=== PATIENT | female | born 2000 | race Caucasian/White ===

== ENCOUNTER 2022-10-20 20:20 | Outpatient (REF) | payer OTHER, SELFPAY ==
[2022-10-23 16:09] LABS: Age Gdln ACOG Testing Note (.); IGP, rfx Aptima HPV ASCU Note (.)
== END 2022-10-20 20:21 | disposition home or self-care (01) ==
LOC: LAB 20:20
PROVIDERS: PCP Obstetrics & Gynecology; Visit Provider Obstetrics & Gynecology
DX: Z01.419 Encounter for gynecological examination (general) (routine) without abnormal findings (principal)
CPT/HCPCS: G0145

== ENCOUNTER 2022-12-20 08:44 | Outpatient (OUT) | payer OTHER, SELFPAY ==
[2022-12-20 10:04] LABS: Glucose 1 Hour 102 mg/dL
== END 2022-12-20 08:45 | disposition home or self-care (01) ==
LOC: LAB 08:44
PROVIDERS: PCP Obstetrics & Gynecology; Visit Provider Obstetrics & Gynecology
DX: Z34.92 Encounter for supervision of normal pregnancy, unspecified, second trimester (principal)
CPT/HCPCS: 36415; 82950

== ENCOUNTER 2023-01-12 08:31 | Outpatient (OUT) | payer OTHER, SELFPAY ==
--- NOTE | 2023-01-12 08:34 | US_ITS ---
The [address] [address] Patient Name: ANAND PERALES MRN: [id number] date: 2000 Sex: F Assigned Patient Location: US Current Patient Location: Accession/Order Number: [id number] Exam Date: 01/12/2023 08:35 Report Date: 01/12/2023 16:57 At the request of: SILAS VELIZ Procedure: US OB cervical length EXAMINATION: US OB cervical length HISTORY: HISTORY OF LABOR COMPARISON: No relevant comparison available. FINDINGS: position: Cephalic presentation, longitudinal lie Cervix: Closed, 4.2 cm US/US OB cervical length IMPRESSION: Closed cervix measuring 4.2 cm in length Electronically authenticated by: JESS NICOLE Date: 01/12/2023 16:57
== END 2023-01-12 08:32 | disposition home or self-care (01) ==
LOC: US 08:31
PROVIDERS: PCP Obstetrics & Gynecology; Visit Provider Obstetrics & Gynecology
DX: O09.899 Supervision of other high risk pregnancies, unspecified trimester (principal); Z3A.00 Weeks of gestation of pregnancy not specified
CPT/HCPCS: 76817

== ENCOUNTER 2023-01-26 10:23 | Outpatient (OUT) | payer OTHER, SELFPAY ==
--- NOTE | 2023-01-26 10:30 | US_ITS ---
[place] [id number] Patient Name: ANAND PERALES MRN: [id number] date: 2000 Sex: F Assigned Patient Location: US Current Patient Location: Accession/Order Number: [id number] Exam Date: 01/26/2023 10:30 Report Date: 01/26/2023 17:31 At the request of: SILAS VELIZ Procedure: US OB cervical length EXAMINATION: US OB cervical length HISTORY: HISTORY OF DELIVERY COMPARISON: 01/12/2023 FINDINGS: position: Cephalic presentation, longitudinal lie Cervix: 4.4 cm, closed US/US OB cervical length IMPRESSION: Closed cervix measuring 4.4 cm in length Electronically authenticated by: JESS NICOLE Date: 01/26/2023 17:31
== END 2023-01-26 10:24 | disposition home or self-care (01) ==
LOC: US 10:24
PROVIDERS: PCP Obstetrics & Gynecology; Visit Provider Obstetrics & Gynecology
DX: O09.899 Supervision of other high risk pregnancies, unspecified trimester (principal); Z3A.00 Weeks of gestation of pregnancy not specified
CPT/HCPCS: 76817

== ENCOUNTER 2023-02-01 11:30 | Outpatient (OUT) | payer OTHER, SELFPAY ==
[2023-02-01 11:41] VITALS: BP 124/75; PULSE 111
[2023-02-01 12:05] LABS: Bilirubin Urine NEGATIVE (NEGATIVE); Blood Urine TRACE-I (NEGATIVE); Clarity Urine CLEAR (CLEAR); Color Urine LT. YELLOW (YELLOW); Glucose Urine UA NEGATIVE (NEGATIVE); Ketones Urine NEGATIVE (NEGATIVE); Leukocyte Esterase Urine NEGATIVE (NEGATIVE); Nitrite Urine NEGATIVE (NEGATIVE); Protein Urine NEGATIVE (NEG/TRACE); Urobilinogen Urine 0.2 EU/dL (0.2-1.0)
[2023-02-01 12:09] LABS: Urine Microscopic Indicated YES
[2023-02-01 12:13] LABS: WBC Urine NONE SEEN #/HPF (NONE SEEN)
[2023-02-01 12:14] LABS: Bacteria Urine NONE SEEN #/HPF (NONE SEEN); Cast Seen? NONE SEEN #/LPF (NONE SEEN); Crystals Seen? None Seen #/HPF (None Seen); Mucus Urine TRACE (NONE SEEN); Squamous Epithelial Cell Urine RARE #/LPF (NONE/RARE); Urine Culture Indicated NO
--- NOTE | 2023-02-01 12:38 | US_ITS ---
[address] [address] Patient Name: ANAND PERALES MRN: [id number] date: 2000 Sex: F Assigned Patient Location: [facility] Current Patient Location: [facility] [place] Accession/Order Number: [id number] Exam Date: 02/01/2023 12:50 Report Date: 02/02/2023 02:20 At the request of: DOUG MENDOZA Procedure: US OB cervical length EXAMINATION: US OB placenta, US OB cervical length HISTORY: Bleeding COMPARISON: Ultrasound OB cervical length 01/26/2023 FINDINGS: PLACENTA: Posterior, grade 1. No evidence of abruption or subchorionic hematoma. No previa. CERVIX LENGTH: 4.1 cm in length, closed. HEART RATE: 154 bpm OTHER: None. GA: 30 weeks 4 days OTF: 04/08/2023 US/US OB cervical length IMPRESSION: 1. Single live intrauterine . 2. Unremarkable placenta. No acute or suspicious findings to account for patient's symptoms. 3. Closed cervix 4.1 cm in length. Electronically authenticated by: BILLIE SMITH Date: 02/02/2023 02:20
--- NOTE | 2023-02-01 12:38 | US_ITS ---
[address] [address] Patient Name: ANAND PERALES MRN: [id number] date: 2000 Sex: F Assigned Patient Location: [facility] [place] [facility] [place]Order Number: [id number] Exam Date: 02/01/2023 12:50 Report Date: 02/02/2023 02:20 At the request of: DOUG MENDOZA Procedure: US OB placenta EXAMINATION: US OB placenta, US OB cervical length HISTORY: Bleeding COMPARISON: Ultrasound OB cervical length 01/26/2023 FINDINGS: PLACENTA: Posterior, grade 1. No evidence of abruption or subchorionic hematoma. No previa. CERVIX LENGTH: 4.1 cm in length, closed. HEART RATE: 154 bpm OTHER: None. GA: 30 weeks 4 days OTF: 04/08/2023 US/US OB placenta IMPRESSION: 1. Single live intrauterine . 2. Unremarkable placenta. No acute or suspicious findings to account for patient's symptoms. 3. Closed cervix 4.1 cm in length. Electronically authenticated by: BILLIE SMITH Date: 02/02/2023 02:20
--- NOTE | 2023-02-01 12:38 | US_ITS ---
[address] [address] Patient Name: ANAND PERALES MRN: [id number] date: 2000 Sex: F Assigned Patient Location: [facility] Current Patient Location: Accession/Order Number: [id number] Exam Date: 02/01/2023 12:50 Report Date: 02/02/2023 02:16 At the request of: DOUG MENDOZA Procedure: US OB BPP w non-stress EXAMINATION: US OB BPP w non-stress HISTORY: Bleeding COMPARISON: Ultrasound OB cervical length 01/12/2023 TECHNIQUE: Ultrasound biophysical profile was performed in the radiology department. BREATHING MOVEMENTS: 2.0 GROSS BODY MOVEMENTS: 2.0 TONE: 2.0 QUALITATIVE AMNIOTIC FLUID VOLUME: 2.0 PRESENTATION: BREECH HEART RATE: 154.3 bpm bpm. AMNIOTIC FLUID VOLUME: 18.5 cm GESTATIONAL AGE: 30 weeks 4 days CONCLUSION: Total biophysical profile score 8.0. Electronically authenticated by: BILLIE SMITH Date: 02/02/2023 02:16
--- NOTE | 2023-02-01 13:13 | P.PN_ITS ---
Progress Note: Subjective Subjective Interval history: S/P DISCHARGE THURSDAY AFTER VAGINAL DELIVERY. SENT HOME ON NIFEDIPINE 10 MG TID. RETURNED TODAY FOR BLOOD PRESSURE CHECK. HAS HEADACHER 9 OUT OF 10. IMPROVED WITH MOTRIN. P:C RATIO .3. BLOOD PRESSURE 140'S 90's. HAVE SWITCHED HER BACK TO LABETALOL BECAUSE DOES NOT GET HEADACHES ON LABETALOL AND BELIEVES NIFEDIPINE WAS INITIATING HEADACHE. ALSO, BETTER BLOOD PRESSURE CONTROL ON LABETALOL. HAS SIGNIFICANT DEPENDENT EDEMA WHICH AGAIN CAN COME FROM NIFEDIPINE. EDEMA IMPROVED FROM YESTERDAY. WILL START 24 HOUR URINE FOR TOTAL PROTEIN AND CREATININE CLEARANCE TO DETERMINE IF HAS SIGNIFICANT PROTEINURIA REQUIRING NEPHROLOGY CONSULT IF PIH WORKUP NOW IS NEGATIVE. REFLEXES NORMAL. VISION NORMAL. NO RUQ PAIN. NO NON DEPENDENT EDEMA. IS PUMPING AND BABY GETTING EXCLUSIVELY BREAST MILK. Exam Constitutional Vital Signs, click to edit/add: Last Vital Signs Pulse 111 H 02/01/23 11:41 BP 124/75 02/01/23 11:41 Documenting provider has reviewed patient's vital signs: yes Common normals: no apparent distress, oriented x3, healthy appearing, alert and well nourished General appearance: cooperative and comfortable Nutritional appearance: overweight HENID Common normals: normocephalic and head/scalp atraumatic Eye Pupil: PERRL and accommodation reflex normal Neck & C-Spine Common normals: full ROM and supple Respiratory Common normals: normal respiratory effort Cardio Common normals: regular rate and regular rhythm GI Common normals: Normal to inspection, nondistended, normoactive bowel sounds present Common normals: no CVA tenderness Extremity Common normals: full ROM and no calf tenderness General: edema (DEPENDENT, SIGNIFICANT BUT IMPROVED SINCE YESTERDAY) Neuro Common normals: CN's II-XII intact bilaterally, moves all extremities, no focal motor deficits and no sensory deficits noted Psych Common normals: mental status grossly normal, thought process normal, cooperative and affect normal Progress Note: Objective Labs Labs: Urine 02/01/23 Range/Units 11:50 Urine Color Lt. yellow (YELLOW) Urine Clarity Clear (CLEAR) Urine pH 7.0 (5.0-9.0) Ur Specific [place] 1.010 (1.005-1.025) Urine Protein Negative (NEG/TRACE) mg/dL Urine Glucose (UA) Negative (NEGATIVE) mg/dL
== END 2023-02-01 13:40 | disposition home or self-care (01) ==
LOC: FBCO 11:35 → FBC 11:35
PROVIDERS: PCP Obstetrics & Gynecology; Visit Provider Obstetrics & Gynecology
DX: O26.853 Spotting complicating pregnancy, third trimester (principal); Z3A.30 30 weeks gestation of pregnancy
CPT/HCPCS: 59025; 76815; 76817; 76818; 80053; 81001; 83615; 84550; 85730

== ENCOUNTER 2023-02-09 12:43 | Outpatient (OUT) | payer OTHER, SELFPAY ==
--- NOTE | 2023-02-09 12:50 | US_ITS ---
[address] [address] Patient Name: ANAND PERALES MRN: [id number] date: 2000 Sex: F Assigned Patient Location: US Current Patient Location: US Accession/Order Number: [id number] Exam Date: 02/09/2023 13:00 Report Date: 02/09/2023 16:38 At the request of: SILAS VELIZ Procedure: US OB growth EXAMINATION: US OB growth HISTORY: SIZE INCONSISTENT WITH DATES COMPARISON: No relevant comparison available. FINDINGS: Heart Rate: 161.0 bpm Amniotic Fluid Volume: 18.0 cm Number: 1.0 Position: Cephalic presentation, longitudinal lie Maximum Vertical Pocket: 4.4 cm cm 4.9 cm cm 4.4 cm cm 4.3 cm cm BIOMETRY: BPD: 8.2 cm cm; 33 weeks 1 days; 80% HC: 30.0 cmcm; 33 weeks 2 days, 55% AC: 28.9 cm cm; 32 weeks 6 days, 80% FL: 6.2 cm cm; 32 weeks 2 days; 51.0 % % EFW: 2039.5 grams, 4 lbs. 8 oz., 73% FL/AC: 21.6 FL/BPD: 75.6 HC/AC: 1.0 GESTATIONAL AGE: Age by EDC: 31 weeks 5 days OTF by EDC: 04/08/2023 Age by US: 32 weeks 6 days OTF by US: 03/31/2023 US/US OB growth IMPRESSION: Normal interval growth Electronically authenticated by: JESS NICOLE Date: 02/09/2023 16:38
== END 2023-02-09 12:44 | disposition home or self-care (01) ==
LOC: US 12:43
PROVIDERS: PCP Obstetrics & Gynecology; Visit Provider Obstetrics & Gynecology
DX: O26.843 Uterine size-date discrepancy, third trimester (principal); Z3A.32 32 weeks gestation of pregnancy
CPT/HCPCS: 76816

== ENCOUNTER 2023-02-25 13:01 | Outpatient (OUT) | payer OTHER, SELFPAY ==
--- NOTE | 2023-02-25 13:10 | US_ITS ---
The [address] [address] Patient Name: ANAND PERALES MRN: [id number] date: 2000 Sex: F Assigned Patient Location: US Current Patient Location: Accession/Order Number: [id number] Exam Date: 02/25/2023 13:10 Report Date: 02/25/2023 16:51 At the request of: SILAS VELIZ Procedure: US OB cervical length EXAMINATION: US OB cervical length HISTORY: HISTORY OF PRE TERM DELIVERY COMPARISON: No relevant comparison available. FINDINGS: position: Cephalic Cervix: 3.4 cm, closed US/US OB cervical length IMPRESSION: The cervix measuring 3.4 cm in length Electronically authenticated by: JESS NICOLE Date: 02/25/2023 16:51
== END 2023-02-25 13:02 | disposition home or self-care (01) ==
LOC: US 13:02
PROVIDERS: PCP Obstetrics & Gynecology; Visit Provider Obstetrics & Gynecology
DX: O09.899 Supervision of other high risk pregnancies, unspecified trimester (principal)
CPT/HCPCS: 76817

== ENCOUNTER 2023-03-09 19:40 | Observation (INO) | payer OTHER, SELFPAY ==
[2023-03-09 19:54] VITALS: BP 127/68; PULSE 100
[2023-03-09 20:05] VITALS: TEMP 36.3
[2023-03-09 20:31] LABS: Bilirubin Urine NEGATIVE (NEGATIVE); Blood Urine NEGATIVE (NEGATIVE); Clarity Urine CLEAR (CLEAR); Color Urine LT. YELLOW (YELLOW); Glucose Urine UA NEGATIVE (NEGATIVE); Ketones Urine NEGATIVE (NEGATIVE); Leukocyte Esterase Urine SMALL (NEGATIVE); Nitrite Urine NEGATIVE (NEGATIVE); Protein Urine NEGATIVE (NEG/TRACE); Specific Gravity Urine <=1.005 (1.005-1.025); Urobilinogen Urine 0.2 EU/dL (0.2-1.0)
[2023-03-09 20:39] VITALS: BP 117/60; PULSE 83
[2023-03-09 20:39] LABS: Urine Microscopic Indicated YES
[2023-03-09 20:41] LABS: Bacteria Urine NONE SEEN #/HPF (NONE SEEN); Cast Seen? NONE SEEN #/LPF (NONE SEEN); Crystals Seen? None Seen #/HPF (None Seen); Mucus Urine NONE SEEN (NONE SEEN); RBC Urine 0-2 #/HPF (0-2); Squamous Epithelial Cell Urine RARE #/LPF (NONE/RARE); Urine Culture Indicated NO
[2023-03-09 21:00] LABS: Creatinine Urine Random 18.45 mg/dL (20.00-300.00); Protein Creatinine Ratio Urine 0.33; Total Protein Urine Random <6.0 mg/dL (<=11.9)
[2023-03-09 22:25] LABS: Basophils Percent Auto 0.3 % (0.2-2.0); Eosinophils Absolute Auto 0.1 10^3/uL (0.0-0.7); Eosinophils Percent Auto 0.8 % (0.9-7.0); Hematocrit 31.3 % (36.0-48.0); Hemoglobin 10.3 g/dL (12.0-16.0); Immature Granulocytes Abs Auto 0.04 10^3/uL (0.00-0.03); Immature Granulocytes Pct Auto 0.6 % (0.0-0.5); Lymphocytes Absolute Auto 1.1 10^3/uL (1.2-3.8); Lymphocytes Percent Auto 17.7 % (20.5-60.0); Mean Corpuscular HGB Conc 32.9 g/dL (29.9-35.2); Mean Corpuscular Hemoglobin 30.8 pg (26.7-34.0); Mean Corpuscular Volume 93.7 fL (81.0-99.0); Mean Platelet Volume 9.5 fL (9.5-13.5); Monocytes Absolute Auto 0.7 10^3/uL (0.3-0.8); Monocytes Percent Auto 10.4 % (1.7-12.0); Neutrophils Absolute Auto 4.4 10^3/uL (1.4-6.5); Neutrophils Percent Auto 70.2 % (43.0-75.0); Platelet Count 225 10^3/uL (150-450); Red Blood Count 3.34 10^6/uL (4.20-5.40); Red Cell Distribution Width 13.3 % (11.0-15.0); White Blood Count 6.3 10^3/uL (4.0-11.0)
[2023-03-09 22:35] LABS: Uric Acid 3.2 mg/dL (2.6-6.0)
[2023-03-09 22:38] LABS: Alanine Aminotransferase 21 U/L (14-59); Albumin Globulin Ratio 0.6; Albumin Level 2.5 g/dL (3.4-5.0); Alkaline Phosphatase 101 U/L (46-116); Anion Gap 10.5; Aspartate Amino Transferase 28 U/L (15-37); BUN Creatinine Ratio 6.8; Bilirubin Total 0.2 mg/dL (0.2-1.0); Calcium 9.1 mg/dL (8.5-10.1); Carbon Dioxide 24.9 mmol/L (21.0-32.0); Chloride 104 mmol/L (98-107); Estimated GFR (African America >60 (>=60); Estimated GFR (Non-African Ame >60 (>=60); Globulin 4.1 g/dL; Glucose 65 mg/dL (74-106); Potassium 3.4 mmol/L (3.5-5.1); Sodium 136 mmol/L (136-145); Total Protein 6.6 g/dL (6.4-8.2)
[2023-03-09 23:13] VITALS: BP 118/70; PULSE 81; RESP 18; TEMP 36.7
[2023-03-09] MEDS: ACETAMINOPHEN 500 MG TABLET 1000 MG PO (23:17)
[2023-03-09] MEDS: ZOLPIDEM TARTRATE 5 MG TABLET PO (23:17)
[2023-03-10 04:25] VITALS: BP 108/56; PULSE 88; RESP 16; TEMP 36.6
--- NOTE | 2023-03-10 07:26 | W.PC.ACHO ---
Registration Status: ADM [place] Primary Language: Preferred Language: Report given 0705 to Tarsha Sung RN. Active Medications Generic Name Dose Route Start Last Admin Trade Name Freq PRN Reason Stop Dose Admin Acetaminophen 1,000 mg 03/09/23 21:13 03/09/23 23:17 Acetaminophen 500 Mg Tablet PO 1,000 mg Q4H PRN Administration Pain Zolpidem Tartrate 5 mg 03/09/23 21:13 03/09/23 23:17 Zolpidem Tartrate 5 Mg Tablet PO 5 mg HS PRN Administration Sleep IV Insertion/Site Date of IV Line Insertion [ 03/09/23 Short PIV (<1.75 in) 20g right Hand] IV Insertion Time [Short PIV ( 22:00 <1.75 in) 20g right Hand]
--- NOTE | 2023-03-10 08:36 | US_ITS ---
[address] [address] Patient Name: ANAND PERALES MRN: [id number] date: 2000 Sex: F Assigned Patient Location: [facility] Current Patient Location: Accession/Order Number: [id number] Exam Date: 03/10/2023 08:45 Report Date: 03/10/2023 10:22 At the request of: SILAS VELIZ Procedure: US OB growth EXAMINATION: US OB growth HISTORY: h/o delivery, severe PRE-E COMPARISON: Ultrasound OB growth 02/09/2023 FINDINGS: Heart Rate: 135.7 bpm Number: 1.0 Position: CEPHALIC Amniotic Fluid Volume: 11.8 cm Maximum Vertical Pocket: 4.0 cm BIOMETRY: BPD: 9.3 cm cm; 37 weeks 5 days; 94% HC: 34.3 cmcm; 39 weeks 4 days ; 95% AC: 32.4 cm cm; 36 weeks 2 days; 73% FL: 6.8 cm cm; 34 weeks 6 days; 20% EFW: 2938.8 grams; 67% FL/AC: 20.9 FL/BPD: 73.1 HC/AC: 1.1 GESTATIONAL AGE: Age by EDC: 35 weeks 6 days OTF by EDC: 04/08/2023 Age by US: 37 weeks 1 day OTF by US: 03/30/2023 US/US OB growth IMPRESSION: 1. Single live intrauterine with growth detailed above. Electronically authenticated by: BILLIE SMITH Date: 03/10/2023 10:22
--- NOTE | 2023-03-10 08:36 | US_ITS ---
[place] [id number] Patient Name: ANAND PERALES MRN: [id number] date: 2000 Sex: F Assigned Patient Location: [facility] Current Patient Location: [facility] Accession/Order Number: [id number] Exam Date: 03/10/2023 08:45 Report Date: 03/10/2023 10:23 At the request of: SILAS VELIZ Procedure: US OB BPP wo non-stress EXAMINATION: US OB BPP wo non-stress HISTORY: h/o delivery, severe PRE-E COMPARISON: Ultrasound OB growth 02/09/2023 TECHNIQUE: Ultrasound biophysical profile was performed in the radiology department. BREATHING MOVEMENTS: 2.0 GROSS BODY MOVEMENTS: 2.0 TONE: 2.0 QUALITATIVE AMNIOTIC FLUID VOLUME: 2.0 PRESENTATION: CEPHALIC HEART RATE: 135.7 bpm bpm. AMNIOTIC FLUID VOLUME: 11.8 cm GESTATIONAL AGE: 35 weeks 6 days CONCLUSION: Total biophysical profile score 8.0. Electronically authenticated by: BILLIE SMITH Date: 03/10/2023 10:23
[2023-03-10] MEDS: BETAMETHASONE ACE/BETAMETHASONE SOD PHOS 30 MG/5 ML 12 MG IM (08:57)
--- OUTSIDE RECORDS SUMMARY | 2023-04-14 19:24 | XMS_ITS | CCD ---
Author Name Unknown Address [address] [address] [place] [address] Organization [facility] Care Team Providers Care Leak Inspector Name Role Phone Unavailable Primary Care Provider Unavailabl Baljit Grant Primary Care Physician Baljit Watts MD Primary Care Provider JC ., DR ROSEN Admitting Unavailable JC ., DR ROSEN Attending Unavailable JC ., DR ROSEN Consulting Unavailable ZieberBillie Consulting Unavailable REQUEST, DR MCGUIRE LISTED Consulting Unavaila ble JC ., DR ROSEN Consulting Unavailable JC ., DR ROSEN Admitting [facility] Primary Care Unavailable JC ., DR ROSEN Attending Unavailable ELCO, KELL Attending Unavailable Jc, Dr. Marco A Zavaleta Referring Unavail able UNKNOWN, PCP Primary Care Unavailable UNKNOWN, PCP Primary Care Unavailable Jc, Dr. Marco A Zavaleta Referring Unavail able Danielle, Dr. Jess Agee Attending Unav ailable Nakul Cannon Attending Unavailable Ozzy Martinez Attending Unavailable Ozzy Martinez Admitting Unavailable LATANYA GUNN Attending Unavailable VELIA, LATANYA Attending Unavailable LATANYA GUNN Attending Unavailable Medications Current Medications Medication Drug Class(es) Dates Sig (Normalized) Sig (Original) acetaminophen 325 mg oral tablet (1 source) Start: 04-26-2020 take 650 mg by mouth every six hours as needed for pain, then take 4000 mg by mouth every twenty-four hours as needed for pain 650 mg, Oral, EVERY 6 HOURS PRN, Pain Mild (1-3), Starting Vilma 04/26/20 at 0421 Maximum dose of acetaminophen is 4000 mg from all sources in 24 hours. amoxicillin 875 mg oral tablet (5 sources) Penicillin-class Antibacterial Start: 10-14-2022 End: 10-24-2022 take 1 tablet by mouth twice daily amoxicillin 875 mg Tab 875 mg = 1 tab(s), Oral, BID, X 10 day(s), # 20 tab(s), Refills(s) 0, Pharmacy: [facility]/pharmacy #[id number], 164, cm, 10/14/22 12:30:00 EDT, Height/Length Dosing, 66, kg, 10/14/22 12:30:00 EDT, Weight Dosing Start Date: 10/14/22 Stop Date: 10/24/22 Status: Ordered Start: 10-31-2021 take 1 capsule by [facility] every twelve hours amoxicillin 500 mg Cap 500 mg = 1 cap(s), Oral, q12hr, # 20 cap(s), Refills(s) 0, Pharmacy: [facility]/pharmacy #[id number], 165, cm, 10/31/21 12:19:00 EDT, Height/Length Dosing, 63, kg, 10/31/21 12:19:00 EDT, Weight Dosing Start Date: 10/31/21 Status: Ordered aspirin 81 mg chewable tablet (1 source) Platelet Aggregation Inhibitor, Nonsteroidal Anti-inflammatory Drug Start: 01-31-2023 take 1 tablet by mouth once daily aspirin 81 mg Chew Tab 81 mg = 1 tab(s), Oral, Daily, # 30 tab(s), Refills(s) 0 Start Date: 01/31/23 Status: Ordered calcium chloride 0.0014 meq/ml / potassium chloride 0.004 meq/ml / sodium chloride 0.103 meq/ml / sodium lactate 0.028 meq/ml injectable solution (2 sources) Start: 04-26-2020 lactated ringers infusion Start: 04-25-2020 End: 04-26-2020 Intravenous, at 125 mL/hr, C ONTINUOUS, Starting 04/25/20 at 1615 1 ml diphenhydrAMINE hydrochloride 50 mg/ml cartridge (1 source) Histamine-1 Receptor Antagonist Start: 04-26-2020 25 mg, Intravenous, EVERY 6 HOURS PRN, Itching, Hives, Starting Vilma 04/26/20 at 0421, docusate sodium 100 mg oral capsule (1 source) Start: 04-26-2020 take 100 mg by mouth twice daily as needed for constipation 100 mg, Oral, 2 TIMES DAILY PRN, Constipation, Starting Vilma 04/26/20 at 0421 Do not crush or break. ferrous sulfate 325 mg oral tablet (2 sources) Start: 04-28-2020 take 1 tablet by mouth twice daily at mealtime ferrous sulfate (IRON 325) 325 (65 Fe) MG tablet Take 1 tablet by mouth 2 times daily (with meals) 30 tablet 3 04/28/2020 Active Start: 04-26-2020 take 325 mg by mouth twice daily at mealtime 325 mg, Oral, 2 TIMES DAILY WITH MEALS, First dose on Vilma 04/26/20 at 0800 Start if Hgb less than 10. HYDROmorphone (DILAUDID) injection 0.25 mg (1 source) Start: 04-26-2020 HYDROmorphone (DILAUDID) injection 0.25 mg ibuprofen 600 mg oral tablet (2 sources) Nonsteroidal Anti-inflammatory Drug Start: 04-28-2020 take 1 tablet by mouth every six hours ibuprofen (ADVIL;MOTRIN) 600 MG tablet Take 1 tablet by mouth every 6 hours 120 tablet 3 04/28/2020 Active Start: 04-26-2020 take 600 mg by mouth every six hours 600 mg, Oral, EVERY 6 HOURS, First dose on Vilma 04/26/20 at 0445 Do not crush or chew. lansinoh lanolin ointment (1 source) Start: 04-26-2020 Topical, EVERY 1 HOUR PRN, Dry Skin, nipple discomfort, Starting Vilma 04/26/20 at 0421, lisdexamfetamine dimesylate 40 mg oral capsule (5 sources) Central Nervous System Stimulant Start: 01-31-2023 take 1 capsule by mouth once daily in the morning Vyvanse 40 mg oral capsule 40 mg = 1 cap(s), Oral, qAM, Refills(s) 0 Start Date: 01/31/23 Status: Ordered Start: 04-01-2020 take 1 capsule by mo uth once daily in the morning Vyvanse 60 mg oral capsule 60 mg = 1 cap(s), Oral, qAM, Refills(s) 0 Start Date: 04/01/20 Status: Ordered 24 hr NIFEdipine 30 mg extended release oral tablet (2 sources) Dihydropyridine Calcium Channel Scot Start: 04-29-2020 take 1 tablet by mouth once daily NIFEdipine (ADALAT CC) 30 MG extended release tablet Take 1 tablet by mouth daily 30 tablet 3 04/29/2020 Active Start: 04-26-2020 NIFEdipine (KS OCARDIA XL) extended release tablet 30 mg 2 ml ondansetron 2 mg/ml injection (1 source) Serotonin-3 Receptor Antagonist Start: 04-26-2020 4 mg, Intravenous, EVERY 6 HOURS PRN, Nausea, Starting Vilma 04/26/20 at 0421, oxyCODONE (1 source) Opioid Agonist Start: 04-26-2020 oxyCODONE (ROXICODONE) immediate release tablet 5 mg pantoprazole (1 source) Proton Pump Inhibitor Start: 01-31-2023 pantoprazole Refills(s) 0 Start Date: 01/31/23 Status: Ordered polyethylene glycol 3350 03205 mg powder for oral solution (1 source) Osmotic Laxative Start: 04-27-2020 polyethylene glycol (GLYCOLAX) packet 17 g PreNata 29-1 MG CHEW (1 source) take 1 tablet by mouth once daily PreNata 29-1 MG CHEW Take 1 tablet by mouth daily 0 Active Multivitamins (1 source) Start: 01-31-2023 take 1 tablet by mouth once daily Multivitamins 1 tab(s), Oral, Daily, Refill(s) 0 Start Date: 01/31/23 Status: Ordered Vit-Fe Fumarate-FA ( VITAMIN) 27-1 MG TABS tablet (1 source) Start: 04-28-2020 take 1 tablet by mouth once daily Vit-Fe Fumarate-FA ( VITAMIN) 27-1 MG TABS tablet Take 1 tablet by mouth daily 30 tablet 0 04/28/2020 Active vitamin 27-1 MG tablet 1 tablet (1 source) Start: 04-26-2020 take 1 tablet by mouth once daily 1 tablet, Oral, DAILY, First dose on Vilma 04/26/20 at 0900 Begin when normal bowel activity resumes. progesterone 200 mg vaginal suppository (1 source) Start: 01-31-2023 progesterone 200 mg vaginal suppository 200 mg = 1 supp, Vaginal, Daily, # 30 supp, Refills(s) 0 Start Date: 01/31/23 Status: Ordered simethicone 80 mg chewable tablet (1 source) Start: 04-26-2020 take 80 mg by mouth every six hours as needed 80 mg, Oral, EVERY 6 HOURS PRN, Cramping, Flatulence, Starting Vilma 04/26/20 at 0421, 3 ml sodium chloride 9 mg/ml injection (4 sources) Start: 04-26-2020 10 mL, Intravenous, EVERY 12 HOURS SCHEDULED (2 times per day), First dose on Vilma 04/26/20 at 0900, Start: 04-26-2020 take 10 mL intravenous route o nce 10 mL, Intravenous, PRN, Line Care, Starting Vilma 04/26/20 at 0421 After every IV line use Start: 04-26-2020 End: 04-27-2020 sodium chloride flush 0.9 % injection 10 mL sulfamethoxazole 800 mg / trimethoprim 160 mg oral tablet (1 source) Dihydrofolate Reductase Inhibitor Antibacterial, Sulfonamide Antimicrobial Start: 10-31-2021 End: 11-10-2021 Bactrim D.S. 800 mg-160 mg Tab 1 tab(s), Oral, BID for 10 day(s), 20 tab(s), Refill(s) 0, [facility]/pharmacy #[id number], 165, cm, 10/31/21 12:19:00 EDT, Height/Length Dosing, 63, kg, 10/31/21 12:19:00 EDT, Weight Dosing Start Date: 10/31/21 Stop Date: 11/10/21 Status: Ordered Completed/Discontinued Medications Medication Drug Class(es) Dates Sig (Normalized) Sig (Original) betamethasone 3 mg/ml / betamethasone acetate 3 mg/ml injectable suspension (1 source) Corticosteroid Start: 04-25-2020 End: 04-25-2020 betamethasone acetate-betamethason e sodium phosphate (CELESTONE) injection 12 mg Start: 04-25-2020 End: 04-25-2020 betamethasone acetate-betame thasone sodium phosphate (CELESTONE) injection 12 mg ceFAZolin 2000 mg injection (2 sources) Cephalosporin Antibacterial Start: 04-26-2020 End: 04-26-2020 ceFAZolin (ANCEF) 2 g in dextrose 4 % 100 mL IVPB (premix) Start: 04-25-2020 End: 04-26-2020 ceFAZolin (ANCEF) 2-4 GM/100 ML-% IVPB (premix) SOLN citric acid 66.8 mg/ml / sodium citrate 100 mg/ml oral solution (2 sources) Calculi Dissolution Agent, Anti-coagulant Start: 04-26-2020 End: 04-25-2020 citric acid-sodium citrate (BICITRA) solution 30 mL Start: 04-25-2020 End: 04-25-2020 citric acid-sodium citrate ( BICITRA) 500-334 MG/5ML solution 1 ml ketorolac tromethamine 30 mg/ml cartridge (2 sources) Nonsteroidal Anti-inflammatory Drug, Cyclooxygenase Inhibitor Start: 04-26-2020 End: 04-27-2020 30 mg, Intravenous, EVERY 6 HOURS, First dose on Vilma 04/26/20 at 0445, For 24 hours Do not administer for more than 5 days. First dose should be administered 6 hours after anesthesia's administered dose in OR or PACU. Do NOT give with ibuprofen. Start: 04-26-2020 End: 04-26-2020 ketorolac (TORADOL) injectio n 60 mg 100 ml magnesium sulfate 40 mg/ml injection (2 sources) Start: 04-25-2020 End: 04-25-2020 4 g, Intravenous, at 300 mL/ hr, Administer over 20 Minutes, ONCE, 04/25/20 at 1615, For 1 dose Pre-Infusion: Assess baseline vital signs, breath sounds, oxygen saturation level, intake and output, and neurologic status (deep tendon reflexes, presence or absence of clonus, and level of consciousness (LOC). Vitals to include baseline temperature. Temperature to be reassessed every 4 hours if membranes are intact or every 2 hours if membranes have ruptured. Loading Dose/Infusion: Stay with the patient during the loading dose to monitor for adverse drug reactions. - Monitor pulse oximetry continuously throughout the infusion - Monitor vital signs, deep tendon reflexes, and LOC every 15 minutes for one hour, then every 30 minutes for one hour, then hourly while infusing Notify care provider immediately of absent deep tendon reflexes, a urine output of less than 30 mL/hour, respirations of less than 12 breaths/minute, or an oxygen saturation level of less than 90%. Start: 04-25-2020 End: 04-26-2020 2 g/hr (50 mL/hr), Intraveno us, at 50 mL/hr, CONTINUOUS, Starting 04/25/20 at 1615, For 48 hours Pre-Infusion: Assess baseline vital signs, breath sounds, oxygen saturation level, intake and output, and neurologic status (deep tendon reflexes, presence or absence of clonus, and level of consciousness (LOC), presence of headaches or visual disturbances, presence or absence of epigastric pain. Vitals to include baseline temperature. Temperature to be reassessed every 4 hours if membranes are intact or every 2 hours if membranes have ruptured. Loading Dose/Infusion: Stay with the patient during the loading dose to monitor for adverse drug reactions. - Monitor pulse oximetry continuously throughout the infusion - Monitor vital signs, deep tendon reflexes, and LOC every 15 minutes for one hour, then every 30 minutes for one hour, then hourly while infusing Notify care provider immediately of absent deep tendon reflexes, a urine output of less than 30 mL/hour, respirations of less than 12 breaths/minute, or an oxygen saturation level of less than 90%. oxytocin (PITOCIN) 30 units in 500 mL infusion Override Pull (1 source) Start: 04-25-2020 End: 04-26-2020 oxytocin (PITOCIN) 30 units in 500 mL infusion Override Pull Oxytocin-Sodium Chloride 30-0.9 UT/500ML-% SOLN (1 source) Start: 04-26-2020 End: 04-26-2020 Oxytocin-Sodium Chloride 30-0.9 UT/500ML-% SOLN prednisoLONE acetate 10 mg/ml ophthalmic suspension (4 sources) Corticosteroid Start: 11-07-2021 prednisoLONE a cetate (PRED FORTE, ECONOPRED PLUS) 1 % ophthalmic suspension Use 1 Drop in both eyes every hour. 10 mL 1 11/07/2021 Active Start: 11-01-2021 prednisoLONE a cetate (PRED FORTE, ECONOPRED PLUS) 1 % ophthalmic suspension Use 1 Drop in both eyes four times daily. 0 11/01/2021 Active Comment on above: Use 1 Drop in both e yes four times daily. Use 1 Drop in both e yes every hour. predniSONE 20 mg oral tablet (3 sources) Start: 11-01-2021 take 1 tablet by mouth once daily predniSONE (DELTASONE) 20 mg tablet Take 20 mg by mouth once daily. 0 11/01/2021 Active Start: 11-01-2021 End: 11-06-2021 take 3 tablets by mouth once daily predniSONE 20 mg Tab 60 mg = 3 tab(s), Oral, Daily, X 5 day(s), # 15 tab(s), Refills(s) 0, Pharmacy: [facility]/pharmacy #[id number], 165, cm, 11/01/21 8:11:00 EDT, Height/Length Dosing, 63, kg, 11/01/21 8:11:00 EDT, Weight Dosing Start Date: 11/01/21 Stop Date: 11/06/21 Status: Ordered Comment on above: Take 20 mg by mouth once daily. tobramycin 3 mg/ml ophthalmic solution (2 sources) Aminoglycoside Antibacterial Start: 10-30-2021 take 0.3 drop(s) into the eye(s) three times daily tobramycin (TOBREX) 0.3 % ophthalmic solution Use 0.3 Drops in both eyes three times daily. 0 10/30/2021 Active Comment on above: Use 0.3 Drops in bot h eyes three times daily. Problems Problem Classification Problem Date Documented Da te Episodic/Chronic Allergic reactions (2 sources) Allergic disposition; Translations: [Allergy, unspecified, initial encounter] Onset: 11-01-2021 Episodic Deficiency and other anemia (2 sources) Anemia due to blood loss; Translations: [Acute on chronic blood loss anemia] Onset: 04-27-2020 04-27-2020 Chronic Deficiency and other anemia (5 sources) Iron deficiency anemia 01-20-2019 Episodic E Codes: Struck by; against (1 source) Struck by falling object; Translations: [Other cause of strike by thrown, projected or falling object, initial encounter] Episodic Early or threatened labor (2 sources) Threatened premature labor - not delivered ; Translations: [Threatened labor, antepartum] Onset: 04-25-2020 Resolved: 04-28-2020 04-28-2020 Episodic Gastrointestinal hemorrhage (5 sources) Rectal hemorrhage 01-20-2019 Episodic Hypertension complicating ; childbirth and the puerperium (2 sources) Pre-eclampsia; Translations: [Pre-eclampsia in third trimester] Resolved: 04-28-2020 04-28-2020 Episodic Inflammation; infection of eye (except that caused by tuberculosis or sexually transmitteddisease) (3 sources) Viral conjunctivitis; Translations: [Viral conjunctivitis, unspecified] Onset: 11-14-2021 Episodic Menstrual disorders (4 sources) Irregular menstruation, unspecified; Translations: [IRREGULAR MENSTRUATION UNSPECIFIED] Onset: 09-04-2022 Chronic Open wounds of extremities (1 source) Laceration of right foot; Translations: [Laceration without foreign body, right foot, initial encounter] Onset: 10-14-2022 Episodic Other complications of (1 source) Supervision of other high risk pregnancies, first trimester; Translations: [Supervision of other high risk pregnancies, first trimester] Onset: 09-26-2022 Episodic Other female genital disorders (1 source) Abnormal uterine bleeding; Translations: [Abnormal uterine and vaginal bleeding, unspecified] Onset: 12-19-2021 Chronic Other and delivery including normal (2 sources) Encounter for supervision of other normal , first trimester; Translations: [Encounter for supervision of normal , unspecified, first trimester] Onset: 08-20-2022 Episodic Other screening for suspected conditions (not mental disorders or infectious disease) (2 sources) Encounter for suspected anomaly ruled out; Translations: [Encounter for screening for nuchal translucency] Onset: 09-26-2022 Episodic Superficial injury; contusion (2 sources) Contusion of foot; Translations: [Contusion of left foot, initial encounter] Onset: 09-18-2021 Episodic Unclassified (6 sources) Onset: 10-06-2019 Resolved: 08-25-2020 09-07-2020 Results Test Name Value Interpretation Reference Range Facil ity Nursing Assessmenton 023 Nursing Assessment [id number] Normal [facility] C Urineon 02-02-2023 Bacteria identified Cx Nom (U) Microbiology PROCEDURE: Urine Culture [R1] SOURCE: U CleanCatch BODY SITE: COLLECTED DATE/TIME: 01/31/2023 23:04 EDT RECEIVED DATE/TIME: 01/31/2023 23:39 EDT START DATE/TIME: 01/31/2023 23:39 EDT FREE TEXT SOURCE: Michelle PRETTY, Ozzy Martinez MD, Ozzy Malin FINAL REPORTS Final Report [] Verified Date/Time: 02/02/2023 06:45 EDT 1,000 cfu/ml Mixed skin contaminants Performing Locations R1: This test was performed at: [facility], [address] [place] [address], [address] , , Normal [facility] Comment on above: Performed By: #### 1 [id number], [id number], [id number], [id number] ####[address] [place] [address] ABO/Rhon 02-01-2023 ABO/Rh Positive Invalid Interpretation Code [facility] Comment on above: Performed By: #### 1 [id number], [id number], [id number] ####[facility] [address] [place] [address] ABSCon 02-01-2023 ABSC Gel Interp Negative Normal [facility] Comment on above: Performed By: #### 1 [id number], [id number], 1237102 ####[facility] [address] [place] [address] BUNon 02-01-2023 Urea nitrogen [Mass/Vol] 9 mg/dL Normal 5-21 [facility] Comment on above: Performed By: #### 2 773972, 5791208, 8241898, 53853072, 64988714, 0290520, 33965269, 5939394, 2267082, 0657242 ####[facility] [address] [place] [address] Blood Bank ID#on 02-01-2023 BBID# [id number] Invalid Interpretation Code [facility] Comment on above: Performed By: #### 1 [id number], [id number], [id number] ####[facility] [address] [place] [address] Buprenorphine Scr Uron 02-01 U Suboxone Scr Negative Normal Negative [facility] Comment on above: Result Comment: Nega tive Cutoff: <10 ng/mL These drug screen results are to be used for medical (i.e., treatment) purposes only. Unconfirmed drug screening results must not be used for non-medical purposes (e.g., employment testing, legal testing). Performed By: #### 1 [id number], [id number], 2919433, 2846712 ####[facility] [address] [place] [address] CBC w/Indiceson 02-01-2023 Erythrocyte distribution wid th (RBC) [Ratio] 14.4 % High 10.9-14.2 [facility] Comment on above: Performed By: #### 2 300624, 7703044, 7030128, 61472436, 44777025, 8601266, 30884474, 9212634, 1206988, 9752019 ####[facility] [address] [place] [address] Hematocrit (Bld) [Volume fraction] 32.9 % Low 3 4.0-46.0 [facility] Comment on above: Performed By: #### 2 859383, 0018378, 5614945, 01302809, 12268375, 7352049, 43323215, 8429277, 3367995, 2548992 ####[facility] [address] [place] [address] Hemoglobin (Bld) [Mass/Vol] 11.1 g/dL Low 12.0-16. 0 [facility] Comment on above: Performed By: #### 2 523438, 8683614, 3709185, 59253767, 47233660, 2450939, 68345020, 3908864, 0620058, 4097274 ####[facility] [address] [place] [address] MCH (RBC) [Entitic mass] 30.4 pg Normal 27.0-34.0 [facility] Comment on above: Performed By: #### 2 652710, 6106177, 1445065, 82034663, 64999405, 6419935, 44226400, 7454533, 5889546, 4343794 ####[facility] [address] [place] [address] MCHC (RBC) [Mass/Vol] 33.7 g/dL Normal 31.4-36.0 [facility] Comment on above: Performed By: #### 2 846900, 9517328, 3463574, 11278773, 86743758, 0954437, 08150808, 5501025, 8831817, 1662560 ####[facility] [address] [place] [address] MCV (RBC) [Entitic vol] 90.4 fL Normal 80.0-100.0 [facility] Comment on above: Performed By: #### 2 932100, 4402414, 6922063, 05234825, 96765925, 6864119, 67573939, 2372874, 5381892, 2420136 ####[facility] [address] [place] [address] Platelet mean volume (Bld) [Entitic vol] 7.4 fL Normal 6.4-10.8 [facility] Comment on above: Performed By: #### 2 647522, 6609670, 1268940, 86731942, 44179597, 1364409, 55737261, 8536806, 0925007, 6510984 ####[facility] [address] [place] [address] Platelets (Bld) [#/Vol] 317.0 E9/L Normal 150.0-500.0 [facility] Comment on above: Performed By: #### 2 402272, 3898539, 4787682, 58346170, 51995338, 2819524, 87735752, 5711298, 6350362, 3837543 ####[facility] [address] [place] [address] RBC (Bld) [#/Vol] 3.6 E12/L Low 4.3-5.9 [facility] Comment on above: Performed By: #### 2 262236, 2456973, 0614695, 43894568, 14945597, 2833419, 95636211, 9280367, 5177545, 4836009 ####[facility] [address] [place] [address] WBC corrected for nucl RBC A uto (Bld) [#/Vol] 8.2 E9/L Normal 4.0-11.0 [facility] Comment on above: Performed By: #### 2 942234, 2447491, 2021342, 47823386, 86104208, 6261823, 60914318, 3033573, 8413087, 1971837 ####[facility] [address] [place] [address] Consent for Treatmenton Consent for Treatment [id number] Normal [facility] Creatinineon 02-01-2023 Creatinine [Mass/Vol] 0.5 mg/dL Normal 0.5-1.3 [facility] Comment on above: Performed By: #### 2 188531, 2781125, 9103902, 95276202, 21574158, 0185770, 99540254, 9114023, 3047166, 9161341 ####[facility] [address] [place] [address] Delivery Summaryon 3 Delivery Summary [id number]#[id number] Normal [facility] Stainon 02-01-2023 FMHV 0 mL Invalid Interpretation Code [facility] Comment on above: Performed By: #### 2 325362, 5649311, 4421534, 00960150, 82282466, 5495110, 06520774, 8044596, 3882281, 2208834 ####[facility] [address] [place] [address] Negative Control Negative Normal [facility] Comment on above: Performed By: #### 2 030973, 9373506, 1943644, 88697383, 10833673, 7596690, 85752185, 2368140, 2152375, 7480176 ####[facility] [address] [place] [address] Fibrinogenon 02-01-2023 Fibrinogen Coag (PPP) [Mass/Vol] 409 mg/dL High 200 -393 [facility] Comment on above: Performed By: #### 2 528046, 2466273, 9999158, 51416054, 01488158, 0948653, 19300182, 4807716, 1359738, 8880299 ####[facility] [address] [place] [address] Hep Func Panelon 02-01-2023 Bilirubin.indirect [Mass or moles/Vol] UTC Abnormal 0.1-0.9 [facility] Comment on above: Result Comment: Resu lt verified by Discern Rule. Performed result UTC (Unable to Calculate) was sent as an Alpha code due the inability to calculate a valid numeric value. Performed By: #### 2 907264, 6157711, 8178770, 09720316, 71885712, 1736639, 27138755, 0334648, 1847674, 4743228 ####[facility] [address] [place] [address] Albumin [Mass/Vol] 3.0 g/dL Low 3.3-5.0 [facility] Comment on above: Performed By: #### 2 365621, 2880562, 7817633, 85378368, 20107069, 4039952, 68226453, 8101742, 8379884, 5892126 ####[facility] [address] [place] [address] Albumin/Globulin (S) [Mass conc ratio] 0.8 Low 1.1-2.2 [facility] Comment on above: Performed By: #### 2 855488, 2220886, 4057125, 58764265, 27610207, 2981812, 78066505, 9711416, 6969886, 8300731 ####[facility] [address] [place] [address] ALP [Catalytic activity/Vol] 66 Int._Unit/L Normal 21- 98 [facility] Comment on above: Performed By: #### 2 131861, 2185507, 1965114, 86234233, 10834299, 3831964, 26401249, 1962453, 2083367, 6383137 ####[facility] [address] [place] [address] ALT No additional P-5'-P [Catalytic activity/Vol] 16 Int._Unit/L Normal 6-46 [facility] Comment on above: Performed By: #### 2 345718, 9851286, 9007240, 99657669, 50179526, 6414629, 41821935, 0633458, 0585175, 1065886 ####[facility] [address] [place] [address] AST [Catalytic activity/Vol] 21 Int._Unit/L Normal 5-4 3 [facility] Comment on above: Performed By: #### 2 775621, 0029316, 5252011, 64584080, 80321739, 4625329, 12771226, 0071434, 3769914, 5703461 ####[facility] [address] [place] [address] Bilirubin [Mass/Vol] 0.3 mg/dL Normal 0.0-1.1 [facility] Comment on above: Performed By: #### 2 061757, 1382400, 7220638, 72485426, 33589107, 7475938, 90566328, 3443599, 9939495, 4867575 ####[facility] [address] [place] [address] Globulin (S) [Mass/Vol] 3.8 g/dL Normal 1.4-4.0 [facility] Comment on above: Performed By: #### 2 157084, 3719445, 3723152, 16096515, 77503641, 6938087, 76818604, 7560777, 7242661, 9955533 ####[facility] [address] [place] [address] Protein [Mass/Vol] 6.8 g/dL Normal 6.0-7.8 [facility] Comment on above: Performed By: #### 2 173699, 7653058, 6326050, 91679545, 89229316, 7821777, 33934893, 2005380, 6468768, 9333415 ####[facility] [address] [place] [address] Bilirubin.direct [Mass/Vol] mg/dL Normal 0.1-0.4 [facility] Comment on above: Performed By: #### 2 833267, 2261998, 2114493, 72223476, 96784431, 0142325, 04693959, 8593367, 4927216, 6127045 ####[facility] [address] [place] [address] Inpatient Clinical Summaryon 02-01-2023 Inpatient Clinical Summary [address] [address] Clinical Summary Person Information Name: ANAND HERRERA [facility] Age: 22 Years : 2000 Sex: Female PCP: Baljit Watts DO Marital Status: Single Race: White Ethnicity: Non- or Language: Belarusian Visit Id: Visit Reason: Speciality: Acuity: Obs Enc Type: OB Triage Med Service: Obstetrics Arrival: 01/31/2023 22:47:02 Discharge: 02/01/2023 02:47:00 Dispo Type: Home (Routine DC) Address: [address] [place] [id number] Provider Notes: Diagnosis: Problems Active (01/31/2023) Iron deficiency anemia Rectal hemorrhage Smoking Status: Former vaping or e-cigarette use Functional Status: Sensory Deficits: History of Falls: Mobility Assistance Prior to Admission: ADLs: Independent Current Level of Assistance for Self-Care/Mobility: Cognitive Status: Allergies No Known Allergies Laboratory or Other Results This Visit (last charted value for your 01/31/2023 visit) Hematology 02/01/2023 0:20 AM Hct: 32.9 % -- Normal range between ( 34.0 and 46.0 ) HGB: 11.1 gm/dL -- Normal range between ( 12.0 and 16.0 ) RBC: 3.6 E12/L -- Normal range between ( 4.3 and 5.9 ) RDW: 14.4 % -- Normal range between ( 10.9 and 14.2 ) MCH: 30.4 pg -- Normal range between ( 27.0 and 34.0 ) MCHC: 33.7 gm/dL -- Normal range between ( 31.4 and 36.0 ) MCV: 90.4 fL -- Normal range between ( 80.0 and 100.0 ) MPV: 7.4 fL -- Normal range between ( 6.4 and 10.8 ) Platelet: 317.0 E9/L -- Normal range between ( 150.0 and 500.0 ) WBC: 8.2 E9/L -- Normal range between ( 4.0 and 11.0 ) Coagulation 02/01/2023 0:20 AM INR: 0.9 Fibrinogen: 409 mg/dL -- Normal range between ( 200 and 393 ) PT: 9.7 second(s) -- Normal range between ( 9.4 and 12.5 ) PTT: 26.9 second(s) -- Normal range between ( 25.1 and 36.5 ) Urinalysis 01/31/2023 11:04 PM UA Bacteria: Trace /HPF UA Bili: Negative UA Color: Yellow UA Glucose: Negative UA Ketones: Negative UA Leuk Est: 1+ UA Nitrite: Negative UA Protein: Negative UA RBC: 0-3 /HPF UA Squam Epithelial: 0-2 /HPF UA Urobilinogen: 0.2 EU/dL -- Normal range between ( 0.0 and 1.0 ) UA WBC: 6-15 /HPF UA Spec Desc: Clean Catch UA Blood: 3+ UA Clarity: Clear UA pH: 7.0 -- Normal range between ( 5.0 and 9.0 ) UA Spec Grav: 1.010 -- Normal range between ( 1.005 and 1.030 ) Chemistry 02/01/2023 0:20 AM Creatinine: 0.5 mg/dL -- Normal range between ( 0.5 and 1.3 ) A/G Ratio: 0.8 -- Normal range between ( 1.1 and 2.2 ) AGAP: 5 mEq/L -- Normal range between ( 6 and 16 ) Albumin Lvl: 3.0 gm/dL -- Normal range between ( 3.3 and 5.0 ) Alk Phos: 66 Int._Unit/L -- Normal range between ( 21 and 98 ) ALT: 16 Int._Unit/L -- Normal range between ( 6 and 46 ) AST: 21 Int._Unit/L -- Normal range between ( 5 and 43 ) Bili Direct: <0.1 mg/dL -- Normal range between ( 0.1 and 0.4 ) Bili Total: 0.3 mg/dL -- Normal range between ( 0.0 and 1.1 ) CO2: 25 mmol/L -- Normal range between ( 21 and 31 ) Sodium Lvl: 136 mmol/L -- Normal range between ( 135 and 145 ) Total Protein: 6.8 gm/dL -- Normal range between ( 6.0 and 7.8 ) BUN: 9 mg/dL -- Normal range between ( 5 and 21 ) Potassium Lvl: 3.5 mmol/L -- Normal range between ( 3.5 and 5.3 ) Uric Acid: 3.0 mg/dL -- Normal range between ( 2.2 and 7.4 ) Chloride: 110 mmol/L -- Normal range between ( 101 and 111 ) Bili Indirect: Unable to Calculate mg/dL -- Normal range between ( 0.1 and 0.9 ) eGFR: 135 mL/min/1.73 m2 Globulin: 3.8 gm/dL -- Normal range between ( 1.4 and 4.0 ) 01/31/2023 11:04 PM U Benzodia Scr: Negative U Cocaine Scr: Negative U Opiate Scr: Negative U PCP Scr: Negative U Cannab Scr: Negative U Amph Scr: Negative U Merced Scr: Negative U Suboxone Scr: Negative Blood Bank 02/01/2023 0:20 AM ABO/Rh: O POS ABSC Gel Interp: Negative FMHV: 0 mL Measurements: Height: 167 cm Weight: 70 kg Blood Pressure: 110 mmHg / 53 mmHg BMI: 25.1 kg/m2 Procedures No Procedures Documented Immunizations No Immunizations Documented This Visit Final Med List: amoxicillin (amoxicillin 500 mg Cap) 1 Capsules By Mouth every 12 hours. Refills: 0. aspirin (aspirin 81 mg Chew Tab) 1 Tablets By Mouth every day. lisdexamfetamine (Vyvanse 40 mg oral capsule) 1 Capsules By Mouth once a day (in the morning). multivitamin, ( Multivitamins) 1 Tablets By Mouth every day. pantoprazole progesterone (progesterone 200 mg vaginal suppository) 1 Suppositories Vaginal every day. Care Team Members: Attending Physician: Ozzy Martinez MD Consulting Physician: Referring Physician: Follow up: With: Address: When: [facility], [address] [place] [address] , [place], [place] [id number] Busi (more content not included)... Normal [facility] Inpatient Patient Summaryon 02-01-2023 Inpatient Patient Summary [address] [address] Patient Discharge Instructions PERSON INFORMATION Name: ANAND HERRERA Date of : 2000 Current Date: 02/01/2023 03:03:51 PHYSICIANS Admitting Physician: Ozzy Martinez MD Primary Care Physician: Baljit Watts DO PCP Comment: Discharge Diagnosis: Condition at Discharge: ANAND HERRERA has been given the following list of follow-up instructions, prescriptions, and patient education materials: PATIENT FOLLOW-UP INFORMATION Diet: Activity: Wound Care Instructions: Remove Your Dressing IN: Days Call Your Doctor For: IF UNABLE TO CONTACT YOUR PHYSICIAN AND YOU FEEL IT IS AN EMERGENCY, GO TO THE NEAREST EMERGENCY ROOM OR CALL 911 Home Treatment: Devices/Equipment: Special Services: Additional Instructions: Physician to provide the following pending test results: Follow up: With: Address: When: [facility], [address] [place] [address] , [place] [address] Business (1) In 8 days 02/09/2023 Comments: Call for any problems. Call for severe abdominal pain Call physician for heavy vaginal bleeding Return for contractions closer, longer, harder Return for decreased movement Return if ruptured membranes or vaginal bleeding In the event that this physician does not participate in your insurance network, please consult with your insurance company to find a nearby participating provider. Comment: JAVIER Reid CARLEAH E, have received the attached patient education materials/instructions and have verbalized understanding. Patient Signature Date Clinican/Nurse Signature Date MEDICATION LIST Medications to Continue Taking That Have Changed Other Medications START: lisdexamfetamine (Vyvanse 40 mg oral capsule) 1 Capsules By Mouth once a day (in the morning). Last Dose: Next Dose: STOP: lisdexamfetamine (Vyvanse 60 mg oral capsule) 1 Capsules By Mouth once a day (in the morning). Medications to Continue with No Changes Other Medications amoxicillin (amoxicillin 500 mg Cap) 1 Capsules By Mouth every 12 hours. Refills: 0. Last Dose: Next Dose: aspirin (aspirin 81 mg Chew Tab) 1 Tablets By Mouth every day. Last Dose: Next Dose: multivitamin, ( Multivitamins) 1 Tablets By Mouth every day. Last Dose: Next Dose: pantoprazole Last Dose: Next Dose: progesterone (progesterone 200 mg vaginal suppository) 1 Suppositories Vaginal every day. Last Dose: Next Dose: Pharmacy Information: [facility] PATIENT EDUCATION INFORMATION Instructions: Third Trimester of The third trimester of is from week 28 through week 40. This is also called months 7 through 9. This trimester is when your unborn baby (fetus) is growing very fast. At the end of the ninth month, the unborn baby is about 20 inches long. It weighs about 6?10 pounds. Body changes during your third trimester Your body continues to go through many changes during this time. The changes vary and generally return to normal after the baby is born. Physical changes ? Your weight will continue to increase. You may gain 25?35 pounds (11?16 kg) by the end of the . If you are underweight, you may gain 28?40 lb (about 13?18 kg). If you are overweight, you may gain 15?25 lb (about 7?11 kg). ? You may start to get stretch dumont on your hips, belly (abdomen), and breasts. ? Your breasts will continue to grow and may hurt. A yellow fluid (colostrum) may leak from your breasts. This is the first milk you are making for your baby. ? You may have changes in your hair. ? Your belly button may stick out. ? You may have more swelling in your hands, face, or ankles. Health changes ? You may have heartburn. ? You may have trouble pooping (constipation). ? You may get hemorrhoids. These are swollen veins in the butt that can itch or get painful. ? You may have swollen veins (varicose veins) in your legs. ? You may have more body aches in the pelvis, back, or thighs. ? You may have more tingling or numbness in your hands, arms, and legs. The skin on your belly may also feel numb. ? You may feel short of breath as your womb (uterus) gets bigger. Other changes ? You may pee (urinate) more often. ? You may have more problems sleeping. ? You may notice the unborn baby dropping, or moving lower in your belly. ? You may have more discharge coming from your vagina. ? Your joints may feel (more content not included)... Normal [facility] Insurance Correspondenceon 1 Insurance Correspondence [id number] Normal [facility] Lyteson 02-01-2023 Anion gap [Moles/Vol] 5 mmol/L Low 6-16 [facility] Comment on above: Performed By: #### 2 251535, 4372389, 3503595, 38362427, 27363128, 5829617, 45136771, 2777857, 5880334, 7356513 ####[facility] [address] [place] [address] Chloride [Moles/Vol] 110 mmol/L Normal 101-111 [facility] Comment on above: Performed By: #### 2 717552, 6027800, 8173565, 81868536, 97788032, 8343024, 76969897, 8046795, 7582530, 8692634 ####[facility] [address] [place] [address] CO2 [Moles/Vol] 25 mmol/L Normal 21-31 [facility] Comment on above: Performed By: #### 2 882674, 7245442, 6644190, 42433057, 60039777, 0091198, 15401202, 7596662, 7481339, 6984420 ####[facility] [address] [place] [address] Potassium [Moles/Vol] 3.5 mmol/L Normal 3.5-5.3 [facility] Comment on above: Performed By: #### 2 952458, 7393718, 7637079, 49524078, 61100260, 2798841, 35377390, 2732847, 4652451, 9897432 ####[facility] [address] [place] [address] Sodium [Moles/Vol] 136 mmol/L Normal 135-145 [facility] Comment on above: Performed By: #### 2 998386, 2090126, 7718324, 99198421, 36662797, 1871114, 84469785, 0608875, 7311137, 9416878 ####[facility] [address] [place] [address] PT & PTTon 02-01-2023 aPTT Coag (PPP) [Time] 26.9 second(s) Normal 25.1-36.5 [facility] Comment on above: Result Comment: Para meter 15 days - 4 weeks 1 - 5 months 6 - 11 months 1 - 5 years 6 - 10 years 11 - 17 years PTT Mean: 35.4 (27.6-45.6) Mean: 33.5 (24.8-40.7) Mean: 32.4 (25.1-40.7) Mean: 31.6 (24.0-39.2) Mean: 31.6 (26.9-38.7) Mean: 31.0 (24.6-38.4) Pediatric Reference ranges were obtained from a study by Rory Rossi et al. prepared from 1437 samples obtained at 7 different centers using the same coagulation reagent and instrumentation as [facility]. Currently there are no coagulation studies available worldwide for children to 14 days, and no normal ranges. Heparin therapeutic range (represented by Anti-Factor Xa activity of 0.2 - 0.4 U/mL) corresponds to PTT of 56.6 - 109.0 sec. Performed By: #### 2 673202, 1015880, 3522727, 92111304, 06845610, 5032961, 92745068, 0317869, 1888851, 7164073 ####[facility] [address] [place] [address] INR Coag (PPP) [Relative time] 0.9 {INR} Invalid Interpretation Code [facility] Comment on above: Result Comment: INR results are specifically intended to assess patients stabilized on long-term Anticoagulation therapy suggested INR?s ?Less Intensive Anticoagulation? 2.0 ? 3.0 Conventional Range 3.0 ? 4.5 Performed By: #### 2 338572, 4332908, 2276348, 50065992, 28948825, 7876003, 42919360, 9398463, 2360113, 5011355 ####[facility] [address] [place] [address] PT Coag (PPP) [Time] 9.7 second(s) Normal 9.4-12.5 [facility] Comment on above: Result Comment: 15 d ays - 4 weeks 1 - 5 months 6 -11 months 1 ? 5 years 6 ? 10 years 11 -17 years Mean: 11.2 (9.5 ? 12.6) Mean: 11.0 (9.7 ? 12.8) Mean: 11.0 (9.8 ? 13.0) Mean: 11.3 (9.9 ? 13.4) Mean: 11.7 (10.0 ? 14.6) Mean: 11.8 (10.0 - 14.1) Pediatric Reference ranges were obtained from a study by Rory Rossi et al. prepared from 1437 samples obtained at 7 different centers using the same coagulation reagent and instrumentation as [facility]. Currently there are no coagulation studies available worldwide for children to 14 days, and no normal ranges. Performed By: #### 2 247792, 4724623, 8839631, 40005227, 79493322, 5009184, 81788003, 5082017, 0593498, 3051187 ####[facility] [address] [place] [address] U Drug Screenon 02-01-2023 U Amph Scr Negative Normal Negative [facility] Comment on above: Result Comment: Nega tive Cutoff: <1000 ng/mL Performed By: #### 1 7621038, 549872297, 0772848, 5700854 ####[facility] [address] [place] [address] U Merced Scr Negative Normal Negative [facility] Comment on above: Result Comment: Nega tive Cutoff: <200 ng/mL Performed By: #### 1 4766584, 100324028, 0779191, 3672495 ####[facility] [address] [place] [address] U Benzodia Scr Negative Normal Negative [facility] Comment on above: Result Comment: Nega tive Cutoff: <200 ng/mL Performed By: #### 1 5591163, 557290599, 2157239, 2771182 ####[facility] [address] [place] [address] U Cannab Scr Negative Normal Negative [facility] Comment on above: Result Comment: Nega tive Cutoff: <50 ng/mL Performed By: #### 1 0425899, 307760437, 4966674, 7113362 ####[facility] [address] [place] [address] U Cocaine Scr Negative Normal Negative [facility] Comment on above: Result Comment: Nega tive Cutoff: <300 ng/mL Performed By: #### 1 7922668, 807768434, 6983528, 8398607 ####[facility] [address] [place] [address] U Opiate Scr Negative Normal Negative [facility] Comment on above: Result Comment: Nega tive Cutoff: <300 ng/mL Performed By: #### 1 3530355, 448204209, 0229688, 5560955 ####[facility] [address] [place] [address] U PCP Scr Negative Normal Negative [facility] Comment on above: Result Comment: Nega tive Cutoff: <25 ng/mL These drug screen results are to be used for medical (i.e., treatment) purposes only. Unconfirmed drug screening results must not be used for non-medical purposes (e.g., employment testing, legal testing). Performed By: #### 1 7348985, 095126068, 4687130, 7906519 ####[facility] [address] [place] [address] UA With Cult Reflexon 2022 Bacteria LM Ql (Urine sed) TRACE Normal Trace [facility] Comment on above: Performed By: #### 1 7508383, 645189618, 7960456, 2421328 ####[facility] [address] [place] [address] Bilirubin Ql (U) Negative Normal Negative [facility] Comment on above: Performed By: #### 1 0901004, 017835527, 4887197, 4064679 ####[address] [address] Clarity (U) CLEAR Normal Clear [facility] Comment on above: Performed By: #### 1 6321304, 735694508, 3376466, 1204806 ####[address] [address] Color (U) YELLOW Normal Yellow [facility] Comment on above: Performed By: #### 1 3227385, 887766368, 4280475, 2141645 ####[address] [address] Epithelial cells.squamous LM .HPF (Urine sed) [#/Area] 0-2 Normal 0-2 [facility] Comment on above: Performed By: #### 1 0078423, 861059199, 5577608, 3680232 ####[facility] [address] [place] [address] Glucose Test strip (U) [Mass/Vol] Negative Normal Negative [facility] Comment on above: Performed By: #### 1 4618166, 144489109, 0041471, 0222599 ####[facility] [address] [place] [address] Hemoglobin Ql (U) 3+ Abnormal Negative [facility] Comment on above: Performed By: #### 1 0052548, 352676653, 3512819, 3629887 ####[facility] [address] [place] [address] Ketones (U) [Mass/Vol] Negative Normal Negative [facility] Comment on above: Performed By: #### 1 4398262, 988416395, 7418163, 2840356 ####[facility] [address] [place] [address] [place].plasma/[place].RBC (Bld) [Mass ratio] 0-3 N ormal 0-3 [facility] Comment on above: Performed By: #### 1 9935822, 981061072, 2070225, 4879152 ####[address] [address] Nitrite Ql (U) Negative Normal Negative [facility] Comment on above: Performed By: #### 1 3296146, 525852339, 0447476, 7993245 ####[address] [address] pH (U) 7.0 [pH] Invalid Interpretation Code 5.0-9.0 [facility] Comment on above: Performed By: #### 1 1271720, 083078145, 2264872, 7165030 ####[facility] [address] [place] [address] Protein (U) [Mass/Vol] Negative Normal Negative [facility] Comment on above: Performed By: #### 1 9830422, 950389147, 0205655, 7381775 ####[facility] [address] [place] [address] Specific gravity (U) [Rel density] 1.010 Invalid Interpretation Code 1.005-1.030 [facility] Comment on above: Performed By: #### 1 2654458, 368007334, 1078281, 5524942 ####[facility] [address] [place] [address] Type of Urine collection method Clean Catch Normal [facility] Comment on above: Performed By: #### 1 8435451, 066840887, 0759953, 8567312 ####[facility] [address] [place] [address] Urobilinogen Qn (U) 0.2 {Debbie'U}/dL Normal 0.0-1.0 [facility] Comment on above: Performed By: #### 1 3987537, 499191568, 2730642, 6832433 ####[facility] [address] [place] [address] WBC Auto Ql (U) 1+ Abnormal Negative [facility] Comment on above: Performed By: #### 1 9871802, 301560461, 6321168, 5771446 ####[facility] [address] [place] [address] WBC LM.HPF (Urine sed) [#/Area] 6-15 Abnormal 0-5 [facility] Comment on above: Performed By: #### 1 0101411, 488095330, 4825847, 0111456 ####[facility] [address] [place] [address] Uric Acidon 02-01-2023 Urate [Mass/Vol] 3.0 mg/dL Normal 2.2-7.4 [facility] Comment on above: Performed By: #### 2 281710, 1999867, 2569837, 00164456, 18995344, 2869180, 97601347, 2613274, 8757641, 5307861 ####[facility] [address] [place] [address] eGFRon 02-01-2023 GFR/1.73 sq M.predicted maris g non-blacks MDRD (S/P/Bld) [Vol rate/Area] 135 mL/min/1.73 m2 Normal >=59 [facility] Comment on above: Order Comment: Order added by Discern Expert. Result Comment: Reeling Operator jono kidney disease could be indicated at eGFR's of less than 60 mL/min/1.73m2. Kidney failure is indicated at less than 15 mL/min/1.73m2. Performed By: #### 2 396077, 8012435, 1018675, 40255143, 16945880, 5143302, 68890507, 2497834, 9606101, 4933776 ####[facility] [address] [place] [address] ED Note-Physicianon 12-13-19 ED Note-Physician Basic Information Time Seen: Lucero Harden PA-C 10/14/2022 12:26 Chief Complaint Patient presents wth avulsion to right foot from jesus History of Present Illness Patient is a 22 year old female who presents with a fairly superficial right foot laceration. Patient states that she stepped on a jesus and cut her foot. Patient denies numbness, tingling, fever, dyspnea, or chills. Patient denies point tenderness to the entirety of the foot except the laceration. Patient dd not try anything to alleviate the pain but states that she went through 6 band-aids due to her taking baby aspirin daily. Patient is currently , up to date on her vaccinations, denies recent travel and exposure to ill contacts. Physical Exam Vitals & Measurements T: 36.8 ?C(Oral) HR: 107(Peripheral) RR: 18 BP: 113/64 SpO2: 100% HT: 164 cm WT: 66 kg BMI: 24.54 Medical Decision Making This chart is a duplicate chart please disregard this chart and refer to the other chart put together by the physician specimen preparation assistant. I could not delete this chart because of limitations within the electronic medical record system. 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 Living situation: Home/Independent. Alcohol abuse in household: No. Substance abuse in household: No. Smoker in household: No., 03/23/2020 Nutrition/Health - No Risk, 03/23/2020 Regular, 03/23/2020 Other Caffeine- occasional, 01/11/2019 Substance Abuse - Denies Substance Abuse, 01/05/2019 Tobacco - Denies Tobacco Use, 03/23/2020 Family History Breast CA: Grandparent. Cervical ca: Mother. Liver cancer: Grandparent. Uterine cancer: Mother. Lab Results No qualifying data available. Diagnostic Results No qualifying data available. Normal [facility] Comment on above: Result Comment: Elec tronically Signed By: Nakul Cannon DO\.br\Date and Time Signed: 12/12/22 07:24 EDT OB Completed scan + Detailed Anatomyon 11-10-2022 OB Completed scan + Detailed Anatomy Indication ======== Abnormality Suspected, Hypertension, Superimposed Pre-eclampsia, Previous Section History ====== General History Smoking: No Height 168 cm Height (ft) 5 ft Height (in) 6 in Previous Outcomes 2 Para 1 Pregnancies delivered (P) 1 Living children (L) 1 Children born living <37w 1 Other: Previous Section Maternal Assessment Height 168 cm Height (ft) 5 ft Height (in) 6 in Weight 64 kg Weight (lb) 140 lb Weight gain 0 kg Weight gain (lb) 0 lb BMI 22.60 kg/m? Physical Exam Initial weight (lb) 140 lb ========= Prakash . Number of fetuses: 1 Dating ====== LMP on: 06/28/2022 Cycle: LMP date uncertain GA by LMP 19 w + 2 d OTF by LMP: 04/04/2023 Conception: LMP Ultrasound examination on: 11/10/2022 GA by U/S based upon: AC, BPD, Femur, HC GA by U/S 19 w + 0 d OTF by U/S: 04/06/2023 Assigned: based on ultrasound (CRL), selected on 09/26/2022 Assigned GA 19 w + 3 d Assigned OTF: 04/03/2023 Growth Overview Exam date GA BPD (mm) HC (mm) AC (mm) FL (mm) HL (mm) EFW (g) 11/10/2022 19w 3d 42.1 22% 160.9 19% 144.8 58% 28 16% 29.9 48% 278 31% Impression ========= Anand Javier presents for a targeted anatomic survey. - biometry is consistent with the stated gestational age - Detailed anatomic evaluation of the brain/ventricles, face, heart/outflow tracts and chest anatomy, abdominal organ specific anatomy, number/length/architecture of limbs and detailed evaluation of the umbilical cord and placenta and other anatomy as clinically indicated was performed. - No malformations were identified on this comprehensive survey within limitations of sonographic evaluation at this gestational age. The information was discussed with the patient. Follow-up as clinically indicated. General Evaluation Cardiac activity present. FHR 139 bpm. movements: visualized. Presentation: transverse Placenta: Placental site: posterior, No Previa Seen Umbilical cord: Cord vessels: 3 vessel cord. Insertion site: placental insertion: normal Amniotic fluid: Amount of AF: normal amount Biometry Standard BPD 42.1 mm 18w 5d 22% Hadlock OFD 57.8 mm 44% INTERGROWTH-21st HC 160.9 mm 18w 6d 19% Hadlock Cerebellum tr 19.9 mm 19w 4d 55% Conti Nuchal fold 3.6 mm AC 144.8 mm 19w 6d 58% Hadlock Femur 28.0 mm 18w 4d 16% Hadlock Humerus 29.9 mm 48% Chitty HC / AC 1.11 14% Hadlock EFW 278 g 19w 1d 31% Hadlock EFW (lb) 0 lb EFW (oz) 10 oz EFW by: Hadlock (GRY-BY-FS-FL) Extended Language And Literature Division Chair 7.6 mm CM 4.4 mm 35% Nicolaides Nasal bone 5.1 mm Head / Face / Neck Cephalic index 0.73 4% Nicolaides Nasal bone: present Extremities / Bony Struc FL / BPD 0.67 29% Hadlock FL / HC 0.17 9% Hadlock FL / AC 0.19 5% Hadlock Other Structures FHR 139 bpm Anatomy Cranium: Normal Lateral ventricles: Normal Choroid plexus: Normal Midline falx: Normal Cavum septi pellucidi: Normal Cerebellum: Normal Cisterna magna: Normal Head / Neck Head size: Normal Head shape: Normal Rt lateral ventricle: Normal Lt lateral ventricle: Normal Rt choroid plexus: Normal Lt choroid plexus: Normal Thalami: Normal Cerebellar lobes: Normal Vermis: Normal Neck: Normal Neck: No neck masses seen Lips: Normal Profile: Normal Nose: Normal Face Nasal bone: present Maxilla: Normal Mandible: Normal Orbits: Normal 4-chamber view: Normal RVOT view: Normal LVOT view: Normal 3-vessel view: Normal 1-ybanty-kypbmcj view: Normal Heart / Thorax Situs: situs solitus (normal) Aortic arch view: Normal Bicaval view: Normal Cardiac position: levocardia (normal) Cardiac axis: Normal Cardiac size: normal (approx. 1/3 of thoracic area) Cardiac proportions: proportioned (normal) Cardiac rhythm: regular (normal) Rt lung: Normal Lt lung: Normal Rt diaphragm: Normal Lt diaphragm: Normal Cord insertion: Normal Stomach: Normal Kidneys: Normal Bladder: Normal Genitals: Normal Abdomen Abdom. wall: Normal Stomach: Stomach size and situs appear normal Rt kidney: Normal Lt kidney: Normal Small bowel: Normal Large bowel: Normal Cervical spine: Normal Thoracic spine: Normal Lumbar spine: Normal Sacral spine: Normal Arms: Normal Hands: normal Legs: Normal Feet: normal Rt upper arm: Normal Rt forearm: Normal Rt hand: Normal Rt fingers: Normal Lt upper arm: Normal Lt forearm: Normal Lt hand: Normal Lt fingers: Normal Rt upper leg: Normal Rt lower leg: Normal Rt foot: Normal Rt toes: Normal Lt upper leg: Normal Lt lower leg: Normal Lt foot: Normal Lt toes: Normal Position of hands: Normal Position of feet: Normal sex: female Wants to know sex (more content not included)... Normal [facility] ED Note-Physicianon 10-18-19 ED Note-Physician Basic Information Time Seen: Lucero Harden PA-C 10/14/2022 12:26 Chief Complaint Patient presents wth avulsion to right foot from jesus History of Present Illness This patient presents to the emergency department with a right foot laceration. The patient states that she was using electric jesus and it slipped causing an injury to her right foot. The patient is up-to-date on her tetanus shot. She denies any other injury. Review of Systems Constitutional: Denies weight loss, fevers, chills, sweats, malaise Eyes: Denies visual changes, eye pain, double vision, scotomas, floaters ENT: Denies runny nose, epistaxis, sinus pain, ear pain, ringing in ears, tooth ache, sore throat, pain with swallowing Cardiovascular: Denies chest pain, shortness of breath, orthopnea, edema, palpitations, loss of consciousness, claudication Respiratory: Denies cough, sputum production, wheezing, hemoptysis, shortness of breath, dyspnea on exertion Gastrointestinal: Denies abdominal pain, unintentional weight loss, difficulty swallowing, indigestion, bloating, cramping, loss of appetite, nausea, vomiting, diarrhea, constipation, hematochezia, melena Genitourinary: Denies any incontinence of urine, dysuria, hematuria, nocturia, polyuria, hesitancy, frequency, urgency, burning Musculoskeletal: Denies joint pain, morning stiffness, joint swelling, decreased range of motion, crepitus Integumentary: Denies any pruritus, rashes, lesions, petechiae. + Wound to the right foot Neurologic: Denies any changes in sight, smell, hearing, taste, seizures, headache, paresthesia, numbness, weakness, balance disturbance Psychiatric denies any depression, change in sleep patterns, anxiety, difficulty concentrating, paranoia, anhedonia, lack of energy, jessica Hematologic/lymphatic: Denies any purpura, petechiae, excessive bleeding, bruising Physical Exam Vitals & Measurements T: 36.8 ?C(Oral) HR: 107(Peripheral) RR: 18 BP: 113/64 SpO2: 100% HT: 164 cm WT: 66 kg BMI: 24.54 Vital Signs reviewed and noted. General: Alert, no acute distress, patient resting comfortably Skin: warm, no pallor noted. + Right foot to the lateral aspect just before the heel, there is a 3 cm irregular abrasion/laceration. There is a 3 cm irregular flap of skin, and beneath this there is a 2.5 cm linear laceration. Distal neurovascular is intact. Patient was able to tolerate ambulation. Head: Normocephalic, atraumatic Eye: Normal conjunctiva Cardiac: Normal peripheral perfusion Respiratory: No acute distress Musculoskeletal: No deformity, full ROM. Neurological: alert and oriented, normal sensory and motor observed. Psychiatric: Cooperative Procedure Suture placement. Indication is 3 cm irregular flap laceration with linear 2 cm laceration beneath the flap. The patient was prepped, draped, anesthetized with 1% lidocaine. The wound was cleansed and inspected. There is evidence of a foreign body it was removed in its entirety. Using 4-0 Ethilon, sutures were placed and wound approximation was achieved at various points of the irregular flap. Bleeding was controlled. Patient tolerated procedure well. Dry sterile dressing and then occlusive dressing were applied. Distal neurovascular remained intact after procedure. Medical Decision Making MEDICAL DECISION MAKING Number and Complexity of Problems Differential Diagnosis: Abrasion/laceration to the right lateral foot from electric jesus [facility] Data External documents reviewed: Not applicable My EKG interpretation: Noted in chart if applicable My CT interpretation: Noted in chart if applicable My X-ray interpretation: Noted in chart if applicable My Ultrasound interpretation: Not applicable Decision rules/scores evaluated: Noted in chart if applicable Discussed with: Not applicable Treatment and Disposition ED Course: Patient was interviewed and examined. Procedure note as per documentation. I have discussed with the patient the discharge diagnosis, plan of care, home-going prescription. I discussed with the patient that when her antibiotic therapy is completed, it is time for suture removal. This will be in 10 days. Patient will be discharged home in stable condition. She is to follow-up with her primary care physician for suture removal. She is to return to the emergency department for any further problems or concerns. Shared decision making: I discussed the discharge diagnosis and plan of care with the patient she is in agreement with the plan of care. Code status: Not applicable Assessment/Plan 1. Laceration of right foot (S91.311A: Laceration without foreign body, right foot, initial encounter) Orders: amoxicillin, 875 mg = 1 tab(s), Oral, BID, X 10 day(s), # 20 tab(s), Refills(s) 0, Pharmacy: [facility]/pharmacy #[id number], 164, cm, 10/14/22 12:30:00 EDT, Height/Length Dosing, 66, kg, 10/14/22 12:30:00 EDT, Weight Dosing lidocaine, 100 mg, 10 mL, Injection, TransDermal, Once, Stop date 10/14/22 13:02:00 EDT, STAT, Start date (more content not included)... Normal [facility] Comment on above: Result Comment: Elec tronically Signed By: Lucero Harden PA-C\.br\Date and Time Signed: 10/15/22 00:18 EDT\.br\Electronically Co-Signed By: Nakul Cannon DO\.br\Date and Time Co-Signed: 10/17/22 07:09 EDT Consent for Treatmenton 09-26 Consent for Treatment [id number]:127 [facility] Discharge Instructionson Discharge Instructions [id number]:127 [facility] ED Clinical Summaryon 2022 ED Clinical Summary (Inserted Image. Claudia ble to display) [place] [id number] ED Clinical Summary Person Information Name: ANAND HERRERA [facility] Age: 22 Years : 2000 Sex: Female Language: Belarusian PCP: Baljit Watts DO Marital Status: Single Visit Id: Visit Reason: Foot injury - Minor; RT FOOT INJURY Speciality: Acuity: 4 Enc Type: Emergency Med Service: Emergency Arrival: 10/14/2022 12:18:27 Discharge: 10/14/2022 13:55:11 LOS: 000 01:37 Checkin: 10/14/2022 12:18:27 Checkout: 10/14/2022 13:55:11 Dispo Type: Home (Routine DC) EVENTS: Event Name Event Status Request Date/Time Start Date/Time Complete Date/Time Arrive Complete 10/14/2022 12:18:27 10/14/2022 12:18:27 10/14/2022 12:18:27 Document Home Meds Request 10/14/2022 12:18:27 Triage Complete 10/14/2022 12:18:27 10/14/2022 12:30:40 10/14/2022 12:30:40 Bed Assign Complete 10/14/2022 12:22:13 10/14/2022 12:22:13 10/14/2022 12:22:13 Dr Exam Complete 10/14/2022 12:22:13 10/14/2022 12:22:47 10/14/2022 12:22:47 RN Exam Complete 10/14/2022 12:22:13 10/14/2022 12:38:55 10/14/2022 12:38:55 Registration Complete 10/14/2022 12:22:47 10/14/2022 12:32:34 10/14/2022 12:32:34 Dr Exam Complete 10/14/2022 12:26:54 10/14/2022 12:26:54 10/14/2022 12:26:54 Dr Exam Complete 10/14/2022 12:30:01 10/14/2022 12:30:01 10/14/2022 12:30:01 Reg Complete Request 10/14/2022 12:32:34 Reg Bed Request Complete 10/14/2022 12:32:34 10/14/2022 12:32:34 10/14/2022 12:32:34 Meds Admin Complete 10/14/2022 13:03:29 10/14/2022 13:27:42 Discharge Complete 10/14/2022 13:48:27 10/14/2022 13:55:19 10/14/2022 13:55:19 Transfer Complete 10/14/2022 13:55:19 10/14/2022 13:55:19 10/14/2022 13:55:19 ADDRESS: [address] [place], [place] [address] [id number] PHYS DOC NOTES: MEDICAL INFORMATION: Prescriptions Given: Medications to Continue Taking That Have Changed [facility]/pharmacy #[id number], [address] [place] [id number], [phone] START: amoxicillin (amoxicillin 875 mg Tab) 1 Tablets By Mouth 2 times a day for 10 Days. Refills: 0. Other Medications START: amoxicillin (amoxicillin 500 mg Cap) 1 Capsules By Mouth every 12 hours. Refills: 0. Medications to Continue with No Changes Other Medications lisdexamfetamine (Vyvanse 60 mg oral capsule) 1 Capsules By Mouth once a day (in the morning). PATIENT EDUCATION INFORMATION: Instructions: Sutures, Azalia, or Adhesive Wound Closure, Skoj-jj-Pgkg Follow up: With: Address: When: Baljit Montenegro, [facility] [address] [place] [address] Business (1) In 3 days 10/17/2022 DIAGNOSIS: 1:Laceration of right foot Normal [facility] ED Patient Education Noteon 10-14-2022 ED Patient Education Note Dermatology Sutures, [place], or Adhesive Wound Closure Doctors use stitches (sutures), azalia, skin glue (tissue adhesive), and skin tape (adhesive strips) to hold your skin together while it heals (wound closure). What your doctor will use depends on your wound. Your doctor also may use more than one way to close your wound. In most cases, your wound will be closed right away (primary skin closure). Sometimes, it may be closed later so that it can be cleaned and then heal on its own (delayed wound closure). What are the types of wound closure? Skin glue ? To use skin glue, your doctor will: ? Hold the edges of the wound together. ? [place] the glue onto your skin. You may need more than one layer. ? Cover your wound with a bandage (dressing) after the glue is dry. ? Skin glue may be used for: ? Small wounds that are not deep (superficial wounds). ? Wounds on the face. ? Children's wounds. ? Skin glue is not used inside of wounds, or on wounds that are: ? Deep. ? Uneven. ? Bleeding. ? Some benefits of skin glue are: ? It leaves nothing that needs to be taken off. ? You do not need medicine to numb the area. ? You have less pain than with other types of closure. Skin tape Skin tape is: ? Made of paper that is sticky (adhesive) and has many small holes in it. ? Placed across your wound edges like a normal bandage. ? Used to close very shallow wounds. ? Sometimes used with sutures to help improve closure. Sutures Sutures come in many different materials, strengths, and sizes. Some sutures break down as your wound heals (absorbable). Other sutures need to be taken out (nonabsorbable). To use sutures, your doctor will: ? Sew your skin together with sutures and a needle. ? Use one long stitch or separate stitches. ? Tie and cut the sutures at the end. Sutures can be used for all types of wounds, including under the skin. They can cause a skin reaction that can lead to infection. Azalia Azalia are often used to close cuts from surgery (incisions). To use azalia, your doctor will: ? Hold the edges of your wound close together. ? Place a staple across the wound. ? Use a tool to secure the staple to the skin. ? Repeat this with as many azalia as needed. Saltillo are faster to use than sutures, and they cause less reaction from your skin. Azalia need to be taken out using a tool that bends the zaalia away from your skin. Follow these instructions at home: Medicines ? Take wfpv-rtj-omjabce and prescription medicines only as told by your doctor. ? If you were prescribed an antibiotic medicine, take it as told by your doctor. Do not stop taking it even if you start to feel better. Wound care ? Follow instructions from your doctor about how to take care of your wound and bandage. ? Wash your hands with soap and water for at least 20 seconds before and after touching your wound or bandage. If you cannot use soap and water, use hand silver designer. ? Do not try to take off or take out your wound closures unless your doctor tells you to do that. You may need a follow-up visit for your doctor to take out your closures. ? Closures may stay in place for 2 weeks or longer. ? Absorbable sutures may break down after a few days or weeks. ? If skin tape edges start to loosen and curl up, you may trim the loose edges. ? Do not pick at your wound. Picking can cause an infection or cause your wound to open up again. ? Apply ointments or creams only as told by your doctor. ? Check your wound every day for signs of infection. Check for: ? Redness, swelling, or pain. ? Fluid or blood. ? New warmth, a rash, or hardness at the wound site. ? Pus or a bad smell. General instructions ? Do not take baths, swim, or use a hot tub. Ask your doctor about taking showers or sponge baths. ? Do not soak your wound in water. ? Eat foods that include protein, vitamin A, and vitamin C. These nutrients help your wound heal. ? Drink enough fluid to keep your pee (urine) pale yellow. ? Keep all follow-up visits. Contact a doctor if: ? You have a fever or chills. ? You have redness, swelling, or pain around your wound. ? You have fluid or blood coming from your wound. ? You have new warmth, a rash, or hardness around your wound. ? You see that your wound becomes thick, raised, and darker in color after your sutures come out (scarring). Get help right away if: ? The edges of your wound start to separate. ? Your wound opens up again. ? You notice pus or a bad smell coming from your wound. Summary ? What your doctor uses to hold your skin together while it heals (wound closure) depends on your wound. ? Your doctor may use stitches (sutures), azalia, skin glue (tissue adhesive), or skin tape (adhesive strips). ? Do not try to take off or take out your wound closures unless your doctor tells you to do that. ? Do not soak your wound in water. This information is not i (more content not included)... Normal [facility] ED Patient Summaryon 023 ED Patient Summary [place] [id number] Patient Discharge Instructions Person Information Name: ANAND HERRERA Age: 22 Years Arrival Date: 10/14/2022 12:18:27 Discharge Diagnosis: 1:Laceration of right foot Primary Care Physician: Baljit Watts DO Provider Information Primary Provider: Nakul Cannon DO Advanced Chef & Owner:None The exam and treatment you received in the Emergency Department were for an urgent problem and are not intended as complete care. It is important that you follow up with a doctor, nurse practitioner, or physician?s specimen preparation assistant for ongoing care. If your symptoms become worse or you do not improve as expected and you are unable to reach your usual health care provider, you should return to the Emergency Department. We are available 24 hours a day. ANAND HERRERA has been given the following list of patient education materials, prescriptions and follow-up instructions: Follow-up Instructions: With: Address: When: Baljit Montenegro, [address] [facility] [place] [address] [facility] (1) In 3 days 10/17/2022 In the event that this physician does not participate in your insurance network, please consult with your insurance company to find a nearby participating provider. Patient Education Materials: Sutures, Azalia, or Adhesive Wound Closure, Ofaw-lu-Qvko A MESSAGE TO ALL PATIENTS REGARDING OPIOIDS PRESCRIPTION OPIOIDS: WHAT YOU NEED TO KNOW Prescription opioids can be used to help relieve rfnxdzfk-ra-fucprf pain and are often prescribed following a surgery or injury, or for certain health conditions. These medications can be an important part of the treatment but also come with serious risks. It is important to work with your healthcare provider to make sure you are getting the safest, most effective care. WHAT ARE THE RISKS AND SIDE EFFECTS OF OPIOID USE? Prescription opioids carry serious risks of addiction and overdose, especially with prolonged use. An opioid overdose, often marked by slowed breathing, can cause sudden . The use of prescription opioids can have a number of side effects as well, even when taken as directed: ? Tolerance?meaning you might need to take more of the medication for the same pain relief ? Physical dependence?meaning you have symptoms of withdrawal when a medication is stopped ? Increased sensitivity to pain ? Constipation ? Nausea, vomiting, and dry mouth ? Sleepiness and dizziness ? Confusion ? Depression ? Low levels of testosterone that can result in lower sex drive, energy, and strength ? Itching and sweating RISKS ARE GREATER WITH: ? History of drug misuse, substance use disorder, or overdose ? Mental health conditions (such as depression or anxiety) ? Sleep apnea ? Older age (65 years and older) ? Avoid alcohol while taking prescription opioids. Also, unless specifically advised by your health care provider, medications to avoid include: ? Benzodiazepines (such as Xanax or Valium) ? Muscle relaxants (such as Soma or Flexeril) ? Hypnotics (such as Ambien or Lunesta) ? Other prescription opioids KNOW YOUR OPTIONS Talk to your health care provider about ways to manage your pain that don?t involve prescription opioids. Some of these options may actually work better and have fewer risks and side effects. Options may include: ? Pain relievers such as acetaminophen, ibuprofen, and naproxen ? Some medication that are also used for depression or seizures ? Physical therapy and exercise ? Cognitive behavioral therapy, a psychological, goal-directed approach, in which patients learn how to modify physical, behavioral, and emotional triggers of pain and stress. IF YOU ARE PRESCRIBED OPIOIDS FOR PAIN: ? Never take opioids in greater amounts or more often than prescribed. ? Follow up with your primary health care provider. o Work together to create a plan on how to manage your pain. o Talk about ways to help manage your pain that don?t involve prescription opioids. o Talk about any and all concerns and side effects. ? Help prevent misuse and abuse o Never sell or share prescription opioids. o Never use another person?s prescription opioids. ? Store prescription opioids in a secure place and out of reach of others (this may include visitors, children, friends, and family). ? Safely dispose of unused prescription opioids: Find your community drug take-back program or your pharmacy mail-back program, or flush them down the toilet, following guidance from the Food and Drug Administration (www.fda.gov/Drugs/ResourcesForYou). ? Visit www.cdc.gov/drugoverdose to learn about the risks of opioids abuse and overdose. ? If you believe you may be struggling with addiction, tell your health college and career counselor and ask for guidance or call [facility] National Helpline at 0-340-2 (more content not included)... Normal [facility] OB NT (Nuchal Translucency)o n 09-26-2022 OB NT (Nuchal Translucency) Indication ======== Nuchal Translucency Screening, Pre-eclampsia without severe features, Personal History of Labor/Delivery in Previous History ====== General History Smoking: No Height 168 cm Height (ft) 5 ft Height (in) 6 in Previous Outcomes 2 Para 1 Pregnancies delivered (P) 1 Living children (L) 1 Children born living <37w 1 Other: Previous Section Maternal Assessment Height 168 cm Height (ft) 5 ft Height (in) 6 in Weight 64 kg Weight (lb) 140 lb Weight gain 0 kg Weight gain (lb) 0 lb BMI 22.60 kg/m? Physical Exam Initial weight (lb) 140 lb ========= Prakash . Number of fetuses: 1 Dating ====== LMP on: 06/28/2022 Cycle: LMP date uncertain GA by LMP 12 w + 6 d OTF by LMP: 04/04/2023 Conception: LMP Ultrasound examination on: 09/26/2022 GA by U/S based upon: CRL GA by U/S 13 w + 0 d OTF by U/S: 04/03/2023 Assigned: based on ultrasound (CRL), selected on 09/26/2022 Assigned GA 13 w + 0 d Assigned OTF: 04/03/2023 Impression ========= - In utero gestational sac with a live fetus - [place] rump length is consistent with given OTF - organ survey is within normal limits for the gestational age - Nuchal translucency is within normal limits measuring 2.2 mm - Normal appearing adnexa, though neither ovary was visualized A normal first trimester evaluation cannot exclude major malformations. She has had cfDNA General Evaluation Cardiac activity present Placenta: posterior Cord vessels: normal placental insertion Amniotic fluid: normal amount Biometry Standard FHR 161 bpm CRL 69.1 mm 13w 0d 45% Pexsters NT 2.20 mm Extended Nasal bone: present Anatomy Heart: Normal [place] and [place]. Stomach: Visible, with correct situs. Bladder: Visible. Arms: Both Upper Extremities Seen. Legs: Both Lower Extremities Seen. The following structures appear normal: Cranium. Face: Nasal Bone Present. Neck. Thorax. Abdominal wall: Normal abdominal cord insertion. The following structures could not be adequately visualized: Spine. Maternal Structures Uterus / Cervix Uterus: Visualized Uterus position: anteverted Cervix: Visualized Cervix details: Normal Ovaries / Tubes / Adnexa Rt ovary: Not visualized Lt ovary: Not visualized Cul de Sac / Bladder / Kidneys / Other Cul de Sac: Visualized Free fluid: No free fluid visualized Method ====== Transabdominal ultrasound examination. View: Sufficient Electronically signed by: JESS FELDMAN MD Normal [facility] HEP B SURFACE ANTIGEN SCREEN on 09-05-2022 HBsAg Screen Negative Normal Negative [facility] Comment on above: Performed By: #### H BSANS #### [facility] [address] [place] [address] Dr. Stoney Rodriguez HEPATITIS C VIRUS AB W/ REFL EX QUANTon 09-05-2022 HCV AB Non-Reactive Normal Non Reactive [facility] Comment on above: Performed By: #### H CVPCRR #### [facility] [address] [place] [address] Dr. Stoney Rodriguez Interpretation: Comment Normal [facility] Comment on above: Result Comment: Not infected with HCV unless early or acute infection is suspected (which may be delayed in an immunocompromised individual), or other evidence exists to indicate HCV infection. Performed By: #### H CVPCRR #### [facility] [address] [place] [address] Dr. Stoney Rodriguez HIV 1 AND 2 WITH REFLEXon HIV Screen 4th Generation wRfx Non-Reactive Normal Non Reactive [facility] Comment on above: Result Comment: HIV Negative HIV-1/HIV-2 antibodies and HIV-1 p24 antigen were NOT detected. There is no laboratory evidence of HIV infection. Performed By: #### T NS #### [facility] [address] [place] [address] Dr. Stoney Rodriguez RPR QUANTon 09-05-2022 Rapid Plasma Reagin, Quant Non-Reactive Normal NonRea< 1:1 [facility] Comment on above: Result Comment: Plea se Note: This test does not meet current guidelines for screening and diagnosis of syphilis. This test is intended for following treatment response in patients being treated for syphilis infection. To screen for syphilis infection, a reflex cascade that includes both RPR and a treponema-specific assay should be utilized, such as Treponema pallidum (Syphilis) Screening [place] (256537) or Rapid Plasma Reagin (RPR) Test With Reflex to Quantitative RPR and Confirmatory Treponema pallidum Antibodies (638415). Performed By: #### R PRQ #### [facility] [address] [place] [address] Dr. Stoney Rodriguez RUBELLA AB IGGon 09-05-2022 Rubella Antibodies, IgG 11.40 index Normal Immune >0.9 9 [facility] Comment on above: Result Comment: Non- immune <0.90 Equivocal 0.90 - 0.99 Immune >0.99 Performed By: #### R UBIGG #### [facility] [address] [place] [address] Dr. Stoney Rodriguez BOX TEST SENT OUTon 09-05-19 SENT TO REF LAB 09/04/22 Normal [facility] Comment on above: Performed By: #### B OX #### [facility] [address] [place] [address] Dr. Stoney Rodriguez CBC AUTO DIFFon 09-04-2022 BASO # 0.0 103/ul Normal 0.0-0.1 [facility] Comment on above: Performed By: #### C BC #### [facility] [address] [place] [address] Dr. Stoney Rodriguez Basophils/100 WBC (Bld) 0.4 % Normal 0.2-2.0 [facility] Comment on above: Performed By: #### C BC #### [facility] [address] [place] [address] Dr. Stoney Rodriguez EO # 0.1 103/ul Normal 0.0-0.7 [facility] Comment on above: Performed By: #### C BC #### [facility] [address] [place] [address] Dr. Stoney Rodriguez Eosinophils/100 WBC (Bld) 0.7 % Critically low 0.9-7. 0 [facility] Comment on above: Performed By: #### C BC #### [facility] [address] [place] [address] Dr. Stoney Rodriguez Erythrocyte distribution wid th (RBC) [Ratio] 14.5 % Normal 11.0-15.0 [facility] Comment on above: Performed By: #### C BC #### [facility] [address] [address] [address] Stoney Rodriguez Hematocrit (Bld) [Volume fraction] 36.7 % Normal 3 6.0-48.0 [facility] Comment on above: Performed By: #### C BC #### [facility] [address] [address] [address] Stoney Rodriguez Hemoglobin (Bld) [Mass/Vol] 11.9 g/dL Critically low 12.0 -16.0 [facility] Comment on above: Performed By: #### C BC #### [facility] [address] [place] [address] Dr. Stoney Rodriguez IG # 0.03 10e3/ul Normal 0.00-0.03 [facility] Comment on above: Performed By: #### C BC #### [facility] [address] [place] [address] Dr. Stoney Rodriguez IG % 0.4 % Normal 0.0-0.5 [facility] Comment on above: Performed By: #### C BC #### [facility] [address] [place] [address] Dr. Stoney Rodriguez LYMPH # 2.0 103/ul Normal 1.2-3.8 [facility] Comment on above: Performed By: #### C BC #### [facility] [address] [place] [address] Dr. Stoney Rodriguez Lymphocytes/100 WBC (Bld) 23.3 % Normal 20.5-60.0 [facility] Comment on above: Performed By: #### C BC #### [facility] [address] [place] [address] Dr. Stoney Rodriguez MANUAL DIFF REQ NO Normal [facility] Comment on above: Performed By: #### C BC #### [facility] [address] [place] [address] Dr. Stoney Rodriguez MCH (RBC) [Entitic mass] 28.7 pg Normal 26.7-34.0 [facility] Comment on above: Performed By: #### C BC #### [facility] [address] [place] [address] Dr. Stoney Rodriguez MCHC (RBC) [Mass/Vol] 32.4 g/dL Normal 29.9-35.2 [facility] Comment on above: Performed By: #### C BC #### [facility] [address] [place] [address] Dr. Stoney Rodriguez MCV (RBC) [Entitic vol] 88.6 fL Normal 81.0-99.0 [facility] Comment on above: Performed By: #### C BC #### [facility] [address] [place] [address] Dr. Stoney Rodriguez MONO # 0.5 103/ul Normal 0.3-0.8 [facility] Comment on above: Performed By: #### C BC #### [facility] [address] [place] [address] Dr. Stoney Rodriguez Monocytes/100 WBC (Bld) 6.2 % Normal 1.7-12.0 [facility] Comment on above: Performed By: #### C BC #### [facility] [address] [place] [address] Dr. Stoney Rodriguez NEUT # 5.9 103/ul Normal 1.4-6.5 [facility] Comment on above: Performed By: #### C BC #### [facility] [address] [place] [address] Dr. Stoney Rodriguez Neutrophils/100 WBC (Bld) 69.0 % Normal 43.0-75.0 [facility] Comment on above: Performed By: #### C BC #### [facility] [address] [place] [address] Dr. Stoney Rodriguez Platelet mean volume (Bld) [Entitic vol] 9.7 fL Normal 9.5-13.5 [facility] Comment on above: Performed By: #### C BC #### [facility] [address] [place] [address] Dr. Stoney Rodriguez PLT 378 103/ul Normal 150-450 [facility] Comment on above: Performed By: #### C BC #### [facility] [address] [address] [address] Stoney Rodriguez RBC 4.14 106/ul Critically low 4.20-5.40 [facility] Comment on above: Performed By: #### C BC #### [facility] [address] [address] [address] Stoney Rodriguez WBC 8.5 103/ul Normal 4.0-11.0 [facility] Comment on above: Performed By: #### C BC #### [facility] [address] [place] [address] Dr. Stoney Rodriguez CULTURE URINEon 09-04-2022 CULTURE URINE Culture Observations : NO GROWTH. Normal [facility] Comment on above: Performed By: #### U RCX #### [facility] [address] [place] [address] Dr. Stoney Rodriguez GLYCOHEMOGLOBIN A1Con 2022 ADA RECOMMENDATION SEE BELOW Normal [facility] Comment on above: Result Comment: ADA RECOMMENDED LIMIT 4.0 - 6.0 ADA THERAPEUTIC TARGET < 7.0 ACTION SUGGESTED > 7.0 Performed By: #### A 1C #### [facility] [address] [place] [address] Dr. Stoney Rodriguez Glucose [Mass/Vol] 94 mg/dL Normal [facility] Comment on above: Performed By: #### A 1C #### [facility] [address] [place] [address] Dr. Stoney Rodriguez HbA1c (Bld) [Mass fraction] 4.9 % Normal 4.5-6.2 [facility] Comment on above: Performed By: #### A 1C #### [facility] [address] [place] [address] Dr. Stoney Rodriguez TSHon 09-04-2022 TSH 0.653 uIU/mL Normal 0.358-3.740 [facility] Comment on above: Performed By: #### T SH #### [facility] [address] [place] [address] Dr. Stoney Rodriguez TYPE AND SCREENon 09-04-2022 TYPE AND SCREEN Negative Normal [facility] Comment on above: Performed By: #### T NS #### [facility] [address] [place] [address] Dr. Stoney Rodriguez US PREG TVon 08-14-2022 US PREG TV EXAMINATION: US PREG TV HISTORY: Missed period COMPARISON: No relevant comparison available. FINDINGS: GESTATIONAL SAC: Present and normal appearing. YOLK SAC: Present and normal appearing. POLE: Present and normal appearing. CARDIAC: Present. UTERUS: Normal size and appearance. OVARIES: Right: Normal. Left: Normal. CERVIX: 3.0 cm in length and closed. CUL-DE-SAC: Normal. OTHER: None. AGE BY LMP: 9 weeks 5 days OTF BY LMP: 03/15/2023 AGE BY US CRL: 6 weeks 1 day OTF BY US CRL: 04/08/2023 IMPRESSION: 1. Single live intrauterine . Electronically authenticated by: BILLIE SMITH Date: 2022-08-14 16:07 Normal [facility] CHEMISTRYOrdered By: Ida Mcfarland on 12-19-2021 Anion gap [Moles/Vol] 11 mmol/L Normal 6 - 16 mEq/L [facility] Remisol Calcium [Mass/Vol] 8.9 mg/dL Normal 8.9 - 11.1 mg/dL [facility] Chloride [Moles/Vol] 106 mmol/L Normal 101 - 111 mmol/ L [facility] CO2 [Moles/Vol] 22 mmol/L Normal 21 - 31 mmol/L [facility] Creatinine [Mass/Vol] 0.9 mg/dL Normal 0.5 - 1.3 mg/d L [facility] Glucose [Mass/Vol] 96 mg/dL Normal 55 - 199 mg/dL [facility] Potassium [Moles/Vol] 3.8 mmol/L Normal 3.5 - 5.3 mmol /L [facility] Sodium [Moles/Vol] 135 mmol/L Normal 135 - 145 mmol/L [facility] Urea nitrogen [Mass/Vol] 18 mg/dL Normal 5 - 21 mg/d L [facility] Urea nitrogen/Creatinine [Mass ratio] 20 mg/mg Normal 10 - 20 [facility] CHEMISTRYOrdered By: SYSTEM SYSTEM on 12-19-2021 GFR/1.73 sq M.predicted maris g blacks MDRD (S/P/Bld) [Vol rate/Area] mL/min/1.73 m2 Normal >=59mL/min/1.73 m2 [facility] Chem S GFR/1.73 sq M.predicted maris g non-blacks MDRD (S/P/Bld) [Vol rate/Area] mL/min/1.73 m2 Normal >=59mL/min/1.73 m2 [facility] Chem S COAGULATIONOrdered By: Randall Mcfarland on 12-19-2021 aPTT Coag (PPP) [Time] 30.1 s Normal 25.1 - 36.5 second(s) [facility] Auto Coag INR Coag (PPP) [Relative time] 0.9 {INR} Invalid Interpretation Code [facility] Auto Coag PT Coag (PPP) [Time] 9.9 s Normal 9.4 - 12.5 second(s) [facility] Auto Coag HEMATOLOGYOrdered By: SYSTEM SYSTEM on 12-19-2021 Basophils/100 WBC (Bld) 0.5 % Normal 0.0 - 2.0 % [facility] HemeAutoSS Basophils/Leukocytes Auto (B ld) [Pure # fraction] 0.0 E9/L Normal 0.0 - 0.2 E9/L [facility] HemeAutoSS Eosinophils/100 WBC (Bld) 1.2 % Normal 0.0 - 8.0 % [facility] HemeAutoSS Eosinophils/Leukocytes Auto (Bld) [Pure # fraction] 0.1 E9/L Normal 0.0 - 0.5 E9/L [facility] HemeAutoS S Lymphocytes/100 WBC (Bld) 36.3 % Normal 14.0 - 50. 0 % [facility] HemeAutoSS Lymphocytes/Leukocytes Auto (Bld) [Pure # fraction] 2.8 E9/L Normal 1.0 - 4.0 E9/L [facility] HemeAutoS S Monocytes/100 WBC (Bld) 8.6 % Normal 4.0 - 14.0 % [facility] HemeAutoSS Monocytes/Leukocytes Auto (B ld) [Pure # fraction] 0.7 E9/L Normal 0.2 - 1.0 E9/L [facility] HemeAutoSS Neutrophils/100 WBC (Bld) 53.4 % Normal 36.0 - 75. 0 % [facility] HemeAutoSS Neutrophils/Leukocytes Auto (Bld) [Pure # fraction] 4.1 E9/L Normal 2.0 - 7.5 E9/L [facility] HemeAutoS S HEMATOLOGYOrdered By: Sebastián Mcfarland on 12-19-2021 Erythrocyte distribution wid th (RBC) [Ratio] 15.2 % High 10.9 - 14.2 % [facility]SS Hematocrit (Bld) [Volume fraction] 34.8 % Normal 34.0 - 46.0 % [facility] Hemoglobin (Bld) [Mass/Vol] 11.4 g/dL Low 12.0 - 1 6.0 gm/dL [facility] MCH (RBC) [Entitic mass] 27.9 pg Normal 27.0 - 34.0 pg [facility] MCHC (RBC) [Mass/Vol] 32.7 g/dL Normal 31.4 - 36.0 gm /dL [facility] MCV (RBC) [Entitic vol] 85.4 fL Normal 80.0 - 100.0 fL [facility] Platelet mean volume (Bld) [Entitic vol] 7.8 fL Normal 6.4 - 10.8 fL [facility] Platelets (Bld) [#/Vol] 361.0 E9/L Normal 150.0 - 500. 0 E9/L [facility] RBC (Bld) [#/Vol] 4.1 E12/L Low 4.3 - 5.9 E12/L [facility] WBC corrected for nucl RBC A uto (Bld) [#/Vol] 7.6 E9/L Normal 4.0 - 11.0 E9/L [facility] HemeAutoSS SEROLOGYOrdered By: Ida Mcfarland on 12-19-2021 Beta hCG Ql Negative (12/19/21 2:12 AM) Normal [facility] Man Sero CULTURE URINEon 04-28-2020 CULTURE URINE CULTURE URINE --> Status: F Normal urogenital praneeth present. 1 Organism Escherichia coli 10,000-50,000 CFU/ml 1 Organism Antibiotic Result Intrp Ampicillin(JAI) >= 32 R Cefazolin(JAI) <= 4 S Ceftriaxone(JAI) <= 1 S Cefepime(JAI) <= 1 S Aztreonam(JAI) <= 1 S Amoxicillin/Clavulanic Acid(JAI) 8 S Ampicillin/Sulbactam(JAI) >= 32 R Pip/Tazobactam(JAI) <= 4 S Meropenem(JAI) <= 0.25 S Ciprofloxacin(JAI) <= 0.25 S Trimeth/Sulfa(JAI) <= 20 S Nitrofurantoin(JAI) <= 16 S Gentamicin(JAI) <= 1 S Amikacin(AJI) 4 S Normal [facility] Comment on above: Performed By: #### C /UR ####[address] [place] [address] [place], [place] [id number] Culture, Urineon 04-28-2020 Bacteria identified Cx Nom (U) 10,000-50,000 CFU/ml [facility], [place] Bacteria identified Cx Nom (U) Normal urogenital praneeth present. Abnormal [facility] [place], [place] Bacteria identified Cx Nom (U) Escherichia coli Abnormal [facility] [employer] [place], [place] Interpretation and review of laboratory results Abnormal [facility], [place] Test Performed by [address] [address] [facility] [place], [place] Hemoglobinon 04-27-2020 Hemoglobin (Bld) [Mass/Vol] 7.1 g/dL Low 11.7-16. 0 [facility] Comment on above: Performed By: #### H EMGB #### [address] [address] Hemoglobin (Bld) [Mass/Vol] 7.1 g/dL Low 11.7 - 16 g/dL [place], [place] Interpretation and review of laboratory results Abnormal [place], [place] Test Performed by [facility], [address] [place] [id number] [place], [place] Group B Strep Screen PCRon 1 Group B Strep Screen PCR Group B Strep S creen PCR --> Status: F NEGATIVE Expected Result: Negative CDC guidelines for prevention of Group B Strep disease recommends collection of both vaginal and rectal specimens for optimal recovery of GBS. Methodology - Real Time PCR (Cepheid) Expected Result: Negative CDC guidelines for prevention of Group B Strep disease recommends collection of both vaginal and rectal specimens for optimal recovery of GBS. Methodology - Real Time PCR (Cepheid) Normal [facility] Comment on above: Performed By: #### G [facility] ####[address] [address] Group B Strep, PCRon 020 Group B Strep Screen PCR NEGATIVE Expected Result: Negative CDC guidelines for prevention of Group B Strep disease recommends collection of both vaginal and rectal specimens for optimal recovery of GBS. Methodology - Real Time PCR (Cepheid) [place], [place] Test Performed by [address] [address] [place], [place] Op Noteon 04-26-2020 Op Note PATIENT: TRAVIS HERRERA [facility] ADMISSION DATE: 04/25/2020 SURGERY DATE: 04/26/2020 DATE OF : 2000 AGE: 19 ADMITTING PHYSICIAN: Fariha Matos DO ATTENDING PHYSICIAN: Ozzy Chowdhury MD DICTATING PHYSICIAN: Ozzy Chowdhury MD OPERATIVE RECORD Procedure: PRIMARY LOW TRANSVERSE CERVICAL SECTION WITH DELIVERY OF A VIABLE FEMALE INFANT, APGARS WERE SIGNED BY SPECIAL CARE NURSERY AND WEIGHT WAS 1256 G. SHE WAS ALSO NOTED TO HAVE NORMAL UTERUS, TUBES, AND OVARIES. 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 Postoperative Diagnosis: Anesthesia: Spinal. She also did have a TAP block. Director Of Safety And Security: Dr. Benjamin. Replacement: 1500 cc of crystalloid. Urine Output: 25 cc of clear urine. Estimated Blood Loss: 700 with QBL of 730. Drains: Hampton. Specimens: Placenta. History: The patient is a 19-year-old female, who is a transport via the Maternal- care team from an outside area, who had been admitted for preeclampsia with severe features based on abnormally high blood pressures. She had been admitted. She had been observed through the course of the day, had gotten steroids, magnesium sulfate, etc. However, heart tone tracing had become increasingly abnormal with recurrent decelerations and through the Maternal- team, it was decided she would require delivery via section. I was then consulted to do that. Appropriate risks, benefits, and alternatives were discussed with the patient including but not limited to injury consequence to bowel, bladder, bleeding, infection, transfusion, possible need for vertical incision, etc. Appropriate consents were signed. Description of Procedure: The patient was taken to the OR and given spinal anesthesia. She was then placed supine, had Hampton catheter inserted, and was then prepped and draped sterilely. After assurance of adequate level of anesthesia, the abdomen was then entered through a low Pfannenstiel incision. Subcutaneous tissue was dissected using cautery. Fascia was then nicked in the midline, dissected bilaterally using Sutherland scissors. Rectus muscles were dissected off the fascial sheath superiorly and inferiorly using cautery. We then the rectus muscles in the midline, entered the perineum bluntly with a fingertip and dissected down to the level of the bladder. A bladder blade was then placed for protection of the bladder and the uterus opened through a low transverse incision made sharply with a scalpel and extended bluntly bilaterally. The placenta was anterior and we entered right about the inferior aspect of that so the entry was a little bloody. The baby was in vertex presentation, delivered up through the incision without any undue difficulty. Baby was known to have amniotic band syndrome and we did notice that the right hand was missing. After a minute of delayed cord clamping as baby was crying, the cord was doubly clamped and cut. Baby was transferred to the recess room where special care nursery was in attendance and again Apgars were pending, but we did have a weight of 1256 g. Cord blood was collected and the uterus was externalized after delivery of the placenta. The uterus was thoroughly clean using a clean lap sponge. The lower uterine segment was repaired using 0-Vicryl running lock suture with a couple of imbricating sutures with good hemostasis achieved. Tubes and ovaries inspected bilaterally and noted to be normal. Amniotic fluid, blood, and debris were cleared from the pelvic gutters. Uterus was placed back in the pelvis. Irrigation was carried out. All areas were noted be hemostatic. A piece of Interceed was placed over the lower uterine segment to decrease adhesion formation. We then plicated the rectus muscle in the midline with a simple stitch of 0-Vicryl, fascia closed using 0-Vicryl, subcu reapproximated using 3-0 Vicryl, and a 3-0 Monocryl was then used to close the skin in subcuticular. Benzoin and Steri-Strips were applied. The patient received a TAP block in the OR and was then taken to recovery room in good condition. Again blood loss was about 700 with QBL of 730. She did receive 2 g of Ancef as well as the 1500 cc of crystalloid. Diskriter Job ID: [id number] Ozzy Chowdhury MD DOD:04/26/2020 07:56 A JAKUB/kimmy DOT:04/26/2020 10:55 A Job Number: [id number] Document Number: [id number] cc: [place] [address] [place] [address]. [facility] hospital [address] Fariha Matos, [id number] Critical access hospital [id number] Normal [facility] C. Trachomatis / N. Gonorrho eae, DNA Probeon 04-25-2020 C. trachomatis DNA ARCHANA+probe Ql (Genital specimen) NOT Detected Chlamydia trachomatis Nucleic Acid NOT Detected by DNA Amplification using the Cepheid System. Culture is the only recommended test in medical-legal cases such as suspected child abuse or molestation. [facility], [place] N. gonorrhoeae DNA ARCHANA+probe Ql (Unsp spec) NOT Detected Neisseria gonorrhoeae Nucleic Acid NOT Detected by DNA Amplification using the Cepheid System. Culture is the only recommended test in medical-legal cases such as suspected child abuse or molestation. [place], [place] Test Performed by [facility], [address] [place] [id number] [place], [place] CBCon 04-25-2020 Erythrocyte distribution width (RBC) [Ratio] 18.2 % High 11.5 - 14.5 % [place], [place] Hematocrit (Bld) [Volume fraction] 30.6 % Low 35 - 47 % [place], [place] Hemoglobin (Bld) [Mass/Vol] 9.7 g/dL Low 11.7 - 16 g/dL [place], [place] Interpretation and review of laboratory results Abnormal [place], [place] MCH (RBC) [Entitic mass] 26.2 pg 26 - 34 pg [place], [place] MCHC (RBC) [Mass/Vol] 31.9 % Low 32 - 36 % [place], [place] MCV (RBC) [Entitic vol] 82.2 fL 79 - 98 fL [place], [place] Platelet mean volume (Bld) [Entitic vol] 8.1 fL 7.4 - 10.4 fL [place], [place] Platelets (Bld) [#/Vol] 249 10*3/uL 140 - 440 10*3/uL [place], [place] RBC (Bld) [#/Vol] 3.72 10*6/uL Low 3.8 - 5.2 10*6/uL [place], [place] WBC (Bld) [#/Vol] 13.3 10*3/uL High 3.6 - 10.7 10*3/uL [place], [place] Test Performed by [facility], [address] [place] [id number] [place], [place] CREATININE, RANDOM URINEon 1 Creatinine (U) [Mass/Vol] 66.8 mg/dL [place] Range [place], [place] Chlamydia and GC PCR Panelon 04-25-2020 Chlamydia and GC PCR Panel Chlamydia tra chomatis PCR --> Status: F NOT Detected Chlamydia trachomatis Nucleic Acid NOT Detected by DNA Amplification using the Muzeekid System. Culture is the only recommended test in medical-legal cases such as suspected child abuse or molestation. Chlamydia trachomatis Nucleic Acid NOT Detected by DNA Amplification using the Cepheid System. Culture is the only recommended test in medical-legal cases such as suspected child abuse or molestation. Neisseria gonorrhoeae PCR --> Status: F NOT Detected Neisseria gonorrhoeae Nucleic Acid NOT Detected by DNA Amplification using the Muzeekid System. Culture is the only recommended test in medical-legal cases such as suspected child abuse or molestation. Neisseria gonorrhoeae Nucleic Acid NOT Detected by DNA Amplification using the Muzeekid System. Culture is the only recommended test in medical-legal cases such as suspected child abuse or molestation. Normal [facility] Comment on above: Performed By: #### C TNGP ####[facility] [place], [place] Comp Metabolic Panelon 04-25 Calcium [Mass/Vol] 8.5 mg/dL Normal 8.4-10.4 [facility] Comment on above: Performed By: #### P T/AP, CMP3, HEMOG, FIBGN #### [facility] [address] [place], [place] Glucose [Mass/Vol] 97 mg/dL Normal 70-100 [facility] Comment on above: Performed By: #### P T/AP, CMP3, HEMOG, FIBGN #### [facility] [address] [place], [place] ALP [Catalytic activity/Vol] 114 U/L Normal 38-126 [facility] Comment on above: Result Comment: Slig htly hemolysed, interpret with caution. Performed By: #### P T/AP, CMP3, HEMOG, FIBGN #### [facility] [address], [place] ALT [Catalytic activity/Vol] 19 U/L Normal 0-34 [facility] Comment on above: Result Comment: The ALT test is performed by an updated assay method. Please note that the reference intervals have been changed and are now sex specific. Performed By: #### P T/AP, CMP3, HEMOG, FIBGN #### [facility] [address] [place], [place] Anion Gap 6 Normal [facility]stem Comment on above: Performed By: #### P T/AP, CMP3, HEMOG, FIBGN #### [facility] [address] [place], [place] AST [Catalytic activity/Vol] 39 U/L Normal 15-46 [facility] Comment on above: Result Comment: Slbridger htly hemolysed, interpret with caution. Performed By: #### P T/AP, CMP3, HEMOG, FIBGN #### [facility] [address] [place], [place] Bilirubin [Mass/Vol] 0.5 mg/dL Normal 0.2-1.3 [facility] Comment on above: Performed By: #### P T/AP, CMP3, HEMOG, FIBGN #### [place] [address] [place], [place] CO2 [Moles/Vol] 20 mmol/L Low 22-30 [facility] Comment on above: Performed By: #### P T/AP, CMP3, HEMOG, FIBGN #### [facility] [address], [place] Creatinine [Mass/Vol] 0.63 mg/dL Normal 0.52-1.25 [facility] Comment on above: Performed By: #### P T/AP, CMP3, HEMOG, FIBGN #### [facility] [address], [place] eGFR OTHER > 90.0 Normal >60 [facility] Comment on above: Result Comment: KDIG O guidelines provide the following GFR categories: Stage GFR(ml/min/1.73 m2) Terms G1 >=90 Normal or high G2 60-89 Mildly decreased* G3a 45-59 Mildly to moderately decreased G3b 30-44 Moderately to severely decreased G4 15-29 Severely decreased G5 <15 Kidney failure *Relative to young adult level. In the absence of evidence of kidney damage, neither GFR category G1 nor G2 fulfill the criteria for CKD. The CKD-EPI equation is validated in individuals 18 years of age and older. Currently the best equation for estimating glomerular filtration rate (GFR) from serum creatinine in children is the Bedside Whitney equation. It is less accurate in patients with extremes of muscle mass, restriction of dietary protein, ingestion of creatine, extra-renal metabolism of creatinine, or treatment with medications that affect renal tubular creatinine secretion. Performed By: #### P T/AP, CMP3, HEMOG, FIBGN #### [place] [address] [place], [place] GFR/1.73 sq M.predicted maris g blacks MDRD (S/P/Bld) [Vol rate/Area] mL/min/{1.73_m2} Normal >60 [facility] Comment on above: Performed By: #### P T/AP, CMP3, HEMOG, FIBGN #### [place] [address] [place], [place] Protein [Mass/Vol] 6.9 g/dL Normal 6.3-8.2 [facility] Comment on above: Performed By: #### P T/AP, CMP3, HEMOG, FIBGN #### [place] [address] [place], [place] Urea nitrogen [Mass/Vol] 14 mg/dL Normal 7-20 [facility] Comment on above: Performed By: #### P T/AP, CMP3, HEMOG, FIBGN #### [place] [address] [place], [place] Potassium [Moles/Vol] 4.3 mmol/L Normal 3.5-5.1 [facility] Comment on above: Result Comment: Slig htly hemolysed, interpret with caution. Performed By: #### P T/AP, CMP3, HEMOG, FIBGN #### [place] [address] [place], [place] Sodium [Moles/Vol] 134 mmol/L Low 135-145 [facility] Comment on above: Performed By: #### P T/AP, CMP3, HEMOG, FIBGN #### [place] [address] [place], [place] Albumin [Mass/Vol] 3.4 g/dL Low 3.5-5.0 [facility] Comment on above: Performed By: #### P T/AP, CMP3, HEMOG, FIBGN #### [place] [address] [place] [address] Chloride [Moles/Vol] 107 mmol/L Normal 98-107 [facility] Comment on above: Performed By: #### P T/AP, CMP3, HEMOG, FIBGN #### [facility] [address] [place] [address] Comprehensive Metabolic Pane parag 04-25-2020 Albumin [Mass/Vol] 3.4 g/dL Low 3.5 - 5 g/dL [place], [place] ALP [Catalytic activity/Vol] 114 U/L 38 - 12 6 U/L [place], [place] Comment on above: Slightly hemolysed, interpret with caution. ALT [Catalytic activity/Vol] 19 U/L 0 - 34 U/L [place], [place] Comment on above: The ALT test is perf ormed by an updated assay method. Please note that the reference intervals have been changed and are now sex specific. Anion gap [Moles/Vol] 6 mmol/L [place], [place] AST [Catalytic activity/Vol] 39 U/L 15 - 46 U/L [place] Comment on above: Slightly hemolysed, interpret with caution. Bilirubin Ql (U) 0.5 mg/dL 0.2 - 1.3 mg/dL [place], [place] Calcium [Mass/Vol] 8.5 mg/dL 8.4 - 10.4 mg/dL [place] Chloride [Moles/Vol] 107 mmol/L 98 - 107 mmol/L [place] CO2 [Moles/Vol] 20 mmol/L Low 22 - 30 mmol/L [place] Creatinine [Mass/Vol] 0.63 mg/dL 0.52 - 1.25 mg /dL [place] EGFR IF NonAfrican Polish >90.0 >60 mL/m in [place], [place] Comment on above: KDIGO guidelines pro vide the following GFR categories: Stage GFR(ml/min/1.73 m2) Terms G1 >=90 Normal or high G2 60-89 Mildly decreased* G3a 45-59 Mildly to moderately decreased G3b 30-44 Moderately to severely decreased G4 15-29 Severely decreased G5 <15 Kidney failure *Relative to young adult level. In the absence of evidence of kidney damage, neither GFR category G1 nor G2 fulfill the criteria for CKD. The CKD-EPI equation is validated in individuals 18 years of age and older. Currently the best equation for estimating glomerular filtration rate (GFR) from serum creatinine in children is the Bedside Whitney equation. It is less accurate in patients with extremes of muscle mass, restriction of dietary protein, ingestion of creatine, extra-renal metabolism of creatinine, or treatment with medications that affect renal tubular creatinine secretion. GFR/1.73 sq M predicted among blacks MDRD (S/P/Bld) [Vol rate/Area] mL/min/{1.73_m2} >60 mL/min [place], [place] Glucose [Mass/Vol] 97 mg/dL 70 - 100 mg/dL [place], [place] Interpretation and review of laboratory results Abnormal [place] Potassium [Moles/Vol] 4.3 mmol/L 3.5 - 5.1 mmol /L [place] Comment on above: Slightly hemolysed, interpret with caution. Protein [Mass/Vol] 6.9 g/dL 6.3 - 8.2 g/dL [place] Sodium [Moles/Vol] 134 mmol/L Low 135 - 145 mmol/L [place] Urea nitrogen [Mass/Vol] 14 mg/dL 7 - 20 mg/d L [place] Creatinine, Ur Randomon 03-29 Creatinine, Ur Random 66.8 mg/dL Normal No Range [facility] Comment on above: Performed By: #### C RTUR, TPUR, MAT #### [facility] [address] [place] [address] Fibrinogenon 04-25-2020 Fibrinogen 390 mg/dL Normal 200-400 [place] Comment on above: Performed By: #### P T/AP, CMP3, HEMOG, FIBGN #### [facility] [address] [place] [address] Hemogramon 04-25-2020 Erythrocyte distribution wid th (RBC) [Ratio] 18.2 % High 11.5-14.5 [facility] Comment on above: Performed By: #### P T/AP, CMP3, HEMOG, FIBGN #### [facility] [address], [place] Hematocrit (Bld) [Volume fraction] 30.6 % Low 3 5.0-47.0 [facility] Comment on above: Performed By: #### P T/AP, CMP3, HEMOG, FIBGN #### [place] [address] [address] [place], [place] Hemoglobin (Bld) [Mass/Vol] 9.7 g/dL Low 11.7-16. 0 [facility] Comment on above: Performed By: #### P T/AP, CMP3, HEMOG, FIBGN #### [place] [address] [place], [place] MCH (RBC) [Entitic mass] 26.2 pg Normal 26.0-34.0 [facility] Comment on above: Performed By: #### P T/AP, CMP3, HEMOG, FIBGN #### [place] [address] [place], [place] MCHC 31.9 % Low 32.0-36.0 [facility] Comment on above: Performed By: #### P T/AP, CMP3, HEMOG, FIBGN #### [place] [address] [place], [place] MCV (RBC) [Entitic vol] 82.2 fL Normal 79.0-98.0 [facility] Comment on above: Performed By: #### P T/AP, CMP3, HEMOG, FIBGN #### [place] [address] [place], [place] Platelet mean volume (Bld) [Entitic vol] 8.1 fL Normal 7.4-10.4 [facility] Comment on above: Performed By: #### P T/AP, CMP3, HEMOG, FIBGN #### [address] Platelets (Bld) [#/Vol] 249 10*3/uL Normal 140-440 [facility] Comment on above: Performed By: #### P T/AP, CMP3, HEMOG, FIBGN #### [facility] [address] [place], [place] RBC (Bld) [#/Vol] 3.72 10*6/uL Low 3.80-5.20 [facility] Comment on above: Performed By: #### P T/AP, CMP3, HEMOG, FIBGN #### [place] [address] [place], [place] WBC (Bld) [#/Vol] 13.3 10*3/uL High 3.6-10.7 [facility] Comment on above: Performed By: #### P T/AP, CMP3, HEMOG, FIBGN #### [place] [address] [place], [place] Medication Assisted Treatmen t Panelon 04-25-2020 Fentanyl Negative Normal [facility] Comment on above: Performed By: #### C RTUR, TPUR, MAT #### [place] [address] [place], [place] Amphetamines Ql (U) Negative Normal [facility] Comment on above: Performed By: #### C RTUR, TPUR, MAT #### [place] [address] [place], [place] Barbiturates Negative Normal [facility] Comment on above: Performed By: #### C RTUR, TPUR, MAT #### [place] [address] [place], [place] Benzodiazepines Ql (U) Negative Normal [facility] Comment on above: Performed By: #### C RTUR, TPUR, MAT #### [place] [address] [place], [place] Buprenorphine Screen Negative Normal [facility] Comment on above: Performed By: #### C RTUR, TPUR, MAT #### [place] [address] [place], [place] Cocaine Ql (U) Negative Normal [facility] Comment on above: Performed By: #### C RTUR, TPUR, MAT #### [place] [address] [address] [place], [place] Ethanol [Mass/Vol] Negative Normal [facility] Comment on above: Performed By: #### C RTUR, TPUR, MAT #### [facility] [address], [place] Methadone Ql (U) Negative Normal [facility] Comment on above: Performed By: #### C RTUR, TPUR, MAT #### [facility] [address], [place] Opiates Ql (U) Negative Normal [facility] Comment on above: Performed By: #### C RTUR, TPUR, MAT #### [facility] [address], [place] Oxycodone/Oxymorphone Negative Normal [facility] Comment on above: Performed By: #### C RTUR, TPUR, MAT #### [facility] [address], [place] PCP Negative Normal [facility] Comment on above: Performed By: #### C RTUR, TPUR, MAT #### [facility] [address], [place] THC Negative Normal [facility] Comment on above: Performed By: #### C RTUR, TPUR, MAT #### [facility] [address], [place] Amphetamines Ql (U) Negative [facility] [place] Benzodiazepines Ql (U) Negative [facility] Cocaine Ql (U) Negative [facility] [place], [place] Ethanol [Mass/Vol] Negative [facility] [place] Methadone Ql (U) Negative [facility] [place], [place] Opiates Ql (U) Negative [facility] [place], [place] Sodium [Moles/Vol] See Below [facility], [place] Comment on above: The expected value f or the drugs listed above is Negative. The following drugs or drug groups have been screened for by Immunoassay at the following thresholds: Amphetamine class(1000ng/mL), Barbituates(200ng/mL), Benzodiazepines(200ng/mL), Cocaine(300ng/mL), Ethanol (50 ng/mL), Methadone(300ng/mL), Opiates(300ng/mL), Oxycodone(100ng/mL), PCP(25ng/mL), Buprenorphine(5ng/mL), THC(50ng/mL), Fentanyl(2ng/mL). Positive results are NOT confirmed by a more specific alternative method unless requested. If confirmation is needed, request confirmation under separate order. NOTE: These results are for medical treatment only. Analysis performed using non-forensic procedures. Test Performed by [facility], [address] [place] [address] MAT Panel Test Comment See Below Normal [facility] Comment on above: Result Comment: The expected value for the drugs listed above is Negative. The following drugs or drug groups have been screened for by Immunoassay at the following thresholds: Amphetamine class(1000ng/mL), Barbituates(200ng/mL), Benzodiazepines(200ng/mL), Cocaine(300ng/mL), Ethanol (50 ng/mL), Methadone(300ng/mL), Opiates(300ng/mL), Oxycodone(100ng/mL), PCP(25ng/mL), Buprenorphine(5ng/mL), THC(50ng/mL), Fentanyl(2ng/mL). Positive results are NOT confirmed by a more specific alternative method unless requested. If confirmation is needed, request confirmation under separate order. NOTE: These results are for medical treatment only. Analysis performed using non-forensic procedures. Performed By: #### C RTUR, TPUR, MAT #### [place] [address] [place] [address] Metabolic Panelon 04-25-2020 Sodium [Moles/Vol] Negative [place], [place] Otheron 04-25-2020 Test Performed by [facility], [facility] [address] Test Performed by [place] [address] PROTEIN, URINE, RANDOMon Interpretation and review of laboratory results Abnormal [place], [place] Protein (U) [Mass/Vol] 88 mg/dL High No Range [place] PROTIME/INR & PTTon 04-25-20 20 INR Coag (PPP) [Relative time] 0.9 {INR} [place], [place] Comment on above: Recommended Anticoag ulant Therapy: SEE BELOW ----- INR of 2.0 - 3.0 : - Prophylaxis of Venous Thrombosis (high-risk surgery) - Treatment of Venous Thrombosis - Treatment of Pulmonary Embolism (Includes tissue heart valves, Acute Myocardial Infarction to prevent systemic embolism, Valvular Heart Disease, and Atrial Fibrillation) ----- INR of 2.5 - 3.5 : - Mechanical Prosthetic Valves (high risk) - If oral anticoagulant therapy is used to prevent Myocardial Infarction Protein, Ur Randomon 020 Protein, Ur Random 88 mg/dL High No Range [facility] Comment on above: Performed By: #### C RTUR, TPUR, MAT #### [address] [place], [place] Protime AND APTTon 0 aPTT Coag (Bld) [Time] 21.4 s Normal 20.0-30.5 [place], [place] Comment on above: NOTE: The therapeuti c time for Heparin anticoagulation, based on Xa activity inhibition, is an APTT of 46-80 seconds. Result Comment: NOTE : The therapeutic time for Heparin anticoagulation, based on Xa activity inhibition, is an APTT of 46-80 seconds. Performed By: #### P T/AP, CMP3, HEMOG, FIBGN #### [facility] [employer] [address] INR 0.9 Normal 0.9-1.1 [facility] Comment on above: Result Comment: Trell mmended Anticoagulant Therapy: SEE BELOW ----- INR of 2.0 - 3.0 : - Prophylaxis of Venous Thrombosis (high-risk surgery) - Treatment of Venous Thrombosis - Treatment of Pulmonary Embolism (Includes tissue heart valves, Acute Myocardial Infarction to prevent systemic embolism, Valvular Heart Disease, and Atrial Fibrillation) ----- INR of 2.5 - 3.5 : - Mechanical Prosthetic Valves (high risk) - If oral anticoagulant therapy is used to prevent Myocardial Infarction Performed By: #### P T/AP, CMP3, HEMOG, FIBGN #### [facility] [employer] [place] [address] [place] [address] PT Coag (PPP) [Time] 9.6 s Normal 9.0-12.0 [facility], [place] Comment on above: . Result Comment: . Performed By: #### P T/AP, CMP3, HEMOG, FIBGN #### [facility] [address] [place] [address] TS GELon 04-25-2020 TS GEL ABO Group: O Rh, Gel: POS Antibody Screen Gel: NEG Normal [facility] Comment on above: Performed By: #### T SGL ####[facility] [employer] [facility] TYPE AND SCREENon 04-25-2020 Sodium [Moles/Vol] Negative [facility] Sodium [Moles/Vol] O [facility] Sodium [Moles/Vol] Positive [facility] Test Performed by [facility], [address] [place] [address] [facility] ABO, External Resulton 04-10 ABO, External Result O [facility] C. Trachomatis, External Res ulton 04-10-2020 C. Trachomatis, External Result Negative [facility] HIV, External Resulton 04-10 HIV, External Result Negative [facility] Hepatitis B, External Result on 04-10-2020 Hep B, External Result Negative [facility] N. Gonorrhoeae, External Res ulton 04-10-2020 N. Gonorrhoeae, External Result Negative [facility] Otheron 04-10-2020 Verified with Fer Alejo rn [facility] RPR, External Labon 04-10-20 20 RPR, External Result Negative [facility] Rh Factor, External Resulton 04-10-2020 Rh Factor, External Result Positive [facility] Rubella Titer, External Resu lton 04-10-2020 Rubella Titer, External Result IMMUNE [facility] Progress Noteon 03-08-2020 [employer] Authentication Interface Message Text Pediatric Cardiology Echocardiogra m Visit: Consultation REASON FOR CONSULTATION: Anand Herrera is a 19 y.o. old female being seen today in our Cardiology Clinic at the request of Ozzy Marcum for our opinion or medical advice regarding cardiac evaluation in the setting of absent right hand. HPI: Anand Herrera is a 19 y.o. year old mom who is referred for echocardiogram today due to limb abnormality. Fetus was found to have absent right hand on routine anatomic obstetrical ultrasound. Patient was seen by M with obstetrical ultrasound and genetic counseling performed on 02/22/20. 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 No amniotic bands were seen. Patient underwent genetic counseling related to this defect, and consultation was arranged with pediatric orthopedics. Cell free DNA aneuploidy screen performed and found to be low-risk. echocardiogram was ordered due to the limb anomaly, which prompted referral here today. A echocardiogram was performed by M as part of their evaluation, and felt to be normal. Anand Herrera attended today's visit with the father of the baby. The patient is currently 23 weeks' gestation, with an OTF of 06/29/2020. This has been complicated by UTI, for which patient is currently on antibiotic therapy, GERD, for which she uses Tums as needed, and ADHD, for which patient uses Vyvanse when needed. She has had no serious illnesses during this , and no hospital stays. She is taking vitamins. No reported issues with gestational diabetes or hypertension. Father of the baby reports that his sister was born really preemie and had to have a hole closed in her heart while in the NICU. Other than this, there is no family history of congenital heart disease. CURRENT PROBLEM LIST: Patient Active Problem List Diagnosis complicated by limb abnormality CURRENT MEDICATIONS: Current Outpatient Medications Medication Sig Dispense Refill calcium carbonate (TUMS) 500 MG chewable tablet Take by mouth 4 times daily VYVANSE 60 MG capsule TAKE 1 CAPSULE BY MOUTH ONCE A DAY cephALEXin (KEFLEX) 500 MG capsule Take 500 mg by mouth every 6 hours Vit-Fe Fumarate-FA ( VITAMIN PO) Take 1 Tab by mouth daily triamcinolone (KENALOG) 0.1 % ointment DAWN EXT AA ONCE DAILY PRF ITCHING No current facility-administered medications for this visit. PAST MEDICAL HISTORY: Past Medical History: Diagnosis Date ADHD Gastrointestinal complaints, nonspecific 2018 Hx abdominal pain- negative colonscopy Psychiatric problem UTI (urinary tract infection) PAST SURGICAL HISTORY: Past Surgical History: Procedure Laterality Date COLONOSCOPY 2018 ALLERGIES: No Known Allergies FAMILY/SOCIAL HISTORY: History reviewed. No pertinent family history. The patient has no other children. ASAD's sister was premature, required intervention for a hole in the heart while in the NICU. Otherwise, there is no family history of congenital cardiac disease. Social History Socioeconomic History Marital status: Significant Other Spouse name: None Number of children: None Years of education: None Highest education level: None Occupational History None Tobacco Use Smoking status: Never Smoker Smokeless tobacco: Never Used Substance and Sexual Activity Alcohol use: Never Drug use: Never Sexual activity: None Other Topics Concern None Social History Narrative None Social Determinants of Health Social determinant risk not applicable to this patient. echocardiogram findings: This was a echocardiogram of reasonably good quality. The lie was breech at the time of this study. biometry matched the current age of approximately 23 weeks' gestation. Segmental anatomy: Results for orders placed or performed in visit on 03/08/20 Echo New Narrative [place] [address] [email or web address] Echocardiogram Report M-mode, complete 2D, complete spectral Doppler, and color Doppler PATIENT: Anand Herrera STUDY DATE/TIME: Mar 08 2020 12:04PM HEIGHT: : 2000 WEIGHT: AGE: 19yr BSA/BMI: / GENDER: F BP: 137 / 64 LOCATION: [facility] REFERRING PHYSICIAN: Ozzy Martinez Md ORDERING PROVIDER: Darby Agee Cnp READING PHYSICIAN: Hannah Guevara MD SUMMARY: 1. HPI and indications: Absent right hand. 2. Normal echocardiogram within the limits of echocardiography. 3. This study is limited in evaluating minor valve abnormalities, septal defects, partial anomalous pulmonary venous connection, and aortic arch abnormalities. 4. The above findings, including the limitations, were discussed with the patient. Recommendations: follow-up for baby if clinically indicated. REASON FOR EXAM: Absent right hand. STUDY AND PROCEDURE DATA: Procedure Description: New ([id number]) . Study status: Routine. Location: lab. Procedure: Transabdominal echocardiography for congenital heart disease evaluation. Patient status: Outpatient. Blood pressure: 137/64 Maternal age: 19yr. : 1. Parity: 0. Gestational age: 24wk. FINDINGS: DESCRIPTION One fetus is present. Normal three vessel view. Superior vena cava 2.6mm, aorta 4.2mm, and main pulmonary artery 5.1mm. The rhythm is sinus rhythm, with a heart rate of 149bpm. The position is breech. Normal Doppler pattern of the ductus venosus, umbilical artery, and vein. Three vessel cord. ANATOMIC RELATIONSHIPS - Normal visceral situs, with left sided stomach. Left sided cardiac apex (levocardia).Normally related great vessels. VEINS AND ATRIA Atrial septum - There is a patent foramen ovale. There is a [id number] shunt. Left atrium - The atrium is normal in size. Right atrium - The atrium is normal in size. Systemic veins - Inferior vena cava and superior vena cava seen entering normally into the right atrium. Pulmonary veins: There are at least 2 out of 4 pulmonary veins seen entering normally into the left atrium, with normal Doppler pattern. A-V CANAL Tricuspid valve - The valve is structurally normal. - There is normal biphasic inflow spectral Doppler. There is no regurgitation. Mitral valve - The valve is structurally normal. - There is normal biphasic inflow spectral Doppler. There is no regurgitation. VENTRICLES Right ventricle - The cavity size is normal. Wall thickness is normal. Systolic function is qualitatively normal. Left ventricle - The cavity size is normal. Wall thickness is normal. Systolic function is quantitatively normal. The endocardial fractional shortening (MM) is 37%. CONOTRUNCUS Aortic valve - The valve is structurally normal. - There is no stenosis. There is no regurgitation. Pulmonic valve - The valve is structurally normal. - There is no stenosis. There is no regurgitation. GREAT ARTERIES Aorta - Left aortic arch is demonstrated. Normal ductal arch seen. Normally related great arteries. Pulmonary arteries - The proximal branch pulmonary arteries are normal. - Main pulmonary artery: The artery is of normal size. Systemic-pulmonary shunts - Patent ductus arteriosus. Normal pulsed wave Doppler pattern. PERICARDIUM - There is no significant pericardial effusion. *Measurements* Value Ref Z Biparietal diam (N) 5.57 cm 5.30 - -1.0 6.41 Head circum 21.13 cm -------- ---- Abdominal 19.28 cm -------- ---- circum Femur length 4.10 cm -------- ---- Humerus length 3.97 cm -------- ---- Weight (est) 611 g -------- ---- Cardiac area 509.00 mm^2 -------- ---- Thoracic area 2082.0 mm^2 -------- ---- Distal AAo diam (N) 0.42 cm 0.35 - -0.6 0.56 CA/TA 0.24 -------- ---- Femur/BPD 0.74 -------- ---- RV short axis, (N) 0.93 cm 0.68 - 0.3 D 1.12 LV short axis, (N) 1.03 cm 0.67 - 0.9 D 1.16 Main PA ID (N) 0.51 cm 0.40 - -0.4 0.67 Left ventricle Value Ref Z OTF, MM 1.03 cm -------- ---- ESD, MM 0.65 cm -------- ---- FS, MM 37 % -------- ---- Mid-wall FS, MM 18 % -------- ---- PW, ED MM 0.20 cm -------- ---- PW/ID ratio, ED 0.2 -------- ---- MM IVS/PW ratio, 0.82 -------- ---- ED MM Rel thickness, 0.4 -------- ---- ED MM Mass, MM 2 g -------- ---- Ventricular septum Value Ref Z IVS, ED MM 0.17 cm -------- ---- IVS, ES MM 0.17 cm -------- ---- IVS thickening, 0 % -------- ---- MM Aortic valve Value Ref Z Peak v, S 0.8 m/sec -------- ---- Mitral valve Value Ref Z Peak E 0.3 m/sec -------- ---- Peak A 0.51 m/sec -------- ---- Peak E/A ratio 0.59 -------- ---- Tricuspid valve Value Ref Z Peak E 0.26 m/sec -------- ---- Peak A 0.43 m/sec -------- ---- Peak E/A 0.62 -------- ---- Pulmonic valve Value Ref Z Peak v, S 0.78 m/sec -------- ---- Legend: (H) and (L) domenico values outside specified reference range. RADHA ICD Codes: (O35.8XX0) Maternal care for other (suspected) abnormality and damage not applicable or unspecified. Interpreted and electronically signed by Hannah Guevara MD 03/08/2020 17:33 Impression: History of absent right hand and short ulna, no other skeletal findings. Low risk cell free DNA screening for aneuploidy Normal echocardiogram, within the limits of echocardiography. The general limitations of echocardiography include, but are not limited to, the following: Small holes between the upper and lower chambers of the heart cannot be well seen by echocardiography. Mild narrowing of the heart valves (atrioventricular and semilunar) is not able to be detected by echocardiography. All fetuses in utero need a widely patent PDA to support normal circulation; after , most full-term babies will have spontaneous closure of the PDA within 72 hours of life. However, infants and a small percentage of term infants can have persistent patency of the ductus arteriosus after . This cannot be predicted by echocardiography. All fetuses in utero should have a widely patent foramen ovale that facilitates transport of the most oxygen-rich blood returning from the placenta to the brain and heart during development. After , this foramen ovale should close spontaneously during the first several weeks to several months of life. Persistence of the foramen ovale does occur in a certain percentage of infants, but this cannot be predicted by echocardiography. Due to the presence of a widely patent ductus arteriosus, it is difficult to fully exclude coarctation of the aorta in the fetus or aortic arch anomalies. Partial anomalous pulmonary venous return cannot be fully excluded. Recommendations: 1. No additional echocardiograms are indicated during the remainder of this , unless new concerns arise. 2. cardiology follow up for the baby if clinically indicated. The patient and father of the baby expressed understanding of all we discussed. Hannah Guevara MD [facility] Director [employer] [facility] Clinical Professor Of Legal Studies of Pediatrics [facility] Counseling and coordination of care for this patient was greater than 35minutes which is more than 50% of the total time of 60 minutes spent on the encounter. Normal [facility] Ups Driver Authentication Interface Message Text Pediatric Hand Surgery Consult Note NAME: Anand Herrera DATE OF SERVICE: 03/08/2020 PRIMARY CARE PROVIDER: Ozzy Martinez MD REFERRING PROVIDER: Ozzy Martinez MD REASON FOR CONSULTATION: Anand Herrera is being seen today for an evaluation at the request of the maternal- medicine program. CHIEF COMPLAINT: Chief Complaint Patient presents with here for discussion HISTORY OF PRESENT ILLNESS: Annad is a 19 y.o.female here for discussion of ultrasound findings suggesting transverse amputation of the right upper extremity. The patient is a mom currently at 23 weeks gestation. She has had some mild nausea but nothing dramatic. She is taking vitamins. She reports no current other health issues. She states her blood pressures have been stable. There is no family history of congenital upper extremity or hand differences. PAST MEDICAL HISTORY: Past Medical History: Diagnosis Date ADHD Gastrointestinal complaints, nonspecific 2019 Hx abdominal pain- negative colonscopy Psychiatric problem UTI (urinary tract infection) PAST SURGICAL HISTORY: Past Surgical History: Procedure Laterality Date COLONOSCOPY 2019 DRUG/FOOD ALLERGIES: No Known Allergies MEDICATIONS: Current Outpatient Medications Medication Sig Dispense Refill calcium carbonate (TUMS) 500 MG chewable tablet Take by mouth 4 times daily VYVANSE 60 MG capsule TAKE 1 CAPSULE BY MOUTH ONCE A DAY triamcinolone (KENALOG) 0.1 % ointment DAWN EXT AA ONCE DAILY PRF ITCHING cephALEXin (KEFLEX) 500 MG capsule Take 500 mg by mouth every 6 hours Vit-Fe Fumarate-FA ( VITAMIN PO) Take 1 Tab by mouth daily No current facility-administered medications for this visit. FAMILY HISTORY: Pertinent family history:Negative for congenital differences of the upper extremity OBJECTIVE: There were no vitals filed for this visit. Review of Systems: Gastrointestinal: Positive for nausea. Mild nausea during first trimester. No hyperemesis. Genitourinary: Gravid adult female Skin: Negative for color change, pallor, rash and wound. Physical Exam Constitutional: General: She is not in acute distress. Appearance: Normal appearance. She is well-developed. She is not ill-appearing, toxic-appearing or diaphoretic. HENT: Head: Normocephalic and atraumatic. Eyes: General: No scleral icterus. Right eye: No discharge. Left eye: No discharge. Conjunctiva/sclera: Conjunctivae normal. Neck: Vascular: No JVD. Trachea: No tracheal deviation. Pulmonary: Effort: Pulmonary effort is normal. Musculoskeletal: General: No swelling, deformity or signs of injury. Skin: General: Skin is warm and dry. Coloration: Skin is not jaundiced or pale. Findings: No bruising, erythema or rash. Neurological: General: No focal deficit present. Mental Status: She is alert and oriented to person, place, and time. Motor: No abnormal muscle tone. Coordination: Coordination normal. Gait: Gait normal. Orthopedic Exam: Left Hand/Wrist Exam Comments: The patient displays no obvious congenital differences of the left hand. Right Hand/Wrist Exam Comments: The patient displays no obvious congenital differences of the right hand. Imaging Results: None indicated ASSESSMENT: 1. mother at 23 weeks gestation age. 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 RECOMMENDATIONS: We had a lengthy discussion about the anatomy, the pathophysiology, the genetics and the potential treatment options for patients with symbrachydactyly. I discussed that this is the most likely diagnosis based on the ultrasound findings, although I did provide her with the caveat that until we get to examine the baby these some positions and provisional diagnoses may change. We talked a lot about how well children with some brachydactyly do because of their ability to compensate dramatically for any deficits that the congenital amputation provides. We discussed how typically they are more resilient than their age-matched controls from a psychological and self image standpoint. We also talked a bit about camps that children can go to to meet other children with similar congenital conditions. I wished her a healthy remainder of her and we will be happy to examine the baby when she is born and provide further guidance and care as necessary. Correspondence with recommendations sent to requesting provider. 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 Consent to share information with [facility] team, OB and personal care aid signed. Pt plans to deliver at [facility] with Dr Mratinez. Bottom Turning Lathe Tender is not yet decided. female fetus- name is Lucas Method of feeding: breast and bottle Ultrasound findings today: See report in procedures for details. Reinforced continued OB care with Dr Martinez- next appointment- next week Normal [facility] Ups Driver Authentication Interface Message Text [facility] genetic counseling note Consultation has been requested by Dr. Martinez Reason for Consult Suspected amniotic band with limb reduction defect History At the time of the visit, Anand Herrera was 19 y.o. and 21w5d gestation by prior ultrasound dating, with an Estimated Date of Delivery: 06/29/20. Imaging Information Her previous ultrasound revealed suspected amniotic band with limb reduction defect (absent right hand). The ultrasound performed at this visit confirmed the absent right hand. The right ulna was noted to be short but no additional skeletal concerns were noted. No amniotic bands were seen. Please refer to the ultrasound report for full details. Prior Screening/Testing She previously had Stephanie's Panorama (cell free DNA aneuploidy screening) and results were normal, suggesting a low risk for Down syndrome as well as trisomies 18 and 13, monosomy X, triploidy, and 22q deletion syndrome. Results were consistent with a female fetus. Carrier screening for 32 cystic fibrosis mutations was negative. Carrier screening for hemoglobinopathies should also be considered, if not yet completed. Carrier screening for Fragile X syndrome and spinal muscular atrophy (SMA) as recommended by ACOG and/or ACMG is also available. More comprehensive carrier screening panels for many more genetic conditions (including those listed above) are available through several companies. At this time, this testing is not specifically recommended by the professional societies. and Family History History: She reported no exposures to medications, cigarettes, alcohol, drugs, chemicals or radiation. She has no chronic conditions, including diabetes, hypertension, lupus or epilepsy. Family History: There were no reported defects, intellectual disabilities, multiple miscarriages or genetic disorders directly relevant to childbearing on either side of the family. Maternal ancestry is reportedly (not otherwise specified) and paternal ancestry is reportedly (not otherwise specified). There is no known consanguinity. 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 We discussed that congenital limb abnormalities are most often isolated and sporadic. Transverse limb deficiencies can also be the consequence of amniotic bands, ischemic injury, or seen as a feature of an underlying genetic syndrome. We discussed the potential variability in functional and cosmetic outcome. We discussed that amniotic bands occur due to rupture of the amnion, leading to free edges of tissue adhering to the fetus and entrapping parts. We explained that amniotic bands can cause a variety of asymmetrical malformations, including amputations of digits or limbs, abdominal wall defects, and facial clefts. The variation of manifestations of amniotic band sequence is likely related to the timing of the amniotic rupture and the degree to which the fetus is entangled. Abnormalities can appear similar to limb body wall complex (LBWC) and, in fact, early amnion rupture has been suggested as a potential pathogenesis of LBWC. The etiology of amniotic band sequence is not well understood, although rare associations with connective tissue disorders and teratogens have been suggested. Amniotic bands usually occur sporadically and have a very low recurrence risk, except in rare cases of connective tissue disorders of which there is no known history of in this case. There is no known association with chromosome abnormalities. The vast majority of cases of amniotic bands are best managed after delivery. Occasionally reconstructive surgery might be needed to correct deep constriction grooves, fused fingers or toes, cleft lip, or clubbed feet. Surgical needs can range from minor to complicated depending on the extent of the deformities caused by the amniotic bands. In rare instances, intervention may be possible to cut amniotic bands which may threaten to amputate a limb or constrict the umbilical cord. Continued monitoring is recommended. The presence of additional abnormalities would further raise concern for an underlying genetic syndrome. An underlying genetic syndrome may confer different recurrence risks. We reviewed the significance and limitations of her low risk cell free DNA aneuploidy screening results. We discussed the benefits, risks, and limitations of screening and testing options available to Anand Herrera including: Expanded carrier screening Cell free DNA single gene disorder screening Amniocentesis for karyotype and/or microarray as well as possible additional molecular genetic testing (eg. testing a panel of genes associated with limb abnormalities vs. whole exome sequencing) Ultrasound echocardiogram We also discussed the availability of a consultation with Pediatric Orthopedic Surgery in the Hand and Upper Extremity Clinic for continued discussion of the diagnosis, its implications, and the expected course after delivery. We also discussed the recommendation for a careful exam after and follow up with Pediatric Orthopedic Surgery for continued discussion of the most appropriate management. Follow Up She expressed understanding of the above information and elected to decline further testing. Anand Herrera also met with Jerilyn Agee, Clinical Plating Equipment Tender from our [facility]. Jerilyn will continue to help coordinate and care. consultation with Pediatric Orthopedic Surgery in the Hand and Upper Extremity Clinic is being arranged. follow up with Pediatric Orthopedic Surgery should be within one month of age or otherwise as per their recommendations. Call [phone] to schedule. Consultation with Medical Genetics should be considered in the period, especially if additional concerns are noted after delivery. The personal care aid or patient can request this consultation. Call [phone] to schedule. Indicate that you were followed by the [facility] when scheduling. Diagnosis: DIAGNOSIS. 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 Plan: 1. Continued obstetrical care with her primary explosives truck driver is recommended. 2. Follow up q4 weeks to evaluate biometric parameters and anatomy. These are planned with the [facility]/your office. 3. surveillance as follows: weekly BPP beginning at 32 weeks. 4. consultation with Pediatric Orthopedic Surgery in the Hand and Upper Extremity Clinic is being arranged. 5. Delivery is appropriate at your local institution/already planned in [place] with follow up as indicated. 6. Mode and timing of delivery are based on the usual obstetrical indications. 7. Anticipate normal nursery. OR Neonatology/Bottom Turning Lathe Tender to be present at delivery to evaluate and determine nursery placement. 8. follow up with Pediatric Orthopedic Surgery should be within one month of age or otherwise as per their recommendations. Call [phone] to schedule. 9. Consultation with Medical Genetics should be considered in the period, especially if additional concerns are noted after delivery. The personal care aid or patient can request this consultation. Call [phone] to schedule. Indicate that you were followed by the [facility] when scheduling. 9. Other follow up as clinically indicated. Her complete [facility] Plan of Care summary will be distributed. The total patient time of the visit was 30 minutes, of which greater than 50% of the time was spent counseling and coordinating care. Junior Kat MD Normal [facility] Progress Noteon 02-15-2020 Ups Driver Authentication Interface Message Text Dating for consult Normal [facility] Vital Signs Date Time Vital Sign Value Performing Clinician Facility 10-14-2022 12:27-0400 Body temperature 98.24 [degF] Nakul Cannon [facility] 10-14-2022 12:27-0400 Diastolic blood pressure 64 mm[Hg] Nakul Cannon [facility] 10-14-2022 12:27-0400 Heart rate 107 /min Nakul Cannon [facility] 10-14-2022 12:27-0400 Respiratory rate 18 /min Nakul Cannon [facility] 10-14-2022 12:27-0400 SaO2% (BldA) [Mass fraction] 100 % Naklu Cannon [facility] 10-14-2022 12:27-0400 Systolic blood pressure 113 mm[Hg] Nakul Cannon [facility] 12-19-2021 03:42-0400 Diastolic blood pressure 64 mm[Hg] Anthony Martinez [facility] 12-19-2021 03:42-0400 Heart rate 78 /min Anthony Michelle [facility] 12-19-2021 03:42-0400 Hourly Rounding Anthony Martinez [facility] 12-19-2021 03:42-0400 Nursing Progress Note Reason Other: Pt mediciated per orders. Family x1 cartside. Denies any needs at this time. Anthony Michelle [facility] 12-19-2021 03:42-0400 Respiratory rate 16 /min Anthony Michelle [facility] 12-19-2021 03:42-0400 SaO2% (BldA) [Mass fraction] 100 % Anthony Michelle [facility] 12-19-2021 03:42-0400 Systolic blood pressure 116 mm[Hg] Anthony Michelle [facility] 12-19-2021 02:40-0400 Diastolic blood pressure 70 mm[Hg] Anthony Michelle [facility] 12-19-2021 02:40-0400 Heart rate 82 /min Anthony Michelle [facility] 12-19-2021 02:40-0400 Hourly Rounding Anthony Michelle [facility] 12-19-2021 02:40-0400 Nursing Progress Note Reason Other: Pt ambulatory to bathroom and back to cart with a steady gait. Anthony Michelle [facility] 12-19-2021 02:40-0400 Respiratory rate 16 /min Anthony Michelle [facility] 12-19-2021 02:40-0400 SaO2% (BldA) [Mass fraction] 100 % Anthony Michelle [facility] 12-19-2021 02:40-0400 Systolic blood pressure 122 mm[Hg] Anthony Michelle [facility] 12-19-2021 01:53-0400 Body temperature 98.06 [degF] Anthony Michelle [facility] 12-19-2021 01:53-0400 Diastolic blood pressure 84 mm[Hg] Anthony Michelle [facility] 12-19-2021 01:53-0400 Heart rate 89 /min Anthony Michelle [facility] 12-19-2021 01:53-0400 Respiratory rate 16 /min Anthony Michelle [facility] 12-19-2021 01:53-0400 SaO2% (BldA) [Mass fraction] 100 % Anthony Michelle [facility] 12-19-2021 01:53-0400 Systolic blood pressure 149 mm[Hg] Anthony Michelle [facility] 11-01-2021 08:09-0400 Body temperature 98.42 [degF] Keanu Kamara [facility] 11-01-2021 08:09-0400 Diastolic blood pressure 90 mm[Hg] Keanu Kamara [facility] 11-01-2021 08:09-0400 Heart rate 94 /min Keanu Asad [facility] 11-01-2021 08:09-0400 Respiratory rate 18 /min Keanu Kamara [facility] 11-01-2021 08:09-0400 SaO2% (BldA) [Mass fraction] 98 % Keanu Asad [facility] 11-01-2021 08:09-0400 Systolic blood pressure 145 mm[Hg] Keanu Asad [facility] 09-18-2021 09:59-0400 Body temperature 98.06 [degF] [facility] 09-18-2021 09:59-0400 Diastolic blood pressure 87 mm[Hg] [facility] 09-18-2021 09:59-0400 Heart rate 90 /min [facility] 09-18-2021 09:59-0400 Respiratory rate 16 /min [facility] 09-18-2021 09:59-0400 SaO2% (BldA) [Mass fraction] 100 % [facility] 09-18-2021 09:59-0400 Systolic blood pressure 136 mm[Hg] [facility] 04-28-2020 07:51-0500 Body Temperature 97.81 [degF] [place] 04-28-2020 07:51-0500 BP Diastolic 68 mm[Hg] [place] 04-28-2020 07:51-0500 BP Systolic 121 mm[Hg] [place] 04-28-2020 07:51-0500 Pulse (Heart Rate) 97 /min [place] 04-28-2020 07:51-0500 Pulse Oximetry 97 % [place] 04-28-2020 07:51-0500 Respiratory Rate 18 /min [place] 04-25-2020 13:40-0500 BMI (Body Mass Index) 23.3 kg/m2 [place] 04-25-2020 13:40-0500 Body weight 63.5 kg [place] 04-25-2020 13:40-0500 Height 165.1 cm [place] Encounters Encounter Date Encounter Type Care Provider Facility Start: 03-31-2023 End: 03-31-2023 ambulatory LATANYA GUNN Not Available Start: 03-17-2023 End: 03-17-2023 ambulatory LATANYA VELIA Not Available Start: 03-12-2023 End: 03-12-2023 ambulatory LATANYA VELIA Not Available Start: 02-02-2023 End: 02-25-2023 Pre-admission assessment Ozzy Martinez [facility] Start: 02-01-2023 End: 02-01-2023 ambulatory Ozzy Perezten Facility:[facility] Start: 11-10-2022 ambulatory KELL JOHNSON Faci lity:[facility] Jacobo Mark Start: 10-14-2022 End: 10-14-2022 Emergency department patient visit Nakul Cannon Facility:[facility] Start: 10-14-2022 End: 10-14-2022 Emergency department patient visit Nakul Cannon [facility] Start: 09-26-2022 ambulatory PCP UNKNOWN [facility] Start: 09-04-2022 End: 09-05-[address] MARCO A VELIZ . Facility: Start: 08-14-2022 End: 08-15-[address] MARCO A VELIZ . Facility: Start: 12-19-2021 End: 12-19-2021 Emergency department patient visit Anthony Briscoener [facility] Start: 11-14-2021 End: 11-14-2021 Patient encounter procedure Grover Amaral OD Work Phone: Ophthalmology Comment on above: EKC (epidemic kerato conjunctivitis) (Primary Dx) Start: 11-07-2021 End: 11-07-2021 Patient encounter procedure Grover Amaral OD Work Phone: Ophthalmology Comment on above: Viral conjunctivitis (Primary Dx) Start: 11-01-2021 End: 11-01-2021 Emergency department patient visit Keanu Kamara [facility] Start: 09-18-2021 End: 09-18-2021 Emergency department patient visit Amos Espinoza [facility] Start: 04-25-2020 End: 04-28-2020 Evaluation and management of inpatient Chelsi Parra Work Phone: [facility] Procedures Date Procedure Procedure Detail Performing Clinician Start: 04-27-2020 Blood count hemoglobin Kristrun Candelaria Benjamin Work Phone: Start: 04-25-2020 Blood count complete automated Codie Hough Work Phone: Start: 04-25-2020 Blood typing serolog ic abo Codie Hough Work Phone: Start: 04-25-2020 Comprehensive metabo lic panel Codie Hough Work Phone: Start: 04-25-2020 Fibrinogen activity Whi tnmango Kidd Gianluca Work Phone: Start: 04-25-2020 PROTIME/INR & PTT Whitn mango Hough Work Phone: Start: 04-25-2020 Creatinine other source Codie Hough Work Phone: Start: 04-25-2020 Culture bacterial quanttative colony count urine Codie Hough Work Phone: Start: 04-25-2020 Iadna multiple organ isms direct probe tq Codie Hough Work Phone: Start: 04-25-2020 MEDICATION ASSISTED TREATMENT PANEL Codie Hough Work Phone: Start: 04-25-2020 Protein total xcpt refractometry urine Codie Hough Work Phone: Start: 04-25-2020 Susceptiblty stdy antimicrbial micro/agar dilutj Codie Hough Work Phone: Start: 04-10-2020 [facility] Start: 04-10-2020 C. TRACHOMATIS, EXTE RNAL RESULT Historical Provider Start: 04-10-2020 HEPATITIS B, EXTERNA L RESULT Historical Provider Start: 04-10-2020 HIV, EXTERNAL RESULT [facility] Start: 04-10-2020 N. GONORRHOEAE, EXTE RNAL RESULT Historical Provider Start: 04-10-2020 RH FACTOR, EXTERNAL RESULT Historical Provider Start: 04-10-2020 RPR, EXTERNAL RESULT [facility] Start: 04-10-2020 RUBELLA TITER, EXTER NAL RESULT Historical Provider Plan of Treatment Date Care Activity Detail Author Start: 12-26-2021 Influenza vaccination INFLUENZA (#1) [facility] Start: 10-08-2020 PAP TESTING PAP TESTING [facility] Start: 10-08-2018 Urine microalbumin profile DTAP,TDAP,TD (1 - Tdap) [facility] Start: 10-08-2017 CHLAMYDIA SCREENING (18-24) CHLAMYDIA SCREENING (18-24) [facility] Start: 10-08-2017 GC (GONORRHEA) SCREENING (18-24) GC (GONORRHEA) SCREENING (18-24) [facility] Start: 10-08-2017 HEPATITIS C SCREENING HEPATITIS C SCREENING [facility] Start: 10-08-2017 HIV SCREENING HIV SCREENING [facility] Start: 10-08-2013 PEDS TO ADULT TRANSITION ANNUAL ASSESSMENT PEDS TO ADULT TRANSITION ANNUAL ASSESSMENT [facility] Start: 2011 Adult depression screening assessment DEPRESSION SCREENING [facility] Start: 2011 PEDS TO ADULT TRANSITION INITIAL DISCUSSION PEDS TO ADULT TRANSITION INITIAL DISCUSSION [facility] Start: 10-08-2010 HPV VACCINE (1 - 2-dose series) HPV VACCINE (1 - 2-dose series) [facility] Start: 04-09-2000 COVID-19 VACCINE (#1) COVID-19 VACCINE (#1) [facility] Nonrebreather mask oxygen Nonreb reather mask oxygen Respiratory Care Routine As directed - RT (PRN) until discontinued starting 04/26/2020 [place], [place] Comment on above: As directed - RT (KS N) until discontinued starting 04/26/2020 Oxygen therapy [[facility] Data Set] Initiate Oxygen Therapy Protocol Respiratory Care Routine Daily until discontinued starting 04/26/2020 [place], [place] Comment on above: Daily until disconti nued starting 04/26/2020 Spirometry panel Incentive roger metry Respiratory Care Routine Every 2hr while awake until discontinued starting 04/26/2020 [place], [place] Comment on above: Every 2hr while awak e until discontinued starting 04/26/2020 [place] [facility] Immunizations Immunization Date Immunization Notes Care Provider Fa solo 04-28-2020 tetanus toxoid, redu paula diphtheria toxoid, and acellular pertussis vaccine, adsorbed Chelsi Parra [facility] 04-27-2020 influenza, injectabl e, quadrivalent, preservative free [place], [place] 04-26-2020 influenza quadrivale nt split vaccine (FLUZONE;FLUARIX;FLULAVAL; AFLURIA) injection 0.5 mL [place], [place] 04-26-2020 diphtheria, tetanus toxoids and acellular pertussis vaccine, unspecified formulation [place], [place] Payers Date Payer Category Payer Medicaid [employer] [place] [id number] 2020-Present [phone] [address] [address] [place], [place] [address] Medicaid [id number] 2020 [employer] ( and others) [id number] 1999 Unknown [id number] 593 1999 Unknown [id number] 593 1999 Unknown [id number] 356 1999 Unknown [id number] 356 1999 Unknown [id number] 727 1999 Unknown [id number] 727 1999 Unknown [id number] 1259 1999 Unknown [id number] 1259 1999 Unknown [id number] 1259 1959 Unknown [id number] Social History Date Type Detail Facility Start: 04-28-2020 End: 11-07-2021 Tobacco smoking status VTIS Never smoker [facility] Start: 04-28-2020 End: 11-07-2021 Tobacco use and exposure Never used [place], [place] Start: 04-28-2020 Alcohol intake Ex-drinker (finding) [place], [place] Start: 1999 Sex Assigned At Not on file [place], [place] Start: 10-28-2021 End: 11-07-2021 Exposure to SARS-CoV-2 (event) Not sure [place], [place] Tobacco [facility] Comment on above: denies Sex Assigned At Female [facility] Tobacco smoking status No Smoking Status Entered [facility] Functional Status Date Assessment Result Facility 10-14-2022 Functional Status N/A [facility] 12-19-2021 Functional Status N/A [facility] 11-01-2021 Functional Status N/A [facility] Clinical Notes 04-28-2020 to 02-01-2023 Note Date & Type Note Facility 02-01-2023 Note The following Patien t Education Materials have been given to the patient: EducationMaterial [facility] 10-14-2022 Hospital Discharg e instructions Patient Education 10/14/2022 13:55:20 Sutures, [place], or Adhesive Wound Closure, Ytjz-bo-Dcvu Sutures, [place], or Adhesive Wound Closure Doctors use stitches (sutures), azalia, skin glue (tissue adhesive), and skin tape (adhesive strips) to hold your skin together while it heals (wound closure). What your doctor will use depends on your wound. Your doctor also may use more than one way to close your wound. In most cases, your wound will be closed right away (primary skin closure). Sometimes, it may be closed later so that it can be cleaned and then heal on its own (delayed wound closure). What are the types of wound closure? Skin glue To use skin glue, your doctor will: ?Hold the edges of the wound together. ?De Leon the glue onto your skin. You may need more than one layer. ?Cover your wound with a bandage (dressing) after the glue is dry. Skin glue may be used for: ?Small wounds that are not deep (superficial wounds). ?Wounds on the face. ?Children's wounds. Skin glue is not used inside of wounds, or on wounds that are: ?Deep. ?Uneven. ?Bleeding. Some benefits of skin glue are: ?It leaves nothing that needs to be taken off. ?You do not need medicine to numb the area. ?You have less pain than with other types of closure. Skin tape Skin tape is: Made of paper that is sticky (adhesive) and has many small holes in it. Placed across your wound edges like a normal bandage. Used to close very shallow wounds. Sometimes used with sutures to help improve closure. Sutures Sutures come in many different materials, strengths, and sizes. Some sutures break down as your wound heals (absorbable). Other sutures need to be taken out (nonabsorbable). To use sutures, your doctor will: Sew your skin together with sutures and a needle. Use one long stitch or separate stitches. Tie and cut the sutures at the end. Sutures can be used for all types of wounds, including under the skin. They can cause a skin reaction that can lead to infection. Saltillo Azalia are often used to close cuts from surgery (incisions). To use azalia, your doctor will: Hold the edges of your wound close together. Place a staple across the wound. Use a tool to secure the staple to the skin. Repeat this with as many azalia as needed. Saltillo are faster to use than sutures, and they cause less reaction from your skin. Azalia need to be taken out using a tool that bends the azalia away from your skin. Follow these instructions at home: Medicines Take stds-xwh-qxnwoln and prescription medicines only as told by your doctor. If you were prescribed an antibiotic medicine, take it as told by your doctor. Do not stop taking it even if you start to feel better. Wound care Follow instructions from your doctor about how to take care of your wound and bandage. Wash your hands with soap and water for at least 20 seconds before and after touching your wound or bandage. If you cannot use soap and water, use hand silver designer. Do not try to take off or take out your wound closures unless your doctor tells you to do that. You may need a follow-up visit for your doctor to take out your closures. ?Closures may stay in place for 2 weeks or longer. ?Absorbable sutures may break down after a few days or weeks. ?If skin tape edges start to loosen and curl up, you may trim the loose edges. Do not pick at your wound. Picking can cause an infection or cause your wound to open up again. Apply ointments or creams only as told by your doctor. Check your wound every day for signs of infection. Check for: ?Redness, swelling, or pain. ?Fluid or blood. ?New warmth, a rash, or hardness at the wound site. ?Pus or a bad smell. General instructions Do not take baths, swim, or use a hot tub. Ask your doctor about taking showers or sponge baths. Do not soak your wound in water. Eat foods that include protein, vitamin A, and vitamin C. These nutrients help your wound heal. Drink enough fluid to keep your pee (urine) pale yellow. Keep all follow-up visits. Contact a doctor if: You have a fever or chills. You have redness, swelling, or pain around your wound. You have fluid or blood coming from your wound. You have new warmth, a rash, or hardness around your wound. You see that your wound becomes thick, raised, and darker in color after your sutures come out (scarring). Get help right away if: The edges of your wound start to separate. Your wound opens up again. You notice pus or a bad smell coming from your wound. Summary What your doctor uses to hold your skin together while it heals (wound closure) depends on your wound. Your doctor may use stitches (sutures), azalia, skin glue (tissue adhesive), or skin tape (adhesive strips). Do not try to take off or take out your wound closures unless your doctor tells you to do that. Do not soak your wound in water. This information is not intended to replace advice given to you by your health care provider. Make sure you discuss any questions you have with your health care provider. Document Revised: 08/19/2021 Document Reviewed: 08/19/2021 [employer] Patient Education 2022 [employer]ia. Follow Up Care 10/14/2022 12:20:41 With:Baljit Watts Address: [address], [address] [place] [address]- Business (1) When:10/17/2022 13:48:24 [facility] 12-19-2021 Evaluation + Plan note Extrac nino from: Title:ED Note Author:Anthony Martinez DO Date :12/19/21 Excessive vaginal bleeding ( N93.9: Abnormal uterine and vaginal bleeding, unspecified) Orders: ketorolac, 15 mg = 1 mL, Injection, IV Push, Once, Stop date 12/19/21 2:45:00 EDT, STAT, Start date 12/19/21 2:45:00 EDT, 12/19/21 2:45:00 EDT Lactated Ringers Injection, 1,000 mL, Soln-IV, IV, Once, Stop date 12/19/21 2:05:00 EDT, STAT, Start date 12/19/21 2:05:00 EDT, Infuse over 61, minute(s) Lactated Ringers Injection, Soln-IV, Misc, Once, Stop date 12/19/21 2:30:35 EDT, Physician Stop, 12/19/21 2:30:35 EDT Automated Diff Basic Metabolic Panel Beta hCG Qual CBC w/ Auto Diff eGFR PT & PTT [facility]08-25-2022 Hospital Discharge instructions Patient Education 12/19/2021 04:06:21 Dysfunctional Uterine Bleeding Dysfunctional Uterine Bleeding Dysfunctional uterine bleeding is abnormal bleeding from the uterus. Dysfunctional uterine bleedingincludes: A menstrual period that comes earlier or later than usual. A menstrual period that is program management intern or heavier than usual, or has large blood clots. Vaginal bleeding between menstrual periods. Skipping one or more menstrual periods. Vaginal bleeding after sex. Vaginal bleeding after menopause. Follow these instructions at home: Eating and drinking Eat well-balanced meals. Include foods that are high in iron, such as liver, meat, shellfish, greenleafy vegetables, and eggs. To prevent or treat constipation, your health care provider may recommend that you: ?Drink enough fluid to keep your urine pale yellow. ?Take qdpz-qli-tcsvygs or prescription medicines. ?Eat foods that are high in fiber, such as beans, whole grains, and fresh fruits and vegetables. ?Limit foods that are high in fat and processed sugars, such as fried or sweet foods. Medicines Take kcqi-ewj-khcnaqc and prescription medicines only as told by your health care provider. Do not change medicines without talking with your health care provider. Aspirin or medicines that contain aspirin may make the bleeding worse. Do not take those medicines: ?During the week before your menstrual period. ?During your menstrual period. If you were prescribed iron pills, take them as told by your health care provider. Iron pills help to replace iron that your body loses because of this condition. Activity If you need to change your sanitary pad or tampon more than one time every 2 hours: ?Lie in bed with your feet raised (elevated). ?Place a cold pack on your lower abdomen. ?Rest as much as possible until the bleeding stops or slows down. Do not try to lose weight until the bleeding has stopped and your blood iron level is back to normal. General instructions For two months, write down: ?When your menstrual period starts. ?When your menstrual period ends. ?When any abnormal vaginal bleeding occurs. ?What problems you notice. Keep all follow up visits as told by your health care provider. This is important. Contact a health care provider if you: Feel light-headed or weak. Have nausea and vomiting. Cannot eat or drink without vomiting. Feel dizzy or have diarrhea while you are taking medicines. Are taking control pills or hormones, and you want to change them or stop taking them. Get help right away if: You develop a fever or chills. You need to change your sanitary pad or tampon more than one time per hour. Your vaginal bleeding becomes heavier, or your flow contains clots more often. You develop pain in your abdomen. You lose consciousness. You develop a rash. Summary Dysfunctional uterine bleeding is abnormal bleeding from the uterus. It includes menstrual bleeding of abnormal duration, volume, or regularity. Bleeding after sex and after menopause are also considered dysfunctional uterine bleeding. This information is not intended to replace advice given to you by your health care provider. Make sure you discuss any questions you have with your health care provider. Document Released: 04/10/2001 Document Revised: 09/22/2018 Document Reviewed: 09/22/2018 [employer] Patient Education 2020 [employer]ia. Follow Up Care 12/19/2021 01:46:43 With:Ozzy Martinez Address: [facility] [place] [id number] Business (1) When:12/22/2021 [facility]07-21-2022 NoteHNO ID: [id number] Author: Grover Amaral, DIXON Service: ? Author Type: GALVANIZER Type: Progress Notes Filed: 11/14/2021 2:32 PM Note Text: (B30.9) Viral conjunctivitis EKC (primary encounter diagnosis) Comment: Membranes have fallen off Plan: Reduce PF to four times a day for 7 days then three times a day five days then two times a day for 5 days then one time a day for 5 days Stop Stop Abdullahi/poly dex ludwin hs Continue Cold compresses Tears PRN RTC PRN The nature of the patient's eye disease, its relationship to systemic health, its genetic components, and its prognosis have been explained to the patient/family. The treatment options/risks/benefits have been discussed. Questions answered. I have interviewed and examined Anand Herrera. I have confirmed and edited as necessary the chief complaint, history of present illness, past medical history, medications, family history, social history, review of systems, and exam findings as obtained by others. I agree with the assessment and plan as stated above,and have discussed them in detail with the patient. Grover Amaral, OD November 14, 2021 2:29 [facility]07-21-2022 History of Present illness Narrative* Grover Amaral, OD - 11/14/2021 2:14 PM EDT (B30.9) Viral conjunctivitis EKC (primary encounter diagnosis) Comment: Membranes have fallen off Plan: Reduce PF to four times a day for 7 days then three times a day five days then two times a day for 5 days then one time a day for 5 days Stop Stop Abdullahi/poly dex ludwin hs Continue Cold compresses Tears PRN RTC PRN The nature of the patient's eye disease, its relationship to systemic health, its genetic components, and its prognosis have been explained to the patient/family. The treatment options/risks/benefitshave been discussed. Questions answered. I have interviewed and examined Anand Herrera. I have confirmed and edited as necessary the chief complaint, history of present illness, past medical history, medications, family history, social history, review of systems, and exam findings as obtained by others. I agree with the assessment andplan as stated above,and have discussed them in detail with the patient. Grover Amaral, OD November 14, 2021 2:29 PM [facility] NoteHNO ID: [id number] Author: Grover Amaral OD Service: ? Author Type: GALVANIZER Type: Progress Notes Filed: 11/07/2021 4:03 PM Note Text: (B30.9) Viral conjunctivitis (primary encounter diagnosis) Comment: with membranes that bleed with removal Plan: Start PF every 2 hours Use Abdullahi/poly dex ludwin hs Cold compresses RTC 1 week The nature of the patient's eye disease, its relationship to systemic health, its genetic components, and its prognosis have been explained to the patient/family. The treatment options/risks/benefits have been discussed. Questions answered. I have interviewed and examined Anand Herrera. I have confirmed and edited as necessary the chief complaint, history of present illness, past medical history, medications, family history, social history, review of systems, and exam findings as obtained by others. I agree with the assessment and plan as stated above,and have discussed them in detail with the patient. Grover Amaral, DIXON November 07, 2021 4:03 [facility]07-14-2022 Miscellaneous Notes* Addendum Note - Grover Amaral OD - 11/07/2021 4:06 PM EDT Addended by: GROVER AMARAL on: 11/07/2021 04:06 PM Modules accepted: Orders [facility] History of Present illness Narrative* Grover mAaral OD - 11/07/2021 4:01 PM EDT (B30.9) Viral conjunctivitis (primary encounter diagnosis) Comment: with membranes that bleed with removal Plan: Start PF every 2 hours Use Abdullahi/poly dex ludwin hs Cold compresses RTC 1 week The nature of the patient's eye disease, its relationship to systemic health, its genetic components, and its prognosis have been explained to the patient/family. The treatment options/risks/benefitshave been discussed. Questions answered. I have interviewed and examined Anand Herrera. I have confirmed and edited as necessary the chief complaint, history of present illness, past medical history, medications, family history, social history, review of systems, and exam findings as obtained by others. I agree with the assessment andplan as stated above,and have discussed them in detail with the patient. Grover Amaral, OD November 07, 2021 4:03 PM documented [facility] Evaluation + Plan note Extracted from: Title:ED Note Author:Keanu Kamara DO Date: Allergic reaction (T78.40XA: Allergy, unspecified, initial encounter) Orders: predniSONE, 60 mg = 3 tab(s), Oral, Daily, X 5 day(s), # 15 tab(s), Refills(s) 0, Pharmacy: [facility]/pharmacy #[id number], 165, cm, 11/01/21 8:11:00 EDT, Height/Length Dosing, 63, kg, 11/01/21 8:11:00 EDT, Weight Dosing [facility]07-08-2022 Hospital Discharge instructions Patient Education 11/01/2021 08:25:17 Allergic Conjunctivitis, Adult Allergic Conjunctivitis, Adult Allergic conjunctivitis is inflammation of the clear membrane that covers the white part of your eye and the inner surface of your eyelid (conjunctiva). The inflammation is caused by allergies. The blood vessels in the conjunctiva become inflamed and this causes the eyes to become red or pink. The eyes often feel itchy. Allergic conjunctivitis cannot be spread from one person to another person (is not contagious). What are the causes? This condition is caused by an allergic reaction. Common causes of an allergic reaction (allergens)include: Outdoor allergens, such as: ?Pollen. ?Grass and weeds. ?Mold spores. Indoor allergens, such as: ?Dust. ?Smoke. ?Mold. ?Pet dander. ?Animal hair. What increases the risk? You may be more likely to develop this condition if you have a family history of allergies, such as: Allergic rhinitis. Bronchial asthma. Atopic dermatitis. What are the signs or symptoms? Symptoms of this condition include eyes that are: Itchy. Red. Watery. Puffy. Your eyes may also: Sting or burn. Have clear drainage coming from them. How is this diagnosed? This condition may be diagnosed by medical history and physical exam. If you have drainage from your eyes, it may be tested to rule out other causes of conjunctivitis. You may also need to see a health care provider who specializes in treating allergies (advertising photographer) or eye conditions (hide and skin fleshing machine operator) for tests to confirm the diagnosis. You may have: Skin tests to see which allergens are causing your symptoms. These tests involve pricking the skin with a tiny needle and exposing the skin to small amounts of potential allergens to see if your skinreacts. Blood tests. Tissue scrapings from your eyelid. These will be examined under a microscope. How is this treated? Treatments for this condition may include: Cold cloths (compresses) to soothe itching and swelling. Washing the face to remove allergens. Eye drops. These may be prescription or jmef-frm-lswehql. There are several different types. You may need to try different types to see which one works best for you. Your may need: ?Eye drops that block the allergic reaction (antihistamine). ?Eye drops that reduce swelling and irritation (anti-inflammatory). ?Steroid eye drops to lessen a severe reaction (vernal conjunctivitis). Oral antihistamine medicines to reduce your allergic reaction. You may need these if eye drops do not help or are difficult to use. Follow these instructions at home: Avoid known allergens whenever possible. Take or apply euha-cde-zzjfbqr and prescription medicines only as told by your health care provider. These include any eye drops. Apply a cool, clean washcloth to your eye for 10 20 minutes, 3 4 times a day. Do not touch or rub your eyes. Do not wear contact lenses until the inflammation is gone. Wear glasses instead. Do not wear eye makeup until the inflammation is gone. Keep all follow-up visits as told by your health care provider. This is important. Contact a health care provider if: Your symptoms get worse or do not improve with treatment. You have mild eye pain. You have sensitivity to light. You have spots or blisters on your eyes. You have pus draining from your eye. You have a fever. Get help right away if: You have redness, swelling, or other symptoms in only one eye. Your vision is blurred or you have vision changes. You have severe eye pain. This information is not intended to replace advice given to you by your health care provider. Make sure you discuss any questions you have with your health care provider. Document Released: 07/04/2003 Document Revised: 03/26/2018 Document Reviewed: 10/24/2016 [employer] Patient Education 2020 [employer]. Follow Up Care 11/01/2021 08:05:40 With:Johanna Huynh Address: [address] [address]- Business (1) When:11/04/2021 08:24:58 Comments:Call today to arrange for follow-up appointment on Thursday or Thursday. Return to the ED with new or worsening symptoms as discussed. With:Baljit Watts Address: [address] [place] [address]- Business (1) When:11/04/2021 08:24:46 Comments:Call the office of your primary care doctor to arrange for follow-up within the above-stated timeframe. Follow-up with your primary care doctor about this ED visit. You should review your labs, imaging, and diagnoses from this ED visit with your primary care physician. If you were prescribed medications you should discuss possible side-effects and drug interactions with your pharmacist. Call 911 or go to the nearest Emergency Department if you develop any new or worsening symptoms. [facility]05-25-2022 Hospital Discharge instructions Patient Education 09/18/2021 12:07:29 Foot Contusion Foot Contusion A foot contusion is a deep bruise to the foot. Contusions are the result of an injury to tissues and muscle fibers under the skin. The injury causes bleeding under the skin. The skin over the contusion may turn blue, purple, or yellow. Minor injuries will cause a painless contusion, but more severecontusions may stay painful and swollen for a few weeks. What are the causes? This condition is usually caused by a hard hit or direct force to your foot, such as having a heavyobject fall on your foot. What are the signs or symptoms? Symptoms of this condition include: Swelling of the foot. Pain and tenderness of the foot. Discoloration of the foot. The area may have redness and then turn blue, purple, or yellow. How is this diagnosed? This condition may be diagnosed based on: Your medical history. A physical exam. In some cases, imaging tests may be done to check for other injuries. These may include: An X-ray to check for broken bones (fractures). CT scan or MRI to check for torn or injured ligaments. How is this treated? In general, the best treatment for a foot contusion is rest, ice, pressure (compression), and elevation. This is often called RICE therapy. An elastic wrap may be recommended to support your foot. Ounv-vmr-dbntmzp anti-inflammatory medicines may also be recommended for pain control. If your swelling or pain is severe, you may be given crutches. Follow these instructions at home: RICE therapy Rest the injured area. Try to avoid standing or walking while your foot is painful. If directed, put ice on the injured area. ?Put ice in a plastic bag. ?Place a towel between your skin and the bag. ?Leave the ice on for 20 minutes, 2 3 times a day. If directed, apply light compression to the injured area using an elastic wrap. Make sure the wrap is not too tight. Remove and reapply the wrap as told by your health care provider. If your toes become numb, cold, or blue, take the wrap off and reapply it more loosely. Raise (elevate) the injured area above the level of your heart while you are sitting or lying down. General instructions Take plns-amf-nijuvgr and prescription medicines only as told by your health care provider. Use crutches as told by your health care provider, if this applies. Do not use the injured foot to support your body weight until your health care provider says that you can. Do not use any products that contain nicotine or tobacco, such as cigarettes, e- cigarettes, and chewing tobacco. These can delay healing. If you need help quitting, ask your health care provider. Keep all follow-up visits as told by your health care provider. This is important. Contact a health care provider if: Your symptoms do not improve after several days of treatment. You have redness, swelling, or pain in your foot or toes. You have difficulty moving the injured area. Your swelling or pain is not relieved with medicines. Get help right away if: You have severe pain. Your foot or toes become numb. Your foot or toes become pale or cold. You cannot move your foot or ankle. Your foot is warm to the touch. Summary A foot contusion is a deep bruise to the foot. This condition is usually caused by a hard hit or direct force to your foot. Symptoms include swelling, pain, and discoloration in the injured area. In general, the best treatment for a foot contusion is rest, ice, pressure (compression), and elevation. This information is not intended to replace advice given to you by your health care provider. Make sure you discuss any questions you have with your health care provider. Document Released: 02/02/2007 Document Revised: 12/14/2018 Document Reviewed: 12/14/2018 [employer] Patient Education 2020 [employer] Follow Up Care 09/18/2021 09:48:23 With:Baljit Link Address: [address] [place] [address] [facility] (1) When:09/21/2021 11:47:11 Comments:Return to the emergency room if your pain gets worse or any new symptom [facility]05-25-2022 Evaluation + Plan noteExtracted from: Title:ED Note Author:Amos Espinoza M.D. te:09/18/21 1. Contusion of left foot (S 90.32XA: Contusion of left foot, initial encounter) Orders: Post-op Shoe XR Foot 3+ Views Left [facility]01-02-2021 NoteDepartment of Obstetrics and Gynecology Delivery Discharge Summary Admission on 04/25/2020 1:08 PM Reason for admission: 04/25/2020 Intrapartum Course: N/A 30w6d PC-01 Indications for Delivery: Was patient delivered between 37w0d - 11m2xizbyn? NO Surgical Operations & Procedures: Date of delivery: 04/26/2020 Delivery Type: without labor Anesthesia: Spinal anesthesia Laceration(s): n/a Delivery Complications: none EBL: 700 cc Pertinent Findings & Procedures: Information for the patient's : Ree Herrera [[id number]] female Weight: 2 lb 12.3 oz (1.256 kg) Apgars: Information for the patient's : Ree Herrera [[id number]] One Minute : 6 Five Minute : 7 Course: Magnesium sulfate and Procardia for PEWSF Infant: Female Blood Type/Rh: O POS Antibody Screen: Antibody Screen Date Value Ref Range Status 04/25/2020 NEG NA Final Rubella: No results found for: RUBELLAIGG Contraception: will be discussed with her provider at [place] : no VTE Prophylaxis: Not Indicated Meds: Anand Herrera Home Medication Instructions RANDA:[id number] Printed on:04/28/20 1238 Medication Information ferrous sulfate (IRON 325) 325 (65 Fe) MG tablet Take 1 tablet by mouth 2 times daily (with meals) ibuprofen (ADVIL;MOTRIN) 600 MG tablet Take 1 tablet by mouth every 6 hours NIFEdipine (ADALAT CC) 30 MG extended release tablet Take 1 tablet by mouth daily PreNata 29-1 MG CHEW Take 1 tablet by mouth daily Vit-Fe Fumarate-FA ( VITAMIN) 27-1 MG TABS tablet Take 1 tablet by mouth daily Activity: Activity as tolerated Diet: Regular diet Follow up Care: Follow up appointment in [address] Wray in [place]. Condition on discharge: Stable Discharge to: Home Discharge date: 04/28/2020 Discharge Dx: S/P CS for category II FHR with preeclampsia with severe features Instructions to Patient:: Pelvic Rest (no intercourse, tampons, douching, etc) x 6 weeks Specific discharge instruction printed - D/C home - Baby is doing well at NICU. - Motrin and tylenol for pain medications - Milk of magnesia foconstipation - Oral Procardia XL 30 mg daily for a week. Will self monitor BP at home 4 times a day. If at 145 /95 or more ; she is instructed to let us know. She will watch for symptoms of severe features and let her provider and/or our group know - She will follow with her [facility] in [facility] will call Dr. Wray answering service at [phone] to update him with her condition, medications, instructions, and follow up. Threatened labor, antepartum [O47.00] Patient Active Problem List Diagnosis ? Acute on chronic blood loss anemia Comments: Home care, Follow-up care and control were reviewed. Signs and symptoms of mastitis and Post Depression were reviewed. The patient is to notify her physician if any of these occur. 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 documented in this encounter [facility] course Narrative No data available for this section [facility] Dis[facility] instructions No data available for this section [facility] No data available for this section [facility] Summary Purpose Family History No Family History Records FoundNo Family History Records FoundNo Family History Records FoundNo Family History Records FoundNo Family History Records FoundNo Family History Records Found No data available for this section No Family History Records Found Advance Directives No Advanced Directives Records FoundLatest Code Status on File Code Status Date Activated Date Inactivated Comments Full Code 04/26/2020 4:22 AM Full Code 04/26/2020 1:27 AM 04/26/2020 4:21 AM Full Code 04/25/2020 3:48 PM 04/26/2020 1:27 AM Hospital Course * Junior Kat MD - 04/28/2020 12:38 PM EST Department of Obstetrics and Gynecology Delivery Discharge Summary Admission on 04/25/2020 1:08 PM Reason for admission: 04/25/2020 Intrapartum Course: N/A 30w6d PC-01 Indications for Delivery: Was patient delivered between 37w0d - 01h2qvlkmu? NO Surgical Operations & Procedures: Date of delivery: 04/26/2020 Delivery Type: without labor Anesthesia: Spinal anesthesia Laceration(s): n/a Delivery Complications: none EBL: 700 cc Pertinent Findings & Procedures: Information for the patient's : Ree Herrera [[id number]] female Weight: 2 lb 12.3 oz (1.256 kg) Apgars: Information for the patient's : Ree Herrera [[id number]] One Minute : 6 Five Minute : 7 Course: Magnesium sulfate and Procardia for PEWSF Infant: Female infant Blood Type/Rh: O POS Antibody Screen: Antibody Screen Date Value Ref Range Status 04/25/2020 NEG NA Final Rubella: No results found for: RUBELLAIGG Contraception: will be discussed with her provider at [place] : no VTE Prophylaxis: Not Indicated Meds: Anand Herrera Home Medication Instructions RANDA:[id number] Printed on:04/28/20 1025 Medication Information ferrous sulfate (IRON 325) 325 (65 Fe) MG tablet Take 1 tablet by mouth 2 times daily (with meals) ibuprofen (ADVIL;MOTRIN) 600 MG tablet Take 1 tablet by mouth every 6 hours NIFEdipine (ADALAT CC) 30 MG extended release tablet Take 1 tablet by mouth daily PreNata 29-1 MG CHEW Take 1 tablet by mouth daily Vit-Fe Fumarate-FA ( VITAMIN) 27-1 MG TABS tablet Take 1 tablet by mouth daily Activity: Activity as tolerated Diet: Regular diet Follow up Care: Follow up appointment in [address] Wray in [place]. Condition on discharge: Stable Discharge to: Home Discharge date: 04/28/2020 Discharge Dx: S/P CS for category II FHR with preeclampsia with severe features Instructions to Patient:: Pelvic Rest (no intercourse, tampons, douching, etc) x 6 weeks Specific discharge instruction printed - D/C home - Baby is doing well at NICU. - Motrin and tylenol for pain medications - Milk of magnesia foconstipation - Oral Procardia XL 30 mg daily for a week. Will self monitor BP at home 4 times a day. If at 145 /95 or more ; she is instructed to let us know. She will watch for symptoms of severe features and let her provider and/or our group know - She will follow with her EXECUTIVE CHAIRMAN in [place] - I will call Dr. Wray answering service at [phone] to update him with her condition, medications, instructions, and follow up. Threatened labor, antepartum [O47.00] Patient Active Problem List Diagnosis Acute on chronic blood loss anemia Comments: Home care, Follow-up care and control were reviewed. Signs and symptoms of mastitis and Post Depression were reviewed. The patient is to notify her physician if any of these occur. Junior Kat MD on 04/28/2020 at 12:38 PM documented in this encounter Discharge Instructions * Instructions* Junior Kat MD - 04/28/2020 After Your Delivery (the Period): Your Care Instructions Thank you for allowing us to care of you at [facility]. This time can be one of many emotional ups and downs and many changes in your life. In these first weeks try to take good care of yourself because you will likely feel very tired. It may take 4 to 6 weeks to feel like yourself again, and possibly longer if you had a . FOLLOW-UP: Your follow-up care is a heath part of your treatment and safety. Follow-up with your OB providerin 4weeks or as specified by your OB provider. If you had high blood pressure, visit your OB provider within 3-5 days after being home. Most women's blood pressure will return to pre- levels after delivery. However, some patients continueto have problems with their blood pressure, and some even get worse. Very high blood pressure can lead to seizures or stroke which can be life threatening. If ordered by your doctor, take your blood pressure at home and call your OB provider if you have a high reading. Your doctor can write you a prescription for a blood pressure monitor if you do not have one Be sure to make and go to all appointments, and call your OB provider if you are having problems. It's also a good idea to know your test results and keep a list of the medicines you take. BLEEDING Vaginal bleeding will decrease in amount over the next few weeks. Bleeding may cigar packer and picker and then decrease again around 7-10 days . Use pads instead of tampons for the bloody flow that may last as long as 2 weeks. You will notice that as your activity increases, your flow may increase. Call your provider if you are saturating one maxi pad in an hour & passing large clots for 3 hours or more. ACTIVITY NO SEXUAL activity for 6 weeks or until advised by your OB provider; Nothing in vagina: intercourse, tampons, or douching. Begin to think about your reproductive life plan. Talk to your OB provider about if and when you would like another baby in the future. The recommendation for safe spacing is 18-24 months. Showering is okay; NO tub baths, swimming, or hot tubs. Gradually increase your activity. Resume exercise regimen only after advised by your )OB provider. Avoid lifting anything heavier than ten pounds or a gallon of milk for six weeks. Avoid driving 1 week for vaginal delivery and 2 weeks for section, or longer if you are onprescription pain medicine unless otherwise instructed by your OB provider . Rise slowly from a lying to sitting and then a standing position. Climb stairs carefully. You may feel tired or have a lack of energy. You may continue your vitamin to replenish nutrients post-delivery. Nap when whenever you can to catch up on sleep. EMOTIONS You may feel gale, sad, teary, & overwhelmed for the first 2 weeks ; however, feelings of depression may occur any time within the first year after delivery. Contact your OBprovider if you feel you may be showing signs of depression, or have thoughts of harmingyourself or or anyone.. WOUND CARE For Vaginal Delivery: Shower daily, and cleanse your perineum (bottom) with mild soap from front to back. Use the plasticsquirt bottle until bleeding stops each time you use the restroom instead of wiping with toilet paper. Ease soreness of hemorrhoids and the area between your vagina and rectum with ice compresses or witch sofya pads. If used, stitches will dissolve in 4-6 weeks on their own. You may use a sitz bath or soak in a clean tub with drain open and water running for comfort. Kegel exercises will help restore bladder control. To do these tighten your muscles as if you were stopping your urine flow. Hold for a few seconds and then relax. Do these throughout the day. For Section Delivery: Keep your incision clean and dry. If you had steri-strips you may remove these once they start falling off. If you have azalia they need to be removed 3-10 daysafter delivery. If you have steri-strips, remove after 7 - 10 days. Do not wear clothing that irritates the incision line. If your incision is in a crease that is not dry, use a hair-dryer to dry the area 3 times a day. If you develop fever, shaking chills, redness, swelling, drainage or discharge from your wound, or if your wound looks like it is coming apart call your provider immediately. BREAST CARE If you develop a warm, red, tender area on your breast or develop a fever contact your OB provider.If your breasts become engorged ask your provider because treatment can vary according to your needs. DIET & CONSTIPATION Eat a well-balanced diet focusing on foods high in fiber and protein such as: whole grain cereals and breads, fruits and vegetables and legumes (eg, beans, lentils) Drink 8-10 glasses of fluids daily, especially water. Limit caffeine. To avoid constipation you may take a mild bzbs-sjy-dffejeg stool softener (such as colace) as recommended by your OB provider. SWELLING Try to keep your legs elevated when you are sitting or lying down. Stay hydrated and take walks. If you had high blood pressure, weigh yourself at the same time each day. Write down your weight and take the record to your doctor appointment. MEDICATIONS Take all medications prescribed for you exactly as ordered. Don't take any drugs not prescribed to you or over the counter medicines unless recommended by yourprovider. Don't smoke. WHEN TO CALL THE OB PROVIDER Signs of infection, including fever and chills Increased bleeding: soaking more than one pad an hour or passing clots the size of an egg or larger. Wounds that become red, swollen or drain pus Vaginal discharge that smells foul New pain, swelling, or tenderness in your legs Pain that you can't control with the medications you've been given Pain, burning, urgency or frequency of urination, or persistent bleeding in the urine Cough, shortness of breath, or serious difficulty catching your breath Chest pain or pain in the upper right area of your belly Headache (very painful) or vision changes like blurry or double vision, seeing spots or 'auras' Swelling that is worse or weight gain of more than 3 pounds in 3 days Depression, suicidal thoughts, or feelings of harming someone else Breasts that are hot, red and accompanied by fever Any cracking or bleeding from the nipple or areola (the dark-colored area of the breast) You may have been given a magnet like this: If so, we encourage you to use it on your refrigerator as a reminder of when to call your OB provider. In case of an emergency, call 911 immediately. If you are Covid-19 positive or a Person Under Investigation (PUI) These could be signs that your COVID-19 symptoms are worsening and you may need emergency care: You are severely dizzy or lightheaded. You are confused or can't think clearly. Your face and lips have a blue color. You are unable to respond to others or are very hard to wake up. Prevention steps for People with confirmed or suspected COVID-19 (including persons under investigation) who do not need to be hospitalized and People with confirmed COVID-19 who were hospitalized and determined to be medically stable to go home Your healthcare provider and public health staff will evaluate whe ther you can be cared for at home. If it is determined that you do not need to be hospitalized and can be isolated at home, you willbe monitored by staff from your local or state health department. You should follow the prevention steps below until a healthcare provider or local or state health department says you can return to your normal activities. Stay home except to get medical care People who are mildly ill with COVID-19 are able to isolate at home during their illness. You should restrict activities outside your home, except for getting medical care. Do not go to work, school,or public areas. Avoid using public transportation, ride-sharing, or taxis. Separate yourself from other people and animals in your home People: As much as possible, you should stay in a specific room and away from other people in your home. Also, you should use a separate bathroom, if available. Animals: You should restrict contact with pets and other animals while you are sick with COVID-19, just like you would around other people. Although there have not been reports of pets or other animals becoming sick with COVID-19, it is still recommended that people sick with COVID-19 limit contactwith animals until more information is known about the virus. When possible, have another member ofyour household care for your animals while you are sick. If you are sick with COVID-19, avoid contact with your pet, including petting, snuggling, being kissed or licked, and sharing food. If you must care for your pet or be around animals while you are sick, wash your hands before and after you interact with pets and wear a facemask. Call ahead before visiting your provider If you have a medical appointment, call the healthcare provider and tell them that you have or may have COVID-19. This will help the healthcare provider's office take steps to keep other people from getting infected or exposed. Wear a facemask You should wear a facemask when you are around other people (e.g., sharing a room or vehicle) or pets and before you enter a healthcare provider's office. If you are not able to wear a facemask (for example, because it causes trouble breathing), then people who live with you should not stay in the same room with you, or they should wear a facemask if they enter your room. Cover your coughs and sneezes Cover your mouth and nose with a tissue when you cough or sneeze. Throw used tissues in a lined trash can. Immediately wash your hands with soap and water for at least 20 seconds or, if soap and water are not available, clean your hands with an alcohol-based hand silver designer that contains at least 60% alcohol. Clean your hands often Wash your hands often with soap and water for at least 20 seconds, especially after blowing your nose, coughing, or sneezing; going to the bathroom; and before eating or preparing food. If soap and water are not readily available, use an alcohol-based hand silver designer with at least 60% alcohol, covering all surfaces of your hands and rubbing them together until they feel dry. Soap and water are the best option if hands are visibly dirty. Avoid touching your eyes, nose, and mouth with unwashed hands. Avoid sharing personal household items You should not share dishes, drinking glasses, cups, eating utensils, towels, or bedding with otherpeople or pets in your home. After using these items, they should be washed thoroughly with soap and water. Clean all high-touch surfaces everyday High touch surfaces include counters, tabletops, doorknobs, bathroom fixtures, toilets, phones, keyboards, tablets, and bedside tables. Also, clean any surfaces that may have blood, stool, or body fluids on them. Use a household cleaning spray or wipe, according to the label instructions. Labels contain instructions for safe and effective use of the cleaning product including precautions you should take when applying the product, such as wearing gloves and making sure you have good ventilation during use of the product. Monitor your symptoms Seek prompt medical attention if your illness is worsening (e.g., difficulty breathing). Before seeking care, call your healthcare provider and tell them that you have, or are being evaluated for, COVID-19. Put on a facemask before you enter the facility. These steps will help the healthcare provider's office to keep other people in the office or waiting room from getting infected or exposed. Askyour healthcare provider to call the local or [facility] health department. Persons who are placed underactive monitoring or facilitated self- monitoring should follow instructions provided by their localhealth department or occupational health professionals, as appropriate. When working with your local health department check their available hours. If you have a medical emergency and need to call 911, notify the dispatch personnel that you have, or are being evaluated for COVID-19. If possible, put on a facemask before emergency medical services arrive. Discontinuing home isolation Patients with confirmed COVID-19 should remain under home isolation precautions until the risk of secondary transmission to others is thought to be low. The decision to discontinue home isolation precautions should be made on a ttow-zz-efoo basis, in consultation with healthcare providers and [facility]. Information on COVID-19 for all patients Call your provider before your next appointment if you develop any of the following symptoms: fever, cough, fatigue, anorexia, shortness of breath, sputum production, and muscle pains. Headache, confusion, rhinorrhea, sore throat, hemoptysis, vomiting, and diarrhea have been reported but are less common. Some persons with COVID-19 have experienced gastrointestinal symptoms such as diarrhea and nausea prior to developing fever and lower respiratory tract signs and symptoms. Ways to [place] with Anxiety & Stress It is normal to feel anxious or worried about COVID-19. You might feel sad about canceling celebrations and staying away from family and friends. Keep in mind that most people do not get severely ill from COVID-19. It is important to have a planin case you get sick to prevent spreading the disease to others including an Advanced Care Plan (communicating and documenting your desired health care plan with family and healthcare team). You can take care of yourself by: ? Taking a break from watching the news ? Take deep breaths, stretch or meditate ? Getting exercise, eating healthy foods, and drinking plenty of water ? Finding activities you can enjoy inside your home ? Staying in touch with your family and friends. Tell your partner, family, and friends how you arefeeling. Advance Care Planning People with COVID-19 may have no symptoms, mild symptoms, such as fever, cough, and shortness of breath or they may have more severe illness, developing severe and fatal pneumonia. As a result, Advance Care Planning with attention to naming a health care decision maker (someone you trust to make healthcare decisions for you if you could not speak for yourself) and sharing other health care preferences is important BEFORE a possible health crisis. Please contact your Primary Care Provider to discuss Advance Care Planning. Learning About Coronavirus (COVID-19) Coronavirus (COVID-19): Overview What is coronavirus (COVID-19)? The coronavirus disease (COVID-19) is caused by a virus. It is an illness that was first found in [facility], in March 2019. It has since spread worldwide. The virus can cause fever, cough, and trouble breathing. In severe cases, it can cause pneumonia and make it hard to breathe without help. It can cause . Coronaviruses are a large group of viruses. They cause the common cold. They also cause more serious illnesses like [place] respiratory syndrome (MERS) and severe acute respiratory syndrome (SARS). COVID-19 is caused by a novel coronavirus. That means it's a new type that has not been seen in people before. This virus spreads [id number] through droplets from coughing and sneezing. It can also spreadwhen you are close to someone who is infected. It is always good practice to clean high touch surfaces frequently and avoid touching your mouth, nose and eyes until you have washed your hands if you touched these areas. What can you do to protect yourself from coronavirus (COVID-19)? The best way to protect yourself from getting sick is to: Wear a face mask. Avoid areas where there is an outbreak. Avoid contact with people who may be infected. Wash your hands often with soap or alcohol-based hand sanitizers. Avoid crowds and try to stay at least 6 feet away from other people. Wash your hands often, especially after you cough or sneeze. Use soap and water, and scrub for at least 20 seconds. If soap and water aren't available, use an alcohol-based hand silver designer. Call 911 anytime you think you may need emergency care. For example, call if: You have severe trouble breathing. (You can't talk at all.) You have constant chest pain or pressure. You are severely dizzy or lightheaded. You are confused or can't think clearly. Your face and lips have a blue color. You pass out (lose consciousness) or are very hard to wake up. Call your OB Provider now if you develop symptoms such as: Shortness of breath. Fever. Cough. If you need to get care, call ahead to the provider's office for instructions before you go. Make sure you wear a face mask, to prevent exposing other people to the virus. Where can you get the latest information? The following health organizations are tracking and studying this virus. Their websites contain themost up-to-date information. You'll also learn what to do if you think you may have been exposed tothe virus. U.S. Centers for Disease Control and Prevention (CDC): The CDC provides updated news about the disease and travel advice. The website also tells you how to prevent the spread of infection. www.cdc.gov World Health Organization (WHO): WHO offers information about the virus outbreaks. WHO also has travel advice. www.who.int Current as of: July 27, 2019 Content Version: 12.4 [employer] Care instructions adapted under license by your healthcare professional. If you have questions about a medical condition or this instruction, always ask your healthcare professional. [employer] disclaims any warranty or liability for your use of this information. General Recommendations for Routine Cleaning and Disinfection of Households Community members can practice routine cleaning of frequently touched surfaces (for example: tables, doorknobs, light switches, handles, desks, toilets, faucets, sinks) with household pilot teacher and EPA-registered disinfectants that are appropriate for the surface, following label instructions. Labels contain instructions for safe and effective use of the cleaning product including precautions you should take when applying the product, such as wearing gloves and making sure you have good ventilation during use of the product. These guidelines are focused on household settings and are meant for the general public. ? Cleaning refers to the removal of germs, dirt, and impurities from surfaces. Cleaning does not kill germs, but by removing them, it lowers their numbers and the risk of spreading infection. ? Disinfecting refers to using chemicals to kill germs on surfaces. This process does not necessarily clean dirty surfaces or remove germs, but by killing germs on a surface after cleaning, it can further lower the risk of spreading infection. General Recommendations for Cleaning and Disinfection of Households with People Isolated in Home Care - Confirmed or suspected COVID 19 ? Household members should educate themselves about COVID-19 symptoms and preventing the spread of COVID-19 in homes. ? Clean and disinfect high-touch surfaces daily in household common areas (e.g. tables, hard-backedchairs, doorknobs, light switches, remotes, handles, desks, toilets, sinks) o In the bedroom/bathroom dedicated for an ill person: consider reducing cleaning frequency to as-needed (e.g., soiled items and surfaces) to avoid unnecessary contact with the ill person. ? As much as possible, an ill person should stay in a specific room and away from other people in their home. ? The caregiver can provide personal cleaning supplies for an ill person's room and bathroom, unless the room is occupied by child or another person for whom such supplies would not be appropriate. These supplies include tissues, paper towels, pilot teacher and EPA-registered disinfectants (see list link at CDC website). ? If a separate bathroom is not available, the bathroom should be cleaned and disinfected after each use by an ill person. If this is not possible, the caregiver should wait as long as practical after use by an ill person to clean and disinfect the high-touch surfaces. How to clean and disinfect: Hard Surfaces ? Wear disposable gloves when cleaning and disinfecting surfaces. Gloves should be discarded after each cleaning. If reusable gloves are used, those gloves should be dedicated for cleaning and disinfection of surfaces for COVID-19 and should not be used for other purposes. Consult the unit coordinator's instructions for cleaning and disinfection products used. Clean hands immediately after gloves areremoved. ? If surfaces are dirty, they should be cleaned using a detergent or soap and water prior to disinfection. ? For disinfection, diluted household bleach solutions, alcohol solutions with at least 70% alcohol, and most common EPA-registered household disinfectants should be effective. o Diluted household bleach solutions can be used if appropriate for the surface. Follow unit coordinator's instructions for application and proper ventilation. Check to ensure the product is not past itsexpiration date. Never mix household bleach with ammonia or any other cleanser. Unexpired householdbleach will be effective against coronaviruses when properly diluted. ? Prepare a bleach solution by mixing: ? 5 tablespoons (1/3rd cup) bleach per gallon of water or ? 4 teaspoons bleach per quart of water o Products with EPA-approved emerging viral pathogens [facility] iconexternal icon are expected to be effective against COVID-19 based on data for harder to kill viruses. Follow the unit coordinator's instructions for all cleaning and disinfection products (e.g., concentration, application method and contact time, etc.). Soft (porous) surfaces such as carpeted floor, rugs, and drapes Remove visible contamination if present and clean with appropriate pilot teacher indicated for use on these surfaces. After cleaning: Launder items as appropriate in accordance with the unit coordinator's instructions. If possible, launder items using the warmest appropriate water setting for the items and dry items completely, or Clothing, towels, linens and other items that go in the laundry ? Wear disposable gloves when handling dirty laundry from an ill person and then discard after eachuse. If using reusable gloves, those gloves should be dedicated for cleaning and disinfection of surfaces for COVID-19 and should not be used for other household purposes. Clean hands immediately after gloves are removed. o If no gloves are used when handling dirty laundry, be sure to wash hands afterwards. o If possible, do not shake dirty laundry. This will minimize the possibility of dispersing virus through the air. o Launder items as appropriate in accordance with the unit coordinator's instructions. If possible, launder items using the warmest appropriate water setting for the items and dry items completely. Dirtylaundry from an ill person can be washed with other people's items. o Clean and disinfect clothes hampers according to guidance above for surfaces. If possible, consider placing a bag machine tender that is either disposable (can be thrown away) or can be laundered. [facility] has a list of EPA approved cleaning products on their website - https://www.cdc.gov/coronavirus/ 2019-ncov/community/home/cleaning-disinfection.html https://www.[employer]/Vxmcw-Bkcqzgyzcab-Saqdepxp-Products-List.pdf [employer] Stores with delivery and cigar packer and picker services: [employer]: Free cigar packer and picker at locations Delivery is $12.95 a month Website - Dheere Bolo Goodrich: Insurance Broker $2.95 (1st order is free) Delivery is $14.95 Website [employer]: cistern room working supervisor is free Delivery is $5.95 [employer]: cistern room working supervisor is $4.95 Delivery is $9.95 Website [employer]: cistern room working supervisor is $4.95 Delivery is $9.95 [employer] Market: Can be ordered for delivery and cigar packer and picker with [employer] Website - www.[employer]: Free deliver for first 3 orders of $35 or more Website [employer]ke[employer] Will deliver from [employer], [employer], [employer], and [employer]. Annual membership is $99 Monthly membership is $14 documented in this encounter History of Present Illness * Augie Rodríguez IBCLC - 04/28/2020 12:11 PM EST Pt reports pumping on a regular schedule and is getting good amounts so far. Discussed options for pumping at home for preemie baby. Plans to use NICU rental at first. Mommyxpress and breast pump prescription given to patient. * Junior Kat MD - 04/28/2020 6:18 AM EST POST DAY # 2 Anand Herrera is a 19 y.o. female This patient was seen & examined today. Her was complicated by: Patient Active Problem List Diagnosis Threatened labor, antepartum Pre-eclampsia in third trimester Acute on chronic blood loss anemia She is doing well today without any complaints. +gas, no BM yet. Tolerating PO solids and liquids without nausea, abdominal pain or vomiting. Vital Signs: Vitals: 04/27/20 1204 04/27/20 1717 04/27/20 2057 04/28/20 0030 BP: 105/78 118/72 120/70 134/80 Pulse: 75 82 89 84 Resp: 20 20 16 16 Temp: 97.8 F (36.6 C) 97.1 F (36.2 C) 97.9 F (36.6 C) 97.7 F (36.5 C) TempSrc: Temporal Temporal Temporal Temporal SpO2: 98% 97% 96% 96% Weight: Height: Physical Exam: General: no apparent distress, alert and cooperative Abdomen: abdomen soft, non-distended, non-tender Fundus: non-tender, normal size, firm, below umbilicus Incision: Clean, dry, and intact Assessment and Plan: Anand Herrera is a POD # 2 s/p PLTCS 2/2 cat II FHT 1. Care - Doing well, VSS - female - Contraception: Per private attending - DVT prophylaxis: Not Indicated - Antihypertensive medication: procardia XL 30mg 2. PreEwSF - severe range Bps at [place] [place], acutely treated with 5mg IV labetalol, 100mg PO labetalol x2. - s/p magnesium for seizure ppx - UOP adequate - Bps normotensive in the last 24 hours - asymptomatic - continue Procardia XL 30mg daily 3. Acute on chronic blood loss anemia - post op Hb 7.1 from 9.7 - vital signs stable, bleeding stable - asymptomatic - continue iron and colace 4. Disposition: Continue current care Based on my clinical assessment, this patient is safe for self discharge (does not need transport by wheelchair) if she so chooses. Maternal Medicine Attending Attestation: I have performed a history and physical examination on the patient and discussed the management with the residents physician. I reviewed and agree with the findings and plan as documented in the note. 19 y.o. S/P CS. PPD # 2 The patient denies nausea, vomiting, and/or abdominal pain. She also denies blurring of vision, visual disturbances, headaches, and /or epigastric pain. Vitals: 04/27/20 1717 04/27/20 2057 04/28/20 0030 04/28/20 0751 BP: 118/72 120/70 134/80 121/68 Pulse: 82 89 84 97 Resp: 20 16 16 18 Temp: 97.1 F (36.2 C) 97.9 F (36.6 C) 97.7 F (36.5 C) 97.8 F (36.6 C) TempSrc: Temporal Temporal Temporal Temporal SpO2: 97% 96% 96% 97% Weight: Height: The patient is ambulating and afebrile Adequate pain control without oxycodone (on Motrin and tylenol) Tolerates meals.Did not have BM Plan: - D/C home today. - Baby is doing well at NICU. - Motrin and tylenol for pain medications - Milk of magnesia foconstipation - Oral Procardia XL 30 mg daily for a week. Will self monitor BP at home 4 times a day. If at 145 /95 or more ; she is instructed to let us know. She will watch for symptoms of severe features and let her provider and/or our group know - She will follow with her EXECUTIVE CHAIRMAN in [place] - I will call Dr. Wray answering service at [phone] to update him with her condition, medications, instructions, and follow up. I spent 15 minutes at the visit, with more than 50% of the total face to face time of the visit in counseling and coordination of care. Junior Kat I spent 15 minutes at the visit, with more than 50% of the total face to face time of the visit in counseling and coordination of care. Junior Kat * Jannie Villa DTR - 04/27/2020 11:11 AM EST Nutrition rescreen completed. Patient assigned a level 1. * Junior Kat MD - 04/27/2020 7:48 AM EST POST OPERATIVE DAY # 2 Anand Herrera is a 19 y.o. female This patient was seen & examined today. Her was complicated by: Patient Active Problem List Diagnosis Threatened labor, antepartum Pre-eclampsia in third trimester Today she is doing well without any chief complaint. Her lochia is light. She denies chest pain, shortness of breath, headache, lightheadedness and blurred vision. She is ambulating well. Flatus present. Bowel movement absent. Voiding spontaneously. She is tolerating solids. Pain is controlled yes. Vital Signs: Vitals: 04/26/20 1726 04/26/20 2015 04/27/20 0023 04/27/20 0448 BP: 125/80 124/74 125/86 117/74 Pulse: 83 85 89 85 Resp: 18 18 18 18 Temp: 98.5 F (36.9 C) 98.3 F (36.8 C) 97 F (36.1 C) 97.4 F (36.3 C) TempSrc: Temporal Temporal Temporal Temporal SpO2: 98% 98% 97% 97% Weight: Height: Urine Input & Output last 24hrs: Intake/Output Summary (Last 24 hours) at 04/27/2020 0749 Last data filed at 04/26/2020 1800 Gross per 24 hour Intake 500 ml Output 1320 ml Net -820 ml Physical Exam: General: no apparent distress, alert and cooperative Affect: appropriate Lungs: No increased work of breathing, good air exchange Abdomen: abdomen soft, non-distended, non-tender Fundus: non-tender, normal size, firm, below umbilicus Incision: Dressing remains in place Extremities: no calf tenderness, non edematous Labs: Lab Results Component Value Date WBC 13.3 (H) 04/25/2020 HGB 7.1 (L) 04/27/2020 HCT 30.6 (L) 04/25/2020 MCV 82.2 04/25/2020 PLT 249 04/25/2020 O POS Antibody Screen: Antibody Screen Date Value Ref Range Status 04/25/2020 NEG NA Final No results found for: RUBELLAIGG LABOR DELIVERY ??? SCD's ONLY (labor through ambulation) SCD's PLUS Prophylactic Anticoagulation until discharge SCD's PLUS Prophylactic Anticoagulation for 6 weeks SCD's PLUS Therapeutic Anticoagulation for 6 weeks Vaginal Delivery [] BMI ? 40 kg/m2 Delivery All patients Vaginal Delivery [] BMI ? 40 kg/m2 AND [] Antepartum hospitalization ? 72 hours within the past month Delivery 1 Major Risk Factor: [] BMI ? 35 kg/m2 [] Low Risk Thrombophilia [] PPH+RBCs, IR, or operation [] Infection+Antibiotics [] Antepartum hospitalization ? 72 hours within the past month [] PMH: Sickle Cell, SLE, Cardiac Dz, Active IBD, Active Cancer, Nephrotic Syndrome OR 2 Minor Risk Factors: [] Multiple gestation [] Age > 40 [] PPH ? 1,000cc [] (+)FMH of VTE [] Smoker [x] Preeclampsia [] BMI ? 40 kg/m2 AND [] Low Risk Thrombophilia OR ANY OF THE FOLLOWING: [] High Risk Thrombophilia without prior VTE [] Low Risk Thrombophilia with (+)FMH of VTE [] Any single prior VTE ANY OF THE FOLLOWING: [] Already on LMWH/UFH [] Multiple prior VTE [] High Risk Thrombophilia with prior VTE Low Risk Thrombophilia: FVL (heterozygous), Prothrombin (heterozygous), Protein C, Protein S High Risk Thrombophilia: FVL (homozygous), Prothrombin (homozygous), FVL+Prothrombin (heterozygous), Antithrombin III, APLS Assessment/Plan: 1. Anand Herrera is a POD # 2 s/p PLTCS 2/2 Cat II FHT 2. Care - Doing well, VSS - Female infant - Both breast and bottle - Contraception: Per private attending - Encourage ambulation and use of incentive spirometer - D/C hampton catheter and saline lock IV on POD #1 - Postop Hb 7.1 - VTE Prophylaxis: Not Indicated 3. PreEwSF - severe range Bps at [facility], treated with - has not received acute tx here - s/p Mag for seizure ppx - normotensive overnight with rare mild range - asx - Continue Procardia XL 30mg 4. Acute on Chronic Anemia - Hgb drop from 9.7 to 7.1 postop - EBL 700 - asx this am, VSS - scheduled iron and colace 5. Disposition: Continue current care Based on my clinical assessment, this patient is safe for self discharge (does not need transport by wheelchair) if she so chooses. Provider's Name: DO Anival Hernadez MD 04/27/2020, 7:49 AM Maternal Medicine Attending Attestation: I have performed a history and physical examination on the patient and discussed the management with the residents physician. I reviewed and agree with the findings and plan as documented in the note. 19 y.o. S/P CS. The patient denies nausea, vomiting, and/or abdominal pain. She also deniesblurring of vision, visual disturbances, headaches, and /or epigastric pain. Vitals: 04/26/20 2015 04/27/20 0023 04/27/20 0448 04/27/20 0803 BP: 124/74 125/86 117/74 117/71 Pulse: 85 89 85 87 Resp: 18 18 18 20 Temp: 98.3 F (36.8 C) 97 F (36.1 C) 97.4 F (36.3 C) 98.1 F (36.7 C) TempSrc: Temporal Temporal Temporal Temporal SpO2: 98% 97% 97% 99% Weight: Height: Ambulating and afebrile Adequate pain control Tolerates meals. Will D/C home tomorrow if stable. Baby is doing well at NICU. I spent 15 minutes at the visit, with more than 50% of the total face to face time of the visit in counseling and coordination of care. Junior Kat * Junior Kat MD - 04/26/2020 6:39 AM EST POST OPERATIVE DAY # 1 Anand Herrera is a 19 y.o. female This patient was seen & examined today. Her was complicated by: Patient Active Problem List Diagnosis Threatened labor, antepartum Today she is doing well without any chief complaint. Her lochia is light. She denies chest pain, shortness of breath, headache and lightheadedness. She is not ambulating well. Flatus absent. Bowel movement absent. Hampton catheter remains in place. She has yet to eat since surgery. Pain is controlledyes. Vital Signs: Vitals: 04/25/20 2320 04/25/20 2325 04/25/20 2330 04/26/20 0406 BP: (!) 156/88 Pulse: 87 92 96 84 Resp: 18 Temp: 97.8 F (36.6 C) TempSrc: Temporal SpO2: 97% Weight: Height: Urine Input & Output last 24hrs: Intake/Output Summary (Last 24 hours) at 04/26/2020 0639 Last data filed at 04/26/2020 0251 Gross per 24 hour Intake 1600 ml Output 955 ml Net 645 ml Physical Exam: General: no apparent distress, alert and cooperative Affect: appropriate Lungs: No increased work of breathing, good air exchange Abdomen: abdomen soft, non-distended, non-tender Fundus: non-tender, normal size, firm, below umbilicus Incision: Dressing remains in place Extremities: no calf tenderness, non edematous Labs: Lab Results Component Value Date WBC 13.3 (H) 04/25/2020 HGB 9.7 (L) 04/25/2020 HCT 30.6 (L) 04/25/2020 MCV 82.2 04/25/2020 PLT 249 04/25/2020 O POS Antibody Screen: Antibody Screen Date Value Ref Range Status 04/25/2020 NEG NA Final No results found for: RUBELLAIGG LABOR DELIVERY ??? SCD's ONLY (labor through ambulation) SCD's PLUS Prophylactic Anticoagulation until discharge SCD's PLUS Prophylactic Anticoagulation for 6 weeks SCD's PLUS Therapeutic Anticoagulation for 6 weeks Vaginal Delivery [] BMI ? 40 kg/m2 Delivery All patients Vaginal Delivery [] BMI ? 40 kg/m2 AND [] Antepartum hospitalization ? 72 hours within the past month Delivery 1 Major Risk Factor: [] BMI ? 35 kg/m2 [] Low Risk Thrombophilia [] PPH+RBCs, IR, or operation [] Infection+Antibiotics [] Antepartum hospitalization ? 72 hours within the past month [] PMH: Sickle Cell, SLE, Cardiac Dz, Active IBD, Active Cancer, Nephrotic Syndrome OR 2 Minor Risk Factors: [] Multiple gestation [] Age > 40 [] PPH ? 1,000cc [] (+)FMH of VTE [] Smoker [x] Preeclampsia [] BMI ? 40 kg/m2 AND [] Low Risk Thrombophilia OR ANY OF THE FOLLOWING: [] High Risk Thrombophilia without prior VTE [] Low Risk Thrombophilia with (+)FMH of VTE [] Any single prior VTE ANY OF THE FOLLOWING: [] Already on LMWH/UFH [] Multiple prior VTE [] High Risk Thrombophilia with prior VTE Low Risk Thrombophilia: FVL (heterozygous), Prothrombin (heterozygous), Protein C, Protein S High Risk Thrombophilia: FVL (homozygous), Prothrombin (homozygous), FVL+Prothrombin (heterozygous), Antithrombin III, APLS Assessment/Plan: 1. Anand Herrera is a POD # 1 s/p PLTCS 2/2 Cat II FHT 2. Care - Doing well, VSS - Female infant - Both breast and bottle - Contraception: Per private attending - Encourage ambulation and use of incentive spirometer - D/C hampton catheter and saline lock IV on POD #1 - Postop Hb pending - VTE Prophylaxis: Not Indicated 3. 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 Disposition: Continue current care Based on my clinical assessment, this patient is safe for self discharge (does not need transport by wheelchair) if she so chooses. Provider's Name: DO Anival Hernadez MD 04/26/2020, 6:39 AM Maternal Medicine Attending Attestation: I have performed a history and physical examination on the patient and discussed the management with the residents physician. I reviewed and agree with the findings and plan as documented in the note. 19 y.o. at 30w6d with S/P primary CS for abnormal FHT. The patient denies nausea, vomiting, and/or abdominal pain. She also denies blurring of vision, visual disturbances, headaches, and /or epigastric pain. On Magnesium sulfate. Started her on Nifidipine and will titrate the dose. Will repeat the labs Vitals: 04/25/20 2330 04/26/20 0406 04/26/20 0824 04/26/20 1156 BP: (!) 156/88 121/70 120/70 Pulse: 96 84 89 77 Resp: 18 18 16 Temp: 97.8 F (36.6 C) 97.5 F (36.4 C) 98 F (36.7 C) TempSrc: Temporal Temporal Temporal SpO2: 97% 98% 99% Weight: Height: I spent 15 minutes at the visit, with more than 50% of the total face to face time of the visit in counseling and coordination of care. Junior Kat * Jazmin Robbins MD - 04/25/2020 11:32 PM EST MFM bond underwriter physician tracing review from earlier admission with Dr. Matos for pre-eclampsia with SF at 30 5/7 weeks GA transfer from [facility] Stevens Notified by Dr. Castellanos about the concerns for well being and the concerns of the heart rate tracing. Reviewed with him real time confidentially on face time while he was in the [facility] lounge and I was at home secondary to my inability to sign in on OBTV from home. Viewed tracing with Dr. Castellanos since approximately 1529 admission time 130 baseline with variability Cat II throughout the admission with intermittent decelerations, late vs sponaneous, now since 2229 with decreasing variability and recurrent late decelerations. Given the concerns for approaching Cat III tracing with loss of variability and now what appear to be recurrent late decelerations, I will recommend delivery via Primary at 30 5/7 weeks GA. She is currently on Magnesium IV and labs from admission appear stable but recommend sending additional CBC with PT/Fibrinogen in case of concern for concealed abruption. I did not adoption counselor the patient directly of the R/B/A of and defer to Dr. Chowdhury for this. Dr. Chowdhury will perform the as he is in house currently. Jazmin Robbins * Nakul Castellanos DO - 04/25/2020 10:10 PM EST FHT cat II for periods of minimal variability and late decelerations. Moderate variability noted attimes but no accelerations. Discussed patient with Dr. Robbins, recommend to continue current management and keep CEFM as well as NPO. If FHT has recurrent decelerations or worsening variability, will most likely recommend delivery. NICU to evaluate patient. FHT cat II for recurrent late decelerations and periods of minimal variability. Variability decreasing throughout the day, as when she first arrived to [facility] more moderate than minimal. Patient rajeev q10-15 minutes but comfortable. No vaginal bleeding noted per patient. Called Dr. Robbins to review pattern. Dr. Robbins agrees that FHT persistently category II and recommends delivery at this time.NICU notified and in room to evaluate patient. Plan discussed with patient and patient reports understanding. Patient is s/p BMZx2 and on magnesium sulfate for neuroprotection/seizure ppx. Patient consented for PCD 2/2 Cat II FHT remote from delivery. Patient agreeable to blood products as well. Safety huddle called with charge nurse, OB anesthesia, Dr. Chowdhury, and primary nurse and all in agreement. Will plan for urgent non scheduled section with consent signed at 2344. documented in this encounter Assessments Diagnosis Threatened labor, antepartum Threatened premature labor, antepartum Pre-eclampsia in third trimester Mild or unspecified pre-eclampsia, antepartum Acute on chronic blood loss anemia Additional Source Comments INFORMATION SOURCE (unrecogn ized section and content) DATE CREATED AUTHOR 04/18/2020 [facility] DATE CREATED AUTHOR AUTHOR'S ORGANIZ ATION 02/28/2021 [facility] DATE CREATED AUTHOR AUTHOR'S ORGANIZ ATION 11/16/2021 [facility] DATE CREATED AUTHOR AUTHOR'S ORGANIZ ATION 09/10/2022 [facility] DATE CREATED AUTHOR AUTHOR'S ORGANIZ ATION 11/13/2022 [facility] DATE CREATED AUTHOR AUTHOR'S ORGANIZ ATION 02/04/2023 [facility] DATE CREATED AUTHOR AUTHOR'S ORGANIZ ATION 04/02/2023 [facility] EPIC Reason for Visit (unrecogniz ed section and content) Reason Comments Hypertension Reason Comments Eye Infection Both Eyes Reason Comments Conjunctivitis Follow Up Ordered Prescriptions (unrec ognized section and content) Prescription Sig Dispensed Refills Start Date End Da te Vit-Fe Fumarate-FA ( VITAMIN) 27-1 MG TABS tablet Take 1 tablet by mouth daily 30 tablet 0 04/28/2020 NIFEdipine (ADALAT CC) 30 MG extended release tablet Take 1 tablet by mouth daily 30 tablet 3 04/29/2020 ibuprofen (ADVIL;MOTRIN) 600 MG tablet Take 1 tablet by mouth every 6 hours 120 tablet 3 04/28/2020 ferrous sulfate (IRON 325) 325 (65 Fe) MG tablet Take 1 tablet by mouth 2 times daily (with meals) 30 tablet 3 04/28/2020 Care Team (unrecognized sect ion and content) Leak Inspector Relationship Specialty Start Date End Date Baljit Watts MD [address] [place] [address] PCP - General Family Practice 11/07/21 Leak Inspector Relationship Specialty Start Date End Date Baljit Watts MD [address] [place] [address] PCP - General Family Practice 11/07/21 Source Comments (unrecognize d section and content) In the event this informatio n is protected by the Federal Confidentiality of Alcohol and Drug Abuse Patient Records regulations: The Federal rules restrict any use of the information to criminally investigate or prosecute any alcohol or drug abuse patient.[facility] the event this information is protected by the Federal Confidentiality of Alcohol and Drug Abuse Patient Records regulations: The Federal rules restrict any use of the information to criminally investigate or prosecute any alcohol or drug abuse patient.[facility] FOR RECORDS PERTAINING TO PATIENTS WHO ARE OR HAVE BEEN ENROLLED IN A CHEMICAL DEPENDENCY/SUBSTANCEABUSE PROGRAM, SOME INFORMATION MAY BE OMITTED. This clinical summary was aggregated from multiple sources. Caution should be exercised in using it in the provision of clinical care. This summary normalizes information from multiple sources, and as a consequence, information in this document may materially change the coding, format and clinical context of patient data. In addition, data may be omitted in some cases. CLINICAL DECISIONS SHOULD BE BASED ON THE PRIMARY CLINICAL RECORDS. [facility]. provides no warranty or guarantee of the accuracy or completeness of information in this document.
== END 2023-03-10 09:59 | disposition home or self-care (01) ==
PROVIDERS: Admitting Provider Obstetrics & Gynecology; Visit Provider Obstetrics & Gynecology
DX: O26.893 Other specified pregnancy related conditions, third trimester (principal); O09.893 Supervision of other high risk pregnancies, third trimester; R51.9 Headache, unspecified; M54.50 Low back pain, unspecified; Z3A.35 35 weeks gestation of pregnancy
CPT/HCPCS: 36415; 59025; 76816; 76819; 80053; 81001; 82570; 84156; 84550; 85025; 85730; 96372; G0378; G0379; J0702

== ENCOUNTER 2023-03-10 22:00 | Outpatient (REF) | payer OTHER, SELFPAY ==
[2023-03-11 11:52] LABS: Total Protein Urine Random <6.0 mg/dL (<=11.9)
[2023-03-11 11:55] LABS: Total Volume 24 Hour Urine 4550 mL/24hr
--- OUTSIDE RECORDS SUMMARY | 2023-04-14 19:49 | XMS_ITS | CCD ---
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 Marco A [...] day(s), # 20 tab(s), Refills(s) 0, Pharmacy: [facility]/pharmacy #[id number], 164, cm, 10/14/22 12:30:00 EDT, Height/Length Dosing, 66, kg, 10/14/22 12:30:00 EDT, Weight Dosing Start Date: 10/14/22 Stop Date: 10/24/22 Status: Ordered Start: 10-31-2021 take 1 capsule by [facility] every twelve hours amoxicillin 500 mg Cap 500 mg = 1 cap(s), Oral, q12hr, # 20 cap(s), Refills(s) 0, Pharmacy: [facility]/pharmacy #[id number], 165, cm, 10/31/21 12:19:00 EDT, [...] tablet 3 04/29/2020 Active Start: 04-26-2020 NIFEdipine (PA OCARDIA XL) extended release tablet 30 mg [...] Date: 01/31/23 Status: Ordered polyethylene glycol 3350 85058 mg powder for oral solution (1 source) [...] for 10 day(s), 20 tab(s), Refill(s) 0, [facility]/pharmacy #[id number], 165, cm, 10/31/21 12:19:00 EDT, [...] day(s), # 15 tab(s), Refills(s) 0, Pharmacy: [facility]/pharmacy #[id number], 165, cm, 11/01/21 8:11:00 EDT, [...] Facil ity Nursing Assessmenton 023 Nursing Assessment [id number] Normal [facility] C Urineon 02-02-2023 Bacteria identified Cx Nom [...] Locations R1: This test was performed at: [facility], [address] [place] [address], [address] , , Normal [facility] Comment on above: Performed By: #### 1 [id number], [id number], 4881768, 7293605 ####[address] [place] [address] ABO/Rhon 02-01-2023 ABO/Rh Positive Invalid Interpretation Code [facility] Comment on above: Performed By: #### 1 0897763, 86141008, 5806694 ####[facility] [address] [place] [address] ABSCon 02-01-2023 ABSC Gel Interp Negative Normal [facility] Comment on above: Performed By: #### 1 5215621, 52246896, 5308358 ####[facility] [address] [place] [address] BUNon 02-01-2023 Urea nitrogen [Mass/Vol] 9 mg/dL Normal 5-21 [facility] Comment on above: Performed By: #### 2 382633, 6523298, 4566648, 40420249, 19570018, 4809403, 97510814, 3383504, 0200368, 9659637 ####[facility] [address] [place] [address] Blood Bank ID#on 02-01-2023 BBID# [id number] Invalid Interpretation Code [facility] Comment on above: Performed By: #### 1 6626099, 01629643, 7908241 ####[facility] [address] [place] [address] Buprenorphine Scr Uron 02-01 U Suboxone Scr Negative Normal Negative [facility] Comment on above: Result Comment: Nega tive Cutoff: <10 ng/mL These drug screen results are to be used for medical (i.e., treatment) purposes only. Unconfirmed drug screening results must not be used for non-medical purposes (e.g., employment testing, legal testing). Performed By: #### 1 6223532, 492447810, 8330627, 4232653 ####[facility] [address] [place] [address] CBC w/Indiceson 02-01-2023 Erythrocyte distribution wid th (RBC) [Ratio] 14.4 % High 10.9-14.2 [facility] Comment on above: Performed By: #### 2 171281, 3479181, 2501895, 02407639, 47410898, 2399059, 03664215, 9983273, 6067963, 1737219 ####[facility] [address] [place] [address] Hematocrit (Bld) [Volume fraction] 32.9 % Low 3 4.0-46.0 [facility] Comment on above: Performed By: #### 2 103079, 2471647, 4347079, 31453909, 21059394, 1326327, 36604476, 5827438, 2617241, 4442997 ####[facility] [address] [place] [address] Hemoglobin (Bld) [Mass/Vol] 11.1 g/dL Low 12.0-16. 0 [facility] Comment on above: Performed By: #### 2 522840, 5298703, 4115176, 53629594, 66842538, 3208094, 47437662, 6058809, 9407048, 3716249 ####[facility] [address] [place] [address] MCH (RBC) [Entitic mass] 30.4 pg Normal 27.0-34.0 [facility] Comment on above: Performed By: #### 2 431914, 1745160, 7943916, 57126752, 76421423, 4727077, 98471003, 2684583, 2743343, 8732850 ####[facility] [address] [place] [address] MCHC (RBC) [Mass/Vol] 33.7 g/dL Normal 31.4-36.0 [facility] Comment on above: Performed By: #### 2 096633, 1516113, 9882023, 18433942, 34778567, 5701904, 71748136, 0303913, 2946497, 9257184 ####[facility] [address] [place] [address] MCV (RBC) [Entitic vol] 90.4 fL Normal 80.0-100.0 [facility] Comment on above: Performed By: #### 2 580218, 6083139, 6893551, 60948374, 11964219, 3390600, 39878965, 9426843, 0892924, 2745301 ####[facility] [address] [place] [address] Platelet mean volume (Bld) [Entitic vol] 7.4 fL Normal 6.4-10.8 [facility] Comment on above: Performed By: #### 2 311995, 7003247, 4158760, 90125090, 92245394, 8173249, 59772424, 1430011, 4499848, 1322231 ####[facility] [address] [place] [address] Platelets (Bld) [#/Vol] 317.0 E9/L Normal 150.0-500.0 [facility] Comment on above: Performed By: #### 2 284879, 0317649, 5965218, 18547096, 63357790, 7058689, 74939180, 6791855, 4648972, 8910975 ####[facility] [address] [place] [address] RBC (Bld) [#/Vol] 3.6 E12/L Low 4.3-5.9 [facility] Comment on above: Performed By: #### 2 535624, 9793552, 7631509, 94377910, 80006029, 3924211, 70427425, 9098984, 9768636, 2513311 ####[facility] [address] [place] [address] WBC corrected for nucl RBC A uto (Bld) [#/Vol] 8.2 E9/L Normal 4.0-11.0 [facility] Comment on above: Performed By: #### 2 696751, 9531409, 9308393, 47362247, 40828662, 1350225, 47181822, 6961368, 5483626, 6825101 ####[facility] [address] [place] [address] Consent for Treatmenton Consent for Treatment [id number]#1.00TIFF Normal [facility] Creatinineon 02-01-2023 Creatinine [Mass/Vol] 0.5 mg/dL Normal 0.5-1.3 [facility] Comment on above: Performed By: #### 2 530476, 1120636, 6309576, 58195833, 34017458, 8926172, 51930907, 3436342, 5888137, 3872645 ####[facility] [address] [place] [address] Delivery Summaryon 3 Delivery Summary [id number]#1.00TIFF Normal [facility] Stainon 02-01-2023 FMHV 0 mL Invalid Interpretation Code [facility] Comment on above: Performed By: #### 2 776864, 6388314, 9292836, 40552218, 45642125, 2072750, 09471298, 2228957, 7320786, 1450414 ####[facility] [address] [place] [address] Negative Control Negative Normal [facility] Comment on above: Performed By: #### 2 736790, 6058390, 0974250, 77183349, 15594283, 2487565, 31312825, 0954170, 8019697, 7093862 ####[facility] [address] [place] [address] Fibrinogenon 02-01-2023 Fibrinogen Coag (PPP) [Mass/Vol] 409 mg/dL High 200 -393 [facility] Comment on above: Performed By: #### 2 932548, 0705161, 4951926, 66224415, 01031394, 9631177, 25033747, 5653173, 9006519, 2628745 ####[facility] [address] [place] [address] Hep Func Panelon 02-01-2023 Bilirubin.indirect [Mass or moles/Vol] UTC Abnormal 0.1-0.9 [facility] Comment on above: Result Comment: Resu lt verified by Discern Rule. Performed result UTC (Unable to Calculate) was sent as an Alpha code due the inability to calculate a valid numeric value. Performed By: #### 2 296099, 0189401, 8357494, 91727408, 59181387, 6306838, 83011866, 7479850, 7531090, 1735293 ####[facility] [address] [place] [address] Albumin [Mass/Vol] 3.0 g/dL Low 3.3-5.0 [facility] Comment on above: Performed By: #### 2 862652, 3183343, 1689996, 46772414, 31205456, 9595057, 67228005, 9738514, 2166774, 1496022 ####[facility] [address] [place] [address] Albumin/Globulin (S) [Mass conc ratio] 0.8 Low 1.1-2.2 [facility] Comment on above: Performed By: #### 2 992917, 1889707, 7554603, 10800527, 49072536, 9917028, 30140673, 8234462, 3808967, 8722384 ####[facility] [address] [place] [address] ALP [Catalytic activity/Vol] 66 Int._Unit/L Normal 21- 98 [facility] Comment on above: Performed By: #### 2 335939, 1775051, 7217043, 92824357, 79782030, 4645780, 92541910, 2524091, 5072597, 2390504 ####[facility] [address] [place] [address] ALT No additional P-5'-P [Catalytic activity/Vol] 16 Int._Unit/L Normal 6-46 [facility] Comment on above: Performed By: #### 2 475516, 7658964, 8491044, 07780878, 98193614, 1978674, 46383982, 7361120, 7875079, 5388638 ####[facility] [address] [place] [address] AST [Catalytic activity/Vol] 21 Int._Unit/L Normal 5-4 3 [facility] Comment on above: Performed By: #### 2 334386, 6662305, 2861012, 80232635, 32259994, 1661702, 14468144, 0099842, 8539985, 5201839 ####[facility] [address] [place] [address] Bilirubin [Mass/Vol] 0.3 mg/dL Normal 0.0-1.[address] [facility] Comment on above: Performed By: #### 2 371609, 0128765, 2703369, 39985531, 96379352, 3979955, 72556090, 9534259, 2500751, 9373617 ####[facility] [address] [place] [address] Globulin (S) [Mass/Vol] 3.8 g/dL Normal 1.4-4.0 [facility] Comment on above: Performed By: #### 2 900151, 9893323, 6065090, 09778956, 82038060, 6220517, 80848630, 9545984, 5784356, 8346807 ####[facility] [address] [place] [address] Protein [Mass/Vol] 6.8 g/dL Normal 6.0-7.8 [facility] Comment on above: Performed By: #### 2 623413, 2706754, 8120111, 41762338, 58554712, 4128183, 53536465, 1168124, 1184051, 5148646 ####[facility] [address] [place] [address] Bilirubin.direct [Mass/Vol] mg/dL Normal 0.1-0.4 [facility] Comment on above: Performed By: #### 2 894967, 2034718, 0970152, 36828460, 43378988, 8011088, 66504949, 4801190, 6664729, 8057415 ####[facility] [address] [place] [address] Inpatient Clinical Summaryon 02-01-2023 Inpatient Clinical Summary [address] [address] Clinical Summary Person Information Name: ANAND HERRERA [facility] Age: 22 Years : 2000 Sex: Female PCP: Baljit Watts DO Marital Status: Single Race: White Ethnicity: Non- or Language: Luxembourgish Visit Id: Visit Reason: Speciality: Acuity: Obs Enc Type: OB Triage Med Service: Obstetrics Arrival: 01/31/2023 22:47:02 Discharge: 02/01/2023 02:47:00 Dispo Type: Home (Routine DC) Address: [address] [place] [id number] Provider Notes: Diagnosis: Problems Active (01/31/2023) Iron [...] Referring Physician: Follow up: With: Address: When: [facility], [address] [place] [address] , [place], [place] [id number] Busi (more content not included)... Normal [facility] Inpatient Patient Summaryon 02-01-2023 Inpatient Patient Summary [address] [address] Patient Discharge Instructions PERSON INFORMATION [...] test results: Follow up: With: Address: When: [facility], [address] [place] [address] , [place] [address] Business (1) In 8 days 02/09/2023 Comments: [...] may feel (more content not included)... Normal [facility] Insurance Correspondenceon 1 Insurance Correspondence [id number]#1.00TIFF Normal [facility] Lyteson 02-01-2023 Anion gap [Moles/Vol] 5 mmol/L Low 6-16 [facility] Comment on above: Performed By: #### 2 362557, 7996453, 4234604, 64580772, 47846340, 6475360, 73125567, 8868864, 4742939, 4651532 ####[facility] [address] [place] [address] Chloride [Moles/Vol] 110 mmol/L Normal 101-111 [facility] Comment on above: Performed By: #### 2 398985, 6917071, 1982895, 30288678, 98402323, 8740805, 25666207, 4011517, 2273225, 9796760 ####[facility] [address] [place] [address] CO2 [Moles/Vol] 25 mmol/L Normal 21-31 [facility] Comment on above: Performed By: #### 2 356019, 1773734, 5689838, 82385332, 23996328, 5973673, 54437508, 5142932, 8823277, 9756117 ####[facility] [address] [place] [address] Potassium [Moles/Vol] 3.5 mmol/L Normal 3.5-5.3 [facility] Comment on above: Performed By: #### 2 841466, 4462877, 7871458, 74764700, 89251597, 1506028, 23394048, 7103465, 8820008, 1900954 ####[facility] [address] [place] [address] Sodium [Moles/Vol] 136 mmol/L Normal 135-145 [facility] Comment on above: Performed By: #### 2 287429, 2735321, 6641480, 79175179, 11074230, 6413705, 79257331, 3481377, 3807169, 4599086 ####[facility] [address] [place] [address] PT & PTTon 02-01-2023 aPTT Coag (PPP) [Time] 26.9 second(s) Normal 25.1-36.5 [facility] Comment on above: Result Comment: Para meter [...] the same coagulation reagent and instrumentation as [facility]. Currently there are no coagulation studies available worldwide for children to 14 days, and no normal ranges. Heparin therapeutic range (represented by Anti-Factor Xa activity of 0.2 - 0.4 U/mL) corresponds to PTT of 56.6 - 109.0 sec. Performed By: #### 2 672801, 1109450, 2209430, 28726147, 44165336, 5786403, 86028128, 6494631, 0732927, 4693856 ####[facility] [address] [place] [address] INR Coag (PPP) [Relative time] 0.9 {INR} Invalid Interpretation Code [facility] Comment on above: Result Comment: INR results are specifically intended to assess patients stabilized on long-term Anticoagulation therapy suggested INR?s ?Less Intensive Anticoagulation? 2.0 ? 3.0 Conventional Range 3.0 ? 4.5 Performed By: #### 2 658806, 1343180, 7328629, 42374708, 39364420, 0164360, 09070052, 2227767, 2988973, 5184070 ####[facility] [address] [place] [address] PT Coag (PPP) [Time] 9.7 second(s) Normal 9.4-12.5 [facility] Comment on above: Result Comment: 15 d [...] the same coagulation reagent and instrumentation as [facility]. Currently there are no coagulation studies available worldwide for children to 14 days, and no normal ranges. Performed By: #### 2 246988, 2508714, 6740335, 85782527, 77703561, 4372764, 73639076, 8917700, 6225958, 2871377 ####[facility] [address] [place] [address] U Drug Screenon 02-01-2023 U Amph Scr Negative Normal Negative [facility] Comment on above: Result Comment: Nega tive Cutoff: <1000 ng/mL Performed By: #### 1 8914384, 187170554, 5272195, 5167744 ####[facility] [address] [place] [address] U Merced Scr Negative Normal Negative [facility] Comment on above: Result Comment: Nega tive Cutoff: <200 ng/mL Performed By: #### 1 4237031, 047610358, 1608068, 6664359 ####[facility] [address] [place] [address] U Benzodia Scr Negative Normal Negative [facility] Comment on above: Result Comment: Nega tive Cutoff: <200 ng/mL Performed By: #### 1 4726318, 956616577, 7905674, 4194970 ####[facility] [address] [place] [address] U Cannab Scr Negative Normal Negative [facility] Comment on above: Result Comment: Nega tive Cutoff: <50 ng/mL Performed By: #### 1 7694194, 333746688, 2433708, 0884610 ####[facility] [address] [place] [address] U Cocaine Scr Negative Normal Negative [facility] Comment on above: Result Comment: Nega tive Cutoff: <300 ng/mL Performed By: #### 1 2397940, 812686998, 4844186, 2031305 ####[facility] [address] [place] [address] U Opiate Scr Negative Normal Negative [facility] Comment on above: Result Comment: Nega tive Cutoff: <300 ng/mL Performed By: #### 1 3082100, 925603712, 2782790, 9912751 ####[facility] [address] [place] [address] U PCP Scr Negative Normal Negative [facility] Comment on above: Result Comment: Nega tive Cutoff: <25 ng/mL These drug screen results are to be used for medical (i.e., treatment) purposes only. Unconfirmed drug screening results must not be used for non-medical purposes (e.g., employment testing, legal testing). Performed By: #### 1 7774612, 878131776, 6574925, 3301782 ####[facility] [address] [place] [address] UA With Cult Reflexon 2022 Bacteria LM Ql (Urine sed) TRACE Normal Trace [facility] Comment on above: Performed By: #### 1 8494569, 969677386, 5266893, 8406148 ####[facility] [address] [place] [address] Bilirubin Ql (U) Negative Normal Negative [facility] Comment on above: Performed By: #### 1 5947522, 584350820, 0036616, 5927329 ####[address] [address] Clarity (U) CLEAR Normal Clear [facility] Comment on above: Performed By: #### 1 5473687, 416705716, 7127654, 4730357 ####[address] [address] Color (U) YELLOW Normal Yellow [facility] Comment on above: Performed By: #### 1 7294166, 472592753, 9803851, 0087914 ####[address] [address] Epithelial cells.squamous LM .HPF (Urine sed) [#/Area] 0-2 Normal 0-2 [facility] Comment on above: Performed By: #### 1 5370314, 137301850, 6824471, 4844791 ####[facility] [address] [place] [address] Glucose Test strip (U) [Mass/Vol] Negative Normal Negative [facility] Comment on above: Performed By: #### 1 2681253, 517755521, 9454223, 0036649 ####[facility] [address] [place] [address] Hemoglobin Ql (U) 3+ Abnormal Negative [facility] Comment on above: Performed By: #### 1 6787079, 729352068, 9014478, 8492267 ####[facility] [address] [place] [address] Ketones (U) [Mass/Vol] Negative Normal Negative [facility] Comment on above: Performed By: #### 1 4570083, 087682555, 8791914, 7498984 ####[facility] [address] [place] [address] [place].plasma/[place].RBC (Bld) [Mass ratio] 0-3 N ormal 0-3 [facility] Comment on above: Performed By: #### 1 5017083, 833845449, 4869196, 3092682 ####[address] [address] Nitrite Ql (U) Negative Normal Negative [facility] Comment on above: Performed By: #### 1 7599741, 804106080, 9602536, 9574089 ####[address] [address] pH (U) 7.0 [pH] Invalid Interpretation Code 5.0-9.0 [facility] Comment on above: Performed By: #### 1 4363198, 427551347, 8443040, 9314394 ####[facility] [address] [place] [address] Protein (U) [Mass/Vol] Negative Normal Negative [facility] Comment on above: Performed By: #### 1 5254657, 159964958, 3748548, 6056622 ####[facility] [address] [place] [address] Specific gravity (U) [Rel density] 1.010 Invalid Interpretation Code 1.005-1.030 [facility] Comment on above: Performed By: #### 1 2567642, 551963013, 1498270, 7590263 ####[facility] [address] [place] [address] Type of Urine collection method Clean Catch Normal [facility] Comment on above: Performed By: #### 1 3255301, 216794473, 5480133, 0645128 ####[facility] [address] [place] [address] Urobilinogen Qn (U) 0.2 {Debbie'U}/dL Normal 0.0-1.0 [facility] Comment on above: Performed By: #### 1 1311511, 617918444, 1622186, 6115716 ####[facility] [address] [place] [address] WBC Auto Ql (U) 1+ Abnormal Negative [facility] Comment on above: Performed By: #### 1 4200627, 480009862, 0152544, 3520756 ####[facility] [address] [place] [address] WBC LM.HPF (Urine sed) [#/Area] 6-15 Abnormal 0-5 [facility] Comment on above: Performed By: #### 1 2074139, 290241527, 0243396, 8754064 ####[facility] [address] [place] [address] Uric Acidon 02-01-2023 Urate [Mass/Vol] 3.0 mg/dL Normal 2.2-7.4 [facility] Comment on above: Performed By: #### 2 036736, 2251327, 7181744, 91913466, 38879507, 0378251, 36977100, 1446545, 7560079, 5631206 ####[facility] [address] [place] [address] eGFRon 02-01-2023 GFR/1.73 sq M.predicted maris g non-blacks MDRD (S/P/Bld) [Vol rate/Area] 135 mL/min/1.73 m2 Normal >=59 [facility] Comment on above: Order Comment: Order added by Discern Expert. Result Comment: Bus Analyst jono kidney disease could be indicated at eGFR's of less than 60 mL/min/1.73m2. Kidney failure is indicated at less than 15 mL/min/1.73m2. Performed By: #### 2 985584, 9884549, 2391158, 68969169, 59868314, 9258628, 09256399, 9733819, 8352950, 6602307 ####[facility] [address] [place] [address] ED Note-Physicianon 12-13-19 ED Note-Physician Basic Information [...] other chart put together by the physician trust manager assistant. 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 Normal [facility] Comment on above: Result Comment: Elec tronically [...] EFW (oz) 10 oz EFW by: Hadlock (CWG-KM-FW-FL) Extended Genetic Technologist 7.6 mm CM 4.4 mm 35% Nicolaides [...] Normal LVOT view: Normal 3-vessel view: Normal 7-mjrart-mfadixw view: Normal Heart / Thorax Situs: situs [...] know sex (more content not included)... Normal [facility] ED Note-Physicianon 10-18-19 ED Note-Physician Basic Information [...] the right lateral foot from electric jesus [facility] Data External documents reviewed: Not applicable My [...] day(s), # 20 tab(s), Refills(s) 0, Pharmacy: [facility]/pharmacy #[id number], 164, cm, 10/14/22 12:30:00 EDT, Height/Length Dosing, 66, kg, 10/14/22 12:30:00 EDT, Weight Dosing lidocaine, 100 mg, 10 mL, Injection, TransDermal, Once, Stop date 10/14/22 13:02:00 EDT, STAT, Start date (more content not included)... Normal [facility] Comment on above: Result Comment: Elec tronically Signed By: Lucero Harden PA-C\.br\Date and Time Signed: 10/15/22 00:18 EDT\.br\Electronically Co-Signed By: Nakul Cannon DO\.br\Date and Time Co-Signed: 10/17/22 07:09 EDT Consent for Treatmenton 09-26 Consent for Treatment [id number]:127 [facility] Discharge Instructionson Discharge Instructions [id number]:127 [facility] ED Clinical Summaryon 2022 ED Clinical Summary (Inserted Image. Claudia ble to display) [place] [id number] ED Clinical Summary Person Information Name: ANAND HERRERA [facility] Age: 22 Years : 2000 Sex: Female Language: Luxembourgish PCP: Baljit Watts DO Marital Status: Single [...] 10/14/2022 13:55:19 10/14/2022 13:55:19 10/14/2022 13:55:19 ADDRESS: [address] [place], [place] [address]Marti [facility] [id number] PHYS DOC NOTES: MEDICAL INFORMATION: Prescriptions Given: Medications to Continue Taking That Have Changed [facility] #[id number], [address] [place] [id number], [phone] START: amoxicillin (amoxicillin 875 mg Tab) 1 [...] Instructions: Sutures, Azalia, or Adhesive Wound Closure, Moca-uq-Mhml Follow up: With: Address: When: Baljit Montenegro, [facility] [address] [place] [address] Business (1) In 3 days 10/17/2022 DIAGNOSIS: 1:Laceration of right foot Normal [facility] ED Patient Education Noteon 10-14-2022 ED Patient Education Note Dermatology Sutures, Diboll, or Adhesive Wound Closure Doctors use stitches [...] the edges of the wound together. ? Turon the glue onto your skin. You may [...] this with as many azalia as needed. Diboll are faster to use than sutures, and they cause less reaction from your skin. Azalia need to be taken out using a tool that bends the azalia away from your skin. Follow these instructions at home: Medicines ? Take kuhr-ito-ominhvy and prescription medicines only as told by [...] cannot use soap and water, use hand target network analyst. ? Do not try to take off [...] not i (more content not included)... Normal [facility] ED Patient Summaryon 023 ED Patient Summary [place] [id number] Patient Discharge Instructions Person Information Name: ANAND HERRERA Age: 22 Years Arrival Date: 10/14/2022 12:18:27 Discharge Diagnosis: 1:Laceration of right foot Primary Care Physician: Baljit Watts DO Provider Information Primary Provider: Nakul Cannon DO Advanced Strategic Partnership Representative:None The exam and treatment you received in the Emergency Department were for an urgent problem and are not intended as complete care. It is important that you follow up with a doctor, nurse practitioner, or physician?s trust manager assistant for ongoing care. If your symptoms [...] Address: When: Baljit Montenegro, [address] [facility] [place] [address] [facility] (1) In 3 days 10/17/2022 In the event that this physician does not participate in your insurance network, please consult with your insurance company to find a nearby participating provider. Patient Education Materials: Sutures, Azalia, or Adhesive Wound Closure, Okeu-gq-Ghij A MESSAGE TO ALL PATIENTS REGARDING OPIOIDS PRESCRIPTION OPIOIDS: WHAT YOU NEED TO KNOW Prescription opioids can be used to help relieve pmdntsnl-ce-uyetbw pain and are often prescribed following a [...] be struggling with addiction, tell your health health care / medical job titles and ask for guidance or call [facility]?S National Helpline at 6-517-3 (more content not included)... Normal [facility] OB NT (Nuchal Translucency)o n 09-26-2022 OB [...] gestational sac with a live fetus - Bulpitt rump length is consistent with given OTF [...] Extended Nasal bone: present Anatomy Heart: Normal [place] and Situs. Stomach: Visible, with correct situs. [...] Electronically signed by: JESS FELDMAN MD Normal [facility] HEP B SURFACE ANTIGEN SCREEN on 09-05-2022 HBsAg Screen Negative Normal Negative [facility] Comment on above: Performed By: #### H BSANS #### [facility] [address] [place] [address] Dr. Stoney Rodriguez HEPATITIS C VIRUS AB W/ REFL EX QUANTon 09-05-2022 HCV AB Non-Reactive Normal Non Reactive [facility] Comment on above: Performed By: #### H CVPCRR #### [facility] [address] [place] [address] Dr. Stoney Rodriguez Interpretation: Comment Normal [facility] Comment on above: Result Comment: Not infected with HCV unless early or acute infection is suspected (which may be delayed in an immunocompromised individual), or other evidence exists to indicate HCV infection. Performed By: #### H CVPCRR #### [facility] [address] [place] [address] Dr. Stoney Rodriguez HIV 1 AND 2 WITH REFLEXon HIV Screen 4th Generation wRfx Non-Reactive Normal Non Reactive [facility] Comment on above: Result Comment: HIV Negative HIV-1/HIV-2 antibodies and HIV-1 p24 antigen were NOT detected. There is no laboratory evidence of HIV infection. Performed By: #### T NS #### [facility] [address] [place] [address] Dr. Stoney Rodriguez RPR QUANTon 09-05-2022 Rapid Plasma Reagin, Quant Non-Reactive Normal NonRea< 1:1 [facility] Comment on above: Result Comment: Plea se Note: This test does not meet current guidelines for screening and diagnosis of syphilis. This test is intended for following treatment response in patients being treated for syphilis infection. To screen for syphilis infection, a reflex cascade that includes both RPR and a treponema-specific assay should be utilized, such as Treponema pallidum (Syphilis) Screening Weber (348033) or Rapid Plasma Reagin (RPR) Test With Reflex to Quantitative RPR and Confirmatory Treponema pallidum Antibodies (802958). Performed By: #### R PRQ #### [facility] [address] [place] [address] Dr. Stoney Rodriguez RUBELLA AB IGGon 09-05-2022 Rubella Antibodies, IgG 11.40 index Normal Immune >0.9 9 [facility] Comment on above: Result Comment: Non- immune <0.90 Equivocal 0.90 - 0.99 Immune >0.99 Performed By: #### R UBIGG #### [facility] [address] [place] [address] Dr. Stoney Rodriguez BOX TEST SENT OUTon 09-05-19 SENT TO REF LAB 09/04/22 Normal [facility] Comment on above: Performed By: #### B OX #### [facility] [address] [place] [address] Dr. Stoney Rodriguez CBC AUTO DIFFon 09-04-2022 BASO # 0.0 103/ul Normal 0.0-0.1 [facility] Comment on above: Performed By: #### C BC #### [facility] [address] [place] [address] Dr. Stoney Rodriguez Basophils/100 WBC (Bld) 0.4 % Normal 0.2-2.0 [facility] Comment on above: Performed By: #### C BC #### [facility] [address] [place] [address] Dr. Stoney Rodriguez EO # 0.1 103/ul Normal 0.0-0.7 [facility] Comment on above: Performed By: #### C BC #### [facility] [address] [place] [address] Dr. Stoney Rodriguez Eosinophils/100 WBC (Bld) 0.7 % Critically low 0.9-7. 0 [facility] Comment on above: Performed By: #### C BC #### [facility] [address] [place] [address] Dr. Stoney Rodriguez Erythrocyte distribution wid th (RBC) [Ratio] 14.5 % Normal 11.0-15.0 [facility] Comment on above: Performed By: #### C BC #### [facility] [address] [place] [address] [address] Stoney Rodriguez Hematocrit (Bld) [Volume fraction] 36.7 % Normal 3 6.0-48.0 [facility] Comment on above: Performed By: #### C BC #### [facility] [address] [place] [address] [address] Stoney Rodriguez Hemoglobin (Bld) [Mass/Vol] 11.9 g/dL Critically low 12.0 -16.0 [facility] Comment on above: Performed By: #### C BC #### [facility] [address] [place] [address] Dr. Stoney Rodriguez IG # 0.03 10e3/ul Normal 0.00-0.03 [facility] Comment on above: Performed By: #### C BC #### [facility] [address] [place] [address] Dr. Stoney Rodriguez IG % 0.4 % Normal 0.0-0.5 [facility] Comment on above: Performed By: #### C BC #### [facility] [address] [place] [address] Dr. Stoney Rodriguez LYMPH # 2.0 103/ul Normal 1.2-3.8 [facility] Comment on above: Performed By: #### C BC #### [facility] [address] [place] [address] Dr. Stoney Rodriguez Lymphocytes/100 WBC (Bld) 23.3 % Normal 20.5-60.0 [facility] Comment on above: Performed By: #### C BC #### [facility] [address] [place] [address] Dr. Stoney Rodriguez MANUAL DIFF REQ NO Normal [facility] Comment on above: Performed By: #### C BC #### [facility] [address] [place] [address] Dr. Stoney Rodriguez MCH (RBC) [Entitic mass] 28.7 pg Normal 26.7-34.0 [facility] Comment on above: Performed By: #### C BC #### [facility] [address] [place] [address] Dr. Stoney Rodriguez MCHC (RBC) [Mass/Vol] 32.4 g/dL Normal 29.9-35.2 [facility] Comment on above: Performed By: #### C BC #### [facility] [address] [place] [address] Dr. Stoney Rodriguez MCV (RBC) [Entitic vol] 88.6 fL Normal 81.0-99.0 [facility] Comment on above: Performed By: #### C BC #### [facility] [address] [place] [address] Dr. Stoney Rodriguez MONO # 0.5 103/ul Normal 0.3-0.8 [facility] Comment on above: Performed By: #### C BC #### [facility] [address] [place] [address] Dr. Stoney Rodriguez Monocytes/100 WBC (Bld) 6.2 % Normal 1.7-12.0 [facility] Comment on above: Performed By: #### C BC #### [facility] [address] [place] [address] Dr. Stoney Rodriguez NEUT # 5.9 103/ul Normal 1.4-6.5 [facility] Comment on above: Performed By: #### C BC #### [facility] [address] [place] [address] Dr. Stoney Rodriguez Neutrophils/100 WBC (Bld) 69.0 % Normal 43.0-75.0 [facility] Comment on above: Performed By: #### C BC #### [facility] [address] [place] [address] Dr. Stoney Rodriguez Platelet mean volume (Bld) [Entitic vol] 9.7 fL Normal 9.5-13.5 [facility] Comment on above: Performed By: #### C BC #### [facility] [address] [place] [address] Dr. Stoney Rodriguez PLT 378 103/ul Normal 150-450 [facility] Comment on above: Performed By: #### C BC #### [facility] [address] [place] [address] [address] Stoney Rodriguez RBC 4.14 106/ul Critically low 4.20-5.40 [facility] Comment on above: Performed By: #### C BC #### [facility] [address] [place] [address] [address] Stoney Rodriguez WBC 8.5 103/ul Normal 4.0-11.0 [facility] Comment on above: Performed By: #### C BC #### [facility] [address] [place] [address] Dr. Stoney Rodriguez CULTURE URINEon 09-04-2022 CULTURE URINE Culture Observations : NO GROWTH. Normal [facility] l Comment on above: Performed By: #### U RCX #### [facility] [address] [place] [address] Dr. Stoney Rodriguez GLYCOHEMOGLOBIN A1Con 2022 ADA RECOMMENDATION SEE BELOW Normal [facility] Comment on above: Result Comment: ADA RECOMMENDED LIMIT 4.0 - 6.0 ADA THERAPEUTIC TARGET < 7.0 ACTION SUGGESTED > 7.0 Performed By: #### A 1C #### [facility] [address] [place] [address] Dr. Stoney Rodriguez Glucose [Mass/Vol] 94 mg/dL Normal [facility] Comment on above: Performed By: #### A 1C #### [facility] [address] [place] [address] Dr. Stoney Rodriguez HbA1c (Bld) [Mass fraction] 4.9 % Normal 4.5-6.2 [facility] Comment on above: Performed By: #### A 1C #### [facility] [address] [place] [address] Dr. Stoney Rodriguez TSHon 09-04-2022 TSH 0.653 uIU/mL Normal 0.358-3.740 [facility] Comment on above: Performed By: #### T SH #### [facility] [address] [place] [address] Dr. Stoney Rodriguez TYPE AND SCREENon 09-04-2022 TYPE AND SCREEN Negative Normal [facility] Comment on above: Performed By: #### T NS #### [facility] [address] [place] [address] Dr. Stoney Rodriguez US PREG TVon 08-14-2022 [...] BILLIE SMITH Date: 2022-08-14 16:07 Normal [facility] CHEMISTRYOrdered By: Ida Mcfarland on 12-19-2021 Anion gap [Moles/Vol] 11 mmol/L Normal 6 - 16 mEq/L F [facility] Remisol Calcium [Mass/Vol] 8.9 mg/dL Normal 8.9 [...] 7.6 E9/L Normal 4.0 - 11.0 E9/L [facility] HemeAutoSS SEROLOGYOrdered By: Ida Mcfarland on 12-19-2021 Beta hCG Ql Negative (12/19/21 2:12 AM) Normal [facility] Man Sero CULTURE URINEon 04-28-2020 CULTURE URINE [...] <= 16 S Gentamicin(JAI) <= 1 S Amikacin(JAI) 4 S Normal [facility] Comment on above: Performed By: #### C /UR ####[place] [address] [place] [address] [address] [place], [place] [id number] Culture, Urineon 04-28-2020 Bacteria identified Cx Nom (U) 10,000-50,000 CFU/ml [facility], [place] Bacteria identified Cx Nom (U) Normal urogenital praneeth present. Abnormal [facility] [place], [place] Bacteria identified Cx Nom (U) Escherichia coli Abnormal [facility] [place], [place] Interpretation and review of laboratory results Abnormal [facility], [place] Test Performed by [address] [address] [facility] [place], [place] Hemoglobinon 04-27-2020 Hemoglobin (Bld) [Mass/Vol] 7.1 g/dL Low 11.7-16. 0 [facility] Comment on above: Performed By: #### H EMGB #### [address] [address] Hemoglobin (Bld) [Mass/Vol] 7.1 g/dL Low 11.7 - 16 g/dL [place], [place] Interpretation and review of laboratory results Abnormal [place], [place] Test Performed by [facility], [address] [place] [address] [place], [place] Group B Strep Screen PCRon 1 [...] Methodology - Real Time PCR (Cepheid) Normal [facility] Comment on above: Performed By: #### [facility] ####[address] [address] Group B Strep, PCRon 020 Group B Strep Screen PCR NEGATIVE Expected Result: Negative CDC guidelines for prevention of Group B Strep disease recommends collection of both vaginal and rectal specimens for optimal recovery of GBS. Methodology - Real Time PCR (Cepheid) [place], [place] Test Performed by [address] [address] [place], [place] Op Noteon 04-26-2020 Op Note PATIENT: TRAVIS HERRERA [facility] ADMISSION DATE: 04/25/2020 SURGERY DATE: 04/26/2020 [...] She also did have a TAP block. Lead Based Paint Technician: Dr. Benjamin. Replacement: 1500 cc of crystalloid. [...] 1500 cc of crystalloid. Diskriter Job ID: [id number] Ozzy Chowdhury MD DOD:04/26/2020 07:56 A JAKUB/kimmy DOT:04/26/2020 10:55 A Job Number: [id number] Document Number: [id number] cc: [place] [address] [place] [address]. [facility] [address] Fariha Matos, [address] [facility] [address] Normal [facility] C. Trachomatis / N. Gonorrho eae, DNA Probeon 04-25-2020 C. trachomatis DNA ARCHANA+probe Ql (Genital specimen) NOT Detected Chlamydia trachomatis Nucleic Acid NOT Detected by DNA Amplification using the Cepheid System. Culture is the only recommended test in medical-legal cases such as suspected child abuse or molestation. [facility], [place] N. gonorrhoeae DNA ARCHANA+probe Ql (Unsp spec) NOT Detected Neisseria gonorrhoeae Nucleic Acid NOT Detected by DNA Amplification using the Cepheid System. Culture is the only recommended test in medical-legal cases such as suspected child abuse or molestation. [place], [place] Test Performed by [facility], [address] [place] [address] [place], [place] CBCon 04-25-2020 Erythrocyte distribution width (RBC) [Ratio] 18.2 % High 11.5 - 14.5 % [place], [place] Hematocrit (Bld) [Volume fraction] 30.6 % Low 35 - 47 % [place], [place] Hemoglobin (Bld) [Mass/Vol] 9.7 g/dL Low 11.7 - 16 g/dL [place], [place] Interpretation and review of laboratory results Abnormal [place], [place] MCH (RBC) [Entitic mass] 26.2 pg 26 - 34 pg [place], [place] MCHC (RBC) [Mass/Vol] 31.9 % Low 32 - 36 % [place], [place] MCV (RBC) [Entitic vol] 82.2 fL 79 - 98 fL [place], [place] Platelet mean volume (Bld) [Entitic vol] 8.1 fL 7.4 - 10.4 fL [place], [place] Platelets (Bld) [#/Vol] 249 10*3/uL 140 - 440 10*3/uL [place], [place] RBC (Bld) [#/Vol] 3.72 10*6/uL Low 3.8 - 5.2 10*6/uL [place] WBC (Bld) [#/Vol] 13.3 10*3/uL High 3.6 - 10.7 10*3/uL [place], [place] Test Performed by [facility], [address] [place] [address] [place], [place] CREATININE, RANDOM URINEon 1 Creatinine (U) [Mass/Vol] 66.8 mg/dL No Range [place], [place] Chlamydia and GC PCR Panelon 04-25-2020 Chlamydia and GC PCR Panel Chlamydia tra chomatis PCR --> Status: F NOT Detected Chlamydia trachomatis Nucleic Acid NOT Detected by DNA Amplification using the Bitbondid System. Culture is the only recommended test [...] NOT Detected by DNA Amplification using the Bitbondid System. Culture is the only recommended test in medical-legal cases such as suspected child abuse or molestation. Neisseria gonorrhoeae Nucleic Acid NOT Detected by DNA Amplification using the Bitbondid System. Culture is the only recommended test in medical-legal cases such as suspected child abuse or molestation. Normal [facility] Comment on above: Performed By: #### C TNGP ####[facility] [place], [place] Comp Metabolic Panelon 04-25 Calcium [Mass/Vol] 8.5 mg/dL Normal 8.4-10.4 [facility] Comment on above: Performed By: #### P T/AP, CMP3, HEMOG, FIBGN #### [facility] [address] [place], [place] Glucose [Mass/Vol] 97 mg/dL Normal 70-100 [facility] Comment on above: Performed By: #### P T/AP, CMP3, HEMOG, FIBGN #### [facility] [address] [place], [place] ALP [Catalytic activity/Vol] 114 U/L Normal 38-126 [facility] Comment on above: Result Comment: Slig htly hemolysed, interpret with caution. Performed By: #### P T/AP, CMP3, HEMOG, FIBGN #### [facility] [address] [place], [place] ALT [Catalytic activity/Vol] 19 U/L Normal 0-34 [facility] Comment on above: Result Comment: The ALT test is performed by an updated assay method. Please note that the reference intervals have been changed and are now sex specific. Performed By: #### P T/AP, CMP3, HEMOG, FIBGN #### [facility] [address] [place], [place] Anion Gap 6 Normal [facility] Comment on above: Performed By: #### P T/AP, CMP3, HEMOG, FIBGN #### [facility] [address] [place], [place] AST [Catalytic activity/Vol] 39 U/L Normal 15-46 [facility] Comment on above: Result Comment: Slbridger htly hemolysed, interpret with caution. Performed By: #### P T/AP, CMP3, HEMOG, FIBGN #### [facility] [address] [place], [place] Bilirubin [Mass/Vol] 0.5 mg/dL Normal 0.2-1.3 [facility] Comment on above: Performed By: #### P T/AP, CMP3, HEMOG, FIBGN #### [place] [address] [address] [place], [place] CO2 [Moles/Vol] 20 mmol/L Low 22-30 [facility] Comment on above: Performed By: #### P T/AP, CMP3, HEMOG, FIBGN #### [facility] [address] [place], [place] Creatinine [Mass/Vol] 0.63 mg/dL Normal 0.52-1.25 [facility] Comment on above: Performed By: #### P T/AP, CMP3, HEMOG, FIBGN #### [facility] [address] [place], [place] eGFR OTHER > 90.0 Normal >60 [facility] Comment on above: Result Comment: KDIG [...] #### P T/AP, CMP3, HEMOG, FIBGN #### [place] [address] [address] [place], [place] GFR/1.73 sq M.predicted maris g blacks MDRD (S/P/Bld) [Vol rate/Area] mL/min/{1.73_m2} Normal >60 [facility] Comment on above: Performed By: #### P T/AP, CMP3, HEMOG, FIBGN #### [place] [address] [address] [place], [place] Protein [Mass/Vol] 6.9 g/dL Normal 6.3-8.2 [facility] Comment on above: Performed By: #### P T/AP, CMP3, HEMOG, FIBGN #### [place] [address] [place], [place] Urea nitrogen [Mass/Vol] 14 mg/dL Normal 7-20 [facility] Comment on above: Performed By: #### P T/AP, CMP3, HEMOG, FIBGN #### [place] [address] [place], [place] Potassium [Moles/Vol] 4.3 mmol/L Normal 3.5-5.1 [facility] Comment on above: Result Comment: Slig htly hemolysed, interpret with caution. Performed By: #### P T/AP, CMP3, HEMOG, FIBGN #### [place] [address] [address] [place], [place] Sodium [Moles/Vol] 134 mmol/L Low 135-145 [facility] Comment on above: Performed By: #### P T/AP, CMP3, HEMOG, FIBGN #### [place] [address] [address] [place], [place] Albumin [Mass/Vol] 3.4 g/dL Low 3.5-5.0 [facility] Comment on above: Performed By: #### P T/AP, CMP3, HEMOG, FIBGN #### [place] [address] [place] [address] Chloride [Moles/Vol] 107 mmol/L Normal 98-107 [facility] Comment on above: Performed By: #### P T/AP, CMP3, HEMOG, FIBGN #### [facility] [address] [place] [address] Comprehensive Metabolic Pane parag 04-25-2020 Albumin [Mass/Vol] 3.4 g/dL Low 3.5 - 5 g/dL [place], [place] ALP [Catalytic activity/Vol] 114 U/L 38 - 12 6 U/L [place], [place] Comment on above: Slightly hemolysed, interpret with caution. ALT [Catalytic activity/Vol] 19 U/L 0 - 34 U/L [place], [place] Comment on above: The ALT test is perf ormed by an updated assay method. Please note that the reference intervals have been changed and are now sex specific. Anion gap [Moles/Vol] 6 mmol/L [place], [place] AST [Catalytic activity/Vol] 39 U/L 15 - 46 U/L [place] Comment on above: Slightly hemolysed, interpret with caution. Bilirubin Ql (U) 0.5 mg/dL 0.2 - 1.3 mg/dL [place], [place] Calcium [Mass/Vol] 8.5 mg/dL 8.4 - 10.4 mg/dL [place] Chloride [Moles/Vol] 107 mmol/L 98 - 107 mmol/L [place] CO2 [Moles/Vol] 20 mmol/L Low 22 - 30 mmol/L [place] Creatinine [Mass/Vol] 0.63 mg/dL 0.52 - 1.25 mg /dL [place], [place] EGFR IF NonAfrican Palestinian >90.0 >60 mL/m in [place], [place] Comment on above: KDIGO guidelines pro [...] MDRD (S/P/Bld) [Vol rate/Area] mL/min/{1.73_m2} >60 mL/min [place], [place] Glucose [Mass/Vol] 97 mg/dL 70 - 100 mg/dL [place], [place] Interpretation and review of laboratory results Abnormal [place], [place] Potassium [Moles/Vol] 4.3 mmol/L 3.5 - 5.1 mmol /L [place] Comment on above: Slightly hemolysed, interpret with caution. Protein [Mass/Vol] 6.9 g/dL 6.3 - 8.2 g/dL [place], [place] Sodium [Moles/Vol] 134 mmol/L Low 135 - 145 mmol/L [place], [place] Urea nitrogen [Mass/Vol] 14 mg/dL 7 - 20 mg/d L [place], [place] Creatinine, Ur Randomon 03-29 Creatinine, Ur Random 66.8 mg/dL Normal No Range [facility] Comment on above: Performed By: #### C RTUR, TPUR, MAT #### [facility] [address] [place] [address] Fibrinogenon 04-25-2020 Fibrinogen 390 mg/dL Normal 200-400 [place], [place] Comment on above: Performed By: #### P T/AP, CMP3, HEMOG, FIBGN #### [facility] [address] [place] [address] Hemogramon 04-25-2020 Erythrocyte distribution wid th (RBC) [Ratio] 18.2 % High 11.5-14.5 [facility] Comment on above: Performed By: #### P T/AP, CMP3, HEMOG, FIBGN #### [facility] [address] [place], [place] Hematocrit (Bld) [Volume fraction] 30.6 % Low 3 5.0-47.0 [facility] Comment on above: Performed By: #### P T/AP, CMP3, HEMOG, FIBGN #### [place] [address] [address] [place] Hemoglobin (Bld) [Mass/Vol] 9.7 g/dL Low 11.7-16. 0 [facility] Comment on above: Performed By: #### P T/AP, CMP3, HEMOG, FIBGN #### [place] [address] [place], [place] MCH (RBC) [Entitic mass] 26.2 pg Normal 26.0-34.0 [facility] Comment on above: Performed By: #### P T/AP, CMP3, HEMOG, FIBGN #### [address] [place] MCHC 31.9 % Low 32.0-36.0 [facility]stem Comment on above: Performed By: #### P T/AP, CMP3, HEMOG, FIBGN #### [address] [place] MCV (RBC) [Entitic vol] 82.2 fL Normal 79.0-98.0 [facility] Comment on above: Performed By: #### P T/AP, CMP3, HEMOG, FIBGN #### [place] [place], [place] Platelet mean volume (Bld) [Entitic vol] 8.1 fL Normal 7.4-10.4 [facility] Comment on above: Performed By: #### P T/AP, CMP3, HEMOG, FIBGN #### [address] Platelets (Bld) [#/Vol] 249 10*3/uL Normal 140-440 [facility] Comment on above: Performed By: #### P T/AP, CMP3, HEMOG, FIBGN #### [facility] [address] [place], [place] RBC (Bld) [#/Vol] 3.72 10*6/uL Low 3.80-5.20 [facility] Comment on above: Performed By: #### P T/AP, CMP3, HEMOG, FIBGN #### [address] [place] WBC (Bld) [#/Vol] 13.3 10*3/uL High 3.6-10.7 [facility] Comment on above: Performed By: #### P T/AP, CMP3, HEMOG, FIBGN #### [address] [place], [place] Medication Assisted Treatmen t Panelon 04-25-2020 Fentanyl Negative Normal [facility] Comment on above: Performed By: #### C RTUR, TPUR, MAT #### [address] [place], [place] Amphetamines Ql (U) Negative Normal [facility] Comment on above: Performed By: #### C RTUR, TPUR, MAT #### [address] [place] Barbiturates Negative Normal [facility] Comment on above: Performed By: #### C RTUR, TPUR, MAT #### [address] [place] Benzodiazepines Ql (U) Negative Normal [facility] Comment on above: Performed By: #### C RTUR, TPUR, MAT #### [address] [place], [place] Buprenorphine Screen Negative Normal [facility] Comment on above: Performed By: #### C RTUR, TPUR, MAT #### [address] [place], [place] Cocaine Ql (U) Negative Normal [facility] Comment on above: Performed By: #### C RTUR, TPUR, MAT #### [place] [address] [place], [place] Ethanol [Mass/Vol] Negative Normal [facility] Comment on above: Performed By: #### C RTUR, TPUR, MAT #### [facility] [address] [place], [place] Methadone Ql (U) Negative Normal [facility] Comment on above: Performed By: #### C RTUR, TPUR, MAT #### [facility] [address] [place], [place] Opiates Ql (U) Negative Normal [facility] Comment on above: Performed By: #### C RTUR, TPUR, MAT #### [facility] [address] [place], [place] Oxycodone/Oxymorphone Negative Normal [facility] Comment on above: Performed By: #### C RTUR, TPUR, MAT #### [facility] [address] [place], [place] PCP Negative Normal [facility] Comment on above: Performed By: #### C RTUR, TPUR, MAT #### [facility] [address] [place], [place] THC Negative Normal [facility] Comment on above: Performed By: #### C RTUR, TPUR, MAT #### [facility] [address] [place], [place] Amphetamines Ql (U) Negative [facility] [place], [place] Benzodiazepines Ql (U) Negative [facility] [place], [place] Cocaine Ql (U) Negative [facility] [place], [place] Ethanol [Mass/Vol] Negative [facility] [place] Methadone Ql (U) Negative [facility] [place], [place] Opiates Ql (U) Negative [facility] [place], [place] Sodium [Moles/Vol] See Below [facility] [place] Comment on above: The expected [...] performed using non-forensic procedures. Test Performed by [facility], [address] [place] [address] MAT Panel Test Comment See Below Normal [facility] Comment on above: Result Comment: The [...] By: #### C RTUR, TPUR, MAT #### [address] [address] [place] [address] Metabolic Panelon 04-25-2020 Sodium [Moles/Vol] Negative [place], [place] Otheron 04-25-2020 Test Performed by [facility], [facility] [address] Test Performed by [place] [address] PROTEIN, URINE, RANDOMon Interpretation and review of laboratory results Abnormal [place], [place] Protein (U) [Mass/Vol] 88 mg/dL High No Range [place], [place] PROTIME/INR & PTTon 04-25-20 20 INR Coag (PPP) [Relative time] 0.9 {INR} [place], [place] Comment on above: Recommended Anticoag ulant [...] Ur Random 88 mg/dL High No Range [facility] Comment on above: Performed By: #### C RTUR, TPUR, MAT #### [address] [place], [place] Protime AND APTTon 0 aPTT Coag (Bld) [Time] 21.4 s Normal 20.0-30.5 [place], [place] Comment on above: NOTE: The therapeuti c time for Heparin anticoagulation, based on Xa activity inhibition, is an APTT of 46-80 seconds. Result Comment: NOTE : The therapeutic time for Heparin anticoagulation, based on Xa activity inhibition, is an APTT of 46-80 seconds. Performed By: #### P T/AP, CMP3, HEMOG, FIBGN #### [facility] [employer] [address] INR 0.9 Normal 0.9-1.1 [facility] Comment on above: Result Comment: [...] #### P T/AP, CMP3, HEMOG, FIBGN #### [facility] [employer] [place] [place] [address] PT Coag (PPP) [Time] 9.6 s Normal 9.0-12.0 [facility], [place] Comment on above: . Result Comment: . Performed By: #### P T/AP, CMP3, HEMOG, FIBGN #### [facility] [address] [place] [address] TS GELon 04-25-2020 TS GEL ABO Group: O Rh, Gel: POS Antibody Screen Gel: NEG Normal [facility] Comment on above: Performed By: #### T SGL ####[facility] [employer] [facility] TYPE AND SCREENon 04-25-2020 Sodium [Moles/Vol] Negative [facility], [place] Sodium [Moles/Vol] O [facility], [place] Sodium [Moles/Vol] Positive [facility], [place] Test Performed by [facility], [address] [place] [address] [facility], [place] ABO, External Resulton 04-10 ABO, External Result O [facility], [place] C. Trachomatis, External Res ulton 04-10-2020 C. Trachomatis, External Result Negative [facility], [place] HIV, External Resulton 04-10 HIV, External Result Negative [facility], [place] Hepatitis B, External Result on 04-10-2020 Hep B, External Result Negative [facility], [place] N. Gonorrhoeae, External Res ulton 04-10-2020 N. Gonorrhoeae, External Result Negative [facility], [place] Otheron 04-10-2020 Verified with Fer Alejo rn [facility], [place] RPR, External Labon 04-10-20 20 RPR, External Result Negative [facility], [place] Rh Factor, External Resulton 04-10-2020 Rh Factor, External Result Positive [facility], [place] Rubella Titer, External Resu lton 04-10-2020 Rubella Titer, External Result IMMUNE [facility], [place] Progress Noteon 03-08-2020 Robotics Technician Authentication Interface Message Text Pediatric Cardiology Echocardiogra [...] in visit on 03/08/20 Echo New Narrative [facility] [place] [address] [email or web address] Echocardiogram Report M-mode, complete 2D, complete spectral Doppler, and color Doppler PATIENT: Anand Herrera STUDY DATE/TIME: Mar 08 2020 12:04PM HEIGHT: : 2000 WEIGHT: AGE: 19yr BSA/BMI: / GENDER: F BP: 137 / 64 LOCATION: [facility] REFERRING PHYSICIAN: Ozzy Martinez Md ORDERING PROVIDER: [...] STUDY AND PROCEDURE DATA: Procedure Description: New ([id number]) . Study status: Routine. Location: lab. Procedure: [...] a patent foramen ovale. There is a [id number] shunt. Left atrium - The atrium is [...] of all we discussed. Hannah Guevara MD [facility] Adjusto Writer Operator [facility] Clinical Community Arts Officer of Pediatrics [facility] Counseling and coordination of care for this patient was greater than 35minutes which is more than 50% of the total time of 60 minutes spent on the encounter. Normal [facility] Robotics Technician Authentication Interface Message Text Pediatric Hand Surgery Consult Note NAME: Anand Herrera DATE OF SERVICE: 03/08/2020 PRIMARY CARE PROVIDER: Ozzy Martinez MD REFERRING PROVIDER: Ozzy Martinez MD REASON FOR CONSULTATION: Anand Herrera is being seen today for an evaluation at the request of the maternal- medicine program. CHIEF COMPLAINT: Chief Complaint Patient presents with here for discussion HISTORY OF PRESENT ILLNESS: Anand is a 19 y.o.female here for discussion [...] to requesting provider. 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 Consent to share information with [facility] team, OB and service developer signed. Pt plans to deliver at [facility] with Dr Martinez. Virtualization Engineer is not yet decided. female fetus- name is Tom[place] Method of feeding: breast and bottle Ultrasound findings today: See report in procedures for details. Reinforced continued OB care with Dr Martinez- next appointment- next week Normal [facility] Robotics Technician Authentication Interface Message Text [facility] genetic counseling note Consultation has been [...] Herrera also met with Jerilyn Agee, Clinical Surgical Tech from our [facility]. Jerilyn will continue to help coordinate and care. consultation with Pediatric Orthopedic Surgery in the Hand and Upper Extremity Clinic is being arranged. follow up with Pediatric Orthopedic Surgery should be within one month of age or otherwise as per their recommendations. Call [phone] to schedule. Consultation with Medical Genetics should be considered in the period, especially if additional concerns are noted after delivery. The service developer or patient can request this consultation. Call [phone] to schedule. Indicate that you were followed by the [facility] when scheduling. Diagnosis: DIAGNOSIS. 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 Plan: 1. Continued obstetrical care with her primary global regulatory affairs manager is recommended. 2. Follow up q4 weeks to evaluate biometric parameters and anatomy. These are planned with the [facility]/your office. 3. surveillance as follows: weekly BPP beginning at 32 weeks. 4. consultation with Pediatric Orthopedic Surgery in the Hand and Upper Extremity Clinic is being arranged. 5. Delivery is appropriate at your local institution/already planned in [place] with follow up as indicated. 6. Mode and timing of delivery are based on the usual obstetrical indications. 7. Anticipate normal nursery. OR Neonatology/Virtualization Engineer to be present at delivery to evaluate and determine nursery placement. 8. follow up with Pediatric Orthopedic Surgery should be within one month of age or otherwise as per their recommendations. Call [phone] to schedule. 9. Consultation with Medical Genetics should be considered in the period, especially if additional concerns are noted after delivery. The service developer or patient can request this consultation. Call [phone] to schedule. Indicate that you were followed by the [facility] when scheduling. 9. Other follow up as clinically indicated. Her complete [facility] Plan of Care summary will be distributed. The total patient time of the visit was 30 minutes, of which greater than 50% of the time was spent counseling and coordinating care. Junior Kat MD Normal [facility] Progress Noteon 02-15-2020 Robotics Technician Authentication Interface Message Text Dating for consult Normal [facility] Vital Signs Date Time Vital Sign Value Performing Clinician Facility 10-14-2022 12:27-0400 Body temperature 98.24 [degF] Nakul Cannon [facility] 10-14-2022 12:27-0400 Diastolic blood pressure 64 mm[Hg] Nakul Cannon [facility] 10-14-2022 12:27-0400 Heart rate 107 /min Nakul Cannon [facility] 10-14-2022 12:27-0400 Respiratory rate 18 /min Nakul Cannon [facility] 10-14-2022 12:27-0400 SaO2% (BldA) [Mass fraction] 100 % Nakul Cannon [facility] 10-14-2022 12:27-0400 Systolic blood pressure 113 mm[Hg] Nakul Cannon [facility] 12-19-2021 03:42-0400 Diastolic blood pressure 64 mm[Hg] Anthony Martinez [facility] 12-19-2021 03:42-0400 Heart rate 78 /min Anthony Michelle [facility] 12-19-2021 03:42-0400 Hourly Rounding Anthony Martinez [facility] 12-19-2021 03:42-0400 Nursing Progress Note Reason Other: Pt mediciated per orders. Family x1 cartside. Denies any needs at this time. Anthony Michelle [facility] 12-19-2021 03:42-0400 Respiratory rate 16 /min Anthony Michelle [facility] 12-19-2021 03:42-0400 SaO2% (BldA) [Mass fraction] 100 % Anthony Michelle [facility] 12-19-2021 03:42-0400 Systolic blood pressure 116 mm[Hg] Anthony Michelle [facility] 12-19-2021 02:40-0400 Diastolic blood pressure 70 mm[Hg] Anthony Michelle [facility] 12-19-2021 02:40-0400 Heart rate 82 /min Anthony Michelle [facility] 12-19-2021 02:40-0400 Hourly Rounding Anthony Michelle [facility] 12-19-2021 02:40-0400 Nursing Progress Note Reason Other: Pt ambulatory to bathroom and back to cart with a steady gait. Anthony Michelle [facility] 12-19-2021 02:40-0400 Respiratory rate 16 /min Anthony Michelle [facility] 12-19-2021 02:40-0400 SaO2% (BldA) [Mass fraction] 100 % Anthony Michelle [facility] 12-19-2021 02:40-0400 Systolic blood pressure 122 mm[Hg] Anthony Michelle [facility] 12-19-2021 01:53-0400 Body temperature 98.06 [degF] Anthony Michelle [facility] 12-19-2021 01:53-0400 Diastolic blood pressure 84 mm[Hg] Anthony Michelle [facility] 12-19-2021 01:53-0400 Heart rate 89 /min Anthony Michelle [facility] 12-19-2021 01:53-0400 Respiratory rate 16 /min Anthony Michelle [facility] 12-19-2021 01:53-0400 SaO2% (BldA) [Mass fraction] 100 % Anthony Michelle [facility] 12-19-2021 01:53-0400 Systolic blood pressure 149 mm[Hg] Anthony Michelle [facility] 11-01-2021 08:09-0400 Body temperature 98.42 [degF] Keanu Kamara [facility] 11-01-2021 08:09-0400 Diastolic blood pressure 90 mm[Hg] Keanu Kamara [facility] 11-01-2021 08:09-0400 Heart rate 94 /min Keanu Asad [facility] 11-01-2021 08:09-0400 Respiratory rate 18 /min Keanu Kamara [facility] 11-01-2021 08:09-0400 SaO2% (BldA) [Mass fraction] 98 % Keanu Asad [facility] 11-01-2021 08:09-0400 Systolic blood pressure 145 mm[Hg] Keanu Asad [facility] 09-18-2021 09:59-0400 Body temperature 98.06 [degF] [facility] 09-18-2021 09:59-0400 Diastolic blood pressure 87 mm[Hg] [facility] 09-18-2021 09:59-0400 Heart rate 90 /min [facility] 09-18-2021 09:59-0400 Respiratory rate 16 /min [facility] 09-18-2021 09:59-0400 SaO2% (BldA) [Mass fraction] 100 % [facility] 09-18-2021 09:59-0400 Systolic blood pressure 136 mm[Hg] [facility] 04-28-2020 07:51-0500 Body Temperature 97.81 [degF] [place] 04-28-2020 07:51-0500 BP Diastolic 68 mm[Hg] [place] 04-28-2020 07:51-0500 BP Systolic 121 mm[Hg] [place] 04-28-2020 07:51-0500 Pulse (Heart Rate) 97 /min [place] 04-28-2020 07:51-0500 Pulse Oximetry 97 % [place] 04-28-2020 07:51-0500 Respiratory Rate 18 /min [place] 04-25-2020 13:40-0500 BMI (Body Mass Index) 23.3 kg/m2 [place] 04-25-2020 13:40-0500 Body weight 63.5 kg [place] 04-25-2020 13:40-0500 Height 165.1 cm [place] Encounters Encounter Date Encounter Type Care Provider Facility Start: 03-31-2023 End: 03-31-2023 ambulatory LATANYA GUNN Not Available Start: 03-17-2023 End: 03-17-2023 ambulatory LATANYA VELIA Not Available Start: 03-12-2023 End: 03-12-2023 ambulatory LATANYA VELIA Not Available Start: 02-02-2023 End: 02-25-2023 Pre-admission assessment Ozzy Martinez [facility] Start: 02-01-2023 End: 02-01-2023 ambulatory Ozzy Perezten Facility:[facility] Start: 11-10-2022 ambulatory KELL JOHNSON Faci lity:[facility] Jacobo Mark Start: 10-14-2022 End: 10-14-2022 Emergency department patient visit Nakul Cannon Facility:[facility] Start: 10-14-2022 End: 10-14-2022 Emergency department patient visit Nakul Cannon [facility] Start: 09-26-2022 ambulatory [facility] UNKNOWN [facility] Start: 09-04-2022 End: 09-05-[address] MARCO A VELIZ . Facility: Start: 08-14-2022 End: 08-15-[address] MARCO A VELIZ . Facility: Start: 12-19-2021 End: 12-19-2021 Emergency department patient visit Anthony Briscoener [facility] Start: 11-14-2021 End: 11-14-2021 Patient encounter procedure Grover Amaral OD Work Phone: Ophthalmology Comment on above: EKC (epidemic kerato conjunctivitis) (Primary Dx) Start: 11-07-2021 End: 11-07-2021 Patient encounter procedure Grover Amaral OD Work Phone: Ophthalmology Comment on above: Viral conjunctivitis (Primary Dx) Start: 11-01-2021 End: 11-01-2021 Emergency department patient visit Keanu Kamara [facility] Start: 09-18-2021 End: 09-18-2021 Emergency department patient visit Amos Espinoza [facility] Start: 04-25-2020 End: 04-28-2020 Evaluation and management [...] Work Phone: Start: 04-10-2020 [facility] Start: 04-10-2020 C. TRACHOMATIS, EXTE RNAL RESULT Historical Provider Start: 04-10-2020 HEPATITIS B, EXTERNA L RESULT Historical Provider Start: 04-10-2020 HIV, [facility]TERNAL [facility]ULT [facility] Start: 04-10-2020 N. GONORRHOEAE, EXTE RNAL RESULT Historical Provider Start: 04-10-2020 RH FACTOR, EXTERNAL RESULT Historical Provider Start: 04-10-2020 RPR, [facility]TERNAL [facility]ULT [facility] Start: 04-10-2020 RUBELLA TITER, EXTER NAL RESULT Historical Provider Plan of Treatment Date Care Activity Detail Author Start: 12-26-2021 Influenza vaccination INFLUENZA (#1) [facility] Start: 10-08-2020 PAP TESTING PAP TESTING [facility] Start: 10-08-2018 Urine microalbumin profile DTAP,TDAP,TD (1 - Tdap) [facility] Start: 10-08-2017 CHLAMYDIA SCREENING (18-24) CHLAMYDIA SCREENING (18-24) [facility] Start: 10-08-2017 GC (GONORRHEA) SCREENING (18-24) GC (GONORRHEA) SCREENING (18-24) [facility] Start: 10-08-2017 HEPATITIS C SCREENING HEPATITIS C SCREENING [facility] Start: 10-08-2017 HIV SCREENING HIV SCREENING [facility] Start: 10-08-2013 PEDS TO ADULT TRANSITION ANNUAL ASSESSMENT PEDS TO ADULT TRANSITION ANNUAL ASSESSMENT [facility] Start: 2011 Adult depression screening assessment DEPRESSION SCREENING [facility] Start: 2011 PEDS TO ADULT TRANSITION INITIAL DISCUSSION PEDS TO ADULT TRANSITION INITIAL DISCUSSION [facility] Start: 10-08-2010 HPV VACCINE (1 - 2-dose series) HPV VACCINE (1 - 2-dose series) [facility] Start: 04-09-2000 COVID-19 VACCINE (#1) COVID-19 VACCINE (#1) [facility] Nonrebreather mask oxygen Nonreb reather mask oxygen Respiratory Care Routine As directed - RT (PRN) until discontinued starting 04/26/2020 [place] Comment on above: As directed - RT (PA N) until discontinued starting 04/26/2020 Oxygen therapy [[facility] Data Set] Initiate Oxygen Therapy Protocol Respiratory Care Routine Daily until discontinued starting 04/26/2020 [place] Comment on above: Daily until disconti nued starting 04/26/2020 Spirometry panel Incentive roger metry Respiratory Care Routine Every 2hr while awake until discontinued starting 04/26/2020 [place] Comment on above: Every 2hr while awak e until discontinued starting 04/26/2020 Hiko Rosasi c Immunizations Immunization Date Immunization Notes Care Provider Fa solo 04-28-2020 tetanus toxoid, redu paula diphtheria toxoid, and acellular pertussis vaccine, adsorbed Chelsi Parra [facility], [place] 04-27-2020 influenza, injectabl e, quadrivalent, preservative free [place], [place] 04-26-2020 influenza quadrivale nt split vaccine (FLUZONE;FLUARIX;FLULAVAL; AFLURIA) injection 0.5 mL [place] 04-26-2020 diphtheria, tetanus toxoids and acellular pertussis vaccine, unspecified formulation [place], [place] Payers Date Payer Category Payer Medicaid [employer] [place] [id number] 2020-Present [phone] [address] [address] [place], [place] [address] Medicaid [id number] 2020 [employer] ( and others) [id number] 1999 Unknown [id number] 1999 Unknown [id number] 593 1999 Unknown [id number] 356 1999 Unknown [id number] 356 1999 Unknown [id number] 727 1999 Unknown [id number] 727 1999 Unknown [id number]. 1259 1999 Unknown [id number]. 1259 1999 Unknown [id number]. 1259 1959 Unknown [id number] Social History Date Type Detail Facility Start: 04-28-2020 End: 11-07-2021 Tobacco smoking status ALIS Never smoker [facility] Start: 04-28-2020 End: 11-07-2021 Tobacco use and exposure Never used [place] Start: 04-28-2020 Alcohol intake Ex-drinker (finding) [place] Start: 2000 Sex Assigned At Not on file [facility] [place] Start: 10-28-2021 End: 11-07-2021 Exposure to SARS-CoV-2 (event) Not sure [place] Tobacco [facility] Comment on above: denies Sex Assigned At Female [facility] Tobacco smoking status No Smoking Status Entered [facility] Functional Status Date Assessment Result Facility 10-14-2022 Functional Status N/A [facility] 12-19-2021 Functional Status N/A [facility] 11-01-2021 Functional Status N/A [facility] Clinical Notes 04-28-2020 to 02-01-2023 Note Date & Type Note Facility 02-01-2023 Note The following Patien t Education Materials have been given to the patient: EducationMaterial [facility] 10-14-2022 Hospital Discharg e instructions Patient Education 10/14/2022 13:55:20 Sutures, Diboll, or Adhesive Wound Closure, Sqzg-gq-Npsi Sutures, Diboll, or Adhesive Wound Closure Doctors use stitches [...] ?Hold the edges of the wound together. ?Turon the glue onto your skin. You may [...] skin reaction that can lead to infection. Diboll Azalia are often used to close cuts from surgery (incisions). To use azalia, your doctor will: Hold the edges of your wound close together. Place a staple across the wound. Use a tool to secure the staple to the skin. Repeat this with as many azalia as needed. Diboll are faster to use than sutures, and they cause less reaction from your skin. Azalia need to be taken out using a tool that bends the azalia away from your skin. Follow these instructions at home: Medicines Take ifay-xea-cmyogjt and prescription medicines only as told by [...] cannot use soap and water, use hand target network analyst. Do not try to take off or [...] provider. Document Revised: 08/19/2021 Document Reviewed: 08/19/2021 [email or web address] Patient Education 2022 AngioScore. Follow Up Care 10/14/2022 12:20:41 With:Baljit Watts Address: [address] [place] [address]- Business (1) When:10/17/2022 13:48:24 [facility] 12-19-2021 Evaluation + Plan note Extrac nino [...] w/ Auto Diff eGFR PT & PTT [facility]08-25-2022 Hospital Discharge instructions Patient Education 12/19/2021 04:06:21 Dysfunctional Uterine Bleeding Dysfunctional Uterine Bleeding Dysfunctional uterine bleeding is abnormal bleeding from the uterus. Dysfunctional uterine bleedingincludes: A menstrual period that comes earlier or later than usual. A menstrual period that is circus supervisor or heavier than usual, or has large [...] to keep your urine pale yellow. ?Take funw-qsy-vyeqjiu or prescription medicines. ?Eat foods that are high in fiber, such as beans, whole grains, and fresh fruits and vegetables. ?Limit foods that are high in fat and processed sugars, such as fried or sweet foods. Medicines Take kvlk-fee-abnwtnn and prescription medicines only as told by [...] 04/10/2001 Document Revised: 09/22/2018 Document Reviewed: 09/22/2018 [email or web address] Patient Education 2020 AngioScore. Follow Up Care 12/19/2021 01:46:43 With:Ozzy Martinez Address: [facility] [address] [place] [id number] Business (1) When:12/22/2021 [facility]07-21-2022 NoteHNO ID: [id number] Author: Grover Amaral, DIXON Service: ? Author Type: PROTECTIVE SIGNAL SUPERINTENDENT Type: Progress Notes Filed: 11/14/2021 2:32 PM [...] Grover Amaral, OD November 14, 2021 2:29 [facility]07-21-2022 History of Present illness Narrative* [...] 14, 2021 2:29 PM [facility] NoteHNO ID: [id number] Author: Grover Amaral OD Service: ? Author Type: PROTECTIVE SIGNAL SUPERINTENDENT Type: Progress Notes Filed: 11/07/2021 4:03 PM [...] Grover Amaral, DIXON November 07, 2021 4:03 [facility]07-14-2022 Miscellaneous Notes* Addendum Note - Grover Amaral OD - 11/07/2021 4:06 PM EDT Addended by: GROVER AMARAL on: 11/07/2021 04:06 PM Modules accepted: Orders documented in [facility]22 History of Present illness Narrative* Grover Amaral OD - 11/07/2021 4:01 PM EDT (B30.9) [...] 07, 2021 4:03 PM documented in this [facility]-2022 Evaluation + Plan note Extracted from: Title:ED Note Author:Keanu Kamara DO Date: Allergic reaction (T78.40XA: Allergy, unspecified, initial encounter) Orders: predniSONE, 60 mg = 3 tab(s), Oral, Daily, X 5 day(s), # 15 tab(s), Refills(s) 0, Pharmacy: [facility]/pharmacy #[id number], 165, cm, 11/01/21 8:11:00 EDT, Height/Length Dosing, 63, kg, 11/01/21 8:11:00 EDT, Weight Dosing [facility]07-08-2022 Hospital Discharge instructions Patient Education 11/01/2021 08:25:17 [...] care provider who specializes in treating allergies (parts coordinator) or eye conditions (bottling supervisor) for tests to confirm the diagnosis. You [...] Eye drops. These may be prescription or lhws-mis-gorcbuf. There are several different types. You may [...] known allergens whenever possible. Take or apply ipki-brb-outadsi and prescription medicines only as told by [...] 07/04/2003 Document Revised: 03/26/2018 Document Reviewed: 10/24/2016 [email or web address] Patient Education 2020 AngioScore. Follow Up Care 11/01/2021 08:05:40 With:Johanna Huynh Address: [address] [address]- Business (1) When:11/04/2021 08:24:58 Comments:Call today to arrange for follow-up appointment on Thursday or Thursday. Return to the ED with new or worsening symptoms as discussed. With:Baljit Watts Address: [address] [place] [address]- Business (1) When:11/04/2021 08:24:46 Comments:Call the office [...] you develop any new or worsening symptoms. [facility]05-25-2022 Hospital Discharge instructions Patient Education 09/18/2021 12:07:29 [...] may be recommended to support your foot. Yckj-xbr-vxdelsk anti-inflammatory medicines may also be recommended for [...] sitting or lying down. General instructions Take xcfd-avh-pzjyzrz and prescription medicines only as told by [...] 02/02/2007 Document Revised: 12/14/2018 Document Reviewed: 12/14/2018 [email or web address] Patient Education 2020 Revstr Follow Up Care 09/18/2021 09:48:23 With:Baljit Link Address: [address] [place] [address] [facility] (1) When:09/21/2021 11:47:11 Comments:Return to the emergency room if your pain gets worse or any new symptom [facility]05-25-2022 Evaluation + Plan noteExtracted from: Title:ED Note Author:Amos Espinoza M.D. te:09/18/21 1. Contusion of left foot (S 90.32XA: Contusion of left foot, initial encounter) Orders: Post-op Shoe XR Foot 3+ Views Left [facility]01-02-2021 NoteDepartment of Obstetrics and Gynecology Delivery Discharge Summary Admission on 04/25/2020 1:08 PM Reason for admission: 04/25/2020 Intrapartum Course: N/A 30w6d PC-01 Indications for Delivery: Was patient delivered between 37w0d - 28d1dhwuub? NO Surgical Operations & Procedures: Date of delivery: 04/26/2020 Delivery Type: without labor Anesthesia: Spinal anesthesia Laceration(s): n/a Delivery Complications: none EBL: 700 cc Pertinent Findings & Procedures: Information for the patient's : Ree Herrera [[id number]] female Weight: 2 lb 12.3 oz (1.256 kg) Apgars: Information for the patient's : Ree Herrera [[id number]] One Minute : 6 Five Minute : 7 Course: Magnesium sulfate and Procardia for PEWSF Infant: Female Blood Type/Rh: O POS Antibody Screen: Antibody Screen Date Value Ref Range Status 04/25/2020 NEG NA Final Rubella: No results found for: RUBELLAIGG Contraception: will be discussed with her provider at [place] : no VTE Prophylaxis: Not Indicated Meds: Anand Herrera Home Medication Instructions RANDA:[id number] Printed on:04/28/20 1238 Medication Information ferrous sulfate [...] in [address] Wray in [place]. Condition on discharge: Stable Discharge to: Home [...] know - She will follow with her RESIDENT ENGINEER in [facility] will call Dr. 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 NO Surgical Operations & Procedures: Date of delivery: 04/26/2020 Delivery Type: without labor Anesthesia: Spinal anesthesia Laceration(s): n/a Delivery Complications: none EBL: 700 cc Pertinent Findings & Procedures: Information for the patient's : Ree Herrera [[id number]] female Weight: 2 lb 12.3 oz (1.256 kg) Apgars: Information for the patient's : Ree Herrera [[id number]] One Minute : 6 Five Minute : 7 Course: Magnesium sulfate and Procardia for PEWSF Infant: Female infant Blood Type/Rh: O POS Antibody Screen: Antibody Screen Date Value Ref Range Status 04/25/2020 NEG NA Final Rubella: No results found for: RUBELLAIGG Contraception: will be discussed with her provider at [place] : no VTE Prophylaxis: Not Indicated Meds: Anand Herrera Home Medication Instructions RANDA:[id number] Printed on:04/28/20 7379 Medication Information ferrous sulfate (IRON 325) 325 [...] in [address] Wray in [place]. Condition on discharge: Stable Discharge to: Home [...] know - She will follow with her RESIDENT ENGINEER in [place] - I will call Dr. Wray answering service at [phone] to update him with her condition, medications, [...] allowing us to care of you at [facility]. This time can be one of [...] over the next few weeks. Bleeding may picking supervisor and then decrease again around 7-10 days [...] avoid constipation you may take a mild tclb-dxz-miydbti stool softener (such as colace) as recommended [...] clean your hands with an alcohol-based hand target network analyst that contains at least 60% alcohol. Clean your hands often Wash your hands often with soap and water for at least 20 seconds, especially after blowing your nose, coughing, or sneezing; going to the bathroom; and before eating or preparing food. If soap and water are not readily available, use an alcohol-based hand target network analyst with at least 60% alcohol, covering all [...] provider to call the local or formerly [facility] health department. Persons who are placed underactive [...] isolation precautions should be made on a iuob-kd-kksq basis, in consultation with healthcare providers and [facility] health departments. Information on COVID-19 for all [...] respiratory tract signs and symptoms. Ways to [place] with Anxiety & Stress It is normal [...] an illness that was first found in [facility], in March 2019. It has since spread [...] seen in people before. This virus spreads fhfezg-bh-aoqtzs through droplets from coughing and sneezing. It [...] water aren't available, use an alcohol-based hand target network analyst. Call 911 anytime you think you may [...] of: July 27, 2019 Content Version: 12.4 [employer]. Care instructions adapted under license by your healthcare professional. If you have questions about a medical condition or this instruction, always ask your healthcare professional. [employer] disclaims any warranty or liability for your use of this information. General Recommendations for Routine Cleaning and Disinfection of Households Community members can practice routine cleaning of frequently touched surfaces (for example: tables, doorknobs, light switches, handles, desks, toilets, faucets, sinks) with household application manager and EPA-registered disinfectants that are appropriate for [...] appropriate. These supplies include tissues, paper towels, application manager and EPA-registered disinfectants (see list link at [...] be used for other purposes. Consult the day care worker's instructions for cleaning and disinfection products used. [...] used if appropriate for the surface. Follow day care worker's instructions for application and proper ventilation. Check [...] o Products with EPA-approved emerging viral pathogens [facility] iconexternal icon are expected to be effective against COVID-19 based on data for harder to kill viruses. Follow the day care worker's instructions for all cleaning and disinfection products (e.g., concentration, application method and contact time, etc.). Soft (porous) surfaces such as carpeted floor, rugs, and drapes Remove visible contamination if present and clean with appropriate application manager indicated for use on these surfaces. After cleaning: Launder items as appropriate in accordance with the day care worker's instructions. If possible, launder items using the [...] items as appropriate in accordance with the day care worker's instructions. If possible, launder items using the warmest appropriate water setting for the items and dry items completely. Dirtylaundry from an ill person can be washed with other people's items. o Clean and disinfect clothes hampers according to guidance above for surfaces. If possible, consider placing a utility bagger that is either disposable (can be thrown away) or can be laundered. [facility] has a list of EPA approved cleaning products on their website - https://www.cdc.gov/coronavirus/ 2019-ncov/community/home/cleaning-disinfection.html https://www.Feedo/Zxney-Xsvqihwxclh-Gvuauxax-Products-List.pdf [employer] with delivery and picking supervisor services: [employer]: Free picking supervisor at locations Delivery is $12.95 a month Website - [employer] [place]: Property Utilization Manager $2.95 (1st order is free) Delivery is $14.95 Website [employer]: supervisor chassis assembly is free Delivery is $5.95 Wearable [employer]: supervisor chassis assembly is $4.95 Delivery is $9.95 Website [employer]: supervisor chassis assembly is $4.95 Delivery is $9.95 [employer]: Can be ordered for delivery and picking supervisor with [employer] Website - www.The [employer]: Free deliver for first 3 orders of $35 or more Website aldiWipit Will deliver from [employer], [employer], [employer], and [employer]. Annual membership is [...] know - She will follow with her RESIDENT ENGINEER in [place] - I will call Dr. 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 Matos for pre-eclampsia with SF at 30 5/7 weeks GA transfer from [place]/Dr Stevens Notified by Dr. Castellanos about the concerns for well being and the concerns of the heart rate tracing. Reviewed with him real time confidentially on face time while he was in the [facility] lounge and I was at home secondary [...] concern for concealed abruption. I did not prevocational/rehabilitation counselor the patient directly of the R/B/A [...] day, as when she first arrived to [facility] more moderate than minimal. Patient rajeev q10-15 [...] section and content) DATE CREATED AUTHOR 04/18/2020 [facility] DATE CREATED AUTHOR AUTHOR'S ORGANIZ ATION 02/28/2021 [facility] DATE CREATED AUTHOR AUTHOR'S ORGANIZ ATION 11/16/2021 [facility] DATE CREATED AUTHOR AUTHOR'S ORGANIZ ATION 09/10/2022 [facility] DATE CREATED AUTHOR AUTHOR'S ORGANIZ ATION 11/13/2022 [facility] DATE CREATED AUTHOR AUTHOR'S ORGANIZ ATION 02/04/[address] [facility] DATE CREATED AUTHOR AUTHOR'S ORGANIZ ATION 04/02/2023 [facility] EPIC Reason for Visit [...] Care Team (unrecognized sect ion and content) Floor Renovator Relationship Specialty Start Date End Date Baljit Watts MD [address] [place] [address] PCP - General Family Practice 11/07/21 Floor Renovator Relationship Specialty Start Date End Date Baljit Watts MD [address] [place] [address] PCP - General Family Practice 11/07/21 Source Comments (unrecognize d section and content) In the event this informatio n is protected by the Federal Confidentiality of Alcohol and Drug Abuse Patient Records regulations: The Federal rules restrict any use of the information to criminally investigate or prosecute any alcohol or drug abuse patient.[facility] Center[facility] the event this information is protected by the Federal Confidentiality of Alcohol and Drug Abuse Patient Records regulations: The Federal rules restrict any use of the information to criminally investigate or prosecute any alcohol or drug abuse patient.[facility] FOR RECORDS PERTAINING TO PATIENTS WHO ARE [...] BE BASED ON THE PRIMARY CLINICAL RECORDS. [facility] [employer] [facility]. provides no warranty or guarantee of the accuracy or completeness of information in this document.
== END 2023-03-10 22:01 | disposition home or self-care (01) ==
LOC: LAB 22:00
PROVIDERS: Visit Provider Obstetrics & Gynecology
DX: R51.9 Headache, unspecified (principal); Z87.898 Personal history of other specified conditions
CPT/HCPCS: 84156

== ENCOUNTER 2023-03-11 09:01 | Outpatient (RCR) | payer OTHER, SELFPAY ==
[2023-03-11 09:15] VITALS: BP 118/72; PULSE 106
[2023-03-11] MEDS: BETAMETHASONE ACE/BETAMETHASONE SOD PHOS 30 MG/5 ML 12 MG IM (09:17)
== END 2023-03-11 09:20 | disposition home or self-care (01) ==
LOC: FBCO 09:01
PROVIDERS: Visit Provider Obstetrics & Gynecology
DX: O60.03 Preterm labor without delivery, third trimester (principal); Z3A.36 36 weeks gestation of pregnancy
CPT/HCPCS: 96372; J0702

== ENCOUNTER 2023-03-12 10:56 | Outpatient (OUT) | payer OTHER, SELFPAY ==
--- NOTE | 2023-03-12 10:57 | US_ITS ---
[address] [address] Patient Name: ANAND PERALES MRN: [id number] date: 2000 Sex: F Assigned Patient Location: US Current Patient Location: Accession/Order Number: [id number] Exam Date: 03/12/2023 10:58 Report Date: 03/12/2023 15:17 At the request of: SILAS VELIZ Procedure: US OB cervical length EXAMINATION: US OB cervical length HISTORY: HISTORY OF PRE TERM LABOR COMPARISON: No relevant comparison available. FINDINGS: The cervix is closed measuring 3.6 cm in length US/US OB cervical length IMPRESSION: Closed cervix measuring 3.6 cm Electronically authenticated by: JESS NICOLE Date: 03/12/2023 15:17
== END 2023-03-12 10:57 | disposition home or self-care (01) ==
LOC: US 10:56
PROVIDERS: Visit Provider Obstetrics & Gynecology
DX: O09.893 Supervision of other high risk pregnancies, third trimester (principal); Z3A.00 Weeks of gestation of pregnancy not specified
CPT/HCPCS: 76817; 87081

== ENCOUNTER 2023-03-12 19:22 | Outpatient (REF) | payer OTHER, SELFPAY | END 2023-03-12 19:23 | disposition home or self-care (01) | LOC: LAB 19:22 | PROVIDERS: Visit Provider Physician Assistant | DX: Z34.93 Encounter for supervision of normal pregnancy, unspecified, third trimester (principal) | CPT/HCPCS: 87081 ==

== ENCOUNTER 2023-03-13 07:04 | Outpatient (OUT) | payer OTHER, SELFPAY ==
--- NOTE | 2023-03-13 07:48 | US_ITS ---
[address] [address] Patient Name: ANAND PERALES MRN: [id number] date: 2000 Sex: F Assigned Patient Location: [facility] Current Patient Location: [facility] Accession/Order Number: [id number] Exam Date: 03/13/2023 07:50 Report Date: 03/13/2023 08:47 At the request of: SILAS VELIZ Procedure: US OB BPP w non-stress EXAMINATION: US OB BPP w non-stress HISTORY: Pre-eclampsia COMPARISON: No relevant comparison available. TECHNIQUE: Ultrasound biophysical profile was performed in the radiology department. FINDINGS: BREATHING MOVEMENTS: 0.0 GROSS BODY MOVEMENTS: 2.0 TONE: 2.0 QUALITATIVE AMNIOTIC FLUID VOLUME: 2.0 PRESENTATION: CEPHALIC HEART RATE: 156.1 bpm H.B./min AMNIOTIC FLUID VOLUME: 14.1 cm cm GESTATIONAL AGE: 36 weeks 2 days CONCLUSION: Total biophysical profile score: 6.0 Electronically authenticated by: JESS NICOLE Date: 03/13/2023 08:47
[2023-03-13 08:38] VITALS: BP 127/63; PULSE 123
== END 2023-03-13 10:00 | disposition home or self-care (01) ==
LOC: US 07:05 → FBC 07:42
PROVIDERS: Visit Provider Obstetrics & Gynecology
DX: O14.93 Unspecified pre-eclampsia, third trimester (principal); Z3A.36 36 weeks gestation of pregnancy; O09.213 Supervision of pregnancy with history of pre-term labor, third trimester
CPT/HCPCS: 76818

== ENCOUNTER 2023-03-14 07:48 | Outpatient (OUT) | payer OTHER, SELFPAY ==
[2023-03-14 07:52] VITALS: RESP 16
[2023-03-14 07:54] VITALS: BP 138/78; PULSE 91; TEMP 36.2
--- NOTE | 2023-03-14 08:00 | US_ITS ---
[address] [address] Patient Name: ANAND PERALES MRN: [id number] date: 2000 Sex: F Assigned Patient Location: US Current Patient Location: US Accession/Order Number: [id number] Exam Date: 03/14/2023 08:40 Report Date: 03/15/2023 01:55 At the request of: SILAS VELIZ Procedure: US OB BPP w non-stress EXAMINATION: US OB BPP w non-stress HISTORY: FAILED BPP 03-12-2023 COMPARISON: Ultrasound biophysical 03/13/2023; ultrasound OB growth 03/10/2023 TECHNIQUE: Ultrasound biophysical profile was performed in the radiology department. BREATHING MOVEMENTS: 2.0 GROSS BODY MOVEMENTS: 2.0 TONE: 2.0 QUALITATIVE AMNIOTIC FLUID VOLUME: 2.0 PRESENTATION: CEPHALIC HEART RATE: 147.5 bpm bpm. AMNIOTIC FLUID VOLUME: 13.8 cm GESTATIONAL AGE: 36 weeks 3 days CONCLUSION: 1. Total biophysical profile score 8.0. 2. Prominent appearance of left kidney, 8.1 cm in length (right kidney is 4.4 cm in length); possible duplicated upper collecting system. Electronically authenticated by: BILLIE SMITH Date: 03/15/2023 01:55
== END 2023-03-14 09:17 | disposition home or self-care (01) ==
LOC: US 07:49 → FBC 07:49
PROVIDERS: Visit Provider Obstetrics & Gynecology
DX: O14.93 Unspecified pre-eclampsia, third trimester (principal); Z3A.36 36 weeks gestation of pregnancy; O09.893 Supervision of other high risk pregnancies, third trimester
CPT/HCPCS: 59025; 76818

== ENCOUNTER 2023-03-17 07:26 | Outpatient (OUT) | payer OTHER, SELFPAY ==
[2023-03-17 07:34] VITALS: BP 144/68; PULSE 116
[2023-03-17 07:59] VITALS: BP 140/79; PULSE 112
--- OUTSIDE RECORDS SUMMARY | 2023-04-14 22:04 | XMS_ITS | CCD ---
Author Name Unknown Address [address] [place] [address] Organization [facility] Care Team Providers Care Assistant Offset Press Operator Name Role Phone Unavailable Primary Care Provider Unavailabl Baljit Grant Primary Care Physician Baljit Watts MD Primary Care Provider JC ., DR ROSEN Admitting Unavailable JC ., DR ROSEN Attending Unavailable JC ., DR ROSEN Consulting Unavailable ZieberBillie Consulting Unavailable REQUEST, DR MCGUIRE LISTED Consulting Unavaila ble JC ., DR ROSEN Consulting Unavailable JC ., DR ROSEN Admitting [facility] Primary Care Unavailable JC ., DR ROSEN Attending Unavailable DELHI, KELL Attending Unavailable Jc, Dr. Marco A [...] day(s), # 20 tab(s), Refills(s) 0, Pharmacy: [facility]/pharmacy #[id number], 164, cm, 10/14/22 12:30:00 EDT, Height/Length Dosing, 66, kg, 10/14/22 12:30:00 EDT, Weight Dosing Start Date: 10/14/22 Stop Date: 10/24/22 Status: Ordered Start: 10-31-2021 [facility] 1 [facility] hours amoxicillin 500 mg Cap 500 mg = 1 cap(s), Oral, q12hr, # 20 cap(s), Refills(s) 0, Pharmacy: [facility]/pharmacy #[id number], 165, cm, 10/31/21 12:19:00 EDT, Height/Length [...] tablet 3 04/29/2020 Active Start: 04-26-2020 NIFEdipine (NH OCARDIA XL) extended release tablet 30 mg [...] Date: 01/31/23 Status: Ordered polyethylene glycol 3350 12907 mg powder for oral solution (1 source) [...] for 10 day(s), 20 tab(s), Refill(s) 0, [facility]/pharmacy #[id number], 165, cm, 10/31/21 12:19:00 EDT, Height/Length [...] day(s), # 15 tab(s), Refills(s) 0, Pharmacy: [facility]/pharmacy #[id number], 165, cm, 11/01/21 8:11:00 EDT, Height/Length [...] Facil ity Nursing Assessmenton 023 Nursing Assessment [id number]#1.00TIFF Normal [facility] C Urineon 02-02-2023 Bacteria identified Cx [...] Locations R1: This test was performed at: [facility], [address] [place] [address], [address] , , Normal [facility] Comment on above: Performed By: #### 1 9389707, [id number], 1866961, 3620525 ####[address] [place] [address] ABO/Rhon 02-01-2023 ABO/Rh Positive Invalid Interpretation Code [facility] Comment on above: Performed By: #### 1 4202788, 38213516, 6086853 ####[facility] [address] [place] [address] ABSCon 02-01-2023 ABSC Gel Interp Negative Normal [facility] Comment on above: Performed By: #### 1 7590431, 87173699, 2199086 ####[facility] [address] [place] [address] BUNon 02-01-2023 Urea nitrogen [Mass/Vol] 9 mg/dL Normal 5-21 [facility] Comment on above: Performed By: #### 2 977797, 0796130, 9152012, 63791210, 76775132, 8604979, 55709143, 9148846, 3493103, 0212813 ####[facility] [address] [place] [address] Blood Bank ID#on 02-01-2023 BBID# [id number] Invalid Interpretation Code [facility] Comment on above: Performed By: #### 1 3515877, 31976734, 8613981 ####[facility] [address] [place] [address] Buprenorphine Scr Uron 02-01 U Suboxone Scr Negative Normal Negative [facility] Comment on above: Result Comment: Nega tive Cutoff: <10 ng/mL These drug screen results are to be used for medical (i.e., treatment) purposes only. Unconfirmed drug screening results must not be used for non-medical purposes (e.g., employment testing, legal testing). Performed By: #### 1 5410958, 079584542, 4718082, 3688967 ####[facility] [address] [place] [address] CBC w/Indiceson 02-01-2023 Erythrocyte distribution wid th (RBC) [Ratio] 14.4 % High 10.9-14.2 [facility] Comment on above: Performed By: #### 2 857452, 8523144, 5252108, 00363903, 59338267, 5823172, 55423784, 0596363, 6657796, 0286900 ####[facility] [address] [place] [address] Hematocrit (Bld) [Volume fraction] 32.9 % Low 3 4.0-46.0 [facility] Comment on above: Performed By: #### 2 539212, 9621755, 0685302, 74870841, 57711145, 0129933, 81406734, 3947435, 3842437, 2261342 ####[facility] [address] [place] [address] Hemoglobin (Bld) [Mass/Vol] 11.1 g/dL Low 12.0-16. 0 [facility] Comment on above: Performed By: #### 2 685357, 7484300, 9322174, 12246746, 19487515, 9333762, 88275108, 7328959, 8511354, 0951237 ####[facility] [address] [place] [address] MCH (RBC) [Entitic mass] 30.4 pg Normal 27.0-34.0 [facility] Comment on above: Performed By: #### 2 288061, 0483905, 0340768, 97059782, 96098720, 9206336, 43766327, 9443166, 0120149, 1257919 ####[facility] [address] [place] [address] MCHC (RBC) [Mass/Vol] 33.7 g/dL Normal 31.4-36.0 [facility] Comment on above: Performed By: #### 2 047505, 1597111, 0811740, 42055866, 49700941, 1851231, 99432003, 4520960, 8956081, 1644665 ####[facility] [address] [place] [address] MCV (RBC) [Entitic vol] 90.4 fL Normal 80.0-100.0 [facility] Comment on above: Performed By: #### 2 824205, 0135142, 2188132, 36855429, 72400749, 5792130, 87826988, 5352456, 8939963, 2204662 ####[facility] [address] [place] [address] Platelet mean volume (Bld) [Entitic vol] 7.4 fL Normal 6.4-10.8 [facility] Comment on above: Performed By: #### 2 258619, 5007194, 5539795, 14569636, 51814598, 2976946, 33812580, 2391195, 5873088, 1985982 ####[facility] [address] [place] [address] Platelets (Bld) [#/Vol] 317.0 E9/L Normal 150.0-500.0 [facility] Comment on above: Performed By: #### 2 803726, 3975734, 2731313, 81081152, 14502759, 1305887, 24565840, 2610063, 9474342, 3423619 ####[facility] [address] [place] [address] RBC (Bld) [#/Vol] 3.6 E12/L Low 4.3-5.9 [facility] Comment on above: Performed By: #### 2 015663, 3417364, 4804599, 28044110, 10252843, 7592972, 50059639, 0808125, 0064471, 9557257 ####[facility] [address] [place] [address] WBC corrected for nucl RBC A uto (Bld) [#/Vol] 8.2 E9/L Normal 4.0-11.0 [facility] Comment on above: Performed By: #### 2 528451, 7424636, 2270779, 01711910, 41312250, 1914072, 49495211, 8734884, 1078663, 4237409 ####[facility] [address] [place] [address] Consent for Treatmenton Consent for Treatment [id number]#1.00TIFF Normal [facility] Creatinineon 02-01-2023 Creatinine [Mass/Vol] 0.5 mg/dL Normal 0.5-1.3 [facility] Comment on above: Performed By: #### 2 818586, 7664743, 8158810, 79044942, 51433867, 3721570, 81554131, 4038117, 9139331, 3402457 ####[facility] [address] [place] [address] Delivery Summaryon 3 Delivery Summary [id number]#1.00TIFF Normal [facility] Stainon 02-01-2023 FMHV 0 mL Invalid Interpretation Code [facility] Comment on above: Performed By: #### 2 988922, 3843422, 4154663, 12934950, 37123135, 0493397, 15185334, 6153117, 9857066, 0107548 ####[facility] [address] [place] [address] Negative Control Negative Normal [facility] Comment on above: Performed By: #### 2 763509, 1229874, 2947523, 51602847, 55094409, 8077815, 01547510, 2197693, 3161425, 9268644 ####[facility] [address] [place] [address] Fibrinogenon 02-01-2023 Fibrinogen Coag (PPP) [Mass/Vol] 409 mg/dL High 200 -393 [facility] Comment on above: Performed By: #### 2 143259, 3419885, 2167214, 59288503, 06621183, 9093456, 13299071, 8589398, 7838535, 0102335 ####[facility] [address] [place] [address] Hep Func Panelon 02-01-2023 Bilirubin.indirect [Mass or moles/Vol] UTC Abnormal 0.1-0.9 [facility] Comment on above: Result Comment: Resu lt verified by Discern Rule. Performed result UTC (Unable to Calculate) was sent as an Alpha code due the inability to calculate a valid numeric value. Performed By: #### 2 838346, 8638828, 7806885, 88668873, 44557214, 7750948, 74394620, 6791343, 2104059, 0709329 ####[facility] [address] [place] [address] Albumin [Mass/Vol] 3.0 g/dL Low 3.3-5.0 [facility] Comment on above: Performed By: #### 2 730788, 9036882, 3110962, 73872348, 45681304, 5281884, 22201881, 4996005, 1381749, 2774673 ####[facility] [address] [place] [address] Albumin/Globulin (S) [Mass conc ratio] 0.8 Low 1.1-2.2 [facility] Comment on above: Performed By: #### 2 187679, 3048046, 2107414, 84386015, 19387599, 0188652, 45510834, 2049731, 8047289, 6545347 ####[facility] [address] [place] [address] ALP [Catalytic activity/Vol] 66 Int._Unit/L Normal 21- 98 [facility] Comment on above: Performed By: #### 2 691212, 9995040, 6696451, 48695638, 54583676, 7107813, 62354238, 6217445, 6107255, 4586238 ####[facility] [address] [place] [address] ALT No additional P-5'-P [Catalytic activity/Vol] 16 Int._Unit/L Normal 6-46 [facility] Comment on above: Performed By: #### 2 686115, 5935633, 4288640, 94149680, 28215142, 6068793, 02425773, 3337342, 3135583, 0851753 ####[facility] [address] [place] [address] AST [Catalytic activity/Vol] 21 Int._Unit/L Normal 5-4 3 [facility] Comment on above: Performed By: #### 2 162125, 0933102, 0620769, 69728391, 33575290, 7415653, 18713348, 2938869, 5554850, 0029226 ####[facility] [address] [place] [address] Bilirubin [Mass/Vol] 0.3 mg/dL Normal 0.0-1.1 [facility] Comment on above: Performed By: #### 2 658054, 9679603, 4278323, 09014490, 38535295, 5486710, 83173366, 5163641, 3051576, 8680533 ####[facility] [address] [place] [address] Globulin (S) [Mass/Vol] 3.8 g/dL Normal 1.4-4.0 [facility] Comment on above: Performed By: #### 2 159117, 9414915, 4053907, 34626010, 84767915, 2122221, 39057008, 7527558, 6293671, 1733505 ####[facility] [address] [place] [address] Protein [Mass/Vol] 6.8 g/dL Normal 6.0-7.8 [facility] Comment on above: Performed By: #### 2 602315, 2414064, 5260691, 22989583, 97718960, 0010233, 84724524, 0148750, 3689493, 4411219 ####[facility] [address] [place] [address] Bilirubin.direct [Mass/Vol] mg/dL Normal 0.1-0.4 [facility] Comment on above: Performed By: #### 2 499039, 0486626, 3845819, 69142517, 68246221, 9989744, 46706538, 2877382, 4946517, 9365057 ####[facility] [address] [place] [address] Inpatient Clinical Summaryon 02-01-2023 Inpatient Clinical Summary [address] [address] Clinical Summary Person Information Name: ANAND HERRERA [facility]celyn/[facility] Age: 22 Years : 2000 Sex: Female PCP: Baljit Watts DO Marital Status: Single Race: White Ethnicity: Non- or Language: Estonian Visit Id: Visit Reason: Speciality: Acuity: Obs Enc Type: OB Triage Med Service: Obstetrics Arrival: 01/31/2023 22:47:02 Discharge: 02/01/2023 02:47:00 Dispo Type: Home (Routine DC) Address: [address] [place] [id number] Provider Notes: Diagnosis: Problems Active (01/31/2023) Iron [...] Referring Physician: Follow up: With: Address: When: [facility], [address] [place] [address] , [place], [place] [id number] Busi (more content not included)... Normal [facility] Inpatient Patient Summaryon 02-01-2023 Inpatient Patient Summary [address] [address] Patient Discharge Instructions PERSON INFORMATION [...] test results: Follow up: With: Address: When: [facility], [address] [place] [address] , [place] [address] Business (1) In 8 days 02/09/2023 Comments: [...] may feel (more content not included)... Normal [facility] Insurance Correspondenceon 1 Insurance Correspondence [id number]#1.00TIFF Normal [facility] Lyteson 02-01-2023 Anion gap [Moles/Vol] 5 mmol/L Low 6-16 [facility] Comment on above: Performed By: #### 2 443529, 4094806, 1111826, 43733301, 13973794, 3799625, 20913129, 5569327, 3367578, 7955666 ####[facility] [address] [place] [address] Chloride [Moles/Vol] 110 mmol/L Normal 101-111 [facility] Comment on above: Performed By: #### 2 767768, 1361155, 9717904, 81381845, 62280118, 4011488, 00852020, 0749718, 9943584, 3891581 ####[facility] [address] [place] [address] CO2 [Moles/Vol] 25 mmol/L Normal 21-31 [facility] Comment on above: Performed By: #### 2 286384, 2156707, 0505475, 37054274, 87201695, 0284491, 50035115, 7447176, 6529135, 1808592 ####[facility] [address] [place] [address] Potassium [Moles/Vol] 3.5 mmol/L Normal 3.5-5.3 [facility] Comment on above: Performed By: #### 2 174132, 1467815, 4945011, 96616101, 72106227, 9373857, 62032530, 4210627, 9020644, 7742988 ####[facility] [address] [place] [address] Sodium [Moles/Vol] 136 mmol/L Normal 135-145 [facility] Comment on above: Performed By: #### 2 727021, 6793188, 6081653, 49740387, 64713339, 0246189, 21234960, 0203007, 5856108, 1537435 ####[facility] [address] [place] [address] PT & PTTon 02-01-2023 aPTT Coag (PPP) [Time] 26.9 second(s) Normal 25.1-36.5 [facility] Comment on above: Result Comment: Para [...] the same coagulation reagent and instrumentation as [facility]. Currently there are no coagulation studies available worldwide for children to 14 days, and no normal ranges. Heparin therapeutic range (represented by Anti-Factor Xa activity of 0.2 - 0.4 U/mL) corresponds to PTT of 56.6 - 109.0 sec. Performed By: #### 2 790082, 2125480, 3580826, 13054183, 31688153, 6658063, 35900999, 4137164, 1004532, 7004233 ####[facility] [address] [place] [address] INR Coag (PPP) [Relative time] 0.9 {INR} Invalid Interpretation Code [facility] Comment on above: Result Comment: INR results are specifically intended to assess patients stabilized on long-term Anticoagulation therapy suggested INR?s ?Less Intensive Anticoagulation? 2.0 ? 3.0 Conventional Range 3.0 ? 4.5 Performed By: #### 2 606295, 2388599, 9051548, 13720126, 98340085, 1718425, 42374106, 4276281, 2633900, 6894075 ####[facility] [address] [place] [address] PT Coag (PPP) [Time] 9.7 second(s) Normal 9.4-12.5 [facility] Comment on above: Result Comment: 15 [...] the same coagulation reagent and instrumentation as [facility]. Currently there are no coagulation studies available worldwide for children to 14 days, and no normal ranges. Performed By: #### 2 666741, 0907508, 3730104, 41680525, 66626064, 4954466, 00621527, 7136627, 8935124, 7076790 ####[facility] [address] [place] [address] U Drug Screenon 02-01-2023 U Amph Scr Negative Normal Negative [facility] Comment on above: Result Comment: Nega tive Cutoff: <1000 ng/mL Performed By: #### 1 5499219, 457111991, 3472078, 1431858 ####[facility] [address] [place] [address] U Merced Scr Negative Normal Negative [facility] Comment on above: Result Comment: Nega tive Cutoff: <200 ng/mL Performed By: #### 1 0849569, 641498533, 2265740, 4519022 ####[facility] [address] [place] [address] U Benzodia Scr Negative Normal Negative [facility] Comment on above: Result Comment: Nega tive Cutoff: <200 ng/mL Performed By: #### 1 3211453, 181180687, 1965651, 6206245 ####[facility] [address] [place] [address] U Cannab Scr Negative Normal Negative [facility] Comment on above: Result Comment: Nega tive Cutoff: <50 ng/mL Performed By: #### 1 2643526, 931042819, 0713871, 9108952 ####[facility] [address] [place] [place] [address] U Cocaine Scr Negative Normal Negative [facility] Comment on above: Result Comment: Nega tive Cutoff: <300 ng/mL Performed By: #### 1 6303782, 532559496, 6307848, 7216355 ####[facility] [address] [place] [place] [address] U Opiate Scr Negative Normal Negative [facility] Comment on above: Result Comment: Nega tive Cutoff: <300 ng/mL Performed By: #### 1 9902941, 457317948, 8240226, 6533900 ####[facility] [address] [place] [place] [address] U PCP Scr Negative Normal Negative [facility] Comment on above: Result Comment: Nega tive Cutoff: <25 ng/mL These drug screen results are to be used for medical (i.e., treatment) purposes only. Unconfirmed drug screening results must not be used for non-medical purposes (e.g., employment testing, legal testing). Performed By: #### 1 0150344, 366340817, 1053361, 1900473 ####[facility] [address] [place] [address] UA With Cult Reflexon 2022 Bacteria LM Ql (Urine sed) TRACE Normal Trace [facility] Comment on above: Performed By: #### 1 6618095, 822702011, 3017534, 1313709 ####[facility] [address] [place] [address] Bilirubin Ql (U) Negative Normal Negative [facility] Comment on above: Performed By: #### 1 6888080, 350810413, 8049705, 9569601 ####[address] [address] Clarity (U) CLEAR Normal Clear [facility] Comment on above: Performed By: #### 1 3264887, 154252027, 5389181, 9060910 ####[address] [address] Color (U) YELLOW Normal Yellow [facility] Comment on above: Performed By: #### 1 0768920, 996271917, 3969878, 5628357 ####[address] [address] Epithelial cells.squamous LM .HPF (Urine sed) [#/Area] 0-2 Normal 0-2 [facility] Comment on above: Performed By: #### 1 5284430, 339283646, 8274069, 4173708 ####[facility] [address] [place] [address] Glucose Test strip (U) [Mass/Vol] Negative Normal Negative [facility] Comment on above: Performed By: #### 1 4810521, 599134573, 2533027, 3613990 ####[facility] [address] [place] [address] Hemoglobin Ql (U) 3+ Abnormal Negative [facility] Comment on above: Performed By: #### 1 2579964, 436562568, 9643599, 8586153 ####[facility] [address] [place] [address] Ketones (U) [Mass/Vol] Negative Normal Negative [facility] Comment on above: Performed By: #### 1 9004789, 309844706, 7237041, 2063212 ####[facility] [address] [place] [address] Tatamy.plasma/Tatamy.RBC (Bld) [Mass ratio] 0-3 N ormal 0-3 [facility] Comment on above: Performed By: #### 1 7969052, 272900588, 0792740, 2364055 ####[address] [address] Nitrite Ql (U) Negative Normal Negative [facility] Comment on above: Performed By: #### 1 7861513, 901892902, 3579119, 2984850 ####[address] [address] pH (U) 7.0 [pH] Invalid Interpretation Code 5.0-9.0 [facility] Comment on above: Performed By: #### 1 9343522, 699811029, 8284914, 6775476 ####[facility] [address] [place] [address] Protein (U) [Mass/Vol] Negative Normal Negative [facility] Comment on above: Performed By: #### 1 9203332, 006406527, 1962098, 5778617 ####[facility] [address] [place] [address] Specific gravity (U) [Rel density] 1.010 Invalid Interpretation Code 1.005-1.030 [facility] Comment on above: Performed By: #### 1 9912621, 040433865, 9506690, 0994334 ####[facility] [address] [place] [address] Type of Urine collection method Clean Catch Normal [facility] Comment on above: Performed By: #### 1 6143202, 205202908, 8878098, 5402906 ####[facility] [address] [place] [address] Urobilinogen Qn (U) 0.2 {Debbie'U}/dL Normal 0.0-1.0 [facility] Comment on above: Performed By: #### 1 6157393, 411979652, 5381410, 2281893 ####[facility] [address] [address] WBC Auto Ql (U) 1+ Abnormal Negative [facility] Comment on above: Performed By: #### 1 5354662, 271045531, 2586355, 4104618 ####[facility] [address] [place] [address] WBC LM.HPF (Urine sed) [#/Area] 6-15 Abnormal 0-5 [facility] Comment on above: Performed By: #### 1 8926365, 789824234, 1833113, 4918254 ####[facility] [address] [place] [address] Uric Acidon 02-01-2023 Urate [Mass/Vol] 3.0 mg/dL Normal 2.2-7.4 [facility] Comment on above: Performed By: #### 2 715315, 5927824, 0702657, 94974567, 73677457, 8728739, 25612361, 1274557, 4500311, 1195816 ####[facility] [address] [place] [address] eGFRon 02-01-2023 GFR/1.73 sq M.predicted maris g non-blacks MDRD (S/P/Bld) [Vol rate/Area] 135 mL/min/1.73 m2 Normal >=59 [facility] Comment on above: Order Comment: Order added by Discern Expert. Result Comment: Wastewater Engineer jono kidney disease could be indicated at eGFR's of less than 60 mL/min/1.73m2. Kidney failure is indicated at less than 15 mL/min/1.73m2. Performed By: #### 2 570375, 5018720, 2226233, 19899906, 84993717, 2681642, 72773340, 7628573, 4144932, 5044368 ####[facility] [address] [place] [address] ED Note-Physicianon 12-13-19 ED Note-Physician Basic Information [...] other chart put together by the physician outpatient physical therapist assistant. 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 Normal [facility] Comment on above: Result Comment: [...] EFW (oz) 10 oz EFW by: [employer] ([employer]) [employer] Consultant 7.6 mm CM 4.4 mm 35% Nicolaides [...] Normal LVOT view: Normal 3-vessel view: Normal 3-wxjxxq-yvugdar view: Normal Heart / Thorax Situs: situs [...] know sex (more content not included)... Normal [facility] ED Note-Physicianon 10-18-19 ED Note-Physician Basic [...] the right lateral foot from electric jesus [facility] Data External documents reviewed: Not [...] day(s), # 20 tab(s), Refills(s) 0, Pharmacy: [facility]/pharmacy #[id number], 164, cm, 10/14/22 12:30:00 EDT, Height/Length Dosing, 66, kg, 10/14/22 12:30:00 EDT, Weight Dosing lidocaine, 100 mg, 10 mL, Injection, TransDermal, Once, Stop date 10/14/22 13:02:00 EDT, STAT, Start date (more content not included)... Normal [facility] Comment on above: Result Comment: Elec tronically Signed By: Lucero Harden PA-C\.br\Date and Time Signed: 10/15/22 00:18 EDT\.br\Electronically Co-Signed By: Nakul Cannon DO\.br\Date and Time Co-Signed: 10/17/22 07:09 EDT Consent for Treatmenton 09-26 Consent for Treatment [id number]:127 [facility] Discharge Instructionson Discharge Instructions [id number]:127 [facility] ED Clinical Summaryon 2022 ED Clinical Summary (Inserted Image. Claudia ble to display) [place] [id number] ED Clinical Summary Person Information Name: ANAND HERRERA [facility] Age: 22 Years : 2000 Sex: Female Language: Estonian PCP: Baljit Watts DO Marital Status: Single [...] 10/14/2022 13:55:19 10/14/2022 13:55:19 10/14/2022 13:55:19 ADDRESS: [address] [place], [place] [address]Marti [facility] [phone] PHYS DOC NOTES: MEDICAL INFORMATION: Prescriptions Given: Medications to Continue Taking That Have Changed [facility]/pharmacy #[id number], [address] [place] [id number], [phone] START: amoxicillin (amoxicillin 875 mg Tab) 1 [...] Instructions: Sutures, Azalia, or Adhesive Wound Closure, Mjis-qj-Inaz Follow up: With: Address: When: Baljit Montenegro, [facility] [address] [place] [address] Business (1) In 3 days 10/17/2022 DIAGNOSIS: 1:Laceration of right foot Normal [facility] ED Patient Education Noteon 10-14-2022 ED Patient Education Note Dermatology Sutures, [place], or Adhesive Wound Closure Doctors use stitches [...] the edges of the wound together. ? Crary the glue onto your skin. You may [...] this with as many azalia as needed. Croydon are faster to use than sutures, and they cause less reaction from your skin. Azalia need to be taken out using a tool that bends the azalia away from your skin. Follow these instructions at home: Medicines ? Take zlcl-jti-ocduchd and prescription medicines only as told by [...] cannot use soap and water, use hand strategic alliances manager. ? Do not try to take off [...] not i (more content not included)... Normal [facility] ED Patient Summaryon 023 ED Patient Summary [place] [id number] Patient Discharge Instructions Person Information Name: ANAND HERRERA Age: 22 Years Arrival Date: 10/14/2022 12:18:27 Discharge Diagnosis: 1:Laceration of right foot Primary Care Physician: Baljit Watts DO Provider Information Primary Provider: Nakul Cannon DO Advanced Sandblaster Paint Sprayer:None The exam and treatment you received in the Emergency Department were for an urgent problem and are not intended as complete care. It is important that you follow up with a doctor, nurse practitioner, or physician?s outpatient physical therapist assistant for ongoing care. If your symptoms [...] With: Address: When: Baljit Montenegro, [address] [facility] [place] [address] [facility] (1) In 3 days 10/17/2022 In the event that this physician does not participate in your insurance network, please consult with your insurance company to find a nearby participating provider. Patient Education Materials: Sutures, Azalia, or Adhesive Wound Closure, Phdn-gn-Cuxc A MESSAGE TO ALL PATIENTS REGARDING OPIOIDS PRESCRIPTION OPIOIDS: WHAT YOU NEED TO KNOW Prescription opioids can be used to help relieve godwstay-fy-emeagl pain and are often prescribed following a [...] be struggling with addiction, tell your health long term care phlebotomist and ask for guidance or call [facility] National Helpline at 0-771-7 (more content not included)... Normal [facility] OB NT (Nuchal Translucency)o n 09-26-2022 [...] gestational sac with a live fetus - [place] rump length is consistent with given OTF [...] Extended Nasal bone: present Anatomy Heart: Normal [place] and [place]. Stomach: Visible, with correct situs. [...] Electronically signed by: JESS FELDMAN MD Normal [facility] HEP B SURFACE ANTIGEN SCREEN on 09-05-2022 HBsAg Screen Negative Normal Negative [facility] Comment on above: Performed By: #### H BSANS #### [facility] [address] [place] [address] Dr. Stoney Rodriguez HEPATITIS C VIRUS AB W/ REFL EX QUANTon 09-05-2022 HCV AB Non-Reactive Normal Non Reactive [facility] Comment on above: Performed By: #### H CVPCRR #### [facility] [address] [place] [address] Dr. Stoney Rodriguez Interpretation: Comment Normal [facility] Comment on above: Result Comment: Not infected with HCV unless early or acute infection is suspected (which may be delayed in an immunocompromised individual), or other evidence exists to indicate HCV infection. Performed By: #### H CVPCRR #### [facility] [address] [place] [address] Dr. Stoney Rodriguez HIV 1 AND 2 WITH REFLEXon HIV Screen 4th Generation wRfx Non-Reactive Normal Non Reactive [facility] Comment on above: Result Comment: HIV Negative HIV-1/HIV-2 antibodies and HIV-1 p24 antigen were NOT detected. There is no laboratory evidence of HIV infection. Performed By: #### T NS #### [facility] [address] [place] [address] Dr. Stoney Rodriguez RPR QUANTon 09-05-2022 Rapid Plasma Reagin, Quant Non-Reactive Normal NonRea< 1:1 [facility] Comment on above: Result Comment: Plea se Note: This test does not meet current guidelines for screening and diagnosis of syphilis. This test is intended for following treatment response in patients being treated for syphilis infection. To screen for syphilis infection, a reflex cascade that includes both RPR and a treponema-specific assay should be utilized, such as Treponema pallidum (Syphilis) Screening [place] (303670) or Rapid Plasma Reagin (RPR) Test With Reflex to Quantitative RPR and Confirmatory Treponema pallidum Antibodies (722398). Performed By: #### R PRQ #### [facility] [address] [place] [address] Dr. Stoney Rodriguez RUBELLA AB IGGon 09-05-2022 Rubella Antibodies, IgG 11.40 index Normal Immune >0.9 9 [facility] Comment on above: Result Comment: Non- immune <0.90 Equivocal 0.90 - 0.99 Immune >0.99 Performed By: #### R UBIGG #### [facility] [address] [place] [address] Dr. Stoney Rodriguez BOX TEST SENT OUTon 09-05-19 SENT TO REF LAB 09/04/22 Normal [facility] Comment on above: Performed By: #### B OX #### [facility] [address] [place] [address] Dr. Stoney Rodriguez CBC AUTO DIFFon 09-04-2022 BASO # 0.0 103/ul Normal 0.0-0.1 [facility] Comment on above: Performed By: #### C BC #### [facility] [address] [place] [address] Dr. Stoney Rodriguez Basophils/100 WBC (Bld) 0.4 % Normal 0.2-2.0 [facility] Comment on above: Performed By: #### C BC #### [facility] [address] [place] [address] Dr. Stoney Rodriguez EO # 0.1 103/ul Normal 0.0-0.7 [facility] Comment on above: Performed By: #### C BC #### [facility] [address] [place] [address] Dr. Stoney Rodriguez Eosinophils/100 WBC (Bld) 0.7 % Critically low 0.9-7. 0 [facility] Comment on above: Performed By: #### C BC #### [facility] [address] [place] [address] Dr. Stoney Rodriguez Erythrocyte distribution wid th (RBC) [Ratio] 14.5 % Normal 11.0-15.0 [facility] Comment on above: Performed By: #### C BC #### [facility] [address] [address] [address] Stoney Rodriguez Hematocrit (Bld) [Volume fraction] 36.7 % Normal 3 6.0-48.0 [facility] Comment on above: Performed By: #### C BC #### [facility] [address] [address] [address] Stoney Rodriguez Hemoglobin (Bld) [Mass/Vol] 11.9 g/dL Critically low 12.0 -16.0 [facility] Comment on above: Performed By: #### C BC #### [facility] [address] [place] [address] Dr. Stoney Rodriguez IG # 0.03 10e3/ul Normal 0.00-0.03 [facility] Comment on above: Performed By: #### C BC #### [facility] [address] [place] [address] Dr. Stoney Rodriguez IG % 0.4 % Normal 0.0-0.5 [facility] Comment on above: Performed By: #### C BC #### [facility] [address] [place] [address] Dr. Stoney Rodriguez LYMPH # 2.0 103/ul Normal 1.2-3.8 [facility] Comment on above: Performed By: #### C BC #### [facility] [address] [place] [address] Dr. Stoney Rodriguez Lymphocytes/100 WBC (Bld) 23.3 % Normal 20.5-60.0 [facility] Comment on above: Performed By: #### C BC #### [facility] [address] [place] [address] Dr. Stoney Rordiguez MANUAL DIFF REQ NO Normal [facility] Comment on above: Performed By: #### C BC #### [facility] [address] [place] [address] Dr. Stoney Rodriguez MCH (RBC) [Entitic mass] 28.7 pg Normal 26.7-34.0 [facility] Comment on above: Performed By: #### C BC #### [facility] [address] [place] [address] Dr. Stoney Rodriguez MCHC (RBC) [Mass/Vol] 32.4 g/dL Normal 29.9-35.2 [facility] Comment on above: Performed By: #### C BC #### [facility] [address] [place] [address] Dr. Stoney Rodriguez MCV (RBC) [Entitic vol] 88.6 fL Normal 81.0-99.0 [facility] Comment on above: Performed By: #### C BC #### [facility] [address] [place] [address] Dr. Stoney Rodriguez MONO # 0.5 103/ul Normal 0.3-0.8 [facility] Comment on above: Performed By: #### C BC #### [facility] [address] [place] [address] Dr. Stoney Rodriguez Monocytes/100 WBC (Bld) 6.2 % Normal 1.7-12.0 [facility] Comment on above: Performed By: #### C BC #### [facility] [address] [place] [address] Dr. Stoney Rodriguez NEUT # 5.9 103/ul Normal 1.4-6.5 [facility] Comment on above: Performed By: #### C BC #### [facility] [address] [place] [address] Dr. Stoney Rodriguez Neutrophils/100 WBC (Bld) 69.0 % Normal 43.0-75.0 [facility] Comment on above: Performed By: #### C BC #### [facility] [address] [place] [address] Dr. Stoney Rodriguez Platelet mean volume (Bld) [Entitic vol] 9.7 fL Normal 9.5-13.5 [facility] Comment on above: Performed By: #### C BC #### [facility] [address] [place] [address] Dr. Stoney Rodriguez PLT 378 103/ul Normal 150-450 [facility] Comment on above: Performed By: #### C BC #### [facility] [address] [address] [address] Stoney Rodriguez RBC 4.14 106/ul Critically low 4.20-5.[address] [facility] Comment on above: Performed By: #### C BC #### [facility] [address] [address] [address] Stoney Rodriguez WBC 8.5 103/ul Normal 4.0-11.0 [facility] Comment on above: Performed By: #### C BC #### [facility] [address] [place] [address] Dr. Stoney Rodriguez CULTURE URINEon 09-04-2022 CULTURE URINE Culture Observations : NO GROWTH. Normal [facility] l Comment on above: Performed By: #### U RCX #### [facility] [address] [place] [address] Dr. Stoney Rodriguez GLYCOHEMOGLOBIN A1Con 2022 ADA RECOMMENDATION SEE BELOW Normal [facility] Comment on above: Result Comment: ADA RECOMMENDED LIMIT 4.0 - 6.0 ADA THERAPEUTIC TARGET < 7.0 ACTION SUGGESTED > 7.0 Performed By: #### A 1C #### [facility] [address] [place] [address] Dr. Stoney Rodriguez Glucose [Mass/Vol] 94 mg/dL Normal [facility] Comment on above: Performed By: #### A 1C #### [facility] [address] [place] [address] Dr. Stoney Rodriguez HbA1c (Bld) [Mass fraction] 4.9 % Normal 4.5-6.2 [facility] Comment on above: Performed By: #### A 1C #### [facility] [address] [place] [address] Dr. Stoney Rodriguez TSHon 09-04-2022 TSH 0.653 uIU/mL Normal 0.358-3.740 [facility] Comment on above: Performed By: #### T SH #### [facility] [address] [place] [address] Dr. Stoney Rodriguez TYPE AND SCREENon 09-04-2022 TYPE AND SCREEN Negative Normal [facility] Comment on above: Performed By: #### T NS #### [facility] [address] [place] [address] Dr. Stoney Rodriguez US PREG TVon 08-14-2022 [...] BILLIE SMITH Date: 2022-08-14 16:07 Normal [facility] CHEMISTRYOrdered By: Ida Mcfarland on 12-19-2021 Anion gap [Moles/Vol] 11 mmol/L Normal 6 - 16 mEq/L [facility] Remisol Calcium [Mass/Vol] 8.9 mg/dL Normal 8.9 [...] 7.6 E9/L Normal 4.0 - 11.0 E9/L [facility] HemeAutoSS SEROLOGYOrdered By: Ida Mcfarland on 12-19-2021 Beta hCG Ql Negative (12/19/21 2:12 AM) Normal [facility] Man Sero CULTURE URINEon 04-28-2020 CULTURE URINE [...] <= 1 S Amikacin(JAI) 4 S Normal [facility] Comment on above: Performed By: #### C /UR ####[place] [address] [place] [address] [place] [address] [place], [place] [id number] Culture, Urineon 04-28-2020 Bacteria identified Cx Nom (U) 10,000-50,000 CFU/ml [facility], [place] Bacteria identified Cx Nom (U) Normal urogenital praneeth present. Abnormal [facility] [place], [place] Bacteria identified Cx Nom (U) Escherichia coli Abnormal [facility] [employer] [place], [place] Interpretation and review of laboratory results Abnormal [facility], [place] Test Performed by [address] [address] [facility] [place], [place] Hemoglobinon 04-27-2020 Hemoglobin (Bld) [Mass/Vol] 7.1 g/dL Low 11.7-16. 0 [facility] Comment on above: Performed By: #### H EMGB #### [address] [address] Hemoglobin (Bld) [Mass/Vol] 7.1 g/dL Low 11.7 - 16 g/dL [place], [place] Interpretation and review of laboratory results Abnormal [place], [place] Test Performed by [facility], [address] [place] [address] [place], [place] Group B Strep Screen PCRon 1 [...] Methodology - Real Time PCR (Cepheid) Normal [facility] Comment on above: Performed By: #### G [facility] ####[address] [address] Group B Strep, PCRon 020 Group B Strep Screen PCR NEGATIVE Expected Result: Negative CDC guidelines for prevention of Group B Strep disease recommends collection of both vaginal and rectal specimens for optimal recovery of GBS. Methodology - Real Time PCR (Cepheid) [place], [place] Test Performed by [address] [address] [place], [place] Op Noteon 04-26-2020 Op Note PATIENT: TRAVIS HERRERA [facility] ADMISSION DATE: 04/25/2020 SURGERY DATE: 04/26/2020 [...] She also did have a TAP block. Sales Promotion Director: Dr. Benjamin. Replacement: 1500 cc of crystalloid. [...] 1500 cc of crystalloid. Diskriter Job ID: [id number] Ozzy Chowdhury MD DOD:04/26/2020 07:56 A JAKUB/kimmy DOT:04/26/2020 10:55 A Job Number: [id number] Document Number: [id number] cc: [place] [address] [place] [address]. Pending sale to [facility] [address] Fariha Matos, [address] Pending sale to [facility] [id number] Normal [facility] C. Trachomatis / N. Gonorrho eae, DNA Probeon 04-25-2020 C. trachomatis DNA ARCHANA+probe Ql (Genital specimen) NOT Detected Chlamydia trachomatis Nucleic Acid NOT Detected by DNA Amplification using the Cepheid System. Culture is the only recommended test in medical-legal cases such as suspected child abuse or molestation. [facility], [place] N. gonorrhoeae DNA ARCHANA+probe Ql (Unsp spec) NOT Detected Neisseria gonorrhoeae Nucleic Acid NOT Detected by DNA Amplification using the Cepheid System. Culture is the only recommended test in medical-legal cases such as suspected child abuse or molestation. [place], [place] Test Performed by [facility], [address] [place] [address] [place], [place] CBCon 04-25-2020 Erythrocyte distribution width (RBC) [Ratio] 18.2 % High 11.5 - 14.5 % [place], [place] Hematocrit (Bld) [Volume fraction] 30.6 % Low 35 - 47 % [place], [place] Hemoglobin (Bld) [Mass/Vol] 9.7 g/dL Low 11.7 - 16 g/dL [place], [place] Interpretation and review of laboratory results Abnormal [place], [place] MCH (RBC) [Entitic mass] 26.2 pg 26 - 34 pg [place], [place] MCHC (RBC) [Mass/Vol] 31.9 % Low 32 - 36 % [place], [place] MCV (RBC) [Entitic vol] 82.2 fL 79 - 98 fL [place], [place] Platelet mean volume (Bld) [Entitic vol] 8.1 fL 7.4 - 10.4 fL [place], [place] Platelets (Bld) [#/Vol] 249 10*3/uL 140 - 440 10*3/uL [place], [place] RBC (Bld) [#/Vol] 3.72 10*6/uL Low 3.8 - 5.2 10*6/uL [place], [place] WBC (Bld) [#/Vol] 13.3 10*3/uL High 3.6 - 10.7 10*3/uL [place], [place] Test Performed by [facility], [address] [place] [address] [place], [place] CREATININE, RANDOM URINEon 1 Creatinine (U) [Mass/Vol] 66.8 mg/dL No Range [place], [place] Chlamydia and GC PCR Panelon 04-25-2020 Chlamydia and GC PCR Panel Chlamydia tra chomatis PCR --> Status: F NOT Detected Chlamydia trachomatis Nucleic Acid NOT Detected by DNA Amplification using the Aktanaid System. Culture is the only recommended test [...] NOT Detected by DNA Amplification using the Aktanaid System. Culture is the only recommended test in medical-legal cases such as suspected child abuse or molestation. Neisseria gonorrhoeae Nucleic Acid NOT Detected by DNA Amplification using the Aktanaid System. Culture is the only recommended test in medical-legal cases such as suspected child abuse or molestation. Normal [facility] Comment on above: Performed By: #### C TNGP ####[facility] [place], [place] Comp Metabolic Panelon 04-25 Calcium [Mass/Vol] 8.5 mg/dL Normal 8.4-10.4 [facility] Comment on above: Performed By: #### P T/AP, CMP3, HEMOG, FIBGN #### [facility] [address] [place], [place] Glucose [Mass/Vol] 97 mg/dL Normal 70-100 [facility] Comment on above: Performed By: #### P T/AP, CMP3, HEMOG, FIBGN #### [facility] [address] [place], [place] ALP [Catalytic activity/Vol] 114 U/L Normal 38-126 [facility] Comment on above: Result Comment: Slig htly hemolysed, interpret with caution. Performed By: #### P T/AP, CMP3, HEMOG, FIBGN #### [facility] [address] [place], [place] ALT [Catalytic activity/Vol] 19 U/L Normal 0-34 [facility] Comment on above: Result Comment: The ALT test is performed by an updated assay method. Please note that the reference intervals have been changed and are now sex specific. Performed By: #### P T/AP, CMP3, HEMOG, FIBGN #### [facility] [address] [place], [place] Anion Gap 6 Normal [facility] Comment on above: Performed By: #### P T/AP, CMP3, HEMOG, FIBGN #### [facility] [address] [place], [place] AST [Catalytic activity/Vol] 39 U/L Normal 15-46 [facility] Comment on above: Result Comment: Slbridger htly hemolysed, interpret with caution. Performed By: #### P T/AP, CMP3, HEMOG, FIBGN #### [facility] [address] [place], [place] Bilirubin [Mass/Vol] 0.5 mg/dL Normal 0.2-1.3 [facility] Comment on above: Performed By: #### P T/AP, CMP3, HEMOG, FIBGN #### [place] [address] [address] [place], [place] CO2 [Moles/Vol] 20 mmol/L Low 22-30 [facility] Comment on above: Performed By: #### P T/AP, CMP3, HEMOG, FIBGN #### [facility] [address] [place], [place] Creatinine [Mass/Vol] 0.63 mg/dL Normal 0.52-1.25 [facility] Comment on above: Performed By: #### P T/AP, CMP3, HEMOG, FIBGN #### [facility] [address] [place], [place] eGFR OTHER > 90.0 Normal >60 [facility] Comment on above: Result Comment: KDIG O [...] #### P T/AP, CMP3, HEMOG, FIBGN #### [place] [address] [address] [place], [place] GFR/1.73 sq M.predicted maris g blacks MDRD (S/P/Bld) [Vol rate/Area] mL/min/{1.73_m2} Normal >60 [facility] Comment on above: Performed By: #### P T/AP, CMP3, HEMOG, FIBGN #### [place] [address] [address] [place], [place] Protein [Mass/Vol] 6.9 g/dL Normal 6.3-8.2 [facility] Comment on above: Performed By: #### P T/AP, CMP3, HEMOG, FIBGN #### [place] [address] [place], [place] Urea nitrogen [Mass/Vol] 14 mg/dL Normal 7-20 [facility] Comment on above: Performed By: #### P T/AP, CMP3, HEMOG, FIBGN #### [place] [address] [place], [place] Potassium [Moles/Vol] 4.3 mmol/L Normal 3.5-5.1 [facility] Comment on above: Result Comment: Slig htly hemolysed, interpret with caution. Performed By: #### P T/AP, CMP3, HEMOG, FIBGN #### [place] [address] [address] [place], [place] Sodium [Moles/Vol] 134 mmol/L Low 135-145 [facility] Comment on above: Performed By: #### P T/AP, CMP3, HEMOG, FIBGN #### [place] [address] [address] [place], [place] Albumin [Mass/Vol] 3.4 g/dL Low 3.5-5.0 [facility] Comment on above: Performed By: #### P T/AP, CMP3, HEMOG, FIBGN #### [place] [address] [place] [address] Chloride [Moles/Vol] 107 mmol/L Normal 98-107 [facility] Comment on above: Performed By: #### P T/AP, CMP3, HEMOG, FIBGN #### [facility] [address] [place] [address] Comprehensive Metabolic Pane parag 04-25-2020 Albumin [Mass/Vol] 3.4 g/dL Low 3.5 - 5 g/dL [place], [place] ALP [Catalytic activity/Vol] 114 U/L 38 - 12 6 U/L [place], [place] Comment on above: Slightly hemolysed, interpret with caution. ALT [Catalytic activity/Vol] 19 U/L 0 - 34 U/L [place], [place] Comment on above: The ALT test is perf ormed by an updated assay method. Please note that the reference intervals have been changed and are now sex specific. Anion gap [Moles/Vol] 6 mmol/L [place], [place] AST [Catalytic activity/Vol] 39 U/L 15 - 46 U/L [place] Comment on above: Slightly hemolysed, interpret with caution. Bilirubin Ql (U) 0.5 mg/dL 0.2 - 1.3 mg/dL [place], [place] Calcium [Mass/Vol] 8.5 mg/dL 8.4 - 10.4 mg/dL [place], [place] Chloride [Moles/Vol] 107 mmol/L 98 - 107 mmol/L [place], [place] CO2 [Moles/Vol] 20 mmol/L Low 22 - 30 mmol/L [place] Creatinine [Mass/Vol] 0.63 mg/dL 0.52 - 1.25 mg /dL [place], [place] EGFR IF NonAfrican Indian >90.0 >60 mL/m in [place], [place] Comment on above: KDIGO guidelines pro [...] MDRD (S/P/Bld) [Vol rate/Area] mL/min/{1.73_m2} >60 mL/min [place], [place] Glucose [Mass/Vol] 97 mg/dL 70 - 100 mg/dL [place], [place] Interpretation and review of laboratory results Abnormal [place], [place] Potassium [Moles/Vol] 4.3 mmol/L 3.5 - 5.1 mmol /L [place], [place] Comment on above: Slightly hemolysed, interpret with caution. Protein [Mass/Vol] 6.9 g/dL 6.3 - 8.2 g/dL [place], [place] Sodium [Moles/Vol] 134 mmol/L Low 135 - 145 mmol/L [place], [place] Urea nitrogen [Mass/Vol] 14 mg/dL 7 - 20 mg/d L [place], [place] Creatinine, Ur Randomon 03-29 Creatinine, Ur Random 66.8 mg/dL Normal No Range [facility] Comment on above: Performed By: #### C RTUR, TPUR, MAT #### [facility] [address] [place] [address] Fibrinogenon 04-25-2020 Fibrinogen 390 mg/dL Normal [address] [place], [place] Comment on above: Performed By: #### P T/AP, CMP3, HEMOG, FIBGN #### [facility] [address] [place] [address] Hemogramon 04-25-2020 Erythrocyte distribution wid th (RBC) [Ratio] 18.2 % High 11.5-14.5 [facility] Comment on above: Performed By: #### P T/AP, CMP3, HEMOG, FIBGN #### [facility] [address] [place], [place] Hematocrit (Bld) [Volume fraction] 30.6 % Low 3 5.0-47.0 [facility] Comment on above: Performed By: #### P T/AP, CMP3, HEMOG, FIBGN #### [place] [address] [place], [place] Hemoglobin (Bld) [Mass/Vol] 9.7 g/dL Low 11.7-16. 0 [facility] Comment on above: Performed By: #### P T/AP, CMP3, HEMOG, FIBGN #### [place] [address] [place], [place] MCH (RBC) [Entitic mass] 26.2 pg Normal 26.0-34.0 [facility] Comment on above: Performed By: #### P T/AP, CMP3, HEMOG, FIBGN #### [place] [address] [place], [place] MCHC 31.9 % Low 32.0-36.0 [facility] ystem Comment on above: Performed By: #### P T/AP, CMP3, HEMOG, FIBGN #### [place] [address] [place], [place] MCV (RBC) [Entitic vol] 82.2 fL Normal 79.0-98.0 [facility] Comment on above: Performed By: #### P T/AP, CMP3, HEMOG, FIBGN #### [place] [address] [place], [place] Platelet mean volume (Bld) [Entitic vol] 8.1 fL Normal 7.4-10.4 [facility] Comment on above: Performed By: #### P T/AP, CMP3, HEMOG, FIBGN #### [address] Platelets (Bld) [#/Vol] 249 10*3/uL Normal 140-440 [facility] Comment on above: Performed By: #### P T/AP, CMP3, HEMOG, FIBGN #### [facility] [address] [place], [place] RBC (Bld) [#/Vol] 3.72 10*6/uL Low 3.80-5.20 [facility] Comment on above: Performed By: #### P T/AP, CMP3, HEMOG, FIBGN #### [place] [address] [place], [place] WBC (Bld) [#/Vol] 13.3 10*3/uL High 3.6-10.7 [facility] Comment on above: Performed By: #### P T/AP, CMP3, HEMOG, FIBGN #### [place] [address] [place], [place] Medication Assisted Treatmen t Panelon 04-25-2020 Fentanyl Negative Normal [facility] Comment on above: Performed By: #### C RTUR, TPUR, MAT #### [place] [address] [place], [place] Amphetamines Ql (U) Negative Normal [facility] Comment on above: Performed By: #### C RTUR, TPUR, MAT #### [place] [address] [place], [place] Barbiturates Negative Normal [facility] Comment on above: Performed By: #### C RTUR, TPUR, MAT #### [place] [address] [place], [place] Benzodiazepines Ql (U) Negative Normal [facility] Comment on above: Performed By: #### C RTUR, TPUR, MAT #### [place] [address] [place], [place] Buprenorphine Screen Negative Normal [facility] Comment on above: Performed By: #### C RTUR, TPUR, MAT #### [place] [address] [place], [place] Cocaine Ql (U) Negative Normal [facility] Comment on above: Performed By: #### C RTUR, TPUR, MAT #### [place] [address] [place], [place] Ethanol [Mass/Vol] Negative Normal [facility] Comment on above: Performed By: #### C RTUR, TPUR, MAT #### [facility] [address] [place], [place] Methadone Ql (U) Negative Normal [facility] Comment on above: Performed By: #### C RTUR, TPUR, MAT #### [facility] [address] [place], [place] Opiates Ql (U) Negative Normal [facility] Comment on above: Performed By: #### C RTUR, TPUR, MAT #### [facility] [address] [place], [place] Oxycodone/Oxymorphone Negative Normal [facility] Comment on above: Performed By: #### C RTUR, TPUR, MAT #### [facility] [address] [place], [place] PCP Negative Normal [facility] yste Comment on above: Performed By: #### C RTUR, TPUR, MAT #### [facility] [address] [place], [place] THC Negative Normal [facility] y[facility] Comment on above: Performed By: #### C RTUR, TPUR, MAT #### [facility] [address] [place], [place] Amphetamines Ql (U) Negative [facility] [place], [place] Benzodiazepines Ql (U) Negative [facility] [place], [place] Cocaine Ql (U) Negative [facility] [place], [place] Ethanol [Mass/Vol] Negative [facility] [place] Methadone Ql (U) Negative [facility] [place] Opiates Ql (U) Negative [facility] [place], [place] Sodium [Moles/Vol] See Below [facility] [place] Comment on above: The expected [...] performed using non-forensic procedures. Test Performed by [facility], [address] [place] [address] MAT Panel Test Comment See Below Normal [facility] Comment on above: Result Comment: The [...] By: #### C RTUR, TPUR, MAT #### [place] [address] [place] [address] Metabolic Panelon 04-25-2020 Sodium [Moles/Vol] Negative [place], [place] Otheron 04-25-2020 Test Performed by [facility], [facility] [address] Test Performed by [place] [address] PROTEIN, URINE, RANDOMon Interpretation and review of laboratory results Abnormal [place], [place] Protein (U) [Mass/Vol] 88 mg/dL High No Range [place], [place] PROTIME/INR & PTTon 04-25-20 20 INR Coag (PPP) [Relative time] 0.9 {INR} [place], [place] Comment on above: Recommended Anticoag ulant [...] Ur Random 88 mg/dL High No Range [facility] Comment on above: Performed By: #### C RTUR, TPUR, MAT #### [address] [place], [place] Protime AND APTTon 0 aPTT Coag (Bld) [Time] 21.4 s Normal 20.0-30.5 [place], [place] Comment on above: NOTE: The therapeuti c time for Heparin anticoagulation, based on Xa activity inhibition, is an APTT of 46-80 seconds. Result Comment: NOTE : The therapeutic time for Heparin anticoagulation, based on Xa activity inhibition, is an APTT of 46-80 seconds. Performed By: #### P T/AP, CMP3, HEMOG, FIBGN #### [facility] [employer] [address] INR 0.9 Normal 0.9-1.1 [facility] ystem Comment on above: Result Comment: [...] #### P T/AP, CMP3, HEMOG, FIBGN #### [facility] [employer] [place] [address] [place] [address] PT Coag (PPP) [Time] 9.6 s Normal 9.0-12.0 [facility], [place] Comment on above: . Result Comment: . Performed By: #### P T/AP, CMP3, HEMOG, FIBGN #### [facility] [address] [place] [address] TS GELon 04-25-2020 TS GEL ABO Group: O Rh, Gel: POS Antibody Screen Gel: NEG Normal [facility] Comment on above: Performed By: #### T SGL ####[facility] [employer] [facility] TYPE AND SCREENon 04-25-2020 Sodium [Moles/Vol] Negative [facility], [place] Sodium [Moles/Vol] O [facility], [place] Sodium [Moles/Vol] Positive [facility], [place] Test Performed by [facility], [address] [place] [address] [facility], [place] ABO, External Resulton 04-10 ABO, External Result O [facility], [place] C. Trachomatis, External Res ulton 04-10-2020 C. Trachomatis, External Result Negative [facility], [place] HIV, External Resulton 04-10 HIV, External Result Negative [facility], [place] Hepatitis B, External Result on 04-10-2020 Hep B, External Result Negative [facility], [place] N. Gonorrhoeae, External Res ulton 04-10-2020 N. Gonorrhoeae, External Result Negative [facility], [place] Otheron 04-10-2020 Verified with Fer Alejo rn [facility], [place] RPR, External Labon 04-10-20 20 RPR, External Result Negative [facility], [place] Rh Factor, External Resulton 04-10-2020 Rh Factor, External Result Positive [facility], [place] Rubella Titer, External Resu lton 04-10-2020 Rubella Titer, External Result IMMUNE [facility], [place] Progress Noteon 03-08-2020 [employer] Authentication Interface Message Text Pediatric Cardiology Echocardiogra [...] in visit on 03/08/20 Echo New Narrative [facility] [place] [address] [email or web address] Echocardiogram Report M-mode, complete 2D, complete spectral Doppler, and color Doppler PATIENT: Anand Herrera STUDY DATE/TIME: Mar 08 2020 12:04PM HEIGHT: : 2000 WEIGHT: AGE: 19yr BSA/BMI: / GENDER: F BP: 137 / 64 LOCATION: Heart [facility] REFERRING PHYSICIAN: Ozzy Martinez Md ORDERING PROVIDER: [...] STUDY AND PROCEDURE DATA: Procedure Description: New ([id number]) . Study status: Routine. Location: lab. Procedure: [...] a patent foramen ovale. There is a xraet-hq-oicp shunt. Left atrium - The atrium is [...] of all we discussed. Hannah Guevara MD [facility] Juice Standardizer [facility] Housekeeper of Pediatrics [facility] Counseling and coordination of care for this patient was greater than 35minutes which is more than 50% of the total time of 60 minutes spent on the encounter. Normal [facility] [employer] Authentication Interface Message Text Pediatric Hand Surgery [...] to requesting provider. 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 Consent to share information with [facility] team, OB and wafer fabrication technician signed. Pt plans to deliver at [facility] with Dr Martinez. Book Packer is not yet decided. female fetus- name is [place] Method of feeding: breast and bottle Ultrasound findings today: See report in procedures for details. Reinforced continued OB care with Dr Martinez- next appointment- next week Normal [facility] [employer] Floor Authentication Interface Message Text [facility] genetic counseling note Consultation has been [...] Herrera also met with Jerilyn Agee, Clinical Lepidopterist from our [facility]. Jerilyn will continue to help coordinate and care. consultation with Pediatric Orthopedic Surgery in the Hand and Upper Extremity Clinic is being arranged. follow up with Pediatric Orthopedic Surgery should be within one month of age or otherwise as per their recommendations. Call [phone] to schedule. Consultation with Medical Genetics should be considered in the period, especially if additional concerns are noted after delivery. The wafer fabrication technician or patient can request this consultation. Call [phone] to schedule. Indicate that you were followed by the [facility] when scheduling. Diagnosis: DIAGNOSIS. 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 Plan: 1. Continued obstetrical care with her primary rubber roller grinder operator is recommended. 2. Follow up q4 weeks to evaluate biometric parameters and anatomy. These are planned with the [facility]/your office. 3. surveillance as follows: weekly BPP beginning at 32 weeks. 4. consultation with Pediatric Orthopedic Surgery in the Hand and Upper Extremity Clinic is being arranged. 5. Delivery is appropriate at your local institution/already planned in [place] with follow up as indicated. 6. Mode and timing of delivery are based on the usual obstetrical indications. 7. Anticipate normal nursery. OR Neonatology/Book Packer to be present at delivery to evaluate and determine nursery placement. 8. follow up with Pediatric Orthopedic Surgery should be within one month of age or otherwise as per their recommendations. Call [phone] to schedule. 9. Consultation with Medical Genetics should be considered in the period, especially if additional concerns are noted after delivery. The wafer fabrication technician or patient can request this consultation. Call [phone] to schedule. Indicate that you were followed by the [facility] when scheduling. 9. Other follow up as clinically indicated. Her complete [facility] Plan of Care summary will be distributed. The total patient time of the visit was 30 minutes, of which greater than 50% of the time was spent counseling and coordinating care. Junior Kat MD Normal [facility] Progress Noteon 02-15-2020 [employer] Authentication Interface Message Text Dating for consult Normal [facility] Vital Signs Date Time Vital Sign Value Performing Clinician Facility 10-14-2022 12:27-0400 Body temperature 98.24 [degF] Nakul Cannon [facility] 10-14-2022 12:27-0400 Diastolic blood pressure 64 mm[Hg] Nakul Cannon [facility] 10-14-2022 12:27-0400 Heart rate 107 /min Nakul Cannon [facility] 10-14-2022 12:27-0400 Respiratory rate 18 /min Nakul Cannon [facility] 10-14-2022 12:27-0400 SaO2% (BldA) [Mass fraction] 100 % Nakul Cannon [facility] 10-14-2022 12:27-0400 Systolic blood pressure 113 mm[Hg] Nakul Cannon [facility] 12-19-2021 03:42-0400 Diastolic blood pressure 64 mm[Hg] Anthony Martinez [facility] 12-19-2021 03:42-0400 Heart rate 78 /min Anthony Michelle [facility] 12-19-2021 03:42-0400 Hourly Rounding Anthony Martinez [facility] 12-19-2021 03:42-0400 Nursing Progress Note Reason Other: Pt mediciated per orders. Family x1 cartside. Denies any needs at this time. Anthony Michelle [facility] 12-19-2021 03:42-0400 Respiratory rate 16 /min Anthony Michelle [facility] 12-19-2021 03:42-0400 SaO2% (BldA) [Mass fraction] 100 % Anthony Michelle [facility] 12-19-2021 03:42-0400 Systolic blood pressure 116 mm[Hg] Anthony Michelle [facility] 12-19-2021 02:40-0400 Diastolic blood pressure 70 mm[Hg] Anthony Michelle [facility] 12-19-2021 02:40-0400 Heart rate 82 /min Anthony Michelle [facility] 12-19-2021 02:40-0400 Hourly Rounding Anthony Michelle [facility] 12-19-2021 02:40-0400 Nursing Progress Note Reason Other: Pt ambulatory to bathroom and back to cart with a steady gait. Anthony Michelle [facility] 12-19-2021 02:40-0400 Respiratory rate 16 /min Anthony Michelle [facility] 12-19-2021 02:40-0400 SaO2% (BldA) [Mass fraction] 100 % Anthony Michelle [facility] 12-19-2021 02:40-0400 Systolic blood pressure 122 mm[Hg] Anthony Michelle [facility] 12-19-2021 01:53-0400 Body temperature 98.06 [degF] Anthony Michelle [facility] 12-19-2021 01:53-0400 Diastolic blood pressure 84 mm[Hg] Anthony Michelle [facility] 12-19-2021 01:53-0400 Heart rate 89 /min Anthony Michelle [facility] 12-19-2021 01:53-0400 Respiratory rate 16 /min Anthony Michelle [facility] 12-19-2021 01:53-0400 SaO2% (BldA) [Mass fraction] 100 % Anthony Michelle [facility] 12-19-2021 01:53-0400 Systolic blood pressure 149 mm[Hg] Anthony Michelle [facility] 11-01-2021 08:09-0400 Body temperature 98.42 [degF] Keanu Kamara [facility] 11-01-2021 08:09-0400 Diastolic blood pressure 90 mm[Hg] Keanu Kamara [facility] 11-01-2021 08:09-0400 Heart rate 94 /min Keanu Asad [facility] 11-01-2021 08:09-0400 Respiratory rate 18 /min Keanu Kamara [facility] 11-01-2021 08:09-0400 SaO2% (BldA) [Mass fraction] 98 % Keanu Asad [facility] 11-01-2021 08:09-0400 Systolic blood pressure 145 mm[Hg] Keanu Asad [facility] 09-18-2021 09:59-0400 Body temperature 98.06 [degF] [facility] 09-18-2021 09:59-0400 Diastolic blood pressure 87 mm[Hg] [facility] 09-18-2021 09:59-0400 Heart rate 90 /min [facility] 09-18-2021 09:59-0400 Respiratory rate 16 /min [facility] 09-18-2021 09:59-0400 SaO2% (BldA) [Mass fraction] 100 % [facility] 09-18-2021 09:59-0400 Systolic blood pressure 136 mm[Hg] [facility] 04-28-2020 07:51-0500 Body Temperature 97.81 [degF] [place], [place] 04-28-2020 07:51-0500 BP Diastolic 68 mm[Hg] [place] 04-28-2020 07:51-0500 BP Systolic 121 mm[Hg] [place] 04-28-2020 07:51-0500 Pulse (Heart Rate) 97 /min [place] 04-28-2020 07:51-0500 Pulse Oximetry 97 % [place] 04-28-2020 07:51-0500 Respiratory Rate 18 /min [place] 04-25-2020 13:40-0500 BMI (Body Mass Index) 23.3 kg/m2 [place] 04-25-2020 13:40-0500 Body weight 63.5 kg [place] 04-25-2020 13:40-0500 Height 165.1 cm [place] Encounters Encounter Date Encounter Type Care Provider Facility Start: 03-31-2023 End: 03-31-2023 ambulatory LATANYA GUNN Not Available Start: 03-17-2023 End: 03-17-2023 ambulatory LATANYA VELIA Not Available Start: 03-12-2023 End: 03-12-2023 ambulatory LATANYA VELIA Not Available Start: 02-02-2023 End: 02-25-2023 Pre-admission assessment Ozzy Martinez [facility] Start: 02-01-2023 End: 02-01-2023 ambulatory Ozzy Perezten [place] Start: 11-10-2022 ambulatory KELL JOHNSON Faci lity:[facility] Jacobo Mark Start: 10-14-2022 End: 10-14-2022 Emergency department patient visit Nakul Cannon Facility[place] Start: 10-14-2022 End: 10-14-2022 Emergency department patient visit Nakul Cannon [facility] Start: 09-26-2022 ambulatory [facility] Start: 09-04-2022 End: 09-05-[address] MARCO A VELIZ . Facility: Start: 08-14-2022 End: 08-15-[address] MARCO A VELIZ . Facility: Start: 12-19-2021 End: 12-19-2021 Emergency department patient visit Anthony Briscoener [facility] Start: 11-14-2021 End: 11-14-2021 Patient encounter procedure Grover Amaral OD Work Phone: Ophthalmology Comment on above: EKC (epidemic kerato conjunctivitis) (Primary Dx) Start: 11-07-2021 End: 11-07-2021 Patient encounter procedure Grover Amaral OD Work Phone: Ophthalmology Comment on above: Viral conjunctivitis (Primary Dx) Start: 11-01-2021 End: 11-01-2021 Emergency department patient visit Keanu Kamara [facility] Start: 09-18-2021 End: 09-18-2021 Emergency department patient visit Amos Espinoza [facility] Start: 04-25-2020 End: 04-28-2020 Evaluation and [...] Work Phone: Start: 04-10-2020 [facility]ULT [facility] Start: 04-10-2020 C. TRACHOMATIS, EXTE RNAL RESULT Historical Provider Start: 04-10-2020 HEPATITIS B, EXTERNA L RESULT Historical Provider Start: 04-10-2020 HIV, EXTERNAL RESULT [facility] Start: 04-10-2020 N. GONORRHOEAE, EXTE RNAL RESULT Historical Provider Start: 04-10-2020 RH FACTOR, EXTERNAL RESULT Historical Provider Start: 04-10-2020 RPR, EXTERNAL RESULT [facility] Start: 04-10-2020 RUBELLA TITER, EXTER NAL RESULT Historical Provider Plan of Treatment Date Care Activity Detail Author Start: 12-26-2021 Influenza vaccination INFLUENZA (#1) [facility] Start: 10-08-2020 PAP TESTING PAP TESTING [facility] Start: 10-08-2018 Urine microalbumin profile DTAP,TDAP,TD (1 - Tdap) [facility] Start: 10-08-2017 CHLAMYDIA SCREENING (18-24) CHLAMYDIA SCREENING (18-24) [facility] Start: 10-08-2017 GC (GONORRHEA) SCREENING (18-24) GC (GONORRHEA) SCREENING (18-24) [facility] Start: 10-08-2017 HEPATITIS C SCREENING HEPATITIS C SCREENING [facility] Start: 10-08-2017 HIV SCREENING HIV SCREENING [facility] Start: 10-08-2013 PEDS TO ADULT TRANSITION ANNUAL ASSESSMENT PEDS TO ADULT TRANSITION ANNUAL ASSESSMENT [facility] Start: 2011 Adult depression screening assessment DEPRESSION SCREENING [facility] Start: 2011 PEDS TO ADULT TRANSITION INITIAL DISCUSSION PEDS TO ADULT TRANSITION INITIAL DISCUSSION [facility] Start: 10-08-2010 HPV VACCINE (1 - 2-dose series) HPV VACCINE (1 - 2-dose series) [facility] Start: 04-09-2000 COVID-19 VACCINE (#1) COVID-19 VACCINE (#1) [facility] Nonrebreather mask oxygen Nonreb reather mask oxygen Respiratory Care Routine As directed - RT (PRN) until discontinued starting 04/26/2020 [place] Comment on above: As directed - RT (NH N) until discontinued starting 04/26/2020 Oxygen therapy [[facility] Data Set] Initiate Oxygen Therapy Protocol Respiratory Care Routine Daily until discontinued starting 04/26/2020 [place] Comment on above: Daily until disconti nued starting 04/26/2020 Spirometry panel Incentive roger metry Respiratory Care Routine Every 2hr while awake until discontinued starting 04/26/2020 [place] Comment on above: Every 2hr while awak e until discontinued starting 04/26/2020 [place] [facility] Immunizations Immunization Date Immunization Notes Care Provider Fa solo 04-28-2020 tetanus toxoid, redu paula diphtheria toxoid, and acellular pertussis vaccine, adsorbed Chelsi Parra [facility] [place] 04-27-2020 influenza, injectabl e, quadrivalent, preservative free [place], [place] 04-26-2020 influenza quadrivale nt split vaccine (FLUZONE;FLUARIX;FLULAVAL; AFLURIA) injection 0.5 mL [place] 04-26-2020 diphtheria, tetanus toxoids and acellular pertussis vaccine, unspecified formulation [place], [place] Payers Date Payer Category Payer Medicaid [employer] [place] [id number] 2020-Present [phone] [address] [address] [place], [place] [address] Medicaid [id number] 2020 [employer] ( and others) [id number] 1999 Unknown [id number] 1999 Unknown [id number] 593 1999 Unknown [id number] 356 1999 Unknown [id number] 356 1999 Unknown [id number] 727 1999 Unknown [id number] 727 1999 Unknown [id number]. 1259 1999 Unknown [id number] 1259 1999 Unknown [id number] 1259 1959 Unknown [id number] Social History Date Type Detail Facility Start: 04-28-2020 End: 11-07-2021 Tobacco smoking status DEIS Never smoker [facility] Start: 04-28-2020 End: 11-07-2021 Tobacco use and exposure Never used [place], [place] Start: 04-28-2020 Alcohol intake Ex-drinker (finding) [place] Start: 2000 Sex Assigned At Not on file [place] Start: 10-28-2021 End: 11-07-2021 Exposure to SARS-CoV-2 (event) Not sure [place] Tobacco [facility] Comment on above: denies Sex Assigned At Female [facility] Tobacco smoking status No Smoking Status Entered [facility] Functional Status Date Assessment Result Facility 10-14-2022 Functional Status N/A [facility] 12-19-2021 Functional Status N/A [facility] 11-01-2021 Functional Status N/A [facility] Clinical Notes 04-28-2020 to 02-01-2023 Note Date & Type Note Facility 02-01-2023 Note The following Patien t Education Materials have been given to the patient: [facility]Material [facility] 10-14-2022 Hospital Discharg e instructions Patient Education 10/14/2022 13:55:20 Sutures, [place], or Adhesive Wound Closure, [id number] Sutures, [place], or Adhesive Wound Closure Doctors use stitches [...] ?Hold the edges of the wound together. ?Crary the glue onto your skin. You may [...] skin reaction that can lead to infection. Croydon Azalia are often used to close cuts from surgery (incisions). To use azalia, your doctor will: Hold the edges of your wound close together. Place a staple across the wound. Use a tool to secure the staple to the skin. Repeat this with as many azalia as needed. Croydon are faster to use than sutures, and they cause less reaction from your skin. Azalia need to be taken out using a tool that bends the azalia away from your skin. Follow these instructions at home: Medicines Take xziz-wrj-tcbryka and prescription medicines only as told by [...] cannot use soap and water, use hand strategic alliances manager. Do not try to take off or [...] provider. Document Revised: 08/19/2021 Document Reviewed: 08/19/2021 [employer] Patient Education 2022 [employer]. Follow Up Care 10/14/2022 12:20:41 With:Baljit Watts Address: [address] [place] [address]- Business (1) When:10/17/2022 13:48:24 [facility] 12-19-2021 Evaluation + Plan note Extrac [...] w/ Auto Diff eGFR PT & PTT [facility]08-25-2022 Hospital Discharge instructions Patient Education 12/19/2021 04:06:21 Dysfunctional Uterine Bleeding Dysfunctional Uterine Bleeding Dysfunctional uterine bleeding is abnormal bleeding from the uterus. Dysfunctional uterine bleedingincludes: A menstrual period that comes earlier or later than usual. A menstrual period that is residential housekeeper or heavier than usual, or has large [...] to keep your urine pale yellow. ?Take scfg-puj-dcnbqrw or prescription medicines. ?Eat foods that are high in fiber, such as beans, whole grains, and fresh fruits and vegetables. ?Limit foods that are high in fat and processed sugars, such as fried or sweet foods. Medicines Take iznh-zcw-equngfq and prescription medicines only as told by [...] 04/10/2001 Document Revised: 09/22/2018 Document Reviewed: 09/22/2018 [employer] Patient Education 2020 [employer]. Follow Up Care 12/19/2021 01:46:43 With:Ozzy Martinez Address: [facility] [address] [id number] Business (1) When:12/22/2021 [facility]07-21-2022 NoteHNO ID: [id number] Author: Grover Amaral, DIXON Service: ? Author Type: PACU RN Type: Progress Notes Filed: 11/14/2021 2:32 PM [...] Grover Amaral, OD November 14, 2021 2:29 [facility]07-21-2022 History of Present illness Narrative* Grover Amaral, [...] 14, 2021 2:29 PM [facility] NoteHNO ID: [id number] Author: Grover Amaral OD Service: ? Author Type: PACU RN Type: Progress Notes Filed: 11/07/2021 4:03 PM [...] Grover Amaral, DIXON November 07, 2021 4:03 [facility]07-14-2022 Miscellaneous Notes* Addendum Note - Grover Amaral OD - 11/07/2021 4:06 PM EDT Addended by: GROVER AMARAL on: 11/07/2021 04:06 PM Modules accepted: Orders [facility] in [facility] History of Present illness Narrative* Grovre Amaral OD - 11/07/2021 4:01 PM EDT [...] 07, 2021 4:03 PM [facility] Evaluation + Plan note Extracted from: Title:ED Note Author:Keanu Kamara DO Date: Allergic reaction (T78.40XA: Allergy, unspecified, initial encounter) Orders: predniSONE, 60 mg = 3 tab(s), Oral, Daily, X 5 day(s), # 15 tab(s), Refills(s) 0, Pharmacy: [facility]/pharmacy #[id number], 165, cm, 11/01/21 8:11:00 EDT, Height/Length Dosing, 63, kg, 11/01/21 8:11:00 EDT, Weight Dosing [facility]07-08-2022 Hospital Discharge instructions Patient Education 11/01/2021 [...] care provider who specializes in treating allergies (engineering group leader) or eye conditions (lens grinder apprentice) for tests to confirm the diagnosis. You [...] Eye drops. These may be prescription or glxr-hkd-peyttaj. There are several different types. You may [...] known allergens whenever possible. Take or apply qqea-jok-kfazuhw and prescription medicines only as told by [...] 07/04/2003 Document Revised: 03/26/2018 Document Reviewed: 10/24/2016 [employer] Patient Education 2020 [employer]ee. Follow Up Care 11/01/2021 08:05:40 With:Johanna Huynh Address: [address] [address]- Business (1) When:11/04/2021 08:24:58 Comments:Call today to arrange for follow-up appointment on Thursday or Thursday. Return to the ED with new or worsening symptoms as discussed. With:Baljit Watts Address: [address] [place] [address]- Business (1) When:11/04/2021 08:24:46 Comments:Call the office [...] you develop any new or worsening symptoms. [facility]05-25-2022 Hospital Discharge instructions Patient Education 09/18/2021 [...] may be recommended to support your foot. Ynpb-qsi-mgtrluw anti-inflammatory medicines may also be recommended for [...] sitting or lying down. General instructions Take qeic-ggp-kysutpp and prescription medicines only as told by [...] 02/02/2007 Document Revised: 12/14/2018 Document Reviewed: 12/14/2018 [employer] Patient Education 2020 doxo Follow Up Care 09/18/2021 09:48:23 With:Baljit Link Address: [address] [place] [address] [facility] (1) When:09/21/2021 11:47:11 Comments:Return to the emergency room if your pain gets worse or any new symptom [facility]05-25-2022 Evaluation + Plan noteExtracted from: Title:ED Note Author:Amos Espinoza M.D. te:09/18/21 1. Contusion of left foot (S 90.32XA: Contusion of left foot, initial encounter) Orders: Post-op Shoe XR Foot 3+ Views Left [facility]01-02-2021 NoteDepartment of Obstetrics and Gynecology Delivery Discharge Summary Admission on 04/25/2020 1:08 PM Reason for admission: 04/25/2020 Intrapartum Course: N/A 30w6d PC-01 Indications for Delivery: Was patient delivered between 37w0d - 95k6ltswul? NO Surgical Operations & Procedures: Date of delivery: 04/26/2020 Delivery Type: without labor Anesthesia: Spinal anesthesia Laceration(s): n/a Delivery Complications: none EBL: 700 cc Pertinent Findings & Procedures: Information for the patient's : Ree Herrera [[id number]] female Weight: 2 lb 12.3 oz (1.256 kg) Apgars: Information for the patient's : Ree Herrera [[id number]] One Minute : 6 Five Minute : 7 Course: Magnesium sulfate and Procardia for PEWSF Infant: Female Blood Type/Rh: O POS Antibody Screen: Antibody Screen Date Value Ref Range Status 04/25/2020 NEG NA Final Rubella: No results found for: RUBELLAIGG Contraception: will be discussed with her provider at [place] : no VTE Prophylaxis: Not Indicated Meds: Anand Herrera Home Medication Instructions RANDA:[id number] Printed on:04/28/20 1238 Medication Information ferrous sulfate [...] in [address] Wray in [place]. 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 Wray answering service at [phone] to update him with her condition, medications, [...] Kat MD on 04/28/2020 at 12:38 [facility] Viral conjunctivitis- Primary Unspecified diseases of conjunctiva due to viruses [facility]* Diagnosis EKC (epidemic keratoconjunctivitis)- Primary Epidemic keratoconjunctivitis documented in this encounter [facility] course Narrative No data available for this section [facility] No data available for this section [facility] No data available for this section [facility] Summary Purpose Family History No Family [...] Delivery: Was patient delivered between 37w0d - 35v0gzqtag? NO Surgical Operations & Procedures: Date of delivery: 04/26/2020 Delivery Type: without labor Anesthesia: Spinal anesthesia Laceration(s): n/a Delivery Complications: none EBL: 700 cc Pertinent Findings & Procedures: Information for the patient's : Ree Herrera [[id number]] female Weight: 2 lb 12.3 oz (1.256 kg) Apgars: Information for the patient's : Ree Herrera [[id number]] One Minute : 6 Five Minute : 7 Course: Magnesium sulfate and Procardia for PEWSF Infant: Female infant Blood Type/Rh: O POS Antibody Screen: Antibody Screen Date Value Ref Range Status 04/25/2020 NEG NA Final Rubella: No results found for: RUBELLAIGG Contraception: will be discussed with her provider at [place] : no VTE Prophylaxis: Not Indicated Meds: Anand Herrera Home Medication Instructions RANDA:[id number] Printed on:04/28/20 5895 Medication Information ferrous sulfate (IRON 325) 325 [...] in [address] Wray in [place]. Condition on discharge: Stable Discharge to: Home [...] know - She will follow with her ENGINEERING SUPPL[employer] SALES in [place] - I will call Dr. Wray answering service at [phone] to update him with her condition, medications, [...] allowing us to care of you at [facility]. This time can be one of many [...] over the next few weeks. Bleeding may hot die picker and then decrease again around 7-10 [...] avoid constipation you may take a mild qvps-yhu-traghny stool softener (such as colace) as recommended [...] clean your hands with an alcohol-based hand strategic alliances manager that contains at least 60% alcohol. Clean your hands often Wash your hands often with soap and water for at least 20 seconds, especially after blowing your nose, coughing, or sneezing; going to the bathroom; and before eating or preparing food. If soap and water are not readily available, use an alcohol-based hand strategic alliances manager with at least 60% alcohol, covering all [...] healthcare provider to call the local or [facility] health department. Persons who are placed underactive [...] isolation precautions should be made on a lyfc-mu-wfrc basis, in consultation with healthcare providers and [facility]. Information on COVID-19 for all [...] respiratory tract signs and symptoms. Ways to [place] with Anxiety & Stress It is normal [...] an illness that was first found in [facility], in March 2019. It has since [...] seen in people before. This virus spreads oqmiyr-qe-tqkguj through droplets from coughing and sneezing. It [...] water aren't available, use an alcohol-based hand strategic alliances manager. Call 911 anytime you think you may [...] of: July 27, 2019 Content Version: 12.4 [employer]. Care instructions adapted under license by your healthcare professional. If you have questions about a medical condition or this instruction, always ask your healthcare professional. [employer] disclaims any warranty or liability for your use of this information. General Recommendations for Routine Cleaning and Disinfection of Households Community members can practice routine cleaning of frequently touched surfaces (for example: tables, doorknobs, light switches, handles, desks, toilets, faucets, sinks) with household truck terminal manager and EPA-registered disinfectants that are appropriate [...] appropriate. These supplies include tissues, paper towels, truck terminal manager and EPA-registered disinfectants (see list link [...] be used for other purposes. Consult the minister helper's instructions for cleaning and disinfection products used. [...] used if appropriate for the surface. Follow minister helper's instructions for application and proper ventilation. Check [...] o Products with EPA-approved emerging viral pathogens [facility] iconexternal icon are expected to be effective against COVID-19 based on data for harder to kill viruses. Follow the minister helper's instructions for all cleaning and disinfection products (e.g., concentration, application method and contact time, etc.). Soft (porous) surfaces such as carpeted floor, rugs, and drapes Remove visible contamination if present and clean with appropriate truck terminal manager indicated for use on these surfaces. After cleaning: Launder items as appropriate in accordance with the minister helper's instructions. If possible, launder items using the [...] items as appropriate in accordance with the minister helper's instructions. If possible, launder items using the warmest appropriate water setting for the items and dry items completely. Dirtylaundry from an ill person can be washed with other people's items. o Clean and disinfect clothes hampers according to guidance above for surfaces. If possible, consider placing a harness and bag inspector that is either disposable (can be thrown away) or can be laundered. [facility] has a list of EPA approved cleaning products on their website - https://www.cdc.gov/coronavirus/ 2019-ncov/community/home/cleaning-disinfection.html https://www.[employer]/Isqiy-Muznnlkozpb-Cxmbewcs-Products-List.pdf [employer] Stores with delivery and hot die picker services: [employer]: Free hot die picker at locations Delivery is $12.95 a month Website - [employer]: Managed Care Liaison $2.95 (1st order is free) Delivery is $14.95 Website [employer]: follow up rep is free Delivery is $5.95 [employer]: follow up rep is $4.95 Delivery is $9.95 Website [employer]: follow up rep is $4.95 Delivery is $9.95 Equ[employer] Whole Foods Market: Can be ordered for delivery and hot die picker with [employer] Website - www.[employer]: Free deliver for first 3 orders of $35 or more Website [employer]Globe[employer]e Will deliver from [employer], Me[employer], [employer], and [employer]. 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 Matso for pre-eclampsia with SF at 30 5/7 weeks GA transfer from [facility]/Dr Stevens Notified by Dr. Castellanos about the concerns for well being and the concerns of the heart rate tracing. Reviewed with him real time confidentially on face time while he was in the formerly named [facility] lounge and I was at home secondary [...] concern for concealed abruption. I did not counselor aide the patient directly of the R/B/A of [...] day, as when she first arrived to [facility] more moderate than minimal. Patient rajeev [...] section and content) DATE CREATED AUTHOR 04/18/2020 [facility] DATE CREATED AUTHOR AUTHOR'S ORGANIZ ATION 02/28/2021 [facility] DATE CREATED AUTHOR AUTHOR'S ORGANIZ ATION 11/16/2021 [facility] DATE CREATED AUTHOR AUTHOR'S ORGANIZ ATION 09/10/2022 [facility] DATE CREATED AUTHOR AUTHOR'S ORGANIZ ATION 11/13/2022 [facility] DATE CREATED AUTHOR AUTHOR'S ORGANIZ ATION 02/04/2023 [facility] DATE CREATED AUTHOR AUTHOR'S ORGANIZ [...] Care Team (unrecognized sect ion and content) Assistant Offset Press Operator Relationship Specialty Start Date End Date Baljit Watts MD [address] [place] [address] PCP - General Family Practice 11/07/21 Assistant Offset Press Operator Relationship Specialty Start Date End Date Baljit Watts MD [address] [place] [address] PCP - General Family Practice 11/07/21 Source Comments (unrecognize d section and content) In the event this informatio n is protected by the Federal Confidentiality of Alcohol and Drug Abuse Patient Records regulations: The Federal rules restrict any use of the information to criminally investigate or prosecute any alcohol or drug abuse patient.[facility] the event this information is protected by the Federal Confidentiality of Alcohol and Drug Abuse Patient Records regulations: The Federal rules restrict any use of the information to criminally investigate or prosecute any alcohol or drug abuse patient.[facility] FOR RECORDS PERTAINING TO PATIENTS WHO ARE [...] BE BASED ON THE PRIMARY CLINICAL RECORDS. [facility] [employer] [facility]. provides no warranty or guarantee of the accuracy or completeness of information in this document.
== END 2023-03-17 08:05 | disposition home or self-care (01) ==
LOC: FBCO 07:27 → FBC 07:30
PROVIDERS: Visit Provider Obstetrics & Gynecology
DX: O09.893 Supervision of other high risk pregnancies, third trimester (principal)
CPT/HCPCS: 59025

== ENCOUNTER 2023-03-24 08:30 | Inpatient (IN) | payer OTHER, SELFPAY ==
[2023-03-24] VITALS (34 sets, daily range): BP systolic 60–138; BP diastolic 28–83; PULSE 69–97; RESP 13–23; TEMP 35.7–36.8; O2SAT 79–100
--- NOTE | 2023-03-24 07:50 | PC.NURSE ---
Fetus audibly active
--- NOTE | 2023-03-24 08:28 | PC.NURSE ---
dr butler at bedside
[2023-03-24 08:44] LABS: Basophils Percent Auto 0.3 % (0.2-2.0); Eosinophils Percent Auto 0.2 % (0.9-7.0); Hematocrit 36.1 % (36.0-48.0); Hemoglobin 11.7 g/dL (12.0-16.0); Immature Granulocytes Abs Auto 0.05 10^3/uL (0.00-0.03); Immature Granulocytes Pct Auto 0.4 % (0.0-0.5); Lymphocytes Absolute Auto 2.2 10^3/uL (1.2-3.8); Lymphocytes Percent Auto 16.7 % (20.5-60.0); Mean Corpuscular HGB Conc 32.4 g/dL (29.9-35.2); Mean Corpuscular Hemoglobin 30.4 pg (26.7-34.0); Mean Corpuscular Volume 93.8 fL (81.0-99.0); Mean Platelet Volume 9.6 fL (9.5-13.5); Monocytes Absolute Auto 0.9 10^3/uL (0.3-0.8); Monocytes Percent Auto 6.9 % (1.7-12.0); Neutrophils Absolute Auto 9.7 10^3/uL (1.4-6.5); Neutrophils Percent Auto 75.5 % (43.0-75.0); Platelet Count 322 10^3/uL (150-450); Red Blood Count 3.85 10^6/uL (4.20-5.40); Red Cell Distribution Width 13.2 % (11.0-15.0); White Blood Count 12.8 10^3/uL (4.0-11.0)
[2023-03-24] MEDS: 0.9 % SODIUM CHLORIDE 1,000 ML 1000 ML IV ×2 (08:50→11:28)
[2023-03-24] MEDS: FAMOTIDINE/PF 20 MG/2 ML VIAL IV (08:50)
[2023-03-24] MEDS: CITRIC ACID/SODIUM CITRATE 30 ML SOLUTION ORACIT SHOHL'S SOLN PO (08:50)
[2023-03-24] MEDS: METOCLOPRAMIDE HCL 10 MG/2 ML VIAL IVP (08:51)
[2023-03-24 08:59] LABS: Amphetamine Screen Urine POSITIVE (NEGATIVE); Barbiturates Screen Urine NEGATIVE (NEGATIVE); Benzodiazepines Screen Urine NEGATIVE (NEGATIVE); Buprenorphine Screen Urine NEGATIVE (NEGATIVE); Cannabinoid Screen Urine NEGATIVE (NEGATIVE); Cocaine Screen Urine NEGATIVE (NEGATIVE); Methadone Screen Urine NEGATIVE (NEGATIVE); Methamphetamines Screen Urine NEGATIVE (NEGATIVE); Opiate Screen Urine NEGATIVE (NEGATIVE); Oxycodone Screen Urine NEGATIVE (NEGATIVE); Phencyclidine Screen Urine NEGATIVE (NEGATIVE); Tricyclic Antidepressant Urine NEGATIVE (NEGATIVE)
[2023-03-24] MEDS: CEFAZOLIN SODIUM/DEXTROSE,ISO 2 GM/50 ML PIGGYBACK IV (09:30)
--- NOTE | 2023-03-24 10:21 | PM.ONB ---
Brief Operative Note Date of procedure: 03/24/23 Pre-op diagnosis: iup at 37 6/7wks, previous c/s, ho severe preeclampsia Post-op diagnosis: same as pre-op Procedure: NAME OF PROCEDURE: [ section ] PROCEDURE: Patient was taken back to the Operating Room where she was given a spinal anesthesia with Duramorph without difficulty. She was prepped and draped in the normal sterile fashion. A Pfannenstiel skin incision was then made 2 cm above the symphysis pubis and carried down to underlying rectus fascia using a Bovie. The fascia was incised in the midline and extended laterally using Sutherland scissors. Two Ning clamps were placed on the superior aspect of the fascia and dissected off the underlying rectus muscles. The same was performed on the inferior aspect as well. The muscles were then in the midline. Peritoneum was identified and entered bluntly. The peritoneum was then extended superiorly and inferiorly with good visualization of the bladder. The bladder blade was inserted. A low transverse incision was made on the patient's uterus and extended laterally digitally. The was then delivered atraumatically after the bladder blade was removed in the cephalic position. The cord was clamped and cut. Cord blood was obtained. The infant was handed off to awaiting team. The patient's placenta was spontaneously delivered. The uterus was then exteriorized. The uterus was cleared of all clots and debris. The bladder blade was reinserted. The patient's uterine incision was closed using #0 Vicryl in a running lock fashion. Excellent hemostasis was assured. The uterus was then returned to the patient's abdomen. The patient's abdomen was copiously irrigated using warm saline. Peritoneal gutters were cleared of all clots and debris. Again excellent hemostasis was assured. The patient's peritoneum was closed using 3-0 Vicryl in a running fashion. The patient's fascia was closed using #0 Vicryl in a running fashion. The patient's skin was closed using 4-0 Vicryl subcuticularly. The patient tolerated the procedure well. Sponge, lap, and needle counts were correct x2. The patient was taken to the Recovery Room in stable condition. Anesthesia: ESPERANZA Surgeon: Marco A Greene [employer] Planners: Goldie Fairchild Estimated blood loss (mL): 600 Pathology: other (placenta) Condition: stable Disposition: PACU
--- NOTE | 2023-03-24 10:24 | PM.OBPRCCS ---
Procedure Pre-op/Post-op diagnoses: Pre-Op/Post-Op Diagnoses Operation Date: 03/24/23 08:45 <No data on this case meets the specified criteria> Procedure: Procedures Operation Date: 03/24/23 08:45 Actual Procedure Side Surgeon p Not Applicable Marco A Greene DO Director Of Business Services: Goldie Fairchild Estimated blood loss (mL): 600 Disposition: PACU Anesthesia type: Spinal
--- NOTE | 2023-03-24 12:40 | PC.NURSE ---
Pt. pumps 11 ml of colostrum
[2023-03-24] MEDS: KETOROLAC TROMETHAMINE 30 MG/ML VIAL IVP ×2 (16:27→22:08)
--- NOTE | 2023-03-24 16:41 | PC.NURSE ---
ailin pad changed
[2023-03-24] MEDS: CEFAZOLIN SODIUM 2,000 MG in 0.9 % SODIUM CHLORIDE 50 ML 100 MG IV (17:08)
[2023-03-24] MEDS: ONDANSETRON 4 MG RAPDIS TABLET PO (17:37)
[2023-03-24] MEDS: ENOXAPARIN SODIUM 40 MG/0.4 ML SYRINGE SUBQ (22:08)
[2023-03-25] VITALS (9 sets, daily range): BP systolic 94–110; BP diastolic 52–67; PULSE 75–93; RESP 14–18; TEMP 36.2–37.5
--- NOTE | 2023-03-25 01:07 | W.PC.ACHO ---
Registration Status: ADM [place] Primary Language: Zimbabwean Preferred Language: Zimbabwean Active Medications Generic Name Dose Route Start Last Admin Trade Name Freq PRN Reason Stop Dose Admin Al Hydroxide/Mg Hydroxide 2,400 mg 03/24/23 10:25 Magnesium Hydroxide 2,400 Mg/10 Ml Oral.Susp PO Q6H PRN Dyspepsia Diphenhydramine HCl 25 mg 03/24/23 10:25 Diphenhydramine Hcl 50 Mg/Ml (1ml) Vial IV 03/25/23 10:26 Q6H PRN Itching Diphtheria/Pertussis/Tetanus Vacc 0.5 ml 03/26/23 11:00 Adacel Diph,Pertuss(Acell),Tet Vac/Pf 0.5 Ml Adult Syringe IM 03/26/23 11:01 .ONCE ONE Docusate Sodium 100 mg 03/25/23 09:00 Docusate Sodium 100 Mg Capsule PO BID KASANDRA Enoxaparin Sodium 40 mg 03/24/23 22:00 03/24/23 22:08 Enoxaparin Sodium 40 Mg/0.4 Ml Syringe SUBQ 40 mg Q24H KASANDRA Administration Sodium Chloride 1,000 mls @ 125 mls/hr 03/24/23 08:45 03/24/23 14:33 Sodium Chloride 0.9% 1,000 Ml IV Not Given .Q8H KASANDRA Sodium Chloride 1,000 mls @ 125 mls/hr 03/24/23 10:30 Sodium Chloride 0.9% 1,000 Ml IV .Q8H KASANDRA Ibuprofen 800 mg 03/24/23 10:25 Ibuprofen 400 Mg Tablet PO Q8H PRN Pain Ketorolac Tromethamine 30 mg 03/24/23 10:25 03/24/23 22:08 Ketorolac Tromethamine 30 Mg/Ml Vial IVP 03/26/23 10:26 30 mg Q6H PRN Administration Pain Measles/Mumps/Rubella Vaccine Live 0.5 ml 03/26/23 11:00 Measles,Mumps,Rubella Vacc/Pf 0.5 Ml Vial SQ 03/26/23 11:01 .ONCE ONE Ondansetron HCl 4 mg 03/24/23 10:25 Ondansetron Pf 4 Mg/2 Ml Vial IV Q6H PRN Nausea And Vomiting Ondansetron HCl 4 mg 03/24/23 10:25 03/24/23 17:37 Ondansetron 4 Mg Rapdis Tablet PO 4 mg Q6H PRN Administration Nausea And Vomiting Oxycodone/Acetaminophen 1 tab 03/24/23 10:25 Oxycodone Hcl/Acetaminophen 5mg/325mg PO Q4H PRN Pain Scale 4-6 Oxycodone/Acetaminophen 2 tab 03/24/23 10:25 Oxycodone Hcl/Acetaminophen 5mg/325mg PO Q4H PRN Pain Scale 7-10 Senna 17.2 mg 03/24/23 20:00 Sennosides 8.6 Mg Tablet PO QHS PRN Constipation Simethicone 80 mg 03/24/23 10:25 Simethicone 80 Mg Tab.Chew PO QID PRN Abdominal Distention Diet Category Date Time Status Regular Consistency Diet Diet 03/24/23 10:25 Active IV Insertion/Site Date of IV Line Insertion [ 03/24/23 Short PIV (<1.75 in) 20g left Forearm] IV Insertion Time [Short PIV ( 08:35 <1.75 in) 20g left Forearm] Neurology Patient orientation (short person,place,time list) Respiratory Lung sounds [Bilateral Upper clear Lobe] Pulse Oximetry 97 Pulse Oximetry 98 Pulse Oximetry 100 Pulse Oximetry 98 Pulse Oximetry 96 Pulse Oximetry 79 Pulse Oximetry 99 Pulse Oximetry 97 Pulse Oximetry 99 Oxygen Delivery Method Room Air Oxygen Delivery Method Room Air Oxygen Delivery Method Room Air Oxygen Delivery Method Room Air Oxygen Delivery Method Room Air Oxygen Delivery Method Room Air
[2023-03-25] MEDS: KETOROLAC TROMETHAMINE 30 MG/ML VIAL IVP ×3 (05:18→22:16)
[2023-03-25 06:06] LABS: Basophils Percent Auto 0.3 % (0.2-2.0); Eosinophils Absolute Auto 0.1 10^3/uL (0.0-0.7); Eosinophils Percent Auto 1.1 % (0.9-7.0); Hematocrit 28.2 % (36.0-48.0); Hemoglobin 9.3 g/dL (12.0-16.0); Immature Granulocytes Abs Auto 0.04 10^3/uL (0.00-0.03); Immature Granulocytes Pct Auto 0.3 % (0.0-0.5); Lymphocytes Absolute Auto 2.5 10^3/uL (1.2-3.8); Lymphocytes Percent Auto 21.4 % (20.5-60.0); Mean Corpuscular Hemoglobin 30.5 pg (26.7-34.0); Mean Corpuscular Volume 92.5 fL (81.0-99.0); Mean Platelet Volume 9.5 fL (9.5-13.5); Monocytes Absolute Auto 0.9 10^3/uL (0.3-0.8); Monocytes Percent Auto 7.9 % (1.7-12.0); Neutrophils Absolute Auto 7.9 10^3/uL (1.4-6.5); Platelet Count 258 10^3/uL (150-450); Red Blood Count 3.05 10^6/uL (4.20-5.40); Red Cell Distribution Width 13.2 % (11.0-15.0); White Blood Count 11.5 10^3/uL (4.0-11.0)
--- NOTE | 2023-03-25 07:42 | P.OBPN_ITS ---
OB - PN: Subj Subjective Patient comments: no complaints and pain well controlled [place] status: doing well Exam Constitutional Vital Signs, click to edit/add: Last Vital Signs Temp 97.6 F 03/25/23 03:35 Pulse 86 03/25/23 03:35 Resp 18 03/25/23 03:35 BP 109/58 03/25/23 03:35 Pulse Ox 97 03/24/23 11:11 O2 Del Method Room Air 03/24/23 23:55 Documenting provider has reviewed patient's vital signs: yes Common normals: no apparent distress Respiratory Common normals: normal respiratory effort and clear to auscultation bilaterally Cardio Common normals: regular rate and regular rhythm GI Common normals: Normal to inspection, nondistended, normoactive bowel sounds present Extremity Common normals: no calf tenderness Results Labs Labs: Short CBC 03/24/23 03/25/23 Range/Units 08:35 05:41 WBC 12.8 H 11.5 H (4.0-11.0) 10^3/uL Hgb 11.7 L 9.3 L (12.0-16.0) g/dL Hct 36.1 28.2 L (36.0-48.0) % Plt Count 322 258 (150-450) 10^3/uL OB - PN: A/P Plan - day: 1 Plan: routine postop care Time Spent with Patient Time: Total time spent is greater than 50% in coordination of care (as documented) at patient's floor/unit and/or counseling patient: Total time spent with greater than 50% in coordination of care (as documented) at patient's floor/unit and/or counseling patient: less than 15 minutes
[2023-03-25] MEDS: DOCUSATE SODIUM 100 MG CAPSULE PO ×2 (08:49→22:16)
--- NOTE | 2023-03-25 14:56 | CM.NOTE ---
Discussed consult with Carola Welsh RN and will not do consult at this time. Discussion already with pt and physician regarding possible false positive related to cold medication pt had been taking. Cord will be sent and will re-evaluate if cord blood is positive for illegal substance. Carola will connect with Case management once cord results come back.
[2023-03-25] MEDS: ENOXAPARIN SODIUM 40 MG/0.4 ML SYRINGE SUBQ (22:16)
[2023-03-25] MEDS: CODEINE 10 MG/GUAIFENESIN 100 MG 5 ML CUP PO (22:17)
--- NOTE | 2023-03-26 05:34 | PM.OBPN ---
OB - PN: Subj Subjective Patient comments: no complaints and pain well controlled [employer] status: doing well Exam Constitutional Vital Signs, click to edit/add: Last Vital Signs Temp 97.2 F L 03/25/23 22:14 Pulse 75 03/25/23 22:15 Resp 16 03/25/23 16:10 BP 94/57 03/25/23 22:15 Pulse Ox 97 03/24/23 11:11 O2 Del Method Room Air 03/25/23 16:10 Documenting provider has reviewed patient's vital signs: yes Common normals: no apparent distress Respiratory Common normals: normal respiratory effort and clear to auscultation bilaterally Cardio Common normals: regular rate and regular rhythm GI Common normals: Normal to inspection, nondistended, normoactive bowel sounds present Extremity Common normals: no calf tenderness Results Labs Labs: Short CBC 03/25/23 Range/Units 05:41 WBC 11.5 H (4.0-11.0) 10^3/uL Hgb 9.3 L (12.0-16.0) g/dL Hct 28.2 L (36.0-48.0) % Plt Count 258 (150-450) 10^3/uL OB - PN: A/P Plan - day: 2 Plan: routine postop care, discharge home and follow up 6 weeks Time Spent with Patient Time: Total time spent is greater than 50% in coordination of care (as documented) at patient's floor/unit and/or counseling patient: Total time spent with greater than 50% in coordination of care (as documented) at patient's floor/unit and/or counseling patient: less than 15 minutes
[2023-03-26] MEDS: KETOROLAC TROMETHAMINE 30 MG/ML VIAL IVP (05:52)
[2023-03-26] MEDS: DOCUSATE SODIUM 100 MG CAPSULE PO (09:11)
[2023-03-26 09:13] VITALS: BP 110/66; PULSE 81
[2023-03-26 09:20] VITALS: RESP 18
[2023-03-26 09:30] VITALS: RESP 18; TEMP 36.8
[2023-03-27 07:08] LABS: Amphetamine Positive (.); Amphetamine Conf, MS, UR 778 ng/mL (Cutoff=500); Amphetamines Positive (.); Methamphetamine Negative (Cutoff=500)
--- NOTE | 2023-03-30 14:34 | CM.NOTE ---
Called pt at home to discuss babies cord results being positive for Amphetamines. Explained to mom hospital process with positive results and calling and reporting to CPS. Pt verbalizes understanding. Pt states she has no concerns with CPS d/t it being cough medicine related. Re-informed it is our hospital policy if urine and cord are positive for illegal substance it has to be reported to CPS. Pt again verbalizes understanding. Pt states there are no concerns at this time with baby, baby is doing well. Mom continues with and denies any questions or concerns with baby. Mom verbalizes everything is going great since discharge. Denies any depression and has a great support system, bonding well with baby. Report called to [facility] CPS.
--- NOTE | 2023-04-05 | DS_ITS ---
DISCHARGE DATE: 04/05/2023 PRIMARY DIAGNOSES: 1. Intrauterine at 37 6/7 weeks. 2. Previous . 3. History of severe preeclampsia. PROCEDURE: Repeat . HOSPITAL COURSE: As expected. Please see chart for full details. LABORATORY DATA: Please see chart. COMPLICATIONS: None. DISCHARGE CONDITION: Stable. CONSULTATION: Anesthesia. DISCHARGE INSTRUCTIONS: 1. Diet: Regular. 2. Medications: a. Percocet 5/325 one to two p.o. every 4-6 hours p.r.n. pain. b. Motrin 800 one p.o. every 8 hours p.r.n. pain. 3. Followup in one week. Restrictions: Pelvic rest for 6 weeks. No heavy lifting. May drive when pain free and no longer on narcotics. MTDD
== END 2023-03-26 14:20 | disposition home or self-care (01) | DRG 788 ==
LOC: FBCO 08:53 → FBC 08:53
PROVIDERS: Admitting Provider Obstetrics & Gynecology; Visit Provider Obstetrics & Gynecology
PROC: 10D00Z1 Extraction of Products of Conception, Low, Open Approach (ICD-10-PCS; CPT 59514; principal; 2023-03-24 08:45)
DX: O14.14 Severe pre-eclampsia complicating childbirth (principal); O34.211 Maternal care for low transverse scar from previous cesarean delivery; O76 Abnormality in fetal heart rate and rhythm complicating labor and delivery; Z3A.37 37 weeks gestation of pregnancy; Z37.0 Single live birth
CPT/HCPCS: 36415; 59025; 80307; 80326; 85025; 86850; 86900; 86901; 88307; 94667; 94668; 96372; 96374; 96375; 96376

== ENCOUNTER 2023-04-24 16:26 | Emergency (ER) | payer OTHER, SELFPAY ==
[2023-04-24 16:37] VITALS: BP 109/71; PULSE 107; RESP 20; TEMP 36.8; O2SAT 99; BMI 24.1
--- NOTE | 2023-04-24 17:40 | US_ITS ---
Patient Name: ANAND PERALES MR#: [id number] : 2000 Exam Date: 04/24/2023 Ordering Doctor: CODY Currie . RADIOLOGY REPORT PROCEDURE: US BREAST LT COMPLETE COMPARISON: None. INDICATIONS: mastitis TECHNIQUE: Breast ultrasound was performed, with evaluation focusing only on specific areas of concern. FINDINGS: DIAGNOSTIC CATEGORY 0--INCOMPLETE: NEED ADDITIONAL IMAGING EVALUATION. Left breast ultrasound demonstrates in the retroareolar location dilated ducts as well as extensive hypervascularity. Additionally noted at the 9 o'clock position is a nonspecific focal avascular heterogeneous hypoechogenicity measuring 7.8 x 6 9 x 6.8 mm. In light of the suspected clinical mastitis and the patient's young age, short interval follow-up with repeat ultrasound in 3 months is recommended to document resolution RECOMMENDATIONS: SHORT TERM FOLLOW-UP ULTRASOUND LEFT BREAST IN 3 MONTHS. PLEASE NOTE: A NORMAL ULTRASOUND EXAMINATION DOES NOT EXCLUDE THE POSSIBILITY OF BREAST CANCER. A CLINICALLY SUSPICIOUS PALPABLE LUMP SHOULD BE BIOPSIED. Dictated by: Naga Pettit MD on 04/28/2023 at 07:39 Approved by: Naga Pettit MD on 04/28/2023 at 07:42
[2023-04-24] MEDS: AMOXICILLIN/POTASSIUM CLAV 1 TAB TABLET PO (18:00)
--- NOTE | 2023-04-24 18:10 | PC.NURSE ---
left breast has what a appears to be ring around the right side of the breast, possible from the pump pt uses. but area under left breast skin is red and warm to touch.
--- NOTE | 2023-04-24 18:45 | ED_ITS ---
HPI - General Adult General Chief complaint: Skin/Abscess/Foreign Body Stated complaint: POSS MASTITIS Time Seen by Provider: 04/24/23 17:40 Source: patient Mode of arrival: walk-in Limitations: no limitations History of Present Illness HPI narrative: 22-year-old female presents here with a Chief complaint of left breast tenderness. Patient is currently breast-feeding and states developed redness and pain over last two days.She states her does not feed of left breast as much as the right. She has not had any fevers or chills. She is here due to rash and tenderness. Patient is currently afebrile. Related Data Home Medications Medication Instructions Recorded Confirmed lisdexamfetamine 40 mg capsule 40 mg PO DAILY 04/24/23 04/24/23 (Vyvanse) Previous Rx's Medication Instructions Recorded amoxicillin 875 mg-potassium 1 tab PO BID 10 days #20 tabs 04/24/23 clavulanate 125 mg tablet Allergies Allergy/AdvReac Type Severity Reaction Status Date / Time No Known Drug Allergies Allergy Verified 04/24/23 16:36 Review of Systems ROS Narrative All Systems are negative except as noted/marked.All systems reviewed and otherwise negative PFSH PFS Medical History (Updated 04/24/23 @ 18:49 by Simona Currie) UTI (urinary tract infection) ?N39.0 - Urinary tract infection, site not specified (ICD-10) PIH ( induced hypertension), antepartum ?O13.9 - Gestational [-induced] hypertension without significant proteinuria, unspecified trimester (ICD-10) delivery ?O60.10X0 - labor with delivery, unspecified trimester, not applicable or unspecified (ICD-10) Surgical History (Updated 02/01/23 @ 14:12 by Gila Villalobos) Previous section ?Z98.891 - History of uterine scar from previous surgery (ICD-10) Social History Smoking status: Never smoker Exam Narrative Exam Narrative: Nurses note and vital signs reviewed and patient is not hypoxic. General: The patient appears well and in no apparent distress. Patient is resting comfortably on cart. Skin: Warm, dry, no pallor noted. There is no rash noted. Head: Normocephalic, atraumatic Eye: Normal conjunctiva, no drainage, EOMI. PERRL Ears, Nose, Mouth, and Throat: oral mucosa is moist. Nares patent. Mouth without vesicles. Ear canals patent. Tm's without Erythema Breast: right Breast normal exam,Left breast redness and streaking consistent with probable mastitis, no abscess appreciated superficially to palpation, no lymphadenopathy left axillary region Respiratory: Patient is in no distress, no accessory muscle use, lungs are clear to auscultation, no wheezing, rales or rhonchi Musculoskeletal: The patient has no evidence of calf tenderness, no pitting edema, symmetrical pulses noted bilaterally Neurological: A&O x4, normal speech Psychiatric: Cooperative Constitutional Vital Signs, click to edit/add: Last Vital Signs Temp 98.3 F 04/24/23 16:37 Pulse 107 H 04/24/23 16:37 Resp 20 04/24/23 16:37 BP 109/71 04/24/23 16:37 Pulse Ox 99 04/24/23 16:37 O2 Del Method Room Air 04/24/23 16:37 Course Vital Signs Vital signs: Vital Signs Temperature 98.3 F 04/24/23 16:37 Pulse Rate 107 H 04/24/23 16:37 Respiratory Rate 20 04/24/23 16:37 Blood Pressure 109/71 04/24/23 16:37 Pulse Oximetry 99 04/24/23 16:37 Oxygen Delivery Method Room Air 04/24/23 16:37 Temperature 98.3 F 04/24/23 16:37 Pulse Rate 107 H 04/24/23 16:37 Respiratory Rate 20 04/24/23 16:37 Blood Pressure 109/71 04/24/23 16:37 Pulse Oximetry 99 04/24/23 16:37 Oxygen Delivery Method Room Air 04/24/23 16:37 Medical Decision Making Medical Records Medical records reviewed: Yes I reviewed the patient's medical records Medical records narrative: 22-year-old female with a history of left breast tenderness present to the emergency room. She is currently breast-feeding. Patient has small area of streaking and tenderness noticed the left breast. She is afebrile. Ultrasound showed no acute abscess at this time. Patient was treated here with Augmentin. 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 The area was marked with a marking pen. I did explain to the patient if the streaking does pass the marking in the next twenty-four hours she needs to return to the emergency room. Patient looks well. Medicated here with Augmentin. Prescription sent to pharmacy. Questions answered. Patient verbalizes understanding agrees with plan of care Lab Data Lab results reviewed: Yes I reviewed the patient's lab results Discharge Plan Discharge Chief Complaint: Skin/Abscess/Foreign Body Clinical Impression: Mastitis Patient Disposition: Home, Self-Care Time of Disposition Decision: 18:49 Condition: Good Prescriptions / Home Meds: New amoxicillin-pot clavulanate 875-125 mg tablet 1 tab PO BID 10 Days Qty: 20 0RF No Action lisdexamfetamine [Vyvanse] 40 mg capsule 40 mg PO DAILY Instructions: Mastitis (ED) Stand Alone Forms: Portal Instructions Referrals: Physician,Non-Staff, MD [Primary Care Provider] - 1 week
== END 2023-04-24 19:33 | disposition home or self-care (01) ==
PROVIDERS: Emergency Provider Emergency Medicine Emergency Medical Services
DX: O91.23 Nonpurulent mastitis associated with lactation (principal); Z87.440 Personal history of urinary (tract) infections
CPT/HCPCS: 76641; 99284

== ENCOUNTER 2024-03-08 21:28 | Outpatient (REF) | payer OTHER, SELFPAY ==
--- OUTSIDE RECORDS SUMMARY | 2024-03-08 21:33 | XMS_ITS | CCD ---
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 Marco A Zavaleta Referring Unavail able UNKNOWN, PCP Primary Care Unavailable UNKNOWN, PCP Primary Care Unavailable Jc, Dr. Marco A Zavaleta Referring Unavail able Danielle, Dr. Jess Agee Attending Unav ailable Kassandra, John Attending Unavailable MichelleOzzy greer Attending Unavailable MichelleOzzy greer Admitting Unavailable VELIALATANYA MARK Attending Unavailable VELIA, LATANYA Attending Unavailable VELIA, LATANYA Attending Unavailable LATANYA GUNN Attending Unavailable POCOSJESS Referring Unavailable POCOSJESS Attending Unavailable BAILEY GONZALES Referring Unavailable Medications Current Medications Medication Drug Class(es) [...] day(s), # 20 tab(s), Refills(s) 0, Pharmacy: [facility]/pharmacy #[id number], 164, cm, 10/14/22 12:30:00 EDT, Height/Length Dosing, 66, kg, 10/14/22 12:30:00 EDT, Weight Dosing Start Date: 10/14/22 Stop Date: 10/24/22 Status: Ordered Start: 10-31-2021 [facility] amox[facility] 500 mg Cap 500 mg = 1 cap(s), Oral, q12hr, # 20 cap(s), Refills(s) 0, Pharmacy: [facility]/pharmacy #[id number], 165, cm, 10/31/21 12:19:00 [...] Start: 04-01-2020 take 1 capsule by mo ut once daily in the morning Vyvanse 60 [...] tablet 3 04/29/2020 Active Start: 04-26-2020 NIFEdipine (CT OCARDIA XL) extended release tablet 30 mg [...] Date: 01/31/23 Status: Ordered polyethylene glycol 3350 36172 mg powder for oral solution (1 source) [...] for 10 day(s), 20 tab(s), Refill(s) 0, [facility]/pharmacy #[id number], 165, cm, 10/31/21 12:19:00 [...] Intraveno us, at 50 mL/hr, CONTINUOUS, Starting Thu04/25/20 at 1615, For 48 hours Pre-Infusion: Assess [...] day(s), # 15 tab(s), Refills(s) 0, Pharmacy: [facility]/pharmacy #[id number], 165, cm, 11/01/21 8:11:00 EDT, Height/Length Dosing, 63, kg, 11/01/21 8:11:00 EDT, Weight Dosing Start Date: 11/01/21 Stop Date: 11/06/21 Status: Ordered Comment on above: Take 20 mg by mouth once daily. tobramycin 3 mg/ml ophthalmic solution (2 sources) Aminoglycoside Antibacterial Start: take 0.3 drop(s) into the eye(s) three [...] Results Test Name Value Interpretation Reference Range Facility Nursing Assessmenton 023 Nursing Assessment [id number]# 1.00TIFF Normal [facility] C Urineon 02-02-2023 Bacteria identified Cx Nom [...] Locations R1: This test was performed at: [facility], [address] [place] [address], [address]- , , Normal [facility] Comment on above: Performed By: #### 1 1344006, [id number], 4101619, 6796075 ####[address] [place] [address] ABO/Rhon 02-01-2023 ABO/Rh Positive Invalid Interpretation Code [facility] Comment on above: Performed By: #### 1 4515130, 75606242, 1862383 ####[facility] [address] [place] [address] ABSCon 02-01-2023 ABSC Gel Interp Negative Normal [facility] Comment on above: Performed By: #### 1 7696655, 41856838, 9908828 ####[facility] [address] [place] [address] BUNon 02-01-2023 Urea nitrogen [Mass/Vol] 9 mg/dL Normal 5-21 [facility] Comment on above: Performed By: #### 2 357095, 3729284, 5513759, 01788136, 81289089, 0057303, 32630802, 0474621, 0159635, 2913936 ####[facility] [address] [place] [address] Blood Bank ID#on 02-01-2023 BBID# [id number] Invalid Interpretation Code [facility] Comment on above: Performed By: #### 1 7971677, 00951444, 5476274 ####[address] [place] [address] Buprenorphine Scr Uron 02-01 U Suboxone Scr Negative Normal Negative [facility] Comment on above: Result Comment: Nega tive Cutoff: <10 ng/mL These drug screen results are to be used for medical (i.e., treatment) purposes only. Unconfirmed drug screening results must not be used for non-medical purposes (e.g., employment testing, legal testing). Performed By: #### 1 7899560, 778701653, 8928758, 8928084 ####[facility] [address] [place] [address] CBC w/Indiceson 02-01-2023 Erythrocyte distribution width (RBC) [Ratio] 14.4 % High 10.9-14.2 [facility] Comment on above: Performed By: #### 2 919018, 6552381, 8769082, 94779744, 93228232, 2448720, 68255380, 0971840, 7212832, 6578965 ####[facility] [address] [place] [address] Hematocrit (Bld) [Volume fraction] 32.9 % Low 34.0-46.0 [facility] Comment on above: Performed By: #### 2 937285, 3326424, 6990803, 39245777, 26586566, 0686961, 07424084, 5513885, 0293802, 5657875 ####[facility] [address] [place] [address] Hemoglobin (Bld) [Mass/Vol] 11.1 g/dL Low 12.0-16.0 [facility] Comment on above: Performed By: #### 2 546474, 2561881, 4335616, 78118088, 25254279, 2952679, 98879387, 4433981, 5265345, 5532233 ####[facility] [address] [place] [address] MCH (RBC) [Entitic mass] 30.4 pg Normal 27.0-34.0 [facility] Comment on above: Performed By: #### 2 326747, 7217592, 7356043, 23576891, 46090583, 3221633, 81357712, 5459178, 5264524, 4618027 ####[facility] [address] [place] [address] MCHC (RBC) [Mass/Vol] 33.7 g/dL Normal 31.4-36.0 [facility] Comment on above: Performed By: #### 2 819448, 1482320, 6217007, 76163632, 68439922, 9625234, 04363529, 6458139, 4648838, 7708473 ####[facility] [address] [place] [address] MCV (RBC) [Entitic vol] 90.4 fL Normal 80.0-100.0 [facility] Comment on above: Performed By: #### 2 983630, 0553603, 0735140, 53730577, 57088207, 9431586, 22574308, 8395930, 8711687, 8230837 ####[address] [address] Platelet mean volume (Bld) [Entitic vol] 7.4 fL Normal 6.4-10.8 [facility] Comment on above: Performed By: #### 2 899826, 0069911, 9524912, 08988383, 29518388, 1468987, 42231039, 1403484, 1898683, 2567312 ####[address] [place] [address] Platelets (Bld) [#/Vol] 317.0 E9/L Normal 150.0-500.0 [facility] Comment on above: Performed By: #### 2 202998, 1902991, 1232645, 62576538, 62789185, 1010811, 39540143, 0001110, 0086796, 3926366 ####[address] [place] [address] RBC (Bld) [#/Vol] 3.6 E12/L Low 4.3-5.9 [facility] Comment on above: Performed By: #### 2 274833, 2597033, 1574666, 98061707, 07475088, 4035143, 02895266, 8683875, 7608448, 2207359 ####[facility] [address] [place] [address] WBC corrected for nucl RBC Auto (Bld) [#/Vol] 8.2 E9/L Normal 4.0-11.0 [facility] Comment on above: Performed By: #### 2 352312, 1090081, 9349571, 40729697, 89746076, 6396313, 73488728, 4611472, 3752665, 2213182 ####[facility] [address] [place] [address] Consent for Treatmenton Consent for Treatment [id number]#1 .00TIFF Normal [facility] Creatinineon 02-01-2023 Creatinine [Mass/Vol] 0.5 mg/dL Normal 0.5-1.3 [facility] Comment on above: Performed By: #### 2 552502, 8994831, 9954715, 20160377, 88105344, 9612434, 90051874, 2189149, 5028788, 0395058 ####[facility] [address] [place] [address] Delivery Summaryon 3 Delivery Summary [id number]# 1.00TIFF Normal [facility] Stainon 02-01-2023 FMHV 0 mL Invalid Interpretation Code [facility] Comment on above: Performed By: #### 2 578559, 1844686, 9439710, 60284297, 49017176, 3184818, 85098414, 2420571, 0372616, 2113979 ####[facility] [address] [place] [address] Negative Control Negative Normal [facility] Comment on above: Performed By: #### 2 579317, 8730393, 1509564, 00205802, 53151217, 1965703, 01748128, 7189817, 4926812, 5588642 ####[facility] [address] [place] [address] Fibrinogenon 02-01-2023 Fibrinogen Coag (PPP) [Mass/Vol] 409 mg/dL High 200-393 [facility] Comment on above: Performed By: #### 2 979298, 9015152, 9086940, 22744622, 79410840, 4394184, 93371348, 9244093, 6726984, 2626166 ####[facility] [address] [place] [address] Hep Func Panelon 02-01-2023 Bilirubin.indirect [Mass or moles/Vol] UTC Abnormal 0.1-0.9 [facility] Comment on above: Result Comment: Resu lt verified by Discern Rule. Performed result UTC (Unable to Calculate) was sent as an Alpha code due the inability to calculate a valid numeric value. Performed By: #### 2 626772, 5933692, 1944426, 54558889, 26068733, 9849325, 53579703, 5509720, 8964854, 3957985 ####[facility] [address] [place] [address] Albumin [Mass/Vol] 3.0 g/dL Low 3.3-5.0 [facility] Comment on above: Performed By: #### 2 032483, 3796145, 8989555, 65448677, 98667538, 0706665, 48908166, 8157578, 8251232, 6026506 ####[facility] [address] [place] [address] Albumin/Globulin (S) [Mass conc ratio] 0.8 Low 1.1-2.2 [facility] Comment on above: Performed By: #### 2 542893, 9143370, 4615084, 32844583, 33516507, 6373383, 34270104, 0749987, 6134876, 4101447 ####[facility] [address] [place] [address] ALP [Catalytic activity/Vol] 66 Int._Unit/L Normal 21-98 [facility] Comment on above: Performed By: #### 2 997813, 8341777, 1428290, 00337952, 09741922, 0491656, 01529929, 3861735, 8681726, 8226384 ####[facility] [address] [place] [address] ALT No additional P-5'-P [Catalytic activity/Vol] 16 Int._Unit/L Normal 6-46 [facility] Comment on above: Performed By: #### 2 347022, 6843006, 8677391, 72355004, 68174882, 1462790, 53143375, 8999916, 8262737, 8566700 ####[address] [place] [address] AST [Catalytic activity/Vol] 21 Int._Unit/L Normal 5-43 [facility] Comment on above: Performed By: #### 2 352568, 6656951, 9658991, 44594437, 56228575, 7709214, 51253832, 6743896, 4496901, 2885506 ####[address] [place] [address] Bilirubin [Mass/Vol] 0.3 mg/dL Normal 0.0-1.1 [facility] Comment on above: Performed By: #### 2 195876, 2323487, 0543736, 78025512, 56690032, 2125466, 58597897, 6632944, 1530604, 7807660 ####[address] [place] [address] Globulin (S) [Mass/Vol] 3.8 g/dL Normal 1.4-4.0 [facility] Comment on above: Performed By: #### 2 543423, 2737267, 7329549, 10707525, 34268449, 6809166, 44178325, 7124693, 8112944, 8696110 ####[facility] [address] [place] [address] Protein [Mass/Vol] 6.8 g/dL Normal 6.0-7.8 [facility] Comment on above: Performed By: #### 2 801467, 8129390, 1437280, 77462380, 21884704, 4542868, 07830572, 7304551, 9383538, 0257308 ####[facility] [address] [place] [address] Bilirubin.direct [Mass/Vol] mg/dL Normal 0.1-0.4 [facility] Comment on above: Performed By: #### 2 395361, 5457574, 6330779, 69835652, 83605910, 1295257, 09135371, 7446351, 3728283, 1218574 ####[facility] [address] [place] [address] Inpatient Clinical Summaryon 02-01-2023 Inpatient Clinical Summary [address] [address] Clinical Summary Person Information Name: ANAND HERRERA Joycelyn/[facility] Age: 22 Years : 2000 Sex: Female PCP: Baljit Watts DO Marital Status: Single Race: White Ethnicity: Non- or Language: Persian Visit Id: Visit Reason: Speciality: Acuity: Obs Enc Type: OB Triage Med Service: Obstetrics Arrival: 01/31/2023 22:47:02 Discharge: 02/01/2023 02:47:00 Dispo Type: Home (Routine DC) Address: [address] [place] [id number] Provider Notes: Diagnosis: Problems Active (01/31/2023) Iron [...] Referring Physician: Follow up: With: Address: When: [facility], [address] [place] [address] , [place] [address] Busi (more content not included)... Normal [facility] Inpatient Patient Summaryon 02-01-2023 Inpatient Patient Summary [address] [address] Patient Discharge Instructions PERSON INFORMATION [...] test results: Follow up: With: Address: When: [facility], [address] [place] [address] , [place] [address] Business (1) In 8 days 02/09/2023 Comments: [...] to find a nearby participating provider. Comment: DIAZ Reid CARLEAH E, have received the attached patient education materials/instruction s and have verbalized understanding. Patient Signature Date Clinican/Nurse Signature Date MEDICATION LIST Medications to Continue Taking That Have Changed Other Medications START: lisdexamfetamine (Vyvanse 40 mg oral capsule) 1 Capsules By Mouth once a day (in the morning). Last Dose: ____Next Dose: ____ STOP: lisdexamfetamine (Vyvanse 60 mg oral capsule) 1 Capsules By Mouth once a day (in the morning). Medications to Continue with No Changes Other Medications amoxicillin (amoxicillin 500 mg Cap) 1 Capsules By Mouth every 12 hours. Refills: 0. Last Dose: ____Next Dose: ____ aspirin (aspirin 81 mg Chew Tab) 1 Tablets By Mouth every day. Last Dose: ____Next Dose: ____ multivitamin, ( Multivitamins) 1 Tablets By Mouth every day. Last Dose: ____Next Dose: ____ pantoprazole Last Dose: ____Next Dose: ____ progesterone (progesterone 200 mg vaginal suppository) 1 Suppositories Vaginal every day. Last Dose: ____Next Dose: ____ Pharmacy Information: [facility] PATIENT EDUCATION INFORMATION [...] may feel (more content not included)... Normal [facility] Insurance Correspondenceon 1 Insurance Correspondence [id number]# 1.00TIFF Normal [facility] Lyteson 02-01-2023 Anion gap [Moles/Vol] 5 mmol/L Low 6-16 [facility] Comment on above: Performed By: #### 2 748227, 0882513, 8219887, 95910995, 35364364, 5042728, 48949620, 8575828, 9697058, 0812219 ####[facility] [address] [place] [address] Chloride [Moles/Vol] 110 mmol/L Normal 101-111 [facility] Comment on above: Performed By: #### 2 141891, 9034652, 4608787, 65468277, 90445695, 4059816, 49397674, 0492033, 1243504, 2635090 ####[facility] [address] [place] [address] CO2 [Moles/Vol] 25 mmol/L Normal 21-31 [facility] Comment on above: Performed By: #### 2 684906, 4452306, 0775326, 50862847, 55044991, 8567235, 55171447, 7251315, 6832065, 9790338 ####[facility] [address] [place] [address] Potassium [Moles/Vol] 3.5 mmol/L Normal 3.5-5.3 [facility] Comment on above: Performed By: #### 2 123936, 1221554, 5651254, 67302859, 96273038, 7446635, 02734334, 2256687, 5303908, 4734557 ####[facility] [address] [place] [address] Sodium [Moles/Vol] 136 mmol/L Normal 135-145 [facility] Comment on above: Performed By: #### 2 607555, 1534641, 3626152, 96006190, 66385561, 4817095, 89213176, 2892526, 1395467, 3396760 ####[facility] [address] [place] [address] PT & PTTon 02-01-2023 aPTT Coag (PPP) [Time] 26.9 second(s) Normal 25.1-36.5 [facility] Comment on above: Result Comment: Para meter [...] the same coagulation reagent and instrumentation [place] [facility]. Currently there are no coagulation studies available worldwide for children to 14 days, and no normal ranges. Heparin therapeutic range (represented by Anti-Factor Xa activity of 0.2 - 0.4 U/mL) corresponds to PTT of 56.6 - 109.0 sec. Performed By: #### 2 389617, 8487848, 1859366, 09215401, 38194760, 0957012, 25292687, 3253278, 9217608, 6525673 ####[facility] [address] [place] [address] INR Coag (PPP) [Relative time] 0.9 {INR} Invalid Interpretation Code [facility] Comment on above: Result Comment: INR results are specifically intended to assess patients stabilized on long-term Anticoagulation therapy suggested INR?s ?Less Intensive Anticoagulation? 2.0 ? 3.0 Conventional Range 3.0 ? 4.5 Performed By: #### 2 404556, 2160443, 4228409, 19398386, 63805891, 5661439, 16678043, 3006480, 9508865, 0926040 ####[facility] [address] [place] [address] PT Coag (PPP) [Time] 9.7 second(s) Normal 9.4-12.5 [facility] Comment on above: Result Comment: 15 [...] the same coagulation reagent and instrumentation [place] [facility] Currently there are no coagulation studies available worldwide for children to 14 days, and no normal ranges. Performed By: #### 2 470055, 1881149, 8370490, 16347770, 05814685, 7209013, 69065636, 9048879, 2108320, 2123169 ####[facility] [address] [place] [address] U Drug Screenon 02-01-2023 U Amph Scr Negative Normal Negative [facility] Comment on above: Result Comment: Nega tive Cutoff: <1000 ng/mL Performed By: #### 1 1591484, 599841069, 9185572, 7441352 ####[facility] [address] [place] [address] U Merced Scr Negative Normal Negative [facility] Comment on above: Result Comment: Nega tive Cutoff: <200 ng/mL Performed By: #### 1 0421471, 532700292, 4190712, 5901959 ####[facility] [address] [place] [address] U Benzodia Scr Negative Normal Negative [facility] Comment on above: Result Comment: Nega tive Cutoff: <200 ng/mL Performed By: #### 1 2387607, 837205048, 7590148, 8070821 ####[facility] [address] [place] [address] U Cannab Scr Negative Normal Negative [facility] Comment on above: Result Comment: Nega tive Cutoff: <50 ng/mL Performed By: #### 1 6522773, 077539149, 2950300, 3758808 ####[facility] [address] [place] [address] U Cocaine Scr Negative Normal Negative [facility] Comment on above: Result Comment: Nega tive Cutoff: <300 ng/mL Performed By: #### 1 4100339, 932938654, 9059231, 9940248 ####[facility] [address] [place] [address] U Opiate Scr Negative Normal Negative [facility] Comment on above: Result Comment: Nega tive Cutoff: <300 ng/mL Performed By: #### 1 7860964, 965479076, 6566050, 2647125 ####[facility] [address] [place] [address] U PCP Scr Negative Normal Negative [facility] Comment on above: Result Comment: Nega tive Cutoff: <25 ng/mL These drug screen results are to be used for medical (i.e., treatment) purposes only. Unconfirmed drug screening results must not be used for non-medical purposes (e.g., employment testing, legal testing). Performed By: #### 1 5442605, 617698846, 4650791, 5792419 ####[facility] [address] [place] [address] UA With Cult Reflexon 2022 Bacteria LM Ql (Urine sed) TRACE Normal Trace [facility] Comment on above: Performed By: #### 1 9552524, 378803558, 1633133, 0565144 ####[facility] [address] [place] [address] Bilirubin Ql (U) Negative Normal Negative [facility] Comment on above: Performed By: #### 1 8538206, 537206969, 9246481, 5901581 ####[address] [address] Clarity (U) CLEAR Normal Clear [facility] Comment on above: Performed By: #### 1 3410773, 725231406, 1793403, 6600174 ####[address] [address] Color (U) YELLOW Normal Yellow [facility] Comment on above: Performed By: #### 1 8418386, 648370936, 8506020, 7077549 ####[address] [address] Epithelial cells.squamous LM.HPF (Urine sed) [#/Area] 0-2 Normal 0-[address] [facility] Comment on above: Performed By: #### 1 0251239, 090938315, 5562511, 2293433 ####[facility] [address] [place] [address] Glucose Test strip (U) [Mass/Vol] Negative Normal Negative [facility] Comment on above: Performed By: #### 1 5162847, 008898254, 2148614, 2369461 ####[facility] [address] [place] [address] Hemoglobin Ql (U) 3+ Abnormal Negative [facility] Comment on above: Performed By: #### 1 1248807, 180537027, 6668843, 4906822 ####[facility] [address] [place] [address] Ketones (U) [Mass/Vol] Negative Normal Negative [facility] Comment on above: Performed By: #### 1 2939691, 162741803, 3306536, 1684431 ####[address] [address] Adin.plasma/Adin .RBC (Bld) [Mass ratio] 0-3 Normal 0-3 [facility] Comment on above: Performed By: #### 1 9225147, 513588024, 4873969, 5392010 ####[address] [address] Nitrite Ql (U) Negative Normal Negative [facility] Comment on above: Performed By: #### 1 8989046, 231145117, 8252288, 8961308 ####[address] [address] pH (U) 7.0 [pH] Invalid Interpretation Code 5.0-9.0 [facility] Comment on above: Performed By: #### 1 2455635, 447295809, 9789070, 2005053 ####[address] [address] Protein (U) [Mass/Vol] Negative Normal Negative [facility] Comment on above: Performed By: #### 1 3942631, 819676894, 7335475, 0274309 ####[address] [address] Specific gravity (U) [Rel density] 1.010 Invalid Interpretation Code 1.005-1.030 [facility] Comment on above: Performed By: #### 1 0563134, 600694414, 9545196, 7340386 ####[address] [address] Type of Urine collection method Clean Catch Normal [facility] Comment on above: Performed By: #### 1 [id number], [id number], [id number], [id number] ####[facility] [address] [place] [address] Urobilinogen Qn (U) 0.2 {Debbie'U}/dL Normal 0.0-1.0 [facility] Comment on above: Performed By: #### 1 [id number], [id number], [id number], [id number] ####[facility] [address] [place] [address] WBC Auto Ql (U) 1+ Abnormal Negative [facility] Comment on above: Performed By: #### 1 [id number], [id number], [id number], [id number] ####[facility] [address] [place] [address] WBC LM.HPF (Urine sed) [#/Area] 6-15 Abnormal 0-5 [facility] Comment on above: Performed By: #### 1 [id number], [id number], [id number], [id number] ####[facility] [address] [place] [address] Uric Acidon 02-01-2023 Urate [Mass/Vol] 3.0 mg/dL Normal 2.2-7.4 [facility] Comment on above: Performed By: #### 2 [id number], [id number], [id number], [id number], [id number], [id number], [id number], [id number], [id number], [id number] ####[facility] [address] [place] [address] eGFRon 02-01-2023 GFR/1.73 sq M.predicted among non-blacks MDRD (S/P/Bld) [Vol rate/Area] 135 mL/min/1.73 m2 Normal >=59 [facility] Comment on above: Order Comment: Order added by Discern Expert. Result Comment: Cad Manager jono kidney disease could be indicated at eGFR's of less than 60 mL/min/1.73m2. Kidney failure is indicated at less than 15 mL/min/1.73m2. Performed By: #### 2 [id number], [id number], [id number], [id number], [id number], 7311822, 45712577, 6340212, 5163983, [id number] ####[facility] [address] [place] [address] ED Note-Physicianon 12-13-19 ED Note-Physician Basic Information Time Seen: Dereck DOS SANTOS Lucero DiehlIrvin 10/14/2022 12:26 Chief Complaint Patient presents wth [...] other chart put together by the physician psychologist research assistant. 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 Normal [facility] Comment on above: Result Comment: Elec tronically [...] 29.9 48% 278 31% Impression ========= Anand Herrera presents for a targeted anatomic survey. - biometry is consistent with the stated gestational age - Detailed anatomic evaluation of the brain/ventricles, face, heart/outflow tracts and chest anatomy, abdominal organ specific anatomy, number/length/archite cture of limbs and detailed evaluation of the [...] EFW (oz) 10 oz EFW by: Hadlock (MHL-DL-JN-FL) Extended Supervisor [employer] 7.6 mm CM 4.4 mm 35% Nicolaides [...] Normal LVOT view: Normal 3-vessel view: Normal 7-kexmib-mhlukow view: Normal Heart / Thorax Situs: situs [...] know sex (more content not included)... Normal [facility] ED Note-Physicianon 10-18-19 ED Note-Physician Basic Information [...] concentrating, paranoia, anhedonia, lack of energy, jessica Hematologic/lymphatic : Denies any purpura, petechiae, excessive bleeding, bruising [...] the right lateral foot from electric jesus [facility] Data External documents reviewed: Not applicable [...] day(s), # 20 tab(s), Refills(s) 0, Pharmacy: [facility]/pharmacy #[id number], 164, cm, 10/14/22 12:30:00 EDT, Height/Length Dosing, 66, kg, 10/14/22 12:30:00 EDT, Weight Dosing lidocaine, 100 mg, 10 mL, Injection, TransDermal, Once, Stop date 10/14/22 13:02:00 EDT, STAT, Start date (more content not included)... Normal [facility] Comment on above: Result Comment: Elec tronically Signed By: Lucero Harden PA-C\.br\Date and Time Signed: 10/15/22 00:18 EDT\.br\Electronically Co-Signed By: Nakul Cannon DO\.br\Date and Time Co-Signed: 10/17/22 07:09 EDT Consent for Treatmenton 09-26 Consent for Treatment [id number] .[id number]:127 Normal [facility] Discharge Instructionson Discharge Instructions [id number] #[id number]:127 Normal [facility] ED Clinical Summaryon 2022 ED Clinical Summary [place] [id number] ED Clinical Summary Person Information Name: ANAND HERRERA Marti Joycelyn/[facility] Age: 22 Years : 2000 Sex: Female Language: Persian PCP: Baljit Watts DO Marital Status: Single [...] 10/14/2022 13:55:19 10/14/2022 13:55:19 10/14/2022 13:55:19 ADDRESS: [address] [place], [place] [address]i [facility] [id number] PHYS DOC NOTES: MEDICAL INFORMATION: Prescriptions Given: Medications to Continue Taking That Have Changed [facility]/pharmacy #[id number], [address] [place] [id number], [phone] START: amoxicillin (amoxicillin 875 mg Tab) 1 [...] Instructions: Sutures, Azalia, or Adhesive Wound Closure, Qqhu-ar-Oqsp Follow up: With: Address: When: Baljit Montenegro, [facility] [address] [facility] [place] [address] Business (1) In 3 days 10/17/2022 DIAGNOSIS: 1:Laceration of right foot Normal [facility] ED Patient Education Noteon 10-14-2022 ED Patient Education Note Dermatology Sutures, Jasper, or Adhesive Wound Closure Doctors use stitches [...] the edges of the wound together. ? [place] the glue onto your skin. You may [...] skin reaction that can lead to infection. Jasper Jasper are often used to close cuts from surgery (incisions). To use azalia, your doctor will: ? Hold the edges of your wound close together. ? Place a staple across the wound. ? Use a tool to secure the staple to the skin. ? Repeat this with as many azalia as needed. Azalia are faster to use than sutures, and they cause less reaction from your skin. Jasper need to be taken out using a tool that bends the azalia away from your skin. Follow these instructions at home: Medicines ? Take inkc-uny-fwdbguc and prescription medicines only as told by [...] cannot use soap and water, use hand taxation inspector. ? Do not try to take off [...] not i (more content not included)... Normal [facility] ED Patient Summaryon 023 ED Patient Summary [place] [id number] Patient Discharge Instructions Person Information Name: ANAND HERRERA Age: 22 Years Arrival Date: 10/14/2022 12:18:27 Discharge Diagnosis: 1:Laceration of right foot Primary Care Physician: Baljit Watts DO Provider Information Primary Provider: Nakul Cannon DO Advanced Petrography Teacher:None The exam and treatment you received in the Emergency Department were for an urgent problem and are not intended as complete care. It is important that you follow up with a doctor, nurse practitioner, or physician?s psychologist research assistant for ongoing care. If your symptoms become worse or you do not improve as expected and you are unable to reach your usual health care provider, you should return to the Emergency Department. We are available 24 hours a day. ANAND HERRERA has been given the following list of patient education materials, prescriptions and follow-up instructions: Follow-up Instructions: With: Address: When: Baljit Link Keira Montenegro, [address] [place] [address] Business (1) In 3 days 10/17/2022 In the event that this physician does not participate in your insurance network, please consult with your insurance company to find a nearby participating provider. Patient Education Materials: Sutures, Azalia, or Adhesive Wound Closure, Rfpt-ap-Ouwd A MESSAGE TO ALL PATIENTS REGARDING OPIOIDS PRESCRIPTION OPIOIDS: WHAT YOU NEED TO KNOW Prescription opioids can be used to help relieve ddjqvbak-pe-xlymnn pain and are often prescribed following a [...] guidance from the Food and Drug Administration (www.fda.gov/Drugs/Re sourcesForYou). ? Visit www.cdc.gov/drugoverd ose to learn about the risks of opioids abuse and overdose. ? If you believe you may be struggling with addiction, tell your health transitional care manager and ask for guidance or call SAMHSA?S National Helpline at 7-585-3 (more content not included)... Normal [facility] OB NT (Nuchal Translucency)o n 09-26-2022 OB [...] sac with a live fetus - [place] rump length is consistent with given OTF [...] Extended Nasal bone: present Anatomy Heart: Normal [place] and Situs. Stomach: Visible, with correct situs. [...] Electronically signed by: JESS FELDMAN MD Normal [facility] HEP B SURFACE ANTIGEN SCREEN on 09-05-2022 HBsAg Screen Negative Normal Negative [facility] Comment on above: Performed By: #### H BSANS #### [facility] [address] [place] [address] [address] Stoney Rodriguez HEPATITIS C VIRUS AB W/ REFL EX QUANTon 09-05-2022 HCV AB Non-Reactive Normal Non Reactive [facility] Comment on above: Performed By: #### H CVPCRR #### [facility] [address] [place] [address] [address] Stoney Rodriguez Interpretation: Comment Normal [facility] Comment on above: Result Comment: Not infected with HCV unless early or acute infection is suspected (which may be delayed in an immunocompromised individual), or other evidence exists to indicate HCV infection. Performed By: #### H CVPCRR #### [facility] [address] [place] [address] [address] Stoney Rodriguez HIV 1 AND 2 WITH REFLEXon HIV Screen 4th Generation wRfx Non-Reactive Normal Non Reactive [facility] Comment on above: Result Comment: HIV Negative HIV-1/HIV-2 antibodies and HIV-1 p24 antigen were NOT detected. There is no laboratory evidence of HIV infection. Performed By: #### T NS #### [facility] [address] [place] [address] Dr. Stoney Rodriguez RPR QUANTon 09-05-2022 Rapid Plasma Reagin, Quant Non-Reactive Normal NonRea<1:1 [facility] Comment on above: Result Comment: Plea se Note: This test does not meet current guidelines for screening and diagnosis of syphilis. This test is intended for following treatment response in patients being treated for syphilis infection. To screen for syphilis infection, a reflex cascade that includes both RPR and a treponema-specific assay should be utilized, such as Treponema pallidum (Syphilis) Screening [place] (996602) or Rapid Plasma Reagin (RPR) Test With Reflex to Quantitative RPR and Confirmatory Treponema pallidum Antibodies (852322). Performed By: #### R PRQ #### [facility] [address] [place] [address] Dr. Stoney Rodriguez RUBELLA AB IGGon 09-05-2022 Rubella Antibodies, IgG 11.40 index Normal Immune >0.99 [facility] Comment on above: Result Comment: Non- immune <0.90 Equivocal 0.90 - 0.99 Immune >0.99 Performed By: #### R UBIGG #### [facility] [address] [place] [address] Dr. Stoney Rodriguez BOX TEST SENT OUTon 09-05-19 23 SENT TO REF LAB 09/04/22 Normal [facility] Comment on above: Performed By: #### B OX #### [facility] [address] [place] [address] Dr. Stoney Rodriguez CBC AUTO DIFFon 09-04-2022 BASO # 0.0 103/ul Normal 0.0-0.1 [facility] Comment on above: Performed By: #### C BC #### [facility] [address] [place] [address] Dr. Stoney Rodriguez Basophils/100 WBC (Bld) 0.4 % Normal 0.2-2.0 [facility] Comment on above: Performed By: #### C BC #### [facility] [address] [place] [address] Dr. Stoney Rodriguez EO # 0.1 103/ul Normal 0.0-0.7 [facility] Comment on above: Performed By: #### C BC #### [facility] [address] [place] [address] Dr. Stoney Rodriguez Eosinophils/100 WBC (Bld) 0.7 % Critically low 0.9-7.0 [facility] Comment on above: Performed By: #### C BC #### [facility] [address] [place] [address] Dr. Stoney Rodriguez Erythrocyte distribution width (RBC) [Ratio] 14.5 % Normal 11.0-15.0 [facility] Comment on above: Performed By: #### C BC #### [facility] [address] [place] [address] Dr. Stoney Rodriguez Hematocrit (Bld) [Volume fraction] 36.7 % Normal 36.0-48.0 [facility] Comment on above: Performed By: #### C BC #### [facility] [address] [place] [address] Dr. Stoney Rodriguez Hemoglobin (Bld) [Mass/Vol] 11.9 g/dL Critically low 12.0-16.0 [facility] Comment on above: Performed By: #### C BC #### [facility] [address] [place] [address] Dr. Stoney Rodriguez IG # 0.03 10e3/ul Normal 0.00-0.03 [facility] Comment on above: Performed By: #### C BC #### [facility] [address] [place] [address] Dr. Stoney Rodriguez IG % 0.4 % Normal 0.0-0.5 [facility] Comment on above: Performed By: #### C BC #### [facility] [address] [place] [address] Dr. Stoney Rodriguez LYMPH # 2.0 103/ul Normal 1.2-3.8 [facility] Comment on above: Performed By: #### C BC #### [facility] [address] [place] [address] Dr. Stoney Rodriguez Lymphocytes/100 WBC (Bld) 23.3 % Normal 20.5-60.0 [facility] Comment on above: Performed By: #### C BC #### [facility] [address] [place] [address] Dr. Stoney Rodriguez MANUAL DIFF REQ NO Normal [facility] Comment on above: Performed By: #### C BC #### [facility] [address] [place] [address] Dr. Stoney Rodriguez MCH (RBC) [Entitic mass] 28.7 pg Normal 26.7-34.0 [facility] Comment on above: Performed By: #### C BC #### [facility] [address] [place] [address] Dr. Stoney Rodriguez MCHC (RBC) [Mass/Vol] 32.4 g/dL Normal 29.9-35.2 [facility] Comment on above: Performed By: #### C BC #### [facility] [address] [place] [address] Dr. Stoney Rodriguez MCV (RBC) [Entitic vol] 88.6 fL Normal 81.0-99.0 [facility] Comment on above: Performed By: #### C BC #### [facility] [address] [place] [address] Dr. Stoney Rodriguez MONO # 0.5 103/ul Normal 0.3-0.8 [facility] Comment on above: Performed By: #### C BC #### [facility] [address] [place] [address] Dr. Stoney Rodriguez Monocytes/100 WBC (Bld) 6.2 % Normal 1.7-12.0 [facility] Comment on above: Performed By: #### C BC #### [facility] [address] [place] [address] Dr. Stoney Rodriguez NEUT # 5.9 103/ul Normal 1.4-6.5 [facility] Comment on above: Performed By: #### C BC #### [facility] [address] [place] [address] Dr. Stoney Rodriguez Neutrophils/100 WBC (Bld) 69.0 % Normal 43.0-75.0 [facility] Comment on above: Performed By: #### C BC #### [facility] [address] [place] [address] Dr. Stoney Rodriguez Platelet mean volume (Bld) [Entitic vol] 9.7 fL Normal 9.5-13.5 [facility] Comment on above: Performed By: #### C BC #### [facility] [address] [place] [address] Dr. Stoney Rodriguez PLT 378 103/ul Normal 150-450 [facility] Comment on above: Performed By: #### C BC #### [facility] [address] [place] [address] Dr. Stoney Rodriguez RBC 4.14 106/ul Critically low 4.20-5.40 [facility] Comment on above: Performed By: #### C BC #### [facility] [address] [place] [address] Dr. Stoney Rodriguez WBC 8.5 103/ul Normal 4.0-11.0 [facility] Comment on above: Performed By: #### C BC #### [facility] [address] [place] [address] Dr. Stoney Rodriguez CULTURE URINEon 09-04-2022 CULTURE URINE Culture Observations : NO GROWTH. Normal [facility] Comment on above: Performed By: #### U RCX #### [facility] [address] [place] [address] Dr. Stoney Rodriguez GLYCOHEMOGLOBIN A1Con 2022 ADA RECOMMENDATION SEE BELOW Normal [facility] Comment on above: Result Comment: ADA RECOMMENDED LIMIT 4.0 - 6.0 ADA THERAPEUTIC TARGET < 7.0 ACTION SUGGESTED > 7.0 Performed By: #### A 1C #### [facility] [address] [place] [address] Dr. Stoney Rodriguez Glucose [Mass/Vol] 94 mg/dL Normal [facility] Comment on above: Performed By: #### A 1C #### [facility] [address] [place] [address] Dr. Stoney Rodriguez HbA1c (Bld) [Mass fraction] 4.9 % Normal 4.5-6.2 [facility] Comment on above: Performed By: #### A 1C #### [facility] [address] [place] [address] Dr. Stoney Rodriguez TSHon 09-04-2022 TSH 0.653 uIU/mL Normal 0.358-3.740 [facility] Comment on above: Performed By: #### T SH #### [facility] [address] [place] [address] Dr. Stoney Rodriguez TYPE AND SCREENon 09-04-2022 TYPE AND SCREEN Negative Normal [facility] Comment on above: Performed By: #### T NS #### [facility] [address] [place] [address] Dr. Stoney Rodriguez US PREG TVon 04-20-2023 US PREG TV EXAMINATION: US PREG TV [...] by: BILLIE SMITH Date: 2022-08-14 16:07 Normal [facility] CHEMISTRYOrdered By: Ida Mcfarland on 12-19-2021 Anion gap [Moles/Vol] 11 mmol/L Normal 6 - 16 mEq/L [facility] Remisol Calcium [Mass/Vol] 8.9 mg/dL Normal 8.9 - 11. 1 mg/dL [facility] Chloride [Moles/Vol] 106 mmol/L Normal 101 - 1 11 mmol/L [facility] CO2 [Moles/Vol] 22 mmol/L Normal 21 - 31 mmol/L [facility] Creatinine [Mass/Vol] 0.9 mg/dL Normal 0.5 - 1.3 mg/dL [facility] Glucose [Mass/Vol] 96 mg/dL Normal 55 - 199 mg/dL [facility] Potassium [Moles/Vol] 3.8 mmol/L Normal 3.5 - 5.3 mmol/L [facility] Sodium [Moles/Vol] 135 mmol/L Normal 135 - 145 mmol/L [facility] Urea nitrogen [Mass/Vol] 18 mg/dL Normal 5 - 21 mg/dL [facility] Urea nitrogen/Creatinine [Mass ratio] 20 mg/mg Normal 10 - 20 [facility]isol CHEMISTRYOrdered By: SYSTEM SYSTEM on 12-19-2021 GFR/1.73 sq M.predicted among blacks MDRD (S/P/Bld) [Vol rate/Area] mL/min/1.73 m2 Normal >=59mL/min/1 .73 m2 [facility] Chem S GFR/1.73 sq M.predicted among non-blacks MDRD (S/P/Bld) [Vol rate/Area] mL/min/1.73 m2 Normal >=59mL/min/1 .73 m2 [facility] Chem S COAGULATIONOrdered By: Randall Mcfarland on 12-19-2021 aPTT Coag (PPP) [Time] 30.1 s Normal 25.1 - 36.5 second(s) FT Auto Coag INR Coag (PPP) [Relative time] 0.9 {INR} Invalid Interpretation Code [facility] Auto Coag PT Coag (PPP) [Time] 9.9 s Normal 9.4 - 1 2.5 second(s) [facility] Auto Coag HEMATOLOGYOrdered By: SYSTEM SYSTEM on 12-19-2021 Basophils/100 WBC (Bld) 0.5 % Normal 0.0 - 2.0 % [facility] HemeAutoSS Basophils/Leukocytes Auto (Bld) [Pure # fraction] 0.0 E9/L Normal 0.0 - 0.2 E9/L [facility] HemeAutoSS Eosinophils/100 WBC (Bld) 1.2 % Normal 0.0 - 8.0 % [facility] HemeAutoSS Eosinophils/Leukocytes Auto (Bld) [Pure # fraction] 0.1 E9/L Normal 0.0 - 0.5 E9/L [facility] HemeAutoSS Lymphocytes/100 WBC (Bld) 36.3 % Normal 14.0 - 50.0 % [facility] HemeAutoSS Lymphocytes/Leukocytes Auto (Bld) [Pure # fraction] 2.8 E9/L Normal 1.0 - 4.0 E9/L [facility] HemeAutoSS Monocytes/100 WBC (Bld) 8.6 % Normal 4.0 - 14.0 % [facility] HemeAutoSS Monocytes/Leukocytes Auto (Bld) [Pure # fraction] 0.7 E9/L Normal 0.2 - 1.0 E9/L [facility] HemeAutoSS Neutrophils/100 WBC (Bld) 53.4 % Normal 36.0 - 75.0 % [facility] HemeAutoSS Neutrophils/Leukocytes Auto (Bld) [Pure # fraction] 4.1 E9/L Normal 2.0 - 7.5 E9/L [facility] HemeAutoSS HEMATOLOGYOrdered By: Sebastián Mcfarland on 12-19-2021 Erythrocyte distribution width (RBC) [Ratio] 15.2 % High 10.9 - 14.2 % [facility] HemeAutoSS Hematocrit (Bld) [Volume fraction] 34.8 % Normal 34.0 - 46.0 % [facility] HemeAutoSS Hemoglobin (Bld) [Mass/Vol] 11.4 g/dL Low 12.0 - 16.0 gm/dL [facility]eAutoSS MCH (RBC) [Entitic mass] 27.9 pg Normal 27.0 - 34.0 pg [facility]eAuto[facility] MCHC (RBC) [Mass/Vol] 32.7 g/dL Normal 31.4 - 36.0 gm/dL [facility]eAuto[facility] MCV (RBC) [Entitic vol] 85.4 fL Normal 80.0 - 100.0 fL [facility]eAutoSS Platelet mean volume (Bld) [Entitic vol] 7.8 fL Normal 6.4 - 10.8 fL [facility] HemeAutoSS Platelets (Bld) [#/Vol] 361.0 E9/L Normal 150.0 - 500.0 E9/L [facility] RBC (Bld) [#/Vol] 4.1 E12/L Low 4.3 - 5.9 E12/L [facility]eAuto[facility] WBC corrected for nucl RBC Auto (Bld) [#/Vol] 7.6 E9/L Normal 4.0 - 11.0 E9/L [facility] HemeAutoSS SEROLOGYOrdered By: Ida Mcfarland on 12-19-2021 Beta hCG Ql Negative (12/19/21 2:12 AM) Normal [facility] Man Sero CULTURE URINEon 04-28-2020 CULTURE URINE CULTURE URINE --> Status: F Normal urogenital praneeth present. 1 Organism Escherichia coli 10,000-50,000 CFU/ml 1 Organism Antibiotic Result Intrp Ampicillin(JAI) >= 32 R Cefazolin(JAI) <= 4 S Ceftriaxone(JAI) <= 1 S Cefepime(JAI) <= 1 S Aztreonam(JAI) <= 1 S Amoxicillin/Clavulani c Acid(JAI) 8 S Ampicillin/Sulbactam( JAI) >= 32 R Pip/Tazobactam(JAI) <= 4 S Meropenem(JAI) <= 0.25 S Ciprofloxacin(JAI) <= 0.25 S Trimeth/Sulfa(JAI) <= 20 S Nitrofurantoin(JAI) <= 16 S Gentamicin(JAI) <= 1 S Amikacin(JAI) 4 S Normal [facility] Comment on above: Performed By: #### C /UR ####[address] [id number] [id number] Culture, Urineon 04-28-2020 Bacteria identified Cx Nom (U) 10,000-50,000 CFU/ml [place], [place] Bacteria identified Cx Nom (U) Normal urogenital praneeth present. Abnormal [facility], [place] Bacteria identified Cx Nom (U) Escherichia coli Abnormal [facility] [place] Interpretation and review of laboratory results Abnormal [facility] [place], [place] Test Performed by [address] [address] [place], [place] Hemoglobinon 04-27-2020 Hemoglobin (Bld) [Mass/Vol] 7.1 g/dL Low 11.7-16.0 [facility] Comment on above: Performed By: #### H EMGB #### [address] [address] Hemoglobin (Bld) [Mass/Vol] 7.1 g/dL Low 11.7 - 16 g/dL [place], [place] Interpretation and review of laboratory results Abnormal [facility] [place], [place] Test Performed by [facility], [address] [place] [id number] [place] [address] Group B Strep Screen PCRon 1 Group B Strep Screen PCR Group B Strep Screen PCR --> Status: F NEGATIVE Expected Result: [...] Methodology - Real Time PCR (Cepheid) Normal [facility] Comment on above: Performed By: #### [facility] ####[place] [address] [place] [address] Group B Strep, PCRon 020 Group B Strep Screen PCR NEGATIVE Expected Result: Negative CDC guidelines for prevention of Group B Strep disease recommends collection of both vaginal and rectal specimens for optimal recovery of GBS. Methodology - Real Time PCR (Cepheid) [place], [place] Test Performed by [facility], [address] [place] [address] Op Noteon 04-26-2020 Op Note PATIENT: ANAND HERRERA ADMISSION DATE: 04/25/2020 SURGERY DATE: 04/26/2020 DATE [...] She also did have a TAP block. Apron Man: Dr. Benjamin. Replacement: 1500 cc of crystalloid. Urine Output: 25 cc of clear urine. Estimated Blood Loss: 700 with QBL of 730. Drains: Alonzo. Specimens: Placenta. History: The patient is a [...] anesthesia. She was then placed supine, had Alonzo catheter inserted, and was then prepped and [...] 1500 cc of crystalloid. Diskriter Job ID: [id number] Ozzy Chowdhury MD DOD:04/26/2020 07:56 A JAKUB/kimmy DOT:04/26/2020 10:55 A Job Number: [id number] Document Number: [id number] cc: Ozzy Chowdhury MD [address] [facility]. [facility] [address] Fariha Matos, [address] [facility] [address] Normal [facility] C. Trachomatis / N. Gonorrho eae, DNA Probeon 04-25-2020 C. trachomatis DNA ARCHANA+probe Ql (Genital specimen) NOT Detected Chlamydia trachomatis Nucleic Acid NOT Detected by DNA Amplification using the Cepheid System. Culture is the only recommended test in medical-legal cases such as suspected child abuse or molestation. [place], [place] N. gonorrhoeae DNA ARCHANA+probe Ql (Unsp spec) NOT Detected Neisseria gonorrhoeae Nucleic Acid NOT Detected by DNA Amplification using the Cepheid System. Culture is the only recommended test in medical-legal cases such as suspected child abuse or molestation. [place] Test Performed by [facility], [address] [place] [id number] [place], [place] CBCon 04-25-2020 Erythrocyte distribution width (RBC) [Ratio] 18.2 % High 11.5 - 14.5 % [place] Hematocrit (Bld) [Volume fraction] 30.6 % Low 35 - 47 % [place] Hemoglobin (Bld) [Mass/Vol] 9.7 g/dL Low 11.7 - 16 g/dL [place] Interpretation and review of laboratory results Abnormal [place] MCH (RBC) [Entitic mass] 26.2 pg 26 - 34 pg [place] MCHC (RBC) [Mass/Vol] 31.9 % Low 32 - 36 % [place], [place] MCV (RBC) [Entitic vol] 82.2 fL 79 - 98 fL [place] Platelet mean volume (Bld) [Entitic vol] 8.1 fL 7.4 - 10.4 fL [place] Platelets (Bld) [#/Vol] 249 10*3/uL 140 - 440 10*3/uL [place] RBC (Bld) [#/Vol] 3.72 10*6/uL Low 3.8 - 5.2 10*6/uL [place] WBC (Bld) [#/Vol] 13.3 10*3/uL High 3.6 - 10.7 10*3/uL [place] Test Performed by [address] [address] [place] CREATININE, RANDOM URINEon 1 Creatinine (U) [Mass/Vol] 66.8 mg/dL No Range [place] Chlamydia and GC PCR Panelon 04-25-2020 Chlamydia and GC PCR Panel Chlamydia trachomatis PCR --> Status: F NOT Detected Chlamydia trachomatis Nucleic Acid NOT Detected by DNA Amplification using the wedgiesid System. Culture is the only recommended test [...] NOT Detected by DNA Amplification using the Ceph[employer].auid System. Culture is the only recommended test in medical-legal cases such as suspected child abuse or molestation. Neisseria gonorrhoeae Nucleic Acid NOT Detected by DNA Amplification using the [employer] System. Culture is the only recommended test in medical-legal cases such as suspected child abuse or molestation. Normal [facility] Comment on above: Performed By: #### C TNGP ####[facility] [place], [place] Comp Metabolic Panelon 04-25 Calcium [Mass/Vol] 8.5 mg/dL Normal 8.4-10.4 [facility] Comment on above: Performed By: #### P T/AP, CMP3, HEMOG, FIBGN #### [facility] [address] [place], [place] Glucose [Mass/Vol] 97 mg/dL Normal 70-100 [facility] Comment on above: Performed By: #### P T/AP, CMP3, HEMOG, FIBGN #### [facility] [address] [place], [place] ALP [Catalytic activity/Vol] 114 U/L Normal 38-126 [facility] Comment on above: Result Comment: Slig htly hemolysed, interpret with caution. Performed By: #### P T/AP, CMP3, HEMOG, FIBGN #### [facility] [address] [place], [place] ALT [Catalytic activity/Vol] 19 U/L Normal 0-34 [facility] Comment on above: Result Comment: The ALT test is performed by an updated assay method. Please note that the reference intervals have been changed and are now sex specific. Performed By: #### P T/AP, CMP3, HEMOG, FIBGN #### [facility] [address] [place], [place] Anion Gap 6 Normal [facility] Comment on above: Performed By: #### P T/AP, CMP3, HEMOG, FIBGN #### [facility] [address] [place], [place] AST [Catalytic activity/Vol] 39 U/L Normal 15-46 [facility] Comment on above: Result Comment: Slig htly hemolysed, interpret with caution. Performed By: #### P T/AP, CMP3, HEMOG, FIBGN #### [facility] [address] [place], [place] Bilirubin [Mass/Vol] 0.5 mg/dL Normal 0.2-1.[address] [facility] Comment on above: Performed By: #### P T/AP, CMP3, HEMOG, FIBGN #### [facility] [address] [place], [place] CO2 [Moles/Vol] 20 mmol/L Low 22-[address] [facility] Comment on above: Performed By: #### P T/AP, CMP3, HEMOG, FIBGN #### [place] [address] [place], [place] Creatinine [Mass/Vol] 0.63 mg/dL Normal 0.52-1.25 [facility] Comment on above: Performed By: #### P T/AP, CMP3, HEMOG, FIBGN #### [place] [address] [place], [place] eGFR OTHER > 90.0 Normal >60 [facility] Comment on above: Result Comment: KDIG O [...] #### P T/AP, CMP3, HEMOG, FIBGN #### [facility] [address] [place], [place] GFR/1.73 sq M.predicted among blacks MDRD (S/P/Bld) [Vol rate/Area] mL/min/{1.73_m2} Normal >60 [facility] Comment on above: Performed By: #### P T/AP, CMP3, HEMOG, FIBGN #### [place] [address] [address] [place], [place] Protein [Mass/Vol] 6.9 g/dL Normal 6.3-8.2 [facility] Comment on above: Performed By: #### P T/AP, CMP3, HEMOG, FIBGN #### [place] [address] [address] [place], [place] Urea nitrogen [Mass/Vol] 14 mg/dL Normal 7-20 [facility] Comment on above: Performed By: #### P T/AP, CMP3, HEMOG, FIBGN #### [place] [address] [address] [place], [place] Potassium [Moles/Vol] 4.3 mmol/L Normal 3.5-5.1 [facility] Comment on above: Result Comment: Slig htly hemolysed, interpret with caution. Performed By: #### P T/AP, CMP3, HEMOG, FIBGN #### [place] [address] [address] [place], [place] Sodium [Moles/Vol] 134 mmol/L Low 135-145 [facility] Comment on above: Performed By: #### P T/AP, CMP3, HEMOG, FIBGN #### [place] [address] [address] [place], [place] Albumin [Mass/Vol] 3.4 g/dL Low 3.5-5.0 [facility] Comment on above: Performed By: #### P T/AP, CMP3, HEMOG, FIBGN #### [place] [address] [address] [place], [place] Chloride [Moles/Vol] 107 mmol/L Normal 98-107 [facility] Comment on above: Performed By: #### P T/AP, CMP3, HEMOG, FIBGN #### [place] [address] [address] [place], [place] Comprehensive Metabolic Pane parag 04-25-2020 Albumin [Mass/Vol] 3.4 g/dL Low 3.5 - 5 g/dL [place] ALP [Catalytic activity/Vol] 114 U/L 38 - 126 U/L [place] Comment on above: Slightly hemolysed, interpret with caution. ALT [Catalytic activity/Vol] 19 U/L 0 - 34 U/L [place] Comment on above: The ALT test is perf ormed by an updated assay method. Please note that the reference intervals have been changed and are now sex specific. Anion gap [Moles/Vol] 6 mmol/L [place], [place] AST [Catalytic activity/Vol] 39 U/L 15 - 46 U/L [place] Comment on above: Slightly hemolysed, interpret with caution. Bilirubin Ql (U) 0.5 mg/dL 0.2 - 1.3 mg/dL [place] Calcium [Mass/Vol] 8.5 mg/dL 8.4 - 10. 4 mg/dL [place] Chloride [Moles/Vol] 107 mmol/L 98 - 10 7 mmol/L [place] CO2 [Moles/Vol] 20 mmol/L Low 22 - 30 mmol/L [place] Creatinine [Mass/Vol] 0.63 mg/dL 0.52 - 1.25 mg/dL [place] EGFR IF NonAfrican [place] >90.0 >60 mL/min [place] Comment on above: KDIGO guidelines pro [...] MDRD (S/P/Bld) [Vol rate/Area] mL/min/{1.73_m2} >60 mL/min [place] Glucose [Mass/Vol] 97 mg/dL 70 - 100 mg/dL [place] Interpretation and review of laboratory results Abnormal [place] Potassium [Moles/Vol] 4.3 mmol/L 3.5 - 5.1 mmol/L [place] Comment on above: Slightly hemolysed, interpret with caution. Protein [Mass/Vol] 6.9 g/dL 6.3 - 8.2 g/dL [place] Sodium [Moles/Vol] 134 mmol/L Low 135 - 145 mmol/L [place] Urea nitrogen [Mass/Vol] 14 mg/dL 7 - 20 mg/dL [place] Creatinine, Ur Randomon 03-29 Creatinine, Ur Random 66.8 mg/dL Normal No Range [facility] Comment on above: Performed By: #### C RTUR, TPUR, MAT #### [address] Fibrinogenon 04-25-2020 Fibrinogen 390 mg/dL Normal 200-400 [place] Comment on above: Performed By: #### P T/AP, CMP3, HEMOG, FIBGN #### [place] [address] [place], [place] Hemogramon 04-25-2020 Erythrocyte distribution width (RBC) [Ratio] 18.2 % High 11.5-14.5 [facility] Comment on above: Performed By: #### P T/AP, CMP3, HEMOG, FIBGN #### [address] Hematocrit (Bld) [Volume fraction] 30.6 % Low 35.0-47.0 [facility] Comment on above: Performed By: #### P T/AP, CMP3, HEMOG, FIBGN #### [place] [address] [place], [place] Hemoglobin (Bld) [Mass/Vol] 9.7 g/dL Low 11.7-16.0 [facility] Comment on above: Performed By: #### P T/AP, CMP3, HEMOG, FIBGN #### [facility] [address] [place], [place] MCH (RBC) [Entitic mass] 26.2 pg Normal 26.0-34.0 [facility] Comment on above: Performed By: #### P T/AP, CMP3, HEMOG, FIBGN #### [place] [address] [address] [place] MCHC 31.9 % Low 32.0-36.0 [facility] Comment on above: Performed By: #### P T/AP, CMP3, HEMOG, FIBGN #### [place] [address] [address] [place], [place] MCV (RBC) [Entitic vol] 82.2 fL Normal 79.0-98.0 [facility] Comment on above: Performed By: #### P T/AP, CMP3, HEMOG, FIBGN #### [place] [address] [address] [place], [place] Platelet mean volume (Bld) [Entitic vol] 8.1 fL Normal 7.4-10.4 [facility] Comment on above: Performed By: #### P T/AP, CMP3, HEMOG, FIBGN #### [place] [address] [address] [place], [place] Platelets (Bld) [#/Vol] 249 10*3/uL Normal 140-440 [facility] Comment on above: Performed By: #### P T/AP, CMP3, HEMOG, FIBGN #### [place] [address] [address] [place], [place] RBC (Bld) [#/Vol] 3.72 10*6/uL Low 3.80-5.20 [facility] Comment on above: Performed By: #### P T/AP, CMP3, HEMOG, FIBGN #### [place] [address] [address] [place], [place] WBC (Bld) [#/Vol] 13.3 10*3/uL High 3.6-10.7 [facility] Comment on above: Performed By: #### P T/AP, CMP3, HEMOG, FIBGN #### [facility] [address] [place], [place] Medication Assisted Treatmen t Panelon 04-25-2020 Fentanyl Negative Normal [facility] Comment on above: Performed By: #### C RTUR, TPUR, MAT #### [facility] [address] [place], [place] Amphetamines Ql (U) Negative Normal [facility] Comment on above: Performed By: #### C RTUR, TPUR, MAT #### [place] [address] [address] [place], [place] Barbiturates Negative Normal [facility] Comment on above: Performed By: #### C RTUR, TPUR, MAT #### [place] [address] [address] [place], [place] Benzodiazepines Ql (U) Negative Normal [facility] Comment on above: Performed By: #### C RTUR, TPUR, MAT #### [place] [address] [address] [place], [place] Buprenorphine Screen Negative Normal [facility] Comment on above: Performed By: #### C RTUR, TPUR, MAT #### [place] [address] [address] [place], [place] Cocaine Ql (U) Negative Normal [facility] Comment on above: Performed By: #### C RTUR, TPUR, MAT #### [place] [address] [address] [place] Ethanol [Mass/Vol] Negative Normal [facility] Comment on above: Performed By: #### C RTUR, TPUR, MAT #### [place] [address] [address] [place], [place] Methadone Ql (U) Negative Normal [facility] Comment on above: Performed By: #### C RTUR, TPUR, MAT #### [place] [address] [address] [place] Opiates Ql (U) Negative Normal [facility] Comment on above: Performed By: #### C RTUR, TPUR, MAT #### [place] [address] [facility] [facility] [place] Oxycodone/Oxymorphone Negative Normal [facility] Comment on above: Performed By: #### C RTUR, TPUR, MAT #### [place] [address] [address] [place], [place] PCP Negative Normal [facility] Comment on above: Performed By: #### C RTUR, TPUR, MAT #### [place] [address] [address] [place] THC Negative Normal [facility] Comment on above: Performed By: #### C RTUR, TPUR, MAT #### [place] [address] [address] [place], [place] Amphetamines Ql (U) Negative [facility], [place] Benzodiazepines Ql (U) Negative [facility], [place] Cocaine Ql (U) Negative [facility], [place] Ethanol [Mass/Vol] Negative [facility] Methadone Ql (U) Negative [facility] Opiates Ql (U) Negative [facility] Sodium [Moles/Vol] See Below [facility] Comment on above: The expected [...] performed using non-forensic procedures. Test Performed by [address] MAT Panel Test Comment See Below Normal [facility] Comment on above: Result Comment: The expected [...] By: #### C RTUR, TPUR, MAT #### [address] [id number] Metabolic Panelon 04-25-2020 Sodium [Moles/Vol] Negative [place] Otheron 04-25-2020 Test Performed by [address] Test Performed by [address] PROTEIN, URINE, RANDOMon Interpretation and review of laboratory results Abnormal [place] Protein (U) [Mass/Vol] 88 mg/dL High No Range [place] PROTIME/INR & PTTon 04-25-20 20 INR Coag (PPP) [Relative time] 0.9 {INR} [place] Comment on above: Recommended Anticoag ulant [...] Ur Random 88 mg/dL High No Range [facility] Comment on above: Performed By: #### C RTUR, TPUR, MAT #### [facility] [address] [place], [place] Protime AND APTTon 0 aPTT Coag (Bld) [Time] 21.4 s Normal 20.0-30.5 [place], [place] Comment on above: NOTE: The therapeuti c time for Heparin anticoagulation, based on Xa activity inhibition, is an APTT of 46-80 seconds. Result Comment: NOTE : The therapeutic time for Heparin anticoagulation, based on Xa activity inhibition, is an APTT of 46-80 seconds. Performed By: #### P T/AP, CMP3, HEMOG, FIBGN #### [facility] [address] [place], [place] INR 0.9 Normal 0.9-1.1 [facility] Comment on above: Result Comment: Trell mmended [...] #### P T/AP, CMP3, HEMOG, FIBGN #### [facility] [address] [place], [place] PT Coag (PPP) [Time] 9.6 s Normal 9.0-12.0 [place], [place] Comment on above: . Result Comment: . Performed By: #### P T/AP, CMP3, HEMOG, FIBGN #### [facility] [address] [place], [place] TS GELon 04-25-2020 TS GEL ABO Group: O Rh, Gel: POS Antibody Screen Gel: NEG Normal [employer] [facility] Comment on above: Performed By: #### T SGL ####[employer] [facility] TYPE AND SCREENon 04-25-2020 Sodium [Moles/Vol] Negative [facility], [place] Sodium [Moles/Vol] O [facility] Sodium [Moles/Vol] Positive [facility], [place] Test Performed by [employer] [facility], [address] [place] [id number] [facility], [place] ABO, External Resulton 04-10 ABO, External Result O [facility], [place] C. Trachomatis, External Res ulton 04-10-2020 C. Trachomatis, External Result Negative [facility], [place] HIV, External Resulton 04-10 HIV, External Result Negative [facility], [place] Hepatitis B, External Result on 04-10-2020 Hep B, External Result Negative [place], [place] N. Gonorrhoeae, External Res ulton 04-10-2020 N. Gonorrhoeae, External Result Negative [facility], [place] Otheron 04-10-2020 Verified with Fer Alejo rn [place], [place] RPR, External Labon 04-10-20 20 RPR, External Result Negative [facility], [place] Rh Factor, External Resulton 04-10-2020 Rh Factor, External Result Positive [place] Rubella Titer, External Resu lton 04-10-2020 Rubella Titer, External Result IMMUNE [place] Progress Noteon 03-08-2020 [employer] Authentication Interface Message Text Pediatric Cardiology Echocardiogram Visit: Consultation REASON FOR CONSULTATION: Anand Herrera [...] here today. A echocardiogram was performed by MFM as part of their evaluation, and felt [...] Surgical History: Procedure Laterality Date COLONOSCOPY 2019 ALLERGIES: No Known Allergies FAMILY/SOCIAL HISTORY: History reviewed. No pertinent family history. The patient has no other children. FOB's sister was premature, required intervention for a [...] in visit on 03/08/20 Echo New Narrative [facility] [place] [address] [email or web address] ---- Echocardiogram Report M-mode, complete 2D, complete spectral Doppler, and color Doppler PATIENT: Anand Herrera STUDY DATE/TIME: Mar 08 2020 12:04PM HEIGHT: : 2000 WEIGHT: AGE: 19yr BSA/BMI: / GENDER: F BP: 137 / 64 LOCATION: [facility] REFERRING PHYSICIAN: Ozzy Martinez Md ORDERING PROVIDER: Darby Agee Cnp READING PHYSICIAN: Hannah Guevara MD ---- SUMMARY: 1. HPI and indications: Absent right hand. 2. Normal echocardiogram within the limits of echocardiography. 3. This study is limited in evaluating minor valve abnormalities, septal defects, partial anomalous pulmonary venous connection, and aortic arch abnormalities. 4. The above findings, including the limitations, were discussed with the patient. Recommendations: follow-up for baby if clinically indicated. ---- REASON FOR EXAM: Absent right hand. ---- STUDY AND PROCEDURE DATA: Procedure Description: New ([id number]) . Study status: Routine. Location: lab. Procedure: Transabdominal echocardiography for congenital heart disease evaluation. Patient status: Outpatient. Blood pressure: 137/64 Maternal age: 19yr. : 1. Parity: 0. Gestational age: 24wk. ---- FINDINGS: DESCRIPTION One fetus is present. Normal [...] a patent foramen ovale. There is a [id number] shunt. Left atrium - The atrium is [...] - There is no significant pericardial effusion. ---- *Measurements* Value Ref Z Biparietal diam (N) [...] (L) domenico values outside specified reference range. ---- RADHA ICD Codes: (O35.8XX0) Maternal care for [...] Hannah Guevara MD [facility] Qa Auditor [facility] Clinical Dental Officer of Pediatrics [facility] Counseling and coordination of care for this patient was greater than 35minutes which is more than 50% of the total time of 60 minutes spent on the encounter. Normal [facility] [employer] Authentication Interface Message Text Pediatric Hand Surgery [...] Surgical History: Procedure Laterality Date COLONOSCOPY 2018 DRUG/FOOD ALLERGIES: No Known Allergies MEDICATIONS: Current [...] to requesting provider. 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 Consent to share information with [facility] team, OB and corporate accounting manager signed. Pt plans to deliver at [facility] with Dr Martinez. Sleeve Presser Operator is not yet decided. female fetus- name is Marlin Method of feeding: breast and bottle Ultrasound findings today: See report in procedures for details. Reinforced continued OB care with Dr Martinez- next appointment- next week Normal [facility] [employer] Authentication Interface Message Text MFM genetic counseling note Consultation has been requested [...] Herrera also met with Jerilyn Agee, Clinical Dance Coach from our [facility]. Jerliyn will continue to help coordinate and care. consultation with Pediatric Orthopedic Surgery in the Hand and Upper Extremity Clinic is being arranged. follow up with Pediatric Orthopedic Surgery should be within one month of age or otherwise as per their recommendations. Call [phone] to schedule. Consultation with Medical Genetics should be considered in the period, especially if additional concerns are noted after delivery. The corporate accounting manager or patient can request this consultation. Call [phone] to schedule. Indicate that you were followed by the [facility] when scheduling. Diagnosis: DIAGNOSIS. 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 Plan: 1. Continued obstetrical care with her primary certified court/medical interpreter is recommended. 2. Follow up q4 weeks to evaluate biometric parameters and anatomy. These are planned with the [facility]/your office. 3. surveillance as follows: weekly BPP beginning at 32 weeks. 4. consultation with Pediatric Orthopedic Surgery in the Hand and Upper Extremity Clinic is being arranged. 5. Delivery is appropriate at your local institution/already planned in [place] with follow up as indicated. 6. Mode and timing of delivery are based on the usual obstetrical indications. 7. Anticipate normal nursery. OR Neonatology/Pediatric di to be present at delivery to evaluate infant and determine nursery placement. 8. follow up with Pediatric Orthopedic Surgery should be within one month of age or otherwise as per their recommendations. Call [phone] to schedule. 9. Consultation with Medical Genetics should be considered in the period, especially if additional concerns are noted after delivery. The corporate accounting manager or patient can request this consultation. Call [phone] to schedule. Indicate that you were followed by the [facility] when scheduling. 9. Other follow up as clinically indicated. Her complete [facility] Plan of Care summary will be distributed. The total patient time of the visit was 30 minutes, of which greater than 50% of the time was spent counseling and coordinating care. Junior Kat MD [facility] Progress Noteon 02-15-2020 [employer] Authentication Interface Message Text Dating for consult Normal [facility] Vital Signs Date Time Vital Sign Value Performing Clinician Facility 10-14-2022 12:27-0400 Body temperature 98.24 [degF] Nakul Cannon [facility] 10-14-2022 12:27-0400 Diastolic blood pressure 64 mm[Hg] Nakul Cannon [facility] 10-14-2022 12:27-0400 Heart rate 107 /min Nakul Cannon [facility] 10-14-2022 12:27-0400 Respiratory rate 18 /min Nakul Cannon [facility] 10-14-2022 12:27-0400 SaO2% (BldA) [Mass fraction] 100 % Nakul Cannon [facility] 10-14-2022 12:27-0400 Systolic blood pressure 113 mm[Hg] Nakul Cannon [facility] 12-19-2021 03:42-0400 Diastolic blood pressure 64 mm[Hg] Anthony Martinez [facility] 12-19-2021 03:42-0400 Heart rate 78 /min Anthony Martinez [facility] 12-19-2021 03:42-0400 Hourly Rounding Anthony Martinez [facility] 12-19-2021 03:42-0400 Nursing Progress Note Reason Other: Pt mediciated per orders. Family x1 cartside. Denies any needs at this time. Anthony Martinez [facility] 12-19-2021 03:42-0400 Respiratory rate 16 /min Anthony Briscoener [facility] 12-19-2021 03:42-0400 SaO2% (BldA) [Mass fraction] 100 % Anthony Michelle [facility] 12-19-2021 03:42-0400 Systolic blood pressure 116 mm[Hg] Anthony Michelle [facility] 12-19-2021 02:40-0400 Diastolic blood pressure 70 mm[Hg] Anthony Michelle [facility] 12-19-2021 02:40-0400 Heart rate 82 /min Anthony Michelle [facility] 12-19-2021 02:40-0400 Hourly Rounding Anthony Michelle [facility] 12-19-2021 02:40-0400 Nursing Progress Note Reason Other: Pt ambulatory to bathroom and back to cart with a steady gait. Anthony Michelle [facility] 12-19-2021 02:40-0400 Respiratory rate 16 /min Anthony Michelle [facility] 12-19-2021 02:40-0400 SaO2% (BldA) [Mass fraction] 100 % Anthony Michelle [facility] 12-19-2021 02:40-0400 Systolic blood pressure 122 mm[Hg] Anthony Michelle [facility] 12-19-2021 01:53-0400 Body temperature 98.06 [degF] Anthony Michelle [facility] 12-19-2021 01:53-0400 Diastolic blood pressure 84 mm[Hg] Anthony Michelle [facility] 12-19-2021 01:53-0400 Heart rate 89 /min Anthony Michelle [facility] 12-19-2021 01:53-0400 Respiratory rate 16 /min Anthoyn Michelle [facility] 12-19-2021 01:53-0400 SaO2% (BldA) [Mass fraction] 100 % Anthony Martinez [facility] 12-19-2021 01:53-0400 Systolic blood pressure 149 mm[Hg] Anthony Martinez [facility] 11-01-2021 08:09-0400 Body temperature 98.42 [degF] Keanu Kamara [facility] 11-01-2021 08:09-0400 Diastolic blood pressure 90 mm[Hg] Keanumattie Kamara [facility] 11-01-2021 08:09-0400 Heart rate 94 /min Keanumattie Kamara [facility] 11-01-2021 08:09-0400 Respiratory rate 18 /min Keanumattie Kamara [facility] 11-01-2021 08:09-0400 SaO2% (BldA) [Mass fraction] 98 % Keanu Kamara [facility] 11-01-2021 08:09-0400 Systolic blood pressure 145 mm[Hg] Keanu Asad [facility] 09-18-2021 09:59-0400 Body temperature 98.06 [degF] [facility] 09-18-2021 09:59-0400 Diastolic blood pressure 87 mm[Hg] [facility] 09-18-2021 09:59-0400 Heart rate 90 /min [facility] 09-18-2021 09:59-0400 Respiratory rate 16 /min [facility] 09-18-2021 09:59-0400 SaO2% (BldA) [Mass fraction] 100 % [facility] 09-18-2021 09:59-0400 Systolic blood pressure 136 mm[Hg] Amos Espinoza [facility] 04-28-2020 07:51-0500 Body Temperature 97.81 [degF] Chelsi Fidel [place], [place] 04-28-2020 07:51-0500 BP Diastolic 68 mm[Hg] [place] 04-28-2020 07:51-0500 BP Systolic 121 mm[Hg] [place] 04-28-2020 07:51-0500 Pulse (Heart Rate) 97 /min [place] 04-28-2020 07:51-0500 Pulse Oximetry 97 % [place] 04-28-2020 07:51-0500 Respiratory Rate 18 /min [place] 04-25-2020 13:40-0500 BMI (Body Mass Index) 23.3 kg/m2 [place] 04-25-2020 13:40-0500 Body weight 63.5 kg [place] 04-25-2020 13:40-0500 Height 165.1 cm [place] Encounters Encounter Date Encounter Type Care Provider Facility Start: 10-26-2023 End: 10-26-2023 ambulatory JESS GARGOS Not Available Start: 05-05-2023 End: 05-05-2023 ambulatory LATANYA VELIA Not Available Start: 03-31-2023 End: 03-31-2023 ambulatory LATANYA VELIA Not Available Start: 03-17-2023 End: 03-17-2023 ambulatory LATANYA VELIA Not Available Start: 03-12-2023 End: 03-12-2023 ambulatory LATANYA VELIA Not Available Start: 02-02-2023 End: 02-25-2023 Pre-admission assessment Ozzy Martinez [facility] Start: 02-01-2023 End: 02-01-2023 ambulatory Ozzy Martinez [place] Start: 11-10-2022 ambulatory KELL Chamberlain lity:[facility] Jacobo Mark Start: 10-14-2022 End: 10-14-2022 Emergency department patient visit Nakul Cannon [place] Start: 10-14-2022 End: 10-14-2022 Emergency department patient visit Nakul Cannon [facility] Start: 09-26-2022 ambulatory PCP UNKNOWN Facility:[facility] Jacobo Mark Start: 09-04-2022 End: 09-05-[address] MARCO A VELIZ . Facility: Start: 08-14-2022 End: 08-15-[address] MARCO A VELIZ . Facility: Start: 12-19-2021 End: 12-19-2021 Emergency department patient visit Anthony Martinez [facility] Start: 11-14-2021 End: 11-14-2021 Patient encounter procedure Grover Corderovenessa OD Work Phone: Ophthalmology Comment on above: EKC (epidemic kerato conjunctivitis) (Primary Dx) Start: 11-07-2021 End: 11-07-2021 Patient encounter procedure Grover Kendell Ortizkimberlyn OD Work Phone: Ophthalmology Comment on above: Viral conjunctivitis (Primary Dx) Start: 11-01-2021 End: 11-01-2021 Emergency department patient visit Keanu Kamara [facility] Start: 09-18-2021 End: 09-18-2021 Emergency department patient visit Amos Espinoza [facility] Start: 04-25-2020 End: 04-28-2020 Evaluation and management of inpatient Chelsi Parra Work Phone: [facility] Procedures Date Procedure Procedure Detail Performing Clinician Start: 04-27-2020 Blood count hemoglobin Kristrun H Sourav Work Phone: Start: 04-25-2020 Blood count complete automated Codie Hough Work Phone: Start: 04-25-2020 Blood typing serolog ic abo Codie Hough Work Phone: Start: 04-25-2020 Comprehensive metabo lic panel Codie Hough Work Phone: Start: 04-25-2020 Fibrinogen activity Whi tney Marti Hough Work Phone: Start: 04-25-2020 PROTIME/INR & PTT [...] Work Phone: Start: 04-10-2020 ABO, EXTERNAL RESULT [facility] Provider Start: 04-10-2020 C. TRACHOMATIS, EXTE RNAL RESULT Historical Provider Start: 04-10-2020 HEPATITIS B, EXTERNA L RESULT Historical Provider Start: 04-10-2020 [facility] Start: 04-10-2020 N. GONORRHOEAE, EXTE RNAL RESULT Historical Provider Start: 04-10-2020 RH FACTOR, EXTERNAL RESULT Historical Provider Start: 04-10-2020 RPR, [facility] Start: 04-10-2020 RUBELLA TITER, EXTER NAL RESULT Historical Provider Plan of Treatment Date Care Activity Detail Author Start: 12-26-2021 Influenza vaccination INFLUENZA (#1) [facility] Start: 10-08-2020 PAP TESTING PAP TESTING [facility] Start: 10-08-2018 Urine microalbumin profile DTAP,TDAP,TD (1 - Tdap) [facility] Start: 10-08-2017 CHLAMYDIA SCREENING (18-24) CHLAMYDIA SCREENING (18-24) [facility] Start: 10-08-2017 GC (GONORRHEA) YOSHI LEBLANCG (18-24) GC (GONORRHEA) SCREENING (18-24) [facility] Start: 10-08-2017 HEPATITIS C SCREENING HEPATITIS C SC REENING [facility] Start: 10-08-2017 HIV SCREENING HIV SCREENING [facility] Start: 10-08-2013 PEDS TO ADULT TRANSI TION ANNUAL ASSESSMENT PEDS TO ADULT TRANSITION ANNUAL ASSESSMENT [facility] Start: 2011 Adult depression screening assessment DEPRESSION SCREENING [facility] Start: 2011 PEDS TO ADULT TRANSI TION INITIAL DISCUSSION PEDS TO ADULT TRANSITION INITIAL DISCUSSION [facility] Start: 10-08-2010 HPV VACCINE (1 - 2-d ose series) HPV VACCINE (1 - 2-dose series) [facility] Start: 04-09-2000 COVID-19 VACCINE (#1) COVID-19 VACCI NE (#1) [facility] Nonrebreather mask oxygen Nonrebreather mask oxygen Respiratory Care Routine As directed - RT (PRN) until discontinued starting 04/26/2020 [place] Comment on above: As directed - RT (CT N) until discontinued starting 04/26/2020 Oxygen therapy [[facility] Data Set] Initiate Oxygen Therapy Protocol Respiratory Care Routine Daily until discontinued starting 04/26/2020 [place], [place] Comment on above: Daily until disconti nued starting 04/26/2020 Spirometry panel Incentive roger metry Respiratory Care Routine Every 2hr while awake until discontinued starting 04/26/2020 [place] Comment on above: Every 2hr while awak e until discontinued starting 04/26/2020 [facility] Immunizations Immunization Date Immunization Notes Care Provider Fa cility 04-28-2020 tetanus toxoid, redu paula diphtheria toxoid, and acellular pertussis vaccine, adsorbed [facility] [place] 04-27-2020 influenza, injectabl e, quadrivalent, preservative free [facility], [place] 04-26-2020 influenza quadrivale nt split vaccine (FLUZONE;FLUARIX;FLULAVAL; AFLURIA) injection 0.5 mL Chelsi Juza [facility] MIR[facility] 04-26-2020 diphtheria, tetanus toxoids and acellular pertussis vaccine, unspecified formulation Chelsijessica Parra [place] Payers Date Payer Category Payer Department of [place] [employer] ( and others) [id number] 2020 Medicaid [employer] [place] [id number] 2020[facility] [phone] [address] [address] [place] [address] Medicaid [id number] 2020 [employer] ( and others) [id number] 1999 Unknown [id number] [id number]. 593 1999 Unknown [id number] [id number]. 593 1999 Unknown [id number] 2.16.840.1.091939.3.579.2. 356 1999 Unknown [id number] 2.16.840.1.242154.3.579.2. 356 1999 Unknown [id number] 2.16.840.1.759845.3.579.2. 727 1999 Unknown [id number] 2.16.840.1.188560.3.579.2. 727 1999 Unknown [id number] 2.16.840.1.650400.3.579.2. 1259 1999 Unknown [id number] 2.16.840.1.795221.3.579.2. 1259 1999 Unknown [id number] 2.16.840.1.528791.3.579.2. 1259 1999 Unknown [id number] 2.16.840.1.544987.3.579.2. 1259 1999 Unknown [id number] 2.16.840.1.076524.3.579.2. 1259 1999 Unknown [id number] [id number]. 1259 1959 Unknown [id number] Social History Date Type Detail Facility Start: 04-28-2020 End: 11-07-2021 Tobacco smoking status IAIS Never smoker [facility] Start: 04-28-2020 End: 11-07-2021 Tobacco use and exposure Never used [place], [place] Start: 04-28-2020 Alcohol intake Ex-drinker (finding) [place], [place] Start: 1999 Sex Assigned At Not on file [place] Start: 10-28-2021 End: 11-07-2021 Exposure to SARS-CoV-2 (event) Not sure [place], [place] Tobacco [facility] Comment on above: denies Sex Assigned At Female [facility] Tobacco smoking status No Smokin g Status Entered [facility] Functional Status Date Assessment Result Facility 10-14-2022 Functional Status N/A [facility] 12-19-2021 Functional Status N/A [facility] 11-01-2021 Functional Status N/A [facility] Clinical Notes 04-28-2020 to 02-01-2023 Note Date & Type Note Facility 02-01-2023 Note The following Patien t Education Materials have been given to the patient: EducationMaterial [facility] 10-14-2022 Hospital Discharg e instructions Patient Education 10/14/2022 13:55:20 Sutures, Azalia, or Adhesive Wound Closure, Fjnk-iy-Pfyt Sutures, Jasper, or Adhesive Wound Closure Doctors use stitches [...] ?Hold the edges of the wound together. ?[place] the glue onto your skin. You may [...] this with as many azalia as needed. Jasper are faster to use than sutures, and they cause less reaction from your skin. Jasper need to be taken out using a tool that bends the azalia away from your skin. Follow these instructions at home: Medicines Take vtud-inx-lbiiovp and prescription medicines only as told by [...] cannot use soap and water, use hand taxation inspector. Do not try to take off or [...] provider. Document Revised: 08/19/2021 Document Reviewed: 08/19/2021 [employer] Patient Education 2022 [employer] Follow Up Care 10/14/2022 12:20:41 With:Baljit Link Address: [address] [place] [address]- Business (1) When:10/17/2022 13:48:24 [facility] 12-19-2021 Evaluation + Plan note Extrac [...] w/ Auto Diff eGFR PT & PTT [facility]08-25-2022 Hospital Discharge instructions Patient Education 12/19/2021 04:06:21 Dysfunctional Uterine Bleeding Dysfunctional Uterine Bleeding Dysfunctional uterine bleeding is abnormal bleeding from the uterus. Dysfunctional uterine bleedingincludes: A menstrual period that comes earlier or later than usual. A menstrual period that is supervisor compressed yeast or heavier than usual, or has large [...] to keep your urine pale yellow. ?Take faec-bvg-ognsqex or prescription medicines. ?Eat foods that are high in fiber, such as beans, whole grains, and fresh fruits and vegetables. ?Limit foods that are high in fat and processed sugars, such as fried or sweet foods. Medicines Take eybv-dvd-xhsifqs and prescription medicines only as told by [...] 04/10/2001 Document Revised: 09/22/2018 Document Reviewed: 09/22/2018 [employer] Patient Education 2020 [employer]. Follow Up Care 12/19/2021 01:46:43 With:Ozzy Martinez Address: [facility] [address] [phone] Business (1) When:12/22/2021 [facility]07-21-2022 NoteHNO ID: [id number] Author: Grover Amaral OD Service: ? Author Type: SENIOR LINUX SYSTEMS ENGINEER Type: Progress Notes Filed: 11/14/2021 2:32 PM [...] Grover Amaral, OD November 14, 2021 2:29 [facility]07-21-2022 History of Present illness Narrative* Grover [...] with the patient. Grover Amaral, DIXON November 14, 2021 2:29 PM [facility] NoteHNO ID: [id number] Author: Grover Amaral OD Service: ? Author Type: SENIOR LINUX SYSTEMS ENGINEER Type: Progress Notes Filed: 11/07/2021 4:03 PM [...] Grover Amaral, DIXON November 07, 2021 4:03 [facility]07-14-2022 Miscellaneous Notes* Addendum Note - Grover Amaral OD - 11/07/2021 4:06 PM EDT Addended by: GROVER AMARAL on: 11/07/2021 04:06 PM Modules accepted: [facility] History of Present illness Narrative* Grover Amaral, OD - 11/07/2021 4:01 PM EDT (B30.9) [...] 07, 2021 4:03 PM [facility] Evaluation + Plan note Extracted from: Title:ED Note Author:Keanu Kamara DO Date: Allergic reaction (T78.40XA: Allergy, unspecified, initial encounter) Orders: predniSONE, 60 mg = 3 tab(s), Oral, Daily, X 5 day(s), # 15 tab(s), Refills(s) 0, Pharmacy: [facility]/pharmacy #[id number], 165, cm, 11/01/21 8:11:00 EDT, Height/Length Dosing, 63, kg, 11/01/21 8:11:00 EDT, Weight Dosing [facility]07-08-2022 Hospital Discharge instructions Patient Education 11/01/2021 [...] care provider who specializes in treating allergies (rn burn) or eye conditions (tongue and quarter stitcher) for tests to confirm the diagnosis. You [...] Eye drops. These may be prescription or hcwu-kac-eahjvys. There are several different types. You may [...] known allergens whenever possible. Take or apply irkk-loj-wxkibup and prescription medicines only as told by [...] 07/04/2003 Document Revised: 03/26/2018 Document Reviewed: 10/24/2016 [employer] Patient Education [employer]. Follow Up Care 11/01/2021 08:05:40 With:Johanna Huynh Address: [address] [address]- Business (1) When:11/04/2021 08:24:58 Comments:Call today to arrange for follow-up appointment on Thursday or Thursday. Return to the ED with new or worsening symptoms as discussed. With:Baljit Watts Address: [address] [place] [address]- Business (1) When:11/04/2021 08:24:46 Comments:Call the office [...] you develop any new or worsening symptoms. [facility]05-25-2022 Hospital Discharge instructions Patient Education 09/18/2021 [...] may be recommended to support your foot. Xlyv-rpd-jxkfgya anti-inflammatory medicines may also be recommended for [...] sitting or lying down. General instructions Take wefa-pxo-ykhftys and prescription medicines only as told by [...] 02/02/2007 Document Revised: 12/14/2018 Document Reviewed: 12/14/2018 [employer] Patient Education 2020 [employer]. Follow Up Care 09/18/2021 09:48:23 With:Baljit Link Address: [address] [place], [place] [address]dict [facility] [place] [address]- Business (1) When:09/21/2021 11:47:11 Comments:Return to the emergency room if your pain gets worse or any new symptom [facility]05-25-2022 Evaluation + Plan noteExtracted from: Title:ED Note Author:Amos Espinoza M.D. te:09/18/21 1. Contusion of left foot (S 90.32XA: Contusion of left foot, initial encounter) Orders: Post-op Shoe XR Foot 3+ Views Left [facility]01-02-2021 NoteDepartment of Obstetrics and Gynecology Delivery Discharge Summary Admission on 04/25/2020 1:08 PM Reason for admission: 04/25/2020 Intrapartum Course: N/A 30w6d PC-01 Indications for Delivery: Was patient delivered between 37w0d - 61u4uieust? NO Surgical Operations & Procedures: Date of delivery: 04/26/2020 Delivery Type: without labor Anesthesia: Spinal anesthesia Laceration(s): n/a Delivery Complications: none EBL: 700 cc Pertinent Findings & Procedures: Information for the patient's : Ree Herrera [[id number]] female Weight: 2 lb 12.3 oz (1.256 kg) Apgars: Information for the patient's : Ree Herrera [[id number]] One Minute : 6 Five Minute : 7 Course: Magnesium sulfate and Procardia for PEWSF Infant: Female Blood Type/Rh: O POS Antibody Screen: Antibody Screen Date Value Ref Range Status 04/25/2020 NEG NA Final Rubella: No results found for: RUBELLAIGG Contraception: will be discussed with her provider at [place] : no VTE Prophylaxis: Not Indicated Meds: Anand Herrera Home Medication Instructions RANDA:[id number] Printed on:04/28/20 1238 Medication Information ferrous sulfate [...] in [address] Wray in [place]. Condition on discharge: Stable Discharge to: Home [...] know - She will follow with her HEALTH RECORD TECHNICIAN in [place] - I will call Dr. 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 NO Surgical Operations & Procedures: Date of delivery: 04/26/2020 Delivery Type: without labor Anesthesia: Spinal anesthesia Laceration(s): n/a Delivery Complications: none EBL: 700 cc Pertinent Findings & Procedures: Information for the patient's : Ree Herrera [[id number]] female Weight: 2 lb 12.3 oz (1.256 kg) Apgars: Information for the patient's : Ree Herrera [[id number]] One Minute : 6 Five Minute : 7 Course: Magnesium sulfate and Procardia for PEWSF Infant: Female infant Blood Type/Rh: O POS Antibody Screen: Antibody Screen Date Value Ref Range Status 04/25/2020 NEG NA Final Rubella: No results found for: RUBELLAIGG Contraception: will be discussed with her provider at [place] : no VTE Prophylaxis: Not Indicated Meds: Anand Herrera Home Medication Instructions RANDA:[id number] Printed on:04/28/20 1238 Medication Information ferrous sulfate [...] in [address] Wray in [place]. Condition on discharge: Stable Discharge to: Home [...] know - She will follow with her HEALTH RECORD TECHNICIAN in [place] - I will call Dr. Wray answering service at [phone] to update him with her condition, medications, [...] allowing us to care of you at [facility]. This time can be one of many [...] over the next few weeks. Bleeding may potato picker and then decrease again around 7-10 [...] avoid constipation you may take a mild ohka-pej-ydwvoqf stool softener (such as colace) as recommended [...] clean your hands with an alcohol-based hand taxation inspector that contains at least 60% alcohol. Clean your hands often Wash your hands often with soap and water for at least 20 seconds, especially after blowing your nose, coughing, or sneezing; going to the bathroom; and before eating or preparing food. If soap and water are not readily available, use an alcohol-based hand taxation inspector with at least 60% alcohol, covering all [...] healthcare provider to call the local or [facility] health department. Persons who are placed [...] isolation precautions should be made on a grgn-ad-fjzx basis, in consultation with healthcare providers and stateand local health departments. Information on COVID-19 for all [...] respiratory tract signs and symptoms. Ways to [place] with Anxiety & Stress It is normal [...] an illness that was first found in [facility], in March 2019. It has since [...] seen in people before. This virus spreads bermzh-tk-wwatmq through droplets from coughing and sneezing. It [...] water aren't available, use an alcohol-based hand taxation inspector. Call 911 anytime you think you may [...] of: July 27, 2019 Content Version: 12.4 [employer]. Care instructions adapted under license by your healthcare professional. If you have questions about a medical condition or this instruction, always ask your healthcare professional. [employer] disclaims any warranty or liability for your use of this information. General Recommendations for Routine Cleaning and Disinfection of Households Community members can practice routine cleaning of frequently touched surfaces (for example: tables, doorknobs, light switches, handles, desks, toilets, faucets, sinks) with household media aid and EPA-registered disinfectants that are appropriate for [...] appropriate. These supplies include tissues, paper towels, media aid and EPA-registered disinfectants (see list link at [facility] website). ? If a separate bathroom is [...] be used for other purposes. Consult the guitar maker's instructions for cleaning and disinfection products used. [...] used if appropriate for the surface. Follow guitar maker's instructions for application and proper ventilation. Check [...] o Products with EPA-approved emerging viral pathogens [facility] iconexternal icon are expected to be effective against COVID-19 based on data for harder to kill viruses. Follow the guitar maker's instructions for all cleaning and disinfection products (e.g., concentration, application method and contact time, etc.). Soft (porous) surfaces such as carpeted floor, rugs, and drapes Remove visible contamination if present and clean with appropriate media aid indicated for use on these surfaces. After cleaning: Launder items as appropriate in accordance with the guitar maker's instructions. If possible, launder items using the [...] items as appropriate in accordance with the guitar maker's instructions. If possible, launder items using the warmest appropriate water setting for the items and dry items completely. Dirtylaundry from an ill person can be washed with other people's items. o Clean and disinfect clothes hampers according to guidance above for surfaces. If possible, consider placing a bag washer that is either disposable (can be thrown away) or can be laundered. CDC has a list of EPA approved cleaning products on their website - https://www.cdc.gov/coronavirus/ 2019-ncov/community/home/cleaning-disinfection.html https://www.[employer]/Rjzyb-Tqtmyimfpuz-Zqekzydt-Products-List.pdf [employer] with delivery and potato picker services: [employer]: Free potato picker at locations Delivery is $12.95 a month Website - [employer]: Drum Drier $2.95 (1st order is free) Delivery is $14.95 Website [employer]: supervisor paint roller covers is free Delivery is $5.95 [employer]: supervisor paint roller covers is $4.95 Delivery is $9.95 [employer]: supervisor paint roller covers is $4.95 Delivery is $9.95 [employer]: Can be ordered for delivery and potato picker with [employer] Website - www.[email or web address]: Free deliver for first 3 orders of $35 or more Website [employer] Will deliver from [place], [employer], [employer], and [employer]. Annual membership is $99 Monthly membership is $14 documented in this encounter History of Present Illness * Augie Rodríguez, IBCLC - 04/28/2020 12:11 PM EST Pt [...] Pulse: [phone] Resp: 20 16 16 Temp: 97.8 F (36.6 [...] 2. PreEwSF - severe range Bps at [place], acutely treated with 5mg IV labetalol, [...] know - She will follow with her HEALTH RECORD TECHNICIAN in [place] - I will call Dr. Wray answering service at [phone] to update him with her condition, medications, [...] controlled yes. Vital Signs: Vitals: 04/26/20 1726 04/26/20201404/27/20 0023 04/27/20 0448 BP: 125/80 124/74 125/86 [...] Care - Doing well, VSS - Female - Both breast and bottle - Contraception: Per private attending - Encourage ambulation and use of incentive spirometer - D/C alonzo catheter and saline lock IV on POD [...] ambulating well. Flatus absent. Bowel movement absent. Alonzo catheter remains in place. 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 Matos for pre-eclampsia with SF at 30 5/7 weeks GA transfer from [place] [facility]/Dr Stevens Notified by Dr. Castellanos about the concerns for well being and the concerns of the heart rate tracing. Reviewed with him real time confidentially on face time while he was in the resident lounge and I was at home secondary [...] concern for concealed abruption. I did not corrections counselor the patient directly of the R/B/A [...] day, as when she first arrived to [facility] more moderate than minimal. Patient rajeev [...] non scheduled section with consent signed at [id number]. documented in this encounter Assessments Diagnosis Threatened labor, antepartum Threatened premature labor, antepartum Pre-eclampsia in third trimester Mild or unspecified pre-eclampsia, antepartum Acute on chronic blood loss anemia Additional Source Comments INFORMATION SOURCE (unrecogn ized section and content) DATE CREATED AUTHOR 04/18/2020 [facility] DATE CREATED AUTHOR AUTHOR'S ORGANIZ ATION 02/28/2021 [facility] DATE CREATED AUTHOR AUTHOR'S ORGANIZ ATION 11/16/2021 [facility] DATE CREATED AUTHOR AUTHOR'S ORGANIZ ATION 09/10/2022 [facility] DATE CREATED AUTHOR AUTHOR'S ORGANIZ ATION 11/13/2022 [facility] DATE CREATED AUTHOR AUTHOR'S ORGANIZ ATION 02/04/2023 [facility] DATE CREATED AUTHOR AUTHOR'S ORGANIZ ATION 10/27/2023 [facility] dical Specialists EPIC Reason for Visit [...] Care Team (unrecognized sect ion and content) Gun Repair Clerk Relationship Specialty Start Date End Date Baljit Watts MD [address] [place] [id number] PCP - General Family Practice 11/07/21 Gun Repair Clerk Relationship Specialty Start Date End Date Baljit Watts MD [address] [place] [id number] PCP - General Family Practice 11/07/21 Source Comments (unrecognize d section and content) In the event this informatio n is protected by the Federal Confidentiality of Alcohol and Drug Abuse Patient Records regulations: The Federal rules restrict any use of the information to criminally investigate or prosecute any alcohol or drug abuse patient.[facility] the event this information is protected by the Federal Confidentiality of Alcohol and Drug Abuse Patient Records regulations: The Federal rules restrict any use of the information to criminally investigate or prosecute any alcohol or drug abuse patient.[facility] FOR RECORDS PERTAINING TO PATIENTS WHO [...] BE BASED ON THE PRIMARY CLINICAL RECORDS. [facility]. provides no warranty or guarantee of the accuracy or completeness of information in this document.
== END 2024-03-08 21:29 | disposition home or self-care (01) ==
LOC: LAB 21:28
PROVIDERS: Visit Provider Obstetrics & Gynecology
DX: Z01.419 Encounter for gynecological examination (general) (routine) without abnormal findings (principal)
CPT/HCPCS: 88175

== ENCOUNTER 2024-07-07 10:07 | Outpatient (OUT) | payer OTHER, SELFPAY ==
--- OUTSIDE RECORDS SUMMARY | 2024-07-07 10:24 | XMS_ITS | CCD ---
Author Organization [facility] Care Team Providers Care Faith Healer Name Role Phone Unavailable Primary Care Provider UnavailBaljit Luna Primary Care Physician Baljit Watts MD Primary Care Provider JC ., DR ROSEN Admitting Unavailable JC ., DR ROSEN Attending Unavailable JC ., DR ROSEN Consulting Unavailable Zieber, Billie Consulting Unavailable REQUEST, DR MCGUIRE LISTED Consulting Unavaila ble JC ., DR ROSEN Consulting Unavailable JC ., DR ROSEN Admitting Unavailable MISC, DR WOOD Primary Care Unavailable JC ., DR ROSEN Attending Unavailable [place], KELL Attending Unavailable Jc, Dr. Marco A Zavaleta Referring Unavail able UNKNOWN, PCP Primary Care Unavailable UNKNOWN, PCP Primary Care Unavailable Jc, Dr. Marco A Zavaleta Referring Unavail able Danielle, Dr. Jess Agee Attending Unav Baljit Burk MD Primary Care Provider [phone] Bailey Gonzales Primary Care Physician [phone] Amos Espinoza Attending Unavailable MARCO A GREENE Attending Unavailable POCJESS LAUREANO Referring Unavailable POCJESS LAUREANO Attending Unavailable BAILEY GONZALES Referring Unavailable MARCO A GREENE Attending Unavailable Medications Current Medications Medication Drug [...] 24 hours. amoxicillin 875 mg oral tablet (6 sources) Penicillin-class Antibacterial Start: 10-14-2022 End: 10-24-2022 take 1 tablet by mouth twice daily amoxicillin 875 mg Tab 875 mg = 1 tab(s), Oral, BID, X 10 day(s), # 20 tab(s), Refills(s) 0, Pharmacy: [facility]/pharmacy #[id number], 164, cm, 10/14/22 12:30:00 EDT, Height/Length Dosing, 66, kg, 10/14/22 12:30:00 EDT, Weight Dosing Start Date: 10/14/22 Stop Date: 10/24/22 Status: Ordered Start: 10-31-2021 take 1 capsule by [facility] every twelve hours amoxicillin 500 mg Cap 500 mg = 1 cap(s), Oral, q12hr, # 20 cap(s), Refills(s) 0, Pharmacy: [facility]/pharmacy #[id number], 165, cm, 10/31/21 12:19:00 EDT, Height/Length Dosing, 63, kg, 10/31/21 12:19:00 EDT, Weight Dosing Start Date: 10/31/21 Status: Ordered aspirin 81 mg chewable tablet (2 sources) Platelet Aggregation Inhibitor, Nonsteroidal Anti-inflammatory Drug Start: [...] 0421, lisdexamfetamine dimesylate 40 mg oral capsule (13 sources) Central Nervous System Stimulant Start: 01-31-2023 take 1 capsule by mouth in the morning Vyvanse 40 MG capsule Take 40 mg by mouth in the morning. 03/18/2023 Active Start: 04-01-2020 take 1 capsule by mo [...] tablet 3 04/29/2020 Active Start: 04-26-2020 NIFEdipine (WI OCARDIA XL) extended release tablet 30 mg norethindrone 0.35 mg oral tablet (2 sources) Start: 05-19-2024 End: 05-19-2025 take 1 tablet by mouth once daily norethindrone (Micronor) 0.35 MG tablet Indications: control counseling Take 1 tablet (0.35 mg) by mouth Daily 28 tablet 11 05/19/2024 05/19/2025 Active 2 ml ondansetron 2 mg/ml injection (1 source) Serotonin-3 Receptor Antagonist Start: 04-26-2020 4 mg, Intravenous, EVERY 6 HOURS PRN, Nausea, Starting Vilma 04/26/20 at 0421, oxyCODONE (1 source) Opioid Agonist Start: 04-26-2020 oxyCODONE (ROXICODONE) immediate release tablet 5 mg pantoprazole (2 sources) Proton Pump Inhibitor Start: 01-31-2023 pantoprazole Refills(s) 0 Start Date: 01/31/23 Status: Ordered polyethylene glycol 3350 36416 mg powder for oral solution (1 source) Osmotic Laxative Start: 04-27-2020 polyethylene glycol (GLYCOLAX) packet 17 g PreNata 29-1 MG CHEW (1 source) take 1 tablet by mouth once daily PreNata 29-1 MG CHEW Take 1 tablet by mouth daily 0 Active Multivitamins (2 sources) Start: 01-31-2023 take 1 tablet by mouth [...] tablet, Oral, DAILY, First dose on Vilma 12/31/20 at 0900 Begin when normal bowel activity resumes. progesterone 200 mg vaginal suppository (2 sources) Start: 01-31-2023 progesterone 2 00 mg vaginal suppository 200 mg = 1 [...] injection (4 sources) Start: 04-26-2020 10 mL, Intrave nous, EVERY 12 HOURS SCHEDULED (2 times per [...] for 10 day(s), 20 tab(s), Refill(s) 0, [facility]/pharm[facility] #[id number], 165, cm, 10/31/21 12:19:00 EDT, Height/Length [...] day(s), # 15 tab(s), Refills(s) 0, Pharmacy: [facility]/pharmacy #[id number], 165, cm, 11/01/21 8:11:00 EDT, Height/Length Dosing, 63, kg, 11/01/21 8:11:00 EDT, Weight Dosing Start Date: 11/01/21 Stop Date: 11/06/21 Status: Ordered Comment on above: Take 20 mg by mouth once daily. MV-Min-Fe Fum-FA-DHA ( 1 PO) (3 sources) End: 4 MV-Min-Fe Fum-FA-DHA ( 1 PO) Take by mouth. 03/08/2024 Discontinued tobramycin 3 mg/ml ophthalmic solution (2 sources) Aminoglycoside Antibacterial Start: 2 take 0.3 drop(s) into the eye(s) three times daily tobramycin (TOBREX) 0.3 % ophthalmic solution Use 0.3 Drops in both eyes three times daily. 0 10/30/2021 Active Comment on above: Use 0.3 Drops in bot h eyes three times daily. Problems Active Problems Problem Classification Problem Date Documented Da te Episodic/Chronic Allergic reactions (2 sources) Allergic disposition; Translations: [Allergy, unspecified, initial encounter] Onset: 11-01-2021 Episodic Contraceptive and procreative management (2 sources) Patient encounter status; Translations: [Encounter for other general counseling and advice on contraception] 05-19-2024 Episodic Deficiency and other anemia (2 sources) Anemia due to blood loss; Translations: [Acute on chronic blood loss anemia] Onset: 04-27-2020 04-27-2020 Chronic Deficiency and other anemia (6 sources) Iron deficiency anemia 01-20-2019 Episodic E Codes: Struck by; against (1 source) Struck by falling object; Translations: [Other cause of strike by thrown, projected or falling object, initial encounter] Episodic Early or threatened labor (2 sources) Threatened premature labor - not delivered ; Translations: [Threatened labor, antepartum] Onset: 04-25-2020 Resolved: 04-28-2020 04-28-2020 Episodic Gastrointestinal hemorrhage (6 sources) Rectal hemorrhage 01-20-2019 Episodic Hypertension complicating [...] pregnancies, first trimester] Onset: 09-26-2022 Episodic Other ear and sense organ disorders (1 source) Otalgia, right ear; Translations: [Otalgia of right ear] Onset: 04-19-2024 Episodic Other female genital disorders (1 source) [...] screening for nuchal translucency] Onset: 09-26-2022 Episodic Other upper respiratory infections (1 source) Acute upper respiratory infection; Translations: [Acute upper respiratory infection, unspecified] Onset: 04-19-2024 Episodic Superficial injury; contusion (2 sources) Contusion of foot; Translations: [Contusion of left foot, initial encounter] Onset: 09-18-2021 Episodic Past or Other Problems Problem Classification Problem Date Documented Da te Episodic/Chronic Unclassified (8 sources) Onset: 10-06-2019 Resolved: 04-27-2023 09-07-2020 Results Test Name Value Interpretation Reference Range Facility US OB TRANSVAGINALon 025 US OB TRANSVAGINAL EXAM: US OB TRANSVAGINAL HISTORY: Dating. COMPARISON: None available. TECHNIQUE: Two-dimensional transvaginal grayscale ultrasound imaging of the pelvis was performed. Color Doppler evaluation of the ovaries was also performed. FINDINGS: The uterus demonstrates a normal homogeneous echotexture. The cervix measures 5 cm in length and the cervical os is closed. The right ovary measures 2.2 x 1.4 x 2.1 cm and demonstrates a normal echotexture. There is normal color Doppler flow. The left ovary measures 4.5 x 1.5 x 2.8 cm and demonstrates a normal echotexture. There is normal color Doppler flow. No fluid is present within the cul-de-sac. There is a single, live intrauterine gestation identified with a heart rate of 171 beats per minute and a crown-rump length measurement of 1.8 cm, correlating to a gestational age of 8 weeks 2 days (+/- 5 days). There is no subchorionic hemorrhage visualized. A yolk sac is visualized. IMPRESSION: 1. Single, live intrauterine gestation 8 weeks, 2 days by LMP. Today's ultrasound measurements correlate with a gestational age of 8 weeks 2 days (+/- 5 days). OTF by today's ultrasound is 02/08/2025. 2. Normal color Doppler evaluation of the bilateral ovaries. Electronically Signed:Electronically signed by ZAC MARTINEZ II, MD, PHD at 02-Jul-2024 09:14:34 AM [facility] Normal Not Available Comment on above: Order Comment: US OB TRANSVAGINAL No LMP recorded. ED Clinical Summaryon 2023 ED Clinical Summary ED Clinical Summary [address] [address] ED Clinical Summary Person Information Name: ANAND HERRERA/New_Javad Age: 23 Years : 2000 Sex: Female Language: Emirati PCP: Bailey Gonzales DO Marital Status: Single Phone: [phone] Visit Id: Visit Reason: Ear pain; RIGHT EAR PAIN Speciality: Acuity: 5 Enc Type: Emergency Med Service: Emergency Arrival: 04/19/2024 01:04:22 Discharge: 04/19/2024 01:34:04 LOS: 000 00:30 Checkin: 04/19/2024 01:04:22 Checkout: 04/19/2024 01:34:04 Dispo Type: Home (Routine DC) EVENTS: Event Name Event Status Request Date/Time Start Date/Time Complete Date/Time Arrive Complete 04/19/2024 01:04:22 04/19/2024 01:04:22 04/19/2024 01:04:22 Document Home Meds Request 04/19/2024 01:04:22 Triage Complete 04/19/2024 01:04:22 04/19/2024 01:12:43 04/19/2024 01:12:43 Bed Assign Complete 04/19/2024 01:07:46 04/19/2024 01:07:46 04/19/2024 01:07:46 Dr Exam Complete 04/19/2024 01:07:46 04/19/2024 01:08:47 04/19/2024 01:08:47 RN Exam Complete 04/19/2024 01:07:46 04/19/2024 01:17:32 04/19/2024 01:17:32 Registration Complete 04/19/2024 01:08:47 04/19/2024 01:10:07 04/19/2024 01:10:07 Reg Complete Request 04/19/2024 01:10:07 Reg Bed Request Complete 04/19/2024 01:10:07 04/19/2024 01:10:07 04/19/2024 01:10:07 Discharge Complete 04/19/2024 01:29:20 04/19/2024 01:34:08 04/19/2024 01:34:08 Transfer Complete 04/19/2024 01:34:08 04/19/2024 01:34:08 04/19/2024 01:34:08 [address]: [address] [facility] [id number] [facility] DOC NOTES: MEDICAL INFORMATION: Prescriptions Given: Medications to Continue with No Changes Other [...] vaginal suppository) 1 Suppositories Vaginal every day. PATIENT EDUCATION INFORMATION: Instructions: Upper Respiratory Infection, Adult; Earache, Adult Follow up: With: Address: When: Bailey Soloriomarti, [facility] C, [facility] [address] [place] [address] [facility] (1) In 3 days 04/22/2024 Comments: Return to the emergency room if your pain recurs or any new symptoms. DIAGNOSIS: 1:Ear pain, right; 2:Upper respiratory infection Normal [facility] ED Note-Physicianon 04-19-20 ED Note-Physician ED Note-Physician Basic Information Time Seen: Amos Espinoza M.D. 04/19/2024 01:08 Chief Complaint pt to ED with c/o R ear pain for last few days. tylenol approx 1 hour ago with no relief. also has congestion. denies fevers. History of Present Illness The patient is a 23-year-old female who presented to the emergency room with right ear pain. The patient states for past couple of days she has been having runny nose/congestion. She reports slight cough. The patient states she has been having right ear pain on and off. The patient denies any fever, denies any chills. The patient denies any sore throat. The patient denies any other associated symptoms. Review of Systems Additional ROS info: Except as noted in the above Review of Systems and in the History of Present Illness all other systems have been reviewed and are negative or noncontributory. Physical Exam Vitals & Measurements T: 36.7 ???C(Oral) HR: 90(Peripheral) RR: 16 BP: 126/84 SpO2: 100% HT: 167 cm WT: 65.6 kg BMI: 23.52 General: alert, no acute distress Skin: warm, dry Head: no trauma, normocephalic Neck: Trachea midline, no tenderness, supple Eye: normal conjunctiva, sclera clear, PERRL, EOMI, vision unchanged ENMT: TM's clear, oral mucosa moist, no pharyngeal erythema or exudate, no swelling no erythema no tenderness over the mastoid process Cardiovascular: regular rate and rhythm, Respiratory: Lungs CTA, respirations non labored, breath sounds equal Extremities: no deformity, no trauma Neurological: Alert and oriented, speech normal, no focal neuro deficits Psychiatric: cooperative, affect appropriate for age Procedure [x ] The patient was diagnosed with upper respiratory infection and was not prescribed an antibiotic. [SATISFIES MIPS PERFORMANCE] [ ] The patient has competing comorbid condition within the last 12 months. The comorbid condition was [] (e.g., neutropenia, cystic fibrosis, chronic bronchitis, pulmonary edema, respiratory failure, rheumatoid lung disease). [MIPS PERFORMANCE EXCEPTION/EXCLUSION [ ] The patient is already on antibiotics, or has taken them within the last 30 days. [MIPS PERFORMANCE EXCEPTION/EXCLUSION] [ ] The patient had a competing diagnosis of [] (e.g. acute otitis media, chronic sinusitis, UTI, etc.) [MIPS PERFORMANCE EXCEPTION/EXCLUSION] [ ] The patient was diagnosed with upper respiratory infection and was prescribed or dispensed an antibiotic. [DOES NOT SATISFY MIPS PERFORMANCE] Medical Decision Making MEDICAL DECISION MAKING Number and Complexity of Problems Differential Diagnosis: [] [facility] Data External documents reviewed: [] My EKG interpretation: [] My CT interpretation: [] My X-ray interpretation: [] My Ultrasound interpretation: [] Decision rules/scores evaluated: [] Discussed with: [] Treatment and Disposition ED Course: The patient presented with ear pain on and off. She denies any pain at the time of the exam. More likely her symptoms are due to viral upper respiratory infection. Will discharge patient home. She was instructed to take decongestion [id number]. She is instructed to return to the emergency room if her symptoms get worse or any new symptoms. Shared decision making: [] Code status: [] Assessment/Plan 1. Ear pain, right (H92.01: Otalgia, right ear) 2. Upper respiratory infection (J06.9: Acute upper respiratory infection, unspecified) Disposition Plan Patient Discharge Condition Stable Discharge Disposition Discharge home Discharge Prescription List Prescriptions No active prescription medications Follow-up With When Contact Information Baileypaul Nguyenker In 3 days 04/22/2024 EST [address], [place] C, [facility] [address] [place] [address]- Business (1) Additional Instructions: Return to the emergency room if your pain recurs or any new symptoms. Patient Education Upper Respiratory Infection, Adult Earache, Adult Problem List/Past Medical History Ongoing Iron deficiency anemia Rectal hemorrhage Historical Medications Inpatient No active inpatient medications Home amoxicillin 500 mg Cap, 500 mg= 1 cap(s), Oral, q12hr aspirin 81 mg Chew Tab, 81 mg= 1 tab(s), Oral, Daily pantoprazole Multivitamins, 1 tab(s), Oral, Daily progesterone 200 mg vaginal suppository, 200 mg= 1 supp, Vaginal, Daily Vyvanse 40 mg oral capsule, 40 mg= 1 cap(s), Oral, qAM Allergies No Known Allergies Social History Alcohol - Denies Alcohol Use, 01/05/2019 Past, 01/05/2019 Employment/School - Low Risk, 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 Living situation: Home/Independent. Alcohol abuse in household: No. Substance abuse in household: No. Smoker in household: No., (more content not included)... Normal [facility] Comment on above: Result Comment: Elec tronically Signed By: Olga Davison, Amos Gaona\.br\Date and Time Signed: 04/19/24 03:09 EST ED Patient Summaryon 024 ED Patient Summary ED Patient Summary [address] [address] Patient Discharge Instructions Person Information Name: ANAND HERRERA Age: 23 Years Arrival Date: 04/19/2024 01:04:22 Discharge Diagnosis: 1:Ear pain, right; 2:Upper respiratory infection Primary Care Physician: Bailey Gonzales DO Provider Information Primary Provider: Amos Espinoza M.D. Advanced Field Service Consultant:None The exam and treatment you received in the Emergency Department were for an urgent problem and are not intended as complete care. It is important that you follow up with a doctor, nurse practitioner, or physician???s animal care assistant for ongoing care. If your symptoms become worse or you do not improve as expected and you are unable to reach your usual health care provider, you should return to the Emergency Department. We are available 24 hours a day. ANAND HERRERA has been given the following list of patient education materials, prescriptions and follow-up instructions: Follow-up Instructions: With: Address: When: Bailey Gonzales [facility] [place], [place] , [address] [address] Business (1) In 3 days 04/22/2024 Comments: Return to the emergency room if your pain recurs or any new symptoms. In the event that this physician does not participate in your insurance network, please consult with your insurance company to find a nearby participating provider. Patient Education Materials: Upper Respiratory Infection, Adult; Earache, Adult A MESSAGE TO ALL PATIENTS REGARDING OPIOIDS PRESCRIPTION OPIOIDS: WHAT YOU NEED TO KNOW Prescription opioids can be used to help relieve dvfuzusw-on-latvfi pain and are often prescribed following a [...] as well, even when taken as directed: ??? Tolerance???meaning you might need to take more of the medication for the same pain relief ??? Physical dependence???meaning you have symptoms of withdrawal when a medication is stopped ??? Increased sensitivity to pain ??? Constipation ??? Nausea, vomiting, and dry mouth ??? Sleepiness and dizziness ??? Confusion ??? Depression ??? Low levels of testosterone that can result in lower sex drive, energy, and strength ??? Itching and sweating RISKS ARE GREATER WITH: ??? History of drug misuse, substance use disorder, or overdose ??? Mental health conditions (such as depression or anxiety) ??? Sleep apnea ??? Older age (65 years and older) ??? Avoid alcohol while taking prescription opioids. Also, unless specifically advised by your health care provider, medications to avoid include: ??? Benzodiazepines (such as Xanax or Valium) ??? Muscle relaxants (such as Soma or Flexeril) ??? Hypnotics (such as Ambien or Lunesta) ??? Other prescription opioids KNOW YOUR OPTIONS Talk to your health care provider about ways to manage your pain that don???t involve prescription opioids. Some of these options may actually work better and have fewer risks and side effects. Options may include: ??? Pain relievers such as acetaminophen, ibuprofen, and naproxen ??? Some medication that are also used for depression or seizures ??? Physical therapy and exercise ??? Cognitive behavioral therapy, a psychological, goal-directed approach, in which patients learn how to modify physical, behavioral, and emotional triggers of pain and stress. IF YOU ARE PRESCRIBED OPIOIDS FOR PAIN: ??? Never take opioids in greater amounts or more often than prescribed. ??? Follow up with your primary health care provider. o Work together to create a plan on how to manage your pain. o Talk about ways to help manage your pain that don???t involve prescription opioids. o Talk about any and all concerns and side effects. ??? Help prevent misuse and abuse o Never sell or share prescription opioids. o Never use another person???s prescription opioids. ??? Store prescription opioids in a secure place and out of reach of others (this may include visitors, children, friends, and family). ??? Safely dispose of unused prescription opioids: Find your community drug take-back program or your pharmacy mail-back program, or flush them down the toilet, following guidance from the Food and Drug Administration (www.fda.gov/Drugs/Re sourcesForYou). ??? Visit www.cdc.gov/drugoverd ose to learn (more content not included)... Normal [facility] IGP,APTIMA HPV,AGE GDLNon AGE GDLN ACOG TESTING Note . [facility] Comment on above: TESTS RESULT FLAG UN ITS REF RANGE LAB Clinician Provided Cytology Information Source.............Cervix;Endocervix No. of containers..01 ThinPrep Vial Age Algo ACOG Magdalene... - 01 FLAG LEGEND: L-Low Normal,H-High Normal,LL-Alert Low,HH-Alert High <-Panic Low,>-Panic High,A-Abnormal,AA-Critical Abnormal Performed at: 01 =[facility] [address] Clara Castro MD, IGP, RFX APTIMA HPV ASCU Note . [facility] Comment on above: TESTS RESULT FLAG UN ITS REF RANGE LAB DIAGNOSIS: 02 NEGATIVE FOR INTRAEPITHELIAL LESION OR MALIGNANCY. Specimen adequacy: 02 Satisfactory for evaluation. Endocervical and/or squamous metaplastic cells (endocervical component) are present. Performed by: 02 Simona Platt, Operations Label Clerk ([facility]) . 02 Note: Note 02 The Pap smear is a screening test designed to aid in the detection of premalignant and malignant conditions of the uterine cervix. It is not a diagnostic procedure and should not be used as the sole means of detecting cervical cancer. Both false-positive and false-negative reports do occur. Test Methodology: Note 02 The MAG Interactive(R) Pull Tab Dealer was unable to read this specimen. Therefore a manual review was performed. FLAG LEGEND: L-Low Normal,H-High Normal,LL-Alert Low,HH-Alert High <-Panic Low,>-Panic High,A-Abnormal,AA-Critical Abnormal Performed at: [address] [place] [address] Clara Castro MD, . 02 The HPV DNA reflex criteria were not met with this specimen result therefore, no HPV testing was performed. The HPV DNA reflex criteria were not met with this specimen result therefore, no HPV testing was performed. Performed at: =[address], [place] [id number] Spectrographic Analyst: Clara Castro MD, Phone: [phone] Performed at: [address], [place], [place] [id number] Spectrographic Analyst: Clara Castro MD, Phone: [phone] BRUSH-SPATULA CERVIX ENDOCERVIX Formerly named [facility] OB Completed scan + Detailed Anatomyon 11-10-2022 [...] EFW (oz) 10 oz EFW by: Hadlock ([id number]-FL) Extended Medical Physics Teacher 7.6 mm CM 4.4 mm 35% Nicolaides [...] Normal LVOT view: Normal 3-vessel view: Normal 6-grfkvh-xhwxpim view: Normal Heart / Thorax Situs: situs [...] know sex (more content not included)... Normal [facility] OB NT (Nuchal Translucency)o n [...] gestational sac with a live fetus - [place] rump length is consistent with given OTF [...] Extended Nasal bone: present Anatomy Heart: Normal [place] and Situs. Stomach: Visible, with correct situs. [...] Electronically signed by: JESS FELDMAN MD Normal [facility] HEP B SURFACE ANTIGEN SCREEN on 09-05-2022 HBsAg Screen Negative Normal Negative [facility] Comment on above: Performed By: #### H BSANS #### [facility] [address] [address] [address] Stoney Rodriguez HEPATITIS C VIRUS AB W/ REFL EX QUANTon 09-05-2022 HCV AB Non-Reactive Normal Non Reactive [facility] Comment on above: Performed By: #### H CVPCRR #### [facility] [address] [place] [address] Dr. Stoney Rodriguez Interpretation: Comment Normal [facility] Comment on above: Result Comment: Not infected with HCV unless early or acute infection is suspected (which may be delayed in an immunocompromised individual), or other evidence exists to indicate HCV infection. Performed By: #### H CVPCRR #### [facility] [address] [place] [address] Dr. Stoney Rodriguez HIV 1 AND 2 WITH REFLEXon HIV Screen 4th Generation wRfx Non-Reactive Normal Non Reactive [facility] Comment on above: Result Comment: HIV Negative HIV-1/HIV-2 antibodies and HIV-1 p24 antigen were NOT detected. There is no laboratory evidence of HIV infection. Performed By: #### T NS #### [facility] [address] [place] [address] Dr. Stoney Rodriguez RPR QUANTon 09-05-2022 Rapid Plasma Reagin, Quant Non-Reactive Normal NonRea<1:1 [facility] Comment on above: Result Comment: Plea se Note: This test does not meet current guidelines for screening and diagnosis of syphilis. This test is intended for following treatment response in patients being treated for syphilis infection. To screen for syphilis infection, a reflex cascade that includes both RPR and a treponema-specific assay should be utilized, such as Treponema pallidum (Syphilis) Screening [place] (766305) or Rapid Plasma Reagin (RPR) Test With Reflex to Quantitative RPR and Confirmatory Treponema pallidum Antibodies ([id number]). Performed By: #### R PRQ #### [facility] [address] [place] [address] Dr. Stoney Rodriguez RUBELLA AB IGGon 09-05-2022 Rubella Antibodies, IgG 11.40 index Normal Immune >0.99 [facility] Comment on above: Result Comment: Non- immune <0.90 Equivocal 0.90 - 0.99 Immune >0.99 Performed By: #### R UBIGG #### [facility] [address] [place] [address] Dr. Stoney Rodriguez BOX TEST SENT OUTon 09-05-19 SENT TO REF LAB 09/04/22 Normal [facility] Comment on above: Performed By: #### B OX #### [facility] [address] [place] [address] Dr. Stoney Rodriguez CBC AUTO DIFFon 09-04-2022 BASO # 0.0 103/ul Normal 0.0-0.1 [facility] Comment on above: Performed By: #### C BC #### [facility] [address] [place] [address] Dr. Stoney Rodriguez Basophils/100 WBC (Bld) 0.4 % Normal 0.2-2.0 [facility] Comment on above: Performed By: #### C BC #### [facility] [address] [place] [address] Dr. Stoney Rodriguez EO # 0.1 103/ul Normal 0.0-0.7 [facility] Comment on above: Performed By: #### C BC #### [facility] [address] [place] [address] Dr. Stoney Rodriguez Eosinophils/100 WBC (Bld) 0.7 % Critically low 0.9-7.0 [facility] Comment on above: Performed By: #### C BC #### [facility] [address] [place] [address] Dr. Stoney Rodriguez Erythrocyte distribution width (RBC) [Ratio] 14.5 % Normal 11.0-15.0 [facility] Comment on above: Performed By: #### C BC #### [facility] [address] [place] [address] Dr. Stoney Rodriguez Hematocrit (Bld) [Volume fraction] 36.7 % Normal 36.0-48.0 [facility] Comment on above: Performed By: #### C BC #### [facility] [address] [place] [address] Dr. Stoney Rodriguez Hemoglobin (Bld) [Mass/Vol] 11.9 g/dL Critically low 12.0-16.0 [facility] Comment on above: Performed By: #### C BC #### [facility] [address] [place] [address] Dr. Stoney Rodriguez IG # 0.03 10e3/ul Normal 0.00-0.03 [facility] Comment on above: Performed By: #### C BC #### [facility] [address] [place] [address] Dr. Stoney Rodriguez IG % 0.4 % Normal 0.0-0.5 [facility] Comment on above: Performed By: #### C BC #### [facility] [address] [place] [address] Dr. Stoney Rodriguez LYMPH # 2.0 103/ul Normal 1.2-3.8 [facility] Comment on above: Performed By: #### C BC #### [facility] [address] [place] [address] Dr. Stoney Rodriguez Lymphocytes/100 WBC (Bld) 23.3 % Normal 20.5-60.0 [facility] Comment on above: Performed By: #### C BC #### [facility] [address] [place] [address] Dr. Stoney Rodriguez MANUAL DIFF REQ NO Normal [facility] Comment on above: Performed By: #### C BC #### [facility] [address] [place] [address] Dr. Stoney Rodriguez MCH (RBC) [Entitic mass] 28.7 pg Normal 26.7-34.0 [facility] Comment on above: Performed By: #### C BC #### [facility] [address] [place] [address] Dr. Stoney Rodriguez MCHC (RBC) [Mass/Vol] 32.4 g/dL Normal 29.9-35.2 [facility] Comment on above: Performed By: #### C BC #### [facility] [address] [place] [address] Dr. Stoney Rodriguez MCV (RBC) [Entitic vol] 88.6 fL Normal 81.0-99.0 [facility] Comment on above: Performed By: #### C BC #### [facility] [address] [place] [address] Dr. Stoney Rodriguez MONO # 0.5 103/ul Normal 0.3-0.8 [facility] Comment on above: Performed By: #### C BC #### [facility] [address] [place] [address] Dr. Stoney Rodriguez Monocytes/100 WBC (Bld) 6.2 % Normal 1.7-12.0 [facility] Comment on above: Performed By: #### C BC #### [facility] [address] [place] [address] Dr. Stoney Rodriguez NEUT # 5.9 103/ul Normal 1.4-6.5 [facility] Comment on above: Performed By: #### C BC #### [facility] [address] [place] [address] Dr. Stoney Rodriguez Neutrophils/100 WBC (Bld) 69.0 % Normal 43.0-75.0 [facility] Comment on above: Performed By: #### C BC #### [facility] [address] [place] [address] Dr. Stoney Rodriguez Platelet mean volume (Bld) [Entitic vol] 9.7 fL Normal 9.5-13.5 [facility] Comment on above: Performed By: #### C BC #### [facility] [address] [place] [address] Dr. Stoney Rodriguez PLT 378 103/ul Normal 150-450 [facility] Comment on above: Performed By: #### C BC #### [facility] [address] [place], [place] [id number] Dr. Stoney Rodriguez RBC 4.14 106/ul Critically low 4.20-5.40 [facility] Comment on above: Performed By: #### C BC #### [facility] [address] [place] [address] Dr. Stoney Rodriguez WBC 8.5 103/ul Normal 4.0-11.0 [facility] Comment on above: Performed By: #### C BC #### [facility] [address] [place] [address] Dr. Stoney Rodriguez CULTURE URINEon 09-04-2022 CULTURE URINE Culture Observations : NO GROWTH. Normal [facility] Comment on above: Performed By: #### U RCX #### [facility] [address] [place] [address] Dr. Stoney Rodriguez GLYCOHEMOGLOBIN A1Con 2022 ADA RECOMMENDATION SEE BELOW Normal [facility] Comment on above: Result Comment: ADA RECOMMENDED LIMIT 4.0 - 6.0 ADA THERAPEUTIC TARGET < 7.0 ACTION SUGGESTED > 7.0 Performed By: #### A 1C #### [facility] [address] [place] [address] Dr. Stoney Rodriguez Glucose [Mass/Vol] 94 mg/dL Normal [facility] Comment on above: Performed By: #### A 1C #### [facility] [address] [place] [address] Dr. Stoney Rodriguez HbA1c (Bld) [Mass fraction] 4.9 % Normal 4.5-6.2 [facility] Comment on above: Performed By: #### A 1C #### [facility] [address] [place] [address] Dr. Stoney Rodriguez TSHon 09-04-2022 TSH 0.653 uIU/mL Normal 0.358-3.740 [facility] Comment on above: Performed By: #### T SH #### [facility] [address] [place] [address] Dr. Stoney Rodriguez TYPE AND SCREENon 09-04-2022 TYPE AND SCREEN Negative Normal [facility] Comment on above: Performed By: #### T NS #### [facility] [address] [place] [address] Dr. Stoney Rodriguez US PREG TVon 08-14-2022 [...] by: BILLIE SMITH Date: 2022-08-14 16:07 Normal [facility] CHEMISTRYOrdered By: Ida Mcfarland on 12-19-2021 Anion gap [Moles/Vol] 11 mmol/L Normal 6 - 16 mEq/L [facility] Remisol Calcium [Mass/Vol] 8.9 mg/dL Normal 8.9 [...] rate/Area] mL/min/1.73 m2 Normal >=59mL/min/1 .73 m2 [facility] Chem S GFR/1.73 sq M.predicted among non-blacks MDRD (S/P/Bld) [Vol rate/Area] mL/min/1.73 m2 Normal >=59mL/min/1 .73 m2 [facility] Chem S COAGULATIONOrdered By: Randall Mcfarland on 12-19-2021 aPTT Coag (PPP) [Time] 30.1 s Normal 25.1 - 36.5 second(s) [facility]ag INR Coag (PPP) [Relative time] 0.9 {INR} Invalid Interpretation Code [facility] PT Coag (PPP) [Time] 9.9 s Normal 9.4 - 1 2.5 second(s) [facility] HEMATOLOGYOrdered By: SYSTEM [...] 7.6 E9/L Normal 4.0 - 11.0 E9/L [facility] HemeAutoSS SEROLOGYOrdered By: Ida Mcfarland on 12-19-2021 Beta hCG Ql Negative (12/19/21 2:12 AM) Normal [facility] Man Sero CULTURE URINEon 04-28-2020 CULTURE URINE [...] <= 1 S Amikacin(JAI) 4 S Normal [facility] Comment on above: Performed By: #### C /UR ####[address] [id number] [id number] Culture, Urineon 04-28-2020 Bacteria identified Cx Nom (U) 10,000-50,000 CFU/ml [place], [place] Bacteria identified Cx Nom (U) Normal urogenital praneeth present. Abnormal [place], [place] Bacteria identified Cx Nom (U) Escherichia coli Abnormal [place] Interpretation and review of laboratory results Abnormal [place] Test Performed by [facility], [address] [place] [id number] [place] Hemoglobinon 04-27-2020 Hemoglobin (Bld) [Mass/Vol] 7.1 g/dL Low 11.7-16.0 [facility] Comment on above: Performed By: #### H EMGB #### [address] [address] Hemoglobin (Bld) [Mass/Vol] 7.1 g/dL Low 11.7 - 16 g/dL [place] Interpretation and review of laboratory results Abnormal [place] Test Performed by [facility], [address] [place] [address] [place] Group B Strep Screen PCRon 1 [...] - Real Time PCR (Cepheid) Normal [facility] Comment on above: Performed By: #### G [facility] ####[facility] [place] [address] Group B Strep, PCRon 020 Group B Strep Screen PCR NEGATIVE Expected Result: Negative CDC guidelines for prevention of Group B Strep disease recommends collection of both vaginal and rectal specimens for optimal recovery of GBS. Methodology - Real Time PCR (Cepheid) [place], [place] Test Performed by [facility], [address] [place] [address] [place], [place] Op Noteon 04-26-2020 Op Note PATIENT: ANAND HERRERA ADMISSION DATE: 04/25/2020 SURGERY DATE: 04/26/2020 DATE OF : 2000 AGE: 19 ADMITTING PHYSICIAN: Fariha Matos DO ATTENDING PHYSICIAN: Zac Chowdhury MD DICTATING PHYSICIAN: Zac Chowdhury MD OPERATIVE RECORD Procedure: PRIMARY LOW [...] She also did have a TAP block. [employer]: Dr. Benjamin. Replacement: 1500 cc of crystalloid. [...] 1500 cc of crystalloid. Diskriter Job ID: [id number] Zac Chowdhury MD DOD:04/26/2020 07:56 A JAKUB/kimmy DOT:04/26/2020 10:55 A Job Number: [id number] Document Number: [id number] cc: Zac Chowdhury MD [address] [place] [id number] Fariha Matos [address] [facility] [address] Normal [facility] C. Trachomatis / N. Gonorrho eae, DNA Probeon 04-25-2020 C. trachomatis DNA ARCHANA+probe Ql (Genital specimen) NOT Detected Chlamydia trachomatis Nucleic Acid NOT Detected by DNA Amplification using the Cepheid System. Culture is the only recommended test in medical-legal cases such as suspected child abuse or molestation. [place], [place] N. gonorrhoeae DNA ARCHANA+probe Ql (Unsp spec) NOT Detected Neisseria gonorrhoeae Nucleic Acid NOT Detected by DNA Amplification using the Cepheid System. Culture is the only recommended test in medical-legal cases such as suspected child abuse or molestation. [place] Test Performed by [facility], [address] [place] [id number] [place] [address] CBCon 04-25-2020 Erythrocyte distribution width (RBC) [Ratio] 18.2 % High 11.5 - 14.5 % [place] Hematocrit (Bld) [Volume fraction] 30.6 % Low 35 - 47 % [place] Hemoglobin (Bld) [Mass/Vol] 9.7 g/dL Low 11.7 - 16 g/dL [place] Interpretation and review of laboratory results Abnormal [place] MCH (RBC) [Entitic mass] 26.2 pg 26 - 34 pg [place] MCHC (RBC) [Mass/Vol] 31.9 % Low 32 - 36 % [place] MCV (RBC) [Entitic vol] 82.2 fL 79 - 98 fL [place] Platelet mean volume (Bld) [Entitic vol] 8.1 fL 7.4 - 10.4 fL [place] Platelets (Bld) [#/Vol] 249 10*3/uL 140 - 440 10*3/uL [place] RBC (Bld) [#/Vol] 3.72 10*6/uL Low 3.8 - 5.2 10*6/uL [place] WBC (Bld) [#/Vol] 13.3 10*3/uL High 3.6 - 10.7 10*3/uL [place] Test Performed by [facility], [address] [place] [id number] [place] CREATININE, RANDOM URINEon 1 Creatinine (U) [Mass/Vol] 66.8 mg/dL No Range [place], [place] Chlamydia and GC PCR Panelon 04-25-2020 [...] suspected child abuse or molestation. Normal [facility] Comment on above: Performed By: #### C TNGP ####[facility] [place], [place] Comp Metabolic Panelon 04-25 Calcium [Mass/Vol] 8.5 mg/dL Normal 8.4-10.4 [facility] Comment on above: Performed By: #### P T/AP, CMP3, HEMOG, FIBGN #### [facility] [address] [place], [place] Glucose [Mass/Vol] 97 mg/dL Normal 70-100 [facility] Comment on above: Performed By: #### P T/AP, CMP3, HEMOG, FIBGN #### [facility] [address] [place], [place] ALP [Catalytic activity/Vol] 114 U/L Normal 38-126 [facility] Comment on above: Result Comment: Slig htly hemolysed, interpret with caution. Performed By: #### P T/AP, CMP3, HEMOG, FIBGN #### [facility] [address] [place], [place] ALT [Catalytic activity/Vol] 19 U/L Normal 0-34 [facility] Comment on above: Result Comment: The ALT test is performed by an updated assay method. Please note that the reference intervals have been changed and are now sex specific. Performed By: #### P T/AP, CMP3, HEMOG, FIBGN #### [facility] [address] [place], [place] Anion Gap 6 Normal [facility] Comment on above: Performed By: #### P T/AP, CMP3, HEMOG, FIBGN #### [facility] [address] [place], [place] AST [Catalytic activity/Vol] 39 U/L Normal 15-46 [facility] Comment on above: Result Comment: Slig htly hemolysed, interpret with caution. Performed By: #### P T/AP, CMP3, HEMOG, FIBGN #### [facility] [address] [place], [place] Bilirubin [Mass/Vol] 0.5 mg/dL Normal 0.2-1.3 [facility] Comment on above: Performed By: #### P T/AP, CMP3, HEMOG, FIBGN #### [address] CO2 [Moles/Vol] 20 mmol/L Low 22-30 [facility] Comment on above: Performed By: #### P T/AP, CMP3, HEMOG, FIBGN #### [facility] [address] [place], [place] Creatinine [Mass/Vol] 0.63 mg/dL Normal 0.52-1.25 [facility] Comment on above: Performed By: #### P T/AP, CMP3, HEMOG, FIBGN #### [facility] [address] [place], [place] eGFR OTHER > 90.0 Normal >60 [facility] Comment on above: Result Comment: KDIG O [...] P T/AP, CMP3, HEMOG, FIBGN #### [facility] [address] [place], [place] GFR/1.73 sq M.predicted among blacks MDRD (S/P/Bld) [Vol rate/Area] mL/min/{1.73_m2} Normal >60 [facility] Comment on above: Performed By: #### P T/AP, CMP3, HEMOG, FIBGN #### [facility] [address] [place], [place] Protein [Mass/Vol] 6.9 g/dL Normal 6.3-8.2 [facility] Comment on above: Performed By: #### P T/AP, CMP3, HEMOG, FIBGN #### [place] [address] [address] [place], [place] Urea nitrogen [Mass/Vol] 14 mg/dL Normal 7-20 [facility] Comment on above: Performed By: #### P T/AP, CMP3, HEMOG, FIBGN #### [place] [address] [address] [place], [place] Potassium [Moles/Vol] 4.3 mmol/L Normal 3.5-5.1 [facility] Comment on above: Result Comment: Slig htly hemolysed, interpret with caution. Performed By: #### P T/AP, CMP3, HEMOG, FIBGN #### [place] [address] [address] [place], [place] Sodium [Moles/Vol] 134 mmol/L Low 135-145 [facility] Comment on above: Performed By: #### P T/AP, CMP3, HEMOG, FIBGN #### [place] [address] [address] [place], [place] Albumin [Mass/Vol] 3.4 g/dL Low 3.5-5.0 [facility] Comment on above: Performed By: #### P T/AP, CMP3, HEMOG, FIBGN #### [place] [address] [address] [place], [place] Chloride [Moles/Vol] 107 mmol/L Normal 98-107 [facility] Comment on above: Performed By: #### P T/AP, CMP3, HEMOG, FIBGN #### [place] [address] [address] [place], [place] Comprehensive Metabolic Pane parag 04-25-2020 Albumin [Mass/Vol] 3.4 g/dL Low 3.5 - 5 g/dL [facility] [place], [place] ALP [Catalytic activity/Vol] 114 U/L 38 - 126 U/L [place] Comment on above: Slightly hemolysed, interpret with caution. ALT [Catalytic activity/Vol] 19 U/L 0 - 34 U/L [place] Comment on above: The ALT test is perf ormed by an updated assay method. Please note that the reference intervals have been changed and are now sex specific. Anion gap [Moles/Vol] 6 mmol/L [place], [place] AST [Catalytic activity/Vol] 39 U/L 15 - 46 U/L [place] Comment on above: Slightly hemolysed, interpret with caution. Bilirubin Ql (U) 0.5 mg/dL 0.2 - 1.3 mg/dL [place] Calcium [Mass/Vol] 8.5 mg/dL 8.4 - 10. 4 mg/dL [place] Chloride [Moles/Vol] 107 mmol/L 98 - 10 7 mmol/L [place] CO2 [Moles/Vol] 20 mmol/L Low 22 - 30 mmol/L [place] Creatinine [Mass/Vol] 0.63 mg/dL 0.52 - 1.25 mg/dL [place] EGFR IF NonAfrican [place] >90.0 >60 mL/min [place] Comment on above: KDIGO guidelines pro [...] MDRD (S/P/Bld) [Vol rate/Area] mL/min/{1.73_m2} >60 mL/min [place] Glucose [Mass/Vol] 97 mg/dL 70 - 100 mg/dL [place] Interpretation and review of laboratory results Abnormal [place] Potassium [Moles/Vol] 4.3 mmol/L 3.5 - 5.1 mmol/L [place] Comment on above: Slightly hemolysed, interpret with caution. Protein [Mass/Vol] 6.9 g/dL 6.3 - 8.2 g/dL [place] Sodium [Moles/Vol] 134 mmol/L Low 135 - 145 mmol/L [place] Urea nitrogen [Mass/Vol] 14 mg/dL 7 - 20 mg/dL [place] Creatinine, Ur Randomon 03-29 Creatinine, Ur Random 66.8 mg/dL Normal No Range [facility] Comment on above: Performed By: #### C RTUR, TPUR, MAT #### [address] Fibrinogenon 04-25-2020 Fibrinogen 390 mg/dL Normal 200-400 [place], [place] Comment on above: Performed By: #### P T/AP, CMP3, HEMOG, FIBGN #### [address] Hemogramon 04-25-2020 Erythrocyte distribution width (RBC) [Ratio] 18.2 % High 11.5-14.5 [facility] Comment on above: Performed By: #### P T/AP, CMP3, HEMOG, FIBGN #### [address] Hematocrit (Bld) [Volume fraction] 30.6 % Low 35.0-47.0 [facility] Comment on above: Performed By: #### P T/AP, CMP3, HEMOG, FIBGN #### [place] [address] [place], [place] Hemoglobin (Bld) [Mass/Vol] 9.7 g/dL Low 11.7-16.0 [facility] Comment on above: Performed By: #### P T/AP, CMP3, HEMOG, FIBGN #### [place] [address] [address] [place], [place] MCH (RBC) [Entitic mass] 26.2 pg Normal 26.0-34.0 [facility] Comment on above: Performed By: #### P T/AP, CMP3, HEMOG, FIBGN #### [place] [address] [address] [place], [place] MCHC 31.9 % Low 32.0-36.0 [facility] Comment on above: Performed By: #### P T/AP, CMP3, HEMOG, FIBGN #### [place] [address] [address] [place], [place] MCV (RBC) [Entitic vol] 82.2 fL Normal 79.0-98.0 [facility] Comment on above: Performed By: #### P T/AP, CMP3, HEMOG, FIBGN #### [place] [address] [place], [place] Platelet mean volume (Bld) [Entitic vol] 8.1 fL Normal 7.4-10.4 [facility] Comment on above: Performed By: #### P T/AP, CMP3, HEMOG, FIBGN #### [place] [address] [address] [place], [place] Platelets (Bld) [#/Vol] 249 10*3/uL Normal 140-440 [facility] Comment on above: Performed By: #### P T/AP, CMP3, HEMOG, FIBGN #### [place] [address] [address] [place], [place] RBC (Bld) [#/Vol] 3.72 10*6/uL Low 3.80-5.20 [facility] Comment on above: Performed By: #### P T/AP, CMP3, HEMOG, FIBGN #### [place] [address] [place], [place] WBC (Bld) [#/Vol] 13.3 10*3/uL High 3.6-10.7 [facility] Comment on above: Performed By: #### P T/AP, CMP3, HEMOG, FIBGN #### [facility] [address] [place], [place] Medication Assisted Treatmen t Panelon 04-25-2020 Fentanyl Negative Normal [facility] Comment on above: Performed By: #### C RTUR, TPUR, MAT #### [facility] [address] [place], [place] Amphetamines Ql (U) Negative Normal [facility] Comment on above: Performed By: #### C RTUR, TPUR, MAT #### [facility] [address] [place], [place] Barbiturates Negative Normal [facility] Comment on above: Performed By: #### C RTUR, TPUR, MAT #### [place] [address] [address] [place], [place] Benzodiazepines Ql (U) Negative Normal [facility] Comment on above: Performed By: #### C RTUR, TPUR, MAT #### [place] [address] [address] [place], [place] Buprenorphine Screen Negative [facility] Comment on above: Performed By: #### C RTUR, TPUR, MAT #### [place] [address] [address] [place], [place] Cocaine Ql (U) Negative Normal [facility] Comment on above: Performed By: #### C RTUR, TPUR, MAT #### [place] [address] [address] [place], [place] Ethanol [Mass/Vol] Negative Normal [facility] Comment on above: Performed By: #### C RTUR, TPUR, MAT #### [facility] [address] [place], [place] Methadone Ql (U) Negative Normal [facility] Comment on above: Performed By: #### C RTUR, TPUR, MAT #### [place] [address] [address] [place], [place] Opiates Ql (U) Negative Normal [facility] Comment on above: Performed By: #### C RTUR, TPUR, MAT #### [place] [address] [address] [place], [place] Oxycodone/Oxymorphone Negative Normal [facility] Comment on above: Performed By: #### C RTUR, TPUR, MAT #### [facility] [address] [facility] PCP Negative Normal [facility] Comment on above: Performed By: #### C RTUR, TPUR, MAT #### [facility] [address] [facility] [place] THC Negative Normal [facility] Comment on above: Performed By: #### C RTUR, TPUR, MAT #### [facility] [address] [place], [place] Amphetamines Ql (U) Negative [facility], [place] Benzodiazepines Ql (U) Negative [facility], [place] Cocaine Ql (U) Negative [facility], [place] Ethanol [Mass/Vol] Negative [facility], [place] Methadone Ql (U) Negative [facility], [place] Opiates Ql (U) Negative [facility], [place] Sodium [Moles/Vol] See Below [place], [place] Comment on above: The expected value [...] performed using non-forensic procedures. Test Performed by [facility], [facility] [place] [facility], [place] MAT Panel Test Comment See Below Normal [...] By: #### C RTUR, TPUR, MAT #### [address] [address] Metabolic Panelon 04-25-2020 Sodium [Moles/Vol] Negative [place] Otheron 04-25-2020 Test Performed by [address] Test Performed by [address] PROTEIN, URINE, RANDOMon Interpretation and review of laboratory results Abnormal [place] Protein (U) [Mass/Vol] 88 mg/dL High No Range [place], [place] PROTIME/INR & PTTon 04-25-20 20 INR Coag (PPP) [Relative time] 0.9 {INR} [place] Comment on above: Recommended Anticoag ulant [...] Random 88 mg/dL High No Range [facility] Comment on above: Performed By: #### C RTUR, TPUR, MAT #### [place] [address] [address] [place], [place] Protime AND APTTon 0 aPTT Coag (Bld) [Time] 21.4 s Normal 20.0-30.5 [place], [place] Comment on above: NOTE: The therapeuti c time for Heparin anticoagulation, based on Xa activity inhibition, is an APTT of 46-80 seconds. Result Comment: NOTE : The therapeutic time for Heparin anticoagulation, based on Xa activity inhibition, is an APTT of 46-80 seconds. Performed By: #### P T/AP, CMP3, HEMOG, FIBGN #### [facility] [address] [place], [place] INR 0.9 Normal 0.9-1.1 [facility] Comment on above: Result Comment: Trell mmended [...] P T/AP, CMP3, HEMOG, FIBGN #### [facility] [address] [place], [place] PT Coag (PPP) [Time] 9.6 s Normal 9.0-12.0 [place], [place] Comment on above: . Result Comment: . Performed By: #### P T/AP, CMP3, HEMOG, FIBGN #### [place] [address] [address] [place], [place] TS GELon 04-25-2020 TS GEL ABO Group: O Rh, Gel: POS Antibody Screen Gel: NEG Normal [facility] Comment on above: Performed By: #### T SGL ####[facility] TYPE AND SCREENon 04-25-2020 Sodium [Moles/Vol] Negative [facility], [place] Sodium [Moles/Vol] O [facility], [place] Sodium [Moles/Vol] Positive [facility], [place] Test Performed by [address] [address] [facility], [place] ABO, External Resulton 04-10 ABO, External Result O [facility], [place] C. Trachomatis, External Res ulton 04-10-2020 C. Trachomatis, External Result Negative [facility] [place] HIV, External Resulton 04-10 HIV, External Result Negative [facility], [place] Hepatitis B, External Result on 04-10-2020 Hep B, External Result Negative [facility], [place] N. Gonorrhoeae, External Res ulton 04-10-2020 N. Gonorrhoeae, External Result Negative [facility], [place] Otheron 04-10-2020 Verified with Fer Alejo rn [place], [place] RPR, External Labon 04-10-20 20 RPR, External Result Negative [facility], [place] Rh Factor, External Resulton 04-10-2020 Rh Factor, External Result Positive [place] Rubella Titer, External Resu lton 04-10-2020 Rubella Titer, External Result IMMUNE [place], [place] Progress Noteon 03-08-2020 Educational Aid Authentication Interface Message Text Pediatric Cardiology Echocardiogram Visit: Consultation REASON FOR CONSULTATION: Anand Herrera is a 19 y.o. old female being seen today in our Cardiology Clinic at the request of Zac Marcum for our opinion or medical advice [...] or performed in visit on 03/08/20 Echo [facility] [place] [address] [email or web address] ---- Echocardiogram Report M-mode, complete 2D, complete spectral Doppler, and color Doppler PATIENT: Anand Herrera STUDY DATE/TIME: Mar 08 2020 12:04PM HEIGHT: : 2000 WEIGHT: AGE: 19yr BSA/BMI: / GENDER: F BP: 137 / 64 LOCATION: Heart [facility] REFERRING PHYSICIAN: Zac Martinez Md ORDERING PROVIDER: Darby Agee Cnp [...] ---- STUDY AND PROCEDURE DATA: Procedure Description: Hilda Borrero ([id number]) . Study status: Routine. Location: lab. Procedure: [...] a patent foramen ovale. There is a [id number] shunt. Left atrium - The atrium is [...] all we discussed. Hannah Guevara MD [facility] Tobacco Wrapping Machine Tender [facility] Clinical Flavoring Oil Filterer of Pediatrics [facility] Counseling and coordination of care for this patient was greater than 35minutes which is more than 50% of the total time of 60 minutes spent on the encounter. Normal [facility] Educational Aid Authentication Interface Message Text Pediatric Hand Surgery Consult Note NAME: Anand Herrera DATE OF SERVICE: 03/08/2020 PRIMARY CARE PROVIDER: Zac Martinez MD REFERRING PROVIDER: Zac Martinez MD REASON FOR CONSULTATION: Anand Herrera [...] to requesting provider. 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 Consent to share information with [facility] team, OB and wind turbine performance engineer signed. Pt plans to deliver at [facility] with Dr Martinez. Lamp Tester And Inspector is not yet decided. female fetus- name is Cygnet Method of feeding: breast and bottle Ultrasound findings today: See report in procedures for details. Reinforced continued OB care with Dr Martinez- next appointment- next week Normal [facility] Educational Aid Authentication Interface Message Text MFM genetic counseling [...] Herrera also met with Jerilyn Agee, Clinical Commercial Teller from our Treatment Center. Jerilyn will continue to help coordinate and care. consultation with Pediatric Orthopedic Surgery in the Hand and Upper Extremity Clinic is being arranged. follow up with Pediatric Orthopedic Surgery should be within one month of age or otherwise as per their recommendations. Call [phone] to schedule. Consultation with Medical Genetics should be considered in the period, especially if additional concerns are noted after delivery. The wind turbine performance engineer or patient can request this consultation. Call [phone] to schedule. Indicate that you were followed by the [facility] when scheduling. Diagnosis: DIAGNOSIS. 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 Plan: 1. Continued obstetrical care with her primary electrical sign wirer helper is recommended. 2. Follow up q4 weeks to evaluate biometric parameters and anatomy. These are planned with the [facility]/your office. 3. surveillance as follows: weekly BPP beginning at 32 weeks. 4. consultation with Pediatric Orthopedic Surgery in the Hand and Upper Extremity Clinic is being arranged. 5. Delivery is appropriate at your local institution/already planned in [place] with follow up as indicated. 6. Mode and timing of delivery are based on the usual obstetrical indications. 7. Anticipate normal nursery. OR Neonatology/Pediatric di to be present at delivery to evaluate and determine nursery placement. 8. follow up with Pediatric Orthopedic Surgery should be within one month of age or otherwise as per their recommendations. Call [phone] to schedule. 9. Consultation with Medical Genetics should be considered in the period, especially if additional concerns are noted after delivery. The wind turbine performance engineer or patient can request this consultation. Call [phone] to schedule. Indicate that you were followed by the [facility] when scheduling. 9. Other follow up as clinically indicated. Her complete [facility] Plan of Care summary will be distributed. The total patient time of the visit was 30 minutes, of which greater than 50% of the time was spent counseling and coordinating care. Junior Kat MD Normal [facility] Progress Noteon 02-15-2020 Educational Aid Authentication Interface Message Text Dating for consult Normal [facility] Vital Signs Date Time Vital Sign Value Performing Clinician Facility 05-19-2024 11:32-0500 Body mass index (BMI) [Ratio] 23.4 kg/m2 Marco A Greene DO Work Phone: [facility] 05-19-2024 11:32-0500 Body weight 65.77 kg Marco A Jc DO Work Phone: [facility] 05-19-2024 11:32-0500 Diastolic blood pressure 74 mm[Hg] Marco A Jc DO Work Phone: [facility] 05-19-2024 11:32-0500 Systolic blood pressure 110 mm[Hg] Marco A Jc DO Work Phone: [facility] 04-19-2024 01:09-0500 Body temperature 98.06 [degF] [facility] 04-19-2024 01:09-0500 Diastolic blood pressure 84 mm[Hg] [facility] 04-19-2024 01:09-0500 Heart rate 90 /min [facility] 04-19-2024 01:09-0500 Respiratory rate 16 /min [facility] 04-19-2024 01:09-0500 SaO2% (BldA) [Mass fraction] 100 % [facility] 04-19-2024 01:09-0500 Systolic blood pressure 126 mm[Hg] [facility] 03-08-2024 15:12-0500 Body mass index (BMI) [Ratio] 22.29 kg/m2 Marco A Jc DO Work Phone: [facility] 03-08-2024 15:12-0500 Body weight 62.65 kg Marco A Jc DO Work Phone: [facility] 03-08-2024 15:12-0500 Diastolic blood pressure 70 mm[Hg] Marco A Jc DO Work Phone: [facility] 03-08-2024 15:12-0500 Systolic blood pressure 120 mm[Hg] Marco A Jc DO Work Phone: [facility] 10-14-2022 12:27-0400 Body temperature 98.24 [degF] Nakul Cannon [facility] 10-14-2022 12:27-0400 Diastolic blood pressure 64 mm[Hg] Nakul Cannon [facility] 10-14-2022 12:27-0400 Heart rate 107 /min Nakul Cannon [facility] 10-14-2022 12:27-0400 Respiratory rate 18 /min Nakul Cannon [facility] 10-14-2022 12:27-0400 SaO2% (BldA) [Mass fraction] 100 % Nakul Cannon [facility] 10-14-2022 12:27-0400 Systolic blood pressure 113 mm[Hg] Nakul Cannon [facility] 12-19-2021 03:42-0400 Diastolic blood pressure 64 mm[Hg] Anthony Martinez [facility] 12-19-2021 03:42-0400 Heart rate 78 /min Anthony Michelle [facility] 12-19-2021 03:42-0400 Hourly Rounding Anthony Martinez [facility] 12-19-2021 03:42-0400 Nursing Progress Note Reason Other: Pt mediciated per orders. Family x1 cartside. Denies any needs at this time. Anthony Michelle [facility] 12-19-2021 03:42-0400 Respiratory rate 16 /min Anthony Michelle [facility] 12-19-2021 03:42-0400 SaO2% (BldA) [Mass fraction] 100 % Anthony Michelle [facility] 12-19-2021 03:42-0400 Systolic blood pressure 116 mm[Hg] Anthony Michelle [facility] 12-19-2021 02:40-0400 Diastolic blood pressure 70 mm[Hg] Anthony Michelle [facility] 12-19-2021 02:40-0400 Heart rate 82 /min Anthony Michelle [facility] 12-19-2021 02:40-0400 Hourly Rounding Anthony Michelle [facility] 12-19-2021 02:40-0400 Nursing Progress Note Reason Other: Pt ambulatory to bathroom and back to cart with a steady gait. Anthony Michelle [facility] 12-19-2021 02:40-0400 Respiratory rate 16 /min Anthony Michelle [facility] 12-19-2021 02:40-0400 SaO2% (BldA) [Mass fraction] 100 % Anthony Michelle [facility] 12-19-2021 02:40-0400 Systolic blood pressure 122 mm[Hg] Anthony Michelle [facility] 12-19-2021 01:53-0400 Body temperature 98.06 [degF] Anthony Michelle [facility] 12-19-2021 01:53-0400 Diastolic blood pressure 84 mm[Hg] Anthony Michelle [facility] 12-19-2021 01:53-0400 Heart rate 89 /min Anthony Michelle [facility] 12-19-2021 01:53-0400 Respiratory rate 16 /min Anthony Michelle [facility] 12-19-2021 01:53-0400 SaO2% (BldA) [Mass fraction] 100 % Anthony Michelle [facility] 12-19-2021 01:53-0400 Systolic blood pressure 149 mm[Hg] Anthony Martinez [facility] 11-01-2021 08:09-0400 Body temperature 98.42 [degF] Keanu Kamara [facility] 11-01-2021 08:09-0400 Diastolic blood pressure 90 mm[Hg] Keanu Kamara [facility] 11-01-2021 08:09-0400 Heart rate 94 /min Keanu Kamara [facility] 11-01-2021 08:09-0400 Respiratory rate 18 /min Keanu Kamara [facility] 11-01-2021 08:09-0400 SaO2% (BldA) [Mass fraction] 98 % Keanu Kamara [facility] 11-01-2021 08:09-0400 Systolic blood pressure 145 mm[Hg] Keanu Kamara [facility] 09-18-2021 09:59-0400 Body temperature 98.06 [degF] [facility] 09-18-2021 09:59-0400 Diastolic blood pressure 87 mm[Hg] [facility] 09-18-2021 09:59-0400 Heart rate 90 /min [facility] 09-18-2021 09:59-0400 Respiratory rate 16 /min [facility] 09-18-2021 09:59-0400 SaO2% (BldA) [Mass fraction] 100 % [facility] 09-18-2021 09:59-0400 Systolic blood pressure 136 mm[Hg] [facility] 04-28-2020 07:51-0500 Body Temperature 97.81 [degF] Chelsi Caballero [facility], [place] 04-28-2020 07:51-0500 BP Diastolic 68 mm[Hg] Chelsi Caballero [facility] [place] 04-28-2020 07:51-0500 BP Systolic 121 mm[Hg] Chelsi Caballero [facility] [place] 04-28-2020 07:51-0500 Pulse (Heart Rate) 97 /min Chelsi Caballero [facility] [place] 04-28-2020 07:51-0500 Pulse Oximetry 97 % Chelsi Caballero [place], [place] 04-28-2020 07:51-0500 Respiratory Rate 18 /min Chelsi Caballero [facility] [place] 04-25-2020 13:40-0500 BMI (Body Mass Index) 23.3 kg/m2 Chelsi Caballero [place], [place] 04-25-2020 13:40-0500 Body weight 63.5 kg Chelsi Caballero [place] 04-25-2020 13:40-0500 Height 165.1 cm Chelsi Caballero [place] Encounters Encounter Date Encounter Type Care Provider Facility Start: 07-01-2024 End: 07-01-2024 ambulatory MARCO A JC Not Available Start: 05-19-2024 End: 05-19-2024 Bamboo flowsheet Marco A Jc DO Work Phone: [facility] Start: 05-19-2024 End: 05-19-2024 Bamboo flowsheet Marco A Jc DO Work Phone: [facility] Start: 05-19-2024 End: 05-19-2024 Office outpatient visit 15 minutes Marco A Jc DO Work Phone: [facility] Comment on above: control counse ling Start: 05-19-2024 End: 05-19-2024 ambulatory MARCO A JC Not Available Start: 04-19-2024 End: 04-19-2024 [facility] Start: 03-08-2024 End: 03-08-2024 Patient encounter procedure Marco A Jc DO Work Phone: [facility] Work Phone: Start: 03-08-2024 End: 03-08-2024 Periodic preventive med est patient 18-39 yrs Marco A Jc DO Work Phone: [facility] Comment on above: Well woman exam with routine gynecological exam Start: 03-08-2024 End: 03-08-2024 ambulatory MARCO A JC Not Available Start: 03-08-2024 End: 03-08-2024 Bamboo flowsheet Marco A Jc DO Work Phone: [facility] Start: 03-08-2024 End: 03-16-2024 Bamboo flowsheet Marco A Jc DO Work Phone: [facility] Start: 03-08-2024 End: 03-16-2024 Clinisync Result Encounter Marco A Jc DO Work Phone: [facility] Unsolicited Start: 10-26-2023 End: 10-26-2023 ambulatory JESS BONILLA Not Available Start: 02-02-2023 End: 02-25-2023 Pre-admission assessment Zac Martinez [facility] Start: 11-10-2022 ambulatory KELL Chamberlain [facility] Jacobo Mark Start: 10-14-2022 End: 10-14-2022 Emergency department patient visit Nakul Cannon [facility] Start: 09-26-2022 ambulatory PCP UNKNOWN Facility:[facility] Jacobo Mark Start: 09-04-2022 End: 09-05-[address] MARCO A GREENE . Facility: Start: 08-14-2022 End: 08-15-[address] MARCO A GREENE . Facility:[facility] Start: 12-19-2021 End: 12-19-2021 Emergency department patient visit Anthony Martinez [facility] Start: 11-14-2021 End: 11-14-2021 Patient encounter procedure Grover Amaral OD Work Phone: Ophthalmology Comment on above: EKC (epidemic kerato conjunctivitis) (Primary Dx) Start: 11-07-2021 End: 11-07-2021 Patient encounter procedure Grover Amaral OD Work Phone: Ophthalmology Comment on above: Viral conjunctivitis (Primary Dx) Start: 11-01-2021 End: 11-01-2021 Emergency department patient visit Keanu Kamara [facility] Start: 09-18-2021 End: 09-18-2021 Emergency department patient visit Amos Jorgegin [facility] Start: 04-25-2020 End: 04-28-2020 Evaluation and management of inpatient Chelsi Parra Work Phone: [facility] Procedures Date Procedure Procedure Detail Performing Clinician Start: 03-08-2024 IGP,APTIMA HPV,AGE GDLN Marco A Jc DO Work Phone: Start: 04-27-2020 Blood count hemoglobin Kristrun H Kristinsdottir Work Phone: Start: 04-25-2020 Blood count complete automated Codie Hough Work Phone: Start: 04-25-2020 Blood typing serolog ic abo Codie Hough Work Phone: Start: 04-25-2020 Comprehensive metabo lic panel Codie Hough Work Phone: Start: 04-25-2020 Fibrinogen activity Whi fish Hough Work Phone: Start: 04-25-2020 PROTIME/INR & [...] Work Phone: Start: 04-10-2020 ABO, EXTERNAL RESULT Hi storical Provider Start: 04-10-2020 C. TRACHOMATIS, EXTE RNAL RESULT Historical Provider Start: 04-10-2020 HEPATITIS B, EXTERNA L RESULT Historical Provider Start: 04-10-2020 HIV, EXTERNAL RESULT Hi storical Provider Start: 04-10-2020 N. GONORRHOEAE, EXTE RNAL RESULT Historical Provider Start: 04-10-2020 RH FACTOR, EXTERNAL RESULT Historical Provider Start: 04-10-2020 RPR, EXTERNAL RESULT Hi storical Provider Start: 04-10-2020 RUBELLA TITER, EXTER NAL RESULT Historical Provider Plan of Treatment Date Care Activity Detail Author Start: 03-14-2025 End: 03-14-2025 Patient encounter procedure 03/14/2025 11:00 AM EST [facility] [address] [facility] [place] [id number] Marco A Greene, DO [address] [place] [address] [facility] Start: 05-19-2024 End: 05-19-2024 Patient encounter procedure 05/19/2024 11:20 AM EST Office Visit [facility] [address] [facility] [place] [id number] Marco A Greene, DO [address] [place], [place] [id number] Arrived [facility] Comment on above: Arrived Start: 12-26-2021 Influenza vaccination INFLUENZA (#1) [facility] Start: 10-08-2020 PAP TESTING PAP TESTING [facility] Start: 10-08-2018 Urine microalbumin profile DTAP,TDAP,TD (1 - Tdap) [facility] Start: 10-08-2017 CHLAMYDIA SCREENING (18-24) CHLAMYDIA SCREENING (18-24) [facility] Start: 10-08-2017 GC (GONORRHEA) SCREE WALLY (18-24) GC (GONORRHEA) SCREENING (18-24) [facility] Start: 10-08-2017 HEPATITIS C SCREENING HEPATITIS C SC REENING [facility] Start: 10-08-2017 HIV SCREENING HIV SCREENING [facility] Start: 10-08-2013 PEDS TO ADULT TRANSI TION ANNUAL ASSESSMENT PEDS TO ADULT TRANSITION ANNUAL ASSESSMENT [facility] Start: 2011 Adult depression screening assessment DEPRESSION SCREENING [facility] Start: 2011 PEDS TO ADULT TRANSI TION INITIAL DISCUSSION PEDS TO ADULT TRANSITION INITIAL DISCUSSION [facility] Start: 10-08-2010 HPV VACCINE (1 - 2-d ose series) HPV VACCINE (1 - 2-dose series) [facility] Start: 04-09-2000 COVID-19 VACCINE (#1) COVID-19 VACCI NE (#1) [facility] Cytology Cervical or vaginal smear or scraping study Pap Smear Pathology and Cytology Routine Well woman exam with routine gynecological exam Ordered: 03/08/2024 [facility] Work Phone: Comment on above: Ordered: 03/08/2024 Nonrebreather mask oxygen Nonrebreather mask oxygen Respiratory Care Routine As directed - RT (PRN) until discontinued starting 04/26/2020 [facility], [place] Comment on above: As directed - RT (WI N) until discontinued starting 04/26/2020 Oxygen therapy [Mini [facility] Data Set] Initiate Oxygen Therapy Protocol Respiratory Care Routine Daily until discontinued starting 04/26/2020 [facility], [place] Comment on above: Daily until disconti nued starting 04/26/2020 Spirometry panel Incentive roger metry Respiratory Care Routine Every 2hr while awake until discontinued starting 04/26/2020 [facility], [place] Comment on above: Every 2hr while awak e until discontinued starting 04/26/2020 [facility] Immunizations Immunization Date Immunization Notes Care Provider Merry banda 04-28-2020 tetanus toxoid, redu paula diphtheria toxoid, and acellular pertussis vaccine, adsorbed [place], [place] 04-27-2020 influenza, injectabl e, quadrivalent, preservative free [place], [place] 04-26-2020 influenza quadrivale nt split vaccine (FLUZONE;FLUARIX;FLULAVAL; AFLURIA) injection 0.5 mL [place] 04-26-2020 diphtheria, tetanus toxoids and acellular pertussis vaccine, unspecified formulation [place], [place] Payers Date Payer Category Payer Medicaid [employer] [place] [id number] 2020-Present [phone] [address] [address] [place] [address] Medicaid [id number] 2020 Medicaid (Managed Care) [id number]. [id number] 2020 [employer] of [employer] ( and others) [facility] [id number] 2020-Present [address] [place] [address] [id number] 1999 Unknown [id number]. 593 1999 Unknown [id number]. 593 1999 Unknown [id number] [id number]. 356 1999 Unknown [id number] [id number]. 356 1999 Unknown [id number] [id number]. 727 1999 Unknown [id number] [id number]. 1259 1999 Unknown [id number] [id number]. 1259 1999 Unknown [id number] [id number]. 1259 1999 Unknown [id number] [id number]. 1259 1999 Unknown [id number] [id number]. 1259 1999 Unknown [id number]. 1259 1959 Unknown [id number] Social History Date Type Detail Facility Start: 04-28-2020 End: 10-26-2023 Tobacco smoking status MNIS Never smoker [facility] Start: 04-28-2020 End: 10-26-2023 Tobacco use and exposure Never used [place] Start: 04-28-2020 End: 05-19-2024 Alcohol intake Ex-drinker (finding) [facility] Y Start: 2000 Sex Assigned At Not on file [place] Start: 10-28-2021 End: 11-07-2021 Exposure to SARS-CoV-2 (event) Not sure [place], [place] Tobacco [facility] Comment on above: denies Start: 10-26-2023 Sex Assigned At Female F [facility] Tobacco smoking status No Smoking Status Entered [facility] Start: 10-26-2023 History of Social function [facility] Start: 10-29-2022 Alcohol Comment caffeine: rarely [facility] Start: 2000 Sex assigned at Female [facility] Start: 10-19-2022 Gender identity Identifies as female gender (finding) [facility] Functional Status Date Assessment Result Facility 04-19-2024 Functional Status N/A [facility] 10-14-2022 Functional Status N/A [facility] 12-19-2021 Functional Status N/A [facility] 11-01-2021 Functional Status N/A [facility] Clinical Notes 04-28-2020 to 05-19-2024 CODY Dumont - 05/19/2024 11:20 AM EST Note Date & Type Note Facility 05-19-2024 History of Presen t illness Narrative Reason for Appointment: Patient ID: Anand Herrera is a 23 y.o. female who presents for Contraception and discuss cycles Patient presents today for Acute Visit. MEDICATIONS Current Outpatient Medications Medication Instructions norethindrone (MICRONOR) 0.35 mg, Oral, Daily Vyvanse 40 mg, Daily ALLERGIES No Known Allergies PROBLEMS Active Ambulatory Problems Diagnosis Date Noted No Active Ambulatory Problems Resolved Ambulatory Problems Diagnosis Date Noted No Resolved Ambulatory Problems Past Medical History: Diagnosis Date Pre-eclampsia HISTORY PAST MEDICAL HISTORY SOCIAL HISTORY Past Medical History: Diagnosis Date Pre-eclampsia Social History Tobacco Use Smoking status: Never Smokeless tobacco: Never Substance Use Topics Alcohol use: Not Currently Comment: caffeine: rarely Drug use: Not Currently FAMILY HISTORY Family History Problem Relation Name Age of Onset Cancer Mother No Known Problems Father Asthma Daughter Other (dairy allergy) Daughter Cancer Maternal Grandmother Cancer Maternal Grandfather SURGICAL HISTORY Past Surgical History: Procedure Laterality Date SECTION, CLASSIC 03/24/2023 SECTION, LOW TRANSVERSE 04/26/2020 PAP SMEAR 2020 negative REVIEW OF SYSTEMS Review of Systems: Review of Systems Constitutional: Negative. HENT: Negative. Eyes: Negative. Respiratory: Negative. Cardiovascular: Negative. Gastrointestinal: Negative. Genitourinary: Negative. Musculoskeletal: Negative. Skin: Negative. Neurological: Negative. All other systems reviewed and are negative. Hematological: Negative. Endocrine: Negative. Allergic/Immunologic: Negative. OBJECTIVE Objective: Physical Exam Constitutional: Appearance: Normal appearance. She is normal weight. HENT: Head: Normocephalic. Cardiovascular: Rate and Rhythm: Normal rate. Pulses: Normal pulses. Pulmonary: Effort: Pulmonary effort is normal. Breath sounds: Normal breath sounds. Abdominal: Palpations: Abdomen is soft. Musculoskeletal: General: Normal range of motion. Neurological: General: No focal deficit present. Mental Status: She is alert and oriented to person, place, and time. Psychiatric: Mood and Affect: Mood normal. Behavior: Behavior normal. Thought Content: Thought content normal. Judgment: Judgment normal. Vitals and nursing note reviewed. Vitals: Estimated body mass index is 23.4 kg/m as calculated from the following: Height as of 10/26/23: 5' 6 . Weight as of this encounter: 145 lb. BP: 110/74 No LMP recorded. ASSESSMENT & PLAN ICD-10-CM 1. control counseling Z30.09 norethindrone (Micronor) 0.35 MG tablet Patient had taken slynd post and not tolerating. Pt presents today for change of medication pt will be change to JENN Be as she still is breast feeding Documented by CODY Dumont on behalf of: Marco A Greene DO documented in this encounter [facility] 04-19-2024 Evaluation + Plan note Extrac nino from: Title:ED Note Author:Olga Davison, Amos De Oliveira te:04/19/24 1. Ear pain, right (H92.01: Otalgia, right ear) 2. Upper respiratory infection (J06.9: Acute upper respiratory infection, unspecified) [facility] 12-24-2024 Hospital Discharge instructions Patient Education 04/19/2024 01:34:08 Upper Respiratory Infection, Adult Upper Respiratory Infection, Adult An upper respiratory infection (URI) is a common viral infection of the nose, throat, and upper airpassages that lead to the lungs. The most common type of URI is the common cold. URIs usually get better on their own, without medical treatment. What are the causes? A URI is caused by a virus. You may catch a virus by: Breathing in droplets from an infected person's cough or sneeze. Touching something that has been exposed to the virus (is contaminated) and then touching your mouth, nose, or eyes. What increases the risk? You are more likely to get a URI if: You are very young or very old. You have close contact with others, such as at work, school, or a health care facility. You smoke. You have long-term (chronic) heart or lung disease. You have a weakened disease-fighting system (immune system). You have nasal allergies or asthma. You are experiencing a lot of stress. You have poor nutrition. What are the signs or symptoms? A URI usually involves some of the following symptoms: Runny or stuffy (congested) nose. Cough. Sneezing. Sore throat. Headache. Fatigue. Fever. Loss of appetite. Pain in your forehead, behind your eyes, and over your cheekbones (sinus pain). Muscle aches. Redness or irritation of the eyes. Pressure in the ears or face. How is this diagnosed? This condition may be diagnosed based on your medical history and symptoms, and a physical exam. Your health care provider may use a swab to take a mucus sample from your nose (nasal swab). This sample can be tested to determine what virus is causing the illness. How is this treated? URIs usually get better on their own within 7 10 days. Medicines cannot cure URIs, but your health care provider may recommend certain medicines to help relieve symptoms, such as: Mvqe-hza-tfxoegm cold medicines. Cough suppressants. Coughing is a type of defense against infection that helps to clear the respiratory system, so take these medicines only as recommended by your health care provider. Fever-reducing medicines. Follow these instructions at home: Activity Rest as needed. If you have a fever, stay home from work or school until your fever is gone or until your health care provider says your URI cannot spread to other people (is no longer contagious). Your health care provider may have you wear a face mask to prevent your infection from spreading. Relieving symptoms Gargle with a mixture of salt and water 3 4 times a day or as needed. To make salt water, completely dissolve 1 tsp (3 6 g) of salt in 1 cup (237 mL) of warm water. Use a cool-mist humidifier to add moisture to the air. This can help you breathe more easily. Eating and drinking Drink enough fluid to keep your urine pale yellow. Eat soups and other clear broths. General instructions Take mgti-oaq-bnmvwkw and prescription medicines only as told by your health care provider. These include cold medicines, fever reducers, and cough suppressants. Do not use any products that contain nicotine or tobacco. These products include cigarettes, chewing tobacco, and vaping devices, such as e-cigarettes. If you need help quitting, ask your health careprovider. Stay away from secondhand smoke. Stay up to date on all immunizations, including the yearly (annual) flu vaccine. Keep all follow-up visits. This is important. How to prevent the spread of infection to others URIs can be contagious. To prevent the infection from spreading: Wash your hands with soap and water for at least 20 seconds. If soap and water are not available, use hand shirt turner. Avoid touching your mouth, face, eyes, or nose. Cough or sneeze into a tissue or your sleeve or elbow instead of into your hand or into the air. Contact a health care provider if: You are getting worse instead of better. You have a fever or chills. Your mucus is brown or red. You have yellow or brown discharge coming from your nose. You have pain in your face, especially when you bend forward. You have swollen neck glands. You have pain while swallowing. You have white areas in the back of your throat. Get help right away if: You have shortness of breath that gets worse. You have severe or persistent: ?Headache. ?Ear pain. ?Sinus pain. ?Chest pain. You have chronic lung disease along with any of the following: ?Making high-pitched whistling sounds when you breathe, most often when you breathe out (wheezing). ?Prolonged cough (more than 14 days). ?Coughing up blood. ?A change in your usual mucus. You have a stiff neck. You have changes in your: ?Vision. ?Hearing. ?Thinking. ?Mood. These symptoms may be an emergency. Get help right away. Call 911. Do not wait to see if the symptoms will go away. Do not drive yourself to the hospital. Summary An upper respiratory infection (URI) is a common infection of the nose, throat, and upper air passages that lead to the lungs. A URI is caused by a virus. URIs usually get better on their own within 7 10 days. Medicines cannot cure URIs, but your health care provider may recommend certain medicines to help relieve symptoms. This information is not intended to replace advice given to you by your health care provider. Make sure you discuss any questions you have with your health care provider. Document Revised: 11/13/2021 Document Reviewed: 11/13/2021 [employer] Patient Education 2023 Xand. 04/19/2024 01:34:08 Earache, Adult Earache, Adult An earache, or ear pain, can be caused by many things, including: An infection. Ear wax buildup. Ear pressure. Something in the ear that should not be there (foreign body). A sore throat. Tooth problems. Jaw problems. Treatment of the earache will depend on the cause. If the cause is not clear or cannot be known, you may need to watch your symptoms until your earache goes away or until a cause is found. Follow these instructions at home: Medicines Take or apply fbho-keg-piucbjv and prescription medicines only as told by your health care provider. If you were prescribed antibiotics, use them as told by your health care provider. Do not stop using the antibiotic even if you start to feel better. Do not put anything in your ear other than medicine that is prescribed by your health care provider. Managing pain If directed, apply heat to the affected area as often as told by your health care provider. Use theheat source that your health care provider recommends, such as a moist heat pack or a heating pad. Place a towel between your skin and the heat source. Leave the heat on for 20 30 minutes. If your skin turns bright red, remove the heat right away to prevent espinosa. The risk of espinosa is higher if you cannot feel pain, heat, or cold. If directed, put ice on the affected area. To do this: Put ice in a plastic bag. Place a towel between your skin and the bag. Leave the ice on for 20 minutes, 2 3 times a day. If your skin turns bright red, remove the ice right away to prevent skin damage. The risk of skin damage is higher if you cannot feel pain, heat, or cold. General instructions Pay attention to any changes in your symptoms. Try resting in an upright position instead of lying down. This may help to reduce pressure in your ear and relieve pain. Chew gum if it helps to relieve your ear pain. Treat any allergies as told by your health care provider. Drink enough fluid to keep your urine pale yellow. It is up to you to get the results of any tests that were done. Ask your health care provider, or the department that is doing the tests, when your results will be ready. Contact a health care provider if: Your pain does not improve within 2 days. Your earache gets worse. You have new symptoms. You have a fever. Get help right away if: You have a severe headache. You have a stiff neck. You have trouble swallowing. You have redness or swelling behind your ear. You have fluid or blood coming from your ear. You have hearing loss. You feel dizzy. This information is not intended to replace advice given to you by your health care provider. Make sure you discuss any questions you have with your health care provider. Document Revised: 08/25/2022 Document Reviewed: 08/25/2022 [employer] Patient Education 2023 Xand. Follow Up Care 04/19/2024 01:06:30 With:Bailey Gonzales Address[address], [facility] [address] [place] [address]- Business (1) When:04/22/2024 Comments:Return to the emergency room if your pain recurs or any new symptoms. [facility] 12-24-2024 NoteED Patient Education Note ENT Earache, Adult An earache, or ear pain, can be caused by many things, including: ??? An infection. ??? Ear wax buildup. ??? Ear pressure. ??? Something in the ear that should not be there (foreign body). ??? A sore throat. ??? Tooth problems. ??? Jaw problems. Treatment of the earache will depend on the cause. If the cause is not clear or cannot be known, you may need to watch your symptoms until your earache goes away or until a cause is found. Follow these instructions at home: Medicines ??? Take or apply cpmq-lky-dfzabjv and prescription medicines only as told by your health care provider. ??? If you were prescribed antibiotics, use them as told by your health care provider. Do not stop using the antibiotic even if you start to feel better. ??? Do not put anything in your ear other than medicine that is prescribed by your health care provider. Managing pain If directed, apply heat to the affected area as often as told by your health care provider. Use theheat source that your health care provider recommends, such as a moist heat pack or a heating pad. ??? Place a towel between your skin and the heat source. ??? Leave the heat on for 20?30 minutes. ??? If your skin turns bright red, remove the heat right away to prevent espinosa. The risk of espinosa is higher if you cannot feel pain, heat, or cold. If directed, put ice on the affected area. To do this: ??? Put ice in a plastic bag. ??? Place a towel between your skin and the bag. ??? Leave the ice on for 20 minutes, 2?3 times a day. ??? If your skin turns bright red, remove the ice right away to prevent skin damage. The risk of skin damage is higher if you cannot feel pain, heat, or cold. General instructions ??? Pay attention to any changes in your symptoms. ??? Try resting in an upright position instead of lying down. This may help to reduce pressure in your ear and relieve pain. ??? Chew gum if it helps to relieve your ear pain. ??? Treat any allergies as told by your health care provider. ??? Drink enough fluid to keep your urine pale yellow. ??? It is up to you to get the results of any tests that were done. Ask your health care provider, or the department that is doing the tests, when your results will be ready. Contact a health care provider if: ??? Your pain does not improve within 2 days. ??? Your earache gets worse. ??? You have new symptoms. ??? You have a fever. Get help right away if: ??? You have a severe headache. ??? You have a stiff neck. ??? You have trouble swallowing. ??? You have redness or swelling behind your ear. ??? You have fluid or blood coming from your ear. ??? You have hearing loss. ??? You feel dizzy. This information is not intended to replace advice given to you by your health care provider. Make sure you discuss any questions you have with your health care provider. Document Revised: 08/25/2022 Document Reviewed: 08/25/2022 [employer] Patient Education ? 2023 [employer] Infectious Disease Upper Respiratory Infection, Adult An upper respiratory infection (URI) is a common viral infection of the nose, throat, and upper airpassages that lead to the lungs. The most common type of URI is the common cold. URIs usually get better on their own, without medical treatment. What are the causes? A URI is caused by a virus. You may catch a virus by: ??? Breathing in droplets from an infected person's cough or sneeze. ??? Touching something that has been exposed to the virus (is contaminated) and then touching your mouth, nose, or eyes. What increases the risk? You are more likely to get a URI if: ??? You are very young or very old. ??? You have close contact with others, such as at work, school, or a health care facility. ??? You smoke. ??? You have long-term (chronic) heart or lung disease. ??? You have a weakened disease-fighting system (immune system). ??? You have nasal allergies or asthma. ??? You are experiencing a lot of stress. ??? You have poor nutrition. What are the signs or symptoms? A URI usually involves some of the following symptoms: ??? Runny or stuffy (congested) nose. ??? Cough. ??? Sneezing. ??? Sore throat. ??? Headache. ??? Fatigue. ??? Fever. ??? Loss of appetite. ??? Pain in your forehead, behind your eyes, and over your cheekbones (sinus pain). ??? Muscle aches. ??? Redness or irritation of the eyes. ??? Pressure in the ears or face. How is this diagnosed? This condition may be diagnosed based on your medical history and symptoms, and a physical exam. Your health care provider may use a swab to take a mucus sample from your nose (nasal swab). This sample can be tested to determine what virus is causing the illness. How is this treated? URIs usually get better on their own within 7?10 days. Medicines cannot cure URIs, but your health care provide (more content not included)...[facility]11-12-2024 History of Present illness Narrative* Hillary Coreas LPN - 03/08/2024 3:00 PM EST Reason for Appointment: Patient ID: Anand Herrera is a 23 y.o. female who presents for Well Women Visit Patient presents today for Annual Exam. MEDICATIONS Current Outpatient Medications Medication Instructions Vyvanse 40 mg, Daily ALLERGIES No Known Allergies PROBLEMS Active Ambulatory Problems Diagnosis Date Noted No Active Ambulatory Problems Resolved Ambulatory Problems Diagnosis Date Noted No Resolved Ambulatory Problems Past Medical History: Diagnosis Date Pre-eclampsia HISTORY PAST MEDICAL HISTORY SOCIAL HISTORY Past Medical History: Diagnosis Date Pre-eclampsia Social History Tobacco Use Smoking status: Never Smokeless tobacco: Never Substance Use Topics Alcohol use: Not Currently Comment: caffeine: rarely Drug use: Not Currently FAMILY HISTORY Family History Problem Relation Name Age of Onset Cancer Mother No Known Problems Father Asthma Daughter Other (dairy allergy) Daughter Cancer Maternal Grandmother Cancer Maternal Grandfather SURGICAL HISTORY Past Surgical History: Procedure Laterality Date SECTION, CLASSIC 03/24/2023 SECTION, LOW TRANSVERSE 04/26/2020 PAP SMEAR 2020 negative REVIEW OF SYSTEMS Review of Systems: Review of Systems Constitutional: Negative. HENT: Negative. Eyes: Negative. Respiratory: Negative. Cardiovascular: Negative. Gastrointestinal: Negative. Genitourinary: Positive for menstrual problem. Musculoskeletal: Negative. Skin: Negative. Neurological: Negative. All other systems reviewed and are negative. Hematological: Negative. Endocrine: Negative. Allergic/Immunologic: Negative. OBJECTIVE Objective: Physical Exam Constitutional: Appearance: Normal appearance. She is well-developed. Genitourinary: Vulva normal. Breasts: Breasts are soft. Right: Normal. Left: Normal. Cardiovascular: Rate and Rhythm: Normal rate and regular rhythm. Pulmonary: Effort: Pulmonary effort is normal. Breath sounds: Normal breath sounds. Abdominal: General: Bowel sounds are normal. There is no distension. Palpations: Abdomen is soft. Tenderness: There is no abdominal tenderness. There is no guarding or rebound. Musculoskeletal: General: No swelling. Normal range of motion. Right lower leg: No edema. Left lower leg: No edema. Neurological: Mental Status: She is alert and oriented to person, place, and time. Skin: General: Skin is warm and dry. Psychiatric: Mood and Affect: Mood normal. Behavior: Behavior normal. Vitals and nursing note reviewed. Exam conducted with a director college present. Vitals: Estimated body mass index is 22.29 kg/m as calculated from the following: Height as of 10/26/23: 5' 6 . Weight as of this encounter: 138 lb 1.9 oz. BP: 120/70 Patient's last menstrual period was 03/08/2024. ASSESSMENT & PLAN ICD-10-CM 1. Well woman exam with routine gynecological exam Z01.419 Pap Smear Annual Exam: Patient presents today for an annual exam. Patient states she is doing well and has complaints of periods coming every 2 weeks- discussed all options. Rx for Slynd samples given pt will call if desires after two months and script will be called in . Pap was obtained without difficulty. No orders of the defined types were placed in this encounter. Follow Up: Patient is to return in one year for annual unless needed otherwise. Documented by Hillary Coreas LPN on behalf of: Marco A Greene DO documented in [facility] encounter[facility] [id number] Hospital Discharge instructions Patient Education 10/14/2022 13:55:20 Sutures, Azalia, or Adhesive Wound Closure, Aelx-nn-Osjn Sutures, Waverly, or Adhesive Wound Closure Doctors use stitches [...] ?Hold the edges of the wound together. ?[place] the glue onto your skin. You may [...] skin reaction that can lead to infection. Waverly Azalia are often used to close cuts from surgery (incisions). To use azalia, your doctor will: Hold the edges of your wound close together. Place a staple across the wound. Use a tool to secure the staple to the skin. Repeat this with as many azalia as needed. Waverly are faster to use than sutures, and they cause less reaction from your skin. Waverly need to be taken out using a tool that bends the azalia away from your skin. Follow these instructions at home: Medicines Take paaz-gqu-bqcmsms and prescription medicines only as told by [...] seconds before and after touching your wound orbandage. If you cannot use soap and water, use hand shirt turner. Do not try to take off or take out your wound closures unless your doctor tells you to do that. Youmay need a follow-up visit for your doctor [...] provider. Document Revised: 08/19/2021 Document Reviewed: 08/19/2021 [employer] Patient Education 2022 Xand. Follow Up Care 10/14/2022 12:20:41 With:Baljit Link Address: [address] [place] [address]- Business (1) When:10/17/2022 13:48:24 [facility]08-25-2022 Evaluation + Plan noteExtracted from: Title:ED Note Author:Anthony Martinez DO Date [...] w/ Auto Diff eGFR PT & PTT [facility]08-25-2022 Hospital Discharge instructions Patient Education 12/19/2021 04:06:21 Dysfunctional Uterine Bleeding Dysfunctional Uterine Bleeding Dysfunctional uterine bleeding is abnormal bleeding from the uterus. Dysfunctional uterine bleedingincludes: A menstrual period that comes earlier or later than usual. A menstrual period that is science intern or heavier than usual, or has [...] to keep your urine pale yellow. ?Take sagt-cex-pzvroag or prescription medicines. ?Eat foods that are high in fiber, such as beans, whole grains, and fresh fruits and vegetables. ?Limit foods that are high in fat and processed sugars, such as fried or sweet foods. Medicines Take necb-teh-hzxioti and prescription medicines only as told by [...] 04/10/2001 Document Revised: 09/22/2018 Document Reviewed: 09/22/2018 [employer] Patient Education 2020 Xand. Follow Up Care 12/19/2021 01:46:43 With:Zac Martinez Address: [facility] [address] [address] Business (1) When:12/22/2021 [facility]07-21-2022 NoteHNO ID: [id number] Author: Grover Amaral OD Service: ? Author Type: APARTMENT MANAGER Type: Progress Notes Filed: 11/14/2021 2:32 PM [...] Grover Amaral, DIXON November 14, 2021 2:29 [facility]07-21-2022 History of Present illness Narrative* Grover Amaral, [...] 14, 2021 2:29 PM [facility] NoteHNO ID: [id number] Author: Grover Amaral OD Service: ? Author Type: APARTMENT MANAGER Type: Progress Notes Filed: 11/07/2021 4:03 PM [...] them in detail with the patient. Grover Amaral OD November 07, 2021 4:03 [facility]07-14-2022 Miscellaneous Notes* Addendum Note - Grover Amaral OD - 11/07/2021 4:06 PM EDT Addended by: GROVER AMARAL on: 11/07/2021 04:06 PM Modules accepted: Orders documented in [facility] History of Present illness Narrative* [...] 07, 2021 4:03 PM [facility] in [facility] Evaluation + Plan note Extracted from: Title:ED Note Author:Keanu Kamara DO Date: Allergic reaction (T78.40XA: Allergy, unspecified, initial encounter) Orders: predniSONE, 60 mg = 3 tab(s), Oral, Daily, X 5 day(s), # 15 tab(s), Refills(s) 0, Pharmacy: [facility]/pharmacy #[id number], 165, cm, 11/01/21 8:11:00 EDT, Height/Length Dosing, 63, kg, 11/01/21 8:11:00 EDT, Weight Dosing [facility]07-08-2022 Hospital Discharge instructions Patient Education 11/01/2021 [...] care provider who specializes in treating allergies (sprinkler repair technician) or eye conditions (legal advisor) for tests to confirm the diagnosis. You [...] Eye drops. These may be prescription or yoqq-hrn-euyghfu. There are several different types. You may [...] known allergens whenever possible. Take or apply plzz-qha-jbiysqv and prescription medicines only as told by [...] 07/04/2003 Document Revised: 03/26/2018 Document Reviewed: 10/24/2016 [employer]Book[employer] Patient Education 2020 Xand. Follow Up Care 11/01/2021 08:05:40 With:Johanna Huynh Address: [address] [address]- Business (1) When:11/04/2021 08:24:58 Comments:Call today to arrange for follow-up appointment on Thursday or Thursday. Return to the ED with new or worsening symptoms as discussed. With:Baljit Watts Address: [address] [facility] [address] [place] [address]- Business (1) When:11/04/2021 08:24:46 Comments:Call the office [...] you develop any new or worsening symptoms. [facility]05-25-2022 Hospital Discharge instructions Patient Education 09/18/2021 [...] may be recommended to support your foot. Pgzr-bui-irnamhn anti-inflammatory medicines may also be recommended for [...] sitting or lying down. General instructions Take owtu-peo-ihedoiq and prescription medicines only as told by [...] 02/02/2007 Document Revised: 12/14/2018 Document Reviewed: 12/14/2018 [employer] Patient Education 2019 [employer] Follow Up Care 09/18/2021 09:48:23 With:Baljit Link Address: [address] [place] [address]- Business (1) When:09/21/2021 11:47:11 Comments:Return to the emergency room if your pain gets worse or any new symptom [facility]05-25-2022 Evaluation + Plan noteExtracted from: Title:ED Note Author:Amos Espinoza M.D. te:09/18/21 1. Contusion of left foot (S 90.32XA: Contusion of left foot, initial encounter) Orders: Post-op Shoe XR Foot 3+ Views Left [facility]01-02-2021 NoteDepartment of Obstetrics and Gynecology Delivery Discharge Summary Admission on 04/25/2020 1:08 PM Reason for admission: 04/25/2020 Intrapartum Course: N/A 30w6d PC-01 Indications for Delivery: Was patient delivered between 37w0d - 63j8mgfjvt? NO Surgical Operations & Procedures: Date of delivery: 04/26/2020 Delivery Type: without labor Anesthesia: Spinal anesthesia Laceration(s): n/a Delivery Complications: none EBL: 700 cc Pertinent Findings & Procedures: Information for the patient's : Ree Herrera [[id number]] female Weight: 2 lb 12.3 oz (1.256 kg) Apgars: Information for the patient's : Ree Herrera [[id number]] One Minute : 6 Five Minute : 7 Course: Magnesium sulfate and Procardia for PEWSF Infant: Female infant Blood Type/Rh: O POS Antibody Screen: Antibody Screen Date Value Ref Range Status 04/25/2020 NEG NA Final Rubella: No results found for: RUBELLAIGG Contraception: will be discussed with her provider at [place] : no VTE Prophylaxis: Not Indicated Meds: Annad Herrera Home Medication Instructions RANDA:[id number] Printed on:04/28/20 1232 Medication Information ferrous sulfate (IRON 325) 325 [...] in [address] Wray in [place]. Condition on discharge: Stable Discharge to: Home [...] know - She will follow with her LOOP PULLER in [place] - I will call Dr. Wray answering service at [phone] to update him with her condition, medications, instructions, and follow up. Threatened labor, antepartum [O47.00] Patient Active Problem List Diagnosis ? Acute on chronic blood loss anemia Comments: Home care, Follow-up care and control were reviewed. Signs and symptoms of mastitis and Post Depression were reviewed. The patient is to notify her physician if any of these occur. 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 Diagnosis Well woman exam with routine gynecological exam Routine gynecological examination [facility] Diagnosis control counseling [facility] N[facility] No data available for this section [facility] No data available for this section [facility] No data available for this section [facility] Summary Purpose Family History No Family History Records FoundNo Family History Records FoundNo Family History Records FoundNo Family History Records FoundNo Family History Records Found No data available for this section No data available for this section No Family History Records FoundNo Family History Records Found Advance Directives No [...] Delivery: Was patient delivered between 37w0d - 46m6ndqeju? NO Surgical Operations & Procedures: Date of delivery: 04/26/2020 Delivery Type: without labor Anesthesia: Spinal anesthesia Laceration(s): n/a Delivery Complications: none EBL: 700 cc Pertinent Findings & Procedures: Information for the patient's : Ree Herrera [[id number]] female Weight: 2 lb 12.3 oz (1.256 kg) Apgars: Information for the patient's : Ree Herrera [[id number]] One Minute : 6 Five Minute : 7 Course: Magnesium sulfate and Procardia for PEWSF : Female infant Blood Type/Rh: O POS Antibody Screen: Antibody Screen Date Value Ref Range Status 04/25/2020 NEG NA Final Rubella: No results found for: RUBELLAIGG Contraception: will be discussed with her provider at [place] : no VTE Prophylaxis: Not Indicated Meds: Anand Herrera Home Medication Instructions RANDA:[id number] Printed on:04/28/20 123 Medication Information ferrous sulfate (IRON 325) 325 [...] in [address] Wray in [place]. Condition on discharge: Stable Discharge to: Home [...] know - She will follow with her LOOP PULLER in [place] - I will call Dr. Wray answering service at [phone] to update him with her condition, medications, [...] allowing us to care of you at [facility]. This time can be one of many [...] over the next few weeks. Bleeding may olive picker and then decrease again around 7-10 [...] avoid constipation you may take a mild qigr-tme-cmziftq stool softener (such as colace) as recommended [...] clean your hands with an alcohol-based hand shirt turner that contains at least 60% alcohol. Clean your hands often Wash your hands often with soap and water for at least 20 seconds, especially after blowing your nose, coughing, or sneezing; going to the bathroom; and before eating or preparing food. If soap and water are not readily available, use an alcohol-based hand shirt turner with at least 60% alcohol, covering all [...] healthcare provider to call the local or [facility]. Persons who are placed underactive [...] isolation precautions should be made on a qrxm-ae-mhih basis, in consultation with healthcare providers and [facility]. Information on COVID-19 for [...] respiratory tract signs and symptoms. Ways to [place] with Anxiety & Stress It is normal [...] an illness that was first found in [facility], in March 2019. It has since spread [...] seen in people before. This virus spreads uwhjpd-ho-jaupmi through droplets from coughing and sneezing. It [...] water aren't available, use an alcohol-based hand shirt turner. Call 911 anytime you think you may [...] of: July 27, 2019 Content Version: 12.4 [employer]. Care instructions adapted under license by your healthcare professional. If you have questions about a medical condition or this instruction, always ask your healthcare professional. [employer] disclaims any warranty or liability for your use of this information. General Recommendations for Routine Cleaning and Disinfection of Households Community members can practice routine cleaning of frequently touched surfaces (for example: tables, doorknobs, light switches, handles, desks, toilets, faucets, sinks) with household binding machine operator and EPA-registered disinfectants that are appropriate for [...] appropriate. These supplies include tissues, paper towels, binding machine operator and EPA-registered disinfectants (see list link at [...] be used for other purposes. Consult the toby maker's instructions for cleaning and disinfection products [...] used if appropriate for the surface. Follow toby maker's instructions for application and proper ventilation. [...] o Products with EPA-approved emerging viral pathogens [facility] iconexternal icon are expected to be effective against COVID-19 based on data for harder to kill viruses. Follow the toby maker's instructions for all cleaning and disinfection products (e.g., concentration, application method and contact time, etc.). Soft (porous) surfaces such as carpeted floor, rugs, and drapes Remove visible contamination if present and clean with appropriate binding machine operator indicated for use on these surfaces. After cleaning: Launder items as appropriate in accordance with the toby maker's instructions. If possible, launder items using [...] items as appropriate in accordance with the toby maker's instructions. If possible, launder items using the warmest appropriate water setting for the items and dry items completely. Dirtylaundry from an ill person can be washed with other people's items. o Clean and disinfect clothes hampers according to guidance above for surfaces. If possible, consider placing a bag bleacher that is either disposable (can be thrown away) or can be laundered. CDC has a list of EPA approved cleaning products on their website - https://www.cdc.gov/coronavirus/ 2019-ncov/community/home/cleaning-disinfection.html https://www.CytoSolv/Onnvc-Bpexicekzoy-Xilemohl-Products-List.pdf Grocery Stores with delivery and olive picker services: [employer]: Free olive picker at locations Delivery is $12.95 a month Website - [employer] [place]: Dior[employer] $2.95 (1st order is free) Delivery is $14.95 Website - [employer] [place]: desk clerks supervisor is free Delivery is $5.95 [employer]: desk clerks supervisor is $4.95 Delivery is $9.95 [employer]: desk clerks supervisor is $4.95 Delivery is $9.95 Website [employer]: Can be ordered for delivery and olive picker with [employer] Website - wwwScheduleThing [employer]: Free deliver for first 3 orders of $35 or more Website [employer]avor Will deliver from [employer], [employer], [employer], and [employer]. Annual membership is [...] Vital Signs: Vitals: 04/27/20 1204 04/27/20 1717 04/27/207 04/28/20 0030 BP: 105/78 118/72 120/70 134/80 [...] Care - Doing well, VSS - female infant - Contraception: Per private attending - DVT [...] know - She will follow with her LOOP PULLER in [place] - I will call Dr. Wray answering service at [phone] to update him with her condition, medications, [...] ambulating well. Flatus absent. Bowel movement absent. Laonzo catheter remains in place. She has yet [...] counseling and coordination of care. Junior Kat Jazmin Chung MD - 04/25/2020 11:32 PM EST MFM exhibition specialist physician tracing review from earlier admission with [...] Viewed tracing with Dr. Castellanos since approximately 1530 admission time 130 baseline with variability Cat [...] concern for concealed abruption. I did not quitline counselor the patient directly of the R/B/A [...] day, as when she first arrived [facility] more moderate than minimal. Patient [...] section and content) DATE CREATED AUTHOR 04/18/2020 [facility] DATE CREATED AUTHOR AUTHOR'S ORGANIZ ATION 02/28/2021 [facility] DATE CREATED AUTHOR AUTHOR'S ORGANIZ ATION 11/16/2021 [facility] DATE CREATED AUTHOR AUTHOR'S ORGANIZ ATION 09/10/2022 [facility] DATE CREATED AUTHOR AUTHOR'S ORGANIZ ATION 11/13/2022 [facility] DATE CREATED AUTHOR AUTHOR'S ORGANIZ ATION 04/22/2024 [facility] DATE CREATED AUTHOR AUTHOR'S ORGANIZ ATION 07/03/2024 [facility] EPIC Reason for Visit (unrecogniz ed section and content) Reason Comments Hypertension Reason Comments Eye Infection Both Eyes Reason Comments Conjunctivitis Follow Up Reason Comments Well Women Visit Reason Comments Contraception discuss cycles Ordered Prescriptions (unrec ognized section and content) [...] Care Team (unrecognized sect ion and content) Faith Healer Relationship Specialty Start Date End Date Baljit Watts MD [address] [place] [address] PCP - General Family Practice 11/07/21 Faith Healer Relationship Specialty Start Date End Date Baljit Watts MD [address] [place] [address] PCP - General Family Practice 11/07/21 Faith Healer Relationship Specialty Start Date End Date Baljit Watts MD [address] [place] [address] PCP - General Family Medicine 10/20/22 Faith Healer Relationship Specialty Start Date End Date Baljit Watts MD [address] [place] [address] PCP - General Family Medicine 10/20/22 Faith Healer Relationship Specialty Start Date End Date LinkBaljit MD [address] [place] [id number] PCP - General Family Medicine 10/20/22 Faith Healer Relationship Specialty Start Date End Date Baljit Watts MD [address] [place] [phone] PCP - General Family Medicine 10/20/22 Source Comments (unrecognize d section and content) In the event this informatio n is protected by the Federal Confidentiality of Alcohol and Drug Abuse Patient Records regulations: The Federal rules restrict any use of the information to criminally investigate or prosecute any alcohol or drug abuse patient.[facility] the event this information is protected by the Federal Confidentiality of Alcohol and Drug Abuse Patient Records regulations: The Federal rules restrict any use of the information to criminally investigate or prosecute any alcohol or drug abuse patient.[facility] FOR RECORDS PERTAINING TO PATIENTS [...] BE BASED ON THE PRIMARY CLINICAL RECORDS. [facility] [employer] [facility]. provides no warranty or guarantee of the accuracy or completeness of information in this document.
[2024-07-07 10:39] LABS: Basophils Percent Auto 0.1 % (0.2-2.0); Eosinophils Absolute Auto 0.1 10^3/uL (0.0-0.7); Eosinophils Percent Auto 0.7 % (0.9-7.0); Hematocrit 37.2 % (36.0-48.0); Hemoglobin 12.3 g/dL (12.0-16.0); Immature Granulocytes Abs Auto 0.02 10^3/uL (0.00-0.03); Immature Granulocytes Pct Auto 0.3 % (0.0-0.5); Lymphocytes Absolute Auto 1.7 10^3/uL (1.2-3.8); Lymphocytes Percent Auto 22.7 % (20.5-60.0); Mean Corpuscular HGB Conc 33.1 g/dL (29.9-35.2); Mean Corpuscular Hemoglobin 30.4 pg (26.7-34.0); Mean Corpuscular Volume 92.1 fL (81.0-99.0); Mean Platelet Volume 9.5 fL (9.5-13.5); Monocytes Absolute Auto 0.5 10^3/uL (0.3-0.8); Monocytes Percent Auto 6.7 % (1.7-12.0); Neutrophils Absolute Auto 5.2 10^3/uL (1.4-6.5); Neutrophils Percent Auto 69.5 % (43.0-75.0); Platelet Count 309 10^3/uL (150-450); Red Blood Count 4.04 10^6/uL (4.20-5.40); Red Cell Distribution Width 13.5 % (11.0-15.0); White Blood Count 7.5 10^3/uL (4.0-11.0)
[2024-07-07 10:40] LABS: BOX Test Reference Lab UNITY; BOX Test Sent Out UNITY
[2024-07-07 10:50] LABS: Amphetamine Screen Urine NEGATIVE (NEGATIVE); Barbiturates Screen Urine NEGATIVE (NEGATIVE); Benzodiazepines Screen Urine NEGATIVE (NEGATIVE); Buprenorphine Screen Urine NEGATIVE (NEGATIVE); Cannabinoid Screen Urine NEGATIVE (NEGATIVE); Cocaine Screen Urine NEGATIVE (NEGATIVE); Methadone Screen Urine NEGATIVE (NEGATIVE); Methamphetamines Screen Urine NEGATIVE (NEGATIVE); Opiate Screen Urine NEGATIVE (NEGATIVE); Oxycodone Screen Urine NEGATIVE (NEGATIVE); Phencyclidine Screen Urine NEGATIVE (NEGATIVE); Tricyclic Antidepressant Urine NEGATIVE (NEGATIVE)
[2024-07-07 12:29] LABS: Estimated Average Glucose 94 mg/dL; Glycohemoglobin A1C 4.9 % (4.5-6.2)
[2024-07-08 04:07] LABS: Rubella Antibodies, IgG 9.07 index (Immune >0.99)
[2024-07-08 05:08] LABS: HCV Ab Non Reactive (Non Reactive); HIV Ab/p24 Ag Screen Non Reactive (Non Reactive)
[2024-07-08 06:19] LABS: HBsAg Screen Negative (Negative)
[2024-07-08 12:08] LABS: Rapid Plasma Reagin, Quant Non Reactive titer (NonRea<1:1)
== END 2024-07-07 10:08 | disposition home or self-care (01) ==
LOC: LAB 10:08
PROVIDERS: Visit Provider Obstetrics & Gynecology
DX: Z34.01 Encounter for supervision of normal first pregnancy, first trimester (principal); Z36.0 Encounter for antenatal screening for chromosomal anomalies; N92.6 Irregular menstruation, unspecified
CPT/HCPCS: 36415; 80307; 83036; 85025; 86592; 86762; 86803; 86850; 86900; 86901; 87086; 87340; 87389

== ENCOUNTER 2024-10-31 09:10 | Outpatient (OUT) | payer OTHER, SELFPAY ==
--- OUTSIDE RECORDS SUMMARY | 2024-10-25 14:21 | XMS_ITS ---
Author Name Auto Generated Organization [facility] Care Team Providers [employer] Name Role Phone Olga Amos Gaona Attending Unavailable JOSE ALFREDO, SILAS Attending Unavailable JOSE ALFREDO, SILAS Attending Unavailable JOSE ALFREDO, SILAS Attending Unavailable JOSE ALFREDO, SILAS Attending Unavailable JOSE ALFREDO, SILAS Attending Unavailable VELIA, LATANYA Attending Unavailable PROBLEMS No Problem Records Found PROCEDURES No Procedure Records Found RESULTS US OB TRANSVAGINAL Observed: 07/01/2024 9:58 AM Status: F Source: [facility] EPIC Order Comment: US OB TRANSVA GINAL No LMP recorded. EXAM: US OB TRANSVAGINAL HISTORY: Dating. COMPARISON: [...] II, MD, PHD at 02-Jul-2024 09:14:34 AM [facility] ED PATIENT EDUCATION NOTE Observed: 03/28 1:34 AM Status: F Source: [facility] ED Patient Education Note ENT Earache, Adult An [...] at home: Medicines ??? Take or apply dpgc-vyq-liqwhxx and prescription medicines only as told by [...] told by your health care provider. Use the heat source that your health care provider recommends, [...] provider. Document Revised: 08/25/2022 Document Reviewed: 08/25/2022 [employer] Patient Education ? 2023 [employer] Inc.Infectious Disease Upper Respiratory Infection, Adult An upper respiratory infection (URI) is a common viral infection of the nose, throat, and upper air passages that lead to the lungs. The most [...] medicines to help relieve symptoms, such as: ??? Pyjj-pbi-vmpvrus cold medicines. ??? Cough suppressants. Coughing is a type of defense against infection that helps to clear the respiratory system, so take these medicines only as recommended by your health care provider. ??? Fever-reducing medicines. Follow these instructions at home: Activity ??? Rest as needed. ??? If you have a fever, stay home from work or school until your fever is gone or until your health care provider says your URI cannot spread to other people (is no longer contagious). Your health care provider may have you wear a face mask to prevent your infection from spreading. Relieving symptoms ??? Gargle with a mixture of salt and water 3?4 times a day or as needed. To make salt water, completely dissolve ??1 tsp (3?6 g) of salt in 1 cup (237 mL) of warm water. ??? Use a cool-mist humidifier to add moisture to the air. This can help you breathe more easily. Eating and drinking ??? Drink enough fluid to keep your urine pale yellow. ??? Eat soups and other clear broths. General instructions ??? Take cthc-ccn-gidsati and prescription medicines only as told by your health care provider. These include cold medicines, fever reducers, and cough suppressants. ??? Do not use any products that contain nicotine or tobacco. These products include cigarettes, chewing tobacco, and vaping devices, such as e-cigarettes. If you need help quitting, ask your health care provider. ??? Stay away from secondhand smoke. ??? Stay up to date on all immunizations, including the yearly (annual) flu vaccine. ??? Keep all follow-up visits. This is important. How to prevent the spread of infection to others URIs can be contagious. To prevent the infection from spreading: ??? Wash your hands with soap and water for at least 20 seconds. If soap and water are not available, use hand executive receptionist. ??? Avoid touching your mouth, face, eyes, or nose. ??? Cough or sneeze into a tissue or your sleeve or elbow instead of into your hand or into the air. Contact a health care provider if: ??? You are getting worse instead of better. ??? You have a fever or chills. ??? Your mucus is brown or red. ??? You have yellow or brown discharge coming from your nose. ??? You have pain in your face, especially when you bend forward. ??? You have swollen neck glands. ??? You have pain while swallowing. ??? You have white areas in the back of your throat. Get help right away if: ??? You have shortness of breath that gets worse. ??? You have severe or persistent: ? Headache. ? Ear pain. ? Sinus pain. ? Chest pain. ??? You have chronic lung disease along with any of the following: ? Making high-pitched whistling sounds when you breathe, most often when you breathe out (wheezing). ? Prolonged cough (more than 14 days). ? Coughing up blood. ? A change in your usual mucus. ??? You have a stiff neck. ??? You have changes in your: ? Vision. ? Hearing. ? Thinking. ? Mood. These symptoms may be an emergency. Get help right away. Call 911. ??? Do not wait to see if the symptoms will go away. ??? Do not drive yourself to the hospital. Summary ??? An upper respiratory infection (URI) is a common infection of the nose, throat, and upper air passages that lead to the lungs. ??? A URI is caused by a virus. ??? URIs usually get better on their own within 7?10 days. ??? Medicines cannot cure URIs, but your health care provider may recommend certain medicines to help relieve symptoms. This information is not intended to replace advice given to you by your health care provider. Make sure you discuss any questions you have with your health care provider. Document Revised: 11/13/2021 Document Reviewed: 11/13/2021 [employer] Patient Education ? 2023 [employer]. ED PATIENT SUMMARY Observed: 04/19/2024 1:34 AM Status: F Source: [facility] ED Patient Summary [address] [address] Patient Discharge Instructions Person Information Name: ANAND PERALES Age: 23 Years Arrival Date: 04/19/2024 01:04:22 Discharge Diagnosis: 1:Ear pain, right; 2:Upper respiratory infection Primary Care Physician: Kathy Mccall DO Provider Information Primary Provider: Olga Davison, Amos Gaona Advanced T[employer] Servicer:None The exam and treatment you received in the Emergency Department were for an urgent problem and are not intended as complete care. It is important that you follow up with a doctor, nurse practitioner, or physician???s assistant clinical nurse manager for ongoing care. If your symptoms become worse or you do not improve as expected and you are unable to reach your usual health care provider, you should return to the Emergency Department. We are available 24 hours a day. ANAND PERALES has been given the following list of patient education materials, prescriptions and follow-up instructions: Follow-up Instructions: With: Address: When: Kathy Mccall [address], [address], [address] [place], [place] [id number] [facility] () In 3 days 04/22/2024 Comments: Return to [...] opioids can be used to help relieve ztahwtwr-yz-ktflza pain and are often prescribed following a [...] from the Food and Drug Administration (www.fda.gov/Drugs/ResourcesForYou). ??? Visit www.cdc.gov/drugoverdose to learn about the risks of opioids abuse and overdose. ??? If you believe you may be struggling with addiction, tell your health childcare administrator and ask for guidance or call [facility]S National Helpline at 1-122-198-HELP. v Source: US Department of Health and Human Services/Center for Disease Control & Prevention [facility] Medications Given: Medication Dose Route No medications found. Medication Information: Medications to Continue with No Changes Other [...] vaginal suppository) 1 Suppositories Vaginal every day. Comment: Pharmacy Information: Patient Portal You may access all of your results and other medical record information on our secure patient portal. If you are not signed up for this yet, please contact [employer] at [phone] to get signed up today. MALCOLM Award Nomination The MALCOLM (Diseases Attacking the Immune SYstem) Award is an international recognition program that honors and celebrates the skillful, compassionate care nurses provide every day. Anyone who experiences or observes amazing care being provided by a nurse is encouraged to submit a nomination. To nominate your nurse, use your smart phone to scan the QR code below. You may receive a survey from [employer] asking you to rate your care experience. Your feedback is important and will help us understand what we do well and how we can improve the quality of care we provide to you, your loved ones and our community. It???s an honor to serve you. Thank you for choosing [facility] Patient Education Materials: Upper Respiratory Infection, Adult An upper respiratory infection (URI) is a common viral infection of the nose, throat, and upper air passages that lead to the lungs. The most [...] medicines to help relieve symptoms, such as: ??? Rfca-pvm-vnionui cold medicines. ??? Cough suppressants. Coughing is a type of defense against infection that helps to clear the respiratory system, so take these medicines only as recommended by your health care provider. ??? Fever-reducing medicines. Follow these instructions at home: Activity ??? Rest as needed. ??? If you have a fever, stay home from work or school until your fever is gone or until your health care provider says your URI cannot spread to other people (is no longer contagious). Your health care provider may have you wear a face mask to prevent your infection from spreading. Relieving symptoms ??? Gargle with a mixture of salt and water 3?4 times a day or as needed. To make salt water, completely dissolve ??1 tsp (3?6 g) of salt in 1 cup (237 mL) of warm water. ??? Use a cool-mist humidifier to add moisture to the air. This can help you breathe more easily. Eating and drinking ??? Drink enough fluid to keep your urine pale yellow. ??? Eat soups and other clear broths. General instructions ??? Take tzpe-yrv-vcaxyle and prescription medicines only as told by your health care provider. These include cold medicines, fever reducers, and cough suppressants. ??? Do not use any products that contain nicotine or tobacco. These products include cigarettes, chewing tobacco, and vaping devices, such as e-cigarettes. If you need help quitting, ask your health care provider. ??? Stay away from secondhand smoke. ??? Stay up to date on all immunizations, including the yearly (annual) flu vaccine. ??? Keep all follow-up visits. This is important. How to prevent the spread of infection to others URIs can be contagious. To prevent the infection from spreading: ??? Wash your hands with soap and water for at least 20 seconds. If soap and water are not available, use hand executive receptionist. ??? Avoid touching your mouth, face, eyes, or nose. ??? Cough or sneeze into a tissue or your sleeve or elbow instead of into your hand or into the air. Contact a health care provider if: ??? You are getting worse instead of better. ??? You have a fever or chills. ??? Your mucus is brown or red. ??? You have yellow or brown discharge coming from your nose. ??? You have pain in your face, especially when you bend forward. ??? You have swollen neck glands. ??? You have pain while swallowing. ??? You have white areas in the back of your throat. Get help right away if: ??? You have shortness of breath that gets worse. ??? You have severe or persistent: ? Headache. ? Ear pain. ? Sinus pain. ? Chest pain. ??? You have chronic lung disease along with any of the following: ? Making high-pitched whistling sounds when you breathe, most often when you breathe out (wheezing). ? Prolonged cough (more than 14 days). ? Coughing up blood. ? A change in your usual mucus. ??? You have a stiff neck. ??? You have changes in your: ? Vision. ? Hearing. ? Thinking. ? Mood. These symptoms may be an emergency. Get help right away. Call 911. ??? Do not wait to see if the symptoms will go away. ??? Do not drive yourself to the hospital. Summary ??? An upper respiratory infection (URI) is a common infection of the nose, throat, and upper air passages that lead to the lungs. ??? A URI is caused by a virus. ??? URIs usually get better on their own within 7?10 days. ??? Medicines cannot cure URIs, but your health care provider may recommend certain medicines to help relieve symptoms. This information is not intended to replace advice given to you by your health care provider. Make sure you discuss any questions you have with your health care provider. Document Revised: 11/13/2021 Document Reviewed: 11/13/2021 [employer] Patient Education ? 2023 [employer] Inc. Earache, Adult An earache, or ear pain, [...] at home: Medicines ??? Take or apply rflx-yzz-eytcizt and prescription medicines only as told by [...] told by your health care provider. Use the heat source that your health care provider recommends, [...] provider. Document Revised: 08/25/2022 Document Reviewed: 08/25/2022 [employer] Patient Education ? 2023 [employer] Inc. I, ANAND PERALES , have received the following patient education materials/instructions and have verbalized understanding: Patient Education Materials: Upper Respiratory Infection, Adult; Earache, Adult Follow-up Instructions: With: Address: When: Kathy Mccall [facility] [address], [address] [id number] [facility] (7) In 3 days 04/22/2024 Comments: Return to the emergency room if your pain recurs or any new symptoms. Patient Signature Date Clinician/Nurse Signature Date 04/19/2024 01:34:10 ED CLINICAL SUMMARY Observed: 04/19/2024 1:34 AM Status: F Source: [facility] ED Clinical Summary [address] [address] ED Clinical Summary Person Information Name: ANAND PERALES [place] Age: 23 Years : 2000 Sex: Female Language: Armenian PCP: Kathy Mccall DO Marital Status: Single Phone: [phone] Visit Id: Visit Reason: Ear pain; RIGHT [...] 04/19/2024 01:34:08 04/19/2024 01:34:08 04/19/2024 01:34:08 ADDRESS: [address] [place] [id number] [facility] DOC NOTES: MEDICAL INFORMATION: Prescriptions Given: Medications [...] Earache, Adult Follow up: With: Address: When: Kathy Crockett [address], [address], [facility] [address] [place] [address] [employer] ([employer] In 3 days 04/22/2024 Comments: Return to the emergency room if your pain recurs or any new symptoms. DIAGNOSIS: 1:Ear pain, right; 2:Upper respiratory infection ED NOTE-PHYSICIAN Observed: 04/19/2024 1:30 AM Status: F Source: [facility] ED Note-Physician Basic Information Time Seen: Amos [...] and Complexity of Problems Differential Diagnosis: [] [facility] Data External documents reviewed: [] My EKG [...] home. She was instructed to take decongestion ztss-wgo-rxyclyn. 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 Lab Results No qualifying data available.Diagnostic Results No qualifying data available. Result Comment: Electronical ly Signed By: Amos Espinoza M.D..dontrell\Date and Time Signed: 04/19/24 03:09 EST ALLERGIES DATE TYPE / CODE NAME / CODE REACTION SEVERITY SOURCE /[id number](SNOMED CT) No Known Allergies [facility] ENCOUNTERS ADMIT/DISCHARGE ACCOUNT NUMBER ADMITTING ENCOUNTER CLASS LOCATION SOURCE 10/25/2024/ 5 [id number] Ambulatory Building:NOM S [facility] OB [facility] EPIC 09/27/2024/ 5 [id number] Ambulatory Building:NOM S [facility] EPIC 08/29/2024/ 5 [id number] Ambulatory Building:NOM S [facility] OB [facility] EPIC 08/01/2024/ 5 [id number] Ambulatory Building:NOM S [facility] OB [facility] EPIC 07/01/2024/ 5 [id number] Ambulatory Building:NOM S [facility] OB [facility] EPIC 07/01/2024/ 5 [id number] Ambulatory Building:NOM S [facility] OB [facility] EPIC 05/19/2024/ 5 [id number] Ambulatory Building:NOM S [facility] EPIC 04/19/2024/ 4 [id number] [facility] 03/08/2024/ 4 [id number] Ambulatory Building:NOM S [facility] OB [facility] EPIC PAYERS ENCOUNTER GUARANTOR PAYER SUBSCRIBER SOURCE 10/25/2024 ANAND JEFFERSONB: [place], [place] [address]Xpy: () Primary Insurance:[place] MED[place] Number: [id number] Date:2020-05-28 ANAND JEFFERSONB: [id number] [place] [address] [facility] 09/27/2024 ANAND JEFFERSONB: [place], [place] [address]Yth: () Primary Insurance:[place] MEDICAIDPolicy Number: [id number] Date:2020-05-28 ANAND JEFFERSONB: [id number] [place] [address] [facility] EPIC 08/29/2024 ANAND PERALESDOB: [place], [place] [address]Pni: (HP) Primary Insurance:[place] MED[place] Number: [id number] Date:2020-05-28 ANAND PERALESDOB: [id number] [address] [facility] EPIC 08/01/2024 ANAND PERALESDOB: [place], [place] [address]Oci: (HP) Primary Insurance:[place] MEDICAIDPolicy Number: [id number] Date:2020-05-28 ANAND PERALESDOB: [id number] [address] [facility] EPIC 07/01/2024 ANAND PERALESDOB: [place], [place] [address]Xcw: (HP) Primary Insurance:[place] MEDICAIDPolicy Number: [id number] Date:2020-05-28 ANAND JEFFERSONB: [id number] [place] [address] [facility] EPIC 07/01/2024 ANAND JEFFERSONB: [place], [place] [address]Dop: (HP) Primary Insurance:[place] MEDICAIDPolicy Number: [id number] Date:2020-05-28 ANAND PERALESDOB: [id number] [address] [facility] EPIC 05/19/2024 ANAND PERALESDOB: [place], [place] [address]Kxy: (HP) Primary Insurance:[place] MEDICAIDPolicy Number: [id number] Date:2020-05-28 ANAND ORONA: [id number] [place] [address] [facility] 04/19/2024 [facility]NAND ORONA: [facility]ETel: () Primary Insurance:HancockPolwunderloop Number: [id number] Date:[id number] [address]UN: ANAND CHURCH [facility] 03/08/2024 ANAND ORONA: [id number] [facility] [place] [address]Zfe: () Primary Insurance:[place] MEDICAIDPolicy Number: [id number] Date:2020-05-28 ANNAD JEFFERSONB: [id number] [place] [address] [facility]
--- OUTSIDE RECORDS SUMMARY | 2024-10-25 14:30 | XMS_ITS | Encounter Summary ---
Author Organization [facility] Address [address] [place] [address] Care Team Providers Care Doctor Of Podiatry Name Role Phone Link, Baljit PRETTY Primary Care Provider [phone] Reason for Visit * Reason Comments Routine Visit Encounter Details Date Type Department Care Team (Late st Contact Info) Description 10/25/2024 2:30 PM EDT Routine [facility] [address] [place] [address] Simona Currie PA [address] [place], [facility] Second trimester ([facility]); 24 weeks gestation of ([facility]); HSV infection; H/O pre-eclampsia in prior , currently ([facility]); Diabetes mellitus screening; Encounter for anatomic survey ([facility]) Social History Tobacco Use Types Packs/Day Years Used Date Smoking Tobacco: Never Smokeless Tobacco: Never Alcohol Use Standard Drinks/Week Comments Not Currently 0 (1 standard drink = 0.6 oz pur e alcohol) caffeine: rarely Estimated Date of Delivery Comme nts Yes 02/08/2025 Based on last me nstrual period of 05/04/2024 Sex and Gender Information Value Date Recorded Sex Assigned at Female 10/19/2022 9:47 AM EDT Legal Sex Female 8:33 PM EDT Gender Identity Female 10/19/2022 9:47 AM EDT Sexual Orientation Not on file documented as of this encounter Last Filed Vital Signs Vital Sign Reading Time Taken Comments Blood Pressure 110/62 10/25/2024 2:39 PM EDT Pulse - - Temperature - - Respiratory Rate - - Oxygen Saturation - - Inhaled Oxygen Concentration - - Weight 79.4 kg (175 lb) 10/25/2024 2:39 PM EDT Height - - Body Mass Index 28.25 10/26/2023 1:10 PM EDT documented in this encounter Progress Notes * CODY Dumont - 10/25/2024 2:30 PM EDT Reason for Appointment: Patient ID: Johana Herrera is a 24 y.o. female who presents for Routine Visit Patient presents today for Return OB appointment. MEDICATIONS Current Outpatient Medications Medication Instructions Ferrous Sulfate (IRON PO) 1 tablet, Oral, Daily RT MV-Min-Fe Fum-FA-DHA ( 1 PO) 1 each, Daily Progesterone 200 mg, Vaginal, Nightly, Insert suppository vaginally every night at bedtime until 36weeks gestation Vyvanse 40 mg, Daily ALLERGIES No Known Allergies PROBLEMS Active Ambulatory Problems Diagnosis Date Noted No Active Ambulatory Problems Resolved Ambulatory Problems Diagnosis Date Noted No Resolved Ambulatory Problems Past Medical History: Diagnosis Date Pre-eclampsia ([facility]) HISTORY PAST MEDICAL HISTORY SOCIAL HISTORY Past Medical History: Diagnosis Date Pre-eclampsia ([facility]) Social History Tobacco Use Smoking status: Never [...] reviewed. Vitals: Estimated body mass index is 28.25 kg/m?? as calculated from the following: Height as of 10/26/23: 5' 6 . Weight as of this encounter: 175 lb. BP: 110/62 Patient's last menstrual period was 05/04/2024. ASSESSMENT & PLAN ICD-10-CM 1. Second trimester ([facility]) Z34.92 POCT urinalysis dipstick manually resulted 2. 24 weeks gestation of ([facility]) Z3A.24 3. HSV infection B00.9 4. H/O pre-eclampsia in prior , currently ([facility]) O09.299 5. Diabetes mellitus screening Z13.1 CBC Glucose tolerance, 1 hour CBC Glucose tolerance, 1 hour 6. Encounter for anatomic survey ([facility]) Z36.89 US OB limited 1+ fetuses Return OB: Patient presents today for a routine obstetrics appointment. Patient is currently 24w6d . Patient states she is doing well but has complaints of being tired due to current . Patient has verbalizes frequent movement. labor precautions was discussed/given and patient was instructed to perform kick counts three times a day. Patient is not being seen at [facility] no longer. Simona Currie gave patient a Rpt Anatomy US to have obtained in our office /[facility] due to the spine not seen at her last US scan 08/16/2024. PVU and will have US scheduled. Pt was given 1 hour glucose/CBC order to have done prior to returning to next OB visit in 3 weeks. PVU. Orders Placed This Encounter Procedures US OB limited 1+ fetuses CBC Glucose tolerance, 1 hour POCT urinalysis dipstick manually resulted Follow Up: Patient is to return to office in 2 week for routine OB appointment. Documented by Justine Young MA on behalf of: CODY Dumont documented in this encounter Plan of Treatment Upcoming Encounters Date Type Department Care Team (Late st Contact Info) Description 11/22/2024 11:40 AM EDT Routine [facility] [address] [place] [id number] Marco A Greene, DO [address] [place], [place] [id number] 03/14/2025 11:00 AM EST Office Visit [facility] [address] [place] [address] Marco A Greene, DO [address] [place], [place] [id number] Scheduled Orders Name Type Priority Associated Diagnoses Orde r Schedule CBC Lab Routine Diabetes mellitus screening Expected: 10/25/2024 (Approximate), Expires: 10/25/2025 Glucose tolerance, 1 hour Lab Routine Diabetes mellitus screening Expected: 10/25/2024 (Approximate), Expires: 10/25/2025 US OB limited 1+ fetuses Imaging Routine Encounter for anatomic survey ([facility]) Expected: 10/25/2024 (Approximate), Expires: 01/25/2025 documented as of this encounter Procedures Procedure Name Priority Date/Time Associated Diagnosis Comments POCT URINALYSIS DIPSTICK Routine 10/25/2024 2:39 PM EDT Second trimester ([facility]) documented in this encounter Results * POCT urinalysis dipstick manually resulted (10/25/2024 2:39 PM EDT) Color, UA Yellow Clarity, UA Clear Glucose, UA Negative Negative - 1999(110) ++++ mg/dL Bilirubin, UA Negative Negative - 4(70) +++ mg/dL Ketones, UA Negative Negative - 160(16) ++++ mg/dL Spec Grav, UA 1.020 1 - 1.03 Blood, UA Negative Negative - 50 Gabirel/mcL pH, UA 6.5 5 - 9 Protein, UA Negative Negative - 1999(20) ++++ mg/dL Urobilinogen, UA 0.2 0.2 - 12 mg/dL Leukocytes, UA Negative Negative - 500+++ Sebastián/mcL Nitrite, UA Negative Negative - Positive Urine 10/25/2024 2:39 PM EDT Simona ROSS POINT OF CARE TEST ENTER/EDIT OR DERABLES Final Result documented in this encounter Visit Diagnoses Diagnosis Second trimester ([facility]) state, incidental 24 weeks gestation of ([facility]) HSV infection Herpes simplex without mention of complication H/O pre-eclampsia in prior , currently ([facility]) Diabetes mellitus screening Screening for diabetes mellitus Encounter for anatomic survey ([facility]) Encounter for anatomic survey documented in this encounter Care Teams Doctor Of Podiatry Relationship Specialty Start Date End Date Baljit Watts MD PCP - General Family Medicine 10/20/22 documented as of this encounter
--- OUTSIDE RECORDS SUMMARY | 2024-10-31 09:13 | XMS_ITS | Encounter Summary ---
Author Organization [facility] Address [address] [place] [address] Care Team Providers Care Computer Assembler Name Role Phone Link, Baljit PRETTY Primary Care Provider [phone] Encounter Details Date Type Department Care Team (Late st Contact Info) Description 03/10/2023 Clinisync Result Encounter [facility] External Department Unsolicited Marco A Greene, DO [address], [facility] Social History Tobacco Use Types Packs/Day Years Used Date Smoking Tobacco: Never Alcohol Use Standard Drinks/Week Comments Never 0 (1 standard drink = 0.6 oz pur e alcohol) caffeine: rarely Comments Yes Sex and Gender Information Value Date Recorded Sex Assigned at Female 10/19/2022 9:47 AM EDT Legal Sex Female 8:33 PM EDT Gender Identity Female 10/19/2022 9:47 AM EDT Sexual Orientation Not on file COVID-19 Exposure Response Date Recorded In the last 10 days, have yo u been in contact with someone who was confirmed or suspected to have Coronavirus/COVID-19? No / Unsure 03/09/2023 7:10 AM EST documented as of this encounter Plan of Treatment Upcoming Encounters Date Type Department Care Team (Late st Contact Info) Description 11/22/2024 11:40 AM EDT Routine [facility] B[facility] OB [address] [place] [phone] Marco A Greene DO [address], [facility] 03/14/2025 11:00 AM EST Office Visit [facility] [address] [facility] [place] [address] Marco A Greene, DO [address] [place] [address] [place] [address] documented as of this encounter Procedures Procedure Name Priority Date/Time Associated Diagnosis Comments [facility] TOTAL PROTEIN 24 HOUR URINE Routine 03/10/2023 10:00 PM EST US OB BPP WO NON-STRESS 03/10/2023 10:23 AM EST documented in this encounter Results * (ABNORMAL) TBH TOTAL PROTEIN 24 HOUR URINE (03/10/2023 10:00 PM EST) TOTAL PROTEIN URINE RANDOM <6.0 <=11.9 mg/dL [facility] TOTAL VOLUME 24 HOUR URINE 4,550 mL/24hr TBH TBH TOTAL PROTEIN 24 HOUR URINE 273.0(H) <=149.1 mg/24hr TBH 03/10/2023 10:0 0 PM EST 03/11/2023 9:20 AM EST Narrative [facility] - 03/11/2023 11:56 AM EST Marco A Greene DO [facility] Final Result [facility] TB * US OB BPP WO NON-STRESS (03/10/2023 10:23 AM EST) Anatomical Region Laterality Modality Other 03/10/2023 10:2 3 AM EST Narrative 03/10/2023 10:23 AM EST The [address] [address] Ultrasound Report Signed Patient: ANAND HERRERA MR#: [id number] : 2000 Acct:[id number] Age/Sex: 22 / F ADM Date: Loc: [facility] 251-[address]: Anita Graves M.D. Ordering Physician: Marco A Greene D.O. Date of Service: 03/10/23 Procedure(s): US OB BPP wo non-stress Accession Number(s): [id number] cc: Marco A Greene D.O.; Physician,Non-Staff [address] The [place] [id number] Patient Name: ANAND HERRERA MRN: [facility]:[id number] date: 2000 Sex: F Assigned Patient Location: [facility] Current Patient Location: [facility] Accession/Order Number: [id number] Exam Date: 03/10/2023 08:45 Report Date: 03/10/2023 10:23 At the request of: MARCO A GREENE Procedure: US OB BPP wo non-stress EXAMINATION: US OB BPP wo non-stress HISTORY: h/o delivery, severe PRE-E COMPARISON: Ultrasound OB growth 02/09/2023 TECHNIQUE: Ultrasound biophysical profile was performed in the radiology department. BREATHING MOVEMENTS: 2.0 GROSS BODY MOVEMENTS: 2.0 TONE: 2.0 QUALITATIVE AMNIOTIC FLUID VOLUME: 2.0 PRESENTATION: CEPHALIC HEART RATE: 135.7 bpm bpm. AMNIOTIC FLUID VOLUME: 11.8 cm GESTATIONAL AGE: 35 weeks 6 days CONCLUSION: Total biophysical profile score 8.0. Electronically authenticated by: LEO LEOS Date: 03/10/2023 10:23 Dictated By: Leo Leos M.D. Signed By: 03/10/23 1026 DD/ 1023 TD/TT: Director Trading: Procedure Note Radiology, Radiologist, MD - 03/10/2023 [place] [address] Ultrasound Report Signed Patient: ANAND HERRERA EMR#: [id number] : 2000Acct:[id number] Age/Sex: 22 / FADM Date: Loc: [facility] 251-[address]: Anita Graves M.D. Ordering Physician: Marco A Greene D.O. Date of Service: 03/10/23 Procedure(s): US OB BPP wo non-stress Accession Number(s): [id number] cc: Marco A Greene D.O.; Physician,Non-Staff [address] [place] [address] Patient Name: ANAND HERRERA MRN: [facility]:[id number] date: 2000 Sex: F Assigned Patient Location: [facility] Current Patient Location: [facility] Accession/Order Number: [id number] Exam Date: 03/10/2023 08:45 Report Date: 03/10/2023 10:23 At the request of: MARCO A GREENE Procedure: US OB BPP wo non-stress EXAMINATION: US OB BPP wo non-stress HISTORY: h/o delivery, severe PRE-E COMPARISON: Ultrasound OB growth 02/09/2023 TECHNIQUE: Ultrasound biophysical profile was performed in the radiology department. BREATHING MOVEMENTS: 2.0 GROSS BODY MOVEMENTS: 2.0 TONE: 2.0 QUALITATIVE AMNIOTIC FLUID VOLUME: 2.0 PRESENTATION: CEPHALIC HEART RATE: 135.7 bpm bpm. AMNIOTIC FLUID VOLUME: 11.8 cm GESTATIONAL AGE: 35 weeks 6 days CONCLUSION: Total biophysical profile score 8.0. Electronically authenticated by: LEO LEOS Date: 03/10/2023 10:23 Dictated By: Leo Leos M.D. Signed By:03/10/23 1026 DD/ 1023 TD/TT: Director Trading: Marco A Greene DO [facility] Final Result documented in this encounter Visit Diagnoses Not on filedocumented in this encounter Care Teams Computer Assembler Relationship Specialty Start Date End Date Link, MD Baljit PCP - General Family Medicine 10/20/22 documented as of this encounter
--- OUTSIDE RECORDS SUMMARY | 2024-10-31 09:13 | XMS_ITS | Encounter Summary ---
Author Organization [facility] Address [address] [place] [address] Care Team Providers Care Tester/Lift Trucker Name Role Phone Link, Baljit Gilbert DO Primary Care Provider [phone] Source Comments In the event this information is protected by the Federal Confidentiality of Alcohol and Drug AbusePatient Records regulations: The Federal rules restrict any use of the information to criminally investigate or prosecute any alcohol or drug abuse patient.[facility] Encounter Details Date Type Department Care Team (Late st Contact Info) Description 11/25/2021 Get Medical Advice Ophthalmology [address] [place] [address] Elmer Sheets, OD [address] [facility] [place] [address] Eye drops Social History Tobacco Use Types Packs/Day Years Used Date Smoking Tobacco: Never Smokeless Tobacco: Never Comments Unknown Sex and Gender Information Value Date Recorded Sex Assigned at Not on file Legal Sex Female 1:13 PM EDT Gender Identity Not on file Sexual Orientation Not on file COVID-19 Exposure Response Date Recorded In the last 10 days, have yo u been in contact with someone who was confirmed or suspected to have Coronavirus/COVID-19? No / Unsure 11/07/2021 1:18 PM EDT documented as of this encounter Plan of Treatment Not on file documented as of this encounter Visit Diagnoses Not on filedocumented in this encounter Care Teams Tester/Lift Trucker Relationship Specialty Start Date End Date Link, Baljit Gilbert DO [address] [facility] [place] [place] [phone] PCP - General Family Medicine 11/07/21 documented as of this encounter
--- OUTSIDE RECORDS SUMMARY | 2024-10-31 09:13 | XMS_ITS | Encounter Summary ---
Author Organization [facility] Address [address] [place] [address] Care Team Providers Care Fashion Consultant Name Role Phone Link, Baljit Gilbert DO Primary Care Provider [phone] Source Comments In the event this information is protected by the Federal Confidentiality of Alcohol and Drug AbusePatient Records regulations: The Federal rules restrict any use of the information to criminally investigate or prosecute any alcohol or drug abuse patient.[facility] Encounter Details Date Type Department Care Team (Late st Contact Info) Description 11/20/2021 Get Medical Advice Ophthalmology [address] [place] [address] Elmer Sheets, OD [address] [facility] [place] [address] Eye drops Social History Tobacco [...] on filedocumented in this encounter Care Teams Fashion Consultant Relationship Specialty Start Date End Date Link, Baljit Gilbert DO [address] [facility] [place] [phone] PCP - General Family Medicine 11/07/21 documented as of this encounter
--- OUTSIDE RECORDS SUMMARY | 2024-10-31 09:13 | XMS_ITS | Encounter Summary ---
Author Organization [facility] Address [address] [place] [address] Care Team Providers Care Fiscal Agent Name Role Phone Link, Baljit PRETTY Primary Care Provider [phone] Encounter Details Date Type Department Care Team (Late st Contact Info) Description 02/09/2023 Clinisync Result Encounter [facility] External Department Unsolicited Marco A Greene, DO [address], [facility]11 Social History Tobacco Use Types Packs/Day Years [...] suspected to have Coronavirus/COVID-19? No / Unsure 02/02/2023 8:44 AM EDT documented as of this encounter Plan of Treatment Upcoming Encounters Date Type Department Care Team (Late st Contact Info) Description 11/22/2024 11:40 AM EDT Routine [facility] BCP OB [address] [place] [phone] Marco A Greene, DO [address], [facility]11 03/14/2025 11:00 AM EST Office Visit [facility] OB [address] [facility] [place] [address] Marco A Greene DO [address] [facility] [place] [address] documented as of this encounter Procedures Procedure Name Priority Date/Time Associated Diagnosis Comments US OB GROWTH 02/09/2023 4:38 PM EDT documented in this encounter Results * US OB GROWTH (02/09/2023 4:38 PM EDT) Anatomical Region Laterality Modality Other 02/09/2023 4:38 PM EDT Narrative 02/09/2023 4:38 PM EDT [address] [address] Ultrasound Report Signed Patient: ANAND HERRERA MR#: [id number] : 2000 Acct:[id number] Age/Sex: 22 / F ADM Date: 02/09/23 Loc: US Attending Dr: Marco A Greene D.O. Ordering Physician: Marco A Greene D.O. Date of Service: 02/09/23 Procedure(s): US OB growth Accession Number(s): [id number] cc: Marco A Greene D.O. The [address] [address] Patient Name: ANAND HERRERA MRN: [id number] date: 2000 Sex: F Assigned Patient Location: US Current Patient Location: US Accession/Order Number: [id number] Exam Date: 02/09/2023 13:00 Report Date: 02/09/2023 16:38 At the request of: MARCO A GREENE Procedure: US OB growth EXAMINATION: US OB growth HISTORY: SIZE INCONSISTENT WITH DATES COMPARISON: No relevant comparison available. FINDINGS: Heart Rate: 161.0 bpm Amniotic Fluid Volume: 18.0 cm Number: 1.0 Position: Cephalic presentation, longitudinal lie Maximum Vertical Pocket: 4.4 cm cm 4.9 cm cm 4.4 cm cm 4.3 cm cm BIOMETRY: BPD: 8.2 cm cm; 33 weeks 1 days; 80% HC: 30.0 cmcm; 33 weeks 2 days, 55% AC: 28.9 cm cm; 32 weeks 6 days, 80% FL: 6.2 cm cm; 32 weeks 2 days; 51.0 % % EFW: 2039.5 grams, 4 lbs. 8 oz., 73% FL/AC: 21.6 FL/BPD: 75.6 HC/AC: 1.0 GESTATIONAL AGE: Age by EDC: 31 weeks 5 days OTF by EDC: 04/08/2023 Age by US: 32 weeks 6 days OTF by US: 03/31/2023 US/US OB growth IMPRESSION: Normal interval growth Electronically authenticated by: JESS NICOLE Date: 02/09/2023 16:38 Dictated By: Jess Nicole M.D. Signed By: 02/09/23 1640 DD/ 1638 TD/TT: Sales Representative [employer]: Procedure Note Radiology, Radiologist, MD - 02/09/2023 [place] [address] Ultrasound Report Signed Patient: ANAND HERRERA EMR#: [id number] : 2000Acct:[id number] Age/Sex: 22 / FADM Date: 02/09/23 Loc: US Attending Dr: Marco A Greene D.O. Ordering Physician: Marco A Greene D.O. Date of Service: 02/09/23 Procedure(s): US OB growth Accession Number(s): [id number] cc: Marco A Greene D.O. The [address] [address] Patient Name: ANAND HERRERA MRN: [id number] date: 2000 Sex: F Assigned Patient Location: US Current Patient Location: US Accession/Order Number: [id number] Exam Date: 02/09/2023 13:00 Report Date: 02/09/2023 16:38 At the request of: MARCO A GREENE Procedure: US OB growth EXAMINATION: US OB growth HISTORY: SIZE INCONSISTENT WITH DATES COMPARISON: No relevant comparison available. FINDINGS: Heart Rate: 161.0 bpm Amniotic Fluid Volume: 18.0 cm Number: 1.0 Position: Cephalic presentation, longitudinal lie Maximum Vertical Pocket: 4.4 cm cm 4.9 cm cm 4.4 cm cm 4.3 cm cm BIOMETRY: BPD: 8.2 cm cm; 33 weeks 1 days; 80% HC: 30.0 cmcm; 33 weeks 2 days, 55% AC: 28.9 cm cm; 32 weeks 6 days, 80% FL: 6.2 cm cm; 32 weeks 2 days; 51.0 % % EFW: 2039.5 grams, 4 lbs. 8 oz., 73% FL/AC: 21.6 FL/BPD: 75.6 HC/AC: 1.0 GESTATIONAL AGE: Age by EDC: 31 weeks 5 days OTF by EDC: 04/08/2023 Age by US: 32 weeks 6 days OTF by US: 03/31/2023 US/US OB growth IMPRESSION: Normal interval growth Electronically authenticated by: JESS NICOLE Date: 02/09/2023 16:38 Dictated By: Jess Nicole M.D. Signed By:02/09/23 1640 DD/ 1638 TD/TT: Sales Representative [employer]: us Marco A Greene DO [facility] Final Result documented in this encounter Visit Diagnoses Not on filedocumented in this encounter Care Teams Fiscal Agent Relationship Specialty Start Date End Date Baljit Watts MD PCP - General Family Medicine 10/20/22 documented as of this encounter
--- OUTSIDE RECORDS SUMMARY | 2024-10-31 09:13 | XMS_ITS | Patient Health Record ---
Author Organization [facility] Address [address] [place] [address] Care Team Providers Care Monitoring And Evaluation Advisor Name Role Phone Tanika Rosales Primary Care Provider [phone] Reason For Referral No Information Encounters Encounter Location Date Provider Diagnosis [facility] [place] [address] [place] [address] 09/28/2024 Tanika Rosales Dental caries on pit and fissure surface penetrating into dentin K02.52 ; Encounter for dental examination and cleaning with abnormal findings Z01.21 and Other dental procedure status Z98.818 Assessments Encounter Date Diagnosis (ICD Code) Assessment Notes Treatment Notes Treatment Clinical Notes Section Notes 09/28/2024 Dental caries on pit and fissure surface penetrating into dentin (ICD-10 - K02.52) 09/28/2024 Encounter for dental examination and cleaning with abnormal findings (ICD-10 - Z01.21) 09/28/2024 Other dental procedure status (ICD-10 - Z98.818) Plan Of Treatment Next Appt Details Provider Name:Tanika yoon, 03/20/2025 10:00:00 AM, [address] [place], [address], Insurance Providers Payer Name Payer Address Payer Phone Subscriber Number Group Number Insured Name Patient Relationship to Insured Coverage Start Date Coverage End Date Dental Fink [employer] [address] [place] [address] [id number] ANAND PERALES Self - patient is the insured 5 Dental Wrap [facility] Fink [address] [place] [address] [id number] ANAND PERALES Self - patient is the insured 5
--- OUTSIDE RECORDS SUMMARY | 2024-10-31 09:13 | XMS_ITS | Encounter Summary ---
Author Organization [facility] Address [address] [place] [address] Care Team Providers Care Screen Door Maker Name Role Phone Link, Baljit Gilbert DO Primary Care Provider Source Comments In the event this information is protected by the Federal Confidentiality of Alcohol and Drug AbusePatient Records regulations: The Federal rules restrict any use of the information to criminally investigate or prosecute any alcohol or drug abuse patient.[facility] Encounter Details Date Type Department Care Team (Late st Contact Info) Description 11/09/2021 Get Medical Advice Ophthalmology [address] [address] [place] [address] Elmer Sheets, OD [address] [facility] [place] [address] Eyes Social History Tobacco Use Types Packs/Day Years [...] on filedocumented in this encounter Care Teams Screen Door Maker Relationship Specialty Start Date End Date Link, Baljit Gilbert DO [address] [place] [phone] PCP - General Family Medicine 11/07/21 documented as of this encounter
--- OUTSIDE RECORDS SUMMARY | 2024-10-31 09:13 | XMS_ITS | Encounter Summary ---
Author Organization [facility] Address [address] [place] [address] Care Team Providers Care Tomato Grader Name Role Phone Link, Baljit PRETTY Primary Care Provider [phone] Encounter Details Date Type Department Care Team (Late st Contact Info) Description 09/29/2024 Abstract [facility] OB [address] [place] [address] Marco A Greene DO [facility] Marty [place], [facility]11 Social History Tobacco Use Types Packs/Day [...] on file documented as of this encounter Plan of Treatment Upcoming Encounters Date Type Department Care Team (Late st Contact Info) Description 11/22/2024 11:40 AM EDT Routine [facility] OB [address] [place] [address] Marco A Greene DO [facility] Marty [place], [facility]11 03/14/2025 11:00 AM EST Office Visit [facility] OB [address] [facility] [place] [address] Marco A Greene, [address] [facility] [place] [address] documented as of this encounter Visit Diagnoses Not on filedocumented in this encounter Care Teams Tomato Grader Relationship Specialty Start Date End Date Baljit Watts MD PCP - General Family Medicine 10/20/22 documented as of this encounter
--- OUTSIDE RECORDS SUMMARY | 2024-10-31 09:13 | XMS_ITS | Encounter Summary ---
Author Organization [facility] Address [address] [place] [address] Care Team Providers Care Cementer Machine Name Role Phone Link, Baljit Gilbert DO Primary Care Provider [phone] Source Comments In the event this information is protected by the Federal Confidentiality of Alcohol and Drug AbusePatient Records regulations: The Federal rules restrict any use of the information to criminally investigate or prosecute any alcohol or drug abuse patient.[facility] Encounter Details Date Type Department Care Team (Late st Contact Info) Description 11/14/2021 Get Medical Advice Ophthalmology [address] [place] [address] Elmer Sheets, OD [address] [facility] [place] [address] Appointment Social History Tobacco Use Types Packs/Day Years [...] on filedocumented in this encounter Care Teams Cementer Machine Relationship Specialty Start Date End Date Link, Baljit Gilbert DO [address] [place] [address] PCP - General Family Medicine 11/07/21 documented as of this encounter
--- OUTSIDE RECORDS SUMMARY | 2024-10-31 09:13 | XMS_ITS | Encounter Summary ---
Author Organization [facility] Address [address] [place] [address] Care Team Providers Care Inside Sales Lead Name Role Phone Link, Baljit PRETTY Primary Care Provider Encounter Details Date Type Department Care Team (Late st Contact Info) Description 08/16/2024 Abstract [facility] OB [address] [place] [address] [address] [facility] Marty Coffey, [facility]11 Social History Tobacco Use Types Packs/Day Years [...] Routine [facility] OB [address] [place] [address] [address] Greene DO [facility] Marty [place], [facility]11 03/14/2025 11:00 AM EST Office Visit [facility] OB [address] [facility] [address] Marco A Greene, [address] [facility] [place] [address] documented as of this encounter Visit Diagnoses Not on filedocumented in this encounter Care Teams Inside Sales Lead Relationship Specialty Start Date End Date Baljit Watts MD PCP - General Family Medicine 10/20/22 documented as of this encounter
--- OUTSIDE RECORDS SUMMARY | 2024-10-31 09:13 | XMS_ITS | Clinical Summary ---
Author Organization [facility] Address [address] [place] [address] Care Team Providers Care Economics Analyst Name Role Phone Link, Baljit Gilbert Primary Care Provider [phone] Allergies No known active allergies Medications predniSONE (DELTASONE) 20 mg tablet Take 20 mg by mouth once daily. 2 Active tobramycin (TOBREX) 0.3 % ophthalmic solution Use 0.3 Drops in both eyes three times daily. 2 Active prednisoLONE acetate (PRED FORTE, ECONOPRED PLUS) 1 % ophthalmic suspension Use 1 Drop in both eyes four times daily. 2 Active prednisoLONE acetate (PRED FORTE, ECONOPRED PLUS) 1 % ophthalmic suspension Use 1 Drop in both eyes every hour. 10 mL 1 2 Active tobramycin-dexA METHasone (TOBRADEX) 0.3-0.1 % ophthalmic ointment Use 1 application in both eyes daily at bedtime. 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 Social History Tobacco Use Types Packs/Day Years Used Date Smoking Tobacco: Never Smokeless Tobacco: Never Comments Unknown Sex and Gender Information Value Date Recorded Sex Assigned at Not on file Legal Sex Female 1:13 PM EDT Gender Identity Not on file Sexual Orientation Not on file Plan of Treatment Health Maintenance Due Date Last Done Comments Peds To Adult Transition Ini tial Discussion 2011 Peds To Adult Transition Shamika ual Assessment 10/08/2013 Anxiety Screening 10/08/2017 Depression Screening 10/08/2017 HIV Screening 10/08/2017 Hepatitis C Screening 10/08/2017 Cervical Cancer Screening 10/08/2020 Covid-19 Vaccine (1 - 2023-2 5 season) 2023 Influenza Vaccine (#1) 2024 04/27/2020 DTaP,Tdap,Td Vaccine (8 - Td or Tdap) 04/28/2030 04/28/2020, 12/08/2011, 12/19/2004, Additional history exists Hepatitis B Vaccine Completed 07/27/2002, 12/02/2000, 1999 HPV Vaccine Completed 06/21/2012, 01/25, 12/08/2011 Insurance [employer] [employer] Care Teams Economics Analyst Relationship Specialty Start Date End Date Link, Baljit Gilbert DO [address] [place] [phone] PCP - General Family Medicine 11/07/21
--- OUTSIDE RECORDS SUMMARY | 2024-10-31 09:13 | XMS_ITS | Encounter Summary ---
Author Organization [facility] Address [address] [place] [address] Care Team Providers Care Embroidery Patternmaker Name Role Phone Link, Baljit PRETTY Primary Care Provider [phone] Encounter Details Date Type Department Care Team (Late st Contact Info) Description 11/14/2022 Abstract [facility] OB [address] [facility] [address] Simona Currie PA [address] [place] [address] Dr [place], [place] [address] Social History Tobacco Use Types Packs/Day Years [...] suspected to have Coronavirus/COVID-19? No / Unsure 11/10/2022 8:38 AM EDT documented as of this encounter Plan of Treatment Upcoming Encounters Date Type Department Care Team (Late st Contact Info) Description 11/22/2024 11:40 AM EDT Routine [facility] OB [address] [facility] [address] Marco A Greene, DO [address] [place] [address] 03/14/2025 11:00 AM EST Office Visit [facility] OB [address] [facility] [place] [address] Marco A Greene, DO [address] [facility] [address] [place] [place], [place] [address] documented as of this encounter Visit Diagnoses Not on filedocumented in this encounter Care Teams Embroidery Patternmaker Relationship Specialty Start Date End Date Link, MD Baljit PCP - General Family Medicine 10/20/22 documented as of this encounter
--- OUTSIDE RECORDS SUMMARY | 2024-10-31 09:13 | XMS_ITS | Encounter Summary ---
Author Organization [facility] Address [address] [place] [address] Care Team Providers Care Pay Agent Name Role Phone Link, Baljit Gilbert DO Primary Care Provider [phone] Source Comments In the event this information is protected by the Federal Confidentiality of Alcohol and Drug AbusePatient Records regulations: The Federal rules restrict any use of the information to criminally investigate or prosecute any alcohol or drug abuse patient.[facility] Encounter Details Date Type Department Care Team (Late st Contact Info) Description 11/15/2021 Get Medical Advice Ophthalmology [address] [facility] [address] Elmer Sheets, OD [address] [facility] [place] [address] Eyes Social History Tobacco Use [...] on filedocumented in this encounter Care Teams Pay Agent Relationship Specialty Start Date End Date Link, Baljit Gilbert DO [address] [place] [phone] PCP - General Family Medicine 11/07/21 documented as of this encounter
--- OUTSIDE RECORDS SUMMARY | 2024-10-31 09:13 | XMS_ITS | Encounter Summary ---
Author Organization [facility] Address [address] [place] [address] Care Team Providers Care Director Of Casework Services Name Role Phone Link, Baljit PRETTY Primary Care Provider [phone] Encounter Details Date Type Department Care Team (Late st Contact Info) Description 09/26/2022 Clinisync Result Encounter [facility] External Department Unsolicited Marco A Greene, DO [address] [place], [facility]11 Social History Tobacco Use Types Packs/Day Years Used Date Smoking Tobacco: Never Assessed Comments Unknown Sex and Gender Information Value [...] Routine [facility] OB [address] [place] [address] Marco A Greene, DO [address] [place], [place] [id number] 03/14/2025 11:00 AM EST Office Visit [facility] OB [address] [place] [address] Marco A Greene, DO [address] [place], [place] [address] documented as of this encounter Procedures Procedure Name Priority Date/Time Associated Diagnosis Comments OB NT (NUCHAL TRANSLUCENCY) 09/26/2022 1:01 PM EDT documented in this encounter Results * OB NT (NUCHAL TRANSLUCENCY) (09/26/2022 1:01 PM EDT) Anatomical Region Laterality Modality Other 09/26/2022 1:01 PM EDT Narrative 09/26/2022 2:46 PM EDT Indication ======== Nuchal Translucency Screening, Pre-eclampsia without [...] gestational sac with a live fetus - Burrows rump length is consistent with given OTF [...] Extended Nasal bone: present Anatomy Heart: Normal [place] and [place]. Stomach: Visible, with correct situs. [...] Sufficient Electronically signed by: JESS FELDMAN MD Procedure Note Radiology, Radiologist, MD - 09/26/2022 Indication ======== Nuchal Translucency Screening, Pre-eclampsia without [...] gestational sac with a live fetus - Burrows rump length is consistent with given OTF [...] Extended Nasal bone: present Anatomy Heart: Normal [place] and [place]. Stomach: Visible, with correct situs. [...] Sufficient Electronically signed by: JESS FELDMAN MD Result [facility] Final Result documented in this encounter Visit Diagnoses Not on filedocumented in this encounter Care Teams Director Of Casework Services Relationship Specialty Start Date End Date Link, MD Baljit PCP - General Family Medicine 10/20/22 documented as of this encounter
--- OUTSIDE RECORDS SUMMARY | 2024-10-31 09:13 | XMS_ITS | Encounter Summary ---
Author Organization [facility] Address [address] [place] [address] Care Team Providers Care Development Officer Name Role Phone Link, Baljit PRETTY Primary Care Provider Encounter Details Date Type Department Care Team (Late st Contact Info) Description 11/10/2022 Clinisync Result Encounter [facility] External Department Unsolicited Marco A Greene, DO [address] [place], [facility]11 Social History Tobacco Use Types Packs/Day Years [...] Routine [facility] B[facility] OB [address] [place] [phone] Marco A Greene DO [address] [place], [facility]11 03/14/2025 11:00 AM EST Office Visit [facility] OB [address] [facility] [place] [address] Marco A Greene, DO [address] [place] [address] [place] [address] documented as of this encounter Procedures Procedure Name Priority Date/Time Associated Diagnosis Comments OB COMPLETED SCAN + DETAILED ANATOMY 11/10/2022 11:59 AM EDT documented in this encounter Results * OB COMPLETED SCAN + DETAILED ANATOMY (11/10/2022 11:59 AM EDT) Anatomical Region Laterality Modality Other 11/10/2022 11:5 9 AM EDT Narrative 11/10/2022 4:31 PM EDT Indication ======== Abnormality Suspected, Hypertension, Superimposed Pre-eclampsia, [...] 16% 29.9 48% 278 31% Impression ========= Johana Javier presents for a targeted anatomic survey. [...] EFW (oz) 10 oz EFW by: Hadlock (URC-WV-HE-FL) Extended Water Fitness Instructor 7.6 mm CM 4.4 mm 35% Nicolaides [...] Normal LVOT view: Normal 3-vessel view: Normal 3-jcdhgx-hvjowai view: Normal Heart / Thorax Situs: situs [...] feet: Normal sex: female Wants to know sex: yes Genetic Screen Age 22 yrs Echogenic focus: no Ventriculomegaly: no Nuchal fold: normal Echogenic bowel: no Pyelectasis: no Short femur: no Short humerus: no Nasal bone: present Display risk: Risk at time of screening Maternal Structures Uterus / Cervix Uterus: Visualized Uterus details: Normal Cervix: Visualized Cervix details: Long and closed Cervical length 45.4 mm Ovaries / Tubes / Adnexa Rt ovary: Visualized Rt ovary details: Normal Rt ovary D1 20.8 mm Rt ovary D2 20.8 mm Rt ovary D3 11.1 mm Rt ovary Vol 2.5 cm? Lt ovary: Visualized Lt ovary details: Normal Lt ovary D1 26.0 mm Lt ovary D2 20.1 mm Lt ovary D3 17.2 mm Lt ovary Vol 4.7 cm? Method ====== Transabdominal ultrasound examination. View: Suboptimal view: limited by position Electronically signed by: KELL JOHNSON MD Procedure Note Radiology, Radiologist, - 11/10/2022 Indication ======== Abnormality Suspected, Hypertension, Superimposed Pre-eclampsia, [...] 16% 29.9 48% 278 31% Impression ========= Johana Herrera presents for a targeted anatomic survey. [...] EFW (oz) 10 oz EFW by: Hadlock (OWD-YC-IE-FL) Extended Water Fitness Instructor 7.6 mm CM 4.4 mm 35% Nicolaides [...] Normal LVOT view: Normal 3-vessel view: Normal 4-quaqxx-yjqoyxt view: Normal Heart / Thorax Situs: situs [...] feet: Normal sex: female Wants to know sex: yes Genetic Screen Age 22 yrs Echogenic focus: no Ventriculomegaly: no Nuchal fold: normal Echogenic bowel: no Pyelectasis: no Short femur: no Short humerus: no Nasal bone: present Display risk: Risk at time of screening Maternal Structures Uterus / Cervix Uterus: Visualized Uterus details: Normal Cervix: Visualized Cervix details: Long and closed Cervical length 45.4 mm Ovaries / Tubes / Adnexa Rt ovary: Visualized Rt ovary details: Normal Rt ovary D1 20.8 mm Rt ovary D2 20.8 mm Rt ovary D3 11.1 mm Rt ovary Vol 2.5 cm? Lt ovary: Visualized Lt ovary details: Normal Lt ovary D1 26.0 mm Lt ovary D2 20.1 mm Lt ovary D3 17.2 mm Lt ovary Vol 4.7 cm? Method ====== Transabdominal ultrasound examination. View: Suboptimal view: limited by position Electronically signed by: KELL JOHNSON MD us Marco A Greene DO [facility] Final Result documented in this encounter Visit Diagnoses Not on filedocumented in this encounter Care Teams Development Officer Relationship Specialty Start Date End Date Link, MD Baljit PCP - General Family Medicine 10/20/22 documented as of this encounter
--- OUTSIDE RECORDS SUMMARY | 2024-10-31 09:13 | XMS_ITS | Encounter Summary ---
Author Organization [facility] Address [address] [facility] [place] [address] Care Team Providers Care Crew Lead Name Role Phone Link, Baljit PRETTY Primary Care Provider [phone] Encounter Details Date Type Department Care Team (Late st Contact Info) Description 01/12/2023 Clinisync Result Encounter [facility] External Department Unsolicited Marco A Greene, DO [address], [facility] Social History Tobacco Use Types Packs/Day Years [...] suspected to have Coronavirus/COVID-19? No / Unsure 01/12/2023 5:07 AM EDT documented as of this encounter Plan of Treatment Upcoming Encounters Date Type Department Care Team (Late st Contact Info) Description 11/22/2024 11:40 AM EDT Routine [facility] OB [address] [place] [phone] Marco A Greene DO [address], [facility] [address] 03/14/2025 11:00 AM EST Office Visit [facility] OB [address] [facility] [place] [address] Marco A Greene, DO [address] [facility] [place] [address] documented as of this encounter Procedures Procedure Name Priority Date/Time Associated Diagnosis Comments US OB CERVICAL LENGTH 01/12/2023 4:57 PM EDT documented in this encounter Results * US OB CERVICAL LENGTH (01/12/2023 4:57 PM EDT) Anatomical Region Laterality Modality Other 01/12/2023 4:57 PM EDT Narrative 01/12/2023 4:57 [place] [address] Ultrasound Report Signed Patient: ANAND HERRERA MR#: [id number] : 2000 Acct:[id number] Age/Sex: 22 / F ADM Date: 01/12/23 Loc: US Attending Dr: Marco A Greene D.O. Ordering Physician: Marco A Greene D.O. Date of Service: 01/12/23 Procedure(s): US OB cervical length Accession Number(s): [id number] cc: Marco A Greene D.O. The [place] [id number] Patient Name: ANAND HERRERA MRN: [id number] date: 2000 Sex: F Assigned Patient Location: US Current Patient Location: US Accession/Order Number: [id number] Exam Date: 01/12/2023 08:35 Report Date: 01/12/2023 16:57 At the request of: MARCO A GREENE Procedure: US OB cervical length EXAMINATION: US OB cervical length HISTORY: HISTORY OF LABOR COMPARISON: No relevant comparison available. FINDINGS: position: Cephalic presentation, longitudinal lie Cervix: Closed, 4.2 cm US/US OB cervical length IMPRESSION: Closed cervix measuring 4.2 cm in length Electronically authenticated by: JESS NICOLE Date: 01/12/2023 16:57 Dictated By: Jess Nicole M.D. Signed By: 01/12/231699 DD/ 56 TD/TT: Youth Care Professional: Procedure Note Radiology, Radiologist, MD - 01/16/2023 [place] [address] Ultrasound Report Signed Patient: ANAND HERRERA EMR#: [id number] : 2000Acct:[id number] Age/Sex: FADM Date: 01/12/23 Loc: US Attending Dr: Marco A Greene D.O. Ordering Physician: Marco A Greene D.O. Date of Service: 01/12/23 Procedure(s): US OB cervical length Accession Number(s): [id number] cc: Marco A Greene D.O. The [place] [address] Patient Name: ANAND HERRERA MRN: [facility]:[id number] date: 2000 Sex: F Assigned Patient Location: Current Patient Location: Accession/Order Number: [id number] Exam Date: 01/12/2023 08:35 Report Date: 01/12/2023 16:57 At the request of: MARCO A GREENE Procedure: US OB cervical length EXAMINATION: US OB cervical length HISTORY: HISTORY OF LABOR COMPARISON: No relevant comparison available. FINDINGS: position: Cephalic presentation, longitudinal lie Cervix: Closed, 4.2 cm US/US OB cervical length IMPRESSION: Closed cervix measuring 4.2 cm in length Electronically authenticated by: JESS NICOLE Date: 01/12/2023 16:57 Dictated By: Jess Nicole M.D. Signed By:01/12/231699 DD/ 56 TD/TT: Youth Care Professional: us Marco A Greene DO [facility] Final Result documented in this encounter Visit Diagnoses Not on filedocumented in this encounter Care Teams Crew Lead Relationship Specialty Start Date End Date Link, MD Baljit PCP - General Family Medicine 10/20/22 documented as of this encounter
--- OUTSIDE RECORDS SUMMARY | 2024-10-31 09:13 | XMS_ITS | Encounter Summary ---
Author Organization [facility] Address [address] [place] [address] Care Team Providers Care Client Technical Professional Name Role Phone Link, Baljit PRETTY Primary Care Provider [phone] Encounter Details Date Type Department Care Team (Late Contact Info) Description 03/16/2023 Abstract [facility] OB [address] [employer] [place] [address] Lisa Gleaosn LPN [address] [facility] [address] [place], [place] [address] Social History Tobacco Use Types Packs/Day Years [...] suspected to have Coronavirus/COVID-19? No / Unsure 03/16/2023 10:36 AM EST documented as of this encounter Plan of Treatment Upcoming Encounters Date Type Department Care Team (Late st Contact Info) Description 11/22/2024 11:40 AM EDT Routine [facility] OB [address] [employer] [place] [address] Marco A Greene, [address] [place] [address] 03/14/2025 11:00 AM EST Office Visit [facility] OB [address] [facility] [address] Marco A Greene DO [address] [facility] [address] [place] [place], [place] [address] documented as of this encounter Visit Diagnoses Not on filedocumented in this encounter Care Teams Client Technical Professional Relationship Specialty Start Date End Date Link, MD Baljit PCP - General Family Medicine 10/20/22 documented as of this encounter
--- OUTSIDE RECORDS SUMMARY | 2024-10-31 09:13 | XMS_ITS | Encounter Summary ---
Author Organization [facility] Address [address] [place] [address] Care Team Providers Care Case Specialist Name Role Phone Link, Baljit PRETTY Primary Care Provider [phone] Encounter Details Date Type Department Care Team (Late st Contact Info) Description 03/17/2024 Orders Only [facility] [address] [facility] [place] [address] Lisa Gleason LPN [address] [facility] [address] [place] [address] Social History Tobacco Use Types Packs/Day Years Used Date Smoking Tobacco: Never Smokeless Tobacco: Never Alcohol Use Standard Drinks/Week Comments Not Currently 0 (1 standard drink = 0.6 oz pur e alcohol) caffeine: rarely Comments Unknown Sex and Gender Information Value Date Recorded Sex Assigned at Female 10/19/2022 9:47 AM EDT Legal Sex Female 8:33 PM EDT Gender Identity Female 10/19/2022 9:47 AM EDT Sexual Orientation Not on file documented as of this encounter Plan of Treatment Upcoming Encounters Date Type Department Care Team (Late st Contact Info) Description 11/22/2024 11:40 AM EDT Routine [facility] [address] [facility] [place] [address] Marco A Greene DO [address] [facility] [address] [place] [address] 03/14/2025 11:00 AM EST Office Visit [facility] OB [address] [place] [address] [place] [address] Marco A Greene DO [address] [facility] [place] [address] documented as of this encounter Procedures Procedure Name Priority Date/Time Associated Diagnosis Comments PAP SMEAR Routine 03/08/2024 12:00 AM EST documented in this encounter Results * Pap Smear (03/08/2024 12:00 AM EST) Swab Cervical swab / Unknown Jc Nurse [facility] Ob LAB CYTOLOGY ORDERABLES Final Result EXTERNAL LAB documented in this encounter Visit Diagnoses Not on filedocumented in this encounter Care Teams Case Specialist Relationship Specialty Start Date End Date Link, MD Baljit PCP - General Family Medicine 10/20/22 documented as of this encounter
--- OUTSIDE RECORDS SUMMARY | 2024-10-31 09:13 | XMS_ITS | Encounter Summary ---
Author Organization [facility] Address [address] [place] [address] Care Team Providers Care Emergency Detail Driver Name Role Phone Link, Baljit Gilbert DO Primary Care Provider [phone] Source Comments In the event this information is protected by the Federal Confidentiality of Alcohol and Drug AbusePatient Records regulations: The Federal rules restrict any use of the information to criminally investigate or prosecute any alcohol or drug abuse patient.[facility] Encounter Details Date Type Department Care Team (Late st Contact Info) Description 11/18/2021 Get Medical Advice Ophthalmology [address] [facility] [place] [address] Elmer Sheets, OD [address] [facility] [place] [address] Tobradex Gel Social History Tobacco Use Types Packs/Day Years [...] on filedocumented in this encounter Care Teams Emergency Detail Driver Relationship Specialty Start Date End Date Link, Baljit Gilbert DO [address] [place] [address] PCP - General Family Medicine 11/07/21 documented as of this encounter
--- OUTSIDE RECORDS SUMMARY | 2024-10-31 09:13 | XMS_ITS | Encounter Summary ---
Author Organization [facility] Address [address] [place] [address] Care Team Providers Care Dust Mill Operator Name Role Phone Link, Baljit PRETTY Primary Care Provider [phone] Encounter Details Date Type Department Care Team (Late st Contact Info) Description 03/13/2023 Clinisync Result Encounter [facility] External Department Unsolicited Silas Greene, DO [address], [facility]11 Social History Tobacco Use Types Packs/Day [...] AM EDT Routine [facility] [place] [address] [place] [id number] Silas Greene DO [address], [facility]11 03/14/2025 11:00 AM EST Office Visit [facility] [address] [place] [address] [place] [id number] Silas Greene, [address] [place] [address] [place] [address] documented as of this encounter Procedures Procedure Name Priority Date/Time Associated Diagnosis Comments US OB BPP W NON-STRESS 03/13/2023 8:47 AM EST documented in this encounter Results * US OB BPP W NON-STRESS (03/13/2023 8:47 AM EST) Anatomical Region Laterality Modality Other 03/13/2023 8:47 AM EST Narrative 03/13/2023 8:47 [place] [address] Ultrasound Report Signed Patient: ANAND HERRERA MR#: [id number] : 2000 Acct:[id number] Age/Sex: 22 / F ADM Date: 03/13/23 Loc: [facility] 254-[address]: Silas Greene D.O. Ordering Physician: Silas Greene D.O. Date of Service: 03/13/23 Procedure(s): US OB BPP w non-stress Accession Number(s): [id number] cc: Silas Greene D.O.; Physician,Non-Staff M.DIrvin The [address] [address] Patient Name: ANAND HERRERA MRN: [id number] date: 2000 Sex: F Assigned Patient Location: [facility] Current Patient Location: [facility] Accession/Order Number: [id number] Exam Date: 03/13/2023 07:50 Report Date: 03/13/2023 08:47 At the request of: SILAS GREENE Procedure: US OB BPP w non-stress EXAMINATION: US OB BPP w non-stress HISTORY: Pre-eclampsia COMPARISON: No relevant comparison available. TECHNIQUE: Ultrasound biophysical profile was performed in the radiology department. FINDINGS: BREATHING MOVEMENTS: 0.0 GROSS BODY MOVEMENTS: 2.0 TONE: 2.0 QUALITATIVE AMNIOTIC FLUID VOLUME: 2.0 PRESENTATION: CEPHALIC HEART RATE: 156.1 bpm H.B./min AMNIOTIC FLUID VOLUME: 14.1 cm cm GESTATIONAL AGE: 36 weeks 2 days CONCLUSION: Total biophysical profile score: 6.0 Electronically authenticated by: JESS NICOLE Date: 03/13/2023 08:47 Dictated By: Jess Nicole M.D. Signed By: 03/13/2349 DD/ 6 TD/TT: Industrial Relations Officer: Procedure Note Radiology, Radiologist, - 03/13/2023 [place] [address] Ultrasound Report Signed Patient: ANAND HERRERA EMR#: [id number] : 2000Acct:[id number] Age/Sex: 22 / FADM Date: 03/13/23 Loc: [facility] 254-[address]: Silas Greene D.O. Ordering Physician: Silas Greene D.O. Date of Service: 03/13/23 Procedure(s): US OB BPP w non-stress Accession Number(s): [id number] cc: Silas Greene D.O.; Physician,Non-Staff [place] The [address] [address] Patient Name: ANAND HERRERA MRN: [id number] date: 2000 Sex: F Assigned Patient Location: [facility] Current Patient Location: [facility] Accession/Order Number: [id number] Exam Date: 03/13/2023 07:50 Report Date: 03/13/2023 08:47 At the request of: SILAS GREENE Procedure: US OB BPP w non-stress EXAMINATION: US OB BPP w non-stress HISTORY: Pre-eclampsia COMPARISON: No relevant comparison available. TECHNIQUE: Ultrasound biophysical profile was performed in the radiology department. FINDINGS: BREATHING MOVEMENTS: 0.0 GROSS BODY MOVEMENTS: 2.0 TONE: 2.0 QUALITATIVE AMNIOTIC FLUID VOLUME: 2.0 PRESENTATION: CEPHALIC HEART RATE: 156.1 bpm H.B./min AMNIOTIC FLUID VOLUME: 14.1 cm cm GESTATIONAL AGE: 36 weeks 2 days CONCLUSION: Total biophysical profile score: 6.0 Electronically authenticated by: JESS NICOLE Date: 03/13/2023 08:47 Dictated By: Jess Nicole M.D. Signed By:03/13/2349 DD/ TD/TT: Industrial Relations Officer: us Silas Jc DO [facility] Final Result documented in this encounter Visit Diagnoses Not on filedocumented in this encounter Care Teams Dust Mill Operator Relationship Specialty Start Date End Date Baljit Watts MD PCP - General Family Medicine 10/20/22 documented as of this encounter
--- OUTSIDE RECORDS SUMMARY | 2024-10-31 09:14 | XMS_ITS | Clinical Summary ---
Author Organization [facility] Address [address] [place] [address] Phone Care Team Providers Care Director Case Management Name Role Phone Unavailable Primary Care Provider Unavailabl e Allergies No known active allergies Medications [id number] c acid (PreNata) 29 mg iron- 1 mg tablet,chewable Chew 1 tablet once daily. Active Vyvanse 40 mg capsule Take 1 capsule (40 mg) by mouth once daily in the morning. Take before meals. Active Encounters Date Type Department Care Team Description 08/16/2024 11:00 AM EDT Clinical Support [facility] [address] [place] [address] Tiffany Isbell, [facility] Encounter for procreative genetic counseling; Family history of defect; Second trimester ([facility]) 08/16/2024 10:57 AM EDT - 08/16/2024 11:59 PM EDT Hospital Encounter [facility] [address] [place] [address] as incidental finding ([facility]) Discharge Disposition: Home 08/16/2024 Travel 08/15/2024 Travel from Last 3 Months Social History Tobacco Use Types Packs/Day Years Used Date Smoking Tobacco: Never Assessed Comments Unknown Sex and Gender Information Value Date Recorded Sex Assigned at Not on file Legal Sex Female 11:10 AM EDT Gender Identity Not on file Sexual Orientation Not on file Last Filed Vital Signs Vital Sign Reading Time Taken Comments Blood Pressure 138/76 08/16/2024 11:19 AM EDT Pulse - - Temperature - - Respiratory Rate - - Oxygen Saturation - - Inhaled Oxygen Concentration - - Weight 72.1 kg (159 lb) 08/16/2024 11:19 AM EDT Height - - Body Mass Index - - Plan of Treatment Health Maintenance Due Date Last Done Comments HIV Screening 2000 Lipid Panel 2000 Varicella Vaccines (2 of 2 - 2-dose childhood series) 03/01/2012 12/08/2011 Hepatitis C Screening 10/08/2017 Cervical Cancer Screening 10/08/2020 HPV/Cotest 10/08/2020 Pap Smear 10/08/2020 COVID-19 Vaccine ( - season) 2023 Influenza Vaccine (#1) 2024 04/27/2020 Yearly Adult Physical 03/09/2025 03/08/2024 DTaP/Tdap/Td Vaccines (8 - Td or Tdap) 04/28/2030 04/28/2020, 12/08/2011, 12/19/2004, Additional history exists Zoster Vaccines (1 of 2) 10/08/2049 12/08/2011 HIB Vaccines Completed 07/27/2002, 12/02/2000 Hepatitis B Vaccines Completed 07/27/2002, 12/02/2000, 2000 Pneumococcal Vaccine: Pediatrics and At-Risk Adult Patients Aged Out 01/18/2003, 12/02/2000 No longer eligibl e based on patient's age to complete this topic IPV Vaccines Completed 12/19/2004, 12/27, 07/27/2002, Additional history exists MMR Vaccines Completed 12/19/2004, 07/27/2002 Meningococcal Vaccine Aged Out 12/08/2011 No parag rashawn eligible based on patient's age to complete this topic HPV Vaccines Completed 06/21/2012, 01/25, 12/08/2011 Hepatitis A Vaccines Completed 06/21/2012, 12/08/19 12 Rotavirus Vaccines Aged Out No longer eligible based on patient's age to complete this topic Procedures Procedure Name Priority Date/Time Associated Diagnosis Comments US OB LIMITED 1+ FETUSES Routine 08/16/2024 12:11 PM EDT as incidental finding ([facility]) from Last 3 Months Results * US OB limited 1+ fetuses (08/16/2024 12:11 PM EDT) Anatomical Region Laterality Modality Body Ultrasound 08/16/2024 11:3 2 AM EDT 08/16/2024 11:32 AM EDT Narrative 08/16/2024 12:20 PM EDT Interpreted by: Doretha Marie Indication ======== Suspect Anomaly History ====== General History Smoking: No Height 168 cm Height (ft) 5 ft Height (in) 6 in Previous Outcomes 3 Para 2 Children born living ?37w 1 Pregnancies delivered at term (T) 1 Pregnancies delivered (P) 1 Living children (L) 2 Children born living <37w 1 Other: Previous Section x2 Maternal Assessment Height 168 cm Height (ft) 5 ft Height (in) 6 in Weight 70 kg Weight (lb) 155 lb Weight gain 0 kg Weight gain (lb) 0 lb BMI 25.02 kg/m Physical Exam Initial weight (lb) 155 lb ========= Prakash . Number of fetuses: 1 Dating ====== Prior assessment by: per outside ultrasound GA by prior assessment 14 w + 6 d OTF by prior assessment: 02/08/2025 Ultrasound examination on: 08/16/2024 GA by U/S based upon: AC, BPD, Femur, HC GA by U/S 14 w + 6 d OTF by U/S: 02/08/2025 Assigned: based on stated OTF (per outside ultrasound), selected on 08/16/2024 Assigned GA 14 w + 6 d Assigned OTF: 02/08/2025 Impression ========= REMOTE READ: Patient presents for an early anatomical evaluation in the setting of a prior complicated by amniotic band syndrome. also notable for iatrogenic delivery in the setting of preeclampsia The purpose of this early second trimester exam is to establish dating and to screen for abnormalities reliably detected at this gestational age. -Gestational age confirmed by biometry -Reassuring anatomy survey within the limitations of exam (early gestational age and patient acoustic properties) -The nuchal area does not appear thickened or cystic -Placental and AFV appear appropriate for gestational age -Unremarkable adnexa Due to the gestational age timing of today's exam, this exam should not be utilized for aneuploidy screening. cfDNA aneuploidy screening should be considered if aneuploidy assessment is desired by patient. In addition, today's exam does not replace the second trimester anatomic survey performed at 19+ weeks. Thank you for allowing us to participate in the care of your patient Follow-up ======== A repeat evaluation is recommended at 19 weeks. General Evaluation Cardiac activity present. FHR 150 bpm. movements: visualized. Presentation: cephalic Placenta: Placental site: anterior, No Previa Seen Umbilical cord: Cord vessels: 3 vessel cord. Insertion site: normal insertion Amniotic fluid: Amount of AF: Normal Amount Biometry Standard BPD 27.3 mm 14w 6d 39% Hadlock OFD 38.3 mm 62% INTERGROWTH-21st HC 107.8 mm 15w 1d 47% Hadlock Cerebellum tr 13.0 mm 15w 1d Conti AC 90.6 mm 15w 2d 68% Hadlock Femur 14.7 mm 14w 2d 24% Hadlock HC / AC 1.19 31% Hadlock EFW 108 g 14w 4d 35% Hadlock EFW (lb) 0 lb EFW (oz) 4 oz EFW by: Hadlock (LAC-YS-VL-FL) Head / Face / Neck Cephalic index 0.71 <1% Nicolaides Extremities / Bony Struc FL / BPD 0.54 14% Hadlock FL / HC 0.14 5% Hadlock FL / AC 0.16 1% Hadlock Other Structures FHR 150 bpm Anatomy Heart: Normal [place] and [place]. Stomach: Visible, with correct situs. Arms: Both Upper Extremities Seen. Legs: Both Lower Extremities Seen. The following structures appear normal: Cranium. Head size. Head shape. Brain. Right choroid plexus. Left choroid plexus. Midline falx. Thalami. Cerebellum. Face. Profile. Cardiac axis. 4-chamber view. 7-ezxcuz-cqpflrq view. Thorax. Diaphragm. Abdominal wall. Cord insertion. Large bowel. Right kidney. Left kidney. Bladder. The following structures could not be adequately visualized: Spine. sex: female Maternal Structures Uterus / Cervix Uterus: Normal Cervix: Visualized Cervix details: Normal Cervical length 36.3 mm Ovaries / Tubes / Adnexa Rt ovary: Visualized Rt ovary details: Normal Rt ovary D1 25.0 mm Rt ovary D2 20.9 mm Rt ovary D3 20.0 mm Rt ovary Vol 5.5 cm Lt ovary: Visualized Lt ovary details: Normal Lt ovary D1 29.4 mm Lt ovary D2 34.0 mm Lt ovary D3 15.1 mm Lt ovary Vol 7.9 cm Method ====== Transabdominal ultrasound examination. View: Suboptimal view: limited by early gestational age Procedure Note Doretha Marie MD - 08/16/2024 Interpreted by: Doretha Marie Indication ======== Suspect Anomaly History ====== General History Smoking:No Pmdima073 cm Height (ft)5 ft Height (in)6 in Previous Outcomes Gravida3 Para2 Children born living ?37w1 Pregnancies delivered at term (T)1 Pregnancies delivered (P)1 Living children (L)2 Children born living <37w1 Other:Previous Section x2 Maternal Assessment Avmfom151 cm Height (ft)5 ft Height (in)6 in Jcyxxp99 kg Weight (lb)155 lb Weight gain0 kg Weight gain (lb)0 lb BMI25.02 kg/m Physical Exam Initial weight (lb)155 lb ========= Prakash . Number of fetuses: 1 Dating ====== Prior assessment by:per outside ultrasound GA by prior iipghczyzn45 w + 6 d OTF by prior assessment:02/08/2025 Ultrasound examination on:08/16/2024 GA by U/S based upon:AC, BPD, Femur, HC GA by U/S14 w + 6 d OTF by U/S:02/08/2025 Assigned:based on stated OTF (per outside ultrasound), selected on08/16/2024 Assigned GA14 w + 6 d Assigned OTF:02/08/2025 Impression ========= REMOTE READ: Patient presents for an early anatomical evaluation in the setting of aprior complicated by amniotic band syndrome. alsonotable for iatrogenic delivery in the setting of preeclampsia The purpose of this early second trimester exam is to establish pregnancydating and to screen for abnormalities reliably detected at thisgestational age. -Gestational age confirmed by biometry -Reassuring anatomy survey within the limitations of exam (earlygestational age and patient acoustic properties) -The nuchal area does not appear thickened or cystic -Placental and AFV appear appropriate for gestational age -Unremarkable adnexa Due to the gestational age timing of today's exam, this exam should not beutilized for aneuploidy screening. cfDNA aneuploidy screening should beconsidered if aneuploidy assessment is desired by patient. In addition, today's examdoes not replace the second trimester anatomic survey performed at 19+weeks. Thank you for allowing us to participate in the care of your patient Follow-up ======== A repeat evaluation is recommended at 19 weeks. General Evaluation Cardiac activity present. FHR 150 bpm. movements: visualized.Presentation: cephalic Placenta: Placental site: anterior, No Previa Seen Umbilical cord: Cord vessels: 3 vessel cord. Insertion site: normalinsertion Amniotic fluid: Amount of AF: Normal Amount Biometry Standard BPD27.3 mm14w 6d 39% Hadlock OFD38.3 mm 62% INTERGROWTH-21st HC107.8 mm15w 1d 47% Hadlock Cerebellum tr13.0 mm15w 1d Conti AC90.6 mm15w 2d 68% Hadlock Femur14.7 mm14w 2d 24% Hadlock HC / AC1.19 31% Hadlock ADP368 g14w 4d 35% Hadlock EFW (lb)0 lb EFW (oz)4 oz EFW by:Hadlock (NTI-HU-AJ-FL) Head / Face / Neck Cephalic index0.71 <1% Nicolaides Extremities / Bony Struc FL / BPD0.54 14% Hadlock FL / HC0.14 5% Hadlock FL / AC0.16 1% Hadlock Other Structures IPZ527 bpm Anatomy Heart: Normal [place] and [place]. Stomach: Visible, with correct situs. Arms: Both Upper Extremities Seen. Legs: Both Lower Extremities Seen. The following structures appear normal: Cranium. Head size. Head shape. Brain. Right choroid plexus. Left choroid plexus. Midline falx. Thalami.Cerebellum. Face. Profile. Cardiac axis. 4-chamber view. 6-wxltmu-guhoomq view. Thorax. Diaphragm. Abdominal wall. Cord insertion. Large bowel. Right kidney. Left kidney. Bladder. The following structures could not be adequately visualized: Spine. sex: female Maternal Structures Uterus / Cervix Uterus:Normal Cervix:Visualized Cervix details:Normal Cervical anhtkq53.3 mm Ovaries / Tubes / Adnexa Rt ovary:Visualized Rt ovary details:Normal Rt ovary D125.0 mm Rt ovary D220.9 mm Rt ovary D320.0 mm Rt ovary Vol5.5 cm Lt ovary:Visualized Lt ovary details:Normal Lt ovary D129.4 mm Lt ovary D234.0 mm Lt ovary D315.1 mm Lt ovary Vol7.9 cm Method ====== Transabdominal ultrasound examination. View: Suboptimal view: limited byearly gestational age us Marco A Waqar Greene DO IMG OB US PROCEDURES Venessa l Result from Last 3 Months Insurance [facility]
--- OUTSIDE RECORDS SUMMARY | 2024-10-31 09:14 | XMS_ITS ---
Author Organization [facility] Source Produ ction (ClinicalSummary Clone) Address Unknown Care Team Providers Care Saw Straightener Name Role Phone Unavailable Primary Care Physician Unavailab le Results * [UNITY] ANEUPLOIDY NIPT Performed by: [employer] Component Value Range Date Fraction 9.1% 07/12/2024 05 :22 pm UTC Rh(D) NIPT RhD DETECTED 07/12/2024 05:2 2 pm UTC Sex Chromosome Aneuploidy NOT DETECTED 05:22 pm UTC Monosomy X LOW RISK <1 in 10,000 2024 05:22 pm UTC Trisomy 13 LOW RISK <1 in 10,000 2024 05:22 pm UTC Trisomy 18 LOW RISK <1 in 10,000 2024 05:22 pm UTC Trisomy 21 LOW RISK <1 in 10,000 2024 05:22 pm UTC Sex FEMALE 07/12/2024 05:2 2 pm UTC Gestation OLIVA 07/13/19 05:22 pm UTC For detailed report, see PDF See PDF 07/12/2024 05:22 pm UTC 07/12/2024 05:2 2 pm UTC Social History Observation Value Start Date End Date
--- OUTSIDE RECORDS SUMMARY | 2024-10-31 09:14 | XMS_ITS | Clinical Summary ---
Author Organization [facility] Address [address] [place] [address] Care Team Providers Care Commercial Pest Control Representative Name Role Phone Unavailable Primary Care Provider Unavailabl e Allergies No known active allergies Medications PreNata 29-1 MG CHEW Take 1 tablet by mouth daily Active ferrous sulfate (IRON 325) 325 (65 Fe) MG tablet Take 1 tablet by mouth 2 times daily (with meals) 30 tablet 3 04/28/2020 Active ibuprofen (ADVIL;MOTRIN) 600 MG tablet Take 1 tablet by mouth every 6 hours 120 tablet 3 04/28/2020 Active NIFEdipine (ADALAT CC) 30 MG extended release tablet Take 1 tablet by mouth daily 30 tablet 3 04/29/2020 Active Vit-Fe Fumarate-FA ( VITAMIN) 27-1 MG TABS tablet Take 1 tablet by mouth daily 30 tablet 04/28/2020 Active Active Problems Problem Noted Date Diagnosed Date Acute on chronic blood loss anemia 04/27/2020 Resolved Problems Problem Noted Date Diagnosed Date Resolved Date Threatened labor, antepartum 04/25/2020 04/28/2020 Pre-eclampsia in third trimester 04/28/2020 Immunizations Immunization Administration Dates Next Due Influenza, FLUARIX, FLULAVAL , FLUZONE (age 6 mo+) and AFLURIA, (age 3 y+), Quadv PF, 0.5mL 04/27/2020 TDaP, ADACEL (age 10y-64y), BOOSTRIX (age 10y+), IM, 0.5mL 04/28/2020 Social History Tobacco Use Types Packs/Day Years Used Date Smoking Tobacco: Never Smokeless Tobacco: Never Tobacco Cessation:Counseling Given: No Alcohol Use Standard Drinks/Week Comments Not Currently 0 (1 standard drink = 0.6 oz pur e alcohol) Comments No Sex and Gender Information Value Date Recorded Sex Assigned at Not on file Legal Sex Female 1:10 PM EST Gender Identity Not on file Sexual Orientation Not on file Last Filed Vital Signs Vital Sign Reading Time Taken Comments Blood Pressure 121/68 04/28/2020 7:51 AM EST Pulse 97 04/28/2020 7:51 AM EST Temperature 36.6 C (97.8 F) 04/28/2020 7:51 AM EST Respiratory Rate 18 04/28/2020 7:51 AM EST Oxygen Saturation 97% 04/28/2020 7:51 AM EST Inhaled Oxygen Concentration - - Weight 63.5 kg (140 lb) 04/25/2020 1:40 PM EST Height 165.1 cm (5' 5 ) 04/25/2020 1:40 PM EST Body Mass Index 23.3 04/25/2020 1:40 PM EST Plan of Treatment Not on file Advance Directives * Full Code (Latest Code Status on File) Date Activated Date Inactivated Comments 04/26/2020 4:22 AM 04/28/2020 3:58 PM * Full Code Date Activated Date Inactivated Comments 04/26/2020 1:27 AM 04/26/2020 4:21 AM * Full Code Date Activated Date Inactivated Comments 04/25/2020 3:48 PM 04/26/2020 1:27 AM
--- OUTSIDE RECORDS SUMMARY | 2024-10-31 09:14 | XMS_ITS | Encounter Summary ---
Author Organization [facility] Address [address] [place] [address] Care Team Providers Care Men'S Locker Room Attendant Name Role Phone Link, Baljit PRETTY Primary Care Provider [phone] Encounter Details Date Type Department Care Team (Late st Contact Info) Description 10/25/2024 Bamboo flowsheet [facility] OB [address] [place] [address] Simona Currie PA [address] [place] [address] Dr [place], [place] [address] Social History Tobacco Use Types Packs/Day Years [...] AM EDT Routine [facility] OB [address] [facility] [place] [address] Marco A Greene, DO [address] [place] [address] Dr Franchesca [address]offe[address], [facility] 03/14/2025 11:00 AM EST Office Visit [facility] OB [address] [place] [address] Marco A Greene, [address] [facility] [place] [address] documented as of this encounter Visit Diagnoses Not on filedocumented in this encounter Care Teams Men'S Locker Room Attendant Relationship Specialty Start Date End Date Baljit Watts MD PCP - General Family Medicine 10/20/22 documented as of this encounter
--- OUTSIDE RECORDS SUMMARY | 2024-10-31 09:14 | XMS_ITS | Clinical Summary ---
Author Organization [facility] Address [address] [place] [address] Care Team Providers Care Golf Course Ranger Name Role Phone Link, Baljit PRETTY Primary Care Provider [phone] Allergies No known active allergies Medications Vyvanse 40 MG capsule Take 40 mg by mouth in the morning. 03/18/20 23 Active MV-Min-Fe Fum-FA-DHA ( 1 PO) Take 1 each by mouth Daily Active Ferrous Sulfate (IRON PO) Take 1 tablet by mouth in the morning. Active Progesterone 200 MG suppositoryIndi cations:History of miscarriage Insert 200 mg into the vagina at bedtime Insert suppository vaginally every night at bedtime until 36 weeks gestation 30 suppository 5 09/28/19 25 025 terconazole (Terazol 7) 0.4 % vaginal creamIndication s:Yeast infection Insert 1 applicator into the vagina at bedtime for 7 days 45 g 09/30/19 25 025 Active Problems Estimated Date of Delivery Comme nts Yes 02/08/2025 Based on last me nstrual period of 05/04/2024 No known active problems Encounters Date Type Department Care Team Description 10/25/2024 2:30 PM EDT Routine [facility] B[facility] OB [address] [place] [phone] Simona Currie PA Second trimester ([facility]); 24 weeks gestation of ([facility]); HSV infection; H/O pre-eclampsia in prior , currently ([facility]); Diabetes mellitus screening; Encounter for anatomic survey ([facility]) 10/25/2024 Bamboo flowsheet [facility] [address] [place] [address] Simona Currie PA 09/29/[address] [facility] [address] [place] [address] Marco A Greene, DO 09/29/2024 Abstract [facility] [address] [place] [address] Marco A Greene, 09/27/2024 2:30 PM EDT Routine [facility] [address] [place] [address] Marco A Greene, Second trimester ([facility]); 20 weeks gestation of ([facility]); Exposure to STD; History of miscarriage 09/27/2024 External Result Encounter [facility] External Department Unsolicited Marco A Greene, DO 09/27/2024 Bamboo flowsheet [facility] [address] [place] [address] Marco A Greene, DO 08/29/2024 11:10 AM EDT Routine [facility] [address] [place] [phone] Marco A Greene, DO History of miscarriage (Primary Dx); Second trimester ([facility]); 16 weeks gestation of ([facility]); STD exposure; Vaginal discharge 08/29/2024 Bamboo flowsheet [facility] [address] [place] [address] Marco A Greene, DO 08/18/[address] [facility] [address] [place] [address] Piedad Dewitt LPN 08/16/2024 Clinisync Result Encounter [facility] External Department Unsolicited Marco A Greene, DO 08/16/[address] Abstract [facility] [address] [place] [address] Marco A Greene DO 08/01/2024 1:20 PM EDT Routine [facility] BCP OB [facility] [place] [place] [address] Marco A Greene DO 12 weeks gestation of ([facility]); First trimester ([facility]); Amniotic band syndrome 08/01/2024 Bamboo flowsheet [facility] BCP OB [facility] [place] [address] Marco A Greene DO from Last 3 Months Family History Medical History Relation Name Comments Asthma Daughter dairy allergy Daughter No Known Problems Father Cancer Maternal Grandfather Cancer Maternal Grandmother Cancer Mother Relation Name Status Comments Brother 1 Alive Brother 2 Alive Brother 3 Alive Daughter Alive Father Alive Maternal Grandfather Maternal Grandmother Mother Alive Sister 1 Alive Sister 2 Alive Sister 3 Alive Sister 4 Alive Sister 5 Alive Social History Tobacco Use Types Packs/Day Years [...] AM EDT Sexual Orientation Not on file Last Filed Vital Signs Vital Sign Reading Time Taken Comments Blood Pressure 110/62 10/25/2024 2:39 PM EDT Pulse - - Temperature - - Respiratory Rate - - Oxygen Saturation - - Inhaled Oxygen Concentration - - Weight 79.4 kg (175 lb) 10/25/2024 2:39 PM EDT Height 167.6 cm (5' 6 ) 10/26/2023 1:10 PM EDT Body Mass Index 28.25 10/26/2023 1:10 PM EDT Plan of Treatment Upcoming Encounters Date Type Department Care Team (Late st Contact Info) Description 11/22/2024 11:40 AM EDT Routine [facility] B[facility] OB [address] [place] [phone] Marco A Greene, DO [address] [place] [address] 03/14/2025 11:00 AM EST Office Visit [facility] OB [address] [place] [phone] Marco A Greene, DO [address] [place] [address] Procedures Procedure Name Priority Date/Time Associated Diagnosis Comments POCT URINALYSIS DIPSTICK Routine 10/25/2024 2:39 PM EDT Second trimester ([facility]) POCT URINALYSIS DIPSTICK Routine 09/27/2024 2:51 PM EDT Second trimester ([facility]) RECURRENT VAGINITIS (HTRX) Routine 09/27/2024 2:41 AM EDT US OB LIMITED 1+ FETUSES 08/16/2024 10:57 AM EDT POCT URINALYSIS DIPSTICK Routine 08/01/2024 1:24 PM EDT 12 weeks gestation of ([facility]) First trimester ([facility]) from Last 3 Months Results * POCT urinalysis dipstick manually resulted (10/25/2024 2:39 PM EDT) Only the most recent of3 resultswithin the time period is included. Color, UA Yellow Clarity, UA Clear Glucose, UA Negative Negative - 2000(110) ++++ mg/dL Bilirubin, UA Negative Negative - 4(70) +++ mg/dL Ketones, UA Negative Negative - 160(16) ++++ mg/dL Spec Grav, UA 1.020 1 - 1.03 Blood, UA Negative Negative - 50 Gabriel/mcL pH, UA 6.5 5 - 9 Protein, UA Negative Negative - 1999(20) ++++ mg/dL Urobilinogen, UA 0.2 0.2 - 12 mg/dL Leukocytes, UA Negative Negative - 500+++ Sebastián/mcL Nitrite, UA Negative Negative - Positive Urine 10/25/2024 2:39 PM EDT Simona ROSS POINT OF CARE TEST ENTER/EDIT OR DERABLES Final Result * (ABNORMAL) RECURRENT VAGINITIS (HTRX) (09/27/2024 2:41 AM EDT) [facility] ATOPOBIUM VAGINAE 0.000 19.961 - 24.689 ppm 09/29/2024 7:23 AM EDT [facility] ATOPOBIUM VAGINAE Not Detected 19.961 - 24.689 ppm 09/29/2024 7:23 AM EDT [facility] BVAB 2,3 (BACTERIAL VAGINOSIS ASSOCIATED BACTERIA 2, 3); MOBILUNCUS SPP 0.000 19.961 - 24.689 ppm 09/29/2024 7:23 AM EDT [facility] BVAB 2,3 (BACTERIAL VAGINOSIS ASSOCIATED BACTERIA 2, 3); MOBILUNCUS SPP Not Detected 19.961 - 24.689 ppm 09/29/2024 7:23 AM EDT [facility] EBONIE ALBICANS, PARAPSILOSIS, TROPICALIS 27.336(A) 19.961 - 30.770 ppm 09/29/2024 7:23 AM EDT [facility] EBONIE ALBICANS, PARAPSILOSIS, TROPICALIS Detected(A) 19.961 - 30.770 ppm 09/29/2024 7:23 AM EDT [facility] EBONIE GLABRATA 0.000 23.000 - 32.138 ppm 09/29/2024 7:23 AM EDT [facility] EBONIE GLABRATA Not Detected 23.000 - 32.138 ppm 09/29/2024 7:23 AM EDT [facility] EBONIE KRUSEI 0.000 23.000 - 32.271 ppm 09/29/2024 7:23 AM EDT [facility] EBONIE KRUSEI Not Detected 23.000 - 32.271 ppm 09/29/2024 7:23 AM EDT [facility] CHLAMYDIA TRACHOMATIS 0.000 23.000 - 31.467 ppm 09/29/2024 7:23 AM EDT [facility] CHLAMYDIA TRACHOMATIS Not Detected 23.000 - 31.467 ppm 09/29/2024 7:23 AM EDT [facility] GARDNERELLA VAGINALIS 0.000 19.961 - 24.689 ppm 09/29/2024 7:23 AM EDT [facility] GARDNERELLA VAGINALIS Not Detected 19.961 - 24.689 ppm 09/29/2024 7:23 AM EDT [facility] MEGASPHAERA (TYPES 1, 2) 0.000 19.961 - 24.689 ppm 09/29/2024 7:23 AM EDT [facility] MEGASPHAERA (TYPES 1, 2) Not Detected 19.961 - 24.689 ppm 09/29/2024 7:23 AM EDT [facility] NEISSERIA GONORRHOEAE 0.000 23.000 - 32.117 ppm 09/29/2024 7:23 AM EDT [facility] NEISSERIA GONORRHOEAE Not Detected 23.000 - 32.117 ppm 09/29/2024 7:23 AM EDT [facility] TRICHOMONAS VAGINALIS 0.000 23.000 - 32.119 ppm 09/29/2024 7:23 AM EDT [facility] TRICHOMONAS VAGINALIS Not Detected 23.000 - 32.119 ppm 09/29/2024 7:23 AM EDT [facility] MYCOPLASMA GENITALIUM 0.000 19.961 - 24.689 ppm 09/29/2024 7:23 AM EDT [facility] MYCOPLASMA GENITALIUM Not Detected 19.961 - 24.689 ppm 09/29/2024 7:23 AM EDT [facility] Tissue 09/27/2024 2:41 AM EDT 09/29/2024 2:12 AM EDT us Marco A Greene DO LAB BLOOD ORDERABLES Final Resul t [facility] [place] [address] * US OB limited 1+ fetuses (08/16/2024 10:57 AM EDT) Anatomical Region Laterality Modality Body Ultrasound 08/16/2024 10:5 7 AM EDT Narrative 08/16/2024 12:20 PM EDT Source Facility: [facility] Interpreted by: Doretha Marie Indication ======== Suspect [...] Weight gain (lb) 0 lb BMI 25.02 kg/m??? Physical Exam Initial weight (lb) 155 lb [...] EFW (oz) 4 oz EFW by: Hadlock (IFN-RL-EE-FL) Head / Face / Neck Cephalic index 0.71 <1% Nicolaides Extremities / Bony Struc FL / BPD 0.54 14% Hadlock FL / HC 0.14 5% Hadlock FL / AC 0.16 1% Hadlock Other Structures FHR 150 bpm Anatomy Heart: Normal [place] and Situs. Stomach: Visible, with correct situs. Arms: Both Upper Extremities Seen. Legs: Both Lower Extremities Seen. The following structures appear normal: Cranium. Head size. Head shape. Brain. Right choroid plexus. Left choroid plexus. Midline falx. Thalami. Cerebellum. Face. Profile. Cardiac axis. 4-chamber view. 7-swfsqt-zifcbrl view. Thorax. Diaphragm. Abdominal wall. Cord insertion. [...] D3 20.0 mm Rt ovary Vol 5.5 cm??? Lt ovary: Visualized Lt ovary details: Normal Lt ovary D1 29.4 mm Lt ovary D2 34.0 mm Lt ovary D3 15.1 mm Lt ovary Vol 7.9 cm??? Method ====== Transabdominal ultrasound examination. View: Suboptimal view: limited by early gestational age Procedure Note Radiology, Radiologist, MD - 08/16/2024 Source Facility: [facility] Interpreted by: Doretha Marie Indication ======== Suspect [...] Weight gain (lb) 0 lb BMI 25.02 kg/m??? Physical Exam Initial weight (lb) 155 lb [...] OTF (per outside ultrasound), selected on08/16/2024 Assigned GA 14 w + 6 d [...] EFW (oz) 4 oz EFW by: Hadlock (GJO-VS-AA-FL) Head / Face / Neck Cephalic index 0.71 <1% Nicolaides Extremities / Bony Struc FL / BPD 0.54 14% Hadlock FL / HC 0.14 5% Hadlock FL / AC 0.16 1% Hadlock Other Structures FHR 150 bpm Anatomy Heart: Normal [place] and Situs. Stomach: Visible, with correct situs. Arms: Both Upper Extremities Seen. Legs: Both Lower Extremities Seen. The following structures appear normal: Cranium. Head size. Head shape. Brain. Right choroid plexus. Left choroid plexus. Midline falx. Thalami.Cerebellum. Face. Profile. Cardiac axis. 4-chamber view. 3-frbiwy-szzvkux view. Thorax. Diaphragm. Abdominal wall. Cord insertion. [...] D3 20.0 mm Rt ovary Vol 5.5 cm??? Lt ovary: Visualized Lt ovary details: Normal Lt ovary D1 29.4 mm Lt ovary D2 34.0 mm Lt ovary D3 15.1 mm Lt ovary Vol 7.9 cm??? Method ====== Transabdominal ultrasound examination. View: Suboptimal view: limited byearly gestational age us Marco A OLSEN OB US PROCEDURES Final Resul t from Last 3 Months Insurance [employer] Care Teams Golf Course Ranger Relationship Specialty Start Date End Date Link, MD Baljit PCP - General Family Medicine 10/20/22
--- NOTE | 2024-10-31 09:17 | US_ITS ---
The [address] [address] Patient Name: ANAND PERALES MRN: [id number] date: 2000 Sex: F Assigned Patient Location: Current Patient Location: US Accession/Order Number: [id number] Exam Date: 10/31/2024 09:53 Report Date: 10/31/2024 09:54 At the request of: LATANYA GUNN Procedure: US OB incomplete anatomy ULTRASOUND OB INCOMPLETE ANATOMY CLINICAL DATA: Incomplete spine evaluation COMPARISON: None There is a single live intrauterine gestation in cephalic presentation. There is cardiac and somatic activity with heart rate of 140 bpm. There is an anterior placenta. Amniotic fluid volume is subjectively normal. The spine was surveyed by the field producer and no abnormalities were reported. US/US OB incomplete anatomy IMPRESSION: UNREMARKABLE SPINE ASSESSMENT. Impression dictated by: Hillary Barth M.D. 10/31/2024 9:54 AM Dictation Location: [place] [address] Electronically authenticated by: [id number] Y Date: 10/31/2024 09:54
[2024-10-31 10:56] LABS: Glucose 1 Hour 126 mg/dL (<130)
[2024-10-31 11:02] LABS: Hematocrit 32.3 % (36.0-48.0); Hemoglobin 10.7 g/dL (12.0-16.0); Mean Corpuscular HGB Conc 33.1 g/dL (29.9-35.2); Mean Corpuscular Hemoglobin 31.1 pg (26.7-34.0); Mean Corpuscular Volume 93.9 fL (81.0-99.0); Platelet Count 263 10^3/uL (150-450); Red Blood Count 3.44 10^6/uL (4.20-5.40); White Blood Count 8.5 10^3/uL (4.0-11.0)
[2024-10-31 11:03] LABS: Immature Granulocytes Abs Auto 0.03 10^3/uL (0.00-0.03); Immature Granulocytes Pct Auto 0.4 % (0.0-0.5); Lymphocytes Absolute Auto 1.1 10^3/uL (1.2-3.8)
== END 2024-10-31 09:11 | disposition home or self-care (01) ==
LOC: US 09:11
PROVIDERS: Visit Provider Physician Assistant
DX: Z36.89 Encounter for other specified antenatal screening (principal)
CPT/HCPCS: 36415; 76815; 82950; 85025

== ENCOUNTER 2024-12-26 08:56 | Outpatient (OUT) | payer OTHER, SELFPAY ==
--- OUTSIDE RECORDS SUMMARY | 2024-12-12 11:00 | XMS_ITS | Encounter Summary ---
Author Organization [facility] Address [address] [place] [address] Care Team Providers Care Wood Tile Installer Name Role Phone Link, Baljit PRETTY Primary Care Provider [phone] Encounter Details Date Type Department Care Team (Latest Contact Info) Description 12/12/2024 11:00 AM EDT Ancillary Procedure [facility] Erlinda BARRERA [address] [place] [address] Third trimester ([facility]); 31 weeks gestation of ([facility]); Screening, , for anatomic survey ([facility]) Social History Tobacco Use Types Packs/Day Years [...] Care Team (Late st Contact Info) Description 01/04/2025 2:00 PM EDT Routine [facility] Erlinda [address]ZGYN [address] [place] [address] Marco A Greene, [address] [place] [address] 03/14/2025 11:00 AM EST Office Visit [facility] Erlinda OBGYN [address] [place] [address] Marco A Greene, [address] [place] [address] documented as of this encounter Procedures Procedure Name Priority Date/Time Associated Diagnosis Comments US OB 14+ WEEKS ANATOMY SCAN Routine 12/12/2024 11:50 AM EDT Third trimester ([facility]) 31 weeks gestation of ([facility]) Screening, , for anatomic survey ([facility]) documented in this encounter Results * US OB 14+ weeks anatomy scan (12/12/2024 11:50 AM EDT) Anatomical Region Laterality Modality Body Ultrasound 12/15/2024 8:05 AM EDT Narrative 12/15/2024 8:05 AM EDT EXAM: US OB 14+ WEEKS ANATOMY SCAN HISTORY: anatomy. COMPARISON: Ob ultrasound 07/01/2024. TECHNIQUE: Two-dimensional transabdominal grayscale ultrasound imaging of the pelvis was performed. FINDINGS: Gestation: Single Presentation: Cephalic Cardiac Activity: 127 beats per minute Placental Location: Anterior with no sonographic abnormalities identified. Distance from Placental Tip to Cervix: 8.9 cm Cervical Length: 4.7 cm Amniotic Fluid: Appears adequate MEASUREMENTS: BPD: 8.4 cm EGA: 33 weeks 5 days HC: 30.5 cm EGA: 33 weeks 6 days AC: 27.5 cm EGA: 31 weeks 4 days FL: 6.0 cm EGA: 31 weeks 2 days HC/AC Ratio: 1.11 The gestational age by today's ultrasound is 32 weeks 4 days (+/- 16 days gestation). Estimated Weight: 1865 grams, +/- 280 grams ( 4 lb 2 oz). Weight Percentile for gestational age: 45 % ANATOMY C-Spine: Unremarkable T-Spine: Unremarkable L-Spine: Unremarkable Sacrum: Unremarkable Four Chamber Heart: Unremarkable LVOT: Unremarkable RVOT: Unremarkable Stomach: Unremarkable Kidneys: Unremarkable Bladder: Unremarkable Diaphragm: Unremarkable Cord insertion: Unremarkable Cord vessels: Three Lateral Ventricles: Unremarkable Cerebellum: Unremarkable Cisterna Magna: Unremarkable Posterior Fossa: Unremarkable Right Femur: Unremarkable Left Femur: Unremarkable Right Tib/Fib: Unremarkable Left Tib/Fib: Unremarkable Right Rad/Ulnar: Unremarkable Left Rad/Ulnar: Unremarkable Right Humerus: Unremarkable Left Humerus: Unremarkable Nose/Lips: Unremarkable Profile: Unremarkable Orbits: Unremarkable IMPRESSION: 1. Single, live intrauterine gestation 31 weeks, 5 days by LMP. Today's ultrasound measurements correlate with a gestational age of 32 weeks 4 days. Estimated weight is 1865 grams, +/- 280 grams ( 4 lb 2 oz) which correlates to 45 %. OTF by today's ultrasound is 02/02/2025. 2. Unremarkable ultrasound of the anatomy. Interpreted by: Electronically signed by ZAC MARTINEZ II, MD, PHD at 15-Dec-2024 08:04:22 AM [facility] Procedure Note Zac Martinez MD - 12/15/2024 EXAM: US OB 14+ WEEKS ANATOMY SCAN HISTORY: anatomy. COMPARISON: Ob ultrasound 07/01/2024. TECHNIQUE: Two-dimensional transabdominal grayscale ultrasound imaging ofthe pelvis was performed. FINDINGS: Gestation: Single Presentation: Cephalic Cardiac Activity: 127 beats per minute Placental Location: Anterior with no sonographic abnormalitiesidentified. Distance from Placental Tip to Cervix: 8.9 cm Cervical Length: 4.7 cm Amniotic Fluid: Appears adequate MEASUREMENTS: BPD: 8.4 cm EGA: 33 weeks 5 days HC: 30.5 cm EGA: 33 weeks 6 days AC: 27.5 cm EGA: 31 weeks 4 days FL: 6.0 cm EGA: 31 weeks 2 days HC/AC Ratio: 1.11 The gestational age by today's ultrasound is 32 weeks 4 days (+/- 16 daysgestation). Estimated Weight: 1865 grams, +/- 280 grams ( 4 lb 2 oz). Weight Percentile for gestational age: 45 % ANATOMY C-Spine: Unremarkable T-Spine: Unremarkable L-Spine: Unremarkable Sacrum: Unremarkable Four Chamber Heart: Unremarkable LVOT: Unremarkable RVOT: Unremarkable Stomach: Unremarkable Kidneys: Unremarkable Bladder: Unremarkable Diaphragm: Unremarkable Cord insertion: Unremarkable Cord vessels: Three Lateral Ventricles: Unremarkable Cerebellum: Unremarkable Cisterna Magna: Unremarkable Posterior Fossa: Unremarkable Right Femur: Unremarkable Left Femur: Unremarkable Right Tib/Fib: Unremarkable Left Tib/Fib: Unremarkable Right Rad/Ulnar: Unremarkable Left Rad/Ulnar: Unremarkable Right Humerus: Unremarkable Left Humerus: Unremarkable Nose/Lips: Unremarkable Profile: Unremarkable Orbits: Unremarkable IMPRESSION: 1. Single, live intrauterine gestation 31 weeks, 5 days by LMP. Today'sultrasound measurements correlate with a gestational age of 32 weeks 4days. Estimated weight is 1865 grams, +/- 280 grams ( 4 lb 2 oz)which correlates to 45 %. OTF by today's ultrasound is 02/02/2025. 2. Unremarkable ultrasound of the anatomy. Interpreted by: Electronically signed by ZAC MARTINEZ II, MD, PHD 08:04:22 AM [facility] us Marco A Jc DO IMG OB US PROCEDURES Final Resul t documented in this encounter Visit Diagnoses Diagnosis Third trimester ([facility]) state, incidental 31 weeks gestation of ([facility]) Screening, , for anatomic survey ([facility]) Encounter for anatomic survey documented in this encounter Care Teams Wood Tile Installer Relationship Specialty Start Date End Date Link, MD Baljit PCP - General Family Medicine 10/20/22 documented as of this encounter
--- OUTSIDE RECORDS SUMMARY | 2024-12-22 14:00 | XMS_ITS | Encounter Summary ---
Author Organization [facility] Address [address] [place] [address] Care Team Providers Care Elevator Runner Name Role Phone Link, Baljit PRETTY Primary Care Provider [phone] Reason for Visit * Reason Comments Routine Visit Encounter Details Date Type Department Care Team (Late st Contact Info) Description 12/22/2024 2:00 PM EDT Routine LON BARRERA [address] [facility] [place] [address] Simona Currie PA [address] [facility] [address] [place], [facility]11 Third trimester ([facility]); 33 weeks gestation of ([facility]); Amniotic band syndrome; History of miscarriage Social [...] Problems Past Medical History: Diagnosis Date Pre-eclampsia ([facility]) HISTORY PAST MEDICAL HISTORY SOCIAL HISTORY Past Medical History: Diagnosis Date Pre-eclampsia ([facility]) Social History Tobacco Use Smoking status: Never [...] ASSESSMENT & PLAN ICD-10-CM 1. Third trimester ([facility]) Z34.93 2. 33 weeks gestation of ([facility]) Z3A.33 3. Amniotic band syndrome Q79.8 US [...] Info) Description 01/04/2025 2:00 PM EDT Routine LON BARRERA [address] [place] [phone] Marco A Greene DO [address] [place] [address] 03/14/2025 11:00 AM EST Office Visit LON BARRERA [address] [place] [address] Marco A Greene DO [address] [place] [address] Scheduled Orders Name Type Priority Associated Diagnoses Orde r Schedule US biophysical profile w non stress test Imaging Routine Amniotic band syndrome Expected: 12/22/2024 (Approximate), Expires: 06/24/2025 documented as of this encounter Visit Diagnoses Diagnosis Third trimester ([facility]) state, incidental 33 weeks gestation of ([facility]) Amniotic band syndrome Other problem associated with amniotic cavity and membranes, unspecified as to episode of care History of miscarriage Personal history of other genital system and obstetric disorders documented in this encounter Care Teams Elevator Runner Relationship Specialty Start Date End Date Link, MD Baljit PCP - General Family Medicine 10/20/22 documented as of this encounter
--- OUTSIDE RECORDS SUMMARY | 2024-12-26 08:58 | XMS_ITS | Encounter Summary ---
Author Organization [facility] Address [address] [place] [address] Care Team Providers Care Gta Name Role Phone Link, Baljit PRETTY Primary Care Provider [phone] Encounter Details Date Type Department Care Team (Late st Contact Info) Description 01/12/2023 Clinisync Result Encounter [facility] External Department Unsolicited Marco A Greene DO [address], [facility]11 Social History Tobacco Use Types Packs/Day [...] 01/04/2025 2:00 PM EDT Routine [facility] [address] [place] [address] Marco A Greene DO [address] [place] [address] 03/14/2025 11:00 AM EST Office Visit [facility] [address] [facility] [place] [phone] Marco A Greene DO [address] [facility] [place] [address] documented as of this encounter Procedures Procedure Name Priority Date/Time Associated Diagnosis Comments US OB CERVICAL LENGTH 01/12/2023 4:57 PM EDT documented in this encounter Results * US OB CERVICAL LENGTH (01/12/2023 4:57 PM EDT) Anatomical Region Laterality Modality Other 01/12/2023 4:57 PM EDT Narrative 01/12/2023 4:57 [place] [address] Ultrasound Report Signed Patient: ANAND HERRERA MR#: [id number] : 2000 Acct:[id number] Age/Sex: 22 / F ADM Date: 01/12/23 Loc: US Attending Dr: Marco A Greene D.O. Ordering Physician: Marco A Greene D.O. Date of Service: 01/12/23 Procedure(s): US OB cervical length Accession Number(s): [id number] cc: Marco A Greene D.O. [place] [id number] Patient Name: ANAND HERRERA MRN: [id number] date: 2000 Sex: F Assigned Patient Location: US Current Patient Location: US Accession/Order Number: [id number] Exam Date: 01/12/2023 08:35 Report Date: 01/12/2023 [...] M.D. Signed By: 01/12/231699 DD/ 56 TD/TT: Piccoloist: Procedure Note Radiology, Radiologist, MD - 01/16/2023 [place] [address] Ultrasound Report Signed Patient: ANAND HERRERA EMR#: [id number] : 2000Acct:[id number] Age/Sex: 22 FADM Date: 01/12/23 Loc: US Attending Dr: Marco A Greene D.O. Ordering Physician: Marco A Greene D.O. Date of Service: 01/12/23 Procedure(s): US OB cervical length Accession Number(s): [id number] cc: Marco A Greene D.O. [place] [address] Patient Name: ANAND HERRERA MRN: [id number] date: 2000 Sex: F Assigned Patient Location: Current Patient Location: Accession/Order Number: [id number] Exam Date: 01/12/2023 08:35 Report Date: 01/12/2023 [...] Nicole M.D. Signed By:01/12/231699 DD/ 56 TD/TT: Piccoloist: us Marco A Greene DO [facility] Final Result documented in this encounter Visit Diagnoses Not on filedocumented in this encounter Care Teams Gta Relationship Specialty Start Date End Date Link, MD Baljit PCP - General Family Medicine 10/20/22 documented as of this encounter
--- OUTSIDE RECORDS SUMMARY | 2024-12-26 08:58 | XMS_ITS | Encounter Summary ---
Author Organization [facility] Address [address] [place] [address] Care Team Providers Care Curing Oven Attendant Name Role Phone Link, Baljit PRETTY Primary Care Provider [phone] Encounter Details Date Type Department Care Team (Late Contact Info) Description 11/10/2022 Clinisync Result Encounter NOMS External Department Unsolicited Marco A Greene DO [address] [place], [facility]11 Social History Tobacco Use Types Packs/Day [...] PM EDT Routine [facility] [address] [place] [phone] Marco A Greene DO [address] [place] [address] 03/14/2025 11:00 AM EST Office Visit [facility] [address] [facility] [place] [address] Marco A Greene DO [address] [facility] [place] [address] documented as of this encounter Procedures Procedure [...] EFW (oz) 10 oz EFW by: Hadlock ([id number]) Extended Banding Machine Operator 7.6 mm CM 4.4 mm 35% Nicolaides [...] Normal LVOT view: Normal 3-vessel view: Normal 1-ppvpmj-jhzvhgg view: Normal Heart / Thorax Situs: situs [...] EFW (oz) 10 oz EFW by: Hadlock ([id number]) Extended Banding Machine Operator 7.6 mm CM 4.4 mm 35% Nicolaides [...] Normal LVOT view: Normal 3-vessel view: Normal 0-otungx-ohbnmwq view: Normal Heart / Thorax Situs: situs [...] by: KELL JOHNSON MD us Marco A Jc DO [facility] Final Result documented in this encounter Visit Diagnoses Not on filedocumented in this encounter Care Teams Curing Oven Attendant Relationship Specialty Start Date End Date Link, MD Baljit PCP - General Family Medicine 10/20/22 documented as of this encounter
--- OUTSIDE RECORDS SUMMARY | 2024-12-26 08:58 | XMS_ITS | Patient Health Record ---
Author Organization [facility] Address [address] [place] [address] Care Team Providers Care A And P Technician Name Role Phone Tanika Rosales Primary Care Provider Reason For Referral No Information Encounters Encounter Location Date Provider Diagnosis [facility] [address] [place] [address] 09/28/2024 Tanika Rosales Dental caries on pit [...] status (ICD-10 - Z98.818) Plan Of Treatment No Information Insurance Providers Payer Name Payer Address Payer Phone Subscriber Number Group Number Insured Name Patient Relationship to Insured Coverage Start Date Coverage End Date Dental Fink [employer] [address] [place] [address] [id number] ANAND PERALES Self - patient is the insured Dental Wrap [facility] Fink [address] [place] [address] [phone] [id number] ANAND PERALES Self - patient is the insured 5
--- OUTSIDE RECORDS SUMMARY | 2024-12-26 08:58 | XMS_ITS | Encounter Summary ---
Author Organization [facility] Address [address] [place] [address] Care Team Providers Care Wave Soldering Machine Operator Name Role Phone Link, Baljit PRETTY Primary Care Provider [phone] Encounter Details Date Type Department Care Team (Late Contact Info) Description 11/14/2022 Abstract [facility] [address] [place] [address] Simona Currie PA [facility] [address] [place], [place] [address] Social History Tobacco Use Types Packs/Day Years [...] Encounters Date Type Department Care Team (Late Contact Info) Description 01/04/2025 2:00 PM EDT Routine NOMEmelia BARRERA [address] [facility] [place] [address] Marco A Greene DO [address] [facility] [place] [address] 03/14/2025 11:00 AM EST Office Visit [facility] Erlinda BARRERA [address] [facility] [place] [phone] Marco A Greene, [address] [facility] [address] [place] [place], [place] [address] documented as of this encounter Visit Diagnoses Not on filedocumented in this encounter Care Teams Wave Soldering Machine Operator Relationship Specialty Start Date End Date Link, MD Baljit PCP - General Family Medicine 10/20/22 documented as of this encounter
--- OUTSIDE RECORDS SUMMARY | 2024-12-26 08:58 | XMS_ITS | Encounter Summary ---
Author Organization [facility] Address [address] [place] [address] Care Team Providers Care Digestion Operator Name Role Phone Link, Baljit PRETTY Primary Care Provider [phone] Encounter Details Date Type Department Care Team (Late st Contact Info) Description 09/26/2022 Clinisync Result Encounter NOMS External Department Unsolicited Marco A Greene, DO [address] [place], [facility]11 Social History Tobacco Use Types Packs/Day [...] 01/04/2025 2:00 PM EDT Routine NOMEmelia BARRERA [facility] [place] [address] Marco A Greene DO [address] [place], [facility]11 03/14/2025 11:00 AM EST Office Visit LON BARRERA [address] [place] [address] Marco A Greene DO [address] [place] [address] documented as of this encounter Procedures Procedure [...] gestational sac with a live fetus - [place] rump length is consistent with given OTF [...] Extended Nasal bone: present Anatomy Heart: Normal [place] and Situs. Stomach: Visible, with correct situs. [...] JESS FELDMAN MD Procedure Note Radiology, Radiologist, - 09/26/2022 Indication ======== Nuchal Translucency Screening, [...] gestational sac with a live fetus - [place] rump length is consistent with given OTF [...] Extended Nasal bone: present Anatomy Heart: Normal [place] and Situs. Stomach: Visible, with correct situs. [...] Sufficient Electronically signed by: JESS FELDMAN MD us Marco A Greene DO [facility] Final Result documented in this encounter Visit Diagnoses Not on filedocumented in this encounter Care Teams Digestion Operator Relationship Specialty Start Date End Date Link, MD Baljit PCP - General Family Medicine 10/20/22 documented as of this encounter
--- OUTSIDE RECORDS SUMMARY | 2024-12-26 08:59 | XMS_ITS | Encounter Summary ---
Author Organization [facility] Address [address] [place] [address] Care Team Providers Care Filterer Name Role Phone Link, Baljit Gilbert DO Primary Care Provider [phone] Source Comments In the event this information is protected by the Federal Confidentiality of Alcohol and Drug AbusePatient Records regulations: The Federal rules restrict any use of the information to criminally investigate or prosecute any alcohol or drug abuse patient.[facility] Encounter Details Date Type Department Care Team (Late st Contact Info) Description 11/20/2021 Get Medical Advice Ophthalmology [address] [place] [address] Elmer Sheets, OD [address] [facility] [place] [address] Eye drops Social History Tobacco [...] on filedocumented in this encounter Care Teams Filterer Relationship Specialty Start Date End Date Link, Baljit Gilbert DO [address] [place] [address] PCP - General Family Medicine 11/07/21 documented as of this encounter
--- OUTSIDE RECORDS SUMMARY | 2024-12-26 08:59 | XMS_ITS | Encounter Summary ---
Author Organization [facility] Address [address] [place] [address] Care Team Providers Care Business Team Leader Name Role Phone Link, Baljit Gilbert DO Primary Care Provider [phone] Source Comments In the event this information is protected by the Federal Confidentiality of Alcohol and Drug AbusePatient Records regulations: The Federal rules restrict any use of the information to criminally investigate or prosecute any alcohol or drug abuse patient.[facility] Encounter Details Date Type Department Care Team (Late st Contact Info) Description 11/25/2021 Get Medical Advice Ophthalmology [address] [place] [address] Elmer Sheets, OD [address] [place] [address] Eye drops Social History Tobacco [...] on filedocumented in this encounter Care Teams Business Team Leader Relationship Specialty Start Date End Date Link, Baljit Gilbert DO [address] [place] [address] PCP - General Family Medicine 11/07/21 documented as of this encounter
--- OUTSIDE RECORDS SUMMARY | 2024-12-26 08:59 | XMS_ITS | CCD ---
Author Organization [facility] Care Team Providers Care Supply Chain Generalist Name Role Phone Unavailable Primary Care Provider [...] Unavailable JC ., DR ROSEN Attending Unavailable BLACKEYKELL Attending Unavailable Jc, Dr. Marco A Zavaleta Referring Unavail able UNKNOWN, PCP Primary Care Unavailable UNKNOWN, PCP Primary Care Unavailable Jc, Dr. Marco A Zavaleta Referring Unavail able Dr. Jess Feldman Attending Unav ailable Baljit Watts MD Primary Care Provider Kathy Mccall Primary Care Physician [phone] Amos Espinoza Attending Unavailable Baljit Watts MD Primary Care Provider Unavailable Primary Care Provider Unavailjoão e MARCO A GREENE Attending Unavailable MARCO A GREENE Attending Unavailable MARCO A GREENE Attending Unavailable MARCO A GREENE Attending Unavailable MARCO A GREENE Attending Unavailable SIMONA CURRIE Attending Unavailable MARCO A GREENE Attending Unavailable MARCO A GREENE Attending Unavailable SIMONA CURRIE Attending Unavailable Medications Current Medications Medication Drug [...] day(s), # 20 tab(s), Refills(s) 0, Pharmacy: [facility]/pharmacy #[id number], 164, cm, 10/14/22 12:30:00 EDT, Height/Length Dosing, 66, kg, 10/14/22 12:30:00 EDT, Weight Dosing Start Date: 10/14/22 Stop Date: 10/24/22 Status: Ordered Start: 10-31-20[address] [facility] every twelve hours amoxicillin 500 mg Cap 500 mg = 1 cap(s), Oral, q12hr, # 20 cap(s), Refills(s) 0, Pharmacy: [facility]/pharmacy #[id number], 165, cm, 10/31/21 [...] mL/hr, C ONTINUOUS, Starting 04/25/20 at 1615 cephalexin 500 mg oral capsule (2 sources) Cephalosporin Antibacterial Start: 11-22-2024 End: 11-29-2024 take 1 capsule by mouth in the morning cephalexin (Keflex) 500 MG capsule Indications: Mastitis Take 1 capsule (500 mg) by mouth in the morning and 1 capsule (500 mg) before bedtime. Do all this for 7 days. 14 capsule 11/22/2024 11/29/2024 Active 1 ml diphenhydrAMINE hydrochloride 50 mg/ml cartridge [...] break. ferrous sulfate 325 mg oral tablet (17 sources) Start: 04-28-2020 take 1 tablet by [...] 0800 Start if Hgb less than 10. take 1 tablet by tiara th in the morning Ferrous Sulfate (IRON PO) Take 1 tablet by mouth in the morning. Active HYDROmorphone (DILAUDID) injection 0.25 mg (1 source) [...] 0421, lisdexamfetamine dimesylate 40 mg oral capsule (20 sources) Central Nervous System Stimulant Start: 01-31-2023 [...] tablet 3 04/29/2020 Active Start: 04-26-2020 NIFEdipine (MO OCARDIA XL) extended release tablet 30 mg [...] Date: 01/31/23 Status: Ordered polyethylene glycol 3350 41627 mg powder for oral solution (1 source) [...] Refill(s) 0 Start Date: 01/31/23 Status: Ordered MV-Min-Fe Fum-FA-DHA ( 1 PO) (20 sources) MV-Min- Fe Fum-FA-DHA ( 1 PO) Take 1 each by mouth Daily Active End: 03-08-2024 MV-Min-Fe Fum-FA-DH A ( 1 PO) Take by mouth. 03/08/2024 Discontinued Vit-Fe Fumarate-FA ( VITAMIN) 27-1 MG TABS tablet (1 source) Start: 04-28-2020 take 1 tablet by mouth once daily Vit-Fe Fumarate-FA ( VITAMIN) 27-1 MG TABS tablet Take 1 tablet by mouth daily 30 tablet 0 04/28/2020 Active cwu93-kzky-ovhch acid (PreNata) 29 mg iron- 1 mg tablet,chewable (1 source) kkv71-iogd-jrziu acid (PreNata) 29 mg iron- 1 mg tablet,chewable Chew 1 tablet once daily. Active vitamin 27-1 MG tablet 1 tablet (1 source) Start: 04-26-2020 take 1 tablet by mouth once daily 1 tablet, Oral, DAILY, First dose on Vilma 04/26/20 at 0900 Begin when normal bowel activity resumes. Progesterone 200 MG suppository (18 sources) Start: 12-22-2024 End: 01-21-2025 Progesterone 200 MG suppository Indications: History of miscarriage Insert 200 mg into the vagina at bedtime Insert suppository vaginally every night at bedtime until 12 weeks gestation 30 suppository 2 12/22/2024 01/21/2025 Active Start: 11-10-2024 End: 12-10-2024 Progesterone 200 MG supposit ory Indications: History of miscarriage Insert 200 mg into the vagina at bedtime Insert suppository vaginally every night at bedtime until 12 weeks gestation 30 suppository 11/10/2024 12/10/2024 Active Start: 09-27-2024 End: 10-27-2024 Progesterone 200 MG supposit ory Indications: History of miscarriage Insert 200 mg into the vagina at bedtime Insert suppository vaginally every night at bedtime until 36 weeks gestation 30 suppository 5 09/27/2024 10/27/2024 Active Start: 08-29-2024 End: 09-27-2024 Progesterone 200 MG supposit ory Indications: History of miscarriage Insert 200 mg into the vagina at bedtime Insert suppository vaginally every night at bedtime until 36 weeks gestation 30 suppository 5 08/29/2024 09/27/2024 Discontinued (Reorder) Start: 08-29-2024 End: 09-28-2024 Progesterone 200 MG supposit ory Indications: History of miscarriage Insert 200 mg into the vagina at bedtime Insert suppository vaginally every night at bedtime until 36 weeks gestation 30 suppository 5 08/29/2024 09/28/2024 Active progesterone 200 mg vaginal suppository (2 sources) [...] for 10 day(s), 20 tab(s), Refill(s) 0, [facility]/pharmacy #[id number], 165, cm, 10/31/21 12:19:00 EDT, Height/Length Dosing, [...] day(s), # 15 tab(s), Refills(s) 0, Pharmacy: [facility]/pharmacy #[id number], 165, cm, 11/01/21 [...] in third trimester] Resolved: 04-28-2020 04-28-2020 Episodic Immunizations and screening for infectious disease (4 sources) Exposure to sexually transmissible disorder; Translations: [Contact with and (suspected) exposure to infections with a predominantly sexual mode of transmission] 08-29-2024 Episodic Inflammation; infection of eye (except that caused by tuberculosis or sexually transmitteddisease) (3 sources) Viral conjunctivitis; Translations: [Viral conjunctivitis, unspecified] Onset: 11-14-2021 Episodic Menstrual disorders (4 sources) Irregular menstruation, unspecified; Translations: [IRREGULAR MENSTRUATION UNSPECIFIED] Onset: 09-04-2022 Chronic Nonmalignant breast conditions (2 sources) Inflammatory disorder of breast; Translations: [Mastitis without abscess] 11-22-2024 Episodic Open wounds of extremities (1 source) Laceration of right foot; Translations: [Laceration without foreign body, right foot, initial encounter] Onset: 10-14-2022 Episodic Other complications of (1 source) Supervision of other high risk pregnancies, first trimester; Translations: [Supervision of other high risk pregnancies, first trimester] Onset: 09-26-2022 Episodic Other complications of (2 sources) History of pre-eclampsia; Translations: [Supervision of with other poor reproductive or obstetric history, unspecified trimester] 10-25-2024 Episodic Other complications of (2 sources) size does not accord with dates; Translations: [Uterine size-date discrepancy, second trimester] 11-22-2024 Episodic Other congenital anomalies (6 sources) Amniotic adhesion; 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] 08-02-2024 Chronic Other ear and sense organ disorders (1 source) Otalgia, right ear; Translations: [Otalgia of right ear] Onset: 04-19-2024 Episodic Other female genital disorders (1 source) Abnormal uterine bleeding; Translations: [Abnormal uterine and vaginal bleeding, unspecified] Onset: 12-19-2021 Chronic Other female genital disorders (2 sources) Vaginal discharge; Translations: [Other specified noninflammatory disorders of vagina] 08-29-2024 Episodic Other and delivery including normal (17 sources) Encounter for supervision of other normal , first trimester; Translations: [Encounter for supervision of normal , unspecified, first trimester] Onset: 08-20-2022 08-01-2024 Episodic Other screening for suspected conditions (not mental disorders or infectious disease) (8 sources) Encounter for suspected anomaly ruled out; Translations: [Encounter for screening for nuchal translucency] Onset: 09-26-2022 10-25-2024 Episodic Other upper respiratory infections (1 source) Acute upper respiratory infection; Translations: [Acute upper respiratory infection, unspecified] Onset: 04-19-2024 Episodic Residual codes; unclassified (2 sources) Gestation period, 12 weeks; Translations: [12 weeks gestation of ] 08-01-2024 Episodic Residual codes; unclassified (2 sources) Gestation period, 16 weeks; Translations: [16 weeks gestation of ] 08-29-2024 Episodic Residual codes; unclassified (6 sources) H/O: miscarriage; Translations: [Personal history of other complications of , childbirth and the puerperium] 08-29-2024 Episodic Residual codes; unclassified (2 sources) Gestation period, 20 weeks; Translations: [20 weeks gestation of ] 09-27-2024 Episodic Residual codes; unclassified (2 sources) Gestation period, 24 weeks; Translations: [24 weeks gestation of ] 10-25-2024 Episodic Residual codes; unclassified (2 sources) Gestation period, 28 weeks; Translations: [28 weeks gestation of ] 11-22-2024 Episodic Residual codes; unclassified (2 sources) Gestation period, 31 weeks; Translations: [31 weeks gestation of ] 12-08-2024 Episodic Residual codes; unclassified (2 sources) Gestation period, 33 weeks; Translations: [33 weeks gestation of ] 12-22-2024 Episodic Superficial injury; contusion (2 sources) Contusion of foot; Translations: [Contusion of left foot, initial encounter] Onset: 09-18-2021 Episodic Viral infection (2 sources) Herpes simplex; Translations: [Herpesviral infection, unspecified] 10-25-2024 Episodic Past or Other Problems Problem Classification Problem Date Documented Da te Episodic/Chronic Unclassified (8 sources) Onset: 10-06-2019 Resolved: 04-27-2023 09-07-2020 NEGATED: Highlighted row has been ruled out!Unclassified (20 sources) No known active problems 10-26-2023 Results Test Name Value Interpretation Reference Range Facility US OB 14+ WEEKS ANATOMY SCAN on 12-12-2024 US OB 14+ WEEKS ANATOMY SCAN EXAM: US OB 14+ WEEKS ANATOMY SCAN [...] II, MD, PHD at 15-Dec-2024 08:04:22 AM [facility] Normal Not Available Comment on above: Order Comment: US OB ANATOMY SINGLE W US OB CERVICAL LENGTH Estimated Date of Delivery: 02/08/25 Gestational Age as of 12/08/2024: 31w1d US OB FOLLOW UP TRANSABDOMIN AL APPROACHon 12-08-2024 US OB FOLLOW UP TRANSABDOMINAL APPROACH FINDINGS: A single, live intrauterine is present with normal cardiac rate of 130 beats per minute. Normal activity and amniotic fluid volume. Amniotic fluid index is 14.0 cm. Morphology is grossly normal. The placenta is anterior inferior aspect 9.0 cm from the closed cervical os, 4.7 cm length. The current sonographic age is 31 weeks and 6 days, based on the following measurements: BPD 8.3 cm ( 33 weeks, 2 days) Head Circumference 30.1cm (33 weeks, 3 days) Abdominal Circumference 28.1cm (32 weeks, 1days) Femur Length 5.9cm (30 weeks,6 days) Presentation transverse lie Placenta Anterior Weight (g) by Percentile 65.5% * These measurements result in an estimated date of delivery of February 03, 2025. The current estimated weight is 1876 +/- 281 grams ( 4 pound, 2 ounces). IMPRESSION: Single, live intrauterine , current sonographic age of 31 weeks and 6 days, with an estimated date of delivery of February 03, 2025. * Estimated Weight (g) by Percentile is based upon an accurate estimated age based on last menstrual period. t TRANSCRIBED BY: ELECTRONICALLY SIGNED BY: Jorge Salazar MD Normal Not Available Comment on above: Order Comment: US OB SCAN FOR GROWTH Estimated Date of Delivery: 02/08/25 Gestational Age as of 11/22/2024: 28w6d Urinalysis macro (dipstick) panel (U)on 11-22-2024 Bilirubin, UA Negative Negative - 4(70) +++ mg/dL [facility] Blood, UA Negative Negative - 50 Gabriel/mcL [facility] Clarity, UA Clear [facility] Color, UA Yellow [facility] Glucose, UA Negative Negative - 2000(110) ++++ mg/dL [facility] Interpretation and review of laboratory results Normal [facility] Ketones, UA Negative Negative - 160(16) ++++ mg/dL [facility] Leukocytes, UA Negative Negative - 500+++ Sebastián/mcL [facility] Nitrite, UA Negative Negative - Positive [facility] pH, UA 6.5 5 - 9 [facility] Protein, UA Negative Negative - 1999(20) ++++ mg/dL [facility] Spec Grav, UA 1.005 1 - 1.03 [facility] Urobilinogen, UA 1.0 0.2 - 12 mg/dL [facility] US OB INCOMPLETE ANATOMYon 0 10-31-2024 [place] [address] Ultrasound Report Signed Patient: ANAND HERRERA MR#: [id number] : 2000 Acct:[id number] Age/Sex: 24 / F ADM Date: 10/31/24 Loc: US Attending Dr: Simona Currie Ordering Physician: Simona Currie Date of Service: 10/31/24 Procedure(s): US OB incomplete anatomy Accession Number(s): [id number] cc: Simona Currie; Physician,Non-Staff M.DIrvin The [address] [address] Patient Name: ANAND HERRERA MRN: [facility]:[id number] date: 2000 Sex: F Assigned Patient Location: Current Patient Location: US Accession/Order Number: [id number] Exam Date: 10/31/2024 09:53 Report Date: 10/31/2024 09:54 At the request of: SIMONA CURRIE Procedure: US OB incomplete anatomy ULTRASOUND OB INCOMPLETE ANATOMY CLINICAL DATA: Incomplete spine evaluation COMPARISON: None There is a single live intrauterine gestation in cephalic presentation. There is cardiac and somatic activity with heart rate of 140 bpm. There is an anterior placenta. Amniotic fluid volume is subjectively normal. The spine was surveyed by the document image technician and no abnormalities were reported. US/US OB incomplete anatomy IMPRESSION: UNREMARKABLE SPINE ASSESSMENT. Impression dictated by: Hillary Barth M.D. 10/31/2024 9:54 AM Dictation Location: [place] [address] Electronically authenticated by: [id number] Y Date: 10/31/2024 09:54 Dictated By: Hillary Barth M.D. Signed By: 10/31/24 0957 DD/ 0954 TD/TT: Probate Clerk: [facility]EN Radiology, Radiologist, MD - 10/31/2024 The [place] [id number] Ultrasound Report Signed Patient: ANAND HERRERA MR#: [id number] : 2000 Acct:[id number] Age/Sex: 24 / F ADM Date: 10/31/24 Loc: US Attending Dr: Simona Currie Ordering Physician: Simona Currie Date of Service: 10/31/24 Procedure(s): US OB incomplete anatomy Accession Number(s): [id number] cc: Simona Currie; Physician,Non-Staff [place] [facility] [address] [address] Patient Name: ANAND HERRERA MRN: [facility]:[id number] date: 2000 Sex: F Assigned Patient Location: Current Patient Location: Accession/Order Number: [id number] Exam Date: 10/31/2024 09:53 Report Date: 10/31/2024 09:54 At the request of: SIMONA CURRIE Procedure: US OB incomplete anatomy ULTRASOUND OB INCOMPLETE ANATOMY CLINICAL DATA: Incomplete spine evaluation COMPARISON: None There is a single live intrauterine gestation in cephalic presentation. There is cardiac and somatic activity with heart rate of 140 bpm. There is an anterior placenta. Amniotic fluid volume is subjectively normal. The spine was surveyed by the document image technician and no abnormalities were reported. US/US OB incomplete anatomy IMPRESSION: UNREMARKABLE SPINE ASSESSMENT. Impression dictated by: Hillary Barth M.D. 10/31/2024 9:54 AM Dictation Location: [place] [address] Electronically authenticated by: [id number] Y Date: 10/31/2024 09:54 Dictated By: Hillary Barth M.D. Signed By: 10/31/24 0957 DD/ TD/TT: Probate Clerk: [facility] Radiology Study observation (narrative) [facility] US OB INCOMPLETE ANATOMYOrde red By: Radiologist Radiology on 10-31-2024 [facility] Work Phone: Urinalysis macro (dipstick) panel (U)on 10-25-2024 Bilirubin, UA Negative Negative - 4(70) +++ mg/dL [facility] Blood, UA Negative Negative - 50 Gabriel/mcL [facility] Clarity, UA Clear [facility] Color, UA Yellow [facility] Glucose, UA Negative Negative - 1999(110) ++++ mg/dL [facility] Interpretation and review of laboratory results Normal [facility] Ketones, UA Negative Negative - 160(16) ++++ mg/dL [facility] Leukocytes, UA Negative Negative - 500+++ Sebastián/mcL [facility] Nitrite, UA Negative Negative - Positive [facility] pH, UA 6.5 5 - 9 [facility] Protein, UA Negative Negative - 2000(20) ++++ mg/dL [facility] Spec Grav, UA 1.02 1 - 1.03 [facility] Urobilinogen, UA 0.2 0.2 - 12 mg/dL [facility] RECURRENT VAGINITIS (HTRX)on 09-29-2024 ATOPOBIUM VAGINAE 0 [facility] ATOPOBIUM VAGINAE Not detected [facility] BVAB 2,3 (BACTERIAL VAGINOSIS ASSOCIATED BACTERIA 2, 3); MOBILUNCUS SPP 0 [facility] BVAB 2,3 (BACTERIAL VAGINOSIS ASSOCIATED BACTERIA 2, 3); MOBILUNCUS SPP Not detected [facility] EBONIE ALBICANS, PARAPSILOSIS, TROPICALIS 27.336 Abnormal [facility] EBONIE ALBICANS, PARAPSILOSIS, TROPICALIS Detected Abnormal [facility] EBONIE GLABRATA 0 [facility] EBONIE GLABRATA Not detected [facility] EBONIE KRUSEI 0 [facility] EBONIE KRUSEI Not detected [facility] CHLAMYDIA TRACHOMATIS 0 [facility] CHLAMYDIA TRACHOMATIS Not detected [facility] GARDNERELLA VAGINALIS 0 [facility] GARDNERELLA VAGINALIS Not detected N [facility] Interpretation and review of laboratory results Abnormal [facility] MEGASPHAERA (TYPES 1, 2) 0 [facility] MEGASPHAERA (TYPES 1, 2) Not detected [facility] MYCOPLASMA GENITALIUM 0 [facility] MYCOPLASMA GENITALIUM Not detected N [facility] NEISSERIA GONORRHOEAE 0 [facility] NEISSERIA GONORRHOEAE Not detected N [facility] TRICHOMONAS VAGINALIS 0 [facility] TRICHOMONAS VAGINALIS Not detected N [facility] Urinalysis macro (dipstick) panel (U)on 09-27-2024 Bilirubin, UA Negative Negative - 4(70) +++ mg/dL [facility] Blood, UA Negative Negative - 50 Gabriel/mcL [facility] Clarity, UA Clear [facility] Color, UA Yellow [facility] Glucose, UA Negative Negative - 1999(110) ++++ mg/dL [facility] Interpretation and review of laboratory results Normal [facility] Ketones, UA Negative Negative - 160(16) ++++ mg/dL [facility] Leukocytes, UA Negative Negative - 500+++ Sebastián/mcL [facility] Nitrite, UA Negative Negative - Positive [facility] pH, UA 7 5 - 9 [facility] Protein, UA Negative Negative - 1999(20) ++++ mg/dL [facility] Spec Grav, UA 1.015 1 - 1.03 [facility] Urobilinogen, UA 0.2 0.2 - 12 mg/dL [facility] US for pregnancyon Interpreted by: Doretha Marie Indication ======== Suspect [...] EFW (oz) 4 oz EFW by: Hadlock ([id number]) Head / Face / Neck Cephalic index 0.71 <1% Nicolaides Extremities / Bony Struc FL / BPD 0.54 14% Hadlock FL / HC 0.14 5% Hadlock FL / AC 0.16 1% Hadlock Other Structures FHR 150 bpm Anatomy Heart: Normal Winfield and Situs. Stomach: Visible, with correct situs. Arms: Both Upper Extremities Seen. Legs: Both Lower Extremities Seen. The following structures appear normal: Cranium. Head size. Head shape. Brain. Right choroid plexus. Left choroid plexus. Midline falx. Thalami. Cerebellum. Face. Profile. Cardiac axis. 4-chamber view. 1-dkdlfe-upuiohl view. Thorax. Diaphragm. Abdominal wall. Cord insertion. [...] Suboptimal view: limited by early gestational age [facility] Doretha Marie MD - 08/16/2024 Interpreted by: Doretha Marie Indication ======== Suspect Anomaly History ====== General History Smoking:No Hunhxv264 cm Height (ft)5 ft Height (in)6 in Previous Outcomes Gravida3 Para2 Children born living ?37w1 Pregnancies delivered at term (T)1 Pregnancies delivered (P)1 Living children (L)2 Children born living <37w1 Other:Previous Section x2 Maternal Assessment Rreudf494 cm Height (ft)5 ft Height (in)6 in Scwbxa08 kg Weight (lb)155 lb Weight gain0 kg Weight gain (lb)0 lb BMI25.02 kg/m Physical Exam Initial weight (lb)155 lb ========= Prakash . Number of fetuses: 1 Dating ====== Prior assessment by:per outside ultrasound GA by prior dhbjmosaax21 w + 6 d OTF by prior assessment:02/08/2025 Ultrasound examination on:08/16/2024 GA by U/S based upon:AC, BPD, Femur, HC GA by U/S14 w + 6 d OTF by U/S:02/08/2025 Assigned:based on stated OTF (per outside ultrasound), selected on 08/16/2024 Assigned GA14 w + 6 d Assigned [...] 24% Hadlock HC / AC1.19 31% Hadlock DWD221 g14w 4d 35% Hadlock EFW (lb)0 lb EFW (oz)4 oz EFW by:Hadlock ([id number]) Head / Face / Neck Cephalic index0.71 <1% Nicolaides Extremities / Bony Struc FL / BPD0.54 14% Hadlock FL / HC0.14 5% Hadlock FL / AC0.16 1% Hadlock Other Structures XLA274 bpm Anatomy Heart: Normal Winfield and Situs. Stomach: Visible, with correct situs. Arms: Both Upper Extremities Seen. Legs: Both Lower Extremities Seen. The following structures appear normal: Cranium. Head size. Head shape. Brain. Right choroid plexus. Left choroid plexus. Midline falx. Thalami. Cerebellum. Face. Profile. Cardiac axis. 4-chamber view. 7-nlfzim-zrvxmyq view. Thorax. Diaphragm. Abdominal wall. Cord insertion. Large bowel. Right kidney. Left kidney. Bladder. The following structures could not be adequately visualized: Spine. sex: female Maternal Structures Uterus / Cervix Uterus:Normal Cervix:Visualized Cervix details:Normal Cervical elunvn69.3 mm Ovaries / Tubes / Adnexa Rt ovary:Visualized Rt ovary details:Normal Rt ovary D125.0 mm Rt ovary D220.9 mm Rt ovary D320.0 mm Rt ovary Vol5.5 cm Lt ovary:Visualized Lt ovary details:Normal Lt ovary D129.4 mm Lt ovary D234.0 mm Lt ovary D315.1 mm Lt ovary Vol7.9 cm Method ====== Transabdominal ultrasound examination. View: Suboptimal view: limited by early gestational age [facility] Work Phone: Source Facility: [facility] Interpreted by: Doretha Marie Indication ======== [...] EFW (oz) 4 oz EFW by: Hadlock ([id number]) Head / Face / Neck Cephalic index 0.71 <1% Nicolaides Extremities / Bony Struc FL / BPD 0.54 14% Hadlock FL / HC 0.14 5% Hadlock FL / AC 0.16 1% Hadlock Other Structures FHR 150 bpm Anatomy Heart: Normal Winfield and Situs. Stomach: Visible, with correct situs. Arms: Both Upper Extremities Seen. Legs: Both Lower Extremities Seen. The following structures appear normal: Cranium. Head size. Head shape. Brain. Right choroid plexus. Left choroid plexus. Midline falx. Thalami. Cerebellum. Face. Profile. Cardiac axis. 4-chamber view. 5-qdduvi-jnfdnys view. Thorax. Diaphragm. Abdominal wall. Cord insertion. [...] Suboptimal view: limited by early gestational age Radiology, Radiologist, MD - 08/16/2024 Source Facility: [facility] Interpreted by: Doretha Marie Indication ======== [...] EFW (oz) 4 oz EFW by: Hadlock ([id number]-FL) Head / Face / Neck Cephalic index 0.71 <1% Nicolaides Extremities / Bony Struc FL / BPD 0.54 14% Hadlock FL / HC 0.14 5% Hadlock FL / AC 0.16 1% Hadlock Other Structures FHR 150 bpm Anatomy Heart: Normal Winfield and Situs. Stomach: Visible, with correct situs. Arms: Both Upper Extremities Seen. Legs: Both Lower Extremities Seen. The following structures appear normal: Cranium. Head size. Head shape. Brain. Right choroid plexus. Left choroid plexus. Midline falx. Thalami. Cerebellum. Face. Profile. Cardiac axis. 4-chamber view. 0-xfsfwz-ssybqcy view. Thorax. Diaphragm. Abdominal wall. Cord insertion. [...] Suboptimal view: limited by early gestational age [facility] Radiology Study observation (narrative) [facility] Work Phone: Radiology Study observation (narrative) [facility] US for pregnancyOrdered By: Doretha Marie on 08-16-2024 [facility] Work Phone: US for pregnancyOrdered By: Radiologist Radiology on 08-16-2024 [facility] Work Phone: Urinalysis macro (dipstick) panel (U)on 08-01-2024 Bilirubin, UA Negative Negative - 4(70) +++ mg/dL [facility] Blood, UA Negative Negative - 50 Gabriel/mcL [facility] Clarity, UA Clear [facility] Color, UA Yellow [facility] Glucose, UA Negative Negative - 2000(110) ++++ mg/dL [facility] Interpretation and review of laboratory results Normal [facility] Ketones, UA Negative Negative - 160(16) ++++ mg/dL [facility] Leukocytes, UA Negative Negative - 500+++ Sebastián/mcL [facility] Nitrite, UA Negative Negative - Positive [facility] pH, UA 7 5 - 9 [facility] Protein, UA Negative Negative - 1999(20) ++++ mg/dL [facility] Spec Grav, UA 1.02 1 - 1.03 [facility] Urobilinogen, UA 0.2 0.2 - 12 mg/dL [facility] BOX TESTon 07-07-2024 BOX TEST SENT OUT [facility] BOX1 UNITY [facility] BOX2 07/07/24 [facility] CLINISYNC [facility] US OB TRANSVAGINALon 025 US OB TRANSVAGINAL [...] II, MD, PHD at 02-Jul-2024 09:14:34 AM [facility] Normal Not Available Comment on above: Order Comment: US OB TRANSVAGINAL No LMP recorded. ED Clinical Summaryon 2023 ED Clinical Summary ED Clinical Summary [place] [id number] ED Clinical Summary Person Information Name: ANAND HERRERA[place] Age: 23 Years : 2000 Sex: Female Language: Frisian PCP: Kathy Mccall DO Marital Status: Single Phone: [phone] Visit Id: Visit Reason: Ear pain; RIGHT [...] 01:34:08 04/19/2024 01:34:08 04/19/2024 01:34:08 [address] [facility] [facility] [facility] [phone] PHYS DOC NOTES: MEDICAL INFORMATION: Prescriptions Given: [...] Adult Follow up: With: Address: When: Kathy Montenegro, Chauncey , [address] [address] Business (1) In 3 days 04/22/2024 Comments: Return to the emergency room if your pain recurs or any new symptoms. DIAGNOSIS: 1:Ear pain, right; 2:Upper respiratory infection Normal [facility] ED Note-Physicianon 04-19-20 ED Note-Physician ED Note-Physician [...] and Complexity of Problems Differential Diagnosis: [] [facility] Data External documents reviewed: [] My EKG [...] home. She was instructed to take decongestion [id number]-[id number]. 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 Living situation: Home/Independent. Alcohol abuse in household: No. Substance abuse in household: No. Smoker in household: No., (more content not included)... Normal [facility] Comment on above: Result Comment: Elec tronically Signed By: Amos Espinoza M.D.\.br\Date and Time Signed: 04/19/24 03:09 EST ED Patient Summaryon 024 ED Patient Summary ED Patient Summary [address] [address] Patient Discharge Instructions Person Information Name: ANAND HERRERA Age: 23 Years Arrival Date: 04/19/2024 01:04:22 Discharge Diagnosis: 1:Ear pain, right; 2:Upper respiratory infection Primary Care Physician: Kathy Mccall DO Provider Information Primary Provider: Amos Espinoza M.D. Advanced Kindergarten Classroom Teacher:None The exam and treatment you received in the Emergency Department were for an urgent problem and are not intended as complete care. It is important that you follow up with a doctor, nurse practitioner, or physician???s service assistant for ongoing care. If your symptoms become worse or you do not improve as expected and you are unable to reach your usual health care provider, you should return to the Emergency Department. We are available 24 hours a day. NAAND HERRERA has been given the following list of patient education materials, prescriptions and follow-up instructions: Follow-up Instructions: With: Address: When: Kathy Mccall [address] [place] [address], [address] [address] Business (1) In 3 days 04/22/2024 Comments: [...] opioids can be used to help relieve flphnzui-hl-bqmuar pain and are often prescribed following a [...] to learn (more content not included)... Normal [facility] IGP,APTIMA HPV,AGE GDLNon AGE GDLN ACOG TESTING Note . [facility] Comment on above: TESTS RESULT FLAG UN ITS REF RANGE LAB Clinician Provided Cytology Information Source.............Cervix;Endocervix No. of containers..01 ThinPrep Vial Age Algo ACOG Magdalene... FLAG LEGEND: L-Low Normal,H-High Normal,LL-Alert Low,HH-Alert High <-Panic Low,>-Panic High,A-Abnormal,AA-Critical Abnormal Performed at: 01 =G [address] [facility] [place] [address] Clara Castro MD, IGP, RFX APTIMA HPV ASCU Note . [facility] Comment on above: TESTS RESULT FLAG U NITS REF RANGE LAB DIAGNOSIS: 02 NEGATIVE FOR INTRAEPITHELIAL LESION OR MALIGNANCY. Specimen adequacy: 02 Satisfactory for evaluation. Endocervical and/or squamous metaplastic cells (endocervical component) are present. Performed by: 02 Simona Platt, Etcher Apprentice Photoengraving ([facility]) . 02 Note: Note 02 The Pap smear is a screening test designed to aid in the detection of premalignant and malignant conditions of the uterine cervix. It is not a diagnostic procedure and should not be used as the sole means of detecting cervical cancer. Both false-positive and false-negative reports do occur. Test Methodology: Note 02 The [facility](R) Spouter was unable to read this specimen. Therefore a manual review was performed. FLAG LEGEND: L-Low Normal,H-High Normal,LL-Alert Low,HH-Alert High <-Panic Low,>-Panic High,A-Abnormal,AA-Critical Abnormal Performed at: [address] [facility] [address] [address] Clara Castro MD, . 02 The HPV DNA reflex criteria were not met with this specimen result therefore, no HPV testing was performed. The HPV DNA reflex criteria were not met with this specimen result therefore, no HPV testing was performed. Performed at: =G - [facility] [address] [id number] Electric Relay Tester: Clara Castro MD, Phone: [phone] Performed at: - [facility] [id number] Electric Relay Tester: Clara Castro MD, Phone: [phone] BRUSH-SPATULA CERVIX ENDOCERVIX [facility] OB Completed scan + Detailed Anatomyon [...] 16% 29.9 48% 278 31% Impression ========= Carleah Javier presents for a targeted anatomic survey. [...] EFW (oz) 10 oz EFW by: Hadlock ([id number]) Extended Radio Announcer 7.6 mm CM 4.4 mm 35% Nicolaides [...] Normal LVOT view: Normal 3-vessel view: Normal 6-vejkrq-cjcohch view: Normal Heart / Thorax Situs: situs [...] know sex (more content not included)... Normal [facility] OB NT (Nuchal Translucency)o n 09-26-2022 OB [...] gestational sac with a live fetus - [place] rump length is consistent with given OTF [...] Extended Nasal bone: present Anatomy Heart: Normal [place] and Situs. Stomach: Visible, with correct situs. [...] Electronically signed by: JESS FELDMAN MD Normal [facility] HEP B SURFACE ANTIGEN SCREEN on 09-05-2022 HBsAg Screen Negative Normal Negative [facility] Comment on above: Performed By: #### H BSANS #### [facility] [address] [address] [address] Stoney Rodriguez HEPATITIS C VIRUS AB W/ REFL EX QUANTon 09-05-2022 HCV AB Non-Reactive Normal Non Reactive [facility] Comment on above: Performed By: #### H CVPCRR #### [facility] [address] [address] [address] Stoney Rodriguez Interpretation: Comment Normal [facility] Comment on above: Result Comment: Not infected with HCV unless early or acute infection is suspected (which may be delayed in an immunocompromised individual), or other evidence exists to indicate HCV infection. Performed By: #### H CVPCRR #### [facility] [address] [place] [address] Dr. Stoney Rodriguez HIV 1 AND 2 WITH REFLEXon HIV Screen 4th Generation wRfx Non-Reactive Normal Non Reactive [facility] Comment on above: Result Comment: HIV Negative HIV-1/HIV-2 antibodies and HIV-1 p24 antigen were NOT detected. There is no laboratory evidence of HIV infection. Performed By: #### T NS #### [facility] [address] [place] [address] Dr. Stoney Rodriguez RPR QUANTon 09-05-2022 Rapid Plasma Reagin, Quant Non-Reactive Normal NonRea<1:1 [facility] Comment on above: Result Comment: Plea se Note: This test does not meet current guidelines for screening and diagnosis of syphilis. This test is intended for following treatment response in patients being treated for syphilis infection. To screen for syphilis infection, a reflex cascade that includes both RPR and a treponema-specific assay should be utilized, such as Treponema pallidum (Syphilis) Screening Merrick (620416) or Rapid Plasma Reagin (RPR) Test With Reflex to Quantitative RPR and Confirmatory Treponema pallidum Antibodies (200034). Performed By: #### R PRQ #### [facility] [address] [place] [address] Dr. Stoney Rodriguez RUBELLA AB IGGon 09-05-2022 Rubella Antibodies, IgG 11.40 index Normal Immune >0.99 [facility] Comment on above: Result Comment: Non- immune <0.90 Equivocal 0.90 - 0.99 Immune >0.99 Performed By: #### R UBIGG #### [facility] [address] [place] [address] Dr. Stoney Rodriguez BOX TEST SENT OUTon 09-05-19 23 SENT TO REF LAB 09/04/22 Normal [facility] Comment on above: Performed By: #### B OX #### [facility] [address] [place] [address] Dr. Stoney Rodriguez CBC AUTO DIFFon 09-04-2022 BASO # 0.0 103/ul Normal 0.0-0.1 [facility] Comment on above: Performed By: #### C BC #### [facility] [address] [place] [address] Dr. Stoney Rodriguez Basophils/100 WBC (Bld) 0.4 % Normal 0.2-2.0 [facility] Comment on above: Performed By: #### C BC #### [facility] [address] [place] [address] Dr. Stoney Rodriguez EO # 0.1 103/ul Normal 0.0-0.7 [facility] Comment on above: Performed By: #### C BC #### [facility] [address] [place] [address] Dr. Stoney Rodriguez Eosinophils/100 WBC (Bld) 0.7 % Critically low 0.9-7.0 [facility] Comment on above: Performed By: #### C BC #### [facility] [address] [place] [address] Dr. Stoney Rodriguez Erythrocyte distribution width (RBC) [Ratio] 14.5 % Normal 11.0-15.0 [facility] Comment on above: Performed By: #### C BC #### [facility] [address] [place] [address] Dr. Stoney Rodriguez Hematocrit (Bld) [Volume fraction] 36.7 % Normal 36.0-48.0 [facility] Comment on above: Performed By: #### C BC #### [facility] [address] [place] [address] Dr. Stoney Rodriguez Hemoglobin (Bld) [Mass/Vol] 11.9 g/dL Critically low 12.0-16.0 [facility] Comment on above: Performed By: #### C BC #### [facility] [address] [place] [address] Dr. Stoney Rodriguez IG # 0.03 10e3/ul Normal 0.00-0.03 [facility] Comment on above: Performed By: #### C BC #### [facility] [address] [place] [address] Dr. Stoney Rodriguez IG % 0.4 % Normal 0.0-0.5 [facility] Comment on above: Performed By: #### C BC #### [facility] [address] [place] [address] Dr. Stoney Rodriguez LYMPH # 2.0 103/ul Normal 1.2-3.8 [facility] Comment on above: Performed By: #### C BC #### [facility] [address] [place] [address] Dr. Stoney Rodriguez Lymphocytes/100 WBC (Bld) 23.3 % Normal 20.5-60.0 [facility] Comment on above: Performed By: #### C BC #### [facility] [address] [place] [address] Dr. Stoney Rodriguez MANUAL DIFF REQ NO Normal [facility] Comment on above: Performed By: #### C BC #### [facility] [address] [place] [address] Dr. Stoney Rodriguez MCH (RBC) [Entitic mass] 28.7 pg Normal 26.7-34.0 [facility] Comment on above: Performed By: #### C BC #### [facility] [address] [place] [address] Dr. Stoney Rodriguez MCHC (RBC) [Mass/Vol] 32.4 g/dL Normal 29.9-35.2 [facility] Comment on above: Performed By: #### C BC #### [facility] [address] [address] [address] Stoney Rodriguez MCV (RBC) [Entitic vol] 88.6 fL Normal 81.0-99.0 [facility] Comment on above: Performed By: #### C BC #### [facility] [address] [address] [address] Stoney Rodriguez MONO # 0.5 103/ul Normal 0.3-0.8 [facility] Comment on above: Performed By: #### C BC #### [facility] [address] [place] [address] Dr. Stoney Rodriguez Monocytes/100 WBC (Bld) 6.2 % Normal 1.7-12.0 [facility] Comment on above: Performed By: #### C BC #### [facility] [address] [place] [address] Dr. Stoney Rodriguez NEUT # 5.9 103/ul Normal 1.4-6.5 [facility] Comment on above: Performed By: #### C BC #### [facility] [address] [place] [address] Dr. Stoney Rodriguez Neutrophils/100 WBC (Bld) 69.0 % Normal 43.0-75.0 [facility] Comment on above: Performed By: #### C BC #### [facility] [address] [address] [address] Stoney Rodriguez Platelet mean volume (Bld) [Entitic vol] 9.7 fL Normal 9.5-13.5 [facility] Comment on above: Performed By: #### C BC #### [facility] [address] [address] [address] Stoney Rodriguez PLT 378 103/ul Normal 150-450 [facility] Comment on above: Performed By: #### C BC #### [facility] [address] [place] [address] Dr. Stoney Rodriguez RBC 4.14 106/ul Critically low 4.20-5.40 [facility] Comment on above: Performed By: #### C BC #### [facility] [address] [place] [address] Dr. Stoney Rodriguez WBC 8.5 103/ul Normal 4.0-11.0 [facility] Comment on above: Performed By: #### C BC #### [facility] [address] [place] [address] Dr. Stoney Rodriguez CULTURE URINEon 09-04-2022 CULTURE URINE Culture Observations : NO GROWTH. Normal [facility] Comment on above: Performed By: #### U RCX #### [facility] [address] [place] [address] Dr. Stoney Rodriguez GLYCOHEMOGLOBIN A1Con 2022 ADA RECOMMENDATION SEE BELOW Normal [facility] Comment on above: Result Comment: ADA RECOMMENDED LIMIT 4.0 - 6.0 ADA THERAPEUTIC TARGET < 7.0 ACTION SUGGESTED > 7.0 Performed By: #### A 1C #### [facility] [address] [place] [address] Dr. Stoney Rodriguez Glucose [Mass/Vol] 94 mg/dL Normal [facility] Comment on above: Performed By: #### A 1C #### [facility] [address] [place] [address] Dr. Stoney Rodriguez HbA1c (Bld) [Mass fraction] 4.9 % Normal 4.5-6.2 [facility] Comment on above: Performed By: #### A 1C #### [facility] [address] [place] [address] Dr. Stoney Rodriguez TSHon 09-04-2022 TSH 0.653 uIU/mL Normal 0.358-3.740 [facility] Comment on above: Performed By: #### T SH #### [facility] [address] [place] [address] Dr. Stoney Rodriguez TYPE AND SCREENon 09-04-2022 TYPE AND SCREEN Negative Normal [facility] Comment on above: Performed By: #### T NS #### [facility] [address] [place] [address] Dr. Stoney Rodriguez US PREG TVon 08-14-2022 [...] by: BILLIE SMITH Date: 2022-08-14 16:07 Normal [facility] CHEMISTRYOrdered By: Ida Mcfarland on 12-19-2021 Anion gap [Moles/Vol] 11 mmol/L Normal 6 - 16 mEq/L [facility] Remisol Calcium [Mass/Vol] 8.9 mg/dL Normal 8.9 [...] 18 mg/dL Normal 5 - 21 mg/dL [facility] Remisol Urea nitrogen/Creatinine [Mass ratio] 20 mg/mg Normal 10 - 20 [facility] Remisol CHEMISTRYOrdered By: SYSTEM SYSTEM on 12-19-2021 GFR/1.73 sq M.predicted among blacks MDRD (S/P/Bld) [Vol rate/Area] mL/min/1.73 m2 Normal >=59mL/min/1 .73 m2 [facility] Chem S GFR/1.73 sq M.predicted among non-blacks MDRD (S/P/Bld) [Vol rate/Area] mL/min/1.73 m2 Normal >=59mL/min/1 .73 m2 [facility] Chem S COAGULATIONOrdered By: Randall Mcfarland on 12-19-2021 aPTT Coag (PPP) [Time] 30.1 s Normal 25.1 - 36.5 second(s) [facility] Auto Coag INR Coag (PPP) [Relative time] 0.9 {INR} Invalid Interpretation Code [facility] Auto Coag PT Coag (PPP) [Time] 9.9 s Normal 9.4 - 1 2.5 second(s) [facility] Auto Coag HEMATOLOGYOrdered By: SYSTEM SYSTEM on [...] hCG Ql Negative (12/19/21 2:12 AM) Normal [facility] Man Sero CULTURE URINEon 04-28-2020 CULTURE URINE [...] <= 1 S Amikacin(JAI) 4 S Normal [facility] Comment on above: Performed By: #### C /UR ####[address] [id number] [id number] Culture, Urineon 04-28-2020 Bacteria identified Cx Nom (U) 10,000-50,000 CFU/ml [facility], [place] Bacteria identified Cx Nom (U) Normal urogenital praneeth present. Abnormal [place], [place] Bacteria identified Cx Nom (U) Escherichia coli Abnormal [facility], [place] Interpretation and review of laboratory results Abnormal [facility], [place] Test Performed by [id number] [place] [address] Hemoglobinon 04-27-2020 Hemoglobin (Bld) [Mass/Vol] 7.1 g/dL Low 11.7-16.0 [facility] Comment on above: Performed By: #### H EMGB #### [address] [address] Hemoglobin (Bld) [Mass/Vol] 7.1 g/dL Low 11.7 - 16 g/dL [place], [place] Interpretation and review of laboratory results Abnormal [place] Test Performed by [address] [address] [place], [place] Group B Strep Screen PCRon 1 [...] Methodology - Real Time PCR (Cepheid) Normal [facility] Comment on above: Performed By: #### [facility] ####[facility] [place] [address] Group B Strep, PCRon 020 Group B Strep Screen PCR NEGATIVE Expected Result: Negative CDC guidelines for prevention of Group B Strep disease recommends collection of both vaginal and rectal specimens for optimal recovery of GBS. Methodology - Real Time PCR (Cepheid) [place], [place] Test Performed by [facility], [address] [place] [address] [place], [place] Op Noteon 04-26-2020 Op Note PATIENT: ANAND HERRERA ADMISSION DATE: 04/25/2020 SURGERY DATE: 04/26/2020 DATE OF : 2000 AGE: 19 ADMITTING PHYSICIAN: Fariha Matos DO ATTENDING PHYSICIAN: aZc Chowdhury MD DICTATING PHYSICIAN: Zac Chowdhury MD OPERATIVE RECORD Procedure: PRIMARY LOW TRANSVERSE CERVICAL SECTION WITH DELIVERY OF A VIABLE FEMALE , APGARS WERE SIGNED BY [facility] AND WEIGHT WAS 1256 G. SHE WAS ALSO NOTED TO HAVE NORMAL UTERUS, TUBES, AND OVARIES. 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 Postoperative Diagnosis: Anesthesia: Spinal. She also did have a TAP block. Applications Manager: Dr. Benjamin. Replacement: 1500 cc of crystalloid. [...] 1500 cc of crystalloid. Diskriter Job ID: [id number] Zac Chowdhury MD DOD:04/26/2020 07:56 A JAKUB/kimmy DOT:04/26/2020 10:55 A Job Number: [id number] Document Number: [id number] cc: [place] [address] [place] [address] Fariha Matos, [address] [facility] [id number] Normal [facility] C. Trachomatis / N. Gonorrho eae, DNA Probeon 04-25-2020 C. trachomatis DNA ARCHANA+probe Ql (Genital specimen) NOT Detected Chlamydia trachomatis Nucleic Acid NOT Detected by DNA Amplification using the Cepheid System. Culture is the only recommended test in medical-legal cases such as suspected child abuse or molestation. [place], [place] N. gonorrhoeae DNA ARCHANA+probe Ql (Unsp spec) NOT Detected Neisseria gonorrhoeae Nucleic Acid NOT Detected by DNA Amplification using the Cepheid System. Culture is the only recommended test in medical-legal cases such as suspected child abuse or molestation. [place], [place] Test Performed by [facility], [address] [place] [id number] [place] [address] CBCon 04-25-2020 Erythrocyte distribution width (RBC) [Ratio] 18.2 % High 11.5 - 14.5 % [place] Hematocrit (Bld) [Volume fraction] 30.6 % Low 35 - 47 % [place] Hemoglobin (Bld) [Mass/Vol] 9.7 g/dL Low 11.7 - 16 g/dL [place] Interpretation and review of laboratory results Abnormal [place] MCH (RBC) [Entitic mass] 26.2 pg 26 - 34 pg [place] MCHC (RBC) [Mass/Vol] 31.9 % Low 32 - 36 % [place], [place] MCV (RBC) [Entitic vol] 82.2 fL 79 - 98 fL [place] Platelet mean volume (Bld) [Entitic vol] 8.1 fL 7.4 - 10.4 fL [place] Platelets (Bld) [#/Vol] 249 10*3/uL 140 - 440 10*3/uL [place] RBC (Bld) [#/Vol] 3.72 10*6/uL Low 3.8 - 5.2 10*6/uL [place] WBC (Bld) [#/Vol] 13.3 10*3/uL High 3.6 - 10.7 10*3/uL [place] Test Performed by [facility], [address] [place] [id number] [place] [address] CREATININE, RANDOM URINEon 1 Creatinine (U) [Mass/Vol] 66.8 mg/dL No Range [place], [place] Chlamydia and GC PCR Panelon 04-25-2020 Chlamydia and GC PCR Panel Chlamydia trachomatis PCR --> Status: F NOT Detected Chlamydia trachomatis Nucleic Acid NOT Detected by DNA Amplification using the lovemeshare.meid System. Culture is the only recommended test [...] NOT Detected by DNA Amplification using the CepCoachMePlusid System. Culture is the only recommended test in medical-legal cases such as suspected child abuse or molestation. Neisseria gonorrhoeae Nucleic Acid NOT Detected by DNA Amplification using the [employer] System. Culture is the only recommended test in medical-legal cases such as suspected child abuse or molestation. Normal [facility] Comment on above: Performed By: #### C TNGP ####[facility] [place], [place] Comp Metabolic Panelon 04-25 Calcium [Mass/Vol] 8.5 mg/dL Normal 8.4-10.[address] [facility] Comment on above: Performed By: #### P T/AP, CMP3, HEMOG, FIBGN #### [facility] [address] [place], [place] Glucose [Mass/Vol] 97 mg/dL Normal 70-100 [facility] [address] [facility] Comment on above: Performed By: #### P T/AP, CMP3, HEMOG, FIBGN #### [facility] [address], [place] ALP [Catalytic activity/Vol] 114 U/L Normal 38-126 [facility] Comment on above: Result Comment: Slig htly hemolysed, interpret with caution. Performed By: #### P T/AP, CMP3, HEMOG, FIBGN #### [facility] [address], [place] ALT [Catalytic activity/Vol] 19 U/L Normal 0-34 [facility] Comment on above: Result Comment: The ALT test is performed by an updated assay method. Please note that the reference intervals have been changed and are now sex specific. Performed By: #### P T/AP, CMP3, HEMOG, FIBGN #### [facility] [address], [place] Anion Gap 6 Normal [facility] Comment on above: Performed By: #### P T/AP, CMP3, HEMOG, FIBGN #### [facility] [address], [place] AST [Catalytic activity/Vol] 39 U/L Normal 15-46 [facility] Comment on above: Result Comment: Slig htly hemolysed, interpret with caution. Performed By: #### P T/AP, CMP3, HEMOG, FIBGN #### [facility] [address], [place] Bilirubin [Mass/Vol] 0.5 mg/dL Normal 0.2-1.3 [facility] Comment on above: Performed By: #### P T/AP, CMP3, HEMOG, FIBGN #### [facility] [address], [place] CO2 [Moles/Vol] 20 mmol/L Low 22-30 [facility] Comment on above: Performed By: #### P T/AP, CMP3, HEMOG, FIBGN #### [address] Creatinine [Mass/Vol] 0.63 mg/dL Normal 0.52-1.25 [facility] Comment on above: Performed By: #### P T/AP, CMP3, HEMOG, FIBGN #### [place] [address] [place], [place] eGFR OTHER > 90.0 Normal >60 [facility] Comment on above: Result Comment: KDIG O [...] #### P T/AP, CMP3, HEMOG, FIBGN #### [facility] [address], [place] GFR/1.73 sq M.predicted among blacks MDRD (S/P/Bld) [Vol rate/Area] mL/min/{1.73_m2} Normal >60 [facility] Comment on above: Performed By: #### P T/AP, CMP3, HEMOG, FIBGN #### [facility] [address], [place] Protein [Mass/Vol] 6.9 g/dL Normal 6.3-8.2 [facility] Comment on above: Performed By: #### P T/AP, CMP3, HEMOG, FIBGN #### [place] [address] [address], [place] Urea nitrogen [Mass/Vol] 14 mg/dL Normal 7-20 [facility] Comment on above: Performed By: #### P T/AP, CMP3, HEMOG, FIBGN #### [place] [address] [address], [place] Potassium [Moles/Vol] 4.3 mmol/L Normal 3.5-5.1 [facility] Comment on above: Result Comment: Slig htly hemolysed, interpret with caution. Performed By: #### P T/AP, CMP3, HEMOG, FIBGN #### [place] [address] [address], [place] Sodium [Moles/Vol] 134 mmol/L Low 135-145 [facility] Comment on above: Performed By: #### P T/AP, CMP3, HEMOG, FIBGN #### [place] [address] [address] [place], [place] Albumin [Mass/Vol] 3.4 g/dL Low 3.5-5.0 [facility] Comment on above: Performed By: #### P T/AP, CMP3, HEMOG, FIBGN #### [place] [address] [address] [place], [place] Chloride [Moles/Vol] 107 mmol/L Normal 98-107 [facility] Comment on above: Performed By: #### P T/AP, CMP3, HEMOG, FIBGN #### [place] [address] [address], [place] Comprehensive Metabolic Pane parag 04-25-2020 Albumin [Mass/Vol] 3.4 g/dL Low 3.5 - 5 g/dL [place] ALP [Catalytic activity/Vol] 114 U/L 38 - 126 U/L [place] Comment on above: Slightly hemolysed, interpret with caution. ALT [Catalytic activity/Vol] 19 U/L 0 - 34 U/L [place] Comment on above: The ALT test is perf ormed by an updated assay method. Please note that the reference intervals have been changed and are now sex specific. Anion gap [Moles/Vol] 6 mmol/L [place], [place] AST [Catalytic activity/Vol] 39 U/L 15 - 46 U/L [place] Comment on above: Slightly hemolysed, interpret with caution. Bilirubin Ql (U) 0.5 mg/dL 0.2 - 1.3 mg/dL [place] Calcium [Mass/Vol] 8.5 mg/dL 8.4 - 10. 4 mg/dL [place] Chloride [Moles/Vol] 107 mmol/L 98 - 10 7 mmol/L [place] CO2 [Moles/Vol] 20 mmol/L Low 22 - 30 mmol/L [place] Creatinine [Mass/Vol] 0.63 mg/dL 0.52 - 1.25 mg/dL [place] EGFR IF NonAfrican Chinese >90.0 >60 mL/min [place] Comment on above: KDIGO guidelines pro [...] MDRD (S/P/Bld) [Vol rate/Area] mL/min/{1.73_m2} >60 mL/min [place] Glucose [Mass/Vol] 97 mg/dL 70 - 100 mg/dL [place] Interpretation and review of laboratory results Abnormal [place] Potassium [Moles/Vol] 4.3 mmol/L 3.5 - 5.1 mmol/L [place] Comment on above: Slightly hemolysed, interpret with caution. Protein [Mass/Vol] 6.9 g/dL 6.3 - 8.2 g/dL [place] Sodium [Moles/Vol] 134 mmol/L Low 135 - 145 mmol/L [place] Urea nitrogen [Mass/Vol] 14 mg/dL 7 - 20 mg/dL [place] Creatinine, Ur Randomon 03-29 Creatinine, Ur Random 66.8 mg/dL Normal No Range [facility] Comment on above: Performed By: #### C RTUR, TPUR, MAT #### [address] Fibrinogenon 04-25-2020 Fibrinogen 390 mg/dL Normal 200-400 [place] Comment on above: Performed By: #### P T/AP, CMP3, HEMOG, FIBGN #### [place] [address] [place], [place] Hemogramon 04-25-2020 Erythrocyte distribution width (RBC) [Ratio] 18.2 % High 11.5-14.5 [facility] Comment on above: Performed By: #### P T/AP, CMP3, HEMOG, FIBGN #### [address] Hematocrit (Bld) [Volume fraction] 30.6 % Low 35.0-47.0 [facility] Comment on above: Performed By: #### P T/AP, CMP3, HEMOG, FIBGN #### [place] [address] [place] [address] Hemoglobin (Bld) [Mass/Vol] 9.7 g/dL Low 11.7-16.0 [facility] Comment on above: Performed By: #### P T/AP, CMP3, HEMOG, FIBGN #### [place] [address] [address], [place] MCH (RBC) [Entitic mass] 26.2 pg Normal 26.0-34.0 [facility] Comment on above: Performed By: #### P T/AP, CMP3, HEMOG, FIBGN #### [place] [address] [address], [place] MCHC 31.9 % Low 32.0-36.0 [facility] Comment on above: Performed By: #### P T/AP, CMP3, HEMOG, FIBGN #### [place] [address] [address], [place] MCV (RBC) [Entitic vol] 82.2 fL Normal 79.0-98.0 [facility] Comment on above: Performed By: #### P T/AP, CMP3, HEMOG, FIBGN #### [place] [address] [address] [place], [place] Platelet mean volume (Bld) [Entitic vol] 8.1 fL Normal 7.4-10.4 [facility] Comment on above: Performed By: #### P T/AP, CMP3, HEMOG, FIBGN #### [place] [address] [address], [place] Platelets (Bld) [#/Vol] 249 10*3/uL Normal 140-440 [facility] Comment on above: Performed By: #### P T/AP, CMP3, HEMOG, FIBGN #### [place] [address] [address], [place] RBC (Bld) [#/Vol] 3.72 10*6/uL Low 3.80-5.20 [facility] Comment on above: Performed By: #### P T/AP, CMP3, HEMOG, FIBGN #### [place] [address] [place] [address] WBC (Bld) [#/Vol] 13.3 10*3/uL High 3.6-10.7 [facility] Comment on above: Performed By: #### P T/AP, CMP3, HEMOG, FIBGN #### [facility] [address], [place] Medication Assisted Treatmen t Panelon 04-25-2020 Fentanyl Negative Normal [facility] Comment on above: Performed By: #### C RTUR, TPUR, MAT #### [facility] [address], [place] Amphetamines Ql (U) Negative Normal [facility] Comment on above: Performed By: #### C RTUR, TPUR, MAT #### [place] [address] [address], [place] Barbiturates Negative Normal [facility] Comment on above: Performed By: #### C RTUR, TPUR, MAT #### [place] [address] [address], [place] Benzodiazepines Ql (U) Negative Normal [facility] Comment on above: Performed By: #### C RTUR, TPUR, MAT #### [place] [address] [address], [place] Buprenorphine Screen Negative [facility] Comment on above: Performed By: #### C RTUR, TPUR, MAT #### [place] [address] [address], [place] Cocaine Ql (U) Negative Normal [facility] Comment on above: Performed By: #### C RTUR, TPUR, MAT #### [place] [address] [address], [place] Ethanol [Mass/Vol] Negative Normal [facility] Comment on above: Performed By: #### C RTUR, TPUR, MAT #### [place] [address] [address], [place] Methadone Ql (U) Negative Normal [facility] Comment on above: Performed By: #### C RTUR, TPUR, MAT #### [place] [address] [place] [address] Opiates Ql (U) Negative Normal [facility] Comment on above: Performed By: #### C RTUR, TPUR, MAT #### [place] [address] [address], [place] Oxycodone/Oxymorphone Negative Normal [facility] Comment on above: Performed By: #### C RTUR, TPUR, MAT #### [place] [address] [address] [place], [place] PCP Negative Normal [facility] Comment on above: Performed By: #### C RTUR, TPUR, MAT #### [place] [address] [address] [place], [place] THC Negative Normal [facility] Comment on above: Performed By: #### C RTUR, TPUR, MAT #### [place] [address] [address], [place] Amphetamines Ql (U) Negative [facility], [place] Benzodiazepines Ql (U) Negative [facility], [place] Cocaine Ql (U) Negative [facility], [place] Ethanol [Mass/Vol] Negative [facility], [place] Methadone Ql (U) Negative [facility] [place], [place] Opiates Ql (U) Negative [facility], [place] Sodium [Moles/Vol] See Below [facility], [place] Comment on above: The expected value f [...] performed using non-forensic procedures. Test Performed by [place] [address] MAT Panel Test Comment See Below Normal Rubin [facility] Comment on above: Result Comment: [...] By: #### C RTUR, TPUR, MAT #### [place] [address] Metabolic Panelon 04-25-2020 Sodium [Moles/Vol] Negative [place], [place] Otheron 04-25-2020 Test Performed by [address] Test Performed by [address] PROTEIN, URINE, RANDOMon Interpretation and review of laboratory results Abnormal [place], [place] Protein (U) [Mass/Vol] 88 mg/dL High [place], [place] PROTIME/INR & PTTon 04-25-20 20 INR Coag (PPP) [Relative time] 0.9 {INR} [place], [place] Comment on above: Recommended Anticoag ulant [...] Ur Random 88 mg/dL High No Range [facility] Comment on above: Performed By: #### C RTUR, TPUR, MAT #### [facility] [address], [place] Protime AND APTTon 0 aPTT Coag (Bld) [Time] 21.4 s Normal 20.0-30.5 [facility], [place] Comment on above: NOTE: The therapeuti c time for Heparin anticoagulation, based on Xa activity inhibition, is an APTT of 46-80 seconds. Result Comment: NOTE : The therapeutic time for Heparin anticoagulation, based on Xa activity inhibition, is an APTT of 46-80 seconds. Performed By: #### P T/AP, CMP3, HEMOG, FIBGN #### [facility] [address], [place] INR 0.9 Normal 0.9-1.1 [facility] Comment on above: Result Comment: Trell mmended [...] #### P T/AP, CMP3, HEMOG, FIBGN #### [facility] [address], [place] PT Coag (PPP) [Time] 9.6 s Normal 9.0-12.0 [place] Comment on above: . Result Comment: . Performed By: #### P T/AP, CMP3, HEMOG, FIBGN #### [facility] [address], [place] TS GELon 04-25-2020 TS GEL ABO Group: O Rh, Gel: POS Antibody Screen Gel: NEG Normal [facility] Comment on above: Performed By: #### T SGL ####[facility] TYPE AND SCREENon 04-25-2020 Sodium [Moles/Vol] Negative [facility], [place] Sodium [Moles/Vol] O [facility] [place], [place] Sodium [Moles/Vol] Positive [facility], [place] Test Performed by [facility], [address] [place] [id number] [facility], [place] ABO, External Resulton 04-10 ABO, External Result O [facility], [place] C. Trachomatis, External Res ulton 04-10-2020 C. Trachomatis, External Result Negative [facility], [place] HIV, External Resulton 04-10 HIV, External Result Negative [facility] [place], [place] Hepatitis B, External Result on 04-10-2020 Hep B, External Result Negative [facility], [place] N. Gonorrhoeae, External Res ulton 04-10-2020 N. Gonorrhoeae, External Result Negative [facility], [place] Otheron 04-10-2020 Verified with Fer Alejo rn [facility], [place] RPR, External Labon 04-10-20 20 RPR, External Result Negative [facility], [place] Rh Factor, External Resulton 04-10-2020 Rh Factor, External Result Positive [facility], [place] Rubella Titer, External Resu lton 04-10-2020 Rubella Titer, External Result IMMUNE [facility], [place] Progress Noteon 03-08-2020 [employer] Authentication Interface Message Text Pediatric Cardiology Echocardiogram [...] in visit on 03/08/20 Echo New Narrative [facility] [place] [address] [email or web address] ---- Echocardiogram Report M-mode, complete 2D, complete spectral Doppler, and color Doppler PATIENT: Anand Herrera STUDY DATE/TIME: Mar 08 2020 12:04PM HEIGHT: : 2000 WEIGHT: AGE: 19yr BSA/BMI: / GENDER: F BP: 137 / 64 LOCATION: [facility] REFERRING PHYSICIAN: Zac Martinez Md ORDERING PROVIDER: [...] STUDY AND PROCEDURE DATA: Procedure Description: New ([id number]) . Study status: Routine. Location: lab. Procedure: [...] a patent foramen ovale. There is a [id number] shunt. Left atrium - The atrium is [...] of all we discussed. Hannah Guevara MD [facility] Oncology Consultant [facility] Clinical [place]age Supervisor of Pediatrics [facility] Counseling and coordination of care for this patient was greater than 35minutes which is more than 50% of the total time of 60 minutes spent on the encounter. Normal [facility] [employer] Authentication Interface Message Text Pediatric Hand Surgery [...] requesting provider. 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 Consent to share information with [facility] team, OB and debt collector signed. Pt plans to deliver at [facility] with Dr Martinez. Television Actor is not yet decided. female fetus- name is [place] Method of feeding: breast and bottle Ultrasound findings today: See report in procedures for details. Reinforced continued OB care with Dr Martinez- next appointment- next week Normal [facility] [employer] Authentication Interface Message Text [facility] genetic counseling note Consultation has been [...] Herrera also met with Jerilyn Agee, Clinical Wrecking Mechanic from our [facility]. Jerilyn will continue to help coordinate and care. consultation with Pediatric Orthopedic Surgery in the Hand and Upper Extremity Clinic is being arranged. follow up with Pediatric Orthopedic Surgery should be within one month of age or otherwise as per their recommendations. Call [phone] to schedule. Consultation with Medical Genetics should be considered in the period, especially if additional concerns are noted after delivery. The debt collector or patient can request this consultation. Call [phone] to schedule. Indicate that you were followed by the [facility] when scheduling. Diagnosis: DIAGNOSIS. 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 Plan: 1. Continued obstetrical care with her primary radiation officer is recommended. 2. Follow up q4 weeks to evaluate biometric parameters and anatomy. These are planned with the [facility]/your office. 3. surveillance as follows: weekly BPP beginning at 32 weeks. 4. consultation with Pediatric Orthopedic Surgery in the Hand and Upper Extremity Clinic is being arranged. 5. Delivery is appropriate at your local institution/already planned in [place] with follow up as indicated. 6. Mode and timing of delivery are based on the usual obstetrical indications. 7. Anticipate normal nursery. OR Neonatology/Pediatric di to be present at delivery to evaluate infant and determine nursery placement. 8. follow up with Pediatric Orthopedic Surgery should be within one month of age or otherwise as per their recommendations. Call [phone] to schedule. 9. Consultation with Medical Genetics should be considered in the period, especially if additional concerns are noted after delivery. The debt collector or patient can request this consultation. Call [phone] to schedule. Indicate that you were followed by the [facility] when scheduling. 9. Other follow up as clinically indicated. Her complete [facility] Plan of Care summary will be distributed. The total patient time of the visit was 30 minutes, of which greater than 50% of the time was spent counseling and coordinating care. Junior Kat MD Normal [facility] Progress Noteon 02-15-2020 [employer] Authentication Interface Message Text Dating for consult Normal [facility] Vital Signs Date Time Vital Sign Value Performing Clinician Facility 12-22-2024 13:57-0400 Body mass index (BMI) [Ratio] 30.57 kg/m2 Simona ROSS Work Phone: [facility] 12-22-2024 13:57-0400 Body weight 85.91 kg Simona ROSS Work Phone: [facility] 12-22-2024 13:57-0400 Diastolic blood pressure 68 mm[Hg] Simona ROSS Work Phone: [facility] 12-22-2024 13:57-0400 Systolic blood pressure 112 mm[Hg] Simona ROSS Work Phone: [facility] 12-08-2024 11:30-0400 Body mass index (BMI) [Ratio] 29.58 kg/m2 Marco A Jc DO Work Phone: [facility] 12-08-2024 11:30-0400 Body weight 83.12 kg Marco A Jc DO Work Phone: [facility] 12-08-2024 11:30-0400 Diastolic blood pressure 66 mm[Hg] Marco A Jc DO Work Phone: [facility] 12-08-2024 11:30-0400 Systolic blood pressure 122 mm[Hg] Marco A Jc DO Work Phone: [facility] 11-22-2024 11:51-0400 Body mass index (BMI) [Ratio] 29.34 kg/m2 Marco A Jc DO Work Phone: [facility] 11-22-2024 11:51-0400 Body weight 82.46 kg Marco A Jc DO Work Phone: [facility] 11-22-2024 11:51-0400 Diastolic blood pressure 66 mm[Hg] Marco A Jc DO Work Phone: [facility] 11-22-2024 11:51-0400 Systolic blood pressure 112 mm[Hg] Marco A Jc DO Work Phone: [facility] 10-25-2024 14:39-0400 Body mass index (BMI) [Ratio] 28.25 kg/m2 Simona Currie PA Work Phone: [facility] 10-25-2024 14:39-0400 Body weight 79.38 kg Simona Currie PA Work Phone: [facility] 10-25-2024 14:39-0400 Diastolic blood pressure 62 mm[Hg] Simona Currie PA Work Phone: [facility] 10-25-2024 14:39-0400 Systolic blood pressure 110 mm[Hg] Simona Currie PA Work Phone: [facility] 09-27-2024 14:51-0400 Body mass index (BMI) [Ratio] 27.12 kg/m2 Marco A Jc DO Work Phone: [facility] 09-27-2024 14:51-0400 Body weight 76.2 kg Marco A Jc DO Work Phone: [facility] 09-27-2024 14:51-0400 Diastolic blood pressure 70 mm[Hg] Marco A Jc DO Work Phone: [facility] 09-27-2024 14:51-0400 Systolic blood pressure 110 mm[Hg] Marco A Jc DO Work Phone: [facility] 08-29-2024 11:50-0400 Body mass index (BMI) [Ratio] 25.95 kg/m2 Marco A Jc DO Work Phone: [facility] 08-29-2024 11:50-0400 Body weight 72.94 kg Marco A Jc DO Work Phone: [facility] 08-29-2024 11:50-0400 Diastolic blood pressure 68 mm[Hg] Marco A Jc DO Work Phone: [facility] 08-29-2024 11:50-0400 Systolic blood pressure 114 mm[Hg] Marco A Jc DO Work Phone: [facility] 08-01-2024 13:20-0400 Body mass index (BMI) [Ratio] 26.95 kg/m2 Marco A Jc DO Work Phone: [facility] 08-01-2024 13:20-0400 Body weight 75.75 kg Marco A Jc DO Work Phone: [facility] 08-01-2024 13:20-0400 Diastolic blood pressure 70 mm[Hg] Marco A Jc DO Work Phone: [facility] 08-01-2024 13:20-0400 Systolic blood pressure 120 mm[Hg] Marco A Jc DO Work Phone: [facility] 05-19-2024 11:32-0500 Body mass index (BMI) [Ratio] 23.4 kg/m2 Marco A Jc DO Work Phone: [facility] 05-19-2024 11:32-0500 Body weight 65.77 kg Marco A Jc DO Work Phone: [facility] 05-19-2024 11:32-0500 Diastolic blood pressure 74 mm[Hg] Marco A Jc DO Work Phone: [facility] 05-19-2024 11:32-0500 Systolic blood pressure 110 mm[Hg] Marco A Jc DO Work Phone: [facility] 04-19-2024 01:09-0500 Body temperature 98.06 [degF] [facility] 04-19-2024 01:09-0500 Diastolic blood pressure 84 mm[Hg] [facility] 04-19-2024 01:09-0500 Heart rate 90 /min [facility] 04-19-2024 01:09-0500 Respiratory rate 16 /min [facility] 04-19-2024 01:09-0500 SaO2% (BldA) [Mass fraction] 100 % [facility] 04-19-2024 01:09-0500 Systolic blood pressure 126 mm[Hg] [facility] 03-08-2024 15:12-0500 Body mass index (BMI) [Ratio] 22.29 kg/m2 Marco A Jc DO Work Phone: [facility] 03-08-2024 15:12-0500 Body weight 62.65 kg Marco A Jc DO Work Phone: [facility] 03-08-2024 15:12-0500 Diastolic blood pressure 70 mm[Hg] Marco A Jc DO Work Phone: [facility] 03-08-2024 15:12-0500 Systolic blood pressure 120 mm[Hg] Marco A Jc DO Work Phone: [facility] 10-14-2022 12:27-0400 Body temperature 98.24 [degF] Nakul Cannon [facility] 10-14-2022 12:27-0400 Diastolic blood pressure 64 mm[Hg] Nakul Cannon [facility] 10-14-2022 12:27-0400 Heart rate 107 /min Nakul Cannon [facility] 10-14-2022 12:27-0400 Respiratory rate 18 /min Nakul Cannon [facility] 10-14-2022 12:27-0400 SaO2% (BldA) [Mass fraction] 100 % Nakul Cannon [facility] 10-14-2022 12:27-0400 Systolic blood pressure 113 mm[Hg] Nakul Cannon [facility] 12-19-2021 03:42-0400 Diastolic blood pressure 64 mm[Hg] Anthony Michelle [facility] 12-19-2021 03:42-0400 Heart rate 78 /min Anthony Michelle [facility] 12-19-2021 03:42-0400 Hourly Rounding Anthony Michelle [facility] 12-19-2021 03:42-0400 Nursing Progress Note Reason Other: Pt mediciated per orders. Family x1 cartside. Denies any needs at this time. Anthony Michelle [facility] 12-19-2021 03:42-0400 Respiratory rate 16 /min Anthony Michelle [facility] 12-19-2021 03:42-0400 SaO2% (BldA) [Mass fraction] 100 % Anthony Michelle [facility] 12-19-2021 03:42-0400 Systolic blood pressure 116 mm[Hg] Anthony Michelle [facility] 12-19-2021 02:40-0400 Diastolic blood pressure 70 mm[Hg] Anthony Michelle [facility] 12-19-2021 02:40-0400 Heart rate 82 /min Anthony Michelle [facility] 12-19-2021 02:40-0400 Hourly Rounding Anthony Michelle [facility] 12-19-2021 02:40-0400 Nursing Progress Note Reason Other: Pt ambulatory to bathroom and back to cart with a steady gait. Anthony Michelle [facility] 12-19-2021 02:40-0400 Respiratory rate 16 /min Anthony Michelle [facility] 12-19-2021 02:40-0400 SaO2% (BldA) [Mass fraction] 100 % Anthony Michelle [facility] 12-19-2021 02:40-0400 Systolic blood pressure 122 mm[Hg] Anthony Michelle [facility] 12-19-2021 01:53-0400 Body temperature 98.06 [degF] Anthony Martinez [facility] 12-19-2021 01:53-0400 Diastolic blood pressure 84 mm[Hg] Anthony Michelle [facility] 12-19-2021 01:53-0400 Heart rate 89 /min Anthony Briscoener [facility] 12-19-2021 01:53-0400 Respiratory rate 16 /min Anthony Michelle [facility] 12-19-2021 01:53-0400 SaO2% (BldA) [Mass fraction] 100 % Anthony Martinez [facility] 12-19-2021 01:53-0400 Systolic blood pressure 149 mm[Hg] Anthony Martinez [facility] 11-01-2021 08:09-0400 Body temperature 98.42 [degF] Keanu Kamara [facility] 11-01-2021 08:09-0400 Diastolic blood pressure 90 mm[Hg] Keanu Kamara [facility] 11-01-2021 08:09-0400 Heart rate 94 /min Keanu Asad [facility] 11-01-2021 08:09-0400 Respiratory rate 18 /min Keanu Asad [facility] 11-01-2021 08:09-0400 SaO2% (BldA) [Mass fraction] 98 % Keanu Asad [facility] 11-01-2021 08:09-0400 Systolic blood pressure 145 mm[Hg] Keanu Asad [facility] 09-18-2021 09:59-0400 Body temperature 98.06 [degF] [facility] 09-18-2021 09:59-0400 Diastolic blood pressure 87 mm[Hg] [facility] 09-18-2021 09:59-0400 Heart rate 90 /min [facility] 09-18-2021 09:59-0400 Respiratory rate 16 /min [facility] 09-18-2021 09:59-0400 SaO2% (BldA) [Mass fraction] 100 % [facility] 09-18-2021 09:59-0400 Systolic blood pressure 136 mm[Hg] [facility] 04-28-2020 07:51-0500 Body Temperature 97.81 [degF] [place], [place] 04-28-2020 07:51-0500 BP Diastolic 68 mm[Hg] [place], [place] 04-28-2020 07:51-0500 BP Systolic 121 mm[Hg] [place] 04-28-2020 07:51-0500 Pulse (Heart Rate) 97 /min [place], [place] 04-28-2020 07:51-0500 Pulse Oximetry 97 % [place] 04-28-2020 07:51-0500 Respiratory Rate 18 /min [place] 04-25-2020 13:40-0500 BMI (Body Mass Index) 23.3 kg/m2 [place], [place] 04-25-2020 13:40-0500 Body weight 63.5 kg [place], [place] 04-25-2020 13:40-0500 Height 165.1 cm [place] Encounters Encounter Date Encounter Type Care Provider Facility Start: 12-22-2024 End: 12-22-2024 Bobboo flowssaritha ROSS Work Phone: [facility] BARRERA Start: 12-22-2024 End: 12-22-2024 Bamboo flowsheet Simona ROSS Work Phone: HENRIEmelia Coffey [facility] Start: 12-22-2024 End: 12-22-2024 Office outpatient visit 15 minutes Simona ROSS Work Phone: LON WILKERSONN Comment on above: Third trimester preg tuan ([facility]); 33 weeks gestation of ([facility]); Amniotic band syndrome; History of miscarriage Start: 12-22-2024 End: 12-22-2024 ambulatory SIMONA CURRIE Not Available Start: 12-12-2024 End: 12-12-2024 ambulatory MARCO A JC Not Available Start: 12-08-2024 End: 12-08-2024 Office outpatient visit 15 minutes Marco A Jc DO Work Phone: [facility] Comment on above: Third trimester preg tuan ([facility]); 31 weeks gestation of ([facility]); Screening, , for anatomic survey ([facility]) Start: 12-08-2024 End: 12-08-2024 ambulatory MARCO A JC Not Available Start: 11-22-2024 End: 11-22-2024 Bamboo flowsheet Marco A Jc DO Work Phone: HENRIEmelia Coffey [facility] Start: 11-22-2024 End: 11-22-2024 Bamboo flowsheet Marco A Jc DO Work Phone: NOMEemlia Coffey [facility]BD[facility] Start: 11-22-2024 End: 11-22-2024 Office outpatient visit 15 minutes Marco A Jc DO Work Phone: NOMEmelia Coffey [facility]BD[facility] Comment on above: Size of fetus incons istent with dates in second trimester ([facility]) (Primary Dx); Second trimester ([facility]); 28 weeks gestation of ([facility]); Mastitis Start: 11-22-2024 End: 11-22-2024 ambulatory MARCO A JC Not Available Start: 10-31-2024 End: 10-31-2024 Clinisync Result Encounter Simona ROSS Work Phone: [facility] External Department Unsolicited Start: 10-31-2024 End: 10-31-2024 Clinisync Result Encounter Simona ROSS Work Phone: [facility] External Department Unsolicited Start: 10-25-2024 End: 10-25-2024 Office outpatient visit 15 minutes Simona ROSS Work Phone: [facility] Comment on above: Second trimester pre gnancy ([facility]); 24 weeks gestation of ([facility]); HSV infection; H/O pre-eclampsia in prior , currently ([facility]); Diabetes mellitus screening; Encounter for anatomic survey ([facility]) Start: 10-25-2024 End: 10-25-2024 ambulatory SIMONA CURRIE Not Available Start: 10-25-2024 End: 10-25-2024 Bamboo flowsheet Simona ROSS Work Phone: [facility] Start: 10-25-2024 End: 10-25-2024 Bamboo flowsheet Simona ROSS Work Phone: [facility] Start: 09-27-2024 End: 09-27-2024 flow sheet Marco A Jc DO Work Phone: [facility] Comment on above: Second trimester pre gnancy; 20 weeks gestation of ; Exposure to STD; History of miscarriage Start: 09-27-2024 End: 09-27-2024 ambulatory MARCO A JC Not Available Start: 09-27-2024 End: 09-27-2024 Bamboo flowsheet Marco A Jc DO Work Phone: [facility] Start: 09-27-2024 End: 09-29-2024 External Result Encounter Marco A Jc DO Work Phone: [facility] External Department Unsolicited Start: 09-27-2024 End: 09-29-2024 External Result Encounter Marco A Jc DO Work Phone: [facility] External Department Unsolicited Start: 08-29-2024 End: 08-29-2024 Bamboo flowsheet Marco A Jc DO Work Phone: [facility] Start: 08-29-2024 End: 08-29-2024 Bamboo flowsheet Marco A Jc DO Work Phone: [facility] Start: 08-29-2024 End: 08-29-2024 Office outpatient visit 15 minutes Marco A Jc DO Work Phone: [facility] Comment on above: History of miscarria ge (Primary Dx); Second trimester ; 16 weeks gestation of ; STD exposure; Vaginal discharge Start: 08-29-2024 End: 08-29-2024 ambulatory MARCO A JC Not Available Start: 08-16-2024 End: 08-16-2024 Clinisync Result Encounter Marco A Jc DO Work Phone: [facility] External Department Unsolicited Start: 08-16-2024 End: 08-16-2024 Clinisync Result Encounter Marco A Jc DO Work Phone: [facility] External Department Unsolicited Start: 08-16-2024 End: 08-16-2024 Subsequent hospital visit by physician [id number] Obgynimg Ultrasound 1 [place] Comment on above: as inciden neetu finding ([facility]) Start: 08-01-2024 End: 08-01-2024 Bamboo flowsheet Marco A Jc DO Work Phone: [facility] Start: 08-01-2024 End: 08-01-2024 Bamboo flowsheet Marco A Jc DO Work Phone: [facility] Start: 08-01-2024 End: 08-01-2024 Office outpatient visit 15 minutes Marco A Jc DO Work Phone: [facility] Comment on above: 12 weeks gestation o f ; First trimester ; Amniotic band syndrome Start: 08-01-2024 End: 08-01-2024 ambulatory MARCO A JC Not Available Start: 07-07-2024 End: 07-07-2024 Clinisync Result Encounter Marco A Jc DO Work Phone: [facility] External Department Unsolicited Start: 07-07-2024 End: 07-07-2024 Clinisync Result Encounter Marco A Jc DO Work Phone: [facility] External Department Unsolicited Start: 07-01-2024 End: 07-01-2024 ambulatory MARCO A [...] 04-19-2024 End: 04-19-2024 Emergency department patient visit [facility] Start: 03-08-2024 End: 03-08-2024 Patient encounter procedure [...] End: 03-16-2024 Clinisync Result Encounter Marco A Greene DO Work Phone: [facility] External Department Unsolicited Start: 02-02-2023 End: 02-25-2023 Pre-admission assessment Zac Perezten [facility] Start: 11-10-2022 ambulatory MELENDREZPOLO BLACKEY Faci lity:[facility] Jacobo Mark Start: 10-14-2022 End: 10-14-2022 Emergency department patient visit Nakul Cannon [facility] Start: 09-26-2022 ambulatory PCP UNKNOWN Facility:[facility] Jacobo Mark Start: 09-04-2022 End: 09-05-[address] MARCO A GREENE . Facility: Start: 08-14-2022 End: 08-15-[address] MARCO A GREENE . Facility: Start: 12-19-2021 End: 12-19-2021 Emergency department patient visit Anthony Martinez [facility] Start: 11-14-2021 End: 11-14-2021 Patient encounter procedure Grover Amaral OD Work Phone: Ophthalmology Comment on above: EKC (epidemic kerato conjunctivitis) (Primary Dx) Start: 11-07-2021 End: 11-07-2021 Patient encounter procedure Grover Amaral OD Work Phone: Ophthalmology Comment on above: Viral conjunctivitis (Primary Dx) Start: 11-01-2021 End: 11-01-2021 Emergency department patient visit Keanu Kamara [facility] Start: 09-18-2021 End: 09-18-2021 Emergency department patient visit Amos Espinoza [facility] Start: 04-25-2020 End: 04-28-2020 Evaluation and management of inpatient Chelsi Parra Work Phone: [facility] Procedures Date Procedure Procedure Detail Performing Clinician Start: 11-22-2024 Urnls dip stick/tabl et rgnt non-auto w/o micrscp Marco A Jc DO Work Phone: Start: 10-31-2024 US OB INCOMPLETE ANATOMY Simona ROSS Work Phone: Start: 10-25-2024 Urnls dip stick/tabl et rgnt non-auto w/o micrscp Simona ROSS Work Phone: Start: 09-27-2024 Urnls dip stick/tabl et rgnt non-auto w/o micrscp Marco A Jc DO Work Phone: Start: 09-27-2024 RECURRENT VAGINITIS (HTRX) Marco A Jc DO Work Phone: Start: 08-16-2024 Us uterus limited 1/> fetuses Marco A Zavaleta Jc DO Work Phone: Start: 08-16-2024 uterus limited 1/> fetuses Marco A Jc DO Work Phone: Start: 08-01-2024 Urnls dip stick/tabl et rgnt non-auto w/o micrscp Marco A Jc DO Work Phone: Start: 07-07-2024 BOX TEST Marco A Fazi o DO Work Phone: Start: 03-08-2024 IGP,APTIMA HPV,AGE GDLN Marco A Jc DO Work Phone: Start: 04-27-2020 Blood count hemoglobin Kristrun H Kristinsdottir Work Phone: Start: 04-25-2020 Blood count complete automated Codie Hough Work Phone: Start: 04-25-2020 Blood typing serolog ic abo Codie Hough Work Phone: Start: 04-25-2020 Comprehensive metabo lic panel Codie Hough Work Phone: Start: 04-25-2020 Fibrinogen activity Whi tnmango Hough Work Phone: Start: 04-25-2020 PROTIME/INR & PTT Kerenn mango Hough Work Phone: Start: 04-25-2020 Creatinine other source Codie Marti Gianluca Work Phone: Start: 04-25-2020 Culture bacterial quanttative colony count urine Codie Kidd Gianluca Work Phone: Start: 04-25-2020 Iadna multiple organ isms direct probe tq Codie Marti Gianluca Work Phone: Start: 04-25-2020 MEDICATION ASSISTED TREATMENT PANEL Codie Marti Hough Work Phone: Start: 04-25-2020 Protein total xcpt refractometry urine Codie Hough Work Phone: Start: 04-25-2020 Susceptiblty stdy antimicrbial micro/agar dilutj Codie Marti Gianluca Work Phone: Start: 04-10-2020 ABO, EXTERNAL RESULT [...] Treatment Date Care Activity Detail Author Start: 10-08-2049 Zoster Vaccines (1 o f 2) Zoster Vaccines (1 of 2) [facility] Start: 04-28-2030 DTaP/Tdap/Td Vaccine s (8 - Td or Tdap) DTaP/Tdap/Td Vaccines (8 - Td or Tdap) [facility] Start: 03-14-2025 End: 03-14-2025 Patient encounter procedure [facility] Start: 01-04-2025 End: 01-04-2025 Patient encounter procedure 01/04/2025 2:00 PM EDT Routine LON BARRERA [address] [place] [id number] Marco A Greene DO [address] [place] [address] [facility] Coffey [facility] Start: 12-26-2024 Influenza vaccination Influenz a Vaccine (Season Ended) [facility] Start: 12-22-2024 End: 12-22-2024 Patient encounter procedure LON BARRERA Comment on above: Arrived Start: 12-22-2024 End: 06-24-2025 US biophysical profile w non stress test US biophysical profile w non stress test Imaging Routine Amniotic band syndrome Expected: 12/22/2024 (Approximate), Expires: 06/24/2025 [facility] Work Phone: Comment on above: Expected: 12/22/2024 (Approximate), Expires: 06/24/2025 Start: 12-08-2024 End: 03-10-2025 US for US OB 14+ weeks anatomy scan Imaging Routine Third trimester ([facility]) 31 weeks gestation of ([facility]) Screening, , for anatomic survey ([facility]) Expected: 12/08/2024, Expires: 03/10/2025 [facility] Work Phone: Comment on above: Expected: 12/08/2024 , Expires: 03/10/2025 Start: 12-08-2024 End: 12-08-2024 Professional / ancillary services management 12/08/2024 11:00 AM EDT Ancillary Procedure LON BARRERA [address] [place] [id number] LON Coffey [facility]BD[facility] Start: 11-22-2024 End: 03-25-2025 US for US OB follow up transabdominal approach Imaging Routine Size of fetus inconsistent with dates in second trimester ([facility]) Expected: 11/22/2024, Expires: 03/25/2025 [facility] Work Phone: Comment on above: Expected: 11/22/2024 , Expires: 03/25/2025 Start: 11-22-2024 End: 11-22-2024 Patient encounter procedure [facility] Comment on above: Arrived Start: 10-25-2024 End: 10-25-2024 Patient encounter procedure [facility] Comment on above: Arrived Start: 10-25-2024 End: 10-25-2025 CBC panel - Blood by Automated count CBC Lab Routine Diabetes mellitus screening Expected: 10/25/2024 (Approximate), Expires: 10/25/2025 [facility] Work Phone: Comment on above: Expected: 10/25/2024 (Approximate), Expires: 10/25/2025 Start: 10-25-2024 End: 10-25-2025 Measurement of glucose 1 hour after glucose challenge for glucose tolerance test Glucose tolerance, 1 hour Lab Routine Diabetes mellitus screening Expected: 10/25/2024 (Approximate), Expires: 10/25/2025 [facility] Healthcare Comment on above: Expected: 10/25/2024 (Approximate), Expires: 10/25/2025 Start: 10-25-2024 End: 01-25-2025 US for US OB limited 1+ fetuses Imaging Routine Encounter for anatomic survey ([facility]) Expected: 10/25/2024 (Approximate), Expires: 01/25/2025 [facility] Healthcare Comment on above: Expected: 10/25/2024 (Approximate), Expires: 01/25/2025 Start: 09-27-2024 End: 09-27-2024 Patient encounter procedure [facility] Comment on above: Arrived Start: 08-29-2024 End: 03-01-2025 Alpha fetoprotein, maternal Alpha fetoprotein, maternal Lab Routine Second trimester 16 weeks gestation of Expected: 08/29/2024 (Approximate), Expires: 03/01/2025 [facility] Work Phone: Comment on above: Expected: 08/29/2024 (Approximate), Expires: 03/01/2025 Start: 08-29-2024 End: 08-29-2024 Patient encounter procedure [facility] Comment on above: Arrived Start: 08-01-2024 End: 08-01-2024 Patient encounter procedure [facility] Comment on above: Arrived Start: 05-19-2024 End: 05-19-2024 Patient encounter procedure 05/19/2024 11:20 AM EST Office Visit [facility] [address] [place] [id number] Marco A Greene DO [address] [place] [address] Arrived [facility] Comment on above: Arrived Start: 12-27-2023 COVID-19 Vaccine ( season) COVID-19 Vaccine ( season) [facility] Start: 12-26-2021 Influenza vaccination INFLUENZA (#1) [facility] Start: 10-08-2020 PAP TESTING PAP TESTING [facility] Start: 10-08-2020 Screening for malign ant neoplasm of cervix [facility] Start: 10-08-2018 Urine microalbumin profile DTAP,TDAP,TD (1 - Tdap) [facility] Start: 10-08-2017 CHLAMYDIA SCREENING (18-24) CHLAMYDIA SCREENING (18-24) [facility] Start: 10-08-2017 GC (GONORRHEA) SCREENING (18-24) GC (GONORRHEA) SCREENING (18-24) [facility] Start: 10-08-2017 HEPATITIS C SCREENING HEPATITIS C [facility] Start: 10-08-2017 Hepatitis C screening Hepatitis C [facility] Start: 10-08-2017 HIV SCREENING HIV SCREENING [facility] Start: 10-08-2013 PEDS TO ADULT TRANSITION ANNUAL ASSESSMENT PEDS TO ADULT TRANSITION ANNUAL ASSESSMENT [facility] Start: 03-01-2012 Varicella vaccination Varicell a Vaccines (2 of 2 - 2-dose childhood series) [facility] Start: 2011 Adult depression screening assessment DEPRESSION SCREENING [facility] Start: 2011 PEDS TO ADULT TRANSITION INITIAL DISCUSSION PEDS TO ADULT TRANSITION INITIAL DISCUSSION [facility] Start: 10-08-2010 HPV VACCINE (1 - 2-d ose series) HPV VACCINE (1 - 2-dose series) [facility] Start: 04-09-2000 COVID-19 VACCINE (#1) COVID-19 VACCI NE (#1) [facility] Start: 1999 HIV screening HIV Screening [facility] Start: 1999 Lipid panel Lipid Panel [facility] Start: 1999 Yearly Adult Physical Yearly Adult P hysical [facility] CHLAMYDIA TRACHOMATI S (GENITO/STI) CHLAMYDIA TRACHOMATIS (GENITO/STI) Lab Routine Exposure to STD Ordered: 09/27/2024 [facility] Comment on above: Ordered: 09/27/2024 Cytology Cervical or vaginal smear or scraping study Pap Smear Pathology and Cytology Routine Well woman exam with routine gynecological exam Ordered: 03/08/2024 [facility] Work Phone: Comment on above: Ordered: 03/08/2024 Neisseria gonorrhoea e DNA [Presence] in Unspecified specimen by ARCHANA with probe detection Neisseria gonorrhea DNA probe, direct Lab Routine Exposure to STD Ordered: 09/27/2024 [facility] Comment on above: Ordered: 09/27/2024 Nonrebreather mask oxygen Nonrebreather mask oxygen Respiratory Care Routine As directed - RT (PRN) until discontinued starting 04/26/2020 [place], [place] Comment on above: As directed - RT (MO N) until discontinued starting 04/26/2020 Oxygen therapy [[facility] Data Set] Initiate Oxygen Therapy Protocol Respiratory Care Routine Daily until discontinued starting 04/26/2020 [place], [place] Comment on above: Daily until disconti nued starting 04/26/2020 Spirometry panel Incentive roger metry Respiratory Care Routine Every 2hr while awake until discontinued starting 04/26/2020 [place] Comment on above: Every 2hr while awak e until discontinued starting 04/26/2020 SURESWAB(R) ADVANCED VAGINITIS PLUS, TMA SURESWAB(R) ADVANCED VAGINITIS PLUS, TMA Pathology and Cytology Routine Exposure to STD Ordered: 09/27/2024 [facility] [employer] Work Phone: Comment on above: Ordered: 09/27/2024 [facility] Immunizations Immunization Date Immunization Notes Care Provider Fa josety 04-28-2020 tetanus toxoid, redu paula diphtheria toxoid, and acellular pertussis vaccine, adsorbed [facility] 04-27-2020 influenza, injectabl e, quadrivalent, preservative free [facility] 04-27-2020 influenza virus vacc ine, unspecified formulation [id number] [facility] Work Phone: 04-26-2020 influenza quadrivale nt split vaccine (FLUZONE;FLUARIX;FLULAVAL ;AFLURIA) injection 0.5 mL [facility] 04-26-2020 diphtheria, tetanus toxoids and acellular pertussis vaccine, unspecified formulation [facility] , [place] 12-08-2011 varicella virus vaccine [id number] 1 [facility] Work Phone: Payers Date Payer Category Payer Medicaid [employer] [place] [id number] 2020-Present [phone] [address] [address] [place] [address] Medicaid [id number] 2020 Medicaid (Managed Care) 1.2. [id number] 2020 [employer] ( and others) [facility] [id number] 2020-Present [address] [place] [address] [id number]. [id number] 1999 Unknown [id number] 2.16.840.1.027728.3.579.2. 593 1999 Unknown [id number] 2.16.840.1.066516.3.579.2. 593 1999 Unknown [id number] 2.16.840.1.120335.3.579.2. 356 1999 Unknown [id number] 2.16.840.1.524372.3.579.2. 356 1999 Unknown [id number] 2.16.840.1.845278.3.579.2. 727 1999 Unknown [id number] 2.16.840.1.015135.3.579.2. 9 1999 Unknown [id number] 2.16.840.1.981414.3.579.2. 9 1999 Unknown [id number] 2.16.840.1.272160.3.579.2. 1258 1999 Unknown [id number] 2.16.840.1.910087.3.579.2. 9 1999 Unknown [id number] 2.16.840.1.693571.3.579.2. 1258 1999 Unknown [id number] 2.16.840.1.236667.3.579.2. 9 1999 Unknown [id number] 2.16.840.1.351957.3.579.2. 1258 1999 Unknown [id number] 2.16.840.1.996270.3.579.2. 9 1999 Unknown [id number] 2.16.840.1.999648.3.579.2. 1258 1999 Unknown [id number] 2.16.840.1.603383.3.579.2. 1258 1999 Unknown [id number] 2.16.840.1.236779.3.579.2. 1258 1999 Unknown [id number] 2.16.840.1.233809.3.579.2. 9 1999 Unknown [id number] 2.16.840.1.341773.3.579.2. 1259 1959 Unknown [id number] Social History Date Type Detail Facility Start: 04-28-2020 End: 10-26-2023 Tobacco smoking status NHIS Never smoker [facility] Start: 04-28-2020 End: 10-26-2023 Tobacco use and exposure Never used [facility] Start: 04-28-2020 End: 12-07-2024 Alcohol intake Ex-drinker (finding) [employer] [facility] [facility] Start: 1999 Sex Assigned At Not on file [facility] Start: 10-28-2021 End: 08-16-2024 Exposure to SARS-CoV-2 (event) [facility] Comment on above: denies Start: 10-26-2023 End: 03-08-2024 Sex Assigned At Female [facility] Tobacco smoking status No Smoking Status Entered [facility] Start: 10-26-2023 End: 03-08-2024 History of Social function [facility] Start: 10-29-2022 Alcohol Comment caffeine: rarely [facility] Start: 1999 Sex assigned at Female [facility] Start: 10-19-2022 Gender identity Identifies as female gender (finding) [facility] Start: 05-18-2024 [facility] Tobacco smoking status NHIS Tobacco smoking consumption unknown [facility] Work Phone: Functional Status Date Assessment Result Facility 04-19-2024 Functional Status N/A [facility] 10-14-2022 Functional Status N/A [facility] 12-19-2021 Functional Status N/A [facility] 11-01-2021 Functional Status N/A [facility] Clinical Notes 04-28-2020 to 12-22-2024 CODY Dumont - 12/22/2024 2:00 PM Maida Costello LPN - 12/08/2024 11:30 AM CODY Eisenberg - 11/22/2024 11:40 AM CODY Eisenberg - 10/25/2024 2:30 PM Tina Coreas LPN - 09/27/2024 2:30 PM EDT Note Date & Type Note Facility 12-22-2024 History of Presen t illness Narrative Reason for Appointment: Patient ID: Anand Herrera is a 24 y.o. female who presents for Routine Visit Patient presents today for Return OB appointment. MEDICATIONS Current Outpatient Medications Medication Instructions Ferrous Sulfate (IRON PO) 1 tablet, Oral, Daily RT MV-Min-Fe Fum-FA-DHA ( 1 PO) 1 each, Daily Progesterone 200 mg, Vaginal, Nightly, Insert suppository vaginally every night at bedtime until 12 weeks gestation Vyvanse 40 mg, Daily ALLERGIES No Known Allergies PROBLEMS Active Ambulatory Problems Diagnosis Date Noted No Active Ambulatory Problems Resolved Ambulatory Problems Diagnosis Date Noted No Resolved Ambulatory Problems Past Medical History: Diagnosis Date Pre-eclampsia ([facility]) HISTORY PAST MEDICAL HISTORY SOCIAL HISTORY Past Medical History: Diagnosis Date Pre-eclampsia ([facility]) Social History Tobacco Use Smoking [...] Vitals: Estimated body mass index is 30.57 kg/m as calculated from the following: Height as of 10/26/23: 5' 6 . Weight as of this encounter: 189 lb 6.4 oz. BP: 112/68 Patient's last menstrual period was 05/04/2024. ASSESSMENT & PLAN ICD-10-CM 1. Third trimester ([facility]) Z34.93 2. 33 weeks gestation of ([facility]) Z3A.33 3. Amniotic band syndrome Q79.8 US [...] of: CODY Dumont documented in this encounter [facility] 12-08-2024 History of Presen t illness Narrative Reason for Appointment: Patient ID: Anand Herrera is a 24 y.o. female who presents for Routine Visit Patient presents today for Return OB appointment. MEDICATIONS Current Outpatient Medications Medication Instructions Ferrous Sulfate (IRON PO) 1 tablet, Oral, Daily RT MV-Min-Fe Fum-FA-DHA ( 1 PO) 1 each, Daily Progesterone 200 mg, Vaginal, Nightly, Insert suppository vaginally every night at bedtime until 12 weeks gestation Vyvanse 40 mg, Daily ALLERGIES No Known Allergies PROBLEMS Active Ambulatory Problems Diagnosis Date Noted No Active Ambulatory Problems Resolved Ambulatory Problems Diagnosis Date Noted No Resolved Ambulatory Problems Past Medical History: Diagnosis Date Pre-eclampsia ([facility]) HISTORY PAST MEDICAL HISTORY SOCIAL HISTORY Past Medical History: Diagnosis Date Pre-eclampsia ([facility]) Social History Tobacco Use Smoking [...] Constitutional: Appearance: Normal appearance. She is well-developed. Cardiovascular: Rate and Rhythm: Normal rate and [...] nursing note reviewed. Exam conducted with a tissue technician present. Vitals: Estimated body mass index is 29.58 kg/m as calculated from the following: Height as of 10/26/23: 5' 6 . Weight as of this encounter: 183 lb 4 oz. BP: 122/66 Patient's last menstrual period was 05/04/2024. ASSESSMENT & PLAN ICD-10-CM 1. Third trimester ([facility]) Z34.93 2. 31 weeks gestation of ([facility]) Z3A.31 Patient presents today for a routine obstetrics appointment. Patient is currently 31w1d with a Estimated Date of Delivery: 02/08/25. Patient desires to have tubal ligation at time of on 02/01/25. Patient to return to clinic in 2-3 weeks for routine OB care. Documented by Rose Costello LPN on behalf of: Marco A Greene DO documented in this encounter [facility] 11-22-2024 History of Presen t illness Narrative Reason for Appointment: Patient ID: Anand Herrera is a 24 y.o. female who presents for Routine Visit Patient presents today for Return OB appointment. MEDICATIONS Current Outpatient Medications Medication Instructions Ferrous Sulfate (IRON PO) 1 tablet, Oral, Daily RT MV-Min-Fe Fum-FA-DHA ( 1 PO) 1 each, Daily Progesterone 200 mg, Vaginal, Nightly, Insert suppository vaginally every night at bedtime until 12 weeks gestation Vyvanse 40 mg, Daily ALLERGIES No Known Allergies PROBLEMS Active Ambulatory Problems Diagnosis Date Noted No Active Ambulatory Problems Resolved Ambulatory Problems Diagnosis Date Noted No Resolved Ambulatory Problems Past Medical History: Diagnosis Date Pre-eclampsia ([facility]) HISTORY PAST MEDICAL HISTORY SOCIAL HISTORY Past Medical History: Diagnosis Date Pre-eclampsia ([facility]) Social History Tobacco Use Smoking status: Never [...] reviewed. Vitals: Estimated body mass index is 29.34 kg/m as calculated from the following: Height as of 10/26/23: 5' 6 . Weight as of this encounter: 181 lb 12.8 oz. BP: 112/66 Patient's last menstrual period was 05/04/2024. ASSESSMENT & PLAN ICD-10-CM 1. Size of fetus inconsistent with dates in second trimester ([facility]) O26.842 US OB follow up transabdominal approach 2. Second trimester ([facility]) Z34.92 POCT urinalysis dipstick manually resulted 3. 28 weeks gestation of ([facility]) Z3A.28 POCT urinalysis dipstick manually resulted Return OB: Patient presents today for a routine obstetrics appointment. Patient is currently 28w6d . Patient states she is doing well but has complaints of being tired due to current . Patient has verbalizes frequent movement. labor precautions was discussed/given and patient was instructed to perform kick counts three times a day. Orders Placed This Encounter Procedures US OB follow up transabdominal approach POCT urinalysis dipstick manually resulted Follow Up: Patient is to return to office in 2 week for routine OB appointment. Documented by CODY Dumont on behalf of: Marco A Greene DO documented in this encounter [facility] 10-25-2024 History of Presen t illness Narrative Reason for Appointment: Patient ID: Anand Herrera is a 24 y.o. female who presents for Routine Visit Patient presents today for Return OB appointment. MEDICATIONS Current Outpatient Medications Medication Instructions Ferrous Sulfate (IRON PO) 1 tablet, Oral, Daily RT MV-Min-Fe Fum-FA-DHA ( 1 PO) 1 each, Daily Progesterone 200 mg, Vaginal, Nightly, Insert suppository vaginally every night at bedtime until 36 weeks gestation Vyvanse 40 mg, Daily ALLERGIES No Known Allergies PROBLEMS Active Ambulatory Problems Diagnosis Date Noted No Active Ambulatory Problems Resolved Ambulatory Problems Diagnosis Date Noted No Resolved Ambulatory Problems Past Medical History: Diagnosis Date Pre-eclampsia ([facility]) HISTORY PAST MEDICAL HISTORY SOCIAL HISTORY Past Medical History: Diagnosis Date Pre-eclampsia ([facility]) Social History Tobacco Use Smoking [...] Vitals: Estimated body mass index is 28.25 kg/m as calculated from the following: Height as of 10/26/23: 5' 6 . Weight as of this encounter: 175 lb. BP: 110/62 Patient's last menstrual period was 05/04/2024. ASSESSMENT & PLAN ICD-10-CM 1. Second trimester ([facility]) Z34.92 POCT urinalysis dipstick manually resulted 2. 24 weeks gestation of ([facility]) Z3A.24 3. HSV infection B00.9 4. H/O pre-eclampsia in prior , currently ([facility]) O09.299 5. Diabetes mellitus screening Z13.1 CBC Glucose tolerance, 1 hour CBC Glucose tolerance, 1 hour 6. Encounter for anatomic survey ([facility]) Z36.89 US OB limited 1+ fetuses Return [...] US to have obtained in our office /[facility] due to the spine not seen [...] of: CODY Dumont documented in this encounter [facility] 09-27-2024 History of Presen t illness Narrative Reason for Appointment: Patient ID: Anand Herrera is a 23 y.o. female who presents for Routine Visit Patient presents today for Return OB appointment. MEDICATIONS Current Outpatient Medications Medication Instructions Ferrous Sulfate (IRON PO) 1 tablet, Oral, Daily RT MV-Min-Fe Fum-FA-DHA ( 1 PO) 1 each, Daily Progesterone 200 mg, Vaginal, Nightly, Insert suppository vaginally every night at bedtime until 36 weeks gestation Vyvanse 40 mg, Daily ALLERGIES No [...] appearance. She is well-developed. Genitourinary: Vulva normal. Cardiovascular: Rate and Rhythm: Normal rate and [...] nursing note reviewed. Exam conducted with a tissue technician present. Vitals: Estimated body mass index is 27.12 kg/m as calculated from the following: Height as of 10/26/23: 5' 6 . Weight as of this encounter: 168 lb. BP: 110/70 Patient's last menstrual period was 05/04/2024. ASSESSMENT & PLAN ICD-10-CM 1. Second trimester Z34.92 POCT urinalysis dipstick manually resulted 2. 20 weeks gestation of Z3A.20 3. Exposure to STD Z20.2 SURESWAB(R) ADVANCED VAGINITIS PLUS, TMA CHLAMYDIA TRACHOMATIS (GENITO/STI) Neisseria gonorrhea DNA probe, direct Patient presents today for a routine obstetrics appointment. Patient is currently 20w6d with a Estimated Date of Delivery: 02/08/25. Cultures obtained without difficulty. Pt to return in 4 weeks. Documented by Hillary Coreas LPN on behalf of: Marco A Greene DO documented in this encounter [facility] 08-29-2024 History of Presen t illness Narrative Reason for Appointment: Patient ID: Anand Herrera is a 23 y.o. female who presents for Routine Visit Patient presents today for Return OB appointment. MEDICATIONS Current Outpatient Medications Medication Instructions MV-Min-Fe Fum-FA-DHA ( 1 PO) 1 each, Daily Vyvanse 40 mg, Daily ALLERGIES No [...] Constitutional: Appearance: Normal appearance. She is well-developed. Cardiovascular: Rate and Rhythm: Normal rate and [...] nursing note reviewed. Exam conducted with a tissue technician present. Vitals: Estimated body mass index is 25.95 kg/m as calculated from the following: Height as of 10/26/23: 5' 6 . Weight as of this encounter: 160 lb 12.8 oz. BP: 114/68 Patient's last menstrual period was 05/04/2024. ASSESSMENT & PLAN ICD-10-CM 1. Second trimester Z34.92 POCT urinalysis dipstick manually resulted Alpha fetoprotein, maternal Alpha fetoprotein, maternal 2. 16 weeks gestation of Z3A.16 POCT urinalysis dipstick manually resulted Alpha fetoprotein, maternal Alpha fetoprotein, maternal 3. STD exposure Z20.2 CANCELED: CHLAMYDIA TRACHOMATIS (GENITO/STI) CANCELED: Neisseria gonorrhea DNA probe, direct 4. Vaginal discharge N89.8 CANCELED: SURESWAB(R) ADVANCED VAGINITIS PLUS, TMA Return OB: Patient presents today for a routine obstetrics appointment. Patient is currently 16w5d . Patient states she is doing well but has complaints of being tired due to current . Patient has verbalizes frequent movement. labor precautions was discussed/given and patient was instructed to perform kick counts three times a day. Orders Placed This Encounter Procedures Alpha fetoprotein, maternal POCT urinalysis dipstick manually resulted Follow Up: Patient is to return to office in 4 week for routine OB appointment. Patient to begin progesterone suppositories and this will be sent to the pharmacy today. Patient declined cultures today because of small children with her and time constraints. She is going to obtain cultures at next visit. Patient has been evaluated by MFM given hx of amniotic band and current medication use of Vyvance. Documented by Elvi Gerber NP on behalf of: Marco A Greene DO documented in this encounter [facility] 08-01-2024 History of Presen t illness Narrative Reason for Appointment: Patient ID: Anand Herrera is a 23 y.o. female who presents for Routine Visit Patient presents today for Return OB appointment. MEDICATIONS Current Outpatient Medications Medication Instructions MV-Min-Fe Fum-FA-DHA ( 1 PO) 1 each, Daily Vyvanse 40 mg, Daily ALLERGIES No [...] Constitutional: Appearance: Normal appearance. She is well-developed. Cardiovascular: Rate and Rhythm: Normal rate and [...] nursing note reviewed. Exam conducted with a tissue technician present. Vitals: Estimated body mass index is 26.95 kg/m as calculated from the following: Height as of 10/26/23: 5' 6 . Weight as of this encounter: 167 lb. BP: 120/70 Patient's last menstrual period was 05/04/2024. ASSESSMENT & PLAN ICD-10-CM 1. 12 weeks gestation of Z3A.12 POCT urinalysis dipstick manually resulted 2. First trimester Z34.91 POCT urinalysis dipstick manually resulted Return OB: Patient presents today for a routine obstetrics appointment. Patient is currently 12w5d . Patient states she is doing well but has complaints of being tired due to current . Patient with history amniotic band syndrome and currently on vyvanse 40mg daily. Will have referral to [facility]. She will begin progesterone at 16 weeks. Orders Placed This Encounter Procedures POCT urinalysis dipstick manually resulted Follow Up: Patient is to return to office in 4 week for routine OB appointment. Documented by Elvi Gerber NP on behalf of: Marco A Greene DO documented in this encounter [facility] 05-19-2024 History of Presen t illness Narrative [...] A Greene DO documented in this encounter [facility] 04-19-2024 Evaluation + Plan note Extrac nino from: Title:ED Note Author:Olga Davison, Amos De Oliveira te:04/19/24 1. Ear pain, right (H92.01: Otalgia, right ear) 2. Upper respiratory infection (J06.9: Acute upper respiratory infection, unspecified) [facility] 12-24-2024 Hospital Discharge instructions Patient Education [...] medicines to help relieve symptoms, such as: Qvfe-vsl-iofpvwz cold medicines. Cough suppressants. Coughing is a [...] and other clear broths. General instructions Take bzci-bif-fdmmbam and prescription medicines only as told by [...] and water are not available, use hand auto repair technician. Avoid touching your mouth, face, eyes, or [...] provider. Document Revised: 11/13/2021 Document Reviewed: 11/13/2021 [employer] - The Simple, Fast and Elegant Tablet Sales App Patient Education 2023 [employer]. 04/19/2024 01:34:08 Earache, Adult Earache, Adult An [...] instructions at home: Medicines Take or apply qoqc-ruv-genddrx and prescription medicines only as told by [...] provider. Document Revised: 08/25/2022 Document Reviewed: 08/25/2022 [employer] Simple, Fast [employer] Elegant Tablet Sales App Patient Education 2023 [employer]. Follow Up Care 04/19/2024 01:06:30 With:Kathy Mccall Address: [address], [place] [place] [id number]- Business (1) When:04/22/2024 Comments:Return to the emergency room if your pain recurs or any new symptoms. [facility] 12-24-2024 NoteED Patient Education Note ENT [...] at home: Medicines ??? Take or apply swwg-rkk-obydsvw and prescription medicines only as told by [...] provider. Document Revised: 08/25/2022 Document Reviewed: 08/25/2022 Elsevier Patient Education ? 2023 [employer] The Simple, Fast and Elegant Tablet [employer] Infectious Disease Upper Respiratory Infection, Adult [...] your health care provide (more content not included)...[facility]11-12-2024 History of Present illness Narrative* Hillary Coreas, CASTING REPAIRER - 03/08/2024 3:00 PM EST Reason for [...] nursing note reviewed. Exam conducted with a tissue technician present. Vitals: Estimated body mass index is [...] Marco A Greene DO [id number] Hospital Discharge instructions Patient Education 10/14/2022 13:55:20 Sutures, [place], or Adhesive Wound Closure, Ewmu-dv-Chfx Sutures, [place], or Adhesive Wound Closure Doctors use stitches [...] ?Hold the edges of the wound together. ?[place] the glue onto your skin. You may [...] skin reaction that can lead to infection. [place] are often used to close cuts from [...] Follow these instructions at home: Medicines Take tkrx-dcy-kegerxm and prescription medicines only as told by [...] cannot use soap and water, use hand auto repair technician. Do not try to take off or [...] provider. Document Revised: 08/19/2021 Document Reviewed: 08/19/2021 [employer] - The Simple, Fast and Elegant Tablet Sales App Patient Education 2022 [employer]. Follow Up Care 10/14/2022 12:20:41 With:Baljit Link Address: [facility] [address] [facility] [place] [address]- Business (1) When:10/17/2022 13:48:24 [facility]08-25-2022 Evaluation + Plan noteExtracted from: Title:ED [...] w/ Auto Diff eGFR PT & PTT [facility]08-25-2022 Hospital Discharge instructions Patient Education 12/19/2021 04:06:21 Dysfunctional Uterine Bleeding Dysfunctional Uterine Bleeding Dysfunctional uterine bleeding is abnormal bleeding from the uterus. Dysfunctional uterine bleedingincludes: A menstrual period that comes earlier or later than usual. A menstrual period that is doll wig maker rooted hair or heavier than usual, or has large [...] to keep your urine pale yellow. ?Take vday-imw-qkfqyft or prescription medicines. ?Eat foods that are high in fiber, such as beans, whole grains, and fresh fruits and vegetables. ?Limit foods that are high in fat and processed sugars, such as fried or sweet foods. Medicines Take kyag-iiz-mujxcfg and prescription medicines only as told by [...] 04/10/2001 Document Revised: 09/22/2018 Document Reviewed: 09/22/2018 [employer] - The Simple, Fast and Elegant Tablet Sales App Patient Education 2020 [employer]. Follow Up Care 12/19/2021 01:46:43 With:Zac Martinez Address: [address] [place], [place] [address] [address] Business (1) When:12/22/2021 [facility]07-21-2022 NoteHNO ID: [id number] Author: Grover Amaral, DIXON Service: ? Author Type: CLAIMS EXAMINER Type: Progress Notes Filed: 11/14/2021 2:32 PM [...] Grover Amaral, OD November 14, 2021 2:29 [facility]07-21-2022 History of Present illness Narrative* [...] with the patient. Grover Amaral OD November 14, 2021 2:29 PM [facility] NoteHNO ID: [id number] Author: Grover Amaral OD Service: ? Author Type: CLAIMS EXAMINER Type: Progress Notes Filed: 11/07/2021 4:03 PM [...] Grover Amaral, DIXON November 07, 2021 4:03 [facility]07-14-2022 Miscellaneous Notes* Addendum Note - Grover Amaral OD - 11/07/2021 4:06 PM EDT Addended by: GROVER AMARAL on: 11/07/2021 04:06 PM Modules accepted: Orders [facility] History of Present illness Narrative* Grover Amaral [...] 07, 2021 4:03 PM [facility] Evaluation + Plan note Extracted from: Title:ED Note Author:Keanu Kamara DO Date: Allergic reaction (T78.40XA: Allergy, unspecified, initial encounter) Orders: predniSONE, 60 mg = 3 tab(s), Oral, Daily, X 5 day(s), # 15 tab(s), Refills(s) 0, Pharmacy: [facility]/pharmacy #[id number], 165, cm, 11/01/21 8:11:00 EDT, Height/Length Dosing, 63, kg, 11/01/21 8:11:00 EDT, Weight Dosing [facility]07-08-2022 Hospital Discharge instructions Patient Education 11/01/2021 [...] care provider who specializes in treating allergies (spinning frame changer) or eye conditions (weaver narrow fabrics) for tests to confirm the diagnosis. You [...] Eye drops. These may be prescription or oulg-zai-yugotyx. There are several different types. You may [...] known allergens whenever possible. Take or apply hlbi-ghr-qanuomv and prescription medicines only as told by [...] 07/04/2003 Document Revised: 03/26/2018 Document Reviewed: 10/24/2016 [employer] - The Simple, Fast and Elegant Tablet Sales App Patient Education 2020 [employer]. Follow Up Care 11/01/2021 08:05:40 With:Johanna Huynh Address: [address] [address]- Business (1) When:11/04/2021 08:24:58 Comments:Call today to arrange for follow-up appointment on Thursday or Thursday. Return to the ED with new or worsening symptoms as discussed. With:Baljit Watts Address: [address] [place] [address]- Business (1) When:11/04/2021 08:24:46 Comments:Call the office [...] you develop any new or worsening symptoms. [facility]05-25-2022 Hospital Discharge instructions Patient Education 09/18/2021 [...] may be recommended to support your foot. Nblo-ixg-xqduekz anti-inflammatory medicines may also be recommended for [...] sitting or lying down. General instructions Take yrze-shn-phmkilc and prescription medicines only as told by [...] 02/02/2007 Document Revised: 12/14/2018 Document Reviewed: 12/14/2018 [employer] - The Simple, Fast and Elegant Tablet Sales App Patient Education 2020 [employer] Follow Up Care 09/18/2021 09:48:23 With:Baljit Link Address: [facility] [address], [facility] [address] [facility] [place] [address]- Business (1) When:09/21/2021 11:47:11 Comments:Return to the emergency room if your pain gets worse or any new symptom [facility]05-25-2022 Evaluation + Plan noteExtracted from: Title:ED Note Author:Olga Davison, Amos De Oliveira te:09/18/21 1. Contusion of left foot (S 90.32XA: Contusion of left foot, initial encounter) Orders: Post-op Shoe XR Foot 3+ Views Left [facility]01-02-2021 NoteDepartment of Obstetrics and Gynecology Delivery Discharge Summary Admission on 04/25/2020 1:08 PM Reason for admission: 04/25/2020 Intrapartum Course: N/A 30w6d PC-01 Indications for Delivery: Was patient delivered between 37w0d - 96s3kwmibj? NO Surgical Operations & Procedures: Date of delivery: 04/26/2020 Delivery Type: without labor Anesthesia: Spinal anesthesia Laceration(s): n/a Delivery Complications: none EBL: 700 cc Pertinent Findings & Procedures: Information for the patient's : Ree Herrera [[id number]] female Weight: 2 lb 12.3 oz (1.256 kg) Apgars: Information for the patient's : Ree Herrera [[id number]] One Minute : 6 Five Minute : 7 Course: Magnesium sulfate and Procardia for PEWSF : Female infant Blood Type/Rh: O POS Antibody Screen: Antibody Screen Date Value Ref Range Status 04/25/2020 NEG NA Final Rubella: No results found for: RUBELLAIGG Contraception: will be discussed with her provider at [place] : no VTE Prophylaxis: Not Indicated Meds: Anand Herrera Home Medication Instructions RANDA:[id number] Printed on:04/28/20 1230 Medication Information ferrous sulfate (IRON 325) 325 [...] in [address] Wray in [place]. Condition on discharge: Stable Discharge to: [...] know - She will follow with her DIELECTRIC PRESS OPERATOR in [place] - I will call Dr. 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 [facility]* Diagnosis Well woman exam with routine gynecological exam Routine gynecological examination documented in [facility] encounter [facility]* Diagnosis control counseling documented in this encounter [facility]* Diagnosis 12 weeks gestation of First trimester state, incidental Amniotic band syndrome Other problem associated with amniotic cavity and membranes, unspecified as to episode of care documented in this encounter [facility]* Diagnosis as incidental finding ([facility]) documented in this encounter [facility] Work Phone: Evaluation note* Diagnosis History of miscarriage- Primary Personal history of other genital system and obstetric disorders Second trimester state, incidental 16 weeks gestation of STD exposure Vaginal discharge Leukorrhea, not specified as infective documented in this encounter [facility]* Diagnosis Second trimester state, incidental 20 weeks gestation of Exposure to STD History of miscarriage Personal history of other genital system and obstetric disorders documented in this encounter [facility] HealthcareEvaluation note* Diagnosis Second trimester ([facility]) state, incidental 24 weeks gestation of ([facility]) HSV infection Herpes simplex without mention of complication H/O pre-eclampsia in prior , currently ([facility]) Diabetes mellitus screening Screening for diabetes mellitus Encounter for anatomic survey ([facility]) Encounter for anatomic survey documented in this encounter [facility] HealthcareEvaluation note* Diagnosis Size of fetus inconsistent with dates in second trimester ([facility])- Primary Second trimester ([facility]) state, incidental 28 weeks gestation of ([facility]) Mastitis Inflammatory disease of breast documented in this encounter [facility] HealthcareEvaluation note* Diagnosis Third trimester ([facility]) state, incidental 31 weeks gestation of ([facility]) Screening, , for anatomic survey ([facility]) Encounter for anatomic survey documented in this encounter [facility] HealthcareEvaluation note* Diagnosis Third trimester ([facility]) state, incidental 33 weeks gestation of ([facility]) Amniotic band syndrome Other problem associated with amniotic cavity and membranes, unspecified as to episode of care History of miscarriage Personal history of other genital system and obstetric disorders documented in this encounter [facility] HealthcareHospital course Narrative No data available for this section [facility] No data available for this section [facility] No data available for this section [facility] N[facility]ative* Imaging (Routine) - Pending Review Specialty Diagnoses / Procedures Referred By Joseph hoff Referred To Contact Radiology Diagnoses as incidental finding ([facility]) Procedures US OB limited 1+ fetuses US MAC OB imaging order Marco A Greene DO [address] [facility], [place] [address] Phone: tel: fax: Referral ID Status Reason Start Date Expiration Date Visits Requested Visits Authorized [id number] Pending Review Perform Procedure 08/03/2024 08/03/2025 1 1 [facility] Work Phone: Summary Purpose Family History No Family History [...] 04/26/2020 1:27 AM Hospital Course * Junior aKt MD - 04/28/2020 12:38 PM EST Department of Obstetrics and Gynecology Delivery Discharge Summary Admission on 04/25/2020 1:08 PM Reason for admission: 04/25/2020 Intrapartum Course: N/A 30w6d PC-01 Indications for Delivery: Was patient delivered between 37w0d - 64g2znfhtf? NO Surgical Operations & Procedures: Date of delivery: 04/26/2020 Delivery Type: without labor Anesthesia: Spinal anesthesia Laceration(s): n/a Delivery Complications: none EBL: 700 cc Pertinent Findings & Procedures: Information for the patient's : Ree Herrera [[id number]] female Weight: 2 lb 12.3 oz (1.256 kg) Apgars: Information for the patient's : Ree Herrera [[id number]] One Minute : 6 Five Minute : 7 Course: Magnesium sulfate and Procardia for PEWSF Infant: Female Blood Type/Rh: O POS Antibody Screen: Antibody Screen Date Value Ref Range Status 04/25/2020 NEG NA Final Rubella: No results found for: RUBELLAIGG Contraception: will be discussed with her provider at [place] : no VTE Prophylaxis: Not Indicated Meds: Anand Herrera Home Medication Instructions RANDA:[id number] Printed on:04/28/20 1238 Medication Information ferrous sulfate [...] in [address] Wray in [place]. Condition on discharge: Stable Discharge to: [...] know - She will follow with her DIELECTRIC PRESS OPERATOR in [place] - I will call Dr. Wray answering service at [phone] to update him with her condition, medications, [...] allowing us to care of you at [facility]. This time can be one of [...] over the next few weeks. Bleeding may fish bait picker and then decrease again around 7-10 [...] avoid constipation you may take a mild nszp-qrg-ycietoc stool softener (such as colace) as recommended [...] clean your hands with an alcohol-based hand auto repair technician that contains at least 60% alcohol. Clean your hands often Wash your hands often with soap and water for at least 20 seconds, especially after blowing your nose, coughing, or sneezing; going to the bathroom; and before eating or preparing food. If soap and water are not readily available, use an alcohol-based hand auto repair technician with at least 60% alcohol, covering all [...] healthcare provider to call the local or [facility]. Persons who are placed underactive [...] isolation precautions should be made on a ssnf-pj-qucr basis, in consultation with healthcare providers and [...] respiratory tract signs and symptoms. Ways to [place] with Anxiety & Stress It is normal [...] an illness that was first found in [facility], in March 2019. It [...] seen in people before. This virus spreads pdxrun-tk-rewrdc through droplets from coughing and sneezing. It [...] water aren't available, use an alcohol-based hand auto repair technician. Call 911 anytime you think you may [...] of: July 27, 2019 Content Version: 12.4 [employer]. Care instructions adapted under license by your healthcare professional. If you have questions about a medical condition or this instruction, always ask your healthcare professional. [employer], [facility] disclaims any warranty or liability for your use of this information. General Recommendations for Routine Cleaning and Disinfection of Households Community members can practice routine cleaning of frequently touched surfaces (for example: tables, doorknobs, light switches, handles, desks, toilets, faucets, sinks) with household industrial spraypainter and EPA-registered disinfectants that are appropriate for [...] appropriate. These supplies include tissues, paper towels, industrial spraypainter and EPA-registered disinfectants (see list link at [facility] website). ? If a separate bathroom is [...] be used for other purposes. Consult the paving block cutter's instructions for cleaning and disinfection products used. [...] used if appropriate for the surface. Follow paving block cutter's instructions for application and proper ventilation. Check [...] o Products with EPA-approved emerging viral pathogens [facility] iconexternal icon are expected to be effective against COVID-19 based on data for harder to kill viruses. Follow the paving block cutter's instructions for all cleaning and disinfection products (e.g., concentration, application method and contact time, etc.). Soft (porous) surfaces such as carpeted floor, rugs, and drapes Remove visible contamination if present and clean with appropriate industrial spraypainter indicated for use on these surfaces. After cleaning: Launder items as appropriate in accordance with the paving block cutter's instructions. If possible, launder items using the [...] items as appropriate in accordance with the paving block cutter's instructions. If possible, launder items using the warmest appropriate water setting for the items and dry items completely. Dirtylaundry from an ill person can be washed with other people's items. o Clean and disinfect clothes hampers according to guidance above for surfaces. If possible, consider placing a waterproof bag sewer that is either disposable (can be thrown away) or can be laundered. [facility] has a list of EPA approved cleaning products on their website - https://www.cdc.gov/coronavirus/ 2019-ncov/community/home/cleaning-disinfection.html https://www.Keldeal/Fyykm-Kvxjmtxtmes-Rrwigfoy-Products-List.pdf xAd with delivery and fish bait picker services: [employer]: Free fish bait picker at locations Delivery is $12.95 a month Website - [employer] [place]: Physician Office Nurse $2.95 (1st order is free) Delivery is $14.95 Website [employer]: acute care occupational therapist is free Delivery is $5.95 [employer]: acute care occupational therapist is $4.95 Delivery is $9.95 Website [employer]: acute care occupational therapist is $4.95 Delivery is $9.95 Website [employer]: Can be ordered for delivery and fish bait picker with [employer] Website - www.[employer]: Free deliver for first 3 orders of $35 or more Website aldistartuply Will deliver from [employer], [employer], [employer], and [employer]. Annual membership is $99 Monthly membership is [...] 134/80 Pulse: 75 82 89 84 Resp: 16 16 Temp: 97.8 F (36.6 C) [...] PreEwSF - severe range Bps at [place], acutely treated with 5mg IV labetalol, 100mg [...] know - She will follow with her DIELECTRIC PRESS OPERATOR in [place] - I will call Dr. Wray answering service at [phone] to update him with her condition, medications, [...] disturbances, headaches, and /or epigastric pain. Vitals: 04/26/20201404/27/20 0023 04/27/20 0448 04/27/20 0803 BP: 124/74 [...] MD - 04/25/2020 11:32 PM EST MFM neon glass blower physician tracing review from earlier admission with [...] concern for concealed abruption. I did not intake counselor the patient directly of the R/B/A [...] day, as when she first arrived to [facility] more moderate than minimal. Patient [...] non scheduled section with consent signed at 1754. documented in this encounter Assessments Diagnosis Threatened labor, antepartum Threatened premature labor, antepartum Pre-eclampsia in third trimester Mild or unspecified pre-eclampsia, antepartum Acute on chronic blood loss anemia Additional Source Comments INFORMATION SOURCE (unrecogn ized section and content) DATE CREATED AUTHOR 04/18/2020 [facility] DATE CREATED AUTHOR AUTHOR'S ORGANIZ ATION 02/28/2021 [facility] DATE CREATED AUTHOR AUTHOR'S ORGANIZ ATION 11/16/2021 [facility] DATE CREATED AUTHOR AUTHOR'S ORGANIZ ATION 09/10/2022 [facility] DATE CREATED AUTHOR AUTHOR'S ORGANIZ ATION 11/13/2022 [facility] DATE CREATED AUTHOR AUTHOR'S ORGANIZ ATION 04/22/2024 [facility] DATE CREATED AUTHOR AUTHOR'S ORGANIZ ATION 12/24/2024 [facility] d[facility] Specialists EPIC Reason for Visit (unrecogniz ed section and content) Reason Comments Hypertension Reason Comments Eye Infection Both Eyes Reason Comments Conjunctivitis Follow Up Reason Comments Well Women Visit Reason Comments Contraception discuss cycles Reason Comments Routine Visit Reason Comments Routine Visit Ordered Prescriptions (unrec ognized section and content) [...] Care Team (unrecognized sect ion and content) Supply Chain Generalist Relationship Specialty Start Date End Date Baljit Watts MD [address] [place] [address] PCP - General Family Practice 11/07/21 Supply Chain Generalist Relationship Specialty Start Date End Date Baljit Watts MD [address] [place] [address] PCP - General Family Practice 11/07/21 Supply Chain Generalist Relationship Specialty Start Date End Date Link, MD Baljit [address] [place] [address] PCP - General Family Medicine 10/20/22 Supply Chain Generalist Relationship Specialty Start Date End Date Link, MD Baljit [address] [place] [address] PCP - General Family Medicine 10/20/22 Supply Chain Generalist Relationship Specialty Start Date End Date LinkBaljit MD [address] [place] [address] PCP - General Family Medicine 10/20/22 Supply Chain Generalist Relationship Specialty Start Date End Date LinkBaljit MD [address] [place] [phone] PCP - General Family Medicine 10/20/22 Supply Chain Generalist Relationship Specialty Start Date End Date LinkBaljit MD PCP - General Family Medicine 10/20/22 Supply Chain Generalist Relationship Specialty Start Date End Date LinkBaljit MD PCP - General Family Medicine 10/20/22 Supply Chain Generalist Relationship Specialty Start Date End Date LinkBaljit MD PCP - General Family Medicine 10/20/22 Supply Chain Generalist Relationship Specialty Start Date End Date LinkBaljit MD PCP - General Family Medicine 10/20/22 Supply Chain Generalist Relationship Specialty Start Date End Date LinkBaljit MD PCP - General Family Medicine 10/20/22 Supply Chain Generalist Relationship Specialty Start Date End Date Link, MD Baljit PCP - General Family Medicine 10/20/22 Supply Chain Generalist Relationship Specialty Start Date End Date Link, MD Baljit PCP - General Family Medicine 10/20/22 Supply Chain Generalist Relationship Specialty Start Date End Date Link, MD Baljit PCP - General Family Medicine 10/20/22 Supply Chain Generalist Relationship Specialty Start Date End Date Link, MD Baljit PCP - General Family Medicine 10/20/22 Supply Chain Generalist Relationship Specialty Start Date End Date Link, MD Baljit PCP - General Family Medicine 10/20/22 Supply Chain Generalist Relationship Specialty Start Date End Date Link, MD Baljit PCP - General Family Medicine 10/20/22 Source Comments (unrecognize d section and content) In the event this informatio n is protected by the Federal Confidentiality of Alcohol and Drug Abuse Patient Records regulations: The Federal rules restrict any use of the information to criminally investigate or prosecute any alcohol or drug abuse patient.[facility] the event this information is protected by the Federal Confidentiality of Alcohol and Drug Abuse Patient Records regulations: The Federal rules restrict any use of the information to criminally investigate or prosecute any alcohol or drug abuse patient.[facility] FOR RECORDS PERTAINING TO PATIENTS WHO [...] BE BASED ON THE PRIMARY CLINICAL RECORDS. [facility]. provides no warranty or guarantee of the accuracy or completeness of information in this document.
--- OUTSIDE RECORDS SUMMARY | 2024-12-26 08:59 | XMS_ITS | Encounter Summary ---
Author Organization [facility] Address [address] [place] [address] Care Team Providers Care Tinsmith Helper Name Role Phone Link, Baljit PRETTY Primary Care Provider [phone] Encounter Details Date Type Department Care Team (Late Contact Info) Description 03/10/2023 Clinisync Result Encounter [facility] External Department Unsolicited Marco A Greene DO [address], [facility]11 Social History Tobacco Use Types Packs/Day [...] PM EDT Routine [facility] [address] [place] [address] Marco A Greene DO [address], [place] [id number] 03/14/2025 11:00 AM EST Office Visit [facility] [address] [facility] [place] [address] Marco A Greene, [address] [facility] [address] [place] [address] documented as of this encounter Procedures Procedure [...] EST Narrative 03/10/2023 10:23 AM EST The [address] [address] Ultrasound Report Signed Patient: ANAND HERRERA MR#: [id number] : 2000 Acct:[id number] Age/Sex: 22 / F ADM Date: Loc: [facility] Attending Dr: Anita Graves M.D. Ordering Physician: Marco A Greene D.O. Date of Service: 03/10/23 Procedure(s): US OB BPP wo non-stress Accession Number(s): [id number] cc: Marco A Greene D.O.; Physician,Non-Staff [place] The [address] [id number] Patient Name: ANAND HERRERA MRN: [facility]:[id number] date: 2000 Sex: F Assigned Patient Location: [facility] Current Patient Location: [facility] Accession/Order Number: [id number] Exam Date: 03/10/2023 08:45 Report Date: 03/10/2023 [...] Signed By: 03/10/23 1026 DD/ 1023 TD/TT: Qa Architect: Procedure Note Radiology, Radiologist, MD - 03/10/2023 [place] [address] Ultrasound Report Signed Patient: ANAND HERRERA EMR#: [id number] : 2000Acct:[id number] Age/Sex: 22 / FADM Date: Loc: [facility] Attending Dr: Anita Graves M.D. Ordering Physician: Marco A Greene D.O. Date of Service: 03/10/23 Procedure(s): US OB BPP wo non-stress Accession Number(s): [id number] cc: Marco A Greene D.O.; Physician,Non-Staff [place] [address] Patient Name: ANAND HERRERA MRN: [facility]:[id number] date: 2000 Sex: F Assigned Patient Location: [facility] Current Patient Location: [facility] Accession/Order Number: [id number] Exam Date: 03/10/2023 08:45 Report Date: 03/10/2023 [...] M.D. Signed By:03/10/23 1026 DD/ 1023 TD/TT: Qa Architect: Marco A Greene DO [facility] Final Result documented in this encounter Visit Diagnoses Not on filedocumented in this encounter Care Teams Tinsmith Helper Relationship Specialty Start Date End Date Link, MD Baljit PCP - General Family Medicine 10/20/22 documented as of this encounter
--- OUTSIDE RECORDS SUMMARY | 2024-12-26 08:59 | XMS_ITS | Encounter Summary ---
Author Organization [facility] Address [address] [facility] [place] [address] Care Team Providers Care Composition Tile Layer Name Role Phone Link, Baljit PRETTY Primary Care Provider [phone] Encounter Details Date Type Department Care Team (Late Contact Info) Description 03/16/2023 Abstract [facility] [address] [place] [address] Lisa Gleason LPN [address] [place] [place] [address] Social History Tobacco Use Types Packs/Day Years [...] 2:00 PM EDT Routine [facility] [address] [place] [address] Marco A Greene DO [address] [facility] [place] [address] 03/14/2025 11:00 AM EST Office Visit [facility] [address] [place] [address] Marco A Greene, [address] [facility] [address] [place], [place] [phone] documented as of this encounter Visit Diagnoses Not on filedocumented in this encounter Care Teams Composition Tile Layer Relationship Specialty Start Date End Date Link, MD Baljit PCP - General Family Medicine 10/20/22 documented as of this encounter
--- OUTSIDE RECORDS SUMMARY | 2024-12-26 08:59 | XMS_ITS | Encounter Summary ---
Author Organization [facility] Address [address] [place] [address] Care Team Providers Care Broach Operator Name Role Phone Link, Baljit PRETTY Primary Care Provider [phone] Encounter Details Date Type Department Care Team (Late Contact Info) Description 08/16/2024 Abstract [facility] [place] [address] Marco A Greene DO [facility] [address], [place] [address] Social History Tobacco Use Types Packs/Day Years [...] 01/04/2025 2:00 PM EDT Routine [facility] [place] [address] Marco A Greene DO [address], [facility] 03/14/2025 11:00 AM EST Office Visit [facility] [address] [facility] [place] [address] Marco A rGeene DO [address] [facility] [address] [place], [place] [address] documented as of this encounter Visit Diagnoses Not on filedocumented in this encounter Care Teams Broach Operator Relationship Specialty Start Date End Date Link, MD Baljit PCP - General Family Medicine 10/20/22 documented as of this encounter
--- OUTSIDE RECORDS SUMMARY | 2024-12-26 08:59 | XMS_ITS | Encounter Summary ---
Author Organization [facility] Address [address] [place] [address] Care Team Providers Care Electronic Technologist Name Role Phone Link, Baljit Gilbert DO Primary Care Provider [phone] Source Comments In the event this information is protected by the Federal Confidentiality of Alcohol and Drug AbusePatient Records regulations: The Federal rules restrict any use of the information to criminally investigate or prosecute any alcohol or drug abuse patient.[facility] Encounter Details Date Type Department Care Team (Late st Contact Info) Description 11/18/2021 Get Medical Advice Ophthalmology [address] [place] [address] Elmer Sheets, OD [address] [facility] [place] [address] Tobradex Gel Social History Tobacco [...] on filedocumented in this encounter Care Teams Electronic Technologist Relationship Specialty Start Date End Date Link, Baljit Gilbert DO [address] [place] [address] PCP - General Family Medicine 11/07/21 documented as of this encounter
--- OUTSIDE RECORDS SUMMARY | 2024-12-26 08:59 | XMS_ITS | Clinical Summary ---
Author Organization [facility] Address [address] [place] [address] Care Team Providers Care Maintenance Mgr Name Role Phone Link, Baljit Gilbert Primary Care Provider [phone] Allergies No known active allergies Medications predniSONE [...] C Screening 10/08/2017 Cervical Cancer Screening 10/08/2020 Influenza Vaccine (#1) 2024 04/27/2020 DTaP,Tdap,Td Vaccine (8 - Td or Tdap) 04/28/2030 04/28/2020, 12/08/2011, 12/19/2004, Additional history exists Hepatitis B Vaccine Completed 07/27/2002, 12/02/2000, 1999 HPV Vaccine Completed 06/21/2012, 01/25, 12/08/2011 Insurance [employer] [employer] Care Teams Maintenance Mgr Relationship Specialty Start Date End Date Link, Baljit Gilbert DO [address] [place] [address] PCP - General Family Medicine 11/07/21
--- OUTSIDE RECORDS SUMMARY | 2024-12-26 08:59 | XMS_ITS | Encounter Summary ---
Author Organization [facility] Address [address] [place] [address] Care Team Providers Care Decommissioning Well Site Manager Name Role Phone Link, Baljit Gilbert DO Primary Care Provider Source Comments In the event this information is protected by the Federal Confidentiality of Alcohol and Drug AbusePatient Records regulations: The Federal rules restrict any use of the information to criminally investigate or prosecute any alcohol or drug abuse patient.[facility] Encounter Details Date Type Department Care Team (Late st Contact Info) Description 11/14/2021 Get Medical Advice Ophthalmology [address] [place] [address] Elmer Sheets, OD [address] [facility] [place] [address] Appointment Social History Tobacco Use [...] on filedocumented in this encounter Care Teams Decommissioning Well Site Manager Relationship Specialty Start Date End Date Link, Baljit Gilbert DO [address] [place] [address] PCP - General Family Medicine 11/07/21 documented as of this encounter
--- OUTSIDE RECORDS SUMMARY | 2024-12-26 08:59 | XMS_ITS | Clinical Summary ---
Author Organization [facility] Address [address] [place] [address] Care Team Providers Care Coal Wheeler Name Role Phone Unavailable Primary Care Provider Unavailabl e Active Problems Problem Noted Date Diagnosed Date Acute on chronic blood loss anemia 04/27/2020 Immunizations Immunization Administration Dates Next Due Influenza, injectable, quadrivalent, preservativ e free 04/27/2020 Tdap 04/28/2020 Social History Tobacco Use Types Packs/Day Years Used Date Smoking Tobacco: Never Smokeless Tobacco: Never Alcohol Use Standard Drinks/Week Comments Not Currently 0 (1 standard drink = 0.6 oz pur e alcohol) Comments Unknown Sex and Gender Information Value Date Recorded Sex Assigned at Not on file Legal Sex Female 12:11 AM EDT Gender Identity Not on file [...]
--- OUTSIDE RECORDS SUMMARY | 2024-12-26 08:59 | XMS_ITS | Encounter Summary ---
Author Organization [facility] Address [address] [place] [address] Care Team Providers Care Rn Outpatient Surgery Name Role Phone Link, Baljit PRETTY Primary Care Provider [phone] Encounter Details Date Type Department Care Team (Late st Contact Info) Description 11/30/2024 Abstract [facility] [address] [place] [phone] Simona Woods, SHARON [address] [place] [address] Social History Tobacco Use Types Packs/Day Years [...] PM EDT Routine [facility] [address] [place] [phone] Marco A Greene DO [address] [place], [place] [id number] 03/14/2025 11:00 AM EST Office Visit [facility] [address] [place] [address] Marco A Greene DO [address] [facility] [address] [place] [address] documented as of this encounter Visit Diagnoses Not on filedocumented in this encounter Care Teams Rn Outpatient Surgery Relationship Specialty Start Date End Date Link, MD Baljit PCP - General Family Medicine 10/20/22 documented as of this encounter
--- OUTSIDE RECORDS SUMMARY | 2024-12-26 08:59 | XMS_ITS | Clinical Summary ---
Author Organization [facility] Address [address], [address] [place] [address] Care Team Providers Care Selector Packer Name Role Phone Unavailable Primary Care Provider [...]
--- OUTSIDE RECORDS SUMMARY | 2024-12-26 08:59 | XMS_ITS | Encounter Summary ---
Author Organization [facility] Address [address] [place] [address] Care Team Providers Care Family Practice Nurse Practitioner Name Role Phone Link, Baljit PRETTY Primary Care Provider [phone] Encounter Details Date Type Department Care Team (Late Contact Info) Description 12/22/2024 Bamboo flowsheet [facility] [address] [place] [address] Simona Currie PA [address] [place], [place] [address] Social History Tobacco Use Types Packs/Day Years [...] 01/04/2025 2:00 PM EDT Routine [facility] [address] [place] [place] [address] Marco A Greene DO [address] [place], [facility] 03/14/2025 11:00 AM EST Office Visit [facility] [address] [place] [phone] Marco A Greene DO [address] [place], [place] [id number] documented as of this encounter Visit Diagnoses Not on filedocumented in this encounter Care Teams Family Practice Nurse Practitioner Relationship Specialty Start Date End Date Link, MD Baljit PCP - General Family Medicine 10/20/22 documented as of this encounter
--- OUTSIDE RECORDS SUMMARY | 2024-12-26 08:59 | XMS_ITS | Encounter Summary ---
Author Organization [facility] Address [address] [place] [address] Care Team Providers Care Balance Wheel Facer Name Role Phone Link, Baljit PRETTY Primary Care Provider [phone] Encounter Details Date Type Department Care Team (Late Contact Info) Description 03/13/2023 Clinisync Result Encounter [facility] External Department Unsolicited Marco A Greene DO [address] [place], [facility] Social History Tobacco Use Types [...] Routine [facility] [address] [place] [phone] Marco A Greene DO [address] [place], [place] [id number] 03/14/2025 11:00 AM EST Office Visit [facility] [address] [place] [address] Marco A Greene DO [address] [facility] [place] [address] documented as of this encounter Procedures Procedure Name Priority Date/Time Associated Diagnosis Comments US OB BPP W NON-STRESS 03/13/2023 8:47 AM EST documented in this encounter Results * US OB BPP W NON-STRESS (03/13/2023 8:47 AM EST) Anatomical Region Laterality Modality Other 03/13/2023 8:47 AM EST Narrative 03/13/2023 8:47 AM EST The [address] [address] Ultrasound Report Signed Patient: ANAND HERRERA MR#: [id number] : 2000 Acct:[id number] Age/Sex: 22 / F ADM Date: 03/13/23 Loc: [facility] 254-[address]: Marco A Greene D.O. Ordering Physician: Marco A Greene D.O. Date of Service: 03/13/23 Procedure(s): US OB BPP w non-stress Accession Number(s): [id number] cc: Marco A Greene D.O.; Physician,Non-Staff [facility] The [address] [address] Patient Name: ANAND HERRERA MRN: [id number] date: 2000 Sex: F Assigned Patient Location: [facility] Current Patient Location: [facility] Accession/Order Number: [id number] Exam Date: 03/13/2023 07:50 Report Date: 03/13/2023 08:47 At the request of: MARCO A GREENE Procedure: US OB BPP w non-stress [...] M.D. Signed By: 03/13/2349 DD/ 6 TD/TT: Manager Asset Management: Procedure Note Radiology, Radiologist, - 03/13/2023 [place] [address] Ultrasound Report Signed Patient: ANAND HERRERA EMR#: [id number] : 2000Acct:[id number] Age/Sex: 22 / FADM Date: 03/13/23 Loc: [facility] 254-[address]: Marco A Greene D.O. Ordering Physician: Marco A Greene D.O. Date of Service: 03/13/23 Procedure(s): US OB BPP w non-stress Accession Number(s): [id number] cc: Marco A Greene D.O.; Physician,Non-Staff MLiborio The [place] [address] Patient Name: ANAND HERRERA MRN: [id number] date: 2000 Sex: F Assigned Patient Location: [facility] Current Patient Location: [facility] Accession/Order Number: [id number] Exam Date: 03/13/2023 07:50 Report Date: 03/13/2023 08:47 At the request of: MARCO A GREENE Procedure: US OB BPP w non-stress [...] Jess Nicole M.D. Signed By:03/13/2349 DD/ TD/TT: Manager Asset Management: us Marco A Jc DO [facility] Final Result documented in this encounter Visit Diagnoses Not on filedocumented in this encounter Care Teams Balance Wheel Facer Relationship Specialty Start Date End Date Baljit Watts MD PCP - General Family Medicine 10/20/22 documented as of this encounter
--- OUTSIDE RECORDS SUMMARY | 2024-12-26 08:59 | XMS_ITS | Encounter Summary ---
Author Organization [facility] Address [address] [place] [address] Care Team Providers Care Assembler Seat Name Role Phone Link, Baljit Gilbert DO Primary Care Provider [phone] Source Comments In the event this information is protected by the Federal Confidentiality of Alcohol and Drug AbusePatient Records regulations: The Federal rules restrict any use of the information to criminally investigate or prosecute any alcohol or drug abuse patient.[facility] Encounter Details Date Type Department Care Team (Late st Contact Info) Description 11/15/2021 Get Medical Advice Ophthalmology [address] [place] [address] Elmer Sheets, OD [address] [place] [place] [address] Eyes Social History Tobacco Use [...] on filedocumented in this encounter Care Teams Assembler Seat Relationship Specialty Start Date End Date Link, Baljit Gilbert DO [address] [place] [phone] PCP - General Family Medicine 11/07/21 documented as of this encounter
--- OUTSIDE RECORDS SUMMARY | 2024-12-26 08:59 | XMS_ITS | Encounter Summary ---
Author Organization [facility] Address [address] [place] [address] Care Team Providers Care Senior Information Security Consultant Name Role Phone Link, Baljit PRETTY Primary Care Provider [phone] Encounter Details Date Type Department Care Team (Late Contact Info) Description 09/29/2024 Abstract [facility] [place] [address] Marco A Greene DO [facility] [address] [place], [place] [address] Social History Tobacco Use Types Packs/Day Years [...] 01/04/2025 2:00 PM EDT Routine [facility] [place] [address] Marco A Greene DO [address] [place], [facility] 03/14/2025 11:00 AM EST Office Visit [facility] [address] [facility] [address] [place] [address] Marco A Greene DO [address] [facility] [address] [place], [place] [id number] documented as of this encounter Visit Diagnoses Not on filedocumented in this encounter Care Teams Senior Information Security Consultant Relationship Specialty Start Date End Date Link, MD Baljit PCP - General Family Medicine 10/20/22 documented as of this encounter
--- OUTSIDE RECORDS SUMMARY | 2024-12-26 08:59 | XMS_ITS | Clinical Summary ---
Author Organization [facility] Healthcare Address [address] [place] [address] Care Team Providers Care Coal Inspector Name Role Phone Link, Baljit PRETTY Primary Care Provider [phone] Allergies No known active allergies Medications Vyvanse [...] until 12 weeks gestation 30 suppository 2 12/23/19 25 025 Active Progesterone 200 MG suppositoryIndi cations:History of miscarriage Insert 200 mg into the vagina at bedtime Insert suppository vaginally every night at bedtime until 12 weeks gestation 30 suppository 11/11/19 25 025 cephalexin (Keflex) 500 MG capsuleIndicati ons:Mastitis Take 1 capsule (500 mg) by mouth in the morning and 1 capsule (500 mg) before bedtime. Do all this for 7 days. 14 capsule 11/23/19 25 025 nitrofurantoin, macrocrystal-mo nohydrate, (Macrobid) 100 MG capsuleIndicati ons:Urinary tract infection without hematuria, site unspecified Take 1 capsule (100 mg) by mouth in the morning and 1 capsule (100 mg) before bedtime. Do all this for 7 days. 14 capsule 11/30/19 25 025 Active Problems Estimated Date of Delivery Comme nts Yes 02/08/2025 Based on last me nstrual period of 05/04/2024 No known active problems Encounters Date Type Department Care Team Description 12/22/2024 2:00 PM [place] [address] Simona Gunn PA Third trimester ([facility]); 33 weeks gestation of ([facility]); Amniotic band syndrome; History of miscarriage 12/22/2024 Bamboo [place] [address] Simona Gunn PA 12/12/2024 11:00 AM EDT Ancillary [place] [address] Third trimester ([facility]); 31 weeks gestation of ([facility]); Screening, , for anatomic survey ([facility]) 12/08/2024 11:30 AM ED[place] [address] Marco A Greene DO Third trimester ([facility]); 31 weeks gestation of ([facility]); Screening, , for anatomic survey ([facility]) 12/08/2024 11:00 AM EDT Ancillary [place] [address] Size of fetus inconsistent with dates in second trimester ([facility]) 12/08/2024 [place] [address] Rose Costello LPN 12/06/2024 Patient Outreach [facility] [place] [address] [place] [address] Simona Woods LPN 11/30/2024 Abstract [facility] [place] [address] Simona Woods LPN 11/29/2024 Telephone [facility] [place] Alfred [facility] [place] [address] Marco A Greene, 11/22/2024 11:40 AM EDT Routine [facility] [place] [address] Marco A Greene, Size of fetus inconsistent with dates in second trimester ([facility]) (Primary Dx); Second trimester ([facility]); 28 weeks gestation of ([facility]); Mastitis 11/22/2024 Bamboo flowsheet [facility] [place] [address] Marco A Greene DO 11/10/2024 Telephone [facility] [place] BARRERA [address] [place] [address] [place] [address] Piedad Dewitt LPN 10/31/2024 Clinisync Result Encounter NOMS External Department Unsolicited Simona Gunn PA 10/25/2024 2:30 PM EDT Routine [facility] [place] [address] Simona Gunn PA Second trimester ([facility]); 24 weeks gestation of ([facility]); HSV infection; H/O pre-eclampsia in prior , currently ([facility]); Diabetes mellitus screening; Encounter for anatomic survey ([facility]) 10/25/2024 Bamboo flowsheet [facility] [place] [address] Simona Gunn PA 09/29/2024 Telephone [facility] [place] BARRERA [address] [place] [address] [place] [address] Marco A Greene DO 09/29/2024 Abstract [facility] [place] [address]ARR[address]A [address] [place] [address] Marco A Greene DO 09/27/2024 2:30 PM ED[place] [address] Marco A Greene DO Second trimester ([facility]); 20 weeks gestation of ([facility]); Exposure to STD; History of miscarriage 09/27/2024 External Result Encounter NOMS External Department Unsolicited Marco A Greene DO 09/27/2024 Bamboo flowsheet [facility] [address] Marco A Greene DO from Last 3 [...] oz) 12/22/2024 1:57 P M EDT Height 167.6 cm (5' 6 ) 10/26/2023 1:10 PM EDT Body Mass Index 30.57 10/26/2023 1:10 PM EDT Plan of Treatment Upcoming Encounters Date Type Department Care Team (Late st Contact Info) Description 01/04/2025 2:00 PM EDT Routine [facility] [address] [facility] [facility] [place] [address] Marco A Greene, DO [address] [place] [address] 03/14/2025 11:00 AM EST Office Visit LON BARRERA [address] [place] [address] Marco A Greene, DO [address] [place] [address] Procedures Procedure Name Priority Date/Time Associated Diagnosis Comments US OB 14+ WEEKS ANATOMY SCAN Routine 12/12/2024 11:50 AM EDT Third trimester ([facility]) 31 weeks gestation of ([facility]) Screening, , for anatomic survey ([facility]) US OB FOLLOW UP TRANSABDOMINAL APPROACH Routine 12/08/2024 11:16 AM EDT Size of fetus inconsistent with dates in second trimester ([facility]) POCT URINALYSIS DIPSTICK Routine 11/22/2024 12:01 PM EDT Second trimester ([facility]) 28 weeks gestation of ([facility]) ALL CBC WITH AUTO DIFF Routine 10:36 AM EDT GLUCOSE 1 HOUR Routine 10/31/2024 10:36 AM EDT US OB INCOMPLETE ANATOMY 10/31/2024 9:54 AM EDT POCT URINALYSIS DIPSTICK Routine 10/25/2024 2:39 PM EDT Second trimester ([facility]) POCT URINALYSIS DIPSTICK Routine 09/27/2024 2:51 PM EDT Second trimester ([facility]) RECURRENT VAGINITIS (HTRX) Routine 09/27/2024 2:41 AM EDT from Last 3 Months Results * US OB 14+ weeks anatomy [...] anatomy. Interpreted by: Electronically signed by ZAC MANE II, MD, PHD at 15-Dec-2024 08:04:22 AM [facility] Procedure Note Zac Mane MD - 12/15/2024 EXAM: US OB 14+ [...] anatomy. Interpreted by: Electronically signed by ZAC MANE II, MD, PHD [id number] 08:04:22 AM [facility] us Marco A Greene DO IM OB US PROCEDURES Final Resul t * US OB follow up transabdominal approach (12/08/2024 11:16 AM EDT) Anatomical Region Laterality Modality Body Ultrasound 12/12/2024 2:01 PM EDT Impressions 12/13/2024 8:34 AM EDT Single, live intrauterine , current sonographic age of 31 weeks and 6 days, with an estimated date of delivery of February 03, 2025. * Estimated Weight (g) by Percentile is based upon an accurate estimated age based on last menstrual period. t TRANSCRIBED BY: ELECTRONICALLY SIGNED BY: Jorge Salazar MD Narrative 12/13/2024 8:34 AM EDT FINDINGS: A single, live intrauterine is present [...] 281 grams ( 4 pound, 2 ounces). Procedure Note Jorge Salazar MD - 12/13/2024 FINDINGS: A single, live intrauterine is present with normal cardiacrate of 130 beats per minute. Normal activity and amniotic fluidvolume. Amniotic fluid index is 14.0 cm. Morphology is grossly normal.The placenta is anterior inferior aspect 9.0 cm from the closed cervicalos, 4.7 cm length. The current sonographic age is 31 weeks and 6 days,based on the following measurements: BPD 8.3 cm ( 33 weeks, 2 days) Head Circumference 30.1cm (33 weeks, 3 days) Abdominal Circumference 28.1cm (32 weeks, 1days) Femur Length 5.9cm (30 weeks,6 days) Presentation transverse lie Placenta Anterior Weight (g) by Percentile 65.5% * These measurements result in an estimated date of delivery of January. The current estimated weight is 1876 +/- 281 grams ( 4pound, 2 ounces). IMPRESSION: Single, live intrauterine , current sonographic age of 31 weeksand 6 days, with an estimated date of delivery of February 03, 2025. * Estimated Weight (g) by Percentile is based upon an accurateestimated age based on last menstrual period. t TRANSCRIBED BY: ELECTRONICALLY SIGNED BY: Jorge Salazar MD us Simona ROSS IMG OB US PROCEDURES Final Resul t * POCT urinalysis dipstick manually resulted (11/22/2024 12:01 PM EDT) Only the most recent of3 resultswithin the time period is included. Color, UA Yellow Clarity, UA Clear Glucose, UA Negative Negative - 1999(110) ++++ mg/dL Bilirubin, UA Negative Negative - 4(70) +++ mg/dL Ketones, UA Negative Negative - 160(16) ++++ mg/dL Spec Grav, UA 1.005 1 - 1.03 Blood, UA Negative Negative - 50 Gabriel/mcL pH, UA 6.5 5 - 9 Protein, UA Negative Negative - 1999(20) ++++ mg/dL Urobilinogen, UA 1.0 0.2 - 12 mg/dL Leukocytes, UA Negative Negative - 500+++ Sebastián/mcL Nitrite, UA Negative Negative - Positive Urine 11/22/2024 12:0 1 PM EDT Marco A Greene DO POINT OF CARE TEST ENTER/EDIT OR DERABLES Final Result * GLUCOSE 1 HOUR (10/31/2024 10:36 AM EDT) GLUCOSE 1 HOUR 126 <130 mg/dL TB 10/31/2024 10:3 6 AM EDT 10/31/2024 10:38 AM EDT Narrative [facility] - 10/31/2024 10:56 AM EDT Simona ROSS LAB BLOOD ORDERABLES Final Resul t [facility] * (ABNORMAL) ALL CBC WITH AUTO DIFF (10/31/2024 10:36 AM EDT) TB WBC 8.5 4.0 - 11.0 10 3/uL TBH TB RBC 3.44(L) 4.20 - 5.40 10 6/uL TBH TBH HGB 10.7(L) 12.0 - 16.0 g/dL TB TB HCT 32.3(L) 36.0 - 48.0 % TBH TB MCV 93.9 81.0 - 99.0 fL TBH TB MCH 31.1 26.7 - 34.0 pg TBH TBH MCHC 33.1 29.9 - 35.2 g/dL TB TBH RDW 13.6 11.0 - 15.0 % TBH TBH PLT 263 150 - 450 10 3/uL TBH TBH MPV 9.8 9.5 - 13.5 fL TBH NEUTROPHILS PERCENT AUTO 81.0(H) 43.0 - 75.0 % TBH LYMPHOCYTES PERCENT AUTO 13.3(L) 20.5 - 60.0 % TBH MONOCYTES PERCENT AUTO 4.2 1.7 - 12.0 % TBH TBH EO % 0.9 0.9 - 7.0 % TBH BASOPHILS PERCENT AUTO 0.2 0.2 - 2.0 % TBH IMMATURE GRANULOCYTES PCT AUTO 0.4 0.0 - 0.5 % TBH NEUTROPHILS ABSOLUTE AUTO 6.9(H) 1.4 - 6.5 10 3/uL TBH LYMPHOCYTES ABSOLUTE AUTO 1.1(L) 1.2 - 3.8 10 3/uL TBH MONOCYTES ABSOLUTE AUTO 0.4 0.3 - 0.8 10 3/uL TBH TBH EO # 0.1 0.0 - 0.7 10 3/uL TBH BASOPHILS ABSOLUTE AUTO 0.0 0.0 - 0.1 10 3/uL TBH IMMATURE GRANULOCYTES ABS AUTO 0.03 0.00 - 0.03 10 3/uL TBH 10/31/2024 10:3 6 AM EDT 10/31/2024 10:38 AM EDT Narrative [facility] - 10/31/2024 11:03 AM EDT us Simona TUTTLE Final Result [facility] * US OB INCOMPLETE ANATOMY (10/31/2024 9:54 AM EDT) Anatomical Region Laterality Modality Other 10/31/2024 9:54 AM EDT Narrative 10/31/2024 9:57 AM EDT [address] [address] Ultrasound Report Signed Patient: ANAND PERALES MR#: [id number] : 2000 Acct:[id number] Age/Sex: 24 / F ADM Date: 10/31/24 Loc: US Attending Dr: Simona Gunn Ordering Physician: Simona Gunn Date of Service: 10/31/24 Procedure(s): US OB incomplete anatomy Accession Number(s): [id number] cc: Simona Gunn; Physician,Non-Staff M.DIrvin The [address] [address] Patient Name: ANAND PERALES MRN: [id number] date: 2000 Sex: F Assigned Patient Location: US Current Patient Location: US Accession/Order Number: [id number] Exam Date: 10/31/2024 09:53 Report Date: 10/31/2024 09:54 At the request of: SIMONA GUNN Procedure: US OB incomplete anatomy ULTRASOUND OB INCOMPLETE ANATOMY CLINICAL DATA: Incomplete spine evaluation COMPARISON: None There is a single live intrauterine gestation in cephalic presentation. There is cardiac and somatic activity with heart rate of 140 bpm. There is an anterior placenta. Amniotic fluid volume is subjectively normal. The spine was surveyed by the glue mounter operator and no abnormalities were reported. US/US OB incomplete anatomy IMPRESSION: UNREMARKABLE SPINE ASSESSMENT. Impression dictated by: Hillary Barth M.D. 10/31/2024 9:54 AM Dictation Location: [place] [address] Electronically authenticated by: [id number] Y Date: 10/31/2024 09:54 Dictated By: Hillary Barth M.D. Signed By: 10/31/2457 DD/ 3 TD/TT: Purification Operator Helper: Procedure Note Radiology, Radiologist, - 10/31/2024 [place] [address] Ultrasound Report Signed Patient: ANAND PERALES EMR#: [id number] : 2000Acct:[id number] Age/Sex: FADM Date: 10/31/24 Loc: US Attending Dr: Simona Gunn Ordering Physician: Simona Gunn Date of Service: 10/31/24 Procedure(s): US OB incomplete anatomy Accession Number(s): [id number] cc: Simona Gunn; Physician,Non-Staff [place] The [address] [address] Patient Name: ANAND PERALES MRN: [id number] date: 2000 Sex: F Assigned Patient Location: US Current Patient Location: US Accession/Order Number: [id number] Exam Date: 10/31/2024 09:53 Report Date: 10/31/2024 09:54 At the request of: SIMONA GUNN Procedure: US OB incomplete anatomy ULTRASOUND OB INCOMPLETE ANATOMY CLINICAL DATA: Incomplete spine evaluation COMPARISON: None There is a single live intrauterine gestation in cephalic presentation.There is cardiac and somatic activity with heart rate of 140 bpm. Thereis an anterior placenta. Amniotic fluid volume is subjectively normal. Thespine was surveyed by the glue mounter operator and no abnormalities were reported. US/US OB incomplete anatomy IMPRESSION: UNREMARKABLE SPINE ASSESSMENT. Impression dictated by: Hillary Barth M.D. 10/31/2024 9:54 AM Dictation Location: [place] [address] Electronically authenticated by: [id number] Y Date: 9:54 Dictated By: Hillary Barth M.D. Signed By:10/31/24 0957 DD/ 0954 TD/TT: Purification Operator Helper: Simona ROSS [facility] Final Result * (ABNORMAL) RECURRENT VAGINITIS (HTRX) (09/27/2024 2:41 AM EDT) [facility] ATOPOBIUM VAGINAE 0.000 19.961 - 24.689 ppm 09/29/2024 7:23 AM EDT [facility] ATOPOBIUM VAGINAE Not Detected 19.961 - 24.689 ppm 09/29/2024 7:23 AM EDT [facility] BVAB 2,3 (BACTERIAL VAGINOSIS ASSOCIATED BACTERIA 2, 3); MOBILUNCUS SPP 0.000 19.961 - 24.689 ppm 09/29/2024 7:23 AM EDT [facility] BVAB 2,3 (BACTERIAL VAGINOSIS ASSOCIATED BACTERIA 2, 3); MOBILUNCUS SPP Not Detected 19.961 - 24.689 ppm 09/29/2024 7:23 AM EDT [facility] EBONIE ALBICANS, PARAPSILOSIS, TROPICALIS 27.336(A) 19.961 - 30.770 ppm 09/29/2024 7:23 AM EDT [facility] EBONIE ALBICANS, PARAPSILOSIS, TROPICALIS Detected(A) 19.961 - 30.770 ppm 09/29/2024 7:23 AM EDT [facility] EBONIE GLABRATA 0.000 23.000 - 32.138 ppm 09/29/2024 7:23 AM EDT [facility] EBONIE GLABRATA Not Detected 23.000 - 32.138 ppm 09/29/2024 7:23 AM EDT [facility] [place] EBONIE KRUSEI 0.000 23.000 - 32.271 ppm 09/29/2024 7:23 AM EDT [facility] [place] EBONIE KRUSEI Not Detected 23.000 - 32.271 ppm 09/29/2024 7:23 AM EDT [facility] CHLAMYDIA TRACHOMATIS 0.000 23.000 - 31.467 ppm 09/29/2024 7:23 AM EDT [facility] CHLAMYDIA TRACHOMATIS Not Detected 23.000 - 31.467 ppm 09/29/2024 7:23 AM EDT [facility] GARDNERELLA VAGINALIS 0.000 19.961 - 24.689 ppm 09/29/2024 7:23 AM EDT [facility] GARDNERELLA VAGINALIS Not Detected 19.961 - 24.689 ppm 09/29/2024 7:23 AM EDT [facility] MEGASPHAERA (TYPES 1, 2) 0.000 19.961 - 24.689 ppm 09/29/2024 7:23 AM EDT [facility] MEGASPHAERA (TYPES 1, 2) Not Detected 19.961 - 24.689 ppm 09/29/2024 7:23 AM EDT [facility] NEISSERIA GONORRHOEAE 0.000 23.000 - 32.117 ppm 09/29/2024 7:23 AM EDT [facility] NEISSERIA GONORRHOEAE Not Detected 23.000 - 32.117 ppm 09/29/2024 7:23 AM EDT [facility] TRICHOMONAS VAGINALIS 0.000 23.000 - 32.119 ppm 09/29/2024 7:23 AM EDT [facility] TRICHOMONAS VAGINALIS Not Detected 23.000 - 32.119 ppm 09/29/2024 7:23 AM EDT [facility] MYCOPLASMA GENITALIUM 0.000 19.961 - 24.689 ppm 09/29/2024 7:23 AM EDT [facility] MYCOPLASMA GENITALIUM Not Detected 19.961 - 24.689 ppm 09/29/2024 7:23 AM EDT [facility] Tissue 09/27/2024 2:41 AM EDT 09/29/2024 2:12 AM EDT us Marco A Jc DO LAB BLOOD ORDERABLES Final Resul t [facility] [address] [place] [address] from Last 3 Months Insurance [employer] Care Teams Coal Inspector Relationship Specialty Start Date End Date Baljit Watts MD PCP - General Family Medicine 10/20/22
--- OUTSIDE RECORDS SUMMARY | 2024-12-26 08:59 | XMS_ITS | Encounter Summary ---
Author Organization [facility] Address [address] [place] [address] Care Team Providers Care Software Analyst Name Role Phone Link, Baljit PRETTY Primary Care Provider [phone] Encounter Details Date Type Department Care Team (Late Contact Info) Description 03/17/2024 Orders Only [facility] [place] BARRERA [address] [place] [address] Lisa Gleason LPN [address] [address] Social History Tobacco Use Types Packs/Day Years [...] PM EDT Routine [facility] [place]inda BARRERA [address] [place] [address] Marco A Greene DO [address] [place] [place], [place] [address] 03/14/2025 11:00 AM EST Office Visit [facility] Er[facility]inda OBGYN [address] [place] [address] Marco A Greene DO [address] [facility] [place] [address] documented as of this encounter Procedures Procedure Name Priority Date/Time Associated Diagnosis Comments PAP SMEAR Routine 03/08/2024 12:00 AM EST documented in this encounter Results * Pap Smear (03/08/2024 12:00 AM EST) Swab Cervical swab / Unknown us Jc Nurse [facility] Ob LAB CYTOLOGY ORDERABLES Final Result EXTERNAL LAB documented in this encounter Visit Diagnoses Not on filedocumented in this encounter Care Teams Software Analyst Relationship Specialty Start Date End Date Link, MD Baljit PCP - General Family Medicine 10/20/22 documented as of this encounter
--- OUTSIDE RECORDS SUMMARY | 2024-12-26 08:59 | XMS_ITS | Encounter Summary ---
Author Organization [facility] Address [address] [place] [address] Care Team Providers Care Topographic Computator Name Role Phone Link, Baljit Gilbert DO Primary Care Provider [phone] Source Comments In the event this information is protected by the Federal Confidentiality of Alcohol and Drug AbusePatient Records regulations: The Federal rules restrict any use of the information to criminally investigate or prosecute any alcohol or drug abuse patient.[facility] Encounter Details Date Type Department Care Team (Late st Contact Info) Description 11/09/2021 Get Medical Advice Ophthalmology [address] [place] [address] Elmer Sheets, OD [address] [facility] [address] Eyes Social History Tobacco Use [...] on filedocumented in this encounter Care Teams Topographic Computator Relationship Specialty Start Date End Date Link, Baljit Gilbert DO [address] [place] [address] PCP - General Family Medicine 11/07/21 documented as of this encounter
--- OUTSIDE RECORDS SUMMARY | 2024-12-26 08:59 | XMS_ITS | Encounter Summary ---
Author Organization [facility] Address [address] [place] [address] Care Team Providers Care Literacy Specialist Name Role Phone Link, Baljit PRETTY Primary Care Provider [phone] Encounter Details Date Type Department Care Team (Late st Contact Info) Description 02/09/2023 Clinisync Result Encounter [facility] External Department Unsolicited Marco A Greene DO [address] [place], [facility] Social History Tobacco Use Types Packs/Day Years [...] PM EDT Routine [facility]inda OBGYN [address] [employer] [place] [address] Marco A Greene DO [address] [place] [address] 03/14/2025 11:00 AM EST Office Visit [facility]inda O[facility]YN [address] [facility] [facility] [place] [address] Marco A Greene DO [address] [facility] [place] [address] documented as of this encounter Procedures Procedure Name Priority Date/Time Associated Diagnosis Comments US OB GROWTH 02/09/2023 4:38 PM EDT documented in this encounter Results * US OB GROWTH (02/09/2023 4:38 PM EDT) Anatomical Region Laterality Modality Other 02/09/2023 4:38 PM EDT Narrative 02/09/2023 4:38 PM EDT [address] [address] Ultrasound Report Signed Patient: ANAND HERRERA MR#: [id number] : 2000 Acct:[id number] Age/Sex: 22 / F ADM Date: 02/09/23 Loc: US Attending Dr: Marco A Greene D.O. Ordering Physician: Marco A Greene D.O. Date of Service: 02/09/23 Procedure(s): US OB growth Accession Number(s): [id number] cc: Marco A Greene D.O. The [address] [address] Patient Name: ANAND HERRERA MRN: [id number] date: 2000 Sex: F Assigned Patient Location: US Current Patient Location: US Accession/Order Number: [id number] Exam Date: 02/09/2023 13:00 Report Date: 02/09/2023 [...] Signed By: 02/09/23 1640 DD/ 1638 TD/TT: Legal Operations Manager: Procedure Note Radiology, Radiologist, MD - 02/09/2023 The [place] [id number] Ultrasound Report Signed Patient: ANAND HERRERA EMR#: [id number] : 2000Acct:[id number] Age/Sex: 22 / FADM Date: 02/09/23 Loc: US Attending Dr: Marco A Greene D.O. Ordering Physician: Marco A Greene D.O. Date of Service: 02/09/23 Procedure(s): US OB growth Accession Number(s): [id number] cc: Marco A Greene D.O. The [address] [address] Patient Name: ANAND HERRERA MRN: [id number] date: 2000 Sex: F Assigned Patient Location: US Current Patient Location: US Accession/Order Number: [id number] Exam Date: 02/09/2023 13:00 Report Date: 02/09/2023 [...] M.D. Signed By:02/09/23 1640 DD/ 1638 TD/TT: Legal Operations Manager: us Marco A Greene DO [facility] Final Result documented in this encounter Visit Diagnoses Not on filedocumented in this encounter Care Teams Literacy Specialist Relationship Specialty Start Date End Date Baljit Watts MD PCP - General Family Medicine 10/20/22 documented as of this encounter
--- OUTSIDE RECORDS SUMMARY | 2024-12-26 08:59 | XMS_ITS | Clinical Summary ---
Author Organization [facility] Address [address] [place] [address] Phone Care Team Providers Care Management Tech Name Role Phone Unavailable Primary Care Provider Unavailabl e Allergies No known active allergies Medications [id number] c acid (PreNata) 29 mg iron- 1 mg tablet,chewable Chew 1 tablet once daily. Active Vyvanse 40 mg capsule Take 1 capsule (40 mg) by mouth once daily in the morning. Take before meals. Active Social History Tobacco Use Types Packs/Day Years [...] Comments HIV Screening 2000 Lipid Panel 2000 Hepatitis C Screening 10/08/2017 Cervical Cancer Screening 10/08/2020 HPV/Cotest 10/08/2020 Pap Smear 10/08/2020 COVID-19 Vaccine ( season) 2023 Influenza Vaccine (#1) 2024 04/27/2020 [...] on patient's age to complete this topic Insurance [facility]
--- OUTSIDE RECORDS SUMMARY | 2024-12-26 08:59 | XMS_ITS | Encounter Summary ---
Author Organization [facility] Address [facility] [place] [address] Care Team Providers Care Lottery Manager Name Role Phone Unavailable Primary Care Provider Unavailabl e Encounter Details Date Type Department Care Team ([facility] st Contact Info) Description 04/25/2020 Scanned Document [facility] Mother Baby H[address] [place] [phone] Provider, Legacy Conversion Social History Tobacco Use Types Packs/Day Years Used Date Smoking Tobacco: Never Assessed Comments Unknown Sex and Gender Information Value Date Recorded Sex Assigned at Not on file Legal Sex Female 12:11 AM EDT Gender Identity Not on file Sexual Orientation Not on file documented as of this encounter Plan of Treatment Not on file documented as of this encounter Visit Diagnoses Not on filedocumented in this encounter
[2024-12-26 09:06] VITALS: BP 118/69; PULSE 97
== END 2024-12-26 09:35 | disposition home or self-care (01) ==
LOC: FBCO 08:56 → FBC 08:57
PROVIDERS: Visit Provider Obstetrics & Gynecology
DX: O26.893 Other specified pregnancy related conditions, third trimester (principal)
CPT/HCPCS: 59025

== ENCOUNTER 2024-12-29 16:57 | Outpatient (OUT) | payer OTHER, SELFPAY ==
--- OUTSIDE RECORDS SUMMARY | 2024-12-22 14:00 | XMS_ITS | Encounter Summary ---
Author Organization [facility] Address [address] [place] [address] Care Team Providers Care Construction Project Administrator Name Role Phone Link, Baljit PRETTY Primary Care Provider [phone] Reason for Visit * Reason Comments Routine Visit Encounter Details Date Type Department Care Team (Late st Contact Info) Description 12/22/2024 2:00 PM EDT Routine LON BARRERA [address] [facility] [place] [address] Simona Currie PA [address] [facility] [address] [place], [facility]11 Third trimester ([facility]); 33 weeks gestation of ([facility]); Amniotic band syndrome; History of miscarriage Social [...] Problems Past Medical History: Diagnosis Date Pre-eclampsia ([facility]) HISTORY PAST MEDICAL HISTORY SOCIAL HISTORY Past Medical History: Diagnosis Date Pre-eclampsia ([facility]) Social History Tobacco Use Smoking status: Never [...] ASSESSMENT & PLAN ICD-10-CM 1. Third trimester ([facility]) Z34.93 2. 33 weeks gestation of ([facility]) Z3A.33 3. Amniotic band syndrome Q79.8 US [...] 1:50 PM EDT Routine NOMEmelia BARRERA [address] [facility] [place] [phone] Simona Currie PA [address] [facility] [place] [address] 03/14/2025 11:00 AM EST Office Visit LON BARRERA [address] [place] [address] Marco A Greene DO [address] [place] [address] Scheduled Orders Name Type Priority Associated Diagnoses Orde r Schedule US biophysical profile w non stress test Imaging Routine Amniotic band syndrome Expected: 12/22/2024 (Approximate), Expires: 06/24/2025 documented as of this encounter Visit Diagnoses Diagnosis Third trimester ([facility]) state, incidental 33 weeks gestation of ([facility]) Amniotic band syndrome Other problem associated with amniotic cavity and membranes, unspecified as to episode of care History of miscarriage Personal history of other genital system and obstetric disorders documented in this encounter Care Teams Construction Project Administrator Relationship Specialty Start Date End Date Link, MD Baljit PCP - General Family Medicine 10/20/22 documented as of this encounter
--- OUTSIDE RECORDS SUMMARY | 2024-12-29 17:00 | XMS_ITS | Encounter Summary ---
Author Organization [facility] Address [address] [place] [address] Care Team Providers Care Town Marshal Name Role Phone Link, Baljit PRETTY Primary Care Provider [phone] Encounter Details Date Type Department Care Team (Late Contact Info) Description 11/30/2024 Abstract [facility] [address] [place] [address] Simona Woods LPN [address] [place] [address] Social History Tobacco Use Types Packs/Day Years [...] Info) Description 01/04/2025 1:50 PM EDT Routine [facility] [place] [facility] [address] [facility] [place] [phone] Simona Currie PA [address] [place], [facility]11 03/14/2025 11:00 AM EST Office Visit [facility] [place] BARRERA [address] [facility] [place] [address] Marco A Greene DO [address] [facility] [place] [address] documented as of this encounter Visit Diagnoses Not on filedocumented in this encounter Care Teams Town Marshal Relationship Specialty Start Date End Date Baljit Watts MD PCP - General Family Medicine 10/20/22 documented as of this encounter
--- OUTSIDE RECORDS SUMMARY | 2024-12-29 17:00 | XMS_ITS | Clinical Summary ---
Author Organization [facility] Address [address] [place] [address] Care Team Providers Care 7Th Grade Teacher Name Role Phone Link, Baljit PRETTY Primary Care Provider [phone] Allergies No known active allergies Medications Vyvanse [...] 12/22/2024 2:00 PM [place] [address] Simona Gunn PA Third trimester ([facility]); 33 weeks gestation of ([facility]); Amniotic band syndrome; History of miscarriage 12/22/2024 [place] [address] Simona Gunn PA 12/12/2024 11:00 AM EDT [place] [address] Third trimester ([facility]); 31 weeks gestation of ([facility]); Screening, , for anatomic survey ([facility]) 12/08/2024 11:30 AM [place] [address] Marco A Greene DO Third trimester ([facility]); 31 weeks gestation of ([facility]); Screening, , for anatomic survey ([facility]) 12/08/2024 11:00 AM EDT Ancillary [place] [address] Size of fetus inconsistent with dates in second trimester ([facility]) 12/08/2024 [place] [address] Rose Costello LPN 12/06/2024 Patient Outreach [facility] [place] [address] [place] [address] Simona Woods LPN 11/30/2024 Abstract [facility] [place] [place] [address] Simona Woods LPN 11/29/2024 Telephone [facility] [place] Alfred [facility] [place] [address] Marco A Greene, 11/22/2024 11:40 AM EDT Routine [facility] [place] [address] Marco A Greene, Size of fetus inconsistent with dates in second trimester ([facility]) (Primary Dx); Second trimester ([facility]); 28 weeks gestation of ([facility]); Mastitis 11/22/2024 Bamboo flowsheet [facility] [place] [address] Marco A Greene DO 11/10/2024 Telephone [facility] [place] BARRERA [address] [place] [address] [place] [address] Piedad Dewitt LPN 10/31/2024 Clinisync Result Encounter [facility] External Department Unsolicited Simona Gunn PA 10/25/2024 2:30 PM EDT Routine [facility] [place] [address] Simona Gunn PA Second trimester ([facility]); 24 weeks gestation of ([facility]); HSV infection; H/O pre-eclampsia in prior , currently ([facility]); Diabetes mellitus screening; Encounter for anatomic survey ([facility]) 10/25/2024 Bamboo flowsheet [facility] [place] [address] Simona Gunn PA 09/29/2024 Telephone [facility] [place] BARRERA [address] [place] [address] [place] [address] Marco A Greene DO 09/29/2024 Abstract [facility] [place] BARRERA [address] [place] [address] Marco A Greene DO from Last 3 [...] 1:50 PM EDT Routine NOMEmelia BARRERA [address] [place] [address] Simona Gunn PA [address] [place] [address] 03/14/2025 11:00 AM EST Office Visit [facility]OM[facility]elia BARRERA [address] [place] [address] JcMarco A, DO [address] [place] [address] Procedures Procedure Name Priority Date/Time Associated Diagnosis Comments US OB 14+ WEEKS ANATOMY SCAN Routine 12/12/2024 11:50 AM EDT Third trimester ([facility]) 31 weeks gestation of ([facility] Screening, , for anatomic survey ([facility]) US OB FOLLOW UP TRANSABDOMINAL APPROACH Routine 12/08/2024 11:16 AM EDT Size of fetus inconsistent with dates in second trimester ([facility]) POCT URINALYSIS DIPSTICK Routine 11/22/2024 12:01 PM EDT Second trimester ([facility]) 28 weeks gestation of ([facility]) ALL CBC WITH AUTO DIFF Routine 10:36 AM EDT GLUCOSE 1 HOUR Routine 10/31/2024 10:36 AM EDT US OB INCOMPLETE ANATOMY 10/31/2024 9:54 AM EDT POCT URINALYSIS DIPSTICK Routine 10/25/2024 2:39 PM EDT Second trimester ([facility]) from Last 3 Months Results * US [...] II, MD, PHD at 15-Dec-2024 08:04:22 AM [facility] Procedure Note Zac Mane MD - [...] signed by ZAC MANE II, MD, PHD 08:04:22 AM [facility] us Marco A Greene DO [facility] OB US PROCEDURES Final Resul t * [...] BY: ELECTRONICALLY SIGNED BY: Jorge Salazar MD Simona ROSS IMG OB US PROCEDURES Final Resul t * POCT urinalysis dipstick manually resulted (11/22/2024 12:01 PM EDT) Only the most recent of2 resultswithin the time period is included. Color, UA Yellow Clarity, UA Clear Glucose, UA Negative Negative - 2000(110) ++++ mg/dL Bilirubin, UA Negative Negative - 4(70) +++ mg/dL Ketones, UA Negative Negative - 160(16) ++++ mg/dL Spec Grav, UA 1.005 1 - 1.03 Blood, UA Negative Negative - 50 Gabriel/mcL pH, UA 6.5 5 - 9 Protein, UA Negative Negative - 2000(20) ++++ mg/dL Urobilinogen, UA 1.0 0.2 - [...] ROSS LAB BLOOD ORDERABLES Final Resul t [facility] * (ABNORMAL) ALL CBC WITH AUTO DIFF (10/31/2024 10:36 AM EDT) TB WBC 8.5 4.0 - 11.0 10 3/uL TB TB RBC 3.44(L) 4.20 - 5.40 10 6/uL TBH TBH HGB 10.7(L) 12.0 - 16.0 g/dL TBH TBH HCT 32.3(L) 36.0 - 48.0 % TBH TBH MCV 93.9 81.0 - 99.0 fL TBH TBH MCH 31.1 26.7 - 34.0 pg TBH TBH MCHC 33.1 29.9 - 35.2 g/dL TBH TBH RDW 13.6 11.0 - 15.0 % [...] AM EDT us Simona TUTTLE Final Result [facility] * US OB INCOMPLETE ANATOMY (10/31/2024 9:54 AM EDT) Anatomical Region Laterality Modality Other 10/31/2024 9:54 AM EDT Narrative 10/31/2024 9:57 AM EDT The [address] [address] Ultrasound Report Signed Patient: ANAND PERALES MR#: [id number] : 2000 Acct:[id number] Age/Sex: 24 / F ADM Date: 10/31/24 Loc: US Attending Dr: Simona Gunn Ordering Physician: Simona Gunn Date of Service: 10/31/24 Procedure(s): US OB incomplete anatomy Accession Number(s): [id number] cc: Simona Gunn; Physician,Non-Staff Laney The [place] [id number] Patient Name: ANAND PERALES MRN: [id number] date: 2000 Sex: F Assigned Patient Location: US Current Patient Location: US Accession/Order Number: [id number] Exam Date: 10/31/2024 09:53 Report Date: 10/31/2024 [...] normal. The spine was surveyed by the network mgr and no abnormalities were reported. US/US OB incomplete anatomy IMPRESSION: UNREMARKABLE SPINE ASSESSMENT. Impression dictated by: Hillary Barth M.D. 10/31/2024 9:54 AM Dictation Location: [place] [address] Electronically authenticated by: [id number] Y Date: 10/31/2024 09:54 Dictated By: Hillary Barth M.D. Signed By: 10/31/24 0957 DD/ TD/TT: Sill Worker: Procedure Note Radiology, Radiologist, - 10/31/[address] [address] Ultrasound Report Signed Patient: ANAND PERALES EMR#: [id number] : 2000Acct:[id number] Age/Sex: 24 / FADM Date: 10/31/24 Loc: US Attending Dr: Simona Gunn Ordering Physician: Simona Gunn Date of Service: 10/31/24 Procedure(s): US OB incomplete anatomy Accession Number(s): [id number] cc: Simona Gunn; Physician,Non-Staff MLiborio [place] [id number] Patient Name: ANAND PERALES MRN: [id number] date: 2000 Sex: F Assigned Patient Location: US Current Patient Location: US Accession/Order Number: [id number] Exam Date: 10/31/2024 09:53 Report Date: 10/31/2024 [...] subjectively normal. Thespine was surveyed by the network mgr and no abnormalities were reported. US/US OB incomplete anatomy IMPRESSION: UNREMARKABLE SPINE ASSESSMENT. Impression dictated by: Hillary Barth M.D. 10/31/2024 9:54 AM Dictation Location: [place] [address] Electronically authenticated by: [id number] Y Date: 9:54 Dictated By: Hillary Barth M.D. Signed By:10/31/24 0957 DD/ TD/TT: Sill Worker: Simona ROSS [facility] Final Result from Last 3 Months Insurance [employer] Care Teams 7Th Grade Teacher Relationship Specialty Start Date End Date Link, MD Baljit PCP - General Family Medicine 10/20/22
--- OUTSIDE RECORDS SUMMARY | 2024-12-29 17:00 | XMS_ITS | Encounter Summary ---
Author Organization [facility] Address [address] [place] [address] Care Team Providers Care Wheel Cutter Name Role Phone Link, Baljit Gilbert DO Primary Care Provider [phone] Source Comments In the event this information is protected by the Federal Confidentiality of Alcohol and Drug AbusePatient Records regulations: The Federal rules restrict any use of the information to criminally investigate or prosecute any alcohol or drug abuse patient.[facility] Encounter Details Date Type Department Care Team (Late st Contact Info) Description 11/09/2021 Get Medical Advice Ophthalmology [address] [facility] [address] [place] [address] Elmer Sheets, OD [address] [facility] [place] [address] Eyes Social History Tobacco Use [...] on filedocumented in this encounter Care Teams Wheel Cutter Relationship Specialty Start Date End Date Link, Baljit Gilbert DO [address] [place] [address] PCP - General Family Medicine 11/07/21 documented as of this encounter
--- OUTSIDE RECORDS SUMMARY | 2024-12-29 17:00 | XMS_ITS | Encounter Summary ---
Author Organization [facility] Address [address] [place] [address] Care Team Providers Care Borematic Machine Operator Name Role Phone Link, Baljit Gilbert DO Primary Care Provider Source Comments In the event this information is protected by the Federal Confidentiality of Alcohol and Drug AbusePatient Records regulations: The Federal rules restrict any use of the information to criminally investigate or prosecute any alcohol or drug abuse patient.[facility] Encounter Details Date Type Department Care Team (Late st Contact Info) Description 11/20/2021 Get Medical Advice Ophthalmology [address] [place] [address] Elmer Sheets, OD [address] [facility] [place] [address] Eye drops Social History Tobacco [...] on filedocumented in this encounter Care Teams Borematic Machine Operator Relationship Specialty Start Date End Date Link, Baljit Gilbert DO [address] [facility] [place] [address] PCP - General Family Medicine 11/07/21 documented as of this encounter
--- OUTSIDE RECORDS SUMMARY | 2024-12-29 17:00 | XMS_ITS | Clinical Summary ---
Author Organization [email or web address] Address [address] [place] [address] Care Team Providers Care Endoscopy Nurse Name Role Phone Unavailable Primary Care Provider [...]
--- OUTSIDE RECORDS SUMMARY | 2024-12-29 17:00 | XMS_ITS | Encounter Summary ---
Author Organization [facility] Address [address] [place] [address] Care Team Providers Care Helpdesk Manager Name Role Phone Link, Baljit Gilbert DO Primary Care Provider [phone] Source Comments In the event this information is protected by the Federal Confidentiality of Alcohol and Drug AbusePatient Records regulations: The Federal rules restrict any use of the information to criminally investigate or prosecute any alcohol or drug abuse patient.[facility] Encounter Details Date Type Department Care Team (Late st Contact Info) Description 11/18/2021 Get Medical Advice Ophthalmology [address] [facility] [facility] [place] [address] Elmer Sheets, OD [address] [facility] [place] [address] Tobradex Gel Social History Tobacco [...] on filedocumented in this encounter Care Teams Helpdesk Manager Relationship Specialty Start Date End Date Link, Baljit Gilbert DO [address] [place] [address] PCP - General Family Medicine 11/07/21 documented as of this encounter
--- OUTSIDE RECORDS SUMMARY | 2024-12-29 17:00 | XMS_ITS | Encounter Summary ---
Author Organization [facility] Address [address] [place] [address] Care Team Providers Care Photo Intern Name Role Phone Link, Baljit PRETTY Primary Care Provider [phone] Encounter Details Date Type Department Care Team (Late Contact Info) Description 09/29/2022 Abstract N[facility]elia BARRERA [address] [facility] [place] [address] Marco A Greene DO [address] [facility] [address] [place], [place] [address] Social History Tobacco Use Types Packs/Day Years Used Date Smoking Tobacco: Never Tobacco Cessation:Counseling Given: Not Answered Alcohol Use Standard Drinks/Week Comments Never 0 [...] Care Team (Late Contact Info) Description 01/04/2025 1:50 PM EDT Routine NOMEmelia BARRERA [address] [place] [address] Simona Currie PA [address] [facility] [address] [place], [facility] 03/14/2025 11:00 AM EST Office Visit [facility] [place] BARRERA [address] [facility] [place] [address] Marco A Greene DO [address] [facility] [place] [address] documented as of this encounter Visit Diagnoses Not on filedocumented in this encounter Care Teams Photo Intern Relationship Specialty Start Date End Date Baljit Watts MD PCP - General Family Medicine 10/20/22 documented as of this encounter
--- OUTSIDE RECORDS SUMMARY | 2024-12-29 17:00 | XMS_ITS | Encounter Summary ---
Author Organization [facility] Address [address] [place] [address] Care Team Providers Care Nut Sheller Machine Operator Name Role Phone Link, Baljit PRETTY Primary Care Provider [phone] Encounter Details Date Type Department Care Team (Late st Contact Info) Description 03/13/2023 Clinisync Result Encounter NOMS External Department Unsolicited Silas Greene DO [address] [facility] [address] [place], [facility]11 Social History Tobacco Use Types Packs/Day Years [...] PM EDT Routine [facility] [place] OBGYN [address] [facility] [place] [address] Simona Currie PA [address] [facility] [place], [facility] 03/14/2025 11:00 AM EST Office Visit [facility] [place] DOMINGUEZGYN [address] [facility] [place] [address] Silas Greene DO [address] [facility] [place] [address] documented as of this encounter Procedures Procedure Name Priority Date/Time Associated Diagnosis Comments US OB BPP W NON-STRESS 03/13/2023 8:47 AM EST documented in this encounter Results * US OB BPP W NON-STRESS (03/13/2023 8:47 AM EST) Anatomical Region Laterality Modality Other 03/13/2023 8:47 AM EST Narrative 03/13/2023 8:47 [place] [address] Ultrasound Report Signed Patient: ANAND PERALES MR#: [id number] : 2000 Acct:[id number] Age/Sex: 22 / F ADM Date: 03/13/23 Loc: [facility] 254-[address]: Silas Greene D.O. Ordering Physician: Silas Greene D.O. Date of Service: 03/13/23 Procedure(s): US OB BPP w non-stress Accession Number(s): [id number] cc: Silas Greene D.O.; Physician,Non-Staff M.DIrvin The [address] [address] Patient Name: ANAND PERALES MRN: [id number] date: 2000 Sex: F Assigned Patient Location: [facility] Current Patient Location: [facility] Accession/Order Number: [id number] Exam Date: 03/13/2023 07:50 Report Date: 03/13/2023 [...] Jess Nicole M.D. Signed By: 03/13/2349 DD/ TD/TT: Carbon Paper Coating Machine Setter: Procedure Note Radiology, Radiologist, - 03/13/2023 [place] [address] Ultrasound Report Signed Patient: ANAND PERALES EMR#: [id number] : 2000Acct:[id number] Age/Sex: 22 / FADM Date: 03/13/23 Loc: [facility] 254-[address]: Silas Greene D.O. Ordering Physician: Silas Greene D.O. Date of Service: 03/13/23 Procedure(s): US OB BPP w non-stress Accession Number(s): [id number] cc: Silas Greene D.O.; Physician,Non-Staff M.[place] The [place] [address] Patient Name: ANAND PERALES MRN: [id number] date: 2000 Sex: F Assigned Patient Location: [facility] Current Patient Location: [facility] Accession/Order Number: [id number] Exam Date: 03/13/2023 07:50 Report Date: 03/13/2023 [...] Jess Nicole M.D. Signed By:03/13/2349 DD/ TD/TT: Carbon Paper Coating Machine Setter: us Silas Jc DO [facility] Final Result documented in this encounter Visit Diagnoses Not on filedocumented in this encounter Care Teams Nut Sheller Machine Operator Relationship Specialty Start Date End Date Link, MD Baljit PCP - General Family Medicine 10/20/22 documented as of this encounter
--- OUTSIDE RECORDS SUMMARY | 2024-12-29 17:00 | XMS_ITS | Clinical Summary ---
Author Organization [facility] Address [address] [place] [address] Phone Care Team Providers Care Fish Cake Maker Name Role Phone Unavailable Primary Care Provider Unavailabl e Allergies No known active allergies Medications [id number] c acid (PreNata) 29 mg iron- 1 [...] patient's age to complete this topic Insurance [facility]
--- OUTSIDE RECORDS SUMMARY | 2024-12-29 17:00 | XMS_ITS | Encounter Summary ---
Author Organization [facility] Address [address] [place] [address] Care Team Providers Care Detonator Maker Name Role Phone Link, Baljit Gilbert DO Primary Care Provider [phone] Source Comments In the event this information is protected by the Federal Confidentiality of Alcohol and Drug AbusePatient Records regulations: The Federal rules restrict any use of the information to criminally investigate or prosecute any alcohol or drug abuse patient.[facility] Encounter Details Date Type Department Care Team (Late st Contact Info) Description 11/25/2021 Get Medical Advice Ophthalmology [address] [facility] [place] [place] [address] Elmer Sheets, OD [address] [facility] [place] [place] [address] Eye drops Social History Tobacco [...] on filedocumented in this encounter Care Teams Detonator Maker Relationship Specialty Start Date End Date Link, Baljit Gilbert DO [address] [facility] [place] [address] PCP - General Family Medicine 11/07/21 documented as of this encounter
--- OUTSIDE RECORDS SUMMARY | 2024-12-29 17:00 | XMS_ITS | Clinical Summary ---
Author Organization [facility] Address [address] [place] [address] Care Team Providers Care Director Service Name Role Phone Link, Baljit Gilbert Primary Care Provider [phone] Allergies No known active allergies Medications predniSONE [...] HPV Vaccine Completed 06/21/2012, 01/25, 12/08/2011 Insurance [employer] Care Teams Director Service Relationship Specialty Start Date End Date Link, Baljit Gilbert DO [address] [place] [address] PCP - General Family Medicine 11/07/21
--- OUTSIDE RECORDS SUMMARY | 2024-12-29 17:00 | XMS_ITS | Encounter Summary ---
Author Organization [facility] Address [address] [place] [address] Care Team Providers Care Project Control Analyst Name Role Phone Link, Baljit PRETTY Primary Care Provider [phone] Encounter Details Date Type Department Care Team (Late Contact Info) Description 03/16/2023 Abstract NOMEmelia BARRERA [address] [place] [address] Lisa Gleason LPN [address] [facility] [address] [place] [address] Social History Tobacco Use Types Packs/Day Years [...] 1:50 PM EDT Routine NOMEmelia BARRERA [address] [place] [place] [address] Simona Currie PA [address] [facility] [place] [address] 03/14/2025 11:00 AM EST Office Visit [facility] [place] BARRERA [address] [facility] [place] [address] Marco A Greene DO [address] [facility] [place] [address] documented as of this encounter Visit Diagnoses Not on filedocumented in this encounter Care Teams Project Control Analyst Relationship Specialty Start Date End Date Link, MD Baljit PCP - General Family Medicine 10/20/22 documented as of this encounter
--- OUTSIDE RECORDS SUMMARY | 2024-12-29 17:00 | XMS_ITS | Encounter Summary ---
Author Organization [facility] Address [address] [place] [address] Care Team Providers Care Actuarial Science Professor Name Role Phone Link, Baljit PRETTY Primary Care Provider [phone] Encounter Details Date Type Department Care Team (Late Contact Info) Description 11/14/2022 Abstract [facility]elia BARRERA [address] [place] [address] [place] [address] Simona Currie PA [address] [place] [address] [place], [place] [address] Social History Tobacco Use Types Packs/Day Years [...] 1:50 PM EDT Routine NOMEmelia BARRERA [address] [facility] [place] [address] [place] RockSimona cobian PA [address] [facility] [place] [address] 03/14/2025 11:00 AM EST Office Visit [facility]S [place] BARRERA [address] [facility] [place] [address] Marco A Greene DO [address] [facility] [place] [address] documented as of this encounter Visit Diagnoses Not on filedocumented in this encounter Care Teams Actuarial Science Professor Relationship Specialty Start Date End Date Link, MD Baljit PCP - General Family Medicine 10/20/22 documented as of this encounter
--- OUTSIDE RECORDS SUMMARY | 2024-12-29 17:00 | XMS_ITS | Encounter Summary ---
Author Organization [facility] Address [address] [place] [address] Care Team Providers Care Uppers Edge Burnisher Name Role Phone Link, Baljit PRETTY Primary Care Provider [phone] Encounter Details Date Type Department Care Team (Late Contact Info) Description 09/29/2024 Abstract [facility] Erlinda BARRERA [address] [place] [address] Marco A Greene DO [address] [facility] [address] [place], [place] [address] Social History Tobacco Use Types Packs/Day Years [...] 01/04/2025 1:50 PM EDT Routine [facility] Erlinda BARRERA [address] [place] [address] Simona Currie PA [address] [facility] [address] [place], [facility]11 03/14/2025 11:00 AM EST Office Visit [facility] Erlinda BARRERA [address] [place] [address] Marco A Greene DO [address] [facility] [place] [address] documented as of this encounter Visit Diagnoses Not on filedocumented in this encounter Care Teams Uppers Edge Burnisher Relationship Specialty Start Date End Date Link, MD Baljit PCP - General Family Medicine 10/20/22 documented as of this encounter
--- OUTSIDE RECORDS SUMMARY | 2024-12-29 17:00 | XMS_ITS | Encounter Summary ---
Author Organization [facility] Address [address] [place] [address] Care Team Providers Care China And Silverware Salesperson Name Role Phone Link, Baljit PRETTY Primary Care Provider [phone] Encounter Details Date Type Department Care Team (Late st Contact Info) Description 09/26/2022 Clinisync Result Encounter NOMS External Department Unsolicited Marco A Greene, DO [address], [place] [address] Social History Tobacco Use Types Packs/Day Years [...] 1:50 PM EDT Routine [facility] Erlinda BARRERA [address] [place] [address] [place] [phone] Simona Currie PA [address] [place], [facility] 03/14/2025 11:00 AM EST Office Visit NOMEmelia BARRERA [address] [place] [address] Marco A Greene DO [address] [place] [address] documented as of this encounter Procedures Procedure [...] gestational sac with a live fetus - Mamou rump length is consistent with given OTF [...] Extended Nasal bone: present Anatomy Heart: Normal Van Voorhis and Situs. Stomach: Visible, with correct situs. [...] gestational sac with a live fetus - Mamou rump length is consistent with given OTF [...] Extended Nasal bone: present Anatomy Heart: Normal Van Voorhis and Situs. Stomach: Visible, with correct situs. [...] Sufficient Electronically signed by: JESS FELDMAN MD Marco A Jc DO [facility] Final Result documented in this encounter Visit Diagnoses Not on filedocumented in this encounter Care Teams China And Silverware Salesperson Relationship Specialty Start Date End Date Link, MD Baljit PCP - General Family Medicine 10/20/22 documented as of this encounter
--- OUTSIDE RECORDS SUMMARY | 2024-12-29 17:00 | XMS_ITS | Encounter Summary ---
Author Organization [facility] Address [address] [place] [address] Care Team Providers Care E Tailer Name Role Phone Link, Baljit PRETTY Primary Care Provider [phone] Encounter Details Date Type Department Care Team (Late Contact Info) Description 08/16/2024 Abstract [facility] Erlinda BARRERA [address] [facility] [place] [address] Marco A Greene DO [address] [facility] [address] [place], [place] [address] Social History Tobacco Use Types Packs/Day Years [...] PM EDT Routine [facility] Erlinda BARRERA [address] [facility] [place] [address] Simona Currie PA [address] [facility] [address] [place], [facility] 03/14/2025 11:00 AM EST Office Visit [facility] Erlinda BARRERA [address] [facility] [place] [address] Marco A Greene DO [address] [facility] [place] [address] documented as of this encounter Visit Diagnoses Not on filedocumented in this encounter Care Teams E Tailer Relationship Specialty Start Date End Date Link, MD Baljit PCP - General Family Medicine 10/20/22 documented as of this encounter
--- OUTSIDE RECORDS SUMMARY | 2024-12-29 17:00 | XMS_ITS | Encounter Summary ---
Author Organization [facility] Address [address] [place] [address] Care Team Providers Care Tying Machine Operator Name Role Phone Link, Baljit PRETTY Primary Care Provider [phone] Encounter Details Date Type Department Care Team (Late Contact Info) Description 12/22/2024 Bamboo flowsheet [facility] Erlinda BARRERA [address] [facility] [place] [address] Simona Currie PA [address] [place] [address] Dr [place], [place] [address] Social History Tobacco Use Types Packs/Day Years [...] PM EDT Routine [facility] Erlinda BARRERA [address] [facility] [place] [address] Simona Currie PA [address] [place] [address] Dr [place], [facility]11 03/14/2025 11:00 AM EST Office Visit [facility] Erlinda BARRERA [address] [facility] [place] [address] Marco A Greene DO [address] [facility] [place] [address] documented as of this encounter Visit Diagnoses Not on filedocumented in this encounter Care Teams Tying Machine Operator Relationship Specialty Start Date End Date Link, MD Baljit PCP - General Family Medicine 10/20/22 documented as of this encounter
--- OUTSIDE RECORDS SUMMARY | 2024-12-29 17:00 | XMS_ITS | Encounter Summary ---
Author Organization [facility] Address [address] [place] [address] Care Team Providers Care Sewing Machine Maintenance Mechanic Name Role Phone Link, Baljit PRETTY Primary Care Provider Encounter Details Date Type Department Care Team (Late st Contact Info) Description 03/10/2023 Clinisync Result Encounter NOMS External Department Unsolicited Silas Greene DO [address] [facility] [address] [place], [facility]11 Social History Tobacco Use Types Packs/Day [...] PM EDT Routine [facility] Erlinda OBGYN [address] [facility] [place] [phone] Simona Currie PA [address] [facility] [address] [place], [facility] 03/14/2025 11:00 AM EST Office Visit [facility] Erlinda OBGYN [address] [facility] [place] [address] JcSilas blackman, DO [address] [facility] [place] [address] documented as of this encounter Procedures Procedure [...] Narrative [facility] - 03/11/2023 11:56 AM EST Silas Greene DO [facility] Final Result [facility] TB * US OB BPP WO NON-STRESS (03/10/2023 10:23 AM EST) Anatomical Region Laterality Modality Other 03/10/2023 10:2 3 AM EST Narrative 03/10/2023 10:23 AM EST The [address] [address] Ultrasound Report Signed Patient: ANAND PERALES MR#: [id number] : 2000 Acct:[id number] Age/Sex: 22 / F ADM Date: Loc: [facility] 251-[address]: Anita Graves M.D. Ordering Physician: Silas Greene D.O. 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 Ordering Physician: Silas Greene D.O. Date of Service: 03/10/23 Procedure(s): US OB BPP wo non-stress Accession Number(s): [id number] cc: Silas Greene D.O.; Physician,Non-Staff Lane[place] [address] Patient Name: ANAND PERALES MRN: [id number] date: 2000 Sex: F Assigned Patient Location: [facility] Current Patient Location: [facility] Accession/Order Number: [id number] Exam Date: 03/10/2023 08:45 Report Date: 03/10/2023 10:23 At the request of: SILAS GREENE Procedure: US OB BPP wo non-stress [...] M.D. Signed By:03/10/23 1026 DD/ 1023 TD/TT: 7Th Grade Teacher: us Silas Greene DO [facility] Final Result documented in this encounter Visit Diagnoses Not on filedocumented in this encounter Care Teams Sewing Machine Maintenance Mechanic Relationship Specialty Start Date End Date Mac, MD Baljit PCP - General Family Medicine 10/20/22 documented as of this encounter
--- OUTSIDE RECORDS SUMMARY | 2024-12-29 17:00 | XMS_ITS | Encounter Summary ---
Author Organization [facility] Address [address] [place] [address] Care Team Providers Care Fbi Special Agent Name Role Phone Link, Baljit Gilbert DO Primary Care Provider [phone] Source Comments In the event this information is protected by the Federal Confidentiality of Alcohol and Drug AbusePatient Records regulations: The Federal rules restrict any use of the information to criminally investigate or prosecute any alcohol or drug abuse patient.[facility] Encounter Details Date Type Department Care Team (Late st Contact Info) Description 11/15/2021 Get Medical Advice Ophthalmology [address] [place] [address] Elmer Sheets, OD [address] [facility] [place] [address] Eyes Social History Tobacco Use [...] on filedocumented in this encounter Care Teams Fbi Special Agent Relationship Specialty Start Date End Date Link, Baljit Gilbert DO [address] [place] [address] PCP - General Family Medicine 11/07/21 documented as of this encounter
--- OUTSIDE RECORDS SUMMARY | 2024-12-29 17:00 | XMS_ITS | Encounter Summary ---
Author Organization [facility] Address [address] [place] [address] Care Team Providers Care Third Hand Name Role Phone Link, Baljit Gilbert DO Primary Care Provider [phone] Source Comments In the event this information is protected by the Federal Confidentiality of Alcohol and Drug AbusePatient Records regulations: The Federal rules restrict any use of the information to criminally investigate or prosecute any alcohol or drug abuse patient.[facility] Encounter Details Date Type Department Care Team (Late st Contact Info) Description 11/14/2021 Get Medical Advice Ophthalmology [address] [place] [address] Elmer Sheets, OD [address] [facility] [place] [address] Appointment Social History Tobacco Use [...] on filedocumented in this encounter Care Teams Third Hand Relationship Specialty Start Date End Date Link, Baljit Gilbert DO [address] [place] [address] PCP - General Family Medicine 11/07/21 documented as of this encounter
--- OUTSIDE RECORDS SUMMARY | 2024-12-29 17:00 | XMS_ITS | Encounter Summary ---
Author Organization [facility] Address [address] [place] [address] Care Team Providers Care Power System Dispatcher Name Role Phone Link, Baljit PRETTY Primary Care Provider [phone] Encounter Details Date Type Department Care Team (Late Contact Info) Description 01/12/2023 Clinisync Result Encounter NOMS External Department Unsolicited Silas Greene DO [address] [facility] [address] [place], [id number] Social History Tobacco Use Types Packs/Day Years [...] 01/04/2025 1:50 PM EDT Routine [facility] Erlinda OBGYVadim [address] [facility] [place] [address] Simona Currie PA [address] [facility] [place] [address] 03/14/2025 11:00 AM EST Office Visit [facility] Erlinda OBGYN [address] [facility] [place] [address] Silas Greene DO [address] [facility] [place] [address] documented as of this encounter Procedures Procedure Name Priority Date/Time Associated Diagnosis Comments US OB CERVICAL LENGTH 01/12/2023 4:57 PM EDT documented in this encounter Results * US OB CERVICAL LENGTH (01/12/2023 4:57 PM EDT) Anatomical Region Laterality Modality Other 01/12/2023 4:57 PM EDT Narrative 01/12/2023 4:57 [place] [address] Ultrasound Report Signed Patient: ANAND PERALES MR#: [id number] : 2000 Acct:[id number] Age/Sex: 22 / F ADM Date: 01/12/23 Loc: US Attending Dr: Silas Greene D.O. Ordering Physician: Silas Greene D.O. Date of Service: 01/12/23 Procedure(s): US OB cervical length Accession Number(s): [id number] cc: Silas Greene D.O. The [place] [address] Patient Name: ANAND PERALES MRN: [id number] date: 2000 Sex: F Assigned Patient Location: US Current Patient Location: US Accession/Order Number: [id number] Exam Date: 01/12/2023 08:35 Report Date: 01/12/2023 16:57 At the request of: SILAS GREENE Procedure: US OB cervical length EXAMINATION: US OB cervical length HISTORY: HISTORY OF LABOR COMPARISON: No relevant comparison available. FINDINGS: position: Cephalic presentation, longitudinal lie Cervix: Closed, 4.2 cm US/US OB cervical length IMPRESSION: Closed cervix measuring 4.2 cm in length Electronically authenticated by: JESS NICOLE Date: 01/12/2023 16:57 Dictated By: Jess Nicole M.D. Signed By: 01/12/231699 DD/ 56 TD/TT: Clerical And Office Support Workers: Procedure Note Radiology, Radiologist, MD - 01/16/2023 [place] [address] Ultrasound Report Signed Patient: ANAND PERALES EMR#: [id number] : 2000Acct:[id number] Age/Sex: 22 FADM Date: 01/12/23 Loc: US Attending Dr: Silas Greene D.O. Ordering Physician: Silas Greene D.O. Date of Service: 01/12/23 Procedure(s): US OB cervical length Accession Number(s): [id number] cc: Silas Greene D.O. The [place] [address] Patient Name: ANAND PERALES MRN: [id number] date: 2000 Sex: F Assigned Patient Location: Current Patient Location: Accession/Order Number: [id number] Exam Date: 01/12/2023 08:35 Report Date: 01/12/2023 16:57 At the request of: SILAS GREENE Procedure: US OB cervical length EXAMINATION: US OB cervical length HISTORY: HISTORY OF LABOR COMPARISON: No relevant comparison available. FINDINGS: position: Cephalic presentation, longitudinal lie Cervix: Closed, 4.2 cm US/US OB cervical length IMPRESSION: Closed cervix measuring 4.2 cm in length Electronically authenticated by: JESS NICOLE Date: 01/12/2023 16:57 Dictated By: Jess Nicole M.D. Signed By:01/12/231699 DD/ 56 TD/TT: Clerical And Office Support Workers: us Silas Jc DO [facility] Final Result documented in this encounter Visit Diagnoses Not on filedocumented in this encounter Care Teams Power System Dispatcher Relationship Specialty Start Date End Date Link, MD Baljit PCP - General Family Medicine 10/20/22 documented as of this encounter
--- OUTSIDE RECORDS SUMMARY | 2024-12-29 17:00 | XMS_ITS | Encounter Summary ---
Author Organization [facility] Address [address] [place] [address] Care Team Providers Care Manager Gyn Name Role Phone Link, Baljit PRETTY Primary Care Provider [phone] Encounter Details Date Type Department Care Team (Late st Contact Info) Description 02/09/2023 Clinisync Result Encounter NOMS External Department Unsolicited Silas Greene DO [address] [facility] [address] [place], [facility]11 Social History Tobacco [...] PM EDT Routine [facility]OM[facility] Erlinda OBGYVadim [address] [facility] [place] [phone] Simona Currie PA [address] [facility] [place] [address] 03/14/2025 11:00 AM EST Office Visit [facility] Erlinda OBGYN [address] [facility] [place] [address] Silas Greene DO [address] [facility] [place] [address] documented as of this encounter Procedures Procedure Name Priority Date/Time Associated Diagnosis Comments US OB GROWTH 02/09/2023 4:38 PM EDT documented in this encounter Results * US OB GROWTH (02/09/2023 4:38 PM EDT) Anatomical Region Laterality Modality Other 02/09/2023 4:38 PM EDT Narrative 02/09/2023 4:38 PM EDT [address] [address] Ultrasound Report Signed Patient: ANAND PERALES MR#: [id number] : 2000 Acct:[id number] Age/Sex: 22 / F ADM Date: 02/09/23 Loc: US Attending Dr: Silas Greene D.O. Ordering Physician: Silas Greene D.O. Date of Service: 02/09/23 Procedure(s): US OB growth Accession Number(s): [id number] cc: Silas Greene D.O. The [address] [address] Patient Name: ANAND PERALES MRN: [id number] date: 2000 Sex: F Assigned Patient Location: US Current Patient Location: US Accession/Order Number: [id number] Exam Date: 02/09/2023 13:00 Report Date: 02/09/2023 16:38 At the request of: SILAS GREENE Procedure: US OB growth EXAMINATION: US [...] Signed By: 02/09/23 1640 DD/ 1638 TD/TT: Companion: Procedure Note Radiology, Radiologist, MD - 02/09/2023 [place] [address] Ultrasound Report Signed Patient: ANAND PERALES EMR#: [id number] : 2000Acct:[id number] Age/Sex: 22 / FADM Date: 02/09/23 Loc: US Attending Dr: Silas Greene D.O. Ordering Physician: Silas Greene D.O. Date of Service: 02/09/23 Procedure(s): US OB growth Accession Number(s): [id number] cc: Silas Greene D.O. The [address] [address] Patient Name: ANAND PERALES MRN: [id number] date: 2000 Sex: F Assigned Patient Location: US Current Patient Location: US Accession/Order Number: [id number] Exam Date: 02/09/2023 13:00 Report Date: 02/09/2023 16:38 At the request of: SILAS GREENE Procedure: US OB growth EXAMINATION: US [...] M.D. Signed By:02/09/23 1640 DD/ 1638 TD/TT: Companion: us Silas Greene DO [facility] Final Result documented in this encounter Visit Diagnoses Not on filedocumented in this encounter Care Teams Manager Gyn Relationship Specialty Start Date End Date Mac, MD Baljit PCP - General Family Medicine 10/20/22 documented as of this encounter
--- OUTSIDE RECORDS SUMMARY | 2024-12-29 17:00 | XMS_ITS | Encounter Summary ---
Author Organization [facility] Address [facility] [place] [address] Care Team Providers Care Hot Shot Name Role Phone Unavailable Primary Care Provider Unavailabl e Encounter Details Date Type Department Care Team ([facility] st Contact Info) Description 04/25/2020 Scanned Document [facility] [address] [place] [phone] Provider, Legacy Conversion Social History Tobacco Use [...]
--- OUTSIDE RECORDS SUMMARY | 2024-12-29 17:00 | XMS_ITS | Encounter Summary ---
Author Organization [facility] Address [address] [place] [address] Care Team Providers Care Book Jacket Cover Machine Operator Name Role Phone Link, Baljit PRETTY Primary Care Provider [phone] Encounter Details Date Type Department Care Team (Late Contact Info) Description 11/10/2022 Clinisync Result Encounter NOMS External Department Unsolicited Marco A Greene DO [address] [facility] [address] [place], [facility]11 Social History Tobacco Use Types Packs/Day Years [...] PM EDT Routine NOMS Erlinda OBGYVadim [address] [facility] [place] [phone] Simona Currie PA [address] [facility] [place] [address] 03/14/2025 11:00 AM EST Office Visit [facility] Erlinda OBGYN [address] [facility] [place] [address] Marco A Greene DO [address] [facility] [place] [address] documented as of this encounter Procedures Procedure [...] EFW (oz) 10 oz EFW by: Hadlock ([id number]) Extended Grades 1 Thru 6 Visiting Teacher 7.6 mm CM 4.4 mm 35% [...] Normal LVOT view: Normal 3-vessel view: Normal 1-whehov-qaxnsnx view: Normal Heart / Thorax Situs: situs [...] 16% 29.9 48% 278 31% Impression ========= Amiejose Herrera presents for a targeted anatomic survey. [...] EFW (oz) 10 oz EFW by: Hadlock ([id number]) Extended Grades 1 Thru 6 Visiting Teacher 7.6 mm CM 4.4 mm 35% [...] Normal LVOT view: Normal 3-vessel view: Normal 4-hluamr-zbtualw view: Normal Heart / Thorax Situs: situs [...] on filedocumented in this encounter Care Teams Book Jacket Cover Machine Operator Relationship Specialty Start Date End Date Link, MD Baljit PCP - General Family Medicine 10/20/22 documented as of this encounter
--- OUTSIDE RECORDS SUMMARY | 2024-12-29 17:00 | XMS_ITS | Encounter Summary ---
Author Organization [facility] Address [address] [place] [address] Care Team Providers Care Linseed Oil Boiler Name Role Phone Link, Baljit PRETTY Primary Care Provider [phone] Encounter Details Date Type Department Care Team (Late Contact Info) Description 03/17/2024 Orders Only [facility] Erlinda BARRERA [address] [facility] [place] [address] Lisa Gleason LPN [address] [facility] [address] [place] [address] Social History Tobacco Use Types Packs/Day Years [...] PM EDT Routine [facility]OM[facility] Erlinda BARRERA [address] [facility] [place] [place] [address] Simona Currie PA [address] [facility] [address] [place], [facility] 03/14/2025 11:00 AM EST Office Visit [facility] Erlinda OBGYN [address] [facility] [place] [place] [address] Marco A Greene DO [address] [facility] [place] [address] documented as of this encounter Procedures Procedure [...] on filedocumented in this encounter Care Teams Linseed Oil Boiler Relationship Specialty Start Date End Date Link, MD Baljit PCP - General Family Medicine 10/20/22 documented as of this encounter
--- OUTSIDE RECORDS SUMMARY | 2024-12-29 17:00 | XMS_ITS | Clinical Summary ---
Author Organization [facility] Address [address] [facility], [address] [place] [address] Care Team Providers Care Water Project Manager Name Role Phone Unavailable Primary Care [...]
--- OUTSIDE RECORDS SUMMARY | 2024-12-29 17:00 | XMS_ITS | Patient Health Record ---
Author Organization [facility] Address [address] [place] [address] Care Team Providers Care Parking Attendant Name Role Phone Tanika Rosales Primary Care Provider Reason For Referral No Information Encounters Encounter Location Date Provider Diagnosis [facility] [address] [place] [address] 09/28/2024 Tanika Rosales Dental caries on pit [...] Date Dental Fink [employer] [address] [place] [address] [id number] ANAND PERALES Self - patient is the insured Dental Wrap [facility] Fink [address] [place] [address] [id number] ANAND PERALES Self - patient is the insured 5
--- OUTSIDE RECORDS SUMMARY | 2024-12-29 17:06 | XMS_ITS | CCD ---
Author Organization [facility] Care Team Providers Care Stone Lathe Operator Name Role Phone Unavailable Primary Care [...] Unavailable JC ., DR ROSEN Attending Unavailable AMARILLOKELL Attending Unavailable Jc, Dr. Marco A Zavaleta Referring Unavail able UNKNOWN, PCP Primary Care Unavailable UNKNOWN, PCP Primary Care Unavailable Jc, Dr. Marco A Zavaleta Referring Unavail able Dr. Jess Feldman Attending Unav ailable Baljit Watts MD Primary Care Provider Kathy Mccall Primary Care Physician Amos Espinoza Attending Unavailable Baljit Watts MD Primary Care Provider Unavailable Primary Care Provider Unavailjoão e MARCO A GREENE Attending Unavailable AMRCO A GREENE Attending Unavailable MARCO A GREENE [...] Ordered Start: 10-31-2021 take 1 capsule by [facility] every twelve hours amoxicillin 500 mg [...] Date: 01/31/23 Status: Ordered polyethylene glycol 3350 26887 mg powder for oral solution (1 source) [...] mouth daily 30 tablet 0 04/28/2020 Active bgl23-oqin-cudhv acid (PreNata) 29 mg iron- 1 mg tablet,chewable (1 source) rtk77-pblv-ifffs acid (PreNata) 29 mg iron- 1 mg [...] tab(s), Refill(s) 0, [facility]/pharmacy #[id number], 165, cm, 10/31/21 12:19:00 EDT, Height/Length Dosing, [...] II, MD, PHD at 15-Dec-2024 08:04:22 AM [facility] Normal Not Available Comment on above: [...] UA Negative Negative - 4(70) +++ mg/dL [facility] Blood, UA Negative Negative - 50 Gabriel/mcL [facility] Clarity, UA Clear [facility] Color, UA Yellow [facility] Glucose, UA Negative Negative - 2000(110) ++++ mg/dL [facility] Interpretation and review of laboratory results Normal [facility] Ketones, UA Negative Negative - 160(16) ++++ mg/dL [facility] Leukocytes, UA Negative Negative - 500+++ Sebastián/mcL [facility] Nitrite, UA Negative Negative - Positive [facility] pH, UA 6.5 5 - 9 [facility] Protein, UA Negative Negative - 1999(20) ++++ mg/dL [facility] Spec Grav, UA 1.005 1 - 1.03 [facility] Urobilinogen, UA 1.0 0.2 - 12 mg/dL [facility] US OB INCOMPLETE ANATOMYon 0 10-31-2024 [place] [address] Ultrasound Report Signed Patient: ANAND HERRERA MR#: [id number] : 2000 Acct:[id number] Age/Sex: 24 / F ADM Date: 10/31/24 Loc: US Attending Dr: Simona Currie Ordering Physician: Simona Currie Date of Service: 10/31/24 Procedure(s): US OB incomplete anatomy Accession Number(s): [id number] cc: Simona Currie; Physician,Non-Staff M.DIrvin The [address] [address] Patient Name: ANAND HERRERA MRN: [facility]:[id number] date: 2000 Sex: F Assigned Patient Location: Current Patient Location: US Accession/Order Number: [id number] Exam Date: 10/31/2024 09:53 Report Date: 10/31/2024 [...] normal. The spine was surveyed by the still operator gin and no abnormalities were reported. US/US OB incomplete anatomy IMPRESSION: UNREMARKABLE SPINE ASSESSMENT. Impression dictated by: Hillary Barth M.D. 10/31/2024 9:54 AM Dictation Location: [place] [address] Electronically authenticated by: [id number] Y Date: 10/31/2024 09:54 Dictated By: Hillary Barth M.D. Signed By: 10/31/24 0957 DD/ 0954 TD/TT: It Corporate Recruiter: [facility], Radiologist, MD - 10/31/2024 The [place] [id number] Ultrasound Report Signed Patient: ANAND HERRERA MR#: [id number] : 2000 Acct:[id number] Age/Sex: 24 / F ADM Date: 10/31/24 Loc: US Attending Dr: Simona Currie Ordering Physician: Simona Currie Date of Service: 10/31/24 Procedure(s): US OB incomplete anatomy Accession Number(s): [id number] cc: Simona Currie; Physician,Non-Staff [place] The [address] [address] Patient Name: ANAND HERRERA MRN: [facility]:[id number] date: 2000 Sex: F Assigned Patient Location: Current Patient Location: Accession/Order Number: [id number] Exam Date: 10/31/2024 09:53 Report Date: 10/31/2024 [...] normal. The spine was surveyed by the still operator gin and no abnormalities were reported. US/US OB incomplete anatomy IMPRESSION: UNREMARKABLE SPINE ASSESSMENT. Impression dictated by: Hillary Barth M.D. 10/31/2024 9:54 AM Dictation Location: [place] [address] Electronically authenticated by: [id number] Y Date: 10/31/2024 09:54 Dictated By: Hillary Barth M.D. Signed By: 10/31/24 0957 DD/ TD/TT: It Corporate Recruiter: [facility] Radiology Study observation (narrative) [facility] US OB INCOMPLETE ANATOMYOrde red By: Radiologist Radiology on 10-31-2024 [facility] Work Phone: Urinalysis macro (dipstick) panel (U)on 10-25-2024 Bilirubin, UA Negative Negative - 4(70) +++ mg/dL [facility] Blood, UA Negative Negative - 50 Gabriel/mcL [facility] Clarity, UA Clear [facility] Color, UA Yellow [facility] Glucose, UA Negative Negative - 1999(110) ++++ mg/dL [facility] Interpretation and review of laboratory results Normal [facility] Ketones, UA Negative Negative - 160(16) ++++ mg/dL [facility] Leukocytes, UA Negative Negative - 500+++ Sebastián/mcL [facility] Nitrite, UA Negative Negative - Positive [facility] pH, UA 6.5 5 - 9 [facility] Protein, UA Negative Negative - 2000(20) ++++ mg/dL [facility] Spec Grav, UA 1.02 1 - 1.03 [facility] Urobilinogen, UA 0.2 0.2 - 12 mg/dL [facility] RECURRENT VAGINITIS (HTRX)on 09-29-2024 ATOPOBIUM VAGINAE 0 [facility] ATOPOBIUM VAGINAE Not detected [facility] BVAB 2,3 (BACTERIAL VAGINOSIS ASSOCIATED BACTERIA 2, 3); MOBILUNCUS SPP 0 [facility] BVAB 2,3 (BACTERIAL VAGINOSIS ASSOCIATED BACTERIA 2, 3); MOBILUNCUS SPP Not detected [facility] EBONIE ALBICANS, PARAPSILOSIS, TROPICALIS 27.336 Abnormal [facility] EBONIE ALBICANS, PARAPSILOSIS, TROPICALIS Detected Abnormal [facility] EBONIE GLABRATA 0 [facility] EBONIE GLABRATA Not detected [facility] EBONIE KRUSEI 0 [facility] EBONIE KRUSEI Not detected [facility] CHLAMYDIA TRACHOMATIS 0 [facility] CHLAMYDIA TRACHOMATIS Not detected N [facility] GARDNERELLA VAGINALIS 0 [facility] GARDNERELLA VAGINALIS Not detected N [facility] Interpretation and review of laboratory results Abnormal [facility] MEGASPHAERA (TYPES 1, 2) 0 [facility] MEGASPHAERA (TYPES 1, 2) Not detected [facility] MYCOPLASMA GENITALIUM 0 [facility] MYCOPLASMA GENITALIUM Not detected N [facility] NEISSERIA GONORRHOEAE 0 [facility] NEISSERIA GONORRHOEAE Not detected N [facility] TRICHOMONAS VAGINALIS 0 [facility] TRICHOMONAS VAGINALIS Not detected N [facility] Urinalysis macro (dipstick) panel (U)on 09-27-2024 Bilirubin, UA Negative Negative - 4(70) +++ mg/dL [facility] Blood, UA Negative Negative - 50 Gabriel/mcL [facility] Clarity, UA Clear [facility] Color, UA Yellow [facility] Glucose, UA Negative Negative - 1999(110) ++++ mg/dL [facility] Interpretation and review of laboratory results Normal [facility] Ketones, UA Negative Negative - 160(16) ++++ mg/dL [facility] Leukocytes, UA Negative Negative - 500+++ Sebastián/mcL [facility] Nitrite, UA Negative Negative - Positive [facility] pH, UA 7 5 - 9 [facility] Protein, UA Negative Negative - 1999(20) ++++ mg/dL [facility] Spec Grav, UA 1.015 1 - 1.03 [facility] Urobilinogen, UA 0.2 0.2 - 12 mg/dL [facility] US for pregnancyon Interpreted by: Doretha Marie [...] EFW (oz) 4 oz EFW by: Hadlock (ASZ-OQ-XX-FL) Head / Face / Neck Cephalic index 0.71 <1% Nicolaides Extremities / Bony Struc FL / BPD 0.54 14% Hadlock FL / HC 0.14 5% Hadlock FL / AC 0.16 1% Hadlock Other Structures FHR 150 bpm Anatomy Heart: Normal Clearfield and Situs. Stomach: Visible, with correct situs. Arms: Both Upper Extremities Seen. Legs: Both Lower Extremities Seen. The following structures appear normal: Cranium. Head size. Head shape. Brain. Right choroid plexus. Left choroid plexus. Midline falx. Thalami. Cerebellum. Face. Profile. Cardiac axis. 4-chamber view. 2-fnvubn-kkwggjf view. Thorax. Diaphragm. Abdominal wall. Cord insertion. [...] Suspect Anomaly History ====== General History Smoking:No Qmtlns533 cm Height (ft)5 ft Height (in)6 in Previous Outcomes Gravida3 Para2 Children born living ?37w1 Pregnancies delivered at term (T)1 Pregnancies delivered (P)1 Living children (L)2 Children born living <37w1 Other:Previous Section x2 Maternal Assessment Ftobyv074 cm Height (ft)5 ft Height (in)6 in Jqmend69 kg Weight (lb)155 lb Weight gain0 kg Weight gain (lb)0 lb BMI25.02 kg/m Physical Exam Initial weight (lb)155 lb ========= Prakash . Number of fetuses: 1 Dating ====== Prior assessment by:per outside ultrasound GA by prior zczpalcsvf56 w + 6 d OTF by prior [...] 24% Hadlock HC / AC1.19 31% Hadlock SAL520 g14w 4d 35% Hadlock EFW (lb)0 lb EFW (oz)4 oz EFW by:Hadlock (BWB-OR-JL-FL) Head / Face / Neck Cephalic index0.71 <1% Nicolaides Extremities / Bony Struc FL / BPD0.54 14% Hadlock FL / HC0.14 5% Hadlock FL / AC0.16 1% Hadlock Other Structures XSW020 bpm Anatomy Heart: Normal Clearfield and Situs. Stomach: Visible, with correct situs. Arms: Both Upper Extremities Seen. Legs: Both Lower Extremities Seen. The following structures appear normal: Cranium. Head size. Head shape. Brain. Right choroid plexus. Left choroid plexus. Midline falx. Thalami. Cerebellum. Face. Profile. Cardiac axis. 4-chamber view. 7-dpmanz-qixlfze view. Thorax. Diaphragm. Abdominal wall. Cord insertion. Large bowel. Right kidney. Left kidney. Bladder. The following structures could not be adequately visualized: Spine. sex: female Maternal Structures Uterus / Cervix Uterus:Normal Cervix:Visualized Cervix details:Normal Cervical .3 mm Ovaries / Tubes / Adnexa Rt ovary:Visualized Rt ovary details:Normal Rt ovary D125.0 mm Rt ovary D220.9 mm Rt ovary D320.0 mm Rt ovary Vol5.5 cm Lt ovary:Visualized Lt ovary details:Normal Lt ovary D129.4 mm Lt ovary D234.0 mm Lt ovary D315.1 mm Lt ovary Vol7.9 cm Method ====== Transabdominal ultrasound examination. View: Suboptimal view: limited by early gestational age [facility] Work Phone: Source Facility: [facility] Interpreted by: Doretha Marie Indication ======== [...] EFW (oz) 4 oz EFW by: Hadlock (JZH-XN-UF-FL) Head / Face / Neck Cephalic index 0.71 <1% Nicolaides Extremities / Bony Struc FL / BPD 0.54 14% Hadlock FL / HC 0.14 5% Hadlock FL / AC 0.16 1% Hadlock Other Structures FHR 150 bpm Anatomy Heart: Normal Clearfield and Situs. Stomach: Visible, with correct situs. Arms: Both Upper Extremities Seen. Legs: Both Lower Extremities Seen. The following structures appear normal: Cranium. Head size. Head shape. Brain. Right choroid plexus. Left choroid plexus. Midline falx. Thalami. Cerebellum. Face. Profile. Cardiac axis. 4-chamber view. 2-nucrjn-gzmiisz view. Thorax. Diaphragm. Abdominal wall. Cord insertion. [...] Radiology, Radiologist, MD - 08/16/2024 Source Facility: [facility] Interpreted by: Doretha Marie Indication ======== [...] GA 14 w + 6 d Assigned OFT: 02/08/2025 Impression ========= REMOTE READ: Patient presents [...] EFW (oz) 4 oz EFW by: Hadlock (PYT-FB-KS-FL) Head / Face / Neck Cephalic index 0.71 <1% Nicolaides Extremities / Bony Struc FL / BPD 0.54 14% Hadlock FL / HC 0.14 5% Hadlock FL / AC 0.16 1% Hadlock Other Structures FHR 150 bpm Anatomy Heart: Normal Clearfield and Situs. Stomach: Visible, with correct situs. Arms: Both Upper Extremities Seen. Legs: Both Lower Extremities Seen. The following structures appear normal: Cranium. Head size. Head shape. Brain. Right choroid plexus. Left choroid plexus. Midline falx. Thalami. Cerebellum. Face. Profile. Cardiac axis. 4-chamber view. 8-wdbclh-afbwkvo view. Thorax. Diaphragm. Abdominal wall. Cord insertion. [...] Suboptimal view: limited by early gestational age [facility] Radiology Study observation (narrative) [facility] Work Phone: Radiology Study observation (narrative) [facility] US for pregnancyOrdered By: Doretha Marie on 08-16-2024 [facility] Work Phone: US for pregnancyOrdered By: Radiologist Radiology on 08-16-2024 [facility] Work Phone: Urinalysis macro (dipstick) panel (U)on 08-01-2024 Bilirubin, UA Negative Negative - 4(70) +++ mg/dL [facility] Blood, UA Negative Negative - 50 Gabriel/mcL [facility] Clarity, UA Clear [facility] Color, UA Yellow [facility] Glucose, UA Negative Negative - 2000(110) ++++ mg/dL [facility] Interpretation and review of laboratory results Normal [facility] Ketones, UA Negative Negative - 160(16) ++++ mg/dL [facility] Leukocytes, UA Negative Negative - 500+++ Sebastián/mcL [facility] Nitrite, UA Negative Negative - Positive [facility] pH, UA 7 5 - 9 [facility] Protein, UA Negative Negative - 1999(20) ++++ mg/dL [facility] Spec Grav, UA 1.02 1 - 1.03 [facility] Urobilinogen, UA 0.2 0.2 - 12 mg/dL [facility] BOX TESTon 07-07-2024 BOX TEST SENT OUT [facility] BOX1 [facility] BOX2 07/07/24 [facility] US OB TRANSVAGINALon 025 US OB [...] II, MD, PHD at 02-Jul-2024 09:14:34 AM [facility] Normal Not Available Comment on above: Order Comment: US OB TRANSVAGINAL No LMP recorded. ED Clinical Summaryon 2023 ED Clinical Summary ED Clinical Summary [place] [id number] ED Clinical Summary Person Information Name: ANAND HERRERA[place] Age: 23 Years : 2000 Sex: Female Language: Bengali PCP: Kathy Mccall DO Marital Status: Single Phone: [phone] Visit Id: Visit Reason: Ear pain; RIGHT [...] 01:34:08 04/19/2024 01:34:08 04/19/2024 01:34:08 [address] [place] [facility] [id number] PHYS DOC NOTES: MEDICAL INFORMATION: Prescriptions Given: [...] With: Address: When: Kathy Montenegro, Chauncey , [address] [address] Business (1) In 3 days 04/22/2024 Comments: Return to the emergency room if your pain recurs or any new symptoms. DIAGNOSIS: 1:Ear pain, right; 2:Upper respiratory infection Normal [facility] ED Note-Physicianon 04-19-20 ED Note-Physician ED [...] and Complexity of Problems Differential Diagnosis: [] [facility] Data External documents reviewed: [] My EKG [...] home. She was instructed to take decongestion pyez-fbt-ogfviya. 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 Living situation: Home/Independent. Alcohol abuse in household: No. Substance abuse in household: No. Smoker in household: No., (more content not included)... Normal [facility] Comment on above: Result Comment: Elec tronically Signed By: Amos Espinoza M.D.\.br\Date and Time Signed: 04/19/24 03:09 EST ED Patient Summaryon 024 ED Patient Summary ED Patient Summary [address] [address] Patient Discharge Instructions Person Information Name: ANAND HERRERA Age: 23 Years Arrival Date: 04/19/2024 01:04:22 Discharge Diagnosis: 1:Ear pain, right; 2:Upper respiratory infection Primary Care Physician: Kathy Mccall DO Provider Information Primary Provider: Amos Espinoza M.D. Advanced Bench Shear Operator:None The exam and treatment you received in the Emergency Department were for an urgent problem and are not intended as complete care. It is important that you follow up with a doctor, nurse practitioner, or physician???s public relations assistant for ongoing care. If your symptoms [...] Follow-up Instructions: With: Address: When: Kathy Mccall [address] [place] [address], [address] [address] Business (1) In 3 days [...] opioids can be used to help relieve prsghsou-fz-mmttkb pain and are often prescribed following a [...] to learn (more content not included)... Normal [facility] IGP,APTIMA HPV,AGE GDLNon AGE GDLN ACOG TESTING Note . [facility] Comment on above: TESTS RESULT FLAG UN ITS REF RANGE LAB Clinician Provided Cytology Information Source.............Cervix;Endocervix No. of containers..01 ThinPrep Vial Age Algo ACOG Magdalene... FLAG LEGEND: L-Low Normal,H-High Normal,LL-Alert Low,HH-Alert High <-Panic Low,>-Panic High,A-Abnormal,AA-Critical Abnormal Performed at: 01 =G [address] [facility] [place] [address] Clara Castro MD, IGP, RFX APTIMA HPV ASCU Note . [facility] Comment on above: TESTS RESULT FLAG U NITS REF RANGE LAB DIAGNOSIS: 02 NEGATIVE FOR INTRAEPITHELIAL LESION OR MALIGNANCY. Specimen adequacy: 02 Satisfactory for evaluation. Endocervical and/or squamous metaplastic cells (endocervical component) are present. Performed by: 02 Simona Platt, Oracle Consultant ([facility]) . 02 Note: Note 02 The Pap smear is a screening test designed to aid in the detection of premalignant and malignant conditions of the uterine cervix. It is not a diagnostic procedure and should not be used as the sole means of detecting cervical cancer. Both false-positive and false-negative reports do occur. Test Methodology: Note 02 The LOVEThESIGN(R) Liner Roll Changer was unable to read this specimen. Therefore a manual review was performed. FLAG LEGEND: L-Low Normal,H-High Normal,LL-Alert Low,HH-Alert High <-Panic Low,>-Panic High,A-Abnormal,AA-Critical Abnormal Performed at: [address] [facility] [place] [address] Clara Castro MD, . 02 The HPV DNA reflex criteria were not met with this specimen result therefore, no HPV testing was performed. The HPV DNA reflex criteria were not met with this specimen result therefore, no HPV testing was performed. Performed at: =G - [facility] [place] [id number] Supervisory Cbp Officer: Clara Castro MD, Phone: [phone] Performed at: - [facility] [id number] Supervisory Cbp Officer: Clara Castro MD, Phone: [phone] BRUSH-SPATULA CERVIX ENDOCERVIX [facility] OB Completed scan + Detailed Anatomyon 11-10-2022 [...] EFW (oz) 10 oz EFW by: Hadlock (VEG-ME-DI-FL) Extended Personal Financial Counselor 7.6 mm CM 4.4 mm 35% Nicolaides [...] Normal LVOT view: Normal 3-vessel view: Normal 8-qlgwuo-efeugob view: Normal Heart / Thorax Situs: situs [...] sex (more content not included)... Normal [facility] OB NT (Nuchal Translucency)o n 09-26-2022 OB [...] gestational sac with a live fetus - Mcarthur rump length is consistent with given OTF [...] Extended Nasal bone: present Anatomy Heart: Normal Clearfield and Situs. Stomach: Visible, with correct situs. [...] Electronically signed by: JESS FELDMAN MD Normal [facility] HEP B SURFACE ANTIGEN SCREEN on 09-05-2022 HBsAg Screen Negative Normal Negative [facility] Comment on above: Performed By: #### H BSANS #### [facility] [address] [place] [address] [address] Stoney Rodriguez HEPATITIS C VIRUS AB W/ REFL EX QUANTon 09-05-2022 HCV AB Non-Reactive Normal Non Reactive [facility] Comment on above: Performed By: #### H CVPCRR #### [facility] [address] [place] [address] [address] Stoney Rodriguez Interpretation: Comment Normal [facility] Comment on above: Result Comment: Not infected with HCV unless early or acute infection is suspected (which may be delayed in an immunocompromised individual), or other evidence exists to indicate HCV infection. Performed By: #### H CVPCRR #### [facility] [address] [place] [address] Dr. Stoney Rodriguez HIV 1 AND 2 WITH REFLEXon HIV Screen 4th Generation wRfx Non-Reactive Normal Non Reactive [facility] Comment on above: Result Comment: HIV Negative HIV-1/HIV-2 antibodies and HIV-1 p24 antigen were NOT detected. There is no laboratory evidence of HIV infection. Performed By: #### T NS #### [facility] [address] [place] [address] Dr. Stoney Rodriguez RPR QUANTon 09-05-2022 Rapid Plasma Reagin, Quant Non-Reactive Normal NonRea<1:1 [facility] Comment on above: Result Comment: Plea se Note: This test does not meet current guidelines for screening and diagnosis of syphilis. This test is intended for following treatment response in patients being treated for syphilis infection. To screen for syphilis infection, a reflex cascade that includes both RPR and a treponema-specific assay should be utilized, such as Treponema pallidum (Syphilis) Screening Walker (172864) or Rapid Plasma Reagin (RPR) Test With Reflex to Quantitative RPR and Confirmatory Treponema pallidum Antibodies (438634). Performed By: #### R PRQ #### [facility] [address] [place] [address] Dr. Stoney Rodriguez RUBELLA AB IGGon 09-05-2022 Rubella Antibodies, IgG 11.40 index Normal Immune >0.99 [facility] Comment on above: Result Comment: Non- immune <0.90 Equivocal 0.90 - 0.99 Immune >0.99 Performed By: #### R UBIGG #### [facility] [address] [place] [address] Dr. Stoney Rodriguez BOX TEST SENT OUTon 09-05-19 23 SENT TO REF LAB 09/04/22 Normal [facility] Comment on above: Performed By: #### B OX #### [facility] [address] [place] [address] Dr. Stoney Rodriguez CBC AUTO DIFFon 09-04-2022 BASO # 0.0 103/ul Normal 0.0-0.1 [facility] Comment on above: Performed By: #### C BC #### [facility] [address] [place] [address] Dr. Stoney Rodriguez Basophils/100 WBC (Bld) 0.4 % Normal 0.2-2.0 [facility] Comment on above: Performed By: #### C BC #### [facility] [address] [place] [address] Dr. Stoney Rodriguez EO # 0.1 103/ul Normal 0.0-0.7 [facility] Comment on above: Performed By: #### C BC #### [facility] [address] [place] [address] Dr. Stoney Rodriguez Eosinophils/100 WBC (Bld) 0.7 % Critically low 0.9-7.0 [facility] Comment on above: Performed By: #### C BC #### [facility] [address] [place] [address] Dr. Stoney Rodriguez Erythrocyte distribution width (RBC) [Ratio] 14.5 % Normal 11.0-15.0 [facility] Comment on above: Performed By: #### C BC #### [facility] [address] [place] [address] Dr. Stoney Rodriguez Hematocrit (Bld) [Volume fraction] 36.7 % Normal 36.0-48.0 [facility] Comment on above: Performed By: #### C BC #### [facility] [address] [place] [address] Dr. Stoney Rodriguez Hemoglobin (Bld) [Mass/Vol] 11.9 g/dL Critically low 12.0-16.0 [facility] Comment on above: Performed By: #### C BC #### [facility] [address] [place] [address] Dr. Stoney Rodriguez IG # 0.03 10e3/ul Normal 0.00-0.03 [facility] Comment on above: Performed By: #### C BC #### [facility] [address] [place] [address] Dr. Stoney Rodriguez IG % 0.4 % Normal 0.0-0.5 [facility] Comment on above: Performed By: #### C BC #### [facility] [address] [place] [address] Dr. Stoney Rodriguez LYMPH # 2.0 103/ul Normal 1.2-3.8 [facility] Comment on above: Performed By: #### C BC #### [facility] [address] [place] [address] Dr. Stoney Rodriguez Lymphocytes/100 WBC (Bld) 23.3 % Normal 20.5-60.0 [facility] Comment on above: Performed By: #### C BC #### [facility] [address] [place] [address] Dr. Stoney Rodriguez MANUAL DIFF REQ NO Normal [facility] Comment on above: Performed By: #### C BC #### [facility] [address] [place] [address] Dr. Stoney Rodriguez MCH (RBC) [Entitic mass] 28.7 pg Normal 26.7-34.0 [facility] Comment on above: Performed By: #### C BC #### [facility] [address] [place] [address] Dr. Stoney Rodriguez MCHC (RBC) [Mass/Vol] 32.4 g/dL Normal 29.9-35.2 [facility] Comment on above: Performed By: #### C BC #### [facility] [address] [address] [address] Stoney Rodriguez MCV (RBC) [Entitic vol] 88.6 fL Normal 81.0-99.0 [facility] Comment on above: Performed By: #### C BC #### [facility] [address] [address] [address] Stoney Rodriguez MONO # 0.5 103/ul Normal 0.3-0.8 [facility] Comment on above: Performed By: #### C BC #### [facility] [address] [place] [address] Dr. Stoney Rodriguez Monocytes/100 WBC (Bld) 6.2 % Normal 1.7-12.0 [facility] Comment on above: Performed By: #### C BC #### [facility] [address] [place] [address] Dr. Stoney Rodriguez NEUT # 5.9 103/ul Normal 1.4-6.5 [facility] Comment on above: Performed By: #### C BC #### [facility] [address] [place] [address] Dr. Stoney Rodriguez Neutrophils/100 WBC (Bld) 69.0 % Normal 43.0-75.0 [facility] Comment on above: Performed By: #### C BC #### [facility] [address] [address] [address] Stoney Rodriguez Platelet mean volume (Bld) [Entitic vol] 9.7 fL Normal 9.5-13.5 [facility] Comment on above: Performed By: #### C BC #### [facility] [address] [address] [address] Stoney Rodriguez PLT 378 103/ul Normal 150-450 [facility] Comment on above: Performed By: #### C BC #### [facility] [address] [place] [address] Dr. Stoney Rodriguez RBC 4.14 106/ul Critically low 4.20-5.40 [facility] Comment on above: Performed By: #### C BC #### [facility] [address] [place] [address] Dr. Stoney Rodriguez WBC 8.5 103/ul Normal 4.0-11.0 [facility] Comment on above: Performed By: #### C BC #### [facility] [address] [place] [address] Dr. Stoney Rodriguez CULTURE URINEon 09-04-2022 CULTURE URINE Culture Observations : NO GROWTH. Normal [facility] Comment on above: Performed By: #### U RCX #### [facility] [address] [place] [address] Dr. Stoney Rodriguez GLYCOHEMOGLOBIN A1Con 2022 ADA RECOMMENDATION SEE BELOW Normal [facility] Comment on above: Result Comment: ADA RECOMMENDED LIMIT 4.0 - 6.0 ADA THERAPEUTIC TARGET < 7.0 ACTION SUGGESTED > 7.0 Performed By: #### A 1C #### [facility] [address] [place] [address] Dr. Stoney Rodriguez Glucose [Mass/Vol] 94 mg/dL Normal [facility] Comment on above: Performed By: #### A 1C #### [facility] [address] [place] [address] Dr. Stoney Rodriguez HbA1c (Bld) [Mass fraction] 4.9 % Normal 4.5-6.2 [facility] Comment on above: Performed By: #### A 1C #### [facility] [address] [place] [address] Dr. Stoney Rodriguez TSHon 09-04-2022 TSH 0.653 uIU/mL Normal 0.358-3.740 [facility] Comment on above: Performed By: #### T SH #### [facility] [address] [place] [address] Dr. Stoney Rodriguez TYPE AND SCREENon 09-04-2022 TYPE AND SCREEN Negative Normal [facility] Comment on above: Performed By: #### T NS #### [facility] [address] [place] [address] Dr. Stoney Rodriguez US PREG TVon 08-14-2022 [...] by: BILLIE SMITH Date: 2022-08-14 16:07 Normal [facility] CHEMISTRYOrdered By: Ida Mcfarland on 12-19-2021 Anion gap [Moles/Vol] 11 mmol/L Normal 6 - 16 mEq/L [facility] Remisol Calcium [Mass/Vol] 8.9 mg/dL Normal 8.9 [...] 18 mg/dL Normal 5 - 21 mg/dL [facility] Remisol Urea nitrogen/Creatinine [Mass ratio] 20 mg/mg Normal 10 - 20 [facility] Remisol CHEMISTRYOrdered By: SYSTEM SYSTEM on 12-19-2021 GFR/1.73 sq M.predicted among blacks MDRD (S/P/Bld) [Vol rate/Area] mL/min/1.73 m2 Normal >=59mL/min/1 .73 m2 [facility] Chem S GFR/1.73 sq M.predicted among non-blacks MDRD (S/P/Bld) [Vol rate/Area] mL/min/1.73 m2 Normal >=59mL/min/1 .73 m2 [facility] Chem S COAGULATIONOrdered By: Randall Mcfarland on 12-19-2021 aPTT Coag (PPP) [Time] 30.1 s Normal 25.1 - 36.5 second(s) [facility] INR Coag (PPP) [Relative time] 0.9 {INR} Invalid Interpretation Code [facility] PT Coag (PPP) [Time] 9.9 s Normal 9.4 - 1 2.5 second(s) [facility] Auto Coag HEMATOLOGYOrdered By: SYSTEM SYSTEM on [...] hCG Ql Negative (12/19/21 2:12 AM) Normal [facility] Man Sero CULTURE URINEon 04-28-2020 CULTURE URINE [...] <= 1 S Amikacin(JAI) 4 S Normal [facility] Comment on above: Performed By: #### C /UR ####[address] [id number] [id number] Culture, Urineon 04-28-2020 Bacteria identified Cx Nom (U) 10,000-50,000 CFU/ml [place], [place] Bacteria identified Cx Nom (U) Normal urogenital praneeth present. Abnormal [place], [place] Bacteria identified Cx Nom (U) Escherichia coli Abnormal [facility], [place] Interpretation and review of laboratory results Abnormal [facility], [place] Test Performed by [id number] [place] [address] Hemoglobinon 04-27-2020 Hemoglobin (Bld) [Mass/Vol] 7.1 g/dL Low 11.7-16.0 [facility] Comment on above: Performed By: #### H EMGB #### [address] [address] Hemoglobin (Bld) [Mass/Vol] 7.1 g/dL Low 11.7 - 16 g/dL [place] Interpretation and review of laboratory results Abnormal [place] Test Performed by [address] [address] [place] Group B Strep Screen PCRon 1 [...] Methodology - Real Time PCR (Cepheid) Normal [facility] Comment on above: Performed By: #### G [facility] ####[facility] [place] [address] Group B Strep, PCRon 020 Group B Strep Screen PCR NEGATIVE Expected Result: Negative CDC guidelines for prevention of Group B Strep disease recommends collection of both vaginal and rectal specimens for optimal recovery of GBS. Methodology - Real Time PCR (Cepheid) [place] Test Performed by [facility], [address] [place] [address] [place], [place] Op Noteon 04-26-2020 Op Note PATIENT: [...] She also did have a TAP block. Door Builder: Dr. Benjamin. Replacement: 1500 cc of crystalloid. [...] 1500 cc of crystalloid. Diskriter Job ID: [id number] Zac Chowdhury MD DOD:04/26/2020 07:56 A JAKUB/kimmy DOT:04/26/2020 10:55 A Job Number: [id number] Document Number: [id number] cc: [place] [address] [place] [address] Fariha Matos, [address] [facility] [address] Normal [facility] C. Trachomatis / N. Gonorrho eae, DNA Probeon 04-25-2020 C. trachomatis DNA ARCHANA+probe Ql (Genital specimen) NOT Detected Chlamydia trachomatis Nucleic Acid NOT Detected by DNA Amplification using the Cepheid System. Culture is the only recommended test in medical-legal cases such as suspected child abuse or molestation. [place] N. gonorrhoeae DNA ARCHANA+probe Ql (Unsp spec) NOT Detected Neisseria gonorrhoeae Nucleic Acid NOT Detected by DNA Amplification using the Cepheid System. Culture is the only recommended test in medical-legal cases such as suspected child abuse or molestation. [place] Test Performed by [facility], [address] [place] [id number] [place] [address] CBCon 04-25-2020 Erythrocyte distribution width (RBC) [Ratio] 18.2 % High 11.5 - 14.5 % [place] Hematocrit (Bld) [Volume fraction] 30.6 % Low 35 - 47 % [place] Hemoglobin (Bld) [Mass/Vol] 9.7 g/dL Low 11.7 - 16 g/dL [place] Interpretation and review of laboratory results Abnormal [place] MCH (RBC) [Entitic mass] 26.2 pg 26 - 34 pg [place] MCHC (RBC) [Mass/Vol] 31.9 % Low 32 - 36 % [place] MCV (RBC) [Entitic vol] 82.2 fL 79 - 98 fL [place] Platelet mean volume (Bld) [Entitic vol] 8.1 fL 7.4 - 10.4 fL [place] Platelets (Bld) [#/Vol] 249 10*3/uL 140 - 440 10*3/uL [place] RBC (Bld) [#/Vol] 3.72 10*6/uL Low 3.8 - 5.2 10*6/uL [place] WBC (Bld) [#/Vol] 13.3 10*3/uL High 3.6 - 10.7 10*3/uL [place] Test Performed by [facility] [employer] [facility], [address] [place] [id number] [place] [address] CREATININE, RANDOM URINEon 1 Creatinine (U) [Mass/Vol] 66.8 mg/dL No Range [place], [place] Chlamydia and GC PCR Panelon 04-25-2020 Chlamydia and GC PCR Panel Chlamydia trachomatis PCR --> Status: F NOT Detected Chlamydia trachomatis Nucleic Acid NOT Detected by DNA Amplification using the Loop88id System. Culture is the only recommended test [...] NOT Detected by DNA Amplification using the CepMediVisionid System. Culture is the only recommended test in medical-legal cases such as suspected child abuse or molestation. Neisseria gonorrhoeae Nucleic Acid NOT Detected by DNA Amplification using the TurboHeads System. Culture is the only recommended test in medical-legal cases such as suspected child abuse or molestation. Normal [facility] Comment on above: Performed By: #### C TNGP ####[facility] [place], [place] Comp Metabolic Panelon 04-25 Calcium [Mass/Vol] 8.5 mg/dL Normal 8.4-10.4 [facility] Comment on above: Performed By: #### P T/AP, CMP3, HEMOG, FIBGN #### [facility] [address] [place], [place] Glucose [Mass/Vol] 97 mg/dL Normal 70-100 [facility] Comment on above: Performed By: #### P T/AP, CMP3, HEMOG, FIBGN #### [facility] [address], [place] ALP [Catalytic activity/Vol] 114 U/L Normal 38-126 [facility] Comment on above: Result Comment: Slig htly hemolysed, interpret with caution. Performed By: #### P T/AP, CMP3, HEMOG, FIBGN #### [facility] [address], [place] ALT [Catalytic activity/Vol] 19 U/L Normal 0-34 [facility] Comment on above: Result Comment: The ALT test is performed by an updated assay method. Please note that the reference intervals have been changed and are now sex specific. Performed By: #### P T/AP, CMP3, HEMOG, FIBGN #### [facility] [address], [place] Anion Gap 6 Normal [facility] Comment on above: Performed By: #### P T/AP, CMP3, HEMOG, FIBGN #### [facility] [address], [place] AST [Catalytic activity/Vol] 39 U/L Normal 15-46 [facility] Comment on above: Result Comment: Slig htly hemolysed, interpret with caution. Performed By: #### P T/AP, CMP3, HEMOG, FIBGN #### [facility] [address], [place] Bilirubin [Mass/Vol] 0.5 mg/dL Normal 0.2-1.3 [facility] Comment on above: Performed By: #### P T/AP, CMP3, HEMOG, FIBGN #### [facility] [address], [place] CO2 [Moles/Vol] 20 mmol/L Low 22-30 [facility] Comment on above: Performed By: #### P T/AP, CMP3, HEMOG, FIBGN #### [address] Creatinine [Mass/Vol] 0.63 mg/dL Normal 0.52-1.25 [facility] Comment on above: Performed By: #### P T/AP, CMP3, HEMOG, FIBGN #### [address] [address] [place], [place] eGFR OTHER > 90.0 Normal >60 [facility] Comment on above: Result Comment: KDIG [...] #### P T/AP, CMP3, HEMOG, FIBGN #### [facility] [address], [place] GFR/1.73 sq M.predicted among blacks MDRD (S/P/Bld) [Vol rate/Area] mL/min/{1.73_m2} Normal >60 [facility] Comment on above: Performed By: #### P T/AP, CMP3, HEMOG, FIBGN #### [facility] [address], [place] Protein [Mass/Vol] 6.9 g/dL Normal 6.3-8.2 [facility] Comment on above: Performed By: #### P T/AP, CMP3, HEMOG, FIBGN #### [address] [address] [address] [place], [place] Urea nitrogen [Mass/Vol] 14 mg/dL Normal 7-20 [facility] Comment on above: Performed By: #### P T/AP, CMP3, HEMOG, FIBGN #### [address] [address] [address] [place], [place] Potassium [Moles/Vol] 4.3 mmol/L Normal 3.5-5.1 [facility] Comment on above: Result Comment: Slig htly hemolysed, interpret with caution. Performed By: #### P T/AP, CMP3, HEMOG, FIBGN #### [address] [address] [address] [place], [place] Sodium [Moles/Vol] 134 mmol/L Low 135-145 [facility] Comment on above: Performed By: #### P T/AP, CMP3, HEMOG, FIBGN #### [address] [address] [address] [place], [place] Albumin [Mass/Vol] 3.4 g/dL Low 3.5-5.0 [facility] Comment on above: Performed By: #### P T/AP, CMP3, HEMOG, FIBGN #### [address] [address] [address] [place], [place] Chloride [Moles/Vol] 107 mmol/L Normal 98-107 [facility] Comment on above: Performed By: #### P T/AP, CMP3, HEMOG, FIBGN #### [address] [address] [address] [place], [place] Comprehensive Metabolic Pane parag 04-25-2020 Albumin [Mass/Vol] 3.4 g/dL Low 3.5 - 5 g/dL [place], [place] ALP [Catalytic activity/Vol] 114 U/L 38 - 126 U/L [place] Comment on above: Slightly hemolysed, interpret with caution. ALT [Catalytic activity/Vol] 19 U/L 0 - 34 U/L [place] Comment on above: The ALT test is perf ormed by an updated assay method. Please note that the reference intervals have been changed and are now sex specific. Anion gap [Moles/Vol] 6 mmol/L [place], [place] AST [Catalytic activity/Vol] 39 U/L 15 - 46 U/L [place] Comment on above: Slightly hemolysed, interpret with caution. Bilirubin Ql (U) 0.5 mg/dL 0.2 - 1.3 mg/dL [place] Calcium [Mass/Vol] 8.5 mg/dL 8.4 - 10. 4 mg/dL [place] Chloride [Moles/Vol] 107 mmol/L 98 - 10 7 mmol/L [place] CO2 [Moles/Vol] 20 mmol/L Low 22 - 30 mmol/L [place] Creatinine [Mass/Vol] 0.63 mg/dL 0.52 - 1.25 mg/dL [place] EGFR IF NonAfrican [place] >90.0 >60 mL/min [place] Comment on above: KDIGO guidelines pro [...] MDRD (S/P/Bld) [Vol rate/Area] mL/min/{1.73_m2} >60 mL/min [place] Glucose [Mass/Vol] 97 mg/dL 70 - 100 mg/dL [place] Interpretation and review of laboratory results Abnormal [place] Potassium [Moles/Vol] 4.3 mmol/L 3.5 - 5.1 mmol/L [place] Comment on above: Slightly hemolysed, interpret with caution. Protein [Mass/Vol] 6.9 g/dL 6.3 - 8.2 g/dL [place] Sodium [Moles/Vol] 134 mmol/L Low 135 - 145 mmol/L [place] Urea nitrogen [Mass/Vol] 14 mg/dL 7 - 20 mg/dL [place] Creatinine, Ur Randomon 03-29 Creatinine, Ur Random 66.8 mg/dL Normal No Range [facility] Comment on above: Performed By: #### C RTUR, TPUR, MAT #### [address] Fibrinogenon 04-25-2020 Fibrinogen 390 mg/dL Normal 200-400 [place] Comment on above: Performed By: #### P T/AP, CMP3, HEMOG, FIBGN #### [address] [address] [place], [place] Hemogramon 04-25-2020 Erythrocyte distribution width (RBC) [Ratio] 18.2 % High 11.5-14.5 [facility] Comment on above: Performed By: #### P T/AP, CMP3, HEMOG, FIBGN #### [address] Hematocrit (Bld) [Volume fraction] 30.6 % Low 35.0-47.0 [facility] Comment on above: Performed By: #### P T/AP, CMP3, HEMOG, FIBGN #### [address] [address] [place] [address] Hemoglobin (Bld) [Mass/Vol] 9.7 g/dL Low 11.7-16.0 [facility] Comment on above: Performed By: #### P T/AP, CMP3, HEMOG, FIBGN #### [address] [address] [address] [place], [place] MCH (RBC) [Entitic mass] 26.2 pg Normal 26.0-34.0 [facility] Comment on above: Performed By: #### P T/AP, CMP3, HEMOG, FIBGN #### [address] [address] [address] [place], [place] MCHC 31.9 % Low 32.0-36.0 [facility] Comment on above: Performed By: #### P T/AP, CMP3, HEMOG, FIBGN #### [address] [address] [address] [place], [place] MCV (RBC) [Entitic vol] 82.2 fL Normal 79.0-98.0 [facility] Comment on above: Performed By: #### P T/AP, CMP3, HEMOG, FIBGN #### [address] [address] [address] [place], [place] Platelet mean volume (Bld) [Entitic vol] 8.1 fL Normal 7.4-10.4 [facility] Comment on above: Performed By: #### P T/AP, CMP3, HEMOG, FIBGN #### [address] [address] [address] [place], [place] Platelets (Bld) [#/Vol] 249 10*3/uL Normal 140-440 [facility] Comment on above: Performed By: #### P T/AP, CMP3, HEMOG, FIBGN #### [address] [address] [address] [place], [place] RBC (Bld) [#/Vol] 3.72 10*6/uL Low 3.80-5.20 [facility] Comment on above: Performed By: #### P T/AP, CMP3, HEMOG, FIBGN #### [address] [address] [place] [address] WBC (Bld) [#/Vol] 13.3 10*3/uL High 3.6-10.7 [facility] Comment on above: Performed By: #### P T/AP, CMP3, HEMOG, FIBGN #### [facility] [address], [place] Medication Assisted Treatmen t Panelon 04-25-2020 Fentanyl Negative Normal [facility] Comment on above: Performed By: #### C RTUR, TPUR, MAT #### [facility] [address], [place] Amphetamines Ql (U) Negative Normal [facility] Comment on above: Performed By: #### C RTUR, TPUR, MAT #### [address] [address] [address] [place], [place] Barbiturates Negative Normal [facility] Comment on above: Performed By: #### C RTUR, TPUR, MAT #### [address] [address] [address] [place], [place] Benzodiazepines Ql (U) Negative Normal [facility] Comment on above: Performed By: #### C RTUR, TPUR, MAT #### [address] [address] [address] [place], [place] Buprenorphine Screen Negative [facility] Comment on above: Performed By: #### C RTUR, TPUR, MAT #### [address] [address] [address] [place], [place] Cocaine Ql (U) Negative Normal [facility] Comment on above: Performed By: #### C RTUR, TPUR, MAT #### [address] [address] [address] [place], [place] Ethanol [Mass/Vol] Negative Normal [facility] Comment on above: Performed By: #### C RTUR, TPUR, MAT #### [address] [address] [address] [place], [place] Methadone Ql (U) Negative Normal [facility] Comment on above: Performed By: #### C RTUR, TPUR, MAT #### [address] [address] [place] [address] Opiates Ql (U) Negative Normal [facility] Comment on above: Performed By: #### C RTUR, TPUR, MAT #### [address] [address] [address] [place], [place] Oxycodone/Oxymorphone Negative Normal [facility] Comment on above: Performed By: #### C RTUR, TPUR, MAT #### [address] [address] [address] [place], [place] PCP Negative Normal [facility] Comment on above: Performed By: #### C RTUR, TPUR, MAT #### [address] [address] [address] [place], [place] THC Negative Normal [facility] Comment on above: Performed By: #### C RTUR, TPUR, MAT #### [address] [address] [address] [place], [place] Amphetamines Ql (U) Negative [facility], [place] Benzodiazepines Ql (U) Negative [facility], [place] Cocaine Ql (U) Negative [facility], [place] Ethanol [Mass/Vol] Negative [facility], [place] Methadone Ql (U) Negative [facility] [place], [place] Opiates Ql (U) Negative [facility], [place] Sodium [Moles/Vol] See Below [facility], [place] Comment on above: The expected value f [...] performed using non-forensic procedures. Test Performed by [place] [address] [address] MAT Panel Test Comment See Below Normal [facility] Comment on above: Result Comment: [...] By: #### C RTUR, TPUR, MAT #### [place] [address] Metabolic Panelon 04-25-2020 Sodium [Moles/Vol] Negative [place] Otheron 04-25-2020 Test Performed by [address] Test Performed by [address] PROTEIN, URINE, RANDOMon Interpretation and review of laboratory results Abnormal [place] Protein (U) [Mass/Vol] 88 mg/dL High No Range [place], [place] PROTIME/INR & PTTon 04-25-20 20 INR Coag (PPP) [Relative time] 0.9 {INR} [place] Comment on above: Recommended Anticoag ulant [...] Ur Random 88 mg/dL High No Range [facility] Comment on above: Performed By: #### C RTUR, TPUR, MAT #### [facility] [address], [place] Protime AND APTTon 0 aPTT Coag (Bld) [Time] 21.4 s Normal 20.0-30.5 [facility], [place] Comment on above: NOTE: The therapeuti c time for Heparin anticoagulation, based on Xa activity inhibition, is an APTT of 46-80 seconds. Result Comment: NOTE : The therapeutic time for Heparin anticoagulation, based on Xa activity inhibition, is an APTT of 46-80 seconds. Performed By: #### P T/AP, CMP3, HEMOG, FIBGN #### [facility] [address], [place] INR 0.9 Normal 0.9-1.1 [facility] Comment on above: Result Comment: Trell [...] #### P T/AP, CMP3, HEMOG, FIBGN #### [facility] [address], [place] PT Coag (PPP) [Time] 9.6 s Normal 9.0-12.0 [place] Comment on above: . Result Comment: . Performed By: #### P T/AP, CMP3, HEMOG, FIBGN #### [facility] [address], [place] TS GELon 04-25-2020 TS GEL ABO Group: O Rh, Gel: POS Antibody Screen Gel: NEG Normal [facility] Comment on above: Performed By: #### T SGL ####[employer] [facility] TYPE AND SCREENon 04-25-2020 Sodium [Moles/Vol] Negative [facility], [place] Sodium [Moles/Vol] O [facility] [place], [place] Sodium [Moles/Vol] Positive [facility], [place] Test Performed by [employer] [facility], [address] [place] [id number] [facility], [place] ABO, External Resulton 04-10 ABO, External Result O [facility], [place] C. Trachomatis, External Res ulton 04-10-2020 C. Trachomatis, External Result Negative [facility], [place] HIV, External Resulton 04-10 HIV, External Result Negative [facility] [place], [place] Hepatitis B, External Result on 04-10-2020 Hep B, External Result Negative [facility], [place] N. Gonorrhoeae, External Res ulton 04-10-2020 N. Gonorrhoeae, External Result Negative [facility], [place] Otheron 04-10-2020 Verified with Fer Alejo rn [facility], [place] RPR, External Labon 04-10-20 20 RPR, External Result Negative [facility], [place] Rh Factor, External Resulton 04-10-2020 Rh Factor, External Result Positive [facility], [place] Rubella Titer, External Resu lton 04-10-2020 Rubella Titer, External Result IMMUNE [facility], [place] Progress Noteon 03-08-2020 [employer] Editor Authentication Interface Message Text Pediatric Cardiology Echocardiogram [...] in visit on 03/08/20 Echo New Narrative [facility] [place] [address] [email or web address] ---- Echocardiogram Report M-mode, complete 2D, complete spectral Doppler, and color Doppler PATIENT: Anand Herrera STUDY DATE/TIME: Mar 08 2020 12:04PM HEIGHT: : 2000 WEIGHT: AGE: 19yr BSA/BMI: / GENDER: F BP: 137 / 64 LOCATION: [facility] REFERRING PHYSICIAN: Zac Martinez Md ORDERING PROVIDER: [...] STUDY AND PROCEDURE DATA: Procedure Description: New ([id number]) . Study status: Routine. Location: lab. Procedure: [...] a patent foramen ovale. There is a [id number] shunt. Left atrium - The atrium is [...] all we discussed. Hannah Guevara MD [facility] Marine Equipment Engineer [facility] Clinical [place] Operator of Pediatrics [facility] Counseling and coordination of care for this patient was greater than 35minutes which is more than 50% of the total time of 60 minutes spent on the encounter. Normal [facility] Acquisitions Editor Authentication Interface Message Text Pediatric Hand Surgery [...] to requesting provider. 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 Consent to share information with [facility] team, OB and slab puller signed. Pt plans to deliver at [facility] with Dr Martinez. Power Tool Repairer is not yet decided. female fetus- name is Thoreau Method of feeding: breast and bottle Ultrasound findings today: See report in procedures for details. Reinforced continued OB care with Dr Martinez- next appointment- next week Normal [facility] Acquisitions Editor Authentication Interface Message Text [facility] genetic counseling note Consultation has been [...] Herrera also met with Jerilyn Agee, Clinical Tie Bucker from our [facility]. Jerilyn will continue to help coordinate and care. consultation with Pediatric Orthopedic Surgery in the Hand and Upper Extremity Clinic is being arranged. follow up with Pediatric Orthopedic Surgery should be within one month of age or otherwise as per their recommendations. Call [phone] to schedule. Consultation with Medical Genetics should be considered in the period, especially if additional concerns are noted after delivery. The slab puller or patient can request this consultation. Call [phone] to schedule. Indicate that you were followed by the [facility] when scheduling. Diagnosis: DIAGNOSIS. 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 Plan: 1. Continued obstetrical care with her primary drug safety associate is recommended. 2. Follow up q4 weeks to evaluate biometric parameters and anatomy. These are planned with the [facility]/your office. 3. surveillance as follows: weekly BPP beginning at 32 weeks. 4. consultation with Pediatric Orthopedic Surgery in the Hand and Upper Extremity Clinic is being arranged. 5. Delivery is appropriate at your local institution/already planned in [place] with follow up as indicated. 6. Mode and timing of delivery are based on the usual obstetrical indications. 7. Anticipate normal nursery. OR Neonatology/Pediatric di to be present at delivery to evaluate infant and determine nursery placement. 8. follow up with Pediatric Orthopedic Surgery should be within one month of age or otherwise as per their recommendations. Call [phone] to schedule. 9. Consultation with Medical Genetics should be considered in the period, especially if additional concerns are noted after delivery. The slab puller or patient can request this consultation. Call [phone] to schedule. Indicate that you were followed by the [facility] when scheduling. 9. Other follow up as clinically indicated. Her complete [facility] Plan of Care summary will be distributed. The total patient time of the visit was 30 minutes, of which greater than 50% of the time was spent counseling and coordinating care. Junior Kat MD Normal [facility] Progress Noteon 02-15-2020 Acquisitions Editor Authentication Interface Message Text Dating for consult Normal [facility] Vital Signs Date Time Vital Sign Value Performing Clinician Facility 12-22-2024 13:57-0400 Body mass index (BMI) [Ratio] 30.57 kg/m2 Simona ROSS Work Phone: [facility] 12-22-2024 13:57-0400 Body weight 85.91 kg Simona ROSS Work Phone: [facility] 12-22-2024 13:57-0400 Diastolic blood pressure 68 mm[Hg] Simona ROSS Work Phone: [facility] 12-22-2024 13:57-0400 Systolic blood pressure 112 mm[Hg] Simona ROSS Work Phone: [facility] 12-08-2024 11:30-0400 Body mass index (BMI) [Ratio] 29.58 kg/m2 Marco A Jc DO Work Phone: [facility] 12-08-2024 11:30-0400 Body weight 83.12 kg Marco A Jc DO Work Phone: [facility] 12-08-2024 11:30-0400 Diastolic blood pressure 66 mm[Hg] Marco A Jc DO Work Phone: [facility] 12-08-2024 11:30-0400 Systolic blood pressure 122 mm[Hg] Marco A Jc DO Work Phone: [facility] 11-22-2024 11:51-0400 Body mass index (BMI) [Ratio] 29.34 kg/m2 Marco A Jc DO Work Phone: [facility] 11-22-2024 11:51-0400 Body weight 82.46 kg Marco A Jc DO Work Phone: [facility] 11-22-2024 11:51-0400 Diastolic blood pressure 66 mm[Hg] Marco A Jc DO Work Phone: [facility] 11-22-2024 11:51-0400 Systolic blood pressure 112 mm[Hg] Marco A Jc DO Work Phone: [facility] 10-25-2024 14:39-0400 Body mass index (BMI) [Ratio] 28.25 kg/m2 Simona Currie PA Work Phone: [facility] 10-25-2024 14:39-0400 Body weight 79.38 kg Simona Currie PA Work Phone: [facility] 10-25-2024 14:39-0400 Diastolic blood pressure 62 mm[Hg] Simona Currie PA Work Phone: [facility] 10-25-2024 14:39-0400 Systolic blood pressure 110 mm[Hg] Simona Currie PA Work Phone: [facility] 09-27-2024 14:51-0400 Body mass index (BMI) [Ratio] 27.12 kg/m2 Marco A Jc DO Work Phone: [facility] 09-27-2024 14:51-0400 Body weight 76.2 kg Marco A Jc DO Work Phone: [facility] 09-27-2024 14:51-0400 Diastolic blood pressure 70 mm[Hg] Marco A Jc DO Work Phone: [facility] 09-27-2024 14:51-0400 Systolic blood pressure 110 mm[Hg] Marco A Jc DO Work Phone: [facility] 08-29-2024 11:50-0400 Body mass index (BMI) [Ratio] 25.95 kg/m2 Marco A Jc DO Work Phone: [facility] 08-29-2024 11:50-0400 Body weight 72.94 kg Marco A Jc DO Work Phone: [facility] 08-29-2024 11:50-0400 Diastolic blood pressure 68 mm[Hg] Marco A Jc DO Work Phone: [facility] 08-29-2024 11:50-0400 Systolic blood pressure 114 mm[Hg] Marco A Jc DO Work Phone: [facility] 08-01-2024 13:20-0400 Body mass index (BMI) [Ratio] 26.95 kg/m2 Marco A Jc DO Work Phone: [facility] 08-01-2024 13:20-0400 Body weight 75.75 kg Marco A Jc DO Work Phone: [facility] 08-01-2024 13:20-0400 Diastolic blood pressure 70 mm[Hg] Marco A Jc DO Work Phone: [facility] 08-01-2024 13:20-0400 Systolic blood pressure 120 mm[Hg] Marco A Jc DO Work Phone: [facility] 05-19-2024 11:32-0500 Body mass index (BMI) [Ratio] 23.4 kg/m2 Marco A Jc DO Work Phone: [facility] 05-19-2024 11:32-0500 Body weight 65.77 kg Marco A Jc DO Work Phone: [facility] 05-19-2024 11:32-0500 Diastolic blood pressure 74 mm[Hg] Marco A Jc DO Work Phone: [facility] 05-19-2024 11:32-0500 Systolic blood pressure 110 mm[Hg] Marco A Jc DO Work Phone: [facility] 04-19-2024 01:09-0500 Body temperature 98.06 [degF] [facility] 04-19-2024 01:09-0500 Diastolic blood pressure 84 mm[Hg] [facility] 04-19-2024 01:09-0500 Heart rate 90 /min [facility] 04-19-2024 01:09-0500 Respiratory rate 16 /min [facility] 04-19-2024 01:09-0500 SaO2% (BldA) [Mass fraction] 100 % [facility] 04-19-2024 01:09-0500 Systolic blood pressure 126 mm[Hg] [facility] 03-08-2024 15:12-0500 Body mass index (BMI) [Ratio] 22.29 kg/m2 Marco A Jc DO Work Phone: [facility] 03-08-2024 15:12-0500 Body weight 62.65 kg Marco A Jc DO Work Phone: [facility] 03-08-2024 15:12-0500 Diastolic blood pressure 70 mm[Hg] Marco A Jc DO Work Phone: [facility] 03-08-2024 15:12-0500 Systolic blood pressure 120 mm[Hg] Marco A Jc DO Work Phone: [facility] 10-14-2022 12:27-0400 Body temperature 98.24 [degF] Nakul Cannon [facility] 10-14-2022 12:27-0400 Diastolic blood pressure 64 mm[Hg] Nakul Cannon [facility] 10-14-2022 12:27-0400 Heart rate 107 /min Nakul Cannon [facility] 10-14-2022 12:27-0400 Respiratory rate 18 /min Nakul Cannon [facility] 10-14-2022 12:27-0400 SaO2% (BldA) [Mass fraction] 100 % Nakul Cannon [facility] 10-14-2022 12:27-0400 Systolic blood pressure 113 mm[Hg] Nakul Cannon [facility] 12-19-2021 03:42-0400 Diastolic blood pressure 64 mm[Hg] Anthony Michelle [facility] 12-19-2021 03:42-0400 Heart rate 78 /min Anthony Michelle [facility] 12-19-2021 03:42-0400 Hourly Rounding Anthony Michelle [facility] 12-19-2021 03:42-0400 Nursing Progress Note Reason Other: Pt mediciated per orders. Family x1 cartside. Denies any needs at this time. Anthony Michelle [facility] 12-19-2021 03:42-0400 Respiratory rate 16 /min Anthony Michelle [facility] 12-19-2021 03:42-0400 SaO2% (BldA) [Mass fraction] 100 % Anthony Michelle [facility] 12-19-2021 03:42-0400 Systolic blood pressure 116 mm[Hg] Anthony Michelle [facility] 12-19-2021 02:40-0400 Diastolic blood pressure 70 mm[Hg] Anthony Michelle [facility] 12-19-2021 02:40-0400 Heart rate 82 /min Anthony Michelle [facility] 12-19-2021 02:40-0400 Hourly Rounding Anthony Michelle [facility] 12-19-2021 02:40-0400 Nursing Progress Note Reason Other: Pt ambulatory to bathroom and back to cart with a steady gait. Anthony Michelle [facility] 12-19-2021 02:40-0400 Respiratory rate 16 /min Anthony Michelle [facility] 12-19-2021 02:40-0400 SaO2% (BldA) [Mass fraction] 100 % Anthony Michelle [facility] 12-19-2021 02:40-0400 Systolic blood pressure 122 mm[Hg] Anthony Michelle [facility] 12-19-2021 01:53-0400 Body temperature 98.06 [degF] Anthony Martinez [facility] 12-19-2021 01:53-0400 Diastolic blood pressure 84 mm[Hg] Anthony Michelle [facility] 12-19-2021 01:53-0400 Heart rate 89 /min Anthony Briscoener [facility] 12-19-2021 01:53-0400 Respiratory rate 16 /min Anthony Michelle [facility] 12-19-2021 01:53-0400 SaO2% (BldA) [Mass fraction] 100 % Anthony Martinez [facility] 12-19-2021 01:53-0400 Systolic blood pressure 149 mm[Hg] Anthony Martinez [facility] 11-01-2021 08:09-0400 Body temperature 98.42 [degF] Keanu Kamara [facility] 11-01-2021 08:09-0400 Diastolic blood pressure 90 mm[Hg] Keanu Kamara [facility] 11-01-2021 08:09-0400 Heart rate 94 /min Keanu Asad [facility] 11-01-2021 08:09-0400 Respiratory rate 18 /min Keanu Asad [facility] 11-01-2021 08:09-0400 SaO2% (BldA) [Mass fraction] 98 % Keanu Asad [facility] 11-01-2021 08:09-0400 Systolic blood pressure 145 mm[Hg] Keanu Asad [facility] 09-18-2021 09:59-0400 Body temperature 98.06 [degF] [facility] 09-18-2021 09:59-0400 Diastolic blood pressure 87 mm[Hg] [facility] 09-18-2021 09:59-0400 Heart rate 90 /min [facility] 09-18-2021 09:59-0400 Respiratory rate 16 /min [facility] 09-18-2021 09:59-0400 SaO2% (BldA) [Mass fraction] 100 % [facility] 09-18-2021 09:59-0400 Systolic blood pressure 136 mm[Hg] [facility] 04-28-2020 07:51-0500 Body Temperature 97.81 [degF] [place], [place] 04-28-2020 07:51-0500 BP Diastolic 68 mm[Hg] [place], [place] 04-28-2020 07:51-0500 BP Systolic 121 mm[Hg] [place] 04-28-2020 07:51-0500 Pulse (Heart Rate) 97 /min [place], [place] 04-28-2020 07:51-0500 Pulse Oximetry 97 % [place] 04-28-2020 07:51-0500 Respiratory Rate 18 /min [place] 04-25-2020 13:40-0500 BMI (Body Mass Index) 23.3 kg/m2 [place], [place] 04-25-2020 13:40-0500 Body weight 63.5 kg [place] 04-25-2020 13:40-0500 Height 165.1 cm [place] Encounters Encounter Date Encounter Type Care Provider Facility Start: 12-22-2024 End: 12-22-2024 Bobboo flowssaritha ROSS Work Phone: [facility] Start: 12-22-2024 End: 12-22-2024 Bamboo flowsheet Simona ROSS Work Phone: [facility] Start: 12-22-2024 End: 12-22-2024 Office outpatient visit 15 minutes Simona ROSS Work Phone: [facility] Comment on above: Third trimester preg tuan ([facility]); 33 weeks gestation of ([facility]); Amniotic band syndrome; History of miscarriage Start: 12-22-2024 End: 12-22-2024 ambulatory SIMONA CURRIE Not Available Start: 12-12-2024 End: 12-12-2024 ambulatory MARCO A JC Not Available Start: 12-08-2024 End: 12-08-2024 Office outpatient visit 15 minutes Marco A Jc DO Work Phone: [facility] Comment on above: Third trimester preg tuan ([facility]); 31 weeks gestation of ([facility]); Screening, , for anatomic survey ([facility]) Start: 12-08-2024 End: 12-08-2024 ambulatory MARCO A JC Not Available Start: 11-22-2024 End: 11-22-2024 Bamboo flowsheet Marco A Jc DO Work Phone: [facility] Start: 11-22-2024 End: 11-22-2024 Bamboo flowsheet Marco A Jc DO Work Phone: [facility] Start: 11-22-2024 End: 11-22-2024 Office outpatient visit 15 minutes Marco A Jc DO Work Phone: [facility] Comment on above: Size of fetus incons istent with dates in second trimester ([facility]) (Primary Dx); Second trimester ([facility]); 28 weeks gestation of ([facility]); Mastitis Start: 11-22-2024 End: 11-22-2024 ambulatory MARCO A JC Not Available Start: 10-31-2024 End: 10-31-2024 Clinisync Result Encounter Simona ROSS Work Phone: [facility] External Department Unsolicited Start: 10-31-2024 End: 10-31-2024 Clinisync Result Encounter Simona ROSS Work Phone: [facility] External Department Unsolicited Start: 10-25-2024 End: 10-25-2024 Office outpatient visit 15 minutes Simona ROSS Work Phone: [facility] Comment on above: Second trimester pre gnancy ([facility]); 24 weeks gestation of ([facility]); HSV infection; H/O pre-eclampsia in prior , currently ([facility]); Diabetes mellitus screening; Encounter for anatomic survey ([facility]) Start: 10-25-2024 End: 10-25-2024 ambulatory SIMONA CURRIE [...] flowsheet Marco A Jc DO Work Phone: [facility] Start: 08-29-2024 End: 08-29-2024 Bamboo flowsheet Marco A Jc DO Work Phone: [facility] Start: 08-29-2024 End: 08-29-2024 Office outpatient visit 15 minutes Marco A Jc DO Work Phone: [facility] Comment on above: History of miscarria ge (Primary Dx); Second trimester ; 16 weeks gestation of ; STD exposure; Vaginal discharge Start: 08-29-2024 End: 08-29-2024 ambulatory MARCO A JC Not Available Start: 08-16-2024 End: 08-16-2024 Clinisync Result Encounter Marco A Jc DO Work Phone: [facility] External Department Unsolicited Start: 08-16-2024 End: 08-16-2024 Clinisync Result Encounter Marco A Jc DO Work Phone: [facility] External Department Unsolicited Start: 08-16-2024 End: 08-16-2024 Subsequent hospital visit by physician [id number] Obgynimg Ultrasound 1 [place] Comment on above: as inciden neetu finding ([facility]) Start: 08-01-2024 End: 08-01-2024 Bamboo flowsheet Marco A Jc DO Work Phone: [facility] Start: 08-01-2024 End: 08-01-2024 Bamboo flowsheet Marco A Jc DO Work Phone: [facility] Start: 08-01-2024 End: 08-01-2024 Office outpatient visit 15 minutes Marco A Jc DO Work Phone: [facility] Comment on above: 12 weeks [...] 04-19-2024 End: 04-19-2024 Emergency department patient visit [facility] Start: 03-08-2024 End: 03-08-2024 Patient encounter [...] 02-02-2023 End: 02-25-2023 Pre-admission assessment Zac Perezten [facility] Start: 11-10-2022 ambulatory MELENDREZPOLO AMARILLO Faci lity:[facility] Jacobo Mark Start: 10-14-2022 End: 10-14-2022 Emergency department patient visit Nakul Cannon [facility] Start: 09-26-2022 ambulatory PCP UNKNOWN Facility:[facility] Jacobo Mark Start: 09-04-2022 End: 09-05-[address] MARCO A GREENE . Facility: Start: 08-14-2022 End: 08-15-[address] MARCO A GREENE . Facility: Start: 12-19-2021 End: 12-19-2021 Emergency department patient visit Anthony Martinez [facility] Start: 11-14-2021 End: 11-14-2021 Patient encounter procedure Grover Amaral OD Work Phone: Ophthalmology Comment on above: EKC (epidemic kerato conjunctivitis) (Primary Dx) Start: 11-07-2021 End: 11-07-2021 Patient encounter procedure Grover Amaral OD Work Phone: Ophthalmology Comment on above: Viral conjunctivitis (Primary Dx) Start: 11-01-2021 End: 11-01-2021 Emergency department patient visit Keanu Kamara [facility] Start: 09-18-2021 End: 09-18-2021 Emergency department patient visit Amos Espinoza [facility] Start: 04-25-2020 End: 04-28-2020 Evaluation and management [...] f 2) Zoster Vaccines (1 of 2) [facility] Start: 04-28-2030 DTaP/Tdap/Td Vaccine s (8 - Td or Tdap) DTaP/Tdap/Td Vaccines (8 - Td or Tdap) [facility] Start: 03-14-2025 End: 03-14-2025 Patient encounter procedure [facility] Start: 01-04-2025 End: 01-04-2025 Patient encounter procedure 01/04/2025 2:00 PM EDT Routine [facility] [address] [place] [id number] Marco A Greene DO [address] [place] [address] [facility] Start: 12-26-2024 Influenza vaccination Influenz a Vaccine (Season Ended) [facility] Start: 12-22-2024 End: 12-22-2024 Patient encounter [...] weeks anatomy scan Imaging Routine Third trimester ([facility]) 31 weeks gestation of ([facility]) Screening, , for anatomic survey ([facility]) Expected: 12/08/2024, Expires: 03/10/2025 [facility] Work Phone: Comment on above: Expected: 12/08/2024 , Expires: 03/10/2025 Start: 12-08-2024 End: 12-08-2024 Professional / ancillary services management 12/08/2024 11:00 AM EDT Ancillary Procedure [facility]ER[facility] [address] [place] [id number] [facility] Start: 11-22-2024 End: 03-25-2025 US for US OB follow up transabdominal approach Imaging Routine Size of fetus inconsistent with dates in second trimester ([facility]) Expected: 11/22/2024, Expires: 03/25/2025 [facility] Work [...] mellitus screening Expected: 10/25/2024 (Approximate), Expires: 10/25/2025 [facility] Comment on above: Expected: 10/25/2024 (Approximate), Expires: 10/25/2025 Start: 10-25-2024 End: 01-25-2025 US for US OB limited 1+ fetuses Imaging Routine Encounter for anatomic survey ([facility]) Expected: 10/25/2024 (Approximate), Expires: 01/25/2025 [facility] Comment on above: Expected: 10/25/2024 (Approximate), [...] EST Office Visit [facility] [address] [place] [id number] Marco A Greene DO [address] [place] [address] Arrived [facility] Comment on above: Arrived Start: 12-27-2023 COVID-19 Vaccine ( season) COVID-19 Vaccine ( season) [facility] Start: 12-26-2021 Influenza vaccination INFLUENZA (#1) [facility] Start: 10-08-2020 PAP TESTING PAP TESTING [facility] Start: 10-08-2020 Screening for malign ant neoplasm of cervix [facility] Start: 10-08-2018 Urine microalbumin profile DTAP,TDAP,TD (1 - Tdap) [facility] Start: 10-08-2017 CHLAMYDIA SCREENING (18-24) CHLAMYDIA SCREENING (18-24) [facility] Start: 10-08-2017 GC (GONORRHEA) SCREENING (18-24) GC (GONORRHEA) SCREENING (18-24) [facility] Start: 10-08-2017 HEPATITIS C SCREENING HEPATITIS C [facility] Start: 10-08-2017 Hepatitis C screening Hepatitis C [facility] Start: 10-08-2017 HIV SCREENING HIV SCREENING [facility] Start: 10-08-2013 PEDS TO ADULT TRANSITION ANNUAL ASSESSMENT PEDS TO ADULT TRANSITION ANNUAL ASSESSMENT [facility] Start: 03-01-2012 Varicella vaccination Varicell a Vaccines (2 of 2 - 2-dose childhood series) [facility] Start: 2011 Adult depression screening assessment DEPRESSION SCREENING [facility] Start: 2011 PEDS TO ADULT TRANSITION INITIAL DISCUSSION PEDS TO ADULT TRANSITION INITIAL DISCUSSION [facility] Start: 10-08-2010 HPV VACCINE (1 - 2-d ose series) HPV VACCINE (1 - 2-dose series) [facility] Start: 04-09-2000 COVID-19 VACCINE (#1) COVID-19 VACCI NE (#1) [facility] Start: 1999 HIV screening HIV Screening [facility] Start: 1999 Lipid panel Lipid Panel [facility] Start: 1999 Yearly Adult Physical Yearly Adult P hysical [facility] CHLAMYDIA TRACHOMATI S (GENITO/STI) CHLAMYDIA TRACHOMATIS (GENITO/STI) Lab Routine Exposure to STD Ordered: 09/27/2024 [facility] Comment on above: Ordered: 09/27/2024 Cytology Cervical or vaginal smear or scraping study Pap Smear Pathology and Cytology Routine Well woman exam with routine gynecological exam Ordered: 03/08/2024 [facility] Work Phone: Comment on above: Ordered: 03/08/2024 Neisseria gonorrhoea e DNA [Presence] in Unspecified specimen by ARCHANA with probe detection Neisseria gonorrhea DNA probe, direct Lab Routine Exposure to STD Ordered: 09/27/2024 [facility] Comment on above: Ordered: 09/27/2024 Nonrebreather mask oxygen Nonrebreather mask oxygen Respiratory Care Routine As directed - RT (PRN) until discontinued starting 04/26/2020 [place], [place] Comment on above: As directed - RT (KS N) until discontinued starting 04/26/2020 Oxygen therapy [[facility] Data Set] Initiate Oxygen Therapy Protocol Respiratory Care Routine Daily until discontinued starting 04/26/2020 [place], [place] Comment on above: Daily until disconti nued starting 04/26/2020 Spirometry panel Incentive roger metry Respiratory Care Routine Every 2hr while awake until discontinued starting 04/26/2020 [place] Comment on above: Every 2hr while awak e until discontinued starting 04/26/2020 SURESWAB(R) ADVANCED VAGINITIS PLUS, TMA SURESWAB(R) ADVANCED VAGINITIS PLUS, TMA Pathology and Cytology Routine Exposure to STD Ordered: 09/27/2024 [facility] [facility] [employer] Work Phone: Comment on above: Ordered: 09/27/2024 [facility] Immunizations Immunization Date Immunization Notes Care Provider Fa josety 04-28-2020 tetanus toxoid, redu paula diphtheria toxoid, and acellular pertussis vaccine, adsorbed [facility] [place] 04-27-2020 influenza, injectabl e, quadrivalent, preservative free [facility] [place] 04-27-2020 influenza virus vacc ine, unspecified formulation [id number] 1 [facility] Work Phone: 04-26-2020 influenza quadrivale nt split vaccine (FLUZONE;FLUARIX;FLULAVAL ;AFLURIA) injection 0.5 mL [facility] [place] 04-26-2020 diphtheria, tetanus toxoids and acellular pertussis vaccine, unspecified formulation [facility] [place] , [place] 12-08-2011 varicella virus vaccine [id number] 1 [facility] Work Phone: Payers Date Payer Category Payer Medicaid [employer] [place] [place] [id number] 2020-Present [phone] [address] [address] [place] [address] Medicaid [id number] 2020 Medicaid (Managed Care) 1.2. [id number] 2020 Department of [employer] [employer] ( and others) [facility] [id number] 2020-Present [address] [place] [address] [id number]. [id number] 1999 Unknown [id number] 2.16.840.1.484165.3.579.2. 593 1999 Unknown [id number] 2.16.840.1.062413.3.579.2. 593 1999 Unknown [id number] 2.16.840.1.411416.3.579.2. 356 1999 Unknown [id number] 2.16.840.1.064166.3.579.2. 356 1999 Unknown [id number] 2.16.840.1.275529.3.579.2. 727 1999 Unknown [id number] 2.16.840.1.643654.3.579.2. 9 1999 Unknown [id number] 2.16.840.1.991713.3.579.2. 9 1999 Unknown [id number] 2.16.840.1.718137.3.579.2. 1258 1999 Unknown [id number] 2.16.840.1.445604.3.579.2. 9 1999 Unknown [id number] 2.16.840.1.114006.3.579.2. 1258 1999 Unknown [id number] 2.16.840.1.097356.3.579.2. 9 1999 Unknown [id number] 2.16.840.1.440182.3.579.2. 1258 1999 Unknown [id number] 2.16.840.1.836431.3.579.2. 9 1999 Unknown [id number] 2.16.840.1.531211.3.579.2. 1258 1999 Unknown [id number] 2.16.840.1.620253.3.579.2. 1258 1999 Unknown [id number] 2.16.840.1.545522.3.579.2. 1258 1999 Unknown [id number] 2.16.840.1.563535.3.579.2. 9 1999 Unknown [id number] 2.16.840.1.728378.3.579.2. 1259 1959 Unknown [id number] Social History Date Type Detail Facility Start: 04-28-2020 End: 10-26-2023 Tobacco smoking status NHIS Never smoker [facility] Start: 04-28-2020 End: 10-26-2023 Tobacco use and exposure Never used [employer] Start: 04-28-2020 End: 12-07-2024 Alcohol intake Ex-drinker (finding) [employer] [facility] [facility] Start: 1999 Sex Assigned At Not on file [facility] [employer] [facility] Start: 10-28-2021 End: 08-16-2024 Exposure to SARS-CoV-2 (event) [facility] Tobacco [facility] Comment on above: denies Start: 10-26-2023 End: 03-08-2024 Sex Assigned At Female [facility] Tobacco smoking status No Smoking Status Entered [facility] Start: 10-26-2023 End: 03-08-2024 History of Social function [facility] Start: 10-29-2022 Alcohol Comment caffeine: rarely [facility] Start: 1999 Sex assigned at Female [facility] Start: 10-19-2022 Gender identity Identifies as female gender (finding) [facility] Start: 05-18-2024 [facility] Tobacco smoking status NHIS Tobacco smoking consumption unknown [facility] Work Phone: Functional Status Date Assessment Result Facility 04-19-2024 Functional Status N/A [facility] 10-14-2022 Functional Status N/A [facility] 12-19-2021 Functional Status N/A [facility] 11-01-2021 Functional Status N/A [facility] Clinical Notes 04-28-2020 to 12-22-2024 [...] Problems Past Medical History: Diagnosis Date Pre-eclampsia ([facility]) HISTORY PAST MEDICAL HISTORY SOCIAL HISTORY Past Medical History: Diagnosis Date Pre-eclampsia ([facility]) Social History Tobacco Use Smoking [...] ASSESSMENT & PLAN ICD-10-CM 1. Third trimester ([facility]) Z34.93 2. 33 weeks gestation of ([facility]) Z3A.33 3. Amniotic band syndrome Q79.8 US [...] of: CODY Dumont documented in this encounter [facility] 12-08-2024 History of Presen t illness [...] Problems Past Medical History: Diagnosis Date Pre-eclampsia ([facility]) HISTORY PAST MEDICAL HISTORY SOCIAL HISTORY Past Medical History: Diagnosis Date Pre-eclampsia ([facility]) Social History Tobacco Use Smoking status: Never [...] nursing note reviewed. Exam conducted with a trousseau consultant present. Vitals: Estimated body mass index is 29.58 kg/m as calculated from the following: Height as of 10/26/23: 5' 6 . Weight as of this encounter: 183 lb 4 oz. BP: 122/66 Patient's last menstrual period was 05/04/2024. ASSESSMENT & PLAN ICD-10-CM 1. Third trimester ([facility]) Z34.93 2. 31 weeks gestation of ([facility]) Z3A.31 Patient presents today for a routine obstetrics appointment. Patient is currently 31w1d with a Estimated Date of Delivery: 02/08/25. Patient desires to have tubal ligation at time of on 02/01/25. Patient to return to clinic in 2-3 weeks for routine OB care. Documented by Rose Costello LPN on behalf of: Marco A Greene DO documented in this encounter [facility] 11-22-2024 History of Presen t illness [...] Problems Past Medical History: Diagnosis Date Pre-eclampsia ([facility]) HISTORY PAST MEDICAL HISTORY SOCIAL HISTORY Past Medical History: Diagnosis Date Pre-eclampsia ([facility]) Social History Tobacco Use Smoking [...] fetus inconsistent with dates in second trimester ([facility]) O26.842 US OB follow up transabdominal approach 2. Second trimester ([facility]) Z34.92 POCT urinalysis dipstick manually resulted 3. 28 weeks gestation of ([facility]) Z3A.28 POCT urinalysis dipstick manually resulted Return [...] A Greene DO documented in this encounter [facility] 10-25-2024 History of Presen t illness [...] Problems Past Medical History: Diagnosis Date Pre-eclampsia ([facility]) HISTORY PAST MEDICAL HISTORY SOCIAL HISTORY Past Medical History: Diagnosis Date Pre-eclampsia ([facility]) Social History Tobacco Use Smoking status: Never [...] ASSESSMENT & PLAN ICD-10-CM 1. Second trimester ([facility]) Z34.92 POCT urinalysis dipstick manually resulted 2. 24 weeks gestation of ([facility]) Z3A.24 3. HSV infection B00.9 4. H/O pre-eclampsia in prior , currently ([facility]) O09.299 5. Diabetes mellitus screening Z13.1 CBC Glucose tolerance, 1 hour CBC Glucose tolerance, 1 hour 6. Encounter for anatomic survey ([facility]) Z36.89 US OB limited 1+ [...] day. Patient is not being seen at [facility] no longer. Simona Currie gave patient a Rpt Anatomy US to have obtained in our office /[facility] due to the spine not seen [...] of: CODY Dumont documented in this encounter [facility] 09-27-2024 History of Presen t illness [...] nursing note reviewed. Exam conducted with a trousseau consultant present. Vitals: Estimated body mass index is [...] A Greene DO documented in this encounter [facility] 08-29-2024 History of Presen t illness [...] nursing note reviewed. Exam conducted with a trousseau consultant present. Vitals: Estimated body mass index is [...] A Greene DO documented in this encounter [facility] 08-01-2024 History of Presen t illness [...] nursing note reviewed. Exam conducted with a trousseau consultant present. Vitals: Estimated body mass index is [...] vyvanse 40mg daily. Will have referral to [facility]. She will begin progesterone at 16 weeks. Orders Placed This Encounter Procedures POCT urinalysis dipstick manually resulted Follow Up: Patient is to return to office in 4 week for routine OB appointment. Documented by Elvi Gerber NP on behalf of: Marco A Greene DO documented in this encounter [facility] 05-19-2024 History of Presen t illness [...] CODY Dumont on behalf of: Marco A Gerene DO documented in this encounter [facility] 04-19-2024 Evaluation + Plan note Extrac nino from: Title:ED Note Author:Olga Davison, Amos De Oliveira te:04/19/24 1. Ear pain, right (H92.01: Otalgia, right ear) 2. Upper respiratory infection (J06.9: Acute upper respiratory infection, unspecified) [facility] 12-24-2024 Hospital Discharge instructions Patient Education 04/19/2024 [...] medicines to help relieve symptoms, such as: Kiot-bkr-xxjkgld cold medicines. Cough suppressants. Coughing is a [...] and other clear broths. General instructions Take psqr-pfm-brwewua and prescription medicines only as told by [...] and water are not available, use hand security compliance engineer. Avoid touching your mouth, face, eyes, or [...] provider. Document Revised: 11/13/2021 Document Reviewed: 11/13/2021 [employer] Patient Education 2023 [employer]. 04/19/2024 01:34:08 Earache, Adult Earache, Adult An [...] instructions at home: Medicines Take or apply ufch-iim-sbrrqik and prescription medicines only as told by [...] provider. Document Revised: 08/25/2022 Document Reviewed: 08/25/2022 [employer]ve Patient Education 2023 [employer]. Follow Up Care 04/19/2024 01:06:30 With:Kathy Mccall Address: [address], [place] [address] [place] [phone]- Business (1) When:04/22/2024 Comments:Return to the emergency room if your pain recurs or any new symptoms. [facility] 12-24-2024 NoteED Patient Education Note ENT Earache, [...] at home: Medicines ??? Take or apply ztbe-okp-ljtperd and prescription medicines only as told by [...] Reviewed: 08/25/2022 Elsevier Patient Education ? 2023 [employer] Infectious Disease Upper Respiratory Infection, Adult [...] your health care provide (more content not included)...[facility]11-12-2024 History of Present illness Narrative* Hillary Coreas, PATTERNMAKER ALL AROUND - 03/08/2024 3:00 PM EST Reason for [...] nursing note reviewed. Exam conducted with a trousseau consultant present. Vitals: Estimated body mass index is [...] Marco A Greene DO [id number] Discharge instructions Patient Education 10/14/2022 13:55:20 Sutures, [place]alia, or Adhesive Wound Closure, Ljwu-ot-Ptdr Sutures, Redding, or Adhesive Wound Closure Doctors use stitches [...] ?Hold the edges of the wound together. ?[place] the glue onto your skin. You may [...] skin reaction that can lead to infection. Redding Redding are often used to close cuts from [...] Follow these instructions at home: Medicines Take bywf-tct-pnrxiyw and prescription medicines only as told by [...] cannot use soap and water, use hand security compliance engineer. Do not try to take off or [...] provider. Document Revised: 08/19/2021 Document Reviewed: 08/19/2021 [employer]ve Patient Education 2022 [employer]. Follow Up Care 10/14/2022 12:20:41 With:Baljit Link Address: [facility] [address] [facility] [place] [address]- Business (1) When:10/17/2022 13:48:24 [facility]08-25-2022 Evaluation + Plan noteExtracted from: Title:ED Note [...] w/ Auto Diff eGFR PT & PTT [facility]08-25-2022 Hospital Discharge instructions Patient Education 12/19/2021 04:06:21 Dysfunctional Uterine Bleeding Dysfunctional Uterine Bleeding Dysfunctional uterine bleeding is abnormal bleeding from the uterus. Dysfunctional uterine bleedingincludes: A menstrual period that comes earlier or later than usual. A menstrual period that is tension worker or heavier than usual, or has large [...] to keep your urine pale yellow. ?Take keny-sgj-mpbzian or prescription medicines. ?Eat foods that are high in fiber, such as beans, whole grains, and fresh fruits and vegetables. ?Limit foods that are high in fat and processed sugars, such as fried or sweet foods. Medicines Take uuig-jpo-tbfswhv and prescription medicines only as told by [...] 04/10/2001 Document Revised: 09/22/2018 Document Reviewed: 09/22/2018 allyve Patient Education 2020 [employer]. Follow Up Care 12/19/2021 01:46:43 With:Zac Martinez Address: [address] [place], [place] [address]IK[address] [address] Business (1) When:12/22/2021 [facility]07-21-2022 NoteHNO ID: [id number] Author: Grover Amaral, DIXON Service: ? Author Type: BILLET CHECKER Type: Progress Notes Filed: 11/14/2021 2:32 PM [...] Grover Amaral, OD November 14, 2021 2:29 [facility]07-21-2022 History of Present illness Narrative* Grover Amaral, [...] 2021 2:29 PM [facility] NoteHNO ID: [id number] Author: Grover Amaral OD Service: ? Author Type: BILLET CHECKER Type: Progress Notes Filed: 11/07/2021 4:03 PM Note Text: (B30.9) Viral conjunctivitis (primary encounter diagnosis) Comment: with membranes that bleed with removal Plan: Start PF every 2 hours Use Abdullahi/poly dex uldwin hs Cold compresses RTC 1 week The [...] Grover Amaral, DIXON November 07, 2021 4:03 [facility]07-14-2022 Miscellaneous Notes* Addendum Note - Grover Amaral OD - 11/07/2021 4:06 PM EDT Addended by: GROVER AMARAL on: 11/07/2021 04:06 PM Modules accepted: Orders [facility] History of Present illness Narrative* Grover Amaral [...] 2021 4:03 PM [facility] Evaluation + Plan note Extracted from: Title:ED Note Author:Keanu Kamara DO Date: Allergic reaction (T78.40XA: Allergy, unspecified, initial encounter) Orders: predniSONE, 60 mg = 3 tab(s), Oral, Daily, X 5 day(s), # 15 tab(s), Refills(s) 0, Pharmacy: [facility]/pharmacy #[id number], 165, cm, 11/01/21 8:11:00 EDT, Height/Length Dosing, 63, kg, 11/01/21 8:11:00 EDT, Weight Dosing [facility]07-08-2022 Hospital Discharge instructions Patient Education 11/01/2021 08:25:17 [...] care provider who specializes in treating allergies (heel scourer) or eye conditions (welfare aide) for tests to confirm the diagnosis. You [...] Eye drops. These may be prescription or uaok-rrr-fcluijd. There are several different types. You may [...] known allergens whenever possible. Take or apply cwwt-cor-vgdeutd and prescription medicines only as told by [...] 07/04/2003 Document Revised: 03/26/2018 Document Reviewed: 10/24/2016 allyve Patient Education 2020 [employer]. Follow Up Care 11/01/2021 08:05:40 With:Johanna Huynh Address: [address] [address]- Business (1) When:11/04/2021 08:24:58 Comments:Call today to arrange for follow-up appointment on Thursday or Thursday. Return to the ED with new or worsening symptoms as discussed. With:Baljit Watts Address: [address] [place] [address]- Business (1) When:11/04/2021 08:24:46 Comments:Call the office [...] you develop any new or worsening symptoms. [facility]05-25-2022 Hospital Discharge instructions Patient Education 09/18/2021 12:07:29 [...] may be recommended to support your foot. Xszk-lrk-cxkxlca anti-inflammatory medicines may also be recommended for [...] sitting or lying down. General instructions Take hfsi-cbr-xwmxugl and prescription medicines only as told by [...] 02/02/2007 Document Revised: 12/14/2018 Document Reviewed: 12/14/2018 allyve Patient Education 2020 [employer] Follow Up Care 09/18/2021 09:48:23 With:Baljit Link Address: [facility] [address], [facility] [address] [facility] [address] Business (1) When:09/21/2021 11:47:11 Comments:Return to the emergency room if your pain gets worse or any new symptom [facility]05-25-2022 Evaluation + Plan noteExtracted from: Title:ED Note Author:Olga Davison, Amos De Oliveira te:09/18/21 1. Contusion of left foot (S 90.32XA: Contusion of left foot, initial encounter) Orders: Post-op Shoe XR Foot 3+ Views Left [facility]01-02-2021 NoteDepartment of Obstetrics and Gynecology Delivery Discharge Summary Admission on 04/25/2020 1:08 PM Reason for admission: 04/25/2020 Intrapartum Course: N/A 30w6d PC-01 Indications for Delivery: Was patient delivered between 37w0d - 46b7rcrwbw? NO Surgical Operations & Procedures: Date of delivery: 04/26/2020 Delivery Type: without labor Anesthesia: Spinal anesthesia Laceration(s): n/a Delivery Complications: none EBL: 700 cc Pertinent Findings & Procedures: Information for the patient's : Ree Herrera [[id number]] female Weight: 2 lb 12.3 oz (1.256 kg) Apgars: Information for the patient's : Ree Herrera [[id number]] One Minute : 6 Five Minute : 7 Course: Magnesium sulfate and Procardia for PEWSF : Female infant Blood Type/Rh: O POS Antibody Screen: Antibody Screen Date Value Ref Range Status 04/25/2020 NEG NA Final Rubella: No results found for: RUBELLAIGG Contraception: will be discussed with her provider at [place] : no VTE Prophylaxis: Not Indicated Meds: Anand Herrera Home Medication Instructions RANDA:[id number] Printed on:04/28/20 1235 Medication Information ferrous sulfate (IRON 325) 325 [...] in [address] Wray in [place]. Condition on discharge: Stable Discharge to: Home [...] know - She will follow with her HOSPITALIST NOCTURNIST PHYSICIAN in [place] - I will call Dr. 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 [facility]* Diagnosis Well woman exam with routine gynecological exam Routine gynecological examination documented in this encounter [facility] HealthcareEvaluation note* Diagnosis control counseling documented in this encounter [facility] HealthcareEvaluation note* Diagnosis 12 weeks gestation of First trimester state, incidental Amniotic band syndrome Other problem associated with amniotic cavity and membranes, unspecified as to episode of care documented in this encounter [facility] HealthcareEvaluation note* Diagnosis as incidental finding ([facility]) documented in this encounter [facility] Work Phone: Evaluation note* Diagnosis History of miscarriage- Primary Personal history of other genital system and obstetric disorders Second trimester state, incidental 16 weeks gestation of STD exposure Vaginal discharge Leukorrhea, not specified as infective documented in this encounter [facility] HealthcareEvaluation note* Diagnosis Second trimester state, incidental 20 weeks gestation of Exposure to STD History of miscarriage Personal history of other genital system and obstetric disorders documented in this encounter [facility] HealthcareEvaluation note* Diagnosis Second trimester ([facility]) state, incidental 24 weeks gestation of ([facility]) HSV infection Herpes simplex without mention of complication H/O pre-eclampsia in prior , currently ([facility]) Diabetes mellitus screening Screening for diabetes mellitus Encounter for anatomic survey ([facility]) Encounter for anatomic survey documented in this encounter [facility] HealthcareEvaluation note* Diagnosis Size of fetus inconsistent with dates in second trimester ([facility])- Primary Second trimester ([facility]) state, incidental 28 weeks gestation of ([facility]) Mastitis Inflammatory disease of breast documented in this encounter [facility] HealthcareEvaluation note* Diagnosis Third trimester ([facility]) state, incidental 31 weeks gestation of ([facility]) Screening, , for anatomic survey ([facility]) Encounter for anatomic survey documented in this encounter [facility] HealthcareEvaluation note* Diagnosis Third trimester ([facility]) state, incidental 33 weeks gestation of ([facility]) Amniotic band syndrome Other problem associated with amniotic cavity and membranes, unspecified as to episode of care History of miscarriage Personal history of other genital system and obstetric disorders documented in this encounter [facility] HealthcareHospital course Narrative No data available for this section [facility] No data available for this section [facility] No data available for this section [facility] for visit Narrative* Imaging (Routine) - Pending Review Specialty Diagnoses / Procedures Referred By Joseph hoff Referred To Contact Radiology Diagnoses as incidental finding ([facility]) Procedures US OB limited 1+ fetuses US MAC OB imaging order Marco A Greene DO [address] [facility] [address], [place] [address] Phone: tel: fax: Referral ID Status Reason Start Date Expiration Date Visits Requested Visits Authorized [id number] Pending Review Perform Procedure 08/03/2024 08/03/2025 1 1 [facility] Work Phone: Summary Purpose Family History [...] Delivery: Was patient delivered between 37w0d - 27v9qpopyx? NO Surgical Operations & Procedures: Date of delivery: 04/26/2020 Delivery Type: without labor Anesthesia: Spinal anesthesia Laceration(s): n/a Delivery Complications: none EBL: 700 cc Pertinent Findings & Procedures: Information for the patient's : Ree Herrera [[id number]] female Weight: 2 lb 12.3 oz (1.256 kg) Apgars: Information for the patient's : Ree Herrera [[id number]] One Minute : 6 Five Minute : 7 Course: Magnesium sulfate and Procardia for PEWSF Infant: Female Blood Type/Rh: O POS Antibody Screen: Antibody Screen Date Value Ref Range Status 04/25/2020 NEG NA Final Rubella: No results found for: RUBELLAIGG Contraception: will be discussed with her provider at [place] : no VTE Prophylaxis: Not Indicated Meds: Anand Herrera Home Medication Instructions RANDA:[id number] Printed on:04/28/20 1238 Medication Information ferrous sulfate [...] in [address] Wray in [place]. Condition on discharge: Stable Discharge to: Home [...] know - She will follow with her HOSPITALIST NOCTURNIST PHYSICIAN in [place] - I will call Dr. Wray answering service at [phone] to update him with her condition, medications, [...] allowing us to care of you at [facility]. This time can be one [...] over the next few weeks. Bleeding may burr picker and then decrease again around 7-10 [...] avoid constipation you may take a mild zgym-msn-nphmryg stool softener (such as colace) as recommended [...] clean your hands with an alcohol-based hand security compliance engineer that contains at least 60% alcohol. Clean your hands often Wash your hands often with soap and water for at least 20 seconds, especially after blowing your nose, coughing, or sneezing; going to the bathroom; and before eating or preparing food. If soap and water are not readily available, use an alcohol-based hand security compliance engineer with at least 60% alcohol, covering all [...] healthcare provider to call the local or [facility] health department. Persons who are placed [...] isolation precautions should be made on a yebj-al-werf basis, in consultation with healthcare providers and [...] respiratory tract signs and symptoms. Ways to [place] with Anxiety & Stress It is normal [...] an illness that was first found in [facility], in March 2019. It has since [...] seen in people before. This virus spreads nnzejc-ao-srzowa through droplets from coughing and sneezing. It [...] water aren't available, use an alcohol-based hand security compliance engineer. Call 911 anytime you think you may [...] of: July 27, 2019 Content Version: 12.4 [employer]. Care instructions adapted under license by your healthcare professional. If you have questions about a medical condition or this instruction, always ask your healthcare professional. [employer], [facility] disclaims any warranty or liability for your use of this information. General Recommendations for Routine Cleaning and Disinfection of Households Community members can practice routine cleaning of frequently touched surfaces (for example: tables, doorknobs, light switches, handles, desks, toilets, faucets, sinks) with household military nurse and EPA-registered disinfectants that are appropriate for [...] appropriate. These supplies include tissues, paper towels, military nurse and EPA-registered disinfectants (see list link at [facility] website). ? If a separate bathroom [...] be used for other purposes. Consult the resist coater developer's instructions for cleaning and disinfection products used. [...] used if appropriate for the surface. Follow resist coater developer's instructions for application and proper ventilation. Check [...] o Products with EPA-approved emerging viral pathogens [facility] iconexternal icon are expected to be effective against COVID-19 based on data for harder to kill viruses. Follow the resist coater developer's instructions for all cleaning and disinfection products (e.g., concentration, application method and contact time, etc.). Soft (porous) surfaces such as carpeted floor, rugs, and drapes Remove visible contamination if present and clean with appropriate military nurse indicated for use on these surfaces. After cleaning: Launder items as appropriate in accordance with the resist coater developer's instructions. If possible, launder items using the [...] items as appropriate in accordance with the resist coater developer's instructions. If possible, launder items using the warmest appropriate water setting for the items and dry items completely. Dirtylaundry from an ill person can be washed with other people's items. o Clean and disinfect clothes hampers according to guidance above for surfaces. If possible, consider placing a utility bag assembler that is either disposable (can be thrown away) or can be laundered. [facility] has a list of EPA approved cleaning products on their website - https://www.cdc.gov/coronavirus/ 2019-ncov/community/home/cleaning-disinfection.html https://www.MiTio/Quxqj-Mcfcdnebqgm-Dvrcnkxp-Products-List.pdf [facility] with delivery and burr picker services: [employer]: Free burr picker at locations Delivery is $12.95 a month Website - Iguana[employer]ee in [place]: Tile Fitter $2.95 (1st order is free) Delivery is $14.95 Website [employer]: product support rep is free Delivery is $5.95 Stevia First [employer]: product support rep is $4.95 Delivery is $9.95 Website [employer]: product support rep is $4.95 Delivery is $9.95 Website [employer]: Can be ordered for delivery and burr picker with Learn [employer] Live Website - www.[employer] Aldi: Free deliver for first 3 orders of $35 or more Website aldiDctio Will deliver from eParachute, [employer], Pet[employer], and We[employer]. Annual membership is $99 Monthly membership is [...] PreEwSF - severe range Bps at [place], acutely treated with 5mg IV labetalol, 100mg [...] know - She will follow with her HOSPITALIST NOCTURNIST PHYSICIAN in [place] - I will call Dr. Wray answering service at [phone] to update him with her condition, medications, [...] MD - 04/25/2020 11:32 PM EST MFM lease administration analyst physician tracing review from earlier admission with [...] concern for concealed abruption. I did not veterans' counselor the patient directly of the R/B/A [...] day, as when she first arrived to [facility] more moderate than minimal. Patient rajeev [...] non scheduled section with consent signed at 9044. documented in this encounter Assessments Diagnosis Threatened labor, antepartum Threatened premature labor, antepartum Pre-eclampsia in third trimester Mild or unspecified pre-eclampsia, antepartum Acute on chronic blood loss anemia Additional Source Comments INFORMATION SOURCE (unrecogn ized section and content) DATE CREATED AUTHOR 04/18/2020 [facility] DATE CREATED AUTHOR AUTHOR'S ORGANIZ ATION 02/28/2021 [facility] DATE CREATED AUTHOR AUTHOR'S ORGANIZ ATION 11/16/2021 [facility] DATE CREATED AUTHOR AUTHOR'S ORGANIZ ATION 09/10/2022 [facility] DATE CREATED AUTHOR AUTHOR'S ORGANIZ ATION 11/13/2022 [facility] DATE CREATED AUTHOR AUTHOR'S ORGANIZ ATION 04/22/2024 [facility] DATE CREATED AUTHOR AUTHOR'S ORGANIZ ATION 12/24/2024 [facility] dical Specialists EPIC Reason for Visit [...] Care Team (unrecognized sect ion and content) Stone Lathe Operator Relationship Specialty Start Date End Date Baljit Watts MD [address] [place] [address] PCP - General Family Practice 11/07/21 Stone Lathe Operator Relationship Specialty Start Date End Date Baljit Watts MD [address] [place] [address] PCP - General Family Practice 11/07/21 Stone Lathe Operator Relationship Specialty Start Date End Date Link, MD Baljit [address] [place] [address] PCP - General Family Medicine 10/20/22 Stone Lathe Operator Relationship Specialty Start Date End Date Link, MD Baljit [address] [place] [address] PCP - General Family Medicine 10/20/22 Stone Lathe Operator Relationship Specialty Start Date End Date LinkBaljit MD [address] [place] [address] PCP - General Family Medicine 10/20/22 Stone Lathe Operator Relationship Specialty Start Date End Date LinkBaljit MD [address] [place] [address] PCP - General Family Medicine 10/20/22 Stone Lathe Operator Relationship Specialty Start Date End Date LinkBaljit MD PCP - General Family Medicine 10/20/22 Stone Lathe Operator Relationship Specialty Start Date End Date LinkBaljit MD PCP - General Family Medicine 10/20/22 Stone Lathe Operator Relationship Specialty Start Date End Date LinkBaljit MD PCP - General Family Medicine 10/20/22 Stone Lathe Operator Relationship Specialty Start Date End Date LinkBaljit MD PCP - General Family Medicine 10/20/22 Stone Lathe Operator Relationship Specialty Start Date End Date LinkBaljit MD PCP - General Family Medicine 10/20/22 Stone Lathe Operator Relationship Specialty Start Date End Date Link, MD Baljit PCP - General Family Medicine 10/20/22 Stone Lathe Operator Relationship Specialty Start Date End Date Link, MD Baljit PCP - General Family Medicine 10/20/22 Stone Lathe Operator Relationship Specialty Start Date End Date Link, MD Baljit PCP - General Family Medicine 10/20/22 Stone Lathe Operator Relationship Specialty Start Date End Date Link, MD Baljit PCP - General Family Medicine 10/20/22 Stone Lathe Operator Relationship Specialty Start Date End Date Link, MD Baljit PCP - General Family Medicine 10/20/22 Stone Lathe Operator Relationship Specialty Start Date End Date Link, MD Baljit PCP - General Family Medicine 10/20/22 Source Comments (unrecognize d section and content) In the event this informatio n is protected by the Federal Confidentiality of Alcohol and Drug Abuse Patient Records regulations: The Federal rules restrict any use of the information to criminally investigate or prosecute any alcohol or drug abuse patient.[facility] the event this information is protected by the Federal Confidentiality of Alcohol and Drug Abuse Patient Records regulations: The Federal rules restrict any use of the information to criminally investigate or prosecute any alcohol or drug abuse patient.[facility] FOR RECORDS PERTAINING TO PATIENTS WHO ARE [...] BE BASED ON THE PRIMARY CLINICAL RECORDS. [facility]. provides no warranty or guarantee of the accuracy or completeness of information in this document.
--- NOTE | 2024-12-29 17:07 | US_ITS ---
[place] [id number] Patient Name: ANAND PERALES MRN: [id number] date: 2000 Sex: F Assigned Patient Location: [facility] Current Patient Location: Accession/Order Number: [id number] Exam Date: 12/29/2024 17:15 Report Date: 12/29/2024 19:37 At the request of: SILAS VELIZ DO Procedure: US OB BPP w non-stress Ultrasound biophysical profile HISTORY: Amniotic band syndrome Adequate breathing movement, gross body movement, tone and amniotic fluid volume for total score of 8 out of 8. The amniotic fluid index is 15.1cm within normal limits. The heart rate 127 bpm. US/US OB BPP w non-stress IMPRESSION: Adequate ultrasound biophysical profile Impression dictated by: Charles Bo M.D. 12/29/2024 7:37 PM Dictation Location: [place] [address] Electronically authenticated by: [id number] Y Date: 12/29/2024 19:37
[2024-12-29 17:42] VITALS: BP 108/58; PULSE 86
== END 2024-12-29 18:06 | disposition home or self-care (01) ==
LOC: US 16:57 → FBC 17:01
PROVIDERS: Visit Provider Obstetrics & Gynecology
DX: Q79.8 Other congenital malformations of musculoskeletal system (principal)
CPT/HCPCS: 76818

== ENCOUNTER 2025-01-02 15:47 | Outpatient (OUT) | payer OTHER, SELFPAY ==
--- OUTSIDE RECORDS SUMMARY | 2024-12-22 14:00 | XMS_ITS | Encounter Summary ---
Author Organization [facility] Address [address] [place] [address] Care Team Providers Care Sales Estimator Name Role Phone Link, Baljit PRETTY Primary Care Provider [phone] Reason for Visit * Reason Comments Routine Visit Encounter Details Date Type Department Care Team (Late st Contact Info) Description 12/22/2024 2:00 PM EDT Routine LON BARRERA [address] [place] [address] Simona Currie PA [address] [place], [facility] Third trimester ([facility]); 33 weeks gestation of ([facility]); Amniotic band syndrome; History of miscarriage Social History Tobacco Use Types Packs/Day Years [...] Sign Reading Time Taken Comments Blood Pressure 112/68 12/22/2024 1:57 PM EDT Pulse - - Temperature - - Respiratory Rate - - Oxygen Saturation - - Inhaled Oxygen Concentration - - Weight 85.9 kg (189 lb 6.4 oz) 12/22/2024 1:57 P M EDT Height - - Body Mass Index 30.57 10/26/2023 1:10 PM EDT documented in this encounter Progress Notes * CODY Dumont - 12/22/2024 2:00 PM EDT Reason for Appointment: Patient ID: Johana Herrera is a 24 y.o. female who presents for Routine Visit Patient presents today for Return OB appointment. MEDICATIONS Current Outpatient Medications Medication Instructions Ferrous Sulfate (IRON PO) 1 tablet, Oral, Daily RT MV-Min-Fe Fum-FA-DHA ( 1 PO) 1 each, Daily Progesterone 200 mg, Vaginal, Nightly, Insert suppository vaginally every night at bedtime until 12weeks gestation Vyvanse 40 mg, Daily ALLERGIES No Known Allergies PROBLEMS Active Ambulatory Problems Diagnosis Date Noted No Active Ambulatory Problems Resolved Ambulatory Problems Diagnosis Date Noted No Resolved Ambulatory Problems Past Medical History: Diagnosis Date Pre-eclampsia ([facility]) HISTORY PAST MEDICAL HISTORY SOCIAL HISTORY Past Medical History: Diagnosis Date Pre-eclampsia ([facility]) Social History Tobacco Use Smoking status: Never [...] reviewed. Vitals: Estimated body mass index is 30.57 kg/m?? as calculated from the following: Height as of 10/26/23: 5' 6 . Weight as of this encounter: 189 lb 6.4 oz. BP: 112/68 Patient's last menstrual period was 05/04/2024. ASSESSMENT & PLAN ICD-10-CM 1. Third trimester ([facility]) Z34.93 2. 33 weeks gestation of ([facility]) Z3A.33 3. Amniotic band syndrome Q79.8 US biophysical profile w non stress test 4. History of miscarriage Z87.59 Progesterone 200 MG suppository Return OB: Patient presents today for a routine obstetrics appointment. Patient is currently 33w1d . Patient states she is doing well but has complaints of being tired due to current . Patient has verbalizes frequent movement. labor precautions was discussed/given and patient was instructed to perform kick counts three times a day. Orders Placed This Encounter Procedures US biophysical profile w non stress test Follow Up: Patient is to return to office in 2 week for routine OB appointment. Documented by CODY Dumont on behalf of: CODY Dumont documented in this encounter Plan of Treatment Upcoming Encounters Date Type Department Care Team (Late st Contact Info) Description 01/04/2025 1:50 PM EDT Routine NOMEmelia BARRERA [address] [place] [phone] Simona Currie PA [address] [place] [address] 03/14/2025 11:00 AM EST Office Visit LON BARRERA [address] [place] [place] [address] Marco A Greene DO [address] [place] [address] Scheduled Orders Name Type Priority Associated Diagnoses Orde r Schedule US biophysical profile w non stress test Imaging Routine Amniotic band syndrome Expected: 12/22/2024 (Approximate), Expires: 06/24/2025 documented as of this encounter Visit Diagnoses Diagnosis Third trimester ([facility]) state, incidental 33 weeks gestation of ([facility]) Amniotic band syndrome Other problem associated with amniotic cavity and membranes, unspecified as to episode of care History of miscarriage Personal history of other genital system and obstetric disorders documented in this encounter Care Teams Sales Estimator Relationship Specialty Start Date End Date Link, MD Baljit PCP - General Family Medicine 10/20/22 documented as of this encounter
--- OUTSIDE RECORDS SUMMARY | 2025-01-02 15:49 | XMS_ITS | Encounter Summary ---
Author Organization [facility] Address [address] [place] [address] Care Team Providers Care Drawer In Plain Loom Name Role Phone Link, Baljit PRETTY Primary Care Provider [phone] Encounter Details Date Type Department Care Team (Late st Contact Info) Description 02/09/2023 Clinisync Result Encounter [facility] External Department Unsolicited Silas Greene DO [address] [facility] [address] [place] [place], [facility]11 Social History Tobacco [...] PM EDT Routine [facility] OBGYVadim [address] [facility] [place] [phone] Simona Currie PA [address] [facility] [place] [address] 03/14/2025 11:00 AM EST Office Visit [facility] [address] [facility] [place] [place] [address] Silas Greene DO [address] [facility] [place] [address] documented as of this encounter Procedures Procedure Name Priority Date/Time Associated Diagnosis Comments US OB GROWTH 02/09/2023 4:38 PM EDT documented in this encounter Results * US OB GROWTH (02/09/2023 4:38 PM EDT) Anatomical Region Laterality Modality Other 02/09/2023 4:38 PM EDT Narrative 02/09/2023 4:38 PM EDT [address] [address] Ultrasound Report Signed Patient: ANAND PERALES MR#: [id number] : 2000 Acct:[id number] Age/Sex: 22 / F ADM Date: 02/09/23 Loc: US Attending Dr: Silas Greene D.O. Ordering Physician: Silas Greene D.O. Date of Service: 02/09/23 Procedure(s): US OB growth Accession Number(s): [id number] cc: Silas Greene D.O. The [address] [address] Patient Name: ANAND PERALES MRN: [id number] date: 2000 Sex: F Assigned Patient Location: US Current Patient Location: US Accession/Order Number: [id number] Exam Date: 02/09/2023 13:00 Report Date: 02/09/2023 [...] Signed By: 02/09/23 1640 DD/ 1638 TD/TT: Scholastic Aptitude Test Grader: Procedure Note Radiology, Radiologist, MD - 02/09/2023 [place] [address] Ultrasound Report Signed Patient: ANAND PERALES EMR#: [id number] : 2000Acct:[id number] Age/Sex: 22 / FADM Date: 02/09/23 Loc: US Attending Dr: Silas Greene D.O. Ordering Physician: Silas Greene D.O. Date of Service: 02/09/23 Procedure(s): US OB growth Accession Number(s): [id number] cc: Silas Greene D.O. The [address] [address] Patient Name: ANAND PERALES MRN: [id number] date: 2000 Sex: F Assigned Patient Location: US Current Patient Location: US Accession/Order Number: [id number] Exam Date: 02/09/2023 13:00 Report Date: 02/09/2023 [...] M.D. Signed By:02/09/23 1640 DD/ 1638 TD/TT: Scholastic Aptitude Test Grader: us Silas Greene DO [facility] Final Result documented in this encounter Visit Diagnoses Not on filedocumented in this encounter Care Teams Drawer In Plain Loom Relationship Specialty Start Date End Date Mac, MD Baljit PCP - General Family Medicine 10/20/22 documented as of this encounter
--- OUTSIDE RECORDS SUMMARY | 2025-01-02 15:49 | XMS_ITS | Encounter Summary ---
Author Organization [facility] Address [address] [place] [address] Care Team Providers Care Formula Technician Name Role Phone Link, Baljit Gilbert DO Primary Care Provider [phone] Source Comments In the event this information is protected by the Federal Confidentiality of Alcohol and Drug AbusePatient Records regulations: The Federal rules restrict any use of the information to criminally investigate or prosecute any alcohol or drug abuse patient.[facility] Encounter Details Date Type Department Care Team (Late st Contact Info) Description 11/14/2021 Get Medical Advice Ophthalmology [address] [facility] [place] [address] Elmer Sheets, OD [address] [facility] [place] [address] Appointment Social History Tobacco Use [...] on filedocumented in this encounter Care Teams Formula Technician Relationship Specialty Start Date End Date Link, Baljit Gilbert DO [address] [place] [address] PCP - General Family Medicine 11/07/21 documented as of this encounter
--- OUTSIDE RECORDS SUMMARY | 2025-01-02 15:49 | XMS_ITS | Encounter Summary ---
Author Organization [facility] Address [address] [place] [address] Care Team Providers Care Ball Worker Name Role Phone Link, Baljit Gilbert DO Primary Care Provider [phone] Source Comments In the event this information is protected by the Federal Confidentiality of Alcohol and Drug AbusePatient Records regulations: The Federal rules restrict any use of the information to criminally investigate or prosecute any alcohol or drug abuse patient.[facility] Encounter Details Date Type Department Care Team (Late st Contact Info) Description 11/09/2021 Get Medical Advice Ophthalmology [address] [facility] [place] [address] Elmer Sheets, OD [address] [facility] [place] [address] Eyes Social History Tobacco Use [...] on filedocumented in this encounter Care Teams Ball Worker Relationship Specialty Start Date End Date Link, Baljit Gilbert DO [address] [place] [address] PCP - General Family Medicine 11/07/21 documented as of this encounter
--- OUTSIDE RECORDS SUMMARY | 2025-01-02 15:49 | XMS_ITS | Encounter Summary ---
Author Organization [facility] Address [address] [place] [address] Care Team Providers Care Boarding Specialist Name Role Phone Link, Baljit PRETTY Primary Care Provider [phone] Encounter Details Date Type Department Care Team (Late st Contact Info) Description 09/26/2022 Clinisync Result Encounter [facility] External Department Unsolicited Marco A Greene, DO [address], [place] [address] Social History Tobacco Use Types Packs/Day Years [...] 1:50 PM EDT Routine [facility] Erlinda BARRERA [address] [place] [address] [place] [address] Simona Currie PA [address] [place], [id number] 03/14/2025 11:00 AM EST Office Visit [facility] B[facility] [address] [place] [address] Marco A Greene DO [address] [place] [address] documented as of this encounter Procedures Procedure [...] gestational sac with a live fetus - [place] rump length is consistent with given OTF [...] Extended Nasal bone: present Anatomy Heart: Normal Eakly and Situs. Stomach: Visible, with correct situs. [...] gestational sac with a live fetus - [place] rump length is consistent with given OTF [...] Extended Nasal bone: present Anatomy Heart: Normal Eakly and Situs. Stomach: Visible, with correct situs. [...] on filedocumented in this encounter Care Teams Boarding Specialist Relationship Specialty Start Date End Date Link, MD Baljit PCP - General Family Medicine 10/20/22 documented as of this encounter
--- OUTSIDE RECORDS SUMMARY | 2025-01-02 15:49 | XMS_ITS | Encounter Summary ---
Author Organization [facility] Address [address] [place] [address] Care Team Providers Care Assembled Wood Products Repairer Name Role Phone Link, Baljit PRETTY Primary Care Provider [phone] Encounter Details Date Type Department Care Team (Late Contact Info) Description 11/30/2024 Abstract [facility] [address] [place] [address] Simona Woods LPN [address] [place] [address] Social History Tobacco Use Types Packs/Day Years [...] PM EDT Routine [facility] [address] [facility] [place] [address] Simona Currie PA [address] [place], [facility] 03/14/2025 11:00 AM EST Office Visit [facility] BARRERA [address] [facility] [place] [address] Marco A Greene DO [address] [facility] [place] [address] documented as of this encounter Visit Diagnoses Not on filedocumented in this encounter Care Teams Assembled Wood Products Repairer Relationship Specialty Start Date End Date Baljit Watts MD PCP - General Family Medicine 10/20/22 documented as of this encounter
--- OUTSIDE RECORDS SUMMARY | 2025-01-02 15:49 | XMS_ITS | Patient Health Record ---
Author Organization [employer] [facility] Address [address] [place] [address] Care Team Providers Care Earth Observations Chief Scientist Name Role Phone Tanika Rosales Primary Care Provider [phone] Reason For Referral No Information Encounters Encounter Location Date Provider Diagnosis [facility] [address] [place] [address] 09/28/2024 Tanika Rosales Dental caries on pit [...] Date Dental Fink [employer] [address] [place] [address] [phone] [id number] ANAND PERALSE Self - patient is the insured Dental Wrap [facility] Fink [address] [place] [address] [id number] ANAND PERALES Self - patient is the insured 5
--- OUTSIDE RECORDS SUMMARY | 2025-01-02 15:49 | XMS_ITS | Encounter Summary ---
Author Organization [facility] Address [address] [place] [address] Care Team Providers Care Field Representatives Director Name Role Phone Link, Baljit PRETTY Primary Care Provider [phone] Encounter Details Date Type Department Care Team (Late Contact Info) Description 01/12/2023 Clinisync Result Encounter [facility] External Department Unsolicited Silas Greene DO [address] [facility] [address] [place], [facility] Social History Tobacco Use Types Packs/Day [...] PM EDT Routine [facility] Erlinda OBGYVadim [address] [facility] [place] [address] Simona Currie PA [address] [facility] [place] [address] 03/14/2025 11:00 AM EST Office Visit [facility] [address] [facility] [place] [place] [phone] Silas Greene DO [address] [facility] [place] [address] documented as of this encounter Procedures Procedure Name Priority Date/Time Associated Diagnosis Comments US OB CERVICAL LENGTH 01/12/2023 4:57 PM EDT documented in this encounter Results * US OB CERVICAL LENGTH (01/12/2023 4:57 PM EDT) Anatomical Region Laterality Modality Other 01/12/2023 4:57 PM EDT Narrative 01/12/2023 4:57 [place] [address] Ultrasound Report Signed Patient: ANAND PERALES MR#: [id number] : 2000 Acct:[id number] Age/Sex: 22 / F ADM Date: 01/12/23 Loc: US Attending Dr: Silas Greene D.O. Ordering Physician: Silas Greene D.O. Date of Service: 01/12/23 Procedure(s): US OB cervical length Accession Number(s): [id number] cc: Silas Greene D.O. The [place] [id number] Patient Name: ANAND PERALES MRN: [id number] date: 2000 Sex: F Assigned Patient Location: US Current Patient Location: US Accession/Order Number: [id number] Exam Date: 01/12/2023 08:35 Report Date: 01/12/2023 [...] M.D. Signed By: 01/12/231699 DD/ 56 TD/TT: Gelatin Powder Mixer: Procedure Note Radiology, Radiologist, MD - 01/16/2023 [place] [address] Ultrasound Report Signed Patient: ANAND PERALES EMR#: [id number] : 2000Acct:[id number] Age/Sex: 22 FADM Date: 01/12/23 Loc: US Attending Dr: Silas Greene D.O. Ordering Physician: Silas Greene D.O. Date of Service: 01/12/23 Procedure(s): US OB cervical length Accession Number(s): [id number] cc: Silas Greene D.O. The [place] [address] Patient Name: ANAND PERALES MRN: [id number] date: 2000 Sex: F Assigned Patient Location: Current Patient Location: Accession/Order Number: [id number] Exam Date: 01/12/2023 08:35 Report Date: 01/12/2023 [...] Nicole M.D. Signed By:01/12/231699 DD/ 56 TD/TT: Gelatin Powder Mixer: us Silas Jc DO [facility] Final Result documented in this encounter Visit Diagnoses Not on filedocumented in this encounter Care Teams Field Representatives Director Relationship Specialty Start Date End Date Link, MD Baljit PCP - General Family Medicine 10/20/22 documented as of this encounter
--- OUTSIDE RECORDS SUMMARY | 2025-01-02 15:49 | XMS_ITS | Encounter Summary ---
Author Organization [facility] Address [address] [place] [address] Care Team Providers Care Plasma Processing Centrifuge Operator Name Role Phone Link, Baljit PRETTY Primary Care Provider [phone] Encounter Details Date Type Department Care Team (Late Contact Info) Description 11/14/2022 Abstract [facility] [address] [place] [address] [place] [address] Simona Currie PA [address] [place] [address] [place], [place] [address] Social History Tobacco Use Types Packs/Day Years [...] 1:50 PM EDT Routine [facility]elia BARRERA [address] [facility] [address] RaySimona cobian PA [address] [facility] [place] [address] 03/14/2025 11:00 AM EST Office Visit [facility]A [address] [facility] [address] Marco A Greene DO [address] [facility] [place] [address] documented as of this encounter Visit Diagnoses Not on filedocumented in this encounter Care Teams Plasma Processing Centrifuge Operator Relationship Specialty Start Date End Date Link, MD Baljit PCP - General Family Medicine 10/20/22 documented as of this encounter
--- OUTSIDE RECORDS SUMMARY | 2025-01-02 15:49 | XMS_ITS | Encounter Summary ---
Author Organization [facility] Address [address] [place] [address] Care Team Providers Care Superintendent Geophysical Laboratory Name Role Phone Link, Baljit Gilbert DO Primary Care Provider [phone] Source Comments In the event this information is protected by the Federal Confidentiality of Alcohol and Drug AbusePatient Records regulations: The Federal rules restrict any use of the information to criminally investigate or prosecute any alcohol or drug abuse patient.[facility] Encounter Details Date Type Department Care Team (Late st Contact Info) Description 11/15/2021 Get Medical Advice Ophthalmology [address] [place] [address] Elmer Sheets, OD [address] [facility] [place] [address] Eyes Social History Tobacco Use [...] on filedocumented in this encounter Care Teams Superintendent Geophysical Laboratory Relationship Specialty Start Date End Date Link, Baljit Gilbert DO [address] [place] [address] PCP - General Family Medicine 11/07/21 documented as of this encounter
--- OUTSIDE RECORDS SUMMARY | 2025-01-02 15:49 | XMS_ITS | Encounter Summary ---
Author Organization [facility] Address [address] [place] [address] Care Team Providers Care Call Specialist Name Role Phone Link, Baljit Gilbert DO Primary Care Provider [phone] Source Comments In the event this information is protected by the Federal Confidentiality of Alcohol and Drug AbusePatient Records regulations: The Federal rules restrict any use of the information to criminally investigate or prosecute any alcohol or drug abuse patient.[facility] Encounter Details Date Type Department Care Team (Late st Contact Info) Description 11/18/2021 Get Medical Advice Ophthalmology [address] [place] [address] Elmer Sheets, OD [address] [facility] [place] [address] Tobradex Gel Social History Tobacco [...] on filedocumented in this encounter Care Teams Call Specialist Relationship Specialty Start Date End Date Link, Baljit Gilbert DO [address] [place] [address] PCP - General Family Medicine 11/07/21 documented as of this encounter
--- OUTSIDE RECORDS SUMMARY | 2025-01-02 15:49 | XMS_ITS | Encounter Summary ---
Author Organization [facility] Address [address] [place] [address] Care Team Providers Care Sheet Ironworker Name Role Phone Link, Baljit PRETTY Primary Care Provider [phone] Encounter Details Date Type Department Care Team (Late Contact Info) Description 11/10/2022 Clinisync Result Encounter NOMS External Department Unsolicited Marco A Greene DO [address] [facility] [address] [place], [facility]11 Social History Tobacco Use [...] PM EDT Routine [facility] Erlinda OBGYVadim [address] [facility] [place] [phone] Simona Currie PA [address] [facility] [place] [address] 03/14/2025 11:00 AM EST Office Visit [facility] Erlinda OBGYN [address] [facility] [place] [address] Marco A Greene DO [address] [facility] [place] [address] documented as of this encounter Procedures Procedure [...] EFW (oz) 10 oz EFW by: Hadlock ([id number]-FL) Extended Yard Motor Operator 7.6 mm CM 4.4 mm 35% [...] Normal LVOT view: Normal 3-vessel view: Normal 1-upqoru-oeptddb view: Normal Heart / Thorax Situs: situs [...] EFW (oz) 10 oz EFW by: Hadlock ([id number]-FL) Extended Yard Motor Operator 7.6 mm CM 4.4 mm 35% [...] Normal LVOT view: Normal 3-vessel view: Normal 1-qtavwq-tibjjrm view: Normal Heart / Thorax Situs: situs [...] on filedocumented in this encounter Care Teams Sheet Ironworker Relationship Specialty Start Date End Date Link, MD Baljit PCP - General Family Medicine 10/20/22 documented as of this encounter
--- OUTSIDE RECORDS SUMMARY | 2025-01-02 15:50 | XMS_ITS | Clinical Summary ---
Author Organization [facility] Address [address] [place] [address] Care Team Providers Care Byproduct Engineer Name Role Phone Link, Baljit Gilbert Primary Care Provider [phone] Allergies No known active allergies Medications predniSONE [...] HPV Vaccine Completed 06/21/2012, 01/25, 12/08/2011 Insurance [employer] Care Teams Byproduct Engineer Relationship Specialty Start Date End Date Link, Baljit Gilbert DO [address] [place] [address] PCP - General Family Medicine 11/07/21
--- OUTSIDE RECORDS SUMMARY | 2025-01-02 15:50 | XMS_ITS | Clinical Summary ---
Author Organization [facility] Address [address] [facility], [address] [place] [address] Care Team Providers Care Chain Mender Name Role Phone Unavailable Primary Care Provider [...]
--- OUTSIDE RECORDS SUMMARY | 2025-01-02 15:50 | XMS_ITS | Encounter Summary ---
Author Organization [facility] Address [address] [place] [address] Care Team Providers Care Spice Miller Hammer Mill Name Role Phone Link, Baljit Gilbert DO Primary Care Provider [phone] Source Comments In the event this information is protected by the Federal Confidentiality of Alcohol and Drug AbusePatient Records regulations: The Federal rules restrict any use of the information to criminally investigate or prosecute any alcohol or drug abuse patient.[facility] Encounter Details Date Type Department Care Team (Late st Contact Info) Description 11/25/2021 Get Medical Advice Ophthalmology [address] [place] [address] Elmer Sheets, OD [address] [facility] [place] [address] Eye drops Social History Tobacco [...] on filedocumented in this encounter Care Teams Spice Miller Hammer Mill Relationship Specialty Start Date End Date Link, Baljit Gilbert DO [address] [facility] [place] [phone] PCP - General Family Medicine 11/07/21 documented as of this encounter
--- OUTSIDE RECORDS SUMMARY | 2025-01-02 15:50 | XMS_ITS | Encounter Summary ---
Author Organization [facility] Address [address] [place] [address] Care Team Providers Care Vocal Music Instructor Name Role Phone Link, Baljit PRETTY Primary Care Provider [phone] Encounter Details Date Type Department Care Team (Late Contact Info) Description 12/22/2024 Bamboo flowsheet [facility] [place]inda BARRERA [address] [facility] [place] [address] Simona Currie PA [address] [place] [address] Dr [place], [place] [address] Social History Tobacco Use Types Packs/Day Years [...] PM EDT Routine [facility] [place]inda BARRERA [address] [facility] [place] [address] Simona Currie PA [address] [place] [address] Dr [place], [facility]11 03/14/2025 11:00 AM EST Office Visit [facility] [place] BARRERA [address] [facility] [place] [address] Marco A Greene DO [address] [facility] [place] [address] documented as of this encounter Visit Diagnoses Not on filedocumented in this encounter Care Teams Vocal Music Instructor Relationship Specialty Start Date End Date Link, MD Baljit PCP - General Family Medicine 10/20/22 documented as of this encounter
--- OUTSIDE RECORDS SUMMARY | 2025-01-02 15:50 | XMS_ITS | Encounter Summary ---
Author Organization [facility] Address [address] [place] [address] Care Team Providers Care Sales Promotion Manager Name Role Phone Link, Baljit PRETTY Primary Care Provider [phone] Encounter Details Date Type Department Care Team (Late st Contact Info) Description 12/29/2024 Clinisync Result Encounter NOMS External Department Unsolicited Marco A Greene DO [address] [place] [address] Social History Tobacco Use Types Packs/Day Years [...] PM EDT Routine [facility] [place] BARRERA [address] [place] [phone] Simona Currie PA [address] [place] [address] 03/14/2025 11:00 AM EST Office Visit [facility] Erlinda DOMINGUEZGYN [address] [facility] [place] [address] Marco A Greene DO [address] [facility] [place] [address] documented as of this encounter Procedures Procedure Name Priority Date/Time Associated Diagnosis Comments US OB BPP W NON-STRESS 12/29/2024 7:37 PM EDT documented in this encounter Results * US OB BPP W NON-STRESS (12/29/2024 7:37 PM EDT) Anatomical Region Laterality Modality Other 12/29/2024 7:37 PM EDT Narrative 12/29/2024 7:40 PM EDT The [place] [id number] Ultrasound Report Signed Patient: JOHANA HERRERA MR#: [id number] : 2000 Acct:[id number] Age/Sex: 24 / F ADM Date: 12/29/24 Loc: US Attending Dr: Marco A Greene D.O. Ordering Physician: Marco A Greene D.O. Date of Service: 12/29/24 Procedure(s): US OB BPP w non-stress Accession Number(s): [id number] cc: Marco A Greene D.O.; Physician,Non-Staff M.D. The [address] [address] Patient Name: JOHANA HERRERA MRN: [id number] date: 2000 Sex: F Assigned Patient Location: [facility] Current Patient Location: Accession/Order Number: [id number] Exam Date: 12/29/2024 17:15 Report Date: 12/29/2024 19:37 At the request of: MARCO A GREENE DO Procedure: US OB BPP w non-stress Ultrasound biophysical profile HISTORY: Amniotic band syndrome Adequate breathing movement, gross body movement, tone and amniotic fluid volume for total score of 8 out of 8. The amniotic fluid index is 15.1cm within normal limits. The heart rate 127 bpm. US/US OB BPP w non-stress IMPRESSION: Adequate ultrasound biophysical profile Impression dictated by: Charles Bo M.D. 12/29/2024 7:37 PM Dictation Location: [place] [address] Electronically authenticated by: [id number] Y Date: 12/29/2024 19:37 Dictated By: Charles Bo D.O. Signed By: 12/29/241939 DD/ 36 TD/TT: Team Guide: Procedure Note Radiology, Radiologist, - 12/29/2024 [place] [address] Ultrasound Report Signed Patient: JOHANA HERRERA EMR#: [id number] : 2000Acct:[id number] Age/Sex: 24 / FADM Date: 12/29/24 Loc: US Attending Dr: Marco A Greene D.O. Ordering Physician: Marco A Greene D.O. Date of Service: 12/29/24 Procedure(s): US OB BPP w non-stress Accession Number(s): [id number] cc: Marco A Greene D.O.; Physician,Non-Staff Lane[place] The [address] [id number] Patient Name: JOHANA HERRERA MRN: [id number] date: 2000 Sex: F Assigned Patient Location: [facility] Current Patient Location: Accession/Order Number: [id number] Exam Date: 12/29/2024 17:15 Report Date: 12/29/2024 19:37 At the request of: MARCO A GREENE DO Procedure: US OB BPP w non-stress Ultrasound biophysical profile HISTORY: Amniotic band syndrome Adequate breathing movement, gross body movement, tone and amniotic fluid volume for total score of 8 out of 8. The amniotic fluidindex is 15.1cm within normal limits. The heart rate 127 bpm. US/US OB BPP w non-stress IMPRESSION: Adequate ultrasound biophysical profile Impression dictated by: Charles Bo M.D. 12/29/2024 7:37 PM Dictation Location: [place] [address] Electronically authenticated by: [id number] Y Date: 9:37 Dictated By: Charles Bo D.O. Signed By:12/29/241939 DD/ 36 TD/TT: Team Guide: us Marco A Jc DO [facility] Final Result documented in this encounter Visit Diagnoses Not on filedocumented in this encounter Care Teams Sales Promotion Manager Relationship Specialty Start Date End Date Baljit Watts MD PCP - General Family Medicine 10/20/22 documented as of this encounter
--- OUTSIDE RECORDS SUMMARY | 2025-01-02 15:50 | XMS_ITS | Encounter Summary ---
Author Organization [facility] Address [address] [place] [address] Care Team Providers Care Gas Combustion Engineer Name Role Phone Link, Baljit PRETTY Primary Care Provider [phone] Encounter Details Date Type Department Care Team (Late Contact Info) Description 03/16/2023 Abstract NOMEmelia BARRERA [address] [place] [address] Lisa Gleason LPN [address] [facility] [address] [place] [address] Social History Tobacco Use Types Packs/Day Years [...] 1:50 PM EDT Routine NOMEmelia BARRERA [address] [place] [address] Simona Currie PA [address] [facility] [place] [address] 03/14/2025 11:00 AM EST Office Visit [facility] Dario BARRERA [address] [facility] [place] [address] Marco A Greene DO [address] [facility] [place] [address] documented as of this encounter Visit Diagnoses Not on filedocumented in this encounter Care Teams Gas Combustion Engineer Relationship Specialty Start Date End Date Link, MD Baljit PCP - General Family Medicine 10/20/22 documented as of this encounter
--- OUTSIDE RECORDS SUMMARY | 2025-01-02 15:50 | XMS_ITS | Encounter Summary ---
Author Organization [facility] Address [address] [place] [address] Care Team Providers Care Drying Tunnel Operator Name Role Phone Link, Baljit PRETTY Primary Care Provider [phone] Encounter Details Date Type Department Care Team (Late Contact Info) Description 03/17/2024 Orders Only [facility] Erlinda BARRERA [address] [facility] [place] [address] Lisa Gleason LPN [address] [address] [place] [address] Social History Tobacco Use Types Packs/Day Years [...] [address] [facility] [place] [place] [address] Simona Currie PA [address] [facility] [address] [place], [facility] 03/14/2025 11:00 AM EST Office Visit [facility] Erlinda OBGYN [address] [facility] [place] [address] Marco A Greene DO [address] [facility] [place] [address] documented as of this encounter Procedures Procedure [...] on filedocumented in this encounter Care Teams Drying Tunnel Operator Relationship Specialty Start Date End Date Link, MD Baljit PCP - General Family Medicine 10/20/22 documented as of this encounter
--- OUTSIDE RECORDS SUMMARY | 2025-01-02 15:50 | XMS_ITS | Encounter Summary ---
Author Organization [facility] Address [address] [place] [address] Care Team Providers Care Territory Sales Executive Name Role Phone Link, Baljit PRETTY Primary Care Provider [phone] Encounter Details Date Type Department Care Team (Late Contact Info) Description 09/29/2024 Abstract [facility] Erlinda BARRERA [address] [facility] [place] [address] Marco A Greene DO [address] [facility] [address] [place], [place] [address] Social History Tobacco Use Types Packs/Day Years [...] PM EDT Routine [facility] [place] BARRERA [address] [facility] [place] [address] Simona Currie PA [address] [facility] [address] [place], [facility]11 03/14/2025 11:00 AM EST Office Visit [facility] Erlinda BARRERA [address] [facility] [place] [address] Marco A Greene DO [address] [facility] [place] [address] documented as of this encounter Visit Diagnoses Not on filedocumented in this encounter Care Teams Territory Sales Executive Relationship Specialty Start Date End Date Link, MD Baljit PCP - General Family Medicine 10/20/22 documented as of this encounter
--- OUTSIDE RECORDS SUMMARY | 2025-01-02 15:50 | XMS_ITS | Clinical Summary ---
Author Organization [facility] Address [address] [place] [address] Phone Care Team Providers Care Switchgear Repairer Name Role Phone Unavailable Primary Care Provider Unavailabl e Allergies No known active allergies Medications [id number] c acid (PreNata) 29 mg iron- 1 [...] Pap Smear 10/08/2020 COVID-19 Vaccine ( season) 2024 Influenza Vaccine (#1) 2024 04/27/2020 Yearly Adult [...] patient's age to complete this topic Insurance [facility]
--- OUTSIDE RECORDS SUMMARY | 2025-01-02 15:50 | XMS_ITS | Clinical Summary ---
Author Organization [facility] Address [address] [place] [address] Care Team Providers Care Asw/Asuw Tactical Air Controller Name Role Phone Unavailable Primary Care Provider [...]
--- OUTSIDE RECORDS SUMMARY | 2025-01-02 15:50 | XMS_ITS | Encounter Summary ---
Author Organization [facility] Address [address] [place] [address] Care Team Providers Care Sports Physical Therapist Name Role Phone Link, Baljit PRETTY Primary Care Provider [phone] Encounter Details Date Type Department Care Team (Late st Contact Info) Description 03/10/2023 Clinisync Result Encounter NOMS External Department Unsolicited Silas Greene DO [address] [facility] [address] [place], [facility]11 Social History Tobacco Use Types Packs/Day [...] PM EDT Routine [facility] [place] OBGYN [address] [facility] [place] [address] Simona Currie PA [address] [facility] [address] [place], [facility]11 03/14/2025 11:00 AM EST Office Visit [facility] [place]inda OBGYN [address] [facility] [place] [address] JcSilas blackman, DO [address] [facility] [place] [address] documented as of this encounter Procedures Procedure [...] EST Narrative 03/10/2023 10:23 AM EST The [address] [address] Ultrasound Report Signed Patient: ANAND PERALES MR#: [id number] : 2000 Acct:[id number] Age/Sex: 22 / F ADM Date: Loc: [facility] 251-[address]: Anita Graves M.D. Ordering Physician: Silas Greene D.O. Date of Service: 03/10/23 Procedure(s): US OB BPP wo non-stress Accession Number(s): [id number] cc: Sials Greene D.O.; Physician,Non-Staff [place] The [address] [address] Patient Name: ANAND PERALES MRN: [facility]:[id number] date: 2000 Sex: F Assigned Patient Location: [facility] Current Patient Location: [facility] Accession/Order Number: [id number] Exam Date: 03/10/2023 08:45 Report Date: 03/10/2023 [...] Signed By: 03/10/23 1026 DD/ 1023 TD/TT: Fence Builder: Procedure Note Radiology, Radiologist, MD - 03/10/2023 [place] [address] Ultrasound Report Signed Patient: ANAND PERALES EMR#: [id number] : 2000Acct:[id number] Age/Sex: 22 / FADM Date: Loc: [facility] Attending Dr: Anita Graves M.D. Ordering Physician: Silas Greene D.O. Date of Service: 03/10/23 Procedure(s): US OB BPP wo non-stress Accession Number(s): [id number] cc: Silas Greene D.O.; Physician,Non-Staff [address] [place] [address] Patient Name: ANAND PERALES MRN: [id number] date: 2000 Sex: F Assigned Patient Location: [facility] Current Patient Location: [facility] Accession/Order Number: [id number] Exam Date: 03/10/2023 08:45 Report Date: 03/10/2023 [...] M.D. Signed By:03/10/23 1026 DD/ 1023 TD/TT: Fence Builder: us Silas Greene DO [facility] Final Result documented in this encounter Visit Diagnoses Not on filedocumented in this encounter Care Teams Sports Physical Therapist Relationship Specialty Start Date End Date Mac, MD Baljit PCP - General Family Medicine 10/20/22 documented as of this encounter
--- OUTSIDE RECORDS SUMMARY | 2025-01-02 15:50 | XMS_ITS | Encounter Summary ---
Author Organization [facility] Address [address] [facility] [place] [address] Care Team Providers Care Electromechanical Technician Name Role Phone Link, Baljit PRETTY Primary Care Provider [phone] Encounter Details Date Type Department Care Team (Late st Contact Info) Description 03/13/2023 Clinisync Result Encounter NOMS External Department Unsolicited Silas Greene DO [address] [facility] [address] [place], [facility]11 Social History Tobacco Use Types Packs/Day Years [...] PM EDT Routine [facility] [place] OBGYN [address] [facility] [place] [address] Simona Currie PA [address] [facility] [address] [place], [facility]11 03/14/2025 11:00 AM EST Office Visit [facility] Er[place]inda DOMINGUEZGYN [address] [facility] [place] [address] Silas Greene DO [address] [facility] [place] [address] documented as of this encounter Procedures Procedure Name Priority Date/Time Associated Diagnosis Comments US OB BPP W NON-STRESS 03/13/2023 8:47 AM EST documented in this encounter Results * US OB BPP W NON-STRESS (03/13/2023 8:47 AM EST) Anatomical Region Laterality Modality Other 03/13/2023 8:47 AM EST Narrative 03/13/2023 8:47 [place] [address] Ultrasound Report Signed Patient: ANAND PERALES MR#: [id number] : 2000 Acct:[id number] Age/Sex: 22 / F ADM Date: 03/13/23 Loc: [facility] 254-[address]: Silas Greene D.O. Ordering Physician: Silas Greene D.O. Date of Service: 03/13/23 Procedure(s): US OB BPP w non-stress Accession Number(s): [id number] cc: Silas Greene D.O.; Physician,Non-Staff M.DIrvin The [address] [address] Patient Name: ANAND PERALES MRN: [id number] date: 2000 Sex: F Assigned Patient Location: [facility] Current Patient Location: [facility] Accession/Order Number: [id number] Exam Date: 03/13/2023 07:50 Report Date: 03/13/2023 [...] Nicole M.D. Signed By: 03/13/2349 DD/ TD/TT: Diamond Sorter: Procedure Note Radiology, Radiologist, - 03/13/2023 [place] [address] Ultrasound Report Signed Patient: ANAND PERALES EMR#: [id number] : 2000Acct:[id number] Age/Sex: 22 / FADM Date: 03/13/23 Loc: [facility] 254-[address]: Silas Greene D.O. Ordering Physician: Silas Greene D.O. Date of Service: 03/13/23 Procedure(s): US OB BPP w non-stress Accession Number(s): [id number] cc: Silas Greene D.O.; Physician,Non-Staff M.[place] The [place] [address] Patient Name: ANAND PERALES MRN: [id number] date: 2000 Sex: F Assigned Patient Location: [facility] Current Patient Location: [facility] Accession/Order Number: [id number] Exam Date: 03/13/2023 07:50 Report Date: 03/13/2023 [...] Jess Nicole M.D. Signed By:03/13/2349 DD/ TD/TT: Diamond Sorter: us Silas Jc DO [facility] Final Result documented in this encounter Visit Diagnoses Not on filedocumented in this encounter Care Teams Electromechanical Technician Relationship Specialty Start Date End Date Link, MD Baljit PCP - General Family Medicine 10/20/22 documented as of this encounter
--- OUTSIDE RECORDS SUMMARY | 2025-01-02 15:50 | XMS_ITS | Encounter Summary ---
Author Organization [facility] Address [address] [place] [address] Care Team Providers Care Microsoft Dynamics Ax Developer Name Role Phone Link, Baljit Gilbert DO [...] Description 11/20/2021 Get Medical Advice Ophthalmology [address] [facility] [place] [address] Elmer Sheets, OD [address] [facility] [place] [address] Eye drops Social History Tobacco [...] on filedocumented in this encounter Care Teams Microsoft Dynamics Ax Developer Relationship Specialty Start Date End Date Link, Baljit Gilbert DO [address] [facility] [place] [address] PCP - General Family Medicine 11/07/21 documented as of this encounter
--- OUTSIDE RECORDS SUMMARY | 2025-01-02 15:50 | XMS_ITS | Encounter Summary ---
Author Organization [facility] Address [facility] [place] [address] Care Team Providers Care Medical Assistant Secretary Name Role Phone Unavailable Primary Care Provider Unavailabl e Encounter Details Date Type Department Care Team ([facility] st Contact Info) Description 04/25/2020 Scanned Document [facility] [address] [place] [phone] Provider, Legacy Conversion Social History Tobacco Use [...]
--- OUTSIDE RECORDS SUMMARY | 2025-01-02 15:50 | XMS_ITS | Clinical Summary ---
Author Organization [facility] Healthcare Address [address] [place] [address] Care Team Providers Care Senior Design Engineering Specialist Name Role Phone Link, Baljit PRETTY Primary Care Provider [phone] Allergies No known active allergies Medications Vyvanse [...] weeks gestation 30 suppository 11/11/19 25 025 nitrofurantoin, macrocrystal-mo nohydrate, (Macrobid) 100 [...] Encounters Date Type Department Care Team Description 12/29/2024 Clinisync Result Encounter NOMS External Department Unsolicited Jc SilasDO 12/22/2024 2:00 PM EDT Routine [facility] [address] Simona Gunn PA Third trimester ([facility]); 33 weeks gestation of ([facility]); Amniotic band syndrome; History of miscarriage 12/22/2024 Bamboo flowsheet [facility] [place] [address] Simona Gunn PA 12/12/2024 11:00 AM EDT [place] [address] Third trimester ([facility]); 31 weeks gestation of ([facility]); Screening, , for anatomic survey ([facility]) 12/08/2024 11:30 AM EDT Routine [facility] [place] [address] Silas Greene DO Third trimester ([facility]); 31 weeks gestation of ([facility]); Screening, , for anatomic survey ([facility]) 12/08/2024 11:00 AM EDT Ancillary [place] [address] Size of fetus inconsistent with dates in second trimester ([facility]) 12/08/2024 [place] [address] Rose Costello LPN 12/06/2024 Patient Outreach [facility] [address] [place] [address] Simona Woods LPN 11/30/2024 Abstract [facility] [address] [place] [address] Simona Mckeon LPN 11/29/2024 Telephone [facility] Erlinda OBGYN [address] [address] Silas Greene, 11/22/2024 11:40 AM EDT Routine [facility] Erlinda OBGYN [address] [place] [phone] Silas Greene, Size of fetus inconsistent with dates in second trimester ([facility]) (Primary Dx); Second trimester ([facility]); 28 weeks gestation of ([facility]); Mastitis 11/22/2024 [employer] flowsheet [facility] Erlinda OBGYN [address] [place] [address] Silas Greene, 11/10/2024 Telephone [facility] Erlinda OBGYN [address] [place] [address] Piedad Dewitt LPN 10/31/2024 Clinisync Result Encounter NOMS External Department Unsolicited Simona Gunn PA 10/25/2024 2:30 PM EDT Routine [facility] Erlinda D[facility]ZGYN [address] [place] [address] Simona Gunn PA Second trimester ([facility]); 24 weeks gestation of ([facility]); HSV infection; H/O pre-eclampsia in prior , currently ([facility]); Diabetes mellitus screening; Encounter for anatomic survey ([facility]) 10/25/2024 Bamboo flowsheet [facility] Erlinda OBGYN [address] [place] [address] Simona Gunn PA from Last 3 Months Family History Medical [...] 1:50 PM EDT Routine NOMEmelia BARRERA [address] [address] Simona Gunn PA [address] [facility] [facility] [address] [place], [place] [id number] 03/14/2025 11:00 AM EST Office Visit LON BARRERA [address] [place] [address] Silas Greene DO [address] [facility] [facility] [place] [address] Procedures Procedure Name Priority Date/Time Associated Diagnosis Comments US OB BPP W NON-STRESS 12/29/2024 7:37 PM EDT US OB 14+ WEEKS ANATOMY SCAN Routine 12/12/2024 11:50 AM EDT Third trimester ([facility]) 31 weeks gestation of ([facility]) Screening, , for anatomic survey ([facility]) US OB FOLLOW UP TRANSABDOMINAL APPROACH Routine 12/08/2024 11:16 AM EDT Size of fetus inconsistent with dates in second trimester ([facility]) POCT URINALYSIS DIPSTICK Routine 11/22/2024 12:01 PM EDT Second trimester ([facility]) 28 weeks gestation of ([facility]) ALL CBC WITH AUTO DIFF Routine 10:36 AM EDT GLUCOSE 1 HOUR Routine 10/31/2024 10:36 AM EDT US OB INCOMPLETE ANATOMY 10/31/2024 9:54 AM EDT POCT URINALYSIS DIPSTICK Routine 10/25/2024 2:39 PM EDT Second trimester ([facility]) from Last 3 Months Results * US OB BPP W NON-STRESS (12/29/2024 7:37 PM EDT) Anatomical Region Laterality Modality Other 12/29/2024 7:37 PM EDT Narrative 12/29/2024 7:40 [place] [address] Ultrasound Report Signed Patient: ANAND PERALES MR#: [id number] : 2000 Acct:[id number] Age/Sex: 24 / F ADM Date: 12/29/24 Loc: US Attending Dr: Silas Greene D.O. Ordering Physician: Silas Greene D.O. Date of Service: 12/29/24 Procedure(s): US OB BPP w non-stress Accession Number(s): [id number] cc: Silas Greene D.O.; Physician,Non-Staff M.D. The [address] [address] Patient Name: ANAND PERALES MRN: [facility]:[id number] date: 2000 Sex: F Assigned Patient Location: [facility] Current Patient Location: Accession/Order Number: [id number] Exam Date: 12/29/2024 17:15 Report Date: 12/29/2024 19:37 At the request of: SILAS GREENE DO Procedure: US OB BPP w [...] Bo M.D. 12/29/2024 7:37 PM Dictation Location: [place] [address] Electronically authenticated by: [id number] Y Date: 12/29/2024 19:37 Dictated By: Charles Bo D.O. Signed By: 12/29/241939 DD/ 36 TD/TT: Insole Department Worker: Procedure Note Radiology, Radiologist, MD - 12/29/2024 [place] [address] Ultrasound Report Signed Patient: ANAND PERALES EMR#: [id number] : 2000Acct:[id number] Age/Sex: 24 / FADM Date: 12/29/24 Loc: US Attending Dr: Silas Greene D.O. Ordering Physician: Silas Greene D.O. Date of Service: 12/29/24 Procedure(s): US OB BPP w non-stress Accession Number(s): [id number] cc: Silas Greene D.O.; Physician,Non-Staff [place] The [place] [id number] Patient Name: ANAND PERALES MRN: [facility]:[id number] date: 2000 Sex: F Assigned Patient Location: [facility] Current Patient Location: Accession/Order Number: [id number] Exam Date: 12/29/2024 17:15 Report Date: 12/29/2024 19:37 At the request of: SILAS GREENE DO Procedure: US OB BPP w [...] Bo M.D. 12/29/2024 7:37 PM Dictation Location: [email or web address] Electronically authenticated by: [id number] Y Date: 9:37 Dictated By: Charles Bo D.O. Signed By:12/29/241939 DD/ 36 TD/TT: Insole Department Worker: us Silas Greene DO [facility] Final Result * US OB 14+ weeks anatomy scan [...] II, MD, PHD at 15-Dec-2024 08:04:22 AM [facility] Procedure Note Zca Martinez MD - 12/15/2024 EXAM: US OB [...] signed by ZAC MARTINEZ II, MD, PHD [id number] 08:04:22 AM [facility] us Silas Greene DO IMG OB US PROCEDURES Final Resul [...] BY: Jorge Salazar MD us Simona ROSS IMMyesha OB US PROCEDURES Final Resul t * POCT urinalysis dipstick manually resulted (11/22/2024 12:01 PM EDT) Only the most recent of2 resultswithin the time period is included. Pathologist [facility] Color, UA Yellow Clarity, UA Clear Glucose, [...] Positive Urine 11/22/2024 12:0 1 PM EDT Silas Greene DO POINT OF CARE TEST ENTER/EDIT OR DERABLES Final Result * GLUCOSE 1 HOUR (10/31/2024 10:36 AM EDT) [facility] GLUCOSE 1 HOUR 126 <130 mg/dL TB 10/31/2024 10:3 6 AM EDT 10/31/2024 10:38 AM EDT Narrative [facility] - 10/31/2024 10:56 AM EDT Simona ROSS LAB BLOOD ORDERABLES Final Resul t [facility] * (ABNORMAL) ALL CBC WITH AUTO DIFF (10/31/2024 10:36 AM EDT) [facility] TB WBC 8.5 4.0 - 11.0 10 3/uL [facility] TB RBC 3.44(L) 4.20 - 5.40 10 6/uL [facility] TBH HGB 10.7(L) 12.0 - 16.0 g/dL [facility] TB HCT 32.3(L) 36.0 - 48.0 % [...] EDT us Simona TUTTLE Final Result [facility] * US OB INCOMPLETE ANATOMY (10/31/2024 9:54 AM EDT) Anatomical Region Laterality Modality Other 10/31/2024 9:54 AM EDT Narrative 10/31/2024 9:57 AM EDT [address] [address] Ultrasound Report Signed Patient: ANAND PERALES MR#: [id number] : 2000 Acct:[id number] Age/Sex: 24 / F ADM Date: 10/31/24 Loc: US Attending Dr: Simona Gunn Ordering Physician: Simona Gunn Date of Service: 10/31/24 Procedure(s): US OB incomplete anatomy Accession Number(s): [id number] cc: Simona Gunn; Physician,Non-Staff Lane[place] The [address] [address] Patient Name: ANAND PERALES MRN: [facility]:[id number] date: 2000 Sex: F Assigned Patient Location: US Current Patient Location: US Accession/Order Number: [id number] Exam Date: 10/31/2024 09:53 Report Date: 10/31/2024 [...] normal. The spine was surveyed by the mid level developer and no abnormalities were reported. US/US OB incomplete anatomy IMPRESSION: UNREMARKABLE SPINE ASSESSMENT. Impression dictated by: Hillary Barth M.D. 10/31/2024 9:54 AM Dictation Location: [place] [address] Electronically authenticated by: [id number] Y Date: 10/31/2024 09:54 Dictated By: Hillary Barth M.D. Signed By: 10/31/24 0957 DD/ 0954 TD/TT: Insole Department Worker: Procedure Note Radiology, Radiologist, MD - 10/31/2024 The [place] [id number] Ultrasound Report Signed Patient: ANAND PERALES EMR#: [id number] : 2000Acct:[id number] Age/Sex: 24 / FADM Date: 10/31/24 Loc: US Attending Dr: Simona Gunn Ordering Physician: Simona Gunn Date of Service: 10/31/24 Procedure(s): US OB incomplete anatomy Accession Number(s): [id number] cc: Simona Gunn; Physician,Non-Staff [address] [facility] [place] [id number] Patient Name: ANAND PERALES MRN: [facility]:[id number] date: 2000 Sex: F Assigned Patient Location: US Current Patient Location: US Accession/Order Number: [id number] Exam Date: 10/31/2024 09:53 Report Date: 10/31/2024 [...] subjectively normal. Thespine was surveyed by the mid level developer and no abnormalities were reported. US/US OB incomplete anatomy IMPRESSION: UNREMARKABLE SPINE ASSESSMENT. Impression dictated by: Hillary Barth M.D. 10/31/2024 9:54 AM Dictation Location: [place] [address] Electronically authenticated by: [id number] Y Date: 509:54 Dictated By: Hillary Barth M.D. Signed By:10/31/24 0957 DD/ 0954 TD/TT: Insole Department Worker: Simona ROSS [facility] Final Result from Last 3 Months Insurance [place] [employer] Member Subscriber Plan / Payer (Ef fective 2020-Present) Name:Anand Perales Relation to Subscriber:Self Name:Bora Peralesalejandrina Kidd Payer ID:[id number] (NAIC) Type:Not on file Address: [place] [address] Care Teams Senior Design Engineering Specialist Relationship Specialty Start Date End Date Link, MD Baljit PCP - General Family Medicine 10/20/22
--- OUTSIDE RECORDS SUMMARY | 2025-01-02 15:50 | XMS_ITS | Encounter Summary ---
Author Organization [facility] Address [address] [place] [address] Care Team Providers Care Newspaper Carrier Name Role Phone Link, Baljit PRETTY Primary Care Provider [phone] Encounter Details Date Type Department Care Team (Late Contact Info) Description 08/16/2024 Abstract [facility] Erlinda BARRERA [address] [place] [address] Marco A Greene DO [address] [place], [place] [address] Social History Tobacco Use Types Packs/Day Years [...] [address] [place] [address] Simona Currie PA [address] [place], [facility] 03/14/2025 11:00 AM EST Office Visit [facility] Erlinda BARRERA [address] [place] [address] Marco A Greene DO [address] [place] [address] documented as of this encounter Visit Diagnoses Not on filedocumented in this encounter Care Teams Newspaper Carrier Relationship Specialty Start Date End Date Link, MD Baljit PCP - General Family Medicine 10/20/22 documented as of this encounter
[2025-01-02 16:05] VITALS: BP 126/68; PULSE 114
== END 2025-01-02 16:44 | disposition home or self-care (01) ==
LOC: FBCO 15:47 → FBC 16:02
PROVIDERS: Visit Provider Obstetrics & Gynecology
DX: O26.893 Other specified pregnancy related conditions, third trimester (principal); Z3A.34 34 weeks gestation of pregnancy
CPT/HCPCS: 59025

== ENCOUNTER 2025-01-09 15:46 | Outpatient (OUT) | payer OTHER, SELFPAY ==
--- OUTSIDE RECORDS SUMMARY | 2025-01-04 13:50 | XMS_ITS | Encounter Summary ---
Author Organization [facility] Address [address] [place] [address] Care Team Providers Care Gl Accountant Name Role Phone Link, Baljit PRETTY Primary Care Provider [phone] Reason for Visit * Reason Comments Routine Visit Encounter Details Date Type Department Care Team (Late st Contact Info) Description 01/04/2025 1:50 PM EDT Routine NOMEmelia BARRERA [address] [place] [address] Simona Currie PA [address] [facility] [facility] [address] [place], [facility] Third trimester ([facility]); 35 weeks gestation of ([facility]) Social History Tobacco Use Types Packs/Day Years [...] Problems Past Medical History: Diagnosis Date Pre-eclampsia ([facility]) HISTORY PAST MEDICAL HISTORY SOCIAL HISTORY Past Medical History: Diagnosis Date Pre-eclampsia ([facility]) Social History Tobacco Use Smoking status: Never [...] nursing note reviewed. Exam conducted with a terrazzo journeyman present. Vitals: Estimated body mass index is 30.3 kg/m?? as calculated from the following: Height as of 10/26/23: 5' 6 . Weight as of this encounter: 187 lb 12 oz. BP: 126/62 Patient's last menstrual period was 05/04/2024. ASSESSMENT & PLAN ICD-10-CM 1. Third trimester ([facility]) Z34.93 POCT urinalysis dipstick manually resulted 2. 35 weeks gestation of ([facility]) Z3A.35 Return OB: Patient presents today for [...] Care Team (Late st Contact Info) Description 01/11/2025 2:30 PM EDT Routine [facility]elia [facility] [address] [facility] [address] Marco A Greene DO [address] [place] [address] 03/14/2025 11:00 AM EST Office Visit NOMEmelia BARRERA [address] [place] [phone] Marco A Greene DO [address] [place], [place] [phone] documented as of this encounter Procedures Procedure Name Priority Date/Time Associated Diagnosis Comments POCT URINALYSIS DIPSTICK Routine 01/04/2025 1:32 PM EDT Third trimester ([facility]) documented in this encounter Results * (ABNORMAL) [...] Negative - 2000(20) ++++ mg/dL Urobilinogen, UA 0.2 0.2 - 12 mg/dL Leukocytes, UA Negative Negative - 500+++ Sebastián/mcL Nitrite, UA Negative Negative - Positive Urine 01/04/2025 1:32 PM EDT Simona ROSS POINT OF CARE TEST ENTER/EDIT OR DERABLES Final Result documented in this encounter Visit Diagnoses Diagnosis Third trimester ([facility]) state, incidental 35 weeks gestation of ([facility]) documented in this encounter Care Teams Gl Accountant Relationship Specialty Start Date End Date Baljit Watts MD PCP - General Family Medicine 10/20/22 documented as of this encounter
--- OUTSIDE RECORDS SUMMARY | 2025-01-09 15:48 | XMS_ITS | Encounter Summary ---
Author Organization [facility] Address [address] [place] [address] Care Team Providers Care Driller Multiple Spindle Name Role Phone Link, Baljit PRETTY Primary Care Provider [phone] Encounter Details Date Type Department Care Team (Late Contact Info) Description 09/29/2024 Abstract N[facility]elia BARRER[facility] [place] [address] Marco A Greene DO [facility] [address] [place], [place] [address] Social History Tobacco Use Types Packs/Day Years [...] 2:30 PM EDT Routine NOMEmelia BARRERA [address] [place] [address] Marco A Greene DO [address] [place], [facility]11 03/14/2025 11:00 AM EST Office Visit [facility] Erlinda B[facility]ERA [address] [place] [address] Marco A Greene DO [address] [facility] [address] [place], [place] [address] documented as of this encounter Visit Diagnoses Not on filedocumented in this encounter Care Teams Driller Multiple Spindle Relationship Specialty Start Date End Date Link, MD Baljit PCP - General Family Medicine 10/20/22 documented as of this encounter
--- OUTSIDE RECORDS SUMMARY | 2025-01-09 15:48 | XMS_ITS | Encounter Summary ---
Author Organization [facility] Address [address] [place] [address] Care Team Providers Care Special Services Coordinator Name Role Phone Link, Baljit Gilbert DO Primary Care Provider [phone] Source Comments In the event this information is protected by the Federal Confidentiality of Alcohol and Drug AbusePatient Records regulations: The Federal rules restrict any use of the information to criminally investigate or prosecute any alcohol or drug abuse patient.[facility] Encounter Details Date Type Department Care Team (Late st Contact Info) Description 11/14/2021 Get Medical Advice Ophthalmology [address] [place] [address] Elmer Sheets, OD [address] [facility] [address] Appointment Social History Tobacco Use [...] on filedocumented in this encounter Care Teams Special Services Coordinator Relationship Specialty Start Date End Date Link, Baljit Gilbert DO [address] [place] [address] PCP - General Family Medicine 11/07/21 documented as of this encounter
--- OUTSIDE RECORDS SUMMARY | 2025-01-09 15:48 | XMS_ITS | Encounter Summary ---
Author Organization [facility] Address [address] [place] [address] Care Team Providers Care Silviculture Teacher Name Role Phone Link, Baljit PRETTY Primary Care Provider [phone] Encounter Details Date Type Department Care Team (Late Contact Info) Description 08/16/2024 Abstract NOMEmelia BARRERA [facility] [place] [address] Marco A Greene DO [facility] [address] [place], [place] [address] Social History Tobacco Use Types Packs/Day Years [...] EDT Routine NOMEmelia BARRERA [address] [place] [address] Marco A Greene DO [address] [place], [facility]11 03/14/2025 11:00 AM EST Office Visit [facility] Erlinda BARRERA [address] [facility] [place] [address] Marco A Greene DO [address] [facility] [address] [place], [place] [address] documented as of this encounter Visit Diagnoses Not on filedocumented in this encounter Care Teams Silviculture Teacher Relationship Specialty Start Date End Date Link, MD Baljit PCP - General Family Medicine 10/20/22 documented as of this encounter
--- OUTSIDE RECORDS SUMMARY | 2025-01-09 15:48 | XMS_ITS | Encounter Summary ---
Author Organization [facility] Address [address] [place] [address] Care Team Providers Care Practice Performance Manager Name Role Phone Link, Baljit PRETTY Primary Care Provider [phone] Encounter Details Date Type Department Care Team (Late st Contact Info) Description 09/26/2022 Clinisync Result Encounter NOMS External Department Unsolicited Marco A Greene, DO [address] [place], [facility]11 Social History Tobacco Use Types [...] 01/11/2025 2:30 PM EDT Routine NOMEmelia BARRERA [facility] [place] [address] Marco A Greene DO [address] [place], [facility]11 03/14/2025 11:00 AM EST Office Visit LON BARRERA [address] [place] [address] Marco A Greene DO [address] [place] [address] documented as of this encounter Procedures Procedure [...] gestational sac with a live fetus - [place] rump length is consistent with given OTF [...] Extended Nasal bone: present Anatomy Heart: Normal [place] and S[place]. Stomach: Visible, with correct situs. [...] gestational sac with a live fetus - [place] rump length is consistent with given OTF [...] Extended Nasal bone: present Anatomy Heart: Normal [place] and S[place]. Stomach: Visible, with correct situs. [...] on filedocumented in this encounter Care Teams Practice Performance Manager Relationship Specialty Start Date End Date Link, MD Baljit PCP - General Family Medicine 10/20/22 documented as of this encounter
--- OUTSIDE RECORDS SUMMARY | 2025-01-09 15:48 | XMS_ITS | Encounter Summary ---
Author Organization [facility] Address [address] [place] [address] Care Team Providers Care Debrander Name Role Phone Link, Baljit Gilbert DO Primary Care Provider [phone] Source Comments In the event this information is protected by the Federal Confidentiality of Alcohol and Drug AbusePatient Records regulations: The Federal rules restrict any use of the information to criminally investigate or prosecute any alcohol or drug abuse patient.[facility] Encounter Details Date Type Department Care Team (Late st Contact Info) Description 11/09/2021 Get Medical Advice Ophthalmology [address] [place] [address] Elmer Sheets, OD [address] [facility] [place] [address] Eyes Social History Tobacco Use [...] on filedocumented in this encounter Care Teams Debrander Relationship Specialty Start Date End Date Link, Baljit Gilbert DO [address] [place] [address] PCP - General Family Medicine 11/07/21 documented as of this encounter
--- OUTSIDE RECORDS SUMMARY | 2025-01-09 15:48 | XMS_ITS | Encounter Summary ---
Author Organization [facility] Address [address] [place] [address] Care Team Providers Care Termite Technician Name Role Phone Link, Baljit PRETTY Primary Care Provider [phone] Encounter Details Date Type Department Care Team (Late Contact Info) Description 11/14/2022 Abstract NOMEmelia BARRERA [address] [place] [address] Simona Currie PA [facility] [address] [place], [place] [address] Social History Tobacco Use Types Packs/Day Years [...] Department Care Team (Late Contact Info) Description 01/11/2025 2:30 PM EDT Routine NOMEmelia BARRERA [address] [facility] [facility] [place] [address] Marco A Greene DO [address] [facility] [place] [address] 03/14/2025 11:00 AM EST Office Visit [facility] Erlinda BARRERA [address] [facility] [place] [address] Marco A Greene, [address] [facility] [address] [place], [place] [address] documented as of this encounter Visit Diagnoses Not on filedocumented in this encounter Care Teams Termite Technician Relationship Specialty Start Date End Date Link, MD Baljit PCP - General Family Medicine 10/20/22 documented as of this encounter
--- OUTSIDE RECORDS SUMMARY | 2025-01-09 15:48 | XMS_ITS | Encounter Summary ---
Author Organization [facility] Address [address] [place] [address] Care Team Providers Care Cloth Worker Name Role Phone Link, Baljit PRETTY Primary Care Provider [phone] Encounter Details Date Type Department Care Team (Late st Contact Info) Description 01/12/2023 Clinisync Result Encounter NOMS External Department Unsolicited Marco A Greene DO [address] [place], [facility]11 Social History Tobacco Use Types Packs/Day Years [...] Info) Description 01/11/2025 2:30 PM EDT Routine [facility] [address] [place] [address] Marco A Greene DO [address] [place] [address] 03/14/2025 11:00 AM EST Office Visit [facility] [address] [facility] [address] Marco A Greene DO [address] [facility] [place] [address] documented as of this encounter Procedures Procedure Name Priority Date/Time Associated Diagnosis Comments US OB CERVICAL LENGTH 01/12/2023 4:57 PM EDT documented in this encounter Results * US OB CERVICAL LENGTH (01/12/2023 4:57 PM EDT) Anatomical Region Laterality Modality Other 01/12/2023 4:57 PM EDT Narrative 01/12/2023 4:57 [place] [address] Ultrasound Report Signed Patient: ANAND HERRERA MR#: [id number] : 2000 Acct:[id number] Age/Sex: 22 / F ADM Date: 01/12/23 Loc: US Attending Dr: Marco A Greene D.O. Ordering Physician: Marco A Greene D.O. Date of Service: 01/12/23 Procedure(s): US OB cervical length Accession Number(s): [id number] cc: Marco A Greene D.O. The [place] [id number] Patient Name: ANAND HERRERA MRN: [id number] date: 2000 Sex: F Assigned Patient Location: US Current Patient Location: US Accession/Order Number: [id number] Exam Date: 01/12/2023 08:35 Report Date: 01/12/2023 [...] M.D. Signed By: 01/12/231699 DD/ 56 TD/TT: Reinforcing Steel Placer: Procedure Note Radiology, Radiologist, MD - 01/16/2023 [place] [address] Ultrasound Report Signed Patient: ANAND HERRERA EMR#: [id number] : 2000Acct:[id number] Age/Sex: 22 FADM Date: 01/12/23 Loc: US Attending Dr: Marco A Greene D.O. Ordering Physician: Marco A Greene D.O. Date of Service: 01/12/23 Procedure(s): US OB cervical length Accession Number(s): [id number] cc: Marco A Greene D.O. The [place] [address] Patient Name: ANAND HERRERA MRN: [id number] date: 2000 Sex: F Assigned Patient Location: Current Patient Location: Accession/Order Number: [id number] Exam Date: 01/12/2023 08:35 Report Date: 01/12/2023 [...] Nicole M.D. Signed By:01/12/231699 DD/ 56 TD/TT: Reinforcing Steel Placer: us Marco A Greene DO [facility] Final Result documented in this encounter Visit Diagnoses Not on filedocumented in this encounter Care Teams Cloth Worker Relationship Specialty Start Date End Date Link, MD Baljit PCP - General Family Medicine 10/20/22 documented as of this encounter
--- OUTSIDE RECORDS SUMMARY | 2025-01-09 15:48 | XMS_ITS | Encounter Summary ---
Author Organization [facility] Address [address] [place] [address] Care Team Providers Care Aircraft Maintenance Instructor Name Role Phone Link, Baljit Gilbert DO Primary Care Provider [phone] Source Comments In the event this information is protected by the Federal Confidentiality of Alcohol and Drug AbusePatient Records regulations: The Federal rules restrict any use of the information to criminally investigate or prosecute any alcohol or drug abuse patient.[facility] Encounter Details Date Type Department Care Team (Late st Contact Info) Description 11/18/2021 Get Medical Advice Ophthalmology [address] [address] [address] Elmer Sheets, OD [address] [facility] [place] [address] Tobradex Gel Social History Tobacco [...] on filedocumented in this encounter Care Teams Aircraft Maintenance Instructor Relationship Specialty Start Date End Date Link, Baljit Gilbert DO [address] [place] [address] PCP - General Family Medicine 11/07/21 documented as of this encounter
--- OUTSIDE RECORDS SUMMARY | 2025-01-09 15:48 | XMS_ITS | Encounter Summary ---
Author Organization [facility] Address [address] [place] [address] Care Team Providers Care Carrier Loader Name Role Phone Link, Baljit Gilbert DO Primary Care Provider [phone] Source Comments In the event this information is protected by the Federal Confidentiality of Alcohol and Drug AbusePatient Records regulations: The Federal rules restrict any use of the information to criminally investigate or prosecute any alcohol or drug abuse patient.[facility] Encounter Details Date Type Department Care Team (Late st Contact Info) Description 11/25/2021 Get Medical Advice Ophthalmology [address] [facility] [address] Elmer Sheets, OD [address] [facility] [place] [address] Eye drops Social History Tobacco [...] on filedocumented in this encounter Care Teams Carrier Loader Relationship Specialty Start Date End Date Link, Baljit Gilbert DO [address] [facility] [place] [address] PCP - General Family Medicine 11/07/21 documented as of this encounter
--- OUTSIDE RECORDS SUMMARY | 2025-01-09 15:48 | XMS_ITS | Encounter Summary ---
Author Organization [facility] Address [address] [place] [address] Care Team Providers Care Gate Keeper Name Role Phone Link, Baljit PRETTY Primary Care Provider [phone] Encounter Details Date Type Department Care Team (Late Contact Info) Description 01/04/2025 Bamboo flowsheet [facility]OM[facility] Erlinda BARRERA [address] [place] [address] Simona Currie PA [address] [facility] [address] [place], [place] [address] Social History Tobacco Use Types Packs/Day Years [...] 01/11/2025 2:30 PM EDT Routine NOMS Erlinda BARRERA [address] [facility] [place] [address] Marco A Greene DO [address] [facility] [address] [place], [facility]33 03/14/2025 11:00 AM EST Office Visit NOMS Erlinda BARRREA [address] [facility] [place] [address] Marco A Greene DO [address] [facility] [address] [place], [place] [address] documented as of this encounter Visit Diagnoses Not on filedocumented in this encounter Care Teams Gate Keeper Relationship Specialty Start Date End Date Link, MD Baljit PCP - General Family Medicine 10/20/22 documented as of this encounter
--- OUTSIDE RECORDS SUMMARY | 2025-01-09 15:48 | XMS_ITS | Clinical Summary ---
Author Organization [facility] Address [address] [place] [address] Care Team Providers Care Continuous Improvement Coordinator Name Role Phone Link, Baljit Gilbert Primary Care Provider [phone] Allergies No known active allergies Medications predniSONE [...] HPV Vaccine Completed 06/21/2012, 01/25, 12/08/2011 Insurance [place] [employer] Care Teams Continuous Improvement Coordinator Relationship Specialty Start Date End Date Link, Baljit Gilbert DO [address] [place] [address] PCP - General Family Medicine 11/07/21
--- OUTSIDE RECORDS SUMMARY | 2025-01-09 15:48 | XMS_ITS | Encounter Summary ---
Author Organization [facility] Address [address] [place] [address] Care Team Providers Care Field Specialist Name Role Phone Link, Baljit PRETTY Primary Care Provider [phone] Encounter Details Date Type Department Care Team (Late st Contact Info) Description 02/09/2023 Clinisync Result Encounter NOMS External Department Unsolicited Marco A Greene DO [address] [place], [facility]11 Social History Tobacco Use Types Packs/Day [...] PM EDT Routine [facility]BGYN [address] [place] [address] Marco A Greene DO [address] [place] [address] 03/14/2025 11:00 AM EST Office Visit [facility] [address] [facility] [place] [address] Marco A Greene DO [address] [facility] [place] [address] documented as of this encounter Procedures Procedure Name Priority Date/Time Associated Diagnosis Comments US OB GROWTH 02/09/2023 4:38 PM EDT documented in this encounter Results * US OB GROWTH (02/09/2023 4:38 PM EDT) Anatomical Region Laterality Modality Other 02/09/2023 4:38 PM EDT Narrative 02/09/2023 4:38 PM EDT [address] [address] Ultrasound Report Signed Patient: ANAND HERRERA MR#: [id number] : 2000 Acct:[id number] Age/Sex: 22 / F ADM Date: 02/09/23 Loc: US Attending Dr: Marco A Greene D.O. Ordering Physician: Marco A Greene D.O. Date of Service: 02/09/23 Procedure(s): US OB growth Accession Number(s): [id number] cc: Marco A Greene D.O. The [address] [address] Patient Name: ANAND HERRERA MRN: [id number] date: 2000 Sex: F Assigned Patient Location: US Current Patient Location: US Accession/Order Number: [id number] Exam Date: 02/09/2023 13:00 Report Date: 02/09/2023 [...] Signed By: 02/09/23 1640 DD/ 1638 TD/TT: Electrician Sound: Procedure Note Radiology, Radiologist, MD - 02/09/2023 The [place] [id number] Ultrasound Report Signed Patient: ANAND HERRERA EMR#: [id number] : 2000Acct:[id number] Age/Sex: 22 / FADM Date: 02/09/23 Loc: US Attending Dr: Marco A Greene D.O. Ordering Physician: Marco A Greene D.O. Date of Service: 02/09/23 Procedure(s): US OB growth Accession Number(s): [id number] cc: Marco A Greene D.O. The [address] [address] Patient Name: ANAND HERRERA MRN: [id number] date: 2000 Sex: F Assigned Patient Location: US Current Patient Location: US Accession/Order Number: [id number] Exam Date: 02/09/2023 13:00 Report Date: 02/09/2023 [...] M.D. Signed By:02/09/23 1640 DD/ 1638 TD/TT: Electrician Sound: us Marco A Greene DO [facility] Final Result documented in this encounter Visit Diagnoses Not on filedocumented in this encounter Care Teams Field Specialist Relationship Specialty Start Date End Date Baljit Watts MD PCP - General Family Medicine 10/20/22 documented as of this encounter
--- OUTSIDE RECORDS SUMMARY | 2025-01-09 15:48 | XMS_ITS | Encounter Summary ---
Author Organization [facility] Address [address] [place] [address] Care Team Providers Care Subcontracts Manager Name Role Phone Link, Baljit PRETTY Primary Care Provider [phone] Encounter Details Date Type Department Care Team (Late st Contact Info) Description 11/30/2024 Abstract [facility] [address] [place] [address] Simona Woods, SHARON [address] [place] [address] Social History Tobacco Use Types Packs/Day Years [...] PM EDT Routine [facility] [address] [facility] [place] [address] Marco A Greene DO [address] [place], [place] [address] 03/14/2025 11:00 AM EST Office Visit [facility] Erlinda BARRERA [address] [facility] [place] [address] Marco A Greene DO [address] [facility] [place] [address] documented as of this encounter Visit Diagnoses Not on filedocumented in this encounter Care Teams Subcontracts Manager Relationship Specialty Start Date End Date Link, MD Baljit PCP - General Family Medicine 10/20/22 documented as of this encounter
--- OUTSIDE RECORDS SUMMARY | 2025-01-09 15:48 | XMS_ITS | Encounter Summary ---
Author Organization [facility] Address [address] [place] [address] Care Team Providers Care Director Smb Sales Name Role Phone Link, Baljit PRETTY Primary Care Provider [phone] Encounter Details Date Type Department Care Team (Late st Contact Info) Description 03/10/2023 Clinisync Result Encounter NOM[facility] External Department Unsolicited Marco A Greene DO [address], [facility]11 Social History Tobacco Use Types Packs/Day Years [...] Routine [facility] [address] [place] [address] Marco A Greene DO [address], [place] [id number] 03/14/2025 11:00 AM EST Office Visit [facility] [address] [facility] [place] [address] Marco A Greene, [address] [facility] [place] [address] documented as of this encounter Procedures Procedure [...] EST Narrative 03/10/2023 10:23 AM EST The [address] [address] Ultrasound Report Signed Patient: ANAND HERRERA MR#: [id number] : 2000 Acct:[id number] Age/Sex: 22 / F ADM Date: Loc: [facility] Attending Dr: Anita Graves M.D. Ordering Physician: Marco A Greene D.O. Date of Service: 03/10/23 Procedure(s): US OB BPP wo non-stress Accession Number(s): [id number] cc: Marco A Greene D.O.; Physician,Non-Staff Lane[place] The [address] [id number] Patient Name: ANAND HERRERA MRN: [facility]:[id number] date: 2000 Sex: F Assigned Patient Location: [facility] Current Patient Location: [facility] Accession/Order Number: [id number] Exam Date: 03/10/2023 08:45 Report Date: 03/10/2023 [...] Signed By: 03/10/23 1026 DD/ 1023 TD/TT: Sizing Machine Tender: Procedure Note Radiology, Radiologist, MD - 03/10/2023 [place] [address] Ultrasound Report Signed Patient: ANAND HERRERA EMR#: [id number] : 2000Acct:[id number] Age/Sex: 22 / FADM Date: Loc: [facility] Attending Dr: Anita Graves M.D. Ordering Physician: Marco A Greene D.O. Date of Service: 03/10/23 Procedure(s): US OB BPP wo non-stress Accession Number(s): [id number] cc: Marco A Greene D.O.; Physician,Non-Staff [place] [address] Patient Name: ANAND HERRERA MRN: [facility]:[id number] date: 2000 Sex: F Assigned Patient Location: [facility] Current Patient Location: [facility] Accession/Order Number: [id number] Exam Date: 03/10/2023 08:45 Report Date: 03/10/2023 [...] M.D. Signed By:03/10/23 1026 DD/ 1023 TD/TT: Sizing Machine Tender: Marco A Greene DO [facility] Final Result documented in this encounter Visit Diagnoses Not on filedocumented in this encounter Care Teams Director Smb Sales Relationship Specialty Start Date End Date Link, MD Baljit PCP - General Family Medicine 10/20/22 documented as of this encounter
--- OUTSIDE RECORDS SUMMARY | 2025-01-09 15:48 | XMS_ITS | Encounter Summary ---
Author Organization [facility] Address [address] [place] [address] Care Team Providers Care Exploitation Analyst Name Role Phone Link, Baljit PRETTY Primary Care Provider [phone] Encounter Details Date Type Department Care Team (Late st Contact Info) Description 11/10/2022 Clinisync Result Encounter NOMS External Department Unsolicited Marco A Greene DO [address], [facility]11 Social History Tobacco Use Types [...] PM EDT Routine [facility] [address] [place] [phone] Marco A Greene DO [address] [place] [address] 03/14/2025 11:00 AM EST Office Visit [facility] [address] [facility] [address] [phone] Marco A Greene DO [address] [facility] [place] [address] documented as of this encounter Procedures Procedure [...] EFW (oz) 10 oz EFW by: Hadlock ([id number]) Extended Geological Technical Officer 7.6 mm CM 4.4 mm 35% Nicolaides [...] Normal LVOT view: Normal 3-vessel view: Normal 0-oykhte-gbaoxsn view: Normal Heart / Thorax Situs: situs [...] EFW (oz) 10 oz EFW by: Hadlock ([id number]) Extended Geological Technical Officer 7.6 mm CM 4.4 mm 35% Nicolaides [...] Normal LVOT view: Normal 3-vessel view: Normal 5-rfbjvo-bkaahbh view: Normal Heart / Thorax Situs: situs [...] on filedocumented in this encounter Care Teams Exploitation Analyst Relationship Specialty Start Date End Date Link, MD Baljit PCP - General Family Medicine 10/20/22 documented as of this encounter
--- OUTSIDE RECORDS SUMMARY | 2025-01-09 15:48 | XMS_ITS | Encounter Summary ---
Author Organization [facility] Address [address] [place] [address] Care Team Providers Care Jawbone Puller Name Role Phone Link, Baljit Gilbert DO Primary Care Provider [phone] Source Comments In the event this information is protected by the Federal Confidentiality of Alcohol and Drug AbusePatient Records regulations: The Federal rules restrict any use of the information to criminally investigate or prosecute any alcohol or drug abuse patient.[facility] Encounter Details Date Type Department Care Team (Late st Contact Info) Description 11/20/2021 Get Medical Advice Ophthalmology [address] [address] Elmer Sheets, OD [address] [facility] [place] [address] Eye drops Social History Tobacco [...] on filedocumented in this encounter Care Teams Jawbone Puller Relationship Specialty Start Date End Date Link, Baljit Gilbert DO [address] [facility] [place] [phone] PCP - General Family Medicine 11/07/21 documented as of this encounter
--- OUTSIDE RECORDS SUMMARY | 2025-01-09 15:48 | XMS_ITS | Encounter Summary ---
Author Organization [facility] Address [address] [place] [address] Care Team Providers Care Employee Communications Coordinator Name Role Phone Link, Baljit PRETTY Primary Care Provider [phone] Encounter Details Date Type Department Care Team (Late Contact Info) Description 03/16/2023 Abstract NOMEmelia BARRERA [address] [place] [address] Lisa Gleason LPN [address] [place] [address] Social History Tobacco Use Types Packs/Day Years [...] 2:30 PM EDT Routine [facility] [address] [place] [address] Marco A Greene DO [address] [facility] [place] [address] 03/14/2025 11:00 AM EST Office Visit [facility] Dario BARRERA [address] [facility] [place] [phone] Marco A Greene, [address] [facility] [address] [place], [place] [phone] documented as of this encounter Visit Diagnoses Not on filedocumented in this encounter Care Teams Employee Communications Coordinator Relationship Specialty Start Date End Date Link, MD Baljit PCP - General Family Medicine 10/20/22 documented as of this encounter
--- OUTSIDE RECORDS SUMMARY | 2025-01-09 15:48 | XMS_ITS | Patient Health Record ---
Author Organization [facility] [email or web address] [facility] Address [address] [place] [address] Care Team Providers Care Auditor Internal Name Role Phone Tanika Rosales Primary Care Provider [phone] Reason For Referral No Information Encounters Encounter Location Date Provider Diagnosis [facility] [address] [place] [address] 09/28/2024 Tanika Rosales Dental caries on pit [...] Date Dental Fink [employer] [address] [place] [address] [id number] ANAND PERALES Self - patient is the insured Dental Wrap [facility] Fink [address] [place] [address] [id number] ANAND PERALES Self - patient is the insured 5
--- OUTSIDE RECORDS SUMMARY | 2025-01-09 15:48 | XMS_ITS | Encounter Summary ---
Author Organization [facility] Address [address] [place] [address] Care Team Providers Care Transaction Processor Name Role Phone Link, Baljit Gilbert DO Primary Care Provider [phone] Source Comments In the event this information is protected by the Federal Confidentiality of Alcohol and Drug AbusePatient Records regulations: The Federal rules restrict any use of the information to criminally investigate or prosecute any alcohol or drug abuse patient.[facility] Encounter Details Date Type Department Care Team (Late st Contact Info) Description 11/15/2021 Get Medical Advice Ophthalmology [address] [place] [address] Elmer Sheets, OD [address] [facility] [place] [place] [address] Eyes Social History Tobacco Use [...] on filedocumented in this encounter Care Teams Transaction Processor Relationship Specialty Start Date End Date Link, Baljit Gilbert DO [address] [place] [address] PCP - General Family Medicine 11/07/21 documented as of this encounter
--- OUTSIDE RECORDS SUMMARY | 2025-01-09 15:48 | XMS_ITS | Encounter Summary ---
Author Organization [facility] Address [address] [place] [address] Care Team Providers Care Pension Administrator Name Role Phone Link, Baljit PRETTY Primary Care Provider [phone] Encounter Details Date Type Department Care Team (Late st Contact Info) Description 12/29/2024 Clinisync Result Encounter NOMS External Department Unsolicited Marco A Greene DO [address] [place] [address] Social History Tobacco Use Types Packs/Day Years [...] Routine [facility] [address] [place] [phone] Marco A Greene DO [address] [place] [address] 03/14/2025 11:00 AM EST Office Visit [facility] Erlinda DOMINGUEZGYVadim [address] [facility] [place] [address] Marco A Greene DO [address] [facility] [address] [place], [facility]11 documented as of this encounter Procedures Procedure Name Priority Date/Time Associated Diagnosis Comments US OB BPP W NON-STRESS 12/29/2024 7:37 PM EDT documented in this encounter Results * US OB BPP W NON-STRESS (12/29/2024 7:37 PM EDT) Anatomical Region Laterality Modality Other 12/29/2024 7:37 PM EDT Narrative 12/29/2024 7:40 [place] [address] Ultrasound Report Signed Patient: ANAND HERRERA MR#: [id number] : 2000 Acct:[id number] Age/Sex: 24 / F ADM Date: 12/29/24 Loc: US Attending Dr: Marco A Greene D.O. Ordering Physician: Marco A Greene D.O. Date of Service: 12/29/24 Procedure(s): US OB BPP w non-stress Accession Number(s): [id number] cc: Marco A Greene D.O.; Physician,Non-Staff M.D. The [address] [address] Patient Name: ANAND HERRERA MRN: [id number] date: 2000 Sex: F Assigned Patient Location: [facility] Current Patient Location: Accession/Order Number: [id number] Exam Date: 12/29/2024 17:15 Report Date: 12/29/2024 [...] Bo M.D. 12/29/2024 7:37 PM Dictation Location: [place] [address] Electronically authenticated by: [id number] Y Date: 12/29/2024 19:37 Dictated By: Charles Bo D.O. Signed By: 12/29/241939 DD/ 36 TD/TT: Tile Conduit Layer: Procedure Note Radiology, Radiologist, - 12/29/2024 [place] [address] Ultrasound Report Signed Patient: ANAND HERRERA EMR#: [id number] : 2000Acct:[id number] Age/Sex: 24 / FADM Date: 12/29/24 Loc: US Attending Dr: Marco A Greene D.O. Ordering Physician: Marco A Greene D.O. Date of Service: 12/29/24 Procedure(s): US OB BPP w non-stress Accession Number(s): [id number] cc: Marco A Greene D.O.; Physician,Non-Staff [place] The [address] [address] Patient Name: ANAND HERRERA MRN: [id number] date: 2000 Sex: F Assigned Patient Location: [facility] Current Patient Location: Accession/Order Number: [id number] Exam Date: 12/29/2024 17:15 Report Date: 12/29/2024 [...] Bo M.D. 12/29/2024 7:37 PM Dictation Location: [place] [address] Electronically authenticated by: [id number] Y Date: 9:37 Dictated By: Charles Bo D.O. Signed By:12/29/241939 DD/ 36 TD/TT: Tile Conduit Layer: us Marco A Jc DO [facility] Final Result documented in this encounter Visit Diagnoses Not on filedocumented in this encounter Care Teams Pension Administrator Relationship Specialty Start Date End Date Baljit Watts MD PCP - General Family Medicine 10/20/22 documented as of this encounter
--- OUTSIDE RECORDS SUMMARY | 2025-01-09 15:48 | XMS_ITS | Encounter Summary ---
Author Organization [facility] Address [address] [place] [place] [address] Care Team Providers Care Protection Specialist Name Role Phone Link, Baljit PRETTY Primary Care Provider [phone] Encounter Details Date Type Department Care Team (Late Contact Info) Description 03/17/2024 Orders Only [facility] [address] [facility] [place] [address] Lisa Gleason LPN [address] [place] [address] Social History Tobacco Use Types Packs/Day Years [...] PM EDT Routine [facility]inda [facility] [address] [facility] [place] [address] Marco A Greene DO [address] [place], [place] [address] 03/14/2025 11:00 AM EST Office Visit [facility] Er[facility]inda [facility]BG[facility] [address] [facility] [place] [address] Marco A Greene DO [address] [facility] [place] [address] documented as of this encounter Procedures Procedure [...] on filedocumented in this encounter Care Teams Protection Specialist Relationship Specialty Start Date End Date Link, MD Baljit PCP - General Family Medicine 10/20/22 documented as of this encounter
--- OUTSIDE RECORDS SUMMARY | 2025-01-09 15:48 | XMS_ITS | Encounter Summary ---
Author Organization [facility] Address [address] [place] [address] Care Team Providers Care Membership Correspondent Name Role Phone Link, Baljit PRETTY Primary Care Provider [phone] Encounter Details Date Type Department Care Team (Late st Contact Info) Description 03/13/2023 Clinisync Result Encounter NOMS External Department Unsolicited Marco A Greene DO [address], [facility]11 Social History Tobacco Use Types [...] Routine [facility] [address] [place] [address] Marco A Greene DO [address], [place] [address] 03/14/2025 11:00 AM EST Office Visit [facility] Erlinda DOMINGUEZGYN [address] [facility] [place] [address] Marco A Greene DO [address] [facility] [place] [address] documented as of this encounter Procedures Procedure Name Priority Date/Time Associated Diagnosis Comments US OB BPP W NON-STRESS 03/13/2023 8:47 AM EST documented in this encounter Results * US OB BPP W NON-STRESS (03/13/2023 8:47 AM EST) Anatomical Region Laterality Modality Other 03/13/2023 8:47 AM EST Narrative 03/13/2023 8:47 AM EST The [address] [address] Ultrasound Report Signed Patient: ANAND HERRERA MR#: [id number] : 2000 Acct:[id number] Age/Sex: 22 / F ADM Date: 03/13/23 Loc: [facility] [address]: Marco A Greene D.O. Ordering Physician: Marco A Greene D.O. Date of Service: 03/13/23 Procedure(s): US OB BPP w non-stress Accession Number(s): [id number] cc: Marco A Greene D.O.; Physician,Non-Staff M.DIrvin The [address] [address] Patient Name: ANAND HERRERA MRN: [id number] date: 2000 Sex: F Assigned Patient Location: [facility] Current Patient Location: [facility] Accession/Order Number: [id number] Exam Date: 03/13/2023 07:50 Report Date: 03/13/2023 [...] M.D. Signed By: 03/13/2349 DD/ 6 TD/TT: Director Of Speech Pathology: Procedure Note Radiology, Radiologist, - 03/13/2023 [place] [address] Ultrasound Report Signed Patient: ANAND HERRERA EMR#: [id number] : 2000Acct:[id number] Age/Sex: 22 / FADM Date: 03/13/23 Loc: [facility] 254-[address]: Marco A Greene D.O. Ordering Physician: Marco A Greene D.O. Date of Service: 03/13/23 Procedure(s): US OB BPP w non-stress Accession Number(s): [id number] cc: Marco A Greene D.O.; Physician,Non-Staff MLiborio The [place] [address] Patient Name: ANAND HERRERA MRN: [id number] date: 2000 Sex: F Assigned Patient Location: [facility] Current Patient Location: [facility] Accession/Order Number: [id number] Exam Date: 03/13/2023 07:50 Report Date: 03/13/2023 [...] Jess Nicole M.D. Signed By:03/13/2349 DD/ TD/TT: Director Of Speech Pathology: us Marco A Jc DO [facility] Final Result documented in this encounter Visit Diagnoses Not on filedocumented in this encounter Care Teams Membership Correspondent Relationship Specialty Start Date End Date Baljit Watts MD PCP - General Family Medicine 10/20/22 documented as of this encounter
--- OUTSIDE RECORDS SUMMARY | 2025-01-09 15:49 | XMS_ITS | Clinical Summary ---
Author Organization [facility] Address [address] [place] [address] Care Team Providers Care Forensic Analyst Name Role Phone Link, Baljit PRETTY Primary Care Provider [phone] Allergies No known active allergies Medications Vyvanse [...] weeks gestation 30 suppository 11/11/19 25 025 Active Problems Estimated Date of Delivery Comme nts Yes 02/08/2025 Based on last me nstrual period of 05/04/2024 No known active problems Encounters Date Type Department Care Team Description 01/04/2025 1:50 PM EDT Routine [facility] [address] [place] [id number] Simona Gunn PA Third trimester ([facility]); 35 weeks gestation of ([facility]) 01/04/2025 Bamboo flowsheet [facility] [address] [place] [address] Simona Gunn PA 12/29/2024 Clinisync Result Encounter [facility] External Department Unsolicited Silas Greene DO 12/22/2024 2:00 PM [place] [address] Simona Gunn PA Third trimester ([facility]); 33 weeks gestation of ([facility]); Amniotic band syndrome; History of miscarriage 12/22/2024 [place] [address] Simona Gunn PA 12/12/2024 11:00 AM EDT Ancillary [place] [address] Third trimester ([facility]); 31 weeks gestation of ([facility]); Screening, , for anatomic survey ([facility]) 12/08/2024 11:30 AM ED[place] [address] Silas Greene DO Third trimester ([facility]); 31 weeks gestation of ([facility]); Screening, , for anatomic survey ([facility]) 12/08/2024 11:00 AM EDT Ancillary [place] [address] Size of fetus inconsistent with dates in second trimester ([facility]) 12/08/2024 [place] [address] Rose Costello LPN 12/06/2024 Patient Outreach [facility] [place] [address] [place] [phone] Simona Woods LPN 11/30/2024 Abstract [facility] [address] [place] [address] Simona Woods LPN 11/29/2024 Telephone [facility] [address] [address] [place] [address] [place] [address] Silas Greene, 11/22/2024 11:40 AM EDT Routine [facility] Er[place] [address] Silas Greene, Size of fetus inconsistent with dates in second trimester ([facility]) (Primary Dx); Second trimester ([facility]); 28 weeks gestation of ([facility]); Mastitis 11/22/2024 BamSmarp Oyheet [facility] [place] [address] Silas Greene, 11/10/2024 Telephone [facility]inda [address] [address] [place] [address] [place] [address] Piedad Dewitt LPN 10/31/2024 Clinisync Result Encounter [facility]S External Department Unsolicited Simona Gunn PA 10/25/2024 2:30 PM EDT Routine [facility] [place] [address] Simona Gunn PA Second trimester ([facility]); 24 weeks gestation of ([facility]); HSV infection; H/O pre-eclampsia in prior , currently ([facility]); Diabetes mellitus screening; Encounter for anatomic survey ([facility]) 10/25/2024 Bamboo flowsheet [facility] Erlinda [facility] [address] [place] [address] [place] [address] Simona Gunn PA from Last 3 Months [...] 12 oz) 01/04/2025 1:14 PM EDT Height 167.6 cm (5' 6 ) 10/26/2023 1:10 PM EDT Body Mass Index 30.3 10/26/2023 1:10 PM EDT Plan of Treatment Upcoming Encounters Date Type Department Care Team (Late st Contact Info) Description 01/11/2025 2:30 PM EDT Routine [facility]ON [facility]ARRERA [address] [place], [place] [address] [address] Silas Greene DO [address] [place], [place] [id number] 03/14/2025 11:00 AM EST Office Visit [facility] [address] [place] [address] Silas Greene DO [address] [place], [place] [phone] Procedures Procedure Name Priority Date/Time Associated Diagnosis Comments POCT URINALYSIS DIPSTICK Routine 01/04/2025 1:32 PM EDT Third trimester ([facility]) US OB BPP W NON-STRESS 12/29/2024 7:37 PM EDT US OB 14+ WEEKS ANATOMY SCAN Routine 12/12/2024 11:50 AM EDT Third trimester ([facility]) 31 weeks gestation of ([facility]) Screening, , for anatomic survey ([facility]) US OB FOLLOW UP TRANSABDOMINAL APPROACH Routine 12/08/2024 11:16 AM EDT Size of fetus inconsistent with dates in second trimester ([facility]) POCT URINALYSIS DIPSTICK Routine 11/22/2024 12:01 PM EDT Second trimester ([facility]) 28 weeks gestation of ([facility]) ALL CBC WITH AUTO DIFF Routine 10:36 AM EDT GLUCOSE 1 HOUR Routine 10/31/2024 10:36 AM EDT US OB INCOMPLETE ANATOMY 10/31/2024 9:54 AM EDT POCT URINALYSIS DIPSTICK Routine 10/25/2024 2:39 PM EDT Second trimester ([facility]) from Last 3 Months Results * (ABNORMAL) POCT urinalysis dipstick manually resulted (01/04/2025 1:32 PM EDT) Only the most recent of3 [...] TEST ENTER/EDIT OR DERABLES Final Result * US OB BPP W NON-STRESS (12/29/2024 7:37 PM EDT) Anatomical Region Laterality Modality Other 12/29/2024 7:37 PM EDT Narrative 12/29/2024 7:40 [place] [address] Ultrasound Report Signed Patient: ANAND PERALES MR#: [id number] : 2000 Acct:[id number] Age/Sex: 24 / F ADM Date: 12/29/24 Loc: US Attending Dr: Silas Greene D.O. Ordering Physician: Silas Greene D.O. Date of Service: 12/29/24 Procedure(s): US OB BPP w non-stress Accession Number(s): [id number] cc: Silas Greene D.O.; Physician,Non-Staff [facility] [place] [id number] Patient Name: ANAND PERALES MRN: [id number] date: 2000 Sex: F Assigned Patient Location: [facility] Current Patient Location: Accession/Order Number: [id number] Exam Date: 12/29/2024 17:15 Report Date: 12/29/2024 [...] Bo M.D. 12/29/2024 7:37 PM Dictation Location: [place] [address] Electronically authenticated by: [id number] Y Date: 12/29/2024 19:37 Dictated By: Charles Bo D.O. Signed By: 12/29/241939 DD/ 36 TD/TT: Back Joiner: Procedure Note Radiology, Radiologist, MD - 12/29/2024 [place] [address] Ultrasound Report Signed Patient: ANAND PERALES EMR#: [id number] : 2000Acct:[id number] Age/Sex: 24 / FADM Date: 12/29/24 Loc: US Attending Dr: Silas Greene D.O. Ordering Physician: Silas Greene D.O. Date of Service: 12/29/24 Procedure(s): US OB BPP w non-stress Accession Number(s): [id number] cc: Silas Greene D.O.; Physician,Non-Staff [place] [facility] [place] [id number] Patient Name: ANAND PERALES MRN: [facility]:[id number] date: 2000 Sex: F Assigned Patient Location: [facility] Current Patient Location: Accession/Order Number: [id number] Exam Date: 12/29/2024 17:15 Report Date: 12/29/2024 [...] Bo M.D. 12/29/2024 7:37 PM Dictation Location: [place] [address] Electronically authenticated by: [id number] Y Date: 9:37 Dictated By: Charles Bo D.O. Signed By:12/29/241939 DD/ 36 TD/TT: Back Joiner: us Silas Jc DO [facility] Final Result * US [...] II, MD, PHD at 15-Dec-2024 08:04:22 AM [facility] Procedure Note Zac Martinez MD - [...] signed by ZAC MARTINEZ II, MD, PHD [id number] 08:04:22 AM [facility] us Silas Jc DO IMG OB US PROCEDURES Final [...] OB US PROCEDURES Final Resul t * GLUCOSE 1 HOUR (10/31/2024 10:36 AM EDT) GLUCOSE 1 HOUR 126 <130 mg/dL [facility] 10/31/2024 10:3 6 AM EDT 10/31/2024 10:38 AM EDT Narrative [facility] - 10/31/2024 10:56 AM EDT us Simona ROSS LAB BLOOD ORDERABLES Final Resul t [facility] * (ABNORMAL) ALL CBC WITH AUTO DIFF (10/31/2024 10:36 AM EDT) [facility] WBC 8.5 4.0 - 11.0 10 3/uL [facility] RBC 3.44(L) 4.20 - 5.40 10 6/uL [...] - 10/31/2024 11:03 AM EDT us Simona ROSS [facility]ISY[facility] Final Result [facility] * US OB INCOMPLETE ANATOMY (10/31/2024 9:54 AM EDT) Anatomical Region Laterality Modality Other 10/31/2024 9:54 AM EDT Narrative 10/31/2024 9:57 AM EDT The [address] [address] Ultrasound Report Signed Patient: ANAND PERALES MR#: [id number] : 2000 Acct:[id number] Age/Sex: 24 / F ADM Date: 10/31/24 Loc: US Attending Dr: Simona Gunn Ordering Physician: Simona Gunn Date of Service: 10/31/24 Procedure(s): US OB incomplete anatomy Accession Number(s): [id number] cc: Simona Gunn; Physician,Non-Staff ML[facility] The [address] [address] Patient Name: ANAND PERALES MRN: [id number] date: 2000 Sex: F Assigned Patient Location: US Current Patient Location: US Accession/Order Number: [id number] Exam Date: 10/31/2024 09:53 Report Date: 10/31/2024 [...] normal. The spine was surveyed by the volunteer recruitment coordinator and no abnormalities were reported. US/US OB incomplete anatomy IMPRESSION: UNREMARKABLE SPINE ASSESSMENT. Impression dictated by: Hillary Barth M.D. 10/31/2024 9:54 AM Dictation Location: [place] [address] Electronically authenticated by: [id number] Y Date: 10/31/2024 09:54 Dictated By: Hillary Barth M.D. Signed By: 10/31/24 0957 DD/ 0954 TD/TT: Back Joiner: Procedure Note Radiology, Radiologist, MD - 10/31/2024 The [place] [id number] Ultrasound Report Signed Patient: ANAND PERALES EMR#: [id number] : 2000Acct:[id number] Age/Sex: 24 / FADM Date: 10/31/24 Loc: US Attending Dr: Simona Gunn Ordering Physician: Simona Gunn Date of Service: 10/31/24 Procedure(s): US OB incomplete anatomy Accession Number(s): [id number] cc: Simona Gunn; Physician,Non-Staff [place] [id number] Patient Name: ANAND PERALES MRN: [id number] date: 2000 Sex: F Assigned Patient Location: US Current Patient Location: US Accession/Order Number: [id number] Exam Date: 10/31/2024 09:53 Report Date: 10/31/2024 [...] subjectively normal. Thespine was surveyed by the volunteer recruitment coordinator and no abnormalities were reported. US/US OB incomplete anatomy IMPRESSION: UNREMARKABLE SPINE ASSESSMENT. Impression dictated by: Hillary Barth M.D. 10/31/2024 9:54 AM Dictation Location: [place] [address] Electronically authenticated by: [id number] Y Date: 9:54 Dictated By: Hillary Barth M.D. Signed By:10/31/24 0957 DD/ 0954 TD/TT: Back Joiner: us Simona ROSS [facility] Final Result from Last 3 Months Insurance [employer] Care Teams Forensic Analyst Relationship Specialty Start Date End Date Mac, MD Baljit PCP - General Family Medicine 10/20/22
--- OUTSIDE RECORDS SUMMARY | 2025-01-09 15:49 | XMS_ITS | Encounter Summary ---
Author Organization [facility] Address [facility] [place] [address] Care Team Providers Care Correspondence Representative Name Role Phone Unavailable Primary Care Provider Unavailabl e Encounter Details Date Type Department Care Team ([facility] st Contact Info) Description 04/25/2020 Scanned Document [facility] Mother Baby [address] [place] [phone] Provider, Legacy Conversion Social History Tobacco Use [...]
--- OUTSIDE RECORDS SUMMARY | 2025-01-09 15:49 | XMS_ITS | Clinical Summary ---
Author Organization [facility] Address [address], [address] [place] [address] Care Team Providers Care Sprinkler Installer Name Role Phone Unavailable Primary Care Provider [...]
--- OUTSIDE RECORDS SUMMARY | 2025-01-09 15:49 | XMS_ITS | Clinical Summary ---
Author Organization [facility] Address [address] [place] [address] Phone Care Team Providers Care Guide Rail Cleaner Name Role Phone Unavailable Primary Care Provider Unavailabl e Allergies No known active allergies Medications [id number] c acid (PreNata) 29 mg iron- 1 [...] patient's age to complete this topic Insurance [facility]
--- OUTSIDE RECORDS SUMMARY | 2025-01-09 15:49 | XMS_ITS | Clinical Summary ---
Author Organization [facility] Address [address] [place] [address] Care Team Providers Care Crop Adjuster Name Role Phone Unavailable Primary Care Provider [...]
[2025-01-09 15:54] VITALS: BP 119/68; PULSE 98
--- OUTSIDE RECORDS SUMMARY | 2025-01-09 18:54 | XMS_ITS | CCD ---
Author Organization [facility] Care Team Providers Care Wallpaperer Helper Name Role Phone Unavailable Primary Care Provider UnavailBaljit Luna Primary Care Physician [phone] Baljit Watts MD Primary Care Provider JC ., DR ROSEN Admitting Unavailable JC ., DR ROSEN Attending Unavailable JC ., DR ROSEN Consulting Unavailable ZieberBillie Consulting Unavailable REQUEST, DR MCGUIRE LISTED Consulting Unavaila ble JC ., DR ROSEN Consulting Unavailable JC ., DR ROSEN Admitting Unavailable MISC, DR WOOD Primary Care Unavailable JC ., DR ROSEN Attending Unavailable CAPE MAY POINTKELL Attending Unavailable Jc, Dr. Marco A Zavaleta Referring Unavail able UNKNOWN, PCP Primary Care Unavailable UNKNOWN, PCP Primary Care Unavailable Jc, Dr. Marco A Zavaleta Referring Unavail able Dr. Jess Feldman Attending Unav ailable Baljit Watts MD Primary Care Provider Kathy Mccall Primary Care Physician Amos Espinoza Attending Unavailable Baljit Watts MD Primary Care Provider [phone] Unavailable Primary Care Provider Unavailjoão e MARCO A GREENE Attending Unavailable CJMARCO A COCHRAN Attending Unavailable MARCO A GREENE Attending Unavailable MARCO A GREENE Attending Unavailable MARCO A GREENE Attending Unavailable SIMONA CURRIE Attending Unavailable JCMARCO A Attending Unavailable JCMARCO A COCHRAN Attending Unavailable SIMONA CURRIE Attending Unavailable SIMONA CURRIE Attending Unavailable Medications [...] day(s), # 20 tab(s), Refills(s) 0, Pharmacy: [facility]/pharmacy #[id number], 164, cm, 10/14/22 12:30:00 EDT, Height/Length Dosing, 66, kg, 10/14/22 12:30:00 EDT, Weight Dosing Start Date: 10/14/22 Stop Date: 10/24/22 Status: Ordered Start: 10-31-2021 take 1 capsule by [facility] every twelve hours amoxicillin 500 mg Cap 500 mg = 1 cap(s), Oral, q12hr, # 20 cap(s), Refills(s) 0, Pharmacy: [facility]/pharmacy #[id number], 165, cm, 10/31/21 [...] break. ferrous sulfate 325 mg oral tablet (20 sources) Start: 04-28-2020 take 1 tablet by [...] tablet 3 04/29/2020 Active Start: 04-26-2020 NIFEdipine (VT OCARDIA XL) extended release tablet 30 mg [...] Date: 01/31/23 Status: Ordered polyethylene glycol 3350 19503 mg powder for oral solution (1 source) [...] mouth daily 30 tablet 0 04/28/2020 Active req60-vqbh-dccdy acid (PreNata) 29 mg iron- 1 mg tablet,chewable (1 source) vbx56-ttxv-ipxpx acid (PreNata) 29 mg iron- 1 mg tablet,chewable Chew 1 tablet once daily. Active vitamin 27-1 MG tablet 1 tablet (1 source) Start: 04-26-2020 take 1 tablet by mouth once daily 1 tablet, Oral, DAILY, First dose on Vilma 04/26/20 at 0900 Begin when normal bowel activity resumes. Progesterone 200 MG suppository (20 sources) Start: 12-22-2024 End: 01-21-2025 Progesterone 200 [...] for 10 day(s), 20 tab(s), Refill(s) 0, [facility]/pharmacy #[id number], 165, cm, 10/31/21 [...] day(s), # 15 tab(s), Refills(s) 0, Pharmacy: [facility]/pharmacy #[id number], 165, cm, 11/01/21 [...] 08-29-2024 Episodic Other and delivery including normal (19 sources) Encounter for supervision of other normal [...] [33 weeks gestation of ] 12-22-2024 Episodic Residual codes; unclassified (2 sources) Gestation period, 35 weeks; Translations: [35 weeks gestation of ] 01-04-2025 Episodic Superficial injury; contusion (2 sources) Contusion [...] Test Name Value Interpretation Reference Range Facility Urinalysis macro (dipstick) panel (U)on 01-04-2025 Bilirubin, UA Negative Negative - 4(70) +++ mg/dL [facility] Blood, UA Positive Negative - 50 Gabriel/mcL [facility] Comment on above: 1+ Clarity, UA Clear [facility] Color, UA Yellow [facility] Glucose, UA Negative Negative - 2000(110) ++++ mg/dL [facility] Interpretation and review of laboratory results Abnormal [facility] Ketones, UA Negative Negative - 160(16) ++++ mg/dL [facility] Leukocytes, UA Negative Negative - 500+++ Sebastián/mcL [facility] Nitrite, UA Negative Negative - Positive [facility] pH, UA 7.5 5 - 9 [facility] Protein, UA Negative Negative - 1999(20) ++++ mg/dL [facility] Spec Grav, UA 1.005 1 - 1.03 [facility] Urobilinogen, UA 0.2 0.2 - 12 mg/dL [facility] US OB BPP W NON-STRESS on 12-29-2024 [place] [address] Ultrasound Report Signed Patient: ANAND HERRERA MR#: [id number] : 2000 Acct:[id number] Age/Sex: 24 / F ADM Date: 12/29/24 Loc: US Attending Dr: Marco A Greene D.O. Ordering Physician: Marco A Greene D.O. Date of Service: 12/29/24 Procedure(s): US OB BPP w non-stress Accession Number(s): [id number] cc: Marco A Greene D.O.; Physician,Non-Staff [place] [address] Patient Name: ANAND HERRERA MRN: [id number] date: 2000 Sex: F Assigned Patient Location: [facility] Current Patient Location: Accession/Order Number: [id number] Exam Date: 12/29/2024 17:15 Report Date: 12/29/2024 [...] Bo M.D. 12/29/2024 7:37 PM Dictation Location: [place] [address] Electronically authenticated by: [id number] Y Date: 12/29/2024 19:37 Dictated By: Charles Bo D.O. Signed By: 12/29/241939 DD/ 36 TD/TT: Ad Operations Intern: [facility] Radiology, Radiologist, - 12/29/2024 [place] [id number] Ultrasound Report Signed Patient: ANAND HERRERA MR#: [id number] : 2000 Acct:[id number] Age/Sex: 24 / F ADM Date: 12/29/24 Loc: US Attending Dr: Marco A Greene D.O. Ordering Physician: Marco A Greene D.O. Date of Service: 12/29/24 Procedure(s): US OB BPP w non-stress Accession Number(s): [id number] cc: Marco A Greene D.O.; Physician,Non-Staff [place] [id number] Patient Name: ANAND HERRERA MRN: [facility]:[id number] date: 2000 Sex: F Assigned Patient Location: [facility] Current Patient Location: Accession/Order Number: [id number] Exam Date: 12/29/2024 17:15 Report Date: 12/29/2024 [...] Bo M.D. 12/29/2024 7:37 PM Dictation Location: [employer] Electronically authenticated by: [id number] Y Date: 12/29/2024 19:37 Dictated By: Charles Bo D.O. Signed By: 12/29/241939 DD/ 36 TD/TT: Ad Operations Intern: [facility] Radiology Study observation (narrative) [facility] OB BPP W NON-STRESS Ordered By: Radiologist Radiology on 12-29-2024 [facility] Work Phone: US OB 14+ WEEKS ANATOMY SCAN on [...] II, MD, PHD at 15-Dec-2024 08:04:22 AM [facility] Normal Not Available Comment on above: [...] UA Negative Negative - 4(70) +++ mg/dL [facility] Blood, UA Negative Negative - 50 Gabriel/mcL [facility] Clarity, UA Clear [facility] Color, UA Yellow [facility] Glucose, UA Negative Negative - 2000(110) ++++ mg/dL [facility] Interpretation and review of laboratory results Normal [facility] Ketones, UA Negative Negative - 160(16) ++++ mg/dL [facility] Leukocytes, UA Negative Negative - 500+++ Sebastián/mcL [facility] Nitrite, UA Negative Negative - Positive [facility] pH, UA 6.5 5 - 9 [facility] Protein, UA Negative Negative - 1999(20) ++++ mg/dL [facility] Spec Grav, UA 1.005 1 - 1.03 [facility] Urobilinogen, UA 1.0 0.2 - 12 mg/dL [facility] US OB INCOMPLETE ANATOMYon 0 10-31-2024 [place] [address] Ultrasound Report Signed Patient: ANAND HERRERA MR#: [id number] : 2000 Acct:[id number] Age/Sex: 24 / F ADM Date: 10/31/24 Loc: US Attending Dr: Simona Currie Ordering Physician: Simona Currie Date of Service: 10/31/24 Procedure(s): US OB incomplete anatomy Accession Number(s): [id number] cc: Simona Currie; Physician,Non-Staff [place] [address] Patient Name: ANAND HERRERA MRN: [id number] date: 2000 Sex: F Assigned Patient Location: Current Patient Location: Accession/Order Number: [id number] Exam Date: 10/31/2024 09:53 Report Date: 10/31/2024 [...] normal. The spine was surveyed by the construction quality control manager and no abnormalities were reported. US/US OB incomplete anatomy IMPRESSION: UNREMARKABLE SPINE ASSESSMENT. Impression dictated by: Hillary Barth M.D. 10/31/2024 9:54 AM Dictation Location: [place] [address] Electronically authenticated by: [id number] Y Date: 10/31/2024 09:54 Dictated By: Hillary Barth M.D. Signed By: 10/31/24 0957 DD/ TD/TT: Ad Operations Intern: [facility] Radiology, Radiologist, - 10/31/2024 [facility] [place] [id number] Ultrasound Report Signed Patient: ANAND HERRERA MR#: [id number] : 2000 Acct:[id number] Age/Sex: 24 / F ADM Date: 10/31/24 Loc: US Attending Dr: Simona Currie Ordering Physician: Simona Currie Date of Service: 10/31/24 Procedure(s): US OB incomplete anatomy Accession Number(s): [id number] cc: Simona Currie; Physician,Non-Staff [place] [address] Patient Name: ANAND HERRERA MRN: [facility]:[id number] date: 2000 Sex: F Assigned Patient Location: US Current Patient Location: US Accession/Order Number: [id number] Exam Date: 10/31/2024 09:53 Report Date: 10/31/2024 [...] normal. The spine was surveyed by the construction quality control manager and no abnormalities were reported. US/US OB incomplete anatomy IMPRESSION: UNREMARKABLE SPINE ASSESSMENT. Impression dictated by: Hillary Barth M.D. 10/31/2024 9:54 AM Dictation Location: [place] [address] Electronically authenticated by: [id number] Y Date: 10/31/2024 09:54 Dictated By: Hillary Barth M.D. Signed By: 10/31/24 0957 DD/ TD/TT: Ad Operations Intern: [facility] Radiology Study observation (narrative) [facility] US OB INCOMPLETE ANATOMYOrde red By: Radiologist Radiology on 10-31-2024 [facility] Work Phone: Urinalysis macro (dipstick) panel (U)on 10-25-2024 Bilirubin, UA Negative Negative - 4(70) +++ mg/dL [facility] Blood, UA Negative Negative - 50 Gabriel/mcL [facility] Clarity, UA Clear [facility] Color, UA Yellow [facility] Glucose, UA Negative Negative - 1999(110) ++++ mg/dL [facility] Interpretation and review of laboratory results Normal [facility] Ketones, UA Negative Negative - 160(16) ++++ mg/dL [facility] Leukocytes, UA Negative Negative - 500+++ Sebastián/mcL [facility] Nitrite, UA Negative Negative - Positive [facility] pH, UA 6.5 5 - 9 [facility] Protein, UA Negative Negative - 1999(20) ++++ mg/dL [facility] Spec Grav, UA 1.02 1 - 1.03 [facility] Urobilinogen, UA 0.2 0.2 - 12 mg/dL [facility] RECURRENT VAGINITIS (HTRX)on 09-29-2024 ATOPOBIUM VAGINAE 0 [facility] ATOPOBIUM VAGINAE Not detected [facility] BVAB 2,3 (BACTERIAL VAGINOSIS ASSOCIATED BACTERIA 2, 3); MOBILUNCUS SPP 0 [facility] BVAB 2,3 (BACTERIAL VAGINOSIS ASSOCIATED BACTERIA 2, 3); MOBILUNCUS SPP Not detected [facility] EBONIE ALBICANS, PARAPSILOSIS, TROPICALIS 27.336 Abnormal [facility] EBONIE ALBICANS, PARAPSILOSIS, TROPICALIS Detected Abnormal [facility] EBONIE GLABRATA 0 [facility] EBONIE GLABRATA Not detected [facility] EBONIE KRUSEI 0 [facility] EBONIE KRUSEI Not detected [facility] CHLAMYDIA TRACHOMATIS 0 [facility] CHLAMYDIA TRACHOMATIS Not detected N [facility] GARDNERELLA VAGINALIS 0 [facility] GARDNERELLA VAGINALIS Not detected N [facility] Interpretation and review of laboratory results Abnormal [facility] MEGASPHAERA (TYPES 1, 2) 0 [facility] MEGASPHAERA (TYPES 1, 2) Not detected [facility] MYCOPLASMA GENITALIUM 0 [facility] MYCOPLASMA GENITALIUM Not detected N [facility] NEISSERIA GONORRHOEAE 0 [facility] NEISSERIA GONORRHOEAE Not detected N [facility] TRICHOMONAS VAGINALIS 0 [facility] TRICHOMONAS VAGINALIS Not detected N [facility] Urinalysis macro (dipstick) panel (U)on 09-27-2024 Bilirubin, UA Negative Negative - 4(70) +++ mg/dL [facility] Blood, UA Negative Negative - 50 Gabriel/mcL [facility] Clarity, UA Clear [facility] Color, UA Yellow [facility] Glucose, UA Negative Negative - 2000(110) ++++ mg/dL [facility] Interpretation and review of laboratory results Normal [facility] Ketones, UA Negative Negative - 160(16) ++++ mg/dL [facility] Leukocytes, UA Negative Negative - 500+++ Sebastián/mcL [facility] Nitrite, UA Negative Negative - Positive [facility] pH, UA 7 5 - 9 [facility] Protein, UA Negative Negative - 2000(20) ++++ mg/dL [facility] Spec Grav, UA 1.015 1 - 1.03 [facility] Urobilinogen, UA 0.2 0.2 - 12 mg/dL [facility] US for pregnancyon Interpreted by: Doretha Marie [...] EFW (oz) 4 oz EFW by: Hadlock (VFM-CV-WV-FL) Head / Face / Neck Cephalic index 0.71 <1% Nicolaides Extremities / Bony Struc FL / BPD 0.54 14% Hadlock FL / HC 0.14 5% Hadlock FL / AC 0.16 1% Hadlock Other Structures FHR 150 bpm Anatomy Heart: Normal [place] and [place]. Stomach: Visible, with correct situs. Arms: Both Upper Extremities Seen. Legs: Both Lower Extremities Seen. The following structures appear normal: Cranium. Head size. Head shape. Brain. Right choroid plexus. Left choroid plexus. Midline falx. Thalami. Cerebellum. Face. Profile. Cardiac axis. 4-chamber view. 2-azfjta-nfepjpo view. Thorax. Diaphragm. Abdominal wall. Cord insertion. [...] Suspect Anomaly History ====== General History Smoking:No Wewhxf593 cm Height (ft)5 ft Height (in)6 in Previous Outcomes Gravida3 Para2 Children born living ?37w1 Pregnancies delivered at term (T)1 Pregnancies delivered (P)1 Living children (L)2 Children born living <37w1 Other:Previous Section x2 Maternal Assessment Bmysvi647 cm Height (ft)5 ft Height (in)6 in Bmflna13 kg Weight (lb)155 lb Weight gain0 kg Weight gain (lb)0 lb BMI25.02 kg/m Physical Exam Initial weight (lb)155 lb ========= Prakash . Number of fetuses: 1 Dating ====== Prior assessment by:per outside ultrasound GA by prior scaycyyipg55 w + 6 d OTF by prior [...] 24% Hadlock HC / AC1.19 31% Hadlock HTR450 g14w 4d 35% Hadlock EFW (lb)0 lb EFW (oz)4 oz EFW by:Hadlock (TOT-CY-XA-FL) Head / Face / Neck Cephalic index0.71 <1% Nicolaides Extremities / Bony Struc FL / BPD0.54 14% Hadlock FL / HC0.14 5% Hadlock FL / AC0.16 1% Hadlock Other Structures DSJ270 bpm Anatomy Heart: Normal [place] and [place]. Stomach: Visible, with correct situs. Arms: Both Upper Extremities Seen. Legs: Both Lower Extremities Seen. The following structures appear normal: Cranium. Head size. Head shape. Brain. Right choroid plexus. Left choroid plexus. Midline falx. Thalami. Cerebellum. Face. Profile. Cardiac axis. 4-chamber view. 5-upqlcf-yluvree view. Thorax. Diaphragm. Abdominal wall. Cord insertion. Large bowel. Right kidney. Left kidney. Bladder. The following structures could not be adequately visualized: Spine. sex: female Maternal Structures Uterus / Cervix Uterus:Normal Cervix:Visualized Cervix details:Normal Cervical kvarnk20.3 mm Ovaries / Tubes / Adnexa Rt ovary:Visualized Rt ovary details:Normal Rt ovary D125.0 mm Rt ovary D220.9 mm Rt ovary D320.0 mm Rt ovary Vol5.5 cm Lt ovary:Visualized Lt ovary details:Normal Lt ovary D129.4 mm Lt ovary D234.0 mm Lt ovary D315.1 mm Lt ovary Vol7.9 cm Method ====== Transabdominal ultrasound examination. View: Suboptimal view: limited by early gestational age [facility] Work Phone: Source Facility: [facility] Interpreted by: Doretha Marie Indication ======== [...] EFW (oz) 4 oz EFW by: Hadlock (SQM-BC-GQ-FL) Head / Face / Neck Cephalic index 0.71 <1% Nicolaides Extremities / Bony Struc FL / BPD 0.54 14% Hadlock FL / HC 0.14 5% Hadlock FL / AC 0.16 1% Hadlock Other Structures FHR 150 bpm Anatomy Heart: Normal [place] and [place]. Stomach: Visible, with correct situs. Arms: Both Upper Extremities Seen. Legs: Both Lower Extremities Seen. The following structures appear normal: Cranium. Head size. Head shape. Brain. Right choroid plexus. Left choroid plexus. Midline falx. Thalami. Cerebellum. Face. Profile. Cardiac axis. 4-chamber view. 7-mrlffn-vlnyirm view. Thorax. Diaphragm. Abdominal wall. Cord insertion. [...] limited by early gestational age Radiology, Radiologist, - 08/16/2024 Source Facility: [facility] Interpreted by: Doretha Marie Indication ======== [...] EFW (oz) 4 oz EFW by: Hadlock (SYQ-MZ-DA-FL) Head / Face / Neck Cephalic index 0.71 <1% Nicolaides Extremities / Bony Struc FL / BPD 0.54 14% Hadlock FL / HC 0.14 5% Hadlock FL / AC 0.16 1% Hadlock Other Structures FHR 150 bpm Anatomy Heart: Normal [place] and [place]. Stomach: Visible, with correct situs. Arms: Both Upper Extremities Seen. Legs: Both Lower Extremities Seen. The following structures appear normal: Cranium. Head size. Head shape. Brain. Right choroid plexus. Left choroid plexus. Midline falx. Thalami. Cerebellum. Face. Profile. Cardiac axis. 4-chamber view. 0-npakik-bsnyaif view. Thorax. Diaphragm. Abdominal wall. Cord insertion. [...] Suboptimal view: limited by early gestational age [facility] Radiology Study observation (narrative) [facility] Work Phone: Radiology Study observation (narrative) [facility] US for pregnancyOrdered By: Doretha Marie on 08-16-2024 [facility] Work Phone: US for pregnancyOrdered By: Radiologist Radiology on 08-16-2024 [facility] Work Phone: Urinalysis macro (dipstick) panel (U)on 08-01-2024 Bilirubin, UA Negative Negative - 4(70) +++ mg/dL [facility] Blood, UA Negative Negative - 50 Gabriel/mcL [facility] Clarity, UA Clear [facility] Color, UA Yellow [facility] Glucose, UA Negative Negative - 2000(110) ++++ mg/dL [facility] Interpretation and review of laboratory results Normal [facility] Ketones, UA Negative Negative - 160(16) ++++ mg/dL [facility] Leukocytes, UA Negative Negative - 500+++ Sebastián/mcL [facility] Nitrite, UA Negative Negative - Positive [facility] pH, UA 7 5 - 9 [facility] Protein, UA Negative Negative - 2000(20) ++++ mg/dL [facility] Spec Grav, UA 1.02 1 - 1.03 [facility] Urobilinogen, UA 0.2 0.2 - 12 mg/dL [facility] BOX TESTon 07-07-2024 BOX TEST SENT OUT [facility] [place] [facility] BOX1 [facility] BOX2 07/07/24 [facility] BOX [facility] US OB TRANSVAGINALon 025 US OB TRANSVAGINAL [...] II, MD, PHD at 02-Jul-2024 09:14:34 AM [facility] Normal Not Available Comment on above: Order Comment: US OB TRANSVAGINAL No LMP recorded. ED Clinical Summaryon 2023 ED Clinical Summary ED Clinical Summary [place] [id number] ED Clinical Summary Person Information Name: ANAND HERRERA [facility] Age: 23 Years : 2000 Sex: Female Language: Czech PCP: Kathy Mccall DO Marital Status: Single Phone: [phone] Visit Id: Visit Reason: Ear pain; RIGHT [...] 04/19/2024 01:34:08 04/19/2024 01:34:08 04/19/2024 01:34:08 ADDRESS: [address] [place] [phone] [facility] DOC NOTES: MEDICAL INFORMATION: Prescriptions Given: Medications [...] up: With: Address: When: Kathy Crockett [place], Chauncey C, [facility] [address] [place], [place] [id number] Business (1) In 3 days 04/22/2024 Comments: Return to the emergency room if your pain recurs or any new symptoms. DIAGNOSIS: 1:Ear pain, right; 2:Upper respiratory infection Normal [facility] ED Note-Physicianon 04-19-20 ED Note-Physician ED [...] and Complexity of Problems Differential Diagnosis: [] [facility] Data External documents reviewed: [] My [...] home. She was instructed to take decongestion dypo-slh-uyxjosh. 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 Living situation: Home/Independent. Alcohol abuse in household: No. Substance abuse in household: No. Smoker in household: No., (more content not included)... Normal [facility] Comment on above: Result Comment: Elec tronically Signed By: Olga Davison, Amos Gaona\.br\Date and Time Signed: 04/19/24 03:09 EST ED Patient Summaryon 024 ED Patient Summary ED Patient Summary [place] [address] Patient Discharge Instructions Person Information Name: ANAND HERRERA Age: 23 Years Arrival Date: 04/19/2024 01:04:22 Discharge Diagnosis: 1:Ear pain, right; 2:Upper respiratory infection Primary Care Physician: Kathy Mccall DO Provider Information Primary Provider: Amos Espinoza M.D. Advanced Balcony Worker:None The exam and treatment you received in the Emergency Department were for an urgent problem and are not intended as complete care. It is important that you follow up with a doctor, nurse practitioner, or physician???s entry level marketing assistant for ongoing care. If your symptoms become worse or you do not improve as expected and you are unable to reach your usual health care provider, you should return to the Emergency Department. We are available 24 hours a day. ANAND HERRERA has been given the following list of patient education materials, prescriptions and follow-up instructions: Follow-up Instructions: With: Address: When: Kathy Crockett [place], [address], [address] [place] [address] [facility] () In 3 days 04/22/2024 Comments: Return [...] opioids can be used to help relieve tjdzbrck-vc-bltbjm pain and are often prescribed following a [...] to learn (more content not included)... Normal [facility] IGP,APTIMA HPV,AGE GDLNon AGE GDLN ACOG TESTING Note . [facility] Comment on above: TESTS RESULT FLAG U NITS REF RANGE LAB Clinician Provided Cytology Information Source.............Cervix;Endocervix No. of containers..01 ThinPrep Vial Age Yesi Del Castillo... FLAG LEGEND: L-Low Normal,H-High Normal,LL-Alert Low,HH-Alert High <-Panic Low,>-Panic High,A-Abnormal,AA-Critical Abnormal Performed at: 01 =G [facility] [address] Clara Castro MD, IGP, RFX APTIMA HPV ASCU Note . [facility] Comment on above: TESTS RESULT FLAG UN ITS REF RANGE LAB DIAGNOSIS: 02 NEGATIVE FOR INTRAEPITHELIAL LESION OR MALIGNANCY. Specimen adequacy: 02 Satisfactory for evaluation. Endocervical and/or squamous metaplastic cells (endocervical component) are present. Performed by: 02 Simona Platt, Fringe Knotter ([facility]) . 02 Note: Note 02 The Pap smear is a screening test designed to aid in the detection of premalignant and malignant conditions of the uterine cervix. It is not a diagnostic procedure and should not be used as the sole means of detecting cervical cancer. Both false-positive and false-negative reports do occur. Test Methodology: Note 02 The Digital Theatre(R) Bulldozer/Loader/Compactor/Scraper was unable to read this specimen. Therefore a manual review was performed. FLAG LEGEND: L-Low Normal,H-High Normal,LL-Alert Low,HH-Alert High <-Panic Low,>-Panic High,A-Abnormal,AA-Critical Abnormal Performed at: [address] [address] Clara Castro MD, . 02 The HPV DNA reflex criteria were not met with this specimen result therefore, no HPV testing was performed. The HPV DNA reflex criteria were not met with this specimen result therefore, no HPV testing was performed. Performed at: =[facility] [id number] [employer] Diver: Clara Castro MD, Phone: [phone] Performed at: [facility] [id number] [employer] Diver: Clara Castro MD, Phone: [phone] BRUSH-SPATULA CERVIX ENDOCERVIX [facility] Completed scan + Detailed Anatomyon 11-10-2022 [...] EFW (oz) 10 oz EFW by: Hadlock ([id number]) Extended Certified Registered Locksmith 7.6 mm CM 4.4 mm 35% Nicolaides [...] Normal LVOT view: Normal 3-vessel view: Normal 0-hgoicm-rqfhjxx view: Normal Heart / Thorax Situs: situs [...] gestational sac with a live fetus - [place] rump length is consistent with given OTF [...] Extended Nasal bone: present Anatomy Heart: Normal [place] and Situs. Stomach: Visible, with correct situs. [...] on 09-05-2022 HBsAg Screen Negative Normal Negative [facility] Comment on above: Performed By: #### H BSANS #### [facility] [address] [place] [address] Dr. Stoney Rodriguez HEPATITIS C VIRUS AB W/ REFL EX QUANTon 09-05-2022 HCV AB Non-Reactive Normal Non Reactive [facility] Comment on above: Performed By: #### H CVPCRR #### [facility] [address] [place] [address] Dr. Stoney Rodriguez Interpretation: Comment Normal [facility] Comment on above: Result Comment: Not infected with HCV unless early or acute infection is suspected (which may be delayed in an immunocompromised individual), or other evidence exists to indicate HCV infection. Performed By: #### H CVPCRR #### [facility] [address] [place] [address] Dr. Stoney Rodriguez HIV 1 AND 2 WITH REFLEXon HIV Screen 4th Generation wRfx Non-Reactive Normal Non Reactive [facility] Comment on above: Result Comment: HIV Negative HIV-1/HIV-2 antibodies and HIV-1 p24 antigen were NOT detected. There is no laboratory evidence of HIV infection. Performed By: #### T NS #### [facility] [address] [place] [address] Dr. Stoney Rodriguez RPR QUANTon 09-05-2022 Rapid Plasma Reagin, Quant Non-Reactive Normal NonRea<1:1 [facility] Comment on above: Result [...] utilized, such as Treponema pallidum (Syphilis) Screening [place] (305975) or Rapid Plasma Reagin (RPR) Test With Reflex to Quantitative RPR and Confirmatory Treponema pallidum Antibodies (530548). Performed By: #### R PRQ #### [facility] [address] [place] [address] Dr. Stoney Rodriguez RUBELLA AB IGGon 09-05-2022 Rubella Antibodies, IgG 11.40 index Normal Immune >0.99 [facility] Comment on above: Result Comment: Non- immune <0.90 Equivocal 0.90 - 0.99 Immune >0.99 Performed By: #### R UBIGG #### [facility] [address] [place] [address] Dr. Stoney Rodriguez BOX TEST SENT OUTon 09-05-19 SENT TO REF LAB 09/04/22 Normal [facility] Comment on above: Performed By: #### B OX #### [facility] [address] [place] [address] Dr. Stoney Rodriguez CBC AUTO DIFFon 09-04-2022 BASO # 0.0 103/ul Normal 0.0-0.1 [facility] Comment on above: Performed By: #### C BC #### [facility] [address] [place] [address] Dr. Stoney Rodriguez Basophils/100 WBC (Bld) 0.4 % Normal 0.2-2.0 [facility] Comment on above: Performed By: #### C BC #### [facility] [address] [place] [address] Dr. Stoney Rodriguez EO # 0.1 103/ul Normal 0.0-0.7 [facility] Comment on above: Performed By: #### C BC #### [facility] [address] [place] [address] Dr. Stoney Rodriguez Eosinophils/100 WBC (Bld) 0.7 % Critically low 0.9-7.0 [facility] Comment on above: Performed By: #### C BC #### [facility] [address] [place] [address] Dr. Stoney Rodriguez Erythrocyte distribution width (RBC) [Ratio] 14.5 % Normal 11.0-15.0 [facility] Comment on above: Performed By: #### C BC #### [facility] [address] [place] [address] Dr. Stoney Rodriguez Hematocrit (Bld) [Volume fraction] 36.7 % Normal 36.0-48.0 [facility] Comment on above: Performed By: #### C BC #### [facility] [address] [place] [address] Dr. Stoney Rodriguez Hemoglobin (Bld) [Mass/Vol] 11.9 g/dL Critically low 12.0-16.0 [facility] Comment on above: Performed By: #### C BC #### [facility] [address] [place] [address] Dr. Stoney Rodriguez IG # 0.03 10e3/ul Normal 0.00-0.03 [facility] Comment on above: Performed By: #### C BC #### [facility] [address] [place] [address] Dr. Stoney Rodriguez IG % 0.4 % Normal 0.0-0.5 [facility] Comment on above: Performed By: #### C BC #### [facility] [address] [place] [address] Dr. Stoney Rodriguez LYMPH # 2.0 103/ul Normal 1.2-3.8 [facility] Comment on above: Performed By: #### C BC #### [facility] [address] [place] [address] Dr. Stoney Rodriguez Lymphocytes/100 WBC (Bld) 23.3 % Normal 20.5-60.0 [facility] Comment on above: Performed By: #### C BC #### [facility] [address] [place] [address] Dr. Stoney Rodriguez MANUAL DIFF REQ NO Normal [facility] Comment on above: Performed By: #### C BC #### [facility] [address] [place] [address] Dr. Stoney Rodriguez MCH (RBC) [Entitic mass] 28.7 pg Normal 26.7-34.0 [facility] Comment on above: Performed By: #### C BC #### [facility] [address] [place] [address] Dr. Stoney Rodriguez MCHC (RBC) [Mass/Vol] 32.4 g/dL Normal 29.9-35.2 [facility] Comment on above: Performed By: #### C BC #### [facility] [address] [place] [address] Dr. Stoney Rodriguez MCV (RBC) [Entitic vol] 88.6 fL Normal 81.0-99.0 [facility] Comment on above: Performed By: #### C BC #### [facility] [address] [place] [address] Dr. Stoney Rodriguez MONO # 0.5 103/ul Normal 0.3-0.8 [facility] Comment on above: Performed By: #### C BC #### [facility] [address] [place] [address] Dr. Stoney Rodriguez Monocytes/100 WBC (Bld) 6.2 % Normal 1.7-12.0 [facility] Comment on above: Performed By: #### C BC #### [facility] [address] [place] [address] Dr. Stoney Rodriguez NEUT # 5.9 103/ul Normal 1.4-6.5 [facility] Comment on above: Performed By: #### C BC #### [facility] [address] [address] [address] Stoney Rodriguez Neutrophils/100 WBC (Bld) 69.0 % Normal 43.0-75.0 [facility] Comment on above: Performed By: #### C BC #### [facility] [address] [address] [address] Stoney Rodriguez Platelet mean volume (Bld) [Entitic vol] 9.7 fL Normal 9.5-13.5 [facility] Comment on above: Performed By: #### C BC #### [facility] [address] [address] [address] Stoney Rodriguez PLT 378 103/ul Normal 150-450 [facility] Comment on above: Performed By: #### C BC #### [facility] [address] [place] [address] Dr. Stoney Rodriguez RBC 4.14 106/ul Critically low 4.20-5.40 [facility] Comment on above: Performed By: #### C BC #### [facility] [address] [address] [address] Stoney Rodriguez WBC 8.5 103/ul Normal 4.0-11.0 [facility] Comment on above: Performed By: #### C BC #### [facility] [address] [place] [address] Dr. Stoney Rodriguez CULTURE URINEon 09-04-2022 CULTURE URINE Culture Observations : NO GROWTH. Normal [facility] Comment on above: Performed By: #### U RCX #### [facility] [address] [place] [address] Dr. Stoney Rodriguez GLYCOHEMOGLOBIN A1Con 2022 ADA RECOMMENDATION SEE BELOW Normal [facility] Comment on above: Result Comment: ADA RECOMMENDED LIMIT 4.0 - 6.0 ADA THERAPEUTIC TARGET < 7.0 ACTION SUGGESTED > 7.0 Performed By: #### A 1C #### [facility] [address] [place] [address] Dr. Stoney Rodriguez Glucose [Mass/Vol] 94 mg/dL Normal [facility] Comment on above: Performed By: #### A 1C #### [facility] [address] [place], [place] [address] Dr. Stoney Rodriguez HbA1c (Bld) [Mass fraction] 4.9 % Normal 4.5-6.2 [facility] Comment on above: Performed By: #### A 1C #### [facility] [address] [address] [address] Stoney Rodriguez TSHon 09-04-2022 TSH 0.653 uIU/mL Normal 0.358-3.740 [facility] Comment on above: Performed By: #### T SH #### [facility] [address] [address] [address] Stoney Rodriguez TYPE AND SCREENon 09-04-2022 TYPE AND SCREEN Negative Normal [facility] Comment on above: Performed By: #### T NS #### [facility] [address] [address] [address] Stoney Rodriguez US PREG TVon 08-14-2022 [...] BILLIE SMITH Date: 2022-08-14 16:07 Normal [facility] CHEMISTRYOrdered By: Ida Mcfarland on 12-19-2021 Anion gap [Moles/Vol] 11 mmol/L Normal 6 - 16 mEq/L [facility] Calcium [Mass/Vol] 8.9 mg/dL Normal 8.9 - 11. 1 mg/dL [facility] Chloride [Moles/Vol] 106 mmol/L Normal 101 - 1 11 mmol/L [facility] CO2 [Moles/Vol] 22 mmol/L Normal 21 - 31 mmol/L [facility] Creatinine [Mass/Vol] 0.9 mg/dL Normal 0.5 - 1.3 mg/dL [facility] Glucose [Mass/Vol] 96 mg/dL Normal 55 - 199 mg/dL [facility] Potassium [Moles/Vol] 3.8 mmol/L Normal 3.5 - 5.3 mmol/L [facility] Sodium [Moles/Vol] 135 mmol/L Normal 135 - 145 mmol/L [facility] Urea nitrogen [Mass/Vol] 18 mg/dL Normal 5 - 21 mg/dL [facility] Urea nitrogen/Creatinine [Mass ratio] 20 mg/mg Normal 10 - 20 [facility] CHEMISTRYOrdered By: SYSTEM SYSTEM on 12-19-2021 GFR/1.73 sq M.predicted among blacks MDRD (S/P/Bld) [Vol rate/Area] mL/min/1.73 m2 Normal >=59mL/min/1 .73 m2 [facility] Chem S GFR/1.73 sq M.predicted among non-blacks MDRD (S/P/Bld) [Vol rate/Area] mL/min/1.73 m2 Normal >=59mL/min/1 .73 m2 [facility] Chem S COAGULATIONOrdered By: Randall Mcfarland on 12-19-2021 aPTT Coag (PPP) [Time] 30.1 s Normal 25.1 - 36.5 second(s) [facility] Auto Coag INR Coag (PPP) [Relative time] [...] 7.6 E9/L Normal 4.0 - 11.0 E9/L [facility] HemeAutoSS SEROLOGYOrdered By: Ida Mcfarland on 12-19-2021 Beta hCG Ql Negative (12/19/21 2:12 AM) Normal [facility] Man Sero CULTURE URINEon 04-28-2020 CULTURE URINE [...] 1 S Amikacin(JAI) 4 S Normal [facility] Comment on above: Performed By: #### C /UR ####[address] [place] [address] [place], [place] [id number] Culture, Urineon 04-28-2020 Bacteria identified Cx Nom (U) 10,000-50,000 CFU/ml [place], [place] Bacteria identified Cx Nom (U) Normal urogenital praneeth present. Abnormal [place], [place] Bacteria identified Cx Nom (U) Escherichia coli Abnormal [place] Interpretation and review of laboratory results Abnormal [place], [place] Test Performed by [facility], [address] [place] [id number] [place] [address] Hemoglobinon 04-27-2020 Hemoglobin (Bld) [Mass/Vol] 7.1 g/dL Low 11.7-16.0 [facility] Comment on above: Performed By: #### H EMGB #### [address] [address] Hemoglobin (Bld) [Mass/Vol] 7.1 g/dL Low 11.7 - 16 g/dL [place] Interpretation and review of laboratory results Abnormal [place] Test Performed by [facility], [address] [place] [id number] [place] [address] Group B Strep Screen PCRon Group B Strep Screen PCR Group B [...] - Real Time PCR (Cepheid) Normal [facility] Comment on above: Performed By: #### G BSPC ####[address] [place] [address] Group B Strep, PCRon 020 Group B Strep Screen PCR NEGATIVE Expected Result: Negative CDC guidelines for prevention of Group B Strep disease recommends collection of both vaginal and rectal specimens for optimal recovery of GBS. Methodology - Real Time PCR (Cepheid) [place], [place] Test Performed by [facility], [address] [place] [id number] [place] [address] Op Noteon 04-26-2020 Op Note PATIENT: ANAND [...] She also did have a TAP block. Hospital Clerk: Dr. Benjamin. Replacement: 1500 cc of crystalloid. [...] 1500 cc of crystalloid. Diskriter Job ID: [id number] Zac Chowdhury MD DOD:04/26/2020 07:56 A JAKUB/kimmy DOT:04/26/2020 10:55 A Job Number: [id number] Document Number: [id number] cc: Zac Chowdhury MD [address] [facility] [address] Fariha Matos [facility] [place] [address] [facility] [address] [facility] [address] Normal [facility] C. Trachomatis / N. Gonorrho eae, DNA Probeon 04-25-2020 C. trachomatis DNA ARCHANA+probe Ql (Genital specimen) NOT Detected Chlamydia trachomatis Nucleic Acid NOT Detected by DNA Amplification using the Cepheid System. Culture is the only recommended test in medical-legal cases such as suspected child abuse or molestation. [place], [place] N. gonorrhoeae DNA ARCHANA+probe Ql (Unsp spec) NOT Detected Neisseria gonorrhoeae Nucleic Acid NOT Detected by DNA Amplification using the Cepheid System. Culture is the only recommended test in medical-legal cases such as suspected child abuse or molestation. [place], [place] Test Performed by [facility], [address] [place] [address] [place], [place] CBCon 04-25-2020 Erythrocyte distribution width (RBC) [Ratio] 18.2 % High 11.5 - 14.5 % [place] Hematocrit (Bld) [Volume fraction] 30.6 % Low 35 - 47 % [place] Hemoglobin (Bld) [Mass/Vol] 9.7 g/dL Low 11.7 - 16 g/dL [place] Interpretation and review of laboratory results Abnormal [place] MCH (RBC) [Entitic mass] 26.2 pg 26 - 34 pg [place] MCHC (RBC) [Mass/Vol] 31.9 % Low 32 - 36 % [place] MCV (RBC) [Entitic vol] 82.2 fL 79 - 98 fL [place] Platelet mean volume (Bld) [Entitic vol] 8.1 fL 7.4 - 10.4 fL [place] Platelets (Bld) [#/Vol] 249 10*3/uL 140 - 440 10*3/uL [place] RBC (Bld) [#/Vol] 3.72 10*6/uL Low 3.8 - 5.2 10*6/uL [place] WBC (Bld) [#/Vol] 13.3 10*3/uL High 3.6 - 10.7 10*3/uL [place] Test Performed by [facility], [address] [place] [address] [place] CREATININE, RANDOM URINEon 1 Creatinine (U) [Mass/Vol] 66.8 mg/dL No Range [place], [place] Chlamydia and GC PCR Panelon 04-25-2020 Chlamydia and GC PCR Panel Chlamydia trachomatis PCR --> Status: F NOT Detected Chlamydia trachomatis Nucleic Acid NOT Detected by DNA Amplification using the Cepheid System. Culture is the only recommended test in medical-legal cases such as suspected child abuse or molestation. Chlamydia trachomatis Nucleic Acid NOT Detected by DNA Amplification using the [employer] System. Culture is the only recommended test [...] suspected child abuse or molestation. Normal [facility] Comment on above: Performed By: #### C TNGP ####[facility] [place], [place] Comp Metabolic Panelon 04-25 Calcium [Mass/Vol] 8.5 mg/dL Normal 8.4-10.4 [facility] Comment on above: Performed By: #### P T/AP, CMP3, HEMOG, FIBGN #### [facility] [address] [place], [place] Glucose [Mass/Vol] 97 mg/dL Normal 70-100 [facility] Comment on above: Performed By: #### P T/AP, CMP3, HEMOG, FIBGN #### [facility] [address] [place], [place] ALP [Catalytic activity/Vol] 114 U/L Normal 38-126 [facility] Comment on above: Result Comment: Slig htly hemolysed, interpret with caution. Performed By: #### P T/AP, CMP3, HEMOG, FIBGN #### [address] [address] [address] [place], [place] ALT [Catalytic activity/Vol] 19 U/L Normal 0-34 [facility] Comment on above: Result Comment: The ALT test is performed by an updated assay method. Please note that the reference intervals have been changed and are now sex specific. Performed By: #### P T/AP, CMP3, HEMOG, FIBGN #### [address] [address] [address] [place], [place] Anion Gap 6 Normal [facility] Comment on above: Performed By: #### P T/AP, CMP3, HEMOG, FIBGN #### [address] [address] [address] [place], [place] AST [Catalytic activity/Vol] 39 U/L Normal 15-46 [facility] Comment on above: Result Comment: Slig htly hemolysed, interpret with caution. Performed By: #### P T/AP, CMP3, HEMOG, FIBGN #### [address] [address] [address] [place], [place] Bilirubin [Mass/Vol] 0.5 mg/dL Normal 0.2-1.3 [facility] Comment on above: Performed By: #### P T/AP, CMP3, HEMOG, FIBGN #### [address] [address] [address] [place], [place] CO2 [Moles/Vol] 20 mmol/L Low 22-30 [facility] Comment on above: Performed By: #### P T/AP, CMP3, HEMOG, FIBGN #### [address] [address] [address] [place], [place] Creatinine [Mass/Vol] 0.63 mg/dL Normal 0.52-1.25 [facility] Comment on above: Performed By: #### P T/AP, CMP3, HEMOG, FIBGN #### [facility] [address] [place], [place] eGFR OTHER > 90.0 Normal >60 [facility] Comment on above: Result Comment: KDIG [...] #### P T/AP, CMP3, HEMOG, FIBGN #### [address] [address] [place], [place] GFR/1.73 sq M.predicted among blacks MDRD (S/P/Bld) [Vol rate/Area] mL/min/{1.73_m2} Normal >60 [facility] Comment on above: Performed By: #### P T/AP, CMP3, HEMOG, FIBGN #### [address] Protein [Mass/Vol] 6.9 g/dL Normal 6.3-8.2 [facility] Comment on above: Performed By: #### P T/AP, CMP3, HEMOG, FIBGN #### [address] Urea nitrogen [Mass/Vol] 14 mg/dL Normal 7-20 [facility] Comment on above: Performed By: #### P T/AP, CMP3, HEMOG, FIBGN #### [address] Potassium [Moles/Vol] 4.3 mmol/L Normal 3.5-5.1 [facility] Comment on above: Result Comment: Slig htly hemolysed, interpret with caution. Performed By: #### P T/AP, CMP3, HEMOG, FIBGN #### [address] [address] [place] [address] Sodium [Moles/Vol] 134 mmol/L Low 135-145 [facility] Comment on above: Performed By: #### P T/AP, CMP3, HEMOG, FIBGN #### [facility] [address] [place] [address] Albumin [Mass/Vol] 3.4 g/dL Low 3.5-5.0 [facility] Comment on above: Performed By: #### P T/AP, CMP3, HEMOG, FIBGN #### [facility] [address] [place] [address] Chloride [Moles/Vol] 107 mmol/L Normal 98-107 [facility] Comment on above: Performed By: #### P T/AP, CMP3, HEMOG, FIBGN #### [facility] [address] [place] [address] Comprehensive Metabolic Pane parag 04-25-2020 Albumin [Mass/Vol] 3.4 g/dL Low 3.5 - 5 g/dL [place], [place] ALP [Catalytic activity/Vol] 114 U/L 38 - 126 U/L [place] Comment on above: Slightly hemolysed, interpret with caution. ALT [Catalytic activity/Vol] 19 U/L 0 - 34 U/L [place] Comment on above: The ALT test is perf ormed by an updated assay method. Please note that the reference intervals have been changed and are now sex specific. Anion gap [Moles/Vol] 6 mmol/L [place] AST [Catalytic activity/Vol] 39 U/L 15 - 46 U/L [place] Comment on above: Slightly hemolysed, interpret with caution. Bilirubin Ql (U) 0.5 mg/dL 0.2 - 1.3 mg/dL [place] Calcium [Mass/Vol] 8.5 mg/dL 8.4 - 10. 4 mg/dL [place] Chloride [Moles/Vol] 107 mmol/L 98 - 10 7 mmol/L [place] CO2 [Moles/Vol] 20 mmol/L Low 22 - 30 mmol/L [place] Creatinine [Mass/Vol] 0.63 mg/dL 0.52 - 1.25 mg/dL [place] EGFR IF NonAfrican Jamaican >90.0 >60 mL/min [place] Comment on above: KDIGO guidelines pro [...] MDRD (S/P/Bld) [Vol rate/Area] mL/min/{1.73_m2} >60 mL/min [place] Glucose [Mass/Vol] 97 mg/dL 70 - 100 mg/dL [place] Interpretation and review of laboratory results Abnormal [place] Potassium [Moles/Vol] 4.3 mmol/L 3.5 - 5.1 mmol/L [place] Comment on above: Slightly hemolysed, interpret with caution. Protein [Mass/Vol] 6.9 g/dL 6.3 - 8.2 g/dL [place] Sodium [Moles/Vol] 134 mmol/L Low 135 - 145 mmol/L [place] Urea nitrogen [Mass/Vol] 14 mg/dL 7 - 20 mg/dL [place] Creatinine, Ur Randomon 12-3 0-2019 Creatinine, Ur Random 66.8 mg/dL Normal No Range [facility] Comment on above: Performed By: #### C RTUR, TPUR, MAT #### [address] [address] [address] [place], [place] Fibrinogenon 04-25-2020 Fibrinogen 390 mg/dL Normal 200-400 [place] Comment on above: Performed By: #### P T/AP, CMP3, HEMOG, FIBGN #### [address] [place], [place] Hemogramon 04-25-2020 Erythrocyte distribution width (RBC) [Ratio] 18.2 % High 11.5-14.5 [facility] Comment on above: Performed By: #### P T/AP, CMP3, HEMOG, FIBGN #### [address] [address] [place], [place] Hematocrit (Bld) [Volume fraction] 30.6 % Low 35.0-47.0 [facility] Comment on above: Performed By: #### P T/AP, CMP3, HEMOG, FIBGN #### [address] [place], [place] Hemoglobin (Bld) [Mass/Vol] 9.7 g/dL Low 11.7-16.0 [facility] Comment on above: Performed By: #### P T/AP, CMP3, HEMOG, FIBGN #### [address] [place], [place] MCH (RBC) [Entitic mass] 26.2 pg Normal 26.0-34.0 [facility] Comment on above: Performed By: #### P T/AP, CMP3, HEMOG, FIBGN #### [address] [address] [place] MCHC 31.9 % Low 32.0-36.0 [facility] Comment on above: Performed By: #### P T/AP, CMP3, HEMOG, FIBGN #### [address] [address] [place] MCV (RBC) [Entitic vol] 82.2 fL Normal 79.0-98.0 [facility] Comment on above: Performed By: #### P T/AP, CMP3, HEMOG, FIBGN #### [address] [place], [place] Platelet mean volume (Bld) [Entitic vol] 8.1 fL Normal 7.4-10.4 [facility] Comment on above: Performed By: #### P T/AP, CMP3, HEMOG, FIBGN #### [address] [place], [place] Platelets (Bld) [#/Vol] 249 10*3/uL Normal 140-440 [facility] Comment on above: Performed By: #### P T/AP, CMP3, HEMOG, FIBGN #### [address] [place], [place] RBC (Bld) [#/Vol] 3.72 10*6/uL Low 3.80-5.20 [facility] Comment on above: Performed By: #### P T/AP, CMP3, HEMOG, FIBGN #### [address] [place] WBC (Bld) [#/Vol] 13.3 10*3/uL High 3.6-10.7 [facility] Comment on above: Performed By: #### P T/AP, CMP3, HEMOG, FIBGN #### [address] [place], [place] Medication Assisted Treatmen t Panelon 04-25-2020 Fentanyl Negative Normal [facility] Comment on above: Performed By: #### C RTUR, TPUR, MAT #### [address] [place], [place] Amphetamines Ql (U) Negative Normal [facility] Comment on above: Performed By: #### C RTUR, TPUR, MAT #### [place] [place], [place] Barbiturates Negative Normal [facility] Comment on above: Performed By: #### C RTUR, TPUR, MAT #### [place] [address] [address] [place], [place] Benzodiazepines Ql (U) Negative Normal [facility] Comment on above: Performed By: #### C RTUR, TPUR, MAT #### [facility] [address] [place], [place] Buprenorphine Screen Negative Normal [facility] Comment on above: Performed By: #### C RTUR, TPUR, MAT #### [facility] [address] [place], [place] Cocaine Ql (U) Negative Normal [facility] Comment on above: Performed By: #### C RTUR, TPUR, MAT #### [facility] [address] [place], [place] Ethanol [Mass/Vol] Negative Normal [facility] Comment on above: Performed By: #### C RTUR, TPUR, MAT #### [facility] [address] [place], [place] Methadone Ql (U) Negative Normal [facility] Comment on above: Performed By: #### C RTUR, TPUR, MAT #### [place] [address] [place], [place] Opiates Ql (U) Negative Normal [facility] Comment on above: Performed By: #### C RTUR, TPUR, MAT #### [place] [address] [place], [place] Oxycodone/Oxymorphone Negative Normal [facility] Comment on above: Performed By: #### C RTUR, TPUR, MAT #### [address] [address] [place], [place] PCP Negative [facility] Comment on above: Performed By: #### C RTUR, TPUR, MAT #### [address] [place] [place], [place] THC Negative Normal [facility] Comment on above: Performed By: #### C RTUR, TPUR, MAT #### [facility] [address] [place], [place] Amphetamines Ql (U) Negative [facility] [place] Ben[facility]ines [facility] (U) [place] [facility] [place] [place] Coc[place] [facility]l (U) [facility] [place] [place] Ethanol [Mass/Vol] Negative [facility] [place] Meth[place]one Ql (U) Negative [facility] [place] Opiates Ql (U) Negative [place], [place] Sodium [Moles/Vol] See Below [place], [place] Comment on above: The expected value [...] performed using non-forensic procedures. Test Performed by [employer] [address] [address] [place], [place] MAT Panel Test Comment See Below [facility] Comment on above: Result Comment: The expected [...] By: #### C RTUR, TPUR, MAT #### [facility] [address] [place] [address] Metabolic Panelon 04-25-2020 Sodium [Moles/Vol] Negative [place], [place] Otheron 04-25-2020 Test Performed by [id number] [place] [address] Test Performed by [id number] [place] [address] PROTEIN, URINE, RANDOMon Interpretation and review of laboratory results Abnormal [place], [place] Protein (U) [Mass/Vol] 88 mg/dL High No Range [place], [place] PROTIME/INR & PTTon 04-25-20 20 INR Coag (PPP) [Relative time] 0.9 {INR} [place], [place] Comment on above: Recommended Anticoag ulant [...] Random 88 mg/dL High No Range [facility] Comment on above: Performed By: #### C RTUR, TPUR, MAT #### [address] [place] [address] [address], [place] Protime AND APTTon 0 aPTT Coag (Bld) [Time] 21.4 s Normal 20.0-30.5 [place], [place] Comment on above: NOTE: The therapeuti c time for Heparin anticoagulation, based on Xa activity inhibition, is an APTT of 46-80 seconds. Result Comment: NOTE : The therapeutic time for Heparin anticoagulation, based on Xa activity inhibition, is an APTT of 46-80 seconds. Performed By: #### P T/AP, CMP3, HEMOG, FIBGN #### [facility] [address] [place] [address] INR 0.9 Normal 0.9-1.1 [facility] Comment on above: Result Comment: Trell [...] #### P T/AP, CMP3, HEMOG, FIBGN #### [facility] [address] [address] PT Coag (PPP) [Time] 9.6 s Normal 9.0-12.0 [place], [place] Comment on above: . Result Comment: . Performed By: #### P T/AP, CMP3, HEMOG, FIBGN #### [facility] [address] [address] TS GELon 04-25-2020 TS GEL ABO Group: O Rh, Gel: POS Antibody Screen Gel: NEG Normal [facility] Comment on above: Performed By: #### T SGL ####[facility] TYPE AND SCREENon 04-25-2020 Sodium [Moles/Vol] Negative [place] Sodium [Moles/Vol] O [place] Sodium [Moles/Vol] Positive [place] Test Performed by [facility], [address] [place] [id number] [place], [place] ABO, External Resulton 04-10 ABO, External Result O [place], [place] C. Trachomatis, [facility] 04-10-2020 C. Trachomatis, External Result Negative [place], [place] HIV, External Resulton 04-10 HIV, External Result Negative [place] Hepatitis B, External Result on 04-10-2020 Hep B, External Result Negative [place], [place] N. Gonorrhoeae, External Res ulton 04-10-2020 N. Gonorrhoeae, External Result Negative [place] Otheron 04-10-2020 Verified with Fer Alejo rn [place], [place] RPR, External Labon 04-10-20 20 RPR, External Result Negative Kevin shelton biNuMIRIAM MESSINA Rh Factor, External Resulton 04-10-2020 Rh Factor, External Result Positive [facility] biNuMIRIAM MESSINA Rubella Titer, External Resu lton 04-10-2020 Rubella Titer, External Result IMMUNE MIRIAM Alexis Progress Noteon 03-08-2020 Lube Worker Authentication Interface Message Text Pediatric Cardiology Echocardiogram [...] anatomic obstetrical ultrasound. Patient was seen by [facility] with obstetrical ultrasound and genetic counseling performed [...] here today. A echocardiogram was performed by [facility] as part of their evaluation, and felt [...] in visit on 03/08/20 Echo New Narrative [facility] [place] [address] [email or web address] ---- Echocardiogram Report M-mode, complete 2D, complete spectral Doppler, and color Doppler PATIENT: Anand Herrera STUDY DATE/TIME: Mar 08 2020 12:04PM HEIGHT: : 2000 WEIGHT: AGE: 19yr BSA/BMI: / GENDER: F BP: 137 / 64 LOCATION: [facility] REFERRING PHYSICIAN: Zac Martinez Md ORDERING PROVIDER: [...] STUDY AND PROCEDURE DATA: Procedure Description: New ([id number]) . Study status: Routine. Location: lab. Procedure: [...] a patent foramen ovale. There is a [id number] shunt. Left atrium - The atrium is [...] unspecified. Interpreted and electronically signed by Hannah Guveara MD 03/08/2020 17:33 Impression: History of absent [...] MD [facility] Cleaner Wall [facility] Clinical Operations Program Manager of Pediatrics [facility] Counseling and coordination of care for this patient was greater than 35minutes which is more than 50% of the total time of 60 minutes spent on the encounter. Normal [facility] Lube Worker Authentication Interface Message Text Pediatric Hand Surgery [...] to requesting provider. 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 Pt plans to deliver at [facility] with Dr Martinez. Panel Gluer is not yet decided. female fetus- name is [place] Method of feeding: breast and bottle Ultrasound findings today: See report in procedures for details. Reinforced continued OB care with Dr Martinez- next appointment- next week [facility] Lube Worker Authentication Interface Message Text [facility] genetic counseling note Consultation has been requested [...] Herrera also met with Jerilyn Agee, Clinical Sample Coordinator from our [facility]. Jerilyn will continue to help coordinate and care. consultation with Pediatric Orthopedic Surgery in the Hand and Upper Extremity Clinic is being arranged. follow up with Pediatric Orthopedic Surgery should be within one month of age or otherwise as per their recommendations. Call [phone] to schedule. Consultation with Medical Genetics should be considered in the period, especially if additional concerns are noted after delivery. 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 Call [phone] to schedule. Indicate that you were followed by the [facility] when scheduling. Diagnosis: DIAGNOSIS. 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 Plan: 1. Continued obstetrical care with her primary agency sales development associate is recommended. 2. Follow up q4 weeks to evaluate biometric parameters and anatomy. These are planned with the Treatment Center/your office. 3. surveillance as follows: weekly BPP beginning at 32 weeks. 4. consultation with Pediatric Orthopedic Surgery in the Hand and Upper Extremity Clinic is being arranged. 5. Delivery is appropriate at your local institution/already planned in [place] with follow up as indicated. 6. Mode and timing of delivery are based on the usual obstetrical indications. 7. Anticipate normal nursery. OR Neonatology/Pediatric di to be present at delivery to evaluate and determine nursery placement. 8. follow up with Pediatric Orthopedic Surgery should be within one month of age or otherwise as per their recommendations. Call [phone] to schedule. 9. Consultation with Medical Genetics should be considered in the period, especially if additional concerns are noted after delivery. 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 Call [phone] to schedule. Indicate that you were followed by the [facility] when scheduling. 9. Other follow up as clinically indicated. Her complete [facility] Plan of Care summary will be distributed. The total patient time of the visit was 30 minutes, of which greater than 50% of the time was spent counseling and coordinating care. Junior Kat MD Normal [facility] Progress Noteon 02-15-2020 Lube Worker Authentication Interface Message Text Dating for consult Normal [facility] Vital Signs Date Time Vital Sign Value Performing Clinician Facility 01-04-2025 13:14-0400 Body mass index (BMI) [Ratio] 30.3 kg/m2 Simona ROSS Work Phone: [facility] 01-04-2025 13:14-0400 Body weight 85.16 kg Simona ROSS Work Phone: [facility] 01-04-2025 13:14-0400 Diastolic blood pressure 62 mm[Hg] Simona ROSS Work Phone: [facility] 01-04-2025 13:14-0400 Systolic blood pressure 126 mm[Hg] Simona ROSS Work Phone: [facility] 12-22-2024 13:57-0400 Body mass index (BMI) [Ratio] 30.57 kg/m2 Simona ROSS Work Phone: [facility] 12-22-2024 13:57-0400 Body weight 85.91 kg Simona ROSS Work Phone: [facility] 12-22-2024 13:57-0400 Diastolic blood pressure 68 mm[Hg] Simona ROSS Work Phone: [facility] 12-22-2024 13:57-0400 Systolic blood pressure 112 mm[Hg] Simona ROSS Work Phone: [facility] 12-08-2024 11:30-0400 Body mass index (BMI) [Ratio] 29.58 kg/m2 Marco A Jc DO Work Phone: [facility] 12-08-2024 11:30-0400 Body weight 83.12 kg Marco A Jc DO Work Phone: [facility] 12-08-2024 11:30-0400 Diastolic blood pressure 66 mm[Hg] Marco A Jc DO Work Phone: [facility] 12-08-2024 11:30-0400 Systolic blood pressure 122 mm[Hg] Marco A Jc DO Work Phone: [facility] 11-22-2024 11:51-0400 Body mass index (BMI) [Ratio] 29.34 kg/m2 Marco A Jc DO Work Phone: [facility] 11-22-2024 11:51-0400 Body weight 82.46 kg Marco A Jc DO Work Phone: [facility] 11-22-2024 11:51-0400 Diastolic blood pressure 66 mm[Hg] Marco A Jc DO Work Phone: [facility] 11-22-2024 11:51-0400 Systolic blood pressure 112 mm[Hg] Marco A Jc DO Work Phone: [facility] 10-25-2024 14:39-0400 Body mass index (BMI) [Ratio] 28.25 kg/m2 Simona ROSS Work Phone: [facility] 10-25-2024 14:39-0400 Body weight 79.38 kg Simona ROSS Work Phone: [facility] 10-25-2024 14:39-0400 Diastolic blood pressure 62 mm[Hg] Simona ROSS Work Phone: [facility] 10-25-2024 14:39-0400 Systolic blood pressure 110 mm[Hg] Simona ROSS Work Phone: [facility] 09-27-2024 14:51-0400 Body mass index (BMI) [Ratio] 27.12 kg/m2 Marco A Jc DO Work Phone: [facility] 09-27-2024 14:51-0400 Body weight 76.2 kg Marco A Jc DO Work Phone: [facility] 09-27-2024 14:51-0400 Diastolic blood pressure 70 mm[Hg] Marco A Jc DO Work Phone: [facility] 09-27-2024 14:51-0400 Systolic blood pressure 110 mm[Hg] Marco A Jc DO Work Phone: [facility] 08-29-2024 11:50-0400 Body mass index (BMI) [Ratio] 25.95 kg/m2 Marco A Jc DO Work Phone: [facility] 08-29-2024 11:50-0400 Body weight 72.94 kg Marco A Jc DO Work Phone: [facility] 08-29-2024 11:50-0400 Diastolic blood pressure 68 mm[Hg] Marco A Jc DO Work Phone: [facility] 08-29-2024 11:50-0400 Systolic blood pressure 114 mm[Hg] Marco A Jc DO Work Phone: [facility] 08-01-2024 13:20-0400 Body mass index (BMI) [Ratio] 26.95 kg/m2 Marco A Jc DO Work Phone: [facility] 08-01-2024 13:20-0400 Body weight 75.75 kg Marco A Jc DO Work Phone: [facility] 08-01-2024 13:20-0400 Diastolic blood pressure 70 mm[Hg] Marcoa Jc DO Work Phone: [facility] 08-01-2024 13:20-0400 Systolic blood pressure 120 mm[Hg] Marco A Jc DO Work Phone: [facility] 05-19-2024 11:32-0500 Body mass index (BMI) [Ratio] 23.4 kg/m2 Marco A Jc DO Work Phone: [facility] 05-19-2024 11:32-0500 Body weight 65.77 kg Marco A Jc DO Work Phone: [facility] 05-19-2024 11:32-0500 Diastolic blood pressure 74 mm[Hg] Marco A Jc DO Work Phone: [facility] 05-19-2024 11:32-0500 Systolic blood pressure 110 mm[Hg] Marco A Jc DO Work Phone: [facility] 04-19-2024 01:09-0500 Body temperature 98.06 [degF] [facility] 04-19-2024 01:09-0500 Diastolic blood pressure 84 mm[Hg] [facility] 04-19-2024 01:09-0500 Heart rate 90 /min [facility] 04-19-2024 01:09-0500 Respiratory rate 16 /min [facility] 04-19-2024 01:09-0500 SaO2% (BldA) [Mass fraction] 100 % [facility] 04-19-2024 01:09-0500 Systolic blood pressure 126 mm[Hg] [facility] 03-08-2024 15:12-0500 Body mass index (BMI) [Ratio] 22.29 kg/m2 Marco A Jc DO Work Phone: [facility] 03-08-2024 15:12-0500 Body weight 62.65 kg Marco A Jc DO Work Phone: [facility] 03-08-2024 15:12-0500 Diastolic blood pressure 70 mm[Hg] Marco A Jc DO Work Phone: [facility] 03-08-2024 15:12-0500 Systolic blood pressure 120 mm[Hg] Marco A Jc DO Work Phone: [facility] 10-14-2022 12:27-0400 Body temperature 98.24 [degF] Nakul Cannon [facility] 10-14-2022 12:27-0400 Diastolic blood pressure 64 mm[Hg] Nakul Cannon [facility] 10-14-2022 12:27-0400 Heart rate 107 /min Nakul Cannon [facility] 10-14-2022 12:27-0400 Respiratory rate 18 /min Nakul Cannon [facility] 10-14-2022 12:27-0400 SaO2% (BldA) [Mass fraction] 100 % Nakul Cannon [facility] 10-14-2022 12:27-0400 Systolic blood pressure 113 mm[Hg] Nakul Cannon [facility] 12-19-2021 03:42-0400 Diastolic blood pressure 64 mm[Hg] Anthony Michelle [facility] 12-19-2021 03:42-0400 Heart rate 78 /min Anthony Michelle [facility] 12-19-2021 03:42-0400 Hourly Rounding Anthony Michelle [facility] 12-19-2021 03:42-0400 Nursing Progress Note Reason Other: Pt mediciated per orders. Family x1 cartside. Denies any needs at this time. Anthony Michelle [facility] 12-19-2021 03:42-0400 Respiratory rate 16 /min Anthony Michelle [facility] 12-19-2021 03:42-0400 SaO2% (BldA) [Mass fraction] 100 % Anthony Michelle [facility] 12-19-2021 03:42-0400 Systolic blood pressure 116 mm[Hg] Anthony Michelle [facility] 12-19-2021 02:40-0400 Diastolic blood pressure 70 mm[Hg] Anthony Michelle [facility] 12-19-2021 02:40-0400 Heart rate 82 /min Anthony Michelle [facility] 12-19-2021 02:40-0400 Hourly Rounding Anthony Michelle [facility] 12-19-2021 02:40-0400 Nursing Progress Note Reason Other: Pt ambulatory to bathroom and back to cart with a steady gait. Anthony Michelle [facility] 12-19-2021 02:40-0400 Respiratory rate 16 /min Anthony Michelle [facility] 12-19-2021 02:40-0400 SaO2% (BldA) [Mass fraction] 100 % Anthony Michelle [facility] 12-19-2021 02:40-0400 Systolic blood pressure 122 mm[Hg] Anthony Michelle [facility] 12-19-2021 01:53-0400 Body temperature 98.06 [degF] Anthony Michelle [facility] 12-19-2021 01:53-0400 Diastolic blood pressure 84 mm[Hg] Anthony Michelle [facility] 12-19-2021 01:53-0400 Heart rate 89 /min Anthony Michelle [facility] 12-19-2021 01:53-0400 Respiratory rate 16 /min Anthony Martinez [facility] 12-19-2021 01:53-0400 SaO2% (BldA) [Mass fraction] 100 % Anthony Martinez [facility] 12-19-2021 01:53-0400 Systolic blood pressure 149 mm[Hg] Anthony Maritnez [facility] 11-01-2021 08:09-0400 Body temperature 98.42 [degF] Keanu Kamara [facility] 11-01-2021 08:09-0400 Diastolic blood pressure 90 mm[Hg] Keanu Asad [facility] 11-01-2021 08:09-0400 Heart rate 94 /min Keanu Kamara [facility] 11-01-2021 08:09-0400 Respiratory rate 18 /min Keanu Kamara [facility] 11-01-2021 08:09-0400 SaO2% (BldA) [Mass fraction] 98 % Keanu Kamara [facility] 11-01-2021 08:09-0400 Systolic blood pressure 145 mm[Hg] Keanu Asad [facility] 09-18-2021 09:59-0400 Body temperature 98.06 [degF] [facility] 09-18-2021 09:59-0400 Diastolic blood pressure 87 mm[Hg] [facility] 09-18-2021 09:59-0400 Heart rate 90 /min [facility] 09-18-2021 09:59-0400 Respiratory rate 16 /min [facility] 09-18-2021 09:59-0400 SaO2% (BldA) [Mass fraction] 100 % [facility] 09-18-2021 09:59-0400 Systolic blood pressure 136 mm[Hg] [facility] 04-28-2020 07:51-0500 Body Temperature 97.81 [degF] [facility] [place] 04-28-2020 07:51-0500 BP Diastolic 68 mm[Hg] [facility] , [place] 04-28-2020 07:51-0500 BP Systolic 121 mm[Hg] [place], [place] 04-28-2020 07:51-0500 Pulse (Heart Rate) 97 /min [place], [place] 04-28-2020 07:51-0500 Pulse Oximetry 97 % [place] 04-28-2020 07:51-0500 Respiratory Rate 18 /min [place], [place] 04-25-2020 13:40-0500 BMI (Body Mass Index) 23.3 kg/m2 [place], [place] 04-25-2020 13:40-0500 Body weight 63.5 kg [place] 04-25-2020 13:40-0500 Height 165.1 cm [place], [place] Encounters Encounter Date Encounter Type Care Provider Facility Start: 01-04-2025 End: 01-04-2025 Bamboo flowsheet Simona ROSS Work Phone: [facility] Start: 01-04-2025 End: 01-04-2025 Bamboo flowsheet Simona ROSS Work Phone: [facility] Start: 01-04-2025 End: 01-04-2025 Office outpatient visit 15 minutes Simona ROSS Work Phone: [facility] Comment on above: Third trimester preg tuan ([facility]); 35 weeks gestation of ([facility]) Start: 01-04-2025 End: 01-04-2025 ambulatory SIMONA CURRIE Not Available Start: 12-29-2024 End: 12-29-2024 Clinisync Result Encounter Marco A Jc DO Work Phone: [facility] External Department Unsolicited Start: 12-29-2024 End: 12-29-2024 Clinisync Result Encounter Marco A Jc DO Work Phone: [facility] External Department Unsolicited Start: 12-22-2024 End: 12-22-2024 Bamboo flowsheet Simona ROSS Work Phone: [facility] Start: 12-22-2024 End: 12-22-2024 Bamboo flowsheet Simona ROSS Work Phone: [facility] Start: 12-22-2024 End: 12-22-2024 Office outpatient visit 15 minutes Simona ROSS Work Phone: [facility] Comment on above: Third trimester preg tuan ([facility]); 33 weeks gestation of ([facility]); Amniotic band syndrome; History of miscarriage Start: 12-22-2024 End: 12-22-2024 ambulatory SIMONA CURRIE Not Available Start: 12-12-2024 End: 12-12-2024 ambulatory MARCO A JC Not Available Start: 12-08-2024 End: 12-08-2024 Office outpatient visit 15 minutes Marco A Jc DO Work Phone: [facility] Comment on above: Third trimester preg tuan ([facility]); 31 weeks gestation of ([facility]); Screening, , for anatomic survey ([facility]) Start: 12-08-2024 End: 12-08-2024 ambulatory MARCO A JC Not Available Start: 11-22-2024 End: 11-22-2024 Bamboo flowsheet Marco A Jc DO Work Phone: [facility] Start: 11-22-2024 End: 11-22-2024 Bamboo flowsheet Marco A Jc DO Work Phone: [facility] Start: 11-22-2024 End: 11-22-2024 Office outpatient visit 15 minutes Marco A Jc DO Work Phone: [facility] [place] [facility] Comment on above: Size of fetus incons istent with dates in second trimester ([facility]) (Primary Dx); Second trimester ([facility]); 28 weeks gestation of ([facility]); Mastitis Start: 11-22-2024 End: 11-22-2024 ambulatory MARCO A JC Not Available Start: 10-31-2024 End: 10-31-2024 Clinisync Result Encounter Simona ROSS Work Phone: [facility] External Department Unsolicited Start: 10-31-2024 End: 10-31-2024 Clinisync Result Encounter Simona ROSS Work Phone: [facility] External Department Unsolicited Start: 10-25-2024 End: 10-25-2024 Office outpatient visit 15 minutes Simona ROSS Work Phone: [facility] Comment on above: Second trimester pre gnancy ([facility]); 24 weeks gestation of ([facility]); HSV infection; H/O pre-eclampsia in prior , currently ([facility]); Diabetes mellitus screening; Encounter for anatomic survey ([facility]) Start: 10-25-2024 End: 10-25-2024 ambulatory SIMONA CURRIE [...] DO Work Phone: [facility] Start: 08-29-2024 End: 08-29-2024 Bamboo flowsheet Marco A Jc DO Work Phone: [facility] Start: 08-29-2024 End: 08-29-2024 Office outpatient visit 15 minutes Marco A Jc DO Work Phone: [facility] Comment on above: History of miscarria ge (Primary Dx); Second trimester ; 16 weeks gestation of ; STD exposure; Vaginal discharge Start: 08-29-2024 End: 08-29-2024 ambulatory MARCO A JC Not Available Start: 08-16-2024 End: 08-16-2024 Clinisync Result Encounter Marco A Jc DO Work Phone: [facility] External Department Unsolicited Start: 08-16-2024 End: 08-16-2024 Clinisync Result Encounter Marco A Jc DO Work Phone: [facility] External Department Unsolicited Start: 08-16-2024 End: 08-16-2024 Subsequent hospital visit by physician Emily [facility]yn[facility] Ultrasound 1 [place] Comment on above: as inciden neetu finding ([facility] Start: 08-01-2024 End: 08-01-2024 Bamboo flowsheet Marco A Jc DO Work Phone: [facility] Start: 08-01-2024 End: 08-01-2024 Bamboo flowsheet Marco A Jc DO Work Phone: [facility] Start: 08-01-2024 End: 08-01-2024 Office outpatient visit 15 minutes Marco A Jc DO Work Phone: [facility] Comment on above: 12 weeks [...] 04-19-2024 End: 04-19-2024 Emergency department patient visit Amos Espinoza [facility] Start: 03-08-2024 End: 03-08-2024 Patient encounter procedure Marco A Jc DO Work Phone: [facility] Work Phone: Start: 03-08-2024 End: 03-08-2024 Periodic preventive med est patient 18-39 yrs Marco A Jc DO Work Phone: [facility] Comment on above: Well woman exam with routine gynecological exam Start: 03-08-2024 End: 03-08-2024 ambulatory MARCO A GREENE Not Available Start: 03-08-2024 End: 03-08-2024 Bamboo flowsheet Marco A Jc DO Work Phone: [facility] Start: 03-08-2024 End: 03-16-2024 Bamboo flowsheet Marco A Jc DO Work Phone: [facility] Start: 03-08-2024 End: 03-16-2024 Clinisync Result Encounter Marco A Devio DO Work Phone: [facility] Unsolicited Start: 02-02-2023 End: 02-25-2023 Pre-admission assessment Zac Martinez [facility] Start: 11-10-2022 ambulatory KELL JOHNSON Faci lity:[facility] Jacobo Mark Start: 10-14-2022 End: 10-14-2022 Emergency department patient visit Nakul Cannon [facility] Start: 09-26-2022 ambulatory PCP UNKNOWN Facility:[facility] Jacobo Mark Start: 09-04-2022 End: 09-05-[address] MARCO A GREENE . Facility: Start: 08-14-2022 End: 08-15-[address] MARCO A GREENE . Facility: Start: 12-19-2021 End: 12-19-2021 Emergency department patient visit Anthony Martinez [facility] Start: 11-14-2021 End: 11-14-2021 Patient encounter procedure Grover Amaral OD Work Phone: Ophthalmology Comment on above: EKC (epidemic kerato conjunctivitis) (Primary Dx) Start: 11-07-2021 End: 11-07-2021 Patient encounter procedure Grover Amaral OD Work Phone: Ophthalmology Comment on above: Viral conjunctivitis (Primary Dx) Start: 11-01-2021 End: 11-01-2021 Emergency department patient visit Keanu Kamara [facility] Start: 09-18-2021 End: 09-18-2021 Emergency department patient visit Amos Espinoza [facility] Start: 04-25-2020 End: 04-28-2020 Evaluation and management of inpatient Chelsi Parra Work Phone: [facility] Procedures Date Procedure Procedure Detail Performing Clinician Start: 01-04-2025 Urnls dip stick/tabl et rgnt non-auto w/o micrscp Simona ROSS Work Phone: Start: 12-29-2024 US OB BPP W NON-STRESS Marco A Greene DO Work Phone: Start: 11-22-2024 Urnls dip stick/tabl et rgnt non-auto w/o micrscp Marco A Greene DO Work Phone: Start: 10-31-2024 US OB INCOMPLETE ANATOMY Simona ROSS Work Phone: Start: 10-25-2024 Urnls dip stick/tabl et rgnt non-auto w/o micrscp Simona ROSS Work Phone: Start: 09-27-2024 Urnls dip stick/tabl et rgnt non-auto w/o micrscp Marco A Greene DO Work Phone: Start: 09-27-2024 RECURRENT VAGINITIS (HTRX) Marco A Greene DO Work Phone: Start: 08-16-2024 Us uterus limited 1/> fetuses Marco A Greene DO Work Phone: Start: 08-16-2024 Us uterus limited 1/> fetuses Marco A Greene DO Work Phone: Start: 08-01-2024 Urnls dip stick/tabl et rgnt non-auto w/o micrscp Marco A Greene DO Work Phone: Start: 07-07-2024 BOX TEST Marco A poon DO Work Phone: Start: 03-08-2024 IGP,APTIMA HPV,AGE GDLN Marco A Greene DO Work Phone: Start: 04-27-2020 Blood count hemoglobin Kristrun H Kristinsdottir Work Phone: Start: 04-25-2020 Blood count complete automated Codie Hough Work Phone: Start: 04-25-2020 Blood typing serolog ic abo Codie Hough Work Phone: Start: 04-25-2020 Comprehensive metabo lic panel Codie Hough Work Phone: Start: 04-25-2020 Fibrinogen activity Whi tnmango Hough Work Phone: Start: 04-25-2020 PROTIME/INR & PTT Pankaj Hough Work Phone: Start: 04-25-2020 Creatinine other [...] f 2) Zoster Vaccines (1 of 2) [facility] Start: 04-28-2030 DTaP/Tdap/Td Vaccine s (8 - Td or Tdap) DTaP/Tdap/Td Vaccines (8 - Td or Tdap) [facility] Start: 03-14-2025 End: 03-14-2025 Patient encounter procedure [facility] Start: 01-11-2025 End: 01-11-2025 Patient encounter procedure 01/11/2025 2:30 PM EDT Routine [facility] [address] [place] [phone] Marco A Greene DO [address] [place] [address] [facility] Start: 01-04-2025 End: 01-04-2025 Patient encounter procedure [facility] Comment on above: Arrived Start: 12-26-2024 Influenza vaccination Influenz a Vaccine (Season Ended) [facility] Start: 12-22-2024 End: 12-22-2024 Patient encounter procedure [facility] Comment on above: Arrived Start: 12-22-2024 End: 06-24-2025 US biophysical profile w non stress test US biophysical profile w non stress test Imaging Routine Amniotic band syndrome Expected: 12/22/2024 (Approximate), Expires: 06/24/2025 [facility] Work Phone: Comment on above: Expected: 12/22/2024 (Approximate), Expires: 06/24/2025 Start: 12-08-2024 End: 03-10-2025 US for US OB 14+ weeks anatomy scan Imaging Routine Third trimester ([facility]) 31 weeks gestation of ([facility]) Screening, , for anatomic survey ([facility]) Expected: 12/08/2024, Expires: 03/10/2025 [facility] Work Phone: Comment on above: Expected: 12/08/2024 , Expires: 03/10/2025 Start: 12-08-2024 End: 12-08-2024 Professional / ancillary services management 12/08/2024 11:00 AM EDT Ancillary Procedure LON [facility] OBLYNDA [address] [place] [address] [place] [phone] LON [place] OBGY[facility]adim Start: 11-22-2024 End: 03-25-2025 US for US OB follow up transabdominal approach Imaging Routine Size of fetus inconsistent with dates in second trimester ([facility]) Expected: 11/22/2024, Expires: 03/25/2025 [facility] Work Phone: Comment on above: Expected: 11/22/2024 [...] Expected: 10/25/2024 (Approximate), Expires: 10/25/2025 [facility] Comment on above: Expected: 10/25/2024 (Approximate), Expires: 10/25/2025 Start: 10-25-2024 End: 01-25-2025 US for US OB limited 1+ fetuses Imaging Routine Encounter for anatomic survey ([facility]) Expected: 10/25/2024 (Approximate), Expires: 01/25/2025 [facility] Comment on above: Expected: 10/25/2024 (Approximate), [...] EST Office Visit [facility] [address] [place] [address] Marco A Greene DO [address] [place] [address] Arrived [facility] Comment on above: Arrived Start: 12-27-2023 COVID-19 Vaccine ( season) COVID-19 Vaccine ( season) [facility] Start: 12-26-2021 Influenza vaccination INFLUENZA (#1) [facility] Start: 10-08-2020 PAP TESTING PAP TESTING [facility] Start: 10-08-2020 Screening for malign ant neoplasm of cervix [facility] Start: 10-08-2018 Urine microalbumin profile DTAP,TDAP,TD (1 - Tdap) [facility] Start: 10-08-2017 CHLAMYDIA SCREENING (18-24) CHLAMYDIA SCREENING (18-24) [facility] Start: 10-08-2017 GC (GONORRHEA) SCREENING (18-24) GC (GONORRHEA) SCREENING (18-24) [facility] Start: 10-08-2017 HEPATITIS C SCREENING HEPATITIS C [facility] Start: 10-08-2017 Hepatitis C screening Hepatitis C [facility] Start: 10-08-2017 HIV SCREENING HIV SCREENING [facility] Start: 10-08-2013 PEDS TO ADULT TRANSITION ANNUAL ASSESSMENT PEDS TO ADULT TRANSITION ANNUAL ASSESSMENT [facility] Start: 03-01-2012 Varicella vaccination Varicell a Vaccines (2 of 2 - 2-dose childhood series) [facility] Start: 2011 Adult depression screening assessment DEPRESSION SCREENING [facility] Start: 2011 PEDS TO ADULT TRANSITION INITIAL DISCUSSION PEDS TO ADULT TRANSITION INITIAL DISCUSSION [facility] Start: 10-08-2010 HPV VACCINE (1 - 2-d ose series) HPV VACCINE (1 - 2-dose series) [facility] Start: 04-09-2000 COVID-19 VACCINE (#1) COVID-19 VACCI NE (#1) [facility] Start: 1999 HIV screening HIV Screening [facility] Start: 1999 Lipid panel Lipid Panel [facility] Start: 1999 Yearly Adult Physical Yearly Adult P hysical [facility] CHLAMYDIA TRACHOMATI S (GENITO/STI) CHLAMYDIA TRACHOMATIS (GENITO/STI) Lab Routine Exposure to STD Ordered: 09/27/2024 [facility] Comment on above: Ordered: 09/27/2024 Cytology Cervical or vaginal smear or scraping study Pap Smear Pathology and Cytology Routine Well woman exam with routine gynecological exam Ordered: 03/08/2024 [facility] Work Phone: Comment on above: Ordered: 03/08/2024 Neisseria gonorrhoea e DNA [Presence] in Unspecified specimen by ARCHANA with probe detection Neisseria gonorrhea DNA probe, direct Lab Routine Exposure to STD Ordered: 09/27/2024 [facility] Comment on above: Ordered: 09/27/2024 Nonrebreather mask oxygen Nonrebreather mask oxygen Respiratory Care Routine As directed - RT (PRN) until discontinued starting 04/26/2020 [place], [place] Comment on above: As directed - RT (VT N) until discontinued starting 04/26/2020 Oxygen therapy [[facility]] Initiate Oxygen Therapy Protocol Respiratory Care Routine Daily until discontinued starting 04/26/2020 [place], [place] Comment on above: Daily until disconti nued starting 04/26/2020 Spirometry panel Incentive roger metry Respiratory Care Routine Every 2hr while awake until discontinued starting 04/26/2020 [place], [place] Comment on above: Every 2hr while awak e until discontinued starting 04/26/2020 SURESWAB(R) ADVANCED VAGINITIS PLUS, TMA SURESWAB(R) ADVANCED VAGINITIS PLUS, TMA Pathology and Cytology Routine Exposure to STD Ordered: 09/27/2024 [facility] Work Phone: Comment on above: Ordered: 09/27/2024 [facility] Immunizations Immunization Date Immunization Notes Care Provider Fa cility 04-28-2020 tetanus toxoid, redu paula diphtheria toxoid, and acellular pertussis vaccine, adsorbed [facility] 04-27-2020 influenza, injectabl e, quadrivalent, preservative free [facility] 04-27-2020 influenza virus vacc ine, unspecified formulation [id number] 1 [facility] Work Phone: 04-26-2020 influenza quadrivale nt split vaccine (FLUZONE;FLUARIX;FLULAVAL ;AFLURIA) injection 0.5 mL [facility] 04-26-2020 diphtheria, tetanus toxoids and acellular pertussis vaccine, unspecified formulation [facility] , [place] 12-08-2011 varicella virus vaccine [id number] 1 [facility] Work Phone: Payers Date Payer Category Payer Medicaid [employer] [place] [id number] 2020-Present [phone] [address] [address] [place] [address] Medicaid [id number] 2020 Medicaid (Managed Care) 1.2. [id number] 2020 [employer] of [employer] [employer] ( and others) [facility] [id number] 2020-Present [address] [place] [address] [id number]. [id number] 1999 Unknown [id number] 2.16.840.1.310683.3.579.2. 593 1999 Unknown [id number] 2.16.840.1.836591.3.579.2. 593 1999 Unknown [id number] 2.16.840.1.227648.3.579.2. 356 1999 Unknown [id number] 2.16.840.1.303337.3.579.2. 356 1999 Unknown [id number] 2.16.840.1.704117.3.579.2. 727 1999 Unknown [id number] 2.16.840.1.763890.3.579.2. 1259 1999 Unknown [id number] 2.16.840.1.059446.3.579.2. 1259 1999 Unknown [id number] 2.16.840.1.426557.3.579.2. 1259 1999 Unknown [id number] 2.16.840.1.774900.3.579.2. 1259 1999 Unknown [id number] 2.16.840.1.611188.3.579.2. 1259 1999 Unknown [id number] 2.16.840.1.973520.3.579.2. 9 1999 Unknown [id number] 2.16.840.1.941271.3.579.2. 9 1999 Unknown [id number] 2.16.840.1.391834.3.579.2. 9 1999 Unknown [id number] 2.16.840.1.785013.3.579.2. 9 1999 Unknown [id number] 2.16.840.1.061876.3.579.2. 1258 1999 Unknown [id number] 2.16.840.1.853087.3.579.2. 1258 1999 Unknown [id number] 2.16.840.1.355136.3.579.2. 1258 1999 Unknown [id number] 2.16.840.1.420512.3.579.2. 1258 1999 Unknown [id number] 2.16.840.1.860782.3.579.2. 9 1959 Unknown [id number] Social History Date Type Detail Facility Start: 04-28-2020 End: 10-26-2023 Tobacco smoking status [facility] Never smoker [facility] Start: 04-28-2020 End: 10-26-2023 [facility] use and exposure [facility] Start: 04-28-2020 End: 12-07-2024 Alcohol intake Ex-drinker (finding) [facility] [facility] Start: 1999 [facility] Start: 10-28-2021 End: 08-16-2024 Exposure to SARS-CoV-2 (event) Not sure [facility] [place] Tobacco [facility] Comment on above: denies Start: 10-26-2023 End: 03-08-2024 Sex Assigned At Female [facility] Tobacco smoking status No Smoking Status Entered [facility] Start: 10-26-2023 End: 03-08-2024 History of Social function [facility] Start: 10-29-2022 Alcohol Comment caffeine: rarely [facility] Start: 1999 Sex assigned at Female [facility] Start: 10-19-2022 Gender identity Identifies as female gender (finding) [facility] Start: 05-18-2024 [facility] Tobacco smoking status NHIS Tobacco smoking consumption unknown [facility] Work Phone: Functional Status Date Assessment Result Facility 04-19-2024 Functional Status N/A [facility] 10-14-2022 Functional Status N/A [facility] 12-19-2021 Functional Status N/A [facility] 11-01-2021 Functional Status N/A [facility] Clinical Notes 04-28-2020 to 01-04-2025 CODY Dumont - 01/04/2025 1:50 PM CODY Eisenberg - 12/22/2024 2:00 PM Maida Costello LPN - 12/08/2024 11:30 AM CODY Eisenberg - 11/22/2024 11:40 AM CODY Eisenberg - 10/25/2024 2:30 PM EDT Note Date & Type Note Facility 01-04-2025 History of Presen t illness Narrative Reason [...] Problems Past Medical History: Diagnosis Date Pre-eclampsia ([facility]) HISTORY PAST MEDICAL HISTORY SOCIAL HISTORY Past Medical History: Diagnosis Date Pre-eclampsia ([facility]) Social History Tobacco Use Smoking status: Never [...] nursing note reviewed. Exam conducted with a meat packager present. Vitals: Estimated body mass index is 30.3 kg/m as calculated from the following: Height as of 10/26/23: 5' 6 . Weight as of this encounter: 187 lb 12 oz. BP: 126/62 Patient's last menstrual period was 05/04/2024. ASSESSMENT & PLAN ICD-10-CM 1. Third trimester ([facility]) Z34.93 POCT urinalysis dipstick manually resulted 2. 35 weeks gestation of ([facility]) Z3A.35 Return OB: Patient presents today for [...] of: CODY Dumont documented in this encounter [facility] 12-22-2024 History of Presen t illness Narrative [...] Problems Past Medical History: Diagnosis Date Pre-eclampsia ([facility]) HISTORY PAST MEDICAL HISTORY SOCIAL HISTORY Past Medical History: Diagnosis Date Pre-eclampsia ([facility]) Social History Tobacco Use Smoking status: Never [...] ASSESSMENT & PLAN ICD-10-CM 1. Third trimester ([facility]) Z34.93 2. 33 weeks gestation of ([facility]) Z3A.33 3. Amniotic band syndrome Q79.8 [...] of: CODY Dumont documented in this encounter [facility] 12-08-2024 History of Presen t illness Narrative [...] Problems Past Medical History: Diagnosis Date Pre-eclampsia ([facility]) HISTORY PAST MEDICAL HISTORY SOCIAL HISTORY Past Medical History: Diagnosis Date Pre-eclampsia ([facility]) Social History Tobacco Use Smoking status: [...] nursing note reviewed. Exam conducted with a meat packager present. Vitals: Estimated body mass index is 29.58 kg/m as calculated from the following: Height as of 10/26/23: 5' 6 . Weight as of this encounter: 183 lb 4 oz. BP: 122/66 Patient's last menstrual period was 05/04/2024. ASSESSMENT & PLAN ICD-10-CM 1. Third trimester ([facility]) Z34.93 2. 31 weeks gestation of ([facility]) Z3A.31 Patient presents today for a routine obstetrics appointment. Patient is currently 31w1d with a Estimated Date of Delivery: 02/08/25. Patient desires to have tubal ligation at time of on 02/01/25. Patient to return to clinic in 2-3 weeks for routine OB care. Documented by Rose Costello LPN on behalf of: Marco A Greene DO documented in this encounter [facility] 11-22-2024 History of Presen t illness Narrative [...] Problems Past Medical History: Diagnosis Date Pre-eclampsia ([facility]) HISTORY PAST MEDICAL HISTORY SOCIAL HISTORY Past Medical History: Diagnosis Date Pre-eclampsia ([facility]) Social History Tobacco Use Smoking status: Never [...] fetus inconsistent with dates in second trimester ([facility]) O26.842 US OB follow up transabdominal approach 2. Second trimester ([facility]) Z34.92 POCT urinalysis dipstick manually resulted 3. 28 weeks gestation of ([facility]) Z3A.28 POCT urinalysis dipstick manually resulted Return [...] A Greene DO documented in this encounter [facility] 10-25-2024 History of Presen t illness Narrative [...] night at bedtime until 36 weeks gestation Octavio 40 mg, Daily ALLERGIES No Known Allergies PROBLEMS Active Ambulatory Problems Diagnosis Date Noted No Active Ambulatory Problems Resolved Ambulatory Problems Diagnosis Date Noted No Resolved Ambulatory Problems Past Medical History: Diagnosis Date Pre-eclampsia ([facility]) HISTORY PAST MEDICAL HISTORY SOCIAL HISTORY Past Medical History: Diagnosis Date Pre-eclampsia ([facility]) Social History Tobacco Use Smoking status: Never [...] ASSESSMENT & PLAN ICD-10-CM 1. Second trimester ([facility]) Z34.92 POCT urinalysis dipstick manually resulted 2. 24 weeks gestation of ([facility]) Z3A.24 3. HSV infection B00.9 4. H/O pre-eclampsia in prior , currently ([facility]) O09.299 5. Diabetes mellitus screening Z13.1 CBC Glucose tolerance, 1 hour CBC Glucose tolerance, 1 hour 6. Encounter for anatomic survey ([facility]) Z36.89 US OB limited 1+ fetuses [...] day. Patient is not being seen at [facility] no longer. Simona Currie gave patient a Rpt Anatomy US to have obtained in our office /[facility] due to the spine not seen [...] of: CODY Dumont documented in this encounter [facility] 09-27-2024 History of Presen t illness Narrative [...] nursing note reviewed. Exam conducted with a meat packager present. Vitals: Estimated body mass index is [...] A Greene DO documented in this encounter [facility] 08-29-2024 History of Presen t illness Narrative [...] nursing note reviewed. Exam conducted with a meat packager present. Vitals: Estimated body mass index is [...] A Greene DO documented in this encounter [facility] 08-01-2024 History of Presen t illness Narrative [...] nursing note reviewed. Exam conducted with a meat packager present. Vitals: Estimated body mass index is [...] vyvanse 40mg daily. Will have referral to [facility]. She will begin progesterone at 16 weeks. Orders Placed This Encounter Procedures POCT urinalysis dipstick manually resulted Follow Up: Patient is to return to office in 4 week for routine OB appointment. Documented by Elvi Gerber NP on behalf of: Marco A Greene DO documented in this encounter [facility] 05-19-2024 History of Presen t illness Narrative [...] A Greene DO documented in this encounter [facility] 04-19-2024 Evaluation + Plan note Extrac nino from: Title:ED Note Author:Olga Davison, Amos De Oliveira te:04/19/24 1. Ear pain, right (H92.01: Otalgia, right ear) 2. Upper respiratory infection (J06.9: Acute upper respiratory infection, unspecified) [facility] 12-24-2024 Hospital Discharge instructions Patient Education [...] medicines to help relieve symptoms, such as: Mpba-qug-ypkasjv cold medicines. Cough suppressants. Coughing is a [...] and other clear broths. General instructions Take uqur-fgh-jjfbpgf and prescription medicines only as told by [...] and water are not available, use hand driver license agent. Avoid touching your mouth, face, eyes, or [...] provider. Document Revised: 11/13/2021 Document Reviewed: 11/13/2021 [email or web address] Patient Education 2023 [employer]. 04/19/2024 01:34:08 Earache, Adult Earache, Adult An [...] instructions at home: Medicines Take or apply ubge-sxs-apqvmak and prescription medicines only as told by [...] provider. Document Revised: 08/25/2022 Document Reviewed: 08/25/2022 [email or web address] Patient Education 2023 [employer]. Follow Up Care 04/19/2024 01:06:30 With:Kathy Mccall Address: [facility] [address] , [facility] [address] [place] [address] [facility] ([facility] When:04/22/2024 Comments:Return to the emergency room if your pain recurs or any new symptoms. [facility] 12-24-2024 NoteED Patient Education Note ENT [...] at home: Medicines ??? Take or apply xqty-iio-odkxfhp and prescription medicines only as told by [...] provider. Document Revised: 08/25/2022 Document Reviewed: 08/25/2022 [employer] Patient Education ? 2023 [email or web address] Infectious Disease Upper Respiratory Infection, Adult [...] your health care provide (more content not included)...[facility]11-12-2024 History of Present illness Narrative* Hillary Coreas, HIGH VALUE ASSOCIATE - 03/08/2024 3:00 PM EST Reason for [...] nursing note reviewed. Exam conducted with a meat packager present. Vitals: Estimated body mass index is [...] Marco A Greene DO [id number] Hospital Discharge instructions Patient Education 10/14/2022 13:55:20 Sutures, Azalia, or Adhesive Wound Closure, Jbhh-kx-Dibb Sutures, Azalia, or Adhesive Wound Closure Doctors use stitches [...] ?Hold the edges of the wound together. ?Egan the glue onto your skin. You may [...] reaction that can lead to infection. Azalia Bath are often used to close cuts from surgery (incisions). To use azalia, your doctor will: Hold the edges of your wound close together. Place a staple across the wound. Use a tool to secure the staple to the skin. Repeat this with as many azalia as needed. Bath are faster to use than sutures, and they cause less reaction from your skin. Bath need to be taken out using a tool that bends the azalia away from your skin. Follow these instructions at home: Medicines Take lgpw-bga-ogukyqq and prescription medicines only as told by [...] cannot use soap and water, use hand driver license agent. Do not try to take off or [...] provider. Document Revised: 08/19/2021 Document Reviewed: 08/19/2021 [email or web address] Patient Education 2022 [employer]. Follow Up Care 10/14/2022 12:20:41 With:Baljit Link Address: Keira Montenegro, [address] [place] [address]- Business (1) When:10/17/2022 13:48:24 [facility]08-25-2022 Evaluation + Plan noteExtracted from: Title:ED [...] w/ Auto Diff eGFR PT & PTT [facility]08-25-2022 Hospital Discharge instructions Patient Education 12/19/2021 04:06:21 Dysfunctional Uterine Bleeding Dysfunctional Uterine Bleeding Dysfunctional uterine bleeding is abnormal bleeding from the uterus. Dysfunctional uterine bleedingincludes: A menstrual period that comes earlier or later than usual. A menstrual period that is catering sales manager or heavier than usual, or has large [...] to keep your urine pale yellow. ?Take nfni-iip-oibradl or prescription medicines. ?Eat foods that are high in fiber, such as beans, whole grains, and fresh fruits and vegetables. ?Limit foods that are high in fat and processed sugars, such as fried or sweet foods. Medicines Take atuf-gcc-xjwqzew and prescription medicines only as told by [...] 04/10/2001 Document Revised: 09/22/2018 Document Reviewed: 09/22/2018 [email or web address] Patient Education 2020 [employer]. Follow Up Care 12/19/2021 01:46:43 With:Zac Martinez Address: [facility] [place] [id number] Business (1) When:12/22/2021 [facility]07-21-2022 NoteHNO ID: [id number] Author: Grover Amaral, DIXON Service: ? Author Type: RETURNED ITEM CLERK Type: Progress Notes Filed: 11/14/2021 2:32 PM [...] Grover Amaral, OD November 14, 2021 2:29 [facility] [place] [facility]07-21-2022 History of Present illness Narrative* [...] 14, 2021 2:29 PM [facility] NoteHNO ID: [id number] Author: Grover Amaral OD Service: ? Author Type: RETURNED ITEM CLERK Type: Progress Notes Filed: 11/07/2021 4:03 PM [...] Grover Amaral, DIXON November 07, 2021 4:03 [facility]07-14-2022 Miscellaneous Notes* Addendum Note - Grover Amaral OD - 11/07/2021 4:06 PM EDT Addended by: GROVER AMARAL on: 11/07/2021 04:06 PM Modules accepted: Orders [facility] in [facility] History of Present illness Narrative* Grover [...] 07, 2021 4:03 PM [facility] Evaluation + Plan note Extracted from: Title:ED Note Author:Keanu Kamara DO Date: Allergic reaction (T78.40XA: Allergy, unspecified, initial encounter) Orders: predniSONE, 60 mg = 3 tab(s), Oral, Daily, X 5 day(s), # 15 tab(s), Refills(s) 0, Pharmacy: [facility]/pharmacy #[id number], 165, cm, 11/01/21 8:11:00 EDT, Height/Length Dosing, 63, kg, 11/01/21 8:11:00 EDT, Weight Dosing [facility]07-08-2022 Hospital Discharge instructions Patient Education 11/01/2021 [...] care provider who specializes in treating allergies (asbestos cement sheet supervisor) or eye conditions (dairy cattle farm worker) for tests to confirm the diagnosis. You [...] Eye drops. These may be prescription or folk-myj-tovihsa. There are several different types. You may [...] known allergens whenever possible. Take or apply rcgm-ccl-bapjvrl and prescription medicines only as told by [...] 07/04/2003 Document Revised: 03/26/2018 Document Reviewed: 10/24/2016 [email or web address] Patient Education 2020 [employer]. Follow Up Care 11/01/2021 08:05:40 With:Johanna Huynh Address: [address] [address]- Business (1) When:11/04/2021 08:24:58 Comments:Call today to arrange for follow-up appointment on Thursday or Thursday. Return to the ED with new or worsening symptoms as discussed. With:Baljit Watts Address: [address] [place] [address]- Business (1) When:11/04/2021 08:24:46 Comments:Call the office [...] you develop any new or worsening symptoms. [facility]05-25-2022 Hospital Discharge instructions Patient Education 09/18/2021 [...] may be recommended to support your foot. Vihd-opd-uzikuob anti-inflammatory medicines may also be recommended for [...] sitting or lying down. General instructions Take dims-umy-apzcyof and prescription medicines only as told by [...] 02/02/2007 Document Revised: 12/14/2018 Document Reviewed: 12/14/2018 [email or web address] Patient Education 2020 [employer] Follow Up Care 09/18/2021 09:48:23 With:Baljit Link Address: [address] [place] [address] [facility] ([facility] When:09/21/2021 11:47:11 Comments:Return to the emergency room if your pain gets worse or any new symptom [facility]05-25-2022 Evaluation + Plan noteExtracted from: Title:ED Note Author:Amos Espinoza M.D. te:09/18/21 1. Contusion of left foot (S 90.32XA: Contusion of left foot, initial encounter) Orders: Post-op Shoe XR Foot 3+ Views Left [facility]01-02-2021 NoteDepartment of Obstetrics and Gynecology Delivery Discharge Summary Admission on 04/25/2020 1:08 PM Reason for admission: 04/25/2020 Intrapartum Course: N/A 30w6d PC-01 Indications for Delivery: Was patient delivered between 37w0d - 44o1ozanxz? NO Surgical Operations & Procedures: Date of delivery: 04/26/2020 Delivery Type: without labor Anesthesia: Spinal anesthesia Laceration(s): n/a Delivery Complications: none EBL: 700 cc Pertinent Findings & Procedures: Information for the patient's : Ree Herrera [[id number]] female Weight: 2 lb 12.3 oz (1.256 kg) Apgars: Information for the patient's : Ree Herrera [[id number]] One Minute : 6 Five Minute : 7 Course: Magnesium sulfate and Procardia for PEWSF : Female infant Blood Type/Rh: O POS Antibody Screen: Antibody Screen Date Value Ref Range Status 04/25/2020 NEG NA Final Rubella: No results found for: RUBELLAIGG Contraception: will be discussed with her provider at [place] : no VTE Prophylaxis: Not Indicated Meds: Anand Herrera Home Medication Instructions RANDA:[id number] Printed on:04/28/20 1238 Medication Information ferrous sulfate [...] in [address] Wray in [place]. Condition on discharge: Stable Discharge to: Home [...] know - She will follow with her TAG MAKER in [facility] will call Dr. 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 [facility] this encounter [facility]* Diagnosis Well woman exam with routine gynecological exam Routine gynecological examination [facility] Diagnosis control counseling [facility] Diagnosis 12 weeks gestation of First trimester state, incidental Amniotic band syndrome Other problem associated with amniotic cavity and membranes, unspecified as to episode of care [facility] Diagnosis as incidental finding ([facility]) documented in this encounter [facility] Work Phone: Evaluation note* Diagnosis History of miscarriage- Primary Personal history of other genital system and obstetric disorders Second trimester state, incidental 16 weeks gestation of STD exposure Vaginal discharge Leukorrhea, not specified as infective documented in this encounter [facility]* Diagnosis Second trimester state, incidental 20 weeks gestation of Exposure to STD History of miscarriage Personal history of other genital system and obstetric disorders documented in this encounter [facility]* Diagnosis Second trimester ([facility]) state, incidental 24 weeks gestation of ([facility]) HSV infection Herpes simplex without mention of complication H/O pre-eclampsia in prior , currently ([facility]) Diabetes mellitus screening Screening for diabetes mellitus Encounter for anatomic survey ([facility]) Encounter for anatomic survey documented in this encounter [facility]* Diagnosis Size of fetus inconsistent with dates in second trimester ([facility] Primary Second trimester ([facility]) state, incidental 28 weeks gestation of ([facility]) Mastitis Inflammatory disease of breast [facility]* Diagnosis Third trimester ([facility]) state, incidental 31 weeks gestation of ([facility]) Screening, , for anatomic survey ([facility]) Encounter for anatomic survey documented [facility]* Diagnosis Third trimester ([facility]) state, incidental 33 weeks gestation of ([facility]) Amniotic band syndrome Other problem associated with amniotic cavity and membranes, unspecified as to episode of care History of miscarriage Personal history of other genital system and obstetric disorders [facility]* Diagnosis Third trimester ([facility]) state, incidental 35 weeks gestation of ([facility]) [facility] Narrative No data available for this section [facility] No data available for this section [facility] No data available for this section [facility] Narrative* Imaging (Routine) - Pending Review Specialty Diagnoses / Procedures Referred By Joseph hoff Referred To Contact Radiology Diagnoses as incidental finding ([facility]) Procedures US OB limited 1+ fetuses US MAC OB imaging order Marco A Greene DO [address], [place] [address] Phone: tel: fax: Referral ID Status Reason Start Date Expiration Date Visits Requested Visits Authorized [id number] Pending Review Perform Procedure 08/03/2024 08/03/2025 1 1 [facility] Work Phone: Summary Purpose Family History No [...] Delivery: Was patient delivered between 37w0d - 37m6eyhpwt? NO Surgical Operations & Procedures: Date of delivery: 04/26/2020 Delivery Type: without labor Anesthesia: Spinal anesthesia Laceration(s): n/a Delivery Complications: none EBL: 700 cc Pertinent Findings & Procedures: Information for the patient's : Ree Herrera [[id number]] female Weight: 2 lb 12.3 oz (1.256 kg) Apgars: Information for the patient's : Ree Herrera [[id number]] One Minute : 6 Five Minute : 7 Course: Magnesium sulfate and Procardia for PEWSF : Female Blood Type/Rh: O POS Antibody Screen: Antibody Screen Date Value Ref Range Status 04/25/2020 NEG NA Final Rubella: No results found for: RUBELLAIGG Contraception: will be discussed with her provider at [place] : no VTE Prophylaxis: Not Indicated Meds: Anand Herrera Home Medication Instructions RANDA:[id number] Printed on:04/28/20 7218 Medication Information ferrous sulfate (IRON 325) 325 [...] in [address] Wray in [place]. Condition on discharge: Stable Discharge to: Home [...] know - She will follow with her TAG MAKER in [place] - I will call Dr. Wray answering service at [phone] to update him with her condition, medications, [...] allowing us to care of you at [facility]. This time can be one of [...] over the next few weeks. Bleeding may machine operator picker and then decrease again around 7-10 [...] avoid constipation you may take a mild hacx-wyo-lwqhhpa stool softener (such as colace) as recommended [...] clean your hands with an alcohol-based hand driver license agent that contains at least 60% alcohol. Clean your hands often Wash your hands often with soap and water for at least 20 seconds, especially after blowing your nose, coughing, or sneezing; going to the bathroom; and before eating or preparing food. If soap and water are not readily available, use an alcohol-based hand driver license agent with at least 60% alcohol, covering all [...] healthcare provider to call the local or [facility] health department. Persons who are placed underactive [...] isolation precautions should be made on a ilze-yh-ouxr basis, in consultation with healthcare providers and [facility] health departments. Information on COVID-19 for all [...] respiratory tract signs and symptoms. Ways to [place] with Anxiety & Stress It is normal [...] an illness that was first found in [facility], in March 2019. It has since [...] seen in people before. This virus spreads nvupmt-oq-osotvb through droplets from coughing and sneezing. It [...] water aren't available, use an alcohol-based hand driver license agent. Call 911 anytime you think you may [...] as of: July 27, 2019 Content Version: 12. [employer]. Care instructions adapted under license by your healthcare professional. If you have questions about a medical condition or this instruction, always ask your healthcare professional. [employer] disclaims any warranty or liability for your use of this information. General Recommendations for Routine Cleaning and Disinfection of Households Community members can practice routine cleaning of frequently touched surfaces (for example: tables, doorknobs, light switches, handles, desks, toilets, faucets, sinks) with household hazardous materials analyst and EPA-registered disinfectants that are appropriate for [...] appropriate. These supplies include tissues, paper towels, hazardous materials analyst and EPA-registered disinfectants (see list link at [...] be used for other purposes. Consult the package line relief operator's instructions for cleaning and disinfection products used. [...] used if appropriate for the surface. Follow package line relief operator's instructions for application and proper ventilation. Check [...] o Products with EPA-approved emerging viral pathogens [facility] iconexternal icon are expected to be effective against COVID-19 based on data for harder to kill viruses. Follow the package line relief operator's instructions for all cleaning and disinfection products (e.g., concentration, application method and contact time, etc.). Soft (porous) surfaces such as carpeted floor, rugs, and drapes Remove visible contamination if present and clean with appropriate hazardous materials analyst indicated for use on these surfaces. After cleaning: Launder items as appropriate in accordance with the package line relief operator's instructions. If possible, launder items using the [...] items as appropriate in accordance with the package line relief operator's instructions. If possible, launder items using the warmest appropriate water setting for the items and dry items completely. Dirtylaundry from an ill person can be washed with other people's items. o Clean and disinfect clothes hampers according to guidance above for surfaces. If possible, consider placing a handbag finisher that is either disposable (can be thrown away) or can be laundered. CDC has a list of EPA approved cleaning products on their website - https://www.cdc.gov/coronavirus/ 2019-ncov/community/home/cleaning-disinfection.html https://www.Dugun.com/Wtyuz-Iimlcrkebzt-Fnqetbqa-Products-List.pdf [employer] Stores with delivery and machine operator picker services: [employer]: Free machine operator picker at locations Delivery is $12.95 a month Website - [employer] Parshall: Glassie $2.95 (1st order is free) Delivery is $14.95 Website [employer] Nance: concrete pipe plant supervisor is free Delivery is $5.95 Website [employer]ger: concrete pipe plant supervisor is $4.95 Delivery is $9.95 Website [employer] Me[employer]: concrete pipe plant supervisor is $4.95 Delivery is $9.95 Website [employer] Whole [employer] Market: Can be ordered for delivery and machine operator picker with Pheed Website - www.[employer] Aldi: Free deliver for first 3 orders of $35 or more Website aldi.EdgeSpring Will deliver from [employer]stik, Meijer, Pet[employer], and Target. Annual membership is [...] 2. PreEwSF - severe range Bps at [place], acutely treated with 5mg IV labetalol, [...] know - She will follow with her TAG MAKER in [place] - I will call Dr. Wray answering service at [phone] to update him with her condition, medications, [...] MD - 04/25/2020 11:32 PM EST MFM validation leader physician tracing review from earlier admission with [...] concern for concealed abruption. I did not career guidance counselor the patient directly of the R/B/A [...] day, as when she first arrived to [facility] more moderate than minimal. Patient rajeev [...] content) DATE CREATED AUTHOR 04/18/2020 [facility] DATE CREATED AUTHOR AUTHOR'S ORGANIZ ATION 02/28/2021 [facility] DATE CREATED AUTHOR AUTHOR'S ORGANIZ ATION 11/16/2021 [facility] DATE CREATED AUTHOR AUTHOR'S ORGANIZ ATION 09/10/2022 [facility] DATE CREATED AUTHOR AUTHOR'S ORGANIZ ATION 11/13/2022 [facility] DATE CREATED AUTHOR AUTHOR'S ORGANIZ ATION 04/22/2024 [facility] DATE CREATED AUTHOR AUTHOR'S ORGANIZ ATION 01/06/2025 [facility] dical Specialists EPIC Reason for Visit [...] Care Team (unrecognized sect ion and content) Wallpaperer Helper Relationship Specialty Start Date End Date Baljit Watts MD [address] [place] [address] PCP - General Family Practice 11/07/21 Wallpaperer Helper Relationship Specialty Start Date End Date LinkBaljit MD [address] [place] [phone] PCP - General Family Practice 11/07/21 Wallpaperer Helper Relationship Specialty Start Date End Date LinkBaljit MD [address] [place] [phone] PCP - General Family Medicine 10/20/22 Wallpaperer Helper Relationship Specialty Start Date End Date LinkBaljit MD [address] [place] [phone] PCP - General Family Medicine 10/20/22 Wallpaperer Helper Relationship Specialty Start Date End Date LinkBaljit MD [address] [place] [phone] PCP - General Family Medicine 10/20/22 Wallpaperer Helper Relationship Specialty Start Date End Date LinkBaljit MD [address] [place] [phone] PCP - General Family Medicine 10/20/22 Wallpaperer Helper Relationship Specialty Start Date End Date Baljit Watts MD PCP - General Family Medicine 10/20/22 Wallpaperer Helper Relationship Specialty Start Date End Date Baljit Watts MD PCP - General Family Medicine 10/20/22 Wallpaperer Helper Relationship Specialty Start Date End Date Baljit Watts MD PCP - General Family Medicine 10/20/22 Wallpaperer Helper Relationship Specialty Start Date End Date Link, MD Baljit PCP - General Family Medicine 10/20/22 Wallpaperer Helper Relationship Specialty Start Date End Date Link, MD Baljit PCP - General [facility] Medicine 10/20/22 Wallpaperer Helper Relationship Specialty Start Date End Date Link, MD Baljit PCP - General Family Medicine 10/20/22 Wallpaperer Helper Relationship Specialty Start Date End Date Link, MD Baljit PCP - General [facility] Medicine 10/20/22 Wallpaperer Helper Relationship Specialty Start Date End Date Link, MD Baljit PCP - General [facility] Medicine 10/20/22 Wallpaperer Helper Relationship Specialty Start Date End Date Link, MD Baljit PCP - General [facility] Medicine 10/20/22 Wallpaperer Helper Relationship Specialty Start Date End Date Link, MD Baljit PCP - General Family Medicine 10/20/22 Wallpaperer Helper Relationship Specialty Start Date End Date Link, MD Baljit PCP - General Family Medicine 10/20/22 Wallpaperer Helper Relationship Specialty Start Date End Date Link, MD Baljit PCP - General Family Medicine 10/20/22 Source Comments (unrecognize d section and content) In the event this informatio n is protected by the Federal Confidentiality of Alcohol and Drug Abuse Patient Records regulations: The Federal rules restrict any use of the information to criminally investigate or prosecute any alcohol or drug abuse patient.[facility] the event this information is protected by the Federal Confidentiality of Alcohol and Drug Abuse Patient Records regulations: The Federal rules restrict any use of the information to criminally investigate or prosecute any alcohol or drug abuse patient.[facility] FOR RECORDS PERTAINING TO PATIENTS [...] BE BASED ON THE PRIMARY CLINICAL RECORDS. [facility] bettercodes.org [facility]. provides no warranty or guarantee of the accuracy or completeness of information in this document.
== END 2025-01-09 16:20 | disposition home or self-care (01) ==
LOC: FBCO 15:46 → FBC 15:49
PROVIDERS: Visit Provider Obstetrics & Gynecology
DX: O09.213 Supervision of pregnancy with history of pre-term labor, third trimester (principal); Z3A.35 35 weeks gestation of pregnancy
CPT/HCPCS: 59025

== ENCOUNTER 2025-01-11 20:35 | Outpatient (REF) | payer OTHER, SELFPAY ==
--- OUTSIDE RECORDS SUMMARY | 2025-01-04 13:50 | XMS_ITS | Encounter Summary ---
Author Organization [facility] Address [address] [place] [address] Care Team Providers Care Aoc Airspace Control Officer Name Role Phone Link, Baljit PRETTY Primary Care Provider Reason for Visit * Reason Comments Routine Visit Encounter Details Date Type Department Care Team (Late st Contact Info) Description 01/04/2025 1:50 PM EDT Routine NOMEmelia BARRERA [address] [place] [address] Simona Currie PA [address] [facility] [address] [place], [facility]11 Third trimester ([facility]); 35 weeks gestation of ([facility]) Social History Tobacco Use Types Packs/Day Years [...] Problems Past Medical History: Diagnosis Date Pre-eclampsia ([facility]) HISTORY PAST MEDICAL HISTORY SOCIAL HISTORY Past Medical History: Diagnosis Date Pre-eclampsia ([facility]) Social History Tobacco Use Smoking status: [...] nursing note reviewed. Exam conducted with a trim master operator present. Vitals: Estimated body mass index is 30.3 kg/m?? as calculated from the following: Height as of 10/26/23: 5' 6 . Weight as of this encounter: 187 lb 12 oz. BP: 126/62 Patient's last menstrual period was 05/04/2024. ASSESSMENT & PLAN ICD-10-CM 1. Third trimester ([facility]) Z34.93 POCT urinalysis dipstick manually resulted 2. 35 weeks gestation of ([facility]) Z3A.35 Return OB: Patient presents today for [...] EST Office Visit [facility] [address] [place] [address] Marco A Greene DO [address] [facility] [place] [address] documented as of this encounter Procedures Procedure Name Priority Date/Time Associated Diagnosis Comments POCT URINALYSIS DIPSTICK Routine 01/04/2025 1:32 PM EDT Third trimester ([facility]) documented in this encounter Results * (ABNORMAL) [...] this encounter Visit Diagnoses Diagnosis Third trimester ([facility]) state, incidental 35 weeks gestation of ([facility]) documented in this encounter Care Teams Aoc Airspace Control Officer Relationship Specialty Start Date End Date Baljit Watts MD PCP - General Family Medicine 10/20/22 documented as of this encounter
--- OUTSIDE RECORDS SUMMARY | 2025-01-11 14:30 | XMS_ITS | Encounter Summary ---
Author Organization [facility] Address [address] [place] [address] Care Team Providers Care Cadd Drafter Name Role Phone Link, Baljit PRETTY Primary Care Provider [phone] Reason for Visit * Reason Comments Routine Visit Encounter Details Date Type Department Care Team (Late st Contact Info) Description 01/11/2025 2:30 PM EDT Routine [facility]BG[facility] [address] [address] Marco A Greene DO [address] Franchesca Coffey, [facility]11 Third trimester ([facility]); 36 weeks gestation of ([facility]); Amniotic band syndrome; H/O pre-eclampsia in prior , currently ([facility]) Social History Tobacco Use Types Packs/Day [...] Sign Reading Time Taken Comments Blood Pressure 122/64 01/11/2025 2:39 PM EDT Pulse - - Temperature - - Respiratory Rate - - Oxygen Saturation - - Inhaled Oxygen Concentration - - Weight 86.5 kg (190 lb 12.8 oz) 01/11/2025 2:39 PM EDT Height - - Body Mass Index 30.8 10/26/2023 1:10 PM EDT documented in this encounter Progress Notes * Hillary Coreas, CITY ADMINISTRATOR - 01/11/2025 2:30 PM EDT Reason for Appointment: Patient [...] Problems Past Medical History: Diagnosis Date Pre-eclampsia ([facility]) HISTORY PAST MEDICAL HISTORY SOCIAL HISTORY Past Medical History: Diagnosis Date Pre-eclampsia ([facility]) Social History Tobacco Use Smoking [...] nursing note reviewed. Exam conducted with a executive assistant to general counsel present. Vitals: Estimated body mass index is 30.8 kg/m?? as calculated from the following: Height as of 10/26/23: 5' 6 . Weight as of this encounter: 190 lb 12.8 oz. BP: 122/64 Patient's last menstrual period was 05/04/2024. ASSESSMENT & PLAN ICD-10-CM 1. Third trimester ([facility]) Z34.93 POCT urinalysis dipstick manually resulted CULTURE, GROUP B STREP WITH SUSCEPTIBLITY CULTURE, GROUP B STREP WITH SUSCEPTIBLITY 2. 36 weeks gestation of ([facility]) Z3A.36 POCT urinalysis dipstick manually resulted 3. Amniotic band syndrome Q79.8 4. H/O pre-eclampsia in prior , currently ([facility]) O09.299 Patient is doing well but has complaints of being tired and having maternal discomfort due to . Patient verbalized frequent movement and was instructed to perform kick counts three times per day. labor precautions were given, LARC consent was signed/declined, and GBS was obtained. Cervical check was performed and patient is 0cm dilated. Orders Placed This Encounter Procedures CULTURE, GROUP B STREP WITH SUSCEPTIBLITY POCT urinalysis dipstick manually resulted Follow Up: Patient is to return to office in 1 week for routine OB appointment Documented by Hillary Coreas LPN on behalf of: Marco A Greene DO documented in this encounter Plan of Treatment Upcoming Encounters Date Type Department Care Team (Late st Contact Info) Description 03/14/2025 11:00 AM EST Office Visit [facility] [address] [place] [address] Marco A Greene, DO [address] [place] [address] [place] [address] Scheduled Orders Name Type Priority Associated Diagnoses Orde r Schedule CULTURE, GROUP B STREP WITH SUSCEPTIBLITY Lab Routine Third trimester ([facility]) Expected: 01/11/2025, Expires: 01/11/2026 documented as of this encounter Procedures Procedure Name Priority Date/Time Associated Diagnosis Comments POCT URINALYSIS DIPSTICK Routine 01/11/2025 2:47 PM EDT Third trimester ([facility]) 36 weeks gestation of ([facility]) documented in this encounter Results * (ABNORMAL) POCT urinalysis dipstick manually resulted (01/11/2025 2:47 PM EDT) Color, UA Yellow Clarity, UA Clear Glucose, UA Negative Negative - 2000(110) ++++ mg/dL Bilirubin, UA Negative Negative - 4(70) +++ mg/dL Ketones, UA Negative Negative - 160(16) ++++ mg/dL Spec Grav, UA 1.005 1 - 1.03 Blood, UA Positive Negative - 50 Gabriel/mcL pH, UA 7.0 5 - 9 Protein, UA Negative Negative - 2000(20) ++++ mg/dL Urobilinogen, UA 1.0 0.2 - 12 mg/dL Leukocytes, UA Positive Negative - 500+++ Sebastián/mcL Nitrite, UA Negative Negative - Positive Urine 01/11/2025 2:47 PM EDT Marco A Greene DO POINT OF CARE TEST ENTER/EDIT OR DERABLES Final Result documented in this encounter Visit Diagnoses Diagnosis Third trimester ([facility]) state, incidental 36 weeks gestation of ([facility]) Amniotic band syndrome Other problem associated with amniotic cavity and membranes, unspecified as to episode of care H/O pre-eclampsia in prior , currently ([facility]) documented in this encounter Care Teams Cadd Drafter Relationship Specialty Start Date End Date Baljit Watts MD PCP - General Family Medicine 10/20/22 documented as of this encounter
--- OUTSIDE RECORDS SUMMARY | 2025-01-11 20:39 | XMS_ITS | Encounter Summary ---
Author Organization [facility] Address [address] [place] [address] Care Team Providers Care Plumber Apprentice Name Role Phone Link, Baljit Gilbert DO Primary Care Provider [phone] Source Comments In the event this information is protected by the Federal Confidentiality of Alcohol and Drug AbusePatient Records regulations: The Federal rules restrict any use of the information to criminally investigate or prosecute any alcohol or drug abuse patient.[facility] Encounter Details Date Type Department Care Team (Late st Contact Info) Description 11/18/2021 Get Medical Advice Ophthalmology [address] [place] [address] Elmer Sheets, OD [address] [facility] [place] [address] Tobradex Gel Social History Tobacco [...] on filedocumented in this encounter Care Teams Plumber Apprentice Relationship Specialty Start Date End Date Link, Baljit Gilbert DO [address] [place] [address] PCP - General Family Medicine 11/07/21 documented as of this encounter
--- OUTSIDE RECORDS SUMMARY | 2025-01-11 20:39 | XMS_ITS | Encounter Summary ---
Author Organization [facility] Address [address] [place] [address] Care Team Providers Care Veneer Taping Machine Operator Name Role Phone Link, Baljit PRETTY Primary Care Provider [phone] Encounter Details Date Type Department Care Team (Late st Contact Info) Description 03/13/2023 Clinisync Result Encounter [facility] External Department Unsolicited Marco A Greene DO [address], [facility]11 Social History Tobacco Use Types Packs/Day [...] EST Office Visit [facility]BG[facility] [address] [place] [address] Marco A Greene DO [address], [facility]11 documented as of this encounter Procedures Procedure Name Priority Date/Time Associated Diagnosis Comments US OB BPP W NON-STRESS 03/13/2023 8:47 AM EST documented in this encounter Results * US OB BPP W NON-STRESS (03/13/2023 8:47 AM EST) Anatomical Region Laterality Modality Other 03/13/2023 8:47 AM EST Narrative 03/13/2023 8:47 [place] [address] Ultrasound Report Signed Patient: ANAND HERRERA MR#: [id number] : 2000 Acct:[id number] Age/Sex: 22 / F ADM Date: 03/13/23 Loc: [facility] 254-[address]: Marco A Greene D.O. Ordering Physician: Marco A Greene D.O. Date of Service: 03/13/23 Procedure(s): US OB BPP w non-stress Accession Number(s): [id number] cc: Marco A Greene D.O.; Physician,Non-Staff M.DIrvin The [address] [address] Patient Name: ANAND HERRERA MRN: [id number] date: 2000 Sex: F Assigned Patient Location: [facility] Current Patient Location: [facility] Accession/Order Number: [id number] Exam Date: 03/13/2023 07:50 Report Date: 03/13/2023 [...] Nicole M.D. Signed By: 03/13/2349 DD/ TD/TT: Caustic Loader: Procedure Note Radiology, Radiologist, - 03/13/2023 [place] [address] Ultrasound Report Signed Patient: ANAND HERRERA EMR#: [id number] : 2000Acct:[id number] Age/Sex: Date: 03/13/23 Loc: [facility] 254-[address]: Marco A Greene D.O. Ordering Physician: Marco A Greene D.O. Date of Service: 03/13/23 Procedure(s): US OB BPP w non-stress Accession Number(s): [id number] cc: Marco A Greene D.O.; Physician,Non-Staff [place] The [place] [address] Patient Name: ANAND HERRERA MRN: [facility]:[id number] date: 2000 Sex: F Assigned Patient Location: [facility] Current Patient Location: [facility] Accession/Order Number: [id number] Exam Date: 03/13/2023 07:50 Report Date: 03/13/2023 [...] Jess Nicole M.D. Signed By:03/13/2349 DD/ TD/TT: Caustic Loader: us Marco A Jc DO [facility] Final Result documented in this encounter Visit Diagnoses Not on filedocumented in this encounter Care Teams Veneer Taping Machine Operator Relationship Specialty Start Date End Date Link, MD Baljit PCP - General Family Medicine 10/20/22 documented as of this encounter
--- OUTSIDE RECORDS SUMMARY | 2025-01-11 20:39 | XMS_ITS | Encounter Summary ---
Author Organization [facility] Address [address] [place] [address] Care Team Providers Care Wrapper Hands Sprayer Name Role Phone Link, Baljit Gilbert DO Primary Care Provider [phone] Source Comments In the event this information is protected by the Federal Confidentiality of Alcohol and Drug AbusePatient Records regulations: The Federal rules restrict any use of the information to criminally investigate or prosecute any alcohol or drug abuse patient.[facility] Encounter Details Date Type Department Care Team (Late st Contact Info) Description 11/09/2021 Get Medical Advice Ophthalmology [address] [place] [address] Elmer Sheets, OD [address] [facility] [place] [address] Eyes Social History Tobacco Use [...] on filedocumented in this encounter Care Teams Wrapper Hands Sprayer Relationship Specialty Start Date End Date Link, Baljit Gilbert DO [address] [place] [address] PCP - General Family Medicine 11/07/21 documented as of this encounter
--- OUTSIDE RECORDS SUMMARY | 2025-01-11 20:39 | XMS_ITS | Clinical Summary ---
Author Organization [facility] Address [address] [facility], [address] [place] [address] Care Team Providers Care Stock Replenisher Name Role Phone Unavailable Primary Care Provider [...]
--- OUTSIDE RECORDS SUMMARY | 2025-01-11 20:39 | XMS_ITS | Encounter Summary ---
Author Organization [facility] Address [address] [facility] [place] [address] Care Team Providers Care Chemical Preparer Name Role Phone Link, Baljit PRETTY Primary Care Provider [phone] Encounter Details Date Type Department Care Team (Late Contact Info) Description 03/17/2024 Orders Only LON BARRERA [address] [place] [address] Lisa Gleason LPN [address] [place] [address] Social History Tobacco Use Types Packs/Day Years [...] AM EST Office Visit [facility]elia BARRERA [address] [place] [address] Marco A Greene DO [address] [place] [address] documented as of this encounter Procedures Procedure [...] on filedocumented in this encounter Care Teams Chemical Preparer Relationship Specialty Start Date End Date Link, MD Baljit PCP - General Family Medicine 10/20/22 documented as of this encounter
--- OUTSIDE RECORDS SUMMARY | 2025-01-11 20:39 | XMS_ITS | Encounter Summary ---
Author Organization [facility] Address [address] [facility] [place] [address] Care Team Providers Care Nail Tech Name Role Phone Link, Baljit PRETTY Primary Care Provider [phone] Encounter Details Date Type Department Care Team (Late Contact Info) Description 03/16/2023 Abstract [facility]elia BARRER[facility] [place] [address] Lisa Gleason LPN [address] [place] [address] Social History Tobacco Use Types Packs/Day Years [...] Department Care Team (Late Contact Info) Description 03/14/2025 11:00 AM EST Office Visit LON BARRERA [facility] [place] [address] Jc, Marco A, [address] [place] [address] documented as of this encounter Visit Diagnoses Not on filedocumented in this encounter Care Teams Nail Tech Relationship Specialty Start Date End Date Baljit Watts MD PCP - General Family Medicine 10/20/22 documented as of this encounter
--- OUTSIDE RECORDS SUMMARY | 2025-01-11 20:39 | XMS_ITS | Encounter Summary ---
Author Organization [facility] Address [address] [place] [address] Care Team Providers Care Publishing Director Name Role Phone Link, Baljit Gilbert DO Primary Care Provider [phone] Source Comments In the event this information is protected by the Federal Confidentiality of Alcohol and Drug AbusePatient Records regulations: The Federal rules restrict any use of the information to criminally investigate or prosecute any alcohol or drug abuse patient.[facility] Encounter Details Date Type Department Care Team (Late st Contact Info) Description 11/15/2021 Get Medical Advice Ophthalmology [address] [address] Elmer Sheets, OD [address] [facility] [place] [address] Eyes Social History Tobacco Use [...] on filedocumented in this encounter Care Teams Publishing Director Relationship Specialty Start Date End Date Link, Baljit Gilbert DO [address] [place] [address] PCP - General Family Medicine 11/07/21 documented as of this encounter
--- OUTSIDE RECORDS SUMMARY | 2025-01-11 20:39 | XMS_ITS | Clinical Summary ---
Author Organization [facility] Address [address] [place] [address] Phone Care Team Providers Care Technology Advisor Name Role Phone Unavailable Primary Care Provider Unavailabl e Allergies No known active allergies Medications [id number] c acid (PreNata) 29 mg iron- 1 [...] patient's age to complete this topic Insurance [facility]
--- OUTSIDE RECORDS SUMMARY | 2025-01-11 20:39 | XMS_ITS | Encounter Summary ---
Author Organization [facility] Address [address] [place] [address] Care Team Providers Care Criminology Professor Name Role Phone Link, Baljit PRETTY Primary Care Provider [phone] Encounter Details Date Type Department Care Team (Late st Contact Info) Description 11/10/2022 Clinisync Result Encounter [facility] External Department Unsolicited Marco A Greene DO [address], [facility]11 Social History Tobacco Use Types [...] Visit [facility] OBGYN [address] [place] [address] Marco A Greene DO [address], [place] [id number] documented as of this encounter Procedures Procedure [...] Cerebellum tr 19.9 mm 19w 4d 55% Cnoti Nuchal fold 3.6 mm AC 144.8 mm 19w 6d 58% Hadlock Femur 28.0 mm 18w 4d 16% Hadlock Humerus 29.9 mm 48% Chitty HC / AC 1.11 14% Hadlock EFW 278 g 19w 1d 31% Hadlock EFW (lb) 0 lb EFW (oz) 10 oz EFW by: Hadlock ([id number]) Extended Drupal Programmer 7.6 mm CM 4.4 mm 35% Nicolaides [...] Normal LVOT view: Normal 3-vessel view: Normal 4-kzjvwe-kaeflah view: Normal Heart / Thorax Situs: situs [...] EFW (oz) 10 oz EFW by: Hadlock ([id number]) Extended Drupal Programmer 7.6 mm CM 4.4 mm 35% Nicolaides [...] Normal LVOT view: Normal 3-vessel view: Normal 0-zntpns-sqjfmcr view: Normal Heart / Thorax Situs: situs [...] on filedocumented in this encounter Care Teams Criminology Professor Relationship Specialty Start Date End Date Link, MD Baljit PCP - General Family Medicine 10/20/22 documented as of this encounter
--- OUTSIDE RECORDS SUMMARY | 2025-01-11 20:39 | XMS_ITS | Encounter Summary ---
Author Organization [facility] Address [address] [place] [address] Care Team Providers Care Edging Catcher Name Role Phone Link, Baljit PRETTY Primary Care Provider [phone] Encounter Details Date Type Department Care Team (Late st Contact Info) Description 01/12/2023 Clinisync Result Encounter NOMS External Department Unsolicited Marco A Greene DO [address], [facility]11 Social History Tobacco Use Types Packs/Day Years [...] Visit [facility]BG[facility] [address] [place] [address] Marco A Greene DO [address], [place] [id number] (work) documented as of this encounter Procedures Procedure Name Priority Date/Time Associated Diagnosis Comments US OB CERVICAL LENGTH 01/12/2023 4:57 PM EDT documented in this encounter Results * US OB CERVICAL LENGTH (01/12/2023 4:57 PM EDT) Anatomical Region Laterality Modality Other 01/12/2023 4:57 PM EDT Narrative 01/12/2023 4:57 PM EDT The [address] [address] Ultrasound Report Signed Patient: ANAND HERRERA MR#: [id number] : 2000 Acct:[id number] Age/Sex: 22 / F ADM Date: 01/12/23 Loc: US Attending Dr: Marco A Greene D.O. Ordering Physician: Marco A Greene D.O. Date of Service: 01/12/23 Procedure(s): US OB cervical length Accession Number(s): [id number] cc: Marco A Greene D.O. The [address] [address] Patient Name: ANAND HERRERA MRN: [id number] date: 2000 Sex: F Assigned Patient Location: US Current Patient Location: US Accession/Order Number: [id number] Exam Date: 01/12/2023 08:35 Report Date: 01/12/2023 [...] Dictated By: Jess Nicole M.D. Signed By: 01/12/23 1700 DD/ 56 TD/TT: Point Of Care Specialist: Procedure Note Radiology, Radiologist, - 01/16/2023 [place] [address] Ultrasound Report Signed Patient: ANAND HERRERA EMR#: [id number] : 2000Acct:[id number] Age/Sex: 22 / FADM Date: 01/12/23 Loc: US Attending Dr: Marco A Greene D.O. Ordering Physician: Marco A Greene D.O. Date of Service: 01/12/23 Procedure(s): US OB cervical length Accession Number(s): [id number] cc: Marco A Greene D.O. The [place] [address] Patient Name: ANAND HERRERA MRN: [id number] date: 2000 Sex: F Assigned Patient Location: US Current Patient Location: US Accession/Order Number: [id number] Exam Date: 01/12/2023 08:35 Report Date: 01/12/2023 [...] Nicole M.D. Signed By:01/12/231699 DD/ 56 TD/TT: Point Of Care Specialist: us Marco A Greene DO [facility] Final Result documented in this encounter Visit Diagnoses Not on filedocumented in this encounter Care Teams Edging Catcher Relationship Specialty Start Date End Date Baljit Watts MD PCP - General Family Medicine 10/20/22 documented as of this encounter
--- OUTSIDE RECORDS SUMMARY | 2025-01-11 20:39 | XMS_ITS | Encounter Summary ---
Author Organization [facility] Address [address] [place] [address] Care Team Providers Care Mannequin Decorator Name Role Phone Link, Baljit PRETTY Primary Care Provider [phone] Encounter Details Date Type Department Care Team (Late st Contact Info) Description 09/26/2022 Clinisync Result Encounter NOMS External Department Unsolicited Marco A Greene, DO [address], [facility]11 Social History Tobacco Use Types Packs/Day Years [...] 03/14/2025 11:00 AM EST Office Visit [facility] [address] [place] [address] Marco A Greene DO [address] [place] [address] documented as of this encounter Procedures Procedure [...] gestational sac with a live fetus - [place] rump length is consistent with given OTF [...] Extended Nasal bone: present Anatomy Heart: Normal [place] and [place]. Stomach: Visible, with correct situs. [...] gestational sac with a live fetus - [place] rump length is consistent with given OTF [...] Extended Nasal bone: present Anatomy Heart: Normal [place] and [place]. Stomach: Visible, with correct situs. [...] Sufficient Electronically signed by: JESS FELDMAN MD [facility] Final Result documented in this encounter Visit Diagnoses Not on filedocumented in this encounter Care Teams Mannequin Decorator Relationship Specialty Start Date End Date Baljit Watts MD PCP - General Family Medicine 10/20/22 documented as of this encounter
--- OUTSIDE RECORDS SUMMARY | 2025-01-11 20:39 | XMS_ITS | Encounter Summary ---
Author Organization [facility] Address [address] [place] [address] Care Team Providers Care End Packer Name Role Phone Link, Baljit PRETTY Primary Care Provider [phone] Encounter Details Date Type Department Care Team (Late Contact Info) Description 01/04/2025 Bamboo flowsheet [facility] Erlinda BARRERA [address] [place] [address] Simona Currie PA [address] [facility] [address] [place], [place] [address] Social History Tobacco Use Types Packs/Day Years [...] EST Office Visit [facility] Erlinda BARRERA [address] [facility] [place] [address] Marco A Greene, [address] [facility] [address], [facility]11 documented as of this encounter Visit Diagnoses Not on filedocumented in this encounter Care Teams End Packer Relationship Specialty Start Date End Date Baljit Watts MD PCP - General Family Medicine 10/20/22 documented as of this encounter
--- OUTSIDE RECORDS SUMMARY | 2025-01-11 20:39 | XMS_ITS | Encounter Summary ---
Author Organization [facility] Address [address] [place] [address] Care Team Providers Care Carding Machine Feeder Name Role Phone Link, Baljit PRETTY Primary Care Provider [phone] Encounter Details Date Type Department Care Team (Late st Contact Info) Description 01/10/2025 Telephone [facility] Erlinda BARRERA [address] [employer] [place] [address] Justine Young MA [address] [place] [address] Social History Tobacco Use Types Packs/Day Years [...] on file documented as of this encounter Miscellaneous Notes * Telephone Encounter - Justine Young MA - 01/10/2025 3:29 PM EDT Pt called that she fell yesterday and landed on her knees and caught herself with her other hand that was available due to holding her child. I asked if she went to the ER to get evaluated? Pt deniedgoing she said she felt ok besides the sore knees she feels fine. I asked if she is feeling baby/pain? Pt denies anything out of the ordinary. I advised pt if she were to fall again she is to go get checked out to make everything is ok w/herself and baby. Pt again stated she didn't think she neededto go since she didn't fall on her stomach and she will be in tomorrow to see the doctor. I advisedpt to make sure she mentions the fall to the physician. PVU. documented in this encounter Plan of Treatment Upcoming Encounters Date Type Department Care Team (Late st Contact Info) Description 03/14/2025 11:00 AM EST Office Visit [facility]BG[facility] [address] [facility] [place] [phone] Marco A Greene DO [address] [place] [address] documented as of this encounter Visit Diagnoses Not on filedocumented in this encounter Care Teams Carding Machine Feeder Relationship Specialty Start Date End Date Link, MD Baljit PCP - General Family Medicine 10/20/22 documented as of this encounter
--- OUTSIDE RECORDS SUMMARY | 2025-01-11 20:39 | XMS_ITS | Encounter Summary ---
Author Organization [facility] Address [address] [place] [address] Care Team Providers Care Stars Coordinator Name Role Phone Link, Baljit Gilbert DO Primary Care Provider [phone] Source Comments In the event this information is protected by the Federal Confidentiality of Alcohol and Drug AbusePatient Records regulations: The Federal rules restrict any use of the information to criminally investigate or prosecute any alcohol or drug abuse patient.[facility] Encounter Details Date Type Department Care Team (Late st Contact Info) Description 11/25/2021 Get Medical Advice Ophthalmology [address] [facility] [place] [address] Elmer Sheets, OD [address] [facility] [place] [address] Eye drops Social History Tobacco [...] on filedocumented in this encounter Care Teams Stars Coordinator Relationship Specialty Start Date End Date Link, Baljit Gilbert DO [address] [facility] [place] [address] PCP - General Family Medicine 11/07/21 documented as of this encounter
--- OUTSIDE RECORDS SUMMARY | 2025-01-11 20:39 | XMS_ITS | Patient Health Record ---
Author Organization [facility] Address [address] [place] [address] Care Team Providers Care Roof Tile Layer Name Role Phone Tanika Rosales Primary Care Provider [phone] Reason For Referral No Information Encounters Encounter Location Date Provider Diagnosis [facility] [address] [place] [address] 09/28/2024 Tanika Rosales Dental caries on pit [...] Date Dental Fink [employer] [address] [place] [address] [id number] ANAND PERALES Self - patient is the insured Dental Wrap [facility] Fink [address] [place] [address] [phone] [id number] ANAND PERALES Self - patient is the insured 5
--- OUTSIDE RECORDS SUMMARY | 2025-01-11 20:39 | XMS_ITS | Encounter Summary ---
Author Organization [facility] Address [address] [place] [address] Care Team Providers Care Ground Support Agent Name Role Phone Link, Baljit Gilbert DO Primary Care Provider [phone] Source Comments In the event this information is protected by the Federal Confidentiality of Alcohol and Drug AbusePatient Records regulations: The Federal rules restrict any use of the information to criminally investigate or prosecute any alcohol or drug abuse patient.[facility] Encounter Details Date Type Department Care Team (Late st Contact Info) Description 11/20/2021 Get Medical Advice Ophthalmology [address] [facility] [place] [address] Elmer Sheets, OD [address] [facility] [place] [address] Eye drops Social History Tobacco [...] on filedocumented in this encounter Care Teams Ground Support Agent Relationship Specialty Start Date End Date Link, Baljit Gilbert DO [address] [facility] [place] [address] PCP - General Family Medicine 11/07/21 documented as of this encounter
--- OUTSIDE RECORDS SUMMARY | 2025-01-11 20:39 | XMS_ITS | Clinical Summary ---
Author Organization [facility] Address [address] [place] [address] Care Team Providers Care Epic Ambulatory Analyst Name Role Phone Link, Baljit PRETTY Primary Care Provider [phone] Allergies No known active allergies Medications Vyvanse [...] 30 suppository 2 12/23/19 25 025 Active Active Problems Estimated Date of Delivery Comme nts Yes 02/08/2025 Based on last me nstrual period of 05/04/2024 No known active problems Encounters Date Type Department Care Team Description 01/11/2025 2:30 PM EDT Routine LON BARRERA [address] [place] [address] [place] [address] Silas Greene DO Third trimester ([facility]); 36 weeks gestation of ([facility]); Amniotic band syndrome; H/O pre-eclampsia in prior , currently ([facility]) 01/11/2025 Bamboo flowsheet [facility] [address] [facility] [place] [address] Silas Greene DO 01/10/2025 [place] [address] Justine Young MA 01/04/2025 1:50 PM EDT Routine [place] [address] Simona Gunn PA Third trimester ([facility]); 35 weeks gestation of ([facility]) 01/04/2025 Bamboo flowsheet [place] [address] Simona Gunn PA 12/29/2024 Clinisync Result Encounter NOMS External Department Unsolicited Silas Greene 12/22/2024 2:00 PM ED[place] [address] Simona Gunn PA Third trimester ([facility]); 33 weeks gestation of ([facility]); Amniotic band syndrome; History of miscarriage 12/22/2024 Bamboo flowsheet [facility] [address] Simona Gunn PA 12/12/2024 11:00 AM EDT Ancillary [place] [address] Third trimester ([facility]); 31 weeks gestation of ([facility]); Screening, , for anatomic survey ([facility]) 12/08/2024 11:30 AM ED[place] [address] Silas Greene Third trimester ([facility]); 31 weeks gestation of ([facility]); Screening, , for anatomic survey ([facility]) 12/08/2024 11:00 AM EDT Ancillary Procedure [facility] Erlinda BARRERA [address] [place] [address] [place] [address] Size of fetus inconsistent with dates in second trimester ([facility]) 12/08/2024 Telephone [facility] Erlinda BARRERA [address] [place] [address] [place] [address] Rose Costello, CUSTOMS AND BORDER PROTECTION INSPECTOR 12/06/2024 Patient Outreach [facility] [place] [address] [place] [address] Simona Woods LPN 11/30/2024 Abstract [facility] [place] [address] [place] [address] Simona Woods CUSTOMS AND BORDER PROTECTION INSPECTOR 11/29/2024 Telephone [facility] Erlinda BARRERA [address] [place] [address] [place] [address] Silas Greene DO 11/22/2024 11:40 AM EDT Routine [facility] Erlinda BARRERA [address] [place] [address] [place] [address] Silas Greene DO Size of fetus inconsistent with dates in second trimester ([facility]) (Primary Dx); Second trimester ([facility]); 28 weeks gestation of ([facility]); Mastitis 11/22/2024 Bamboo flowsheet [facility] Erlinda BARRERA [address] [place] [address] [place] [address] Silas Greene DO 11/10/2024 Telephone [facility] Erlinda BARRERA [address] [place] [address] [place] [address] Piedad Dewitt, [facility] 10/31/2024 Clinisync Result Encounter NOMS External Department Unsolicited Simona Gunn PA 10/25/2024 2:30 PM EDT Routine [facility] Erlinda BARRERA [address] [facility] [place] [address] Simona Gunn PA Second trimester ([facility]); 24 weeks gestation of ([facility]); HSV infection; H/O pre-eclampsia in prior , currently ([facility]); Diabetes mellitus screening; Encounter for anatomic survey ([facility]) 10/25/2024 Bamboo flowsheet [facility] Erlinda BARRERA [address] [place] [address] [place] [address] Simona Gunn PA from Last 3 [...] 12.8 oz) 01/11/2025 2:39 PM EDT Height 167.6 cm (5' 6 ) 10/26/2023 1:10 PM EDT Body Mass Index 30.8 10/26/2023 1:10 PM EDT Plan of Treatment Upcoming Encounters Date Type Department Care Team (Late st Contact Info) Description 03/14/2025 11:00 AM EST Office Visit NOMEmelia BARRERA [address] [place] [address] [place] [address] Silas Greene, [address] [facility] [place] [address] Procedures Procedure Name Priority Date/Time Associated Diagnosis Comments POCT URINALYSIS DIPSTICK Routine 01/11/2025 2:47 PM EDT Third trimester ([facility]) 36 weeks gestation of ([facility]) POCT URINALYSIS DIPSTICK Routine 01/04/2025 1:32 PM EDT Third trimester ([facility]) US OB BPP W NON-STRESS 12/29/2024 7:37 PM EDT US OB 14+ WEEKS ANATOMY SCAN Routine 12/12/2024 11:50 AM EDT Third trimester ([facility]) 31 weeks gestation of ([facility]) Screening, , for anatomic survey ([facility]) US OB FOLLOW UP TRANSABDOMINAL APPROACH Routine 12/08/2024 11:16 AM EDT Size of fetus inconsistent with dates in second trimester ([facility]) POCT URINALYSIS DIPSTICK Routine 11/22/2024 12:01 PM EDT Second trimester ([facility]) 28 weeks gestation of ([facility]) ALL CBC WITH AUTO DIFF Routine 10:36 AM EDT GLUCOSE 1 HOUR Routine 10/31/2024 10:36 AM EDT US OB INCOMPLETE ANATOMY 10/31/2024 9:54 AM EDT POCT URINALYSIS DIPSTICK Routine 10/25/2024 2:39 PM EDT Second trimester ([facility]) from Last 3 Months Results * (ABNORMAL) POCT urinalysis dipstick manually resulted (01/11/2025 2:47 PM EDT) Only the most recent of4 resultswithin the time period is included. Color, [...] - Positive Urine 01/11/2025 2:47 PM EDT us Silas Greene DO POINT OF CARE TEST ENTER/EDIT OR DERABLES Final Result * US OB BPP W NON-STRESS (12/29/2024 7:37 PM EDT) Anatomical Region Laterality Modality Other 12/29/2024 7:37 PM EDT Narrative 12/29/2024 7:40 [place] [address] Ultrasound Report Signed Patient: ANAND PERALES MR#: [id number] : 2000 Acct:[id number] Age/Sex: 24 / F ADM Date: 12/29/24 Loc: US Attending Dr: Silas Greene D.O. Ordering Physician: Silas Greene D.O. Date of Service: 12/29/24 Procedure(s): US OB BPP w non-stress Accession Number(s): [id number] cc: Silas Greene D.O.; Physician,Non-Staff M.DIrvin [address] [address] Patient Name: ANAND PERALES MRN: [id number] date: 2000 Sex: F Assigned Patient Location: [facility] Current Patient Location: Accession/Order Number: [id number] Exam Date: 12/29/2024 17:15 Report Date: 12/29/2024 [...] Bo M.D. 12/29/2024 7:37 PM Dictation Location: [employer] Electronically authenticated by: [id number] Y Date: 12/29/2024 19:37 Dictated By: Charles Bo D.O. Signed By: 12/29/241939 DD/ 36 TD/TT: Sales Professional: Procedure Note Radiology, Radiologist, MD - 12/29/2024 [place] [address] Ultrasound Report Signed Patient: ANAND PERALES EMR#: [id number] : 2000Acct:[id number] Age/Sex: 24 / FADM Date: 12/29/24 Loc: US Attending Dr: Silas Greene D.O. Ordering Physician: Silas Greene D.O. Date of Service: 12/29/24 Procedure(s): US OB BPP w non-stress Accession Number(s): [id number] cc: Silas Greene D.O.; Physician,Non-Staff [place] The [address] [address] Patient Name: ANAND PERALES MRN: [id number] date: 2000 Sex: F Assigned Patient Location: [facility] Current Patient Location: Accession/Order Number: [id number] Exam Date: 12/29/2024 17:15 Report Date: 12/29/2024 [...] Bo M.D. 12/29/2024 7:37 PM Dictation Location: [employer] Electronically authenticated by: [id number] Y Date: 9:37 Dictated By: Charles Bo D.O. Signed By:12/29/241939 DD/ 36 TD/TT: Sales Professional: us Silas Greene DO [facility] Final [...] II, MD, PHD at 15-Dec-2024 08:04:22 AM [facility] Procedure Note Zac Martinez MD - [...] ZAC MARTINEZ II, MD, PHD 08:04:22 AM [facility] us Silas Jc DO IMG OB [...] ROSS LAB BLOOD ORDERABLES Final Resul t [facility] * (ABNORMAL) ALL CBC WITH AUTO DIFF [...] AM EDT 10/31/2024 10:38 AM EDT Narrative AMILCARCAROLYN - 10/31/2024 11:03 AM EDT us Simona TUTTLE Final Result [facility] * US OB INCOMPLETE ANATOMY (10/31/2024 9:54 AM EDT) Anatomical Region Laterality Modality Other 10/31/2024 9:54 AM EDT Narrative 10/31/2024 9:57 [place] [address] Ultrasound Report Signed Patient: ANAND PERALES MR#: [id number] : 2000 Acct:[id number] Age/Sex: 24 / F ADM Date: 10/31/24 Loc: US Attending Dr: Simona Gunn Ordering Physician: Simona Gunn Date of Service: 10/31/24 Procedure(s): US OB incomplete anatomy Accession Number(s): [id number] cc: Simona Gunn; Physician,Non-Staff [place] [id number] Patient Name: ANAND PERALES MRN: [facility]:[id number] date: 2000 Sex: F Assigned Patient Location: US Current Patient Location: US Accession/Order Number: [id number] Exam Date: 10/31/2024 09:53 Report Date: 10/31/2024 [...] normal. The spine was surveyed by the scratcher tender and no abnormalities were reported. US/US OB incomplete anatomy IMPRESSION: UNREMARKABLE SPINE ASSESSMENT. Impression dictated by: Hillary Barth M.D. 10/31/2024 9:54 AM Dictation Location: [place] [address] Electronically authenticated by: [id number] Y Date: 10/31/2024 09:54 Dictated By: Hillary Barth M.D. Signed By: 10/31/24 0957 DD/ 3 TD/TT: Sales Professional: Procedure Note Radiology, Radiologist, - 10/31/2024 [place] [address] Ultrasound Report Signed Patient: ANAND PERALES EMR#: [id number] : 2000Acct:[id number] Age/Sex: FADM Date: 10/31/24 Loc: US Attending Dr: Simona Gunn Ordering Physician: Simona Gunn Date of Service: 10/31/24 Procedure(s): US OB incomplete anatomy Accession Number(s): [id number] cc: Simona Gunn; Physician,Non-Staff [place] The [place] [id number] Patient Name: ANAND PERALES MRN: [id number] date: 2000 Sex: F Assigned Patient Location: US Current Patient Location: US Accession/Order Number: [id number] Exam Date: 10/31/2024 09:53 Report Date: 10/31/2024 [...] subjectively normal. Thespine was surveyed by the scratcher tender and no abnormalities were reported. US/US OB incomplete anatomy IMPRESSION: UNREMARKABLE SPINE ASSESSMENT. Impression dictated by: Hillary Barth M.D. 10/31/2024 9:54 AM Dictation Location: [place] [address] Electronically authenticated by: [id number] Y Date: 9:54 Dictated By: Hillary Barth M.D. Signed By:10/31/24 0957 DD/ 3 TD/TT: Sales Professional: us Simona ROSS [facility] Final Result from Last 3 Months Insurance [place] Care Teams Epic Ambulatory Analyst Relationship Specialty Start Date End Date Mac, MD Baljit PCP - General Family Medicine 10/20/22
--- OUTSIDE RECORDS SUMMARY | 2025-01-11 20:39 | XMS_ITS | Encounter Summary ---
Author Organization [facility] Address [address] [place] [address] Care Team Providers Care Toll Collector Supervisor Name Role Phone Link, Baljit PRETTY Primary Care Provider [phone] Encounter Details Date Type Department Care Team (Late Contact Info) Description 09/29/2024 Abstract LON BARRERA [address] [place] [address] Marco A Greene DO [facility] [address], [place] [address] Social History Tobacco Use Types Packs/Day Years [...] Office Visit LON BARRERA [address] [place] [address] Marco A Greene DO [address], [facility] documented as of this encounter Visit Diagnoses Not on filedocumented in this encounter Care Teams Toll Collector Supervisor Relationship Specialty Start Date End Date Baljit Watts MD PCP - General Family Medicine 10/20/22 documented as of this encounter
--- OUTSIDE RECORDS SUMMARY | 2025-01-11 20:39 | XMS_ITS | Encounter Summary ---
Author Organization [facility] Address [address] [place] [address] Care Team Providers Care Sales Representative Name Role Phone Link, Baljit Gilbert DO Primary Care Provider [phone] Source Comments In the event this information is protected by the Federal Confidentiality of Alcohol and Drug AbusePatient Records regulations: The Federal rules restrict any use of the information to criminally investigate or prosecute any alcohol or drug abuse patient.[facility] Encounter Details Date Type Department Care Team (Late st Contact Info) Description 11/14/2021 Get Medical Advice Ophthalmology [address] [facility] [place] [address] Elmer Sheets, OD [address] [facility] [place] [address] Appointment Social History Tobacco Use [...] filedocumented in this encounter Care Teams Sales Representative Relationship Specialty Start Date End Date Link, Baljit Gilbert DO [address] [place] [address] PCP - General Family Medicine 11/07/21 documented as of this encounter
--- OUTSIDE RECORDS SUMMARY | 2025-01-11 20:39 | XMS_ITS | Encounter Summary ---
Author Organization [facility] Address [address] [place] [address] Care Team Providers Care Customer Service Driver Name Role Phone Link, Baljit PRETTY Primary Care Provider [phone] Encounter Details Date Type Department Care Team (Late Contact Info) Description 11/30/2024 Abstract [facility] [address] [place] [phone] Simona Woods, SHARON [address] [place] [address] Social History Tobacco Use Types Packs/Day Years [...] EST Office Visit [facility] [address] [phone] Marco A Greene DO [address] [place], [place] [id number] documented as of this encounter Visit Diagnoses Not on filedocumented in this encounter Care Teams Customer Service Driver Relationship Specialty Start Date End Date Baljit Watts MD PCP - General Family Medicine 10/20/22 documented as of this encounter
--- OUTSIDE RECORDS SUMMARY | 2025-01-11 20:39 | XMS_ITS | Encounter Summary ---
Author Organization [facility] Address [address] [place] [address] Care Team Providers Care Print Line Inspector Name Role Phone Link, Baljit PRETTY Primary Care Provider Encounter Details Date Type Department Care Team (Late st Contact Info) Description 03/10/2023 Clinisync Result Encounter [facility] External Department Unsolicited Marco A Greene DO [address] [place], [facility] Social History Tobacco Use Types Packs/Day [...] Visit [facility] [address] [place] [phone] Marco A Greene DO [address], [facility] documented as of this encounter Procedures [...] Marco A Greene DO [facility] OB BPP WO NON-STRESS (03/10/2023 10:23 AM EST) Anatomical Region Laterality Modality Other 03/10/2023 10:2 3 AM EST Narrative 03/10/2023 10:23 [place] [address] Ultrasound Report Signed Patient: ANAND HERRERA MR#: [id number] : 2000 Acct:[id number] Age/Sex: 22 / F ADM Date: Loc: [facility] Attending Dr: Anita Graves M.D. Ordering Physician: Marco A Greene D.O. Date of Service: 03/10/23 Procedure(s): US OB BPP wo non-stress Accession Number(s): [id number] cc: Marco A Greene D.O.; Physician,Non-Staff [facility] [address] [address] Patient Name: ANAND HERRERA MRN: [id number] date: 2000 Sex: F Assigned Patient Location: [facility] Current Patient Location: [facility] Accession/Order Number: [id number] Exam Date: 03/10/2023 08:45 Report Date: 03/10/2023 [...] Signed By: 03/10/23 1026 DD/ 1023 TD/TT: Weight Reducing Technician: Procedure Note Radiology, Radiologist, MD - 03/10/2023 [place] [address] Ultrasound Report Signed Patient: ANAND HERRERA EMR#: [id number] : 2000Acct:[id number] Age/Sex: 22 / FADM Date: Loc: [facility] [address]: Anita Graves M.D. Ordering Physician: Marco A Greene D.O. Date of Service: 03/10/23 Procedure(s): US OB BPP wo non-stress Accession Number(s): [id number] cc: Marco A Greene D.O.; Physician,Non-Staff [facility] [address] [address] Patient Name: ANAND HERRERA MRN: [id number] date: 2000 Sex: F Assigned Patient Location: [facility] Current Patient Location: [facility] Accession/Order Number: [id number] Exam Date: 03/10/2023 08:45 Report Date: 03/10/2023 [...] M.D. Signed By:03/10/23 1026 DD/ 1023 TD/TT: Weight Reducing Technician: us Marco A Greene DO [facility] Final Result documented in this encounter Visit Diagnoses Not on filedocumented in this encounter Care Teams Print Line Inspector Relationship Specialty Start Date End Date Baljit Watts MD PCP - General Family Medicine 10/20/22 documented as of this encounter
--- OUTSIDE RECORDS SUMMARY | 2025-01-11 20:39 | XMS_ITS | Clinical Summary ---
Author Organization [facility] Address [address] [place] [id number] Care Team Providers Care Room Service Clerk Name Role Phone Link, Baljit Gilbert Primary Care Provider [phone] Allergies No known active allergies Medications predniSONE [...] HPV Vaccine Completed 06/21/2012, 01/25, 12/08/2011 Insurance [employer] Care Teams Room Service Clerk Relationship Specialty Start Date End Date Link, Baljit Gilbert DO [address] [place] [address] PCP - General Family Medicine 11/07/21
--- OUTSIDE RECORDS SUMMARY | 2025-01-11 20:39 | XMS_ITS | CCD ---
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 Marco A Zavaleta Referring Unavail able UNKNOWN, PCP Primary Care Unavailable UNKNOWN, PCP Primary Care Unavailable Jc, Dr. Marco A Zavaleta Referring Unavail able Dr. Jess Feldman Attending Unav ailable Baljit Watts MD Primary Care Provider [phone] Kathy Mccall Primary Care Physician [phone] Amos Espinoza Attending Unavailable Baljit Watts MD Primary Care Provider Unavailable Primary Care Provider Unavailjoão e MARCO A GREENE Attending Unavailable JCMARCO A COCHRAN Attending Unavailable MARCO A GREENE [...] Ordered Start: 10-31-2021 take 1 capsule by [facility] every twelve hours amoxicillin 500 [...] Date: 01/31/23 Status: Ordered polyethylene glycol 3350 87427 mg powder for oral solution (1 source) [...] mouth daily 30 tablet 0 04/28/2020 Active fqv99-okia-tdnhw acid (PreNata) 29 mg iron- 1 mg tablet,chewable (1 source) ioz12-mvgz-nkaxk acid (PreNata) 29 mg iron- 1 mg [...] tab(s), Refill(s) 0, [facility]/pharmacy #[id number], 165, cm, [...] trimester] Onset: 09-26-2022 Episodic Other complications of (4 sources) History of pre-eclampsia; Translations: [Supervision of with other poor reproductive or obstetric history, unspecified trimester] 10-25-2024 Episodic Other complications of (2 sources) size does not accord with dates; Translations: [Uterine size-date discrepancy, second trimester] 11-22-2024 Episodic Other congenital anomalies (8 sources) Amniotic adhesion; Translations: [Other congenital malformations [...] 08-29-2024 Episodic Other and delivery including normal (20 sources) Encounter for supervision of other normal [...] [35 weeks gestation of ] 01-04-2025 Episodic Residual codes; unclassified (2 sources) Gestation period, 36 weeks; Translations: [36 weeks gestation of ] 01-11-2025 Episodic Superficial injury; contusion (2 sources) Contusion [...] Range Facility Urinalysis macro (dipstick) panel (U)on 01-11-2025 Bilirubin, UA Negative Negative - 4(70) +++ mg/dL [facility] Blood, UA Positive Negative - 50 Gabriel/mcL [facility] Clarity, UA Clear [facility] Color, UA Yellow [facility] Glucose, UA Negative Negative - 2000(110) ++++ mg/dL [facility] Interpretation and review of laboratory results Abnormal [facility] Ketones, UA Negative Negative - 160(16) ++++ mg/dL [facility] Leukocytes, UA Positive Negative - 500+++ Sebastián/mcL [facility] Nitrite, UA Negative Negative - Positive [facility] pH, UA 7 5 - 9 [facility] Protein, UA Negative Negative - 1999(20) ++++ mg/dL [facility] Spec Grav, UA 1.005 1 - 1.03 [facility] Urobilinogen, UA 1.0 0.2 - 12 mg/dL [facility] Urinalysis macro (dipstick) panel (U)on 01-04-2025 Bilirubin, UA Negative Negative - 4(70) +++ mg/dL [facility] Blood, UA Positive Negative - 50 Gabriel/mcL [facility] Comment on above: 1+ Clarity, UA Clear [facility] Color, UA Yellow [facility] Glucose, UA Negative Negative - 1999(110) ++++ mg/dL [facility] Interpretation and review of laboratory results Abnormal [facility] Ketones, UA Negative Negative - 160(16) ++++ mg/dL [facility] Leukocytes, UA Negative Negative - 500+++ Sebastián/mcL [facility] Nitrite, UA Negative Negative - Positive [facility] pH, UA 7.5 5 - 9 [facility] Protein, UA Negative Negative - 1999(20) ++++ mg/dL [facility] Spec Grav, UA 1.005 1 - 1.03 [facility] Urobilinogen, UA 0.2 0.2 - 12 mg/dL [facility] US OB BPP W NON-STRESS on 12-29-2024 [place] [address] Ultrasound Report Signed Patient: ANAND HERRERA MR#: [id number] : 2000 Acct:[id number] Age/Sex: 24 / F ADM Date: 12/29/24 Loc: US Attending Dr: Marco A Greene D.O. Ordering Physician: Marco A Greene D.O. Date of Service: 12/29/24 Procedure(s): US OB BPP w non-stress Accession Number(s): [id number] cc: Marco A Greene D.O.; Physician,Non-Staff M.DIrvin The [place] [id number] Patient Name: ANAND HERRERA MRN: [facility]:[id number] date: 2000 Sex: F Assigned Patient Location: [facility] Current Patient Location: Accession/Order Number: [id number] Exam Date: 12/29/2024 17:15 Report Date: 12/29/2024 [...] Bo M.D. 12/29/2024 7:37 PM Dictation Location: [place] [address] Electronically authenticated by: [id number] Y Date: 12/29/2024 19:37 Dictated By: Charles Bo D.O. Signed By: 12/29/241939 DD/ 36 TD/TT: Manufacturing Director: [facility] Radiology, Radiologist, MD - 12/29/2024 [place] [address] Ultrasound Report Signed Patient: ANAND HERRERA MR#: [id number] : 2000 Acct:[id number] Age/Sex: 24 / F ADM Date: 12/29/24 Loc: US Attending Dr: Marco A Greene D.O. Ordering Physician: Marco A Greene D.O. Date of Service: 12/29/24 Procedure(s): US OB BPP w non-stress Accession Number(s): [id number] cc: Marco A Greene D.O.; Physician,Non-Staff [place] The [address] [address] Patient Name: ANAND HERRERA MRN: [facility]:[id number] date: 2000 Sex: F Assigned Patient Location: [facility] Current Patient Location: Accession/Order Number: [id number] Exam Date: 12/29/2024 17:15 Report Date: 12/29/2024 [...] Bo M.D. 12/29/2024 7:37 PM Dictation Location: [employer] Electronically authenticated by: [id number] Y Date: 12/29/2024 19:37 Dictated By: Charles Bo D.O. Signed By: 12/29/241939 DD/ 36 TD/TT: [facility] Study observation (narrative) [facility] US OB BPP W NON-STRESS Ordered By: Radiologist Radiology on 12-29-2024 [facility] Work Phone: US OB 14+ WEEKS ANATOMY [...] II, MD, PHD at 15-Dec-2024 08:04:22 AM [facility] Normal Not Available Comment on above: Order [...] UA Negative Negative - 4(70) +++ mg/dL [facility] Blood, UA Negative Negative - 50 Gabriel/mcL [facility] Clarity, UA Clear [facility] Color, UA Yellow [facility] Glucose, UA Negative Negative - 1999(110) ++++ mg/dL [facility] Interpretation and review of laboratory results Normal [facility] Ketones, UA Negative Negative - 160(16) ++++ mg/dL [facility] Leukocytes, UA Negative Negative - 500+++ Sebastián/mcL [facility] Nitrite, UA Negative Negative - Positive [facility] pH, UA 6.5 5 - 9 [facility] Protein, UA Negative Negative - 1999(20) ++++ mg/dL [facility] Spec Grav, UA 1.005 1 - 1.03 [facility] Urobilinogen, UA 1.0 0.2 - 12 mg/dL [facility] US OB INCOMPLETE ANATOMYon 0 10-31-2024 [place] [address] Ultrasound Report Signed Patient: ANAND HERRERA MR#: [id number] : 2000 Acct:[id number] Age/Sex: 24 / F ADM Date: 10/31/24 Loc: US Attending Dr: Simona Currie Ordering Physician: Simona Currie Date of Service: 10/31/24 Procedure(s): US OB incomplete anatomy Accession Number(s): [id number] cc: Simona Currie; Physician,Non-Staff M.DIrvin The [place] [id number] Patient Name: ANAND HERRERA MRN: [facility]:[id number] date: 2000 Sex: F Assigned Patient Location: US Current Patient Location: US Accession/Order Number: [id number] Exam Date: 10/31/2024 09:53 Report Date: 10/31/2024 [...] normal. The spine was surveyed by the deputy clerk and no abnormalities were reported. US/US OB incomplete anatomy IMPRESSION: UNREMARKABLE SPINE ASSESSMENT. Impression dictated by: Hillary Barth M.D. 10/31/2024 9:54 AM Dictation Location: [place] [address] Electronically authenticated by: [id number] Y Date: 10/31/2024 09:54 Dictated By: Hillary Barth M.D. Signed By: 10/31/24 0957 DD/ 0954 TD/TT: Manufacturing Director: [facility] Radiology, Radiologist, - 10/31/2024 [place] [address] Ultrasound Report Signed Patient: ANAND HERRERA MR#: [id number] : 2000 Acct:[id number] Age/Sex: 24 / F ADM Date: 10/31/24 Loc: US Attending Dr: Simona Currie Ordering Physician: Simona Currie Date of Service: 10/31/24 Procedure(s): US OB incomplete anatomy Accession Number(s): [id number] cc: Simona Currie; Physician,Non-Staff [place] [facility] [place] [address] Patient Name: ANAND HERRERA MRN: [facility]:[id number] date: 2000 Sex: F Assigned Patient Location: US Current Patient Location: US Accession/Order Number: [id number] Exam Date: 10/31/2024 09:53 Report Date: 10/31/2024 [...] normal. The spine was surveyed by the deputy clerk and no abnormalities were reported. US/US OB incomplete anatomy IMPRESSION: UNREMARKABLE SPINE ASSESSMENT. Impression dictated by: Hillary Barth M.D. 10/31/2024 9:54 AM Dictation Location: [place] [address] Electronically authenticated by: [id number] Y Date: 10/31/2024 09:54 Dictated By: Hillary Barth M.D. Signed By: 10/31/24 0957 DD/ 0954 TD/TT: Manufacturing Director: [facility] Radiology Study observation (narrative) [facility] US OB INCOMPLETE ANATOMYOrde red By: Radiologist Radiology on 10-31-2024 [facility] Work Phone: Urinalysis macro (dipstick) panel (U)on 10-25-2024 Bilirubin, UA Negative Negative - 4(70) +++ mg/dL [facility] Blood, UA Negative Negative - 50 Gabriel/mcL [facility] Clarity, UA Clear [facility] Color, UA Yellow [facility] Glucose, UA Negative Negative - 2000(110) ++++ mg/dL [facility] Interpretation and review of laboratory results Normal [facility] Ketones, UA Negative Negative - 160(16) ++++ mg/dL [facility] Leukocytes, UA Negative Negative - 500+++ Sebastián/mcL [facility] Nitrite, UA Negative Negative - Positive [facility] pH, UA 6.5 5 - 9 [facility] Protein, UA Negative Negative - 2000(20) ++++ mg/dL [facility] Spec Grav, UA 1.02 1 - 1.03 [facility] Urobilinogen, UA 0.2 0.2 - 12 mg/dL [facility] RECURRENT VAGINITIS (HTRX)on 09-29-2024 ATOPOBIUM VAGINAE 0 [facility] ATOPOBIUM VAGINAE Not detected [facility] BV[facility] 2,3 (BACTERIAL VAGINOSIS ASSOCIATED BACTERIA 2, 3); MOBILUNCUS SPP 0 [facility] BVAB 2,3 (BACTERIAL VAGINOSIS ASSOCIATED BACTERIA 2, 3); MOBILUNCUS SPP Not detected [facility] EBONIE ALBICANS, PARAPSILOSIS, TROPICALIS 27.336 Abnormal [facility] EBONIE ALBICANS, PARAPSILOSIS, TROPICALIS Detected Abnormal [facility] EBONIE GLABRATA 0 [facility] EBONIE GLABRATA Not detected [facility] EBONIE KRUSEI 0 [facility] EBONIE KRUSEI Not detected [facility] CHLAMYDIA TRACHOMATIS 0 [facility] CHLAMYDIA TRACHOMATIS Not detected N [facility] GARDNERELLA VAGINALIS [address] [facility] GARDNERELLA VAGINALIS Not detected N [facility] Interpretation and review of laboratory results Abnormal [facility] MEGASPHAERA (TYPES 1, 2) 0 [facility] MEGASPHAERA (TYPES 1, 2) Not detected [facility] MYCOPLASMA GENITALIUM 0 [facility] MYCOPLASMA GENITALIUM Not detected N [facility] NEISSERIA GONORRHOEAE 0 [facility] NEISSERIA GONORRHOEAE Not detected N [facility] TRICHOMONAS VAGINALIS 0 [facility] TRICHOMONAS VAGINALIS Not detected N [facility] Healthcare Urinalysis macro (dipstick) panel (U)on 09-27-2024 Bilirubin, UA Negative Negative - 4(70) +++ mg/dL [facility] Blood, UA Negative Negative - 50 Gabriel/mcL [facility] Clarity, UA Clear [facility] Color, UA Yellow [facility] Glucose, UA Negative Negative - 1999(110) ++++ mg/dL [facility] Interpretation and review of laboratory results Normal [facility] Ketones, UA Negative Negative - 160(16) ++++ mg/dL [facility] Leukocytes, UA Negative Negative - 500+++ Sebastián/mcL [facility] Nitrite, UA Negative Negative - Positive [facility] pH, UA 7 5 - 9 [facility] Protein, UA Negative Negative - 1999(20) ++++ mg/dL [facility] Spec Grav, UA 1.015 1 - 1.03 [facility] Urobilinogen, UA 0.2 0.2 - 12 mg/dL [facility] US for pregnancyon Interpreted by: Doretha [...] EFW (oz) 4 oz EFW by: Hadlock (CEG-AH-XA-FL) Head / Face / Neck Cephalic index 0.71 <1% Nicolaides Extremities / Bony Struc FL / BPD 0.54 14% Hadlock FL / HC 0.14 5% Hadlock FL / AC 0.16 1% Hadlock Other Structures FHR 150 bpm Anatomy Heart: Normal Faribault and Situs. Stomach: Visible, with correct situs. Arms: Both Upper Extremities Seen. Legs: Both Lower Extremities Seen. The following structures appear normal: Cranium. Head size. Head shape. Brain. Right choroid plexus. Left choroid plexus. Midline falx. Thalami. Cerebellum. Face. Profile. Cardiac axis. 4-chamber view. 3-uldofp-keynves view. Thorax. Diaphragm. Abdominal wall. Cord insertion. [...] Suspect Anomaly History ====== General History Smoking:No Xtctpu112 cm Height (ft)5 ft Height (in)6 in Previous Outcomes Gravida3 Para2 Children born living ?37w1 Pregnancies delivered at term (T)1 Pregnancies delivered (P)1 Living children (L)2 Children born living <37w1 Other:Previous Section x2 Maternal Assessment Uxdffg046 cm Height (ft)5 ft Height (in)6 in Iyjwtn83 kg Weight (lb)155 lb Weight gain0 kg Weight gain (lb)0 lb BMI25.02 kg/m Physical Exam Initial weight (lb)155 lb ========= Prakash . Number of fetuses: 1 Dating ====== Prior assessment by:per outside ultrasound GA by prior kkucvhulaf24 w + 6 d OTF by prior [...] 24% Hadlock HC / AC1.19 31% Hadlock ART369 g14w 4d 35% Hadlock EFW (lb)0 lb EFW (oz)4 oz EFW by:Hadlock (IYO-HD-ZI-FL) Head / Face / Neck Cephalic index0.71 <1% Nicolaides Extremities / Bony Struc FL / BPD0.54 14% Hadlock FL / HC0.14 5% Hadlock FL / AC0.16 1% Hadlock Other Structures AXY729 bpm Anatomy Heart: Normal [place] and Situs. Stomach: Visible, with correct situs. Arms: Both Upper Extremities Seen. Legs: Both Lower Extremities Seen. The following structures appear normal: Cranium. Head size. Head shape. Brain. Right choroid plexus. Left choroid plexus. Midline falx. Thalami. Cerebellum. Face. Profile. Cardiac axis. 4-chamber view. 9-rbwhiv-cquwfwx view. Thorax. Diaphragm. Abdominal wall. Cord insertion. [...] Suboptimal view: limited by early gestational age [facility] Work Phone: Source Facility: [facility] Interpreted by: Doretha Marie Indication ======== Suspect [...] EFW (oz) 4 oz EFW by: Hadlock (RYO-KI-LQ-FL) Head / Face / Neck Cephalic index 0.71 <1% Nicolaides Extremities / Bony Struc FL / BPD 0.54 14% Hadlock FL / HC 0.14 5% Hadlock FL / AC 0.16 1% Hadlock Other Structures FHR 150 bpm Anatomy Heart: Normal Faribault and Situs. Stomach: Visible, with correct situs. Arms: Both Upper Extremities Seen. Legs: Both Lower Extremities Seen. The following structures appear normal: Cranium. Head size. Head shape. Brain. Right choroid plexus. Left choroid plexus. Midline falx. Thalami. Cerebellum. Face. Profile. Cardiac axis. 4-chamber view. 4-ksgxpz-boiwqpf view. Thorax. Diaphragm. Abdominal wall. Cord insertion. [...] age Radiology, Radiologist, - 08/16/2024 Source Facility: [facility] Interpreted by: Doretha Marie Indication ======== Suspect [...] EFW (oz) 4 oz EFW by: Hadlock (ZKK-OU-TC-FL) Head / Face / Neck Cephalic index 0.71 <1% Nicolaides Extremities / Bony Struc FL / BPD 0.54 14% Hadlock FL / HC 0.14 5% Hadlock FL / AC 0.16 1% Hadlock Other Structures FHR 150 bpm Anatomy Heart: Normal [place]ib[place] and Situs. Stomach: Visible, with correct situs. Arms: Both Upper Extremities Seen. Legs: Both Lower Extremities Seen. The following structures appear normal: Cranium. Head size. Head shape. Brain. Right choroid plexus. Left choroid plexus. Midline falx. Thalami. Cerebellum. Face. Profile. Cardiac axis. 4-chamber view. 3-bbxbyn-vadnupg view. Thorax. Diaphragm. Abdominal wall. Cord insertion. [...] Suboptimal view: limited by early gestational age [facility] Radiology Study observation (narrative) [facility] Work Phone: Radiology Study observation (narrative) [facility] US for pregnancyOrdered By: Doretha Marie on 08-16-2024 [facility] Work Phone: US for pregnancyOrdered By: Radiologist Radiology on 08-16-2024 [facility] Work Phone: Urinalysis macro (dipstick) panel (U)on 08-01-2024 Bilirubin, UA Negative Negative - 4(70) +++ mg/dL [facility] Blood, UA Negative Negative - 50 Gabriel/mcL [facility] Clarity, UA Clear [facility] Color, UA Yellow [facility] Glucose, UA Negative Negative - 2000(110) ++++ mg/dL [facility] Interpretation and review of laboratory results Normal [facility] Ketones, UA Negative Negative - 160(16) ++++ mg/dL [facility] Leukocytes, UA Negative Negative - 500+++ Sebastián/mcL [facility] Nitrite, UA Negative Negative - Positive [facility] pH, UA 7 5 - 9 [facility] Protein, UA Negative Negative - 2000(20) ++++ mg/dL [facility] Spec Grav, UA 1.02 1 - 1.03 [facility] Urobilinogen, UA 0.2 0.2 - 12 mg/dL [facility] BOX TESTon 07-07-2024 BOX TEST SENT OUT [facility] BOX1 [facility] BOX2 07/07/24 [facility] BOX [facility] US OB TRANSVAGINALon 025 US OB [...] II, MD, PHD at 02-Jul-2024 09:14:34 AM [facility] Normal Not Available Comment on above: Order Comment: US OB TRANSVAGINAL No LMP recorded. ED Clinical Summaryon 2023 ED Clinical Summary ED Clinical Summary [address] [address] ED Clinical Summary Person Information Name: ANAND HERRERA [place] Age: 23 Years : 2000 Sex: Female Language: Mauritian PCP: Kathy Mccall DO Marital Status: Single Phone: [phone] Visit Id: Visit Reason: Ear pain; RIGHT [...] 04/19/2024 01:34:08 [address] [facility] [address] [address] [facility] [id number] PHYS DOC NOTES: MEDICAL INFORMATION: Prescriptions Given: [...] Earache, Adult Follow up: With: Address: When: Kathypaul [place], [facility], [address] [address] [facility] (1) In 3 days 04/22/2024 Comments: Return to the emergency room if your pain recurs or any new symptoms. DIAGNOSIS: 1:Ear pain, right; 2:Upper respiratory infection Normal [facility] ED Note-Physicianon 04-19-20 ED Note-Physician ED [...] and Complexity of Problems Differential Diagnosis: [] [facility] Data External documents reviewed: [] My EKG [...] home. She was instructed to take decongestion wtjm-upo-ypaqdzx. 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 Living situation: Home/Independent. Alcohol abuse in household: No. Substance abuse in household: No. Smoker in household: No., (more content not included)... Normal [facility] Comment on above: Result Comment: Elec tronically Signed By: Olga Davison, Amos Gaona\.br\Date and Time Signed: 04/19/24 03:09 EST ED Patient Summaryon 024 ED Patient Summary ED Patient Summary [address] [address] Patient Discharge Instructions Person Information Name: ANAND HERRERA Age: 23 Years Arrival Date: 04/19/2024 01:04:22 Discharge Diagnosis: 1:Ear pain, right; 2:Upper respiratory infection Primary Care Physician: Kathy Mccall DO Provider Information Primary Provider: Amos Espinoza M.D. Advanced Cotton Stripper:None The exam and treatment you received in the Emergency Department were for an urgent problem and are not intended as complete care. It is important that you follow up with a doctor, nurse practitioner, or physician???s medical assistant secretary for ongoing care. If your symptoms become worse or you do not improve as expected and you are unable to reach your usual health care provider, you should return to the Emergency Department. We are available 24 hours a day. ANAND HERRERA has been given the following list of patient education materials, prescriptions and follow-up instructions: Follow-up Instructions: With: Address: When: Kathy Mccall [address] [place] [address], [facility], [address] [address] Business (1) In 3 days [...] opioids can be used to help relieve sasectil-vg-svweps pain and are often prescribed following a [...] to learn (more content not included)... Normal [facility] IGP,APTIMA HPV,AGE GDLNon AGE GDLN ACOG TESTING Note . [facility] Comment on above: TESTS RESULT FLAG UN ITS REF RANGE LAB Clinician Provided Cytology Information Source.............Cervix;Endocervix No. of containers..01 ThinPrep Vial Age Algo ACOG Magdalene... FLAG LEGEND: L-Low Normal,H-High Normal,LL-Alert Low,HH-Alert High <-Panic Low,>-Panic High,A-Abnormal,AA-Critical Abnormal Performed at: 01 =G [facility] [place] [address] Clara Castro MD, IGP, RFX APTIMA HPV ASCU Note . [facility] Comment on above: TESTS RESULT FLAG U NITS REF RANGE LAB DIAGNOSIS: 02 NEGATIVE FOR INTRAEPITHELIAL LESION OR MALIGNANCY. Specimen adequacy: 02 Satisfactory for evaluation. Endocervical and/or squamous metaplastic cells (endocervical component) are present. Performed by: 02 Simona Platt, Toolroom Checker ([facility]) . 02 Note: Note 02 The Pap smear is a screening test designed to aid in the detection of premalignant and malignant conditions of the uterine cervix. It is not a diagnostic procedure and should not be used as the sole means of detecting cervical cancer. Both false-positive and false-negative reports do occur. Test Methodology: Note 02 The [employer](R) Admissions Evaluator was unable to read this specimen. Therefore a manual review was performed. FLAG LEGEND: L-Low Normal,H-High Normal,LL-Alert Low,HH-Alert High <-Panic Low,>-Panic High,A-Abnormal,AA-Critical Abnormal Performed at: 02 [facility] [address] [place] [address] Clara Castro MD, . 02 The HPV DNA reflex criteria were not met with this specimen result therefore, no HPV testing was performed. The HPV DNA reflex criteria were not met with this specimen result therefore, no HPV testing was performed. Performed at: =G - [facility] [address], [place] [id number] Founder President And Ceo: Clara Castro MD, Phone: [phone] Performed at: [address] [place], [place] [id number] Founder President And Ceo: Clara Castro MD, Phone: [phone] BRUSH-SPATULA CERVIX ENDOCERVIX [facility] OB Completed scan + Detailed [...] EFW (oz) 10 oz EFW by: Hadlock (XFL-DM-KR-FL) Extended Superannuation Funds Manager 7.6 mm CM 4.4 mm 35% Nicolaides [...] Normal LVOT view: Normal 3-vessel view: Normal 4-txwzon-ckcvsyn view: Normal Heart / Thorax Situs: situs [...] know sex (more content not included)... Normal [facility] OB NT (Nuchal Translucency)o n 09-26-2022 OB [...] gestational sac with a live fetus - [place] rump length is consistent with given OTF [...] Extended Nasal bone: present Anatomy Heart: Normal [place] and Situs. Stomach: Visible, with correct situs. [...] Sufficient Electronically signed by: JESS FELDMAN MD [facility] B SURFACE ANTIGEN SCREEN on 09-05-2022 HBsAg Screen Negative Normal Negative [facility] Comment on above: Performed By: #### H BSANS #### [facility] [address] [place] [address] Dr. Stoney Rodriguez HEPATITIS C VIRUS AB W/ REFL EX QUANTon 09-05-2022 HCV AB Non-Reactive Normal Non Reactive [facility] Comment on above: Performed By: #### H CVPCRR #### [facility] [address] [place] [address] Dr. Stoney Rodriguez Interpretation: Comment Normal [facility] Comment on above: Result Comment: Not infected with HCV unless early or acute infection is suspected (which may be delayed in an immunocompromised individual), or other evidence exists to indicate HCV infection. Performed By: #### H CVPCRR #### [facility] [address] [place] [address] Dr. Stoney Rodriguez HIV 1 AND 2 WITH REFLEXon HIV Screen 4th Generation wRfx Non-Reactive Normal Non Reactive [facility] Comment on above: Result Comment: HIV Negative HIV-1/HIV-2 antibodies and HIV-1 p24 antigen were NOT detected. There is no laboratory evidence of HIV infection. Performed By: #### T NS #### [facility] [address] [place] [address] Dr. Stoney Rodriguez RPR QUANTon 09-05-2022 Rapid Plasma Reagin, Quant Non-Reactive Normal NonRea<1:1 [facility] Comment on above: Result Comment: Plea se Note: This test does not meet current guidelines for screening and diagnosis of syphilis. This test is intended for following treatment response in patients being treated for syphilis infection. To screen for syphilis infection, a reflex cascade that includes both RPR and a treponema-specific assay should be utilized, such as Treponema pallidum (Syphilis) Screening [place] (888629) or Rapid Plasma Reagin (RPR) Test With Reflex to Quantitative RPR and Confirmatory Treponema pallidum Antibodies (297970). Performed By: #### R PRQ #### [facility] [address] [place] [address] Dr. Stoney Rodriguez RUBELLA AB IGGon 09-05-2022 Rubella Antibodies, IgG 11.40 index Normal Immune >0.99 [facility] Comment on above: Result Comment: Non- immune <0.90 Equivocal 0.90 - 0.99 Immune >0.99 Performed By: #### R UBIGG #### [facility] [address] [place] [address] Dr. Stoney Rodriguez BOX TEST SENT OUTon 09-05-19 23 SENT TO REF LAB 09/04/[address] [facility] Comment on above: Performed By: #### B OX #### [facility] [address] [place] [address] Dr. Stoney Rodriguez CBC AUTO DIFFon 09-04-2022 BASO # 0.0 103/ul Normal 0.0-0.1 [facility] Comment on above: Performed By: #### C BC #### [facility] [address] [place] [address] Dr. Stoney Rodriguez Basophils/100 WBC (Bld) 0.4 % Normal 0.2-2.0 [facility] Comment on above: Performed By: #### C BC #### [facility] [address] [place] [address] Dr. Stoney Rodriguez EO # 0.1 103/ul Normal 0.0-0.7 [facility] Comment on above: Performed By: #### C BC #### [facility] [address] [place] [address] Dr. Stoney Rodriguez Eosinophils/100 WBC (Bld) 0.7 % Critically low 0.9-7.0 [facility] Comment on above: Performed By: #### C BC #### [facility] [address] [place] [address] Dr. Stoney Rodriguez Erythrocyte distribution width (RBC) [Ratio] 14.5 % Normal 11.0-15.0 [facility] Comment on above: Performed By: #### C BC #### [facility] [address] [place] [address] Dr. Stoney Rodriguez Hematocrit (Bld) [Volume fraction] 36.7 % Normal 36.0-48.0 [facility] Comment on above: Performed By: #### C BC #### [facility] [address] [address] [address] Stoney Rodriguez Hemoglobin (Bld) [Mass/Vol] 11.9 g/dL Critically low 12.0-16.0 [facility] Comment on above: Performed By: #### C BC #### [facility] [address] [address] [address] Stoney Rodriguez IG # 0.03 10e3/ul Normal 0.00-0.03 [facility] Comment on above: Performed By: #### C BC #### [facility] [address] [place] [address] Dr. Stoney Rodriguez IG % 0.4 % Normal 0.0-0.5 [facility] Comment on above: Performed By: #### C BC #### [facility] [address] [place] [address] Dr. Stoney Rodriguez LYMPH # 2.0 103/ul Normal 1.2-3.8 [facility] Comment on above: Performed By: #### C BC #### [facility] [address] [place] [address] Dr. Stoney Rodriguez Lymphocytes/100 WBC (Bld) 23.3 % Normal 20.5-60.0 [facility] Comment on above: Performed By: #### C BC #### [facility] [address] [place] [address] Dr. Stoney Rodriguez MANUAL DIFF REQ NO Normal [facility] Comment on above: Performed By: #### C BC #### [facility] [address] [place] [address] Dr. Stoney Rodriguez MCH (RBC) [Entitic mass] 28.7 pg Normal 26.7-34.0 [facility] Comment on above: Performed By: #### C BC #### [facility] [address] [place] [address] Dr. Stoney Rodriguez MCHC (RBC) [Mass/Vol] 32.4 g/dL Normal 29.9-35.2 [facility] Comment on above: Performed By: #### C BC #### [facility] [address] [address] [address] Stoney Rodriguez MCV (RBC) [Entitic vol] 88.6 fL Normal 81.0-99.0 [facility] Comment on above: Performed By: #### C BC #### [facility] [address] [address] [address] Stoney Rodriguez MONO # 0.5 103/ul Normal 0.3-0.8 [facility] Comment on above: Performed By: #### C BC #### [facility] [address] [address] [address] Stoney Rodriguez Monocytes/100 WBC (Bld) 6.2 % Normal 1.7-12.0 [facility] Comment on above: Performed By: #### C BC #### [facility] [address] [address] [address] Stoney Rodriguez NEUT # 5.9 103/ul Normal 1.4-6.5 [facility] Comment on above: Performed By: #### C BC #### [facility] [address] [address] [address] Stoney Rodriguez Neutrophils/100 WBC (Bld) 69.0 % Normal 43.0-75.0 [facility] Comment on above: Performed By: #### C BC #### [facility] [address] [address] [address] Stoney Rodriguez Platelet mean volume (Bld) [Entitic vol] 9.7 fL Normal 9.5-13.[address] [facility] Comment on above: Performed By: #### C BC #### [facility] [address] [address] [address] Stnoey Rodriguez PLT 378 103/ul Normal 150-[address] [facility] Comment on above: Performed By: #### C BC #### [facility] [address] [address] [address] Stoney Rodriguez RBC 4.14 106/ul Critically low 4.20-5.[address] [facility] Comment on above: Performed By: #### C BC #### [facility] [address] [address] [address] Stoney Rodriguez WBC 8.5 103/ul Normal 4.0-11.0 [facility] Comment on above: Performed By: #### C BC #### [facility] [address] [address] [address] Stoney Rodriguez CULTURE URINEon 09-04-2022 CULTURE URINE Culture Observations : NO GROWTH. Normal [facility] Comment on above: Performed By: #### U RCX #### [facility] [address] [place] [address] Dr. Stoney Rodriguez GLYCOHEMOGLOBIN A1Con 2022 ADA RECOMMENDATION SEE BELOW Normal [facility] Comment on above: Result Comment: ADA RECOMMENDED LIMIT 4.0 - 6.0 ADA THERAPEUTIC TARGET < 7.0 ACTION SUGGESTED > 7.0 Performed By: #### A 1C #### [facility] [address] [place] [address] Dr. Stoney Rodriguez Glucose [Mass/Vol] 94 mg/dL Normal [facility] Comment on above: Performed By: #### A 1C #### [facility] [address] [place] [address] Dr. Stoney Rodriguez HbA1c (Bld) [Mass fraction] 4.9 % Normal 4.5-6.2 [facility] Comment on above: Performed By: #### A 1C #### [facility] [address] [place] [address] Dr. Stoney Rodriguez TSHon 09-04-2022 TSH 0.653 uIU/mL Normal 0.358-3.740 [facility] Comment on above: Performed By: #### T SH #### [facility] [address] [place] [address] Dr. Stoney Rodriguez TYPE AND SCREENon 09-04-2022 TYPE AND SCREEN Negative Normal [facility] Comment on above: Performed By: #### T NS #### [facility] [address] [place] [address] Dr. Stoney Rodriguez US PREG TVon 08-14-2022 [...] by: BILLIE SMITH Date: 2022-08-14 16:07 Normal [facility] CHEMISTRYOrdered By: Ida Mcfarland on 12-19-2021 Anion gap [Moles/Vol] 11 mmol/L Normal 6 - 16 mEq/L [facility] Remisol Calcium [Mass/Vol] 8.9 mg/dL Normal 8.9 [...] rate/Area] mL/min/1.73 m2 Normal >=59mL/min/1 .73 m2 [facility] Chem S GFR/1.73 sq M.predicted among non-blacks MDRD (S/P/Bld) [Vol rate/Area] mL/min/1.73 m2 Normal >=59mL/min/1 .73 m2 [facility] S COAGULATIONOrdered By: Randall Mcfarland on [...] hCG Ql Negative (12/19/21 2:12 AM) Normal [facility] CULTURE URINEon 04-28-2020 CULTURE URINE [...] <= 1 S Amikacin(JAI) 4 S Normal [facility] Comment on above: Performed By: #### C /UR ####[address] [place] [address] [place], [place] [id number] Culture, Urineon 04-28-2020 Bacteria identified Cx Nom (U) 10,000-50,000 CFU/ml [place], [place] Bacteria identified Cx Nom (U) Normal urogenital praneeth present. Abnormal [place], [place] Bacteria identified Cx Nom (U) Escherichia coli Abnormal [place] Interpretation and review of laboratory results Abnormal [place] Test Performed by [address] [address] [place] Hemoglobinon 04-27-2020 Hemoglobin (Bld) [Mass/Vol] 7.1 g/dL Low 11.7-16.0 [facility] Comment on above: Performed By: #### H EMGB #### [address] [address] Hemoglobin (Bld) [Mass/Vol] 7.1 g/dL Low 11.7 - 16 g/dL [place] Interpretation and review of laboratory results Abnormal [place] Test Performed by [facility], [address] [place] [address] [place] Group B Strep Screen PCRon 1 2-31-2020 Group B Strep Screen PCR Group B [...] Methodology - Real Time PCR (Cepheid) Normal [facility] Comment on above: Performed By: #### G [facility] ####[facility] [place] [address] Group B Strep, PCRon 020 Group B Strep Screen PCR NEGATIVE Expected Result: Negative CDC guidelines for prevention of Group B Strep disease recommends collection of both vaginal and rectal specimens for optimal recovery of GBS. Methodology - Real Time PCR (Cepheid) [place] Test Performed by [facility], [address] [place] [address] [place], [place] Op Noteon 04-26-2020 Op Note PATIENT: [...] She also did have a TAP block. Precision Filer Hand: Dr. Benjamin. Replacement: 1500 cc of crystalloid. [...] 1500 cc of crystalloid. Diskriter Job ID: [id number] Zca Chowdhury MD DOD:04/26/2020 07:56 A JAKUB/kimmy DOT:04/26/2020 10:55 A Job Number: [id number] Document Number: [id number] cc: Zac Chowdhury MD [address] [place] [id number] Fariha Matos [address] [facility] [address] Normal [facility] C. Trachomatis / N. Gonorrho eae, DNA Probeon 04-25-2020 C. trachomatis DNA ARCHANA+probe Ql (Genital specimen) NOT Detected Chlamydia trachomatis Nucleic Acid NOT Detected by DNA Amplification using the Cepheid System. Culture is the only recommended test in medical-legal cases such as suspected child abuse or molestation. [place] N. gonorrhoeae DNA ARCHANA+probe Ql (Unsp spec) NOT Detected Neisseria gonorrhoeae Nucleic Acid NOT Detected by DNA Amplification using the Cepheid System. Culture is the only recommended test in medical-legal cases such as suspected child abuse or molestation. [place] Test Performed by [facility], [address] [place] [id number] [place] CBCon 04-25-2020 Erythrocyte distribution width (RBC) [Ratio] 18.2 % High 11.5 - 14.5 % [place] Hematocrit (Bld) [Volume fraction] 30.6 % Low 35 - 47 % [place] Hemoglobin (Bld) [Mass/Vol] 9.7 g/dL Low 11.7 - 16 g/dL [place] Interpretation and review of laboratory results Abnormal [place] MCH (RBC) [Entitic mass] 26.2 pg 26 - 34 pg [place] MCHC (RBC) [Mass/Vol] 31.9 % Low 32 - 36 % [place], [place] MCV (RBC) [Entitic vol] 82.2 fL 79 - 98 fL [place] Platelet mean volume (Bld) [Entitic vol] 8.1 fL 7.4 - 10.4 fL [place] Platelets (Bld) [#/Vol] 249 10*3/uL 140 - 440 10*3/uL [place] RBC (Bld) [#/Vol] 3.72 10*6/uL Low 3.8 - 5.2 10*6/uL [place] WBC (Bld) [#/Vol] 13.3 10*3/uL High 3.6 - 10.7 10*3/uL [place] Test Performed by [facility], [address] [place] [id number] [place] [address] CREATININE, RANDOM URINEon 1 Creatinine (U) [Mass/Vol] 66.8 mg/dL No Range [place] Chlamydia and GC PCR Panelon 04-25-2020 Chlamydia and GC PCR Panel Chlamydia trachomatis PCR --> Status: F NOT Detected Chlamydia trachomatis Nucleic Acid NOT Detected by DNA Amplification using the Aquirisheid System. Culture is the only recommended test [...] as suspected child abuse or molestation. Normal [facility] Comment on above: Performed By: #### C TNGP ####[facility], [place] Comp Metabolic Panelon 04-25 Calcium [Mass/Vol] 8.5 mg/dL Normal 8.4-10.4 [facility] Comment on above: Performed By: #### P T/AP, CMP3, HEMOG, FIBGN #### [facility] [address], [place] Glucose [Mass/Vol] 97 mg/dL Normal 70-100 [facility] Comment on above: Performed By: #### P T/AP, CMP3, HEMOG, FIBGN #### [facility] [address], [place] ALP [Catalytic activity/Vol] 114 U/L Normal 38-126 [facility] Comment on above: Result Comment: Slig htly hemolysed, interpret with caution. Performed By: #### P T/AP, CMP3, HEMOG, FIBGN #### [facility] [address], [place] ALT [Catalytic activity/Vol] 19 U/L Normal 0-34 [facility] Comment on above: Result Comment: The ALT test is performed by an updated assay method. Please note that the reference intervals have been changed and are now sex specific. Performed By: #### P T/AP, CMP3, HEMOG, FIBGN #### [facility] [address], [place] Anion Gap 6 Normal [facility] Comment on above: Performed By: #### P T/AP, CMP3, HEMOG, FIBGN #### [facility] [address], [place] AST [Catalytic activity/Vol] 39 U/L Normal 15-46 [facility] Comment on above: Result Comment: Slig htly hemolysed, interpret with caution. Performed By: #### P T/AP, CMP3, HEMOG, FIBGN #### [facility] [address], [place] Bilirubin [Mass/Vol] 0.5 mg/dL Normal 0.2-1.3 [facility] Comment on above: Performed By: #### P T/AP, CMP3, HEMOG, FIBGN #### [facility] [address], [place] CO2 [Moles/Vol] 20 mmol/L Low 22-30 [facility] Comment on above: Performed By: #### P T/AP, CMP3, HEMOG, FIBGN #### [address] [address] [place], [place] Creatinine [Mass/Vol] 0.63 mg/dL Normal 0.52-1.25 [facility] Comment on above: Performed By: #### P T/AP, CMP3, HEMOG, FIBGN #### [address] [address] [place], [place] eGFR OTHER > 90.0 Normal >60 [facility] Comment on above: Result Comment: KDIG O [...] #### P T/AP, CMP3, HEMOG, FIBGN #### [facility] [address], [place] GFR/1.73 sq M.predicted among blacks MDRD (S/P/Bld) [Vol rate/Area] mL/min/{1.73_m2} Normal >60 [facility] Comment on above: Performed By: #### P T/AP, CMP3, HEMOG, FIBGN #### [address] [address] [place] [address] Protein [Mass/Vol] 6.9 g/dL Normal 6.3-8.2 [facility] Comment on above: Performed By: #### P T/AP, CMP3, HEMOG, FIBGN #### [facility] [address], [place] Urea nitrogen [Mass/Vol] 14 mg/dL Normal 7-20 [facility] Comment on above: Performed By: #### P T/AP, CMP3, HEMOG, FIBGN #### [address] [address] [place], [place] Potassium [Moles/Vol] 4.3 mmol/L Normal 3.5-5.1 [facility] Comment on above: Result Comment: Slig htly hemolysed, interpret with caution. Performed By: #### P T/AP, CMP3, HEMOG, FIBGN #### [address] [address] [place], [place] Sodium [Moles/Vol] 134 mmol/L Low 135-145 [facility] Comment on above: Performed By: #### P T/AP, CMP3, HEMOG, FIBGN #### [address] [address] [place] [address] Albumin [Mass/Vol] 3.4 g/dL Low 3.5-5.0 [facility] Comment on above: Performed By: #### P T/AP, CMP3, HEMOG, FIBGN #### [address] [address] [place], [place] Chloride [Moles/Vol] 107 mmol/L Normal 98-107 [facility] Comment on above: Performed By: #### P T/AP, CMP3, HEMOG, FIBGN #### [address] [address] [place] [address] Comprehensive Metabolic Pane parag 04-25-2020 Albumin [Mass/Vol] 3.4 g/dL Low 3.5 - 5 g/dL [facility] [place] [place] ALP [Catalytic activity/Vol] 114 U/L 38 - 126 U/L [place] Comment on above: Slightly hemolysed, interpret with caution. ALT [Catalytic activity/Vol] 19 U/L 0 - 34 U/L [place] Comment on above: The ALT test is perf ormed by an updated assay method. Please note that the reference intervals have been changed and are now sex specific. Anion gap [Moles/Vol] 6 mmol/L [place], [place] AST [Catalytic activity/Vol] 39 U/L 15 - 46 U/L [place] Comment on above: Slightly hemolysed, interpret with caution. Bilirubin Ql (U) 0.5 mg/dL 0.2 - 1.3 mg/dL [place] Calcium [Mass/Vol] 8.5 mg/dL 8.4 - 10. 4 mg/dL [place] Chloride [Moles/Vol] 107 mmol/L 98 - 10 7 mmol/L [place] CO2 [Moles/Vol] 20 mmol/L Low 22 - 30 mmol/L [place] Creatinine [Mass/Vol] 0.63 mg/dL 0.52 - 1.25 mg/dL [place] EGFR IF NonAfrican Thai >90.0 >60 mL/min [place] Comment on above: KDIGO guidelines pro [...] MDRD (S/P/Bld) [Vol rate/Area] mL/min/{1.73_m2} >60 mL/min [place] Glucose [Mass/Vol] 97 mg/dL 70 - 100 mg/dL [place] Interpretation and review of laboratory results Abnormal [place] Potassium [Moles/Vol] 4.3 mmol/L 3.5 - 5.1 mmol/L [place] Comment on above: Slightly hemolysed, interpret with caution. Protein [Mass/Vol] 6.9 g/dL 6.3 - 8.2 g/dL [place] Sodium [Moles/Vol] 134 mmol/L Low 135 - 145 mmol/L [place] Urea nitrogen [Mass/Vol] 14 mg/dL 7 - 20 mg/dL [place] Creatinine, Ur Randomon 03-29 Creatinine, Ur Random 66.8 mg/dL Normal No Range [facility] Comment on above: Performed By: #### C RTUR, TPUR, MAT #### [address] [address] [place] [place], [place] Fibrinogenon 04-25-2020 Fibrinogen 390 mg/dL Normal 200-400 [place], [place] Comment on above: Performed By: #### P T/AP, CMP3, HEMOG, FIBGN #### [address] [address] [place], [place] Hemogramon 04-25-2020 Erythrocyte distribution width (RBC) [Ratio] 18.2 % High 11.5-14.5 [facility] Comment on above: Performed By: #### P T/AP, CMP3, HEMOG, FIBGN #### [address] [address] [place], [place] Hematocrit (Bld) [Volume fraction] 30.6 % Low 35.0-47.0 [facility] Comment on above: Performed By: #### P T/AP, CMP3, HEMOG, FIBGN #### [address] [address] [place], [place] Hemoglobin (Bld) [Mass/Vol] 9.7 g/dL Low 11.7-16.0 [facility] Comment on above: Performed By: #### P T/AP, CMP3, HEMOG, FIBGN #### [address] [address] [place], [place] MCH (RBC) [Entitic mass] 26.2 pg Normal 26.0-34.0 [facility] Comment on above: Performed By: #### P T/AP, CMP3, HEMOG, FIBGN #### [address] [address] [place] MCHC 31.9 % Low 32.0-36.0 [facility] Comment on above: Performed By: #### P T/AP, CMP3, HEMOG, FIBGN #### [address] [address] [place], [place] MCV (RBC) [Entitic vol] 82.2 fL Normal 79.0-98.0 [facility] Comment on above: Performed By: #### P T/AP, CMP3, HEMOG, FIBGN #### [address] [address] [place], [place] Platelet mean volume (Bld) [Entitic vol] 8.1 fL Normal 7.4-10.4 [facility] Comment on above: Performed By: #### P T/AP, CMP3, HEMOG, FIBGN #### [address] [address] [place], [place] Platelets (Bld) [#/Vol] 249 10*3/uL Normal 140-440 [facility] Comment on above: Performed By: #### P T/AP, CMP3, HEMOG, FIBGN #### [address] [address] [place], [place] RBC (Bld) [#/Vol] 3.72 10*6/uL Low 3.80-5.20 [facility] Comment on above: Performed By: #### P T/AP, CMP3, HEMOG, FIBGN #### [address] [address] [place], [place] WBC (Bld) [#/Vol] 13.3 10*3/uL High 3.6-10.7 [facility] Comment on above: Performed By: #### P T/AP, CMP3, HEMOG, FIBGN #### [facility] [address], [place] Medication Assisted Treatmen t Panelon 04-25-2020 Fentanyl Negative Normal [facility] Comment on above: Performed By: #### C RTUR, TPUR, MAT #### [address] [address] [place] [place], [place] Amphetamines Ql (U) Negative Normal [facility] Comment on above: Performed By: #### C RTUR, TPUR, MAT #### [address] [address] [place], [place] Barbiturates Negative Normal [facility] Comment on above: Performed By: #### C RTUR, TPUR, MAT #### [address] [address] [place] [place], [place] Benzodiazepines Ql (U) Negative Normal [facility] Comment on above: Performed By: #### C RTUR, TPUR, MAT #### [address] [address] [place] [place], [place] Buprenorphine Screen Negative [facility] Comment on above: Performed By: #### C RTUR, TPUR, MAT #### [address] [address] [place] [place], [place] Cocaine Ql (U) Negative Normal [facility] Comment on above: Performed By: #### C RTUR, TPUR, MAT #### [address] [address] [place], [place] Ethanol [Mass/Vol] Negative Normal [facility] Comment on above: Performed By: #### C RTUR, TPUR, MAT #### [address] [address] [place] [place], [place] Methadone Ql (U) Negative Normal [facility] Comment on above: Performed By: #### C RTUR, TPUR, MAT #### [address] [address] [place] [place], [place] Opiates Ql (U) Negative Normal [facility] Comment on above: Performed By: #### C RTUR, TPUR, MAT #### [facility] [address] [facility], [place] Oxycodone/Oxymorphone Negative Normal [facility] Comment on above: Performed By: #### C RTUR, TPUR, MAT #### [facility] [address] [facility], [place] PCP Negative Normal [facility] Comment on above: Performed By: #### C RTUR, TPUR, MAT #### [facility] [address] [facility], [place] THC Negative Normal [facility] Comment on above: Performed By: #### C RTUR, TPUR, MAT #### [facility] [address], [place] Amphetamines Ql (U) Negative [facility], [place] Benzodiazepines Ql (U) Negative [facility] [place], [place] Cocaine Ql (U) Negative [facility], [place] Ethanol [Mass/Vol] Negative [facility] [place], [place] Methadone Ql (U) Negative [facility] [place], [place] Opiates Ql (U) Negative [facility] [place], [place] Sodium [Moles/Vol] See Below [facility] [facility], [place] Comment on above: The expected value f [...] performed using non-forensic procedures. Test Performed by [place] [id number] [address] [facility] [place] [facility], [place] MAT Panel Test Comment See Below Normal [facility] Comment on above: Result Comment: The expected [...] By: #### C RTUR, TPUR, MAT #### [address] [id number] Metabolic Panelon 04-25-2020 Sodium [Moles/Vol] Negative [place], [place] Otheron 04-25-2020 Test Performed by [address] Test Performed by [address] PROTEIN, URINE, RANDOMon Interpretation and review of laboratory results Abnormal [place], [place] Protein (U) [Mass/Vol] 88 mg/dL High No Range [place], [place] PROTIME/INR & PTTon 04-25-20 20 INR Coag (PPP) [Relative time] 0.9 {INR} [place], [place] Comment on above: Recommended Anticoag ulant [...] Ur Random 88 mg/dL High No Range [facility] Comment on above: Performed By: #### C RTUR, TPUR, MAT #### [facility] [address], [place] Protime AND APTTon 0 aPTT Coag (Bld) [Time] 21.4 s Normal 20.0-30.5 [place], [place] Comment on above: NOTE: The therapeuti c time for Heparin anticoagulation, based on Xa activity inhibition, is an APTT of 46-80 seconds. Result Comment: NOTE : The therapeutic time for Heparin anticoagulation, based on Xa activity inhibition, is an APTT of 46-80 seconds. Performed By: #### P T/AP, CMP3, HEMOG, FIBGN #### [facility] [address], [place] INR 0.9 Normal 0.9-1.1 [facility] Comment on above: Result Comment: Trell mmended [...] #### P T/AP, CMP3, HEMOG, FIBGN #### [facility] [address], [place] PT Coag (PPP) [Time] 9.6 s Normal 9.0-12.0 [place], [place] Comment on above: . Result Comment: . Performed By: #### P T/AP, CMP3, HEMOG, FIBGN #### [facility] [address], [place] TS GELon 04-25-2020 TS GEL ABO Group: O Rh, Gel: POS Antibody Screen Gel: NEG Normal [facility] Comment on above: Performed By: #### T SGL ####[facility] TYPE AND SCREENon 04-25-2020 Sodium [Moles/Vol] Negative [facility], [place] Sodium [Moles/Vol] O [facility], [place] Sodium [Moles/Vol] Positive [facility], [place] Test Performed by [employer] [facility], [address] [place] [id number] [facility], [place] ABO, External Resulton 04-10 ABO, External Result O [facility], [place] C. Trachomatis, External Res ulton 04-10-2020 C. Trachomatis, External Result Negative [facility], [place] HIV, External Resulton 04-10 HIV, External Result Negative [facility], [place] Hepatitis B, External Result on 04-10-2020 Hep B, External Result Negative [facility], [place] N. Gonorrhoeae, External Res ulton 04-10-2020 N. Gonorrhoeae, External Result Negative [facility], [place] Otheron 04-10-2020 Verified with Fer Alejo rn [place], [place] RPR, External Labon 04-10-20 20 RPR, External Result Negative [facility], [place] Rh Factor, External Resulton 04-10-2020 Rh Factor, External Result Positive [place], [place] Rubella Titer, External Resu lton 04-10-2020 Rubella Titer, External Result IMMUNE [place], [place] Progress Noteon 03-08-2020 Pensions Retirement Plan Specialist Authentication Interface Message Text Pediatric Cardiology Echocardiogram [...] anatomic obstetrical ultrasound. Patient was seen by MFM with obstetrical ultrasound and genetic counseling performed [...] in visit on 03/08/20 [place] [address] [email or web address] ---- Echocardiogram Report M-mode, complete 2D, complete spectral Doppler, and color Doppler PATIENT: Anand Herrera STUDY DATE/TIME: Mar 08 2020 12:04PM HEIGHT: : 2000 WEIGHT: AGE: 19yr BSA/BMI: / GENDER: F BP: 137 / 64 LOCATION: [facility] REFERRING PHYSICIAN: Zac Martinez Md ORDERING PROVIDER: [...] AND PROCEDURE DATA: Procedure Description: Hilda Borrero ([id number]) . Study status: Routine. Location: lab. Procedure: [...] a patent foramen ovale. There is a [id number] shunt. Left atrium - The atrium is [...] of all we discussed. Hannah Guevara MD [facility] Furnace Tender [facility] Clinical Foundry Helper of Pediatrics [facility] Counseling and coordination of care for this patient was greater than 35minutes which is more than 50% of the total time of 60 minutes spent on the encounter. Normal [facility] Pensions Retirement Plan Specialist Authentication Interface Message Text Pediatric Hand Surgery [...] to requesting provider. 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 Consent to share information with [facility] team, OB and pharmaceutical botanist signed. Pt plans to deliver at [facility] with Dr Martinez. Washer Operator is not yet decided. female fetus- name is [place] Method of feeding: breast and bottle Ultrasound findings today: See report in procedures for details. Reinforced continued OB care with Dr Martinez- next appointment- next week Normal [facility] Pensions Retirement Plan Specialist Authentication Interface Message Text [facility] genetic counseling note Consultation has been [...] Herrera also met with Jerilyn Agee, Clinical Loans Consultant from our [facility]. Jerilyn will continue to help coordinate and care. consultation with Pediatric Orthopedic Surgery in the Hand and Upper Extremity Clinic is being arranged. follow up with Pediatric Orthopedic Surgery should be within one month of age or otherwise as per their recommendations. Call [phone] to schedule. Consultation with Medical Genetics should be considered in the period, especially if additional concerns are noted after delivery. The pharmaceutical botanist or patient can request this consultation. Call [phone] to schedule. Indicate that you were followed by the [facility] when scheduling. Diagnosis: DIAGNOSIS. 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 Plan: 1. Continued obstetrical care with her primary outpatient facility physical therapist is recommended. 2. Follow up q4 weeks to evaluate biometric parameters and anatomy. These are planned with the [facility]/your office. 3. surveillance as follows: weekly BPP beginning at 32 weeks. 4. consultation with Pediatric Orthopedic Surgery in the Hand and Upper Extremity Clinic is being arranged. 5. Delivery is appropriate at your local institution/already planned in [place] with follow up as indicated. 6. Mode and timing of delivery are based on the usual obstetrical indications. 7. Anticipate normal nursery. OR Neonatology/Pediatric di to be present at delivery to evaluate and determine nursery placement. 8. follow up with Pediatric Orthopedic Surgery should be within one month of age or otherwise as per their recommendations. Call [phone] to schedule. 9. Consultation with Medical Genetics should be considered in the period, especially if additional concerns are noted after delivery. The pharmaceutical botanist or patient can request this consultation. Call [phone] to schedule. Indicate that you were followed by the [facility] when scheduling. 9. Other follow up as clinically indicated. Her complete [facility] Plan of Care summary will be distributed. The total patient time of the visit was 30 minutes, of which greater than 50% of the time was spent counseling and coordinating care. Junior Kat MD Normal [facility] Progress Noteon 02-15-2020 Pensions Retirement Plan Specialist Authentication Interface Message Text Dating for consult Normal [facility] Vital Signs Date Time Vital Sign Value Performing Clinician Facility 01-11-2025 14:39-0400 Body mass index (BMI) [Ratio] 30.8 kg/m2 Marco A Jc DO Work Phone: [facility] 01-11-2025 14:39-0400 Body weight 86.55 kg Marco A Jc DO Work Phone: [facility] 01-11-2025 14:39-0400 Diastolic blood pressure 64 mm[Hg] Marco A Jc DO Work Phone: [facility] 01-11-2025 14:39-0400 Systolic blood pressure 122 mm[Hg] Marco A Jc DO Work Phone: [facility] 01-04-2025 13:14-0400 Body mass index (BMI) [Ratio] 30.3 kg/m2 Simona Rosey PA Work Phone: [facility] 01-04-2025 13:14-0400 Body weight 85.16 kg Simona Macon PA Work Phone: [facility] 01-04-2025 13:14-0400 Diastolic blood pressure 62 mm[Hg] Simona Rosey PA Work Phone: [facility] 01-04-2025 13:14-0400 Systolic blood pressure 126 mm[Hg] Simona Macon PA Work Phone: [facility] 12-22-2024 13:57-0400 Body mass index (BMI) [Ratio] 30.57 kg/m2 Simona Macon PA Work Phone: [facility] 12-22-2024 13:57-0400 Body weight 85.91 kg Simona Macon PA Work Phone: [facility] 12-22-2024 13:57-0400 Diastolic blood pressure 68 mm[Hg] Simona Rosey PA Work Phone: [facility] 12-22-2024 13:57-0400 Systolic blood pressure 112 mm[Hg] Simnoa Rosey PA Work Phone: [facility] 12-08-2024 11:30-0400 Body mass index (BMI) [Ratio] 29.58 kg/m2 Marco A Jc DO Work Phone: [facility] 12-08-2024 11:30-0400 Body weight 83.12 kg Marco A Jc DO Work Phone: [facility] 12-08-2024 11:30-0400 Diastolic blood pressure 66 mm[Hg] Marco A Jc DO Work Phone: [facility] 12-08-2024 11:30-0400 Systolic blood pressure 122 mm[Hg] Marco A Jc DO Work Phone: [facility] 11-22-2024 11:51-0400 Body mass index (BMI) [Ratio] 29.34 kg/m2 Marco A Jc DO Work Phone: [facility] 11-22-2024 11:51-0400 Body weight 82.46 kg Marco A Jc DO Work Phone: [facility] 11-22-2024 11:51-0400 Diastolic blood pressure 66 mm[Hg] Marco A Jc DO Work Phone: [facility] 11-22-2024 11:51-0400 Systolic blood pressure 112 mm[Hg] Marco A Jc DO Work Phone: [facility] 10-25-2024 14:39-0400 Body mass index (BMI) [Ratio] 28.25 kg/m2 Simona ROSS Work Phone: [facility] 10-25-2024 14:39-0400 Body weight 79.38 kg Simona ROSS Work Phone: [facility] 10-25-2024 14:39-0400 Diastolic blood pressure 62 mm[Hg] Simona ROSS Work Phone: [facility] 10-25-2024 14:39-0400 Systolic blood pressure 110 mm[Hg] Simona ROSS Work Phone: [facility] 09-27-2024 14:51-0400 Body mass index (BMI) [Ratio] 27.12 kg/m2 Marco A Jc DO Work Phone: [facility] 09-27-2024 14:51-0400 Body weight 76.2 kg Marco A Jc DO Work Phone: [facility] 09-27-2024 14:51-0400 Diastolic blood pressure 70 mm[Hg] Marco A Jc DO Work Phone: [facility] 09-27-2024 14:51-0400 Systolic blood pressure 110 mm[Hg] Marco A Jc DO Work Phone: [facility] 08-29-2024 11:50-0400 Body mass index (BMI) [Ratio] 25.95 kg/m2 Marco A Jc DO Work Phone: [facility] 08-29-2024 11:50-0400 Body weight 72.94 kg Marco A Jc DO Work Phone: [facility] 08-29-2024 11:50-0400 Diastolic blood pressure 68 mm[Hg] Marco A Jc DO Work Phone: [facility] 08-29-2024 11:50-0400 Systolic blood pressure 114 mm[Hg] Marco A Jc DO Work Phone: [facility] 08-01-2024 13:20-0400 Body mass index (BMI) [Ratio] 26.95 kg/m2 Marco A Jc DO Work Phone: [facility] 08-01-2024 13:20-0400 Body weight 75.75 kg Marco A Jc DO Work Phone: [facility] 08-01-2024 13:20-0400 Diastolic blood pressure 70 mm[Hg] Marco A Jc DO Work Phone: [facility] 08-01-2024 13:20-0400 Systolic blood pressure 120 mm[Hg] Marco A Jc DO Work Phone: [facility] 05-19-2024 11:32-0500 Body mass index (BMI) [Ratio] 23.4 kg/m2 Marco A Jc DO Work Phone: [facility] 05-19-2024 11:32-0500 Body weight 65.77 kg Marco A Jc DO Work Phone: [facility] 05-19-2024 11:32-0500 Diastolic blood pressure 74 mm[Hg] Marco A Jc DO Work Phone: [facility] 05-19-2024 11:32-0500 Systolic blood pressure 110 mm[Hg] Marco A Jc DO Work Phone: [facility] 04-19-2024 01:09-0500 Body temperature 98.06 [degF] [facility] 04-19-2024 01:09-0500 Diastolic blood pressure 84 mm[Hg] [facility] 04-19-2024 01:09-0500 Heart rate 90 /min [facility] 04-19-2024 01:09-0500 Respiratory rate 16 /min [facility] 04-19-2024 01:09-0500 SaO2% (BldA) [Mass fraction] 100 % [facility] 04-19-2024 01:09-0500 Systolic blood pressure 126 mm[Hg] [facility] 03-08-2024 15:12-0500 Body mass index (BMI) [Ratio] 22.29 kg/m2 Marco A Jc DO Work Phone: [facility] 03-08-2024 15:12-0500 Body weight 62.65 kg Marco A Jc DO Work Phone: [facility] 03-08-2024 15:12-0500 Diastolic blood pressure 70 mm[Hg] Amrco A Jc DO Work Phone: [facility] 03-08-2024 15:12-0500 Systolic blood pressure 120 mm[Hg] Marco A Jc DO Work Phone: [facility] 10-14-2022 12:27-0400 Body temperature 98.24 [degF] Nakul Cannon [facility] 10-14-2022 12:27-0400 Diastolic blood pressure 64 mm[Hg] Nakul Cannon [facility] 10-14-2022 12:27-0400 Heart rate 107 /min Nakul Cannon [facility] 10-14-2022 12:27-0400 Respiratory rate 18 /min Nakul Cannon [facility] 10-14-2022 12:27-0400 SaO2% (BldA) [Mass fraction] 100 % Nakul Cannon [facility] 10-14-2022 12:27-0400 Systolic blood pressure 113 mm[Hg] Nakul Cannon [facility] 12-19-2021 03:42-0400 Diastolic blood pressure 64 mm[Hg] Anthony Michelle [facility] 12-19-2021 03:42-0400 Heart rate 78 /min Anthony Michelle [facility] 12-19-2021 03:42-0400 Hourly Rounding Anthony Michelle [facility] 12-19-2021 03:42-0400 Nursing Progress Note Reason Other: Pt mediciated per orders. Family x1 cartside. Denies any needs at this time. Anthony Michelle [facility] 12-19-2021 03:42-0400 Respiratory rate 16 /min Anthony Michelle [facility] 12-19-2021 03:42-0400 SaO2% (BldA) [Mass fraction] 100 % Anthony Michelle [facility] 12-19-2021 03:42-0400 Systolic blood pressure 116 mm[Hg] Anthony Michelle [facility] 12-19-2021 02:40-0400 Diastolic blood pressure 70 mm[Hg] Anthony Michelle [facility] 12-19-2021 02:40-0400 Heart rate 82 /min Anthony Michelle [facility] 12-19-2021 02:40-0400 Hourly Rounding Anthony Michelle [facility] 12-19-2021 02:40-0400 Nursing Progress Note Reason Other: Pt ambulatory to bathroom and back to cart with a steady gait. Anthony Michelle [facility] 12-19-2021 02:40-0400 Respiratory rate 16 /min Anthony Michelle [facility] 12-19-2021 02:40-0400 SaO2% (BldA) [Mass fraction] 100 % Anthony Michelle [facility] 12-19-2021 02:40-0400 Systolic blood pressure 122 mm[Hg] Anthony Michelle [facility] 12-19-2021 01:53-0400 Body temperature 98.06 [degF] Anthony Michelle [facility] 12-19-2021 01:53-0400 Diastolic blood pressure 84 mm[Hg] Anthony Michelle [facility] 12-19-2021 01:53-0400 Heart rate 89 /min Anthony Michelle [facility] 12-19-2021 01:53-0400 Respiratory rate 16 /min Anthony Michelle [facility] 12-19-2021 01:53-0400 SaO2% (BldA) [Mass fraction] 100 % Anthony Michelle [facility] 12-19-2021 01:53-0400 Systolic blood pressure 149 mm[Hg] Anthony Martinez [facility] 11-01-2021 08:09-0400 Body temperature 98.42 [degF] Keanu Kamara [facility] 11-01-2021 08:09-0400 Diastolic blood pressure 90 mm[Hg] Keanu Kamara [facility] 11-01-2021 08:09-0400 Heart rate 94 /min Keanu Kamara [facility] 11-01-2021 08:09-0400 Respiratory rate 18 /min Keanu Kamara [facility] 11-01-2021 08:09-0400 SaO2% (BldA) [Mass fraction] 98 % Keanu Kamara [facility] 11-01-2021 08:09-0400 Systolic blood pressure 145 mm[Hg] Keanu Kamara [facility] 09-18-2021 09:59-0400 Body temperature 98.06 [degF] [facility] 09-18-2021 09:59-0400 Diastolic blood pressure 87 mm[Hg] [facility] 09-18-2021 09:59-0400 Heart rate 90 /min [facility] 09-18-2021 09:59-0400 Respiratory rate 16 /min [facility] 09-18-2021 09:59-0400 SaO2% (BldA) [Mass fraction] 100 % [facility] 09-18-2021 09:59-0400 Systolic blood pressure 136 mm[Hg] [facility] 04-28-2020 07:51-0500 Body Temperature 97.81 [degF] Chelsi Juza [facility], [place] 04-28-2020 07:51-0500 BP Diastolic 68 mm[Hg] [facility] [place] 04-28-2020 07:51-0500 BP Systolic 121 mm[Hg] Chelsi Caballero [place] 04-28-2020 07:51-0500 Pulse (Heart Rate) 97 /min [facility] [place] 04-28-2020 07:51-0500 Pulse Oximetry 97 % [facility] [place] 04-28-2020 07:51-0500 Respiratory Rate 18 /min Chelsi Caballero [place], [place] 04-25-2020 13:40-0500 BMI (Body Mass Index) 23.3 kg/m2 Chelsi Caballero [place] 04-25-2020 13:40-0500 Body weight 63.5 kg [facility] [place] 04-25-2020 13:40-0500 Height 165.1 cm [facility] [place] Encounters Encounter Date Encounter Type Care Provider Facility Start: 01-11-2025 End: 01-11-2025 Office outpatient visit 15 minutes Marco A Jc DO Work Phone: [facility] Comment on above: Third trimester preg tuan ([facility]); 36 weeks gestation of ([facility]); Amniotic band syndrome; H/O pre-eclampsia in prior , currently ([facility]) Start: 01-11-2025 End: 01-11-2025 Bamboo flowsheet Marco A Jc DO Work Phone: [facility] Start: 01-11-2025 End: 01-11-2025 Bamboo flowsheet Marco A Jc DO Work Phone: [facility] Start: 01-04-2025 End: 01-04-2025 Bamboo flowsheet Simona ROSS Work Phone: [facility] Start: 01-04-2025 End: 01-04-2025 Bamboo flowsheet Simona ROSS Work Phone: [facility] Start: 01-04-2025 End: 01-04-2025 Office outpatient visit 15 minutes Simona ROSS Work Phone: [facility] Comment on above: Third trimester preg tuan ([facility]); 35 weeks gestation of ([facility]) Start: 01-04-2025 End: 01-04-2025 ambulatory SIMONA CURRIE Not Available Start: 12-29-2024 End: 12-29-2024 Clinisync Result Encounter Marco A Jc DO Work Phone: [facility] Unsolicited Start: 12-29-2024 End: 12-29-2024 Clinisync Result Encounter Marco A Jc DO Work Phone: [facility] Unsolicited Start: 12-22-2024 End: 12-22-2024 Bamboo flowsheet Simona ROSS Work Phone: [facility] [place] [facility] Start: 12-22-2024 End: 12-22-2024 Bamboo flowsheet Simona ROSS Work Phone: [facility] Start: 12-22-2024 End: 12-22-2024 Office outpatient visit 15 minutes Simona ROSS Work Phone: [facility] Comment on above: Third trimester preg tuan ([facility]); 33 weeks gestation of ([facility]); Amniotic band syndrome; History of miscarriage Start: 12-22-2024 End: 12-22-2024 ambulatory SIMONA CURRIE Not Available Start: 12-12-2024 End: 12-12-2024 ambulatory MARCO A JC Not Available Start: 12-08-2024 End: 12-08-2024 Office outpatient visit 15 minutes Marco A Jc DO Work Phone: [facility] Comment on above: Third trimester preg tuan ([facility]); 31 weeks gestation of ([facility]); Screening, , for anatomic survey ([facility]) Start: 12-08-2024 End: 12-08-2024 ambulatory MARCO A JC Not Available Start: 11-22-2024 End: 11-22-2024 Bamboo flowsheet Marco A Jc DO Work Phone: [facility] Start: 11-22-2024 End: 11-22-2024 Bamboo flowsheet Marco A Jc DO Work Phone: [facility] Start: 11-22-2024 End: 11-22-2024 Office outpatient visit 15 minutes Marco A Jc DO Work Phone: [facility] Comment on above: Size of fetus incons istent with dates in second trimester ([facility]) (Primary Dx); Second trimester ([facility]); 28 weeks gestation of ([facility]); Mastitis Start: 11-22-2024 End: 11-22-2024 ambulatory MARCO [...] Comment on above: Second trimester pre gnancy ([facility]); 24 weeks gestation of ([facility]); HSV infection; H/O pre-eclampsia in prior , currently ([facility]); Diabetes mellitus screening; Encounter for anatomic survey ([facility]) Start: 10-25-2024 End: 10-25-2024 ambulatory SIMONA CURRIE Not Available Start: 10-25-2024 End: 10-25-2024 Bamboo flowsheet Simona ROSS Work Phone: [facility] Start: 10-25-2024 End: 10-25-2024 Bamboo flowsheet Simona Rosey PA Work Phone: [facility] Start: 09-27-2024 End: 09-27-2024 flow sheet Marco A Jc DO Work Phone: [facility] Comment on above: Second trimester pre gnancy; 20 weeks gestation of ; Exposure to STD; History of miscarriage Start: 09-27-2024 End: 09-27-2024 ambulatory MARCO A JC Not Available Start: 09-27-2024 End: 09-27-2024 Bamboo flowsheet Marco A Jc DO Work Phone: [facility] Start: 09-27-2024 End: 09-29-2024 External Result Encounter Marco A Jc DO Work Phone: [facility] Unsolicited Start: 09-27-2024 End: 09-29-2024 External Result Encounter Marco A Jc DO Work Phone: [facility] Unsolicited Start: 08-29-2024 End: 08-29-2024 Bamboo flowsheet Marco A Jc DO Work Phone: [facility] Start: 08-29-2024 End: 08-29-2024 Bamboo flowsheet Marco A Jc DO Work Phone: [facility] Start: 08-29-2024 End: 08-29-2024 Office outpatient visit 15 minutes Marco A Jc DO Work Phone: [facility] Comment on above: History [...] visit by physician [facility] Ultrasound 1 [place] Comment on above: as inciden neetu finding ([facility]) Start: 08-01-2024 End: 08-01-2024 Bamboo flowsheet Marco [...] 04-19-2024 Emergency department patient visit Amos Espinoza [facility] Start: 03-08-2024 End: 03-08-2024 Patient encounter procedure Marco A Jc DO Work Phone: [facility] Work Phone: Start: 03-08-2024 End: 03-08-2024 Periodic preventive med est patient 18-39 yrs Marco A Jc DO Work Phone: [facility] Comment on above: Well woman exam with routine gynecological exam Start: 03-08-2024 End: 03-08-2024 ambulatory MARCO A WALTERO Not Available Start: 03-08-2024 End: 03-08-2024 Bamboo flowsheet Marco A Jc DO Work Phone: [facility] Start: 03-08-2024 End: 03-16-2024 Bamboo flowsheet Marco A Jc DO Work Phone: [facility] Start: 03-08-2024 End: 03-16-2024 Clinisync Result Encounter Marco A Jc DO Work Phone: [facility] Unsolicited Start: 02-02-2023 End: 02-25-2023 Pre-admission assessment Zac Martinez [facility] Start: 11-10-2022 ambulatory KELL JOHNSON Faci lity:[facility] Jacobo Mark Start: 10-14-2022 End: 10-14-2022 Emergency department patient visit Nakul Cannon [facility] Start: 09-26-2022 ambulatory PCP UNKNOWN Facility:[facility] Jacobo Mark Start: 09-04-2022 End: 09-05-[address] MARCO A GREENE . Facility: Start: 08-14-2022 End: 08-15-[address] MARCO A GREENE . Facility: Start: 12-19-2021 End: 12-19-2021 Emergency department patient visit Anthony KapoorIrvin Martinez [facility] Start: 11-14-2021 End: 11-14-2021 Patient encounter procedure Grover Amaral OD Work Phone: Ophthalmology Comment on above: EKC (epidemic kerato conjunctivitis) (Primary Dx) Start: 11-07-2021 End: 11-07-2021 Patient encounter procedure Grover Amaral OD Work Phone: Ophthalmology Comment on above: Viral conjunctivitis (Primary Dx) Start: 11-01-2021 End: 11-01-2021 Emergency department patient visit Keanu Kamara [facility] Start: 09-18-2021 End: 09-18-2021 Emergency department patient visit Amos Gaona Olga [facility] Start: 04-25-2020 End: 04-28-2020 Evaluation and management of inpatient Chelsi Parra Work Phone: [facility] Procedures Date Procedure Procedure Detail Performing Clinician Start: 01-11-2025 Urnls dip stick/tabl et rgnt non-auto w/o micrscp Marco A Jc DO Work Phone: Start: 01-04-2025 Urnls dip stick/tabl et rgnt non-auto w/o micrscp Simona ROSS Work Phone: Start: 12-29-2024 US OB BPP W NON-STRESS Marco A Jc DO Work Phone: Start: 11-22-2024 Urnls dip [...] A Greene DO Work Phone: Start: 08-16-2024 uterus limited 1/> fetuses Marco A Greene [...] f 2) Zoster Vaccines (1 of 2) [facility] Start: 04-28-2030 DTaP/Tdap/Td Vaccine s (8 - Td or Tdap) DTaP/Tdap/Td Vaccines (8 - Td or Tdap) [facility] Start: 03-14-2025 End: 03-14-2025 Patient encounter procedure [facility] Start: 01-11-2025 End: 01-11-2025 Patient encounter procedure [facility] Comment on above: Arrived Start: 01-11-2025 End: 01-11-2026 CULTURE, GROUP B STREP WITH SUSCEPTIBLITY CULTURE, GROUP B STREP WITH SUSCEPTIBLITY Lab Routine Third trimester ([facility]) Expected: 01/11/2025, Expires: 01/11/2026 [facility] Work Phone: Comment on above: Expected: 01/11/2025 , Expires: 01/11/2026 Start: 01-04-2025 End: 01-04-2025 Patient encounter procedure LNO BARRERA Comment on above: Arrived Start: 12-26-2024 Influenza vaccination Influenz a Vaccine (Season Ended) [facility] Start: 12-22-2024 End: 12-22-2024 Patient encounter [...] weeks anatomy scan Imaging Routine Third trimester ([facility]) 31 weeks gestation of ([facility]) Screening, , for anatomic survey ([facility]) Expected: 12/08/2024, Expires: 03/10/2025 [facility] Work Phone: Comment on above: Expected: 12/08/2024 , Expires: 03/10/2025 Start: 12-08-2024 End: 12-08-2024 Professional / ancillary services management 12/08/2024 11:00 AM EDT Ancillary Procedure LON BARRERA [address] [place] [address] [place] [id number] LON BARRERA Start: 11-22-2024 End: 03-25-2025 US for US OB follow up transabdominal approach Imaging Routine Size of fetus inconsistent with dates in second trimester ([facility]) Expected: 11/22/2024, Expires: 03/25/2025 [facility] Work [...] mellitus screening Expected: 10/25/2024 (Approximate), Expires: 10/25/2025 [facility] Comment on above: Expected: 10/25/2024 (Approximate), Expires: 10/25/2025 Start: 10-25-2024 End: 01-25-2025 US for US OB limited 1+ fetuses Imaging Routine Encounter for anatomic survey ([facility]) Expected: 10/25/2024 (Approximate), Expires: 01/25/2025 [facility] Comment on above: Expected: 10/25/2024 (Approximate), Expires: 01/25/2025 Start: 09-27-2024 End: 09-27-2024 Patient encounter procedure [facility] Comment on above: Arrived Start: 08-29-2024 End: 03-01-2025 Alpha fetoprotein, maternal Alpha fetoprotein, maternal Lab Routine Second trimester 16 weeks gestation of Expected: 08/29/2024 (Approximate), Expires: 03/01/2025 [facility] Work Phone: Comment on above: Expected: 08/29/2024 (Approximate), Expires: 03/01/2025 Start: 08-29-2024 End: 08-29-2024 Patient encounter procedure [facility] Comment on above: Arrived Start: 08-01-2024 End: 08-01-2024 Patient encounter procedure [facility] Comment on above: Arrived Start: 05-19-2024 End: 05-19-2024 Patient encounter procedure 05/19/2024 11:20 AM EST Office Visit [facility] [address] [place] [address] Marco A Greene, [address] [place], [place] [id number] Arrived [facility] Comment on above: Arrived Start: 12-27-2023 COVID-19 Vaccine ( season) COVID-19 Vaccine ( season) [facility] Start: 12-26-2021 Influenza vaccination INFLUENZA (#1) [facility] Start: 10-08-2020 PAP TESTING PAP TESTING [facility] Start: 10-08-2020 Screening for malign ant neoplasm of cervix [facility] Start: 10-08-2018 Urine microalbumin profile DTAP,TDAP,TD (1 - Tdap) [facility] Start: 10-08-2017 CHLAMYDIA SCREENING (18-24) CHLAMYDIA SCREENING (18-24) [facility] Start: 10-08-2017 GC (GONORRHEA) SCREENING (18-24) GC (GONORRHEA) SCREENING (18-24) [facility] Start: 10-08-2017 HEPATITIS C SCREENING HEPATITIS C [facility] Start: 10-08-2017 Hepatitis C screening Hepatitis C [facility] Start: 10-08-2017 HIV SCREENING HIV SCREENING [facility] Start: 10-08-2013 PEDS TO ADULT TRANSITION ANNUAL ASSESSMENT PEDS TO ADULT TRANSITION ANNUAL ASSESSMENT [facility] Start: 03-01-2012 Varicella vaccination Varicell a Vaccines (2 of 2 - 2-dose childhood series) [facility] Start: 2011 Adult depression screening assessment DEPRESSION SCREENING [facility] Start: 2011 PEDS TO ADULT TRANSITION INITIAL DISCUSSION PEDS TO ADULT TRANSITION INITIAL DISCUSSION [facility] Start: 10-08-2010 HPV VACCINE (1 - 2-d ose series) HPV VACCINE (1 - 2-dose series) [facility] Start: 04-09-2000 COVID-19 VACCINE (#1) COVID-19 VACCI NE (#1) [facility] Start: 1999 HIV screening HIV Screening [facility] Start: 1999 Lipid panel Lipid Panel [facility] Start: 1999 Yearly Adult Physical Yearly Adult P hysical [facility] CHLAMYDIA TRACHOMATI S (GENITO/STI) CHLAMYDIA TRACHOMATIS (GENITO/STI) Lab Routine Exposure to STD Ordered: 09/27/2024 [facility] Comment on above: Ordered: 09/27/2024 Cytology Cervical or vaginal smear or scraping study Pap Smear Pathology and Cytology Routine Well woman exam with routine gynecological exam Ordered: 03/08/2024 [facility] Work Phone: Comment on above: Ordered: 03/08/2024 Neisseria gonorrhoea e DNA [Presence] in Unspecified specimen by ARCHANA with probe detection Neisseria gonorrhea DNA probe, direct Lab Routine Exposure to STD Ordered: 09/27/2024 [facility] Comment on above: Ordered: 09/27/2024 Nonrebreather mask oxygen Nonrebreather mask oxygen Respiratory Care Routine As directed - RT (PRN) until discontinued starting 04/26/2020 [place], [place] Comment on above: As directed - RT (CT N) until discontinued starting 04/26/2020 Oxygen therapy [[facility]] Initiate Oxygen Therapy Protocol Respiratory Care Routine Daily until discontinued starting 04/26/2020 [place] Comment on above: Daily until disconti nued starting 04/26/2020 Spirometry panel Incentive roger metry Respiratory Care Routine Every 2hr while awake until discontinued starting 04/26/2020 [place] Comment on above: Every 2hr while awak e until discontinued starting 04/26/2020 SURESWAB(R) ADVANCED VAGINITIS PLUS, TMA SURESWAB(R) ADVANCED VAGINITIS PLUS, TMA Pathology and Cytology Routine Exposure to STD Ordered: 09/27/2024 [facility] Work Phone: Comment on above: Ordered: 09/27/2024 [facility] Immunizations Immunization Date Immunization Notes Care Provider Merry banda 04-28-2020 tetanus toxoid, redu paula diphtheria toxoid, and acellular pertussis vaccine, adsorbed [facility] [place] [place] 04-27-2020 influenza, injectabl e, quadrivalent, preservative free [facility] 04-27-2020 influenza virus vacc ine, unspecified formulation [id number] [facility] Work Phone: 04-26-2020 influenza quadrivale nt split vaccine (FLUZONE;FLUARIX;FLULAVAL ;AFLURIA) injection 0.5 mL [facility] 04-26-2020 diphtheria, tetanus toxoids and acellular pertussis vaccine, unspecified formulation [facility] [place] 12-08-2011 varicella virus vaccine [id number] 1 [facility] Work Phone: Payers Date Payer Category Payer Medicaid [employer] [place] [id number] 2020-Present [phone] [address] [address] [place] [address] Medicaid [id number] 2020 Medicaid (Managed Care) 1.2. [id number] 2020 [employer] [employer] ( and others) [employer] [id number] 2020-Present [address] [place] [address] [id number]. [id number] 1999 Unknown [id number] 2.16.840.1.466882.3.579.2. 593 1999 Unknown [id number] 2.16.840.1.885696.3.579.2. 593 1999 Unknown [id number] 2.16.840.1.499542.3.579.2. 356 1999 Unknown [id number] 2.16.840.1.866660.3.579.2. 356 1999 Unknown [id number] 2.16.840.1.048096.3.579.2. 727 1999 Unknown [id number] 2.16.840.1.284158.3.579.2. 1258 1999 Unknown [id number] 2.16.840.1.333996.3.579.2. 1258 1999 Unknown [id number] 2.16.840.1.760158.3.579.2. 1258 1999 Unknown [id number] 2.16.840.1.393850.3.579.2. 1258 1999 Unknown [id number] 2.16.840.1.232456.3.579.2. 1258 1999 Unknown [id number] 2.16.840.1.052608.3.579.2. 1258 1999 Unknown [id number] 2.16.840.1.155572.3.579.2. 1258 1999 Unknown [id number] 2.16.840.1.930552.3.579.2. 1258 1999 Unknown [id number] 2.16.840.1.687358.3.579.2. 1258 1999 Unknown [id number] 2.16.840.1.186928.3.579.2. 1258 1999 Unknown [id number] 2.16.840.1.443253.3.579.2. 1258 1999 Unknown [id number] 2.16.840.1.564114.3.579.2. 1258 1999 Unknown [id number] 2.16.840.1.878771.3.579.2. 1258 1999 Unknown [id number] 2.16.840.1.644154.3.579.2. 9 1959 Unknown [id number] Social History Date Type Detail Facility Start: 04-28-2020 End: 10-26-2023 Tobacco smoking status KYIS Never smoker [facility] Start: 04-28-2020 End: 07-01-2024 Tobacco use and exposure Never used [facility] Start: 04-28-2020 End: 12-07-2024 Alcohol intake Ex-drinker (finding) [facility]ON[facility]LL Y Start: 2000 [facility] Start: 10-28-2021 End: 08-16-2024 Exposure to SARS-CoV-2 (event) Not sure [facility] MIRIAM Tobacco [facility] Comment on above: denies Start: 10-26-2023 End: 03-08-2024 Sex Assigned At Female [facility] Tobacco smoking status No Smoking Status Entered [facility] Start: 10-26-2023 End: 03-08-2024 History of Social function [facility] Start: 10-29-2022 Alcohol Comment caffeine: rarely [facility] Start: 1999 Sex assigned at Female [facility] Start: 10-19-2022 Gender identity Identifies as female gender (finding) [facility] Start: 05-18-2024 [facility] Tobacco smoking status NHIS Tobacco smoking consumption unknown [facility] Work Phone: Functional Status Date Assessment Result Facility 04-19-2024 Functional Status N/A [facility] 10-14-2022 Functional Status N/A [facility] 12-19-2021 Functional Status N/A [facility] 11-01-2021 Functional Status N/A [facility] Clinical Notes 04-28-2020 to 01-11-2025 Hillary Coreas LPN - 01/11/2025 2:30 PM CODY Eisenberg - 01/04/2025 1:50 PM CODY Eisenberg - 12/22/2024 2:00 PM Maida Costello LPN - 12/08/2024 11:30 AM CODY Eisenberg - 11/22/2024 11:40 AM EDT Note Date & Type Note Facility 01-11-2025 History of Presen t illness Narrative Reason [...] History: Diagnosis Date Pre-eclampsia ([facility]) HISTORY PAST MEDICAL HISTORY SOCIAL HISTORY Past Medical History: Diagnosis Date Pre-eclampsia ([facility]) Social History Tobacco Use Smoking status: Never [...] nursing note reviewed. Exam conducted with a record label internship present. Vitals: Estimated body mass index is 30.8 kg/m as calculated from the following: Height as of 10/26/23: 5' 6 . Weight as of this encounter: 190 lb 12.8 oz. BP: 122/64 Patient's last menstrual period was 05/04/2024. ASSESSMENT & PLAN ICD-10-CM 1. Third trimester ([facility]) Z34.93 POCT urinalysis dipstick manually resulted CULTURE, GROUP B STREP WITH SUSCEPTIBLITY CULTURE, GROUP B STREP WITH SUSCEPTIBLITY 2. 36 weeks gestation of ([facility]) Z3A.36 POCT urinalysis dipstick manually resulted 3. Amniotic band syndrome Q79.8 4. H/O pre-eclampsia in prior , currently ([facility]) O09.299 Patient is doing well but has [...] week for routine OB appointment Documented by Hlilary Coreas LPN on behalf of: Marco A Greene DO documented in this encounter [facility] 01-04-2025 History of Presen t illness Narrative [...] Past Medical History: Diagnosis Date Pre-eclampsia ([facility]) HISTORY PAST MEDICAL HISTORY SOCIAL HISTORY Past Medical History: Diagnosis Date Pre-eclampsia ([facility]) Social History Tobacco Use Smoking status: Never [...] nursing note reviewed. Exam conducted with a record label internship present. Vitals: Estimated body mass index is 30.3 kg/m as calculated from the following: Height as of 10/26/23: 5' 6 . Weight as of this encounter: 187 lb 12 oz. BP: 126/62 Patient's last menstrual period was 05/04/2024. ASSESSMENT & PLAN ICD-10-CM 1. Third trimester ([facility]) Z34.93 POCT urinalysis dipstick manually resulted 2. 35 weeks gestation of ([facility]) Z3A.35 Return OB: Patient presents today for [...] of: CODY Dumont documented in this encounter [facility] 12-22-2024 History of Presen t illness Narrative [...] History: Diagnosis Date Pre-eclampsia ([facility]) HISTORY PAST MEDICAL HISTORY SOCIAL HISTORY Past Medical History: Diagnosis Date Pre-eclampsia ([facility]) Social History Tobacco Use Smoking status: Never [...] & PLAN ICD-10-CM 1. Third trimester ([facility]) Z34.93 2. 33 weeks gestation of ([facility]) Z3A.33 3. Amniotic band syndrome Q79.8 US [...] of: CODY Dumont documented in this encounter [facility] 12-08-2024 History of Presen t illness [...] Problems Past Medical History: Diagnosis Date Pre-eclampsia ([facility]) HISTORY PAST MEDICAL HISTORY SOCIAL HISTORY Past Medical History: Diagnosis Date Pre-eclampsia ([facility]) Social History Tobacco Use Smoking status: Never [...] nursing note reviewed. Exam conducted with a record label internship present. Vitals: Estimated body mass index is 29.58 kg/m as calculated from the following: Height as of 10/26/23: 5' 6 . Weight as of this encounter: 183 lb 4 oz. BP: 122/66 Patient's last menstrual period was 05/04/2024. ASSESSMENT & PLAN ICD-10-CM 1. Third trimester ([facility]) Z34.93 2. 31 weeks gestation of ([facility]) Z3A.31 Patient presents today for a routine obstetrics appointment. Patient is currently 31w1d with a Estimated Date of Delivery: 02/08/25. Patient desires to have tubal ligation at time of on 02/01/25. Patient to return to clinic in 2-3 weeks for routine OB care. Documented by Rose Costello LPN on behalf of: Marco A Greene DO documented in this encounter [facility] 11-22-2024 History of Presen t illness [...] History: Diagnosis Date Pre-eclampsia ([facility]) HISTORY PAST MEDICAL HISTORY SOCIAL HISTORY Past Medical History: Diagnosis Date Pre-eclampsia ([facility]) Social History Tobacco Use Smoking status: Never [...] fetus inconsistent with dates in second trimester ([facility]) O26.842 US OB follow up transabdominal approach 2. Second trimester ([facility]) Z34.92 POCT urinalysis dipstick manually resulted 3. 28 weeks gestation of ([facility]) Z3A.28 POCT urinalysis dipstick manually resulted Return [...] A Greene DO documented in this encounter [facility] 10-25-2024 History of Presen t illness [...] History: Diagnosis Date Pre-eclampsia ([facility]) HISTORY PAST MEDICAL HISTORY SOCIAL HISTORY Past Medical History: Diagnosis Date Pre-eclampsia ([facility]) Social History Tobacco Use Smoking status: Never [...] ASSESSMENT & PLAN ICD-10-CM 1. Second trimester ([facility]) Z34.92 POCT urinalysis dipstick manually resulted 2. 24 weeks gestation of ([facility]) Z3A.24 3. HSV infection B00.9 4. H/O pre-eclampsia in prior , currently ([facility]) O09.299 5. Diabetes mellitus screening Z13.1 CBC Glucose tolerance, 1 hour CBC Glucose tolerance, 1 hour 6. Encounter for anatomic survey ([facility]) Z36.89 US OB limited 1+ fetuses Return [...] day. Patient is not being seen at [facility] no longer. Simona Currie gave patient a Rpt Anatomy US to have obtained in our office /[facility] due to the spine not seen [...] of: CODY Dumont documented in this encounter [facility] 09-27-2024 History of Presen t illness [...] nursing note reviewed. Exam conducted with a record label internship present. Vitals: Estimated body mass index is [...] A Greene DO documented in this encounter [facility] 08-29-2024 History of Presen t illness [...] nursing note reviewed. Exam conducted with a record label internship present. Vitals: Estimated body mass index is [...] A Greene DO documented in this encounter [facility] 08-01-2024 History of Presen t illness [...] nursing note reviewed. Exam conducted with a record label internship present. Vitals: Estimated body mass index is 26.95 kg/m as calculated from the following: Height as of 7/1/24: 5' 6 . Weight as of this [...] vyvanse 40mg daily. Will have referral to [facility]. She will begin progesterone at 16 weeks. Orders Placed This Encounter Procedures POCT urinalysis dipstick manually resulted Follow Up: Patient is to return to office in 4 week for routine OB appointment. Documented by Elvi Gerber NP on behalf of: Marco A Greene DO documented in this encounter [facility] 05-19-2024 History of Presen t illness [...] A Greene DO documented in this encounter [facility] 04-19-2024 Evaluation + Plan note Extrac nino from: Title:ED Note Author:Olga Davison, Amos De Oliveira te:04/19/24 1. Ear pain, right (H92.01: Otalgia, right ear) 2. Upper respiratory infection (J06.9: Acute upper respiratory infection, unspecified) [facility] 12-24-2024 Hospital Discharge instructions Patient Education [...] medicines to help relieve symptoms, such as: Rzqx-hxg-muboaoi cold medicines. Cough suppressants. Coughing is a [...] and other clear broths. General instructions Take liug-uvn-jwnhnzh and prescription medicines only as told by [...] and water are not available, use hand bag hanger. Avoid touching your mouth, face, eyes, or [...] provider. Document Revised: 11/13/2021 Document Reviewed: 11/13/2021 [employer] Patient Education 2023 [employer]. 04/19/2024 01:34:08 Earache, Adult Earache, Adult An [...] instructions at home: Medicines Take or apply ugre-wys-pxsrlqt and prescription medicines only as told by [...] provider. Document Revised: 08/25/2022 Document Reviewed: 08/25/2022 [employer] Patient Education 2023 [employer]. Follow Up Care 04/19/2024 01:06:30 With:Kathy Mccall Address: [address] [place] [address] [address], [facility] [address] [id number] [facility] (1) When:04/22/2024 Comments:Return to the emergency room if your pain recurs or any new symptoms. [facility] 12-24-2024 NoteED Patient Education Note ENT [...] at home: Medicines ??? Take or apply ecat-nuc-gulxzwb and prescription medicines only as told by [...] provider. Document Revised: 08/25/2022 Document Reviewed: 08/25/2022 [employer] Patient Education ? 2023 [employer]. Infectious Disease Upper Respiratory Infection, Adult An [...] your health care provide (more content not included)...[facility]11-12-2024 History of Present illness Narrative* Hillary Coreas, VULCANIZING PRESS OPERATOR - 03/08/2024 3:00 PM EST Reason for [...] nursing note reviewed. Exam conducted with a record label internship present. Vitals: Estimated body mass index is [...] Marco A Greene DO [id number] Hospital Discharge instructions Patient Education 10/14/2022 13:55:20 Sutures, Az[place], or Adhesive Wound Closure, Khyn-aq-Cnxn Sutures, [place], or Adhesive Wound Closure Doctors use stitches [...] ?Hold the edges of the wound together. ?[place] the glue onto your skin. You may [...] this with as many azalia as needed. Denver are faster to use than sutures, and they cause less reaction from your skin. [place] need to be taken out using a tool that bends the azalia away from your skin. Follow these instructions at home: Medicines Take vqro-cct-hzbpedu and prescription medicines only as told by [...] cannot use soap and water, use hand bag hanger. Do not try to take off or [...] provider. Document Revised: 08/19/2021 Document Reviewed: 08/19/2021 [employer] Patient Education 2022 [employer]. Follow Up Care 10/14/2022 12:20:41 With:Baljit Watts Address: [place], [address] [place] [address]- Business (1) When:10/17/2022 13:48:24 [facility]08-25-2022 Evaluation + Plan noteExtracted from: Title:ED [...] w/ Auto Diff eGFR PT & PTT [facility]08-25-2022 Hospital Discharge instructions Patient Education 12/19/2021 04:06:21 Dysfunctional Uterine Bleeding Dysfunctional Uterine Bleeding Dysfunctional uterine bleeding is abnormal bleeding from the uterus. Dysfunctional uterine bleedingincludes: A menstrual period that comes earlier or later than usual. A menstrual period that is green chainer or heavier than usual, or has large [...] to keep your urine pale yellow. ?Take swns-pwo-hnyikrj or prescription medicines. ?Eat foods that are high in fiber, such as beans, whole grains, and fresh fruits and vegetables. ?Limit foods that are high in fat and processed sugars, such as fried or sweet foods. Medicines Take ojex-owl-wlfjwxd and prescription medicines only as told by [...] 04/10/2001 Document Revised: 09/22/2018 Document Reviewed: 09/22/2018 [employer] Patient Education 2019 [employer] Follow Up Care 12/19/2021 01:46:43 With:Zac Martinez Address: Ted [address] [address] Business (1) When:12/22/2021 [facility]07-21-2022 NoteHNO ID: [id number] Author: Grover Amaral, DIXON Service: ? Author Type: LEADED GLASS INSTALLER Type: Progress Notes Filed: 11/14/2021 2:32 PM [...] Grover Amaral, OD November 14, 2021 2:29 [facility]07-21-2022 History of Present illness Narrative* Grover [...] 14, 2021 2:29 PM documented in [facility]22 NoteHNO ID: [id number] Author: Grover Amaral OD Service: ? Author Type: LEADED GLASS INSTALLER Type: Progress Notes Filed: 11/07/2021 4:03 PM [...] Grover Amaral OD November 07, 2021 4:03 [facility]07-14-2022 Miscellaneous Notes* Addendum Note - Grover Amaral OD - 11/07/2021 4:06 PM EDT Addended by: GROVER AMARAL on: 11/07/2021 04:06 PM Modules accepted: Orders documented in this [facility]-14-2022 History of Present illness Narrative* Grover Amaral [...] Grover Amaral, DIXON November 07, 2021 4:03 PM documented in this [facility]-2022 Evaluation + Plan note Extracted from: Title:ED Note Author:Keanu Kamara DO Date: Allergic reaction (T78.40XA: Allergy, unspecified, initial encounter) Orders: predniSONE, 60 mg = 3 tab(s), Oral, Daily, X 5 day(s), # 15 tab(s), Refills(s) 0, Pharmacy: [facility]/pharmacy #[id number], 165, cm, 11/01/21 8:11:00 EDT, Height/Length Dosing, 63, kg, 11/01/21 8:11:00 EDT, Weight Dosing [facility]07-08-2022 Hospital Discharge instructions Patient Education 11/01/2021 [...] care provider who specializes in treating allergies (band top maker) or eye conditions (director consumer) for tests to confirm the diagnosis. You [...] Eye drops. These may be prescription or gawh-saf-msavwev. There are several different types. You may [...] known allergens whenever possible. Take or apply ezfy-dvf-rtnkdld and prescription medicines only as told by [...] 07/04/2003 Document Revised: 03/26/2018 Document Reviewed: 10/24/2016 [facility] Patient Education [employer]. Follow Up Care 11/01/2021 08:05:40 With:Johanna Huynh Address: [address] [address]- Business (1) When:11/04/2021 08:24:58 Comments:Call today to arrange for follow-up appointment on Thursday or Thursday. Return to the ED with new or worsening symptoms as discussed. With:Baljit Watts Address: [address] [place] [address]- Business (1) When:11/04/2021 08:24:46 Comments:Call the office [...] you develop any new or worsening symptoms. [facility]05-25-2022 Hospital Discharge instructions Patient Education 09/18/2021 [...] may be recommended to support your foot. Utis-tjg-ranvayn anti-inflammatory medicines may also be recommended for [...] sitting or lying down. General instructions Take ugrr-mux-xwyrksy and prescription medicines only as told by [...] 02/02/2007 Document Revised: 12/14/2018 Document Reviewed: 12/14/2018 [facility] Patient Education 2020 [employer]. Follow Up Care 09/18/2021 09:48:23 With:Baljit Link Address: [address] [place] [address]- Business (1) When:09/21/2021 11:47:11 Comments:Return to the emergency room if your pain gets worse or any new symptom [facility]05-25-2022 Evaluation + Plan noteExtracted from: Title:ED Note Author:Olga Davison, Amos De Oliveira te:09/18/21 1. Contusion of left foot (S 90.32XA: Contusion of left foot, initial encounter) Orders: Post-op Shoe XR Foot 3+ Views Left [facility]01-02-2021 NoteDepartment of Obstetrics and Gynecology Delivery Discharge Summary Admission on 04/25/2020 1:08 PM Reason for admission: 04/25/2020 Intrapartum Course: N/A 30w6d PC- Indications for Delivery: Was patient delivered between 37w0d - 44i5nfxqrv? NO Surgical Operations & Procedures: Date of delivery: 04/26/2020 Delivery Type: without labor Anesthesia: Spinal anesthesia Laceration(s): n/a Delivery Complications: none EBL: 700 cc Pertinent Findings & Procedures: Information for the patient's : Ree Herrera [[id number]] female Weight: 2 lb 12.3 oz (1.256 kg) Apgars: Information for the patient's : Ree Herrera [[id number]] One Minute : 6 Five Minute : 7 Course: Magnesium sulfate and Procardia for PEWSF Infant: Female Blood Type/Rh: O POS Antibody Screen: Antibody Screen Date Value Ref Range Status 04/25/2020 NEG NA Final Rubella: No results found for: RUBELLAIGG Contraception: will be discussed with her provider at [place] : no VTE Prophylaxis: Not Indicated Meds: Anand Herrera Home Medication Instructions RANDA:[id number] Printed on:04/28/20 1238 Medication Information ferrous sulfate [...] in [address] Wray in [place]. Condition on discharge: Stable Discharge to: Home [...] know - She will follow with her EMAIL ADMINISTRATOR in [place] - I will call Dr. 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 [facility] Diagnosis Well woman exam with routine gynecological exam Routine gynecological examination [facility] Diagnosis control counseling [facility] in [facility]* Diagnosis 12 weeks gestation of First trimester state, incidental Amniotic band syndrome Other problem associated with amniotic cavity and membranes, unspecified as to episode of care [facility] Diagnosis as incidental finding ([facility]) documented in this encounter [facility] Work Phone: Evaluation note* Diagnosis History of miscarriage- Primary Personal history of other genital system and obstetric disorders Second trimester state, incidental 16 weeks gestation of STD exposure Vaginal discharge Leukorrhea, not specified as infective documented in this encounter [facility] HealthcareEvaluation note* Diagnosis Second trimester state, incidental 20 weeks gestation of Exposure to STD History of miscarriage Personal history of other genital system and obstetric disorders documented in this encounter [facility]* Diagnosis Second trimester ([facility]) state, incidental 24 weeks gestation of ([facility]) HSV infection Herpes simplex without mention of complication H/O pre-eclampsia in prior , currently ([facility]) Diabetes mellitus screening Screening for diabetes mellitus Encounter for anatomic survey ([facility]) Encounter for anatomic survey [facility] Diagnosis Size of fetus inconsistent with dates in second trimester ([facility])- Primary Second trimester ([facility]) state, incidental 28 weeks gestation of ([facility]) Mastitis Inflammatory disease of breast [facility]* Diagnosis Third trimester ([facility]) state, incidental 31 weeks gestation of ([facility]) Screening, , for anatomic survey ([facility]) Encounter for anatomic survey [facility]* Diagnosis Third trimester ([facility]) state, incidental 33 weeks gestation of ([facility]) Amniotic band syndrome Other problem associated with amniotic cavity and membranes, unspecified as to episode of care History of miscarriage Personal history of other genital system and obstetric disorders [facility]* Diagnosis Third trimester ([facility]) state, incidental 35 weeks gestation of ([facility]) [facility] Diagnosis Third trimester ([facility]) state, incidental 36 weeks gestation of ([facility]) Amniotic band syndrome Other problem associated with amniotic cavity and membranes, unspecified as to episode of care H/O pre-eclampsia in prior , currently ([facility]) documented in this encounter [facility] HealthcareHospital course Narrative No data available for this section [facility] No data available for this section [facility] No data available for this section [facility] N[facility]* Imaging (Routine) - Pending Review Specialty Diagnoses / Procedures Referred By Joseph hoff Referred To Contact Radiology Diagnoses as incidental finding ([facility]) Procedures US OB limited 1+ fetuses US MAC OB imaging order Marco A Greene DO [address] [facility] [address], [place] [address] Phone: tel: fax: Referral ID Status Reason Start Date Expiration Date Visits Requested Visits Authorized [id number] Pending Review Perform Procedure 08/03/2024 08/03/2025 1 1 [facility] Work Phone: Summary Purpose Family History No Family History Records FoundNo Family History Records FoundNo Family History Records FoundNo Family History Records FoundNo Family History Records Found No data available for this section No data available for this section No Family History Records FoundNo Family History Records Found Advance Directives Latest Code Status on File Code Status Date [...] Delivery: Was patient delivered between 37w0d - 49w2qokcce? NO Surgical Operations & Procedures: Date of delivery: 04/26/2020 Delivery Type: without labor Anesthesia: Spinal anesthesia Laceration(s): n/a Delivery Complications: none EBL: 700 cc Pertinent Findings & Procedures: Information for the patient's : Ree Herrera [[id number]] female Weight: 2 lb 12.3 oz (1.256 kg) Apgars: Information for the patient's : Ree Herrera [[id number]] One Minute : 6 Five Minute : 7 Course: Magnesium sulfate and Procardia for PEWSF Infant: Female infant Blood Type/Rh: O POS Antibody Screen: Antibody Screen Date Value Ref Range Status 04/25/2020 NEG NA Final Rubella: No results found for: RUBELLAIGG Contraception: will be discussed with her provider at [place] : no VTE Prophylaxis: Not Indicated Meds: Anand Herrera Home Medication Instructions RANDA:[id number] Printed on:04/28/20 6551 Medication Information ferrous sulfate (IRON 325) 325 [...] in [address] Wray in [place]. Condition on discharge: Stable Discharge to: Home [...] know - She will follow with her EMAIL ADMINISTRATOR in [place] - I will call Dr. Wray answering service at [phone] to update him with her condition, medications, [...] allowing us to care of you at [facility]. This time can be one of many [...] over the next few weeks. Bleeding may mushroom picker and then decrease again around 7-10 [...] avoid constipation you may take a mild dedt-aov-camknwl stool softener (such as colace) as recommended [...] clean your hands with an alcohol-based hand bag hanger that contains at least 60% alcohol. Clean your hands often Wash your hands often with soap and water for at least 20 seconds, especially after blowing your nose, coughing, or sneezing; going to the bathroom; and before eating or preparing food. If soap and water are not readily available, use an alcohol-based hand bag hanger with at least 60% alcohol, covering all [...] healthcare provider to call the local or [facility] health department. Persons who are placed [...] isolation precautions should be made on a uvbk-mq-kewo basis, in consultation with healthcare providers and [facility]. Information on COVID-19 for [...] respiratory tract signs and symptoms. Ways to [place] with Anxiety & Stress It is normal [...] an illness that was first found in [facility], in March 2019. It has [...] seen in people before. This virus spreads httvns-tr-kradea through droplets from coughing and sneezing. It [...] water aren't available, use an alcohol-based hand bag hanger. Call 911 anytime you think you may [...] as of: July 27, 2019 Content Version: . [employer]. Care instructions adapted under license by your healthcare professional. If you have questions about a medical condition or this instruction, always ask your healthcare professional. [employer] disclaims any warranty or liability for your use of this information. General Recommendations for Routine Cleaning and Disinfection of Households Community members can practice routine cleaning of frequently touched surfaces (for example: tables, doorknobs, light switches, handles, desks, toilets, faucets, sinks) with household staff air defense officer and EPA-registered disinfectants that are appropriate for [...] appropriate. These supplies include tissues, paper towels, staff air defense officer and EPA-registered disinfectants (see list link at [...] be used for other purposes. Consult the senior product manager's instructions for cleaning and disinfection products used. [...] used if appropriate for the surface. Follow senior product manager's instructions for application and proper ventilation. Check [...] o Products with EPA-approved emerging viral pathogens [facility] iconexternal icon are expected to be effective against COVID-19 based on data for harder to kill viruses. Follow the senior product manager's instructions for all cleaning and disinfection products (e.g., concentration, application method and contact time, etc.). Soft (porous) surfaces such as carpeted floor, rugs, and drapes Remove visible contamination if present and clean with appropriate staff air defense officer indicated for use on these surfaces. After cleaning: Launder items as appropriate in accordance with the senior product manager's instructions. If possible, launder items using the [...] items as appropriate in accordance with the senior product manager's instructions. If possible, launder items using the warmest appropriate water setting for the items and dry items completely. Dirtylaundry from an ill person can be washed with other people's items. o Clean and disinfect clothes hampers according to guidance above for surfaces. If possible, consider placing a bag hanger that is either disposable (can be thrown away) or can be laundered. CDC has a list of EPA approved cleaning products on their website - https://www.cdc.gov/coronavirus/ 2019-ncov/community/home/cleaning-disinfection.html https://www.ePantry.com/Fwtkj-Bxylyjxhutv-Rqsdjpfg-Products-List.pdf [employer] Stores with delivery and mushroom picker services: [employer]: Free mushroom picker at locations Delivery is $12.95 a month Website - [employer]: Automobile Appraiser $2.95 (1st order is free) Delivery is $14.95 Website - [employer]: molding room supervisor is free Delivery is $5.95 [employer] - [employer]: molding room supervisor is $4.95 Delivery is $9.95 Website [employer]: molding room supervisor is $4.95 Delivery is $9.95 Website [employer]: Can be ordered for delivery and mushroom picker with [employer] Website - [employer]redUP [employer]: Free deliver for first 3 orders of $35 or more Website aldiApixio Will deliver from CVS, Me[employer], [employer], and [...] 2. PreEwSF - severe range Bps at [facility], acutely treated with 5mg IV labetalol, 100mg [...] know - She will follow with her EMAIL ADMINISTRATOR in [place] - I will call Dr. Wray answering service at [phone] to update him with her condition, medications, [...] MD - 04/25/2020 11:32 PM EST MFM transcriptionist physician tracing review from earlier admission with [...] Viewed tracing with Dr. Castellanos since approximately 0 admission time 130 baseline with variability Cat [...] concern for concealed abruption. I did not pet adoption counselor the patient directly of the [...] day, as when she first arrived to [facility] more moderate than minimal. Patient [...] section and content) DATE CREATED AUTHOR 04/18/2020 [facility] DATE CREATED AUTHOR AUTHOR'S ORGANIZ ATION 02/28/2021 [facility] DATE CREATED AUTHOR AUTHOR'S ORGANIZ ATION 11/16/2021 [facility] DATE CREATED AUTHOR AUTHOR'S ORGANIZ ATION 09/10/2022 [facility] DATE CREATED AUTHOR AUTHOR'S ORGANIZ ATION 11/13/2022 [facility] DATE CREATED AUTHOR AUTHOR'S ORGANIZ ATION 04/22/2024 [facility] DATE CREATED AUTHOR AUTHOR'S ORGANIZ ATION 01/06/2025 [facility] dical Specialists EPIC Reason for Visit (unrecogniz [...] Care Team (unrecognized sect ion and content) Aircraft Maintenance Instructor Relationship Specialty Start Date End Date Baljit Watts MD [address] [place] [address] PCP - General Family Practice 11/07/21 Aircraft Maintenance Instructor Relationship Specialty Start Date End Date Baljit Watts MD [address] [place] [address] PCP - General Family Practice 11/07/21 Aircraft Maintenance Instructor Relationship Specialty Start Date End Date LinkBaljit MD [address] [place] [address] PCP - General Family Medicine 10/20/22 Aircraft Maintenance Instructor Relationship Specialty Start Date End Date LinkBaljit MD [address] [place] [address] PCP - General Family Medicine 10/20/22 Aircraft Maintenance Instructor Relationship Specialty Start Date End Date LinkBaljit MD [address] [place] [address] PCP - General Family Medicine 10/20/22 Aircraft Maintenance Instructor Relationship Specialty Start Date End Date LinkBaljit MD [address] [place] [address] PCP - General Family Medicine 10/20/22 Aircraft Maintenance Instructor Relationship Specialty Start Date End Date LinkBaljit MD PCP - General Family Medicine 10/20/22 Aircraft Maintenance Instructor Relationship Specialty Start Date End Date Link, MD Baljit PCP - General Family Medicine 10/20/22 Aircraft Maintenance Instructor Relationship Specialty Start Date End Date Link, MD Baljit PCP - General Family Medicine 10/20/22 Aircraft Maintenance Instructor Relationship Specialty Start Date End Date Link, MD Baljit PCP - General Family Medicine 10/20/22 Aircraft Maintenance Instructor Relationship Specialty Start Date End Date Link, MD Baljit PCP - General Family Medicine 10/20/22 Aircraft Maintenance Instructor Relationship Specialty Start Date End Date Link, MD Baljit PCP - General Family Medicine 10/20/22 Aircraft Maintenance Instructor Relationship Specialty Start Date End Date Link, MD Baljit PCP - General Family Medicine 10/20/22 Aircraft Maintenance Instructor Relationship Specialty Start Date End Date Link, MD Baljit PCP - General Family Medicine 10/20/22 Aircraft Maintenance Instructor Relationship Specialty Start Date End Date Link, MD Baljit PCP - General Family Medicine 10/20/22 Aircraft Maintenance Instructor Relationship Specialty Start Date End Date Link, MD Baljit PCP - General Family Medicine 10/20/22 Aircraft Maintenance Instructor Relationship Specialty Start Date End Date Link, MD Baljit PCP - General Family Medicine 10/20/22 Aircraft Maintenance Instructor Relationship Specialty Start Date End Date Mac MD Baljit PCP - General Family Medicine 10/20/22 Source Comments (unrecognize d section and content) In the event this informatio n is protected by the [facility] Confidentiality of Alcohol and Drug Abuse Patient Records regulations: The Federal rules restrict any use of the information to criminally investigate or prosecute any alcohol or drug abuse patient.[facility] the event this information is protected by the Federal Confidentiality of Alcohol and Drug Abuse Patient Records regulations: The Federal rules restrict any use of the information to criminally investigate or prosecute any alcohol or drug abuse patient.[facility] FOR RECORDS PERTAINING TO PATIENTS WHO ARE [...] BE BASED ON THE PRIMARY CLINICAL RECORDS. [facility]. provides no warranty or guarantee of the accuracy or completeness of information in this document.
--- OUTSIDE RECORDS SUMMARY | 2025-01-11 20:39 | XMS_ITS | Encounter Summary ---
Author Organization [facility] Address [address] [place] [address] Care Team Providers Care Control Panel Builder Name Role Phone Link, Baljit PRETTY Primary Care Provider Encounter Details Date Type Department Care Team (Late Contact Info) Description 01/11/2025 Bamboo flowsheet [facility] Erlinda [address] [address] [place] [address] Marco A Greene DO [facility] [address], [place] [address] Social History Tobacco Use Types Packs/Day Years [...] EST Office Visit [facility] Erlinda [address] [address] [place] [address] Marco A Greene DO [address], [facility]11 documented as of this encounter Visit Diagnoses Not on filedocumented in this encounter Care Teams Control Panel Builder Relationship Specialty Start Date End Date Baljit Watts MD PCP - General Family Medicine 10/20/22 documented as of this encounter
--- OUTSIDE RECORDS SUMMARY | 2025-01-11 20:39 | XMS_ITS | Encounter Summary ---
Author Organization [facility] Address [address] [place] [address] Care Team Providers Care Diamond Driller Helper Name Role Phone Link, Baljit PRETTY Primary Care Provider Encounter Details Date Type Department Care Team (Late Contact Info) Description 08/16/2024 Abstract LON [address]A [address] [place] [address] Marco A Greene DO [facility] [address], [place] [address] Social History Tobacco Use Types Packs/Day Years [...] Office Visit LON [address] [place] [address] Marco A Greene DO [address], [facility]11 documented as of this encounter Visit Diagnoses Not on filedocumented in this encounter Care Teams Diamond Driller Helper Relationship Specialty Start Date End Date Baljit Watts MD PCP - General Family Medicine 10/20/22 documented as of this encounter
--- OUTSIDE RECORDS SUMMARY | 2025-01-11 20:39 | XMS_ITS | Encounter Summary ---
Author Organization [facility] Address [address] [facility] [place] [address] Care Team Providers Care Upper Leather Sorter Name Role Phone Link, Baljit PRETTY Primary Care Provider [phone] Encounter Details Date Type Department Care Team (Late Contact Info) Description 11/14/2022 Abstract [facility] BARRERA [address] [place] [address] [place] [address] Simona Currie PA [address] [place] [address] [address] [place], [place] [address] Social History Tobacco Use Types Packs/Day Years [...] 11:00 AM EST Office Visit [facility] BARR[facility]A [address] [place] [address] [place] [address] Marco A Greene DO [address] [place] [address] [place] [address] documented as of this encounter Visit Diagnoses Not on filedocumented in this encounter Care Teams Upper Leather Sorter Relationship Specialty Start Date End Date Baljit Watts MD PCP - General Family Medicine 10/20/22 documented as of this encounter
--- OUTSIDE RECORDS SUMMARY | 2025-01-11 20:39 | XMS_ITS | Encounter Summary ---
Author Organization [facility] Address [address] [place] [address] Care Team Providers Care Profile Saw Setup Operator Name Role Phone Link, Baljit PRETTY Primary Care Provider [phone] Encounter Details Date Type Department Care Team (Late st Contact Info) Description 12/29/2024 Clinisync Result Encounter [facility] External Department Unsolicited Marco A Greene DO [address] [place] [address] Social History Tobacco Use Types Packs/Day Years [...] [facility] [address] [place] [phone] Marco A Greene DO [address] [place] [address] documented as of this encounter Procedures Procedure Name Priority Date/Time Associated Diagnosis Comments US OB BPP W NON-STRESS 12/29/2024 7:37 PM EDT documented in this encounter Results * US OB BPP W NON-STRESS (12/29/2024 7:37 PM EDT) Anatomical Region Laterality Modality Other 12/29/2024 7:37 PM EDT Narrative 12/29/2024 7:40 [place] [address] Ultrasound Report Signed Patient: ANAND HERRERA MR#: [id number] : 2000 Acct:[id number] Age/Sex: 24 / F ADM Date: 12/29/24 Loc: US Attending Dr: Marco A Greene D.O. Ordering Physician: Marco A Greene D.O. Date of Service: 12/29/24 Procedure(s): US OB BPP w non-stress Accession Number(s): [id number] cc: Marco A Greene D.O.; Physician,Non-Staff [place] [address] Patient Name: ANAND HERRERA MRN: [facility]:[id number] date: 2000 Sex: F Assigned Patient Location: [facility] Current Patient Location: Accession/Order Number: [id number] Exam Date: 12/29/2024 17:15 Report Date: 12/29/2024 [...] Bo M.D. 12/29/2024 7:37 PM [facility]ictation [facility] Electronically authenticated by: [id number] Y Date: 12/29/2024 19:37 Dictated By: Charles Bo D.O. Signed By: 12/29/241939 DD/ 36 TD/TT: Foundry Supervisor: Procedure Note Radiology, Radiologist, - 12/29/2024 [place] [address] Ultrasound Report Signed Patient: ANAND HERRERA EMR#: [id number] : 2000Acct:[id number] Age/Sex: / FADM Date: 12/29/24 Loc: US Attending Dr: Marco A Greene D.O. Ordering Physician: Marco A Greene D.O. Date of Service: 12/29/24 Procedure(s): US OB BPP w non-stress Accession Number(s): [id number] cc: Marco A Greene D.O.; Physician,Non-Staff [address] [address] Patient Name: ANAND HERRERA MRN: [facility]:[id number] date: 2000 Sex: F Assigned Patient Location: [facility] Current Patient Location: Accession/Order Number: [id number] Exam Date: 12/29/2024 17:15 Report Date: 12/29/2024 [...] Bo M.D. 12/29/2024 7:37 PM Dictation Location: [employer] Electronically authenticated by: [id number] Y Date: 9:37 Dictated By: Charles Bo D.O. Signed By:12/29/241939 DD/ 36 TD/TT: Foundry Supervisor: us Marco A Greene DO [facility] Final Result documented in this encounter Visit Diagnoses Not on filedocumented in this encounter Care Teams Profile Saw Setup Operator Relationship Specialty Start Date End Date Baljit Watts MD PCP - General Family Medicine 10/20/22 documented as of this encounter
--- OUTSIDE RECORDS SUMMARY | 2025-01-11 20:39 | XMS_ITS | Encounter Summary ---
Author Organization [facility] Address [address] [place] [address] Care Team Providers Care Sales Service Route Manager Name Role Phone Link, Baljit PRETTY Primary Care Provider Encounter Details Date Type Department Care Team (Late st Contact Info) Description 02/09/2023 Clinisync Result Encounter NOMS External Department Unsolicited Marco A Greene DO [address], [facility]11 Social History Tobacco Use Types Packs/Day [...] Visit [facility] [address] [place] [address] Marco A Greene DO [address], [place] [address] documented as of this encounter Procedures Procedure Name Priority Date/Time Associated Diagnosis Comments US OB GROWTH 02/09/2023 4:38 PM EDT documented in this encounter Results * US OB GROWTH (02/09/2023 4:38 PM EDT) Anatomical Region Laterality Modality Other 02/09/2023 4:38 PM EDT Narrative 02/09/2023 4:38 PM EDT [address] [address] Ultrasound Report Signed Patient: ANAND HERRERA MR#: [id number] : 2000 Acct:[id number] Age/Sex: 22 / F ADM Date: 02/09/23 Loc: US Attending Dr: Marco A Greene D.O. Ordering Physician: Marco A Greene D.O. Date of Service: 02/09/23 Procedure(s): US OB growth Accession Number(s): [id number] cc: Marco A Greene D.O. [address] [id number] Patient Name: ANAND HERRERA MRN: [facility]:[id number] date: 2000 Sex: F Assigned Patient Location: Current Patient Location: Accession/Order Number: [id number] Exam Date: 02/09/2023 13:00 Report Date: 02/09/2023 [...] Signed By: 02/09/23 1640 DD/ 1638 TD/TT: Professional Athletes Coach: Procedure Note Radiology, Radiologist, - 02/09/2023 [place] [address] Ultrasound Report Signed Patient: ANAND HERRERA EMR#: [id number] : 2000Acct:[id number] Age/Sex: 22 / FADM Date: 02/09/23 Loc: US Attending Dr: Marco A Greene D.O. Ordering Physician: Marco A Greene D.O. Date of Service: 02/09/23 Procedure(s): US OB growth Accession Number(s): [id number] cc: Marco A Greene D.O. The [place] [id number] Patient Name: ANAND HERRERA MRN: [facility]:[id number] date: 2000 Sex: F Assigned Patient Location: US Current Patient Location: US Accession/Order Number: [id number] Exam Date: 02/09/2023 13:00 Report Date: 02/09/2023 [...] M.D. Signed By:02/09/23 1640 DD/ 1638 TD/TT: Professional Athletes Coach: us Marco A Jc DO [facility] Final Result documented in this encounter Visit Diagnoses Not on filedocumented in this encounter Care Teams Sales Service Route Manager Relationship Specialty Start Date End Date Baljit Watts MD PCP - General Family Medicine 10/20/22 documented as of this encounter
== END 2025-01-11 20:36 | disposition home or self-care (01) ==
LOC: LAB 20:35
PROVIDERS: Visit Provider Obstetrics & Gynecology
DX: Z34.93 Encounter for supervision of normal pregnancy, unspecified, third trimester (principal)
CPT/HCPCS: 87081

== ENCOUNTER 2025-01-12 16:52 | Outpatient (OUT) | payer OTHER, SELFPAY ==
--- OUTSIDE RECORDS SUMMARY | 2025-01-04 13:50 | XMS_ITS | Encounter Summary ---
Author Organization [facility] Address [address] [place] [address] Care Team Providers Care Coastal And Estuary Specialist Name Role Phone Link, Baljit PRETTY Primary Care Provider [phone] Reason for Visit * Reason Comments Routine Visit Encounter Details Date Type Department Care Team (Late st Contact Info) Description 01/04/2025 1:50 PM EDT Routine NOMEmelia BARRERA [address] [place] [address] Simnoa Currie PA [address] [place], [facility]11 Third trimester ([facility]); 35 weeks gestation of ([facility]) Social History Tobacco Use Types Packs/Day Years [...] Problems Past Medical History: Diagnosis Date Pre-eclampsia ([facility]) HISTORY PAST MEDICAL HISTORY SOCIAL HISTORY Past Medical History: Diagnosis Date Pre-eclampsia ([facility]) Social History Tobacco Use Smoking status: Never [...] nursing note reviewed. Exam conducted with a car tester present. Vitals: Estimated body mass index is 30.3 kg/m?? as calculated from the following: Height as of 10/26/23: 5' 6 . Weight as of this encounter: 187 lb 12 oz. BP: 126/62 Patient's last menstrual period was 05/04/2024. ASSESSMENT & PLAN ICD-10-CM 1. Third trimester ([facility]) Z34.93 POCT urinalysis dipstick manually resulted 2. 35 weeks gestation of ([facility]) Z3A.35 Return OB: Patient presents today for [...] EST Office Visit [facility] Erlinda OBGYN [address] [place] [address] Marco A Greene DO [address] [facility] [place] [address] documented as of this encounter Procedures Procedure Name Priority Date/Time Associated Diagnosis Comments POCT URINALYSIS DIPSTICK Routine 01/04/2025 1:32 PM EDT Third trimester ([facility]) documented in this encounter Results * (ABNORMAL) [...] this encounter Visit Diagnoses Diagnosis Third trimester ([facility]) state, incidental 35 weeks gestation of ([facility]) documented in this encounter Care Teams Coastal And Estuary Specialist Relationship Specialty Start Date End Date Baljit Watts MD PCP - General Family Medicine 10/20/22 documented as of this encounter
--- OUTSIDE RECORDS SUMMARY | 2025-01-11 14:30 | XMS_ITS | Encounter Summary ---
Author Organization [facility] Address [address] [place] [address] Care Team Providers Care Guidance Counselor Name Role Phone Link, Baljit PRETTY Primary Care Provider [phone] Reason for Visit * Reason Comments Routine Visit Encounter Details Date Type Department Care Team (Late st Contact Info) Description 01/11/2025 2:30 PM EDT Routine [facility] Coffey OBGYN [address] [place] [address] Marco A Greene DO [address] [facility] [address] Franchesca Coffey, [facility] Third trimester ([facility]); 36 weeks gestation of ([facility]); Amniotic band syndrome; H/O pre-eclampsia in prior , currently ([facility]) Social History Tobacco Use Types Packs/Day Years [...] this encounter Progress Notes * Hillary Coreas, DOUGH MIXER - 01/11/2025 2:30 PM EDT Reason for [...] Problems Past Medical History: Diagnosis Date Pre-eclampsia ([facility]) HISTORY PAST MEDICAL HISTORY SOCIAL HISTORY Past Medical History: Diagnosis Date Pre-eclampsia ([facility]) Social History Tobacco Use Smoking status: [...] nursing note reviewed. Exam conducted with a filament tester present. Vitals: Estimated body mass index is 30.8 kg/m?? as calculated from the following: Height as of 10/26/23: 5' 6 . Weight as of this encounter: 190 lb 12.8 oz. BP: 122/64 Patient's last menstrual period was 05/04/2024. ASSESSMENT & PLAN ICD-10-CM 1. Third trimester ([facility]) Z34.93 POCT urinalysis dipstick manually resulted CULTURE, GROUP B STREP WITH SUSCEPTIBLITY CULTURE, GROUP B STREP WITH SUSCEPTIBLITY 2. 36 weeks gestation of ([facility]) Z3A.36 POCT urinalysis dipstick manually resulted 3. Amniotic band syndrome Q79.8 4. H/O pre-eclampsia in prior , currently ([facility]) O09.299 Patient is doing well but has [...] for routine OB appointment Documented by Hillary Coraes LPN on behalf of: Marco A Greene DO documented in this encounter Plan of Treatment Upcoming Encounters Date Type Department Care Team (Late st Contact Info) Description 03/14/2025 11:00 AM EST Office Visit [facility] [address] [place] [address] Marco A Greene, DO [address] [place] [address] [place] [address] Scheduled Orders Name Type Priority Associated Diagnoses Orde r Schedule CULTURE, GROUP B STREP WITH SUSCEPTIBLITY Lab Routine Third trimester ([facility]) Expected: 01/11/2025, Expires: 01/11/2026 documented as of this encounter Procedures Procedure Name Priority Date/Time Associated Diagnosis Comments POCT URINALYSIS DIPSTICK Routine 01/11/2025 2:47 PM EDT Third trimester ([facility]) 36 weeks gestation of ([facility]) documented in this encounter Results * (ABNORMAL) [...] this encounter Visit Diagnoses Diagnosis Third trimester ([facility]) state, incidental 36 weeks gestation of ([facility]) Amniotic band syndrome Other problem associated with amniotic cavity and membranes, unspecified as to episode of care H/O pre-eclampsia in prior , currently ([facility]) documented in this encounter Care Teams Guidance Counselor Relationship Specialty Start Date End Date Baljit Watts MD PCP - General Family Medicine 10/20/22 documented as of this encounter
--- OUTSIDE RECORDS SUMMARY | 2025-01-12 16:54 | XMS_ITS | Encounter Summary ---
Author Organization [facility] Address [address] [place] [address] Care Team Providers Care Clay Processing Factory Worker Name Role Phone Link, Baljit PRETTY Primary Care Provider [phone] Encounter Details Date Type Department Care Team (Late Contact Info) Description 09/29/2022 Abstract NOMEmelia BARRERA [address] [place] [address] [place] [address] Marco A Greene DO [address] [place] [address] [place], [place] [address] Social History Tobacco Use Types Packs/Day Years [...] 11:00 AM EST Office Visit LON BARRERA [facility] [place] [address] Marco A Greene DO [address], [facility]11 documented as of this encounter Visit Diagnoses Not on filedocumented in this encounter Care Teams Clay Processing Factory Worker Relationship Specialty Start Date End Date Link, MD Baljit PCP - General Family Medicine 10/20/22 documented as of this encounter
--- OUTSIDE RECORDS SUMMARY | 2025-01-12 16:54 | XMS_ITS | Encounter Summary ---
Author Organization [facility] Address [address] [place] [address] Care Team Providers Care General Magistrate Name Role Phone Link, Baljit PRETTY Primary Care Provider [phone] Encounter Details Date Type Department Care Team (Late st Contact Info) Description 09/26/2022 Clinisync Result Encounter NOMS External Department Unsolicited Marco A Greene, DO [address], [facility]11 Social History Tobacco [...] EST Office Visit LON Coffey OBGYN [address] [place] [address] Marco A Greene DO [address] [place] [address] documented as of this encounter Procedures Procedure [...] gestational sac with a live fetus - [place] rump length is consistent with given OTF [...] Extended Nasal bone: present Anatomy Heart: Normal Grubbs and Situs. Stomach: Visible, with correct situs. [...] gestational sac with a live fetus - [place] rump length is consistent with given OTF [...] Extended Nasal bone: present Anatomy Heart: Normal Grubbs and Situs. Stomach: Visible, with correct situs. [...] signed by: JESS FELDMAN MD [facility] Final Result documented in this encounter Visit Diagnoses Not on filedocumented in this encounter Care Teams General Magistrate Relationship Specialty Start Date End Date Baljit Watts MD PCP - General Family Medicine 10/20/22 documented as of this encounter
--- OUTSIDE RECORDS SUMMARY | 2025-01-12 16:55 | XMS_ITS | Encounter Summary ---
Author Organization [facility] Address [address] [place] [place] [address] Care Team Providers Care Furnace Builder Name Role Phone Link, Baljit PRETTY Primary Care Provider [phone] Encounter Details Date Type Department Care Team (Late Contact Info) Description 08/16/2024 Abstract LON BARRERA [address] [place] [address] Marco A Greene DO [facility] [address], [place] [address] Social History Tobacco Use Types Packs/Day Years [...] Office Visit LON BARRERA [address] [place] [address] Marco A Greene DO [address], [facility]11 documented as of this encounter Visit Diagnoses Not on filedocumented in this encounter Care Teams Furnace Builder Relationship Specialty Start Date End Date Baljit Watts MD PCP - General Family Medicine 10/20/22 documented as of this encounter
--- OUTSIDE RECORDS SUMMARY | 2025-01-12 16:55 | XMS_ITS | Clinical Summary ---
Author Organization [facility] Address [address] [place] [address] Phone Care Team Providers Care Chief Ophthalmic Technician Name Role Phone Unavailable Primary Care Provider Unavailabl e Allergies No known active allergies Medications [id number] c acid (PreNata) 29 mg iron- 1 [...] patient's age to complete this topic Insurance [facility]
--- OUTSIDE RECORDS SUMMARY | 2025-01-12 16:55 | XMS_ITS | Encounter Summary ---
Author Organization [facility] Address [address] [place] [address] Care Team Providers Care Manager Customer Name Role Phone Unavailable Primary Care Provider Unavailabl e Encounter Details Date Type Department Care Team ([facility] st Contact Info) Description 04/25/2020 Scanned Document [facility] Mother Baby H[address] [place] [phone] Provider, Legacy Conversion Social History Tobacco Use [...]
--- OUTSIDE RECORDS SUMMARY | 2025-01-12 16:55 | XMS_ITS | Encounter Summary ---
Author Organization [facility] Address [address] [place] [address] Care Team Providers Care Gold Assayer Name Role Phone Link, Baljit Gilbert DO Primary Care Provider [phone] Source Comments In the event this information is protected by the Federal Confidentiality of Alcohol and Drug AbusePatient Records regulations: The Federal rules restrict any use of the information to criminally investigate or prosecute any alcohol or drug abuse patient.[facility] Encounter Details Date Type Department Care Team (Late st Contact Info) Description 11/18/2021 Get Medical Advice Ophthalmology [address] [place] [address] Elmer Sheets, OD [address] [facility] [place] [address] Tobradex Gel Social History Tobacco [...] on filedocumented in this encounter Care Teams Gold Assayer Relationship Specialty Start Date End Date Link, Baljit Gilbert DO [address] [place] [address] PCP - General Family Medicine 11/07/21 documented as of this encounter
--- OUTSIDE RECORDS SUMMARY | 2025-01-12 16:55 | XMS_ITS | Clinical Summary ---
Author Organization [email or web address] Address [address] [place] [address] Care Team Providers Care Hollock Maker Name Role Phone Unavailable Primary Care [...]
--- OUTSIDE RECORDS SUMMARY | 2025-01-12 16:55 | XMS_ITS | Encounter Summary ---
Author Organization [facility] Address [address] [place] [address] Care Team Providers Care Internet Manager Name Role Phone Link, Baljit PRETTY Primary Care Provider [phone] Encounter Details Date Type Department Care Team (Late Contact Info) Description 01/04/2025 Bamboo flowsheet [facility] Erlinda BARRERA [address] [place] [address] Simona Currie PA [address] [facility] [address] [place], [place] [address] Social History Tobacco Use Types Packs/Day Years [...] EST Office Visit NOMS Erlinda BARRERA [address] [facility] [address] Marco A Greene, [address] [facility] [address] [place], [facility]11 documented as of this encounter Visit Diagnoses Not on filedocumented in this encounter Care Teams Internet Manager Relationship Specialty Start Date End Date Baljit Watts MD PCP - General Family Medicine 10/20/22 documented as of this encounter
--- OUTSIDE RECORDS SUMMARY | 2025-01-12 16:55 | XMS_ITS | Encounter Summary ---
Author Organization [facility] Address [address] [place] [address] Care Team Providers Care Quantitative Software Engineer Name Role Phone Link, Baljit PRETTY Primary Care Provider [phone] Encounter Details Date Type Department Care Team (Late Contact Info) Description 01/11/2025 Bamboo flowsheet [facility] Erlinda BARRERA [address] [place] [address] Marco A Greene DO [facility] [address], [place] [address] Social History Tobacco Use Types Packs/Day Years [...] Visit [facility]S Erlinda BARRERA [address] [place] [address] Marco A Greene DO [address], [facility]11 documented as of this encounter Visit Diagnoses Not on filedocumented in this encounter Care Teams Quantitative Software Engineer Relationship Specialty Start Date End Date Baljit Watts MD PCP - General Family Medicine 10/20/22 documented as of this encounter
--- OUTSIDE RECORDS SUMMARY | 2025-01-12 16:55 | XMS_ITS | Clinical Summary ---
Author Organization [facility] Address [address] [facility], [address] [place] [address] Care Team Providers Care Drug And Alcohol Counsellor Name Role Phone Unavailable Primary Care Provider [...]
--- OUTSIDE RECORDS SUMMARY | 2025-01-12 16:55 | XMS_ITS | Encounter Summary ---
Author Organization [facility] Address [address] [place] [address] Care Team Providers Care Cast Iron Drain Pipe Layer Name Role Phone Link, Baljit PRETTY Primary Care Provider [phone] Encounter Details Date Type Department Care Team (Late st Contact Info) Description 12/29/2024 Clinisync Result Encounter NOMS External Department Unsolicited Marco A Greene DO [address] [place] [address] Social History Tobacco Use Types Packs/Day Years [...] Visit [facility] OBG[facility] [address] [place] [address] Marco A Greene DO [address] [place] [address] documented as of this encounter Procedures Procedure Name Priority Date/Time Associated Diagnosis Comments US OB BPP W NON-STRESS 12/29/2024 7:37 PM EDT documented in this encounter Results * US OB BPP W NON-STRESS (12/29/2024 7:37 PM EDT) Anatomical Region Laterality Modality Other 12/29/2024 7:37 PM EDT Narrative 12/29/2024 7:40 [place] [address] Ultrasound Report Signed Patient: ANAND HERRERA MR#: [id number] : 2000 Acct:[id number] Age/Sex: 24 / F ADM Date: 12/29/24 Loc: US Attending Dr: Marco A Greene D.O. Ordering Physician: Marco A Greene D.O. Date of Service: 12/29/24 Procedure(s): US OB BPP w non-stress Accession Number(s): [id number] cc: Marco A Greene D.O.; Physician,Non-Staff [address] [place] [address] Patient Name: ANAND HERRERA MRN: [id number] date: 2000 Sex: F Assigned Patient Location: [facility] Current Patient Location: Accession/Order Number: [id number] Exam Date: 12/29/2024 17:15 Report Date: 12/29/2024 [...] Bo M.D. 12/29/2024 7:37 PM Dictation [facility] Electronically authenticated by: [id number] Y Date: 12/29/2024 19:37 Dictated By: Charles Bo D.O. Signed By: 12/29/241939 DD/ 36 TD/TT: 3D Artist: Procedure Note Radiology, Radiologist, - 12/29/2024 [place] [address] Ultrasound Report Signed Patient: ANAND HERRERA EMR#: [id number] : 2000Acct:[id number] Age/Sex: / FADM Date: 12/29/24 Loc: US Attending Dr: Marco A Greene D.O. Ordering Physician: Marco A Greene D.O. Date of Service: 12/29/24 Procedure(s): US OB BPP w non-stress Accession Number(s): [id number] cc: Marco A Greene D.O.; Physician,Non-Staff [address] [place] [address] Patient Name: ANAND HERRERA MRN: [facility]:[id number] date: 2000 Sex: F Assigned Patient Location: [facility] Current Patient Location: Accession/Order Number: [id number] Exam Date: 12/29/2024 17:15 Report Date: 12/29/2024 [...] Bo M.D. 12/29/2024 7:37 PM Dictation Location: [employer] Electronically authenticated by: [id number] Y Date: 9:37 Dictated By: Charles Bo D.O. Signed By:12/29/241939 DD/ 36 TD/TT: 3D Artist: us Marco A Greene DO [facility] Final Result documented in this encounter Visit Diagnoses Not on filedocumented in this encounter Care Teams Cast Iron Drain Pipe Layer Relationship Specialty Start Date End Date Baljit Watts MD PCP - General Family Medicine 10/20/22 documented as of this encounter
--- OUTSIDE RECORDS SUMMARY | 2025-01-12 16:55 | XMS_ITS | Encounter Summary ---
Author Organization [facility] Address [address] [place] [address] Care Team Providers Care Kitchen Supervisor Name Role Phone Link, Baljit PRETTY Primary Care Provider [phone] Encounter Details Date Type Department Care Team (Late st Contact Info) Description 03/13/2023 Clinisync Result Encounter NOMS External Department Unsolicited Marco A Greene DO [address], [facility]11 Social History Tobacco Use Types Packs/Day Years [...] Visit [facility]elia Coffey OBGYN [address] [place] [address] Marco A Greene DO [address] [place], [facility]11 documented as of this encounter Procedures Procedure Name Priority Date/Time Associated Diagnosis Comments US OB BPP W NON-STRESS 03/13/2023 8:47 AM EST documented in this encounter Results * US OB BPP W NON-STRESS (03/13/2023 8:47 AM EST) Anatomical Region Laterality Modality Other 03/13/2023 8:47 AM EST Narrative 03/13/2023 8:47 [place] [address] Ultrasound Report Signed Patient: ANAND HERRERA MR#: [id number] : 2000 Acct:[id number] Age/Sex: 22 / F ADM Date: 03/13/23 Loc: [facility] 254-[address]: Marco A Greene D.O. Ordering Physician: Marco A Greene D.O. Date of Service: 03/13/23 Procedure(s): US OB BPP w non-stress Accession Number(s): [id number] cc: Marco A Greene D.O.; Physician,Non-Staff M.[facility] The [address] [address] Patient Name: ANAND HERRERA MRN: [id number] date: 2000 Sex: F Assigned Patient Location: [facility] Current Patient Location: [facility] Accession/Order Number: [id number] Exam Date: 03/13/2023 07:50 Report Date: 03/13/2023 [...] Nicole M.D. Signed By: 03/13/2349 DD/ TD/TT: Business English Instructor: Procedure Note Radiology, Radiologist, - 03/13/2023 [place] [address] Ultrasound Report Signed Patient: ANAND HERRERA EMR#: [id number] : 2000Acct:[id number] Age/Sex: Date: 03/13/23 Loc: [facility] 254-[address]: Marco A Greene D.O. Ordering Physician: Marco A Greene D.O. Date of Service: 03/13/23 Procedure(s): US OB BPP w non-stress Accession Number(s): [id number] cc: Marco A Greene D.O.; Physician,Non-Staff [address] [place] [address] Patient Name: ANAND HERRERA MRN: [facility]:[id number] date: 2000 Sex: F Assigned Patient Location: [facility] Current Patient Location: [facility] Accession/Order Number: [id number] Exam Date: 03/13/2023 07:50 Report Date: 03/13/2023 [...] Jess Nicole M.D. Signed By:03/13/2349 DD/ TD/TT: Business English Instructor: us Marco A Jc DO [facility] Final Result documented in this encounter Visit Diagnoses Not on filedocumented in this encounter Care Teams Kitchen Supervisor Relationship Specialty Start Date End Date Link, MD Baljit PCP - General Family Medicine 10/20/22 documented as of this encounter
--- OUTSIDE RECORDS SUMMARY | 2025-01-12 16:55 | XMS_ITS | Encounter Summary ---
Author Organization [facility] Address [address] [facility] [place] [address] Care Team Providers Care Emulsification Operator Name Role Phone Link, Baljit PRETTY Primary Care Provider [phone] Encounter Details Date Type Department Care Team (Late Contact Info) Description 03/17/2024 Orders Only LON BARRERA [address] [facility] [facility] [place] [address] Lisa Gleason LPN [address] [place] [address] Social History Tobacco Use Types Packs/Day Years [...] AM EST Office Visit NOMEmelia BARRERA [address] [facility] [facility] [facility] [place] [address] Marco A Greene DO [address] [place] [address] documented as of this encounter Procedures Procedure [...] on filedocumented in this encounter Care Teams Emulsification Operator Relationship Specialty Start Date End Date Link, MD Baljti PCP - General Family Medicine 10/20/22 documented as of this encounter
--- OUTSIDE RECORDS SUMMARY | 2025-01-12 16:55 | XMS_ITS | Clinical Summary ---
Author Organization [facility] Address [address] [place] [address] Care Team Providers Care Milk House Worker Name Role Phone Link, Baljit Gilbert Primary Care Provider [phone] Allergies No known active allergies Medications predniSONE [...] HPV Vaccine Completed 06/21/2012, 01/25, 12/08/2011 Insurance [place] [employer] Care Teams Milk House Worker Relationship Specialty Start Date End Date Link, Baljit Gilbert DO [address] [place] [address] PCP - General Family Medicine 11/07/21
--- OUTSIDE RECORDS SUMMARY | 2025-01-12 16:55 | XMS_ITS | Encounter Summary ---
Author Organization [facility] Address [address] [place] [address] Care Team Providers Care Strapper Name Role Phone Link, Baljit Gilbert DO Primary Care Provider [phone] Source Comments In the event this information is protected by the Federal Confidentiality of Alcohol and Drug AbusePatient Records regulations: The Federal rules restrict any use of the information to criminally investigate or prosecute any alcohol or drug abuse patient.[facility] Encounter Details Date Type Department Care Team (Late st Contact Info) Description 11/09/2021 Get Medical Advice Ophthalmology [address] [place] [address] Elmer Sheets, OD [address] [place] [address] Eyes Social History Tobacco Use [...] on filedocumented in this encounter Care Teams Strapper Relationship Specialty Start Date End Date Link, Baljit Gilbert DO [address] [place] [address] PCP - General Family Medicine 11/07/21 documented as of this encounter
--- OUTSIDE RECORDS SUMMARY | 2025-01-12 16:55 | XMS_ITS | Encounter Summary ---
Author Organization [facility] Address [address] [place] [place] [address] Care Team Providers Care Stock Clipper Name Role Phone Link, Baljit PRETTY Primary Care Provider [phone] Encounter Details Date Type Department Care Team (Late Contact Info) Description 09/29/2024 Abstract LON BARRERA [address] [place] [address] Marco A Greene DO [facility] [address], [place] [address] Social History Tobacco Use Types Packs/Day Years [...] Office Visit LON BARRERA [address] [place] [address] Marco A Greene DO [address], [facility]11 documented as of this encounter Visit Diagnoses Not on filedocumented in this encounter Care Teams Stock Clipper Relationship Specialty Start Date End Date Baljit Watts MD PCP - General Family Medicine 10/20/22 documented as of this encounter
--- OUTSIDE RECORDS SUMMARY | 2025-01-12 16:55 | XMS_ITS | Encounter Summary ---
Author Organization [facility] Address [address] [place] [address] Care Team Providers Care Nurse Transitional Name Role Phone Link, Baljit Gilbert DO Primary Care Provider [phone] Source Comments In the event this information is protected by the Federal Confidentiality of Alcohol and Drug AbusePatient Records regulations: The Federal rules restrict any use of the information to criminally investigate or prosecute any alcohol or drug abuse patient.[facility] Encounter Details Date Type Department Care Team (Late st Contact Info) Description 11/14/2021 Get Medical Advice Ophthalmology [address] [place] [address] Elmer Sheets, OD [address] [facility] [place] [address] Appointment Social History Tobacco Use [...] on filedocumented in this encounter Care Teams Nurse Transitional Relationship Specialty Start Date End Date Link, Baljit Gilbert DO [address] [place] [address] PCP - General Family Medicine 11/07/21 documented as of this encounter
--- OUTSIDE RECORDS SUMMARY | 2025-01-12 16:55 | XMS_ITS | Encounter Summary ---
Author Organization [facility] Address [address] [facility] [place] [address] Care Team Providers Care Training Technician Name Role Phone Link, Baljit PRETTY Primary Care Provider [phone] Encounter Details Date Type Department Care Team (Late Contact Info) Description 03/16/2023 Abstract NOMEmelia BARRERA [facility] [place] [address] [place] [address] Lisa Gleason LPN [address] [place] [address] Social History Tobacco Use Types Packs/Day Years [...] 11:00 AM EST Office Visit LON BARRERA [facility] [place] [address] Jc, Marco A, [address] [place] [address] documented as of this encounter Visit Diagnoses Not on filedocumented in this encounter Care Teams Training Technician Relationship Specialty Start Date End Date Baljit Watts MD PCP - General Family Medicine 10/20/22 documented as of this encounter
--- OUTSIDE RECORDS SUMMARY | 2025-01-12 16:55 | XMS_ITS | Encounter Summary ---
Author Organization [facility] Address [address] [place] [address] Care Team Providers Care Adding Machine Mechanic Name Role Phone Link, Baljit Gilbert DO Primary Care Provider [phone] Source Comments In the event this information is protected by the Federal Confidentiality of Alcohol and Drug AbusePatient Records regulations: The Federal rules restrict any use of the information to criminally investigate or prosecute any alcohol or drug abuse patient.[facility] Encounter Details Date Type Department Care Team (Late st Contact Info) Description 11/15/2021 Get Medical Advice Ophthalmology [address] [facility] [place] [address] Elmer Sheets, OD [address] [facility] [place] [address] Eyes Social History Tobacco Use [...] on filedocumented in this encounter Care Teams Adding Machine Mechanic Relationship Specialty Start Date End Date Link, Baljit Gilbert DO [address] [place] [address] PCP - General Family Medicine 11/07/21 documented as of this encounter
--- OUTSIDE RECORDS SUMMARY | 2025-01-12 16:55 | XMS_ITS | Encounter Summary ---
Author Organization [facility] Address [address] [place] [address] Care Team Providers Care Industrial Cleaning Technician Name Role Phone Link, Baljit PRETTY Primary Care Provider [phone] Encounter Details Date Type Department Care Team (Late st Contact Info) Description 03/10/2023 Clinisync Result Encounter NOMS External Department Unsolicited Marco A Greene DO [address] [place], [facility]11 Social History Tobacco Use Types [...] Visit NOMEmelia [place]offe[place] OBGYN [address] [place] [address] Marco A Greene DO [address], [facility]11 documented as of this encounter Procedures Procedure [...] Marco A Greene DO CL[facility] Final [facility] US OB BPP WO NON-STRESS (03/10/2023 10:23 AM EST) Anatomical Region Laterality Modality Other 03/10/2023 10:2 3 AM EST Narrative 03/10/2023 10:23 [place] [address] Ultrasound Report Signed Patient: ANAND HERRERA MR#: [id number] : 2000 Acct:[id number] Age/Sex: 22 / F ADM Date: Loc: [facility] Attending Dr: Anita Graves M.D. Ordering Physician: Marco A Greene D.O. Date of Service: 03/10/23 Procedure(s): US OB BPP wo non-stress Accession Number(s): [id number] cc: Marco A Greene D.O.; Physician,Non-Staff Lane[place] The [address] [address] Patient Name: ANAND HERRERA MRN: [facility]:[id number] date: 2000 Sex: F Assigned Patient Location: [facility] Current Patient Location: [facility] Accession/Order Number: [id number] Exam Date: 03/10/2023 08:45 Report Date: 03/10/2023 [...] Signed By: 03/10/23 1026 DD/ 1023 TD/TT: Supervisor Hairspring Fabrication: Procedure Note Radiology, Radiologist, MD - 03/10/2023 [place] [address] Ultrasound Report Signed Patient: ANAND HERRERA EMR#: [id number] : 2000Acct:[id number] Age/Sex: 22 / FADM Date: Loc: [facility] [address]: Anita Graves M.D. Ordering Physician: Marco A Greene D.O. Date of Service: 03/10/23 Procedure(s): US OB BPP wo non-stress Accession Number(s): [id number] cc: Marco A Greene D.O.; Physician,Non-Staff Laney The [address] [address] Patient Name: ANAND HERRERA MRN: [facility]:[id number] date: 2000 Sex: F Assigned Patient Location: [facility] Current Patient Location: [facility] Accession/Order Number: [id number] Exam Date: 03/10/2023 08:45 Report Date: 03/10/2023 [...] M.D. Signed By:03/10/23 1026 DD/ 1023 TD/TT: Supervisor [employer]spring [employer]ation: us Marco A Greene DO [facility] Final Result documented in this encounter Visit Diagnoses Not on filedocumented in this encounter Care Teams Industrial Cleaning Technician Relationship Specialty Start Date End Date Baljit Watts MD PCP - General Family Medicine 10/20/22 documented as of this encounter
--- OUTSIDE RECORDS SUMMARY | 2025-01-12 16:55 | XMS_ITS | Encounter Summary ---
Author Organization [facility] Address [address] [place] [address] Care Team Providers Care Banquet Supervisor Name Role Phone Link, Baljit Gilbert DO Primary Care Provider [phone] Source Comments In the event this information is protected by the Federal Confidentiality of Alcohol and Drug AbusePatient Records regulations: The Federal rules restrict any use of the information to criminally investigate or prosecute any alcohol or drug abuse patient.[facility] Encounter Details Date Type Department Care Team (Late st Contact Info) Description 11/25/2021 Get Medical Advice Ophthalmology [address] [facility] [place] [address] Elmer Sheets, OD [address] [facility] [place] [address] Eye drops Social History Tobacco [...] on filedocumented in this encounter Care Teams Banquet Supervisor Relationship Specialty Start Date End Date Link, Baljit Gilbert DO [address] [facility] [place] [address] PCP - General Family Medicine 11/07/21 documented as of this encounter
--- OUTSIDE RECORDS SUMMARY | 2025-01-12 16:55 | XMS_ITS | Encounter Summary ---
Author Organization [facility] Address [address] [place] [address] Care Team Providers Care Heavy Forging Machine Operator Name Role Phone Link, Baljit PRETTY Primary Care Provider [phone] Encounter Details Date Type Department Care Team (Late st Contact Info) Description 01/12/2023 Clinisync Result Encounter NOMS External Department Unsolicited Marco A Greene DO [address], [facility]11 Social History Tobacco Use Types [...] Visit NOMEmelia Coffey OBGYN [address] [place] [address] Marco A Greene DO [address] [place], [place] [id number] (work) documented as of this encounter Procedures Procedure Name Priority Date/Time Associated Diagnosis Comments US OB CERVICAL LENGTH 01/12/2023 4:57 PM EDT documented in this encounter Results * US OB CERVICAL LENGTH (01/12/2023 4:57 PM EDT) Anatomical Region Laterality Modality Other 01/12/2023 4:57 PM EDT Narrative 01/12/2023 4:57 PM EDT The [address] [address] Ultrasound Report Signed Patient: ANAND HERRERA MR#: [id number] : 2000 Acct:[id number] Age/Sex: 22 / F ADM Date: 01/12/23 Loc: US Attending Dr: Marco A Greene D.O. Ordering Physician: Marco A Greene D.O. Date of Service: 01/12/23 Procedure(s): US OB cervical length Accession Number(s): [id number] cc: Marco A Greene D.O. The [address] [address] Patient Name: ANAND HERRERA MRN: [facility]:[id number] date: 2000 Sex: F Assigned Patient Location: US Current Patient Location: US Accession/Order Number: [id number] Exam Date: 01/12/2023 08:35 Report Date: 01/12/2023 [...] Signed By: 01/12/23 1700 DD/ 56 TD/TT: Heating And Cooling Systems Engineer: Procedure Note Radiology, Radiologist, - 01/16/2023 [place] [address] Ultrasound Report Signed Patient: ANAND HERRERA EMR#: [id number] : 2000Acct:[id number] Age/Sex: 22 / FADM Date: 01/12/23 Loc: US Attending Dr: Marco A Greene D.O. Ordering Physician: Marco A Greene D.O. Date of Service: 01/12/23 Procedure(s): US OB cervical length Accession Number(s): [id number] cc: Marco A Greene D.O. The [place] [address] Patient Name: ANAND HERRERA MRN: [id number] date: 2000 Sex: F Assigned Patient Location: US Current Patient Location: US Accession/Order Number: [id number] Exam Date: 01/12/2023 08:35 Report Date: 01/12/2023 [...] Nicole M.D. Signed By:01/12/231699 DD/ 56 TD/TT: Heating And Cooling Systems Engineer: us Marco A Greene DO [facility] Final Result documented in this encounter Visit Diagnoses Not on filedocumented in this encounter Care Teams Heavy Forging Machine Operator Relationship Specialty Start Date End Date Baljit Watts MD PCP - General Family Medicine 10/20/22 documented as of this encounter
--- OUTSIDE RECORDS SUMMARY | 2025-01-12 16:55 | XMS_ITS | Encounter Summary ---
Author Organization [facility] Address [address] [facility] [place] [address] Care Team Providers Care Cerner Analyst Name Role Phone Link, Baljit PRETTY Primary Care Provider [phone] Encounter Details Date Type Department Care Team (Late Contact Info) Description 11/14/2022 Abstract NOMEmelia BARRERA [address] [place] [address] [place] [address] Simona Currie PA [address] [place] [address] Dr [place], [place] [address] Social History Tobacco Use Types Packs/Day Years [...] 11:00 AM EST Office Visit NOMEmelia BARRERA [address] [place] [address] [place] [address] Marco A Greene DO [address] [place] [address] [place] [address] documented as of this encounter Visit Diagnoses Not on filedocumented in this encounter Care Teams Cerner Analyst Relationship Specialty Start Date End Date Baljit Watts MD PCP - General Family Medicine 10/20/22 documented as of this encounter
--- OUTSIDE RECORDS SUMMARY | 2025-01-12 16:55 | XMS_ITS | Patient Health Record ---
Author Organization [employer] [facility] [employer] Address [address] [place] [address] Care Team Providers Care Psychology Fellow Name Role Phone Tanika Rosales Primary Care Provider [phone] Reason For Referral No Information Encounters Encounter Location Date Provider Diagnosis [facility] [address] [place] [address] 09/28/2024 Tanika Rosales Dental caries on pit [...] Date Dental Fink [employer] [address] [place] [address] [id number] ANAND PERALES Self - patient is the insured Dental Wrap [facility] Fink [address] [place] [address] [phone] [id number] ANAND PERALES Self - patient is the insured 5
--- OUTSIDE RECORDS SUMMARY | 2025-01-12 16:55 | XMS_ITS | Encounter Summary ---
Author Organization [facility] Address [address] [place] [address] Care Team Providers Care Outside Dealer Sales Representative Name Role Phone Link, Baljit PRETTY Primary Care Provider [phone] Encounter Details Date Type Department Care Team (Late st Contact Info) Description 01/10/2025 Telephone NOMS Erlinda BARRERA [address] [place] [phone] Justine Young MA [address] [place] [address] Social History Tobacco Use Types Packs/Day Years [...] Office Visit [facility]S Erlinda OBGYN [address] [facility] [place] [address] Marco A Greene DO [address] [place] [address] documented as of this encounter Visit Diagnoses Not on filedocumented in this encounter Care Teams Outside Dealer Sales Representative Relationship Specialty Start Date End Date Link, MD Baljit PCP - General Family Medicine 10/20/22 documented as of this encounter
--- OUTSIDE RECORDS SUMMARY | 2025-01-12 16:55 | XMS_ITS | Clinical Summary ---
Author Organization [facility] Address [address] [place] [address] Care Team Providers Care Parachute Supervisor Name Role Phone Link, Baljit PRETTY Primary Care Provider [phone] Allergies No known active allergies Medications Vyvanse [...] 01/11/2025 2:30 PM EDT Routine LON BARRERA [address] [place] [address] [place] [address] Silas Greene DO Third trimester ([facility]); 36 weeks gestation of ([facility]); Amniotic band syndrome; H/O pre-eclampsia in prior , currently ([facility]) 01/11/2025 Bamboo flowsheet NOMEmelia BARRERA [address] [place] [address] Silas Greene DO 01/10/2025 [place] [address] Justine Young MA 01/04/2025 1:50 PM EDT Routine NOM[facility] [place] [address] Simona Gunn PA Third trimester ([facility]); 35 weeks gestation of ([facility]) 01/04/2025 Bamboo flowsheet NOM[facility] [place] [address] Simona Gunn PA 12/29/2024 Clinisync Result Encounter NOMS External Department Unsolicited Silas Greene 12/22/2024 2:00 PM [place] [address] Simona Gunn PA Third trimester ([facility]); 33 weeks gestation of ([facility]); Amniotic band syndrome; History of miscarriage 12/22/2024 Bamboo flowsheet [facility] [place] [address] Simona Gunn PA 12/12/2024 11:00 AM EDT Ancillary [place] [address] Third trimester ([facility]); 31 weeks gestation of ([facility]); Screening, , for anatomic survey ([facility]) 12/08/2024 11:30 AM ED[place] [address] Silas Greene Third trimester ([facility]); 31 weeks gestation of ([facility]); Screening, , for anatomic survey ([facility]) 12/08/2024 11:00 AM EDT Ancillary Procedure [facility] Erlinda BARRERA [address] [place] [address] [place] [address] Size of fetus inconsistent with dates in second trimester ([facility]) 12/08/2024 Telephone NOMS Erlinda BARRERA [address] [place] [address] [place] [address] Rose Costello, MANAGER SPECIAL EVENTS 12/06/2024 Patient Outreach [facility] [place] [address] [address] [address] Simona Woods LPN 11/30/2024 Abstract [facility] [place] [address] [place] [address] Simona Woods MANAGER SPECIAL EVENTS 11/29/2024 Telephone [facility] Erlinda BARRERA [address] [place] [address] [place] [address] Silas Greene DO 11/22/2024 11:40 AM EDT Routine N[facility] Erlinda BARRERA [address] [place] [address] [place] [address] Silas Greene DO Size of fetus inconsistent with dates in second trimester ([facility]) (Primary Dx); Second trimester ([facility]); 28 weeks gestation of ([facility]); Mastitis 11/22/2024 Bamboo flowsheet [facility] Erlinda BARRERA [address] [place] [address] [place] [address] Silas Greene DO 11/10/2024 Telephone [facility] Erlinda BARRERA [address] [place] [address] [place] [address] Piedad Dewitt, SHARON 10/31/2024 Clinisync Result Encounter NOMS External Department Unsolicited Simona Gunn PA 10/25/2024 2:30 PM EDT Routine NOM[facility] Erlinda BARRERA [address] [facility] [place] [address] Simona Gunn PA Second trimester ([facility]); 24 weeks gestation of ([facility]); HSV infection; H/O pre-eclampsia in prior , currently ([facility]); Diabetes mellitus screening; Encounter for anatomic survey ([facility]) 10/25/2024 Bamboo flowsheet NOM[facility] Erlinda BARRERA [address] [place] [address] [place] [address] Simona Gunn PA from Last 3 [...] 11:00 AM EST Office Visit NOMEmelia BARRERA [address] [place] [address] [place] [address] Silas Greene, [address] [facility] [place] [address] Procedures Procedure Name Priority Date/Time Associated Diagnosis Comments POCT URINALYSIS DIPSTICK Routine 01/11/2025 2:47 PM EDT Third trimester ([facility]) 36 weeks gestation of ([facility]) POCT URINALYSIS DIPSTICK Routine 01/04/2025 1:32 PM EDT Third trimester ([facility]) US OB BPP W NON-STRESS 12/29/2024 7:37 PM EDT US OB 14+ WEEKS ANATOMY SCAN Routine 12/12/2024 11:50 AM EDT Third trimester ([facility]) 31 weeks gestation of ([facility]) Screening, , for anatomic survey ([facility]) US OB FOLLOW UP TRANSABDOMINAL APPROACH Routine 12/08/2024 11:16 AM EDT Size of fetus inconsistent with dates in second trimester ([facility]) POCT URINALYSIS DIPSTICK Routine 11/22/2024 12:01 PM EDT Second trimester ([facility]) 28 weeks gestation of ([facility]) ALL CBC WITH AUTO DIFF Routine 10:36 AM EDT GLUCOSE 1 HOUR Routine 10/31/2024 10:36 AM EDT US OB INCOMPLETE ANATOMY 10/31/2024 9:54 AM EDT POCT URINALYSIS DIPSTICK Routine 10/25/2024 2:39 PM EDT Second trimester ([facility]) from Last 3 Months Results [...] PM EDT Narrative 12/29/2024 7:40 [place] [address] Ultrasound Report Signed Patient: ANAND PERALES MR#: [id number] : 2000 Acct:[id number] Age/Sex: 24 / F ADM Date: 12/29/24 Loc: US Attending Dr: Silas Greene D.O. Ordering Physician: Silas Greene D.O. Date of Service: 12/29/24 Procedure(s): US OB BPP w non-stress Accession Number(s): [id number] cc: Silas Greene D.O.; Physician,Non-Staff M.DIrvin [address] [address] Patient Name: ANAND PERALES MRN: [id number] date: 2000 Sex: F Assigned Patient Location: [facility] Current Patient Location: Accession/Order Number: [id number] Exam Date: 12/29/2024 17:15 Report Date: 12/29/2024 [...] Bo M.D. 12/29/2024 7:37 PM Dictation Location: [employer] Electronically authenticated by: [id number] Y Date: 12/29/2024 19:37 Dictated By: Charles Bo D.O. Signed By: 12/29/241939 DD/ 36 TD/TT: Ski Patrol: Procedure Note Radiology, Radiologist, MD - 12/29/2024 [place] [address] Ultrasound Report Signed Patient: ANAND PERALES EMR#: [id number] : 2000Acct:[id number] Age/Sex: 24 / FADM Date: 12/29/24 Loc: US Attending Dr: Silas Greene D.O. Ordering Physician: Silas Greene D.O. Date of Service: 12/29/24 Procedure(s): US OB BPP w non-stress Accession Number(s): [id number] cc: Silas Greene D.O.; Physician,Non-Staff [place] The [address] [address] Patient Name: ANAND PERALES MRN: [id number] date: 2000 Sex: F Assigned Patient Location: [facility] Current Patient Location: Accession/Order Number: [id number] Exam Date: 12/29/2024 17:15 Report Date: 12/29/2024 [...] Bo M.D. 12/29/2024 7:37 PM Dictation Location: [employer] Electronically authenticated by: [id number] Y Date: 9:37 Dictated By: Charles Bo D.O. Signed By:12/29/241939 DD/ 36 TD/TT: Ski Patrol: us Silas Greene DO [facility]AG[facility] Final [...] ZAC MARTINEZ II, MD, PHD 08:04:22 AM [facility] [...] EDT us Simona TUTTLE Final Result [facility] * US OB INCOMPLETE ANATOMY (10/31/2024 9:54 AM EDT) Anatomical Region Laterality Modality Other 10/31/2024 9:54 AM EDT Narrative 10/31/2024 9:57 [place] [address] Ultrasound Report Signed Patient: ANAND PERALES MR#: [id number] : 2000 Acct:[id number] Age/Sex: 24 / F ADM Date: 10/31/24 Loc: US Attending Dr: Simona Gunn Ordering Physician: Simona Gunn Date of Service: 10/31/24 Procedure(s): US OB incomplete anatomy Accession Number(s): [id number] cc: Simona Gunn; Physician,Non-Staff [address] [id number] Patient Name: ANAND PERALES MRN: [facility]:[id number] date: 2000 Sex: F Assigned Patient Location: US Current Patient Location: US Accession/Order Number: [id number] Exam Date: 10/31/2024 09:53 Report Date: 10/31/2024 [...] normal. The spine was surveyed by the button reclaimer and no abnormalities were reported. US/US OB incomplete anatomy IMPRESSION: UNREMARKABLE SPINE ASSESSMENT. Impression dictated by: Hillary Barth M.D. 10/31/2024 9:54 AM Dictation Location: [place] [address] Electronically authenticated by: [id number] Y Date: 10/31/2024 09:54 Dictated By: Hillary Barth M.D. Signed By: 10/31/24 0957 DD/ 3 TD/TT: Ski Patrol: Procedure Note Radiology, Radiologist, - 10/31/2024 [place] [address] Ultrasound Report Signed Patient: ANAND PERALES EMR#: [id number] : 2000Acct:[id number] Age/Sex: FADM Date: 10/31/24 Loc: US Attending Dr: Simona Gunn Ordering Physician: Simona Gunn Date of Service: 10/31/24 Procedure(s): US OB incomplete anatomy Accession Number(s): [id number] cc: Simona Gunn; Physician,Non-Staff Lane[address] The [place] [id number] Patient Name: ANAND PERALES MRN: [id number] date: 2000 Sex: F Assigned Patient Location: US Current Patient Location: US Accession/Order Number: [id number] Exam Date: 10/31/2024 09:53 Report Date: 10/31/2024 [...] subjectively normal. Thespine was surveyed by the button reclaimer and no abnormalities were reported. US/US OB incomplete anatomy IMPRESSION: UNREMARKABLE SPINE ASSESSMENT. Impression dictated by: Hillary Barth M.D. 10/31/2024 9:54 AM Dictation Location: [place] [address] Electronically authenticated by: [id number] Y Date: 9:54 Dictated By: Hillary Barth M.D. Signed By:10/31/24 0957 DD/ 3 TD/TT: Ski Patrol: us Simona ROSS [facility] Final Result from Last 3 Months Insurance [place] [employer] Care Teams Parachute Supervisor Relationship Specialty Start Date End Date Mac, MD Baljit PCP - General Family Medicine 10/20/22
--- OUTSIDE RECORDS SUMMARY | 2025-01-12 16:55 | XMS_ITS | Encounter Summary ---
Author Organization [facility] Address [address] [place] [address] Care Team Providers Care Dry Chain Operator Name Role Phone Link, Baljit PRETTY Primary Care Provider [phone] Encounter Details Date Type Department Care Team (Late Contact Info) Description 11/30/2024 Abstract [facility] [address] [place] [id number] Simona Woods, SHARON [address] [place] [address] Social History Tobacco Use Types Packs/Day Years [...] EST Office Visit [facility] [address] [place] [phone] Marco A Greene DO [address] [place], [place] [id number] documented as of this encounter Visit Diagnoses Not on filedocumented in this encounter Care Teams Dry Chain Operator Relationship Specialty Start Date End Date Baljit Watts MD PCP - General Family Medicine 10/20/22 documented as of this encounter
--- OUTSIDE RECORDS SUMMARY | 2025-01-12 16:55 | XMS_ITS | Encounter Summary ---
Author Organization [facility] Address [address] [place] [address] Care Team Providers Care Aerographer Name Role Phone Link, Baljit Gilbert DO Primary Care Provider [phone] Source Comments In the event this information is protected by the Federal Confidentiality of Alcohol and Drug AbusePatient Records regulations: The Federal rules restrict any use of the information to criminally investigate or prosecute any alcohol or drug abuse patient.[facility] Encounter Details Date Type Department Care Team (Late st Contact Info) Description 11/20/2021 Get Medical Advice Ophthalmology [address] [place] [address] Elmer Sheets, OD [address] [facility] [place] [address] Eye drops Social History Tobacco [...] on filedocumented in this encounter Care Teams Aerographer Relationship Specialty Start Date End Date Link, Baljit Gilbert DO [address] [facility] [place] [phone] PCP - General Family Medicine 11/07/21 documented as of this encounter
--- OUTSIDE RECORDS SUMMARY | 2025-01-12 16:55 | XMS_ITS | Encounter Summary ---
Author Organization [facility] Address [address] [place] [address] Care Team Providers Care Director Internal Control Name Role Phone Link, Baljit PRETTY Primary Care Provider [phone] Encounter Details Date Type Department Care Team (Late st Contact Info) Description 02/09/2023 Clinisync Result Encounter [facility] Unsolicited Marco A Greene DO [address], [id number] Social History Tobacco Use Types Packs/Day Years [...] Visit [facility] [address] [place] [address] Marco A Greene DO [address] [place], [place] [id number] documented as of this encounter Procedures Procedure Name Priority Date/Time Associated Diagnosis Comments US OB GROWTH 02/09/2023 4:38 PM EDT documented in this encounter Results * US OB GROWTH (02/09/2023 4:38 PM EDT) Anatomical Region Laterality Modality Other 02/09/2023 4:38 PM EDT Narrative 02/09/2023 4:38 PM EDT [address] [address] Ultrasound Report Signed Patient: ANAND HERRERA MR#: [id number] : 2000 Acct:[id number] Age/Sex: 22 / F ADM Date: 02/09/23 Loc: US Attending Dr: Marco A Greene D.O. Ordering Physician: Marco A Greene D.O. Date of Service: 02/09/23 Procedure(s): US OB growth Accession Number(s): [id number] cc: Marco A Greene D.O. [address] [id number] Patient Name: ANAND HERRERA MRN: [id number] date: 2000 Sex: F Assigned Patient Location: Current Patient Location: Accession/Order Number: [id number] Exam Date: 02/09/2023 13:00 Report Date: 02/09/2023 [...] Signed By: 02/09/23 1640 DD/ 1638 TD/TT: Body Shop Supervisor: Procedure Note Radiology, Radiologist, - 02/09/2023 [place] [address] Ultrasound Report Signed Patient: ANAND HERRERA EMR#: [id number] : 2000Acct:[id number] Age/Sex: 22 / FADM Date: 02/09/23 Loc: US Attending Dr: Marco A Greene D.O. Ordering Physician: Marco A Greene D.O. Date of Service: 02/09/23 Procedure(s): US OB growth Accession Number(s): [id number] cc: Marco A Greene D.O. [address] [place] [id number] Patient Name: ANAND HERRERA MRN: [id number] date: 2000 Sex: F Assigned Patient Location: US Current Patient Location: US Accession/Order Number: [id number] Exam Date: 02/09/2023 13:00 Report Date: 02/09/2023 [...] M.D. Signed By:02/09/23 1640 DD/ 1638 TD/TT: Body Shop Supervisor: us Marco A Jc DO [facility] Final Result documented in this encounter Visit Diagnoses Not on filedocumented in this encounter Care Teams Director Internal Control Relationship Specialty Start Date End Date Baljit Watts MD PCP - General Family Medicine 10/20/22 documented as of this encounter
--- OUTSIDE RECORDS SUMMARY | 2025-01-12 16:55 | XMS_ITS | Encounter Summary ---
Author Organization [facility] Address [address] [place] [address] Care Team Providers Care Hplc Chemist Name Role Phone Link, Baljit PRETTY Primary Care Provider [phone] Encounter Details Date Type Department Care Team (Late st Contact Info) Description 11/10/2022 Clinisync Result Encounter [facility] External Department Unsolicited Marco A Greene DO [address], [id number] Social History Tobacco Use Types Packs/Day [...] Visit [facility] [address] [place] [phone] Marco A Greene DO [address] [place], [place] [id number] documented as of this encounter Procedures Procedure [...] EFW (oz) 10 oz EFW by: Hadlock ([id number]) Extended Globe Changer 7.6 mm CM 4.4 mm 35% Nicolaides [...] Normal LVOT view: Normal 3-vessel view: Normal 1-ttbtoj-bnctrkf view: Normal Heart / Thorax Situs: situs [...] EFW (oz) 10 oz EFW by: Hadlock ([id number]) Extended Globe Changer 7.6 mm CM 4.4 mm 35% Nicolaides [...] Normal LVOT view: Normal 3-vessel view: Normal 8-sqctfs-uvokkbv view: Normal Heart / Thorax Situs: situs [...] on filedocumented in this encounter Care Teams Hplc Chemist Relationship Specialty Start Date End Date Link, MD Baljit PCP - General Family Medicine 10/20/22 documented as of this encounter
--- NOTE | 2025-01-12 16:57 | US_ITS ---
[facility] [place] [address] Patient Name: ANAND PERALES MRN: [id number] date: 2000 Sex: F Assigned Patient Location: [facility] Current Patient Location: Accession/Order Number: [id number] Exam Date: 01/12/2025 17:07 Report Date: 01/13/2025 08:14 At the request of: SILAS VELIZ DO Procedure: US OB BPP w non-stress BIOPHYSICAL PROFILE: CLINICAL INFORMATION: HX AMNIOTIC BAND SYNDROME COMPARISON: 12/29/2024 There is a single live intrauterine gestation in cephalic presentation. The reported gestational age is 36 weeks 1 day. The heart rate measures 125 beats per minute. FINDINGS: TONE: 1 or more episodes of activity extension and flexion of extremity or opening and closing of the hand [Y] 2/2 GROSS BODY MOVEMENTS: 3 or more discrete body or limb movements [Y] 2/2 BREATHING MOVEMENTS: 1 or more episodes of breathing lasting at least 30 seconds [Y] 2/2 EDITH: A single deepest vertical pocket of amniotic fluid greater than 2 cm [Y] 2/2 EDITH: 17.2 cm Total score: 8/8 US/US OB BPP w non-stress IMPRESSION: NORMAL BIOPHYSICAL PROFILE Impression dictated by: Hillary Barth M.D. 01/13/2025 8:14 AM Dictation Location: [place] [address] Electronically authenticated by: [id number] Date: 01/13/2025 08:14
--- OUTSIDE RECORDS SUMMARY | 2025-01-12 16:57 | XMS_ITS | CCD ---
Author Organization [facility] Care Team Providers Care Legal Secretary Receptionist Name Role Phone Unavailable Primary Care Provider UnavailBaljit Luna Primary Care Physician [phone] Baljit Watts MD Primary Care Provider JC ., DR ROSEN Admitting Unavailable JC ., DR ROSEN Attending Unavailable JC ., DR ROSEN Consulting Unavailable ZieberBillie Consulting Unavailable REQUEST, DR MCGUIRE LISTED Consulting Unavaila ble JC ., DR ROSEN Consulting Unavailable JC ., DR ROSEN Admitting Unavailable MISC, DR WOOD Primary Care Unavailable JC ., DR ROSEN Attending Unavailable HOMERKELL Attending Unavailable Jc, Dr. Marco A Zavaleta Referring Unavail able UNKNOWN, PCP Primary Care Unavailable UNKNOWN, PCP Primary Care Unavailable Jc, Dr. Marco A Zavaleta Referring Unavail able Dr. Jess Feldman Attending Unav ailable Baljit Watts MD Primary Care Provider Kathy Mccall Primary Care Physician [phone] Amos Espinoza Attending Unavailable Baljit Watts MD [...] day(s), # 20 tab(s), Refills(s) 0, Pharmacy: [facility]/pharmacy #[id number], 164, cm, 10/14/22 12:30:00 EDT, Height/Length Dosing, 66, kg, 10/14/22 12:30:00 EDT, Weight Dosing Start Date: 10/14/22 Stop Date: 10/24/22 Status: Ordered Start: 10-31-2021 take 1 capsule by [facility] every twelve hours amoxicillin 500 mg Cap 500 mg = 1 cap(s), Oral, q12hr, # 20 cap(s), Refills(s) 0, Pharmacy: [facility]/pharmacy #[id number], 165, cm, 10/31/21 [...] tablet 3 04/29/2020 Active Start: 04-26-2020 NIFEdipine (UT OCARDIA XL) extended release tablet 30 mg [...] Date: 01/31/23 Status: Ordered polyethylene glycol 3350 46111 mg powder for oral solution (1 source) [...] mouth daily 30 tablet 0 04/28/2020 Active aiz35-jlri-inabo acid (PreNata) 29 mg iron- 1 mg tablet,chewable (1 source) knr84-oggs-ljfcf acid (PreNata) 29 mg iron- 1 mg [...] for 10 day(s), 20 tab(s), Refill(s) 0, [facility]/pharmacy #[id number], 165, cm, 10/31/21 [...] day(s), # 15 tab(s), Refills(s) 0, Pharmacy: [facility]/pharmacy #[id number], 165, cm, 11/01/21 [...] UA Negative Negative - 4(70) +++ mg/dL [facility] Blood, UA Positive Negative - 50 Gabriel/mcL [facility] Clarity, UA Clear [facility] Color, UA Yellow [facility] Glucose, UA Negative Negative - 2000(110) ++++ mg/dL [facility] Interpretation and review of laboratory results Abnormal [facility] Ketones, UA Negative Negative - 160(16) ++++ mg/dL [facility] Leukocytes, UA Positive Negative - 500+++ Sebastián/mcL [facility] Nitrite, UA Negative Negative - Positive [facility] pH, UA 7 5 - 9 [facility] Protein, UA Negative Negative - 1999(20) ++++ mg/dL [facility] Spec Grav, UA 1.005 1 - 1.03 [facility] Urobilinogen, UA 1.0 0.2 - 12 mg/dL [facility] Urinalysis macro (dipstick) panel (U)on 01-04-2025 Bilirubin, UA Negative Negative - 4(70) +++ mg/dL [facility] Blood, UA Positive Negative - 50 Gabriel/mcL [facility] Comment on above: 1+ Clarity, UA Clear [facility] Color, UA Yellow [facility] Glucose, UA Negative Negative - 1999(110) ++++ mg/dL [facility] Interpretation and review of laboratory results Abnormal [facility] Ketones, UA Negative Negative - 160(16) ++++ mg/dL [facility] Leukocytes, UA Negative Negative - 500+++ Sebastián/mcL [facility] Nitrite, UA Negative Negative - Positive [facility] pH, UA 7.5 5 - 9 [facility] Protein, UA Negative Negative - 1999(20) ++++ mg/dL [facility] Spec Grav, UA 1.005 1 - 1.03 [facility] Urobilinogen, UA 0.2 0.2 - 12 mg/dL [facility] US OB BPP W NON-STRESS on 12-29-2024 [place] [address] Ultrasound Report Signed Patient: ANAND HERRERA MR#: [id number] : 2000 Acct:[id number] Age/Sex: 24 / F ADM Date: 12/29/24 Loc: US Attending Dr: Marco A Greene D.O. Ordering Physician: Marco A Greene D.O. Date of Service: 12/29/24 Procedure(s): US OB BPP w non-stress Accession Number(s): [id number] cc: Marco A Greene D.O.; Physician,Non-Staff M.DIrvin [facility] [place] [id number] Patient Name: ANAND HERRERA MRN: [facility]:[id number] date: 2000 Sex: F Assigned Patient Location: [facility] Current Patient Location: Accession/Order Number: [id number] Exam Date: 12/29/2024 17:15 Report Date: 12/29/2024 [...] Bo M.D. 12/29/2024 7:37 PM Dictation Location: [place] [address] Electronically authenticated by: [id number] Y Date: 12/29/2024 19:37 Dictated By: Charles Bo D.O. Signed By: 12/29/241939 DD/ 36 TD/TT: Lead Database Developer: [facility] Radiology, Radiologist, MD - 12/29/2024 [place] [address] Ultrasound Report Signed Patient: ANAND HERRERA MR#: [id number] : 2000 Acct:[id number] Age/Sex: 24 / F ADM Date: 12/29/24 Loc: US Attending Dr: Marco A Greene D.O. Ordering Physician: Marco A Greene D.O. Date of Service: 12/29/24 Procedure(s): US OB BPP w non-stress Accession Number(s): [id number] cc: Marco A Greene D.O.; Physician,Non-Staff [place] [facility] [address] [address] Patient Name: ANAND HERRERA MRN: [facility]:[id number] date: 2000 Sex: F Assigned Patient Location: [facility] Current Patient Location: Accession/Order Number: [id number] Exam Date: 12/29/2024 17:15 Report Date: 12/29/2024 [...] Bo M.D. 12/29/2024 7:37 PM Dictation Location: [place] Electronically authenticated by: [id number] Y Date: 12/29/2024 19:37 Dictated By: Charles Bo D.O. Signed By: 12/29/241939 DD/ 36 TD/TT: Lead Database Developer: [facility] Study observation (narrative) [facility] US OB BPP W NON-STRESS Ordered By: Radiologist Radiology on 12-29-2024 [facility] Work Phone: US OB 14+ WEEKS ANATOMY [...] II, MD, PHD at 15-Dec-2024 08:04:22 AM [facility] Normal Not Available Comment on above: Order [...] UA Negative Negative - 4(70) +++ mg/dL [facility] Blood, UA Negative Negative - 50 Gabriel/mcL [facility] Clarity, UA Clear [facility] Color, UA Yellow [facility] Glucose, UA Negative Negative - 1999(110) ++++ mg/dL [facility] Interpretation and review of laboratory results Normal [facility] Ketones, UA Negative Negative - 160(16) ++++ mg/dL [facility] Leukocytes, UA Negative Negative - 500+++ Sebastián/mcL [facility] Nitrite, UA Negative Negative - Positive [facility] pH, UA 6.5 5 - 9 [facility] Protein, UA Negative Negative - 1999(20) ++++ mg/dL [facility] Spec Grav, UA 1.005 1 - 1.03 [facility] Urobilinogen, UA 1.0 0.2 - 12 mg/dL [facility] US OB INCOMPLETE ANATOMYon 0 10-31-2024 [place] [address] Ultrasound Report Signed Patient: ANAND HERRERA MR#: [id number] : 2000 Acct:[id number] Age/Sex: 24 / F ADM Date: 10/31/24 Loc: US Attending Dr: Simona Currie Ordering Physician: Simona Currie Date of Service: 10/31/24 Procedure(s): US OB incomplete anatomy Accession Number(s): [id number] cc: Simona Currie; Physician,Non-Staff M.DIrvin [facility] [place] [id number] Patient Name: ANAND HERRERA MRN: [facility]:[id number] date: 2000 Sex: F Assigned Patient Location: US Current Patient Location: US Accession/Order Number: [id number] Exam Date: 10/31/2024 09:53 Report Date: 10/31/2024 [...] normal. The spine was surveyed by the senior drupal developer and no abnormalities were reported. US/US OB incomplete anatomy IMPRESSION: UNREMARKABLE SPINE ASSESSMENT. Impression dictated by: Hillary Barth M.D. 10/31/2024 9:54 AM Dictation Location: [place] [address] Electronically authenticated by: [id number] Y Date: 10/31/2024 09:54 Dictated By: Hillary Barth M.D. Signed By: 10/31/24 0957 DD/ 0954 TD/TT: Lead Database Developer: [facility] Radiology, Radiologist, - 10/31/2024 [place] [address] Ultrasound Report Signed Patient: ANAND HERRERA MR#: [id number] : 2000 Acct:[id number] Age/Sex: 24 / F ADM Date: 10/31/24 Loc: US Attending Dr: Simona Currie Ordering Physician: Simona Currie Date of Service: 10/31/24 Procedure(s): US OB incomplete anatomy Accession Number(s): [id number] cc: Simona Currie; Physician,Non-Staff [place] [facility] [place] [address] Patient Name: ANAND HERRERA MRN: [facility]:[id number] date: 2000 Sex: F Assigned Patient Location: US Current Patient Location: US Accession/Order Number: [id number] Exam Date: 10/31/2024 09:53 Report Date: 10/31/2024 [...] normal. The spine was surveyed by the senior drupal developer and no abnormalities were reported. US/US OB incomplete anatomy IMPRESSION: UNREMARKABLE SPINE ASSESSMENT. Impression dictated by: Hillary Barth M.D. 10/31/2024 9:54 AM Dictation Location: [place] [address] Electronically authenticated by: [id number] Y Date: 10/31/2024 09:54 Dictated By: Hillary Barth M.D. Signed By: 10/31/24 0957 DD/ 0954 TD/TT: Lead Database Developer: [facility] Radiology Study observation (narrative) [facility] US OB INCOMPLETE ANATOMYOrde red By: Radiologist Radiology on 10-31-2024 [facility] Work Phone: Urinalysis macro (dipstick) panel (U)on 10-25-2024 Bilirubin, UA Negative Negative - 4(70) +++ mg/dL [facility] Blood, UA Negative Negative - 50 Gabriel/mcL [facility] Clarity, UA Clear [facility] Color, UA Yellow [facility] Glucose, UA Negative Negative - 2000(110) ++++ mg/dL [facility] Interpretation and review of laboratory results Normal [facility] Ketones, UA Negative Negative - 160(16) ++++ mg/dL [facility] Leukocytes, UA Negative Negative - 500+++ Sebastián/mcL [facility] Nitrite, UA Negative Negative - Positive [facility] pH, UA 6.5 5 - 9 [facility] Protein, UA Negative Negative - 2000(20) ++++ mg/dL [facility] Spec Grav, UA 1.02 1 - 1.03 [facility] Urobilinogen, UA 0.2 0.2 - 12 mg/dL [facility] RECURRENT VAGINITIS (HTRX)on 09-29-2024 ATOPOBIUM VAGINAE 0 [facility] ATOPOBIUM VAGINAE Not detected [facility] BV[facility] 2,3 (BACTERIAL VAGINOSIS ASSOCIATED BACTERIA 2, 3); MOBILUNCUS SPP 0 [facility] BVAB 2,3 (BACTERIAL VAGINOSIS ASSOCIATED BACTERIA 2, 3); MOBILUNCUS SPP Not detected [facility] EBONIE ALBICANS, PARAPSILOSIS, TROPICALIS 27.336 Abnormal [facility] EBONIE ALBICANS, PARAPSILOSIS, TROPICALIS Detected Abnormal [facility] EBONIE GLABRATA 0 [facility] EBONIE GLABRATA Not detected [facility] EBONIE KRUSEI 0 [facility] EBONIE KRUSEI Not detected [facility] CHLAMYDIA TRACHOMATIS 0 [facility] CHLAMYDIA TRACHOMATIS Not detected N [facility] GARDNERELLA VAGINALIS 0 [facility] GARDNERELLA VAGINALIS Not detected N [facility] Interpretation and review of laboratory results Abnormal [facility] MEGASPHAERA (TYPES 1, 2) 0 [facility] MEGASPHAERA (TYPES 1, 2) Not detected [facility] MYCOPLASMA GENITALIUM 0 [facility] MYCOPLASMA GENITALIUM Not detected N [facility] NEISSERIA GONORRHOEAE 0 [facility] S [facility] NEISSERIA GONORRHOEAE Not detected N [facility] TRICHOMONAS VAGINALIS 0 [facility] TRICHOMONAS VAGINALIS Not detected [facility] Urinalysis macro (dipstick) panel (U)on 09-27-2024 Bilirubin, UA Negative Negative - 4(70) +++ mg/dL [facility] Blood, UA Negative Negative - 50 Gabriel/mcL [facility] Clarity, UA Clear [facility] Color, UA Yellow [facility] Glucose, UA Negative Negative - 1999(110) ++++ mg/dL [facility] Interpretation and review of laboratory results Normal [facility] Ketones, UA Negative Negative - 160(16) ++++ mg/dL [facility] Leukocytes, UA Negative Negative - 500+++ Sebastián/mcL [facility] Nitrite, UA Negative Negative - Positive [facility] pH, UA 7 5 - 9 [facility] Protein, UA Negative Negative - 1999(20) ++++ mg/dL [facility] Spec Grav, UA 1.015 1 - 1.03 [facility] Urobilinogen, UA 0.2 0.2 - 12 mg/dL [facility] US for pregnancyon Interpreted by: Doretha [...] EFW (oz) 4 oz EFW by: Hadlock (DLQ-SC-WK-FL) Head / Face / Neck Cephalic index 0.71 <1% Nicolaides Extremities / Bony Struc FL / BPD 0.54 14% Hadlock FL / HC 0.14 5% Hadlock FL / AC 0.16 1% Hadlock Other Structures FHR 150 bpm Anatomy Heart: Normal [place] and [place]. Stomach: Visible, with correct situs. Arms: Both Upper Extremities Seen. Legs: Both Lower Extremities Seen. The following structures appear normal: Cranium. Head size. Head shape. Brain. Right choroid plexus. Left choroid plexus. Midline falx. Thalami. Cerebellum. Face. Profile. Cardiac axis. 4-chamber view. 8-iqhrmm-zvsxskt view. Thorax. Diaphragm. Abdominal wall. Cord insertion. [...] Suspect Anomaly History ====== General History Smoking:No Zzuukq556 cm Height (ft)5 ft Height (in)6 in Previous Outcomes Gravida3 Para2 Children born living ?37w1 Pregnancies delivered at term (T)1 Pregnancies delivered (P)1 Living children (L)2 Children born living <37w1 Other:Previous Section x2 Maternal Assessment Oyvhip081 cm Height (ft)5 ft Height (in)6 in Fsaozs58 kg Weight (lb)155 lb Weight gain0 kg Weight gain (lb)0 lb BMI25.02 kg/m Physical Exam Initial weight (lb)155 lb ========= Prakash . Number of fetuses: 1 Dating ====== Prior assessment by:per outside ultrasound GA by prior czsvhvrars09 w + 6 d OTF by prior [...] 24% Hadlock HC / AC1.19 31% Hadlock BUL908 g14w 4d 35% Hadlock EFW (lb)0 lb EFW (oz)4 oz EFW by:Hadlock (XBM-VX-AN-FL) Head / Face / Neck Cephalic index0.71 <1% Nicolaides Extremities / Bony Struc FL / BPD0.54 14% Hadlock FL / HC0.14 5% Hadlock FL / AC0.16 1% Hadlock Other Structures LVN543 bpm Anatomy Heart: Normal [place] and [place]. Stomach: Visible, with correct situs. Arms: Both Upper Extremities Seen. Legs: Both Lower Extremities Seen. The following structures appear normal: Cranium. Head size. Head shape. Brain. Right choroid plexus. Left choroid plexus. Midline falx. Thalami. Cerebellum. Face. Profile. Cardiac axis. 4-chamber view. 4-wmxgye-azzguwc view. Thorax. Diaphragm. Abdominal wall. Cord insertion. Large bowel. Right kidney. Left kidney. Bladder. The following structures could not be adequately visualized: Spine. sex: female Maternal Structures Uterus / Cervix Uterus:Normal Cervix:Visualized Cervix details:Normal Cervical czazdo40.3 mm Ovaries / Tubes / Adnexa Rt ovary:Visualized Rt ovary details:Normal Rt ovary D125.0 mm Rt ovary D220.9 mm Rt ovary D320.0 mm Rt ovary Vol5.5 cm Lt ovary:Visualized Lt ovary details:Normal Lt ovary D129.4 mm Lt ovary D234.0 mm Lt ovary D315.1 mm Lt ovary Vol7.9 cm Method ====== Transabdominal ultrasound examination. View: Suboptimal view: limited by early gestational age [facility] Work Phone: Source Facility: [facility] Interpreted by: Doretha Marie Indication ======== [...] EFW (oz) 4 oz EFW by: Hadlock (EOD-CV-YJ-FL) Head / Face / Neck Cephalic index 0.71 <1% Nicolaides Extremities / Bony Struc FL / BPD 0.54 14% Hadlock FL / HC 0.14 5% Hadlock FL / AC 0.16 1% Hadlock Other Structures FHR 150 bpm Anatomy Heart: Normal [place] and [place]. Stomach: Visible, with correct situs. Arms: Both Upper Extremities Seen. Legs: Both Lower Extremities Seen. The following structures appear normal: Cranium. Head size. Head shape. Brain. Right choroid plexus. Left choroid plexus. Midline falx. Thalami. Cerebellum. Face. Profile. Cardiac axis. 4-chamber view. 6-eipsky-oeoplkp view. Thorax. Diaphragm. Abdominal wall. Cord insertion. [...] age Radiology, Radiologist, - 08/16/2024 Source Facility: [facility] Interpreted by: Doretha Marie Indication ======== [...] EFW (oz) 4 oz EFW by: Hadlock (WYG-MV-BV-FL) Head / Face / Neck Cephalic index 0.71 <1% Nicolaides Extremities / Bony Struc FL / BPD 0.54 14% Hadlock FL / HC 0.14 5% Hadlock FL / AC 0.16 1% Hadlock Other Structures FHR 150 bpm Anatomy Heart: Normal [place] and [place]. Stomach: Visible, with correct situs. Arms: Both Upper Extremities Seen. Legs: Both Lower Extremities Seen. The following structures appear normal: Cranium. Head size. Head shape. Brain. Right choroid plexus. Left choroid plexus. Midline falx. Thalami. Cerebellum. Face. Profile. Cardiac axis. 4-chamber view. 8-gefsau-cweqrff view. Thorax. Diaphragm. Abdominal wall. Cord insertion. [...] Suboptimal view: limited by early gestational age [facility] Radiology Study observation (narrative) [facility] Work Phone: Radiology Study observation (narrative) [facility] US for pregnancyOrdered By: Doretha Marie on 08-16-2024 [facility] Work Phone: US for pregnancyOrdered By: Radiologist Radiology on 08-16-2024 [facility] Work Phone: Urinalysis macro (dipstick) panel (U)on 08-01-2024 Bilirubin, UA Negative Negative - 4(70) +++ mg/dL [facility] Blood, UA Negative Negative - 50 Gabriel/mcL [facility] Clarity, UA Clear [facility] Color, UA Yellow [facility] Glucose, UA Negative Negative - 2000(110) ++++ mg/dL [facility] Interpretation and review of laboratory results Normal [facility] Ketones, UA Negative Negative - 160(16) ++++ mg/dL [facility] Leukocytes, UA Negative Negative - 500+++ Sebastián/mcL [facility] Nitrite, UA Negative Negative - Positive [facility] pH, UA 7 5 - 9 [facility] Protein, UA Negative Negative - 2000(20) ++++ mg/dL [facility] Spec Grav, UA 1.02 1 - 1.03 [facility] Urobilinogen, UA 0.2 0.2 - 12 mg/dL [facility] BOX TESTon 07-07-2024 BOX TEST SENT OUT [facility] BOX1 [facility] BOX2 07/07/24 [facility] BOX [facility] US OB TRANSVAGINALon 025 US OB TRANSVAGINAL [...] II, MD, PHD at 02-Jul-2024 09:14:34 AM [facility] Normal Not Available Comment on above: Order Comment: US OB TRANSVAGINAL No LMP recorded. ED Clinical Summaryon 2023 ED Clinical Summary ED Clinical Summary [address] [address] ED Clinical Summary Person Information Name: ANAND HERRERA [place] Age: 23 Years : 2000 Sex: Female Language: Libyan PCP: Kathy Mccall DO Marital Status: Single Phone: [phone] Visit Id: Visit Reason: Ear pain; RIGHT [...] 01:34:08 04/19/2024 01:34:08 04/19/2024 01:34:08 [address] [facility] [id number] PHYS DOC NOTES: MEDICAL INFORMATION: Prescriptions Given: [...] Follow up: With: Address: When: Kathypaul Montenegro, [facility], [address] [address] [facility] (1) In 3 days 04/22/2024 Comments: Return to the emergency room if your pain recurs or any new symptoms. DIAGNOSIS: 1:Ear pain, right; 2:Upper respiratory infection Normal [facility] ED Note-Physicianon 04-19-20 ED Note-Physician ED Note-Physician [...] and Complexity of Problems Differential Diagnosis: [] [facility] Data External documents reviewed: [] My [...] home. She was instructed to take decongestion koor-ifq-uaqowol. 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 Advanced Server Software Engineer:None The exam and treatment you received in [...] Instructions: With: Address: When: Kathy Mccall [address] [place] [address], [facility], [address] [address] Business (1) In 3 days [...] opioids can be used to help relieve gyxrajml-vm-ugprxd pain and are often prescribed following a [...] to learn (more content not included)... Normal [facility] IGP,APTIMA HPV,AGE GDLNon AGE GDLN ACOG TESTING Note . [facility] Comment on above: TESTS RESULT FLAG UN ITS REF RANGE LAB Clinician Provided Cytology Information Source.............Cervix;Endocervix No. of containers..01 ThinPrep Vial Age Algo ACOG Magdalene... FLAG LEGEND: L-Low Normal,H-High Normal,LL-Alert Low,HH-Alert High <-Panic Low,>-Panic High,A-Abnormal,AA-Critical Abnormal Performed at: 01 =[facility] [place] [address] Clara Castro MD, IGP, RFX APTIMA HPV ASCU Note . [facility] Comment on above: TESTS RESULT FLAG U NITS REF RANGE LAB DIAGNOSIS: 02 NEGATIVE FOR INTRAEPITHELIAL LESION OR MALIGNANCY. Specimen adequacy: 02 Satisfactory for evaluation. Endocervical and/or squamous metaplastic cells (endocervical component) are present. Performed by: 02 Simona Platt, Capsule Machine Operator ([facility]) . 02 Note: Note 02 The Pap smear is a screening test designed to aid in the detection of premalignant and malignant conditions of the uterine cervix. It is not a diagnostic procedure and should not be used as the sole means of detecting cervical cancer. Both false-positive and false-negative reports do occur. Test Methodology: Note 02 The BTC.sx(R) Soap Mixer was unable to read this specimen. Therefore a manual review was performed. FLAG LEGEND: L-Low Normal,H-High Normal,LL-Alert Low,HH-Alert High <-Panic Low,>-Panic High,A-Abnormal,AA-Critical Abnormal Performed at: 02 [facility] [address] [place] [address] Clara Castro MD, . 02 The HPV DNA reflex criteria were not met with this specimen result therefore, no HPV testing was performed. The HPV DNA reflex criteria were not met with this specimen result therefore, no HPV testing was performed. Performed at: =G - [facility] [address], [place] [id number] Collection Administrator: Clara Castro MD, Phone: [phone] Performed at: [address] [place], [place] [id number] Collection Administrator: Clara Castro MD, Phone: [phone] BRUSH-SPATULA CERVIX ENDOCERVIX [facility] OB Completed scan + Detailed Anatomyon 11-10-2022 [...] EFW (oz) 10 oz EFW by: Hadlock ([id number]) Extended Chief Design Branch 7.6 mm CM 4.4 mm 35% Nicolaides [...] Normal LVOT view: Normal 3-vessel view: Normal 7-hswcps-qslskqt view: Normal Heart / Thorax Situs: situs [...] sex (more content not included)... Normal [facility] OB NT (Nuchal Translucency)o n 09-26-2022 [...] gestational sac with a live fetus - Vass rump length is consistent with given OTF [...] Extended Nasal bone: present Anatomy Heart: Normal [place] and Situs. Stomach: Visible, with correct situs. [...] Method ====== Transabdominal ultrasound examination. View: Sufficient HBsAg Screen Negative Normal Negative [facility] Comment on above: Performed By: #### H BSANS #### [facility] [address] [place] [address] Dr. Stoney Rodriguez HEPATITIS C VIRUS AB W/ REFL EX QUANTon 09-05-2022 HCV AB Non-Reactive Normal Non Reactive [facility] Comment on above: Performed By: #### H CVPCRR #### [facility] [address] [place] [address] Dr. Stoney Rodriguez Interpretation: Comment Normal [facility] Comment on above: Result Comment: Not infected with HCV unless early or acute infection is suspected (which may be delayed in an immunocompromised individual), or other evidence exists to indicate HCV infection. Performed By: #### H CVPCRR #### [facility] [address] [place] [address] Dr. Stoney Rodriguez HIV 1 AND 2 WITH REFLEXon HIV Screen 4th Generation wRfx Non-Reactive Normal Non Reactive [facility] Comment on above: Result Comment: HIV Negative HIV-1/HIV-2 antibodies and HIV-1 p24 antigen were NOT detected. There is no laboratory evidence of HIV infection. Performed By: #### T NS #### [facility] [address] [place] [address] Dr. Stoney Rodriguez RPR QUANTon 09-05-2022 Rapid Plasma Reagin, Quant Non-Reactive Normal NonRea<1:1 [facility] Comment on above: Result Comment: Plea se Note: This test does not meet current guidelines for screening and diagnosis of syphilis. This test is intended for following treatment response in patients being treated for syphilis infection. To screen for syphilis infection, a reflex cascade that includes both RPR and a treponema-specific assay should be utilized, such as Treponema pallidum (Syphilis) Screening [place] (853466) or Rapid Plasma Reagin (RPR) Test With Reflex to Quantitative RPR and Confirmatory Treponema pallidum Antibodies (926617). Performed By: #### R PRQ #### [facility] [address] [place] [address] Dr. Stoney Rodriguez RUBELLA AB IGGon 09-05-2022 Rubella Antibodies, IgG 11.40 index Normal Immune >0.99 [facility] Comment on above: Result Comment: Non- immune <0.90 Equivocal 0.90 - 0.99 Immune >0.99 Performed By: #### R UBIGG #### [facility] [address] [place] [address] Dr. Stoney Rodriguez BOX TEST SENT OUTon 09-05-19 23 SENT TO REF LAB 09/04/22 Normal [facility] Comment on above: Performed By: #### B OX #### [facility] [address] [place] [address] Dr. Stoney Rodriguez CBC AUTO DIFFon 09-04-2022 BASO # 0.0 103/ul Normal 0.0-0.1 [facility] Comment on above: Performed By: #### C BC #### [facility] [address] [place] [address] Dr. Stoney Rodriguez Basophils/100 WBC (Bld) 0.4 % Normal 0.2-2.0 [facility] Comment on above: Performed By: #### C BC #### [facility] [address] [place] [address] Dr. Stoney Rodriguez EO # 0.1 103/ul Normal 0.0-0.7 [facility] Comment on above: Performed By: #### C BC #### [facility] [address] [place] [address] Dr. Stoney Rodriguez Eosinophils/100 WBC (Bld) 0.7 % Critically low 0.9-7.0 [facility] Comment on above: Performed By: #### C BC #### [facility] [address] [place] [address] Dr. Stoney Rodriguez Erythrocyte distribution width (RBC) [Ratio] 14.5 % Normal 11.0-15.0 [facility] Comment on above: Performed By: #### C BC #### [facility] [address] [place] [address] Dr. Stoney Rodriguez Hematocrit (Bld) [Volume fraction] 36.7 % Normal 36.0-48.0 [facility] Comment on above: Performed By: #### C BC #### [facility] [address] [address] [address] Stoney Rodriguez Hemoglobin (Bld) [Mass/Vol] 11.9 g/dL Critically low 12.0-16.0 [facility] Comment on above: Performed By: #### C BC #### [facility] [address] [address] [address] Stoney Rodriguez IG # 0.03 10e3/ul Normal 0.00-0.03 [facility] Comment on above: Performed By: #### C BC #### [facility] [address] [place] [address] Dr. Stoney Rodriguez IG % 0.4 % Normal 0.0-0.5 [facility] Comment on above: Performed By: #### C BC #### [facility] [address] [place] [address] Dr. Stoney Rodriguez LYMPH # 2.0 103/ul Normal 1.2-3.8 [facility] Comment on above: Performed By: #### C BC #### [facility] [address] [place] [address] Dr. Stoney Rodriguez Lymphocytes/100 WBC (Bld) 23.3 % Normal 20.5-60.0 [facility] Comment on above: Performed By: #### C BC #### [facility] [address] [place] [address] Dr. Stoney Rodriguez MANUAL DIFF REQ NO Normal [facility] Comment on above: Performed By: #### C BC #### [facility] [address] [place] [address] Dr. Stoney Rodriguez MCH (RBC) [Entitic mass] 28.7 pg Normal 26.7-34.0 [facility] Comment on above: Performed By: #### C BC #### [facility] [address] [place] [address] Dr. Stoney Rodriguez MCHC (RBC) [Mass/Vol] 32.4 g/dL Normal 29.9-35.2 [facility] Comment on above: Performed By: #### C BC #### [facility] [address] [address] [address] Stoney Rodriguez MCV (RBC) [Entitic vol] 88.6 fL Normal 81.0-99.0 [facility] Comment on above: Performed By: #### C BC #### [facility] [address] [address] [address] Stoney Rodriguez MONO # 0.5 103/ul Normal 0.3-0.8 [facility] Comment on above: Performed By: #### C BC #### [facility] [address] [address] [address] Stoney Rodriguez Monocytes/100 WBC (Bld) 6.2 % Normal 1.7-12.0 [facility] Comment on above: Performed By: #### C BC #### [facility] [address] [address] [address] Stoney Rodriguez NEUT # 5.9 103/ul Normal 1.4-6.5 [facility] Comment on above: Performed By: #### C BC #### [facility] [address] [address] [address] Stoney Rodriguez Neutrophils/100 WBC (Bld) 69.0 % Normal 43.0-75.0 [facility] Comment on above: Performed By: #### C BC #### [facility] [address] [address] [address] Stoney Rodriguez Platelet mean volume (Bld) [Entitic vol] 9.7 fL Normal 9.5-13.5 [facility] Comment on above: Performed By: #### C BC #### [facility] [address] [address] [address] Stoney Rodriguez PLT 378 103/ul Normal 150-450 [facility] Comment on above: Performed By: #### C BC #### [facility] [address] [address] [address] Stoney Rodriguez RBC 4.14 106/ul Critically low 4.20-5.40 [facility] Comment on above: Performed By: #### C BC #### [facility] [address] [address] [address] Stoney Rodriguez WBC 8.5 103/ul Normal 4.0-11.0 [facility] Comment on above: Performed By: #### C BC #### [facility] [address] [address] [address] Stoney Rodriguez CULTURE URINEon 09-04-2022 CULTURE URINE Culture Observations : NO GROWTH. Normal [facility] Comment on above: Performed By: #### U RCX #### [facility] [address] [place] [address] Dr. Stoney Rodriguez GLYCOHEMOGLOBIN A1Con 2022 ADA RECOMMENDATION SEE BELOW Normal [facility] Comment on above: Result Comment: ADA RECOMMENDED LIMIT 4.0 - 6.0 ADA THERAPEUTIC TARGET < 7.0 ACTION SUGGESTED > 7.0 Performed By: #### A 1C #### [facility] [address] [place] [address] Dr. Stoney Rodriguez Glucose [Mass/Vol] 94 mg/dL Normal [facility] Comment on above: Performed By: #### A 1C #### [facility] [address] [place] [address] Dr. Stoney Rodriguez HbA1c (Bld) [Mass fraction] 4.9 % Normal 4.5-6.2 [facility] Comment on above: Performed By: #### A 1C #### [facility] [address] [place] [address] Dr. Stoney Rodriguez TSHon 09-04-2022 TSH 0.653 uIU/mL Normal 0.358-3.740 [facility] Comment on above: Performed By: #### T SH #### [facility] [address] [place] [address] Dr. Stoney Rodriguez TYPE AND SCREENon 09-04-2022 TYPE AND SCREEN Negative Normal [facility] Comment on above: Performed By: #### T NS #### [facility] [address] [place] [address] Dr. Stoney Rodrigeuz US PREG TVon 08-14-2022 US PREG TV [...] by: BILLIE SMITH Date: 2022-08-14 16:07 Normal [facility] CHEMISTRYOrdered By: Ida Mcfarland on 12-19-2021 Anion gap [Moles/Vol] 11 mmol/L Normal 6 - 16 mEq/L [facility] Remisol Calcium [Mass/Vol] 8.9 mg/dL Normal 8.9 [...] rate/Area] mL/min/1.73 m2 Normal >=59mL/min/1 .73 m2 [facility] [place] Chem S GFR/1.73 sq M.predicted among non-blacks [...] 1 S Amikacin(JAI) 4 S Normal [facility] Comment on above: Performed By: #### C /UR ####[address] [place] [address] [place], [place] [id number] Culture, Urineon 04-28-2020 Bacteria identified Cx Nom (U) 10,000-50,000 CFU/ml [place], [place] Bacteria identified Cx Nom (U) Normal urogenital praneeth present. Abnormal [place], [place] Bacteria identified Cx Nom (U) Escherichia coli Abnormal [place] Interpretation and review of laboratory results Abnormal [place] Test Performed by [address] [address] [place], [place] Hemoglobinon 04-27-2020 Hemoglobin (Bld) [Mass/Vol] 7.1 g/dL Low 11.7-16.0 [facility] Comment on above: Performed By: #### H EMGB #### [address] [address] Hemoglobin (Bld) [Mass/Vol] 7.1 g/dL Low 11.7 - 16 g/dL [place] Interpretation and review of laboratory results Abnormal [place] Test Performed by [facility], [address] [place] [address] [place], [place] Group B Strep Screen PCRon 1 [...] - Real Time PCR (Cepheid) Normal [facility] Comment on above: Performed By: #### G [facility] ####[facility] [place] [address] Group B Strep, PCRon 020 Group B Strep Screen PCR NEGATIVE Expected Result: Negative CDC guidelines for prevention of Group B Strep disease recommends collection of both vaginal and rectal specimens for optimal recovery of GBS. Methodology - Real Time PCR (Cepheid) [place], [place] Test Performed by [facility], [address] [place] [address] [place], [place] Op Noteon 04-26-2020 Op Note PATIENT: [...] She also did have a TAP block. [employer] Architect: Dr. Benjamin. Replacement: 1500 cc of crystalloid. [...] 1500 cc of crystalloid. Diskriter Job ID: [id number] Zac Chowdhury MD DOD:04/26/2020 07:56 A JAKUB/kimmy DOT:04/26/2020 10:55 A Job Number: [id number] Document Number: [id number] cc: Zac Chowdhury MD [address] [place] [id number] Fariha Matos [address] [facility] [address] Normal [facility] C. Trachomatis / N. Gonorrho eae, DNA Probeon 04-25-2020 C. trachomatis DNA ARCHANA+probe Ql (Genital specimen) NOT Detected Chlamydia trachomatis Nucleic Acid NOT Detected by DNA Amplification using the Cepheid System. Culture is the only recommended test in medical-legal cases such as suspected child abuse or molestation. [place], [place] N. gonorrhoeae DNA ARCHANA+probe Ql (Unsp spec) NOT Detected Neisseria gonorrhoeae Nucleic Acid NOT Detected by DNA Amplification using the Cepheid System. Culture is the only recommended test in medical-legal cases such as suspected child abuse or molestation. [place], [place] Test Performed by [facility], [address] [place] [id number] [place], [place] CBCon 04-25-2020 Erythrocyte distribution width (RBC) [Ratio] 18.2 % High 11.5 - 14.5 % [place] Hematocrit (Bld) [Volume fraction] 30.6 % Low 35 - 47 % [place] Hemoglobin (Bld) [Mass/Vol] 9.7 g/dL Low 11.7 - 16 g/dL [place] Interpretation and review of laboratory results Abnormal [place] MCH (RBC) [Entitic mass] 26.2 pg 26 - 34 pg [place] MCHC (RBC) [Mass/Vol] 31.9 % Low 32 - 36 % [place], [place] MCV (RBC) [Entitic vol] 82.2 fL 79 - 98 fL [place] Platelet mean volume (Bld) [Entitic vol] 8.1 fL 7.4 - 10.4 fL [place] Platelets (Bld) [#/Vol] 249 10*3/uL 140 - 440 10*3/uL [place] RBC (Bld) [#/Vol] 3.72 10*6/uL Low 3.8 - 5.2 10*6/uL [place] WBC (Bld) [#/Vol] 13.3 10*3/uL High 3.6 - 10.7 10*3/uL [place] Test Performed by [facility], [address] [place] [id number] [place] [address] CREATININE, RANDOM URINEon 1 Creatinine (U) [Mass/Vol] 66.8 mg/dL No Range [place], [place] Chlamydia and GC PCR Panelon 04-25-2020 Chlamydia and GC PCR Panel Chlamydia trachomatis PCR --> Status: F NOT Detected Chlamydia trachomatis Nucleic Acid NOT Detected by DNA Amplification using the readness.comheid System. Culture is the only recommended test [...] suspected child abuse or molestation. Normal [facility] Comment on above: Performed By: #### C TNGP ####[facility] [place], [place] Comp Metabolic Panelon 04-25 Calcium [Mass/Vol] 8.5 mg/dL Normal 8.4-10.4 [facility] Comment on above: Performed By: #### P T/AP, CMP3, HEMOG, FIBGN #### [facility] [address] [place], [place] Glucose [Mass/Vol] 97 mg/dL Normal 70-100 [facility] Comment on above: Performed By: #### P T/AP, CMP3, HEMOG, FIBGN #### [facility] [address] [place], [place] ALP [Catalytic activity/Vol] 114 U/L Normal 38-126 [facility] Comment on above: Result Comment: Slig htly hemolysed, interpret with caution. Performed By: #### P T/AP, CMP3, HEMOG, FIBGN #### [facility] [address] [place], [place] ALT [Catalytic activity/Vol] 19 U/L Normal 0-34 [facility] Comment on above: Result Comment: The ALT test is performed by an updated assay method. Please note that the reference intervals have been changed and are now sex specific. Performed By: #### P T/AP, CMP3, HEMOG, FIBGN #### [facility] [address] [place], [place] Anion Gap 6 Normal [facility] Comment on above: Performed By: #### P T/AP, CMP3, HEMOG, FIBGN #### [facility] [address] [place], [place] AST [Catalytic activity/Vol] 39 U/L Normal 15-46 [facility] Comment on above: Result Comment: Slig htly hemolysed, interpret with caution. Performed By: #### P T/AP, CMP3, HEMOG, FIBGN #### [facility] [address] [place], [place] Bilirubin [Mass/Vol] 0.5 mg/dL Normal 0.2-1.3 [facility] Comment on above: Performed By: #### P T/AP, CMP3, HEMOG, FIBGN #### [facility] [address] [place], [place] CO2 [Moles/Vol] 20 mmol/L Low 22-30 [facility] Comment on above: Performed By: #### P T/AP, CMP3, HEMOG, FIBGN #### [address] [address] [place], [place] Creatinine [Mass/Vol] 0.63 mg/dL Normal 0.52-1.25 [facility] Comment on above: Performed By: #### P T/AP, CMP3, HEMOG, FIBGN #### [address] [address] [place], [place] eGFR OTHER > 90.0 Normal >60 [facility] Comment on above: Result Comment: KDIG [...] P T/AP, CMP3, HEMOG, FIBGN #### [facility] [address] [place], [place] GFR/1.73 sq M.predicted among blacks MDRD (S/P/Bld) [Vol rate/Area] mL/min/{1.73_m2} Normal >60 [facility] Comment on above: Performed By: #### P T/AP, CMP3, HEMOG, FIBGN #### [address] [address] [place] [address] Protein [Mass/Vol] 6.9 g/dL Normal 6.3-8.2 [facility] Comment on above: Performed By: #### P T/AP, CMP3, HEMOG, FIBGN #### [facility] [address] [place], [place] Urea nitrogen [Mass/Vol] 14 mg/dL Normal 7-20 [facility] Comment on above: Performed By: #### P T/AP, CMP3, HEMOG, FIBGN #### [address] [address] [address] [place], [place] Potassium [Moles/Vol] 4.3 mmol/L Normal 3.5-5.1 [facility] Comment on above: Result Comment: Slig htly hemolysed, interpret with caution. Performed By: #### P T/AP, CMP3, HEMOG, FIBGN #### [address] [address] [address] [place], [place] Sodium [Moles/Vol] 134 mmol/L Low 135-145 [facility] Comment on above: Performed By: #### P T/AP, CMP3, HEMOG, FIBGN #### [address] [place] [address] Albumin [Mass/Vol] 3.4 g/dL Low 3.5-5.0 [facility] Comment on above: Performed By: #### P T/AP, CMP3, HEMOG, FIBGN #### [address] [address] [address] [place], [place] Chloride [Moles/Vol] 107 mmol/L Normal 98-107 [facility] Comment on above: Performed By: #### P T/AP, CMP3, HEMOG, FIBGN #### [address] [place] [address] Comprehensive Metabolic Pane parag 04-25-2020 Albumin [Mass/Vol] 3.4 g/dL Low 3.5 - 5 g/dL [facility] [place] [place] ALP [Catalytic activity/Vol] 114 U/L 38 - 126 U/L [place] Comment on above: Slightly hemolysed, interpret with caution. ALT [Catalytic activity/Vol] 19 U/L 0 - 34 U/L [place] Comment on above: The ALT test is perf ormed by an updated assay method. Please note that the reference intervals have been changed and are now sex specific. Anion gap [Moles/Vol] 6 mmol/L [place], [place] AST [Catalytic activity/Vol] 39 U/L 15 - 46 U/L [place] Comment on above: Slightly hemolysed, interpret with caution. Bilirubin Ql (U) 0.5 mg/dL 0.2 - 1.3 mg/dL [place] Calcium [Mass/Vol] 8.5 mg/dL 8.4 - 10. 4 mg/dL [place] Chloride [Moles/Vol] 107 mmol/L 98 - 10 7 mmol/L [place] CO2 [Moles/Vol] 20 mmol/L Low 22 - 30 mmol/L [place] Creatinine [Mass/Vol] 0.63 mg/dL 0.52 - 1.25 mg/dL [place] EGFR IF NonAfrican [place]ese >90.0 >60 mL/min [place] Comment on above: KDIGO guidelines pro [...] MDRD (S/P/Bld) [Vol rate/Area] mL/min/{1.73_m2} >60 mL/min [place] Glucose [Mass/Vol] 97 mg/dL 70 - 100 mg/dL [place] Interpretation and review of laboratory results Abnormal [place] Potassium [Moles/Vol] 4.3 mmol/L 3.5 - 5.1 mmol/L [place] Comment on above: Slightly hemolysed, interpret with caution. Protein [Mass/Vol] 6.9 g/dL 6.3 - 8.2 g/dL [place] Sodium [Moles/Vol] 134 mmol/L Low 135 - 145 mmol/L [place] Urea nitrogen [Mass/Vol] 14 mg/dL 7 - 20 mg/dL [place] Creatinine, Ur Randomon 03-29 Creatinine, Ur Random 66.8 mg/dL Normal No Range [facility] Comment on above: Performed By: #### C RTUR, TPUR, MAT #### [address] [address] [place], [place] Fibrinogenon 04-25-2020 Fibrinogen 390 mg/dL Normal 200-400 [place] Comment on above: Performed By: #### P T/AP, CMP3, HEMOG, FIBGN #### [address] [address] [place] Hemogramon 04-25-2020 Erythrocyte distribution width (RBC) [Ratio] 18.2 % High 11.5-14.5 [facility] Comment on above: Performed By: #### P T/AP, CMP3, HEMOG, FIBGN #### [address] [address] [place] Hematocrit (Bld) [Volume fraction] 30.6 % Low 35.0-47.0 [facility] Comment on above: Performed By: #### P T/AP, CMP3, HEMOG, FIBGN #### [address] [address] [place] Hemoglobin (Bld) [Mass/Vol] 9.7 g/dL Low 11.7-16.0 [facility] Comment on above: Performed By: #### P T/AP, CMP3, HEMOG, FIBGN #### [address] [address] [address] [place], [place] MCH (RBC) [Entitic mass] 26.2 pg Normal 26.0-34.0 [facility] Comment on above: Performed By: #### P T/AP, CMP3, HEMOG, FIBGN #### [address] [address] [address] [place] MCHC 31.9 % Low 32.0-36.0 [facility] Comment on above: Performed By: #### P T/AP, CMP3, HEMOG, FIBGN #### [address] [address] [address] [place] MCV (RBC) [Entitic vol] 82.2 fL Normal 79.0-98.0 [facility] Comment on above: Performed By: #### P T/AP, CMP3, HEMOG, FIBGN #### [address] [address] [address] [place], [place] Platelet mean volume (Bld) [Entitic vol] 8.1 fL Normal 7.4-10.4 [facility] Comment on above: Performed By: #### P T/AP, CMP3, HEMOG, FIBGN #### [address] [address] [place], [place] Platelets (Bld) [#/Vol] 249 10*3/uL Normal 140-440 [facility] Comment on above: Performed By: #### P T/AP, CMP3, HEMOG, FIBGN #### [address] [address] [place], [place] RBC (Bld) [#/Vol] 3.72 10*6/uL Low 3.80-5.20 [facility] Comment on above: Performed By: #### P T/AP, CMP3, HEMOG, FIBGN #### [address] [place] [place] WBC (Bld) [#/Vol] 13.3 10*3/uL High 3.6-10.7 [facility] Comment on above: Performed By: #### P T/AP, CMP3, HEMOG, FIBGN #### [facility] [address] [place], [place] Medication Assisted Treatmen t Panelon 04-25-2020 Fentanyl Negative Normal [facility] Comment on above: Performed By: #### C RTUR, TPUR, MAT #### [address] [address] [place], [place] Amphetamines Ql (U) Negative Normal [facility] Comment on above: Performed By: #### C RTUR, TPUR, MAT #### [address] [address] [place], [place] Barbiturates Negative Normal [facility] Comment on above: Performed By: #### C RTUR, TPUR, MAT #### [address] [address] [place], [place] Benzodiazepines Ql (U) Negative Normal [facility] Comment on above: Performed By: #### C RTUR, TPUR, MAT #### [address] [address] [place], [place] Buprenorphine Screen Negative [facility] Comment on above: Performed By: #### C RTUR, TPUR, MAT #### [address] [address] [place], [place] Cocaine Ql (U) Negative Normal [facility] Comment on above: Performed By: #### C RTUR, TPUR, MAT #### [address] [address] [place], [place] Ethanol [Mass/Vol] Negative Normal [facility] Comment on above: Performed By: #### C RTUR, TPUR, MAT #### [address] [address] [address] [place], [place] Methadone Ql (U) Negative Normal [facility] Comment on above: Performed By: #### C RTUR, TPUR, MAT #### [address] [address] [place], [place] Opiates Ql (U) Negative Normal [facility] Comment on above: Performed By: #### C RTUR, TPUR, MAT #### [facility] [address] [facility], [place] Oxycodone/Oxymorphone Negative Normal [facility] Comment on above: Performed By: #### C RTUR, TPUR, MAT #### [facility] [address] [facility], [place] PCP Negative Normal [facility] Comment on above: Performed By: #### C RTUR, TPUR, MAT #### [facility] [address] [facility], [place] THC Negative Normal [facility] Comment on above: Performed By: #### C RTUR, TPUR, MAT #### [facility] [address], [place] Amphetamines Ql (U) Negative [facility], [place] Benzodiazepines Ql (U) Negative [facility] [place], [place] Cocaine Ql (U) Negative [facility], [place] Ethanol [Mass/Vol] Negative [facility] [place], [place] Methadone Ql (U) Negative [facility] [place], [place] Opiates Ql (U) Negative [facility] [place], [place] Sodium [Moles/Vol] See Below [facility], [place] Comment on above: The expected value [...] performed using non-forensic procedures. Test Performed by [place] [address] [address] [facility] [place] [facility], [place] MAT Panel Test Comment See Below Normal [facility] Comment on above: Result Comment: The [...] By: #### C RTUR, TPUR, MAT #### [address] [id number] Metabolic Panelon 04-25-2020 Sodium [Moles/Vol] Negative [place], [place] Otheron 04-25-2020 Test Performed by [address] Test Performed by [address] PROTEIN, URINE, RANDOMon Interpretation and review of laboratory results Abnormal [place], [place] Protein (U) [Mass/Vol] 88 mg/dL High No Range [place], [place] PROTIME/INR & PTTon 04-25-20 20 INR Coag (PPP) [Relative time] 0.9 {INR} [place], [place] Comment on above: Recommended Anticoag ulant [...] Random 88 mg/dL High No Range [facility] Comment on above: Performed By: #### C RTUR, TPUR, MAT #### [facility] [address], [place] Protime AND APTTon 0 aPTT Coag (Bld) [Time] 21.4 s Normal 20.0-30.5 [place], [place] Comment on above: NOTE: The therapeuti c time for Heparin anticoagulation, based on Xa activity inhibition, is an APTT of 46-80 seconds. Result Comment: NOTE : The therapeutic time for Heparin anticoagulation, based on Xa activity inhibition, is an APTT of 46-80 seconds. Performed By: #### P T/AP, CMP3, HEMOG, FIBGN #### [facility] [address], [place] INR 0.9 Normal 0.9-1.1 [facility] Comment on above: Result Comment: Trell [...] P T/AP, CMP3, HEMOG, FIBGN #### [facility] [address], [place] PT Coag (PPP) [Time] 9.6 s Normal 9.0-12.0 [place], [place] Comment on above: . Result Comment: . Performed By: #### P T/AP, CMP3, HEMOG, FIBGN #### [facility] [address], [place] TS GELon 04-25-2020 TS GEL ABO Group: O Rh, Gel: POS Antibody Screen Gel: NEG Normal [facility] Comment on above: Performed By: #### T SGL ####[facility] TYPE AND SCREENon 04-25-2020 Sodium [Moles/Vol] Negative [facility], [place] Sodium [Moles/Vol] O [facility] Sodium [Moles/Vol] Positive [facility] Test Performed by [facility], [address] [place] [id number] [facility], [place] ABO, External Resulton 04-10 ABO, External Result O [facility], [place] C. Trachomatis, External Res ulton 04-10-2020 C. Trachomatis, External Result Negative [facility], [place] HIV, External Resulton 04-10 HIV, External Result Negative [facility], [place] Hepatitis B, External Result on 04-10-2020 Hep B, External Result Negative [facility], [place] N. Gonorrhoeae, External Res ulton 04-10-2020 N. Gonorrhoeae, External Result Negative [facility], [place] Otheron 04-10-2020 Verified with Fer Alejo rn [place], [place] RPR, External Labon 04-10-20 20 RPR, External Result Negative [facility], [place] Rh Factor, External Resulton 04-10-2020 Rh Factor, External Result Positive [place], [place] Rubella Titer, External Resu lton 04-10-2020 Rubella Titer, External Result IMMUNE [place], [place] Progress Noteon 03-08-2020 [employer] Supervisor Authentication Interface Message Text Pediatric Cardiology Echocardiogram [...] in visit on 03/08/20 [place] [address] [employer] ---- Echocardiogram Report M-mode, complete 2D, complete spectral Doppler, and color Doppler PATIENT: Anand Herrera STUDY DATE/TIME: Mar 08 2020 12:04PM HEIGHT: : 2000 WEIGHT: AGE: 19yr BSA/BMI: / GENDER: F BP: 137 / 64 LOCATION: [facility] REFERRING PHYSICIAN: Zac Martinez Md [...] AND PROCEDURE DATA: Procedure Description: Hilda Borrero ([id number]) . Study status: Routine. Location: lab. Procedure: [...] a patent foramen ovale. There is a [id number] shunt. Left atrium - The atrium is [...] of all we discussed. Hannah Guevara MD [facility] Auto Bumper Straightener [facility] Clinical Medical Staff Services Coordinator of Pediatrics [facility] Counseling and coordination of care for this patient was greater than 35minutes which is more than 50% of the total time of 60 minutes spent on the encounter. Normal [facility] [employer] Supervisor Authentication Interface Message Text Pediatric Hand Surgery [...] to requesting provider. 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 Consent to share information with [facility] team, OB and desulfurizer operator signed. Pt plans to deliver at [facility] with Dr Martinez. Forestry Aid is not yet decided. female fetus- name is Sheldon Method of feeding: breast and bottle Ultrasound findings today: See report in procedures for details. Reinforced continued OB care with Dr Martinez- next appointment- next week Normal [facility] [employer] Supervisor Authentication Interface Message Text [facility] [...] Herrera also met with Jerilyn Agee, Clinical Medical Coding Specialist from our [facility]. Jerilyn will continue to help coordinate and care. consultation with Pediatric Orthopedic Surgery in the Hand and Upper Extremity Clinic is being arranged. follow up with Pediatric Orthopedic Surgery should be within one month of age or otherwise as per their recommendations. Call [phone] to schedule. Consultation with Medical Genetics should be considered in the period, especially if additional concerns are noted after delivery. The desulfurizer operator or patient can request this consultation. Call [phone] to schedule. Indicate that you were followed by the [facility] when scheduling. Diagnosis: DIAGNOSIS. 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 Plan: 1. Continued obstetrical care with her primary solder technician is recommended. 2. Follow up q4 weeks to evaluate biometric parameters and anatomy. These are planned with the [facility]/your office. 3. surveillance as follows: weekly BPP beginning at 32 weeks. 4. consultation with Pediatric Orthopedic Surgery in the Hand and Upper Extremity Clinic is being arranged. 5. Delivery is appropriate at your local institution/already planned in [place] with follow up as indicated. 6. Mode and timing of delivery are based on the usual obstetrical indications. 7. Anticipate normal nursery. OR Neonatology/Pediatric di to be present at delivery to evaluate and determine nursery placement. 8. follow up with Pediatric Orthopedic Surgery should be within one month of age or otherwise as per their recommendations. Call [phone] to schedule. 9. Consultation with Medical Genetics should be considered in the period, especially if additional concerns are noted after delivery. The desulfurizer operator or patient can request this consultation. Call [phone] to schedule. Indicate that you were followed by the [facility] when scheduling. 9. Other follow up as clinically indicated. Her complete [facility] Plan of Care summary will be distributed. The total patient time of the visit was 30 minutes, of which greater than 50% of the time was spent counseling and coordinating care. Junior Kat MD Normal [facility] Progress Noteon 02-15-2020 [employer] Supervisor Authentication Interface Message Text Dating for consult Normal [facility] Vital Signs Date Time Vital Sign Value Performing Clinician Facility 01-11-2025 14:39-0400 Body mass index (BMI) [Ratio] 30.8 kg/m2 Marco A Jc DO Work Phone: [facility] 01-11-2025 14:39-0400 Body weight 86.55 kg Marco A Jc DO Work Phone: [facility] 01-11-2025 14:39-0400 Diastolic blood pressure 64 mm[Hg] Marco A Jc DO Work Phone: [facility] 01-11-2025 14:39-0400 Systolic blood pressure 122 mm[Hg] Marco A Jc DO Work Phone: [facility] 01-04-2025 13:14-0400 Body mass index (BMI) [Ratio] 30.3 kg/m2 Simona Rosey PA Work Phone: [facility] 01-04-2025 13:14-0400 Body weight 85.16 kg Simona [place] PA Work Phone: [facility] 01-04-2025 13:14-0400 Diastolic blood pressure 62 mm[Hg] Simona Rosey PA Work Phone: [facility] 01-04-2025 13:14-0400 Systolic blood pressure 126 mm[Hg] Simona [place] PA Work Phone: [facility] 12-22-2024 13:57-0400 Body mass index (BMI) [Ratio] 30.57 kg/m2 Simona [place] PA Work Phone: [facility] 12-22-2024 13:57-0400 Body weight 85.91 kg Simona [place] PA Work Phone: [facility] 12-22-2024 13:57-0400 Diastolic blood pressure 68 mm[Hg] Simona Rosey PA Work Phone: [facility] 12-22-2024 13:57-0400 Systolic blood pressure 112 mm[Hg] Simona Rosey PA Work Phone: [facility] 12-08-2024 11:30-0400 Body mass index (BMI) [Ratio] 29.58 kg/m2 Marco A Jc DO Work Phone: [facility] 12-08-2024 11:30-0400 Body weight 83.12 kg Marco A Jc DO Work Phone: [facility] 12-08-2024 11:30-0400 Diastolic blood pressure 66 mm[Hg] Marco A Jc DO Work Phone: [facility] 12-08-2024 11:30-0400 Systolic blood pressure 122 mm[Hg] Marco A Jc DO Work Phone: [facility] 11-22-2024 11:51-0400 Body mass index (BMI) [Ratio] 29.34 kg/m2 Marco A Cj DO Work Phone: [facility] 11-22-2024 11:51-0400 Body weight 82.46 kg Marco A Jc DO Work Phone: [facility] 11-22-2024 11:51-0400 Diastolic blood pressure 66 mm[Hg] Marco A Jc DO Work Phone: [facility] 11-22-2024 11:51-0400 Systolic blood pressure 112 mm[Hg] Marco A Jc DO Work Phone: [facility] 10-25-2024 14:39-0400 Body mass index (BMI) [Ratio] 28.25 kg/m2 Simona ROSS Work Phone: [facility] 10-25-2024 14:39-0400 Body weight 79.38 kg Simona ROSS Work Phone: [facility] 10-25-2024 14:39-0400 Diastolic blood pressure 62 mm[Hg] Simona ROSS Work Phone: [facility] 10-25-2024 14:39-0400 Systolic blood pressure 110 mm[Hg] Simona ROSS Work Phone: [facility] 09-27-2024 14:51-0400 Body mass index (BMI) [Ratio] 27.12 kg/m2 Marco A Jc DO Work Phone: [facility] 09-27-2024 14:51-0400 Body weight 76.2 kg Marco A Jc DO Work Phone: [facility] 09-27-2024 14:51-0400 Diastolic blood pressure 70 mm[Hg] Marco A Jc DO Work Phone: [facility] 09-27-2024 14:51-0400 Systolic blood pressure 110 mm[Hg] Marco A Jc DO Work Phone: [facility] 08-29-2024 11:50-0400 Body mass index (BMI) [Ratio] 25.95 kg/m2 Marco A Jc DO Work Phone: [facility] 08-29-2024 11:50-0400 Body weight 72.94 kg Marco A Jc DO Work Phone: [facility] 08-29-2024 11:50-0400 Diastolic blood pressure 68 mm[Hg] Marco A Jc DO Work Phone: [facility] 08-29-2024 11:50-0400 Systolic blood pressure 114 mm[Hg] Marco A Jc DO Work Phone: [facility] 08-01-2024 13:20-0400 Body mass index (BMI) [Ratio] 26.95 kg/m2 Marco A Jc DO Work Phone: [facility] 08-01-2024 13:20-0400 Body weight 75.75 kg Marco A Jc DO Work Phone: [facility] 08-01-2024 13:20-0400 Diastolic blood pressure 70 mm[Hg] Marco A Jc DO Work Phone: [facility] 08-01-2024 13:20-0400 Systolic blood pressure 120 mm[Hg] Marco A Jc DO Work Phone: [facility] 05-19-2024 11:32-0500 Body mass index (BMI) [Ratio] 23.4 kg/m2 Marco A Jc DO Work Phone: [facility] 05-19-2024 11:32-0500 Body weight 65.77 kg Marco A Jc DO Work Phone: [facility] 05-19-2024 11:32-0500 Diastolic blood pressure 74 mm[Hg] Marco A Jc DO Work Phone: [facility] 05-19-2024 11:32-0500 Systolic blood pressure 110 mm[Hg] Marco A Jc DO Work Phone: [facility] 04-19-2024 01:09-0500 Body temperature 98.06 [degF] [facility] 04-19-2024 01:09-0500 Diastolic blood pressure 84 mm[Hg] [facility] 04-19-2024 01:09-0500 Heart rate 90 /min [facility] 04-19-2024 01:09-0500 Respiratory rate 16 /min [facility] 04-19-2024 01:09-0500 SaO2% (BldA) [Mass fraction] 100 % [facility] 04-19-2024 01:09-0500 Systolic blood pressure 126 mm[Hg] [facility] 03-08-2024 15:12-0500 Body mass index (BMI) [Ratio] 22.29 kg/m2 Marco A Jc DO Work Phone: [facility] 03-08-2024 15:12-0500 Body weight 62.65 kg Marco A Jc DO Work Phone: [facility] 03-08-2024 15:12-0500 Diastolic blood pressure 70 mm[Hg] Marco A Jc DO Work Phone: [facility] 03-08-2024 15:12-0500 Systolic blood pressure 120 mm[Hg] Marco A Jc DO Work Phone: [facility] 10-14-2022 12:27-0400 Body temperature 98.24 [degF] Nakul Cannon [facility] 10-14-2022 12:27-0400 Diastolic blood pressure 64 mm[Hg] Nakul Cannon [facility] 10-14-2022 12:27-0400 Heart rate 107 /min Nakul Cannon [facility] 10-14-2022 12:27-0400 Respiratory rate 18 /min Nakul Cannon [facility] 10-14-2022 12:27-0400 SaO2% (BldA) [Mass fraction] 100 % Nakul Cannon [facility] 10-14-2022 12:27-0400 Systolic blood pressure 113 mm[Hg] Nakul Cannon [facility] 12-19-2021 03:42-0400 Diastolic blood pressure 64 mm[Hg] Anthony Michelle [facility] 12-19-2021 03:42-0400 Heart rate 78 /min Anthony Michelle [facility] 12-19-2021 03:42-0400 Hourly Rounding Anthony Michelle [facility] 12-19-2021 03:42-0400 Nursing Progress Note Reason Other: Pt mediciated per orders. Family x1 cartside. Denies any needs at this time. Anthony Michelle [facility] 12-19-2021 03:42-0400 Respiratory rate 16 /min Anthony Michelle [facility] 12-19-2021 03:42-0400 SaO2% (BldA) [Mass fraction] 100 % Anthony Michelle [facility] 12-19-2021 03:42-0400 Systolic blood pressure 116 mm[Hg] Anthony Michelle [facility] 12-19-2021 02:40-0400 Diastolic blood pressure 70 mm[Hg] Anthony Michelle [facility] 12-19-2021 02:40-0400 Heart rate 82 /min Anthony Michelle [facility] 12-19-2021 02:40-0400 Hourly Rounding Anthony Michelle [facility] 12-19-2021 02:40-0400 Nursing Progress Note Reason Other: Pt ambulatory to bathroom and back to cart with a steady gait. Anthony Michelle [facility] 12-19-2021 02:40-0400 Respiratory rate 16 /min Anthony Michelle [facility] 12-19-2021 02:40-0400 SaO2% (BldA) [Mass fraction] 100 % Anthony Michelle [facility] 12-19-2021 02:40-0400 Systolic blood pressure 122 mm[Hg] Anthony Michelle [facility] 12-19-2021 01:53-0400 Body temperature 98.06 [degF] Anthony Michelle [facility] 12-19-2021 01:53-0400 Diastolic blood pressure 84 mm[Hg] Anthony Michelle [facility] 12-19-2021 01:53-0400 Heart rate 89 /min Anthony Michelle [facility] 12-19-2021 01:53-0400 Respiratory rate 16 /min Anthony Michelle [facility] 12-19-2021 01:53-0400 SaO2% (BldA) [Mass fraction] 100 % Anthony Michelle [facility] 12-19-2021 01:53-0400 Systolic blood pressure 149 mm[Hg] Anthony Martinez [facility] 11-01-2021 08:09-0400 Body temperature 98.42 [degF] Keanu Kamara [facility] 11-01-2021 08:09-0400 Diastolic blood pressure 90 mm[Hg] Keanu Kamara [facility] 11-01-2021 08:09-0400 Heart rate 94 /min Keanu Kamara [facility] 11-01-2021 08:09-0400 Respiratory rate 18 /min Keanu Kamara [facility] 11-01-2021 08:09-0400 SaO2% (BldA) [Mass fraction] 98 % Keanu Kamara [facility] 11-01-2021 08:09-0400 Systolic blood pressure 145 mm[Hg] Keanu Kamara [facility] 09-18-2021 09:59-0400 Body temperature 98.06 [degF] [facility] 09-18-2021 09:59-0400 Diastolic blood pressure 87 mm[Hg] [facility] 09-18-2021 09:59-0400 Heart rate 90 /min [facility] 09-18-2021 09:59-0400 Respiratory rate 16 /min [facility] 09-18-2021 09:59-0400 SaO2% (BldA) [Mass fraction] 100 % [facility] 09-18-2021 09:59-0400 Systolic blood pressure 136 mm[Hg] [facility] 04-28-2020 07:51-0500 Body Temperature 97.81 [degF] Chelsi Juza [facility] [place] 04-28-2020 07:51-0500 BP Diastolic 68 mm[Hg] [facility] [place] [place] 04-28-2020 07:51-0500 BP Systolic 121 mm[Hg] Chelsi Caballero [place] 04-28-2020 07:51-0500 Pulse (Heart Rate) 97 /min [facility] [place] [place] 04-28-2020 07:51-0500 Pulse Oximetry 97 % [facility] [place] 04-28-2020 07:51-0500 Respiratory Rate 18 /min Chelsi Caballero [place], [place] 04-25-2020 13:40-0500 BMI (Body Mass Index) 23.3 kg/m2 Chelsi Caballero [place] 04-25-2020 13:40-0500 Body weight 63.5 kg [facility] [place] [place] 04-25-2020 13:40-0500 Height 165.1 cm [facility] [place] Encounters Encounter Date Encounter Type Care Provider Facility Start: 01-11-2025 End: 01-11-2025 Office outpatient visit 15 minutes Marco A Jc DO Work Phone: [facility] Comment on above: Third trimester preg tuan ([facility]); 36 weeks gestation of ([facility]); Amniotic band syndrome; H/O pre-eclampsia in prior , currently ([facility]) Start: 01-11-2025 End: 01-11-2025 Bamboo flowsheet Marco [...] Comment on above: Third trimester preg tuan ([facility]); 35 weeks gestation of ([facility]) Start: 01-04-2025 End: 01-04-2025 ambulatory SIMONA CURRIE Not Available Start: 12-29-2024 End: 12-29-2024 Clinisync Result Encounter Marco A Jc DO Work Phone: [facility] External Department Unsolicited Start: 12-29-2024 End: 12-29-2024 Clinisync Result Encounter Marco A Jc DO Work Phone: [facility] External Department Unsolicited Start: 12-22-2024 End: 12-22-2024 Bamboo flowsheet Simona ROSS Work Phone: [facility] Start: 12-22-2024 End: 12-22-2024 Bamboo flowsheet Simona ROSS Work Phone: [facility] Start: 12-22-2024 End: 12-22-2024 Office outpatient visit 15 minutes Simona ROSS Work Phone: [facility] Comment on above: Third trimester preg tuan ([facility]); 33 weeks gestation of ([facility]); Amniotic band syndrome; History of miscarriage Start: 12-22-2024 End: 12-22-2024 ambulatory SIMONA CURRIE Not Available Start: 12-12-2024 End: 12-12-2024 ambulatory MARCO A JC Not Available Start: 12-08-2024 End: 12-08-2024 Office outpatient visit 15 minutes Marco A Jc DO Work Phone: [facility] Comment on above: Third trimester preg tuan ([facility]); 31 weeks gestation of ([facility]); Screening, , for anatomic survey ([facility]) Start: 12-08-2024 End: 12-08-2024 ambulatory MARCO A [...] incons istent with dates in second trimester ([facility]) (Primary Dx); Second trimester ([facility]); 28 weeks gestation of ([facility]); Mastitis Start: 11-22-2024 End: 11-22-2024 ambulatory MARCO [...] Comment on above: Second trimester pre gnancy ([facility]); 24 weeks gestation of ([facility]); HSV infection; H/O pre-eclampsia in prior , currently ([facility]); Diabetes mellitus screening; Encounter for anatomic survey ([facility]) Start: 10-25-2024 End: 10-25-2024 ambulatory SIMOAN CURRIE Not Available Start: 10-25-2024 End: 10-25-2024 Bamboo flowsheet Simona ROSS Work Phone: [facility] Start: 10-25-2024 End: 10-25-2024 Bamboo flowsheet Simona Rosey PA Work Phone: [facility] Start: 09-27-2024 End: 09-27-2024 flow sheet Marco A Jc DO Work Phone: [facility] Comment on above: Second trimester pre gnancy; 20 weeks gestation of ; Exposure to STD; History of miscarriage Start: 09-27-2024 End: 09-27-2024 ambulatory MARCO A JC Not Available Start: 09-27-2024 End: 09-27-2024 Bamboo flowsheet Marco A Jc DO Work Phone: [facility] Start: 09-27-2024 End: 09-29-2024 External Result Encounter Marco A Jc DO Work Phone: [facility] External Department Unsolicited Start: 09-27-2024 End: 09-29-2024 External Result Encounter Marco A Jc DO Work Phone: [facility] External Department Unsolicited Start: 08-29-2024 End: 08-29-2024 Bamboo flowsheet Marco A Jc DO Work Phone: [facility] Start: 08-29-2024 End: 08-29-2024 Bamboo flowsheet Marco A Jc DO Work Phone: [facility] Start: 08-29-2024 End: 08-29-2024 Office outpatient visit 15 minutes Marco A Jc DO Work Phone: [facility] Comment on above: History [...] Comment on above: as inciden neetu finding ([facility]) Start: 08-01-2024 End: 08-01-2024 Bamboo [...] 04-19-2024 Emergency department patient visit Amos Espinoza [facility] Start: 03-08-2024 End: 03-08-2024 Patient encounter procedure [...] 02-02-2023 End: 02-25-2023 Pre-admission assessment Zac Martinez [facility] Start: 11-10-2022 ambulatory KELL JOHNSON Faci lity:[facility] Jacobo Mark Start: 10-14-2022 End: 10-14-2022 Emergency department patient visit Nakul Cannon [facility] Start: 09-26-2022 ambulatory PCP UNKNOWN Facility:[facility] Jacobo Mark Start: 09-04-2022 End: 09-05-[address] MARCO A GREENE . Facility: Start: 08-14-2022 End: 08-15-[address] MARCO A GREENE . Facility: Start: 12-19-2021 End: 12-19-2021 Emergency department patient visit Anthony KapoorIrvin Martinez [facility] Start: 11-14-2021 End: 11-14-2021 Patient encounter procedure Grover Amaral OD Work Phone: Ophthalmology Comment on above: [facility] (epidemic kerato conjunctivitis) (Primary Dx) Start: 11-07-2021 End: 11-07-2021 Patient encounter procedure Grover Amaral OD Work Phone: Ophthalmology Comment on above: Viral conjunctivitis (Primary Dx) Start: 11-01-2021 End: 11-01-2021 Emergency department patient visit Keanu Kamara [facility] Start: 09-18-2021 End: 09-18-2021 Emergency department patient visit Amos Gaona Olga [facility] Start: 04-25-2020 End: 04-28-2020 Evaluation and [...] f 2) Zoster Vaccines (1 of 2) [facility] Start: 04-28-2030 DTaP/Tdap/Td Vaccine s (8 - Td or Tdap) DTaP/Tdap/Td Vaccines (8 - Td or Tdap) [facility] Start: 03-14-2025 End: 03-14-2025 Patient encounter procedure [facility] Start: 01-11-2025 End: 01-11-2025 Patient encounter procedure [facility] Comment on above: Arrived Start: 01-11-2025 End: 01-11-2026 CULTURE, GROUP B STREP WITH SUSCEPTIBLITY CULTURE, GROUP B STREP WITH SUSCEPTIBLITY Lab Routine Third trimester ([facility]) Expected: 01/11/2025, Expires: 01/11/2026 [facility] Work Phone: Comment on above: Expected: 01/11/2025 , Expires: 01/11/2026 Start: 01-04-2025 End: 01-04-2025 Patient encounter procedure LON BARRERA Comment on above: Arrived Start: 12-26-2024 Influenza vaccination Influenz a Vaccine (Season Ended) [facility] Start: 12-22-2024 End: 12-22-2024 Patient encounter [...] weeks anatomy scan Imaging Routine Third trimester ([facility]) 31 weeks gestation of ([facility]) Screening, , for anatomic survey ([facility]) Expected: 12/08/2024, Expires: 03/10/2025 [facility] Work Phone: Comment on above: Expected: 12/08/2024 , Expires: 03/10/2025 Start: 12-08-2024 End: 12-08-2024 Professional / ancillary services management 12/08/2024 11:00 AM EDT Ancillary Procedure LON BARRERA [address] [place] [address] [place] [id number] LON BARRERA Start: 11-22-2024 End: 03-25-2025 US for US OB follow up transabdominal approach Imaging Routine Size of fetus inconsistent with dates in second trimester ([facility]) Expected: 11/22/2024, Expires: 03/25/2025 [facility] Work [...] mellitus screening Expected: 10/25/2024 (Approximate), Expires: 10/25/2025 [facility] Comment on above: Expected: 10/25/2024 (Approximate), Expires: 10/25/2025 Start: 10-25-2024 End: 01-25-2025 US for US OB limited 1+ fetuses Imaging Routine Encounter for anatomic survey ([facility]) Expected: 10/25/2024 (Approximate), Expires: 01/25/2025 [facility] Comment on above: Expected: 10/25/2024 (Approximate), Expires: 01/25/2025 Start: 09-27-2024 End: 09-27-2024 Patient encounter procedure [facility] Comment on above: Arrived Start: 08-29-2024 End: 03-01-2025 Alpha fetoprotein, maternal Alpha fetoprotein, maternal Lab Routine Second trimester 16 weeks gestation of Expected: 08/29/2024 (Approximate), Expires: 03/01/2025 [facility] Work Phone: Comment on above: Expected: 08/29/2024 (Approximate), Expires: 03/01/2025 Start: 08-29-2024 End: 08-29-2024 Patient encounter procedure [facility] Comment on above: Arrived Start: 08-01-2024 End: 08-01-2024 Patient encounter procedure [facility] Comment on above: Arrived Start: 05-19-2024 End: 05-19-2024 Patient encounter procedure 05/19/2024 11:20 AM EST Office Visit [facility] [address] [place] [address] Marco A Greene, [address] [place], [place] [id number] Arrived [facility] Comment on above: Arrived Start: 12-27-2023 COVID-19 Vaccine ( season) COVID-19 Vaccine ( season) [facility] Start: 12-26-2021 Influenza vaccination INFLUENZA (#1) [facility] Start: 10-08-2020 PAP TESTING PAP TESTING [facility] Start: 10-08-2020 Screening for malign ant neoplasm of cervix [facility] Start: 10-08-2018 Urine microalbumin profile DTAP,TDAP,TD (1 - Tdap) [facility] Start: 10-08-2017 CHLAMYDIA SCREENING (18-24) CHLAMYDIA SCREENING (18-24) [facility] Start: 10-08-2017 GC (GONORRHEA) SCREENING (18-24) GC (GONORRHEA) SCREENING (18-24) [facility] Start: 10-08-2017 HEPATITIS C SCREENING HEPATITIS C [facility] Start: 10-08-2017 Hepatitis C screening Hepatitis C [facility] Start: 10-08-2017 HIV SCREENING HIV SCREENING [facility] Start: 10-08-2013 PEDS TO ADULT TRANSITION ANNUAL ASSESSMENT PEDS TO ADULT TRANSITION ANNUAL ASSESSMENT [facility] Start: 03-01-2012 Varicella vaccination Varicell a Vaccines (2 of 2 - 2-dose childhood series) [facility] Start: 2011 Adult depression screening assessment DEPRESSION SCREENING [facility] Start: 2011 PEDS TO ADULT TRANSITION INITIAL DISCUSSION PEDS TO ADULT TRANSITION INITIAL DISCUSSION [facility] Start: 10-08-2010 HPV VACCINE (1 - 2-d ose series) HPV VACCINE (1 - 2-dose series) [facility] Start: 04-09-2000 COVID-19 VACCINE (#1) COVID-19 VACCI NE (#1) [facility] Start: 1999 HIV screening HIV Screening [facility] Start: 1999 Lipid panel Lipid Panel [facility] Start: 1999 Yearly Adult Physical Yearly Adult P hysical [facility] CHLAMYDIA TRACHOMATI S (GENITO/STI) CHLAMYDIA TRACHOMATIS (GENITO/STI) Lab Routine Exposure to STD Ordered: 09/27/2024 [facility] Comment on above: Ordered: 09/27/2024 Cytology Cervical or vaginal smear or scraping study Pap Smear Pathology and Cytology Routine Well woman exam with routine gynecological exam Ordered: 03/08/2024 [facility] Work Phone: Comment on above: Ordered: 03/08/2024 Neisseria gonorrhoea e DNA [Presence] in Unspecified specimen by ARCHANA with probe detection Neisseria gonorrhea DNA probe, direct Lab Routine Exposure to STD Ordered: 09/27/2024 [facility] Comment on above: Ordered: 09/27/2024 Nonrebreather mask oxygen Nonrebreather mask oxygen Respiratory Care Routine As directed - RT (PRN) until discontinued starting 04/26/2020 [place], [place] Comment on above: As directed - RT (UT N) until discontinued starting 04/26/2020 Oxygen therapy [[facility]] Initiate Oxygen Therapy Protocol Respiratory Care Routine Daily until discontinued starting 04/26/2020 [place], [place] Comment on above: Daily until disconti nued starting 04/26/2020 Spirometry panel Incentive roger metry Respiratory Care Routine Every 2hr while awake until discontinued starting 04/26/2020 [place], [place] Comment on above: Every 2hr while awak e until discontinued starting 04/26/2020 SURESWAB(R) ADVANCED VAGINITIS PLUS, TMA SURESWAB(R) ADVANCED VAGINITIS PLUS, TMA Pathology and Cytology Routine Exposure to STD Ordered: 09/27/2024 [facility] Work Phone: Comment on above: Ordered: 09/27/2024 [facility] Immunizations Immunization Date Immunization Notes Care Provider Merry banda 04-28-2020 tetanus toxoid, redu paula diphtheria toxoid, and acellular pertussis vaccine, adsorbed [facility] [place] 04-27-2020 influenza, injectabl e, quadrivalent, preservative free [facility] [place] 04-27-2020 influenza virus vacc ine, unspecified formulation [id number] 1 [facility] Work Phone: 04-26-2020 influenza quadrivale nt split vaccine (FLUZONE;FLUARIX;FLULAVAL ;AFLURIA) injection 0.5 mL [facility] 04-26-2020 diphtheria, tetanus toxoids and acellular pertussis vaccine, unspecified formulation [facility] [place] 12-08-2011 varicella virus vaccine [id number] 1 [facility] Work Phone: Payers Date Payer Category Payer Medicaid [employer] [place] [id number] 2020-Present [phone] [address] [address] [place] [address] Medicaid [id number] 2020 Medicaid (Managed Care) 1.2. [id number] 2020 [employer] ( and others) [facility] [id number] 2020-Present [address] [place] [address] [id number]. [id number] 1999 Unknown [id number] 2.16.840.1.854135.3.579.2. 593 1999 Unknown [id number] 2.16.840.1.149620.3.579.2. 593 1999 Unknown [id number] 2.16.840.1.796663.3.579.2. 356 1999 Unknown [id number] 2.16.840.1.183611.3.579.2. 356 1999 Unknown [id number] 2.16.840.1.542886.3.579.2. 727 1999 Unknown [id number] 2.16.840.1.777619.3.579.2. 1258 1999 Unknown [id number] 2.16.840.1.717627.3.579.2. 1258 1999 Unknown [id number] 2.16.840.1.875891.3.579.2. 1258 1999 Unknown [id number] 2.16.840.1.913388.3.579.2. 1258 1999 Unknown [id number] 2.16.840.1.236735.3.579.2. 1258 1999 Unknown [id number] 2.16.840.1.781556.3.579.2. 1258 1999 Unknown [id number] 2.16.840.1.696893.3.579.2. 1258 1999 Unknown [id number] 2.16.840.1.863899.3.579.2. 1258 1999 Unknown [id number] 2.16.840.1.352808.3.579.2. 1258 1999 Unknown [id number] 2.16.840.1.382691.3.579.2. 1258 1999 Unknown [id number] 2.16.840.1.237977.3.579.2. 1258 1999 Unknown [id number] 2.16.840.1.005103.3.579.2. 1258 1999 Unknown [id number] 2.16.840.1.610559.3.579.2. 1258 1999 Unknown [id number] 2.16.840.1.986141.3.579.2. 9 1959 Unknown [id number] Social History Date Type Detail Facility Start: 04-28-2020 End: 10-26-2023 Tobacco smoking status NVIS Never smoker [facility] Start: 04-28-2020 End: 07-01-2024 Tobacco use and exposure Never used [facility] Start: 04-28-2020 End: 12-07-2024 Alcohol intake Ex-drinker (finding) [facility] Nii MCCONNELL Y Start: 2000 [facility]igned [facility] Start: 10-28-2021 End: 08-16-2024 Exposure to SARS-CoV-2 (event) Not sure [facility] MIRIAM Tobacco [facility] Comment on above: denies Start: 10-26-2023 End: 03-08-2024 Sex Assigned At Female [facility] Tobacco smoking status No Smoking Status Entered [facility] Start: 10-26-2023 End: 03-08-2024 History of Social function [facility] Start: 10-29-2022 Alcohol Comment caffeine: rarely [facility] Start: 1999 Sex assigned at Female [facility] Start: 10-19-2022 Gender identity Identifies as female gender (finding) [facility] Start: 05-18-2024 [facility] Tobacco smoking status NHIS Tobacco smoking consumption unknown [facility] Work Phone: Functional Status Date Assessment Result Facility 04-19-2024 Functional Status N/A [facility] 10-14-2022 Functional Status N/A [facility] 12-19-2021 Functional Status N/A [facility] 11-01-2021 Functional Status N/A [facility] Clinical Notes 04-28-2020 to 01-11-2025 Hillary Coreas [...] Problems Past Medical History: Diagnosis Date Pre-eclampsia ([facility]) HISTORY PAST MEDICAL HISTORY SOCIAL HISTORY Past [...] nursing note reviewed. Exam conducted with a edge stripper present. Vitals: Estimated body mass index is 30.8 kg/m as calculated from the following: Height as of 10/26/23: 5' 6 . Weight as of this encounter: 190 lb 12.8 oz. BP: 122/64 Patient's last menstrual period was 05/04/2024. ASSESSMENT & PLAN ICD-10-CM 1. Third trimester ([facility]) Z34.93 POCT urinalysis dipstick manually resulted CULTURE, GROUP B STREP WITH SUSCEPTIBLITY CULTURE, GROUP B STREP WITH SUSCEPTIBLITY 2. 36 weeks gestation of ([facility]) Z3A.36 POCT urinalysis dipstick manually resulted 3. Amniotic band syndrome Q79.8 4. H/O pre-eclampsia in prior , currently ([facility]) O09.299 Patient is doing well but has [...] A Greene DO documented in this encounter [facility] 01-04-2025 History of Presen t illness Narrative [...] Problems Past Medical History: Diagnosis Date Pre-eclampsia ([facility]) HISTORY PAST MEDICAL HISTORY SOCIAL HISTORY Past Medical History: Diagnosis Date Pre-eclampsia ([facility]) Social History Tobacco Use Smoking [...] nursing note reviewed. Exam conducted with a edge stripper present. Vitals: Estimated body mass index is 30.3 kg/m as calculated from the following: Height as of 10/26/23: 5' 6 . Weight as of this encounter: 187 lb 12 oz. BP: 126/62 Patient's last menstrual period was 05/04/2024. ASSESSMENT & PLAN ICD-10-CM 1. Third trimester ([facility]) Z34.93 POCT urinalysis dipstick manually resulted 2. 35 weeks gestation of ([facility]) Z3A.35 Return OB: Patient presents today [...] of: CODY Dumont documented in this encounter [facility] 12-22-2024 History of Presen t illness Narrative [...] Problems Past Medical History: Diagnosis Date Pre-eclampsia ([facility]) HISTORY PAST MEDICAL HISTORY SOCIAL HISTORY Past Medical History: Diagnosis Date Pre-eclampsia ([facility]) Social History Tobacco Use Smoking [...] ASSESSMENT & PLAN ICD-10-CM 1. Third trimester ([facility]) Z34.93 2. 33 weeks gestation of ([facility]) Z3A.33 3. Amniotic band syndrome Q79.8 US [...] of: CODY Dumont documented in this encounter [facility] 12-08-2024 History of Presen t illness Narrative [...] nursing note reviewed. Exam conducted with a edge stripper present. Vitals: Estimated body mass index is 29.58 kg/m as calculated from the following: Height as of 10/26/23: 5' 6 . Weight as of this encounter: 183 lb 4 oz. BP: 122/66 Patient's last menstrual period was 05/04/2024. ASSESSMENT & PLAN ICD-10-CM 1. Third trimester ([facility]) Z34.93 2. 31 weeks gestation of ([facility]) Z3A.31 Patient presents today for a routine obstetrics appointment. Patient is currently 31w1d with a Estimated Date of Delivery: 02/08/25. Patient desires to have tubal ligation at time of on 02/01/25. Patient to return to clinic in 2-3 weeks for routine OB care. Documented by Rose Costello LPN on behalf of: Marco A Greene DO documented in this encounter [facility] 11-22-2024 History of Presen t illness Narrative [...] Problems Past Medical History: Diagnosis Date Pre-eclampsia ([facility]) HISTORY PAST MEDICAL HISTORY SOCIAL HISTORY Past Medical History: Diagnosis Date Pre-eclampsia ([facility]) Social History Tobacco Use Smoking [...] fetus inconsistent with dates in second trimester ([facility]) O26.842 US OB follow up transabdominal approach 2. Second trimester ([facility]) Z34.92 POCT urinalysis dipstick manually resulted 3. 28 weeks gestation of ([facility]) Z3A.28 POCT urinalysis dipstick manually resulted Return [...] A Greene DO documented in this encounter [facility] 10-25-2024 History of Presen t illness Narrative [...] Problems Past Medical History: Diagnosis Date Pre-eclampsia ([facility]) HISTORY PAST MEDICAL HISTORY SOCIAL HISTORY Past Medical History: Diagnosis Date Pre-eclampsia ([facility]) Social History Tobacco Use Smoking status: Never [...] ASSESSMENT & PLAN ICD-10-CM 1. Second trimester ([facility]) Z34.92 POCT urinalysis dipstick manually resulted 2. 24 weeks gestation of ([facility]) Z3A.24 3. HSV infection B00.9 4. H/O pre-eclampsia in prior , currently ([facility]) O09.299 5. Diabetes mellitus screening Z13.1 CBC Glucose tolerance, 1 hour CBC Glucose tolerance, 1 hour 6. Encounter for anatomic survey ([facility]) Z36.89 US OB limited 1+ fetuses Return [...] day. Patient is not being seen at [facility] no longer. Simona Currie gave patient a Rpt Anatomy US to have obtained in our office /[facility] due to the spine not seen [...] of: CODY Dumont documented in this encounter [facility] 09-27-2024 History of Presen t illness Narrative [...] nursing note reviewed. Exam conducted with a edge stripper present. Vitals: Estimated body mass index is [...] Coreas LPN on behalf of: Marco A Gerene DO documented in this encounter [facility] 08-29-2024 History of Presen t illness Narrative [...] nursing note reviewed. Exam conducted with a edge stripper present. Vitals: Estimated body mass index is [...] A Greene DO documented in this encounter [facility] 08-01-2024 History of Presen t illness Narrative [...] nursing note reviewed. Exam conducted with a edge stripper present. Vitals: Estimated body mass index is [...] vyvanse 40mg daily. Will have referral to [facility]. She will begin progesterone at 16 weeks. Orders Placed This Encounter Procedures POCT urinalysis dipstick manually resulted Follow Up: Patient is to return to office in 4 week for routine OB appointment. Documented by Elvi Gerber NP on behalf of: Marco A Greene DO documented in this encounter [facility] 05-19-2024 History of Presen t illness Narrative [...] A Greene DO documented in this encounter [facility] 04-19-2024 Evaluation + Plan note Extrac nino from: Title:ED Note Author:Olga Davison, Amos De Oliveira te:04/19/24 1. Ear pain, right (H92.01: Otalgia, right ear) 2. Upper respiratory infection (J06.9: Acute upper respiratory infection, unspecified) [facility] 12-24-2024 Hospital Discharge instructions Patient Education 04/19/2024 [...] medicines to help relieve symptoms, such as: Poip-dts-jrtsnzh cold medicines. Cough suppressants. Coughing is a [...] and other clear broths. General instructions Take rlwp-rok-rrzfsvw and prescription medicines only as told by [...] and water are not available, use hand sider mechanic. Avoid touching your mouth, face, eyes, or [...] provider. Document Revised: 11/13/2021 Document Reviewed: 11/13/2021 [employer] Patient Education 2023 Case Rover. 04/19/2024 01:34:08 Earache, Adult Earache, Adult An [...] instructions at home: Medicines Take or apply mpsr-jdo-ldoiblt and prescription medicines only as told by [...] provider. Document Revised: 08/25/2022 Document Reviewed: 08/25/2022 [employer] Patient Education 2023 Case Rover. Follow Up Care 04/19/2024 01:06:30 With:Kathy Mccall Address: [address] [place] [address] [address], [facility] [address] [id number] [facility] (1) When:04/22/2024 Comments:Return to the emergency room if your pain recurs or any new symptoms. [facility] 12-24-2024 NoteED Patient Education Note ENT Earache, [...] at home: Medicines ??? Take or apply syeg-cei-ydunlar and prescription medicines only as told by [...] provider. Document Revised: 08/25/2022 Document Reviewed: 08/25/2022 Else[employer] Patient Education ? 2023 Case Rover. Infectious Disease Upper Respiratory Infection, Adult An [...] your health care provide (more content not included)...[facility]11-12-[facility] History of Present illness Narrative* Hillary Coreas, CHANNEL OPENER - 03/08/2024 3:00 PM EST Reason for [...] nursing note reviewed. Exam conducted with a edge stripper present. Vitals: Estimated body mass index is [...] Marco A Greene DO [id number] Hospital Discharge instructions Patient Education 10/14/2022 13:55:20 Sutures, Azalia, or Adhesive Wound Closure, Jaib-zw-Zebh Sutures, Newcomb, or Adhesive Wound Closure Doctors use stitches [...] ?Hold the edges of the wound together. ?[place] the glue onto your skin. You may [...] this with as many azalia as needed. Newcomb are faster to use than sutures, and they cause less reaction from your skin. Newcomb need to be taken out using a tool that bends the azalia away from your skin. Follow these instructions at home: Medicines Take umio-aoz-swwceiv and prescription medicines only as told by [...] cannot use soap and water, use hand sider mechanic. Do not try to take off or [...] provider. Document Revised: 08/19/2021 Document Reviewed: 08/19/2021 [employer] Patient Education 2022 Case Rover. Follow Up Care 10/14/2022 12:20:41 With:Baljit Watts Address: [place], [place] [place] [address]- Business (1) When:10/17/2022 13:48:24 [facility]08-25-2022 Evaluation + Plan noteExtracted from: Title:ED Note [...] eGFR PT & PTT [facility]08-25-2022 Hospital Discharge instructions Patient Education 12/19/2021 04:06:21 Dysfunctional Uterine Bleeding Dysfunctional Uterine Bleeding Dysfunctional uterine bleeding is abnormal bleeding from the uterus. Dysfunctional uterine bleedingincludes: A menstrual period that comes earlier or later than usual. A menstrual period that is title one kindergarten teacher or heavier than usual, or has large [...] to keep your urine pale yellow. ?Take ayrp-wlf-megbpsa or prescription medicines. ?Eat foods that are high in fiber, such as beans, whole grains, and fresh fruits and vegetables. ?Limit foods that are high in fat and processed sugars, such as fried or sweet foods. Medicines Take igml-tfz-fkkjjqz and prescription medicines only as told by [...] 04/10/2001 Document Revised: 09/22/2018 Document Reviewed: 09/22/2018 [employer] Patient Education 2019 [employer] Follow Up Care 12/19/2021 01:46:43 With:Zac Martinez Address: Ted [place] [address] [address] Business (1) When:12/22/2021 [facility]07-21-2022 NoteHNO ID: [id number] Author: Grover Amaral, DIXON Service: ? Author Type: FARMWORK[employer]LTRY Type: Progress Notes Filed: 11/14/2021 2:32 PM [...] Grover Amaral, OD November 14, 2021 2:29 [facility]07[facility]20[facility] History of Present illness Narrative* Grover Amaral, [...] 14, 2021 2:29 PM [facility] NoteHNO ID: [id number] Author: Grover Amaral OD Service: ? Author Type: FARMWORK[employer] Type: Progress Notes Filed: 11/07/2021 4:03 PM [...] Grover Amaral OD November 07, 2021 4:03 [facility]07-14-2022 Miscellaneous Notes* Addendum Note - Grover Amaral OD - 11/07/2021 4:06 PM EDT Addended by: GROVER AMARAL on: 11/07/2021 04:06 PM Modules accepted: [facility] History of Present illness Narrative* [...] 07, 2021 4:03 PM [facility] Evaluation + Plan note Extracted from: Title:ED Note Author:Keanu Kamara DO Date: Allergic reaction (T78.40XA: Allergy, unspecified, initial encounter) Orders: predniSONE, 60 mg = 3 tab(s), Oral, Daily, X 5 day(s), # 15 tab(s), Refills(s) 0, Pharmacy: [facility]/pharmacy #[id number], 165, cm, 11/01/21 8:11:00 EDT, Height/Length Dosing, 63, kg, 11/01/21 8:11:00 EDT, Weight Dosing [facility]07-08-2022 Hospital Discharge instructions Patient Education 11/01/2021 [...] care provider who specializes in treating allergies (university archivist) or eye conditions (tailor women's garment alteration) for tests to confirm the diagnosis. You [...] Eye drops. These may be prescription or vqnj-fqb-ghqxyaf. There are several different types. You may [...] known allergens whenever possible. Take or apply swte-fbc-ktqwjbs and prescription medicines only as told by [...] 07/04/2003 Document Revised: 03/26/2018 Document Reviewed: 10/24/2016 [employer] Patient Education [employer]. Follow Up Care 11/01/2021 08:05:40 With:Johanna Huynh Address: [address] [address]- Business (1) When:11/04/2021 08:24:58 Comments:Call today to arrange for follow-up appointment on Thursday or Thursday. Return to the ED with new or worsening symptoms as discussed. With:Baljit Watts Address: [address] [place] [address]- Business (1) When:11/04/2021 08:24:46 Comments:Call the office [...] new or worsening symptoms. [facility]05-25-2022 Hospital Discharge instructions Patient Education 09/18/2021 [...] may be recommended to support your foot. Nhrp-hlg-qkmscux anti-inflammatory medicines may also be recommended for [...] sitting or lying down. General instructions Take bjoo-lhz-afnldfs and prescription medicines only as told by [...] 02/02/2007 Document Revised: 12/14/2018 Document Reviewed: 12/14/2018 [employer] Patient Education 2020 [employer]. Follow Up Care 09/18/2021 09:48:23 With:Baljit Link Address: [address] [place] [address]- Business (1) When:09/21/2021 11:47:11 Comments:Return to the emergency room if your pain gets worse or any new symptom [facility]05-25-2022 Evaluation + Plan noteExtracted from: Title:ED Note Author:Olga Davison, Amos De Oliveira te:09/18/21 1. Contusion of left foot (S 90.32XA: Contusion of left foot, initial encounter) Orders: Post-op Shoe XR Foot 3+ Views Left [facility]01-02-2021 NoteDepartment of Obstetrics and Gynecology Delivery Discharge Summary Admission on 04/25/2020 1:08 PM Reason for admission: 04/25/2020 Intrapartum Course: N/A 30w6d PC- Indications for Delivery: Was patient delivered between 37w0d - 26o1ultnhn? NO Surgical Operations & Procedures: Date of delivery: 04/26/2020 Delivery Type: without labor Anesthesia: Spinal anesthesia Laceration(s): n/a Delivery Complications: none EBL: 700 cc Pertinent Findings & Procedures: Information for the patient's : Ree Herrera [[id number]] female Weight: 2 lb 12.3 oz (1.256 kg) Apgars: Information for the patient's : Ree Herrera [[id number]] One Minute : 6 Five Minute : 7 Course: Magnesium sulfate and Procardia for PEWSF Infant: Female Blood Type/Rh: O POS Antibody Screen: Antibody Screen Date Value Ref Range Status 04/25/2020 NEG NA Final Rubella: No results found for: RUBELLAIGG Contraception: will be discussed with her provider at [place] : no VTE Prophylaxis: Not Indicated Meds: Anand Herrera Home Medication Instructions RANDA:[id number] Printed on:04/28/20 1238 Medication Information ferrous sulfate [...] in [address] Wray in [place]. Condition on discharge: Stable Discharge to: Home [...] know - She will follow with her VETERINARY LABORATORY DIAGNOSTICIAN in [place] - I will call Dr. 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 [facility] [place] [facility]* Diagnosis Well woman exam with routine gynecological exam Routine gynecological examination [facility]* Diagnosis control counseling documented in this encounter [facility]* Diagnosis 12 weeks gestation of First trimester state, incidental Amniotic band syndrome Other problem associated with amniotic cavity and membranes, unspecified as to episode of care [facility]* Diagnosis as incidental finding ([facility]) documented in this encounter [facility] Work Phone: Evaluation note* Diagnosis History of miscarriage- Primary Personal history of other genital system and obstetric disorders Second trimester state, incidental 16 weeks gestation of STD exposure Vaginal discharge Leukorrhea, not specified as infective documented in this encounter [facility]* Diagnosis Second trimester state, incidental 20 weeks gestation of Exposure to STD History of miscarriage Personal history of other genital system and obstetric disorders documented in this encounter [facility]* Diagnosis Second trimester ([facility]) state, incidental 24 weeks gestation of ([facility]) HSV infection Herpes simplex without mention of complication H/O pre-eclampsia in prior , currently ([facility]) Diabetes mellitus screening Screening for diabetes mellitus Encounter for anatomic survey ([facility]) Encounter for anatomic survey [facility]* Diagnosis Size of fetus inconsistent with dates in second trimester ([facility])- Primary Second trimester ([facility]) state, incidental 28 weeks gestation of ([facility]) Mastitis Inflammatory disease of breast [facility]* Diagnosis Third trimester ([facility]) state, incidental 31 weeks gestation of ([facility]) Screening, , for anatomic survey ([facility]) Encounter for anatomic survey documented [facility]* Diagnosis Third trimester ([facility]) state, incidental 33 weeks gestation of ([facility]) Amniotic band syndrome Other problem associated [...] ([facility]) state, incidental 36 weeks gestation of ([facility]) Amniotic band syndrome Other problem associated with amniotic cavity and membranes, unspecified as to episode of care H/O pre-eclampsia in prior , currently ([facility]) documented in this encounter [facility] course Narrative No data available for this section [facility] No data available for this section [facility] No data available for this section [facility] N[facility]* Imaging (Routine) - Pending Review Specialty Diagnoses / Procedures Referred By Joseph hoff Referred To Contact Radiology Diagnoses as incidental finding ([facility]) Procedures US OB limited 1+ fetuses US MAC OB imaging order Marco A Greene DO [address] [facility] [address], [place] [address] Phone: tel: fax: Referral ID Status Reason Start Date Expiration Date Visits Requested Visits Authorized [id number] Pending Review Perform Procedure 08/03/2024 08/03/2025 1 1 [facility] Work Phone: Summary Purpose Family History [...] Delivery: Was patient delivered between 37w0d - 81h5nkuzuc? NO Surgical Operations & Procedures: Date of delivery: 04/26/2020 Delivery Type: without labor Anesthesia: Spinal anesthesia Laceration(s): n/a Delivery Complications: none EBL: 700 cc Pertinent Findings & Procedures: Information for the patient's : Ree Herrera [[id number]] female Weight: 2 lb 12.3 oz (1.256 kg) Apgars: Information for the patient's : Ree Herrera [[id number]] One Minute : 6 Five Minute : 7 Course: Magnesium sulfate and Procardia for PEWSF Infant: Female infant Blood Type/Rh: O POS Antibody Screen: Antibody Screen Date Value Ref Range Status 04/25/2020 NEG NA Final Rubella: No results found for: RUBELLAIGG Contraception: will be discussed with her provider at [place] : no VTE Prophylaxis: Not Indicated Meds: Anand Herrera Home Medication Instructions RANDA:[id number] Printed on:04/28/20 7196 Medication Information ferrous sulfate (IRON 325) 325 [...] in [address] Wray in [place]. Condition on discharge: Stable Discharge to: Home [...] know - She will follow with her VETERINARY LABORATORY DIAGNOSTICIAN in [place] - I will call Dr. Wray answering service at [phone] to update him with her condition, medications, [...] allowing us to care of you at [facility]. This time can be one [...] over the next few weeks. Bleeding may picker box operator and then decrease again around 7-10 days [...] avoid constipation you may take a mild hlxg-waj-leqigud stool softener (such as colace) as recommended [...] clean your hands with an alcohol-based hand sider mechanic that contains at least 60% alcohol. Clean your hands often Wash your hands often with soap and water for at least 20 seconds, especially after blowing your nose, coughing, or sneezing; going to the bathroom; and before eating or preparing food. If soap and water are not readily available, use an alcohol-based hand sider mechanic with at least 60% alcohol, covering all [...] isolation precautions should be made on a hivp-ii-zpdl basis, in consultation with healthcare providers and [...] respiratory tract signs and symptoms. Ways to [place] with Anxiety & Stress It is normal [...] an illness that was first found in [facility], in March 2019. It has since [...] seen in people before. This virus spreads drzpdw-zi-idbeto through droplets from coughing and sneezing. It [...] water aren't available, use an alcohol-based hand sider mechanic. Call 911 anytime you think you may [...] of: July 27, 2019 Content Version: . [employer]. Care instructions adapted under license by your healthcare professional. If you have questions about a medical condition or this instruction, always ask your healthcare professional. [employer] disclaims any warranty or liability for your use of this information. General Recommendations for Routine Cleaning and Disinfection of Households Community members can practice routine cleaning of frequently touched surfaces (for example: tables, doorknobs, light switches, handles, desks, toilets, faucets, sinks) with household passenger car cleaning supervisor and EPA-registered disinfectants that are appropriate for [...] appropriate. These supplies include tissues, paper towels, passenger car cleaning supervisor and EPA-registered disinfectants (see list link at [...] be used for other purposes. Consult the manager cable's instructions for cleaning and disinfection products used. [...] used if appropriate for the surface. Follow manager cable's instructions for application and proper ventilation. Check [...] o Products with EPA-approved emerging viral pathogens [facility] iconexternal icon are expected to be effective against COVID-19 based on data for harder to kill viruses. Follow the manager cable's instructions for all cleaning and disinfection products (e.g., concentration, application method and contact time, etc.). Soft (porous) surfaces such as carpeted floor, rugs, and drapes Remove visible contamination if present and clean with appropriate passenger car cleaning supervisor indicated for use on these surfaces. After cleaning: Launder items as appropriate in accordance with the manager cable's instructions. If possible, launder items using the [...] items as appropriate in accordance with the manager cable's instructions. If possible, launder items using the warmest appropriate water setting for the items and dry items completely. Dirtylaundry from an ill person can be washed with other people's items. o Clean and disinfect clothes hampers according to guidance above for surfaces. If possible, consider placing a baggage smasher that is either disposable (can be thrown away) or can be laundered. CDC has a list of EPA approved cleaning products on their website - https://www.cdc.gov/coronavirus/ 2019-ncov/community/home/cleaning-disinfection.html https://www.Picwing.com/Amkuc-Txrftqymqdt-Xyidnoin-Products-List.pdf [employer] Stores with delivery and picker box operator services: [facility] [facility]: Free picker box operator at locations Delivery is $12.95 a month Website - [employer] [place]: University Archivist $2.95 (1st order is free) Delivery is $14.95 Website - [employer] [place]: supervisor curing room is free Delivery is $5.95 [employer]: supervisor curing room is $4.95 Delivery is $9.95 Website [employer]: supervisor curing room is $4.95 Delivery is $9.95 Website [employer]: Can be ordered for delivery and picker box operator with [employer] Website - [employer]: Free deliver for first 3 orders of $35 or more Website [employer] Will deliver from [facility], [employer], [employer], and [...] 2. PreEwSF - severe range Bps at [facility], acutely treated with 5mg IV labetalol, 100mg [...] know - She will follow with her VETERINARY LABORATORY DIAGNOSTICIAN in [place] - I will call Dr. Wray answering service at [phone] to update him with her condition, medications, [...] MD - 04/25/2020 11:32 PM EST MFM labor economics professor physician tracing review from earlier admission with [...] concern for concealed abruption. I did not educational guidance counselor the patient directly of the [...] [facility] more moderate than minimal. Patient arjeev q10-15 minutes but comfortable. No vaginal bleeding [...] section and content) DATE CREATED AUTHOR 04/18/2020 [facility] DATE CREATED AUTHOR AUTHOR'S ORGANIZ ATION 02/28/2021 [facility] DATE CREATED AUTHOR AUTHOR'S ORGANIZ ATION 11/16/2021 [facility] DATE CREATED AUTHOR AUTHOR'S ORGANIZ ATION 09/10/2022 [facility] DATE CREATED AUTHOR AUTHOR'S ORGANIZ ATION 11/13/2022 [facility] DATE CREATED AUTHOR AUTHOR'S ORGANIZ ATION 04/22/2024 [facility] DATE CREATED AUTHOR AUTHOR'S ORGANIZ ATION 01/06/2025 [facility] d[facility] Specialists EPIC Reason for [...] Care Team (unrecognized sect ion and content) Legal Secretary Receptionist Relationship Specialty Start Date End Date Baljit Watts MD [address] [place] [address] PCP - General Family Practice 11/07/21 Legal Secretary Receptionist Relationship Specialty Start Date End Date Baljit Watts MD [address] [place] [place] [address] PCP - General Family Practice 11/07/21 Legal Secretary Receptionist Relationship Specialty Start Date End Date LinkaBljit MD [address] [place] [address] PCP - General Family Medicine 10/20/22 Legal Secretary Receptionist Relationship Specialty Start Date End Date LinkBaljit MD [address] [place] [address] PCP - General Family Medicine 10/20/22 Legal Secretary Receptionist Relationship Specialty Start Date End Date LinkBaljit MD [address] [place] [id number] PCP - General Family Medicine 10/20/22 Legal Secretary Receptionist Relationship Specialty Start Date End Date LinkBaljit MD [address] [place] [address] PCP - General Family Medicine 10/20/22 Legal Secretary Receptionist Relationship Specialty Start Date End Date LinkBaljit MD PCP - General Family Medicine 10/20/22 Legal Secretary Receptionist Relationship Specialty Start Date End Date Link, MD Baljit PCP - General Family Medicine 10/20/22 Legal Secretary Receptionist Relationship Specialty Start Date End Date Link, MD Baljit PCP - General Family Medicine 10/20/22 Legal Secretary Receptionist Relationship Specialty Start Date End Date Link, MD Balijt PCP - General Family Medicine 10/20/22 Legal Secretary Receptionist Relationship Specialty Start Date End Date Link, MD Baljit PCP - General Family Medicine 10/20/22 Legal Secretary Receptionist Relationship Specialty Start Date End Date Link, MD Baljit PCP - General Family Medicine 10/20/22 Legal Secretary Receptionist Relationship Specialty Start Date End Date Link, MD Baljit PCP - General Family Medicine 10/20/22 Legal Secretary Receptionist Relationship Specialty Start Date End Date Link, MD Baljit PCP - General Family Medicine 10/20/22 Legal Secretary Receptionist Relationship Specialty Start Date End Date Link, MD Baljit PCP - General Family Medicine 10/20/22 Legal Secretary Receptionist Relationship Specialty Start Date End Date Link, MD Baljit PCP - General Family Medicine 10/20/22 Legal Secretary Receptionist Relationship Specialty Start Date End Date Link, MD Baljit PCP - General Family Medicine 10/20/22 Legal Secretary Receptionist Relationship Specialty Start Date End Date Mac MD Baljit PCP - General Family Medicine 10/20/22 Source Comments (unrecognize d section and content) In the event this informatio n is protected by the [facility] Confidentiality of Alcohol and Drug Abuse Patient Records regulations: The Federal rules restrict any use of the information to criminally investigate or prosecute any alcohol or drug abuse patient.[facility] the event this information is protected by the Federal Confidentiality of Alcohol and Drug Abuse Patient Records regulations: The Federal rules restrict any use of the information to criminally investigate or prosecute any alcohol or drug abuse patient.[facility] FOR RECORDS PERTAINING TO PATIENTS [...] BE BASED ON THE PRIMARY CLINICAL RECORDS. [employer] [facility]. provides no warranty or guarantee of the accuracy or completeness of information in this document.
[2025-01-12 17:25] VITALS: BP 108/56; PULSE 83
[2025-01-12] MEDS: BETAMETHASONE ACE/BETAMETHASONE SOD PHOS 30 MG/5 ML 12 MG IM (17:34)
== END 2025-01-12 17:53 | disposition home or self-care (01) ==
LOC: US 16:52 → FBC 16:55
PROVIDERS: Visit Provider Obstetrics & Gynecology
DX: O09.893 Supervision of other high risk pregnancies, third trimester (principal); Z3A.36 36 weeks gestation of pregnancy
CPT/HCPCS: 76818; 96372; J0702

== ENCOUNTER 2025-01-13 09:32 | Observation (INO) | payer OTHER, SELFPAY ==
--- OUTSIDE RECORDS SUMMARY | 2025-01-13 09:39 | XMS_ITS | CCD ---
Author Organization [facility] Care Team Providers Care Ticket Scheduler Name Role Phone Unavailable Primary Care Provider [...] Unavailable JC ., DR ROSEN Attending Unavailable MEMPHISKELL Attending Unavailable Jc, Dr. Marco A Zavaleta Referring Unavail able UNKNOWN, PCP Primary Care Unavailable UNKNOWN, PCP Primary Care Unavailable Jc, Dr. Marco A Zavaleta Referring Unavail able Dr. Jess Feldman Attending Unav ailable Baljit Watts MD Primary Care Provider Kathy Mccall Primary Care Physician [phone] Amos Espinoza Attending Unavailable Baljit Watts MD Primary Care Provider Unavailable Primary Care Provider Unavailjoão e MARCO A GREENE Attending Unavailable JCMARCO A Attending Unavailable JCMARCO A COCHRAN Attending Unavailable MARCO A GREENE Attending Unavailable SIMONA CURRIE Attending Unavailable MARCO A GREENE Attending Unavailable MARCO A GREENE Attending Unavailable SIMONA CURRIE Attending Unavailable SIMONA CURRIE Attending Unavailable MARCO A GREENE Attending Unavailable MARCO A GREENE Attending Unavailable Medications Current Medications Medication Drug Class(es) Dates Sig (Normalized) Sig (Original) acetaminophen 325 mg oral tablet (1 source) Start: 04-26-2020 take 650 mg by mouth every six hours as needed for pain, then take 4000 mg by mouth every twenty-four hours as needed for pain 650 mg, Oral, EVERY 6 HOURS PRN, Pain Mild (1-3), Starting [facility] 04/26/20 at 0421 Maximum dose of acetaminophen is 4000 mg from all sources in 24 hours. amoxicillin 875 mg oral tablet (6 sources) Penicillin-class Antibacterial Start: 10-14-2022 End: 10-24-2022 take 1 tablet by mouth twice daily amoxicillin 875 mg Tab 875 mg = 1 tab(s), Oral, BID, X 10 day(s), # 20 tab(s), Refills(s) 0, Pharmacy: [facility]/pharmacy #[id number], 164, cm, 10/14/22 12:30:00 EDT, Height/Length Dosing, 66, kg, 10/14/22 12:30:00 EDT, Weight Dosing Start Date: 10/14/22 Stop Date: 10/24/22 Status: Ordered Start: 10-31-2021 take 1 capsule by [facility] every twelve hours amoxicillin 500 mg Cap 500 mg = 1 cap(s), Oral, q12hr, # 20 cap(s), Refills(s) 0, Pharmacy: [facility]/pharmacy #[id number], 165, cm, 10/31/21 12:19:00 EDT, [...] Start: 04-01-2020 take 1 capsule by mo [facility] once daily in the morning Vyvanse 60 [...] tablet 3 04/29/2020 Active Start: 04-26-2020 NIFEdipine (ID OCARDIA XL) extended release tablet 30 mg [...] Date: 01/31/23 Status: Ordered polyethylene glycol 3350 45873 mg powder for oral solution (1 source) [...] mouth daily 30 tablet 0 04/28/2020 Active pdu19-ffhp-hbapo acid (PreNata) 29 mg iron- 1 mg tablet,chewable (1 source) xeh90-hqgq-sfczw acid (PreNata) 29 mg iron- 1 mg [...] (2 times per day), First dose on Thu04/26/20 at 0900, Start: 04-26-2020 take 10 mL [...] for 10 day(s), 20 tab(s), Refill(s) 0, [id number], 165, cm, 10/31/21 12:19:00 EDT, Height/Length [...] day(s), # 15 tab(s), Refills(s) 0, Pharmacy: [facility]/pharmacy #[id number], 165, cm, 11/01/21 8:11:00 EDT, [...] Value Interpretation Reference Range Facility US OB BPP W NON-STRESS on 01-13-2025 [place] [address] Ultrasound Report Signed Patient: ANAND HERRERA MR#: [id number] : 2000 Acct:[id number] Age/Sex: 24 / F ADM Date: 01/12/25 Loc: US Attending Dr: Marco A Greene D.O. Ordering Physician: Marco A Greene D.O. Date of Service: 01/12/25 Procedure(s): US OB BPP w non-stress Accession Number(s): [id number] cc: Marco A Greene D.O.; Physician,Non-Staff [place] [facility] [place] [address] Patient Name: ANAND HERRERA MRN: [facility]:[id number] date: 2000 Sex: F Assigned Patient Location: [facility] Current Patient Location: Accession/Order Number: [id number] Exam Date: 01/12/2025 17:07 Report Date: 01/13/2025 08:14 At the request of: MARCO A GREENE DO Procedure: US OB BPP w non-stress BIOPHYSICAL PROFILE: CLINICAL INFORMATION: HX AMNIOTIC BAND SYNDROME COMPARISON: 12/29/2024 There is a single live intrauterine gestation in cephalic presentation. The reported gestational age is 36 weeks 1 day. The heart rate measures 125 beats per minute. FINDINGS: TONE: 1 or more episodes of activity extension and flexion of extremity or opening and closing of the hand [Y] 2/2 GROSS BODY MOVEMENTS: 3 or more discrete body or limb movements [Y] 2/2 BREATHING MOVEMENTS: 1 or more episodes of breathing lasting at least 30 seconds [Y] 2/2 EDITH: A single deepest vertical pocket of amniotic fluid greater than 2 cm [Y] 2/2 EDITH: 17.2 cm Total score: 8/8 US/US OB BPP w non-stress IMPRESSION: NORMAL BIOPHYSICAL PROFILE Impression dictated by: Hillary Barth M.D. 01/13/2025 8:14 AM Dictation Location[facility] Electronically authenticated by: [id number] Y Date: 01/13/2025 08:14 Dictated By: Hillary Barth M.D. Signed By: 01/13/25816 DD/ 3 TD/TT: Plant Ecologist: [facility] Radiology, Radiologist, - 01/13/2025 [place] [address] Ultrasound Report Signed Patient: ANAND HERRERA MR#: [id number] : 2000 Acct:[id number] Age/Sex: 24 / F ADM Date: 01/12/25 Loc: US Attending Dr: Marco A Greene D.O. Ordering Physician: Marco A Greene D.O. Date of Service: 01/12/25 Procedure(s): US OB BPP w non-stress Accession Number(s): [id number] cc: Marco A Greene D.O.; Physician,Non-Staff [place] [address] Patient Name: ANAND HERRERA MRN: [facility]:[id number] date: 2000 Sex: F Assigned Patient Location: [facility] Current Patient Location: Accession/Order Number: [id number] Exam Date: 01/12/2025 17:07 Report Date: 01/13/2025 08:14 At the request of: MARCO A GREENE DO Procedure: US OB BPP w non-stress BIOPHYSICAL PROFILE: CLINICAL INFORMATION: HX AMNIOTIC BAND SYNDROME COMPARISON: 12/29/2024 There is a single live intrauterine gestation in cephalic presentation. The reported gestational age is 36 weeks 1 day. The heart rate measures 125 beats per minute. FINDINGS: TONE: 1 or more episodes of activity extension and flexion of extremity or opening and closing of the hand [Y] 2/2 GROSS BODY MOVEMENTS: 3 or more discrete body or limb movements [Y] 2/2 BREATHING MOVEMENTS: 1 or more episodes of breathing lasting at least 30 seconds [Y] 2/2 EDITH: A single deepest vertical pocket of amniotic fluid greater than 2 cm [Y] 2/2 EDITH: 17.2 cm Total score: 8/8 US/US OB BPP w non-stress IMPRESSION: NORMAL BIOPHYSICAL PROFILE Impression dictated by: Hillary Barth M.D. 01/13/2025 8:14 AM Dictation Location: [place] [address] Electronically authenticated by: [id number] Y Date: 01/13/2025 08:14 Dictated By: Hillary Barth M.D. Signed By: 01/13/25816 DD/ 3 TD/TT: Plant Ecologist: [facility] Radiology Study observation (narrative) [facility] US OB BPP W NON-STRESS Ordered By: Radiologist Radiology on 01-13-2025 [facility] Work Phone: Urinalysis macro (dipstick) panel (U)on 01-11-2025 Bilirubin, UA Negative Negative - 4(70) +++ mg/dL [facility] Blood, UA Positive Negative - 50 Gabriel/mcL [facility] Clarity, UA Clear [facility] Color, UA Yellow [facility] Glucose, UA Negative Negative - 2000(110) ++++ mg/dL [facility] Interpretation and review of laboratory results Abnormal [facility] Ketones, UA Negative Negative - 160(16) ++++ mg/dL [facility] Leukocytes, UA Positive Negative - 500+++ Sebastián/mcL [facility] Nitrite, UA Negative Negative - Positive [facility] pH, UA 7 5 - 9 [facility] Protein, UA Negative Negative - 2000(20) ++++ mg/dL [facility] Spec Grav, UA 1.005 1 - 1.03 [facility] Urobilinogen, UA 1.0 0.2 - 12 mg/dL [facility] Urinalysis macro (dipstick) panel (U)on 01-04-2025 Bilirubin, UA Negative Negative - 4(70) +++ mg/dL [facility] Blood, UA Positive Negative - 50 Gabriel/mcL [facility] Comment on above: 1+ Clarity, UA Clear [facility] Color, UA Yellow [facility] Glucose, UA Negative Negative - 1999(110) ++++ mg/dL [facility] Interpretation and review of laboratory results Abnormal [facility] Ketones, UA Negative Negative - 160(16) ++++ mg/dL [facility] Leukocytes, UA Negative Negative - 500+++ Sebastián/mcL [facility] Nitrite, UA Negative Negative - Positive [facility] pH, UA 7.5 5 - 9 [facility] Protein, UA Negative Negative - 1999(20) ++++ mg/dL [facility] Spec Grav, UA 1.005 1 - 1.03 [facility] Urobilinogen, UA 0.2 0.2 - 12 mg/dL [facility] US OB BPP W NON-STRESS on 12-29-[address] [address] Ultrasound Report Signed Patient: ANAND HERRERA MR#: [id number] : 2000 Acct:[id number] Age/Sex: 24 / F ADM Date: 12/29/24 Loc: US Attending Dr: Marco A Greene D.O. Ordering Physician: Marco A Greene D.O. Date of Service: 12/29/24 Procedure(s): US OB BPP w non-stress Accession Number(s): [id number] cc: Marco A Greene D.O.; Physician,Non-Staff Lane[place] The [address] [address] Patient Name: ANAND HERRERA MRN: [facility]:[id number] date: 2000 Sex: F Assigned Patient Location: [facility] Current Patient Location: Accession/Order Number: [id number] Exam Date: 12/29/2024 17:15 Report Date: 12/29/2024 [...] Bo M.D. 12/29/2024 7:37 PM Dictation Location[facility] Electronically authenticated by: [id number] Y Date: 12/29/2024 19:37 Dictated By: [place] Bo D.O. Signed By: 12/29/241939 DD/ 36 TD/TT: Plant Ecologist: [facility] Radiology, Radiologist, - 12/29/[address] [place] [address] Ultrasound Report Signed Patient: ANAND HERRERA MR#: [id number] : 2000 Acct:[id number] Age/Sex: 24 / F ADM Date: 12/29/24 Loc: US Attending Dr: Marco A Greene D.O. Ordering Physician: Marco A Greene D.O. Date of Service: 12/29/24 Procedure(s): US OB BPP w non-stress Accession Number(s): [id number] cc: Marco A Greene D.O.; Physician,Non-Staff [place] [address] [address] Patient Name: ANAND HERRERA MRN: [id number] date: 2000 Sex: F Assigned Patient Location: [facility] Current Patient Location: Accession/Order Number: [id number] Exam Date: 12/29/2024 17:15 Report Date: 12/29/2024 [...] Bo M.D. 12/29/2024 7:37 PM Dictation Location: [place] [address] Electronically authenticated by: [id number] Y Date: 12/29/2024 19:37 Dictated By: Charles Bo D.O. Signed By: 12/29/241939 DD/ 36 TD/TT: Plant Ecologist: [facility] Radiology Study observation (narrative) [facility] US OB BPP W NON-STRESS Ordered By: Radiologist Radiology on 12-29-2024 [facility] Work Phone: US OB 14+ WEEKS ANATOMY [...] II, MD, PHD at 15-Dec-2024 08:04:22 AM [place] [employer] Normal Not Available Comment on above: Order [...] UA Negative Negative - 4(70) +++ mg/dL [facility] Blood, UA Negative Negative - 50 Gabriel/mcL [facility] Clarity, UA Clear [facility] Color, UA Yellow [facility] Glucose, UA Negative Negative - 1999(110) ++++ mg/dL [facility] Interpretation and review of laboratory results Normal [facility] Ketones, UA Negative Negative - 160(16) ++++ mg/dL [facility] Leukocytes, UA Negative Negative - 500+++ Sebastián/mcL [facility] Nitrite, UA Negative Negative - Positive [facility] pH, UA 6.5 5 - 9 [facility] Protein, UA Negative Negative - 1999(20) ++++ mg/dL [facility] Spec Grav, UA 1.005 1 - 1.03 [facility] Urobilinogen, UA 1.0 0.2 - 12 mg/dL [facility] US OB INCOMPLETE ANATOMYon 0 10-31-2024 [place] [address] Ultrasound Report Signed Patient: ANAND HERRERA MR#: [id number] : 2000 Acct:[id number] Age/Sex: 24 / F ADM Date: 10/31/24 Loc: US Attending Dr: Simona Currie Ordering Physician: Simona Currie Date of Service: 10/31/24 Procedure(s): US OB incomplete anatomy Accession Number(s): [id number] cc: Simona Currie; Physician,Non-Staff M.DIrvin [place] [address] Patient Name: ANAND HERRERA MRN: [facility]:[id number] date: 2000 Sex: F Assigned Patient Location: US Current Patient Location: US Accession/Order Number: [id number] Exam Date: 10/31/2024 09:53 Report Date: 10/31/2024 [...] normal. The spine was surveyed by the truck crane operator helper and no abnormalities were reported. US/US OB incomplete anatomy IMPRESSION: UNREMARKABLE SPINE ASSESSMENT. Impression dictated by: Hillary Barth M.D. 10/31/2024 9:54 AM Dictation Location: [place] [address] Electronically authenticated by: [id number] Y Date: 10/31/2024 09:54 Dictated By: Hillary Barth M.D. Signed By: 10/31/24 0957 DD/ TD/TT: Plant Ecologist: [facility] Radiology, Radiologist, MD - 10/31/[address] [address] Ultrasound Report Signed Patient: ANAND HERRERA MR#: [id number] : 2000 Acct:[id number] Age/Sex: 24 / F ADM Date: 10/31/24 Loc: US Attending Dr: Simona Currie Ordering Physician: Simona Currie Date of Service: 10/31/24 Procedure(s): US OB incomplete anatomy Accession Number(s): [id number] cc: Simona Currie; Physician,Non-Staff M.DIrvin The [address] [address] Patient Name: ANAND HERRERA MRN: [id number] date: 2000 Sex: F Assigned Patient Location: US Current Patient Location: US Accession/Order Number: [id number] Exam Date: 10/31/2024 09:53 Report Date: 10/31/2024 [...] normal. The spine was surveyed by the truck crane operator helper and no abnormalities were reported. US/US OB incomplete anatomy IMPRESSION: UNREMARKABLE SPINE ASSESSMENT. Impression dictated by: Hillary Barth M.D. 10/31/2024 9:54 AM Dictation Location: [place] [address] Electronically authenticated by: [id number] Y Date: 10/31/2024 09:54 Dictated By: Hillary Barth M.D. Signed By: 10/31/24 0957 DD/ TD/TT: Plant Ecologist: [facility] Radiology Study observation (narrative) [facility] US OB INCOMPLETE ANATOMYOrde red By: Radiologist Radiology on 10-31-2024 [facility] Work Phone: Urinalysis macro (dipstick) panel (U)on 10-25-2024 Bilirubin, UA Negative Negative - 4(70) +++ mg/dL [facility] Blood, UA Negative Negative - 50 Gabriel/mcL [facility] Clarity, UA Clear [facility] Color, UA Yellow [facility] Glucose, UA Negative Negative - 1999(110) ++++ mg/dL [facility] Interpretation and review of laboratory results Normal [facility] Ketones, UA Negative Negative - 160(16) ++++ mg/dL [facility] Leukocytes, UA Negative Negative - 500+++ Sebastián/mcL [facility] Nitrite, UA Negative Negative - Positive [facility] pH, UA 6.5 5 - 9 [facility] Protein, UA Negative Negative - 1999(20) ++++ mg/dL [facility] Spec Grav, UA 1.02 1 - 1.03 [facility] Urobilinogen, UA 0.2 0.2 - 12 mg/dL [facility] RECURRENT VAGINITIS (HTRX)on 09-29-2024 ATOPOBIUM VAGINAE 0 [facility] ATOPOBIUM VAGINAE Not detected [facility] BVAB 2,3 (BACTERIAL VAGINOSIS ASSOCIATED BACTERIA 2, 3); MOBILUNCUS SPP 0 [facility] BVAB 2,3 (BACTERIAL VAGINOSIS ASSOCIATED BACTERIA 2, 3); MOBILUNCUS SPP Not detected [facility] EBONIE ALBICANS, PARAPSILOSIS, TROPICALIS 27.336 Abnormal [facility] EBONIE ALBICANS, PARAPSILOSIS, TROPICALIS Detected Abnormal [facility] EBONIE GLABRATA 0 [facility] EBONIE GLABRATA Not detected [facility] EBONIE KRUSEI 0 [facility] EBONIE KRUSEI Not detected [facility] CHLAMYDIA TRACHOMATIS 0 [facility] CHLAMYDIA TRACHOMATIS Not detected N [facility] GARDNERELLA VAGINALIS 0 [facility] GARDNERELLA VAGINALIS Not detected N [facility] Interpretation and review of laboratory results Abnormal [facility] MEGASPHAERA (TYPES 1, 2) 0 [facility] MEGASPHAERA (TYPES 1, 2) Not detected [facility] MYCOPLASMA GENITALIUM 0 [facility] MYCOPLASMA GENITALIUM Not detected N [facility] NEISSERIA GONORRHOEAE 0 [facility] NEISSERIA GONORRHOEAE Not detected N [facility] TRICHOMONAS VAGINALIS 0 [facility] TRICHOMONAS VAGINALIS Not detected N [facility] Urinalysis macro (dipstick) panel (U)on 09-27-2024 Bilirubin, UA Negative Negative - 4(70) +++ mg/dL [facility] Blood, UA Negative Negative - 50 Gabriel/mcL [facility] Clarity, UA Clear [facility] Color, UA Yellow [facility] Glucose, UA Negative Negative - 1999(110) ++++ mg/dL [facility] Interpretation and review of laboratory results Normal [facility] Ketones, UA Negative Negative - 160(16) ++++ mg/dL [facility] Leukocytes, UA Negative Negative - 500+++ Sebastián/mcL [facility] Nitrite, UA Negative Negative - Positive [facility] pH, UA 7 5 - 9 [facility] Protein, UA Negative Negative - 2000(20) ++++ mg/dL [facility] Spec Grav, UA 1.015 1 - 1.03 [facility] Urobilinogen, UA 0.2 0.2 - 12 mg/dL [facility] US for pregnancyon Interpreted by: Doretha Marie [...] EFW (oz) 4 oz EFW by: Hadlock (WCC-UK-MD-FL) Head / Face / Neck Cephalic index 0.71 <1% Nicolaides Extremities / Bony Struc FL / BPD 0.54 14% Hadlock FL / HC 0.14 5% Hadlock FL / AC 0.16 1% Hadlock Other Structures FHR 150 bpm Anatomy Heart: Normal Grady and Situs. Stomach: Visible, with correct situs. Arms: Both Upper Extremities Seen. Legs: Both Lower Extremities Seen. The following structures appear normal: Cranium. Head size. Head shape. Brain. Right choroid plexus. Left choroid plexus. Midline falx. Thalami. Cerebellum. Face. Profile. Cardiac axis. 4-chamber view. 9-zidxns-zaftfjh view. Thorax. Diaphragm. Abdominal wall. Cord insertion. [...] Suspect Anomaly History ====== General History Smoking:No Xmcmqn070 cm Height (ft)5 ft Height (in)6 in Previous Outcomes Gravida3 Para2 Children born living ?37w1 Pregnancies delivered at term (T)1 Pregnancies delivered (P)1 Living children (L)2 Children born living <37w1 Other:Previous Section x2 Maternal Assessment Zrzxji648 cm Height (ft)5 ft Height (in)6 in Tzhvoi63 kg Weight (lb)155 lb Weight gain0 kg Weight gain (lb)0 lb BMI25.02 kg/m Physical Exam Initial weight (lb)155 lb ========= Prakash . Number of fetuses: 1 Dating ====== Prior assessment by:per outside ultrasound GA by prior vhyfoptuci21 w + 6 d OTF by prior [...] 24% Hadlock HC / AC1.19 31% Hadlock OHA384 g14w 4d 35% Hadlock EFW (lb)0 lb EFW (oz)4 oz EFW by:Hadlock (CYR-VS-EX-FL) Head / Face / Neck Cephalic index0.71 <1% Nicolaides Extremities / Bony Struc FL / BPD0.54 14% Hadlock FL / HC0.14 5% Hadlock FL / AC0.16 1% Hadlock Other Structures HUS826 bpm Anatomy Heart: Normal Grady and Situs. Stomach: Visible, with correct situs. Arms: Both Upper Extremities Seen. Legs: Both Lower Extremities Seen. The following structures appear normal: Cranium. Head size. Head shape. Brain. Right choroid plexus. Left choroid plexus. Midline falx. Thalami. Cerebellum. Face. Profile. Cardiac axis. 4-chamber view. 1-hqilck-qetnjlk view. Thorax. Diaphragm. Abdominal wall. Cord insertion. [...] limited by early gestational age [facility] Work Phone: Source Facility: [facility] Interpreted by: Doretha Marie Indication [...] Hadlock Cerebellum tr 13.0 mm 15w 1d Gallito AC 90.6 mm 15w 2d 68% Hadlock Femur 14.7 mm 14w 2d 24% Hadlock HC / AC 1.19 31% Hadlock EFW 108 g 14w 4d 35% Hadlock EFW (lb) 0 lb EFW (oz) 4 oz EFW by: Hadlock (ETS-LZ-ZP-FL) Head / Face / Neck Cephalic index 0.71 <1% Nicolaides Extremities / Bony Struc FL / BPD 0.54 14% Hadlock FL / HC 0.14 5% Hadlock FL / AC 0.16 1% Hadlock Other Structures FHR 150 bpm Anatomy Heart: Normal Grady and Situs. Stomach: Visible, with correct situs. Arms: Both Upper Extremities Seen. Legs: Both Lower Extremities Seen. The following structures appear normal: Cranium. Head size. Head shape. Brain. Right choroid plexus. Left choroid plexus. Midline falx. Thalami. Cerebellum. Face. Profile. Cardiac axis. 4-chamber view. 1-tzvhrd-htnrhpy view. Thorax. Diaphragm. Abdominal wall. Cord insertion. [...] age Radiology, Radiologist, - 08/16/2024 Source Facility: [facility] Interpreted by: Doretha Marie Indication [...] EFW (oz) 4 oz EFW by: Hadlock (UKQ-IT-TR-FL) Head / Face / Neck Cephalic index 0.71 <1% Nicolaides Extremities / Bony Struc FL / BPD 0.54 14% Hadlock FL / HC 0.14 5% Hadlock FL / AC 0.16 1% Hadlock Other Structures FHR 150 bpm Anatomy Heart: Normal Grady and Situs. Stomach: Visible, with correct situs. Arms: Both Upper Extremities Seen. Legs: Both Lower Extremities Seen. The following structures appear normal: Cranium. Head size. Head shape. Brain. Right choroid plexus. Left choroid plexus. Midline falx. Thalami. Cerebellum. Face. Profile. Cardiac axis. 4-chamber view. 6-fgfjyc-jlxlcgv view. Thorax. Diaphragm. Abdominal wall. Cord insertion. [...] Suboptimal view: limited by early gestational age [facility] Radiology Study observation (narrative) [facility] Work Phone: Radiology Study observation (narrative) [facility] US for pregnancyOrdered By: Doretha Marie on 08-16-2024 [facility] Work Phone: US for pregnancyOrdered By: Radiologist Radiology on 08-16-2024 [facility] Work Phone: Urinalysis macro (dipstick) panel (U)on 08-01-2024 Bilirubin, UA Negative Negative - 4(70) +++ mg/dL [facility] Blood, UA Negative Negative - 50 Gabriel/mcL [facility] Clarity, UA Clear [facility] Color, UA Yellow [facility] Glucose, UA Negative Negative - 2000(110) ++++ mg/dL [facility] Interpretation and review of laboratory results Normal [facility] Ketones, UA Negative Negative - 160(16) ++++ mg/dL [facility] Leukocytes, UA Negative Negative - 500+++ Sebastián/mcL [facility] Nitrite, UA Negative Negative - Positive [facility] pH, UA 7 5 - 9 [facility] Protein, UA Negative Negative - 2000(20) ++++ mg/dL [facility] Spec Grav, UA 1.02 1 - 1.03 [facility] Urobilinogen, UA 0.2 0.2 - 12 mg/dL [facility] BOX TESTon 07-07-2024 BOX TEST SENT OUT [facility] BOX1 [facility] BOX2 07/07/24 [facility] BOX CLINISYNC [facility] US OB TRANSVAGINALon 025 US OB [...] II, MD, PHD at 02-Jul-2024 09:14:34 AM [facility] [place] [facility] Normal Not Available Comment on above: Order Comment: US OB TRANSVAGINAL No LMP recorded. ED Clinical Summaryon 2023 ED Clinical Summary ED Clinical Summary [place] [address] ED Clinical Summary Person Information Name: ANAND HERRERA [facility] Age: 23 Years : 2000 Sex: Female Language: Tuvaluan PCP: Kathy Mccall DO Marital Status: Single Phone: [phone] Visit Id: Visit Reason: Ear pain; RIGHT [...] 04/19/2024 01:34:08 04/19/2024 01:34:08 04/19/2024 01:34:08 ADDRESS: [address] [place] [id number] PHYS DOC NOTES: MEDICAL INFORMATION: Prescriptions Given: [...] up: With: Address: When: Kathy Montenegro, Chauncey C, [address] [place] [address] Business (1) In 3 days 04/22/2024 Comments: Return to the emergency room if your pain recurs or any new symptoms. DIAGNOSIS: 1:Ear pain, right; 2:Upper respiratory infection Normal [facility] ED Note-Physicianon 04-19-20 ED Note-Physician ED Note-Physician Basic Information Time Seen: Olga DavisonAmos 04/19/2024 01:08 Chief Complaint pt to ED [...] and Complexity of Problems Differential Diagnosis: [] [facility] Data External documents reviewed: [] My [...] home. She was instructed to take decongestion [id number]. 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 Living situation: Home/Independent. Alcohol abuse in household: No. Substance abuse in household: No. Smoker in household: No., (more content not included)... Normal [facility] Comment on above: Result Comment: Elec tronically Signed By: Amos Espinoza M.D.\.br\Date and Time Signed: 04/19/24 03:09 EST ED Patient Summaryon 024 ED Patient Summary ED Patient Summary [place] [id number] Patient Discharge Instructions Person Information Name: ANAND HERRERA Age: 23 Years Arrival Date: 04/19/2024 01:04:22 Discharge Diagnosis: 1:Ear pain, right; 2:Upper respiratory infection Primary Care Physician: Kathy Mccall DO Provider Information Primary Provider: Amos Espinoza M.D. Advanced Inspector Rough Castings:None The exam and treatment you received in the Emergency Department were for an urgent problem and are not intended as complete care. It is important that you follow up with a doctor, nurse practitioner, or physician???s stores assistant for ongoing care. If your symptoms become worse or you do not improve as expected and you are unable to reach your usual health care provider, you should return to the Emergency Department. We are available 24 hours a day. ANAND HERRERA has been given the following list of patient education materials, prescriptions and follow-up instructions: Follow-up Instructions: With: Address: When: [address]an[address], [address], [address] [place] [address] Business (1) In 3 days 04/22/2024 Comments: [...] opioids can be used to help relieve cfsrkysi-bt-gbrtke pain and are often prescribed following a [...] (more content not included)... Normal [facility] IGP,APTIMA HPV,AGE GDLNon AGE GDLN ACOG TESTING Note . [facility] Comment on above: TESTS RESULT FLAG UN ITS REF RANGE LAB Clinician Provided Cytology Information Source.............Cervix;Endocervix No. of containers..01 ThinPrep Vial Age Algo ACOG Magdalene... FLAG LEGEND: L-Low Normal,H-High Normal,LL-Alert Low,HH-Alert High <-Panic Low,>-Panic High,A-Abnormal,AA-Critical Abnormal Performed at: 01 =[facility] [address] [place] [address] Clara Castro MD, IGP, RFX APTIMA HPV ASCU Note . [facility] Comment on above: TESTS RESULT FLAG UN ITS REF RANGE LAB DIAGNOSIS: 02 NEGATIVE FOR INTRAEPITHELIAL LESION OR MALIGNANCY. Specimen adequacy: 02 Satisfactory for evaluation. Endocervical and/or squamous metaplastic cells (endocervical component) are present. Performed by: India Platt, Elementary Librarian ([facility]) . 02 Note: Note 02 The Pap smear is a screening test designed to aid in the detection of premalignant and malignant conditions of the uterine cervix. It is not a diagnostic procedure and should not be used as the sole means of detecting cervical cancer. Both false-positive and false-negative reports do occur. Test Methodology: Note 02 The Drivable(R) Counter Installer was unable to read this specimen. Therefore a manual review was performed. FLAG LEGEND: L-Low Normal,H-High Normal,LL-Alert Low,HH-Alert High <-Panic Low,>-Panic High,A-Abnormal,AA-Critical Abnormal Performed at: [address] [address] Clara Castro MD, . 02 The HPV DNA reflex criteria were not met with this specimen result therefore, no HPV testing was performed. The HPV DNA reflex criteria were not met with this specimen result therefore, no HPV testing was performed. Performed at: =[address] [id number] Keycase Assembler: Clara Castro MD, Phone: [phone] Performed at: [address] [id number] Keycase Assembler: Clara Castro MD, Phone: [phone] BRUSH-SPATULA CERVIX ENDOCERVIX [facility] Completed scan + Detailed Anatomyon 11-10-2022 [...] EFW (oz) 10 oz EFW by: Hadlock ([id number]) Extended Accounts Receivable Associate 7.6 mm CM 4.4 mm 35% Nicolaides [...] Normal LVOT view: Normal 3-vessel view: Normal 6-ckvxhi-fexrhki view: Normal Heart / Thorax Situs: situs [...] know sex (more content not included)... Normal [facility] OB NT (Nuchal Translucency)o n [...] gestational sac with a live fetus - [place] rump length is consistent with given OTF [...] Extended Nasal bone: present Anatomy Heart: Normal Grady and Situs. Stomach: Visible, with correct situs. [...] Electronically signed by: JESS FELDMAN MD Normal [facility] HEP B SURFACE ANTIGEN SCREEN on 09-05-2022 HBsAg Screen Negative Normal Negative [facility] Comment on above: Performed By: #### H BSANS #### Laboratory [address] [place] [address] Dr. Stoney Rodriguez HEPATITIS C VIRUS AB W/ REFL EX QUANTon 09-05-2022 HCV AB Non-Reactive Normal Non Reactive [facility] Comment on above: Performed By: #### H CVPCRR #### Laboratory [address] [place] [address] Dr. Stoney Rodriguez Interpretation: Comment Normal [facility] Comment on above: Result Comment: Not infected with HCV unless early or acute infection is suspected (which may be delayed in an immunocompromised individual), or other evidence exists to indicate HCV infection. Performed By: #### H CVPCRR #### Laboratory [address] [place] [address] Dr. Stoney Rodriguez HIV 1 AND 2 WITH REFLEXon HIV Screen 4th Generation wRfx Non-Reactive Normal Non Reactive [facility] Comment on above: Result Comment: HIV Negative HIV-1/HIV-2 antibodies and HIV-1 p24 antigen were NOT detected. There is no laboratory evidence of HIV infection. Performed By: #### T NS #### Laboratory [address] [place] [address] Dr. Stoney Rodriguez RPR QUANTon 09-05-2022 Rapid Plasma Reagin, Quant Non-Reactive Normal NonRea<1:1 [facility] Comment on above: Result Comment: Plea Note: This test does not meet current guidelines for screening and diagnosis of syphilis. This test is intended for following treatment response in patients being treated for syphilis infection. To screen for syphilis infection, a reflex cascade that includes both RPR and a treponema-specific assay should be utilized, such as Treponema pallidum (Syphilis) Screening [place] (225485) or Rapid Plasma Reagin (RPR) Test With Reflex to Quantitative RPR and Confirmatory Treponema pallidum Antibodies (917970). Performed By: #### R PRQ #### Laboratory [address] [place] [address] Dr. Stoney Rodriguez RUBELLA AB IGGon 09-05-2022 Rubella Antibodies, IgG 11.40 index Normal Immune >0.99 [facility] Comment on above: Result Comment: Non- immune <0.90 Equivocal 0.90 - 0.99 Immune >0.99 Performed By: #### R UBIGG #### Laboratory [address] [place] [address] Dr. Stoney Rodriguez BOX TEST SENT OUTon 09-05-19 SENT TO REF LAB 09/04/22 Normal [facility] Comment on above: Performed By: #### B OX #### Laboratory [address] [place] [address] Dr. Stoney Rodriguez CBC AUTO DIFFon 09-04-2022 BASO # 0.0 103/ul Normal 0.0-0.1 [facility] Comment on above: Performed By: #### C BC #### Laboratory [address] [place] [address] Dr. Stoney Rodriguez Basophils/100 WBC (Bld) 0.4 % Normal 0.2-2.0 [facility] Comment on above: Performed By: #### C BC #### Laboratory [address] [place] [address] Dr. Stoney Rodriguez EO # 0.1 103/ul Normal 0.0-0.7 [facility] Comment on above: Performed By: #### C BC #### Laboratory [address] [place] [address] Dr. Stoney Rodriguez Eosinophils/100 WBC (Bld) 0.7 % Critically low 0.9-7.0 [facility] Comment on above: Performed By: #### C BC #### Laboratory [address] [place] [address] Dr. Stoney Rodriguez Erythrocyte distribution width (RBC) [Ratio] 14.5 % Normal 11.0-15.0 [facility] Comment on above: Performed By: #### C BC #### Laboratory [address] [place] [address] Dr. Stoney Rodriguez Hematocrit (Bld) [Volume fraction] 36.7 % Normal 36.0-48.0 [facility] Comment on above: Performed By: #### C BC #### Laboratory [address] [place] [address] Dr. Stoney Rodriguez Hemoglobin (Bld) [Mass/Vol] 11.9 g/dL Critically low 12.0-16.0 [facility] Comment on above: Performed By: #### C BC #### Laboratory [address] [place] [address] Dr. Stoney Rodriguez IG # 0.03 10e3/ul Normal 0.00-0.03 [facility] Comment on above: Performed By: #### C BC #### Laboratory [address] [place] [address] Dr. Stoney Rodriguez IG % 0.4 % Normal 0.0-0.5 [facility] Comment on above: Performed By: #### C BC #### Laboratory [address] [place] [address] Dr. Stoney Rodriguez LYMPH # 2.0 103/ul Normal 1.2-3.8 [facility] Comment on above: Performed By: #### C BC #### Laboratory [address] [place] [address] Dr. Stoney Rodriguez Lymphocytes/100 WBC (Bld) 23.3 % Normal 20.5-60.0 [facility] Comment on above: Performed By: #### C BC #### Laboratory [address] [place] [address] Dr. Stoney Rodriguez MANUAL DIFF REQ NO Normal [facility] Comment on above: Performed By: #### C BC #### Laboratory [address] [place] [address] Dr. Stoney Rodriguez MCH (RBC) [Entitic mass] 28.7 pg Normal 26.7-34.0 [facility] Comment on above: Performed By: #### C BC #### Laboratory [address] [place] [address] Dr. Stoney Rodriguez MCHC (RBC) [Mass/Vol] 32.4 g/dL Normal 29.9-35.2 [facility] Comment on above: Performed By: #### C BC #### Laboratory [address] [place] [address] Dr. Stoney Rodriguez MCV (RBC) [Entitic vol] 88.6 fL Normal 81.0-99.0 [facility] Comment on above: Performed By: #### C BC #### Laboratory [address] [place] [address] Dr. Stoney Rodriguez MONO # 0.5 103/ul Normal 0.3-0.8 [facility] Comment on above: Performed By: #### C BC #### Laboratory [address] [place] [address] Dr. Stoney Rodriguez Monocytes/100 WBC (Bld) 6.2 % Normal 1.7-12.0 [facility] Comment on above: Performed By: #### C BC #### Laboratory [address] [place] [address] Dr. Stoney Rodriguez NEUT # 5.9 103/ul Normal 1.4-6.5 The Comment on above: Performed By: #### C BC #### Laboratory [address] [place] [address] Dr. Stoney Rodriguez Neutrophils/100 WBC (Bld) 69.0 % Normal 43.0-75.0 The Comment on above: Performed By: #### C BC #### Laboratory [address] [address] [address] Stoney Rodriguez Platelet mean volume (Bld) [Entitic vol] 9.7 fL Normal 9.5-13.5 [facility] Comment on above: Performed By: #### C BC #### Laboratory [address] [place] [address] [address] Stoney Rodriguez PLT 378 103/ul Normal 150-450 [facility] Comment on above: Performed By: #### C BC #### Laboratory [address] [place] [address] [address] Stoney Rodriguez RBC 4.14 106/ul Critically low 4.20-5.40 [facility] Comment on above: Performed By: #### C BC #### Laboratory [address] [place] [address] [address] Stoney Rodriguez WBC 8.5 103/ul Normal 4.0-11.0 [facility] Comment on above: Performed By: #### C BC #### Laboratory [address] [address] [address] Stoney Rodriguez CULTURE URINEon 09-04-2022 CULTURE URINE Culture Observations : NO GROWTH. Normal [facility] Comment on above: Performed By: #### U RCX #### Laboratory [address] [place] [address] [address] Stoney Rodriguez GLYCOHEMOGLOBIN A1Con 2022 ADA RECOMMENDATION SEE BELOW Normal [facility] Comment on above: Result Comment: ADA RECOMMENDED LIMIT 4.0 - 6.0 ADA THERAPEUTIC TARGET < 7.0 ACTION SUGGESTED > 7.0 Performed By: #### A 1C #### Laboratory [address] [address] [address] Stoney Rodriguez Glucose [Mass/Vol] 94 mg/dL Normal [facility] Comment on above: Performed By: #### A 1C #### Laboratory [address] [place] [address] Dr. Stoney Rodriguez HbA1c (Bld) [Mass fraction] 4.9 % Normal 4.5-6.2 The Comment on above: Performed By: #### A 1C #### Laboratory [address] [address] [address] Stoney Rodriguez TSHon 09-04-2022 TSH 0.653 uIU/mL Normal 0.358-3.740 [facility] Comment on above: Performed By: #### T SH #### Laboratory [address] [address] [address] Stoney Rodriguez TYPE AND SCREENon 09-04-2022 TYPE AND SCREEN Negative Normal [facility] Comment on above: Performed By: #### T NS #### Laboratory [address] [address] [address] Stoney Rodriguez US PREG TVon 08-14-2022 [...] BILLIE SMITH Date: 2022-08-14 16:07 Normal The CHEMISTRYOrdered By: Ida Mcfarland on 12-19-2021 Anion [...] ratio] 20 mg/mg Normal 10 - 20 [facility] Remisol CHEMISTRYOrdered By: SYSTEM SYSTEM on 12-19-2021 GFR/1.73 sq M.predicted among blacks MDRD (S/P/Bld) [Vol rate/Area] mL/min/1.73 m2 Normal >=59mL/min/1 .73 m2 [facility] Chem S GFR/1.73 sq M.predicted among non-blacks MDRD (S/P/Bld) [Vol rate/Area] mL/min/1.73 m2 Normal >=59mL/min/1 .73 m2 [facility] Chem S COAGULATIONOrdered By: Randall Mcfarland on 12-19-2021 aPTT Coag (PPP) [Time] 30.1 s Normal 25.1 - 36.5 second(s) [facility] Auto Coag INR Coag (PPP) [Relative time] 0.9 {INR} Invalid Interpretation Code [facility] Auto Coag PT Coag (PPP) [Time] 9.9 s Normal 9.4 - 1 2.5 second(s) [facility] Auto Coag HEMATOLOGYOrdered By: SYSTEM SYSTEM on 12-19-2021 Basophils/100 WBC (Bld) 0.5 % Normal 0.0 - 2.0 % [facility] HemeAutoSS Basophils/Leukocytes Auto (Bld) [Pure # fraction] 0.0 E9/L Normal 0.0 - 0.2 E9/L [facility] HemeAutoSS Eosinophils/100 WBC (Bld) 1.2 % Normal 0.0 - 8.0 % [facility] HemeAutoSS Eosinophils/Leukocytes Auto (Bld) [Pure # fraction] 0.1 E9/L Normal 0.0 - 0.5 E9/L [facility] HemeAutoSS Lymphocytes/100 WBC (Bld) 36.3 % Normal [...] hCG Ql Negative (12/19/21 2:12 AM) Normal [facility] Man Sero CULTURE URINEon 04-28-2020 CULTURE URINE [...] <= 1 S Amikacin(JAI) 4 S Normal [facility] Comment on above: Performed By: #### C /UR ####[facility] [place] [address] [place], [place] [id number] Culture, Urineon 04-28-2020 Bacteria identified Cx Nom (U) 10,000-50,000 CFU/ml [facility] [place], [place] Bacteria identified Cx Nom (U) Normal urogenital praneeth present. Abnormal [facility], [place] Bacteria identified Cx Nom (U) Escherichia coli Abnormal [place], [place] Interpretation and review of laboratory results Abnormal [place] Test Performed by [facility], [address] [place] [address] [place], [place] Hemoglobinon 04-27-2020 Hemoglobin (Bld) [Mass/Vol] 7.1 g/dL Low 11.7-16.0 [facility] Comment on above: Performed By: #### H EMGB #### [facility] [address] [place] [address] Hemoglobin (Bld) [Mass/Vol] 7.1 g/dL Low 11.7 - 16 g/dL [place], [place] Interpretation and review of laboratory results Abnormal [place], [place] Test Performed by [facility], [address] [place] [id number] [place] [address] Group B Strep Screen PCRon Group B [...] Methodology - Real Time PCR (Cepheid) Normal [facility] Comment on above: Performed By: #### G BSPC ####[facility] [place] [address] Group B Strep, PCRon 020 Group B Strep Screen PCR NEGATIVE Expected Result: Negative CDC guidelines for prevention of Group B Strep disease recommends collection of both vaginal and rectal specimens for optimal recovery of GBS. Methodology - Real Time PCR (Cepheid) [place], [place] Test Performed by [facility], [address] [place] [id number] [place] [address] Op Noteon 04-26-2020 Op Note PATIENT: ANAND [...] She also did have a TAP block. Autocad Designer: Dr. Benjamin. Replacement: 1500 cc of crystalloid. [...] 1500 cc of crystalloid. Diskriter Job ID: [id number] Zac Chowdhury MD DOD:04/26/2020 07:56 A JAKUB/kimmy DOT:04/26/2020 10:55 A Job Number: [id number] Document Number: [id number] cc: [place] [address] [place] [address]. [facility] [address] Fariha Matos, [facility] [place] [facility] [address] [facility] [address] [facility] C. Trachomatis / N. Gonorrho eae, DNA Probeon 04-25-2020 C. trachomatis DNA ARCHANA+probe Ql (Genital specimen) NOT Detected Chlamydia trachomatis Nucleic Acid NOT Detected by DNA Amplification using the beStylish.comid System. Culture is the only recommended test in medical-legal cases such as suspected child abuse or molestation. [place], [place] N. gonorrhoeae DNA ARCHANA+probe Ql (Unsp spec) NOT Detected Neisseria gonorrhoeae Nucleic Acid NOT Detected by DNA Amplification using the CepResident Giftsid System. Culture is the only recommended test in medical-legal cases such as suspected child abuse or molestation. [place], [place] Test Performed by [facility], [address] [place] [id number] [place], [place] CBCon 04-25-2020 Erythrocyte distribution width (RBC) [Ratio] 18.2 % High 11.5 - 14.5 % [place] Hematocrit (Bld) [Volume fraction] 30.6 % Low 35 - 47 % [place] Hemoglobin (Bld) [Mass/Vol] 9.7 g/dL Low 11.7 - 16 g/dL [place] Interpretation and review of laboratory results Abnormal [place] MCH (RBC) [Entitic mass] 26.2 pg 26 - 34 pg [place] MCHC (RBC) [Mass/Vol] 31.9 % Low 32 - 36 % [place], [place] MCV (RBC) [Entitic vol] 82.2 fL 79 - 98 fL [place] Platelet mean volume (Bld) [Entitic vol] 8.1 fL 7.4 - 10.4 fL [place] Platelets (Bld) [#/Vol] 249 10*3/uL 140 - 440 10*3/uL [place] RBC (Bld) [#/Vol] 3.72 10*6/uL Low 3.8 - 5.2 10*6/uL [place] WBC (Bld) [#/Vol] 13.3 10*3/uL High 3.6 - 10.7 10*3/uL [place] Test Performed by [facility], [address] [place] [address] [place] CREATININE, RANDOM URINEon Creatinine (U) [Mass/Vol] 66.8 mg/dL No Range [facility] [place], [place] Chlamydia and GC PCR Panelon 04-25-2020 [...] as suspected child abuse or molestation. Normal [facility] Comment on above: Performed By: #### C TNGP ####[facility] [place], [place] Comp Metabolic Panelon 04-25 Calcium [Mass/Vol] 8.5 mg/dL Normal 8.4-10.4 [facility] Comment on above: Performed By: #### P T/AP, CMP3, HEMOG, FIBGN #### [facility] [address] [place], [place] Glucose [Mass/Vol] 97 mg/dL Normal 70-100 [facility] Comment on above: Performed By: #### P T/AP, CMP3, HEMOG, FIBGN #### [facility] [address] [place], [place] ALP [Catalytic activity/Vol] 114 U/L Normal 38-126 [facility] Comment on above: Result Comment: Slig htly hemolysed, interpret with caution. Performed By: #### P T/AP, CMP3, HEMOG, FIBGN #### [facility] [address] [place], [place] ALT [Catalytic activity/Vol] 19 U/L Normal 0-34 [facility] Comment on above: Result Comment: The ALT test is performed by an updated assay method. Please note that the reference intervals have been changed and are now sex specific. Performed By: #### P T/AP, CMP3, HEMOG, FIBGN #### [facility] [address] [place], [place] Anion Gap 6 Normal [facility] Comment on above: Performed By: #### P T/AP, CMP3, HEMOG, FIBGN #### [facility] [address] [place], [place] AST [Catalytic activity/Vol] 39 U/L Normal 15-46 [facility] Comment on above: Result Comment: Slig htly hemolysed, interpret with caution. Performed By: #### P T/AP, CMP3, HEMOG, FIBGN #### [facility] [address] [place], [place] Bilirubin [Mass/Vol] 0.5 mg/dL Normal 0.2-1.3 [facility] Comment on above: Performed By: #### P T/AP, CMP3, HEMOG, FIBGN #### [facility] [address] [place], [place] CO2 [Moles/Vol] 20 mmol/L Low 22-30 [facility] Comment on above: Performed By: #### P T/AP, CMP3, HEMOG, FIBGN #### [facility] [address] [place], [place] Creatinine [Mass/Vol] 0.63 mg/dL Normal 0.52-1.25 [facility] Comment on above: Performed By: #### P T/AP, CMP3, HEMOG, FIBGN #### [facility] [address] [place], [place] eGFR OTHER > 90.0 Normal >60 [facility] Comment on above: Result Comment: KDIG [...] #### P T/AP, CMP3, HEMOG, FIBGN #### [address] [address] [place], [place] GFR/1.73 sq M.predicted among blacks MDRD (S/P/Bld) [Vol rate/Area] mL/min/{1.73_m2} Normal >60 [facility] Comment on above: Performed By: #### P T/AP, CMP3, HEMOG, FIBGN #### [address] [place] [address] [place], [place] Protein [Mass/Vol] 6.9 g/dL Normal 6.3-8.2 [facility] Comment on above: Performed By: #### P T/AP, CMP3, HEMOG, FIBGN #### [address] [place] [address] [address] [place], [place] Urea nitrogen [Mass/Vol] 14 mg/dL Normal 7-20 [facility] Comment on above: Performed By: #### P T/AP, CMP3, HEMOG, FIBGN #### [place] [address] [address] [place], [place] Potassium [Moles/Vol] 4.3 mmol/L Normal 3.5-5.1 [facility] Comment on above: Result Comment: Slig htly hemolysed, interpret with caution. Performed By: #### P T/AP, CMP3, HEMOG, FIBGN #### [place] [address] [address] [place], [place] Sodium [Moles/Vol] 134 mmol/L Low 135-145 [facility] Comment on above: Performed By: #### P T/AP, CMP3, HEMOG, FIBGN #### [facility] [address] [place] [address] Albumin [Mass/Vol] 3.4 g/dL Low 3.5-5.0 [facility] Comment on above: Performed By: #### P T/AP, CMP3, HEMOG, FIBGN #### [facility] [address] [place] [address] Chloride [Moles/Vol] 107 mmol/L Normal 98-107 [facility] Comment on above: Performed By: #### P T/AP, CMP3, HEMOG, FIBGN #### [facility] [address] [place] [address] Comprehensive Metabolic Pane parag 04-25-2020 Albumin [Mass/Vol] 3.4 g/dL Low 3.5 - 5 g/dL [place], [place] ALP [Catalytic activity/Vol] 114 U/L 38 - 126 U/L [place] Comment on above: Slightly hemolysed, interpret with caution. ALT [Catalytic activity/Vol] 19 U/L 0 - 34 U/L [place] Comment on above: The ALT test is perf ormed by an updated assay method. Please note that the reference intervals have been changed and are now sex specific. Anion gap [Moles/Vol] 6 mmol/L [place], [place] AST [Catalytic activity/Vol] 39 U/L 15 - 46 U/L [place] Comment on above: Slightly hemolysed, interpret with caution. Bilirubin Ql (U) 0.5 mg/dL 0.2 - 1.3 mg/dL [place] Calcium [Mass/Vol] 8.5 mg/dL 8.4 - 10. 4 mg/dL [place] Chloride [Moles/Vol] 107 mmol/L 98 - 10 7 mmol/L [place] CO2 [Moles/Vol] 20 mmol/L Low 22 - 30 mmol/L [place] Creatinine [Mass/Vol] 0.63 mg/dL 0.52 - 1.25 mg/dL [place] EGFR IF NonAfrican Citizen Of [place] >90.0 >60 mL/min [place] Comment on above: KDIGO guidelines pro [...] MDRD (S/P/Bld) [Vol rate/Area] mL/min/{1.73_m2} >60 mL/min [place] Glucose [Mass/Vol] 97 mg/dL 70 - 100 mg/dL [place] Interpretation and review of laboratory results Abnormal [place] Potassium [Moles/Vol] 4.3 mmol/L 3.5 - 5.1 mmol/L [place] Comment on above: Slightly hemolysed, interpret with caution. Protein [Mass/Vol] 6.9 g/dL 6.3 - 8.2 g/dL [place] Sodium [Moles/Vol] 134 mmol/L Low 135 - 145 mmol/L [place] Urea nitrogen [Mass/Vol] 14 mg/dL 7 - 20 mg/dL [place] Creatinine, Ur Randomon 03-29 Creatinine, Ur Random 66.8 mg/dL Normal No Range [facility] Comment on above: Performed By: #### C RTUR, TPUR, MAT #### [facility] [address] [place] [address] Fibrinogenon 04-25-2020 Fibrinogen 390 mg/dL Normal 200-400 [place], [place] Comment on above: Performed By: #### P T/AP, CMP3, HEMOG, FIBGN #### [place] [address] [place], [place] Hemogramon 04-25-2020 Erythrocyte distribution width (RBC) [Ratio] 18.2 % High 11.5-14.5 [facility] Comment on above: Performed By: #### P T/AP, CMP3, HEMOG, FIBGN #### [place] [address] [place], [place] Hematocrit (Bld) [Volume fraction] 30.6 % Low 35.0-47.0 [facility] Comment on above: Performed By: #### P T/AP, CMP3, HEMOG, FIBGN #### [place] [address] [address] [place], [place] Hemoglobin (Bld) [Mass/Vol] 9.7 g/dL Low 11.7-16.0 [facility] Comment on above: Performed By: #### P T/AP, CMP3, HEMOG, FIBGN #### [place] [address] [place], [place] MCH (RBC) [Entitic mass] 26.2 pg Normal 26.0-34.0 [facility] Comment on above: Performed By: #### P T/AP, CMP3, HEMOG, FIBGN #### [address] MCHC 31.9 % Low 32.0-36.0 [facility] Comment on above: Performed By: #### P T/AP, CMP3, HEMOG, FIBGN #### [place] [place], [place] MCV (RBC) [Entitic vol] 82.2 fL Normal 79.0-98.0 [facility] Comment on above: Performed By: #### P T/AP, CMP3, HEMOG, FIBGN #### [address] Platelet mean volume (Bld) [Entitic vol] 8.1 fL Normal 7.4-10.4 [facility] Comment on above: Performed By: #### P T/AP, CMP3, HEMOG, FIBGN #### [place] [place], [place] Platelets (Bld) [#/Vol] 249 10*3/uL Normal 140-440 [facility] Comment on above: Performed By: #### P T/AP, CMP3, HEMOG, FIBGN #### [place] [address] [place], [place] RBC (Bld) [#/Vol] 3.72 10*6/uL Low 3.80-5.20 [facility] Comment on above: Performed By: #### P T/AP, CMP3, HEMOG, FIBGN #### [place] [address] [place], [place] WBC (Bld) [#/Vol] 13.3 10*3/uL High 3.6-10.7 [facility] Comment on above: Performed By: #### P T/AP, CMP3, HEMOG, FIBGN #### [address] [place], [place] Medication Assisted Treatmen t Panelon 04-25-2020 Fentanyl Negative Normal [facility] Comment on above: Performed By: #### C RTUR, TPUR, MAT #### [place] [place], [place] Amphetamines Ql (U) Negative Normal [facility] Comment on above: Performed By: #### C RTUR, TPUR, MAT #### [place] [place], [place] Barbiturates Negative Normal [facility] Comment on above: Performed By: #### C RTUR, TPUR, MAT #### [place] [place], [place] Benzodiazepines Ql (U) Negative Normal [facility] Comment on above: Performed By: #### C RTUR, TPUR, MAT #### [place] [place], [place] Buprenorphine Screen Negative Normal [facility] Comment on above: Performed By: #### C RTUR, TPUR, MAT #### [place] [address] [place], [place] Cocaine Ql (U) Negative Normal [facility] Comment on above: Performed By: #### C RTUR, TPUR, MAT #### [facility] [address] [place], [place] Ethanol [Mass/Vol] Negative Normal [facility] Comment on above: Performed By: #### C RTUR, TPUR, MAT #### [facility] [address] [place], [place] Methadone Ql (U) Negative Normal [facility] Comment on above: Performed By: #### C RTUR, TPUR, MAT #### [facility] [address] [place], [place] Opiates Ql (U) Negative Normal [facility] Comment on above: Performed By: #### C RTUR, TPUR, MAT #### [facility] [address] [place], [place] Oxycodone/Oxymorphone Negative Normal [facility] Comment on above: Performed By: #### C RTUR, TPUR, MAT #### [facility] [address] [place], [place] PCP Negative [facility] Comment on above: Performed By: #### C RTUR, TPUR, MAT #### [facility] [address] [place], [place] THC Negative [facility] Comment on above: Performed By: #### C RTUR, TPUR, MAT #### [facility] [address] [place], [place] Amphetamines Ql (U) Negative [facility] [place] [place] Benzodiazepines Ql (U) [facility] [place] [place] Coc[place] Ql (U) [facility] [place] [place] Ethanol [Mass/Vol] Negative [facility] [place] Methadone Ql (U) Negative [facility] [place] Opiates Ql (U) Negative [facility] [place] Sodium [Moles/Vol] See Below [facility] [place] Comment on above: The expected [...] performed using non-forensic procedures. Test Performed by [address], [place] MAT Panel Test Comment See Below Normal [facility] Comment on above: Result Comment: The expected [...] By: #### C RTUR, TPUR, MAT #### [address] [place] [address] Metabolic Panelon 04-25-2020 Sodium [Moles/Vol] Negative [facility], [place] Otheron 04-25-2020 Test Performed by [facility], [facility] [place], [place] [id number] [place] [address], [place] Test Performed by [facility], [facility] [place] [address] [place] PROTEIN, URINE, RANDOMon Interpretation and review of laboratory results Abnormal [place] Protein (U) [Mass/Vol] 88 mg/dL High No Range [place], [place] PROTIME/INR & PTTon 04-25-20 20 INR Coag (PPP) [Relative time] 0.9 {INR} [place] Comment on above: Recommended Anticoag ulant [...] Ur Random 88 mg/dL High No Range [employer] Comment on above: Performed By: #### C RTUR, TPUR, MAT #### [employer] [address] [place], [place] Protime AND APTTon 0 aPTT Coag (Bld) [Time] 21.4 s Normal 20.0-30.5 [place] Comment on above: NOTE: The therapeuti c time for Heparin anticoagulation, based on Xa activity inhibition, is an APTT of 46-80 seconds. Result Comment: NOTE : The therapeutic time for Heparin anticoagulation, based on Xa activity inhibition, is an APTT of 46-80 seconds. Performed By: #### P T/AP, CMP3, HEMOG, FIBGN #### [employer] [address] [place], [place] INR 0.9 Normal 0.9-1.1 [employer] [facility] Comment on above: Result Comment: Trell mmended [...] #### P T/AP, CMP3, HEMOG, FIBGN #### [facility] [employer] [address] [address] PT Coag (PPP) [Time] 9.6 s Normal 9.0-12.0 [place], [place] Comment on above: . Result Comment: . Performed By: #### P T/AP, CMP3, HEMOG, FIBGN #### [facility] [employer] [facility] [address] [place] [address] TS GELon 04-25-2020 TS GEL ABO Group: O Rh, Gel: POS Antibody Screen Gel: NEG Normal [facility] Comment on above: Performed By: #### T SGL ####[facility] [employer] [facility] TYPE AND SCREENon 04-25-2020 Sodium [Moles/Vol] Negative [place] Sodium [Moles/Vol] [place] Sodium [Moles/Vol] Positive [place] Test Performed by [employer] [facility], [address] [place] [id number] [place] ABO, External Resulton 04-10 ABO, External Result O [place], [place] C. Trachomatis, External Res ulton 04-10-2020 C. Trachomatis, External Result Negative [place] HIV, External Resulton 04-10 HIV, External Result Negative [place] Hepatitis B, External Result on 04-10-2020 Hep B, External Result Negative [place] N. Gonorrhoeae, External Res ulton 04-10-2020 N. Gonorrhoeae, External Result Negative [place] Otheron 04-10-2020 Verified with Fer Alejo rn [place], [place] RPR, External Labon 04-10-20 20 RPR, External Result Negative [place] Rh Factor, External Resulton 04-10-2020 Rh Factor, External Result Positive [place] Rubella Titer, External Resu lton 04-10-2020 Rubella Titer, External Result [facility] [place], [place] Progress Noteon 03-08-2020 [employer] Authentication Interface Message Text Pediatric Cardiology Echocardiogram [...] anatomic obstetrical ultrasound. Patient was seen by [facility] with obstetrical ultrasound and genetic counseling performed [...] here today. A echocardiogram was performed by [facility] as part of their evaluation, and felt [...] in visit on 03/08/20 [place] [address] [email or web address] ---- Echocardiogram Report M-mode, complete 2D, complete spectral Doppler, and color Doppler PATIENT: Anand Herrera STUDY DATE/TIME: Mar 08 2020 12:04PM HEIGHT: : 2000 WEIGHT: AGE: 19yr BSA/BMI: / GENDER: F BP: 137 / 64 LOCATION: [facility] REFERRING PHYSICIAN: Zac Martinez Md ORDERING [...] STUDY AND PROCEDURE DATA: Procedure Description: New ([id number]) . Study status: Routine. Location: lab. Procedure: [...] a patent foramen ovale. There is a skjft-id-dley shunt. Left atrium - The atrium is [...] of all we discussed. Hannah Guevara MD [facility] Head Operator [facility] Clinical Gluing Crew Leader of Pediatrics [facility] Counseling and coordination of care for this patient was greater than 35minutes which is more than 50% of the total time of 60 minutes spent on the encounter. Normal [facility] [employer] Authentication Interface Message Text Pediatric Hand Surgery [...] to requesting provider. 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 Consent to share information with [facility] team, OB and gang sawyer signed. Pt plans to deliver at [facility] with Dr Martinez. Top Trimmer is not yet decided. female fetus- name is [place] Method of feeding: breast and bottle Ultrasound findings today: See report in procedures for details. Reinforced continued OB care with Dr Martinez- next appointment- next week [facility] [employer] Authentication Interface Message Text MFM genetic counseling [...] Herrera also met with Jerilyn Agee, Clinical Light Rail Signal Technician from our [facility]. Jerilyn will continue to help coordinate and care. consultation with Pediatric Orthopedic Surgery in the Hand and Upper Extremity Clinic is being arranged. follow up with Pediatric Orthopedic Surgery should be within one month of age or otherwise as per their recommendations. Call [phone] to schedule. Consultation with Medical Genetics should be considered in the period, especially if additional concerns are noted after delivery. The gang sawyer or patient can request this consultation. Call [phone] to schedule. Indicate that you were followed by the [facility] when scheduling. Diagnosis: DIAGNOSIS. 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 Plan: 1. Continued obstetrical care with her primary peoplesoft financial developer is recommended. 2. Follow up q4 weeks to evaluate biometric parameters and anatomy. These are planned with the [facility]/your office. 3. surveillance as follows: weekly BPP beginning at 32 weeks. 4. consultation with Pediatric Orthopedic Surgery in the Hand and Upper Extremity Clinic is being arranged. 5. Delivery is appropriate at your local institution/already planned in [place] with follow up as indicated. 6. Mode and timing of delivery are based on the usual obstetrical indications. 7. Anticipate normal nursery. OR Neonatology/Pediatric di to be present at delivery to evaluate and determine nursery placement. 8. follow up with Pediatric Orthopedic Surgery should be within one month of age or otherwise as per their recommendations. Call [phone] to schedule. 9. Consultation with Medical Genetics should be considered in the period, especially if additional concerns are noted after delivery. The gang sawyer or patient can request this consultation. Call [phone] to schedule. Indicate that you were followed by the [facility] when scheduling. 9. Other follow up as clinically indicated. Her complete [facility] Plan of Care summary will be distributed. The total patient time of the visit was 30 minutes, of which greater than 50% of the time was spent counseling and coordinating care. Junior Kat MD [facility] Progress Noteon 02-15-2020 [employer] Authentication Interface Message Text Dating for consult Normal [facility] Vital Signs Date Time Vital Sign Value Performing Clinician Facility 01-11-2025 14:39-0400 Body mass index (BMI) [Ratio] 30.8 kg/m2 [employer] Work Phone: [facility] 01-11-2025 14:39-0400 Body weight 86.55 kg [employer] Work Phone: [facility] 01-11-2025 14:39-0400 Diastolic blood pressure 64 mm[Hg] Marco AAlianza Work Phone: [facility] 01-11-2025 14:39-0400 Systolic blood pressure 122 mm[Hg] [employer] Work Phone: [facility] 01-04-2025 13:14-0400 Body mass index (BMI) [Ratio] 30.3 kg/m2 Simona ROSS Work Phone: [facility] 01-04-2025 13:14-0400 Body weight 85.16 kg Simona ROSS Work Phone: [facility] 01-04-2025 13:14-0400 Diastolic blood pressure 62 mm[Hg] Simona ROSS Work Phone: [facility] 01-04-2025 13:14-0400 Systolic blood pressure 126 mm[Hg] Simona Hancock PA Work Phone: [facility] 12-22-2024 13:57-0400 Body mass index (BMI) [Ratio] 30.57 kg/m2 Simona Currie PA Work Phone: [facility] 12-22-2024 13:57-0400 Body weight 85.91 kg Simona Currie PA Work Phone: [facility] 12-22-2024 13:57-0400 Diastolic blood pressure 68 mm[Hg] Simona Currie PA Work Phone: [facility] 12-22-2024 13:57-0400 Systolic blood pressure 112 mm[Hg] Simona Currie PA Work Phone: [facility] 12-08-2024 11:30-0400 Body mass index (BMI) [Ratio] 29.58 kg/m2 Marco A Jc DO Work Phone: [facility] 12-08-2024 11:30-0400 Body weight 83.12 kg Marco A Jc DO Work Phone: [facility] 12-08-2024 11:30-0400 Diastolic blood pressure 66 mm[Hg] Marco A Jc DO Work Phone: [facility] 12-08-2024 11:30-0400 Systolic blood pressure 122 mm[Hg] Marco A Jc DO Work Phone: [facility] 11-22-2024 11:51-0400 Body mass index (BMI) [Ratio] 29.34 kg/m2 Marco A Jc DO Work Phone: [facility] 11-22-2024 11:51-0400 Body weight 82.46 kg Marco A Jc DO Work Phone: [facility] 11-22-2024 11:51-0400 Diastolic blood pressure 66 mm[Hg] Marco A Jc DO Work Phone: [facility] 11-22-2024 11:51-0400 Systolic blood pressure 112 mm[Hg] Marco A Jc DO Work Phone: [facility] 10-25-2024 14:39-0400 Body mass index (BMI) [Ratio] 28.25 kg/m2 Simona Currie PA Work Phone: [facility] 10-25-2024 14:39-0400 Body weight 79.38 kg Simona Currie PA Work Phone: [facility] 10-25-2024 14:39-0400 Diastolic blood pressure 62 mm[Hg] Simona Currie PA Work Phone: [facility] 10-25-2024 14:39-0400 Systolic blood pressure 110 mm[Hg] Simona Currie PA Work Phone: [facility] 09-27-2024 14:51-0400 Body mass index (BMI) [Ratio] 27.12 kg/m2 Marco A Jc DO Work Phone: [facility] 09-27-2024 14:51-0400 Body weight 76.2 kg Marco A Jc DO Work Phone: [facility] 09-27-2024 14:51-0400 Diastolic blood pressure 70 mm[Hg] Marco A Jc DO Work Phone: [facility] 09-27-2024 14:51-0400 Systolic blood pressure 110 mm[Hg] Marco A Jc DO Work Phone: [facility] 08-29-2024 11:50-0400 Body mass index (BMI) [Ratio] 25.95 kg/m2 Marco A Jc DO Work Phone: [facility] 08-29-2024 11:50-0400 Body weight 72.94 kg Marco A Jc DO Work Phone: [facility] 08-29-2024 11:50-0400 Diastolic blood pressure 68 mm[Hg] Marco A Jc DO Work Phone: [facility] 08-29-2024 11:50-0400 Systolic blood pressure 114 mm[Hg] Marco A Jc DO Work Phone: [facility] 08-01-2024 13:20-0400 Body mass index (BMI) [Ratio] 26.95 kg/m2 Marco A Jc DO Work Phone: [facility] 08-01-2024 13:20-0400 Body weight 75.75 kg Marco A Jc DO Work Phone: [facility] 08-01-2024 13:20-0400 Diastolic blood pressure 70 mm[Hg] Marco A Jc DO Work Phone: [facility] 08-01-2024 13:20-0400 Systolic blood pressure 120 mm[Hg] Marco A Jc DO Work Phone: [facility] 05-19-2024 11:32-0500 Body mass index (BMI) [Ratio] 23.4 kg/m2 Marco A Jc DO Work Phone: [facility] 05-19-2024 11:32-0500 Body weight 65.77 kg Marco A Jc DO Work Phone: [facility] 05-19-2024 11:32-0500 Diastolic blood pressure 74 mm[Hg] Marco A Jc DO Work Phone: [facility] 05-19-2024 11:32-0500 Systolic blood pressure 110 mm[Hg] Marco A Jc DO Work Phone: [facility] 04-19-2024 01:09-0500 Body temperature 98.06 [degF] [facility] 04-19-2024 01:09-0500 Diastolic blood pressure 84 mm[Hg] [facility] 04-19-2024 01:09-0500 Heart rate 90 /min [facility] 04-19-2024 01:09-0500 Respiratory rate 16 /min [facility] 04-19-2024 01:09-0500 SaO2% (BldA) [Mass fraction] 100 % [facility] 04-19-2024 01:09-0500 Systolic blood pressure 126 mm[Hg] [facility] 03-08-2024 15:12-0500 Body mass index (BMI) [Ratio] 22.29 kg/m2 Marco A Jc DO Work Phone: [facility] 03-08-2024 15:12-0500 Body weight 62.65 kg Marco A Cj DO Work Phone: [facility] 03-08-2024 15:12-0500 Diastolic blood pressure 70 mm[Hg] Marco A Jc DO Work Phone: [facility] 03-08-2024 15:12-0500 Systolic blood pressure 120 mm[Hg] Marco A Jc DO Work Phone: [facility] 10-14-2022 12:27-0400 Body temperature 98.24 [degF] Nakul Cannon [facility] 10-14-2022 12:27-0400 Diastolic blood pressure 64 mm[Hg] Nakul Cannon [facility] 10-14-2022 12:27-0400 Heart rate 107 /min Nakul Cannon [facility] 10-14-2022 12:27-0400 Respiratory rate 18 /min Nakul Cannon [facility] 10-14-2022 12:27-0400 SaO2% (BldA) [Mass fraction] 100 % Nakul Cannon [facility] 10-14-2022 12:27-0400 Systolic blood pressure 113 mm[Hg] Nakul Kassandra [facility] 12-19-2021 03:42-0400 Diastolic blood pressure 64 mm[Hg] Anthony Michelle [facility] 12-19-2021 03:42-0400 Heart rate 78 /min Anthony Michelle [facility] 12-19-2021 03:42-0400 Hourly Rounding Anthony Michelle [facility] 12-19-2021 03:42-0400 Nursing Progress Note Reason Other: Pt mediciated per orders. Family x1 cartside. Denies any needs at this time. Anthony Michelle [facility] 12-19-2021 03:42-0400 Respiratory rate 16 /min Anthony Michelle [facility] 12-19-2021 03:42-0400 SaO2% (BldA) [Mass fraction] 100 % Anthony Michelle [facility] 12-19-2021 03:42-0400 Systolic blood pressure 116 mm[Hg] Anthony Michelle [facility] 12-19-2021 02:40-0400 Diastolic blood pressure 70 mm[Hg] Anthony Michelle [facility] 12-19-2021 02:40-0400 Heart rate 82 /min Anthony Michelle [facility] 12-19-2021 02:40-0400 Hourly Rounding Anthony Michelle [facility] 12-19-2021 02:40-0400 Nursing Progress Note Reason Other: Pt ambulatory to bathroom and back to cart with a steady gait. Anthony Michelle [facility] 12-19-2021 02:40-0400 Respiratory rate 16 /min Anthony Michelle [facility] 12-19-2021 02:40-0400 SaO2% (BldA) [Mass fraction] 100 % Anthony Michelle [facility] 12-19-2021 02:40-0400 Systolic blood pressure 122 mm[Hg] Anthony Michelle [facility] 12-19-2021 01:53-0400 Body temperature 98.06 [degF] Anthony Michelle [facility] 12-19-2021 01:53-0400 Diastolic blood pressure 84 mm[Hg] Anthony Michelle [facility] 12-19-2021 01:53-0400 Heart rate 89 /min Anthony Michelle [facility] 12-19-2021 01:53-0400 Respiratory rate 16 /min Anthony Michelle [facility] 12-19-2021 01:53-0400 SaO2% (BldA) [Mass fraction] 100 % Anthony Michelle [facility] 12-19-2021 01:53-0400 Systolic blood pressure 149 mm[Hg] Anthony Martinez [facility] 11-01-2021 08:09-0400 Body temperature 98.42 [degF] Keanu Kamara [facility] 11-01-2021 08:09-0400 Diastolic blood pressure 90 mm[Hg] Keanu Asad [facility] 11-01-2021 08:09-0400 Heart rate 94 /min Keanu Asad [facility] 11-01-2021 08:09-0400 Respiratory rate 18 /min Keanu Asad [facility] 11-01-2021 08:09-0400 SaO2% (BldA) [Mass fraction] 98 % Keanu Asad [facility] 11-01-2021 08:09-0400 Systolic blood pressure 145 mm[Hg] Keanu Asad [facility] 09-18-2021 09:59-0400 Body temperature 98.06 [degF] Astrit Hajdari [facility] 09-18-2021 09:59-0400 Diastolic blood pressure 87 mm[Hg] [facility] 09-18-2021 09:59-0400 Heart rate 90 /min [facility] 09-18-2021 09:59-0400 Respiratory rate 16 /min [facility] 09-18-2021 09:59-0400 SaO2% (BldA) [Mass fraction] 100 % [facility] 09-18-2021 09:59-0400 Systolic blood pressure 136 mm[Hg] [facility] 04-28-2020 07:51-0500 Body Temperature 97.81 [degF] [place] 04-28-2020 07:51-0500 BP Diastolic 68 mm[Hg] [place] 04-28-2020 07:51-0500 BP Systolic 121 mm[Hg] [place] 04-28-2020 07:51-0500 Pulse (Heart Rate) 97 /min [place] 04-28-2020 07:51-0500 Pulse Oximetry 97 % [place] 04-28-2020 07:51-0500 Respiratory Rate 18 /min [place] 04-25-2020 13:40-0500 BMI (Body Mass Index) 23.3 kg/m2 [place] 04-25-2020 13:40-0500 Body weight 63.5 kg [place] 04-25-2020 13:40-0500 Height 165.1 cm [place] Encounters Encounter Date Encounter Type Care Provider Facility Start: 01-13-2025 End: 01-13-2025 Clinisync Result Encounter Marco A Greene DO Work Phone: [facility] External Department Unsolicited Start: 01-13-2025 End: 01-13-2025 Clinisync Result Encounter Marco A Jc DO Work Phone: [facility] External Department Unsolicited Start: 01-11-2025 End: 01-11-2025 Office outpatient visit 15 minutes Marco A Jc DO Work Phone: [facility] Comment on above: Third trimester preg tuan ([facility] 36 weeks gestation of ([facility]); Amniotic band syndrome; H/O pre-eclampsia in prior , currently ([facility]) Start: 01-11-2025 End: 01-11-2025 ambulatory MARCO A JC Not Available Start: 01-11-2025 End: 01-11-2025 Bamboo flowsheet Marco A Jc DO Work Phone: [facility] Start: 01-11-2025 End: 01-11-2025 Bamboo flowsheet Marco A Jc DO Work Phone: [facility] OBLYNDA Start: 01-04-2025 End: 01-04-2025 Bamboo flowsheet Simona ROSS Work Phone: [facility] Start: 01-04-2025 End: 01-04-2025 Bamboo flowsheet Simona ROSS Work Phone: [facility] OBLYNDA Start: 01-04-2025 End: 01-04-2025 Office outpatient visit 15 minutes Simona ROSS Work Phone: [facility] OBLYNDA Comment on above: Third trimester preg tuan ([facility]); 35 weeks gestation of ([facility]) Start: 01-04-2025 End: 01-04-2025 ambulatory SIMONA CURRIE Not Available Start: 12-29-2024 End: 12-29-2024 Clinisync Result Encounter Marco A Jc DO Work Phone: [facility] External Department Unsolicited Start: 12-29-2024 End: 12-29-2024 Clinisync Result Encounter Marco A Jc DO Work Phone: [facility] External Department Unsolicited Start: 12-22-2024 End: 12-22-2024 Bamboo flowsheet Simona ROSS Work Phone: [facility] Start: 12-22-2024 End: 12-22-2024 Bamboo flowsheet Simona ROSS Work Phone: [facility] Start: 12-22-2024 End: 12-22-2024 Office outpatient visit 15 minutes Simona ROSS Work Phone: [facility] Comment on above: Third trimester preg tuan ([facility]); 33 weeks gestation of ([facility]); Amniotic band syndrome; History of miscarriage Start: 12-22-2024 End: 12-22-2024 ambulatory SIMONA CURRIE Not Available Start: 12-12-2024 End: 12-12-2024 ambulatory MARCO A JC Not Available Start: 12-08-2024 End: 12-08-2024 Office outpatient visit 15 minutes Marco A Jc DO Work Phone: [facility] Comment on above: Third trimester preg tuan ([facility]); 31 weeks gestation of ([facility]); Screening, , for anatomic survey ([facility]) Start: 12-08-2024 End: 12-08-2024 ambulatory MARCO A JC Not Available Start: 11-22-2024 End: 11-22-2024 Bamboo flowsheet Marco A Jc DO Work Phone: [facility] [place] [facility] Start: 11-22-2024 End: 11-22-2024 Bamboo flowsheet Marco A Jc DO Work Phone: [facility] [place] [facility] Start: 11-22-2024 End: 11-22-2024 Office outpatient visit 15 minutes Marco A Jc DO Work Phone: [facility] Comment on above: Size of fetus incons istent with dates in second trimester ([facility]) (Primary Dx); Second trimester ([facility]); 28 weeks gestation of ([facility]); Mastitis Start: 11-22-2024 End: 11-22-2024 ambulatory MARCO A JC Not Available Start: 10-31-2024 End: 10-31-2024 Clinisync Result Encounter Simona ROSS Work Phone: [facility] External Department Unsolicited Start: 10-31-2024 End: 10-31-2024 Clinisync Result Encounter Simona ROSS Work Phone: [facility] External Department Unsolicited Start: 10-25-2024 End: 10-25-2024 Office outpatient visit 15 minutes Simona ROSS Work Phone: [facility] BCP OB Comment on above: Second trimester pre gnancy ([facility]); 24 weeks gestation of ([facility]); HSV infection; H/O pre-eclampsia in prior , currently ([facility]); Diabetes mellitus screening; Encounter for anatomic survey ([facility]) Start: 10-25-2024 End: 10-25-2024 ambulatory [...] End: 08-16-2024 Subsequent hospital visit by physician [id number] Obgynimg Ultrasound 1 Chinmay Comment on above: as inciden neetu finding ([facility]) Start: 08-01-2024 End: 08-01-2024 Bamboo flowsheet Marco [...] 04-19-2024 End: 04-19-2024 Emergency department patient visit [facility] Start: 03-08-2024 End: 03-08-2024 Patient encounter [...] 02-02-2023 End: 02-25-2023 Pre-admission assessment Zac Martinez [facility] Start: 11-10-2022 ambulatory KELL JOHNSON Faci lity:[facility] Jacobo Mark Start: 10-14-2022 End: 10-14-2022 Emergency department patient visit Nakul Halle [facility] Start: 09-26-2022 ambulatory PCP UNKNOWN Facility:[facility] Jacobo Mark Start: 09-04-2022 End: 09-05-[address] MARCO A GREENE . Facility: Start: 08-14-2022 End: 08-15-[address] MARCO A GREENE . Facility: Start: 12-19-2021 End: 12-19-2021 Emergency department patient visit Anthony Martinez [facility] Start: 11-14-2021 End: 11-14-2021 Patient encounter procedure Grover Amaral OD Work Phone: Ophthalmology Comment on above: EKC (epidemic kerato conjunctivitis) (Primary Dx) Start: 11-07-2021 End: 11-07-2021 Patient encounter procedure Grover Amaral OD Work Phone: Ophthalmology Comment on above: Viral conjunctivitis (Primary Dx) Start: 11-01-2021 End: 11-01-2021 Emergency department patient visit Keanu Kamara [facility] Start: 09-18-2021 End: 09-18-2021 Emergency department patient visit Amos Espinoza [facility] Start: 04-25-2020 End: 04-28-2020 Evaluation and management of inpatient Chelsi Parra Work Phone: [facility] Procedures Date Procedure Procedure Detail Performing Clinician Start: 01-13-2025 US OB BPP W NON-STRESS Marco A Jc DO Work Phone: Start: 01-11-2025 Urnls dip stick/tabl et rgnt [...] Us uterus limited 1/> fetuses Marco A Waqar Jc DO Work Phone: Start: 08-16-2024 Us uterus limited 1/> fetuses Marco A Devio DO Work Phone: Start: 08-01-2024 Urnls dip stick/tabl et rgnt non-auto w/o micrscp Marco A Devio DO Work Phone: Start: 07-07-2024 BOX TEST Marco A Devi o DO Work Phone: Start: 03-08-2024 IGP,APTIMA HPV,AGE GDLN Marco A Devio DO Work Phone: Start: 04-27-2020 Blood count [...] Historical Provider Start: 04-10-2020 [facility] Start: 04-10-2020 N. GONORRHOEAE, EXTE RNAL RESULT Historical Provider Start: 04-10-2020 RH FACTOR, EXTERNAL RESULT Historical Provider Start: 04-10-2020 RPR, EXTERNAL RESULT [facility] Start: 04-10-2020 RUBELLA TITER, EXTER NAL RESULT Historical Provider Plan of Treatment Date Care Activity Detail Author Start: 10-08-2049 Zoster Vaccines (1 o f 2) Zoster Vaccines (1 of 2) [facility] Start: 04-28-2030 DTaP/Tdap/Td Vaccine s (8 - Td or Tdap) DTaP/Tdap/Td Vaccines (8 - Td or Tdap) [facility] Start: 03-14-2025 End: 03-14-2025 Patient encounter procedure [facility] Start: 01-11-2025 End: 01-11-2025 Patient encounter procedure LON Coffe[place] OBLYNDA Comment on above: Arrived Start: 01-11-2025 End: 01-11-2026 CULTURE, GROUP B STREP WITH SUSCEPTIBLITY CULTURE, GROUP B STREP WITH SUSCEPTIBLITY Lab Routine Third trimester ([facility]) Expected: 01/11/2025, Expires: 01/11/2026 [facility] Work Phone: Comment on above: Expected: 01/11/2025 , Expires: 01/11/2026 Start: 01-04-2025 End: 01-04-2025 Patient encounter procedure LON BARRERA Comment on above: Arrived Start: 12-26-2024 Influenza vaccination Influenz a Vaccine (Season Ended) [facility] Start: 12-22-2024 End: 12-22-2024 Patient encounter procedure [facility] Comment on above: Arrived Start: 12-22-2024 End: 06-24-2025 US biophysical profile w non stress test US biophysical profile w non stress test Imaging Routine Amniotic band syndrome Expected: 12/22/2024 (Approximate), Expires: 06/24/2025 [facility] Work Phone: Comment on above: Expected: 12/22/2024 (Approximate), Expires: 06/24/2025 Start: 12-08-2024 End: 03-10-2025 US for US OB 14+ weeks anatomy scan Imaging Routine Third trimester ([facility]) 31 weeks gestation of ([facility]) Screening, , for anatomic survey ([facility]) Expected: 12/08/2024, Expires: 03/10/2025 [facility] [email or web address] Work Phone: Comment on above: Expected: 12/08/2024 , Expires: 03/10/2025 Start: 12-08-2024 End: 12-08-2024 Professional / ancillary services management 12/08/2024 11:00 AM EDT Ancillary Procedure LON Coffey OBLYNDA [address] [place] [address] [place] [address] LON Coffey OBGYVadim Start: 11-22-2024 End: 03-25-2025 US for US OB follow up transabdominal approach Imaging Routine Size of fetus inconsistent with dates in second trimester ([facility]) Expected: 11/22/2024, Expires: 03/25/2025 [facility] [email or web address] Work Phone: Comment on above: Expected: 11/22/2024 , Expires: 03/25/2025 Start: 11-22-2024 End: 11-22-2024 Patient encounter procedure [facility] Comment on above: Arrived Start: 10-25-2024 End: 10-25-2024 Patient encounter procedure [facility] Comment on above: Arrived Start: 10-25-2024 End: 10-25-2025 CBC panel - Blood by Automated count CBC Lab Routine Diabetes mellitus screening Expected: 10/25/2024 (Approximate), Expires: 10/25/2025 [facility] [email or web address] Work Phone: Comment on above: Expected: 10/25/2024 [...] fetuses Imaging Routine Encounter for anatomic survey ([facility]) Expected: 10/25/2024 (Approximate), Expires: 01/25/2025 [facility] [...] EST Office Visit [facility] [address] [place] [id number] Marco A Greene DO [address] [place] [address] Arrived [facility] Comment on above: Arrived Start: 12-27-2023 COVID-19 Vaccine ( season) COVID-19 Vaccine ( season) [facility] Start: 12-26-2021 Influenza vaccination INFLUENZA (#1) [facility] Start: 10-08-2020 PAP TESTING PAP TESTING [facility] Start: 10-08-2020 Screening for malign ant neoplasm of cervix [facility] Start: 10-08-2018 Urine microalbumin profile DTAP,TDAP,TD (1 - Tdap) [facility] Start: 10-08-2017 CHLAMYDIA SCREENING (18-24) CHLAMYDIA SCREENING (18-24) [facility] Start: 10-08-2017 GC (GONORRHEA) SCREENING (18-24) GC (GONORRHEA) SCREENING (18-24) [facility] Start: 10-08-2017 HEPATITIS C SCREENING HEPATITIS C [facility] Start: 10-08-2017 Hepatitis C screening Hepatitis C [facility] Start: 10-08-2017 HIV SCREENING HIV SCREENING [facility] Start: 10-08-2013 PEDS TO ADULT TRANSITION ANNUAL ASSESSMENT PEDS TO ADULT TRANSITION ANNUAL ASSESSMENT [facility] Start: 03-01-2012 Varicella vaccination Varicell a Vaccines (2 of 2 - 2-dose childhood series) [facility] Start: 2011 Adult depression screening assessment DEPRESSION SCREENING [facility] Start: 2011 PEDS TO ADULT TRANSITION INITIAL DISCUSSION PEDS TO ADULT TRANSITION INITIAL DISCUSSION [facility] Start: 10-08-2010 HPV VACCINE (1 - 2-d ose series) HPV VACCINE (1 - 2-dose series) [facility] Start: 04-09-2000 COVID-19 VACCINE (#1) COVID-19 VACCI NE (#1) [facility] Start: 1999 HIV screening HIV Screening [facility] Start: 1999 Lipid panel Lipid Panel [facility] Start: 1999 Yearly Adult Physical Yearly Adult P hysical [facility] CHLAMYDIA TRACHOMATI S (GENITO/STI) CHLAMYDIA [...] Lab Routine Exposure to STD Ordered: 09/27/2024 [facility] Comment on above: Ordered: 09/27/2024 Nonrebreather mask oxygen Nonrebreather mask oxygen Respiratory Care Routine As directed - RT (PRN) until discontinued starting 04/26/2020 [place], [place] Comment on above: As directed - RT (ID N) until discontinued starting 04/26/2020 Oxygen therapy [[facility] Data Set] Initiate Oxygen Therapy Protocol Respiratory Care Routine Daily until discontinued starting 04/26/2020 [place] Comment on above: Daily until disconti nued starting 04/26/2020 Spirometry panel Incentive roger metry Respiratory Care Routine Every 2hr while awake until discontinued starting 04/26/2020 [place] Comment on above: Every 2hr while awak e until discontinued starting 04/26/2020 SURESWAB(R) ADVANCED VAGINITIS PLUS, TMA SURESWAB(R) ADVANCED VAGINITIS PLUS, TMA Pathology and Cytology Routine Exposure to STD Ordered: 09/27/2024 [facility] Work Phone: Comment on above: Ordered: 09/27/2024 [facility] Immunizations Immunization Date Immunization Notes Care Provider Fa cility 04-28-2020 tetanus toxoid, redu paula diphtheria toxoid, and acellular pertussis vaccine, adsorbed [facility] 04-27-2020 influenza, injectabl e, quadrivalent, preservative free [facility] 04-27-2020 influenza virus vacc ine, unspecified formulation [id number] [facility] Work Phone: 04-26-2020 influenza quadrivale nt split vaccine (FLUZONE;FLUARIX;FLULAVAL ;AFLURIA) injection 0.5 mL [facility] 04-26-2020 diphtheria, tetanus toxoids and acellular pertussis vaccine, unspecified formulation [facility] , [place] 12-08-2011 varicella virus vaccine [id number] 1 [facility] Work Phone: Payers Date Payer Category Payer Medicaid [employer] [place] [id number] 2020-Present [phone] [address] [address] [place] [address] Medicaid [id number] 2020 Medicaid (Managed Care) [id number]. [id number] 2020 [employer] [place] ( and others) [facility] [id number] 2020-Present [address] [place] [address] [id number]. [id number] 1999 Unknown [id number] 2.16.840.1.140216.3.579.2. 593 1999 Unknown [id number] 2.16.840.1.543609.3.579.2. 593 1999 Unknown [id number] 2.16.840.1.110910.3.579.2. 356 1999 Unknown [id number] 2.16.840.1.739264.3.579.2. 356 1999 Unknown [id number] 2.16.840.1.091468.3.579.2. 727 1999 Unknown [id number] 2.16.840.1.380357.3.579.2. 1259 1999 Unknown [id number] 2.16.840.1.604513.3.579.2. 1259 1999 Unknown [id number] 2.16.840.1.069597.3.579.2. 1259 1999 Unknown [id number] 2.16.840.1.799302.3.579.2. 1259 1999 Unknown [id number] 2.16.840.1.359902.3.579.2. 1259 1999 Unknown [id number] 2.16.840.1.477286.3.579.2. 9 1999 Unknown [id number] 2.16.840.1.663388.3.579.2. 9 1999 Unknown [id number] 2.16.840.1.317927.3.579.2. 9 1999 Unknown [id number] 2.16.840.1.699098.3.579.2. 9 1999 Unknown [id number] 2.16.840.1.092276.3.579.2. 9 1999 Unknown [id number] 2.16.840.1.834168.3.579.2. 9 1999 Unknown [id number] 2.16.840.1.314765.3.579.2. 1258 1999 Unknown [id number] 2.16.840.1.454198.3.579.2. 9 1999 Unknown [id number] 2.16.840.1.840901.3.579.2. 9 1999 Unknown [id number] 2.16.840.1.703195.3.579.2. 1259 1959 Unknown [id number] Social History Date Type Detail Facility Start: 04-28-2020 End: 10-26-2023 Tobacco smoking status [facility] Never smoker [facility] Start: 04-28-2020 End: 10-26-2023 Tobacco use and exposure Never used [employer] MIRIAM MCCONNELL Start: 04-28-2020 End: 12-07-2024 Alcohol intake Ex-drinker (finding) [employer] ENEDINA [facility]oco Start: 2000 Sex Assigned At Not on file M MIRIAM Manzano Start: 10-28-2021 End: 08-16-2024 [facility] SARS-CoV-2 (event) [facility] Comment on above: denies Start: 10-26-2023 End: 03-08-2024 Sex Assigned At Female [facility] Tobacco smoking status No Smoking Status Entered [facility] Start: 10-26-2023 End: 03-08-2024 History of Social function [facility] Start: 10-29-2022 Alcohol Comment caffeine: rarely [facility] Start: 1999 Sex assigned at Female [facility] Start: 10-19-2022 Gender identity Identifies as female gender (finding) [facility] Start: 05-18-2024 [facility] Tobacco smoking status NHIS Tobacco smoking consumption unknown [facility] Work Phone: Functional Status Date Assessment Result Facility 04-19-2024 Functional Status N/A [facility] 10-14-2022 Functional Status N/A [facility] 12-19-2021 Functional Status N/A [facility] 11-01-2021 Functional Status N/A [facility] Clinical Notes 04-28-2020 to 01-11-2025 Hillary Coreas [employer]PER[employer] - 01/11/2025 2:30 PM CODY Eisenberg - 01/04/2025 1:50 PM CODY Eisenberg - 12/22/2024 2:00 PM Maida Costello [employer]TERN [employer] - 12/08/2024 11:30 AM CODY Eisenberg - [...] History: Diagnosis Date Pre-eclampsia ([facility]) HISTORY PAST MEDICAL HISTORY SOCIAL HISTORY Past Medical History: Diagnosis Date Pre-eclampsia ([facility]) Social History Tobacco Use Smoking [...] nursing note reviewed. Exam conducted with a swimming professor present. Vitals: Estimated body mass index is 30.8 kg/m as calculated from the following: Height as of 10/26/23: 5' 6 . Weight as of this encounter: 190 lb 12.8 oz. BP: 122/64 Patient's last menstrual period was 05/04/2024. ASSESSMENT & PLAN ICD-10-CM 1. Third trimester ([facility]) Z34.93 POCT urinalysis dipstick manually resulted CULTURE, GROUP B STREP WITH SUSCEPTIBLITY CULTURE, GROUP B STREP WITH SUSCEPTIBLITY 2. 36 weeks gestation of ([facility]) Z3A.36 POCT urinalysis dipstick manually resulted 3. Amniotic band syndrome Q79.8 4. H/O pre-eclampsia in prior , currently ([facility]) O09.299 Patient is doing well but has [...] A Greene DO documented in this encounter [facility] 01-04-2025 History of Presen t illness [...] History: Diagnosis Date Pre-eclampsia ([facility]) HISTORY PAST MEDICAL HISTORY SOCIAL HISTORY Past Medical History: Diagnosis Date Pre-eclampsia ([facility]) Social History Tobacco Use Smoking [...] nursing note reviewed. Exam conducted with a swimming professor present. Vitals: Estimated body mass index is 30.3 kg/m as calculated from the following: Height as of 10/26/23: 5' 6 . Weight as of this encounter: 187 lb 12 oz. BP: 126/62 Patient's last menstrual period was 05/04/2024. ASSESSMENT & PLAN ICD-10-CM 1. Third trimester ([facility]) Z34.93 POCT urinalysis dipstick manually resulted 2. 35 weeks gestation of ([facility]) Z3A.35 Return OB: Patient presents today for [...] of: CODY Dumont documented in this encounter [facility] 12-22-2024 History of Presen t illness [...] Diagnosis Date Pre-eclampsia ([facility]) HISTORY PAST MEDICAL HISTORY SOCIAL HISTORY Past Medical History: Diagnosis Date Pre-eclampsia ([facility]) Social History Tobacco Use Smoking status: Never [...] ICD-10-CM 1. Third trimester ([facility]) Z34.93 2. 33 weeks gestation of ([facility]) Z3A.33 3. Amniotic band syndrome [...] of: CODY Dumont documented in this encounter [facility] 12-08-2024 History of Presen t illness [...] History: Diagnosis Date Pre-eclampsia ([facility]) HISTORY PAST MEDICAL HISTORY SOCIAL HISTORY Past Medical History: Diagnosis Date Pre-eclampsia ([facility]) Social History Tobacco Use Smoking [...] nursing note reviewed. Exam conducted with a swimming professor present. Vitals: Estimated body mass index is 29.58 kg/m as calculated from the following: Height as of 10/26/23: 5' 6 . Weight as of this encounter: 183 lb 4 oz. BP: 122/66 Patient's last menstrual period was 05/04/2024. ASSESSMENT & PLAN ICD-10-CM 1. Third trimester ([facility]) Z34.93 2. 31 weeks gestation of ([facility]) Z3A.31 Patient presents today for a routine obstetrics appointment. Patient is currently 31w1d with a Estimated Date of Delivery: 02/08/25. Patient desires to have tubal ligation at time of on 02/01/25. Patient to return to clinic in 2-3 weeks for routine OB care. Documented by Rose Costello LPN on behalf of: Marco A Greene DO documented in this encounter [facility] 11-22-2024 History of Presen t illness [...] Diagnosis Date Pre-eclampsia ([facility]) HISTORY PAST MEDICAL HISTORY SOCIAL HISTORY Past Medical History: Diagnosis Date Pre-eclampsia ([facility]) Social History Tobacco Use Smoking [...] dates in second trimester ([facility]) O26.842 US OB follow up transabdominal approach 2. Second trimester ([facility]) Z34.92 POCT urinalysis dipstick manually resulted 3. 28 weeks gestation of ([facility]) Z3A.28 POCT urinalysis dipstick manually [...] A Greene DO documented in this encounter [facility] 10-25-2024 History of Presen t illness [...] History: Diagnosis Date Pre-eclampsia ([facility]) HISTORY PAST MEDICAL HISTORY SOCIAL HISTORY Past Medical History: Diagnosis Date Pre-eclampsia ([facility]) Social History Tobacco Use Smoking [...] ASSESSMENT & PLAN ICD-10-CM 1. Second trimester ([facility]) Z34.92 POCT urinalysis dipstick manually resulted 2. 24 weeks gestation of ([facility]) Z3A.24 3. HSV infection B00.9 4. H/O pre-eclampsia in prior , currently ([facility]) O09.299 5. Diabetes mellitus screening Z13.1 CBC Glucose tolerance, 1 hour CBC Glucose tolerance, 1 hour 6. Encounter for anatomic survey ([facility]) Z36.89 US OB limited 1+ [...] day. Patient is not being seen at [facility] no longer. Simona Currie gave patient a Rpt Anatomy US to have obtained in our office /[facility] due to the spine not seen at [...] of: CODY Dumont documented in this encounter [facility] 09-27-2024 History of Presen t illness [...] nursing note reviewed. Exam conducted with a swimming professor present. Vitals: Estimated body mass index is [...] A Greene DO documented in this encounter [facility] 08-29-2024 History of Presen t illness [...] nursing note reviewed. Exam conducted with a swimming professor present. Vitals: Estimated body mass index is [...] A Greene DO documented in this encounter [facility] 08-01-2024 History of Presen t illness [...] nursing note reviewed. Exam conducted with a swimming professor present. Vitals: Estimated body mass index is [...] vyvanse 40mg daily. Will have referral to [facility]. She will begin progesterone at 16 weeks. Orders Placed This Encounter Procedures POCT urinalysis dipstick manually resulted Follow Up: Patient is to return to office in 4 week for routine OB appointment. Documented by Elvi Gerber NP on behalf of: Marco A Greene DO documented in this encounter [facility] 05-19-2024 History of Presen t illness [...] A Greene DO documented in this encounter [facility] 04-19-2024 Evaluation + Plan note Extrac nino from: Title:ED Note Author:Olga Davison, Amos De Oliveira te:04/19/24 1. Ear pain, right (H92.01: Otalgia, right ear) 2. Upper respiratory infection (J06.9: Acute upper respiratory infection, unspecified) [facility] 12-24-2024 Hospital Discharge instructions Patient Education 04/19/2024 [...] medicines to help relieve symptoms, such as: Msub-mpw-hbodbiv cold medicines. Cough suppressants. Coughing is a [...] and other clear broths. General instructions Take nhxg-fcq-kawcyrc and prescription medicines only as told by [...] and water are not available, use hand theatre program director. Avoid touching your mouth, face, eyes, or [...] provider. Document Revised: 11/13/2021 Document Reviewed: 11/13/2021 Feedjit Patient Education 2023 [employer]. 04/19/2024 01:34:08 Earache, Adult Earache, Adult An [...] instructions at home: Medicines Take or apply dgbp-trs-ringchf and prescription medicines only as told by [...] provider. Document Revised: 08/25/2022 Document Reviewed: 08/25/2022 Feedjit Patient Education 2023 [employer]. Follow Up Care 04/19/2024 01:06:30 With:Kathy Mccall Address: [address] [place] [address] Sierra, dg C, [facility] [address] [place] [address] Business (1) When:04/22/2024 Comments:Return to the emergency room if your pain recurs or any new symptoms. [facility] 12-24-2024 NoteED Patient Education Note ENT Earache, [...] at home: Medicines ??? Take or apply uyyz-ltr-ugnyrpo and prescription medicines only as told by [...] provider. Document Revised: 08/25/2022 Document Reviewed: 08/25/2022 Feedjit Patient Education ? 2023 [employer]. Infectious Disease Upper Respiratory Infection, Adult An [...] care provide (more content not included)...[facility]11-12-2024 History of Present illness Narrative* Hillary Coreas, PATTERN SHOP SUPERVISOR - 03/08/2024 3:00 PM EST Reason for [...] nursing note reviewed. Exam conducted with a swimming professor present. Vitals: Estimated body mass index is [...] Marco A Greene DO documented in [facility] Hospital[facility]84[facility]2001 Hospital Discharge instructions Patient Education 10/14/2022 13:55:20 Sutures, Starbuck, or Adhesive Wound Closure, Tjwg-xp-Woix Sutures, [place], or Adhesive Wound Closure Doctors [...] ?Hold the edges of the wound together. ?[place] the glue onto your skin. You may [...] Follow these instructions at home: Medicines Take zarl-jeq-mvnlvwn and prescription medicines only as told by [...] cannot use soap and water, use hand theatre program director. Do not try to take off or [...] provider. Document Revised: 08/19/2021 Document Reviewed: 08/19/2021 Feedjit Patient Education 2022 [employer]. Follow Up Care 10/14/2022 12:20:41 With:Baljit Link Address: [address] [place] [address]- Business (1) When:10/17/2022 13:48:24 [facility]08-25-2022 Evaluation + Plan noteExtracted from: Title:ED Note Author:Anthony Martinez DO [place] Date :12/19/21 Excessive vaginal bleeding ( N93.9: [...] w/ Auto Diff eGFR PT & PTT [facility]08-25-2022 Hospital Discharge instructions Patient Education 12/19/2021 04:06:21 Dysfunctional Uterine Bleeding Dysfunctional Uterine Bleeding Dysfunctional uterine bleeding is abnormal bleeding from the uterus. Dysfunctional uterine bleedingincludes: A menstrual period that comes earlier or later than usual. A menstrual period that is senior solutions workflow consultant or heavier than usual, or has large [...] to keep your urine pale yellow. ?Take ybnx-sgk-btohirl or prescription medicines. ?Eat foods that are high in fiber, such as beans, whole grains, and fresh fruits and vegetables. ?Limit foods that are high in fat and processed sugars, such as fried or sweet foods. Medicines Take tdtv-mso-swriqef and prescription medicines only as told by [...] 04/10/2001 Document Revised: 09/22/2018 Document Reviewed: 09/22/2018 Feedjit Patient Education 2020 BrainMass. Follow Up Care 12/19/2021 01:46:43 With:Zac Martinez Address: [facility] [address] [address] Business (1) When:12/22/2021 [facility]07-21-2022 NoteHNO ID: [id number] Author: Grover Amaral OD Service: ? Author Type: PERFUSIONIST Type: Progress Notes Filed: 11/14/2021 2:32 PM [...] Grover Amaral, DIXON November 14, 2021 2:29 [facility]07-21-2022 History of Present illness Narrative* Grover [...] 14, 2021 2:29 PM [facility] NoteHNO ID: [id number] Author: Grover Amaral OD Service: ? Author Type: PERFUSIONIST Type: Progress Notes Filed: 11/07/2021 4:03 PM [...] Grover Amaral OD November 07, 2021 4:03 [facility]07-14-2022 Miscellaneous Notes* Addendum Note - Grover Amaral OD - 11/07/2021 4:06 PM EDT Addended by: GROVER AMARAL on: 11/07/2021 04:06 PM Modules accepted: Orders documented in this encounterC[facility]-14-2022 History of Present illness Narrative* Grover Amaral [...] 07, 2021 4:03 PM documented in [facility]-20[facility] Evaluation + Plan note Extracted from: Title:ED Note Author:Keanu Kamara DO Date: Allergic reaction (T78.40XA: Allergy, unspecified, initial encounter) Orders: predniSONE, 60 mg = 3 tab(s), Oral, Daily, X 5 day(s), # 15 tab(s), Refills(s) 0, Pharmacy: [facility]/pharmacy #[id number], 165, cm, 11/01/21 8:11:00 EDT, Height/Length Dosing, 63, kg, 11/01/21 8:11:00 EDT, Weight Dosing [facility]07-08-2022 Hospital Discharge instructions Patient Education 11/01/2021 08:25:17 [...] care provider who specializes in treating allergies (coordinator mining products) or eye conditions (transitional care manager) for tests to confirm the diagnosis. You [...] Eye drops. These may be prescription or sook-yax-oddwcge. There are several different types. You may [...] known allergens whenever possible. Take or apply idpy-cnj-xhrlhta and prescription medicines only as told by [...] 07/04/2003 Document Revised: 03/26/2018 Document Reviewed: 10/24/2016 Feedjit Patient Education 2020 BrainMass. Follow Up Care 11/01/2021 08:05:40 With:Johanna Huynh Address: [address] [address]- Business (1) When:11/04/2021 08:24:58 Comments:Call today to arrange for follow-up appointment on Thursday or Thursday. Return to the ED with new or worsening symptoms as discussed. With:Baljit Watts Address: [address], [facility] [address] [facility] [place] [address]- Business (1) When:11/04/2021 08:24:46 Comments:Call the office [...] you develop any new or worsening symptoms. [facility]05-25-2022 Hospital Discharge instructions Patient Education 09/18/2021 12:07:29 [...] may be recommended to support your foot. Pano-icd-agrhhvc anti-inflammatory medicines may also be recommended for [...] sitting or lying down. General instructions Take islm-ilk-gvopcdq and prescription medicines only as told by [...] 02/02/2007 Document Revised: 12/14/2018 Document Reviewed: 12/14/2018 Feedjit Patient Education 2019 [employer] Follow Up Care 09/18/2021 09:48:23 With:Baljit Link Address: [address] [place] [address]- Business (1) When:09/21/2021 11:47:11 Comments:Return to the emergency room if your pain gets worse or any new symptom [facility]05-25-2022 Evaluation + Plan noteExtracted from: Title:ED Note Author:Amos Espinoza M.D. te:09/18/21 1. Contusion of left foot (S 90.32XA: Contusion of left foot, initial encounter) Orders: Post-op Shoe XR Foot 3+ Views Left [facility]01-02-2021 NoteDepartment of Obstetrics and Gynecology Delivery Discharge Summary Admission on 04/25/2020 1:08 PM Reason for admission: 04/25/2020 Intrapartum Course: N/A 30w6d PC-01 Indications for Delivery: Was patient delivered between 37w0d - 24n2rsucfp? NO Surgical Operations & Procedures: Date of delivery: 04/26/2020 Delivery Type: without labor Anesthesia: Spinal anesthesia Laceration(s): n/a Delivery Complications: none EBL: 700 cc Pertinent Findings & Procedures: Information for the patient's : Ree Herrera [[id number]] female Weight: 2 lb 12.3 oz (1.256 kg) Apgars: Information for the patient's : Ree Herrera [[id number]] One Minute : 6 Five Minute : 7 Course: Magnesium sulfate and Procardia for PEWSF : Female infant Blood Type/Rh: O POS Antibody Screen: Antibody Screen Date Value Ref Range Status 04/25/2020 NEG NA Final Rubella: No results found for: RUBELLAIGG Contraception: will be discussed with her provider at [place] : no VTE Prophylaxis: Not Indicated Meds: Anand Herrera Home Medication Instructions RANDA:[id number] Printed on:04/28/20 1238 Medication Information ferrous sulfate [...] in [address] Wray in [place]. Condition on discharge: Stable Discharge to: Home [...] know - She will follow with her CLUBHOUSE ATTENDANT in [place] - I will call Dr. 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 documented [facility] this encounter [facility] [place] [facility]* Diagnosis Well woman exam with routine gynecological exam Routine gynecological examination documented in [facility] encounter [facility]* Diagnosis control counseling documented in this encounter [facility]* Diagnosis 12 weeks gestation of First trimester state, incidental Amniotic band syndrome Other problem associated with amniotic cavity and membranes, unspecified as to episode of care [facility] Diagnosis as incidental finding ([facility]) documented in this encounter [facility] Work Phone: Evaluation note* Diagnosis History of miscarriage- Primary Personal history of other genital system and obstetric disorders Second trimester state, incidental 16 weeks gestation of STD exposure Vaginal discharge Leukorrhea, not specified as infective documented in this encounter [facility]* Diagnosis Second trimester state, incidental 20 weeks gestation of Exposure to STD History of miscarriage Personal history of other genital system and obstetric disorders documented in this encounter [facility]* Diagnosis Second trimester ([facility]) state, incidental 24 weeks gestation of ([facility]) HSV infection Herpes simplex without mention of complication H/O pre-eclampsia in prior , currently ([facility]) Diabetes mellitus screening Screening for diabetes mellitus Encounter for anatomic survey ([facility]) Encounter for anatomic survey documented in this encounter [facility]* Diagnosis Size of fetus inconsistent with dates in second trimester ([facility])- Primary Second trimester ([facility]) state, incidental 28 weeks gestation of ([facility]) Mastitis Inflammatory disease of breast documented in this encounter [facility]* Diagnosis Third trimester ([facility]) state, incidental 31 weeks gestation of ([facility]) Screening, , for anatomic survey ([facility]) Encounter for anatomic survey documented in this encounter [facility]* Diagnosis Third trimester [...] ([facility]) state, incidental 36 weeks gestation of ([facility]) Amniotic band syndrome Other problem associated with amniotic cavity and membranes, unspecified as to episode of care H/O pre-eclampsia in prior , currently ([facility]) documented in this encounter [facility] HealthcareHospital course Narrative No data available for this section [facility] Dis[facility] instructions No data available for this section [facility] No data available for this section [facility] N[facility]* Imaging (Routine) - Pending Review Specialty Diagnoses / Procedures Referred By Joseph hoff Referred To Contact Radiology Diagnoses as incidental finding ([facility]) Procedures US OB limited 1+ fetuses US MAC OB imaging order Marco A Greene DO [address] [facility] [address], [place] [address] Phone: tel: fax: Referral ID Status Reason Start Date Expiration Date Visits Requested Visits Authorized [id number] Pending Review Perform Procedure 08/03/2024 08/03/2025 1 1 [facility] Work Phone: Summary Purpose Family [...] Delivery: Was patient delivered between 37w0d - 59x4edzyez? NO Surgical Operations & Procedures: Date of delivery: 04/26/2020 Delivery Type: without labor Anesthesia: Spinal anesthesia Laceration(s): n/a Delivery Complications: none EBL: 700 cc Pertinent Findings & Procedures: Information for the patient's : Ree Herrera [[id number]] female Weight: 2 lb 12.3 oz (1.256 kg) Apgars: Information for the patient's : Ree Herrera [[id number]] One Minute : 6 Five Minute : 7 Course: Magnesium sulfate and Procardia for PEWSF Infant: Female Blood Type/Rh: O POS Antibody Screen: Antibody Screen Date Value Ref Range Status 04/25/2020 NEG NA Final Rubella: No results found for: RUBELLAIGG Contraception: will be discussed with her provider at [place] : no VTE Prophylaxis: Not Indicated Meds: Amie Herrerajose Home Medication Instructions RANDA:[id number] Printed on:04/28/20 1238 Medication Information ferrous sulfate [...] in [address] Wray in [place]. Condition on discharge: Stable Discharge to: Home [...] know - She will follow with her CLUBHOUSE ATTENDANT in [place] - I will call Dr. Wray answering service at [phone] to update him with her condition, medications, [...] allowing us to care of you at [facility]. This time can be one of [...] over the next few weeks. Bleeding may continuous pickling line pickler helper and then decrease again around 7-10 days [...] avoid constipation you may take a mild feep-ncy-yniojyv stool softener (such as colace) as recommended [...] clean your hands with an alcohol-based hand theatre program director that contains at least 60% alcohol. Clean your hands often Wash your hands often with soap and water for at least 20 seconds, especially after blowing your nose, coughing, or sneezing; going to the bathroom; and before eating or preparing food. If soap and water are not readily available, use an alcohol-based hand theatre program director with at least 60% alcohol, covering all [...] healthcare provider to call the local or [facility] health department. Persons who are placed underactive [...] isolation precautions should be made on a tcbf-sh-rbfb basis, in consultation with healthcare providers and [facility], [facility] local health departments. Information on COVID-19 for [...] respiratory tract signs and symptoms. Ways to Hines with Anxiety & Stress It is normal [...] an illness that was first found in [facility], in March 2019. It has since [...] seen in people before. This virus spreads poskws-sa-qdkzbt through droplets from coughing and sneezing. It [...] water aren't available, use an alcohol-based hand theatre program director. Call 911 anytime you think you may [...] of: July 27, 2019 Content Version: 12. [employer]. Care instructions adapted under license by your healthcare professional. If you have questions about a medical condition or this instruction, always ask your healthcare professional. [employer] disclaims any warranty or liability for your use of this information. General Recommendations for Routine Cleaning and Disinfection of Households Community members can practice routine cleaning of frequently touched surfaces (for example: tables, doorknobs, light switches, handles, desks, toilets, faucets, sinks) with household electric cutter operator and EPA-registered disinfectants that are appropriate [...] appropriate. These supplies include tissues, paper towels, electric cutter operator and EPA-registered disinfectants (see list link [...] be used for other purposes. Consult the olive picker's instructions for cleaning and disinfection products used. [...] used if appropriate for the surface. Follow olive picker's instructions for application and proper ventilation. Check [...] Products with EPA-approved emerging viral pathogens [facility] iconexternal icon are expected to be effective against COVID-19 based on data for harder to kill viruses. Follow the olive picker's instructions for all cleaning and disinfection products (e.g., concentration, application method and contact time, etc.). Soft (porous) surfaces such as carpeted floor, rugs, and drapes Remove visible contamination if present and clean with appropriate electric cutter operator indicated for use on these surfaces. After cleaning: Launder items as appropriate in accordance with the olive picker's instructions. If possible, launder items using the [...] items as appropriate in accordance with the olive picker's instructions. If possible, launder items using the warmest appropriate water setting for the items and dry items completely. Dirtylaundry from an ill person can be washed with other people's items. o Clean and disinfect clothes hampers according to guidance above for surfaces. If possible, consider placing a jute bag cutting machine operator that is either disposable (can be thrown away) or can be laundered. CDC has a list of EPA approved cleaning products on their website - https://www.cdc.gov/coronavirus/ 2019-ncov/community/home/cleaning-disinfection.html https://www.Live[employer].Krillion/Nqnya-Oyyamykwgec-Bhcjmfix-Products-List.pdf Grocery Stores with delivery and continuous pickling line pickler helper services: [employer]: Free continuous pickling line pickler helper at locations Delivery is $12.95 a month Website - [employer]: Web Manager $2.95 (1st order is free) Delivery is $14.95 Website - [employer]: stock control supervisor is free Delivery is $5.95 [employer]dom[employer]: stock control supervisor is $4.95 Delivery is $9.95 Website [employer]: stock control supervisor is $4.95 Delivery is $9.95 Website ProPerformarTelera Whole [employer] Market: Can be ordered for delivery and continuous pickling line pickler helper with Primo1D Website - www.[employer]: Free deliver for first 3 orders of $35 or more Website aldiNimbus Concepts Will deliver from [employer], Me[employer], [employer], and [employer]. Annual membership is $99 Monthly membership is [...] Clean, dry, and intact Assessment and Plan: Anadn Herrera is a POD # 2 s/p PLTCS 2/2 cat II FHT 1. Care - Doing well, VSS - female - Contraception: Per private attending - DVT prophylaxis: Not Indicated - Antihypertensive medication: procardia XL 30mg 2. PreEwSF - severe range Bps at [facility], acutely treated with 5mg IV labetalol, [...] know - She will follow with her CLUBHOUSE ATTENDANT in [place] - I will call Dr. Wray answering service at [phone] to update him with her condition, medications, [...] MD - 04/25/2020 11:32 PM EST [facility] licensed occupational therapist physician tracing review from earlier admission with [...] concern for concealed abruption. I did not assistant counsel the patient directly of the R/B/A of [...] day, as when she first arrived to [facility] more moderate than minimal. Patient rajeev [...] content) DATE CREATED AUTHOR 04/18/2020 [facility] DATE CREATED AUTHOR AUTHOR'S ORGANIZ ATION 02/28/2021 [facility] DATE CREATED AUTHOR AUTHOR'S ORGANIZ ATION 11/16/2021 [facility] DATE CREATED AUTHOR AUTHOR'S ORGANIZ ATION 09/10/2022 [facility] DATE CREATED AUTHOR AUTHOR'S ORGANIZ ATION 11/13/2022 [facility] DATE CREATED AUTHOR AUTHOR'S ORGANIZ ATION 04/22/2024 [facility] DATE CREATED AUTHOR AUTHOR'S ORGANIZ ATION 01/13/2025 [facility] EPIC Reason for Visit (unrecogniz [...] Care Team (unrecognized sect ion and content) Ticket Scheduler Relationship Specialty Start Date End Date Balijt Watts MD [address] [place] [id number] PCP - General Family Practice 11/07/21 Ticket Scheduler Relationship Specialty Start Date End Date LinkBaljit MD [address] [place] [address] PCP - General Family Practice 11/07/21 Ticket Scheduler Relationship Specialty Start Date End Date LinkBaljit MD [address] [place] [address] PCP - General Family Medicine 10/20/22 Ticket Scheduler Relationship Specialty Start Date End Date LinkBaljit MD [address] [place] [address] PCP - General Family Medicine 10/20/22 Ticket Scheduler Relationship Specialty Start Date End Date LinkBaljit MD [address] [place] [address] PCP - General Family Medicine 10/20/22 Ticket Scheduler Relationship Specialty Start Date End Date LinkBaljit MD [address] [place] [id number] PCP - General Family Medicine 10/20/22 Ticket Scheduler Relationship Specialty Start Date End Date LinkBaljit MD PCP - General Family Medicine 10/20/22 Ticket Scheduler Relationship Specialty Start Date End Date LinkBaljit MD PCP - General Family Medicine 10/20/22 Ticket Scheduler Relationship Specialty Start Date End Date LinkBaljit MD PCP - General Family Medicine 10/20/22 Ticket Scheduler Relationship Specialty Start Date End Date LinkBaljit MD PCP - General Family Medicine 10/20/22 Ticket Scheduler Relationship Specialty Start Date End Date Link, MD Baljit PCP - [facility] Medicine 10/20/22 Ticket Scheduler Relationship Specialty Start Date End Date Link, MD Baljit PCP - General [employer] [facility] 10/20/22 Ticket Scheduler Relationship Specialty Start Date End Date Link, MD Baljit PCP - [facility] Medicine 10/20/22 Ticket Scheduler Relationship Specialty Start Date End Date Link, MD Baljit PCP - [facility] 10/20/22 Ticket Scheduler Relationship Specialty Start Date End Date Link, MD Baljit PCP - General Family Medicine 10/20/22 Ticket Scheduler Relationship Specialty Start Date End Date Link, MD Baljit PCP - [facility] Medicine 10/20/22 Ticket Scheduler Relationship Specialty Start Date End Date Link, MD Baljit PCP - General [employer] [facility] 10/20/22 Ticket Scheduler Relationship Specialty Start Date End Date Link, MD Baljit PCP - General [employer] [facility] 10/20/22 Source Comments (unrecognize d section and content) In the event this informatio n is protected by the Federal Confidentiality of Alcohol and Drug Abuse Patient Records regulations: The Federal rules restrict any use of the information to criminally investigate or prosecute any alcohol or drug abuse patient.[facility] the event this information is protected by the Federal Confidentiality of Alcohol and Drug Abuse Patient Records regulations: The Federal rules restrict any use of the information to criminally investigate or prosecute any alcohol or drug abuse patient.[facility] FOR RECORDS PERTAINING TO PATIENTS WHO ARE [...] BE BASED ON THE PRIMARY CLINICAL RECORDS. [facility] [employer] [facility]. provides no warranty or guarantee of the accuracy or completeness of information in this document.
[2025-01-13 09:53] VITALS: BP 132/78; PULSE 107
[2025-01-13 10:12] VITALS: BP 124/59; PULSE 96
[2025-01-13 10:26] VITALS: BP 117/60; PULSE 96
[2025-01-13 10:33] LABS: Glucose Urine UA NEGATIVE (NEGATIVE)
[2025-01-13 10:41] VITALS: BP 115/57; PULSE 88
[2025-01-13 10:55] LABS: Cast Seen? NONE SEEN #/LPF (NONE SEEN); Crystals Seen? None Seen #/HPF (None Seen)
[2025-01-13 10:56] LABS: Urine Culture Indicated YES-LC
[2025-01-13] MEDS: 0.9 % SODIUM CHLORIDE 500 ML 1000 ML IV (11:36)
[2025-01-13 11:43] VITALS: TEMP 36.6
[2025-01-13] MEDS: HYDROCODONE/ACET 5-325 MG TABLET 1 TAB PO (11:43)
[2025-01-13] MEDS: BETAMETHASONE ACE/BETAMETHASONE SOD PHOS 30 MG/5 ML 12 MG IM (16:01)
== END 2025-01-13 16:20 | disposition home or self-care (01) ==
PROVIDERS: Admitting Provider Obstetrics & Gynecology; Visit Provider Obstetrics & Gynecology
DX: O99.891 Other specified diseases and conditions complicating pregnancy (principal); R51.9 Headache, unspecified; R10.9 Unspecified abdominal pain; Z3A.00 Weeks of gestation of pregnancy not specified
CPT/HCPCS: 81001; 87086; 96372; G0378; G0379; J0702

== ENCOUNTER 2025-01-18 08:00 | Inpatient (IN) | payer OTHER, SELFPAY ==
--- OUTSIDE RECORDS SUMMARY | 2025-01-04 13:50 | XMS_ITS | Encounter Summary ---
Author Organization [facility] Address [address] [place] [address] Care Team Providers Care Rn Tele Name Role Phone Link, Baljit PRETTY Primary Care Provider [phone] Reason for Visit * Reason Comments Routine Visit Encounter Details Date Type Department Care Team (Late st Contact Info) Description 01/04/2025 1:50 PM EDT Routine NOMEmelia BARRERA [address] [place] [address] Simona Currie PA [address] [place], [facility] Third trimester ([facility]); 35 weeks gestation of ([facility]) Social History Tobacco Use Types Packs/Day Years [...] Sign Reading Time Taken Comments Blood Pressure 126/62 01/04/2025 1:14 PM EDT Pulse - - Temperature - - Respiratory Rate - - Oxygen Saturation - - Inhaled Oxygen Concentration - - Weight 85.2 kg (187 lb 12 oz) 01/04/2025 1:14 PM EDT Height - - Body Mass Index 30.3 10/26/2023 1:10 PM EDT documented in this encounter Progress Notes * CODY Dumont - 01/04/2025 1:50 PM EDT Reason for Appointment: Patient ID: [...] Problems Past Medical History: Diagnosis Date Pre-eclampsia ([facility]) HISTORY PAST MEDICAL HISTORY SOCIAL HISTORY Past Medical History: Diagnosis Date Pre-eclampsia ([facility]) Social History Tobacco Use Smoking [...] SYSTEMS Review of Systems: Review of Systems All other systems reviewed and are negative. OBJECTIVE Objective: Physical Exam Constitutional: Appearance: Normal [...] nursing note reviewed. Exam conducted with a chalk molding machine operator present. Vitals: Estimated body mass index is 30.3 kg/m?? as calculated from the following: Height as of 10/26/23: 5' 6 . Weight as of this encounter: 187 lb 12 oz. BP: 126/62 Patient's last menstrual period was 05/04/2024. ASSESSMENT & PLAN ICD-10-CM 1. Third trimester ([facility]) Z34.93 POCT urinalysis dipstick manually resulted 2. 35 weeks gestation of ([facility]) Z3A.35 Return OB: Patient presents today for a routine obstetrics appointment. Patient is currently 35w0d . Patient states she is doing well but has complaints of being tired due to current . Patient has verbalizes frequent movement. labor precautions was discussed/given and patient was instructed to perform kick counts three times a day. Orders Placed This Encounter Procedures POCT urinalysis dipstick manually resulted Follow Up: Patient is to return to office in 1 week for routine OB appointment. Documented by Lisa Gleason LPN on behalf of: CODY Dumont documented in this encounter Plan of Treatment Upcoming Encounters Date Type Department Care Team (Late st Contact Info) Description 03/14/2025 11:00 AM EST Office Visit [facility] Erlinda OBGYN [address] [place] [address] Marco A Greene DO [address] [facility] [address] [place] [address] documented as of this encounter Procedures Procedure Name Priority Date/Time Associated Diagnosis Comments POCT URINALYSIS DIPSTICK Routine 01/04/2025 1:32 PM EDT Third trimester ([facility]) documented in this encounter Results * (ABNORMAL) POCT urinalysis dipstick manually resulted (01/04/2025 1:32 PM EDT) Color, UA Yellow Clarity, UA Clear Glucose, UA Negative Negative - 2000(110) ++++ mg/dL Bilirubin, UA Negative Negative - (70) +++ mg/dL Ketones, UA Negative Negative - 160(16) ++++ mg/dL Spec Grav, UA 1.005 1 - 1.03 Blood, UA Positive Negative - 50 Gabriel/mcL Comment:1+ pH, UA 7.5 5 - 9 Protein, UA Negative Negative - 1999(20) ++++ mg/dL Urobilinogen, UA 0.2 0.2 - 12 mg/dL Leukocytes, UA Negative Negative - 500+++ Sebastián/mcL Nitrite, UA Negative Negative - Positive Urine 01/04/2025 1:32 PM EDT Simona ROSS POINT OF CARE TEST ENTER/EDIT OR DERABLES Final Result documented in this encounter Visit Diagnoses Diagnosis Third trimester ([facility]) state, incidental 35 weeks gestation of ([facility]) documented in this encounter Care Teams Rn Tele Relationship Specialty Start Date End Date Baljit Watts MD PCP - General Family Medicine 10/20/22 documented as of this encounter
--- OUTSIDE RECORDS SUMMARY | 2025-01-11 14:30 | XMS_ITS | Encounter Summary ---
Author Organization [facility] Address [address] [place] [address] Care Team Providers Care Sales Performance Analyst Name Role Phone Link, Baljit PRETTY Primary Care Provider [phone] Reason for Visit * Reason Comments Routine Visit Encounter Details Date Type Department Care Team (Late st Contact Info) Description 01/11/2025 2:30 PM EDT Routine [facility] Coffey OBGYN [address] [address] Marco A Greene DO [address] [facility] [address] Franchesca Coffey, [facility]11 Third trimester ([facility]); 36 weeks gestation of ([facility]); Amniotic band syndrome; H/O pre-eclampsia in prior , currently ([facility]) Social History Tobacco Use Types Packs/Day Years [...] this encounter Progress Notes * Hillary Coreas, MANAGER DATABASE - 01/11/2025 2:30 PM EDT Reason for [...] Medical History: Diagnosis Date Pre-eclampsia ([facility]) HISTORY PAST MEDICAL HISTORY SOCIAL HISTORY Past Medical History: Diagnosis Date Pre-eclampsia ([facility]) Social History Tobacco Use Smoking [...] nursing note reviewed. Exam conducted with a molybdenum steamer operator present. Vitals: Estimated body mass index is 30.8 kg/m?? as calculated from the following: Height as of 10/26/23: 5' 6 . Weight as of this encounter: 190 lb 12.8 oz. BP: 122/64 Patient's last menstrual period was 05/04/2024. ASSESSMENT & PLAN ICD-10-CM 1. Third trimester ([facility]) Z34.93 POCT urinalysis dipstick manually resulted CULTURE, GROUP B STREP WITH SUSCEPTIBLITY CULTURE, GROUP B STREP WITH SUSCEPTIBLITY 2. 36 weeks gestation of ([facility]) Z3A.36 POCT urinalysis dipstick manually resulted 3. Amniotic band syndrome Q79.8 4. H/O pre-eclampsia in prior , currently ([facility]) O09.299 Patient is doing well but has [...] EST Office Visit [facility] [address] [place] [address] Marco A Greene, DO [address] [place] [address] [place] [address] Scheduled Orders Name Type Priority Associated Diagnoses Orde r Schedule CULTURE, GROUP B STREP WITH SUSCEPTIBLITY Lab Routine Third trimester ([facility]) Expected: 01/11/2025, Expires: 01/11/2026 documented as of this encounter Procedures Procedure Name Priority Date/Time Associated Diagnosis Comments POCT URINALYSIS DIPSTICK Routine 01/11/2025 2:47 PM EDT Third trimester ([facility]) 36 weeks gestation of ([facility]) documented in this encounter Results * (ABNORMAL) [...] this encounter Visit Diagnoses Diagnosis Third trimester ([facility]) state, incidental 36 weeks gestation of ([facility]) Amniotic band syndrome Other problem associated with amniotic cavity and membranes, unspecified as to episode of care H/O pre-eclampsia in prior , currently ([facility]) documented in this encounter Care Teams Sales Performance Analyst Relationship Specialty Start Date End Date Baljit Watts MD PCP - General Family Medicine 10/20/22 documented as of this encounter
[2025-01-18] VITALS (41 sets, daily range): BP systolic 98–126; BP diastolic 55–90; PULSE 65–109; TEMP 35.9–37.1; O2SAT 86–99
--- OUTSIDE RECORDS SUMMARY | 2025-01-18 08:04 | XMS_ITS | Encounter Summary ---
Author Organization [facility] Address [address] [place] [address] Care Team Providers Care Legal Billing Clerk Name Role Phone Link, Baljit PRETTY Primary Care Provider [phone] Encounter Details Date Type Department Care Team (Late Contact Info) Description 09/29/2022 Abstract NOMEmelia BARRERA [address] [place] [address] [place] [address] Marco A Greene DO [address] [place] [address] Chiki Coffey, [place] [address] Social History Tobacco Use Types Packs/Day Years [...] 11:00 AM EST Office Visit LON [place] [address] Marco A Greene DO [address], [facility]11 documented as of this encounter Visit Diagnoses Not on filedocumented in this encounter Care Teams Legal Billing Clerk Relationship Specialty Start Date End Date Link, MD Baljit PCP - General Family Medicine 10/20/22 documented as of this encounter
--- OUTSIDE RECORDS SUMMARY | 2025-01-18 08:04 | XMS_ITS | Encounter Summary ---
Author Organization [facility] Address [address] [place] [address] Care Team Providers Care Park Warden Name Role Phone Link, Baljit PRETTY Primary Care Provider [phone] Encounter Details Date Type Department Care Team (Late st Contact Info) Description 09/26/2022 Clinisync Result Encounter NOMS External Department Unsolicited Marco A Greene, DO [address] [place], [facility]11 Social History Tobacco Use Types Packs/Day [...] EST Office Visit LON Coffey OBGYN [address] [place] [address] Marco A Greene DO [address] [place] [address] documented as of this encounter Procedures Procedure [...] gestational sac with a live fetus - [place] rump length is consistent with given OTF [...] Extended Nasal bone: present Anatomy Heart: Normal [place] and Situs. Stomach: Visible, with correct situs. [...] gestational sac with a live fetus - [place] rump length is consistent with given OTF [...] Extended Nasal bone: present Anatomy Heart: Normal [place] and Situs. Stomach: Visible, with correct situs. [...] Sufficient Electronically signed by: JESS FELDMAN MD [facility] DO [facility] Final Result documented in this encounter Visit Diagnoses Not on filedocumented in this encounter Care Teams Park Warden Relationship Specialty Start Date End Date Baljit Watts MD PCP - General Family Medicine 10/20/22 documented as of this encounter
--- OUTSIDE RECORDS SUMMARY | 2025-01-18 08:05 | XMS_ITS | Encounter Summary ---
Author Organization [facility] Address [address] [place] [place] [address] Care Team Providers Care Boom Man Name Role Phone Link, Baljit PRETTY Primary Care Provider [phone] Encounter Details Date Type Department Care Team (Late Contact Info) Description 09/29/2024 Abstract LON BARRERA [address] [place] [address] Marco A Greene DO [facility] [address] [place], [place] [address] Social History Tobacco Use Types Packs/Day Years [...] Office Visit LON BARRERA [address] [place] [address] Marco A Greene DO [address] [place], [facility]11 documented as of this encounter Visit Diagnoses Not on filedocumented in this encounter Care Teams Boom Man Relationship Specialty Start Date End Date Baljit Watts MD PCP - General Family Medicine 10/20/22 documented as of this encounter
--- OUTSIDE RECORDS SUMMARY | 2025-01-18 08:05 | XMS_ITS | Encounter Summary ---
Author Organization [facility] Address [address] [place] [address] Care Team Providers Care Marble Setter Name Role Phone Link, Baljit PRETTY Primary Care Provider [phone] Encounter Details Date Type Department Care Team (Late Contact Info) Description 11/30/2024 Abstract [facility] [address] [place] [address] Simona Woods, SHAR[place] [address] [place] [address] Social History Tobacco Use Types Packs/Day Years [...] EST Office Visit NOMEmelia Coffey OBGYN [address] [facility] [place] [address] Marco A Greene DO [address] [place], [place] [address] documented as of this encounter Visit Diagnoses Not on filedocumented in this encounter Care Teams Marble Setter Relationship Specialty Start Date End Date Baljit Watts MD PCP - General Family Medicine 10/20/22 documented as of this encounter
--- OUTSIDE RECORDS SUMMARY | 2025-01-18 08:05 | XMS_ITS | Encounter Summary ---
Author Organization [facility] Address [address] [facility] [place] [address] Care Team Providers Care Beef Cattle Grazier Name Role Phone Link, Baljit PRETTY Primary Care Provider [phone] Encounter Details Date Type Department Care Team (Late Contact Info) Description 11/14/2022 Abstract NOMEmelia BARRERA [address] [place] [address] [place] [address] Simona Currie PA [address] [place] [address] Dr [place], [place] [address] Social History Tobacco Use Types Packs/Day Years [...] 11:00 AM EST Office Visit NOMEmelia BARRERA [address] [place] [address] [place] [address] Marco A Greene DO [address] [place] [address] [place] [address] documented as of this encounter Visit Diagnoses Not on filedocumented in this encounter Care Teams Beef Cattle Grazier Relationship Specialty Start Date End Date Baljit Watts MD PCP - General Family Medicine 10/20/22 documented as of this encounter
--- OUTSIDE RECORDS SUMMARY | 2025-01-18 08:05 | XMS_ITS | Patient Health Record ---
Author Organization [facility] [employer] Address [address] [place] [address] Care Team Providers Care Plush Finisher Name Role Phone Tanika Rosales Primary Care Provider Reason For Referral No Information Encounters Encounter Location Date Provider Diagnosis [facility] [address] [place] [address] 09/28/2024 Tanika Rosales Dental caries on pit [...] Date Dental Fink [employer] [address] [place] [address] [phone] [id number] ANAND PERALES Self - patient is the insured Dental Wrap [facility] Fink [address] [place] [address] [id number] ANAND PERALES Self - patient is the insured 5
--- OUTSIDE RECORDS SUMMARY | 2025-01-18 08:05 | XMS_ITS | Encounter Summary ---
Author Organization [facility] Address [address] [place] [address] Care Team Providers Care Title Department Manager Name Role Phone Link, Baljit PRETTY Primary Care Provider [phone] Encounter Details Date Type Department Care Team (Late st Contact Info) Description 01/10/2025 Telephone [facility] Erlinda BARRERA [address] [place] [address] Justine Young MA [address] [employer] [place] [address] Social History Tobacco Use Types Packs/Day Years [...] EST Office Visit [facility] Erlinda OBGYN [address] [facility] [place] [phone] Marco A Greene DO [address] [place] [address] documented as of this encounter Visit Diagnoses Not on filedocumented in this encounter Care Teams Title Department Manager Relationship Specialty Start Date End Date Link, MD Baljit PCP - General Family Medicine 10/20/22 documented as of this encounter
--- OUTSIDE RECORDS SUMMARY | 2025-01-18 08:05 | XMS_ITS | Encounter Summary ---
Author Organization [facility] Address [address] [facility] [place] [address] Care Team Providers Care Bpm Solution Architect Name Role Phone Link, Baljit PRETTY Primary Care Provider [phone] Encounter Details Date Type Department Care Team (Late Contact Info) Description 03/17/2024 Orders Only LON BARRERA [address] [facility] [place], [place] [address] Lisa Gleason LPN [address] [place] [address] Social History Tobacco Use Types Packs/Day Years [...] AM EST Office Visit NOMEmelia BARRERA [address] [facility], [place] [address] Marco A Greene DO [address] [place] [address] documented as of this encounter Procedures Procedure [...] on filedocumented in this encounter Care Teams Bpm Solution Architect Relationship Specialty Start Date End Date Link, MD Baljit PCP - General Family Medicine 10/20/22 documented as of this encounter
--- OUTSIDE RECORDS SUMMARY | 2025-01-18 08:05 | XMS_ITS | Clinical Summary ---
Author Organization [facility] Address [address] [place] [address] Care Team Providers Care Radiator Tester Name Role Phone Link, Baljit Gilbert Primary Care Provider [phone] Allergies No known active allergies Medications predniSONE [...] HPV Vaccine Completed 06/21/2012, 01/25, 12/08/2011 Insurance [employer] Care Teams Radiator Tester Relationship Specialty Start Date End Date Link, Baljit Gilbert DO [address] [place] [address] PCP - General Family Medicine 11/07/21
--- OUTSIDE RECORDS SUMMARY | 2025-01-18 08:05 | XMS_ITS | Encounter Summary ---
Author Organization [facility] Address [address] [place] [address] Care Team Providers Care Casey Saw Operator Name Role Phone Link, Baljit Gilbert DO Primary Care Provider [phone] Source Comments In the event this information is protected by the Federal Confidentiality of Alcohol and Drug AbusePatient Records regulations: The Federal rules restrict any use of the information to criminally investigate or prosecute any alcohol or drug abuse patient.[facility] Encounter Details Date Type Department Care Team (Late st Contact Info) Description 11/09/2021 Get Medical Advice Ophthalmology [address] [place] [address] Elmer Sheets, OD [address] [facility] [place] [address] Eyes Social History Tobacco Use [...] on filedocumented in this encounter Care Teams Casey Saw Operator Relationship Specialty Start Date End Date Link, Baljit Gilbert DO [address] [place] [address] PCP - General Family Medicine 11/07/21 documented as of this encounter
--- OUTSIDE RECORDS SUMMARY | 2025-01-18 08:05 | XMS_ITS | Encounter Summary ---
Author Organization [facility] Address [address] [place] [address] Care Team Providers Care Coke Oven Patcher Name Role Phone Link, Baljit PRETTY Primary Care Provider [phone] Encounter Details Date Type Department Care Team (Late st Contact Info) Description 03/13/2023 Clinisync Result Encounter NOMS External Department Unsolicited Marco A Greene DO [address] [place], [facility]11 Social History Tobacco Use Types Packs/Day Years [...] Visit NOMEmelia Coffey OBGYN [address] [place] [address] Marco A Greene DO [address], [facility]11 documented as of this encounter Procedures Procedure Name Priority Date/Time Associated Diagnosis Comments US OB BPP W NON-STRESS 03/13/2023 8:47 AM EST documented in this encounter Results * US OB BPP W NON-STRESS (03/13/2023 8:47 AM EST) Anatomical Region Laterality Modality Other 03/13/2023 8:47 AM EST Narrative 03/13/2023 8:47 [place] [address] Ultrasound Report Signed Patient: ANAND HERRERA MR#: [id number] : 2000 Acct:[id number] Age/Sex: 22 / F ADM Date: 03/13/23 Loc: [facility] 254-[address]: Marco A Greene D.O. Ordering Physician: Marco A Greene D.O. Date of Service: 03/13/23 Procedure(s): US OB BPP w non-stress Accession Number(s): [id number] cc: Marco A Greene D.O.; Physician,Non-Staff M.DIrvin The [address] [address] Patient Name: ANAND HERRERA MRN: [id number] date: 2000 Sex: F Assigned Patient Location: [facility] Current Patient Location: [facility] Accession/Order Number: [id number] Exam Date: 03/13/2023 07:50 Report Date: 03/13/2023 [...] Nicole M.D. Signed By: 03/13/2349 DD/ TD/TT: City Carrier Assistant: Procedure Note Radiology, Radiologist, - 03/13/2023 [place] [address] Ultrasound Report Signed Patient: ANAND HERRERA EMR#: [id number] : 2000Acct:[id number] Age/Sex: Date: 03/13/23 Loc: [facility] 254-[address]: Marco A Greene D.O. Ordering Physician: Marco A Greene D.O. Date of Service: 03/13/23 Procedure(s): US OB BPP w non-stress Accession Number(s): [id number] cc: Marco A Greene D.O.; Physician,Non-Staff Lane[address] The [place] [address] Patient Name: ANAND HERRERA MRN: [facility]:[id number] date: 2000 Sex: F Assigned Patient Location: [facility] Current Patient Location: [facility] Accession/Order Number: [id number] Exam Date: 03/13/2023 07:50 Report Date: 03/13/2023 [...] Jess Nicole M.D. Signed By:03/13/2349 DD/ TD/TT: City Carrier Assistant: us Marco A Jc DO [facility] Final Result documented in this encounter Visit Diagnoses Not on filedocumented in this encounter Care Teams Coke Oven Patcher Relationship Specialty Start Date End Date Link, MD Baljit PCP - General Family Medicine 10/20/22 documented as of this encounter
--- OUTSIDE RECORDS SUMMARY | 2025-01-18 08:05 | XMS_ITS | Encounter Summary ---
Author Organization [facility] Address [address] [place] [address] Care Team Providers Care Combination Welder Apprentice Name Role Phone Link, Baljit PRETTY Primary Care Provider [phone] Encounter Details Date Type Department Care Team (Late Contact Info) Description 01/11/2025 Bamboo flowsheet [facility] Erlinda BARRERA [address] [place] [address] Marco A Greene DO [facility] [address] [place], [place] [address] Social History Tobacco Use Types Packs/Day Years [...] Visit [facility] Erlinda BARRERA [address] [place] [address] Marco A Greene DO [address], [facility]11 documented as of this encounter Visit Diagnoses Not on filedocumented in this encounter Care Teams Combination Welder Apprentice Relationship Specialty Start Date End Date Baljit Watts MD PCP - General Family Medicine 10/20/22 documented as of this encounter
--- OUTSIDE RECORDS SUMMARY | 2025-01-18 08:05 | XMS_ITS | Encounter Summary ---
Author Organization [facility] Address [address] [place] [address] Care Team Providers Care Process Expert Name Role Phone Link, Baljit Gilbert DO Primary Care Provider [phone] Source Comments In the event this information is protected by the Federal Confidentiality of Alcohol and Drug AbusePatient Records regulations: The Federal rules restrict any use of the information to criminally investigate or prosecute any alcohol or drug abuse patient.[facility] Encounter Details Date Type Department Care Team (Late st Contact Info) Description 11/15/2021 Get Medical Advice Ophthalmology [address] [place] [address] Elmer Sheets, OD [address] [facility] [place] [address] Eyes Social History Tobacco Use [...] on filedocumented in this encounter Care Teams Process Expert Relationship Specialty Start Date End Date Link, Baljit Gilbert DO [address] [place] [address] PCP - General Family Medicine 11/07/21 documented as of this encounter
--- OUTSIDE RECORDS SUMMARY | 2025-01-18 08:05 | XMS_ITS | Encounter Summary ---
Author Organization [facility] Address [address] [place] [address] Care Team Providers Care Varnish Remover Name Role Phone Link, Baljit Gilbert DO Primary Care Provider [phone] Source Comments In the event this information is protected by the Federal Confidentiality of Alcohol and Drug AbusePatient Records regulations: The Federal rules restrict any use of the information to criminally investigate or prosecute any alcohol or drug abuse patient.[facility] Encounter Details Date Type Department Care Team (Late st Contact Info) Description 11/18/2021 Get Medical Advice Ophthalmology [address] [place] [address] Elmer Sheets, OD [address] [facility] [place] [address] Tobradex Gel Social History Tobacco [...] on filedocumented in this encounter Care Teams Varnish Remover Relationship Specialty Start Date End Date Link, Baljit Gilbert DO [address] [place] [address] PCP - General Family Medicine 11/07/21 documented as of this encounter
--- OUTSIDE RECORDS SUMMARY | 2025-01-18 08:05 | XMS_ITS | Encounter Summary ---
Author Organization [facility] Address [address] [place] [address] Care Team Providers Care Greek Professor Name Role Phone Link, Baljit PRETTY Primary Care Provider [phone] Encounter Details Date Type Department Care Team (Late st Contact Info) Description 11/10/2022 Clinisync Result Encounter NOMS External Department Unsolicited Marco A Greene DO [address], [facility]11 Social History Tobacco Use Types Packs/Day Years [...] Visit NOMEmelia Coffey OBGYN [address] [place] [address] Marco A Greene DO [address] [place], [place] [address] documented as of this encounter Procedures Procedure [...] EFW (oz) 10 oz EFW by: Hadlock ([id number]) Extended Biodiesel Plant Operations Engineer 7.6 mm CM 4.4 mm 35% Nicolaides [...] Normal LVOT view: Normal 3-vessel view: Normal 0-ysnpby-sbhyaoi view: Normal Heart / Thorax Situs: situs [...] EFW (oz) 10 oz EFW by: Hadlock ([id number]) Extended Biodiesel Plant Operations Engineer 7.6 mm CM 4.4 mm 35% Nicolaides [...] Normal LVOT view: Normal 3-vessel view: Normal 1-cwrxci-eqldwbk view: Normal Heart / Thorax Situs: situs [...] on filedocumented in this encounter Care Teams Greek Professor Relationship Specialty Start Date End Date Link, MD Baljit PCP - General Family Medicine 10/20/22 documented as of this encounter
--- OUTSIDE RECORDS SUMMARY | 2025-01-18 08:05 | XMS_ITS | Encounter Summary ---
Author Organization [facility] Address [address] [place] [address] Care Team Providers Care Aviation Warfare Systems Operator Name Role Phone Link, Baljit PRETTY Primary Care Provider [phone] Encounter Details Date Type Department Care Team (Late st Contact Info) Description 02/09/2023 Clinisync Result Encounter NOMS External Department Unsolicited Marco A Greene DO [address], [facility]11 Social History Tobacco Use Types [...] Visit NOMEmelia Coffey OBGYN [address] [place] [address] Marco A Greene DO [address] [place], [place] [address] documented as of this encounter Procedures Procedure Name Priority Date/Time Associated Diagnosis Comments US OB GROWTH 02/09/2023 4:38 PM EDT documented in this encounter Results * US OB GROWTH (02/09/2023 4:38 PM EDT) Anatomical Region Laterality Modality Other 02/09/2023 4:38 PM EDT Narrative 02/09/2023 4:38 PM EDT [address] [address] Ultrasound Report Signed Patient: ANAND HERRERA MR#: [id number] : 2000 Acct:[id number] Age/Sex: 22 / F ADM Date: 02/09/23 Loc: US Attending Dr: Marco A Greene D.O. Ordering Physician: Marco A Greene D.O. Date of Service: 02/09/23 Procedure(s): US OB growth Accession Number(s): [id number] cc: Marco A Greene D.O. [address] [id number] Patient Name: ANAND HERRERA MRN: [id number] date: 2000 Sex: F Assigned Patient Location: Current Patient Location: Accession/Order Number: [id number] Exam Date: 02/09/2023 13:00 Report Date: 02/09/2023 [...] Signed By: 02/09/23 1640 DD/ 1638 TD/TT: Gem Expert: Procedure Note Radiology, Radiologist, - 02/09/2023 [place] [address] Ultrasound Report Signed Patient: ANAND HERRERA EMR#: [id number] : 2000Acct:[id number] Age/Sex: 22 / FADM Date: 02/09/23 Loc: US Attending Dr: Marco A Greene D.O. Ordering Physician: Marco A Greene D.O. Date of Service: 02/09/23 Procedure(s): US OB growth Accession Number(s): [id number] cc: Marco A Greene D.O. The [place] [id number] Patient Name: ANAND HERRERA MRN: [facility]:[id number] date: 2000 Sex: F Assigned Patient Location: US Current Patient Location: US Accession/Order Number: [id number] Exam Date: 02/09/2023 13:00 Report Date: 02/09/2023 [...] M.D. Signed By:02/09/23 1640 DD/ 1638 TD/TT: Gem Expert: us Marco A Jc DO [facility] Final Result documented in this encounter Visit Diagnoses Not on filedocumented in this encounter Care Teams Aviation Warfare Systems Operator Relationship Specialty Start Date End Date Baljit Watts MD PCP - General Family Medicine 10/20/22 documented as of this encounter
--- OUTSIDE RECORDS SUMMARY | 2025-01-18 08:05 | XMS_ITS | Clinical Summary ---
Author Organization [employer] Address [address] [place] [address] Care Team Providers Care Tube Fitter Name Role Phone Unavailable Primary Care Provider [...]
--- OUTSIDE RECORDS SUMMARY | 2025-01-18 08:05 | XMS_ITS | Encounter Summary ---
Author Organization [facility] Address [address] [place] [address] Care Team Providers Care Procedures Nurse Name Role Phone Link, Baljit PRETTY Primary Care Provider [phone] Encounter Details Date Type Department Care Team (Late st Contact Info) Description 03/10/2023 Clinisync Result Encounter NOMS External Department Unsolicited Marco A Greene DO [address], [facility]11 Social History Tobacco Use Types [...] Visit NOMEmelia Coffey OBGYN [address] [place] [address] Marco A Greene DO [address], [facility]11 documented as of this encounter [...] Marco A Greene DO [facility] Final [facility] * US OB BPP WO NON-STRESS (03/10/2023 10:23 AM EST) Anatomical Region Laterality Modality Other 03/10/2023 10:2 3 AM EST Narrative 03/10/2023 10:23 [place] [address] Ultrasound Report Signed Patient: ANAND HERRERA MR#: [id number] : 2000 Acct:[id number] Age/Sex: 22 / F ADM Date: Loc: [facility] Attending Dr: Anita Graves M.D. Ordering Physician: Marco A Greene D.O. Date of Service: 03/10/23 Procedure(s): US OB BPP wo non-stress Accession Number(s): [id number] cc: Marco A Greene D.O.; Physician,Non-Staff Lane[address] The [address] [address] Patient Name: ANAND HERRERA MRN: [facility]:[id number] date: 2000 Sex: F Assigned Patient Location: [facility] Current Patient Location: [facility] Accession/Order Number: [id number] Exam Date: 03/10/2023 08:45 Report Date: 03/10/2023 [...] Signed By: 03/10/23 1026 DD/ 1023 TD/TT: [employer]: Procedure Note Radiology, Radiologist, MD - 03/10/2023 [place] [address] Ultrasound Report Signed Patient: ANAND HERRERA EMR#: [id number] : 2000Acct:[id number] Age/Sex: 22 / FADM Date: Loc: [facility] 251-[address]: Anita Graves M.D. Ordering Physician: Marco A Greene D.O. Date of Service: 03/10/23 Procedure(s): US OB BPP wo non-stress Accession Number(s): [id number] cc: Marco A Greene D.O.; Physician,Non-Staff Laney The [address] [address] Patient Name: ANAND HERRERA MRN: [facility]:[id number] date: 2000 Sex: F Assigned Patient Location: [facility] Current Patient Location: [facility] Accession/Order Number: [id number] Exam Date: 03/10/2023 08:45 Report Date: 03/10/2023 [...] LEOS Date: 03/10/2023 10:23 Dictated By: Leo eLos M.D. Signed By:03/10/23 1026 DD/ 1023 TD/TT: President [employer] Company: us Marco A Greene DO [facility] Final Result documented in this encounter Visit Diagnoses Not on filedocumented in this encounter Care Teams Procedures Nurse Relationship Specialty Start Date End Date Baljit Watts MD PCP - General Family Medicine 10/20/22 documented as of this encounter
--- OUTSIDE RECORDS SUMMARY | 2025-01-18 08:05 | XMS_ITS | Encounter Summary ---
Author Organization [facility] Address [address] [facility] [facility] [place] [address] Care Team Providers Care Aircraft Structural Design Engineer Name Role Phone Link, Baljit PRETTY Primary Care Provider [phone] Encounter Details Date Type Department Care Team (Late Contact Info) Description 03/16/2023 Abstract NOMEmelia BARRERA [facility] [place] [address] Lisa Gleason LPN [address] [place] [address] Social History Tobacco Use Types Packs/Day Years [...] 11:00 AM EST Office Visit LON BARRERA [facility] [place] [address] Jc, Marco A, [address] [place] [address] documented as of this encounter Visit Diagnoses Not on filedocumented in this encounter Care Teams Aircraft Structural Design Engineer Relationship Specialty Start Date End Date Baljit Watts MD PCP - General Family Medicine 10/20/22 documented as of this encounter
--- OUTSIDE RECORDS SUMMARY | 2025-01-18 08:05 | XMS_ITS | Encounter Summary ---
Author Organization [facility] Address [address] [place] [address] Care Team Providers Care Stitch Bonding Machine Drawer In Name Role Phone Link, Baljit PRETTY Primary Care Provider [phone] Encounter Details Date Type Department Care Team (Late Contact Info) Description 01/04/2025 Bamboo flowsheet [facility] Erlinda BARRERA [address] [place] [address] Simona Currie PA [address] [facility] [address] [place], [place] [address] Social History Tobacco Use Types Packs/Day Years [...] EST Office Visit [facility] Erlinda BARRERA [address] [place] [address] Marco A Greene, [address] [facility] [address] [place], [facility] documented as of this encounter Visit Diagnoses Not on filedocumented in this encounter Care Teams Stitch Bonding Machine Drawer In Relationship Specialty Start Date End Date Baljit Watts MD PCP - General Family Medicine 10/20/22 documented as of this encounter
--- OUTSIDE RECORDS SUMMARY | 2025-01-18 08:05 | XMS_ITS | Encounter Summary ---
Author Organization [facility] Address [address] [place] [address] Care Team Providers Care Heavy Equipment Sales Associate Name Role Phone Link, Baljit Gilbert DO Primary Care Provider Source Comments In the event this information is protected by the Federal Confidentiality of Alcohol and Drug AbusePatient Records regulations: The Federal rules restrict any use of the information to criminally investigate or prosecute any alcohol or drug abuse patient.[facility] Encounter Details Date Type Department Care Team (Late st Contact Info) Description 11/25/2021 Get Medical Advice Ophthalmology [address] [place] [place] [address] Elmer Sheets, OD [address] [facility] [place] [address] Eye drops Social History Tobacco [...] filedocumented in this encounter Care Teams Heavy Equipment Sales Associate Relationship Specialty Start Date End Date Link, Baljit Gilbert DO [address] [facility] [place] [address] PCP - General Family Medicine 11/07/21 documented as of this encounter
--- OUTSIDE RECORDS SUMMARY | 2025-01-18 08:05 | XMS_ITS | Encounter Summary ---
Author Organization [facility] Address [address] [place] [address] Care Team Providers Care Surgical Aides Teacher Name Role Phone Unavailable Primary Care Provider Unavailabl e Encounter Details Date Type Department Care Team ([facility] st Contact Info) Description 04/25/2020 Scanned Document [facility] [place] [id number] Provider, Legacy Conversion Social History Tobacco Use [...]
--- OUTSIDE RECORDS SUMMARY | 2025-01-18 08:05 | XMS_ITS | Encounter Summary ---
Author Organization [facility] Address [address] [place] [place] [address] Care Team Providers Care Supervisor Fish Bait Processing Name Role Phone Link, Baljit PRETTY Primary Care Provider [phone] Encounter Details Date Type Department Care Team (Late Contact Info) Description 08/16/2024 Abstract LON BARRERA [address] [place] [address] Marco A Greene DO [facility] [address] [place], [place] [address] Social History Tobacco Use Types Packs/Day Years [...] Office Visit LON BARRERA [address] [place] [address] Marco A Greene DO [address] [place], [facility] documented as of this encounter Visit Diagnoses Not on filedocumented in this encounter Care Teams Supervisor Fish Bait Processing Relationship Specialty Start Date End Date Baljit Watts MD PCP - General Family Medicine 10/20/22 documented as of this encounter
--- OUTSIDE RECORDS SUMMARY | 2025-01-18 08:05 | XMS_ITS | Encounter Summary ---
Author Organization [facility] Address [address] [place] [address] Care Team Providers Care Engineering Drawings Checker Name Role Phone Link, Baljit Gilbert DO Primary Care Provider [phone] Source Comments In the event this information is protected by the Federal Confidentiality of Alcohol and Drug AbusePatient Records regulations: The Federal rules restrict any use of the information to criminally investigate or prosecute any alcohol or drug abuse patient.[facility] Encounter Details Date Type Department Care Team (Late st Contact Info) Description 11/20/2021 Get Medical Advice Ophthalmology [address] [place] [address] Elmer Sheets, OD [address] [facility] [place] [address] Eye drops Social History Tobacco [...] on filedocumented in this encounter Care Teams Engineering Drawings Checker Relationship Specialty Start Date End Date Link, Baljit Gilbert DO [address] [facility] [place] [phone] PCP - General Family Medicine 11/07/21 documented as of this encounter
--- OUTSIDE RECORDS SUMMARY | 2025-01-18 08:05 | XMS_ITS | Clinical Summary ---
Author Organization [facility] Address [address] [place] [address] Phone Care Team Providers Care Inside Meter Tester Name Role Phone Unavailable Primary Care Provider Unavailabl e Allergies No known active allergies Medications [id number] c acid (PreNata) 29 mg iron- 1 [...] patient's age to complete this topic Insurance [facility]
--- OUTSIDE RECORDS SUMMARY | 2025-01-18 08:05 | XMS_ITS | Clinical Summary ---
Author Organization [facility] Address [address] [facility], [address] [place] [address] Care Team Providers Care Public Address Technician Name Role Phone Unavailable Primary Care [...]
--- OUTSIDE RECORDS SUMMARY | 2025-01-18 08:05 | XMS_ITS | Encounter Summary ---
Author Organization [facility] Address [address] [place] [address] Care Team Providers Care It Security Manager Name Role Phone Link, Baljit PRETTY Primary Care Provider [phone] Encounter Details Date Type Department Care Team (Late st Contact Info) Description 01/12/2023 Clinisync Result Encounter [facility] External Department Unsolicited Marco A Greene DO [address] [place], [id number] Social History Tobacco Use Types Packs/Day Years [...] Visit NOMEmelia [place] OBGYN [address] [place] [phone] Marco A Greene DO [address] [place], [place] [id number] (work) documented as of this encounter Procedures Procedure Name Priority Date/Time Associated Diagnosis Comments US OB CERVICAL LENGTH 01/12/2023 4:57 PM EDT documented in this encounter Results * US OB CERVICAL LENGTH (01/12/2023 4:57 PM EDT) Anatomical Region Laterality Modality Other 01/12/2023 4:57 PM EDT Narrative 01/12/2023 4:57 PM EDT The [address] [address] Ultrasound Report Signed Patient: ANAND HERRERA MR#: [id number] : 2000 Acct:[id number] Age/Sex: 22 / F ADM Date: 01/12/23 Loc: US Attending Dr: Marco A Greene D.O. Ordering Physician: Marco A Greene D.O. Date of Service: 01/12/23 Procedure(s): US OB cervical length Accession Number(s): [id number] cc: Marco A Greene D.O. The [address] [address] Patient Name: ANAND HERRERA MRN: [id number] date: 2000 Sex: F Assigned Patient Location: US Current Patient Location: US Accession/Order Number: [id number] Exam Date: 01/12/2023 08:35 Report Date: 01/12/2023 [...] Signed By: 01/12/23 1700 DD/ 56 TD/TT: Bullet Charging Machine Operator: Procedure Note Radiology, Radiologist, - 01/16/2023 [place] [address] Ultrasound Report Signed Patient: ANAND HERRERA EMR#: [id number] : 2000Acct:[id number] Age/Sex: 22 / FADM Date: 01/12/23 Loc: US Attending Dr: Marco A Greene D.O. Ordering Physician: Marco A Greene D.O. Date of Service: 01/12/23 Procedure(s): US OB cervical length Accession Number(s): [id number] cc: Marco A Greene D.O. The [place] [address] Patient Name: ANAND HERRERA MRN: [id number] date: 2000 Sex: F Assigned Patient Location: US Current Patient Location: US Accession/Order Number: [id number] Exam Date: 01/12/2023 08:35 Report Date: 01/12/2023 [...] Nicole M.D. Signed By:01/12/231699 DD/ 56 TD/TT: Bullet Charging Machine Operator: us Marco A Greene DO [facility] Final Result documented in this encounter Visit Diagnoses Not on filedocumented in this encounter Care Teams It Security Manager Relationship Specialty Start Date End Date Baljit Watts MD PCP - General Family Medicine 10/20/22 documented as of this encounter
--- OUTSIDE RECORDS SUMMARY | 2025-01-18 08:05 | XMS_ITS | Encounter Summary ---
Author Organization [facility] Address [address] [place] [address] Care Team Providers Care Travel Manager Name Role Phone Link, Baljit Gilbert DO Primary Care Provider [phone] Source Comments In the event this information is protected by the Federal Confidentiality of Alcohol and Drug AbusePatient Records regulations: The Federal rules restrict any use of the information to criminally investigate or prosecute any alcohol or drug abuse patient.[facility] Encounter Details Date Type Department Care Team (Late st Contact Info) Description 11/14/2021 Get Medical Advice Ophthalmology [address] [place] [address] Elmer Sheets, OD [address] [facility] [place] [address] Appointment Social History Tobacco Use [...] on filedocumented in this encounter Care Teams Travel Manager Relationship Specialty Start Date End Date Link, Baljit Gilbert DO [address] [place] [address] PCP - General Family Medicine 11/07/21 documented as of this encounter
--- OUTSIDE RECORDS SUMMARY | 2025-01-18 08:05 | XMS_ITS | Clinical Summary ---
Author Organization [facility] Address [address] [place] [address] Care Team Providers Care Teaching Dietitian Name Role Phone Link, Baljit PRETTY Primary Care Provider [phone] Allergies No known active allergies Medications Vyvanse [...] Encounters Date Type Department Care Team Description 01/13/2025 Clinisync Result Encounter [facility] External Department Unsolicited Silas Greene DO 01/11/2025 2:30 PM [place] [phone] Silas Greene DO Third trimester ([facility]); 36 weeks gestation of ([facility]); Amniotic band syndrome; H/O pre-eclampsia in prior , currently ([facility]) 01/11/2025 Bamboo flowsheet [facility] [address] [place] [address] Silas Greene DO 01/10/2025 Telephone [facility] [place] [address] Young Justine, MA 01/04/2025 1:50 PM EDT Routine [facility] [place] [phone] Simona Gunn PA Third trimester ([facility]); 35 weeks gestation of ([facility]) 01/04/2025 Bamboo flowsheet [facility] [place] [address] Simona Gunn PA 12/29/2024 Clinisync Result Encounter [facility] External Department Unsolicited Silas Greene DO 12/22/2024 2:00 PM EDT Routine [facility] Erlinda WILKERSONN Tima [facility] [place] [address] Simona Gunn PA Third trimester ([facility]); 33 weeks gestation of ([facility]); Amniotic band syndrome; History of miscarriage 12/22/2024 Bamboo flowsheet [facility] [place]inda [place] [address] Simona Gunn PA 12/12/2024 11:00 AM EDT Ancillary Procedure [facility] [place] [address] Third trimester ([facility]); 31 weeks gestation of ([facility]); Screening, , for anatomic survey ([facility]) 12/08/2024 11:30 AM EDT Routine [facility]inda WILK[place] [facility] [place] [address] Silas Greene DO Third trimester ([facility]); 31 weeks gestation of ([facility]); Screening, , for anatomic survey ([facility]) 12/08/2024 11:00 AM EDT Ancillary Procedure [facility] Erlinda [address] [place] [address] Size of fetus inconsistent with dates in second trimester ([facility]) 12/08/2024 Telephone [facility] [address] [facility] [place] [address] Rose Costello LPN 12/06/2024 Patient Outreach [facility] [place] [address] [place] [address] Simona Woods LPN 11/30/2024 Abstract [facility] [place] [address] [place] [address] Simona Woods LPN 11/29/2024 Telephone [facility] [address] [facility] [place] [address] Silas Greene DO 11/22/2024 11:40 AM EDT Routine [facility] [address] [facility] [place] [address] Silas Greene DO Size of fetus inconsistent with dates in second trimester ([facility]) (Primary Dx); Second trimester ([facility]); 28 weeks gestation of ([facility]); Mastitis 11/22/2024 Bamboo flowsheet [facility] [address] [facility] [place] [address] Silas Greene DO 11/10/2024 Telephone [facility] Er[facility]inda [address] [place] [address] Piedad Dewitt LPN 10/31/2024 Clinisync Result Encounter [facility] External Department Unsolicited Simona Gunn PA 10/25/2024 2:30 PM EDT Routine [facility] Erlinda [address] [place] [address] Simona Gunn PA Second trimester ([facility]); 24 weeks gestation of ([facility]); HSV infection; H/O pre-eclampsia in prior , currently ([facility]); Diabetes mellitus screening; Encounter for anatomic survey ([facility]) 10/25/2024 Bamboo flowsheet NOM[facility]elia [address] [place] [address] Simona Gunn PA from Last 3 [...] Office Visit [facility] [address] [place] [address] Silas Greene, DO [address] [place] [address] Dr [place] [id number] Procedures Procedure Name Priority Date/Time Associated Diagnosis Comments TBH URINE MICROSCOPIC ONLY Routine 01/13/2025 10:05 AM EDT TBH UA (CLEAN/CATCH) INSIDE SALES COORDINATOR/MICRO IF IND. Routine 01/13/2025 10:05 AM EDT US OB BPP W NON-STRESS 01/13/2025 8:14 AM EDT POCT URINALYSIS DIPSTICK Routine 01/11/2025 2:47 PM EDT Third trimester ([facility]) 36 weeks gestation of ([facility]) POCT URINALYSIS DIPSTICK Routine 01/04/2025 1:32 PM EDT Third trimester ([facility]) US OB BPP W NON-STRESS 12/29/2024 7:37 PM EDT US OB 14+ WEEKS ANATOMY SCAN Routine 12/12/2024 11:50 AM EDT Third trimester ([facility]) 31 weeks gestation of ([facility]) Screening, , for anatomic survey ([facility]) US OB FOLLOW UP TRANSABDOMINAL APPROACH Routine 12/08/2024 11:16 AM EDT Size of fetus inconsistent with dates in second trimester ([facility]) POCT URINALYSIS DIPSTICK Routine 11/22/2024 12:01 PM EDT Second trimester ([facility]) 28 weeks gestation of ([facility]) ALL CBC WITH AUTO DIFF Routine 10:36 AM EDT GLUCOSE 1 HOUR Routine 10/31/2024 10:36 AM EDT US OB INCOMPLETE ANATOMY 10/31/2024 9:54 AM EDT POCT URINALYSIS DIPSTICK Routine 10/25/2024 2:39 PM EDT Second trimester ([facility]) from Last 3 Months Results * (ABNORMAL) TBH URINE MICROSCOPIC ONLY (01/13/2025 10:05 AM EDT) TBH WBC 2-5(A) NONE SEEN #/HPF TBH TBH RBC 0-2 0 - 2 #/HPF TBH BACTERIA URINE TRACE(A) NONE SEEN #/HPF TBH MUCUS URINE NONE SEEN NONE SEEN TBH SQUAMOUS EPITHELIAL CELL URINE FEW(A) NONE/RARE #/LPF TBH CRYSTALS SEEN? None Seen None Seen #/HPF TBH CAST SEEN? NONE SEEN NONE SEEN #/LPF TBH URINE CULTURE INDICATED YES-LC TBH 01/13/2025 10:0 5 AM EDT 01/13/2025 10:19 AM EDT Narrative CLINISYNC - 01/13/2025 10:56 AM EDT us Silas Jc DO CLINISYNC Final Result CLINISYNC TB * (ABNORMAL) TBH UA (CLEAN/CATCH) INSIDE SALES COORDINATOR/MICRO IF IND. (01/13/2025 10:05 AM EDT) COLOR URINE LT. YELLOW YELLOW TBH CLARITY URINE CLEAR CLEAR TBH SPECIFIC GRAVITY URINE <=1.005(A) 1.005 - 1.025 TBH PH URINE 7.0 5.0 - 9.0 TBH PROTEIN URINE NEGATIVE NEG/TRACE mg/dL TBH GLUCOSE URINE UA NEGATIVE NEGATIVE mg/dL TBH BILIRUBIN URINE NEGATIVE NEGATIVE TBH KETONES URINE NEGATIVE NEGATIVE mg/dL TBH BLOOD URINE TRACE-I NEGATIVE TBH NITRITE URINE NEGATIVE NEGATIVE TBH UROBILINOGEN URINE 0.2 0.2 - 1.0 EU/dL TBH LEUKOCYTE ESTERASE URINE SMALL(A) NEGATIVE TBH URINE MICROSCOPIC INDICATED YES TBH 01/13/2025 10:0 5 AM EDT 01/13/2025 10:19 AM EDT Narrative CLINISYNC - 01/13/2025 10:56 AM EDT Silas Greene DO CLINISYCAROLYN Final Result MARRY TB * US OB BPP W NON-STRESS (01/13/2025 8:14 AM EDT) Only the most recent of2 resultswithin the time period is included. Anatomical Region Laterality Modality Other 01/13/2025 8:14 AM EDT Narrative 01/13/2025 8:17 [place] [address] Ultrasound Report Signed Patient: ANAND PERALES MR#: [id number] : 2000 Acct:[id number] Age/Sex: 24 / F ADM Date: 01/12/25 Loc: US Attending Dr: Silas Greene D.O. Ordering Physician: Silas Greene D.O. Date of Service: 01/12/25 Procedure(s): US OB BPP w non-stress Accession Number(s): [id number] cc: Silas Greene D.O.; Physician,Non-Staff MLiborio The [address] [address] Patient Name: ANAND PERALES MRN: [id number] date: 2000 Sex: F Assigned Patient Location: [facility] Current Patient Location: Accession/Order Number: [id number] Exam Date: 01/12/2025 17:07 Report Date: 01/13/2025 08:14 At the request of: SILAS GREENE DO [...] Barth M.D. 01/13/2025 8:14 AM Dictation Location: [place] [address] Electronically authenticated by: [id number] Y Date: 01/13/2025 08:14 Dictated By: Hillary Barth M.D. Signed By: 01/13/25816 DD/ 3 TD/TT: Supervisor Of Instruction: Procedure Note Radiology, Radiologist, - 01/13/2025 [place] [address] Ultrasound Report Signed Patient: ANAND PERALES EMR#: [id number] : 2000Acct:[id number] Age/Sex: 24 FADM Date: 01/12/25 Loc: US Attending Dr: Silas Greene D.O. Ordering Physician: Silas Greene D.O. Date of Service: 01/12/25 Procedure(s): US OB BPP w non-stress Accession Number(s): [id number] cc: Silas Greene D.O.; Physician,Non-Staff [place] The [address] [id number] Patient Name: ANAND PERALES MRN: [facility]:[id number] date: 2000 Sex: F Assigned Patient Location: [facility] Current Patient Location: Accession/Order Number: [id number] Exam Date: 01/12/2025 17:07 Report Date: 01/13/2025 08:14 At the request of: SILAS JC DO Procedure: US OB BPP w non-stress BIOPHYSICAL PROFILE: CLINICAL INFORMATION: HX AMNIOTIC BAND SYNDROME COMPARISON: 12/29/2024 There is a single live intrauterine gestation in cephalic presentation.The reported gestational age is 36 weeks 1 day. The heart rate [id number] beats per minute. FINDINGS: TONE: 1 or more episodes of activity extension and flexion of extremity or opening and closing of the hand [Y] 2/2 GROSS BODY MOVEMENTS: 3 or more discrete body or limb movements [Y] 2/2 BREATHING MOVEMENTS: 1 or more episodes of breathing lastingat least 30 seconds [Y] 2/2 EDITH: A single deepest vertical pocket of amniotic fluid greater than 2 cm [Y] 2/2 EDITH: 17.2 cm Total score: 8/8 US/ OB BPP w non-stress IMPRESSION: NORMAL BIOPHYSICAL PROFILE Impression dictated by: Hillary Barth M.D. 01/13/2025 8:14 AM Dictation Location: [place] Electronically authenticated by: [id number] Y Date: 508:14 Dictated By: Hillary Barth M.D. Signed By:01/13/25816 DD/ 3 TD/TT: Supervisor Of Instruction: us Silas Jc DO CLINISYNC IMAGING Final Result * (ABNORMAL) POCT urinalysis dipstick manually resulted [...] - Positive Urine 01/11/2025 2:47 PM EDT Silas Greene POINT OF CARE TEST ENTER/EDIT OR DERABLES Final Result * US OB 14+ weeks [...] II, MD, PHD at 15-Dec-2024 08:04:22 AM [facility] Procedure Note Zac Martinez MD - [...] signed by ZAC MARTINEZ II, MD, PHD [id number] 08:04:22 AM [facility] us Silas Greene DO IMG OB [...] LAB BLOOD ORDERABLES Final Resul t [facility] * (ABNORMAL) ALL CBC WITH AUTO [...] 10/31/2024 11:03 AM EDT us Simona ROSS CLINISYNC Final Result CLINISYNC [facility] * US OB INCOMPLETE ANATOMY (10/31/2024 9:54 AM EDT) Anatomical Region Laterality Modality Other 10/31/2024 9:54 AM EDT Narrative 10/31/2024 9:57 AM EDT The [address] [address] Ultrasound Report Signed Patient: ANAND PERALES MR#: [id number] : 2000 Acct:[id number] Age/Sex: 24 / F ADM Date: 10/31/24 Loc: US Attending Dr: Simona Gunn Ordering Physician: Simona Gunn Date of Service: 10/31/24 Procedure(s): US OB incomplete anatomy Accession Number(s): [id number] cc: Simona Gunn; Physician,Non-Staff [place] [facility] [place] [id number] Patient Name: ANAND PERALES MRN: [id number] date: 2000 Sex: F Assigned Patient Location: US Current Patient Location: US Accession/Order Number: [id number] Exam Date: 10/31/2024 09:53 Report Date: 10/31/2024 [...] normal. The spine was surveyed by the green plumber and no abnormalities were reported. US/US OB incomplete anatomy IMPRESSION: UNREMARKABLE SPINE ASSESSMENT. Impression dictated by: Hillary Barth M.D. 10/31/2024 9:54 AM Dictation Location: [place] [address] Electronically authenticated by: [id number] Y Date: 10/31/2024 09:54 Dictated By: Hillary Barth M.D. Signed By: 10/31/24 0957 DD/ 0954 TD/TT: Supervisor Of Instruction: Procedure Note Radiology, Radiologist, MD - 10/31/2024 [place] [address] Ultrasound Report Signed Patient: ANAND PERALES EMR#: [id number] : 2000Acct:[id number] Age/Sex: 24 / FADM Date: 10/31/24 Loc: US Attending Dr: Simona Gunn Ordering Physician: Simona Gunn Date of Service: 10/31/24 Procedure(s): US OB incomplete anatomy Accession Number(s): [id number] cc: Simona Gunn; Physician,Non-Staff [place] The [address] [address] Patient Name: ANAND PERALES MRN: [id number] date: 2000 Sex: F Assigned Patient Location: US Current Patient Location: US Accession/Order Number: [id number] Exam Date: 10/31/2024 09:53 Report Date: 10/31/2024 [...] subjectively normal. Thespine was surveyed by the green plumber and no abnormalities were reported. US/ OB incomplete anatomy IMPRESSION: UNREMARKABLE SPINE ASSESSMENT. Impression dictated by: Hillary Barth M.D. 10/31/2024 9:54 AM Dictation Location: [place] [address] Electronically authenticated by: [id number] Y Date: 9:54 Dictated By: Hillary Barth M.D. Signed By:10/31/24 0957 DD/ 0954 TD/TT: Supervisor Of Instruction: Simona Gunn PA CLINISYNC IMAGING Final Result from Last 3 Months Insurance MEDICAID Care Teams Teaching Dietitian Relationship Specialty Start Date End Date Link, MD Baljit PCP - General Family Medicine 10/20/22
--- OUTSIDE RECORDS SUMMARY | 2025-01-18 08:06 | XMS_ITS | CCD ---
Author Organization [facility] Care Team Providers Care Baby Nurse Name Role Phone Unavailable Primary Care Provider UnavailBaljit Luna Primary Care Physician [phone] Baljit Watts MD Primary Care Provider JC ., DR ROSEN Admitting Unavailable JC ., DR ROSEN Attending Unavailable JC ., DR ROSEN Consulting Unavailable ZieberBillie Consulting Unavailable REQUEST, DR MCGUIRE LISTED Consulting Unavaila ble JC ., DR ROSEN Consulting Unavailable JC ., DR ROSEN Admitting Unavailable MISC, DR WOOD Primary Care Unavailable JC ., DR ROSEN Attending Unavailable TOWNLEYKELL Attending Unavailable Jc, Dr. Marco A Zavaleta Referring Unavail able UNKNOWN, PCP Primary Care Unavailable UNKNOWN, PCP Primary Care Unavailable Jc, Dr. Marco A Zavaleta Referring Unavail able Dr. Jess Feldman Attending Unav ailable Baljit Watts MD Primary Care Provider Kathy Mccall Primary Care Physician [phone] Amos Espinoza Attending Unavailable Baljit Watts MD [...] 6 HOURS PRN, Pain Mild (1-3), Starting [facility] 04/26/20 at 0421 Maximum dose of acetaminophen is 4000 mg from all sources in 24 hours. amoxicillin 875 mg oral tablet (6 sources) Penicillin-class Antibacterial Start: 10-14-2022 End: 10-24-2022 take 1 tablet by mouth twice daily amoxicillin 875 mg Tab 875 mg = 1 tab(s), Oral, BID, X 10 day(s), # 20 tab(s), Refills(s) 0, Pharmacy: [facility]/pharmacy #[id number], 164, cm, 10/14/22 12:30:00 EDT, Height/Length Dosing, 66, kg, 10/14/22 12:30:00 EDT, Weight Dosing Start Date: 10/14/22 Stop Date: 10/24/22 Status: Ordered Start: 10-31-2021 take 1 capsule by [facility] every twelve hours amoxicillin 500 mg Cap 500 mg = 1 cap(s), Oral, q12hr, # 20 cap(s), Refills(s) 0, Pharmacy: [facility]/pharmacy #[id number], 165, cm, 10/31/21 12:19:00 [...] Start: 04-01-2020 take 1 capsule by mo [facility] once daily in the morning Vyvanse 60 [...] tablet 3 04/29/2020 Active Start: 04-26-2020 NIFEdipine (NM OCARDIA XL) extended release tablet 30 mg [...] Date: 01/31/23 Status: Ordered polyethylene glycol 3350 95555 mg powder for oral solution (1 source) [...] mouth daily 30 tablet 0 04/28/2020 Active oqj59-juup-qhscq acid (PreNata) 29 mg iron- 1 mg tablet,chewable (1 source) qpo64-uvvc-lmffu acid (PreNata) 29 mg iron- 1 mg [...] day(s), # 15 tab(s), Refills(s) 0, Pharmacy: [facility]/pharmacy #[id number], 165, cm, 11/01/21 8:11:00 [...] OB BPP W NON-STRESS on 01-13-2025 [place] [address] Ultrasound Report Signed Patient: ANAND HERRERA MR#: [id number] : 2000 Acct:[id number] Age/Sex: 24 / F ADM Date: 01/12/25 Loc: US Attending Dr: Marco A Greene D.O. Ordering Physician: Marco A Greene D.O. Date of Service: 01/12/25 Procedure(s): US OB BPP w non-stress Accession Number(s): [id number] cc: Marco A Greene D.O.; Physician,Non-Staff Lane[place] The [place] [address] Patient Name: ANAND HERRERA MRN: [facility]:[id number] date: 2000 Sex: F Assigned Patient Location: [facility] Current Patient Location: Accession/Order Number: [id number] Exam Date: 01/12/2025 17:07 Report Date: 01/13/2025 [...] Barth M.D. 01/13/2025 8:14 AM Dictation Location: [facility] Electronically authenticated by: [id number] Y Date: 01/13/2025 08:14 Dictated By: Hillary Barth M.D. Signed By: 01/13/25816 DD/ 3 TD/TT: Manager Leasing: [facility] Radiology, Radiologist, - 01/13/2025 [place] [address] Ultrasound Report Signed Patient: ANAND HERRERA MR#: [id number] : 2000 Acct:[id number] Age/Sex: 24 / F ADM Date: 01/12/25 Loc: US Attending Dr: Marco A Greene D.O. Ordering Physician: Marco A Greene D.O. Date of Service: 01/12/25 Procedure(s): US OB BPP w non-stress Accession Number(s): [id number] cc: Marco A Greene D.O.; Physician,Non-Staff [place] [address] Patient Name: ANAND HERRERA MRN: [facility]:[id number] date: 2000 Sex: F Assigned Patient Location: [facility] Current Patient Location: Accession/Order Number: [id number] Exam Date: 01/12/2025 17:07 Report Date: 01/13/2025 [...] Barth M.D. 01/13/2025 8:14 AM Dictation Location: [place] [address] Electronically authenticated by: [id number] Y Date: 01/13/2025 08:14 Dictated By: Hillary Barth M.D. Signed By: 01/13/25816 DD/ 3 TD/TT: Manager Leasing: [facility] Radiology Study observation (narrative) [facility] US OB BPP W NON-STRESS Ordered By: Radiologist Radiology on 01-13-2025 [facility] Work Phone: Urinalysis macro (dipstick) panel (U)on 01-11-2025 Bilirubin, UA Negative Negative - 4(70) +++ mg/dL [facility] Blood, UA Positive Negative - 50 Gabriel/mcL [facility] Clarity, UA Clear [facility] Color, UA Yellow [facility] Glucose, UA Negative Negative - 1999(110) ++++ mg/dL [facility] Interpretation and review of laboratory results Abnormal [facility] Ketones, UA Negative Negative - 160(16) ++++ mg/dL [facility] Leukocytes, UA Positive Negative - 500+++ Sebastián/mcL [facility] Nitrite, UA Negative Negative - Positive [facility] pH, UA 7 5 - 9 [facility] Protein, UA Negative Negative - 1999(20) ++++ mg/dL [facility] Spec Grav, UA 1.005 1 - 1.03 [facility] Urobilinogen, UA 1.0 0.2 - 12 mg/dL [facility] Urinalysis macro (dipstick) panel (U)on 01-04-2025 Bilirubin, UA Negative Negative - 4(70) +++ mg/dL [facility] Blood, UA Positive Negative - 50 Gabriel/mcL [facility] Healthcare Comment on above: 1+ Clarity, UA Clear [facility] Color, UA Yellow [facility] Glucose, UA Negative Negative - 1999(110) ++++ mg/dL [facility] Interpretation and review of laboratory results Abnormal [facility] Ketones, UA Negative Negative - 160(16) ++++ mg/dL [facility] Leukocytes, UA Negative Negative - 500+++ Sebastián/mcL [facility] Nitrite, UA Negative Negative - Positive [facility] pH, UA 7.5 5 - 9 [facility] Protein, UA Negative Negative - 1999(20) ++++ mg/dL [facility] Spec Grav, UA 1.005 1 - 1.03 [facility] Urobilinogen, UA 0.2 0.2 - 12 mg/dL [facility] US OB BPP W NON-STRESS on 12-29-[address] [address] Ultrasound Report Signed Patient: ANAND HERRERA MR#: [id number] : 2000 Acct:[id number] Age/Sex: 24 / F ADM Date: 12/29/24 Loc: US Attending Dr: Marco A Greene D.O. Ordering Physician: Marco A Greene D.O. Date of Service: 12/29/24 Procedure(s): US OB BPP w non-stress Accession Number(s): [id number] cc: Marco A Greene D.O.; Physician,Non-Staff Lane[place] The [address] [address] Patient Name: ANAND HERRERA MRN: [facility]:[id number] date: 2000 Sex: F Assigned Patient Location: [facility] Current Patient Location: Accession/Order Number: [id number] Exam Date: 12/29/2024 17:15 Report Date: 12/29/2024 [...] Bo M.D. 12/29/2024 7:37 PM Dictation Location: [facility] Electronically authenticated by: [id number] Y Date: 12/29/2024 19:37 Dictated By: Charles Bo D.O. Signed By: 12/29/241939 DD/ 36 TD/TT: Manager Leasing: [facility] Radiology, Radiologist, - 12/29/[address] [place] [address] Ultrasound Report Signed Patient: ANAND HERRERA MR#: [id number] : 2000 Acct:[id number] Age/Sex: 24 / F ADM Date: 12/29/24 Loc: US Attending Dr: Marco A Greene D.O. Ordering Physician: Marco A Greene D.O. Date of Service: 12/29/24 Procedure(s): US OB BPP w non-stress Accession Number(s): [id number] cc: Marco A Greene D.O.; Physician,Non-Staff Lane[place] [address] [address] Patient Name: ANAND HERRERA MRN: [id number] date: 2000 Sex: F Assigned Patient Location: [facility] Current Patient Location: Accession/Order Number: [id number] Exam Date: 12/29/2024 17:15 Report Date: 12/29/2024 [...] Bo M.D. 12/29/2024 7:37 PM Dictation Location: [place] [address] Electronically authenticated by: [id number] Y Date: 12/29/2024 19:37 Dictated By: Charles Bo D.O. Signed By: 12/29/241939 DD/ 36 TD/TT: Manager Leasing[facility] Rad[facility] Study observation (narrative) [facility] US OB BPP W NON-STRESS Ordered By: Radiologist Radiology on 12-29-2024 [facility] Work Phone: US OB 14+ WEEKS ANATOMY [...] II, MD, PHD at 15-Dec-2024 08:04:22 AM [facility] Normal Not Available Comment on above: Order [...] UA Negative Negative - 4(70) +++ mg/dL [facility] Blood, UA Negative Negative - 50 Gabriel/mcL [facility] Clarity, UA Clear [facility] Color, UA Yellow [facility] Glucose, UA Negative Negative - 1999(110) ++++ mg/dL [facility] Interpretation and review of laboratory results Normal [facility] Ketones, UA Negative Negative - 160(16) ++++ mg/dL [facility] Leukocytes, UA Negative Negative - 500+++ Sebastián/mcL [facility] Nitrite, UA Negative Negative - Positive [facility] pH, UA 6.5 5 - 9 [facility] Protein, UA Negative Negative - 1999(20) ++++ mg/dL [facility] Spec Grav, UA 1.005 1 - 1.03 [facility] Urobilinogen, UA 1.0 0.2 - 12 mg/dL [facility] US OB INCOMPLETE ANATOMYon 0 10-31-2024 [place] [address] Ultrasound Report Signed Patient: ANAND HERRERA MR#: [id number] : 2000 Acct:[id number] Age/Sex: 24 / F ADM Date: 10/31/24 Loc: US Attending Dr: Simona Currie Ordering Physician: Simona Currie Date of Service: 10/31/24 Procedure(s): US OB incomplete anatomy Accession Number(s): [id number] cc: Simona Currie; Physician,Non-Staff M.DIrvin [place] [address] Patient Name: ANAND HERRERA MRN: [facility]:[id number] date: 2000 Sex: F Assigned Patient Location: US Current Patient Location: US Accession/Order Number: [id number] Exam Date: 10/31/2024 09:53 Report Date: 10/31/2024 [...] The spine was surveyed by the senior net engineer and no abnormalities were reported. US/US OB incomplete anatomy IMPRESSION: UNREMARKABLE SPINE ASSESSMENT. Impression dictated by: Hillary Barth M.D. 10/31/2024 9:54 AM Dictation Location: [place] [address] Electronically authenticated by: [id number] Y Date: 10/31/2024 09:54 Dictated By: Hillary Barth M.D. Signed By: 10/31/24 0957 DD/ TD/TT: Manager Leasing: [facility] Radiology, Radiologist, MD - 10/31/[address] [address] Ultrasound Report Signed Patient: ANAND HERRERA MR#: [id number] : 2000 Acct:[id number] Age/Sex: 24 / F ADM Date: 10/31/24 Loc: US Attending Dr: Simona Currie Ordering Physician: Simona Currie Date of Service: 10/31/24 Procedure(s): US OB incomplete anatomy Accession Number(s): [id number] cc: Simona Currie; Physician,Non-Staff M.DIrvin The [address] [address] Patient Name: ANAND HERRERA MRN: [id number] date: 2000 Sex: F Assigned Patient Location: US Current Patient Location: US Accession/Order Number: [id number] Exam Date: 10/31/2024 09:53 Report Date: 10/31/2024 [...] The spine was surveyed by the senior net engineer and no abnormalities were reported. US/US OB incomplete anatomy IMPRESSION: UNREMARKABLE SPINE ASSESSMENT. Impression dictated by: Hillary Barth M.D. 10/31/2024 9:54 AM Dictation Location: [place] [address] Electronically authenticated by: [id number] Y Date: 10/31/2024 09:54 Dictated By: Hillary Barth M.D. Signed By: 10/31/24 0957 DD/ TD/TT: Manager Leasing: [facility] Radiology Study observation (narrative) [facility] US OB INCOMPLETE ANATOMYOrde red By: Radiologist Radiology on 10-31-2024 [facility] Work Phone: Urinalysis macro (dipstick) panel (U)on 10-25-2024 Bilirubin, UA Negative Negative - 4(70) +++ mg/dL [facility] Blood, UA Negative Negative - 50 Gabriel/mcL [facility] Clarity, UA Clear [facility] Color, UA Yellow [facility] Glucose, UA Negative Negative - 1999(110) ++++ mg/dL [facility] Interpretation and review of laboratory results Normal [facility] Ketones, UA Negative Negative - 160(16) ++++ mg/dL [facility] Leukocytes, UA Negative Negative - 500+++ Sebastián/mcL [facility] Nitrite, UA Negative Negative - Positive [facility] pH, UA 6.5 5 - 9 [facility] Protein, UA Negative Negative - 1999(20) ++++ mg/dL [facility] Spec Grav, UA 1.02 1 - 1.03 [facility] Urobilinogen, UA 0.2 0.2 - 12 mg/dL [facility] RECURRENT VAGINITIS (HTRX)on 09-29-2024 ATOPOBIUM VAGINAE 0 [facility] ATOPOBIUM VAGINAE Not detected [facility] BVAB 2,3 (BACTERIAL VAGINOSIS ASSOCIATED BACTERIA 2, 3); MOBILUNCUS SPP 0 [facility] BVAB 2,3 (BACTERIAL VAGINOSIS ASSOCIATED BACTERIA 2, 3); MOBILUNCUS SPP Not detected [facility] EBONIE ALBICANS, PARAPSILOSIS, TROPICALIS 27.336 Abnormal [facility] EBONIE ALBICANS, PARAPSILOSIS, TROPICALIS Detected Abnormal [facility] EBONIE GLABRATA 0 [facility] EBONIE GLABRATA Not detected [facility] EBONIE KRUSEI 0 [facility] EBONIE KRUSEI Not detected [facility] CHLAMYDIA TRACHOMATIS 0 [facility] CHLAMYDIA TRACHOMATIS Not detected N [facility] GARDNERELLA VAGINALIS 0 [facility] GARDNERELLA VAGINALIS Not detected N [facility] Interpretation and review of laboratory results Abnormal [facility] MEGASPHAERA (TYPES 1, 2) 0 [facility] MEGASPHAERA (TYPES 1, 2) Not detected [facility] MYCOPLASMA GENITALIUM 0 [facility] MYCOPLASMA GENITALIUM Not detected N [facility] NEISSERIA GONORRHOEAE 0 [facility] NEISSERIA GONORRHOEAE Not detected N [facility] TRICHOMONAS VAGINALIS 0 [facility] TRICHOMONAS VAGINALIS Not detected N [facility] Urinalysis macro (dipstick) panel (U)on 09-27-2024 Bilirubin, UA Negative Negative - 4(70) +++ mg/dL [facility] Blood, UA Negative Negative - 50 Gabriel/mcL [facility] Clarity, UA Clear [facility] Color, UA Yellow [facility] Glucose, UA Negative Negative - 1999(110) ++++ mg/dL [facility] Interpretation and review of laboratory results Normal [facility] Ketones, UA Negative Negative - 160(16) ++++ mg/dL [facility] Leukocytes, UA Negative Negative - 500+++ Sebastián/mcL [facility] Nitrite, UA Negative Negative - Positive [facility] pH, UA 7 5 - 9 [facility] Protein, UA Negative Negative - 2000(20) ++++ mg/dL [facility] Spec Grav, UA 1.015 1 - 1.03 [facility] Urobilinogen, UA 0.2 0.2 - 12 mg/dL [facility] US for pregnancyon Interpreted by: Doretha [...] EFW (oz) 4 oz EFW by: Hadlock (GXX-NX-GB-FL) Head / Face / Neck Cephalic index 0.71 <1% Nicolaides Extremities / Bony Struc FL / BPD 0.54 14% Hadlock FL / HC 0.14 5% Hadlock FL / AC 0.16 1% Hadlock Other Structures FHR 150 bpm Anatomy Heart: Normal Goshen and Situs. Stomach: Visible, with correct situs. Arms: Both Upper Extremities Seen. Legs: Both Lower Extremities Seen. The following structures appear normal: Cranium. Head size. Head shape. Brain. Right choroid plexus. Left choroid plexus. Midline falx. Thalami. Cerebellum. Face. Profile. Cardiac axis. 4-chamber view. 1-gwwzyb-spagpcx view. Thorax. Diaphragm. Abdominal wall. Cord insertion. [...] Suspect Anomaly History ====== General History Smoking:No Mgbvsi414 cm Height (ft)5 ft Height (in)6 in Previous Outcomes Gravida3 Para2 Children born living ?37w1 Pregnancies delivered at term (T)1 Pregnancies delivered (P)1 Living children (L)2 Children born living <37w1 Other:Previous Section x2 Maternal Assessment Ewyewk760 cm Height (ft)5 ft Height (in)6 in Nyxjjv56 kg Weight (lb)155 lb Weight gain0 kg Weight gain (lb)0 lb BMI25.02 kg/m Physical Exam Initial weight (lb)155 lb ========= Prakash . Number of fetuses: 1 Dating ====== Prior assessment by:per outside ultrasound GA by prior uiizpyswef10 w + 6 d OTF by prior [...] 24% Hadlock HC / AC1.19 31% Hadlock NHH194 g14w 4d 35% Hadlock EFW (lb)0 lb EFW (oz)4 oz EFW by:Hadlock (DWG-QK-VG-FL) Head / Face / Neck Cephalic index0.71 <1% Nicolaides Extremities / Bony Struc FL / BPD0.54 14% Hadlock FL / HC0.14 5% Hadlock FL / AC0.16 1% Hadlock Other Structures FFC219 bpm Anatomy Heart: Normal Gos[place] and Situs. Stomach: Visible, with correct situs. Arms: Both Upper Extremities Seen. Legs: Both Lower Extremities Seen. The following structures appear normal: Cranium. Head size. Head shape. Brain. Right choroid plexus. Left choroid plexus. Midline falx. Thalami. Cerebellum. Face. Profile. Cardiac axis. 4-chamber view. 1-lzebpv-fapxgta view. Thorax. Diaphragm. Abdominal wall. Cord insertion. Large bowel. Right kidney. Left kidney. Bladder. The following structures could not be adequately visualized: Spine. sex: female Maternal Structures Uterus / Cervix Uterus:Normal Cervix:Visualized Cervix details:Normal Cervical wgxlce22.3 mm Ovaries / Tubes / Adnexa Rt ovary:Visualized Rt ovary details:Normal Rt ovary D125.0 mm Rt ovary D220.9 mm Rt ovary D320.0 mm Rt ovary Vol5.5 cm Lt ovary:Visualized Lt ovary details:Normal Lt ovary D129.4 mm Lt ovary D234.0 mm Lt ovary D315.1 mm Lt ovary Vol7.9 cm Method ====== Transabdominal ultrasound examination. View: Suboptimal view: limited by early gestational age [facility] Work Phone: Source Facility: [facility] Interpreted by: Doretha Marie Indication ======== Suspect [...] EFW (oz) 4 oz EFW by: Hadlock (FRC-FA-NB-FL) Head / Face / Neck Cephalic index 0.71 <1% Nicolaides Extremities / Bony Struc FL / BPD 0.54 14% Hadlock FL / HC 0.14 5% Hadlock FL / AC 0.16 1% Hadlock Other Structures FHR 150 bpm Anatomy Heart: Normal [place] and Situs. Stomach: Visible, with correct situs. Arms: Both Upper Extremities Seen. Legs: Both Lower Extremities Seen. The following structures appear normal: Cranium. Head size. Head shape. Brain. Right choroid plexus. Left choroid plexus. Midline falx. Thalami. Cerebellum. Face. Profile. Cardiac axis. 4-chamber view. 4-klflsw-evhlgcc view. Thorax. Diaphragm. Abdominal wall. Cord insertion. [...] age Radiology, Radiologist, - 08/16/2024 Source Facility: [facility] Interpreted by: Doretha Marie Indication ======== Suspect [...] EFW (oz) 4 oz EFW by: Hadlock (ODW-VO-GB-FL) Head / Face / Neck Cephalic index 0.71 <1% Nicolaides Extremities / Bony Struc FL / BPD 0.54 14% Hadlock FL / HC 0.14 5% Hadlock FL / AC 0.16 1% Hadlock Other Structures FHR 150 bpm Anatomy Heart: Normal [place] and Situs. Stomach: Visible, with correct situs. Arms: Both Upper Extremities Seen. Legs: Both Lower Extremities Seen. The following structures appear normal: Cranium. Head size. Head shape. Brain. Right choroid plexus. Left choroid plexus. Midline falx. Thalami. Cerebellum. Face. Profile. Cardiac axis. 4-chamber view. 3-crhtuo-arqjnue view. Thorax. Diaphragm. Abdominal wall. Cord insertion. [...] Suboptimal view: limited by early gestational age [facility] Radiology Study observation (narrative) [facility] Work Phone: Radiology Study observation (narrative) [facility] US for pregnancyOrdered By: Doretha Marie on 08-16-2024 [facility] Work Phone: US for pregnancyOrdered By: Radiologist Radiology on 08-16-2024 [facility] Work Phone: Urinalysis macro (dipstick) panel (U)on 08-01-2024 Bilirubin, UA Negative Negative - 4(70) +++ mg/dL [facility] Blood, UA Negative Negative - 50 Gabriel/mcL [facility] Clarity, UA Clear [facility] Color, UA Yellow [facility] Glucose, UA Negative Negative - 2000(110) ++++ mg/dL [facility] Interpretation and review of laboratory results Normal [facility] Ketones, UA Negative Negative - 160(16) ++++ mg/dL [facility] Leukocytes, UA Negative Negative - 500+++ Sebastián/mcL [facility] Nitrite, UA Negative Negative - Positive [facility] pH, UA 7 5 - 9 [facility] Protein, UA Negative Negative - 2000(20) ++++ mg/dL [facility] Spec Grav, UA 1.02 1 - 1.03 [facility] Urobilinogen, UA 0.2 0.2 - 12 mg/dL [facility] BOX TESTon 07-07-2024 BOX TEST SENT OUT [facility] BOX1 [facility] BOX2 07/07/24 [facility] BOX [facility] US OB TRANSVAGINALon 025 US OB TRANSVAGINAL [...] II, MD, PHD at 02-Jul-2024 09:14:34 AM [facility] Normal Not Available Comment on above: Order Comment: US OB TRANSVAGINAL No LMP recorded. ED Clinical Summaryon 2023 ED Clinical Summary ED Clinical Summary [place] [address] ED Clinical Summary Person Information Name: ANAND HERRERA [facility] Age: 23 Years : 2000 Sex: Female Language: Citizen Of [place] PCP: Kathy Mccall DO Marital Status: Single Phone: [phone] Visit Id: Visit Reason: Ear pain; RIGHT [...] 04/19/2024 01:34:08 04/19/2024 01:34:08 04/19/2024 01:34:08 ADDRESS: [address] [place] [id number] PHYS DOC NOTES: MEDICAL INFORMATION: Prescriptions Given: [...] When: Kathy Montenegro, Chauncey C, [address] [place] [address] Business (1) In 3 days 04/22/2024 Comments: Return to the emergency room if your pain recurs or any new symptoms. DIAGNOSIS: 1:Ear pain, right; 2:Upper respiratory infection Normal [facility] ED Note-Physicianon 04-19-20 ED Note-Physician ED Note-Physician [...] and Complexity of Problems Differential Diagnosis: [] [facility] Data External documents reviewed: [] My [...] home. She was instructed to take decongestion thvg-kcr-mzgtdbl. 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 Living situation: Home/Independent. Alcohol abuse in household: No. Substance abuse in household: No. Smoker in household: No., (more content not included)... Normal [facility] Comment on above: Result Comment: Elec tronically Signed By: Amos Espinoza M.D.\.br\Date and Time Signed: 04/19/24 03:09 EST ED Patient Summaryon 024 ED Patient Summary ED Patient Summary [place] [id number] Patient Discharge Instructions Person Information Name: ANAND HERRERA Age: 23 Years Arrival Date: 04/19/2024 01:04:22 Discharge Diagnosis: 1:Ear pain, right; 2:Upper respiratory infection Primary Care Physician: Kathy Mccall DO Provider Information Primary Provider: Amos Espinoza M.D. Advanced Knowledge Management Advisor:None The exam and treatment you received in the Emergency Department were for an urgent problem and are not intended as complete care. It is important that you follow up with a doctor, nurse practitioner, or physician???s certified physical therapist assistant for ongoing care. If [...] Kathy Villanuevadielissa Montenegro, [address], [address] [place] [address] Business (1) In 3 days 04/22/2024 Comments: [...] opioids can be used to help relieve vlqqxlpc-cn-xhcjkl pain and are often prescribed following a [...] to learn (more content not included)... Normal [facility] IGP,APTIMA HPV,AGE GDLNon AGE GDLN ACOG TESTING Note . [facility] Comment on above: TESTS RESULT FLAG UN ITS REF RANGE LAB Clinician Provided Cytology Information Source.............Cervix;Endocervix No. of containers..01 ThinPrep Vial Age Algo ACOG Magdalene... FLAG LEGEND: L-Low Normal,H-High Normal,LL-Alert Low,HH-Alert High <-Panic Low,>-Panic High,A-Abnormal,AA-Critical Abnormal Performed at: 01 =G [facility] [address] [place] [address] Clara Castro MD, IGP, RFX APTIMA HPV ASCU Note . [facility] Comment on above: TESTS RESULT FLAG UN ITS REF RANGE LAB DIAGNOSIS: 02 NEGATIVE FOR INTRAEPITHELIAL LESION OR MALIGNANCY. Specimen adequacy: 02 Satisfactory for evaluation. Endocervical and/or squamous metaplastic cells (endocervical component) are present. Performed by: India Platt, Manager Critical Care ([facility]) . 02 Note: Note 02 The Pap smear is a screening test designed to aid in the detection of premalignant and malignant conditions of the uterine cervix. It is not a diagnostic procedure and should not be used as the sole means of detecting cervical cancer. Both false-positive and false-negative reports do occur. Test Methodology: Note 02 The to[employer] Manager was unable to read this specimen. Therefore a manual review was performed. FLAG LEGEND: L-Low Normal,H-High Normal,LL-Alert Low,HH-Alert High <-Panic Low,>-Panic High,A-Abnormal,AA-Critical Abnormal Performed at: [address] [address] Clara Castro MD, . 02 The HPV DNA reflex criteria were not met with this specimen result therefore, no HPV testing was performed. The HPV DNA reflex criteria were not met with this specimen result therefore, no HPV testing was performed. Performed at: =[address] [id number] Percussion Instrument Repairer: Clara Castro MD, Phone: [phone] Performed at: [address] [id number] Percussion Instrument Repairer: Clara Castro MD, Phone: [phone] BRUSH-SPATULA CERVIX ENDOCERVIX [facility] OB Completed scan + Detailed Anatomyon 11-10-2022 [...] EFW (oz) 10 oz EFW by: Hadlock ([id number]) Extended Hand Winder 7.6 mm CM 4.4 mm 35% Nicolaides [...] Normal LVOT view: Normal 3-vessel view: Normal 8-gawmnh-ljhnoat view: Normal Heart / Thorax Situs: situs [...] know sex (more content not included)... Normal [facility] OB NT (Nuchal Translucency)o n 09-26-2022 OB [...] gestational sac with a live fetus - Jenkins rump length is consistent with given OTF [...] Extended Nasal bone: present Anatomy Heart: Normal [place] and Situs. Stomach: Visible, with correct situs. [...] Electronically signed by: JESS FELDMAN MD Normal [facility] HEP B SURFACE ANTIGEN SCREEN on 09-05-2022 HBsAg Screen Negative Normal Negative [facility] Comment on above: Performed By: #### H BSANS #### [facility] [address] [place] [address] Dr. Stoney Rodriguez HEPATITIS C VIRUS AB W/ REFL EX QUANTon 09-05-2022 HCV AB Non-Reactive Normal Non Reactive [facility] Comment on above: Performed By: #### H CVPCRR #### [facility] [address] [place] [address] Dr. Stoney Rodriguez Interpretation: Comment Normal [facility] Comment on above: Result Comment: Not infected with HCV unless early or acute infection is suspected (which may be delayed in an immunocompromised individual), or other evidence exists to indicate HCV infection. Performed By: #### H CVPCRR #### [facility] [address] [place] [address] Dr. Stoney Rodriguez HIV 1 AND 2 WITH REFLEXon HIV Screen 4th Generation wRfx Non-Reactive Normal Non Reactive [facility] Comment on above: Result Comment: HIV Negative HIV-1/HIV-2 antibodies and HIV-1 p24 antigen were NOT detected. There is no laboratory evidence of HIV infection. Performed By: #### T NS #### [facility] [address] [place] [address] Dr. Stoney Rodriguez RPR QUANTon 09-05-2022 Rapid Plasma Reagin, Quant Non-Reactive Normal NonRea<1:1 [facility] Comment on above: Result Comment: Plea Note: This test does not meet current guidelines for screening and diagnosis of syphilis. This test is intended for following treatment response in patients being treated for syphilis infection. To screen for syphilis infection, a reflex cascade that includes both RPR and a treponema-specific assay should be utilized, such as Treponema pallidum (Syphilis) Screening [place] (251351) or Rapid Plasma Reagin (RPR) Test With Reflex to Quantitative RPR and Confirmatory Treponema pallidum Antibodies (699954). Performed By: #### R PRQ #### [facility] [address] [place] [address] Dr. Stoney Rodriguez RUBELLA AB IGGon 09-05-2022 Rubella Antibodies, IgG 11.40 index Normal Immune >0.99 [facility] Comment on above: Result Comment: Non- immune <0.90 Equivocal 0.90 - 0.99 Immune >0.99 Performed By: #### R UBIGG #### [facility] [address] [place] [address] Dr. Stoney Rodriguez BOX TEST SENT OUTon 09-05-19 SENT TO REF LAB 09/04/22 Normal [facility] Comment on above: Performed By: #### B OX #### [facility] [address] [place] [address] Dr. Stoney Rodriguez CBC AUTO DIFFon 09-04-2022 BASO # 0.0 103/ul Normal 0.0-0.1 [facility] Comment on above: Performed By: #### C BC #### [facility] [address] [place] [address] Dr. Stoney Rodriguez Basophils/100 WBC (Bld) 0.4 % Normal 0.2-2.0 [facility] Comment on above: Performed By: #### C BC #### [facility] [address] [place] [address] Dr. Stoney Rodriguez EO # 0.1 103/ul Normal 0.0-0.7 [facility] Comment on above: Performed By: #### C BC #### [facility] [address] [place] [address] Dr. Stoney Rodriguez Eosinophils/100 WBC (Bld) 0.7 % Critically low 0.9-7.0 [facility] Comment on above: Performed By: #### C BC #### [facility] [address] [place] [address] Dr. Stoney Rodriguez Erythrocyte distribution width (RBC) [Ratio] 14.5 % Normal 11.0-15.0 [facility] Comment on above: Performed By: #### C BC #### [facility] [address] [place] [address] Dr. Stoney Rodriguez Hematocrit (Bld) [Volume fraction] 36.7 % Normal 36.0-48.0 [facility] Comment on above: Performed By: #### C BC #### [facility] [address] [place] [address] Dr. Stoney Rodriguez Hemoglobin (Bld) [Mass/Vol] 11.9 g/dL Critically low 12.0-16.0 [facility] Comment on above: Performed By: #### C BC #### [facility] [address] [place] [address] Dr. Stoney Rodriguez IG # 0.03 10e3/ul Normal 0.00-0.03 [facility] Comment on above: Performed By: #### C BC #### [facility] [address] [place] [address] Dr. Stoney Rodriguez IG % 0.4 % Normal 0.0-0.5 [facility] Comment on above: Performed By: #### C BC #### [facility] [address] [place] [address] Dr. Stoney Rodriguez LYMPH # 2.0 103/ul Normal 1.2-3.8 [facility] Comment on above: Performed By: #### C BC #### [facility] [address] [place] [address] Dr. Stoney Rodriguez Lymphocytes/100 WBC (Bld) 23.3 % Normal 20.5-60.0 [facility] Comment on above: Performed By: #### C BC #### [facility] [address] [place] [address] Dr. Stoney Rodriguez MANUAL DIFF REQ NO Normal [facility] Comment on above: Performed By: #### C BC #### [facility] [address] [place] [address] Dr. Stoney Rodriguez MCH (RBC) [Entitic mass] 28.7 pg Normal 26.7-34.0 [facility] Comment on above: Performed By: #### C BC #### [facility] [address] [place] [address] Dr. Stoney Rodriguez MCHC (RBC) [Mass/Vol] 32.4 g/dL Normal 29.9-35.2 [facility] Comment on above: Performed By: #### C BC #### [facility] [address] [place] [address] Dr. Stoney Rodriguez MCV (RBC) [Entitic vol] 88.6 fL Normal 81.0-99.0 [facility] Comment on above: Performed By: #### C BC #### [facility] [address] [place] [address] Dr. Stoney Rodriguez MONO # 0.5 103/ul Normal 0.3-0.8 [facility] Comment on above: Performed By: #### C BC #### [facility] [address] [place] [address] Dr. Stoney Rodriguez Monocytes/100 WBC (Bld) 6.2 % Normal 1.7-12.0 [facility] Comment on above: Performed By: #### C BC #### [facility] [address] [place] [address] Dr. Stoney Rodriguez NEUT # 5.9 103/ul Normal 1.4-6.5 [facility] Comment on above: Performed By: #### C BC #### [facility] [address] [place] [address] Dr. Stoney Rodriguez Neutrophils/100 WBC (Bld) 69.0 % Normal 43.0-75.0 [facility] Comment on above: Performed By: #### C BC #### [facility] [address] [address] [address] Stoney Rodriguez Platelet mean volume (Bld) [Entitic vol] 9.7 fL Normal 9.5-13.5 [facility] Comment on above: Performed By: #### C BC #### [facility] [address] [address] [address] Stoney Rodriguez PLT 378 103/ul Normal 150-450 [facility] Comment on above: Performed By: #### C BC #### [facility] [address] [address] [address] Stoney Rodriguez RBC 4.14 106/ul Critically low 4.20-5.40 [facility] Comment on above: Performed By: #### C BC #### [facility] [address] [address] [address] Stoney Rodriguez WBC 8.5 103/ul Normal 4.0-11.0 [facility] Comment on above: Performed By: #### C BC #### [facility] [address] [address] [address] Stoney Rodriguez CULTURE URINEon 09-04-2022 CULTURE URINE Culture Observations : NO GROWTH. Normal [facility] Comment on above: Performed By: #### U RCX #### [facility] [address] [address] [address] Stoney Rodriguez GLYCOHEMOGLOBIN A1Con 2022 ADA RECOMMENDATION SEE BELOW Normal [facility] Comment on above: Result Comment: ADA RECOMMENDED LIMIT 4.0 - 6.0 ADA THERAPEUTIC TARGET < 7.0 ACTION SUGGESTED > 7.0 Performed By: #### A 1C #### [facility] [address] [address] [address] Stoney Rodriguez Glucose [Mass/Vol] 94 mg/dL Normal [facility] Comment on above: Performed By: #### A 1C #### [facility] [address] [place] [address] Dr. Stoney Rodriguez HbA1c (Bld) [Mass fraction] 4.9 % Normal 4.5-6.2 [facility] Comment on above: Performed By: #### A 1C #### [facility] [address] [address] [address] Stoney Rodriguez TSHon 09-04-2022 TSH 0.653 uIU/mL Normal 0.358-3.740 [facility] Comment on above: Performed By: #### T SH #### [facility] [address] [address] [address] Stoney Rodriguez TYPE AND SCREENon 09-04-2022 TYPE AND SCREEN Negative Normal [facility] Comment on above: Performed By: #### T NS #### [facility] [address] [address] [address] Stoney Rodriguez US PREG TVon 08-14-2022 [...] BILLIE SMITH Date: 2022-08-14 16:07 Normal [facility] CHEMISTRYOrdered By: Ida Mcfarland on 12-19-2021 Anion [...] ratio] 20 mg/mg Normal 10 - 20 [facility] Remisol CHEMISTRYOrdered By: SYSTEM SYSTEM on 12-19-2021 GFR/1.73 sq M.predicted among blacks MDRD (S/P/Bld) [Vol rate/Area] mL/min/1.73 m2 Normal >=59mL/min/1 .73 m2 [facility] Chem S GFR/1.73 sq M.predicted among non-blacks MDRD (S/P/Bld) [Vol rate/Area] mL/min/1.73 m2 Normal >=59mL/min/1 .73 m2 [facility] Chem S COAGULATIONOrdered By: Randall Mcfarland on 12-19-2021 aPTT Coag (PPP) [Time] 30.1 s Normal 25.1 - 36.5 second(s) [facility] Auto Coag INR Coag (PPP) [Relative time] 0.9 {INR} Invalid Interpretation Code [facility] Auto Coag PT Coag (PPP) [Time] 9.9 s Normal 9.4 - 1 2.5 second(s) [facility] Auto Coag HEMATOLOGYOrdered By: SYSTEM SYSTEM on [...] hCG Ql Negative (12/19/21 2:12 AM) Normal [facility] Man Sero CULTURE URINEon 04-28-2020 CULTURE URINE [...] <= 1 S Amikacin(JAI) 4 S Normal [facility] Comment on above: Performed By: #### C /UR ####[facility] [place] [address] [place], [place] [id number] Culture, Urineon 04-28-2020 Bacteria identified Cx Nom (U) 10,000-50,000 CFU/ml [facility] [place], [place] Bacteria identified Cx Nom (U) Normal urogenital praneeth present. Abnormal [facility], [place] Bacteria identified Cx Nom (U) Escherichia coli Abnormal [place], [place] Interpretation and review of laboratory results Abnormal [place], [place] Test Performed by [facility], [address] [place] [address] [place] Hemoglobinon 04-27-2020 Hemoglobin (Bld) [Mass/Vol] 7.1 g/dL Low 11.7-16.0 [facility] Comment on above: Performed By: #### H EMGB #### [facility] [address] [place] [address] Hemoglobin (Bld) [Mass/Vol] 7.1 g/dL Low 11.7 - 16 g/dL [place], [place] Interpretation and review of laboratory results Abnormal [place] Test Performed by [facility], [address] [place] [id number] [place] [address] Group B Strep Screen PCRon Group B [...] Methodology - Real Time PCR (Cepheid) Normal [facility] Comment on above: Performed By: #### G BSPC ####[facility] [place] [address] Group B Strep, PCRon 020 Group B Strep Screen PCR NEGATIVE Expected Result: Negative CDC guidelines for prevention of Group B Strep disease recommends collection of both vaginal and rectal specimens for optimal recovery of GBS. Methodology - Real Time PCR (Cepheid) [place], [place] Test Performed by [facility], [address] [place] [id number] [place] [address] Op Noteon 04-26-2020 Op Note PATIENT: ANAND [...] She also did have a TAP block. Resource Conservation Specialist: Dr. Benjamin. Replacement: 1500 cc of crystalloid. [...] 1500 cc of crystalloid. Diskriter Job ID: [id number] Zac Chowdhury MD DOD:04/26/2020 07:56 A JAKUB/kimmy DOT:04/26/2020 10:55 A Job Number: [id number] Document Number: [id number] cc: [place] [address] [place] [address]. Formerly [facility], [facility] [address] Fariha Matos, [facility] [address] Formerly [facility], [facility] [address] [facility] C. Trachomatis / N. Gonorrho eae, DNA Probeon 04-25-2020 C. trachomatis DNA ARCHANA+probe Ql (Genital specimen) NOT Detected Chlamydia trachomatis Nucleic Acid NOT Detected by DNA Amplification using the [employer] System. Culture is the only recommended test in medical-legal cases such as suspected child abuse or molestation. [place], [place] N. gonorrhoeae DNA ARCHANA+probe Ql (Unsp spec) NOT Detected Neisseria gonorrhoeae Nucleic Acid NOT Detected by DNA Amplification using the [employer] System. Culture is the only recommended test in medical-legal cases such as suspected child abuse or molestation. [place], [place] Test Performed by [facility], [address] [place] [id number] [place], [place] CBCon 04-25-2020 Erythrocyte distribution width (RBC) [Ratio] 18.2 % High 11.5 - 14.5 % [place] Hematocrit (Bld) [Volume fraction] 30.6 % Low 35 - 47 % [place] Hemoglobin (Bld) [Mass/Vol] 9.7 g/dL Low 11.7 - 16 g/dL [place] Interpretation and review of laboratory results Abnormal [place] MCH (RBC) [Entitic mass] 26.2 pg 26 - 34 pg [place] MCHC (RBC) [Mass/Vol] 31.9 % Low 32 - 36 % [place], [place] MCV (RBC) [Entitic vol] 82.2 fL 79 - 98 fL [place], [place] Platelet mean volume (Bld) [Entitic vol] 8.1 fL 7.4 - 10.4 fL [place] Platelets (Bld) [#/Vol] 249 10*3/uL 140 - 440 10*3/uL [place] RBC (Bld) [#/Vol] 3.72 10*6/uL Low 3.8 - 5.2 10*6/uL [place] WBC (Bld) [#/Vol] 13.3 10*3/uL High 3.6 - 10.7 10*3/uL [place] Test Performed by [facility], [address] [place] [address] [place], [place] CREATININE, RANDOM URINEon Creatinine (U) [Mass/Vol] 66.8 mg/dL No Range [facility] [place], [place] Chlamydia and GC PCR Panelon [...] as suspected child abuse or molestation. Normal [facility] Comment on above: Performed By: #### C TNGP ####[facility] [place], [place] Comp Metabolic Panelon 04-25 Calcium [Mass/Vol] 8.5 mg/dL Normal 8.4-10.4 [facility] Comment on above: Performed By: #### P T/AP, CMP3, HEMOG, FIBGN #### [facility] [address] [place], [place] Glucose [Mass/Vol] 97 mg/dL Normal 70-100 [facility] Comment on above: Performed By: #### P T/AP, CMP3, HEMOG, FIBGN #### [facility] [address] [place], [place] ALP [Catalytic activity/Vol] 114 U/L Normal 38-126 [facility] Comment on above: Result Comment: Slig htly hemolysed, interpret with caution. Performed By: #### P T/AP, CMP3, HEMOG, FIBGN #### [facility] [address] [place], [place] ALT [Catalytic activity/Vol] 19 U/L Normal 0-34 [facility] Comment on above: Result Comment: The ALT test is performed by an updated assay method. Please note that the reference intervals have been changed and are now sex specific. Performed By: #### P T/AP, CMP3, HEMOG, FIBGN #### [facility] [address] [place], [place] Anion Gap 6 Normal [facility] Comment on above: Performed By: #### P T/AP, CMP3, HEMOG, FIBGN #### [facility] [address] [place], [place] AST [Catalytic activity/Vol] 39 U/L Normal 15-46 [facility] Comment on above: Result Comment: Slig htly hemolysed, interpret with caution. Performed By: #### P T/AP, CMP3, HEMOG, FIBGN #### [facility] [address] [place], [place] Bilirubin [Mass/Vol] 0.5 mg/dL Normal 0.2-1.3 [facility] Comment on above: Performed By: #### P T/AP, CMP3, HEMOG, FIBGN #### [facility] [address] [place], [place] CO2 [Moles/Vol] 20 mmol/L Low 22-30 [facility] Comment on above: Performed By: #### P T/AP, CMP3, HEMOG, FIBGN #### [facility] [address] [place], [place] Creatinine [Mass/Vol] 0.63 mg/dL Normal 0.52-1.25 [facility] Comment on above: Performed By: #### P T/AP, CMP3, HEMOG, FIBGN #### [facility] [address] [place], [place] eGFR OTHER > 90.0 Normal >60 [facility] Comment on above: Result Comment: KDIG [...] #### P T/AP, CMP3, HEMOG, FIBGN #### [address] [address] [address] [place], [place] GFR/1.73 sq M.predicted among blacks MDRD (S/P/Bld) [Vol rate/Area] mL/min/{1.73_m2} Normal >60 [facility] Comment on above: Performed By: #### P T/AP, CMP3, HEMOG, FIBGN #### [address] [address] [address] [place], [place] Protein [Mass/Vol] 6.9 g/dL Normal 6.3-8.2 [facility] Comment on above: Performed By: #### P T/AP, CMP3, HEMOG, FIBGN #### [address] [address] [address] [place], [place] Urea nitrogen [Mass/Vol] 14 mg/dL Normal 7-20 [facility] Comment on above: Performed By: #### P T/AP, CMP3, HEMOG, FIBGN #### [address] [address] [address] [place], [place] Potassium [Moles/Vol] 4.3 mmol/L Normal 3.5-5.1 [facility] Comment on above: Result Comment: Slig htly hemolysed, interpret with caution. Performed By: #### P T/AP, CMP3, HEMOG, FIBGN #### [address] [address] [address] [place], [place] Sodium [Moles/Vol] 134 mmol/L Low 135-145 [facility] Comment on above: Performed By: #### P T/AP, CMP3, HEMOG, FIBGN #### [facility] [address] [place] [address] Albumin [Mass/Vol] 3.4 g/dL Low 3.5-5.0 [facility] Comment on above: Performed By: #### P T/AP, CMP3, HEMOG, FIBGN #### [facility] [address] [place] [address] Chloride [Moles/Vol] 107 mmol/L Normal 98-107 [facility] Comment on above: Performed By: #### P T/AP, CMP3, HEMOG, FIBGN #### [facility] [address] [place] [address] Comprehensive Metabolic Pane parag 04-25-2020 Albumin [Mass/Vol] 3.4 g/dL Low 3.5 - 5 g/dL [place], [place] ALP [Catalytic activity/Vol] 114 U/L 38 - 126 U/L [place], [place] Comment on above: Slightly hemolysed, interpret with caution. ALT [Catalytic activity/Vol] 19 U/L 0 - 34 U/L [place] Comment on above: The ALT test is perf ormed by an updated assay method. Please note that the reference intervals have been changed and are now sex specific. Anion gap [Moles/Vol] 6 mmol/L [place], [place] AST [Catalytic activity/Vol] 39 U/L 15 - 46 U/L [place] Comment on above: Slightly hemolysed, interpret with caution. Bilirubin Ql (U) 0.5 mg/dL 0.2 - 1.3 mg/dL [place] Calcium [Mass/Vol] 8.5 mg/dL 8.4 - 10. 4 mg/dL [place] Chloride [Moles/Vol] 107 mmol/L 98 - 10 7 mmol/L [place] CO2 [Moles/Vol] 20 mmol/L Low 22 - 30 mmol/L [place] Creatinine [Mass/Vol] 0.63 mg/dL 0.52 - 1.25 mg/dL [place], [place] EGFR IF NonAfrican Stateless >90.0 >60 mL/min [place] Comment on above: KDIGO guidelines pro [...] MDRD (S/P/Bld) [Vol rate/Area] mL/min/{1.73_m2} >60 mL/min [place] Glucose [Mass/Vol] 97 mg/dL 70 - 100 mg/dL [place] Interpretation and review of laboratory results Abnormal [place] Potassium [Moles/Vol] 4.3 mmol/L 3.5 - 5.1 mmol/L [place] Comment on above: Slightly hemolysed, interpret with caution. Protein [Mass/Vol] 6.9 g/dL 6.3 - 8.2 g/dL [place] Sodium [Moles/Vol] 134 mmol/L Low 135 - 145 mmol/L [place] Urea nitrogen [Mass/Vol] 14 mg/dL 7 - 20 mg/dL [place] Creatinine, Ur Randomon 03-29 Creatinine, Ur Random 66.8 mg/dL Normal No Range [facility] Comment on above: Performed By: #### C RTUR, TPUR, MAT #### [facility] [address] [place] [address] Fibrinogenon 04-25-2020 Fibrinogen 390 mg/dL Normal 200-400 [place] Comment on above: Performed By: #### P T/AP, CMP3, HEMOG, FIBGN #### [address] [address] [address] [place], [place] Hemogramon 04-25-2020 Erythrocyte distribution width (RBC) [Ratio] 18.2 % High 11.5-14.5 [facility] Comment on above: Performed By: #### P T/AP, CMP3, HEMOG, FIBGN #### [place] [address], [place] Hematocrit (Bld) [Volume fraction] 30.6 % Low 35.0-47.0 [facility] Comment on above: Performed By: #### P T/AP, CMP3, HEMOG, FIBGN #### [place] [address] [place], [place] Hemoglobin (Bld) [Mass/Vol] 9.7 g/dL Low 11.7-16.0 [facility] Comment on above: Performed By: #### P T/AP, CMP3, HEMOG, FIBGN #### [place] [address], [place] MCH (RBC) [Entitic mass] 26.2 pg Normal 26.0-34.0 [facility] Comment on above: Performed By: #### P T/AP, CMP3, HEMOG, FIBGN #### [address] MCHC 31.9 % Low 32.0-36.0 [facility] Comment on above: Performed By: #### P T/AP, CMP3, HEMOG, FIBGN #### [place] [address], [place] MCV (RBC) [Entitic vol] 82.2 fL Normal 79.0-98.0 [facility] Comment on above: Performed By: #### P T/AP, CMP3, HEMOG, FIBGN #### [address] Platelet mean volume (Bld) [Entitic vol] 8.1 fL Normal 7.4-10.4 [facility] Comment on above: Performed By: #### P T/AP, CMP3, HEMOG, FIBGN #### [place] [address], [place] Platelets (Bld) [#/Vol] 249 10*3/uL Normal 140-440 [facility] Comment on above: Performed By: #### P T/AP, CMP3, HEMOG, FIBGN #### [place] [address], [place] RBC (Bld) [#/Vol] 3.72 10*6/uL Low 3.80-5.20 [facility] Comment on above: Performed By: #### P T/AP, CMP3, HEMOG, FIBGN #### [place] [address], [place] WBC (Bld) [#/Vol] 13.3 10*3/uL High 3.6-10.7 [facility] Comment on above: Performed By: #### P T/AP, CMP3, HEMOG, FIBGN #### [place] [address] [address], [place] Medication Assisted Treatmen t Panelon 04-25-2020 Fentanyl Negative Normal [facility] Comment on above: Performed By: #### C RTUR, TPUR, MAT #### [place] [address] [address], [place] Amphetamines Ql (U) Negative Normal [facility] Comment on above: Performed By: #### C RTUR, TPUR, MAT #### [place] [address] [address], [place] Barbiturates Negative Normal [facility] Comment on above: Performed By: #### C RTUR, TPUR, MAT #### [place] [address], [place] Benzodiazepines Ql (U) Negative Normal [facility] Comment on above: Performed By: #### C RTUR, TPUR, MAT #### [place] [address], [place] Buprenorphine Screen Negative Normal [facility] Comment on above: Performed By: #### C RTUR, TPUR, MAT #### [place] [address] [address], [place] Cocaine Ql (U) Negative Normal [facility] Comment on above: Performed By: #### C RTUR, TPUR, MAT #### [facility] [address], [place] Ethanol [Mass/Vol] Negative Normal [facility] Comment on above: Performed By: #### C RTUR, TPUR, MAT #### [facility] [address], [place] Methadone Ql (U) Negative Normal [facility] Comment on above: Performed By: #### C RTUR, TPUR, MAT #### [facility] [address], [place] Opiates Ql (U) Negative Normal [facility] Comment on above: Performed By: #### C RTUR, TPUR, MAT #### [facility] [address], [place] Oxycodone/Oxymorphone Negative Normal [facility] Comment on above: Performed By: #### C RTUR, TPUR, MAT #### [facility] [address], [place] PCP Negative [facility] Comment on above: Performed By: #### C RTUR, TPUR, MAT #### [facility] [address], [place] THC Negative [facility] Comment on above: Performed By: #### C RTUR, TPUR, MAT #### [facility] [address], [place] Amphetamines Ql (U) Negative [facility] [place] [place] Benzodiazepines Ql (U) Negative [facility] [place] [place] Cocaine Ql (U) Negative [facility] [place] [place] Ethanol [Mass/Vol] Negative [facility] [place] Methadone Ql (U) Negative [facility] [place] [place] Opiates Ql (U) [...] performed using non-forensic procedures. Test Performed by [address], [place] MAT Panel Test Comment See Below Normal [facility] Comment on above: Result Comment: The expected [...] By: #### C RTUR, TPUR, MAT #### [place] [address] [place] [address] Metabolic Panelon 04-25-2020 Sodium [Moles/Vol] Negative [facility], [place] Otheron 04-25-2020 Test Performed by [facility], [facility] [place], [place] [id number] [place] [address], [place] Test Performed by [facility], [facility] [place] [address] [place], [place] PROTEIN, URINE, RANDOMon Interpretation and review of laboratory results Abnormal [place], [place] Protein (U) [Mass/Vol] 88 mg/dL High No Range [place], [place] PROTIME/INR & PTTon 04-25-20 20 INR Coag (PPP) [Relative time] 0.9 {INR} [place], [place] Comment on above: Recommended Anticoag ulant [...] Ur Random 88 mg/dL High No Range [facility] Comment on above: Performed By: #### C RTUR, TPUR, MAT #### [facility] [address], [place] Protime AND APTTon 0 aPTT Coag (Bld) [Time] 21.4 s Normal 20.0-30.5 [place], [place] Comment on above: NOTE: The therapeuti c time for Heparin anticoagulation, based on Xa activity inhibition, is an APTT of 46-80 seconds. Result Comment: NOTE : The therapeutic time for Heparin anticoagulation, based on Xa activity inhibition, is an APTT of 46-80 seconds. Performed By: #### P T/AP, CMP3, HEMOG, FIBGN #### [facility] [address], [place] INR 0.9 Normal 0.9-1.1 [facility] Comment on above: Result Comment: Trell [...] #### P T/AP, CMP3, HEMOG, FIBGN #### [facility] [email or web address] [address] [address] PT Coag (PPP) [Time] 9.6 s Normal 9.0-12.0 [place], [place] Comment on above: . Result Comment: . Performed By: #### P T/AP, CMP3, HEMOG, FIBGN #### [facility] [email or web address] [facility] [address] [place] [address] TS GELon 04-25-2020 TS GEL ABO Group: O Rh, Gel: POS Antibody Screen Gel: NEG Normal [facility] Comment on above: Performed By: #### T SGL ####[facility] [email or web address] [facility] TYPE AND SCREENon 04-25-2020 Sodium [Moles/Vol] Negative [place], [place] Sodium [Moles/Vol] O [place] Sodium [Moles/Vol] Positive [place] Test Performed by [facility], [address] [place] [id number] [place], [place] ABO, External Resulton 04-10 ABO, External Result O [place], [place] C. Trachomatis, External Res ulton 04-10-2020 C. Trachomatis, External Result Negative [place], [place] HIV, External Resulton 04-10 HIV, External Result Negative [place] Hepatitis B, External Result on 04-10-2020 Hep B, External Result Negative [place], [place] N. Gonorrhoeae, External Res ulton 04-10-2020 N. Gonorrhoeae, External Result Negative [place], [place] Otheron 04-10-2020 Verified with Fer Alejo rn [place], [place] RPR, External Labon 04-10-20 20 RPR, External Result Negative [place], [place] Rh Factor, External Resulton 04-10-2020 Rh Factor, External Result Positive [place], [place] Rubella Titer, External Resu lton 04-10-2020 Rubella Titer, External Result IMMUNE [facility] [place], [place] Progress Noteon 03-08-2020 [employer] Authentication Interface Message Text Pediatric Cardiology Echocardiogram [...] anatomic obstetrical ultrasound. Patient was seen by [facility] with obstetrical ultrasound and genetic counseling [...] here today. A echocardiogram was performed by [facility] as part of their evaluation, and [...] in visit on 03/08/20 [place] [address] [email or web address] ---- Echocardiogram Report M-mode, complete 2D, complete spectral Doppler, and color Doppler PATIENT: Anand Herrera STUDY DATE/TIME: Mar 08 2020 12:04PM HEIGHT: : 2000 WEIGHT: AGE: 19yr BSA/BMI: / GENDER: F BP: 137 / 64 LOCATION: [facility] REFERRING PHYSICIAN: Zac Martinez Md ORDERING PROVIDER: [...] STUDY AND PROCEDURE DATA: Procedure Description: New ([id number]) . Study status: Routine. Location: lab. Procedure: [...] a patent foramen ovale. There is a [id number] shunt. Left atrium - The atrium is [...] of all we discussed. Hannah Guevara MD [facility] Inside Sales Trainer [facility] Clinical Industrial Maintenance Repairer Helper of Pediatrics [facility] Counseling and coordination of care for this patient was greater than 35minutes which is more than 50% of the total time of 60 minutes spent on the encounter. Normal [facility] [employer] Authentication Interface Message Text Pediatric Hand Surgery [...] provider. 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 Consent to share information with [facility] team, OB and radiology director signed. Pt plans to deliver at [facility] with Dr Martinez. Community Worker is not yet decided. female fetus- name is Osseo Method of feeding: breast and bottle Ultrasound findings today: See report in procedures for details. Reinforced continued OB care with Dr Martinez- next appointment- next week [facility] [employer] Authentication Interface Message Text MFM genetic counseling [...] Herrera also met with Jerilyn Agee, Clinical Air Bag Stripper from our [facility]. Jerilyn will continue to help coordinate and care. consultation with Pediatric Orthopedic Surgery in the Hand and Upper Extremity Clinic is being arranged. follow up with Pediatric Orthopedic Surgery should be within one month of age or otherwise as per their recommendations. Call [phone] to schedule. Consultation with Medical Genetics should be considered in the period, especially if additional concerns are noted after delivery. The radiology director or patient can request this consultation. Call [phone] to schedule. Indicate that you were followed by the [facility] when scheduling. Diagnosis: DIAGNOSIS. 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 Plan: 1. Continued obstetrical care with her primary boxing promoter is recommended. 2. Follow up q4 weeks to evaluate biometric parameters and anatomy. These are planned with the [facility]/your office. 3. surveillance as follows: weekly BPP beginning at 32 weeks. 4. consultation with Pediatric Orthopedic Surgery in the Hand and Upper Extremity Clinic is being arranged. 5. Delivery is appropriate at your local institution/already planned in [place] with follow up as indicated. 6. Mode and timing of delivery are based on the usual obstetrical indications. 7. Anticipate normal nursery. OR Neonatology/Pediatric di to be present at delivery to evaluate and determine nursery placement. 8. follow up with Pediatric Orthopedic Surgery should be within one month of age or otherwise as per their recommendations. Call [phone] to schedule. 9. Consultation with Medical Genetics should be considered in the period, especially if additional concerns are noted after delivery. The radiology director or patient can request this consultation. Call [phone] to schedule. Indicate that you were followed by the [facility] when scheduling. 9. Other follow up as clinically indicated. Her complete [facility] Plan of Care summary will be distributed. The total patient time of the visit was 30 minutes, of which greater than 50% of the time was spent counseling and coordinating care. Junior Kat MD [facility] Progress Noteon 02-15-2020 [employer] Authentication Interface Message Text Dating for consult Normal [facility] Vital Signs Date Time Vital Sign Value Performing Clinician Facility 01-11-2025 14:39-0400 Body mass index (BMI) [Ratio] 30.8 kg/m2 [employer] Work Phone: [facility] 01-11-2025 14:39-0400 Body weight 86.55 kg [employer] Work Phone: [facility] 01-11-2025 14:39-0400 Diastolic blood pressure 64 mm[Hg] Marco ALeaky Work Phone: [facility] 01-11-2025 14:39-0400 Systolic blood pressure 122 mm[Hg] [employer] Work Phone: [facility] 01-04-2025 13:14-0400 Body mass index (BMI) [Ratio] 30.3 kg/m2 Simona ROSS Work Phone: [facility] 01-04-2025 13:14-0400 Body weight 85.16 kg Simona ROSS Work Phone: [facility] 01-04-2025 13:14-0400 Diastolic blood pressure 62 mm[Hg] Simona ROSS Work Phone: [facility] 01-04-2025 13:14-0400 Systolic blood pressure 126 mm[Hg] Simona Pasadena PA Work Phone: [facility] 12-22-2024 13:57-0400 Body mass index (BMI) [Ratio] 30.57 kg/m2 Simona Currie PA Work Phone: [facility] 12-22-2024 13:57-0400 Body weight 85.91 kg Simona Currie PA Work Phone: [facility] 12-22-2024 13:57-0400 Diastolic blood pressure 68 mm[Hg] Simona Currie PA Work Phone: [facility] 12-22-2024 13:57-0400 Systolic blood pressure 112 mm[Hg] Simona Currie PA Work Phone: [facility] 12-08-2024 11:30-0400 Body mass index (BMI) [Ratio] 29.58 kg/m2 Marco A Jc DO Work Phone: [facility] 12-08-2024 11:30-0400 Body weight 83.12 kg Marco A Jc DO Work Phone: [facility] 12-08-2024 11:30-0400 Diastolic blood pressure 66 mm[Hg] Marco A Jc DO Work Phone: [facility] 12-08-2024 11:30-0400 Systolic blood pressure 122 mm[Hg] Marco A Jc DO Work Phone: [facility] 11-22-2024 11:51-0400 Body mass index (BMI) [Ratio] 29.34 kg/m2 Marco A Jc DO Work Phone: [facility] 11-22-2024 11:51-0400 Body weight 82.46 kg Marco A Jc DO Work Phone: [facility] 11-22-2024 11:51-0400 Diastolic blood pressure 66 mm[Hg] Marco A Jc DO Work Phone: [facility] 11-22-2024 11:51-0400 Systolic blood pressure 112 mm[Hg] Marco A Jc DO Work Phone: [facility] 10-25-2024 14:39-0400 Body mass index (BMI) [Ratio] 28.25 kg/m2 Simona Currie PA Work Phone: [facility] 10-25-2024 14:39-0400 Body weight 79.38 kg Simona Currie PA Work Phone: [facility] 10-25-2024 14:39-0400 Diastolic blood pressure 62 mm[Hg] Simona Currie PA Work Phone: [facility] 10-25-2024 14:39-0400 Systolic blood pressure 110 mm[Hg] Simona Currie PA Work Phone: [facility] 09-27-2024 14:51-0400 Body mass index (BMI) [Ratio] 27.12 kg/m2 Marco A Jc DO Work Phone: [facility] 09-27-2024 14:51-0400 Body weight 76.2 kg Marco A Jc DO Work Phone: [facility] 09-27-2024 14:51-0400 Diastolic blood pressure 70 mm[Hg] Marco A Jc DO Work Phone: [facility] 09-27-2024 14:51-0400 Systolic blood pressure 110 mm[Hg] Marco A Jc DO Work Phone: [facility] 08-29-2024 11:50-0400 Body mass index (BMI) [Ratio] 25.95 kg/m2 Marco A Jc DO Work Phone: [facility] 08-29-2024 11:50-0400 Body weight 72.94 kg Marco A Jc DO Work Phone: [facility] 08-29-2024 11:50-0400 Diastolic blood pressure 68 mm[Hg] Marco A Jc DO Work Phone: [facility] 08-29-2024 11:50-0400 Systolic blood pressure 114 mm[Hg] Marco A Jc DO Work Phone: [facility] 08-01-2024 13:20-0400 Body mass index (BMI) [Ratio] 26.95 kg/m2 Marco A Jc DO Work Phone: [facility] 08-01-2024 13:20-0400 Body weight 75.75 kg Marco A Jc DO Work Phone: [facility] 08-01-2024 13:20-0400 Diastolic blood pressure 70 mm[Hg] Marco A Jc DO Work Phone: [facility] 08-01-2024 13:20-0400 Systolic blood pressure 120 mm[Hg] Marco A Jc DO Work Phone: [facility] 05-19-2024 11:32-0500 Body mass index (BMI) [Ratio] 23.4 kg/m2 Marco A Jc DO Work Phone: [facility] 05-19-2024 11:32-0500 Body weight 65.77 kg Marco A Jc DO Work Phone: [facility] 05-19-2024 11:32-0500 Diastolic blood pressure 74 mm[Hg] Marco A Jc DO Work Phone: [facility] 05-19-2024 11:32-0500 Systolic blood pressure 110 mm[Hg] Marco A Jc DO Work Phone: [facility] 04-19-2024 01:09-0500 Body temperature 98.06 [degF] [facility] 04-19-2024 01:09-0500 Diastolic blood pressure 84 mm[Hg] [facility] 04-19-2024 01:09-0500 Heart rate 90 /min [facility] 04-19-2024 01:09-0500 Respiratory rate 16 /min [facility] 04-19-2024 01:09-0500 SaO2% (BldA) [Mass fraction] 100 % [facility] 04-19-2024 01:09-0500 Systolic blood pressure 126 mm[Hg] [facility] 03-08-2024 15:12-0500 Body mass index (BMI) [Ratio] 22.29 kg/m2 Marco A Jc DO Work Phone: [facility] 03-08-2024 15:12-0500 Body weight 62.65 kg Marco A Jc DO Work Phone: [facility] 03-08-2024 15:12-0500 Diastolic blood pressure 70 mm[Hg] Marco A Jc DO Work Phone: [facility] 03-08-2024 15:12-0500 Systolic blood pressure 120 mm[Hg] Marco A Jc DO Work Phone: [facility] 10-14-2022 12:27-0400 Body temperature 98.24 [degF] Nakul Cannon [facility] 10-14-2022 12:27-0400 Diastolic blood pressure 64 mm[Hg] Nakul Cannon [facility] 10-14-2022 12:27-0400 Heart rate 107 /min Nakul Cannon [facility] 10-14-2022 12:27-0400 Respiratory rate 18 /min Nakul Cannon [facility] 10-14-2022 12:27-0400 SaO2% (BldA) [Mass fraction] 100 % Nakul Cannon [facility] 10-14-2022 12:27-0400 Systolic blood pressure 113 mm[Hg] Nakul Kassandra [facility] 12-19-2021 03:42-0400 Diastolic blood pressure 64 mm[Hg] Anthony Michelle [facility] 12-19-2021 03:42-0400 Heart rate 78 /min Anthony Michelle [facility] 12-19-2021 03:42-0400 Hourly Rounding Anthony Michelle [facility] 12-19-2021 03:42-0400 Nursing Progress Note Reason Other: Pt mediciated per orders. Family x1 cartside. Denies any needs at this time. Anthony Michelle [facility] 12-19-2021 03:42-0400 Respiratory rate 16 /min Anthony Michelle [facility] 12-19-2021 03:42-0400 SaO2% (BldA) [Mass fraction] 100 % Anthony Michelle [facility] 12-19-2021 03:42-0400 Systolic blood pressure 116 mm[Hg] Anthony Michelle [facility] 12-19-2021 02:40-0400 Diastolic blood pressure 70 mm[Hg] Anthony Michelle [facility] 12-19-2021 02:40-0400 Heart rate 82 /min Anthony Michelle [facility] 12-19-2021 02:40-0400 Hourly Rounding Anthony Michelle [facility] 12-19-2021 02:40-0400 Nursing Progress Note Reason Other: Pt ambulatory to bathroom and back to cart with a steady gait. Anthony Michelle [facility] 12-19-2021 02:40-0400 Respiratory rate 16 /min Anthony Michelle [facility] 12-19-2021 02:40-0400 SaO2% (BldA) [Mass fraction] 100 % Anthony Michelle [facility] 12-19-2021 02:40-0400 Systolic blood pressure 122 mm[Hg] Anthony Michelle [facility] 12-19-2021 01:53-0400 Body temperature 98.06 [degF] Anthony Michelle [facility] 12-19-2021 01:53-0400 Diastolic blood pressure 84 mm[Hg] Anthony Michelle [facility] 12-19-2021 01:53-0400 Heart rate 89 /min Anthony Michelle [facility] 12-19-2021 01:53-0400 Respiratory rate 16 /min Anthony Michelle [facility] 12-19-2021 01:53-0400 SaO2% (BldA) [Mass fraction] 100 % Anthony Michelle [facility] 12-19-2021 01:53-0400 Systolic blood pressure 149 mm[Hg] Anthony Martinez [facility] 11-01-2021 08:09-0400 Body temperature 98.42 [degF] Keanu Kamara [facility] 11-01-2021 08:09-0400 Diastolic blood pressure 90 mm[Hg] Keanu Asad [facility] 11-01-2021 08:09-0400 Heart rate 94 /min Keanu Asad [facility] 11-01-2021 08:09-0400 Respiratory rate 18 /min Keanu Asad [facility] 11-01-2021 08:09-0400 SaO2% (BldA) [Mass fraction] 98 % Keanu Asad [facility] 11-01-2021 08:09-0400 Systolic blood pressure 145 mm[Hg] Keanu Asad [facility] 09-18-2021 09:59-0400 Body temperature 98.06 [degF] Astrit Hajdari [facility] 09-18-2021 09:59-0400 Diastolic blood pressure 87 mm[Hg] [facility] 09-18-2021 09:59-0400 Heart rate 90 /min [facility] 09-18-2021 09:59-0400 Respiratory rate 16 /min [facility] 09-18-2021 09:59-0400 SaO2% (BldA) [Mass fraction] 100 % [facility] 09-18-2021 09:59-0400 Systolic blood pressure 136 mm[Hg] [facility] 04-28-2020 07:51-0500 Body Temperature 97.81 [degF] [place] 04-28-2020 07:51-0500 BP Diastolic 68 mm[Hg] [place], [place] 04-28-2020 07:51-0500 BP Systolic 121 mm[Hg] [place] 04-28-2020 07:51-0500 Pulse (Heart Rate) 97 /min [place], [place] 04-28-2020 07:51-0500 Pulse Oximetry 97 % [place] 04-28-2020 07:51-0500 Respiratory Rate 18 /min [place] 04-25-2020 13:40-0500 BMI (Body Mass Index) 23.3 kg/m2 [place] 04-25-2020 13:40-0500 Body weight 63.5 kg [place] 04-25-2020 13:40-0500 Height 165.1 cm [place] Encounters Encounter Date Encounter Type Care [...] trimester preg tuan ([facility]); 36 weeks gestation of ([facility]); Amniotic band syndrome; H/O pre-eclampsia in prior , currently ([facility]) Start: 01-11-2025 End: 01-11-2025 ambulatory MARCO A JC Not Available Start: 01-11-2025 End: 01-11-2025 Bamboo flowsheet Marco A Jc DO Work Phone: [facility] Start: 01-11-2025 End: 01-11-2025 Bamboo flowsheet Marco [...] trimester preg tuan ([facility]); 35 weeks gestation of ([facility]) Start: 01-04-2025 End: 01-04-2025 ambulatory SIMONA [...] Comment on above: Third trimester preg tuan ([facility]); 33 weeks gestation of ([facility]); Amniotic band syndrome; History of miscarriage Start: 12-22-2024 End: 12-22-2024 ambulatory SIMONA CURRIE Not Available Start: 12-12-2024 End: 12-12-2024 ambulatory MARCO A JC Not Available Start: 12-08-2024 End: 12-08-2024 Office outpatient visit 15 minutes Marco A Jc DO Work Phone: [facility] Comment on above: Third trimester preg tuan ([facility]); 31 weeks gestation of ([facility]); Screening, , for anatomic survey ([facility]) Start: 12-08-2024 End: 12-08-2024 ambulatory MARCO A JC Not Available Start: 11-22-2024 End: 11-22-2024 Bamboo flowsheet Marco A Jc DO Work Phone: [facility] Start: 11-22-2024 End: 11-22-2024 Bamboo flowsheet Marco A Jc DO Work Phone: [facility] Start: 11-22-2024 End: 11-22-2024 Office outpatient visit 15 minutes Marco A Jc DO Work Phone: [facility] Comment on above: Size of fetus incons istent with dates in second trimester ([facility]) (Primary Dx); Second trimester ([facility]); 28 weeks gestation of ([facility]); Mastitis Start: 11-22-2024 End: 11-22-2024 ambulatory MARCO A JC Not Available Start: 10-31-2024 End: 10-31-2024 Clinisync Result Encounter Simona ROSS Work Phone: [facility] External Department Unsolicited Start: 10-31-2024 End: 10-31-2024 Clinisync Result Encounter Simona ROSS Work Phone: [facility] External Department Unsolicited Start: 10-25-2024 End: 10-25-2024 Office outpatient visit 15 minutes Simona ROSS Work Phone: [facility] Comment on above: Second trimester pre gnancy ([facility]); 24 weeks gestation of ([facility]); HSV infection; H/O pre-eclampsia in prior , currently ([facility]); Diabetes mellitus screening; Encounter for anatomic survey ([facility]) Start: 10-25-2024 End: 10-25-2024 ambulatory SIMONA [...] End: 08-16-2024 Subsequent hospital visit by physician [id number] Obgynimg Ultrasound 1 [place] Comment on above: as inciden neetu finding ([facility]) Start: 08-01-2024 End: 08-01-2024 Bamboo [...] 04-19-2024 End: 04-19-2024 Emergency department patient visit [facility] Start: 03-08-2024 End: 03-08-2024 Patient encounter [...] 02-02-2023 End: 02-25-2023 Pre-admission assessment Zac Martinez [facility] Start: 11-10-2022 ambulatory KELL JOHNSON Faci lity:[facility] Jacobo Mark Start: 10-14-2022 End: 10-14-2022 Emergency department patient visit Nakul Halle [facility] Start: 09-26-2022 ambulatory PCP UNKNOWN Facility:[facility] Jacobo Mark Start: 09-04-2022 End: 09-05-[address] MARCO A GREENE . Facility: Start: 08-14-2022 End: 08-15-[address] MARCO A GREENE . Facility: Start: 12-19-2021 End: 12-19-2021 Emergency department patient visit Anthony Martinez [facility] Start: 11-14-2021 End: 11-14-2021 Patient encounter procedure Grover Amaral OD Work Phone: Ophthalmology Comment on above: EKC (epidemic kerato conjunctivitis) (Primary Dx) Start: 11-07-2021 End: 11-07-2021 Patient encounter procedure Grover Amaral OD Work Phone: Ophthalmology Comment on above: Viral conjunctivitis (Primary Dx) Start: 11-01-2021 End: 11-01-2021 Emergency department patient visit Keanu Kamara [facility] Start: 09-18-2021 End: 09-18-2021 Emergency department patient visit Amos Espinoza [facility] Start: 04-25-2020 End: 04-28-2020 Evaluation and management [...] Historical Provider Start: 04-10-2020 [facility], [facility] Start: 04-10-2020 N. GONORRHOEAE, EXTE RNAL RESULT Historical Provider Start: 04-10-2020 RH FACTOR, EXTERNAL RESULT Historical Provider Start: 04-10-2020 RPR, EXTERNAL RESULT [facility] Start: 04-10-2020 RUBELLA TITER, EXTER NAL RESULT Historical Provider Plan of Treatment Date Care Activity Detail Author Start: 10-08-2049 Zoster Vaccines (1 o f 2) Zoster Vaccines (1 of 2) [facility] Start: 04-28-2030 DTaP/Tdap/Td Vaccine s (8 - Td or Tdap) DTaP/Tdap/Td Vaccines (8 - Td or Tdap) [facility] Start: 03-14-2025 End: 03-14-2025 Patient encounter procedure [facility] Start: 01-11-2025 End: 01-11-2025 Patient encounter procedure LON [place] OBLYNDA Comment on above: Arrived Start: 01-11-2025 End: 01-11-2026 CULTURE, GROUP B STREP WITH SUSCEPTIBLITY CULTURE, GROUP B STREP WITH SUSCEPTIBLITY Lab Routine Third trimester ([facility]) Expected: 01/11/2025, Expires: 01/11/2026 [facility] Work Phone: Comment on above: Expected: 01/11/2025 , Expires: 01/11/2026 Start: 01-04-2025 End: 01-04-2025 Patient encounter procedure LON BARRERA Comment on above: Arrived Start: 12-26-2024 Influenza vaccination Influenz a Vaccine (Season Ended) [facility] Start: 12-22-2024 End: 12-22-2024 Patient encounter procedure [...] weeks anatomy scan Imaging Routine Third trimester ([facility]) 31 weeks gestation of ([facility]) Screening, , for anatomic survey ([facility]) Expected: 12/08/2024, Expires: 03/10/2025 [facility] Work Phone: Comment on above: Expected: 12/08/2024 , Expires: 03/10/2025 Start: 12-08-2024 End: 12-08-2024 Professional / ancillary services management 12/08/2024 11:00 AM EDT Ancillary Procedure LON [place]offe[place] OBLYNDA [address] [place] [address] [place] [address] LON Coffey OBGYVadim Start: 11-22-2024 End: 03-25-2025 US for US OB follow up transabdominal approach Imaging Routine Size of fetus inconsistent with dates in second trimester ([facility]) Expected: 11/22/2024, Expires: 03/25/2025 [facility] Work Phone: Comment on above: Expected: 11/22/2024 , Expires: 03/25/2025 Start: 11-22-2024 End: 11-22-2024 Patient encounter procedure [facility] Comment on above: Arrived Start: 10-25-2024 End: 10-25-2024 Patient encounter procedure [facility] Comment on above: Arrived Start: 10-25-2024 End: 10-25-2025 CBC panel - Blood by Automated count CBC Lab Routine Diabetes mellitus screening Expected: 10/25/2024 (Approximate), Expires: 10/25/2025 [facility] Work Phone: Comment on above: Expected: 10/25/2024 [...] for anatomic survey ([facility]) Expected: 10/25/2024 (Approximate), Expires: 01/25/2025 [facility] [...] Office Visit [facility] [address] [place] [id number] Marco A Greene DO [address] [place] [address] Arrived [facility] Comment on above: Arrived Start: 12-27-2023 COVID-19 Vaccine ( season) COVID-19 Vaccine ( season) [facility] Start: 12-26-2021 Influenza vaccination INFLUENZA (#1) [facility] Start: 10-08-2020 PAP TESTING PAP TESTING [facility] Start: 10-08-2020 Screening for malign ant neoplasm of cervix [facility] Start: 10-08-2018 Urine microalbumin profile DTAP,TDAP,TD (1 - Tdap) [facility] Start: 10-08-2017 CHLAMYDIA SCREENING (18-24) CHLAMYDIA SCREENING (18-24) [facility] Start: 10-08-2017 GC (GONORRHEA) SCREENING (18-24) GC (GONORRHEA) SCREENING (18-24) [facility] Start: 10-08-2017 HEPATITIS C SCREENING HEPATITIS C [facility] Start: 10-08-2017 Hepatitis C screening Hepatitis C [facility] Start: 10-08-2017 HIV SCREENING HIV SCREENING [facility] Start: 10-08-2013 PEDS TO ADULT TRANSITION ANNUAL ASSESSMENT PEDS TO ADULT TRANSITION ANNUAL ASSESSMENT [facility] Start: 03-01-2012 Varicella vaccination Varicell a Vaccines (2 of 2 - 2-dose childhood series) [facility] Start: 2011 Adult depression screening assessment DEPRESSION SCREENING [facility] Start: 2011 PEDS TO ADULT TRANSITION INITIAL DISCUSSION PEDS TO ADULT TRANSITION INITIAL DISCUSSION [facility] Start: 10-08-2010 HPV VACCINE (1 - 2-d ose series) HPV VACCINE (1 - 2-dose series) [facility] Start: 04-09-2000 COVID-19 VACCINE (#1) COVID-19 VACCI NE (#1) [facility] Start: 1999 HIV screening HIV Screening [facility] Start: 1999 Lipid panel Lipid Panel [facility] Start: 1999 Yearly Adult Physical Yearly Adult P hysical [facility] CHLAMYDIA TRACHOMATI S (GENITO/STI) CHLAMYDIA TRACHOMATIS (GENITO/STI) [...] Lab Routine Exposure to STD Ordered: 09/27/2024 [facility] Comment on above: Ordered: 09/27/2024 Nonrebreather mask oxygen Nonrebreather mask oxygen Respiratory Care Routine As directed - RT (PRN) until discontinued starting 04/26/2020 [place], [place] Comment on above: As directed - RT (NM N) until discontinued starting 04/26/2020 Oxygen therapy [[facility] Data Set] Initiate Oxygen Therapy Protocol Respiratory Care Routine Daily until discontinued starting 04/26/2020 [place], [place] Comment on above: Daily until disconti nued starting 04/26/2020 Spirometry panel Incentive roger metry Respiratory Care Routine Every 2hr while awake until discontinued starting 04/26/2020 [place], [place] Comment on above: Every 2hr while awak e until discontinued starting 04/26/2020 SURESWAB(R) ADVANCED VAGINITIS PLUS, TMA SURESWAB(R) ADVANCED VAGINITIS PLUS, TMA Pathology and Cytology Routine Exposure to STD Ordered: 09/27/2024 [facility] Work Phone: Comment on above: Ordered: 09/27/2024 [facility] Immunizations Immunization Date Immunization Notes Care Provider Fa cility 04-28-2020 tetanus toxoid, redu paula diphtheria toxoid, and acellular pertussis vaccine, adsorbed [facility], [place] 04-27-2020 influenza, injectabl e, quadrivalent, preservative free [facility] 04-27-2020 influenza virus vacc ine, unspecified formulation [id number] 1 [facility] Work Phone: 04-26-2020 influenza quadrivale nt split vaccine (FLUZONE;FLUARIX;FLULAVAL ;AFLURIA) injection 0.5 mL [facility] 04-26-2020 diphtheria, tetanus toxoids and acellular pertussis vaccine, unspecified formulation [facility] , [place] 12-08-2011 varicella virus vaccine [id number] 1 [facility] Work Phone: Payers Date Payer Category Payer Medicaid [employer] [place] [id number] 2020-Present [phone] [address] [address] [place] [address] Medicaid [id number] 2020 Medicaid (Managed Care) 1.2. [id number] 2020 [employer] of [place] ( and others) [facility] [id number] 2020-Present [address] [place] [address] [id number]. [id number] 1999 Unknown [id number] 2.16.840.1.518870.3.579.2. 593 1999 Unknown [id number] 2.16.840.1.001774.3.579.2. 593 1999 Unknown [id number] 2.16.840.1.601451.3.579.2. 356 1999 Unknown [id number] 2.16.840.1.989054.3.579.2. 356 1999 Unknown [id number] 2.16.840.1.361073.3.579.2. 727 1999 Unknown [id number] 2.16.840.1.711581.3.579.2. 1259 1999 Unknown [id number] 2.16.840.1.978679.3.579.2. 1259 1999 Unknown [id number] 2.16.840.1.030150.3.579.2. 1259 1999 Unknown [id number] 2.16.840.1.948426.3.579.2. 1259 1999 Unknown [id number] 2.16.840.1.007274.3.579.2. 1259 1999 Unknown [id number] 2.16.840.1.988882.3.579.2. 9 1999 Unknown [id number] 2.16.840.1.334233.3.579.2. 9 1999 Unknown [id number] 2.16.840.1.730248.3.579.2. 9 1999 Unknown [id number] 2.16.840.1.673011.3.579.2. 9 1999 Unknown [id number] 2.16.840.1.666052.3.579.2. 9 1999 Unknown [id number] 2.16.840.1.182951.3.579.2. 9 1999 Unknown [id number] 2.16.840.1.364470.3.579.2. 1258 1999 Unknown [id number] 2.16.840.1.461145.3.579.2. 9 1999 Unknown [id number] 2.16.840.1.061280.3.579.2. 9 1999 Unknown [id number] 2.16.840.1.538029.3.579.2. 1259 1959 Unknown [id number] Social History Date Type Detail Facility Start: 04-28-2020 End: 10-26-2023 Tobacco smoking status [facility] Never smoker [facility] Start: 04-28-2020 End: 10-26-2023 Tobacco use and exposure Never used Ada Motiga MIRIAM MCCONNELL Start: 04-28-2020 End: 12-07-2024 Alcohol intake Ex-drinker (finding) Ada [facility] ENEDINA Nii Coco Start: 2000 Sex Assigned At Not on file M MIRIAM Manzano Start: 10-28-2021 End: 08-16-2024 Exposure to SARS-CoV-2 (event) [facility] sure [facility] Comment on above: denies Start: 10-26-2023 End: 03-08-2024 Sex Assigned At Female [facility] Tobacco smoking status No Smoking Status Entered [facility] Start: 10-26-2023 End: 03-08-2024 History of Social function [facility] Start: 10-29-2022 Alcohol Comment caffeine: rarely [facility] Start: 1999 Sex assigned at Female [facility] Start: 10-19-2022 Gender identity Identifies as female gender (finding) [facility] Start: 05-18-2024 [facility] Tobacco smoking status [facility] Tobacco smoking consumption unknown [facility] Work Phone: Functional Status Date Assessment Result Facility 04-19-2024 Functional Status N/A [facility] 10-14-2022 Functional Status N/A [facility] 12-19-2021 Functional Status N/A [facility] 11-01-2021 Functional Status N/A [facility] Clinical Notes 04-28-2020 to 01-11-2025 Hillary Coreas SUMMER COUNSELOR - 01/11/2025 2:30 PM CODY Eisenberg - 01/04/2025 1:50 PM CODY Eisenberg - 12/22/2024 2:00 PM Maida Costello SUMMER COUNSELOR - 12/08/2024 11:30 AM CODY Eisenberg - [...] Problems Past Medical History: Diagnosis Date Pre-eclampsia ([facility]) HISTORY PAST MEDICAL HISTORY SOCIAL HISTORY Past Medical History: Diagnosis Date Pre-eclampsia ([facility]) Social History Tobacco Use Smoking status: [...] nursing note reviewed. Exam conducted with a supervisor cartography present. Vitals: Estimated body mass index is 30.8 kg/m as calculated from the following: Height as of 10/26/23: 5' 6 . Weight as of this encounter: 190 lb 12.8 oz. BP: 122/64 Patient's last menstrual period was 05/04/2024. ASSESSMENT & PLAN ICD-10-CM 1. Third trimester ([facility]) Z34.93 POCT urinalysis dipstick manually resulted CULTURE, GROUP B STREP WITH SUSCEPTIBLITY CULTURE, GROUP B STREP WITH SUSCEPTIBLITY 2. 36 weeks gestation of ([facility]) Z3A.36 POCT urinalysis dipstick manually resulted 3. Amniotic band syndrome Q79.8 4. H/O pre-eclampsia in prior , currently ([facility]) O09.299 Patient is doing well but [...] A Greene DO documented in this encounter [facility] 01-04-2025 History of Presen t illness Narrative [...] Problems Past Medical History: Diagnosis Date Pre-eclampsia ([facility]) HISTORY PAST MEDICAL HISTORY SOCIAL HISTORY Past Medical History: Diagnosis Date Pre-eclampsia ([facility]) Social History Tobacco Use Smoking status: [...] nursing note reviewed. Exam conducted with a supervisor cartography present. Vitals: Estimated body mass index is 30.3 kg/m as calculated from the following: Height as of 10/26/23: 5' 6 . Weight as of this encounter: 187 lb 12 oz. BP: 126/62 Patient's last menstrual period was 05/04/2024. ASSESSMENT & PLAN ICD-10-CM 1. Third trimester ([facility]) Z34.93 POCT urinalysis dipstick manually resulted 2. 35 weeks gestation of ([facility]) Z3A.35 Return OB: Patient presents [...] of: CODY Dumont documented in this encounter [facility] 12-22-2024 History of Presen t illness Narrative [...] Diagnosis Date Pre-eclampsia ([facility]) HISTORY PAST MEDICAL HISTORY SOCIAL HISTORY Past Medical History: Diagnosis Date Pre-eclampsia ([facility]) Social History Tobacco Use Smoking status: Never [...] ASSESSMENT & PLAN ICD-10-CM 1. Third trimester ([facility]) Z34.93 2. 33 weeks gestation of ([facility]) Z3A.33 3. Amniotic band syndrome Q79.8 [...] of: CODY Dumont documented in this encounter [facility] 12-08-2024 History of Presen t illness Narrative [...] Problems Past Medical History: Diagnosis Date Pre-eclampsia ([facility]) HISTORY PAST MEDICAL HISTORY SOCIAL HISTORY Past Medical History: Diagnosis Date Pre-eclampsia ([facility]) Social History Tobacco Use Smoking status: [...] nursing note reviewed. Exam conducted with a supervisor cartography present. Vitals: Estimated body mass index is 29.58 kg/m as calculated from the following: Height as of 10/26/23: 5' 6 . Weight as of this encounter: 183 lb 4 oz. BP: 122/66 Patient's last menstrual period was 05/04/2024. ASSESSMENT & PLAN ICD-10-CM 1. Third trimester ([facility]) Z34.93 2. 31 weeks gestation of ([facility]) Z3A.31 Patient presents today for a routine obstetrics appointment. Patient is currently 31w1d with a Estimated Date of Delivery: 02/08/25. Patient desires to have tubal ligation at time of on 02/01/25. Patient to return to clinic in 2-3 weeks for routine OB care. Documented by Rose Costello LPN on behalf of: Marco A Greene DO documented in this encounter [facility] 11-22-2024 History of Presen t illness Narrative [...] Diagnosis Date Pre-eclampsia ([facility]) HISTORY PAST MEDICAL HISTORY SOCIAL HISTORY Past Medical History: Diagnosis Date Pre-eclampsia ([facility]) Social History Tobacco Use Smoking [...] fetus inconsistent with dates in second trimester ([facility]) O26.842 US OB follow up transabdominal approach 2. Second trimester ([facility]) Z34.92 POCT urinalysis dipstick manually resulted 3. 28 weeks gestation of ([facility]) Z3A.28 POCT urinalysis dipstick manually resulted [...] A Greene DO documented in this encounter [facility] 10-25-2024 History of Presen t illness Narrative [...] Problems Past Medical History: Diagnosis Date Pre-eclampsia ([facility]) HISTORY PAST MEDICAL HISTORY SOCIAL HISTORY Past Medical History: Diagnosis Date Pre-eclampsia ([facility]) Social History Tobacco Use Smoking status: [...] ASSESSMENT & PLAN ICD-10-CM 1. Second trimester ([facility]) Z34.92 POCT urinalysis dipstick manually resulted 2. 24 weeks gestation of ([facility]) Z3A.24 3. HSV infection B00.9 4. H/O pre-eclampsia in prior , currently ([facility]) O09.299 5. Diabetes mellitus screening Z13.1 CBC Glucose tolerance, 1 hour CBC Glucose tolerance, 1 hour 6. Encounter for anatomic survey ([facility]) Z36.89 US OB limited 1+ fetuses [...] day. Patient is not being seen at [facility] no longer. Simona Currie gave patient a Rpt Anatomy US to have obtained in our office /[facility] due to the spine not seen [...] of: CODY Dumont documented in this encounter [facility] 09-27-2024 History of Presen t illness Narrative [...] nursing note reviewed. Exam conducted with a supervisor cartography present. Vitals: Estimated body mass index is [...] A Greene DO documented in this encounter [facility] 08-29-2024 History of Presen t illness Narrative [...] nursing note reviewed. Exam conducted with a supervisor cartography present. Vitals: Estimated body mass index is [...] medication use of Vyvance. Documented by Elvi Gerbre NP on behalf of: Marco A Greene DO documented in this encounter [facility] 08-01-2024 History of Presen t illness Narrative [...] nursing note reviewed. Exam conducted with a supervisor cartography present. Vitals: Estimated body mass index is [...] vyvanse 40mg daily. Will have referral to [facility]. She will begin progesterone at 16 weeks. Orders Placed This Encounter Procedures POCT urinalysis dipstick manually resulted Follow Up: Patient is to return to office in 4 week for routine OB appointment. Documented by Elvi Gerber NP on behalf of: Marco A Greene DO documented in this encounter [facility] 05-19-2024 History of Presen t illness Narrative [...] A Greene DO documented in this encounter [facility] 04-19-2024 Evaluation + Plan note Extrac nino from: Title:ED Note Author:Olga Davison, Amos De Oliveira te:04/19/24 1. Ear pain, right (H92.01: Otalgia, right ear) 2. Upper respiratory infection (J06.9: Acute upper respiratory infection, unspecified) [facility] 12-24-2024 Hospital Discharge instructions Patient Education 04/19/2024 [...] medicines to help relieve symptoms, such as: Ajia-edv-leqqssa cold medicines. Cough suppressants. Coughing is a [...] and other clear broths. General instructions Take kxrn-ebz-fmbqqzd and prescription medicines only as told by [...] and water are not available, use hand hims manager. Avoid touching your mouth, face, eyes, or [...] provider. Document Revised: 11/13/2021 Document Reviewed: 11/13/2021 Bandwidth Patient Education 2023 [employer]. 04/19/2024 01:34:08 Earache, Adult Earache, Adult An [...] instructions at home: Medicines Take or apply mwyk-fls-yktrnzt and prescription medicines only as told by [...] provider. Document Revised: 08/25/2022 Document Reviewed: 08/25/2022 Bandwidth Patient Education 2023 [employer]. Follow Up Care 04/19/2024 01:06:30 With:Kathy Mccall Address: [address] [place] [address] [place], dg C, [facility] [address] [place] [address] Business (1) When:04/22/2024 Comments:Return to the emergency room if your pain recurs or any new symptoms. [facility] 12-24-2024 NoteED Patient Education Note ENT Earache, [...] at home: Medicines ??? Take or apply byht-ecx-pnovudi and prescription medicines only as told by [...] provider. Document Revised: 08/25/2022 Document Reviewed: 08/25/2022 Bandwidth Patient Education ? 2023 [employer]. Infectious Disease Upper Respiratory Infection, Adult An [...] your health care provide (more content not included)...[facility] History of Present illness Narrative* Hillary Coreas, SUMMER COUNSELOR - 03/08/2024 3:00 PM EST Reason for [...] nursing note reviewed. Exam conducted with a supervisor cartography present. Vitals: Estimated body mass index is [...] Marco A Greene DO [id number] Hospital Discharge instructions Patient Education 10/14/2022 13:55:20 Sutures, [place], or Adhesive Wound Closure, Qfqb-re-Cnor Sutures, [place], or Adhesive Wound Closure Doctors [...] ?Hold the edges of the wound together. ?[place] the glue onto your skin. You may [...] Follow these instructions at home: Medicines Take yrge-axy-fumerrv and prescription medicines only as told by [...] cannot use soap and water, use hand hims manager. Do not try to take off [...] provider. Document Revised: 08/19/2021 Document Reviewed: 08/19/2021 Bandwidth Patient Education 2022 [employer]. Follow Up Care 10/14/2022 12:20:41 With:Baljit Link Address: [address] [place] [address]- Business (1) When:10/17/2022 13:48:24 [facility] Evaluation + Plan noteExtracted from: Title:ED Note [...] w/ Auto Diff eGFR PT & PTT [facility]08-25-2022 Hospital Discharge instructions Patient Education 12/19/2021 04:06:21 Dysfunctional Uterine Bleeding Dysfunctional Uterine Bleeding Dysfunctional uterine bleeding is abnormal bleeding from the uterus. Dysfunctional uterine bleedingincludes: A menstrual period that comes earlier or later than usual. A menstrual period that is endocrinologist or heavier than usual, or has large [...] to keep your urine pale yellow. ?Take gxhj-xlt-zkpviry or prescription medicines. ?Eat foods that are high in fiber, such as beans, whole grains, and fresh fruits and vegetables. ?Limit foods that are high in fat and processed sugars, such as fried or sweet foods. Medicines Take klip-duh-hlqfhbx and prescription medicines only as told by [...] 04/10/2001 Document Revised: 09/22/2018 Document Reviewed: 09/22/2018 Bandwidth Patient Education 2020 [employer]. Follow Up Care 12/19/2021 01:46:43 With:Zac Martinez Address: [facility] SAM [address] [address] Business (1) When:12/22/2021 [facility]07-21-2022 NoteHNO ID: [id number] Author: Grover Amaral OD Service: ? Author Type: ATM SERVICER Type: Progress Notes Filed: 11/14/2021 2:32 PM [...] Grover Amaral, DIXON November 14, 2021 2:29 [facility]07-21-2022 History of Present illness Narrative* Grover Amaral, [...] 2:29 PM [facility] NoteHNO ID: [id number] Author: Grover Amaral OD Service: ? Author Type: ATM SERVICER Type: Progress Notes Filed: 11/07/2021 4:03 PM [...] Grover Amaral OD November 07, 2021 4:03 [facility]07-14-2022 Miscellaneous Notes* Addendum Note - Grover Amaral OD - 11/07/2021 4:06 PM EDT Addended by: GROVER AMARAL on: 11/07/2021 04:06 PM Modules accepted: Orders [facility] History of Present illness Narrative* Grover [...] 4:03 PM [facility] Evaluation + Plan note Extracted from: Title:ED Note Author:Keanu Kamara DO Date: Allergic reaction (T78.40XA: Allergy, unspecified, initial encounter) Orders: predniSONE, 60 mg = 3 tab(s), Oral, Daily, X 5 day(s), # 15 tab(s), Refills(s) 0, Pharmacy: [facility]/pharmacy #[id number], 165, cm, 11/01/21 8:11:00 EDT, Height/Length Dosing, 63, kg, 11/01/21 8:11:00 EDT, Weight Dosing [facility]07-08-2022 Hospital Discharge instructions Patient Education 11/01/2021 08:25:17 [...] care provider who specializes in treating allergies (community worker) or eye conditions (cake former) for tests to confirm the diagnosis. You [...] Eye drops. These may be prescription or wqtx-dpx-auqeqtj. There are several different types. You may [...] known allergens whenever possible. Take or apply ntmz-exf-dywdwmm and prescription medicines only as told by [...] 07/04/2003 Document Revised: 03/26/2018 Document Reviewed: 10/24/2016 Bandwidth Patient Education 2020 [employer]. Follow Up Care 11/01/2021 08:05:40 With:Johanna Huynh Address: [address] [address]- Business (1) When:11/04/2021 08:24:58 Comments:Call today to arrange for follow-up appointment on Thursday or Thursday. Return to the ED with new or worsening symptoms as discussed. With:Baljit Watts Address: [address], [facility] [address] [facility] [place] [address]- Business (1) When:11/04/2021 08:24:46 Comments:Call the office [...] you develop any new or worsening symptoms. [facility]05-25-2022 Hospital Discharge instructions Patient Education 09/18/2021 12:07:29 [...] may be recommended to support your foot. Chyo-qej-jqzvaqw anti-inflammatory medicines may also be recommended for [...] sitting or lying down. General instructions Take lsfk-pix-katlthr and prescription medicines only as told by [...] 02/02/2007 Document Revised: 12/14/2018 Document Reviewed: 12/14/2018 Bandwidth Patient Education 2019 Up[employer] Follow Up Care 09/18/2021 09:48:23 With:Baljit Link Address: [address] [place] [address]- Business (1) When:09/21/2021 11:47:11 Comments:Return to the emergency room if your pain gets worse or any new symptom [facility]05-25-2022 Evaluation + Plan noteExtracted from: Title:ED Note Author:Amos Espinoza M.D. te:09/18/21 1. Contusion of left foot (S 90.32XA: Contusion of left foot, initial encounter) Orders: Post-op Shoe XR Foot 3+ Views Left [facility]01-02-2021 NoteDepartment of Obstetrics and Gynecology Delivery Discharge Summary Admission on 04/25/2020 1:08 PM Reason for admission: 04/25/2020 Intrapartum Course: N/A 30w6d PC-01 Indications for Delivery: Was patient delivered between 37w0d - 58l6evjkvb? NO Surgical Operations & Procedures: Date of delivery: 04/26/2020 Delivery Type: without labor Anesthesia: Spinal anesthesia Laceration(s): n/a Delivery Complications: none EBL: 700 cc Pertinent Findings & Procedures: Information for the patient's : Ree Herrera [[id number]] female Weight: 2 lb 12.3 oz (1.256 kg) Apgars: Information for the patient's : Ree Herrera [[id number]] One Minute : 6 Five Minute : 7 Course: Magnesium sulfate and Procardia for PEWSF : Female infant Blood Type/Rh: O POS Antibody Screen: Antibody Screen Date Value Ref Range Status 04/25/2020 NEG NA Final Rubella: No results found for: RUBELLAIGG Contraception: will be discussed with her provider at [place] : no VTE Prophylaxis: Not Indicated Meds: Anand Herrera Home Medication Instructions RANDA:[id number] Printed on:04/28/20 1238 Medication Information ferrous sulfate [...] in [address] Wray in [place]. Condition on discharge: Stable Discharge to: Home [...] know - She will follow with her CERTIFIED SOLID WASTE FACILITY OPERATOR in [place] - I will call Dr. 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 [facility]* Diagnosis Well woman exam with routine gynecological exam Routine gynecological examination documented in this encounter [facility] Healthcare[facility]* Diagnosis control counseling documented in this encounter [facility]* Diagnosis 12 weeks gestation of First trimester state, incidental Amniotic band syndrome Other problem associated with amniotic cavity and membranes, unspecified as to episode of care [facility] as [facility] finding ([facility]) documented in this encounter [facility] Work Phone: Evaluation note* Diagnosis History of miscarriage- Primary Personal history of other genital system and obstetric disorders Second trimester state, incidental 16 weeks gestation of STD exposure Vaginal discharge Leukorrhea, not specified as infective documented in this encounter [facility] HealthcareEvaluation note* Diagnosis Second trimester state, incidental 20 weeks gestation of Exposure to STD History of miscarriage Personal history of other genital system and obstetric disorders documented in this encounter [facility] Healthcare[facility]* Diagnosis Second trimester ([facility]) state, incidental 24 weeks gestation of ([facility]) HSV infection Herpes simplex without mention of complication H/O pre-eclampsia in prior , currently ([facility]) Diabetes mellitus screening Screening for diabetes mellitus Encounter for anatomic survey ([facility]) Encounter for anatomic survey documented in this encounter [facility] Healthcare[facility]* Diagnosis Size of fetus inconsistent with dates in second trimester ([facility])- Primary Second trimester ([facility]HS-HCC) state, incidental 28 weeks gestation of ([facility]) Mastitis Inflammatory disease of breast documented in this encounter [facility] HealthcareEvaluation note* Diagnosis Third trimester ([facility]) state, incidental 31 weeks gestation of ([facility]) Screening, , for anatomic survey ([facility]) Encounter for anatomic survey documented in this encounter [facility] HealthcareEvaluation note* Diagnosis Third trimester ([facility]) [...] , currently ([facility]) documented in this encounter [facility] HealthcareHospital course Narrative No data available for this section [facility] Dis[facility] instructions No data available for this section [facility] No data available for this section [facility] N[facility]* Imaging (Routine) - Pending Review Specialty Diagnoses / Procedures Referred By Joseph hoff Referred To Contact Radiology Diagnoses as incidental finding ([facility]) Procedures US OB limited 1+ fetuses US MAC OB imaging order Marco A Greene DO [address] [facility] [address] [facility] [address], [place] [address] Phone: tel: fax: Referral ID Status Reason Start Date Expiration Date Visits Requested Visits Authorized [id number] Pending Review Perform Procedure 08/03/2024 08/03/2025 1 1 [facility] Work Phone: Summary Purpose Family History No [...] Delivery: Was patient delivered between 37w0d - 39y3sirnzp? NO Surgical Operations & Procedures: Date of delivery: 04/26/2020 Delivery Type: without labor Anesthesia: Spinal anesthesia Laceration(s): n/a Delivery Complications: none EBL: 700 cc Pertinent Findings & Procedures: Information for the patient's : Ree Herrera [[id number]] female Weight: 2 lb 12.3 oz (1.256 kg) Apgars: Information for the patient's : Ree Herrera [[id number]] One Minute : 6 Five Minute : 7 Course: Magnesium sulfate and Procardia for PEWSF Infant: Female Blood Type/Rh: O POS Antibody Screen: Antibody Screen Date Value Ref Range Status 04/25/2020 NEG NA Final Rubella: No results found for: RUBELLAIGG Contraception: will be discussed with her provider at [place] : no VTE Prophylaxis: Not Indicated Meds: Amie Herrerajose Home Medication Instructions RANDA:[id number] Printed on:04/28/20 1238 Medication Information ferrous sulfate [...] in [address] Wray in [place]. Condition on discharge: Stable Discharge to: Home [...] know - She will follow with her CERTIFIED SOLID WASTE FACILITY OPERATOR in [place] - I will call Dr. Wray answering service at [phone] to update him with her condition, medications, [...] allowing us to care of you at [facility]. This time can be one of [...] over the next few weeks. Bleeding may waste picker and then decrease again around 7-10 [...] avoid constipation you may take a mild qcqd-lks-phcxims stool softener (such as colace) as recommended [...] clean your hands with an alcohol-based hand hims manager that contains at least 60% alcohol. Clean your hands often Wash your hands often with soap and water for at least 20 seconds, especially after blowing your nose, coughing, or sneezing; going to the bathroom; and before eating or preparing food. If soap and water are not readily available, use an alcohol-based hand hims manager with at least 60% alcohol, covering [...] healthcare provider to call the local or [facility] health department. Persons who are placed [...] isolation precautions should be made on a upww-qh-szbl basis, in consultation with healthcare providers and [facility] local health departments. Information on COVID-19 [...] respiratory tract signs and symptoms. Ways to [place] with Anxiety & Stress It is normal [...] an illness that was first found in [facility], in March 2019. It has [...] seen in people before. This virus spreads ozozsi-wp-lmryyz through droplets from coughing and sneezing. It [...] water aren't available, use an alcohol-based hand hims manager. Call 911 anytime you think you [...] of: July 27, 2019 Content Version: 12. [employer]. Care instructions adapted under license by your healthcare professional. If you have questions about a medical condition or this instruction, always ask your healthcare professional. [employer] disclaims any warranty or liability for your use of this information. General Recommendations for Routine Cleaning and Disinfection of Households Community members can practice routine cleaning of frequently touched surfaces (for example: tables, doorknobs, light switches, handles, desks, toilets, faucets, sinks) with household tape recording machine operator and EPA-registered disinfectants that are [...] appropriate. These supplies include tissues, paper towels, tape recording machine operator and EPA-registered disinfectants (see list [...] be used for other purposes. Consult the supervisor electronics processing's instructions for cleaning and disinfection products used. [...] used if appropriate for the surface. Follow supervisor electronics processing's instructions for application and proper ventilation. Check [...] o Products with EPA-approved emerging viral pathogens [facility] iconexternal icon are expected to be effective against COVID-19 based on data for harder to kill viruses. Follow the supervisor electronics processing's instructions for all cleaning and disinfection products (e.g., concentration, application method and contact time, etc.). Soft (porous) surfaces such as carpeted floor, rugs, and drapes Remove visible contamination if present and clean with appropriate tape recording machine operator indicated for use on these surfaces. After cleaning: Launder items as appropriate in accordance with the supervisor electronics processing's instructions. If possible, launder items using the [...] items as appropriate in accordance with the supervisor electronics processing's instructions. If possible, launder items using the warmest appropriate water setting for the items and dry items completely. Dirtylaundry from an ill person can be washed with other people's items. o Clean and disinfect clothes hampers according to guidance above for surfaces. If possible, consider placing a textile bag sewer that is either disposable (can be thrown away) or can be laundered. CDC has a list of EPA approved cleaning products on their website - https://www.cdc.gov/coronavirus/ 2019-ncov/community/home/cleaning-disinfection.html https://www.[employer].Workboard/Gpisc-Nntoyhdtbed-Bhpscivu-Products-List.pdf Grocery Stores with delivery and waste picker services: [employer]: Free waste picker at locations Delivery is $12.95 a month Website - [employer] [place]: Contact Center Consultant $2.95 (1st order is free) Delivery is $14.95 Website - [employer]: asbestos removal supervisor is free Delivery is $5.95 [employer]: asbestos removal supervisor is $4.95 Delivery is $9.95 Website [employer]: asbestos removal supervisor is $4.95 Delivery is $9.95 Website [employer]: Can be ordered for delivery and waste picker with [employer] Website - www.Plan[employer]: Free deliver for first 3 orders of $35 or more Website aldiorderTopia Will deliver from [employer], [employer], [employer], and [employer]. Annual membership is $99 Monthly membership is [...] 2. 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 Wray answering service at [phone] to update him with her condition, medications, [...] MD - 04/25/2020 11:32 PM EST MFM service control operator physician tracing review from earlier admission [...] concern for concealed abruption. I did not eligibility counselor the patient directly of the R/B/A [...] day, as when she first arrived to [facility] more moderate than minimal. Patient rajeev [...] section and content) DATE CREATED AUTHOR 04/18/2020 [facility] DATE CREATED AUTHOR AUTHOR'S ORGANIZ ATION 02/28/2021 [facility] DATE CREATED AUTHOR AUTHOR'S ORGANIZ ATION 11/16/2021 [facility] DATE CREATED AUTHOR AUTHOR'S ORGANIZ ATION 09/10/2022 [facility] DATE CREATED AUTHOR AUTHOR'S ORGANIZ ATION 11/13/2022 [facility] DATE CREATED AUTHOR AUTHOR'S ORGANIZ ATION 04/22/2024 [facility] DATE CREATED AUTHOR AUTHOR'S ORGANIZ ATION 01/13/2025 [facility] dical Specialists EPIC Reason for Visit [...] Care Team (unrecognized sect ion and content) Baby Nurse Relationship Specialty Start Date End Date Baljit Watts MD [address] [place] [id number] PCP - General Family Practice 11/07/21 Baby Nurse Relationship Specialty Start Date End Date LinkBaljit MD [address] [place] [address] PCP - General Family Practice 11/07/21 Baby Nurse Relationship Specialty Start Date End Date LinkBaljit MD [address] [place] [address] PCP - General Family Medicine 10/20/22 Baby Nurse Relationship Specialty Start Date End Date LinkBaljit MD [address] [place] [address] PCP - General Family Medicine 10/20/22 Baby Nurse Relationship Specialty Start Date End Date LinkBaljit MD [address] [place] [address] PCP - General Family Medicine 10/20/22 Baby Nurse Relationship Specialty Start Date End Date LinkBaljit MD [address] [place] [phone] PCP - General Family Medicine 10/20/22 Baby Nurse Relationship Specialty Start Date End Date LinkBaljit MD PCP - General Family Medicine 10/20/22 Baby Nurse Relationship Specialty Start Date End Date LinkBaljit MD PCP - General Family Medicine 10/20/22 Baby Nurse Relationship Specialty Start Date End Date LinkBaljit MD PCP - General Family Medicine 10/20/22 Baby Nurse Relationship Specialty Start Date End Date LinkBaljit MD PCP - General Family Medicine 10/20/22 Baby Nurse Relationship Specialty Start Date End Date Link, MD Baljit PCP - [facility] Medicine 10/20/22 Baby Nurse Relationship Specialty Start Date End Date Link, MD Baljit PCP - General [facility] Medicine 10/20/22 Baby Nurse Relationship Specialty Start Date End Date Link, MD Baljit PCP - [facility] Medicine 10/20/22 Baby Nurse Relationship Specialty Start Date End Date Link, MD Baljit PCP - [facility] 10/20/22 Baby Nurse Relationship Specialty Start Date End Date Link, MD Baljit PCP - General Family Medicine 10/20/22 Baby Nurse Relationship Specialty Start Date End Date Link, MD Baljit PCP - [facility] Medicine 10/20/22 Baby Nurse Relationship Specialty Start Date End Date Link, MD Baljit PCP - General [facility] Medicine 10/20/22 Baby Nurse Relationship Specialty Start Date End Date Link, MD Baljit PCP - General [facility] Medicine 10/20/22 Source Comments (unrecognize d section and content) In the event this informatio n is protected by the Federal Confidentiality of Alcohol and Drug Abuse Patient Records regulations: The Federal rules restrict any use of the information to criminally investigate or prosecute any alcohol or drug abuse patient.[facility] Hospital[facility] the event this information is protected by the Federal Confidentiality of Alcohol and Drug Abuse Patient Records regulations: The Federal rules restrict any use of the information to criminally investigate or prosecute any alcohol or drug abuse patient.[facility] FOR RECORDS PERTAINING TO PATIENTS WHO [...] BE BASED ON THE PRIMARY CLINICAL RECORDS. [facility]. provides no warranty or guarantee of the accuracy or completeness of information in this document.
--- NOTE | 2025-01-18 08:48 | PM.OBHP ---
OB - H&P: HPI History of Present Illness Chief complaint: DECREASED MOVEMENT : 3 Para: 2 Gestational age based on last menstrual period: 37 0/6 Narrative: 23 yo at 37wks presents for section due to ho severe preeclampsia, ho amniotic band syndrome, pt currently on vyvanse for adhd History of Present Dating criteria: LMP confirmed by 1st trimester US care: good care Ultrasounds: normal 1st trimester US and normal mid trimester US complications: preeclampsia Labs Blood type: O (+) positive Rubella: immune RPR/VDLR: nonreactive GBS status: negative HBsAG: negative Review of Systems ROS Status of ROS: 10 or more systems reviewed and unremarkable except as noted in history and below [facility] PFS Medical History (Updated 01/18/25 @ 08:53 by Marco A Greene DO) UTI (urinary tract infection) ?N39.0 - Urinary tract infection, site not specified (ICD-10) PIH ( induced hypertension), antepartum ?O13.9 - Gestational [-induced] hypertension without significant proteinuria, unspecified trimester (ICD-10) delivery ?O60.10X0 - labor with delivery, unspecified trimester, not applicable or unspecified (ICD-10) Surgical History Previous section ?Z98.891 - History of uterine scar from previous surgery (ICD-10) Social History Smoking status: Never smoker Meds Home Medications and Allergies Home Medications ?Medication ?Instructions ?Recorded ?Confirmed ?Type amoxicillin 875 mg-potassium 1 tab PO BID 10 days #20 tabs 04/24/23 Rx clavulanate 125 mg tablet lisdexamfetamine 40 mg capsule 40 mg PO DAILY 04/24/23 04/24/23 History (Vyvanse) Allergies Allergy/AdvReac Type Severity Reaction Status Date / Time No Known Drug Allergies Allergy Verified 04/24/23 16:36 Exam Constitutional Vital Signs, click to edit/add: Last Vital Signs Temp 96.6 F L 01/18/25 08:20 Pulse 109 H 01/18/25 08:20 BP 122/79 01/18/25 08:20 Documenting provider has reviewed patient's vital signs: yes Common normals: no apparent distress Respiratory Common normals: normal respiratory effort and clear to auscultation bilaterally Cardio Common normals: regular rate and regular rhythm GI Common normals: Normal to inspection, nondistended, normoactive bowel sounds present Extremity Common normals: no clubbing, cyanosis or edema and no calf tenderness OB - A/P Assessment and Plan (1) Intrauterine : (2) Gestational hypertension: (3) Amniotic band syndrome: Plan will proceed to or, consent obtained, mmc reviewed procedure reviewed
[2025-01-18] MEDS: 0.9 % SODIUM CHLORIDE 1,000 ML 125 ML IV ×2 (09:20→13:17)
[2025-01-18] MEDS: CEFAZOLIN SODIUM/DEXTROSE,ISO 2 GM/50 ML PIGGYBACK IV ×2 (10:15→17:27)
[2025-01-18 10:16] LABS: Hematocrit 29.3 % (36.0-48.0); Hemoglobin 9.8 g/dL (12.0-16.0); Mean Corpuscular HGB Conc 33.4 g/dL (29.9-35.2); Mean Corpuscular Hemoglobin 30.1 pg (26.7-34.0); Mean Corpuscular Volume 89.9 fL (81.0-99.0); Platelet Count 335 10^3/uL (150-450); Red Blood Count 3.26 10^6/uL (4.20-5.40); White Blood Count 11.9 10^3/uL (4.0-11.0)
[2025-01-18] MEDS: CITRIC ACID/SODIUM CITRATE 30 ML SOLUTION ORACIT SHOHL'S SOLN PO (10:16)
[2025-01-18] MEDS: FAMOTIDINE/PF 20 MG/2 ML VIAL IV (10:16)
[2025-01-18 10:19] LABS: Glucose Urine UA NEGATIVE (NEGATIVE)
[2025-01-18 10:35] LABS: Cannabinoid Screen Urine NEGATIVE (NEGATIVE); Methamphetamines Screen Urine NEGATIVE (NEGATIVE); Tricyclic Antidepressant Urine NEGATIVE (NEGATIVE)
[2025-01-18 10:40] LABS: Cast Seen? NONE SEEN #/LPF (NONE SEEN); Crystals Seen? None Seen #/HPF (None Seen); Urine Culture Indicated YES-LC
--- NOTE | 2025-01-18 11:19 | P.OBPRC_ITS ---
Procedure Pre-op/Post-op diagnoses: Pre-Op/Post-Op Diagnoses Operation Date: 01/18/25 10:00 <No data on this case meets the specified criteria> Procedure: Procedures Operation Date: 01/18/25 10:00 Actual Procedure Side Surgeon p Repeat with bilateral Salpingectomy Not Applicable Marco A Greene DO Career Technical Supervisor: Goldie Fairchild Estimated blood loss (mL): 575 Disposition: floor Anesthesia type: Spinal
--- NOTE | 2025-01-18 11:20 | P.ON_ITS ---
Brief Operative Note Date of procedure: 01/18/25 Pre-op diagnosis general: iup at term gestation, gestational hypertension, ho severe preeclampsia, ho amniotic band syndrome, desires permanent sterilization Post-op diagnosis: same as pre-op Procedure: NAME OF PROCEDURE: [ section with bilateral salpingectomy ] PROCEDURE: Patient was taken back to the Operating Room where she was given a spinal anesthesia with Duramorph without difficulty. She was prepped and draped in the normal sterile fashion. A Pfannenstiel skin incision was then made 2?cm above the symphysis pubis and carried down to underlying rectus fascia using a Bovie. The fascia was incised in the midline and extended laterally using Sutherland scissors. Two Ning clamps were placed on the superior aspect of the fascia and dissected off the underlying rectus muscles. The same was performed on the inferior aspect as well. The muscles were then in the midline. Peritoneum was identified and entered bluntly. The peritoneum was then extended superiorly and inferiorly with good visualization of the bladder. The bladder blade was inserted. Vesicouterine peritoneum was identified, tented up, and entered with Metzenbaum scissors. A bladder flap was then created digitally. The bladder blade was reinserted. A low transverse incision was made on the patient's uterus and extended laterally digitally. The was then delivered atraumatically after the bladder blade was removed in the cephalic position. The cord was clamped and cut. Cord blood was obtained. The infant was handed off to awaiting team. The patient's placenta was spontaneously delivered. The uterus was then exteriorized. The uterus was cleared of all clots and debris. The bladder blade was reinserted. The patient's uterine incision was closed using #0 Vicryl in a running lock fashion. Excellent hemostasis was assured.? The rt tube was identified and grasped with babock, the ligasure was used to transect and ligate the tube in its entirity, this was done on the contralateral side as well. The uterus was then returned to the patient's abdomen. The patient's abdomen was copiously irrigated using warm saline. Peritoneal gutters were cleared of all clots and debris. Again excellent hemostasis was assured. The patient's fascia was closed using #0 Vicryl in a running fashion. The patient's skin was closed using 4-0 Vicryl subcuticularly. The patient tolerated the procedure well. Sponge, lap, and needle counts were correct x2. The patient was taken to the Recovery Room in stable condition. Anesthesia: spinal Surgeon: Marco A Greene Aviation Electrical Technician: Goldie Fairchild Estimated blood loss (mL): 575 Pathology: other (tubes) Condition: stable Disposition: floor Urinary Catheter Management Urinary Catheter Management Urethral: Cath placed during this visit: no
[2025-01-18] MEDS: ENOXAPARIN SODIUM 40 MG/0.4 ML SYRINGE SUBQ (23:49)
[2025-01-19] MEDS: KETOROLAC TROMETHAMINE 30 MG/ML VIAL IVP ×3 (04:26→18:48)
[2025-01-19 04:30] VITALS: BP 126/73; TEMP 37.1; O2SAT 95
[2025-01-19 06:21] LABS: Hematocrit 25.2 % (36.0-48.0); Hemoglobin 8.7 g/dL (12.0-16.0); Immature Granulocytes Abs Auto 0.09 10^3/uL (0.00-0.03); Immature Granulocytes Pct Auto 0.5 % (0.0-0.5); Lymphocytes Absolute Auto 2.6 10^3/uL (1.2-3.8); Mean Corpuscular HGB Conc 34.5 g/dL (29.9-35.2); Mean Corpuscular Hemoglobin 31.1 pg (26.7-34.0); Mean Corpuscular Volume 90.0 fL (81.0-99.0); Platelet Count 324 10^3/uL (150-450); Red Blood Count 2.80 10^6/uL (4.20-5.40); White Blood Count 17.5 10^3/uL (4.0-11.0)
[2025-01-19 07:30] VITALS: TEMP 36.6
[2025-01-19 07:31] VITALS: BP 120/72; O2SAT 96
--- NOTE | 2025-01-19 08:01 | P.OBPN_ITS ---
OB - PN: Subj Subjective Patient comments: no complaints and pain well controlled [place] status: doing well Exam Constitutional Vital Signs, click to edit/add: Last Vital Signs Temp 98 F 01/19/25 07:30 Pulse 73 01/18/25 14:09 Resp 14 01/19/25 07:30 BP 120/72 01/19/25 07:31 Pulse Ox 96 01/19/25 07:31 O2 Del Method Room Air 01/19/25 07:30 Documenting provider has reviewed patient's vital signs: yes Common normals: no apparent distress Respiratory Common normals: normal respiratory effort and clear to auscultation bilaterally Cardio Common normals: regular rate and regular rhythm GI Common normals: Normal to inspection, nondistended, normoactive bowel sounds present Extremity Common normals: no clubbing, cyanosis or edema and no calf tenderness Results Labs Labs: Short CBC 01/18/25 01/19/25 Range/Units 09:18 06:17 WBC 11.9 H 17.5 H (4.0-11.0) 10^3/uL Hgb 9.8 L 8.7 L (12.0-16.0) g/dL Hct 29.3 L 25.2 L (36.0-48.0) % Plt Count 335 324 (150-450) 10^3/uL Urine 01/18/25 Range/Units 09:46 Urine Color Lt. yellow (YELLOW) Urine Clarity Clear (CLEAR) Urine pH 7.5 (5.0-9.0) Ur Specific [place] 1.015 (1.005-1.025) Urine Protein Negative (NEG/TRACE) mg/dL Urine Glucose (UA) Negative (NEGATIVE) mg/dL Urinary Catheter Management Urinary Catheter Management Urethral: Cath placed during this visit: yes, but has since been removed by the nurse Removal date: 01/19/25 Removal time: 04:24 OB - PN: A/P Assessment and Plan (1) Intrauterine : (2) Gestational hypertension: (3) Amniotic band syndrome: Plan - day: 1 Plan: routine postop care Time Spent with Patient Time: Total time spent is greater than 50% in coordination of care (as documented) at patient's floor/unit and/or counseling patient: Total time spent with greater than 50% in coordination of care (as documented) at patient's floor/unit and/or counseling patient: less than 15 minutes
[2025-01-19] MEDS: DOCUSATE SODIUM 100 MG CAPSULE PO ×2 (08:36→22:36)
[2025-01-19 12:04] VITALS: BP 126/79
[2025-01-19 12:05] VITALS: TEMP 36.7; O2SAT 99
[2025-01-20] MEDS: KETOROLAC TROMETHAMINE 30 MG/ML VIAL IVP ×2 (00:47→08:26)
[2025-01-20] MEDS: ENOXAPARIN SODIUM 40 MG/0.4 ML SYRINGE SUBQ (00:47)
[2025-01-20 03:36] VITALS: BP 127/67; TEMP 36.9; O2SAT 94
[2025-01-20] MEDS: DOCUSATE SODIUM 100 MG CAPSULE PO (08:26)
[2025-01-20 08:59] VITALS: TEMP 36.6
--- NOTE | 2025-01-20 12:41 | PM.OBDS ---
DS: Providers Provider Date of admission: 01/18/25 08:40 Primary care physician: Kathy Mccall DO Admitting clinician: Marco A Greene Attending physician on admission: Marco A Greene Consults: 01/18/25 Consult to Anesthesiology Routine Consulting Provider: Slava Guerrero Reason for consultation: spinal Attending physician on discharge: ANGELINA BLANDON Discharging clinician: ANGELINA BLANDON Anticipated date of discharge: 01/20/25 DS: Diagnosis Discharge Diagnosis (1) Gestational hypertension: Assessment and plan: 37 weeks with a history og severe preeclampsia Qualifiers: Trimester: third trimester Qualified Code(s): O13.3 - Gestational [-induced] hypertension without significant proteinuria, third trimester (2) Status post repeat low transverse section: Assessment and plan: 2 previous deliveries with gestational hypertension and a previous Plan doing well post-op. Follow up 01/25/2025 as scheduled in the clinic OB - DS: Summary Hospital Course Hospital Course: 24 yo now P3 at 37 weeks with a history of a previous presented for a repeat due to gestational hypertension. She has a history of severe preeclampsia and also a history of amniotic band syndrome. She is currently on vyvanse for ADHD. She underwent a RLTCS along with a bilateral salpingectomy due to desired sterilization without difficulty delivering a 6 lb female with Apgars of 7 and 9 at 1 and 5 minutes. She did well post-op with some delay in her bladder function with needing a hampton replaced for a while and then removed again. Other than that, her hospital course was uncomplicated. Peripartum Data - Procedures: Procedures Operation Date: 01/18/25 10:00 Actual Procedure Side Surgeon p Repeat with bilateral Salpingectomy Not Applicable Marco A Greene DO Peripartum Data - Vaginal Delivery Procedures: Procedures Operation Date: 01/18/25 10:00 Actual Procedure Side Surgeon p Repeat with bilateral Salpingectomy Not Applicable Marco A Greene DO Complications complications: none Infant Delivery method: section Gender: female Discharge plan: home Status at Discharge Functional status at discharge: independent ambulation Overall status at discharge: patient is progressing back to baseline Time Spent with Patient Time attestation: Total time spent providing and/or coordinating discharge services: Time spent: less than 30 minutes Exam Constitutional Vital Signs, click to edit/add: Last Vital Signs Temp 97.9 F 01/20/25 08:59 Pulse 73 01/18/25 14:09 Resp 16 01/20/25 08:59 BP 127/67 01/20/25 03:36 Pulse Ox 94 L 01/20/25 03:36 O2 Del Method Room Air 01/20/25 01:04 Documenting provider has reviewed patient's vital signs: yes Common normals: no apparent distress and oriented x3 General appearance: cooperative and well kempt HENMT Common normals: normocephalic Neck & C-Spine Common normals: full ROM and supple Respiratory Common normals: normal respiratory effort and no retractions Cardio Common normals: regular rate and regular rhythm GI Common normals: Normal to inspection, nondistended, normoactive bowel sounds present and soft to palpation Other: fundus below the umbilicus and non-tender, incision- clean/ dry and intact Common normals: no CVA tenderness Uterus palpation: other (fundus firm and non-tender below the umbilicus) Back & Pelvis Common normals: no CVA tenderness Extremity Common normals: no pedal edema Neuro Common normals: oriented x3 Psych Common normals: mental status grossly normal, thought process normal and affect normal Discharge Plan Discharge Disposition: Home, Self-Care Condition: Good Discharge Medications: New ibuprofen 800 mg tablet 800 mg PO Q8H PRN (Reason: pain) 14 Days Qty: 40 0RF oxycodone-acetaminophen [Percocet] 5-325 mg tablet 1 tab PO Q6H PRN (Reason: pain) 5 Days Qty: 20 0RF Rx Instructions: g89.18 docusate sodium [Colace] 100 mg capsule 100 mg PO BID Qty: 60 0RF ferrous sulfate 325 mg (65 mg iron) tablet 325 mg PO BID Qty: 180 0RF Continued lisdexamfetamine [Vyvanse] 40 mg capsule 40 mg PO DAILY amoxicillin-pot clavulanate 875-125 mg tablet 1 tab PO BID 10 Days Qty: 20 0RF Activity: increase activity as tolerated Diet: advance to your usual diet Print Language: Spanish Forms: Delivery - Discharge, Portal Instructions Follow Up Appointments: as scheduled in office on 01/25/2025 Discharge Date/Time: 01/20/25 13:12 Discharge location: home
== END 2025-01-20 13:12 | disposition home or self-care (01) | DRG 539 ==
PROVIDERS: Admitting Provider Obstetrics & Gynecology; PCP Family Medicine; Visit Provider Obstetrics & Gynecology
PROC: 10D00Z1 Extraction of Products of Conception, Low, Open Approach (ICD-10-PCS; CPT 59514; principal; 2025-01-18 10:00)
DX: O13.4 Gestational [pregnancy-induced] hypertension without significant proteinuria, complicating childbirth (principal); O34.211 Maternal care for low transverse scar from previous cesarean delivery; O36.8130 Decreased fetal movements, third trimester, not applicable or unspecified; Z3A.37 37 weeks gestation of pregnancy; Z37.0 Single live birth; O99.344 Other mental disorders complicating childbirth; F90.9 Attention-deficit hyperactivity disorder, unspecified type; Z87.440 Personal history of urinary (tract) infections; Z87.59 Personal history of other complications of pregnancy, childbirth and the puerperium; Z79.899 Other long term (current) drug therapy
CPT/HCPCS: 36415; 59025; 64488; 80307; 81001; 85025; 85027; 86850; 86900; 86901; 87086; 94667; 94668; J0131; J0665; J0690; J1100; J1200; J1650; J1885; J2274; J2371; J2405; J2590; J3490

== ENCOUNTER 2025-01-24 07:53 | Outpatient (OUT) | payer OTHER, SELFPAY ==
--- NOTE | 2025-01-24 15:00 | PC.NURSE ---
Johana and 6 day old daughter, Guillaume arrive for follow up. Friend attends also. Johana presents with c/o itchy rash over incision that continues to creep higher towards umbilicus. [facility] Dr Greene's office were not able to help her. Johana states baby literally feeds all the time Milk in and nipples are intact. No evidence of open area, blisters or compression stripes. Johana with VSS and assessment WNL except for incision area. Bright red rash, small blisters noted in areas. Pt reports intense itching. red dots beginning to creep upwards towards umbilicus. [facility] has used anti-itch cream twice and a medication for eczema without relief. Steri strips peeling off and loosening. TC to Dr Bolanos (covering Dr Greene) and given update, takes pt information and [facility] prescription into pharmacy of choice for pt. Instructed to remove any steri strips that are loose as that may contribute to rash. Pt relieved with prescription being called in and this machine sign writer removes all except 4 steri strips. last 4 steri strips strongly adhered. Incision clean, no drainage or area that appears to drain or open. Skin immediately around incision is clear without irritation. Re-enforced daily shower, drying and airing incision. Aware to call if s/s of infection or if rash becomes worse. Deja Galaviz with assessment WNL, VSS and rooting for feed. Mom reports feeds at 1 breast for 30 minutes, every 2 hours during the day and every 1.5 at night. Does not like to be in bedside bassinet for sleep. Weight is up 2 oz from discharge weight. Output is 8+ wets and 5+ yellow seedy stools. Diaper changed for wet and stool during assessment. Baby to breast, reminded mom of secure positioning and cross cradle latching. does well, wide gape, deep latch and audible swallows noted. Nurses 10 minutes and becomes sleepy, switched to 2nd breast for 10 minutes and released latch. Burped, rooting on hands, returned to first side and nursed for 3 more minutes. Switch nursing kept more vigorous with feed, mom reports more comfort as 1 breast not too full. States will change way feeds and hopes to get better sleep during the night. No further concerns noted at this time. Infant oral tethers discussed and do not appear to interfere with feeding. Mom answers questions for FLIP evaluation, tally obtained and LATCH score is 8 (criteria is if less than 9, No intervention needed, dysfunction prediction less than 55%). Mother feels good about and infant effort. Will call as needed or if wants to re-visit need for intervention of tongue/lip ties. Aware to call LC as needed. Aware of MOMS group. Home ambulatory without complaint or questions.
[2025-01-24 15:01] VITALS: BP 123/76; PULSE 84; TEMP 36.8; O2SAT 97
== END 2025-01-24 15:07 | disposition home or self-care (01) ==
LOC: FBCO 07:54
PROVIDERS: PCP Family Medicine; Visit Provider Obstetrics & Gynecology
DX: Z39.1 Encounter for care and examination of lactating mother (principal)